=== PATIENT | female | born 2000 | race Caucasian/White ===

== ENCOUNTER 2022-04-23 23:02 | Emergency (ER) | payer OTHER, MEDICARE, MEDICAID, SELFPAY ==
[2022-04-23 23:07] VITALS: BP 134/89; PULSE 87; RESP 16; TEMP 37.3; O2SAT 98; BMI 36.5
--- NOTE | 2022-04-23 23:21 | ED_ITS ---
HPI - General Adult General Time Seen by Provider: 23:21 Date Seen: 04/23/22 Chief complaint: Abdominal Pain Stated complaint: Abdominal Pain Time Seen by Provider: 04/23/22 23:16 Source: patient Mode of arrival: ambulatory Limitations: no limitations History of Present Illness HPI narrative: Patient is a 22 year white female who has presenting with upset stomach, she has bothered her on and off over the last 4-6 weeks. She was sent home with some nausea medicine from [facility] within 48 hours, where she reports she had lab studies urinalysis and a CT scan of her abdomen which were unremarkable by her report. She has a history of behavioral disorder, manipulated behavior, and other mental health visits in the past chart and reviewing. She denies fever, chills, COVID symptoms, he dysuria, hematuria, melena, diarrhea, chest pain, shortness of breath, cough, sore throat. She states that should get waves of discomfort from her thighs up across her chest to her arms. She has not lost weight, has not had night sweats. She is in [place]. Her mother knows that she is here. Related Data Home Medications Medication Instructions Recorded Confirmed ondansetron 4 mg disintegrating mg 04/23/22 tablet Allergies Allergy/AdvReac Type Severity Reaction Status Date / Time No Known Drug Allergies Allergy Verified 04/23/22 23:12 Review of Systems Status of ROS: Reports: 10 or more systems reviewed and unremarkable except as noted in History and below [facility] Social History Smoking Status: Never smoker How often do you have a drink containing alcohol: never AUDIT-C Alcohol total score: 0 Non-prescribed substance use: denies use Exam Narrative: Exam Narrative: Objective: Patient's vital signs unremarkable, she is in no apparent distress, alert orient x3, noncyanotic Neck is supple Chest clear, pulse regular, abdomen soft benign nontender no rebound no masses Extremities good perfusion neurologic grossly nonfocal, no skin rashes no Const: Vital Signs, click to edit/add: Vital Signs - 24 hr 04/23/22 23:07 Temperature 99.1 F Pulse Rate [Left P ulse Oximeter] 87 Respiratory Rate 16 Blood Pressure [Ri ght Upper Arm] 134/89 Pulse Oximetry 98 Oxygen Delivery Me thod Room Air Course Vital Signs Vital signs: Initial Vital Signs Temperature 99.1 F 04/23/22 23:07 Temperature Source Temporal Artery Scan 04/23/22 23:07 Pulse Rate 87 04/23/22 23:07 Respiratory Rate 16 04/23/22 23:07 Blood Pressure 134/89 04/23/22 23:07 Blood Pressure Mean 104 04/23/22 23:07 Blood Pressure Position Sitting 04/23/22 23:07 Pulse Oximetry 98 04/23/22 23:07 Oxygen Delivery Method 04/23/22 23:07 Vital Signs Temperature 99.1 F 04/23/22 23:07 Pulse Rate 87 04/23/22 23:07 Respiratory Rate 16 04/23/22 23:07 Blood Pressure 134/89 04/23/22 23:07 Pulse Oximetry 98 04/23/22 23:07 Oxygen Delivery Method 04/23/22 23:07 Temperature 99.1 F 04/23/22 23:07 Pulse Rate 66 04/24/22 00:00 Respiratory Rate 16 04/24/22 00:00 Blood Pressure 130/72 04/24/22 00:00 Pulse Oximetry 99 04/24/22 00:00 Oxygen Delivery Method 04/24/22 00:00 Medical Decision Making MDM Narrative Medical decision making narrative: Patient has a complex history of emotional issues but also some abdominal symptoms over the last many weeks. She had a recent workup including lab studies CT scan. I would choose not repeated imaging study but I think repeating her lab studies may be reasonable to look at her urinalysis, electrolytes, CBC. Give her Ativan orally for her stomach and see if that helps her, certainly this could be anxiety related component as well with psychological overlay to her physical symptoms. If her labs are reassuring I think we can let her go home. She can arrange a ride home. Will need followup with regular doctor within the next few days. Addendum: The patient has very reassuring labs including a negative CRP normal white count and hemoglobin normal differential air profile is unremarkable as well. , light activity, light diet, follow-up with primary care within the next couple of days. Return to ED sooner problems or concerns. test pending as her test if this is negative she will be allowed to go home. Lab Data Labs: Lab Results 04/23/22 04/23/22 04/23/22 Range/Units 23:30 23:30 23:30 WBC 8.99 (4.50-11.00) K/uL RBC 4.38 (4.00-5.20) m/uL Hgb 11.5 L (12.0-16.0) gm/dL Hct 35.1 (33.0-51.0) % MCV 80 (80-100) fL MCH 26 (26-34) pg MCHC 33 (32-36) gm/dL RDW Coeff of Heladio 13.0 (11.5-15.5) % Plt Count 334 (140-440) K/uL Neut % (Auto) 56.5 (42.0-72.0) % Lymph % (Auto) 36.2 (20-44) % [place] % (Auto) 5.9 (0.0-11.0) % Eos % (Auto) 0.8 (0.0-7.0) % Baso % (Auto) 0.3 (0.0-3.0) % Neut # (Auto) 5.08 (1.7-7.0) K/uL Lymph # (Auto) 3.25 H (0.90-2.90) K/uL [place] # (Auto) 0.50 (0.00-0.90) K/UL Eos # (Auto) 0.07 (0.00-0.50) K/uL Baso # (Auto) 0.03 (0.00-0.30) K/uL Abs Immat Gran (auto) 0.03 (0.00-0.30) K/uL Sodium 139 (135-149) mmol/L Potassium 3.8 (3.6-5.1) mmol/L Chloride 105 (96-114) mmol/L Carbon Dioxide 23 (20-32) mmol/L BUN 9 (5-24) mg/dL Creatinine 0.7 (0.5-1.5) mg/dL Estimated Creat Clear 129.32 Estimated GFR 127 ml/min Glucose 89 (60-115) mg/dL Calcium 9.3 (8.4-10.6) mg/dL Total Bilirubin 0.5 (0.1-1.5) mg/dL Direct Bilirubin 0.1 (0.0-0.5) mg/dL AST 17 (12-35) U/L ALT 15 (4-35) U/L Alkaline Phosphatase 118 (40-150) U/L C-Reactive Protein < 0.5 L (0.5-1.0) mg/dL Total Protein 7.4 (6.0-8.3) g/dL Albumin 4.5 (3.3-5.0) g/dL Amylase 56 (18-89) U/L HCG, Qual Negative (Negative) Discharge Plan Discharge Clinical Impression: Chronic upset stomach Patient Disposition: Home w/ Parent or Adult Condition: Improved Additional Instructions: Light activity, light diet, follow-up with primary care in the next few days. Return to ED sooner problems or concerns. Activity Level: Light activity Discharge Diet: Regular Prescriptions: No Action ondansetron 4 mg tablet,disintegrating Follow Up/Referrals: Provider,Not a Local [Primary Care Provider] - Stand Alone Forms: [employer] Info Instructions
[2022-04-23] MEDS: LORazepam 1 MG TABLET PO (23:26)
[2022-04-23 23:38] LABS: Basophils Absolute Auto 0.03 K/uL (0.00-0.30); Basophils Percent Auto 0.3 % (0.0-3.0); Eosinophils Absolute Auto 0.07 K/uL (0.00-0.50); Eosinophils Percent Auto 0.8 % (0.0-7.0); Hematocrit 35.1 % (33.0-51.0); Hemoglobin* 11.5 gm/dL (12.0-16.0); Immature Granulocytes Abs Auto 0.03 K/uL (0.00-0.30); Lymphocytes Absolute Auto 3.25 K/uL (0.90-2.90); Lymphocytes Percent Auto 36.2 % (20-44); Mean Corpuscular HGB Conc 33 gm/dL (32-36); Mean Corpuscular Hemoglobin 26 pg (26-34); Mean Corpuscular Volume 80 fL (80-100); Monocytes Percent Auto 5.9 % (0.0-11.0); Neutrophils Absolute Auto 5.08 K/uL (1.7-7.0); Neutrophils Percent Auto 56.5 % (42.0-72.0); Platelet Count* 334 K/uL (140-440); Red Blood Count 4.38 m/uL (4.00-5.20); White Blood Count* 8.99 K/uL (4.50-11.00)
--- OUTSIDE RECORDS SUMMARY | 2022-04-23 23:38 | XMS_ITS | Encounter Summary ---
:2000 Author Organization [place] Address [address] [facility] [place] [address] Care Team Providers Name Role Phone Tc Jama MD Unavailable Eda Duarte MD Unavailable Mike Sherwood MD Unavailable [phone] Navid Paige MD Unavailable No Ref-Primary, Physician Primary Care Provider [phone] Alber Estrada PA-C Unavailable [phone] Reason for Visit Reason Comments Urgent Care Sore throat, cough, cannot s wallow food, chest congestion and left ear plugged which started today. Pt took Covid test today and it was negative. Encounter Details Date Type Department Care Team Description 04/03/2022 Office Visit [facility] Jairo Hackett M D Throat pain (Primary Dx); Urgent Care [facility] [address] [facility] Cough; [address] [facility] [place] [phone] Social History Tobacco Use Types Packs/Day Years Used Date Never Smoker 0 0 Smokeless Tobacco: Never Used Comments: no smokers in household Alcohol Use Standard Drinks/Week Comments No 0 (1 standard drink = 0.6 oz pure alcoho l) Alcohol Habits Answer Date Recorded How often do you have a drink containing alcohol? Never 12/07/2018 How many drinks containing alcohol do you have on a Patient refused 12/07/2018 typical day when you are drinking? How often do you have six or more drinks on one Never 12/07/2018 occasion? Comment: Not asked Social Isolation Answer Date Recorded In a typical week, how many times do you More than three marin es a week 12/07/2018 talk on the phone with family, friends, or neighbors? How often do you get together with friends Three times a wee k 12/07/2018 or relatives? How often do you attend lutheran or Never 2018 restorationist services? Do you belong to any clubs or No 12/07/2018 organizations such as lutheran groups, unions, fraternal or athletic groups, or school groups? How often do you attend meetings of the Never 12/07/2018 clubs or organizations you belong to? Are you now , , , Patient refused 12/07/2018 , never or living with a partner? Physical Activity Answer Date Recorded On average, how many days per week do you engage in moderate to 3 days 09/05/2021 strenuous exercise (like walking fast, running, jogging, dancing, swimming, biking, or other activities that cause a light or heavy sweat)? On average, how many minutes do you engage in exercise at th is 30 min 09/05/2021 level? Stress Answer Date Recorded Do you feel stress - tense, restless, nervous, or anxious, N ot at all 12/07/2018 or unable to sleep at night because your mind is troubled all the time - these days? Food Insecurity Answer Date Recorded Within the past 12 months, you worried that your food would Never true 09/05/2021 run out before you got money to buy more. Within the past 12 months, the food you bought just didn't N ever true 09/05/2021 last and you didn't have money to get more. Transportation Needs Answer Date Recorded In the past 12 months, has lack of transportation kept you f rom No 09/05/2021 medical appointments or from getting medications? In the past 12 months, has lack of transportation kept you f rom No 12/07/2018 meetings, work, or getting things needed for daily living? Housing Stability Answer Date Recorded In the last 12 months, was there a time when you were not No 09/05/2021 able to pay the mortgage or rent on time? In the last 12 months, how many places have you lived? Not a sked In the last 12 months, was there a time when you did not hav e No 09/05/[address] or slept in a fdc (including now)? Education Answer Date Recorded What is the highest level of school you have completed or 10 th grade 12/07/2018 the highest degree you have received? Sex Assigned at Date Recorded Female 09/04/2021 9:00 PM [employer] COVID-19 Exposure Response Date Recorded In the last 10 days, have you been in contact with No / Unsu re 04/03/2022 4:29 PM CDT someone who was confirmed or suspected to have Coronavirus/COVID-19? documented as of this encounter Last Filed Vital Signs Vital Sign Reading Time Taken Comments Blood Pressure 136/84 04/03/2022 4:41 PM CDT Pulse 99 04/03/2022 4:41 PM CDT Temperature 36.9 ??C (98.4 ??F) 04/03/2022 4:41 PM CDT Respiratory Rate - - Oxygen Saturation 98% 04/03/2022 4:41 PM CDT Inhaled Oxygen Concentration - - Weight - - Height - - Body Mass Index - - documented in this encounter Patient Instructions Patient InstructionsJairo Hackett MD - 04/03/2022 4:30 PM CDT Okay to take tylenol and ibuprofen for discomfort Take full course of Augmentin for bronchitis/lower respiratory tract infection and sinus infection Okay to take tessalon perles to help with cough AttachmentsThe following attachments cannot be sent through Care Everywhere. Bronchitis, Antibiotic Treatment (Adult) (Congolese)documented in this encounter Progress Notes Jairo Hackett MD - 04/03/2022 4:30 PM CDT SUBJECTIVE: Mahi Faye is a 22 year old female presenting with a chief complaint of sore throat, cough, congestion and left ear plugged. Unable to swallow food. Fever started today. Onset of symptoms was 2 weeks. Course of illness is worsening. Severity moderate Current and Associated symptoms: cough Treatment measures tried include Tylenol/Ibuprofen, Fluids and Rest. Predisposing factors include None. Home rapid COVID test negative today Completed COVID vaccinations, boosted Has been sick for almost 2 weeks, cough persisting. Developed fever today. Past Medical History: Diagnosis Date ??? ADHD (attention deficit hyperactivity disorder) ??? 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 Obesity due to excess calories ??? Seasonal allergies ??? Tonsillar abscess, S/P drainage 07/16/2014 Current Outpatient Medications Medication Sig Dispense Refill ??? Condoms - Female (FC FEMALE CONDOM) MISC Use with every intercourse not to be use with a male condom 5 each ??? Melatonin 10 MG TABS tablet Take 10 mg by mouth nightly as needed for sleep ??? QUEtiapine (SEROQUEL) 300 MG tablet Take 300 mg by mouth At Bedtime ??? QUEtiapine (SEROQUEL) 50 MG tablet Take 50 mg by mouth every 4 hours as needed Social History Tobacco Use ??? Smoking status: Never Smoker ??? Smokeless tobacco: Never Used ??? Tobacco comment: no smokers in household Substance Use Topics ??? Alcohol use: No ROS: Review of systems negative except as stated above. OBJECTIVE: BP 136/84 (BP Location: Right arm, Patient Position: Sitting, Cuff Size: Adult Large) Pulse 99 Temp 98.4 ??F (36.9 ??C) (Oral) SpO2 98% GENERAL APPEARANCE: healthy, alert and no distress EYES: EOMI, PERRL, conjunctiva clear HENT: ear canals and TM's normal. Nose and mouth without ulcers, erythema or lesions RESP: lungs clear to auscultation - no rales, rhonchi or wheezes CV: regular rates and rhythm, normal S1 S2, no murmur noted PSYCH: mentation appears normal and affect normal/bright Results for orders placed or performed in visit on 04/03/22 Streptococcus A Rapid Screen w/Reflex to PCR Status: Normal Specimen: Throat; Swab Result Value Ref Range Group A Strep antigen Negative Negative Influenza A & B Antigen Status: Normal Specimen: Nasopharyngeal; Swab Result Value Ref Range Influenza A antigen Negative Negative Influenza B antigen Negative Negative Narrative Test results must be correlated with clinical data. If necessary, results should be confirmed by a molecular assay or viral culture. ASSESSMENT/PLAN: (R07.0) Throat pain (primary encounter diagnosis) Plan: Streptococcus A Rapid Screen w/Reflex to PCR, Influenza A & B Antigen, Group A Streptococcus PCR Throat Swab (R05.9) Cough Plan: Influenza A & B Antigen, benzonatate (TESSALON) 200 MG capsule (J22) Lower respiratory tract infection Comment: prolonged symptoms Plan: amoxicillin-clavulanate (AUGMENTIN) 875-125 MG tablet Reassurance given, reviewed symptomatic treatment with tylenol, ibuprofen, plenty of fluids and rest. RX Augmentin given for lower respiratory tract infection and mild sinus infection due to prolong and worsening symptoms. Reviewed that Augmentin will already have coverage for strep infection (throat c ulture pending). RX tessalon perles given for cough Follow up with primary provider if no improvement of symptoms in 1 week Jairo Hackett MD April 03, 2022 5:45 PM documented in this encounter Plan of Treatment Not on filedocumented as of this encounter Procedures Procedure Name Priority Date/Time Associated Comments Diagnosis INFLUENZA A/B ANTIGEN Routine 04/03/2022 4:46 PM Throat pain Results for this CDT Cough procedure are i n the results section. STREPTOCOCCUS A RAPID Routine 04/03/2022 4:32 PM Throat pain Results for this SCREEN W REFELX TO PCR CDT proce dure are in the results section. GROUP A STREPTOCOCCUS Routine 04/03/2022 4:32 PM Throat pain Results for this PCR THROAT SWAB CDT procedure ar e in the results section. documented in this encounter Results Influenza A & B Antigen (04/03/2022 4:46 PM CDT) Analysis Performed At Patho logist Time Signature Influenza A Negative Negative 04/03/2022 [facility] antigen 5:22 PM CDT Influenza B Negative Negative 04/03/2022 [facility] antigen 5:22 PM CDT Specimen Anatomical Location / Collection Method Collection Marin e Received Time (Source) Laterality / Volume Swab NASOPHARYNGEAL Non-blood 04/03/2022 4:46 04/03/2022 5:03 STRUCTURE / Unknown Collection / PM CDT PM CDT Unknown Narrative [facility] - 04/03/2022 5:22 PM CDT Test results must be correlated with cli nical data. If necessary, results should be confirmed by a molecular assay or viral culture. Jairo Hackett MD LAB - MICRO GENERAL ORDERABL ES Performing Organization Address [facility] Phon e Number [place] [address] [address] [facility] Lab (no room number, 1st floor of clinic) [place] [address], [facility] [address] [facility] Lab (no room number, 1st floor of clinic) Group A Streptococcus PCR Throat Swab (04/03/2022 4:32 PM CDT) [facility] Method Time Signature Group A strep Not Detected Not Detected 04/04/2022 [facility] by PCR 6:14 PM CDT LABORATORY Specimen Anatomical Collection Method Collection Time Receive d Time (Source) Location / / Volume Laterality Swab STRUCTURE OF Non-blood 04/03/2022 4:32 PM 2 5:15 ANTERIOR PORTION Collection / CDT PM CDT OF NECK / Unknown Unknown Narrative [facility] - 04/04/2022 6:14 PM C DT The Xpert Xpress Strep A test, performed on the [employer]?? Instrument Systems, is a rapid, qualitative in vitro diagnostic t est for the detection of Streptococcus pyogenes (Group A ? - hemolytic Streptococcus, Strep A) in thr oat swab specimens from patients with signs and symptoms of pharyngitis. The Xpert X press Strep A test can be used as an aid in the diagnosis of Group A Streptococcal p haryngitis. The assay is not intended to monitor treatment for Group A Streptococ cus infections. The Xpert Xpress Strep A test utilizes an automated real-time polymera se chain reaction (PCR) to detect Streptococcus pyogenes DNA. Jairo Hackett MD LAB - MICRO GENERAL ORDERABL ES Performing Organization Address [facility] Phon e Number [facility] [place] [address] Diag. Lab [address] [facility], [address] Streptococcus A Rapid Screen w/Reflex to PCR (04/03/2022 4:32 PM CDT) Analysis Performed At Patho logist Time Signature Group A Strep Negative Negative 04/03/2022 [facility] antigen 5:15 PM CDT Specimen Anatomical Collection Method Collection Time Receive d Time (Source) Location / / Volume Laterality Swab STRUCTURE OF Non-blood 04/03/2022 4:32 PM 5:03 ANTERIOR PORTION Collection / CDT PM CDT OF NECK / Unknown Unknown Jairo Hackett MD LAB - MICRO GENERAL ORDERABL ES Performing Organization Address City/State/ZIP Code Phon [place] [address] [address] [facility] Lab (no room number, 1st floor of clinic) [place] [address], [facility] [address] [facility] Lab (no room number, 1st floor of clinic) documented in this encounter Visit Diagnoses Diagnosis Throat pain - Primary Cough Lower respiratory tract infection Other diseases of respiratory system, no t elsewhere classified documented in this encounter Additional Health Concerns Assessment Noted Time PHQ-9 Depression Total Score: 6 09/05/2021 1:00 PM [employer] documented as of this encounter Care Teams [employer] Consultant Relationship Specialty Start Date End Date No Ref-Primary, PCP - General 08/23/21 Physician Tc Jama MD Pediatric Surgery 02/14/[address] [place] [address] Eda Duarte Assigned Surgical Provider 10/02/20 MD Alex [address] [facility] [address] [place] [address] Mike Sherwood Assigned Sleep Provider 01/31/21 MD Navid [address] [place] [address] Navid Paige, Assigned Musculoskeletal 03/16/21 MD Provider [address] [place] [address] Alber Estrada Assigned PCP 09/07/21 KARIN Lagunas [address] [place] [address] documented as of this encounter
--- OUTSIDE RECORDS SUMMARY | 2022-04-23 23:38 | XMS_ITS | Encounter Summary ---
:2000 Author Organization [place] Address [address] [place] [address] Care Team Providers Name Role Phone Tc Jama MD Unavailable Eda Duarte MD Unavailable Mike Sherwood MD Unavailable [phone] Navid Paige MD Unavailable No Ref-Primary, Physician Primary Care Provider [phone] Alber Estrada PA-C Unavailable [phone] Encounter Details Date Type Department Care Team Description 04/21/2022 Travel Social History Tobacco Use Types Packs/Day Years [...] or relatives? How often do you attend orthodoxy or Never 2018 judaism services? Do you belong to any clubs or No 12/07/2018 organizations such as orthodoxy groups, unions, fraternal or athletic groups, or [...] place to sleep or slept in a senior living (including now)? Education Answer Date Recorded What is the highest level of school you have completed or 10 th grade 12/07/2018 the highest degree you have received? Sex Assigned at Date Recorded Female 09/04/2021 9:00 PM [employer] COVID-19 Exposure Response Date Recorded In the last 10 days, have you been in contact with No / Unsu re 04/21/2022 7:53 PM CDT someone who was confirmed or suspected to have Coronavirus/COVID-19? documented as of this encounter Plan of Treatment Not on filedocumented as of this encounter Visit Diagnoses Not on filedocumented in this encounter Additional Health Concerns Infection Onset Date Last Indicated Resolved Time Rule Out COVID-19 04/21/2022 04/21/2022 04/21/2022 8:5 7 PM CDT Assessment Noted Time PHQ-9 Depression Total Score: 6 09/05/2021 1:00 PM [employer] documented as of this encounter Care Teams Custodial Worker Relationship Specialty Start Date End Date No Ref-Primary, PCP - General 08/23/21 Physician Tc Jama MD Pediatric Surgery 02/14/[address] [place] [address] Eda Duarte Assigned Surgical Provider 10/02/20 MD Alex [address] [facility] [address] [place] [address] Mike Sherwood Assigned Sleep Provider 01/31/21 MD Navid [address] [place] [address] Navid Paige, Assigned Musculoskeletal 03/16/21 MD Provider [address] [place] [address] Alber Estrada Assigned PCP 09/07/21 KARIN Lagunas [address] [address] [place] [address] documented as of this encounter
--- OUTSIDE RECORDS SUMMARY | 2022-04-23 23:38 | XMS_ITS | Clinical Summary ---
:2002 Author Organization [facility] Address [address] [place] [address] Care Team Providers Name Role Phone Tc Jama MD Unavailable Eda Duarte MD Unavailable Mike Sherwood MD Unavailable [phone] Navid Paige MD Unavailable No Ref-Primary, Physician Primary Care Provider Alber Estrada PA-C Unavailable [phone] Allergies Active Allergy Reactions Severity Noted Date Comments No Known Drug Allergies 08/13/2009 Medications Medication Sig Dispensed Refills Start Date End Date Status QUEtiapine Take 300 mg by 0 Acti ve (SEROQUEL) 300 MG mouth At Bedtime tablet Melatonin 10 MG Take 10 mg by 0 Active TABS tablet mouth nightly as needed for sleep QUEtiapine Take 50 mg by 0 Activ e (SEROQUEL) 50 MG mouth every 4 tablet hours as needed Condoms - Female Use with every 5 each 11 09/05/2021 Active (FC FEMALE CONDOM) intercourse not to MISCIndications: be use with a male Annual visit for condom general adult medical examination with abnormal findings benzonatate Take 1 capsule 30 capsule 0 04/03/2022 A ctive (TESSALON) 200 MG (200 mg) by mouth capsuleIndications 3 times daily as : Cough needed for cough ondansetron Take 1 tablet (4 10 tablet 0 04/22/2022 04/25/2022 Active (ZOFRAN ODT) 4 MG mg) by mouth every ODT tab 8 hours as needed for nausea or vomiting amoxicillin-clavul Take 1 tablet by 20 tablet 0 04/03/2022 anate (AUGMENTIN) mouth 2 times 875-125 MG daily for 10 days tabletIndications: Lower respiratory tract infection Hospital, Clinic, or Other Ordered Dose Route Frequency Start Date End Date Status Facility Administered Medication etonogestrel (NEXPLANON) 68 mg SD ONCE 07/16/2020 Active subdermal implant 68 mgIndications: Insertion of implantable subdermal contraceptive Active Problems Patient Care Coordination Note Formatting of this note might be differe nt from the original. 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 Nocturia 09/17/2020 Snores 09/17/2020 Moderate major depression 06/26/2020 Suicidal ideations 03/15/2020 S/P surgical removal of pilonidal cyst 01/09/2020 Pilonidal disease 12/20/2019 Overview: Added automatically from request for tania angie [id number] Pilonidal sinus 11/23/2019 Overview: Added automatically from request for tania angie [id number] Slow transit constipation 11/16/2019 Mild anemia 09/28/2018 JANETH (generalized anxiety disorder) 09/14/2016 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 06/03/2011 Encounters Date Type Specialty Care Team Description 04/21/2022 - Emergency EMERGENCY MEDICINE Madhu Hall sea and vomiting, unspecified vomiting type; 04/22/2022 MD Lisy Abdominal pain, epigastric SalRemberto temple MD 04/21/2022 Travel 04/03/2022 Office Visit Urgent Care Jairo Hackett MD Throat pain (Primary Dx); Cough; Lower respirato ry tract infection 04/03/2022 Travel from Last 3 Months Immunizations Name Administration Dates Next Due Comvax (HIB/HepB) 03/26/2003, 2002, 2002 DTAP (<7y) 03/29/2007, 09/24/2003, 2002, 2002, 2002 [id number] Novel Flu- Nasal 06/04/2009 HEPA 09/27/2006, 03/30/2006 HPV 10/21/2015, 05/28/2015, 03/11/2015 Influenza (H1N1) 07/03/2009 Influenza (IIV3) PF 05/05/2018, 05/04/2011, 04/11/2010, 06/10/2009, 05/22/2008 Influenza Intranasal Vaccine 05/03/2012 Influenza Intranasal Vaccine 4 valent 05/28/2015, 05/10/2014 , 05/05/2013 (FluMist) Influenza Vaccine IM > 6 months Valent 06/06/2021, 0, 04/26/2019, IIV4 (Alfuria,Fluzone) 03/30/2016 Influenza,INJ,MDCK,PF,Quad 05/05/2018 >6mo(Flucelvax-RMG) MMR 03/29/2007, 03/26/2003 Meningococcal (Menactra??) 04/26/2019, 01/18/2014 Pneumo Conj 13-V (2010&after) 06/02/2011 Pneumococcal (PCV 7) 2002, 2002, 2002 Poliovirus, inactivated (IPV) 03/29/2007, 2002, 2002, 2002 TDAP Vaccine (Adacel) 01/18/2014 Varicella 03/29/2007, 03/26/2003 Family History Medical History Relation Comments No Known Problems Brother Genetic Disorder Father ALS Hypertension Father from ALS and had a hx of anxiety Hypertension Mother Anesthesia Reaction Other Negative Cancer Paternal Grandfather lung Relation Status Comments Brother Alive Father Alive Mother Alive Other Paternal Grandfather Sister Social History Tobacco Use Types Packs/Day Years Used Date Never Smoker 0 0 Smokeless Tobacco: Never Used Tobacco Cessation: Counseling Given: Yes Comments: no smokers in household Alcohol Use [...] or relatives? How often do you attend bahai or Never 2018 taoism services? Do you belong to any clubs or No 12/07/2018 organizations such as bahai groups, unions, fraternal or athletic groups, or [...] place to sleep or slept in a halfway (including now)? Education Answer Date Recorded What is the highest level of school you have completed or 10 th grade 12/07/2018 the highest degree you have received? Sex Assigned at Date Recorded Female 09/04/2021 9:00 PM [employer] COVID-19 Exposure Response Date Recorded In the last 10 days, have you been in contact with No / Unsu re 04/21/2022 7:53 PM CDT someone who was confirmed or suspected to have Coronavirus/COVID-19? Last Filed Vital Signs Vital Sign Reading Time Taken Comments Blood Pressure 133/89 04/22/2022 1:45 AM CDT Pulse 84 04/22/2022 1:45 AM CDT Temperature 36.2 ??C (97.1 ??F) 04/21/2022 8:05 PM CDT Respiratory Rate 18 04/21/2022 9:15 PM CDT Oxygen Saturation 99% 04/22/2022 1:45 AM CDT Inhaled Oxygen Concentration - - Weight 104 kg (229 lb 4.5 oz) 04/21/2022 8:05 PM CDT Height 172.1 cm (5' 7.75) 09/05/2021 10:11 AM [employer] Body Mass Index 35.12 09/05/2021 10:11 AM [employer] Plan of Treatment Health Maintenance Due Date Last Done Comments DEPRESSION ACTION PLAN 2002 COVID-19 Vaccine (4 - 09/02/2021 07/08/2021, 12/18/2020, Booster for Moderna series) 11/20/2020 PHQ-9 03/05/2022 09/05/2021, 06/26/2020, 11/13/2019, Additional history exists INFLUENZA VACCINE (#1) 2022 06/06/2021, 04/20/2020, 04/26/2019, Additional history exists ANNUAL REVIEW OF HM ORDERS 09/05/2022 09/05/2021 CHLAMYDIA SCREENING 09/05/2022 09/05/2021 MEDICARE ANNUAL WELLNESS 09/05/2022 09/05/2021, 06/26/2020, VISIT 04/26/2019, Additional history exists DTAP/TDAP/TD IMMUNIZATION 01/19/2024 01/18/2014, 03/29/2007 , (7 - Td or Tdap) 09/24/2003, Additional history exists ADVANCE CARE PLANNING 05/28/2025 05/28/2020, 04/09/2020 HEPATITIS B IMMUNIZATION Completed 03/26/2003, 2002, 2002 IPV IMMUNIZATION Completed 03/29/2007, 2002, 2002, Additional history exists Pneumococcal Vaccine: Aged Out 06/02/2011, 2002, No longer eligible Pediatrics (0 to 5 Years) 2002, Additional based on patient's age and At-Risk Patients (6 to history exists to co mplete this topic 64 Years) HPV IMMUNIZATION Completed 10/21/2015, 05/28/2015, 03/11/2015 MENINGITIS IMMUNIZATION Completed 04/26/2019, 01/18/2014 HEPATITIS C SCREENING Completed 09/05/2021 HIV SCREENING Completed 09/05/2021 Procedures Procedure Name Priority Date/Time Associated Comments Diagnosis CT ABDOMEN PELVIS W STAT 04/22/2022 2:06 AM Re sults for this CONTRAST CDT procedure are i n the results section. US ABDOMEN LIMITED STAT 04/21/2022 9:51 PM Res ults for this CDT procedure are i n the results section. URINE CULTURE STAT 04/21/2022 9:06 PM Results for this CDT procedure are i n the results section. ROUTINE UA WITH STAT 04/21/2022 9:06 PM Result s for this MICROSCOPIC REFLEX TO CDT proced ure are in CULTURE the results section. EXTRA PURPLE TOP TUBE STAT 04/21/2022 9:04 PM Results for this CDT procedure are i n the results section. EXTRA GREEN TOP STAT 04/21/2022 9:04 PM Result s for this (LITHIUM HEPARIN) TUBE CDT proce dure are in the results section. EXTRA BLUE TOP TUBE STAT 04/21/2022 9:04 PM Re sults for this CDT procedure are i n the results section. LIPASE STAT 04/21/2022 9:04 PM Results f or this CDT procedure are i n the results section. COMPREHENSIVE STAT 04/21/2022 9:04 PM Results for this METABOLIC PANEL CDT procedure ar e in the results section. CBC WITH PLATELETS STAT 04/21/2022 9:04 PM Res ults for this CDT procedure are i n the results section. HCG QUALITATIVE STAT 04/21/2022 9:04 PM Result s for this CDT procedure are i n the results section. EXTRA TUBE STAT 04/21/2022 9:04 PM Results f or this CDT procedure are i n the results section. INFLUENZA A/B & STAT 04/21/2022 8:12 PM Result s for this SARS-COV2 PCR CDT procedure are in MULTIPLEX the results section. INFLUENZA A/B ANTIGEN Routine 04/03/2022 4:46 PM Throat pain Results for this CDT Cough procedure are i n the results section. GROUP A STREPTOCOCCUS Routine 04/03/2022 4:32 PM Throat pain Results for this PCR THROAT SWAB CDT procedure ar e in the results section. STREPTOCOCCUS A RAPID Routine 04/03/2022 4:32 PM Throat pain Results for this SCREEN W REFELX TO PCR CDT proce dure are in the results section. from Last [address] Abdomen Pelvis w Contrast (04/22/2022 2:06 AM CDT) Anatomical Region Laterality Modality Abdomen/Pelvis, SUBRAD CT BODY, UMP CT ABDOMEN PELVIS, Computed Tomography RAD CT Specimen (Source) Anatomical Collection Method Collection Time Re ceived Time Location / / Volume Laterality 04/22/2022 2:06 AM CDT Impressions 04/22/2022 2:55 AM CDT IMPRESSION: 1. ??No evidence for an etiology for the patient's epigastric abdominal pain. 2. ??Hepatic steatosis. 3. ??No bowel obstruction or overt infla mmatory change. 4. ??Appendix unremarkable. Narrative 04/22/2022 2:55 AM CDT EXAM: CT ABDOMEN PELVIS W CONTRAST LOCATION: [facility] DATE/TIME: 04/22/2022 2:06 AM INDICATION: Upper abdominal pain and vom iting. COMPARISON: None. TECHNIQUE: CT scan of the abdomen and pe lvis was performed following injection of IV contrast. Multiplanar reformats were obtained. Dose reduction techniques were used. CONTRAST: 90 mL Isovue 370 FINDINGS: LOWER CHEST: Normal. HEPATOBILIARY: Hepatic steatosis. No leonila cified gallstones or biliary dilatation. PANCREAS: Normal. SPLEEN: Normal. ADRENAL GLANDS: Normal. KIDNEYS/BLADDER: Symmetric renal enhance ment. Nonobstructing 2 mm calculus right lower renal pole. No urinary collecting system dilatation. Bladder unremarkable. BOWEL: No obstruction or inflammatory ch esmer. Appendix unremarkable. LYMPH NODES: No lymphadenopathy. VASCULATURE: Unremarkable. PELVIC ORGANS: Unremarkable. No free flu id. MUSCULOSKELETAL: Unremarkable. Procedure Note Ritesh Guzman MD - 04/22/2022Formatt ing of this note might be different from the original. EXAM: CT ABDOMEN PELVIS W CONTRAST LOCATION: [facility] DATE/TIME: 04/22/2022 2:06 AM INDICATION: Upper abdominal pain and vom iting. COMPARISON: None. TECHNIQUE: CT scan of the abdomen and pe lvis was performed following injection of IV contrast. Multiplanar reformats were obtained. Dose reduction techniques were used. CONTRAST: 90 mL Isovue 370 FINDINGS: LOWER CHEST: Normal. HEPATOBILIARY: Hepatic steatosis. No leonila cified gallstones or biliary dilatation. PANCREAS: Normal. SPLEEN: Normal. ADRENAL GLANDS: Normal. KIDNEYS/BLADDER: Symmetric renal enhance ment. Nonobstructing 2 mm calculus right lower renal pole. No urinary collecting system dilatation. Bladder unremarkable. BOWEL: No obstruction or inflammatory ch esmer. Appendix unremarkable. LYMPH NODES: No lymphadenopathy. VASCULATURE: Unremarkable. PELVIC ORGANS: Unremarkable. No free flu id. MUSCULOSKELETAL: Unremarkable. IMPRESSION: 1. No evidence for an etiology for the p atient's epigastric abdominal pain. 2. Hepatic steatosis. 3. No bowel obstruction or overt inflamm atory change. 4. Appendix unremarkable. Remberto Chand MD IMG CT ORDERABLES Abdomen US, limited (RUQ only) (04/21/2022 9:51 PM CDT) Anatomical Region Laterality Modality Abdomen/Pelvis Ultrasound Specimen (Source) Anatomical Collection Method Collection Time Re ceived Time Location / / Volume Laterality 04/21/2022 9:51 PM CDT Impressions 04/21/2022 9:55 PM CDT IMPRESSION: 1. ??Moderate hepatic steatosis. 2. ??No cholelithiasis or biliary dilata tion. Narrative 04/21/2022 9:55 PM CDT EXAM: US ABDOMEN LIMITED LOCATION: [facility] DATE/TIME: 04/21/2022 9:51 PM INDICATION: RUQ pain COMPARISON: 06/29/2020 TECHNIQUE: Limited abdominal ultrasound. FINDINGS: GALLBLADDER: No gallstones, wall thicken ing, or pericholecystic fluid. Negative sonographic Srinivasan's sign. BILE DUCTS: No biliary dilatation. The c ommon duct measures 3 mm. LIVER: Echogenic parenchyma with smooth contour. No focal mass. RIGHT KIDNEY: No hydronephrosis. PANCREAS: The visualized portions are no rmal. No ascites. Procedure Note Fredrick Leiva DO - 04/21/2022Forma tting of this note might be different from the original. EXAM: US ABDOMEN LIMITED LOCATION: [facility] DATE/TIME: 04/21/2022 9:51 PM INDICATION: RUQ pain COMPARISON: 06/29/2020 TECHNIQUE: Limited abdominal ultrasound. FINDINGS: GALLBLADDER: No gallstones, wall thicken ing, or pericholecystic fluid. Negative sonographic Srinivasan's sign. BILE DUCTS: No biliary dilatation. The c ommon duct measures 3 mm. LIVER: Echogenic parenchyma with smooth contour. No focal mass. RIGHT KIDNEY: No hydronephrosis. PANCREAS: The visualized portions are no rmal. No ascites. IMPRESSION: 1. Moderate hepatic steatosis. 2. No cholelithiasis or biliary dilatati on. Madhu Hall MD IMG US ORDERABLES (ABNORMAL) UA with Microscopic reflex to Culture (04/21/2022 9:06 PM CDT) [facility] Method Time Signature Color Urine Yellow Colorless, 04/21/2022 LABORATORY Straw, 9:34 PM CDT Light Yellow, Yellow Appearance Urine Clear Clear 04/21/2022 RH LABORATOR Y 9:34 PM CDT Glucose Urine Negative Negative 04/21/2022 LABORATORY mg/dL 9:34 PM CDT Bilirubin Urine Negative Negative 04/21/2022 RH LABORATORY 9:34 PM CDT Ketones Urine Negative Negative 04/21/2022 LABORATORY mg/dL 9:34 PM CDT Specific [place] 1.031 1.003 - 04/21/2022 LABORATOR Y Urine 1.035 9:34 PM CDT Blood Urine Trace (A) Negative 04/21/2022 LABORATORY 9:34 PM CDT pH Urine 5.5 5.0 - 7.0 04/21/2022 LABORATORY 9:34 PM CDT Protein Albumin 20 (A) Negative 04/21/2022 LABORATORY Urine mg/dL 9:34 PM CDT Urobilinogen Normal Normal, 2.0 04/21/2022 LABORATORY Urine mg/dL 9:34 PM CDT Nitrite Urine Negative Negative 04/21/2022 LABORATORY 9:34 PM CDT Leukocyte Large (A) Negative 04/21/2022 LABORATORY Esterase Urine 9:34 PM CDT Bacteria Urine Few (A) None Seen 04/21/2022 LABORATORY /HPF 9:34 PM CDT Mucus Urine Present (A) None Seen 04/21/2022 LABORATORY /LPF 9:34 PM CDT Calcium Oxalate Few (A) None Seen 04/21/2022 LABORATORY Crystals Urine /HPF 9:34 PM CDT RBC Urine 15 (H) <=2 /HPF 04/21/2022 RH LABORATORY 9:34 PM CDT WBC Urine 23 (H) <=5 /HPF 04/21/2022 LABORATORY 9:34 PM CDT Squamous 1 <=1 /HPF 04/21/2022 LABORATORY Epithelials 9:34 PM CDT Urine Hyaline Casts 1 <=2 /LPF 04/21/2022 LABORATORY Urine 9:34 PM CDT Specimen Anatomical Collection Method Collection Time Receive d Time (Source) Location / / Volume Laterality Urine MID-STREAM URINE Non-blood 04/21/2022 9:06 PM 04/21 9:26 SPECIMEN / Unknown Collection / CDT PM CDT Unknown Narrative LABORATORY - 04/21/2022 9:34 PM CDT Urine Culture ordered based on laborator y criteria Madhu Hall MD LAB - URINE ORDERABLES Performing Organization Address City/[facility]/ZIP Code Phon [place] [phone] Care Lab [address] Lab (1st floor, no room number) Urine Culture (04/21/2022 9:06 PM CDT) [facility] gist Method Time Signature Culture 10,000-50,000 PADMINI 04/23/2022 UU IDD CFU/mL Mixture 4:52 AM CDT LABORATORY of urogenital joseph Specimen Anatomical Collection Method Collection Time Receive d Time (Source) Location / / Volume Laterality Urine MID-STREAM URINE Non-blood 04/21/2022 9:06 PM 04/21 9:34 SPECIMEN / Unknown Collection / CDT PM CDT Unknown Madhu Hall MD LAB - MICRO GENERAL ORDERABL ES Performing Organization Address City/[facility]/ZIP Code Phon e Number UU IDD LABORATORY [facility] [place] [address] Diag. Lab [address] [facility], Room [address] Extra Purple Top Tube (04/21/2022 9:04 PM CDT) P athologist Signature Hold Specimen JIC 04/21/2022 LABORATORY 10:33 PM CDT Specimen Anatomical Collection Method / Collection Time Recei bibiana Time (Source) Location / Volume Laterality Blood STRUCTURE OF RIGHT Venipuncture / 04/21/2022 9:04 10/10/2021 9:20 UPPER LIMB / Unknown PM CDT PM CDT Unknown Madhu Hall MD LAB - BLOOD ORDERABLES Performing Organization Address City/[facility]/ZIP Code [place] [phone] Care Lab [address] Lab (1st floor, no room number) Extra Green Top ([place] Heparin) Tube (04/21/2022 9:04 PM CDT) athologist Signature Hold Specimen JIC 04/21/2022 RH LABORATORY 10:33 PM CDT Specimen Anatomical Collection Method / Collection Time Recei bibiana Time (Source) Location / Volume Laterality Blood STRUCTURE OF RIGHT Venipuncture / 04/21/2022 9:04 10/0 10/2021 9:20 UPPER LIMB / Unknown PM CDT PM CDT Unknown Madhu Hall MD LAB - BLOOD ORDERABLES Performing Organization Address City/State/ZIP Code [place] [address] Care Lab [address] Lab (1st floor, no room number) Extra Blue Top Tube (04/21/2022 9:04 PM CDT) athologist Signature Hold Specimen JI 04/21/2022 RH LABORATORY 10:33 PM CDT Specimen Anatomical Collection Method / Collection Time Recei bibiana Time (Source) Location / Volume Laterality Blood STRUCTURE OF RIGHT Venipuncture / 04/21/2022 9:04 10/0 10/2021 9:20 UPPER LIMB / Unknown PM CDT PM CDT Unknown Madhu Hall MD LAB - BLOOD ORDERABLES Performing Organization Address City/State/ZIP Code [place] [address] Care Lab [address] Lab (1st floor, no room number) Lipase (04/21/2022 9:04 PM CDT) athologist Signature Lipase 16 13 - 60 U/L 04/21/2022 RH LABORATORY 9:48 PM CDT Specimen Anatomical Collection Method / Collection Time Recei bibiana Time (Source) Location / Volume Laterality Blood STRUCTURE OF RIGHT Venipuncture / 04/21/2022 9:04 10/0 10/2021 9:20 UPPER LIMB / Unknown PM CDT PM CDT Unknown Madhu Hall MD LAB - BLOOD ORDERABLES Performing Organization Address City/[facility]/ZIP Code [place] [address] Care Lab [address] Lab (1st floor, no room number) HCG QUALitative (blood) (04/21/2022 9:04 PM CDT) [facility] Method Time Signature hCG Serum Negative Negative PADMINI 04/21/2022 RH LABORATORY Qualitative 10:28 PM CDT Comment: This test is for screening purp oses. Results should be interpreted along with the clinical picture. Confirmation testing is available if warranted by ordering [id number], HCG Quantitative . Specimen Anatomical Collection Method / Collection Time Recei bibiana Time (Source) Location / Volume Laterality Blood STRUCTURE OF RIGHT Venipuncture / 04/21/2022 9:04 10/10/2021 9:20 UPPER LIMB / Unknown PM CDT PM CDT Unknown Madhu Hall MD LAB - BLOOD ORDERABLES Performing Organization Address [facility] [place] [address] Care Lab [address] Lab (1st floor, no room number) (ABNORMAL) Comprehensive metabolic panel (04/21/2022 9:04 PM CDT) [facility] Method Time Signature Sodium 140 136 - 145 04/21/2022 RH LABORATORY mmol/L 9:48 PM CDT Potassium 3.9 3.4 - 5.3 04/21/2022 RH LABORATORY mmol/L 9:48 PM CDT Chloride 104 98 - 107 04/21/2022 RH LABORATORY mmol/L 9:48 PM CDT Carbon Dioxide 25 22 - 29 04/21/2022 LABORATORY (CO2) mmol/L 9:48 PM CDT Anion Gap 11 7 - 15 04/21/2022 RH LABORATORY mmol/L 9:48 PM CDT Urea Nitrogen 7.8 6.0 - 20.0 04/21/2022 RH LABORATORY mg/dL 9:48 PM CDT Creatinine 0.78 0.51 - 04/21/2022 RH LABORATORY 0.95 mg/dL 9:48 PM CDT Calcium 9.6 8.6 - 10.0 04/21/2022 RH LABORATORY mg/dL 9:48 PM CDT Glucose 98 70 - 99 04/21/2022 RH LABORATORY mg/dL 9:48 PM CDT Alkaline 123 (H) 35 - 104 04/21/2022 LABORATORY Phosphatase U/L 9:48 PM CDT AST 14 10 - 35 04/21/2022 RH LABORATORY U/L 9:48 PM CDT ALT 14 10 - 35 04/21/2022 LABORATORY U/L 9:48 PM CDT Protein Total 7.1 6.4 - 8.3 04/21/2022 RH LABORATORY g/dL 9:48 PM CDT Albumin 4.3 3.5 - 5.2 04/21/2022 RH LABORATORY g/dL 9:48 PM CDT Bilirubin Total 0.2 <=1.2 04/21/2022 LABORATORY mg/dL 9:48 PM CDT GFR Estimate >90 >60 04/21/2022 LABORATORY mL/min/1.7 9:48 PM CDT 3m2 Comment: Effective July 08, 2021 eGF Rcr in adults is calculated using the 2020 CKD-EPI creatinine equation which includ es age and gender (Travis et al., NEJM, DOI: 10.1056/VUUHcx3430203) Specimen Anatomical Collection Method / Collection Time Recei bibiana Time (Source) Location / Volume Laterality Blood STRUCTURE OF RIGHT Venipuncture / 04/21/2022 9:04 10/0 10/2021 9:20 UPPER LIMB / Unknown PM CDT PM CDT Unknown Madhu Hall MD LAB - BLOOD ORDERABLES Performing Organization Address City/State/ZIP Code [place] [address] Care Lab [address] Lab (1st floor, no room number) (ABNORMAL) CBC (platelets, no diff) (04/21/2022 9:04 PM CDT) [facility] Method Time Signature WBC Count 9.7 4.0 - 11.0 04/21/2022 RH LABORATORY 10e3/uL 9:23 PM CDT RBC Count 4.45 3.80 - 04/21/2022 RH LABORATORY 5.20 9:23 PM CDT 10e6/uL Hemoglobin 11.4 (L) 11.7 - 04/21/2022 RH LABORATORY 15.7 g/dL 9:23 PM CDT Hematocrit 36.2 35.0 - 04/21/2022 RH LABORATORY 47.0 % 9:23 PM CDT MCV 81 78 - 100 04/21/2022 RH LABORATORY fL 9:23 PM CDT MCH 25.6 (L) 26.5 - 04/21/2022 RH LABORATORY 33.0 pg 9:23 PM CDT MCHC 31.5 31.5 - 04/21/2022 RH LABORATORY 36.5 g/dL 9:23 PM CDT RDW 13.3 10.0 - 04/21/2022 RH LABORATORY 15.0 % 9:23 PM CDT Platelet Count 360 150 - 450 04/21/2022 RH LABORATORY 10e3/uL 9:23 PM CDT Specimen Anatomical Collection Method / Collection Time Recei bibiana Time (Source) Location / Volume Laterality Blood STRUCTURE OF RIGHT Venipuncture / 04/21/2022 9:04 10/0 10/2021 9:20 UPPER LIMB / Unknown PM CDT PM CDT Unknown Madhu Hall MD LAB - BLOOD ORDERABLES Performing Organization Address City/State/ZIP Code [place] [address] [facility] [address] Lab (1st floor, no room number) Symptomatic; Unknown Influenza A/B & SARS-CoV2 (COVID-19) Virus PCR Multiplex Nasopharyngeal (04/21/2022 8:12 PM CDT) Analysis Performed At Patho logist Time Signature Influenza A Negative Negative 04/21/2022 [facility] LABORATORY PCR 8:57 PM CDT Influenza B Negative Negative 04/21/2022 [facility] LABORATORY PCR 8:57 PM CDT RSV PCR Negative Negative 04/21/2022 LABORATORY 8:57 PM CDT SARS CoV2 PCR Negative Negative 04/21/2022 LABORATORY 8:57 PM CDT Comment: NEGATIVE: SARS-CoV-2 (COVID-19) RNA not detected, presumed negative. Specimen Anatomical Location / Collection Method Collection Marin e Received Time (Source) Laterality / Volume Swab NASOPHARYNGEAL Non-blood 04/21/2022 8:12 04/21/2022 8:16 STRUCTURE / Unknown Collection / PM CDT PM CDT Unknown Narrative LABORATORY - 04/21/2022 8:57 PM CDT Testing was performed using the Xpert Xpress CoV2/Flu/RSV Assay on the [employer] GeneXpert Instrument. This test should be ordered for the detection of SARS-CoV-2 and influenza viruses in individuals who meet clinical and/or epidemiological cri teria. Test performance is unknown in asymptomatic patients. This test is for in vitro diagnostic use under the FDA EUA for laboratories certified under CLIA to p erform high or moderate complexity testi ng. This test has not been FDA cleared or approved. A negative result does not rule out the presence of PCR inhibitors in the specimen or target RNA in concentrat ion below the limit of detection for the assay. If only one viral target is positive but coinfection with multiple targets is suspected, the sample should be re-tested with another FDA cleared, approved , or authorized test, if coinfection wou ld change clinical management. This test was validated by the [facility]. These laboratories are certified under the Clinical Laboratory Improvement Amendments of 198 8 (CLIA-88) as qualified to perform high complexity laboratory testing. Madhu Hall MD LAB - MICRO GENERAL ORDERABL ES Performing Organization Address City/State/ZIP [place] [id number] Care Lab [address] [facility] Lab (1st floor, no room number) Influenza A & B Antigen (04/03/2022 4:46 [...] / PM CDT PM CDT Unknown Narrative LABORATORY - 04/03/2022 5:22 PM CDT Test results must be correlated with cli nical data. If necessary, results should be confirmed by a molecular assay or viral culture. Jairo Hackett MD LAB - MICRO GENERAL ORDERABL ES Performing Organization Address [facility]/ZIP Code Ph[place] [address] Lab [address] [facility] Lab (no room number, 1st floor of clinic) [place] [address], [facility] [address] [facility] Lab (no room number, 1st floor of [facility]) Streptococcus A Rapid Screen w/Reflex to PCR (04/03/2022 4:32 PM CDT) Analysis Performed At Patho logist Time Signature Group A Strep Negative Negative 04/03/2022 LABORATORY antigen 5:15 PM CDT Specimen Anatomical Collection Method Collection Time Receive d Time (Source) Location / / Volume Laterality Swab STRUCTURE OF Non-blood 04/03/2022 4:32 PM 2 5:03 ANTERIOR PORTION Collection / CDT PM CDT OF NECK / Unknown Unknown Jairo Hackett MD LAB - MICRO GENERAL ORDERABL ES Performing Organization Address [facility]/ZIP Code [place] Number [place] [address] Lab [address] [facility] Lab (no room number, 1st floor of [facility]) [place] [address], [phone] [facility] [address] [facility] Lab (no room number, 1st floor of clinic) Group A Streptococcus PCR Throat Swab (04/03/2022 4:32 PM CDT) Patholo gist Method Time Signature Group A strep Not [...] Xpress Strep A test, performed on the [employer], is a rapid, qualitative in [...] Organization Address City/State/ZIP Code Phon e Number [facility] [place] [phone] Diag. Lab [address] [facility], Room [address]297 from Last 3 Months Insurance Payer Benefit Plan / Subscriber ID Effective Phone Address T ype Group Dates SPECIAL SPECIAL [id number] 2017-Pr [address] [address] MEDICARE MEDICARE [id number] 2022-Pre [phone] Medic are sent [phone] [place] [address] PREFERREDONE PREFERREDONE HMO [id number] 2017-Pre [phone] PO [place] X PPO sent [phone] [place] [address] [place] [id number] 2020-Pr [phone] [address] Med icaid esent [phone] [place] [address] PEDSCLINLENY QUEVEDO Special Guarantor Other [address] [place] [address] [facility] [address] [place]) [place], [place] ([place]) [place] [address] Advance Directives For more information, please contact: [phone] Documents on File Type Date Recorded Patient Juvenile Detention Officer Explanati on Advance Directives 04/09/2020 2:34 PM Josephine (GUARDIAN) Legal Guar dianship and Living Will [place] 11-16-2019 Latest Code Status on File Code Status Date Activated Date Inactivated Comments Full Code 02/23/2021 5:39 AM 02/27/2021 10:10 PM All basic an d advanced life-sustaining interventions are performed as marianela ropriate Code status determined by: Unable to discuss and no AD/POLST on file; continue PREVIOUSLY ORDERED code status Full Code 05/28/2020 4:04 AM 06/06/2020 8:19 PM All basic and advanced life-sustaining interventions are performed as marianela ropriate Code status determined by: Discussion with patient/ legal de cision maker Full Code 03/15/2020 8:06 PM 03/31/2020 6:05 PM All basic an d advanced life-sustaining interventions ar e performed as appropriate Code status determined by: Discussion with patient/ legal de cision maker Full Code 03/18/2016 8:09 AM 03/21/2016 6:33 PM Full Code 03/18/2016 3:43 AM 03/18/2016 8:09 AM Care Teams It Infrastructure Consultant Relationship Specialty Start Date End Date No Ref-Primary, PCP - General 08/23/21 Physician Tc Jama MD Pediatric Surgery 02/14/[address] [facility] [address] Eda Duarte Assigned Surgical Provider 10/02/20 MD Alex [address] [facility] [address] [place] [address] Mike Sherwood Assigned Sleep Provider 01/31/21 MD Navid [address] [place] [id number] Navid Paige, Assigned Musculoskeletal 03/16/[address] [place] [address] Alber Estrada Assigned PCP 09/07/21 KARIN Lagunas [address] [place] [address]
--- OUTSIDE RECORDS SUMMARY | 2022-04-23 23:38 | XMS_ITS | Encounter Summary ---
:2000 Author Organization [facility] Address [address] [place] [address] Care Team Providers Name Role Phone Tc Jama MD Unavailable Tc Jama MD Unavailable Rosario Noe APRN CNM Unavailable [phone] Eda Duarte MD Unavailable Mike Sherwood MD Unavailable [phone] Navid Paige MD Unavailable Norma Ruggiero APRN WOMEN'S GARMENT FITTER Unavailable [phone] Ref-Primary, Physician Primary Care Provider [phone] Encounter Details Date Type Department Care Team Description 09/05/2021 Travel Social History Tobacco Use Types Packs/Day [...] or relatives? How often do you attend cheondoism or Never 2018 gnosticist services? Do you belong to any clubs or No 12/07/2018 organizations such as cheondoism groups, unions, fraternal or athletic groups, or [...] place to sleep or slept in a jail (including now)? Education Answer Date Recorded What is the highest level of school you have completed or 10 th grade 12/07/2018 the highest degree you have received? Sex Assigned at Date Recorded Female 09/04/2021 9:00 PM DIRECTOR DIGITAL CATALOGUE COVID-19 Exposure Response Date Recorded In the last month, have you been in contact with No / Unsure 09/05/2021 9:54 AM DIRECTOR DIGITAL CATALOGUE someone who was confirmed or suspected to have Coronavirus / COVID-19? 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 [employer] Gas Relationship Specialty Start Date End Date No Ref-Primary, PCP - General 08/23/21 Physician Tc Jama MD Pediatric Surgery 02/14/[address] [place] [address] Tc Jama, Assigned Pediatric 05/10/20 MD Specialist Provider [address] [facility] [address] [place] [address] Rosario Noe, Assigned OBGYN Provider 07/21/20 01/16/22 SERGEANT OF OFFICERS CN [address] [place] [address] [place], [place] [id number] Eda Duarte Assigned Surgical Provider 10/02/20 MD Alex [address] [facility] [address] [place] [address] Mike Sherwood Assigned Sleep Provider 01/31/21 MD Navid [address] [place] [address] Navid Paige MD Assigned Musculoskeletal 03/16/21 [address] [facility] [place] [address] Norma Ruggiero, Assigned PCP 07/27/21 2 [employer]GEANT OF OFFICERS WOMEN'S GARMENT FITTER [address] [address] documented as of this encounter
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
--- OUTSIDE RECORDS SUMMARY | 2022-04-23 23:38 | XMS_ITS | Encounter Summary ---
:2000 Author Organization [facility] Address [address] [place] [address]. [place] [address] Care Team Providers Name Role Phone Tc Jama MD Unavailable Tc Jama MD Unavailable Rosario Noe APRN CNM Unavailable [phone] Eda Duarte MD Unavailable Mike Sherwood MD Unavailable [phone] Navid Paige MD Unavailable Norma Ruggiero APRN BASS MECH[employer]ISM MAKER Unavailable [phone] Ref-Primary, Physician Primary Care Provider [phone] Reason for Referral Consultation (Routine: Next available opening) - Referral NOT Required Specialty Diagnoses / Procedures Referred By Contact Refer red To Contact Pediatrics Diagnoses Morbid obesity (H) Alber Estrada, Children Surgery [facility] [address] [facility] [address] [facility] [address] [place] [address] [place] [address] Phone: Fax: Referral ID Status Reason Start Date Expiration Date Visits V isits Requested Authorized [id number] Referral NOT 09/05/2021 09/05/2022 1 1 Required CARPENTER Reason for Visit Reason Comments Well Child Encounter Details Date Type Department Care Team Description 09/05[facility] for general adult medical examination with abnormal findings (Primary Dx); Clinic Satish Lagunas PA-C Borderline intellectual functioning; [id number] [address] [address] [address] Current mil d episode of major depressive disorder without prior episode (H); [address] 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; [place] Morbid obesit y (H); [id number] Need for hepatitis C screening test; [phone] Screening for S TDs (sexually transmitted diseases); (Work) Screening for HIV (human immunodeficienc y virus) Social History Tobacco Use Types Packs/Day Years [...] or relatives? How often do you attend congregation or Never 2018 caodaism services? Do you belong to any clubs or No 12/07/2018 organizations such as congregation groups, unions, fraternal or athletic groups, or [...] place to sleep or slept in a penitentiary (including now)? Education Answer Date Recorded What is the highest level of school you have completed or 10 th grade 12/07/2018 the highest degree you have received? Sex Assigned at Date Recorded Female 09/04/2021 9:00 PM BOAT CARPENTER COVID-19 Exposure Response Date Recorded In the last month, have you been in contact with No / Unsure 09/05/2021 9:54 AM BOAT CARPENTER someone who was confirmed or suspected to have Coronavirus / COVID-19? documented as of this encounter Last Filed Vital Signs Vital Sign Reading Time Taken Comments Blood Pressure 136/86 09/05/2021 10:11 AM BOAT CARPENTER Pulse 101 09/05/2021 10:11 AM BOAT CARPENTER Temperature 36.8 ??C (98.3 ??F) 09/05/2021 10:11 AM BOAT CARPENTER Respiratory Rate 16 09/05/2021 10:11 AM BOAT CARPENTER Oxygen Saturation 98% 09/05/2021 10:11 AM BOAT CARPENTER Inhaled Oxygen Concentration - - Weight 117.9 kg (260 lb) 09/05/2021 10:11 AM BOAT CARPENTER Height 172.1 cm (5' 7.75) 09/05/2021 10:11 AM BOAT CARPENTER Body Mass Index 39.83 09/05/2021 10:11 AM BOAT CARPENTER documented in this encounter Progress Notes Alber Estrada PA-C - 09/05/2021 10:30 AM CST Mahi Fyae is 21 year old, here for a preventive care visit. Assessment & Plan 1. Annual visit for general adult medical examination with abnormal findings Reviewed personal and family history. Reviewed age appropriate screenings. Recommended any needed vaccinations. 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 3. Current mild episode of major depressive disorder without prior episode (H) 4. Adjustment disorder with mixed disturbance of emotions and conduct Continues with outside psych. Using only seroquel 5. Morbid obesity (H) Reviewed dietary and lifestyle patterns. Strongly recommend weight specialty. Consider regina program? - Comprehensive metabolic panel (BMP + Alb, Alk Phos, ALT, AST, Total. Bili, TP); Future - Hemoglobin A1c; Future - Lipid panel reflex to direct LDL Non-fasting; Future - Comprehensive metabolic panel (BMP + Alb, Alk Phos, ALT, AST, Total. Bili, TP) - Hemoglobin A1c - Lipid panel reflex to direct LDL Non-fasting 6. Need for hepatitis C screening test Screening per cdc - Hepatitis C Screen Reflex to HCV RNA Quant and Genotype; Future - Hepatitis C Screen Reflex to HCV RNA Quant and Genotype 7. Screening for STDs (sexually transmitted diseases) Screening sexually active female with new partner. Counseled on safe practices - NEISSERIA GONORRHOEA PCR; Future - CHLAMYDIA TRACHOMATIS PCR; Future - NEISSERIA GONORRHOEA PCR - CHLAMYDIA TRACHOMATIS PCR 8. Screening for HIV (human immunodeficiency virus) Screening per cdc - HIV Antigen Antibody Combo; Future - HIV Antigen Antibody Combo Growth Height: Normal , Weight: Severe Obesity (BMI > 99%) Will refer again to weight clinic Immunizations Vaccines up to date. Consider Men B Anticipatory Guidance Reviewed age appropriate anticipatory guidance. Reviewed Anticipatory Guidance in patient instructions Referrals/Ongoing Specialty Care Verbal referral for routine dental care Follow Up No follow-ups on file. Subjective Additional Questions 09/05/2021 Do you have any questions today that you would like to discuss? No Patient has been advised of split billing requirements and indicates understanding: Yes Social 09/04/2021 Who do you live with? Family Have you experienced any stressful events recently? (!) OF A LOVED ONE, (!) ADJUSTMENT TO CHANGE In the past 12 months, has lack of transportation kept you from medical appointments or from gettingmedications? No In the last 12 months, was there a time when you were not able to pay the mortgage or rent on time? No In the last 12 months, was there a time when you did not have a steady place to sleep or slept in a penitentiary (including now)? No Health Risks/Safety 09/04/2021 Do you always wear a seat belt? Yes Do you wear a helmet for bicyle, rollerblades, skatebard, scooter, skiing/snowboarding, ATV/snowmobile, motorcycle? Yes TB Screening 09/04/2021 Were you born outside of the [place]? No TB Screening 09/04/2021 Since your last Well Child visit, have any of your family members or close contacts had tuberculosisor a positive tuberculosis test? No Since your last check-up, have you or any of your family members or close contacts traveled or livedoutside of the [place]? No Since your last check-up, have you lived in a high-risk group setting like a correctional facility, health care facility, homeless penitentiary, or refugee camp? No Dyslipidemia Screening 09/04/2021 Have any of your parents or grandparents had a stroke or heart attack before age 55 for males or before age 65 for females? No Do either of your parents have high cholesterol or currently taking medications to treat? No Risk Factors: None Diet 09/04/2021 Do you have questions about your eating? No Do you have questions about your weight? (!) YES Please specify: I know I need to lose weight but really struggle from always wanting unhealthy foodsand from eating a lot. What do you regularly drink? Water, (!) POP, (!) ENERGY DRINKS What type of water? Tap, (!) BOTTLED, (!) FILTERED Do you think you eat healthy foods? (!) NO Please specify: Sometimes I do eat healthy but crave and eat a lot of unhealthy foods too. Do you get at least 3 servings of food or beverages that have calcium each day (dairy, green leafy vegetables, etc.)? (!) NO How would you describe your diet? No restrictions Within the past 12 months, you worried that your food would run out before you got money to buy more. Never true Within the past 12 months, the food you bought just didn't last and you didn't have money to get more. Never true Activity 09/04/2021 On average, how many days per week do you engage in moderate to strenuous exercise (like walking fast, running, jogging, dancing, swimming, biking, or other activities that cause a light or heavy sweat)? 3 days On average, how many minutes do you engage in exercise at this level? (!) 30 MINUTES What do you do for exercise? Bicycle when it???s nice outside. I used to swim and sometimes hit the tennis ball. What activities are you involved with? I just started signing up for things through [employer] and some [employer] pre-cov. School/Daytime activities: [employer] both 5 days weekly; [employer] in the mornings, [employer] in afternoons Media Use 09/04/2021 How many hours per day are you viewing a screen? Several hours Sleep 09/04/2021 Do you have any trouble with sleep? No Vision/Hearing 09/04/2021 Do you have any concerns about your hearing or vision? (!) VISION CONCERNS Vision Screen Vision Screen Details Reason Vision Screen Not Completed: Other Comments:: Going to schedule a eye exam soon. Hearing Screen RIGHT EAR 1000 Hz on Level 40 dB (Conditioning sound): Pass 1000 Hz on Level 20 dB: Pass 2000 Hz on Level 20 dB: Pass 4000 Hz on Level 20 dB: Pass 6000 Hz on Level 20 dB: Pass 8000 Hz on Level 20 dB: Pass LEFT EAR 8000 Hz on Level 20 dB: Pass 6000 Hz on Level 20 dB: (!) REFER 4000 Hz on Level 20 dB: Pass 2000 Hz on Level 20 dB: Pass 1000 Hz on Level 20 dB: Pass 500 Hz on Level 25 dB: Pass RIGHT EAR 500 Hz on Level 25 dB: (!) REFER School 09/04/2021 Are you in school? Yes What school do you attend? [employer] What do you do for work? Just started one day a week for 1 1/2 hours at the [employer] through [employer] Psycho-Social/Depression - PSC-17 required for C&TC through age 18 General screening: PHQ9/Gad7 Teen Screen Teen Screen completed, reviewed and scanned document within chart. AMB [facility] MENSES SECTION 09/04/2021 What are your periods like? (!) OTHER Please specify: I don???t have one because of the Nexplanon (etonogestrel implant) 68 mg Radiopaque Constitutional, eye, ENT, skin, respiratory, cardiac, and GI are normal except as otherwise noted. Objective Exam BP 136/86 (BP Location: Right arm, Patient Position: Sitting, Cuff Size: Adult Large) Pulse 101 Temp 98.3 ??F (36.8 ??C) (Oral) Resp 16 Ht 1.721 m (5' 7.75) Wt 117.9 kg (260 lb) SpO2 98% BMI 39.83 kg/m?? 91 %ile (Z= 1.36) based on CDC (Girls, 2-20 Years) Lyuadxk-rhf-rjz data based on Stature recorded on09/05/2021. >99 %ile (Z= 2.58) based on CDC (Girls, 2-20 Years) jidtix-[id number] data using vitals from 09/05/2021. 98 %ile (Z= 2.15) based on CDC (Girls, 2-20 Years) BMI-for-age based on BMI available as of 09/05/2021. Blood pressure percentiles are not available for patients who are 18 years or older. Physical Exam GENERAL: Active, alert, in no acute distress. SKIN: acne to the cheeks, perioral areas EYES: Pupils equal, round, reactive, Extraocular muscles intact. Normal conjunctivae. EARS: Normal canals. Tympanic membranes are normal; presley and translucent. NOSE: Normal without discharge. MOUTH/THROAT: Clear. No oral lesions. Teeth without obvious abnormalities. NECK: Supple, no masses. No thyromegaly. LUNGS: Clear. No rales, rhonchi, wheezing or retractions HEART: Regular rhythm. Normal S1/S2. No murmurs. Normal pulses. ABDOMEN: Soft, non-tender, not distended, no masses or hepatosplenomegaly. Bowel sounds normal. NEUROLOGIC: No focal findings. Cranial nerves grossly intact: DTR's normal. Normal gait, strength and tone BACK: Spine is straight, no scoliosis. EXTREMITIES: wearing knee stabilizing brace on the right knee; No peripheral edema Alber Estrada PA-C [facility] documented in this encounter Nursing Notes Asia Resendiz CMA - 09/05/2021 10:30 AM CST Chief Complaint Patient presents with ??? Well Child Initial BP 136/86 (BP Location: Right arm, Patient Position: Sitting, Cuff Size: Adult Large) Pulse 101 Temp 98.3 ??F (36.8 ??C) (Oral) Resp 16 Ht 1.721 m (5' 7.75) Wt 117.9 kg (260 lb) SpO2 98% BMI 39.83 kg/m?? Estimated body mass index is 39.83 kg/m?? as calculated from the following: Height as of this encounter: 1.721 m (5' 7.75). Weight as of this encounter: 117.9 kg (260 lb). BP completed using cuff size large right arm Asai Resendiz CMA CARPENTER documented in this encounter Plan of Treatment Scheduled Referrals Name Type Priority Associated Diagnoses Order S chedule Peds Referral Routine: Next Morbid obesity (H) Expected : Weight/Bariatric available opening 2021 Referral (Approximate), Expires: 09/05/2022 documented as of this encounter Procedures Procedure Name Priority Date/Time Associated Diagnosis Comme nts NEISSERIA GONORRHOEAE Routine 09/05/2021 11:11 Screening for S TDs Results for this PCR AM BOAT CARPENTER (sexually transmitted proced ure are in diseases) the results section. CHLAMYDIA TRACHOMATIS Routine 09/05/2021 11:11 Screening for S TDs Results for this PCR AM BOAT CARPENTER (sexually transmitted proced ure are in diseases) the results section. HIV ANTIGEN ANTIBODY Routine 09/05/2021 11:09 Screening for HI V Results for this COMBO AM BOAT CARPENTER (human immunodeficiency proc edure are in virus) the results section. HEPATITIS C SCREEN Routine 09/05/2021 11:09 Need for hepatitis C Results for this REFLEX TO HCV RNA AM BOAT CARPENTER screening test procedur e are in QUANT AND GENOTYPE the resul ts section. LIPID REFLEX TO Routine 09/05/2021 11:09 Morbid obesity (H) Re sults for this DIRECT LDL PANEL AM BOAT CARPENTER procedure a re in the results section. HEMOGLOBIN A1C Routine 09/05/2021 11:09 Morbid obesity (H) Res ults for this AM BOAT CARPENTER procedure are i n the results section. COMPREHENSIVE Routine 09/05/2021 11:09 Morbid obesity (H) Resu lts for this METABOLIC PANEL AM BOAT CARPENTER procedure ar e in the results section. documented in this encounter Results CHLAMYDIA TRACHOMATIS PCR (09/05/2021 11:11 AM BOAT [facility]PENTER) [facility] Signature Chlamydia Negative Negative 09/06/2021 [facility] trachomatis 1:37 PM BOAT CARPENTER LABORATORY Comment: A negative result by transcript ion mediated amplification does not preclude the presence of C. trachomatis infection because results are dependent on proper and adequate collection, absence of inhibito rs and sufficient rRNA to be detected. Specimen Anatomical Collection Method Collection Time Receive d Time (Source) Location / / Volume Laterality Swab VAGINAL STRUCTURE Non-blood 09/05/2021 11:11 2021 / Unknown Collection / AM BOAT CARPENTER 11:11 AM BOAT CARPENTER Unknown Alber Estrada PA-C LAB - MICRO GENERAL ORDERABL ES Performing Organization Address City/State/ZIP Code Phon e Number [facility] [place] [phone] Diag[facility] Lab [address] [facility], [address] [facility] Infectious [place], [place] [phone] Diseases Diagnostic [id number], [facility] Lab (IDDL) [address] [facility], [address] NEISSERIA GONORRHOEA PCR (09/05/2021 11:11 AM BOAT CARPENTER) [facility] Method Time Signature Neisseria Negative Negative 09/06/2021 [facility] gonorrhoeae 1:37 PM BOAT [facility] LABORATORY Comment: Negative for N. gonorrhoeae rRN A by skeins yarn examiner mediated amplification. A negative result by skeins yarn examiner mediate d amplification does not preclude the presence of C. trachomatis infection bec ause results are dependent on proper and adequate collection, absence of inhibito rs and sufficient rRNA to be detected. Specimen Anatomical Collection Method Collection Time Receive d Time (Source) Location / / Volume Laterality Swab VAGINAL STRUCTURE Non-blood 09/05/2021 11:11 2021 / Unknown Collection / AM BOAT CARPENTER 11:11 AM BOAT CARPENTER Unknown Alber Estrada PA-C LAB - MICRO GENERAL ORDERABL ES Performing Organization Address City/State/ZIP Code Phon e Number [facility] [place] [place] [phone] Diag. Lab [address] [facility], [address] [facility]ORAT[facility] Infectious [place], [place] [phone] Diseases Diagnostic [id number], [facility] Lab (IDDL) [address] [facility], [address] (ABNORMAL) Lipid panel reflex to direct LDL Non-fasting (09/05/2021 11:09 AM BOAT CARPENTER) [facility] Method Time Signature Cholesterol 148 <170 09/06/2021 [facility] mg/dL 1:52 PM BOAT CARPENTER Triglycerides 113 (H) <90 mg/dL 09/06/2021 [facility] 1:52 PM BOAT CARPENTER Direct Measure 46 (L) >=50 09/06/2021 [facility] HDL mg/dL 1:52 PM BOAT CARPENTER LDL Cholesterol 79 <=110 09/06/2021 [facility] Calculated mg/dL 1:52 PM BOAT CARPENTER Non HDL 102 <120 09/06/2021 [facility] Cholesterol mg/dL 1:52 PM BOAT CARPENTER Patient Fasting > No 09/06/2021 [facility] RY 8hrs? 1:52 PM BOAT CARPENTER Specimen Anatomical Collection Method / Collection Time Recei bibiana Time (Source) Location / Volume Laterality Blood BLOOD SPECIMEN / Venipuncture / 09/05/2021 11:09 09/05 Unknown Unknown AM BOAT CARPENTER 11:09 AM BOAT CARPENTER Narrative [facility] - 09/06/2021 1:52 PM BOAT CARPENTER Cholesterol Desirable: ??<170 mg/dL Borderline High: ??170-199 mg/dl High: ??>199 mg/dl Triglycerides Normal: ??Less than 90 mg/dL Borderline High: ??90-129 mg/dL High: ??Greater than or equal to 130 mg/ dL Direct Measure HDL Greater than or equal to 45 mg/dL Low: Less than 40 mg/dL Borderline Low: 40-44 mg/dL LDL Cholesterol Desirable: 0-110 mg/dL Borderline High: 110-129 mg/dL High: >= 130 mg/dL Non HDL Cholesterol Desirable: ??Less than 120 mg/dL Borderline High: ??120-144 mg/dL High: ??Greater than or equal to 145 mg/ dL Abler Estrada PA-C LAB - BLOOD ORDERABLES Performing Organization Address City/State/ZIP Code Phon e Number LABORATORY [facility] [place], [place] [phone] [facility] [place] [facility] [phone] [place] [address] Lab (no room number, 1st floor of clinic) LABORATORY [place], [place] [phone] [place] [phone] [place] [facility] [address] [place] [address] Lab (no room number, 1st floor of clinic) Hemoglobin A1c (09/05/2021 11:09 AM BOAT CARPENTER) athologist Signature Hemoglobin A1C 5.6 0.0 - 5.6 09/05/2021 LABORATORY % 11:18 AM BOAT CARPENTER Comment: Normal <5.7% Prediabetes 5.7-6.4% ?? Diabetes 6.5% or higher Note: Adopted from ADA consensus guideli jarvis. Specimen Anatomical Collection Method / Collection Time Recei bibiana Time (Source) Location / Volume Laterality Blood BLOOD SPECIMEN / Venipuncture / 09/05/2021 11:09 09/05 Unknown Unknown AM BOAT CARPENTER 11:09 AM BOAT CARPENTER Alber Estrada PA-C LAB - BLOOD ORDERABLES Performing Organization Address City/State/ZIP Code Phon e Number LABORATORY [facility] [place] [address] Lab [address] [facility] Lab (no room number, 1st floor of clinic) [place]AT[place] [address], [phone] [facility] [address] [facility] Lab (no room number, 1st floor of [facility]) Comprehensive metabolic panel (BMP + Alb, Alk Phos, ALT, AST, Total. Bili, TP) (09/05/2021 11:09 AM BOAT CARPENTER) P athologist Signature Sodium 139 133 - 144 09/06/2021 [facility] mmol/L 1:45 PM BOAT CARPENTER Potassium 4.4 3.4 - 5.3 09/06/2021 [facility] mmol/L 1:45 PM BOAT CARPENTER Chloride 108 96 - 110 09/06/2021 [facility] mmol/L 1:45 PM BOAT CARPENTER Carbon Dioxide 23 20 - 32 09/06/2021 [facility] (CO2) mmol/L 1:45 PM BOAT CARPENTER Anion Gap 8 3 - 14 09/06/2021 [facility] mmol/L 1:45 PM BOAT CARPENTER Urea Nitrogen 9 7 - 30 09/06/2021 [facility] mg/dL 1:45 PM BOAT CARPENTER Creatinine 0.74 0.50 - 09/06/2021 [facility] 1.00 mg/dL 1:45 PM BOAT CARPENTER Calcium 8.9 8.5 - 10.1 09/06/2021 [facility] mg/dL 1:45 PM BOAT CARPENTER Glucose 88 70 - 99 09/06/2021 [facility] mg/dL 1:45 PM BOAT CARPENTER Alkaline 132 40 - 150 09/06/2021 [facility] Phosphatase U/L 1:45 PM BOAT CARPENTER AST 14 0 - 35 U/L 09/06/2021 [facility] 1:45 PM BOAT CARPENTER ALT 26 0 - 50 U/L 09/06/2021 [facility] 1:45 PM BOAT CARPENTER Protein Total 7.0 6.8 - 8.8 09/06/2021 [facility] g/dL 1:45 PM BOAT CARPENTER Albumin 3.4 3.4 - 5.0 09/06/2021 [facility] g/dL 1:45 PM BOAT CARPENTER Bilirubin Total 0.2 0.2 - 1.3 09/06/2021 [facility] mg/dL 1:45 PM BOAT CARPENTER GFR Estimate >90 >60 09/06/2021 [facility] mL/min/1.7 1:45 PM BOAT CARPENTER 3m2 Comment: Effective July 08, 2021 eGF Rcr in adults is calculated using the 2020 CKD-EPI creatinine equation which includ es age and gender (Travis pérez al., NEJ, DOI: 10.1056/HXJFob6719029) Specimen Anatomical Collection Method / Collection Time Recei bibiana Time (Source) Location / Volume Laterality Blood BLOOD SPECIMEN / Venipuncture / 09/05/2021 11:09 09/05 Unknown Unknown AM BOAT CARPENTER 11:09 AM BOAT CARPENTER Alber Estrada PA-C LAB - BLOOD ORDERABLES Performing Organization Address City/State/ZIP Code Phon e Number [facility] LABORATORY [place], [place] [phone] [facility] [place] [facility] [address] Lab (no room number, 1st floor of clinic) [facility] LABORATORY [place], [place] [phone] [facility] [phone] [place] [facility] [address] Lab (no room number, 1st floor of clinic) Hepatitis C Screen Reflex to HCV RNA Quant and Genotype (09/05/2021 11:09 AM BOAT CARPENTER) [facility] Method Time Signature Hepatitis C Nonreactive Nonreactive 09/07/2021 [facility] Antibody 11:50 AM BOAT CARPENTER CORE/PROT/EN DO Specimen Anatomical Collection Method / Collection Time Recei bibiana Time (Source) Location / Volume Laterality Blood BLOOD SPECIMEN / Venipuncture / 09/05/2021 11:09 09/05 Unknown Unknown AM BOAT CARPENTER 11:09 AM BOAT CARPENTER Narrative [facility] CORE/PROT/ENDO - 09/07/2021 11:50 AM BOAT CARPENTER Assay performance characteristics have n ot been established for newborns, infants, and children. Alber Estrada PA-C LAB - BLOOD ORDERABLES Performing Organization Address City/State/ZIP Code Phon e Number [facility] CORE/PROT/ENDO [facility] [place] [address] Core/Prot/Endo [address], [address] HIV Antigen Antibody Combo (09/05/2021 11:09 AM BOAT CARPENTER) [employer] Method Time Signature HIV Antigen Nonreactive Nonreactive 09/07/2021 [facility] Antibody 11:50 AM BOAT CARPENTER CORE/PROT/EN Combo DO Comment: HIV-1 p24 Ag & HIV-1/HIV-2 Ab N ot Detected Specimen Anatomical Collection Method / Collection Time Recei bibiana Time (Source) Location / Volume Laterality Blood BLOOD SPECIMEN / Venipuncture / 09/05/2021 11:09 09/05 Unknown Unknown AM BOAT CARPENTER 11:09 AM BOAT CARPENTER Alber Estrada PA-C LAB - BLOOD ORDERABLES Performing Organization Address City/State/ZIP Code Phon e Number [facility] CORE/PROT/ENDO [facility] [place] [address] Core/Prot/Endo [address] [facility] [address], [address] documented in this encounter Visit Diagnoses Diagnosis Annual visit for general adult medical e xamination with abnormal findings - Primary Borderline intellectual functioning Other psychological or physical stress, not elsewhere classified Current mild episode of major depressive disorder without prior episode (H) 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 Morbid obesity (H) Morbid obesity Need for hepatitis C screening test Special screening examination for other specified viral diseases Screening for STDs (sexually transmitted diseases) Screening examination for venereal disea se Screening for HIV (human immunodeficienc y virus) Special screening examination for other specified viral diseases documented in this encounter Additional Health Concerns Assessment Noted Time PHQ-9 Depression Total Score: 6 09/05/2021 1:00 PM BOAT CARPENTER documented as of this encounter Care Teams Scarfer Relationship Specialty Start Date End Date No Ref-Primary, PCP - General 08/23/21 Physician Tc Jama MD Pediatric Surgery 02/14/[address] [place] [address] [id number] Tc Jama, Assigned Pediatric 05/10/20 Specialist Provider [address] [place], [place] [address] Rosario Noe, Assigned OBGYN Provider 07/21/20 01/16/22 CRANBERRY BOG SUPERVISOR [employer]aw [address] [place], [place] [phone] Eda Duarte Assigned Surgical Provider 10/02/20 MD Alex 420 [facility] [address] [place], [place] [id number] Mike Sherwood Assigned Sleep Provider 01/31/21 MD Navid [address] [place] [address] Navid Paige MD Assigned Musculoskeletal 03/16/21 909 [facility] [place] [address] Norma Ruggiero, Assigned PCP 07/27/21 2 CRANBERRY BOG SUPERVISOR BASS MECHANISM MAKER [address] [place] [address] documented as of this encounter
--- OUTSIDE RECORDS SUMMARY | 2022-04-23 23:38 | XMS_ITS | Encounter Summary ---
:2000 Author Organization [facility] Address [address] [place] [id number] Care Team Providers Name Role Phone Tc Jama MD Unavailable Rosario Noe APRN, CNM Unavailable [phone] Eda Duarte MD Unavailable Mike Sherwood MD Unavailable [phone] Navid Paige MD Unavailable No Ref-Primary, Physician Primary Care Provider [phone] Alber Estrada PA-C Unavailable [phone] Encounter Details Date Type Department Care Team Description 11/22/2021 Travel Social History Tobacco Use Types Packs/Day [...] or relatives? How often do you attend restorationist or Never 2018 pentecostalism services? Do you belong to any clubs or No 12/07/2018 organizations such as restorationist groups, unions, fraternal or athletic groups, or [...] place to sleep or slept in a fpc (including now)? Education Answer Date Recorded What is the highest level of school you have completed or 10 th grade 12/07/2018 the highest degree you have received? 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 COVID-19 Exposure Response Date Recorded In the [...] Depression Total Score: 6 09/05/2021 1:00 PM HOOK AND EYE MACHINE OPERATOR documented as of this encounter Care Teams Special Events Assistant Relationship Specialty Start Date End Date No Ref-Primary, PCP - General 08/23/21 Physician Tc Jama MD Pediatric Surgery 02/14/[address] [place] [id number] Rosario Noe, Assigned OBGYN Provider 07/21/20 01/16/22 DRY CLEANING MACHINE OPERATOR HELPER CNM [address] [place], [place] [phone] Eda Duarte Assigned Surgical Provider 10/02/20 MD Alex 420 [facility] [address] [place] [address] Mike Sherwood Assigned Sleep Provider 01/31/21 MD Navid [address] [place] [address] Navid Paige, Assigned Musculoskeletal 03/16/[address] [place] [address] Alber Estrada Assigned PCP 09/07/21 KARIN Lagunas [address] [place] [address] documented as of this encounter
--- OUTSIDE RECORDS SUMMARY | 2022-04-23 23:38 | XMS_ITS | Encounter Summary ---
:2002 Author Organization [facility] Address [address] [place] [address] Care Team Providers Name Role Phone Tc Jama MD Unavailable Eda Duarte MD Unavailable Mike Sherwood MD Unavailable [phone] Navid Paige MD Unavailable No Ref-Primary, Physician Primary Care Provider [phone] Alber Estrada PA-C Unavailable [phone] Encounter Details Date Type Department Care Team Description 04/03/2022 Travel Social History Tobacco Use Types Packs/Day [...] many times do you More than three marni es a week 12/07/2018 talk on the phone with family, friends, or neighbors? How often do you get together with friends Three times a wee k 12/07/2018 or relatives? How often do you attend buddhist or Never 2018 tenriism services? Do you belong to any clubs or No 12/07/2018 organizations such as buddhist groups, unions, fraternal or athletic groups, or [...] place to sleep or slept in a longterm (including now)? Education Answer Date Recorded What is the highest level of school you have completed or 10 th grade 12/07/2018 the highest degree you have received? 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 COVID-19 Exposure Response Date Recorded In the [...] Depression Total Score: 6 09/05/2021 1:00 PM BUILDING MAINTENANCE CUSTODIAN documented as of this encounter Care Teams Crew Foreman Relationship Specialty Start Date End Date No Ref-Primary, PCP - General 08/23/21 Physician Tc Jama MD Pediatric Surgery 02/14/[address] [place] [address] Eda Duarte Assigned Surgical Provider 10/02/20 MD Alex [address] [address] Mike Sherwood Assigned Sleep Provider 01/31/21 MD Navid [address] [place] [address] Navid Paige, Assigned Musculoskeletal 03/16/21 MD Provider [address] [place] [address] Alber Estrada Assigned PCP 09/07/21 KARIN Lagunas [address] [place] [address] documented as of this encounter
--- OUTSIDE RECORDS SUMMARY | 2022-04-23 23:38 | XMS_ITS | Encounter Summary ---
:2000 Author Organization [facility] Address [address] [place] [id number] Care Team Providers Name Role Phone Tc Jama MD Unavailable Eda Duarte MD Unavailable Mike Sherwood MD Unavailable [phone] Navid Paige MD Unavailable No Ref-Primary, Physician Primary Care Provider [phone] Alber Estrada PA-C Unavailable [phone] Reason for Visit Reason Comments Abdominal Pain Encounter Details Date Type Department Care Team Description 04/21/2022 - [facility] Chano Hall MD [facility] [address] [place] [address] Nausea and vomiting, unspecified vomitin g type; 04/22/2022 [facility] Remberto Chand MD [facility] [address] [place] [id number] Abdominal pain, epigastric Dept [address] [place] [address] Social History Tobacco Use Types Packs/Day Years [...] or relatives? How often do you attend [employer] or Never 2018 [employer] services? Do you belong to any clubs or No 12/07/2018 organizations such as [employer] groups, unions, [employer] or athletic groups, or school groups? How [...] at Date Recorded Female 09/04/2021 9:00 PM IT SUPPORT MANAGER COVID-19 Exposure Response Date Recorded In [...] 4.5 oz) 04/21/2022 8:05 PM CDT Height - - Body Mass Index 35.12 09/05/2021 10:11 AM IT SUPPORT MANAGER documented in this encounter Discharge Instructions Discharge InstructionsRemberto Chand MD - 04/22/2022 2:42 AM CDT Discharge Instructions Vomiting You have been seen today for vomiting (throwing up). This is usually caused by a virus, but some bacteria, parasites, medicines or other medical conditions can cause similar symptoms. At this time yourprovider does not find that your vomiting is a sign of anything dangerous or life-threatening. However, sometimes the signs of serious illness do not show up right away. If you have new or worse symptoms, you may need to be seen again in the Emergency Department or by your primary provider. Remember that serious problems like appendicitis can start as vomiting. Generally, every Emergency Department visit should have a follow-up clinic visit with either a primary or a specialty clinic/provider. Please follow-up as instructed by your emergency provider today. Return to the Emergency Department if: You keep vomiting and you are not able to keep liquids down. You feel you are getting dehydrated, such as being very thirsty, not urinating (peeing) at least every 8-12 hours, or feeling faint or lightheaded. You develop a new fever, or your fever continues for more than 2 days. You have abdominal (belly pain) that seems worse than cramps, is in one spot, or is getting worse over time. Appendicitis usually causes pain in the right lower abdomen (to the right and below your belly button) so watch for pain in this location. You have blood in your vomit or stools. You feel very weak. You are not starting to improve within 24 hours of your visit here. What can I do to help myself? The most important thing to do is to drink clear liquids. If you have been vomiting a lot, it is best to have only small, frequent sips of liquids. Drinking too much at once may cause more vomiting. Ifyou are vomiting often, you must replace minerals, sodium and potassium lost with your illness. Pedialyte?? is the best available rehydration liquid but some find that it doesn???t taste good so sportsdrinks are an alterative. You can also drink clear liquids such as water, weak tea, apple juice, and7-Up??. Avoid acid liquids (orange), caffeine (coffee) or alcohol. Do not drink milk until you no longer have diarrhea (loose stools). After liquids are staying down, you may start eating mild foods. Soda crackers, toast, plain noodles, gelatin, applesauce and bananas are good first choices. Avoid foods that have acid, are spicy, fatty or have a lot of fiber (such as meats, coarse grains, vegetables). You may start eating these foodsagain in about 3 days when you are better. Sometimes treatment includes prescription medicine to prevent nausea (sick to your stomach) and vomiting. If your provider prescribes these for you, take them as directed. Do not take ibuprofen, naproxen, or other nonsteroidal anti-inflammatory (NSAID) medicines without checking with your healthcare provider. If you were given a prescription for medicine here today, be sure to read all of the information (including the package insert) that comes with your prescription. This will include important information about the medicine, its side effects, and any warnings that you need to know about. The pharmacist who fills the prescription can provide more information and answer questions you may have about the medicine. If you have questions or concerns that the pharmacist cannot address, please call or return to the Emergency Department. Remember that you can always come back to the Emergency Department if you are not able to see your regular provider in the amount of time listed above, if you get any new symptoms, or if there is anything that worries you. Discharge Instructions Abdominal Pain Abdominal pain (belly pain) can be caused by many things. Your evaluation today does not show the exact cause for your pain. Your provider today has decided that it is unlikely your pain is due to a life threatening problem, or a problem requiring surgery or hospital admission. Sometimes those problems cannot be found right away, so it is very important that you follow up as directed. Sometimes only the changes which occur over time allow the cause of your pain to be found. Generally, every Emergency Department visit should have a follow-up clinic visit with either a primary or a specialty clinic/provider. Please follow-up as instructed by your emergency provider today. With abdominal pain, we often recommend very close follow-up, such as the following day. ADULTS: Return to the Emergency Department right away if: You get an oral temperature above 102oF or as directed by your provider. You have blood in your stools. This may be bright red or appear as black, tarry stools. You keep vomiting (throwing up) or cannot drink liquids. You see blood when you vomit. You cannot have a bowel movement or you cannot pass gas. Your stomach gets bloated or bigger. Your skin or the whites of your eyes look yellow. You faint. You have bloody, frequent or painful urination (peeing). You have new symptoms or anything that worries you. CHILDREN: Return to the Emergency Department right away if your child has any of the above-listed symptoms or the following: Pushes your hand away or screams/cries when his/her belly is touched. You notice your child is very fussy or weak. Your child is very tired and is too tired to eat or drink. Your child is dehydrated. Signs of dehydration can be: Significant change in the amount of wet diapers/urine. Your or child starts to have dry mouth and lips, or no saliva (spit) or tears. WOMEN: Return to the Emergency Department right away if you have any of the above-listed symptoms or the following: You have bleeding, leaking fluid or passing tissue from the vagina. You have worse pain or cramping, or pain in your shoulder or back. You have vomiting that will not stop. You have a temperature of 100oF or more. Your baby is not moving as much as usual. You faint. You get a bad headache with or without eye problems and abdominal pain. You have a seizure. You have unusual discharge from your vagina and abdominal pain. Abdominal pain is pretty common during . Your pain may or may not be related to your . You should follow-up closely with your OB provider so they can evaluate you and your baby. Untilyou follow-up with your regular provider, do the following: Avoid sex and do not put anything in your vagina. Drink clear fluids. Only take medications approved by your provider. MORE INFORMATION: Appendicitis: A possible cause of abdominal pain in any person who still has their appendix is acuteappendicitis. Appendicitis is often hard to diagnose. Testing does not always rule out early appendicitis or other causes of abdominal pain. Close follow-up with your provider and re-evaluations may beneeded to figure out the reason for your abdominal pain. Follow-up: It is very important that you make an appointment with your clinic and go to the appointment. If you do not follow-up with your primary provider, it may result in missing an important development which could result in permanent injury or disability and/or lasting pain. If there is any problem keeping your appointment, call your provider or return to the Emergency Department. Medications: Take your medications as directed by your provider today. Before using gtyt-yyi-efacqsmogzdyvwzunp, ask your provider and make sure to take the medications as directed. If you have any questions about medications, ask your provider. Diet: Resume your normal diet as much as possible, but do not eat fried, fatty or spicy foods while you have pain. Do not drink alcohol or have caffeine. Do not smoke tobacco. Probiotics: If you have been given an antibiotic, you may want to also take a probiotic pill or eat yogurt with live cultures. Probiotics have good bacteria to help your intestines stay healthy. Studies have shown that probiotics help prevent diarrhea (loose stools) and other intestine problems (including C. diff infection) when you take antibiotics. You can buy these without a prescription in the pharmacy section of the store. If you were given a prescription for medicine here today, be sure to read all of the information (including the package insert) that comes with your prescription. This will include important information about the medicine, its side effects, and any warnings that you need to know about. The pharmacist who fills the prescription can provide more information and answer questions you may have about the medicine. If you have questions or concerns that the pharmacist cannot address, please call or return to the Emergency Department. Remember that you can always come back to the Emergency Department if you are not able to see your regular provider in the amount of time listed above, if you get any new symptoms, or if there is anything that worries you. documented in this encounter Medications at Time of Discharge Medication Sig Dispensed Refills Start Date End Date benzonatate (TESSALON) Take 1 capsule (200 30 capsule 0 03/19 200 MG mg) by mouth 3 times capsuleIndications: daily as needed for Cough cough Condoms - Female (FC Use with every 5 each 09/05/2021 FEMALE CONDOM) intercourse not to be MISCIndications: use with a male condom Annual visit for general adult medical examination with abnormal findings Melatonin 10 MG TABS Take 10 mg by mouth 0 tablet nightly as needed for sleep ondansetron (ZOFRAN Take 1 tablet (4 mg) 10 tablet 0 202104/25/2022 ODT) 4 MG ODT tab by mouth every 8 hours as needed for nausea or vomiting QUEtiapine (SEROQUEL) Take 300 mg by mouth 0 300 MG tablet At Bedtime QUEtiapine (SEROQUEL) Take 50 mg by mouth 0 50 MG tablet every 4 hours as needed documented as of this encounter ED Notes Irma Lewis RN - 04/21/2022 8:06 PM CDT Pt arrives complaining of one month of abdominal pain. Has had nausea, vomiting and diarrhea. Unableto eat normally. Unable to sleep normally due to nausea Text message from mother, guardian with permission to treat. Triage Assessment Row Name 04/21/222003 Triage Assessment (Adult) Airway WDL WDL Respiratory WDL Respiratory WDL WDL Skin Circulation/Temperature WDL Skin Circulation/Temperature WDL WDL Cardiac WDL Cardiac WDL WDL Peripheral/Neurovascular WDL Peripheral Neurovascular WDL WDL Cognitive/Neuro/Behavioral WDL Cognitive/Neuro/Behavioral WDL WDL Madhu Hall MD - 04/21/2022 7:52 PM CDT Rapid Assessment Note History: Mahi Faye is a 22 year old female who presents with abdominal pain, nausea and vomiting. She's had intermittent symptoms for last 2 to 3 months. She has recurrent nausea, vomiting and nonbloody diarrhea. When her abdominal pain is present, it is typically in the upper abdomen. She denies any fever, dysuria, urinary frequency, vaginal bleeding or discharge. Exam: General: Alert, interactive Cardiovascular: Well perfused Lungs: No respiratory distress, no accessory muscle use Abdomen: Mild to moderate tenderness in the epigastric and right upper quadrant greater than left upper quadrant. Negative Srinivasan sign. No rebound or guarding. Neuro: Moving all 4 extremities Skin: Warm, dry Psych: Tearful Plan of Care: I evaluated the patient and developed an initial plan of care. I discussed this plan and explained that I, or one of my partners, would be returning to complete the evaluation. 04/21/2022 [facility] Portions of this medical record were completed by a scribe. UPON MY REVIEW AND AUTHENTICATION BY ELECTRONIC SIGNATURE, this confirms (a) I performed the applicable clinical services, and (b) the recordis accurate. Madhu Hall MD 04/21/222102 Madhu Hall MD 04/22/2251 documented in this encounter Miscellaneous Notes Result Encounter Note - Jona Cardona RN - 04/22/2022 2:54 AM CDT Final urine culture report is negative. Adult Negative Urine culture parameters per protocol: Any # Urogenital single or mixed organism, <10,000 col/ml single organism (cath/midstream), and > 3 organisms (No susceptibilities performed). [facility] Emergency Dept discharge antibiotic prescribed (If applicable): None Treatment recommendations per [facility] ED Lab Result Urine Culture protocol. documented in this encounter Plan of Treatment [...] ure are in CULTURE the results section. URINE CULTURE STAT 04/21/2022 9:06 PM Results for this CDT procedure are i n the results section. EXTRA TUBE STAT 04/21/2022 9:04 PM Results f or this CDT procedure are i n the results section. EXTRA PURPLE TOP TUBE [...] procedure are in MULTIPLEX the results section. documented in this encounter Results CT Abdomen Pelvis w Contrast (04/22/2022 [...] EXAM: CT ABDOMEN PELVIS W CONTRAST LOCATION: [facility] DATE/TIME: 04/22/2022 2:06 AM INDICATION: Upper abdominal [...] EXAM: CT ABDOMEN PELVIS W CONTRAST LOCATION: [facility] DATE/TIME: 04/22/2022 2:06 AM INDICATION: Upper abdominal [...] PM CDT EXAM: US ABDOMEN LIMITED LOCATION: [facility] DATE/TIME: 04/21/2022 9:51 PM INDICATION: RUQ pain [...] the original. EXAM: US ABDOMEN LIMITED LOCATION: [facility] DATE/TIME: 04/21/2022 9:51 PM INDICATION: RUQ pain [...] on. Madhu Hall MD IMG US ORDERABLES Urine Culture (04/21/2022 9:06 PM CDT) [facility] Method Time Signature Culture 10,000-50,000 PADMINI 04/23/2022 [...] Code Phon e Number [facility]U IDD LABORATORY [facility] [place] [address] Diag. Lab [address] [facility], Room [address] (ABNORMAL) UA with Microscopic reflex to Culture (04/21/2022 9:06 PM CDT) [facility] Method Time Signature Color Urine Yellow Colorless, 04/21/2022 LABORATORY Straw, 9:34 PM CDT Light Yellow, Yellow Appearance Urine Clear Clear 04/21/2022 [facility] Y 9:34 PM CDT Glucose Urine Negative Negative 04/21/2022 LABORATORY mg/dL 9:34 PM CDT Bilirubin Urine Negative Negative 04/21/2022 [facility] 9:34 PM CDT Ketones Urine Negative Negative 04/21/2022 LABORATORY mg/dL 9:34 PM CDT Specific Slater 1.031 1.003 - 04/21/2022 [facility] Y Urine 1.035 9:34 PM CDT Blood Urine Trace (A) Negative 04/21/2022 LABORATORY 9:34 PM CDT pH Urine 5.5 5.0 - 7.0 04/21/2022 [facility] 9:34 PM CDT Protein Albumin 20 (A) Negative 04/21/2022 LABORATORY Urine mg/dL 9:34 PM CDT Urobilinogen Normal Normal, 2.0 04/21/2022 LABORATORY Urine mg/dL 9:34 PM CDT Nitrite Urine Negative Negative 04/21/2022 [facility] 9:34 PM CDT Leukocyte Large (A) Negative 04/21/2022 LABORATORY Esterase Urine 9:34 PM CDT Bacteria Urine Few (A) None Seen 04/21/2022 [facility] /HPF 9:34 PM CDT Mucus Urine [...] LAB - URINE ORDERABLES Performing Organization Address City/State/ZIP [place] [address] Care Lab [address] Lab (1st floor, no room number) Extra Purple Top Tube (04/21/2022 9:04 PM [...] Organization Address City/State/[place] [address] Care Lab [address] Lab (1st floor, no room number) Extra Green Top (Ingram Heparin) Tube (04/21/2022 9:04 PM CDT) athologist [...] Organization Address City/State/[place] [address] Care Lab [address] Lab (1st floor, no room number) [...] Organization Address City/State/[place] [address] Care Lab [address] Lab (1st floor, no room number) [...] Organization Address City/State/ZIP Code [place] [address] Care Lab [address] Lab (1st floor, no room number) (ABNORMAL) Comprehensive metabolic panel (04/21/2022 9:04 PM CDT) [facility] Method Time Signature Sodium 140 136 - 145 04/21/2022 LABORATORY mmol/L 9:48 PM CDT Potassium 3.9 3.4 - 5.3 04/21/2022 LABORATORY mmol/L 9:48 PM CDT Chloride 104 98 - 107 04/21/2022 LABORATORY mmol/L 9:48 PM CDT Carbon Dioxide 25 22 - 29 04/21/2022 LABORATORY (CO2) mmol/L 9:48 PM CDT Anion Gap 11 7 - 15 04/21/2022 LABORATORY mmol/L 9:48 PM CDT Urea Nitrogen 7.8 6.0 - 20.0 04/21/2022 LABORATORY mg/dL 9:48 PM CDT Creatinine 0.78 0.51 - 04/21/2022 [facility] 0.95 mg/dL 9:48 PM CDT Calcium 9.6 8.6 - 10.0 04/21/2022 LABORATORY mg/dL 9:48 PM CDT Glucose 98 70 - 99 04/21/2022 LABORATORY mg/dL 9:48 PM CDT Alkaline 123 [...] PM CDT Bilirubin Total 0.2 <=1.2 04/21/2022 [facility] mg/dL 9:48 PM CDT GFR Estimate >90 >60 04/21/2022 [facility] mL/min/1.7 9:48 PM CDT 3m2 Comment: Effective July 08, 2021 eGF Rcr in adults is calculated using the 2020 CKD-EPI creatinine equation which includ es age and gender (Travis et al., NEJ, DOI: 10.1056/BMDVic0374387) Specimen Anatomical Collection Method / Collection Time Recei bibiana Time (Source) Location / Volume Laterality Blood STRUCTURE OF RIGHT Venipuncture / 04/21/2022 9:04 10/0 10/2021 9:20 UPPER LIMB / Unknown PM CDT PM CDT Unknown Madhu Hall MD LAB - BLOOD ORDERABLES Performing Organization Address City/State/ZIP Code [place] [phone] Care Lab [address] Lab (1st floor, no room number) (ABNORMAL) CBC (platelets, no diff) (04/21/2022 9:04 PM CDT) [facility] gist Method Time Signature WBC Count 9.7 4.0 [...] Address City/State/ZIP [place] [phone] Care Lab [address] Lab (1st floor, no room number) HCG QUALitative (blood) (04/21/2022 9:04 PM CDT) Patholo gist Method Time Signature hCG Serum Negative Negative PADMINI 04/21/2022 [facility] Qualitative 10:28 PM CDT Comment: This test is for screening purp oses. Results should be interpreted along with the clinical picture. Confirmation testing is available if warranted by ordering [id number], HCG Quantitative . Specimen Anatomical Collection Method / Collection Time Recei bibiana Time (Source) Location / Volume Laterality Blood STRUCTURE OF RIGHT Venipuncture / 04/21/2022 9:04 10/0 10/2021 9:20 UPPER LIMB / Unknown PM CDT PM CDT Unknown Madhu Hall MD LAB - BLOOD ORDERABLES Performing Organization Address City/State/ZIP Code [place] [phone] Care Lab [address] Lab (1st floor, no room number) Symptomatic; Unknown Influenza A/B & SARS-CoV2 (COVID-19) Virus PCR Multiplex Nasopharyngeal (04/21/2022 8:12 PM CDT) Analysis Performed At Patho logist Time Signature Influenza A Negative Negative 04/21/2022 [facility] PCR 8:57 PM CDT Influenza B Negative Negative 04/21/2022 [facility] PCR 8:57 PM CDT RSV PCR Negative Negative 04/21/2022 [facility] 8:57 PM CDT SARS CoV2 PCR [...] the Xpert Xpress CoV2/Flu/RSV Assay on the [employer] GeneXpert Instrument. This test should be ordered [...] management. This test was validated by the [facility]. These laboratories are certified under the Clinical Laboratory Improvement Amendments of 198 8 (CLIA-88) as qualified to perform high complexity laboratory testing. Madhu Hall MD LAB - MICRO GENERAL ORDERABL ES Performing Organization Address City/State/[place] [address] Care Lab [address] [facility] Lab (1st floor, no room number) documented in this encounter Visit Diagnoses Diagnosis Nausea and vomiting, unspecified vomitin g type Abdominal pain, epigastric documented in this encounter Administered Medications Inactive Administered Medications - up to 3 most recent administrations Medication Order MAR Action Action Date Dose Rate Site 0.9% sodium chloride BOLUS New Bag 04/21/2022 9:14 PM CDT 1,000 mLs 1000 mL/hr Intravenous, 1,000 mL, ONCE, at 1,000 mL/hr, Administer over 1 Hours, On Wed04/21/22 at 2105, For [address] saline flush Given 04/22/2022 1:56 AM CDT 65 mLs Intravenous, 100 mL, ONCE, On Wed04/22/22 at 0155, For 1 dose diphenhydrAMINE (BENADRYL) injection 25 mg Given 04/22/2022 1:23 AM CDT 25 mg 25 mg, Intravenous, ONCE, On Wed04/22/22 at 0115, For 1 dose iopamidol (ISOVUE-370) solution 500 mL Given 04/22/2022 1:56 AM CDT 90 mLs 500 mL, Intravenous, ONCE, On Wed04/22/22 at 0155, For 1 dose metoclopramide (REGLAN) injection 10 mg Given 04/22/2022 1:23 AM CDT 10 mg 10 mg, Intravenous, Administer over 2 Minutes, ONCE, On Wed04/22/22 at 0115, For 1 dose, Avoid use if patient has full bowel obstruction or perforation. Irritant. ondansetron (ZOFRAN ODT) ODT tab 4 mg Given 04/21/2022 8:12 PM CDT 4 mg 4 mg, Oral, ONCE, On Wed04/21/22 at 2010, For 1 dose, With dry hands, peel back foil backing and gently remove tablet. Do not push oral disintegrating tablet through foil backing. Administer immediately on tongue and oral disintegrating tablet dissolves in seconds, then swallow with saliva. Liquid not required. ondansetron (ZOFRAN) injection 4 mg Given 04/21/2022 9:13 PM CDT 4 mg 4 mg, Intravenous, ONCE, Administer over 2-5 Minutes, On Wed04/21/22 at 2105, For 1 dose, Irritant. documented in this encounter Active and Recently Administered Medications Times are shown in CDT. Scheduled Medication Order 04/20/2022 04/21/2022 04/22/2022 0.9% sodium chloride BOLUS (COMPLETED) 2 114 (New Bag - Provider: Brigitte Villavicencio RN) 0126 (Stopped - Provider: Brigitte johns RN) Intravenous, 1,000 mL, ONCE, at 1,000 mL /hr, Administer over 1 Hours, On Wed04/21/22 at 2105, For [address] saline flush (COMPLETED) 155 (Given - Provider: Jessica Diaz) Intravenous, 100 mL, ONCE, On Wed04/22/22 at 0155, For 1 dose diphenhydrAMINE (BENADRYL) injection 25 mg (COMPLETED) 122 (Given - Provider: Brigitte Villavicencio, JAZMYNE) 25 mg, Intravenous, ONCE, On Wed04/22/22 at 0115, For 1 dose iopamidol (ISOVUE-370) solution 500 mL (COMPLETED) 155 (Given - Provider: Jessica Diaz) 500 mL, Intravenous, ONCE, On Wed04/22/22 at 0155, For 1 dose metoclopramide (REGLAN) injection 10 mg (COMPLETED) 122 (Given - Provider: Brigitte Villavicencio RN) 10 mg, Intravenous, Administer over 2 Mi nutes, ONCE, On Wed04/22/22 at 0115, For 1 dose, Avoid use if patient has full bowel obstruction or perforation. Irritant. ondansetron (ZOFRAN ODT) ODT tab 4 mg (COMPLETED) 2011 (Given - Provider: Irma Lewis RN) 4 mg, Oral, ONCE, On Wed04/21/22 at 2010 , For 1 dose, With dry hands, peel back foil backing and gently remove tablet. Do not push oral disintegrating tablet through foil backing. Administer immediately on tongue and oral disintegrating table t dissolves in seconds, then swallow with saliva. Liquid not required. ondansetron (ZOFRAN) injection 4 mg (COMPLETED) 2112 (Given - Provider: Brigitte Villavicencio RN) 4 mg, Intravenous, ONCE, Administer over 2-5 Minutes, On Wed04/21/22 at 2105, For 1 dose, Irritant. documented in this encounter Additional Health Concerns Infection Onset Date Last Indicated Resolved Time Rule Out COVID-19 04/21/2022 04/21/2022 04/21/2022 8:5 7 PM CDT Assessment Noted Time PHQ-9 Depression Total Score: 6 09/05/2021 1:00 PM IT SUPPORT MANAGER documented as of this encounter Care Teams Granulator Operator Relationship Specialty Start Date End Date No Ref-Primary, PCP - General 08/23/21 Physician Tc Jama MD Pediatric Surgery 02/14/20 [facility] [address] [address] Eda Duarte Assigned Surgical Provider 10/02/20 MD Alex 420 [facility] [place] [address] [place] [address] Mike Sherwood Assigned Sleep Provider 01/31/21 MD Navid [address] [place] [address] Navid Paige, Assigned Musculoskeletal 03/16/21 MD Provider 909 [place] [address] Alber Estrada Assigned PCP 09/07/21 KARIN Lagunas [address] [address] [place] [address] documented as of this encounter
--- OUTSIDE RECORDS SUMMARY | 2022-04-23 23:39 | XMS_ITS | Encounter Summary ---
:2000 Author Organization [facility] Address [facility] [place] [address] Care Team Providers Name Role Phone Queta Fritz MD Unavailable [phone] Tc Jama MD Unavailable Tc Jama MD Unavailable Khalida Beyer MD Primary Care Provider Rosario Noe APRN CN Unavailable [phone] Eda Duarte MD Unavailable Mike Sherwood MD Unavailable [phone] Reason for Visit Diagnostic Imaging XR (Routine) - Closed Specialty Diagnoses / Procedures Referred By Contact Refer red To Contact Diagnoses Acute pain of right knee Haley Wei PA-C Procedures XR Knee Right 3 Views [address] [place] [address] Referral ID Status Reason Start Date Expiration Date Visits Requ ested Visits Authorized [id number] Closed 02/14/2021 02/14/2022 1 1 Encounter Details Date Type Department Care Team Description 02/14/2021 Ancillary Procedure [facility] Haley Wei [place] pain [facility] right [facility] [place] Stefanie PA-C [place] [address] [address] [place], [place] [address] [address] [place], [place] [phone] [address] Social History Tobacco Use Types Packs/Day Years Used Date Never Smoker 0 Smokeless Tobacco: Never Used Comments: no [...] or relatives? How often do you attend roman catholic or Never 2018 taoist services? Do you belong to any clubs or No 12/07/2018 organizations such as roman catholic groups, unions, fraternal or athletic groups, or [...] place to sleep or slept in a long term (including now)? Education Answer Date Recorded What is the highest level of school you have completed or 10 th grade 12/07/2018 the highest degree you have received? 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 documented as of this encounter Plan of Treatment Not on filedocumented as of this encounter Procedures Procedure Name Priority Date/Time Associated Diagnosis Comme nts XR KNEE RIGHT 3 Routine 02/14/2021 6:24 PM Acute pain of right Results for this VIEWS CDT knee procedure are i n the results section. documented in this encounter Results XR Knee Right 3 Views (02/14/2021 6:24 PM CDT) Anatomical Region Laterality Modality Thigh, Knee, Leg Right Computed Radiography Specimen (Source) Anatomical Location Collection Method / Collectio n Time Received Time / Laterality Volume Impressions 02/14/2021 6:36 PM CDT Impression: 1. ??Negative right knee. Normal joint a lignment and spacing. No fracture or joint effusion. BG PALMER MD SYSTEM ID: ??[id number] Narrative 02/14/2021 6:36 PM CDT Examination: ??XR KNEE RIGHT 3 VIEWS Date: ??02/14/2021 6:24 PM Clinical Information: Acute pain of righ t knee Comparison: 08/24/2018. Procedure Note Bg Palmer MD - 1 Examination: XR KNEE RIGHT 3 VIEWS Date: 02/14/2021 6:24 PM Clinical Information: Acute pain of righ t knee Comparison: 08/24/2018. Impression: 1. Negative right knee. Normal joint ali gnment and spacing. No fracture or joint effusion. BG PALMER MD SYSTEM ID: [id number] Haley Watts Sanjuana PA-C IMG DIAGNOSTIC IMAGING ORDER LINDSAY documented in this encounter Visit Diagnoses Diagnosis Acute pain of right knee documented in this encounter Additional Health Concerns Assessment Noted Time PHQ-9 Depression Total Score: 13 06/26/2020 10:[address] documented as of this encounter Care Teams Heavy Duty Truck Mechanic Relationship Specialty Start Date End Date Khalida Beyer MD PCP - General Psychiatry 05/28/20 08/22/21 Queta Fritz Assigned PCP 03/04/14 04/12/21 MD Liza [facility] E [facility] [address] [place], [place] [id number] Tc Jama MD MD Pediatric Surgery 02/14/[address] [facility] [address] [id number] Tc Jama MD Assigned Pediatric 05/10/20 09/06/21 [address] Specialist Provider 505 [place] [address] Rosario Noe, Assigned OBGYN Provider 07/21/20 01/16/22 LEAD MAN OVER ALL DIES IN PATTERN SHOP CNM [address] [facility] 200 [place] [address] Eda Duarte, Assigned Surgical 10/02/20 Provider 420 [facility] [address] [place] [address] Mike Sherwood Assigned Sleep Provider 01/31/21 MD Navid [address] [place] [address] documented as of this encounter
--- OUTSIDE RECORDS SUMMARY | 2022-04-23 23:39 | XMS_ITS | Encounter Summary ---
:2000 Author Organization [facility] Address [address] [place] [address] Care Team Providers Name Role Phone Queta Fritz MD Unavailable [phone] Tc Jama MD Unavailable Tc Jama MD Unavailable Khalida Beyer MD Primary Care Provider Rosario Noe APRN CN Unavailable [phone] Eda Duarte MD Unavailable Mike Sherwood MD Unavailable [phone] Reason for Visit Reason Comments Pain Consultation (Routine) - Closed Specialty Diagnoses / Procedures Referred By Contact Refer red To Contact Orthopaedic Surgery Diagnoses Acute pain of right knee Haley Wei [facility] K[facility]IN [facility] [address] [place] [address] [facility] [address] [place] [address] Phone: Fax: Referral ID Status Reason Start Date Expiration Date Visits Requ ested Visits Authorized [id number] Closed 02/14/2021 02/14/2022 1 1 Encounter Details Date Type Department Care Team Description 03/11/2021 Office Visit [facility] Haley Wei PA-C [address] [place] [address] Recurrent subluxation of right patella ( Primary Dx); Orthopedic Clinic Navid Paige MD [address] [place] [address] Acute pain of right knee [place] [id number] [place] [address] [address] [place] [address] Social History Tobacco Use Types Packs/Day Years Used Date Never Smoker 0 Smokeless Tobacco: Never Used Tobacco Cessation: [...] or relatives? How often do you attend restorationism or Never 2018 quaker services? Do you belong to any clubs or No 12/07/2018 organizations such as restorationism groups, unions, fraternal or athletic groups, or [...] place to sleep or slept in a assisted (including now)? Education Answer Date Recorded What is the highest level of school you have completed or 10 th grade 12/07/2018 the highest degree you have received? 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 documented as of this encounter Last Filed Vital Signs Vital Sign Reading Time Taken Comments Blood Pressure 132/80 03/11/2021 4:18 PM CDT Pulse - - Temperature - - Respiratory Rate - - Oxygen Saturation - - Inhaled Oxygen Concentration - - Weight 113.4 kg (250 lb) 03/11/2021 4:18 PM CDT Height 172.7 cm (5' 8) 03/11/2021 4:18 PM CDT Body Mass Index 38.01 03/11/2021 4:18 PM CDT Body Mass Index Percentile 98.25 % 03/11/2021 4:18 PM CD T Growth Chart: CDC (Girls, 2-20 Years) documented in this encounter Patient Instructions Patient InstructionsGinny Haney - 03/11/2021 4:00 PM CDT 1. Acute pain of right knee Patellofemoral pain. No objective findings of recent patella dislocation. Would recommend to follow up with Dr. Olivas, your previous knee surgeon. Also would recommend Physical Therapy for core stabilization, knee range of motion, strengthening and possible patellar taping. [facility]. Call my office with any questions or concerns, . documented in this encounter Progress Notes Navid Paige MD - 03/11/2021 4:00 PM CDT Images from the original note were not included. [facility] Physicians Orthopaedic Surgery Consultation by Navid Paige M.D. Mahi Squires Neyda Age: [age] year old Date of : 2000 Requesting physician: Khalida Magallon Background history: DX: 1. Mood disorder 2. Obesity 3. ADHD 4. Learning disability and developmental delay 5. Insomnia TREATMENTS: 1. Approximately 2014, right knee surgery [facility], Dr. Vasquez History of Present Illness: 20 year old female who presents her clinic because of chronic right knee pain/instability after a recent ED visit. Patient has a surgical history at [facility] with what sounds like an MPFL reconstruction approximately 5 years ago. More recently without a significant traumatic event patient has been experiencing increased pain and instability of the knee. [facility] of this [facility]. During her last visit she was advised to return to her treating physician but for some reason she also has had an appointment made here. There are recently no objective fight patellofemoral dislocations. She is ambulating with the help of 2 crutches and a knee immobilizer. She states that there is impossible for her to ambulate without these. She does not use any pain medicationcurrently. She has not seen a physical therapy. She has not had any injections. Social: Occupation: not working, graduated high school Living situation: lives at home, trying to establish fdc Hobbies / Sports: horse back riding Smoking: No Alcohol: No Illicit drug use: No Physical Exam: EXAMINATION pertinent findings: PSYCH: Pleasant, healthy-appearing, alert, oriented x3, cooperative. Normal mood and affect. VITAL SIGNS: Blood pressure 132/80, height 1.727 m (5' 8), weight 113.4 kg (250 lb), not currently . Reviewed nursing intake notes. Body mass index is 38.01 kg/m??. RESP: non labored breathing ABD: benign, soft, non-tender, no acute peritoneal findings SKIN: grossly normal LYMPHATIC: grossly normal, no adenopathy, no extremity edema NEURO: grossly normal , no motor deficits VASCULAR: satisfactory perfusion of all extremities MUSCULOSKELETAL: Alignment: Slight valgus alignment of bilateral lower extremities. Gait: Walks with an antalgic gait holding her knee in full extension. The right hip exhibits a full range of motion. No pain upon rotations. Lasegue's test is negative. R knee: Well-healed incision from previous arthroscopy and what seems to be an MPFL reconstruction. ROM 125-0-10 ??. Straight leg raise +. No redness, warmth or skin changes present. Effusion Yes. Ligamentously stable in both ML and AP direction. Normal PF tracking without crepitus. Apprehension +/-. Meniscal provocation tests are negative. No tenderness to palpation over the joint line. No tenderness over the medial retinaculum. Right LE: Thigh and leg compartments soft and compressible +Quad/TA/GSC/FHL/EHL SILT DP/SP/Kaur/Saph/Tib nerve distributions Palpable dorsalis pedis pulse Data: All laboratory data reviewed All imaging studies reviewed by me personally. XR knee right 03/06/2021: My interpretation: Normal tibiofemoral joint. Patella alto with a Zach- Estevan index of 1.35. Suboptimal lateral image so proper evaluation of a bump or crossing sign is impossible. Postsurgical changes of the patella which could be consistent with MPFL reconstruction. Indication of trochlear dysplasia. Assessment and Plan: Assessment: 20-year-old female with pain and possible instability of patellofemoral joint after previous MPFL reconstruction at [facility]. Plan: I discussed my findings with the patient. As she was advised by the urgent care and ED doctors it would be liao to follow-up with her treating physician. Since no proper patellofemoral dislocation havebeen objectified recently it would be appropriate to initiate physical therapy for range of motion strengthening exercises as well as core stability, gait training potentially taping. Patient understands and agrees that it treatment plan as set forth. We will follow-up on an as-needed basis. Thank you for your referral. Navid Paige MD, PhD Offbearer Adult Reconstruction [facility] Department of Orthopaedic Surgery Pager DATA for DOCUMENTATION: Past Medical History: Patient Active Problem List Diagnosis ??? Chromosomal abnormality ??? Learning disability ??? Anxiety ??? Insomnia ??? Aggression with talk of suicide/homicide ??? Suicidal ideation ??? Development delay ??? Mild anemia ??? Slow transit constipation ??? Pilonidal sinus ??? Pilonidal disease ??? S/P surgical removal of pilonidal cyst ??? Noninfectious ileitis ??? Suicidal ideations ??? JANETH (generalized anxiety disorder) ??? Borderline intellectual functioning ??? Moderate major depression (H) ??? Urgency-frequency syndrome ??? Nocturia ??? Snores ??? Mood disorder (H) ??? Adjustment disorder with mixed disturbance of emotions and conduct ??? Organic mood disorder Past Medical History: Diagnosis Date ??? ADHD (attention deficit hyperactivity disorder) ??? 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 Obesity due to excess calories ??? Seasonal allergies ??? Tonsillar abscess, S/P drainage 07/16/2014 Also see scanned health assessment forms. Past Surgical History: Past Surgical History: Procedure [...] OR ??? INCISION AND DRAINAGE TONSIL, COMBINED 2014 under general anesthesia Social History: Social History Socioeconomic History ??? Marital status: Single Spouse name: Not on file ??? Number of children: Not on file ??? Years of education: Not on file ??? Highest education level: 10th grade Occupational History ??? Not on file Tobacco Use ??? Smoking status: Never Smoker ??? Smokeless tobacco: Never Used ??? Tobacco comment: no smokers in household Substance and Sexual Activity ??? Alcohol use: No ??? Drug use: No ??? Sexual activity: Never Other Topics Concern ??? Parent/sibling w/ CABG, [place] or angioplasty before 65F 55M? Not Asked Social History Narrative ??? Not on file Social Determinants of Health Financial Resource Strain: ??? Difficulty of Paying Living Expenses: Food Insecurity: ??? Worried About Running Out of Food in the Last Year: ??? Ran Out of Food in the Last Year: Transportation Needs: ??? Lack of Transportation (Medical): ??? Lack of Transportation (Non-Medical): Physical Activity: ??? Days of Exercise per Week: ??? Minutes of Exercise per Session: Stress: ??? Feeling of Stress : Social Connections: ??? Frequency of Communication with Friends and Family: ??? Frequency of Social Gatherings with Friends and Family: ??? Attends Yarsanism Services: ??? Active Member of Clubs or Organizations: ??? Attends Club or Organization Meetings: ??? Marital Status: Intimate Partner Violence: ??? Fear of Current or Ex-Partner: ??? Emotionally Abused: ??? Physically Abused: ??? Sexually Abused: Family History: Family History Problem Relation Age of Onset ??? Hypertension Mother ??? Genetic Disorder Father ALS ??? No Known Problems Brother ??? Cancer Paternal Grandfather lung ??? Anesthesia Reaction Other Negative Medications: Current Outpatient Medications Medication Sig ??? Condoms - Female (FC FEMALE CONDOM) MISC Use with every intercourse not to be use with a male condom ??? diclofenac (VOLTAREN) 1 % topical gel Apply 2 g topically 3 times daily as needed for moderate pain (apply to right knee) ??? divalproex sodium extended-release (DEPAKOTE ER) 250 MG 24 hr tablet Take 1 tablet (250 mg) by mouth At Bedtime ??? hydrOXYzine (ATARAX) 25 MG tablet Take 1 tablet (25 mg) by mouth every 4 hours as needed for anxiety ??? Melatonin 10 MG TABS tablet Take 10 mg by mouth nightly as needed for sleep ??? QUEtiapine (SEROQUEL) 300 MG tablet Take 300 mg by mouth At Bedtime ??? QUEtiapine (SEROQUEL) 50 MG tablet Take 50 mg by mouth every 4 hours as needed Current Facility-Administered Medications Medication ??? etonogestrel (NEXPLANON) subdermal implant 68 mg Review of Systems: A comprehensive 10 point review of systems (constitutional, ENT, cardiac, peripheral vascular, lymphatic, respiratory, GI, , Musculoskeletal, skin, Neurological) was performed and found to be negative except as described in this note. See intake form completed by patient documented in this encounter Plan of Treatment Not on filedocumented as of this encounter Visit Diagnoses Diagnosis Recurrent subluxation of right patella - Primary Recurrent dislocation of lower leg joint Acute pain of right knee documented in this encounter Additional Health Concerns Assessment Noted Time PHQ-9 Depression Total Score: 13 06/26/2020 10:[address] documented as of this encounter Care Teams Data Keyer Relationship Specialty Start Date End Date Khalida Beyer MD PCP - General Psychiatry 05/28/20 08/22/21 Queta Fritz Assigned PCP 03/04/14 04/12/21 MD Liza [facility] JUDITH [address] [address] Tc Jama MD MD Pediatric Surgery 02/14/[address] [place] [address] Tc Jama MD Assigned Pediatric 05/10/20 09/06/21 [address] Specialist Provider 505 [place] [address] Rosario Noe, Assigned OBGYN Provider 07/21/20 01/16/22 RETAIL OPERATIONS SPECIALIST CNM [address] [place] [address] Eda Duarte, Assigned Surgical 10/02/20 MD Provider 420 [facility] 394 [place] [address] Mike Sherwood Assigned Sleep Provider 01/31/21 MD Navid [address] [place] [address] documented as of this encounter
--- OUTSIDE RECORDS SUMMARY | 2022-04-23 23:39 | XMS_ITS | Encounter Summary ---
:2000 Author Organization [facility] Address [address] [place] [address] Care Team Providers Name Role Phone Tc Jama MD Unavailable Tc Jama MD Unavailable Rosario Noe APRN CNM Unavailable [phone] Eda Duarte MD Unavailable Mike Sherwood MD Unavailable [phone] Navid Paige MD Unavailable Norma Ruggiero APRN HIGH SCHOOL PHYSICAL EDUCATION TEACHER Unavailable [phone] Ref-Primary, Physician Primary Care Provider [phone] Encounter Details Date Type Department Care Team Description 08/23/2021 Travel Social History Tobacco Use Types Packs/Day [...] get together with friends Three times a adrian kim 12/07/2018 or relatives? How often do you attend samaritan or Never 2018 taoist services? Do you belong to any clubs or No 12/07/2018 organizations such as samaritan groups, unions, fraternal or athletic groups, or [...] place to sleep or slept in a long-term (including now)? Education Answer Date Recorded What is the highest level of school you have completed or 10 th grade 12/07/2018 the highest degree you have received? 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 documented as of this encounter Plan of Treatment Not on filedocumented as of this encounter Visit Diagnoses Not on filedocumented in this encounter Additional Health Concerns Infection Onset Date Last Indicated Resolved Time Rule Out COVID-19 08/23/2021 08/23/2021 08/23/2021 9:1 7 PM ROTARY VENEER MACHINE OPERATOR Assessment Noted Time PHQ-9 Depression Total Score: 13 06/26/2020 10:[address] documented as of this encounter Care Teams Metal Bonding Assembler Relationship Specialty Start Date End Date No Ref-Primary, PCP - General 08/23/21 Physician Tc Jama MD Pediatric Surgery 02/14/[address] [place] [address] Tc Jama, Assigned Pediatric 05/10/20 Specialist Provider [address] [place] [address] Rosario Noe, Assigned OBGYN Provider 07/21/20 01/16/22 EDGE INKER HEELS CNM [address] [place] [address] Eda Duarte Assigned Surgical Provider 10/02/20 MD Alex 420 [facility] [address] [place] [address] Mike Sherwood Assigned Sleep Provider 01/31/21 MD Navid [address] [place] [address] Navid Paige MD Assigned Musculoskeletal 03/16/[address] [place] [address] Provider [place], [place] [address] Norma Ruggiero, Assigned PCP 07/27/21 09/06/21 [employer] HIGH SCHOOL PHYSICAL EDUCATION TEACHER [facility] BE[address]AH [address]ESPO [address] [place], [place] [address] documented as of this encounter
--- OUTSIDE RECORDS SUMMARY | 2022-04-23 23:39 | XMS_ITS | Encounter Summary ---
:2002 Author Organization [facility] Address [address] [place] [address] Care Team Providers Name Role Phone Queta Fritz MD Unavailable [phone] Tc Jama MD Unavailable Tc Jama MD Unavailable Khalida Beyer MD Primary Care Provider Rosario Noe APRN CNM Unavailable [phone] Eda Duarte MD Unavailable Mkie Sherwood MD Unavailable [phone] Navid aPige MD Unavailable Norma Ruggiero EMAIL MARKETING INTERN WARP SPINNER Unavailable [phone] Queta Fritz MD Unavailable [phone] Norma Ruggiero EMAIL MARKETING INTERN WARP SPINNER Unavailable [phone] Ref-Primary, Physician Primary Care Provider [phone] Alber Estrada PA-C Unavailable [phone] Reason for Visit Reason Onset Date Comments MH/CD Inpatient 02/22/2021 Encounter Details Date Type Department Care Team Description 02/22/2021 Telephone [facility] Generic, Behavioral MH/ CD Inpatient Behavioral Health In eloisa Carbone MD [address] [place] [id number] Social History Tobacco Use Types Packs/Day Years [...] or relatives? How often do you attend faith or Never 2018 sikhism services? Do you belong to any clubs or No 12/07/2018 organizations such as faith groups, unions, fraternal or athletic groups, or [...] place to sleep or slept in a retirement (including now)? Education Answer Date Recorded What is the highest level of school you have completed or 10 th grade 12/07/2018 the highest degree you have received? 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 documented as of this encounter Miscellaneous Notes Telephone Encounter - Evelia Weller - 02/22/2021 11:55 PM CDT Patient cleared and ready for behavioral bed placement: Yes S: 20 y/o female presented to the [facility] with SI and HI. B: Hx borderline intellectual functioning, autism, ADHD, anxiety, SIB. Pt called EMS from her [facility] with complaints of knee pain and both fci and guardian declined consenting to treatment as she had been seen in an urgent care already. Pt became upset, throwing objects at home and endorsedsuicidal ideation to EMS workers. Suicidal threats to grab a knife and stab herself. Jewel Diameter Gauger reported pt was throwing things at her fci and made HI threats toward her mother. Jewel Diameter Gauger determined she made HI threats while angry and is no longer HI. No reported psychosis or substance abuse. Pt stated she is unable to contract for safety at the fci. A: Voluntary. Mother is guardian. No acute medical concerns. Negative for COVID. Drug screen and HCG negative. R: 0058 ED reporting pt is wearing an immobilizer for comfort and uses it PRN. Pt has a hx of chronic knee pain. ED will check with guardian about placement on a general adult unit. No beds available on [address] [place] [address]. 0107 ED checked with guardian who has consented to placement on a general adult MH unit. Identifyingplacement options. 0135 On-Call paged. 0137 Dr. Sung accepts and requesting pt transfer without the knee immobilizer. Dr. Noriega reporting he can transfer pt to behavioral without the knee immobilizer. 5500AB/[place]. Placed in queue at 0145. Unit notified at 0148. ED notified at 0152. documented in this encounter Plan of Treatment Not on filedocumented as of this encounter Visit Diagnoses Not on filedocumented in this encounter Additional Health Concerns Infection Onset Date Last Indicated Resolved Time Rule Out COVID-19 08/23/2021 08/23/2021 08/23/2021 9:1 7 PM GARAGE WORKER Rule Out COVID-19 04/21/2022 04/21/2022 04/21/2022 8:5 7 PM CDT Assessment Noted Time PHQ-9 Depression Total Score: 13 06/26/2020 10:[address] documented as of this encounter Care Teams Public Health Sanitarian Technician Relationship Specialty Start Date End Date Khalida Beyer MD PCP - General Psychiatry 05/28/20 08/22/21 No Ref-Primary, PCP - General 08/23/21 Physician Queta Fritz Assigned PCP 03/04/14 04/12/21 MD Liza [address] [facility] 100 [place] [address] Tc Jama MD Pediatric Surgery 02/14/20 [facility] [address] [address] Tc Jama, Assigned Pediatric 05/10/20 Specialist Provider [facility] BEKAH MOLINA [address] [address] Rosario Noe, Assigned OBGYN Provider 07/21/20 01/16/22 EMAIL MARKETING INTERN CNM [address] [place], [place] [id number] Eda Duarte Assigned Surgical Provider 10/02/20 MD Alex [address] [facility] 394 [place] [address] Mike Sherwood Assigned Sleep Provider 01/31/21 MD Navid [address] [place] [id number] Navid Paige MD Assigned Musculoskeletal 03/16/21 909 [facility] Provider [place], [place] [id number] Norma Ruggiero, Assigned PCP 04/13/21 05/24/21 EMAIL MARKETING INTERN WARP SPINNER [address] [place], [place] [address] Queta Fritz Assigned PCP 05/25/21 07/26/21 MD Liza [address] [facility] [address] [place], [place] [address] Norma Ruggiero, Assigned PCP 07/27/21 09/06/21 EMAIL MARKETING INTERN WARP SPINNER [address] [place], [place] [address] Alber Estrada Assigned PCP 09/07/21 KARIN Lagunas [address] [place] [address] documented as of this encounter
--- OUTSIDE RECORDS SUMMARY | 2022-04-23 23:39 | XMS_ITS | Encounter Summary ---
:2002 Author Organization [facility] Address [address] [place] [address] Care Team Providers Name Role Phone Queta Fritz MD Unavailable Tc Jama MD Unavailable Tc Jama MD Unavailable Khalida Beyer MD Primary Care Provider Rosario Noe APRN CN Unavailable [phone] Eda uDarte MD Unavailable Mike Sherwood MD Unavailable [phone] Encounter Details Date Type Department Care Team Description 02/14/2021 Travel Social History Tobacco Use Types Packs/Day [...] or relatives? How often do you attend jew or Never 2018 taoist services? Do you belong to any clubs or No 12/07/2018 organizations such as jew groups, unions, fraternal or athletic groups, or [...] place to sleep or slept in a snf (including now)? Education Answer Date Recorded What is the highest level of school you have completed or 10 th grade 12/07/2018 the highest degree you have received? 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 COVID-19 Exposure Response Date Recorded In the [...] documented as of this encounter Care Teams Facilities Manager Relationship Specialty Start Date End Date Khalida Beyer MD PCP - General Psychiatry 05/28/20 08/22/21 Queta Fritz Assigned PCP 03/04/14 04/12/21 MD Liza [address] [facility] 100 [place] [address] Tc Jama MD MD Pediatric Surgery 02/14/20 [facility] [address] [address] Tc Jama MD Assigned Pediatric 05/10/20 09/06/21 [address] Specialist Provider 505 [place] [address] Rosario Noe, Assigned OBGYN Provider 07/21/20 01/16/22 INDUCTION COORDINATION POWER ENGINEER CNM [address] [facility] 200 [place] [address] Eda Duarte, Assigned Surgical 10/02/20 MD Provider 420 [facility] 394 [place] [address] Mike Sherwood Assigned Sleep Provider 01/31/21 MD Navid [address] [place] [address] documented as of this encounter
--- OUTSIDE RECORDS SUMMARY | 2022-04-23 23:39 | XMS_ITS | Encounter Summary ---
:2002 Author Organization [facility] Address [address] [place] [address] Care Team Providers Name Role Phone Queta Fritz MD Unavailable [phone] Tc Jama MD Unavailable Tc Jama MD Unavailable Khalida Beyer MD Primary Care Provider Rosario Noe APRN CN Unavailable [phone] Eda Duarte MD Unavailable Mike Sherwood MD Unavailable [phone] Navid Paige MD Unavailable Encounter Details Date Type Department Care Team Description 03/17/2021 Travel Social History Tobacco Use Types Packs/Day [...] or relatives? How often do you attend rastafarian or Never 2018 druze services? Do you belong to any clubs or No 12/07/2018 organizations such as rastafarian groups, unions, fraternal or athletic groups, or [...] place to sleep or slept in a skilled nursing (including now)? Education Answer Date Recorded What is the highest level of school you have completed or 10 th grade 12/07/2018 the highest degree you have received? 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 documented as of this encounter Plan of Treatment Not on filedocumented as of this encounter Visit Diagnoses Not on filedocumented in this encounter Additional Health Concerns Assessment Noted Time PHQ-9 Depression Total Score: 13 06/26/2020 10:[address] documented as of this encounter Care Teams Resident Intern Relationship Specialty Start Date End Date Khalida Beyer MD PCP - General Psychiatry 05/28/20 08/22/21 Queta Fritz Assigned PCP 03/04/14 04/12/21 MD Liza [address] [facility] 100 [place] [address] Tc Jama MD Pediatric Surgery 02/14/[address] [place] [id number] Tc Jama, Assigned Pediatric 05/10/20 MD Specialist Provider [address] 505 [place] [address] Rosario Noe, Assigned OBGYN Provider 07/21/20 01/16/22 AGENT CNM [address] [place] [address] Eda Duarte Assigned Surgical Provider 10/02/20 MD Alex 420 [facility] 394 [place] [address] Mike Sherwood Assigned Sleep Provider 01/31/21 MD Navid [address] [place] [address] Navid Paige MD Assigned Musculoskeletal 03/16/[address] [place] [address] documented as of this encounter
--- OUTSIDE RECORDS SUMMARY | 2022-04-23 23:39 | XMS_ITS | Encounter Summary ---
:2002 Author Organization [facility] Address [address] [place] [address] Care Team Providers Name Role Phone Tc Jama MD Unavailable Tc Jama MD Unavailable Rosario Noe APRN CNM Unavailable [phone] Eda Duarte MD Unavailable Mike Sherwood MD Unavailable [phone] Navid Paige MD Unavailable Norma Ruggiero APRN STEEL CHIPPER Unavailable [phone] Ref-Primary, Physician Primary Care Provider [phone] Alber Estrada PA-C Unavailable [phone] Encounter Details Date Type Department Care Team Description 08/23/2021 Documentation Only INTERFACED REPORT Unknown, Provider Social History Tobacco Use Types Packs/Day Years [...] or relatives? How often do you attend methodist or Never 2018 muslim services? Do you belong to any clubs or No 12/07/2018 organizations such as methodist groups, unions, fraternal or athletic groups, or [...] place to sleep or slept in a usp (including now)? Education Answer Date Recorded What is the highest level of school you have completed or 10 th grade 12/07/2018 the highest degree you have received? 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 documented as of this encounter Plan of Treatment Not on filedocumented as of this encounter Visit Diagnoses Not on filedocumented in this encounter Additional Health Concerns Infection Onset Date Last Indicated Resolved Time Rule Out COVID-19 08/23/2021 08/23/2021 08/23/2021 9:1 7 PM BUSINESS MACHINES TEACHER Rule Out COVID-19 04/21/2022 04/21/2022 04/21/2022 8:5 7 PM CDT Assessment Noted Time PHQ-9 Depression Total Score: 13 06/26/2020 10:[address] documented as of this encounter Care Teams Instructional Developer Relationship Specialty Start Date End Date No Ref-Primary, PCP - General 08/23/21 Physician Tc Jama MD Pediatric Surgery 02/14/[address] [place] [address] Tc Jama, Assigned Pediatric 05/10/20 MD Specialist Provider [address] 505 [place] [address] Rosario Noe, Assigned OBGYN Provider 07/21/20 01/16/22 MANUFACTURING AREA MANAGER CNShaw [address] [facility] 200 [place] [address] Eda Duarte Assigned Surgical Provider 10/02/20 MD Alex 420 [facility] 394 [place] [address] Mike Sherwood Assigned Sleep Provider 01/31/21 MD Navid [address] [place] [address] Navid Paige MD Assigned Musculoskeletal 03/16/21 909 [facility] Provider [place], [place] [id number] Norma Ruggiero, Assigned PCP 07/27/21 09/06/21 MANUFACTURING AREA MANAGER STEEL CHIPPER [address] [place], [place] [id number] Alber Estrada Assigned PCP 09/07/21 KARIN Lagunas [address] [place] [address] documented as of this encounter
--- OUTSIDE RECORDS SUMMARY | 2022-04-23 23:39 | XMS_ITS | Encounter Summary ---
:2002 Author Organization [facility] Address [address] [place] [address] Care Team Providers Name Role Phone Queta Fritz MD Unavailable [phone] Tc Jama MD Unavailable Tc Jama MD Unavailable Khalida Beyer MD Primary Care Provider Rosario Noe APRN CN Unavailable [phone] Eda Duarte MD Unavailable Mike Sherwood MD Unavailable [phone] Encounter Details Date Type Department Care Team Description 02/22/2021 Travel Social History Tobacco Use Types Packs/Day [...] or relatives? How often do you attend religion or Never 2018 spiritism services? Do you belong to any clubs or No 12/07/2018 organizations such as religion groups, unions, fraternal or athletic groups, or [...] to sleep or slept in a senior care (including now)? Education Answer Date Recorded What is the highest level of school you have completed or 10 th grade 12/07/2018 the highest degree you have received? 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 COVID-19 Exposure Response Date Recorded In the [...] documented as of this encounter Care Teams Financial Quantitative Analyst Relationship Specialty Start Date End Date Khalida Beyer MD PCP - General Psychiatry 05/28/20 08/22/21 Queta Fritz Assigned PCP 03/04/14 04/12/21 MD Liza [address] [facility] 100 [place] [address] Tc Jama MD MD Pediatric Surgery 02/14/20 [facility] [address] [address] Tc Jama MD Assigned Pediatric 05/10/20 09/06/21 [address] Specialist Provider 505 [place] [address] Rosario Noe, Assigned OBGYN Provider 07/21/20 01/16/22 GLAZIER APPRENTICE CNM [address] [facility] 200 [place] [address] Eda Duarte, Assigned Surgical 10/02/20 MD Provider 420 [facility] 394 [place] [address] Mike Sherwood Assigned Sleep Provider 01/31/21 MD Navid [address] [place] [address] documented as of this encounter
--- OUTSIDE RECORDS SUMMARY | 2022-04-23 23:39 | XMS_ITS | Encounter Summary ---
:2002 Author Organization [facility] Address [address] [place] [address] Care Team Providers Name Role Phone Queta Fritz MD Unavailable [phone] Tc Jama MD Unavailable cT Jama MD Unavailable Khalida Beyer MD Primary Care Provider Rosario Noe APRN CN Unavailable [phone] Eda Duarte MD Unavailable Mike Sherwood MD Unavailable [phone] Encounter Details Date Type Department Care Team Description 03/05/2021 Travel Social History Tobacco Use Types Packs/Day [...] or relatives? How often do you attend adventism or Never 2018 methodist services? 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 documented as of this encounter Plan of Treatment Not on filedocumented as of this encounter Visit Diagnoses Not on filedocumented in this encounter Additional Health Concerns Assessment Noted Time PHQ-9 Depression Total Score: 13 06/26/2020 10:[address] documented as of this encounter Care Teams Internal Medicine Physician Assistant Relationship Specialty Start Date End Date Khalida Beyer MD PCP - General Psychiatry 05/28/20 08/22/21 Queta Fritz Assigned PCP 03/04/14 04/12/21 MD Liza [address] [facility] 100 [place] [address] Tc Jama MD MD Pediatric Surgery 02/14/20 [facility] [address] [address] Tc Jama MD Assigned Pediatric 05/10/20 09/06/21 [address] Specialist Provider 505 [place] [address] Rosario Noe, Assigned OBGYN Provider 07/21/20 01/16/22 AIRCRAFT ARMORER CNM [address] [facility] 200 [place] [address] Eda Duarte, Assigned Surgical 10/02/20 MD Provider 420 [facility] 394 [place] [address] Mike Sherwood Assigned Sleep Provider 01/31/21 MD Navid [address] [place] [address] documented as of this encounter
--- OUTSIDE RECORDS SUMMARY | 2022-04-23 23:39 | XMS_ITS | Encounter Summary ---
:2002 Author Organization [place] Address [address] [place] [address] Care Team Providers Name Role Phone Tc Jama MD Unavailable Tc Jama MD Unavailable Rosario Noe APRN CNM Unavailable [phone] Eda Duarte MD Unavailable Mike Sherwood MD Unavailable [phone] Navid Paige MD Unavailable Norma Ruggiero APRN GREENHOUSE OR NURSERY TRANSPLANTER Unavailable [phone] Ref-Primary, Physician Primary Care Provider [phone] Reason for Visit Reason Comments Pharyngitis Encounter Details Date Type Department Care Team Description 08/23/2021 [facility] Navid Esteban, Viral URI Emergency Dept [address] [facility] [phone] [facility] [phone] [place], [place] [address] (Wo rk) Social History Tobacco Use Types [...] or relatives? How often do you attend mandaeism or Never 2018 quaker services? Do you belong to any clubs or No 12/07/2018 organizations such as mandaeism groups, unions, fraternal or athletic groups, or [...] at Date Recorded Female 09/04/2021 9:00 PM CONTAINER WASHER COVID-19 Exposure Response Date Recorded In the last month, have you been in contact with No / Unsure 08/23/2021 6:55 PM CONTAINER WASHER someone who was confirmed or suspected to have Coronavirus / COVID-19? documented as of this encounter Last Filed Vital Signs Vital Sign Reading Time Taken Comments Blood Pressure 159/81 08/23/2021 7:58 PM CONTAINER WASHER Pulse 102 08/23/2021 7:56 PM CONTAINER WASHER Temperature 37.1 ??C (98.8 ??F) 08/23/2021 7:56 PM CONTAINER WASHER Respiratory Rate 16 08/23/2021 7:56 PM CONTAINER WASHER Oxygen Saturation 99% 08/23/2021 7:56 PM CONTAINER WASHER Inhaled Oxygen Concentration - - Weight - - Height - - Body Mass Index - - documented in this encounter Discharge Instructions AttachmentsThe following attachments cannot be sent through Care Everywhere.URI, Viral, No Abx (Adult) (Rwandan)documented in this encounter Medications at Time of Discharge Medication Sig Dispensed Refills Start Date End Date Melatonin 10 MG TABS Take 10 mg by mouth 0 tablet nightly as needed for sleep QUEtiapine (SEROQUEL) Take 300 mg by mouth 0 300 MG tablet At Bedtime QUEtiapine (SEROQUEL) Take 50 mg by mouth 0 50 MG tablet every 4 hours as needed ondansetron (ZOFRAN Take 1 tablet (4 mg) 10 tablet 0 202108/26/2021 ODT) 4 MG ODT tab by mouth every 8 hours as needed for nausea Condoms - Female (FC Use with every 5 each 11 06/26/2020 09/05/2021 FEMALE CONDOM) intercourse not to be MISCIndications: Well use with a male condom adolescent visit with abnormal findings diclofenac (VOLTAREN) 1 Apply 2 g topically 3 50 g 0 0 02/27/2021 09/05/2021 % topical times daily as needed gelIndications: Pain for moderate pain (apply to right knee) divalproex sodium Take 1 tablet (250 mg) 30 tablet 0 202009/05/2021 extended-release by mouth At Bedtime (DEPAKOTE ER) 250 MG 24 hr tabletIndications: Adjustment disorder with mixed disturbance of emotions and conduct hydrOXYzine (ATARAX) 25 Take 1 tablet (25 mg) 30 tablet 0 0 02/27/2021 09/05/2021 MG tabletIndications: by mouth every 4 hours JANETH (generalized as needed for anxiety anxiety disorder) documented as of this encounter ED Notes Heladio Alan RN - 08/23/2021 7:56 PM CST Sore throat, runny nose, chest pain and nausea since yesterday. Pt had negative home COVID test yesterday. 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 AINER WASHER Navid Esteban MD - 08/23/2021 7:48 PM CST History Chief Complaint: Pharyngitis HPI Mahi Faye is a 21 year old female who presents with presents with cough, sore throat sinus congestion chest pressure when coughing. Reports she began feeling ill yesterday. Has had nausea but no vomiting. No high fevers. Did take a rapid home Covid test which was negative. Patient is immunized for COVID- 19. Did get a flu shot as well. Review of Systems All other systems reviewed and are negative. Allergies: No know allergies on file. Medications: Condoms - Female (FC FEMALE CONDOM) MISC diclofenac (VOLTAREN) 1 % topical gel divalproex sodium extended-release (DEPAKOTE ER) 250 MG 24 hr tablet hydrOXYzine (ATARAX) 25 MG tablet Melatonin 10 MG TABS tablet QUEtiapine (SEROQUEL) 400 MG tablet?? QUEtiapine (SEROQUEL) 300 MG tablet QUEtiapine (SEROQUEL) 50 MG tablet cholecalciferol (VITAMIN D3) 1000 UNITS tablet?? metFORMIN (GLUCOPHAGE) 500 MG tablet?? 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 KNEE SURGERY Left ~2018 Dr. Mahendra Worthington, [facility] Family History: Hypertension (mother) Genetic Disorder (father) Social History: In a relationship Physical Exam Patient Vitals for the past 24 hrs: BP Temp Temp src Pulse Resp SpO2 08/23/211957 (!) 159/81 -- -- -- -- -- 08/23/211955 -- 98.8 ??F (37.1 ??C) Temporal 102 16 99 % Physical Exam Gen: well appearing, in no acute distress, appears with elevated BMI Oral : Mucous membranes moist, uvula midline Nose: No rhinorhea, edematous nasal mucosa Ears: External near normal, without drainage Eyes: periorbital tissues and sclera normal Neck: supple, no abnormal swelling Lungs: CTAB, no resp distress, speaks full sentences CV: Regular rate, regular rhythm Ext: no lower extremity edema Skin: warm, dry, well perfused, no rashes no bruising Neuro: alert, no gross motor or sensory deficits, Psych: pleasant mood, normal affect Emergency Department Course Procedures: Reviewed: I reviewed nursing notes, vitals, past history and care everywhere Assessments: 1958 I obtained history and examined the patient as noted above. Interventions: 2030 ondansetron (ZOFRAN-ODT) ODT tab 4 mg, PO 2030 ibuprofen (ADVIL/MOTRIN) tablet 600 mg, PO Disposition: The patient was discharged to home. Impression & Plan Medical Decision Making: Emergency Department Course: Patient presents with symptoms consistent with viral etiology. Tested negative for Covid at home, will send influenza and Covid test here. She looks well has some nausea will do some nausea medication at home some Motrin. She has symptoms consistent with viral etiology. Looks well no need for any further invasive testing. Will recommend return with any new symptoms or worsening symptoms comfortable with management plan. Covid-19 Mahi Faye was evaluated during a global COVID-19 pandemic, which necessitated considerationthat the patient might be at risk for infection with the SARS-CoV-2 virus that causes COVID-19. Applicable protocols for evaluation were followed during the patient's care. COVID-19 was considered as part of the patient's evaluation. The plan for testing is: a test was obtained during this visit. Diagnosis: ICD-10-CM 1. Viral URI J06.9 Discharge Medications: Discharge Medication List as of 08/23/2021 8:38 PM START taking these medications Details ondansetron (ZOFRAN ODT) 4 MG ODT tab Take 1 tablet (4 mg) by mouth every 8 hours as needed for nausea, Disp-10 tablet, R-0, Local Print Scribe Disclosure: Smiley Claralena Drew, am serving as a scribe at 7:59 PM on 08/23/2021 to document services personally performed by Navid Esteban MD based on my observations and the provider's statements to me. Navid Esteban MD 08/24/21 0054 AINER WASHER documented in this encounter Plan of Treatment Not on filedocumented as of this encounter Procedures Procedure Name Priority Date/Time Associated Diagnosis Comme nts INFLUENZA A/B & STAT 08/23/2021 8:32 PM Result s for this SARS-COV2 PCR CONTAINER WASHER procedure are in MULTIPLEX the results section. documented in this encounter Results Symptomatic; Yes; 08/22/2021 Influenza A/B & SARS-CoV2 (COVID-19) Virus PCR Multiplex Nasopharyngeal (08/23/2021 8:32 PM CONTAINER WASHER) Analysis Performed At Patho logist Time Signature Influenza A Negative Negative 08/23/2021 [facility] PCR 9:17 PM CONTAINER WASHER Influenza B Negative Negative 08/23/2021 [facility] PCR 9:17 PM CONTAINER WASHER SARS CoV2 PCR Negative Negative 08/23/2021 LABORATORY 9:17 PM CONTAINER WASHER Comment: NEGATIVE: SARS-CoV-2 (COVID-19) RNA not detected, presumed negative. Specimen Anatomical Location / Collection Method Collection Marin e Received Time (Source) Laterality / Volume Swab NASOPHARYNGEAL Non-blood 08/23/2021 8:32 08/23/2021 8:38 STRUCTURE / Unknown Collection / PM CONTAINER WASHER PM CONTAINER WASHER Unknown Narrative [facility] - 08/23/2021 9:17 PM CONTAINER WASHER Testing was performed using the maynor SARS-CoV-2 & Influenza A/B Assay on the maynor Shantel System. This test should be ordered for the detection of SARS-CoV-2 and influenza viruses in individuals who meet clinical and/or epidemiological cri teria. Test performance is unknown in asymptomatic patients. This test is for in vitro diagnostic use under the FDA EUA for laboratories certified under CLIA to p erform moderate and/or high complexity t esting. This test has not been FDA cleared or approved. A negative result does not rule out the presence of PCR inhibitors in the specimen or target RNA in concen tration below the limit of detection for the assay. If only one viral target is positive but coinfection with multiple targets is suspected, the sample should be re-tested with another FDA cleared, appr victor manuel or authorized test, if coinfection would change clinical management. [facility] are certified under the Clinical Laboratory Improvement Amendments of 1988 (CLIA-88) as qualified to perform moderate and/or hig h complexity laboratory testing. Navid Esteban MD LAB - MICRO GENERAL ORDERABL ES Performing Organization Address City/State/Z[place] [address] Care Lab [address] [facility] Lab (1st floor, no room number) documented in this encounter Visit Diagnoses Diagnosis Viral URI Acute upper respiratory infections of un specified site documented in this encounter Administered Medications Inactive Administered Medications - up to 3 most recent administrations Medication Order MAR Action Action Date Dose Rate Site ibuprofen (ADVIL/MOTRIN) tablet Given 08/23/2021 8:31 PM CONTAINER WASHER 600 mg 600 mg 600 mg, Oral, ONCE, On 08/23/21 at 2030, For 1 dose, Give with food. ondansetron (ZOFRAN-ODT) ODT tab 4 mg Given 08/23/2021 8:31 PM CONTAINER WASHER 4 mg 4 mg, Oral, ONCE, On 08/23/21 at 2030, For 1 dose, With dry hands, peel back foil backing and gently remove tablet. Do not push oral disintegrating tablet through foil backing. Administer immediately on tongue and oral disintegrating tablet dissolves in seconds, then swallow with saliva. Liquid not required. documented in this encounter Active and Recently Administered Medications Times are shown in CONTAINER WASHER. Scheduled Medication Order 08/21/2021 08/22/2021 08/23/2021 ibuprofen (ADVIL/MOTRIN) tablet 600 mg (COMPLETED) 2030 (Given - Provider: Khalida Harp RN) 600 mg, Oral, ONCE, On 08/23/21 at 2030, For 1 dose, Give with food. ondansetron (ZOFRAN-ODT) ODT tab 4 mg (COMPLETED) 2030 (Given - Provider: Khalida Harp RN) 4 mg, Oral, ONCE, On 08/23/21 at 2030, For 1 dose, With dry hands, peel back foil backing and gently remove tablet. Do not push oral disintegrating tablet through foil backing. Administer immediately on tongue and oral disintegrating tablet dissolves in seconds, then swallow with saliva. Liquid not required. documented in this encounter Additional Health Concerns Infection Onset Date Last Indicated Resolved Time Rule Out COVID-19 08/23/2021 08/23/2021 08/23/2021 9:1 7 PM CONTAINER WASHER Assessment Noted Time PHQ-9 Depression Total Score: 13 06/26/2020 10:[address] documented as of this encounter Care Teams Sand Buffer Relationship Specialty Start Date End Date No Ref-Primary, PCP - General 08/23/21 Physician Tc Jama MD Pediatric Surgery 02/14/[address] [place] [address] [id number] Tc Jama, Assigned Pediatric 05/10/20 MD Specialist Provider [address] [place], [place] [phone] Rosario Noe, Assigned OBGYN Provider 07/21/20 01/16/22 ELECTRICAL TIMING DEVICE CALIBRATOR CNM [address] [place], [place] [id number] Eda Duarte Assigned Surgical Provider 10/02/20 MD Alex [address] [facility] [address] [place] [address] Mike Sherwood Assigned Sleep Provider 01/31/21 MD Navid [address] [place] [address] Navid Paige MD Assigned Musculoskeletal 03/16/21 [address] [facility] [place] [address] Norma Ruggiero, Assigned PCP 07/27/21 09/06/21 ELECTRICAL TIMING DEVICE CALIBRATOR GREENHOUSE OR NURSERY TRANSPLANTER [address] [place], [place] [phone] documented as of this encounter
--- OUTSIDE RECORDS SUMMARY | 2022-04-23 23:39 | XMS_ITS | Encounter Summary ---
:2002 Author Organization [place] Address [address] [place] [address] Care Team Providers Name Role Phone Queta Fritz MD Unavailable [phone] Tc Jama MD Unavailable Tc Jama MD Unavailable Khalida Beyer MD Primary Care Provider Rosario Noe APRN CN Unavailable [phone] Eda Duarte MD Unavailable Mike Sherwood MD Unavailable [phone] Reason for Visit Reason Comments Knee Pain Encounter Details Date Type Department Care Team Description 03/09/2021 Emergency [facility] Usha Marina R ight knee pain, [facility] Emergency Dep t unspecified chronicity [address] [facility] [place] [address] 54[address] [facility] [phone] [place], [place] [address] (Wo rk) Social History [...] do you attend orthodoxy or Never 2018 mandaen services? Do you belong to any clubs [...] place to sleep or slept in a intermediate (including now)? Education Answer Date Recorded What is the highest level of school you have completed or 10 th grade 12/07/2018 the highest degree you have received? 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 documented as of this encounter Last Filed Vital Signs Vital Sign Reading Time Taken Comments Blood Pressure 134/95 03/09/2021 6:22 PM CDT Pulse 96 03/09/2021 6:22 PM CDT Temperature 36.9 ??C (98.5 ??F) 03/09/2021 6:22 PM CDT Respiratory Rate 18 03/09/2021 6:22 PM CDT Oxygen Saturation 97% 03/09/2021 6:22 PM CDT Inhaled Oxygen Concentration - - Weight 109.8 kg (242 lb) 03/09/2021 6:22 PM CDT Height - - Body Mass Index 40.27 01/17/2021 1:34 PM CDT Body Mass Index Percentile 98.63 % 03/09/2021 6:22 PM CD T Growth Chart: CDC (Girls, 2-20 Years) documented in this encounter Discharge Instructions Discharge InstructionsUsha Marina MD - 03/09/2021 8:06 PM CDT Use the knee immobilizer at all times. Use ice on the knee for about 15 minutes at least 3 or 4 times a day Your mother will give you ibuprofen as needed for pain Keep your appointment with your orthopedic doctor. This is really all we can do for you here in the emergency department. There is no need to return tothe emergency department for your knee problem . documented in this encounter Medications at Time of Discharge Medication Sig Dispensed Refills Start Date End Date Melatonin 10 MG TABS Take 10 mg by mouth 0 tablet nightly as needed for sleep QUEtiapine (SEROQUEL) Take 300 mg by mouth 0 300 MG tablet At Bedtime QUEtiapine (SEROQUEL) Take 50 mg by mouth 0 50 MG tablet every 4 hours as needed Condoms - Female (FC Use with every [...] documented as of this encounter ED Notes Khadijah Noguera RN - 03/09/2021 6:19 PM CDT Pt arrives via EMS from home for R knee pain. Did attend a soccer game yesterday and feels she overdid it with walking. Hx of issues with this knee. Does have an ortho appt scheduled for . Ambulatory from stretcher to bed w/ steady gait. Has tried ibuprofen and Tylenol. Hx of developmental delay. A&O x 4. ABCs and CMS intact. Fredrick Ribeiro RN - 03/09/2021 6:18 PM CDT Bed: ED22 Expected date: 03/09/21 Expected time: 5:59 PM Means of arrival: Ambulance Comments: [id number] Usha Marina MD - 03/09/2021 6:17 PM CDT History Chief Complaint: Knee Pain The history is provided by the patient. Mahi Faye is a 20 year old female with history of right knee arthroscopy who presents via EMS for evaluation of right knee pain. Mahi has a history of multiple right knee dislocations for which she had a knee arthroscopy four years ago. She has had right knee pain for the past few weeks. She was seen in the ED on 02/22 and received a knee immobilizer. She was seen again three days ago and it was determined the knee immobilizer was doing more harm than good, so she was given an SANTO wrap andhas been wearing this since. Her pain has increased since and she feels her knee is trying to dislocate. Her pain is 8/10 and worsened when bending her leg. She has an appointment with orthopedic surgery in four days but present due to uncontrolled pain. Review of Systems Musculoskeletal: Positive for arthralgias (right knee). All other systems reviewed and are negative. 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 Adjustment disorder Depression Noninfectious ileitis Pilonidal disease Mild anemia Anxiety Learning disability Past Surgical History: Knee arthroscopy Colonoscopy Cystourethroscopy Pilonidal cystectomy EGD combined Incision and drainage sacral wound Incision and drainage tonsil Family History: Mother: hypertension Father: ALS Social History: Presents unaccompanied PCP: Khalida Beyer Physical Exam Patient Vitals for the past 24 hrs: BP Temp Temp src Pulse Resp SpO2 Weight 03/09/21 1822 (!) 134/95 98.5 ??F (36.9 ??C) Oral 96 18 97 % 109.8 kg (242 lb) Physical Exam Cardiovascular: Pulses: Normal pulses. Musculoskeletal: Comments: Well-healed scar on medial aspect of the right knee. No definite apprehension. No definite abnormal mobility of the patella. No effusion. Patient will flex up to 90 degrees. She declines to flex further. Unable to test ligament stability due to discomfort. Skin: Findings: No abrasion, ecchymosis or laceration. Neurological: Mental Status: She is alert. Sensory: No sensory deficit. Psychiatric: Behavior: Behavior is cooperative. Emergency Department Course Emergency Department Course: Reviewed: I reviewed nursing notes, vitals, past medical history and care everywhere Assessments: 183 I obtained history and examined the patient as noted above. Patient was fitted with a knee immobilizer and was able to ambulate with this without falling. When I rechecked with the patient she was now crying, shouting, screaming complaining of pain. 1937 I spoke with the patients mother over the phone regarding her history and presentation. 1749 I rechecked the patient. Interventions: 2015 Ibuprofen, 800 mg, PO 2016 Hydroxyzine, 50 mg, PO Disposition: The patient was discharged to home. Impression & Plan Medical Decision Making: Mahi Faye is a 20 year old female who returns to the emergency department with ongoing right knee pain. She describes popping and trying to go out that sounded suggestive of patellar dislocation. This is what she had surgery for previously. I told her I felt that a full-length leg knee immobil izer would be appropriate to prevent problems. This was placed within the patient became very upset,crying and complaining of pain. I spoke with the patient's mother. Mother indicated that the previous discharge instructions had given a number of conditions for which the patient should return. After reading this Mahi became more and more anxious. Mother recommended that we not asked Mahi to return. She does have follow-up scheduled with orthopedics. When I returned to talk with the patient she was now calm. She is discharged with mother. Diagnosis: ICD-10-CM 1. Right knee pain, unspecified chronicity M25.561 Scribe Disclosure: I, Yudy Delucabryce, am serving as a scribe at 7:22 PM on 03/09/2021 to document services personally performed by Usha Marina MD based on my observations and the provider's statements to me. Usha Marina MD 03/09/21 4999 documented in this encounter Plan of Treatment Not on filedocumented as of this encounter Visit Diagnoses Diagnosis Right knee pain, unspecified chronicity documented in this encounter Administered Medications Inactive Administered Medications - up to 3 most recent administrations Medication Order MAR Action Action Date Dose Rate Site hydrOXYzine (ATARAX) tablet 50 mg Given 03/09/2021 8:16 PM CDT 50 mg 50 mg, Oral, ONCE, On 03/09/21 at 1935, For 1 dose ibuprofen (ADVIL/MOTRIN) tablet 800 mg Given 03/09/2021 8:16 PM CDT 800 mg 800 mg, Oral, ONCE, On 03/09/21 at 1935, For 1 dose, Give with food. documented in this encounter Active and Recently Administered Medications Times are shown in CDT. Scheduled Medication Order 03/07/2021 03/08/2021 03/09/2021 hydrOXYzine (ATARAX) tablet 50 mg (COMPLETED) 2015 (Given - Provider: Khadijah Noguera RN) 50 mg, Oral, ONCE, On 03/09/21 at 1935, For 1 dose ibuprofen (ADVIL/MOTRIN) tablet 800 mg (COMPLETED) 2015 (Given - Provider: Khadijah Noguera RN) 800 mg, Oral, ONCE, On 03/09/21 at 1935, For 1 dose, Give wit h food. documented in this encounter Additional Health Concerns Assessment Noted Time PHQ-9 Depression Total Score: 13 06/26/2020 10:[address] documented as of this encounter Care Teams Frame Gate Mortiser Operator Relationship Specialty Start Date End Date Khalida Beyer MD PCP - General Psychiatry 05/28/20 08/22/21 Queta Fritz Assigned PCP 03/04/14 04/12/21 MD Liza [facility] JUDITH [address] [address] Tc Jama MD MD Pediatric Surgery 02/14/[address] [facility] [address] [id number] Tc Jama MD Assigned Pediatric 05/10/20 09/06/21 [address] Specialist Provider [address] [place] [address] Rosario Noe, Assigned OBGYN Provider 07/21/20 01/16/22 MEDICAL STAFF DIRECTOR CNM [address] [place] [address] Eda Duarte, Assigned Surgical 10/02/20 MD Provider [address] [facility] [address] [place] [address] Mike Sherwood Assigned Sleep Provider 01/31/21 MD Navid [address] [place] [address] documented as of this encounter
--- OUTSIDE RECORDS SUMMARY | 2022-04-23 23:39 | XMS_ITS | Encounter Summary ---
:2000 Author Organization [facility] Address [address] [place] [address] Care Team Providers Name Role Phone Queta Fritz MD Unavailable Tc Jama MD Unavailable Tc Jama MD Unavailable Khalida Beyer MD Primary Care Provider Rosario Noe APRN CN Unavailable [phone] Eda Duarte MD Unavailable Mike Sherwood MD Unavailable [phone] Reason for Visit Reason Comments Suicidal Encounter Details Date Type Department Care Team Description 02/22/2021 - Emergency [facility] Jarrett Noriega MD Suicidal ideation 02/23/2021 [facility] Emergency EMERGENCY PHYSICIANS Dept PA [address] [facility] [address] [facility] [address] [place] [address] (Wo rk) Social History Tobacco Use Types [...] or relatives? How often do you attend caodaism or Never 2018 jehovah's witness services? Do you belong to any clubs or No 12/07/2018 organizations such as caodaism groups, unions, fraternal or athletic groups, or [...] place to sleep or slept in a nursing home (including now)? Education Answer Date Recorded What is the highest level of school you have completed or 10 th grade 12/07/2018 the highest degree you have received? Sex Assigned at Date Recorded Female 09/04/2021 9:00 PM TU[employer]ERE [employer]TER COVID-19 Exposure Response Date Recorded In the last month, have you been in contact with No / Unsure 02/22/2021 9:33 PM CDT someone who was confirmed or suspected to have Coronavirus / COVID-19? documented as of this encounter Last Filed Vital Signs Vital Sign Reading Time Taken Comments Blood Pressure 125/79 02/23/2021 12:00 AM CDT Pulse 84 02/23/2021 12:00 AM CDT Temperature 37.3 ??C (99.1 ??F) 02/22/2021 9:33 PM CDT Respiratory Rate 18 02/23/2021 12:00 AM CDT Oxygen Saturation 99% 02/23/2021 12:00 AM CDT Inhaled Oxygen Concentration - - Weight - - Height - - Body Mass Index - - documented in this encounter Medications at Time of Discharge Medication Sig Dispensed Refills Start Date End Date Melatonin 10 MG TABS Take 10 mg by mouth 0 tablet nightly as needed for sleep QUEtiapine (SEROQUEL) Take 300 mg by mouth 0 300 MG tablet At Bedtime Condoms - Female (FC Use with every 5 each 06/26/2020 09/05/2021 FEMALE CONDOM) intercourse not to [...] documented as of this encounter ED Notes Fang Keith RN - 02/23/2021 2:56 AM CDT EMS here for transfer. Uneventful Fang Keith RN - 02/23/2021 2:28 AM CDT Mother Eleanor notified of placement at [facility] Mother stated I don't want her to go there, we checked that place out before in [place]. Mother informed this facility was in [facility], [facility] had found placement at this facility and discussed the Mother's prior approval for patient/daughter to be placed in an adult mental health facility. Explained the difficulty of finding placement due to increased MH patients in the system, Mother approved of transfer. Fang Keith RN - 02/23/2021 1:07 AM CDT Spoke with Mom to discuss placement into a General Adult Unit per [facility] intake. Mother approved admission to adult unit. Evelia from intake called at [phone] to notify that Guardian is agreeable to placement. Fang Keith RN - 02/23/2021 12:05 AM CDT DEC complete, Knee Immobilizer placed Right leg. Karoline Hernandes RN - 02/22/2021 10:55 PM CDT Bedside sitter present. Karoline Hernandes RN - 02/22/2021 9:45 PM CDT RN contacted pt's mom (legal guardian), Eleanor and received verbal consent to treat. Mom stated this is not my first [place], we've been through this a million times before. Karoline Hernandes RN - 02/22/2021 9:33 PM CDT Pt presents from custodial. EMS was called due to pt c/o right knee pain. Mom and guardian were contacted and refused pt being seen, as she was recently evaluated for this at urgent care. Pt became upset and per medics threw a tantrum, throwing plates and yelling out suicidal comments.EMS placed pt on hold and called mom and guardian who approved pt being transported for SI. Mom Eleanor [phone] Guardian Kimberly [phone] Pt admits to SI, says she would use knives or guns to hurt herself with since her dad's passing from [place] 2 months ago. Pt also stated I've always wanted to go to a mental health unit, I have a friend that went there and got help. ABCs intact, A&Ox4. Zee Banks RN - 02/22/2021 9:17 PM CDT Bed: ED04 Expected date: 02/22/21 Expected time: 9:01 PM Means of arrival: Ambulance Comments: [facility] 1- 20 yo suicidal Jarrett Noriega MD - 02/22/2021 9:17 PM CDT History Chief Complaint: Suicidal The history is provided by the patient. 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 History is limited due to developmental delay. The patient reports feeling very upset today, so upset that she started throwing things, and thought about grabbing knives. Mahi endorses suicidal ideation. She expresses sorrow and frustration over her fathers due to COVID and associated complications within this past year. She currently lives in a custodial. As shepresents to the ED, she also complains of right knee pain, and feeling a popping sensation earlier to day. Her ongoing knee problems have also been a source of recent frustrations. XR knee right 3 views - 02/14/2021 1. Negative right knee. Normal joint alignment and spacing. No fracture or joint effusion. Review of Systems Musculoskeletal: + knee pain Psychiatric/Behavioral: Positive for agitation and suicidal ideas. All other systems reviewed and are negative. Allergies: The patient has no known allergies. 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 Physical Exam Patient Vitals for the past 24 hrs: BP Temp Temp src Pulse Resp SpO2 02/23/21 0000 125/79 -- -- 84 18 99 % 02/22/21 2133 130/89 99.1 ??F (37.3 ??C) Oral 82 18 98 % Physical Exam Constitutional: Oriented to person, place, and time. Mentally delayed at baseline. HENT: Head: Normocephalic. Mouth/Throat: Oropharynx is clear and moist. Eyes: EOM are normal. Pupils are equal, round, and reactive to light. Neck: Neck supple. Cardiovascular: Normal rate, regular rhythm and normal heart sounds. Exam reveals no gallop and no friction rub. No murmur heard. Pulmonary/Chest: Effort normal and breath sounds normal. No respiratory distress. No wheezes. No rales. No reproducible chest wall pain. Abdominal: Soft. No distension. No tenderness. No rebound and no guarding. Musculoskeletal: Normal range of motion. She has 2+ distal pulses. Mild general tenderness to right knee with full range of motion. Weight bearing. No swelling. No warmth. No posterior leg tenderness or edema. Neurological: Alert and oriented to person, place, and time. Moves all 4 extremities spontaneously Mentally delayed as baseline. Skin: No rash noted. No pallor. Psych: Endorses suicidal ideation. Emergency Department Course Laboratory: HCG qualitative urine: Negative Drug abuse screen 1 urine: ALL negative Asymptomatic COVID19 Virus PCR by nasopharyngeal swab pending: Negative Emergency Department Course: Reviewed: I reviewed nursing notes, vitals, past medical history and care everywhere Assessments: 2204 I obtained history and examined the patient as noted above. Consults: 2300 I spoke with JORDANA regarding the patient. Interventions: 2252 Advil 600 mg PO 2252 Ativan 1 mg PO 0120 Melatonin 10 mg PO 0121 Seroquel 300 mg PO Disposition: The patient was transferred to inpatient psychiatric care via EMS. Impression & Plan Medical Decision Making: Mahi Faye is an 20 year old female that came in with suicidal ideation. After DEC evaluation,she could not contract for safety and after further discussion with her custodial and mother, we think it is best that she receives inpatient psychiatric care. [facility] care. Covid-19 Mahi Faye was evaluated during a global COVID-19 pandemic, which necessitated considerationthat the patient might be at risk for infection with the SARS-CoV-2 virus that causes COVID-19. Applicable protocols for evaluation were followed during the patient's care. COVID-19 was considered as part of the patient's evaluation. The plan for testing is: a test was obtained during this visit. Diagnosis: ICD-10-CM 1. Suicidal ideation R45.851 Discharge Medications: None Scribe Disclosure: Gee Reis, am serving as a scribe at 10:25 PM on 02/22/2021 to document services personally performed by Jarrett Noriega MD based on my observations and the provider's statements to me. Jarrett Noriega MD 02/23/21 1546 documented in this encounter Plan of Treatment Not on filedocumented as of this encounter Procedures Procedure Name Priority Date/Time Associated Comments Diagnosis URINE DRUGS OF ABUSE STAT 02/23/2021 12:00 Res ults for this SCREEN AM CDT procedure are i n the results section. HCG QUALITATIVE URINE STAT 02/23/2021 12:00 Re sults for this AM CDT procedure are i n the results section. DRUG ABUSE SCREEN 1 STAT 02/23/2021 12:00 Resu lts for this URINE (ED) AM CDT procedure are i n the results section. SARS-COV2 (COVID-19) STAT 02/22/2021 11:59 Res ults for this VIRUS RT-PCR PM CDT procedure are i n the results section. COVID-19 VIRUS STAT 02/22/2021 11:59 Results f or this (CORONAVIRUS) BY PCR PM CDT procedu re are in the results section. documented in this encounter Results Drug abuse screen 1 urine (ED) (02/23/2021 12:00 AM CDT) [facility] Method Time Signature Amphetamines Screen Screen 02/23/2021 LABORATORY Urine Negative Negative 12:31 AM CDT Comment: Cutoff for a negative amphetami ne is 500 ng/mL or less. Barbiturates Urine Screen Negative Screen Negative 021 12:31 [facility] LABORATORY AM CDT Comment: Cutoff for a negative barbitura te is 200 ng/mL or less. Benzodiazepines Urine Screen Negative Screen 02/23/2021 1 2:31 [facility] LABORATORY Negative AM CDT Comment: Cutoff for a negative benzodiaz epine is 200 ng/mL or less. Cannabinoids Urine Screen Negative Screen Negative 021 12:31 [facility] LABORATORY AM CDT Comment: Cutoff for a negative cannabino id is 50 ng/mL or less. Cocaine Urine Screen Negative Screen Negative 02/23/2021 1 2:31 AM RH LABORATORY CDT Comment: Cutoff for a negative cocaine i s 300 ng/mL or less. Opiates Urine Screen Negative Screen Negative 02/23/2021 1 2:31 AM RH LABORATORY CDT Comment: Cutoff for a negative opiate is 300 ng/mL or less. Specimen Anatomical Collection Method Collection Time Receive d Time (Source) Location / / Volume Laterality Urine MID-STREAM URINE Non-blood 02/23/2021 12:00 021 SPECIMEN / Unknown Collection / AM CDT 12:08 AM CDT Unknown Jarrett Noriega MD LAB - URINE ORDERABLES Performing Organization Address [facility]/ZIP [facility] [place] [address] Care Lab [address] Lab (1st floor, no room number) HCG qualitative urine (02/23/2021 12:00 AM CDT) Patholo gist Method Time Signature hCG Urine Negative Negative PADMINI 02/23/2021 LABORATORY Qualitative 12:15 AM CDT Comment: This test is for screening purp oses. Results should be interpreted along with the clinical picture. Confirmation testing is available if warranted by ordering [id number], HCG Quantitative . Specimen Anatomical Collection Method Collection Time Receive d Time (Source) Location / / Volume Laterality Urine MID-STREAM URINE Non-blood 02/23/2021 12:00 021 SPECIMEN / Unknown Collection / AM CDT 12:08 AM CDT Unknown Jarrett Noriega MD LAB - URINE ORDERABLES Performing Organization Address [facility] [place] [address] Care Lab [address] Lab (1st floor, no room number) SARS-COV2 (COVID-19) Virus RT-PCR (02/22/2021 11:59 PM CDT) Analysis Performed At Patho logist Time Signature SARS CoV2 PCR Negative Negative 02/23/2021 LABORATORY 1:23 AM CDT Comment: NEGATIVE: SARS-CoV-2 (COVID-19) RNA not detected, presumed negative. Specimen Anatomical Location / Collection Method Collection Marin e Received Time (Source) Laterality / Volume Swab NASOPHARYNGEAL Non-blood 02/22/2021 11:59 STRUCTURE / Unknown Collection / PM CDT 12:06 AM CDT Unknown Narrative LABORATORY - 02/23/2021 1:23 AM CDT Testing was performed using the maynor?? SARS-CoV-2 & Influenza A/B Assay on the maynor?? Shantel?? System. ??This test shoul d be ordered for the detection of SARS-COV-2 in individuals who meet SARS-CoV-2 clini leonila and/or epidemiological criteria. Test performance is unknown in asymptomatic p atients. ??This test is for in vitro diagnostic use under the FDA EUA for lab oratories certified under CLIA to perform moderate and/or high complexity testing. This test has not been FDA cleared or approved. ??A negative test does not rul e out the presence of PCR inhibitors in the specimen or target RNA in concentration below the limit of detection for the assay. The possibility of a false negative shou ld be considered if the patient's recent exposure or clinical presentation sugges ts COVID-19. ??[facility] are certified under the Clinical Laborat ory Improvement Amendments of 1988 (CLIA-88) as qualified to perform moderate and/or high complexity laboratory testing. Jarrett Noriega MD LAB - MICRO GENERAL ORDERABL ES Performing Organization Address City/State/[place] [address] Care Lab [address] [facility] Lab (1st floor, no room number) documented in this encounter Visit Diagnoses Diagnosis Suicidal ideation documented in this encounter Administered Medications Inactive Administered Medications - up to 3 most recent administrations Medication Order MAR Action Action Date Dose Rate Site ibuprofen (ADVIL/MOTRIN) tablet Given 02/22/2021 10:52 PM CDT 60 0 mg 600 mg 600 mg, Oral, ONCE, On 02/22/21 at 2225, For 1 dose, Give with food. LORazepam (ATIVAN) tablet 1 mg Given 02/22/2021 10:52 PM CDT 1 mg 1 mg, Oral, ONCE, On 02/22/21 at 2225, For 1 dose melatonin tablet 10 mg Given 02/23/2021 1:20 AM CDT 10 mg 10 mg, Oral, AT BEDTIME PRN, sleep, Starting on 02/23/21 at 0100 OLANZapine zydis (zyPREXA) ODT tab 10 mg 10 mg, Oral, 2 TIMES DAILY PRN, agitation, associated with psychosis or dylan., Starting on 02/23/21 at 0100, Combined IM and PO doses may significantly increase the risk of orthostatic hypotension at 30 mg per day o r higher. With dry hands, peel back foil backing and gently remove tablet. Do not push oral disintegrating tablet through foil backing. Administer immediately on tongue and oral disintegrating tablet dissolves in secon ds, then swallow with saliva. Liquid not required. QUEtiapine (SEROquel) tablet 300 mg Given 02/23/2021 1:21 AM CDT 300 mg 300 mg, Oral, AT BEDTIME, First dose on 02/23/21 at 0105 documented in this encounter Active and Recently Administered Medications Times are shown in CDT. Scheduled Medication Order 02/21/2021 02/22/2021 02/23/2021 ibuprofen (ADVIL/MOTRIN) tablet 600 mg (COMPLETED) 2251 (Given - Provider: Karoline Hernandes RN) 600 mg, Oral, ONCE, On 02/22/21 at 2225, For 1 dose, Give with food. LORazepam (ATIVAN) tablet 1 mg (COMPLETED) 2251 (Given - Provider: Karoline Hernandes RN) 1 mg, Oral, ONCE, On 02/22/21 at 2225, For 1 dose QUEtiapine (SEROquel) tablet 300 mg 120 (Given - Provider: Fang Keith RN) 300 mg, Oral, AT BEDTIME, First dose on 02/23/21 at 0105 PRN Medication Order 02/21/2021 02/22/2021 02/23/2021 melatonin tablet 10 mg 0120 (Giv en - Provider: Fang Keith RN) 10 mg, Oral, AT BEDTIME PRN, sleep, Starting on 02/23/21 at 01 00 OLANZapine zydis (zyPREXA) ODT tab 10 mg 10 mg, Oral, 2 TIMES DAILY PRN, agitatio n, associated with psychosis or dylan., Starting on 02/23/21 at 0100, Combined IM and PO doses may significantly increase the risk of orthostatic hypotension at 30 mg per day or higher. With dry hands , peel back foil backing and gently remove tablet. Do not push oral disintegrating tablet through foil backing. Administer immediately on tongue and oral disinteg rating tablet dissolves in seconds, then swallow with saliva. Liquid not required. documented in this encounter Additional Health Concerns Assessment Noted Time PHQ-9 Depression Total Score: 13 06/26/2020 10:[address] documented as of this encounter Care Teams Air Conditioning Service Technician Relationship Specialty Start Date End Date Khalida Beyer MD PCP - General Psychiatry 05/28/20 08/22/21 Queta Fritz Assigned PCP 03/04/14 04/12/21 MD Liza [address] [facility] 100 [place] [address] Tc Jama MD MD Pediatric Surgery 02/14/[address] [address] Tc Jama MD Assigned Pediatric 05/10/20 09/06/21 [address] [place] JESSE BLUNT Specialist Provider [address] [place], [place] [address] Rosario Noe, Assigned OBGYN Provider 07/21/20 01/16/22 WIND FIELD MANAGER CNM [address] [place], [place] [id number] Eda Duarte, Assigned Surgical 10/02/20 MD Provider [address] [facility] [address] [place] [address] Mike Sherwood Assigned Sleep Provider 01/31/21 MD Navid [address] [place] [address] documented as of this encounter
--- OUTSIDE RECORDS SUMMARY | 2022-04-23 23:39 | XMS_ITS | Encounter Summary ---
:2000 Author Organization [facility] Address [address] [place] [address] Care Team Providers Name Role Phone Queta Fritz MD Unavailable [phone] Tc Jama MD Unavailable Tc Jama MD Unavailable Khalida Beyer MD Primary Care Provider Rosario Noe APRN CN Unavailable [phone] Eda Duarte MD Unavailable Mike Sherwood MD Unavailable [phone] Encounter Details Date Type Department Care Team Description 03/11/2021 Travel Social History Tobacco Use Types Packs/Day [...] or relatives? How often do you attend zoroastrianism or Never 2018 taoism services? Do you belong to any clubs or No 12/07/2018 organizations such as zoroastrianism groups, unions, fraternal or athletic groups, or [...] place to sleep or slept in a [facility] (including now)? Education Answer Date Recorded What is the highest level of school you have completed or 10 th grade 12/07/2018 the highest degree you have received? 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 COVID-19 Exposure Response Date Recorded In the [...] documented as of this encounter Care Teams Maintenance Machine Repairer Relationship Specialty Start Date End Date Khalida Beyer MD PCP - General Psychiatry 05/28/20 08/22/21 Queta Fritz Assigned PCP 03/04/14 04/12/21 MD Liza [address] [facility] [address] [place] [address] Tc Jama MD MD Pediatric Surgery 02/14/20 [facility] [address] [address] Tc Jama MD Assigned Pediatric 05/10/20 09/06/21 [address] BLUNT Specialist Provider 505 [place] [address] Rosario Noe, Assigned OBGYN Provider 07/21/20 01/16/22 RECORDS MANAGEMENT ANALYST CNM [address] [facility] 200 [place] [address] Eda Duarte, Assigned Surgical 10/02/20 MD Provider 420 [facility] 394 [place] [address] Mike Sherwood Assigned Sleep Provider 01/31/21 MD Navid [address] [place] [address] documented as of this encounter
--- OUTSIDE RECORDS SUMMARY | 2022-04-23 23:39 | XMS_ITS | Encounter Summary ---
:2000 Author Organization [facility] Address [address] [place] [address] Care Team Providers Name Role Phone Queta Fritz MD Unavailable [phone] Tc Jama MD Unavailable Tc Jama MD Unavailable Khalida Beyer MD Primary Care Provider Rosario Noe APRN CN Unavailable [phone] Eda Duarte MD Unavailable Mike Sherwood MD Unavailable [phone] Navid Paige MD Unavailable Reason for Visit Reason Comments Sleep Problem (Routine) - Closed Specialty Diagnoses / Procedures Referred By Contact Refer red To Contact Sleep Medicine Diagnoses [facility] Procedures [facility] DIAGNOST[facility] [address] [facility] [address] [place] [address] Phone: Referral ID Status Reason Start Date Expiration Date Visits Requ ested Visits Authorized [id number] Closed 03/17/2021 03/17/2022 1 1 Encounter Details Date Type Department Care Team Description 03/17/2021 Therapy Visit [facility] Sleep Urg ency-frequency syndrome; [facility] Snores; [address] [facility] OUTH Nocturia; [address] Chromosomal abnormality; [place] [address] Moderate major depression (H ); [phone] Hypersomnia Social History Tobacco Use Types Packs/Day Years [...] or relatives? How often do you attend holiness or Never 2018 christianity services? Do you belong to any clubs or No 12/07/2018 organizations such as holiness groups, unions, fraternal or athletic groups, or [...] place to sleep or slept in a custodial (including now)? Education Answer Date Recorded What is the highest level of school you have completed or 10 th grade 12/07/2018 the highest degree you have received? 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 documented as of this encounter Progress Notes Trista Sanders - 03/17/2021 8:00 PM CDT Diagnostic PSG completed per provider order. documented in this encounter Plan of Treatment Not on filedocumented as of this encounter Procedures Procedure Name Priority Date/Time Associated Diagnosis Comme nts CYLINDER MACHINE OPERATOR COMPREHENSIVE SLEEP Routine 03/17/2021 8:04 PM Urgency-candelaria quency CDT syndrome Snores Nocturia Chromosomal abnormality Moderate major depression (H) Hypersomnia documented in this encounter Results Comprehensive Sleep Study (03/17/2021 8:04 PM CDT) Analysis Performed At Patho logist Time Signature CYLINDER MACHINE OPERATOR Comprehensive [facility] Sleep Specimen (Source) Anatomical Collection Method Collection Time Re ceived Time Location / / Volume Laterality 03/17/2021 8:04 PM CDT Mike Sherwood MD PROCEDURES Performing Organization Address City/State/ZIP Code Phon e Number [facility] documented in this encounter Visit Diagnoses Diagnosis Urgency-frequency syndrome Hypertonicity of bladder [place] Other dyspnea and respiratory abnormalit y Nocturia 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 Moderate major depression (H) Major depressive disorder, single episod e, moderate Hypersomnia Hypersomnia, unspecified documented in this encounter Additional Health Concerns Assessment Noted Time PHQ-9 Depression Total Score: 13 06/26/2020 10:[address] documented as of this encounter Care Teams Environmental Inspector Relationship Specialty Start Date End Date Khalida Beyer MD PCP - General Psychiatry 05/28/20 08/22/21 Queta Fritz Assigned PCP 03/04/14 04/12/21 MD Liza [address] [facility] [address] [place] [address] Tc Jama MD Pediatric Surgery 02/14/[address] [place] [phone] Tc Jama, Assigned Pediatric 05/10/20 MD Specialist Provider [address] [place], [place] [id number] Rosario Noe, Assigned OBGYN Provider 07/21/20 01/16/22 MOTHER SUPERIOR CNM [address] [place], [place] [id number] Eda Duarte Assigned Surgical Provider 10/02/20 MD Alex [address] [facility] [address] [place] [address] Mike Sherwood Assigned Sleep Provider 01/31/21 MD Navid [address] [place] [address] Navid Paige MD Assigned Musculoskeletal 03/16/21 [address] [facility] [place] [address] documented as of this encounter
--- OUTSIDE RECORDS SUMMARY | 2022-04-23 23:39 | XMS_ITS | Encounter Summary ---
:2000 Author Organization [facility] Address [address] [place] [address] Care Team Providers Name Role Phone Queta Fritz MD Unavailable [phone] Tc Jama MD Unavailable Tc Jama MD Unavailable Khalida Beyer MD Primary Care Provider Rosario Noe APRN CN Unavailable [phone] Eda Duarte MD Unavailable Mike Sherwood MD Unavailable [phone] Reason for Referral Consultation (Routine) - Closed Specialty Diagnoses / Procedures Referred By Contact Refer red To Contact Orthopaedic Surgery Diagnoses Acute pain of right knee Haley Wei [facility] [address] [facility] [place] [address] [facility] [address] [place] [address] Phone: Fax: Referral ID Status Reason Start Date Expiration Date Visits Requ ested Visits Authorized [id number] Closed 02/14/2021 02/14/2022 1 1 Diagnostic Imaging XR (Routine) - Closed Specialty Diagnoses / Procedures Referred By Contact Refer red To Contact Diagnoses Acute pain of right knee Haley Wei PA-C Procedures XR Knee Right 3 Views [address] [place] [address] Referral ID Status Reason Start Date Expiration Date Visits Requ ested Visits Authorized [id number] Closed 02/14/2021 02/14/2022 1 1 Reason for Visit Reason Comments Urgent Care Musculoskeletal Problem Pressure on right knee, feel s like knee is going to pop out-patient had knee surger y on right knee a couple years ago Encounter Details Date Type Department Care Team Description 02/14/2021 Office Visit [facility] Haley Wei Acute pepe n of right Urgent Care Yomaira Watts PA-C knee (Primary Dx) [address] [place] [address] [phone] Social History Tobacco Use Types Packs/Day Years [...] or relatives? How often do you attend jewish or Never 2018 episcopalian services? Do you belong to any clubs or No 12/07/2018 organizations such as jewish groups, unions, fraternal or athletic groups, or [...] place to sleep or slept in a chcf (including now)? Education Answer Date Recorded What is the highest level of school you have completed or 10 th grade 12/07/2018 the highest degree you have received? 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 documented as of this encounter Last Filed Vital Signs Vital Sign Reading Time Taken Comments Blood Pressure 125/78 02/14/2021 5:41 PM CDT Pulse 86 02/14/2021 5:41 PM CDT Temperature 37.1 ??C (98.8 ??F) 02/14/2021 5:41 PM CDT Respiratory Rate 12 02/14/2021 5:41 PM CDT Oxygen Saturation 97% 02/14/2021 5:41 PM CDT Inhaled Oxygen Concentration - - Weight - - Height - - Body Mass Index - - documented in this encounter Patient Instructions Patient InstructionsHaley Wei PA-C - 02/14/2021 6:20 PM CDT Images from the original note were not included. Xray of the right knee today is normal. Please take Ibuprofen 800 mg 3 times daily as needed for pain. Rest. Follow up with Orthopedic for recheck if no improvement in symptoms after a few days. Patient Education RICE Rest an injury, elevate it, and use ice and compression as directed. RICE stands for rest, ice, compression, and elevation. These can limit pain and swelling after an injury. RICE may be recommended to help treat breaks (fractures), sprains, strains, and bruises or bumps.?? Home care Here are??the details of RICE: ?? Rest. Limit the use of the injured body part. This helps prevent further damage to the body part and gives it time to heal. In some cases, you may need a sling, brace, splint, or cast to help keep the body part still until it has healed. ?? Ice. Applying ice right after an injury helps relieve pain and swelling. To make an ice pack, putice cubes in a plastic bag that seals at the top. Wrap the bag in a clean, thin towel or cloth.??Then place it over the injured area. Do this for 10 to 15 minutes every??3 to 4??hours. Continue for thenext 1 to 3 days or until your symptoms improve. Never put ice directly on your skin.??Don't ice an area longer than 15 minutes at a time. ?? Compression. Putting pressure on an injury helps reduce swelling and provides support. Wrap the injured area firmly with an elastic bandage or??wrap. Make sure not to wrap the bandage too tightly oryou will cut off blood flow to the injured area. If your bandage loosens, rewrap it. ?? Elevation. Keeping an injury raised or elevated??above the level of your heart reduces swelling, pain, and throbbing. For instance, if you have a broken leg, it may help to rest your leg on several pillows when sitting or lying down. Try to keep the injured area elevated as often as possible. Follow-up care Follow up with your healthcare provider, or as advised. When to seek medical advice Call your healthcare provider right away??if any of these occur: ?? Fever of 100.4??F (38??C) or higher, or as directed by your healthcare provider ?? Chills ?? Increased pain or swelling in the injured body part ?? Injured body part becomes cold, blue, numb, or tingly ?? Signs of infection. These include warmth in the skin, redness, drainage, or bad smell coming fromthe injured body part. [employer] last reviewed this educational content on 12/17/2017 ?? 6901-1440 [employer]. All rights reserved. This information is not intended as a substitute for professional medical care. Always follow your healthcare professional's instructions. documented in this encounter Progress Notes Haley Wie PA-C - 02/14/2021 6:20 PM CDT Assessment & Plan Acute pain of right knee X-ray today is negative for acute findings. She is provided with a knee brace and crutches for ambulation. I have recommended ibuprofen 800 mg 3 times daily as needed for pain. Weightbearing as tolerated. Rest. Orthopedic referral if symptoms not improving as anticipated. Might need evaluation for meni scal/ligamentous injury. Follow-up if any worsening symptoms. Patient agrees with the plan. - XR Knee Right 3 Views - Orthopedic Traditional Chinese Herbalist Referral - Crutches Order for DME - ONLY FOR DME - Knee Supplies Order for DME - ONLY FOR DME Return in about 5 days (around 02/19/2021) for Recheck with orthopedic. Haley Wei PA-C [facility] Champagne is a 20 year old female who presents to clinic today for the following health issues: Chief Complaint Patient presents with ??? Urgent Care ??? Musculoskeletal Problem Pressure on right knee, feels like knee is going to pop out-patient had knee surgery on right knee a couple years ago HPI MS Injury/Pain Onset of symptoms was 1: 30 pm today, 5 hrs ago Location: right knee Context: She notes pain started suddenly today. She denies any trauma or injury. But reports she didhit The right knee against an object 2 weeks ago. The pain has been waxing and waning throughout theday today, reason which prompted this visit. She reports she feels like the knee is going to give out Course of symptoms is same. Severity moderate Current and Associated symptoms: Pain, Tenderness and Decreased range of motion Denies Bruising, Warmth and Redness Aggravating Factors: walking and weight-bearing Therapies to improve symptoms include: ice and ibuprofen This is not the first time this type of problem has occurred for this patient. History of right knee scope, lateral release and medial patellofemoral ligament reconstruction on 09/26/2018 Review of Systems Constitutional, HEENT, cardiovascular, pulmonary, gi and gu systems are negative, except as otherwise noted. Objective BP 125/78 Pulse 86 Temp 98.8 ??F (37.1 ??C) (Tympanic) Resp 12 SpO2 97% No Physical Exam GENERAL: healthy, alert and no distress MS: Right knee exam: No gross deformities, swelling or ecchymosis noted. Tenderness to palpation medial aspect of the knee. No tenderness over the patella. No joint laxity noted. Range of motion is limited due to pain. Xray right knee - Reviewed and interpreted by me. Negative for acute fractures or dislocation. No joint effusion. documented in this encounter Plan of Treatment Scheduled Referrals Name Type Priority Associated Diagnoses Order S chedule Orthopedic Traditional Chinese Herbalist Referral Routine Acute pain of right Expected: 02/14/2021 Referral knee (Approximate), Expires: 2021 documented as of this encounter Results XR Knee Right 3 Views (02/14/2021 6:24 PM CDT) Anatomical Region Laterality Modality Thigh, Knee, Leg Right Computed Radiography Specimen (Source) Anatomical Location Collection Method / Collectio n Time Received Time / Laterality Volume Impressions 02/14/2021 6:36 PM CDT Impression: 1. ??Negative right knee. Normal joint a lignment and spacing. No fracture or joint effusion. BG PALMER MD SYSTEM ID: ??[id number] Narrative 02/14/2021 6:36 PM CDT Examination: ??XR [...] joint effusion. BG PALMER MD SYSTEM ID: [id number] Haley Wei PA-C IMG DIAGNOSTIC IMAGING ORDER LINDSAY documented in this encounter Visit Diagnoses Diagnosis Acute pain of right knee - Primary Acute pain of right knee documented in this encounter Additional Health Concerns Assessment Noted Time PHQ-9 Depression Total Score: 13 06/26/2020 10:[address] documented as of this encounter Care Teams Clerk Carrier Relationship Specialty Start Date End Date Khalida Beyer MD PCP - General Psychiatry 05/28/20 08/22/21 Queta Fritz Assigned PCP 03/04/14 04/12/21 MD Liza [address] [place] [address] Tc Jama MD MD Pediatric Surgery 02/14/20 [facility] [address] Tc Jama MD Assigned Pediatric 05/10/20 09/06/21 [address] Specialist Provider [address] [place] [address] Rosario Noe, Assigned OBGYN Provider 07/21/20 01/16/22 SEMICONDUCTOR WAFERS MARKER CNM [address] [place] [address] Eda Duarte, Assigned Surgical 10/02/20 Provider [address] [facility] [address] [place] [address] Mike Sherwood Assigned Sleep Provider 01/31/21 MD Navid [address] [place] [address] documented as of this encounter
--- OUTSIDE RECORDS SUMMARY | 2022-04-23 23:39 | XMS_ITS | Encounter Summary ---
:2000 Author Organization [facility] Address [address] [place] [id number] Care Team Providers Name Role Phone Queta Fritz MD Unavailable [phone] Tc Jama MD Unavailable Tc Jama MD Unavailable Khalida Beyer MD Primary Care Provider Rosario Noe APRN [facility] Unavailable [phone] Eda Duarte MD Unavailable Reason for Visit Reason Comments Consult snoring, weight gain due to eating in middle of the night (Routine) - Closed Specialty Diagnoses / Procedures Referred By Contact Refer red To Contact Diagnoses Urgency-frequency syndrome Snores Nocturia Eda Duarte MD [address] [place] [address] [address] [place], [place] [address] Referral ID Status Reason Start Date Expiration Date Visits Requ ested Visits Authorized [id number] Closed 12/03/2020 12/03/2021 1 1 Encounter Details Date Type Department Care Team Description 01/20/[address] [facility] Eda Duarte MD [address] [place] [address] [address] [place] [address] Chromosomal abnormality (Primary Dx); Sleep Center Mike Sherwood MD [address] [place] [address] Urgency-frequency syndrome; [place]; [address] Nocturia; [place], [place] Moderate luann or depression (H); [id number] Hypersomnia [phone] Social History Tobacco Use Types Packs/Day Years [...] you attend roman catholic or Never 2018 spiritism services? Do you [...] minutes do you engage in exercise at is 30 min 09/05/2021 level? Stress Answer [...] place to sleep or slept in a residential (including now)? Education Answer Date Recorded What is the highest level of school you have completed or 10 th grade 12/07/2018 the highest degree you have received? 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 documented as of this encounter Last Filed Vital Signs Vital Sign Reading Time Taken Comments Blood Pressure - - Pulse - - Temperature - - Respiratory Rate - - Oxygen Saturation - - Inhaled Oxygen Concentration - - Weight 110.7 kg (244 lb) 01/17/2021 1:34 PM CDT Height 165.1 cm (5' 5) 01/17/2021 1:34 PM CDT Body Mass Index 40.6 01/17/2021 1:34 PM CDT Body Mass Index Percentile 98.70 % 01/17/2021 1:34 PM CD T Growth Chart: [facility] (Girls, 2-20 Years) documented in this encounter Patient Instructions Patient InstructionsCeline Rios, ARACELY - 01/20/2021 1:00 PM CDT Your BMI is Body mass index is 40.6 kg/m??. Weight management is a personal decision. If you are interested in exploring weight loss strategies,the following discussion covers the approaches that may be successful. Body mass index (BMI) is one way to tell whether you are at a healthy weight, overweight, or obese. It measures your weight in relation to your height. A BMI of 18.5 to 24.9 is in the healthy range. A person with a BMI of 25 to 29.9 is considered overweight, and someone with a BMI of 30 or greater is considered obese. More than two-thirds of [place] adults are considered overweight or obese. Being overweight or obese increases the risk for further weight gain. Excess weight may lead to heart disease and diabetes. Creating and following plans for healthy eating and physical activity may help you improve your health. Weight control is part of healthy lifestyle and includes exercise, emotional health, and healthy eating habits. Careful eating habits lifelong are the mainstay of weight control. Though there are significant health benefits from weight loss, long-term weight loss with diet alone may be very difficult to achieve- studies show long-term success with dietary management in less than 10% of people. Attaining a healthy weight may be especially difficult to achieve in those with severe obesity. In some cases, medications, devices and surgical management might be considered. What can you do? If you are overweight or obese and are interested in methods for weight loss, you should discuss this with your provider. ??? Consider reducing daily calorie intake by 500 calories. ??? Keep a food journal. ??? Avoiding skipping meals, consider cutting portions instead. Diet combined with exercise helps maintain muscle while optimizing fat loss. Strength training is particularly important for building and maintaining muscle mass. Exercise helps reduce stress, increaseenergy, and improves fitness. Increasing exercise without diet control, however, may not burn enoughcalories to loose weight. ??? Start walking three days a week 10-20 minutes at a time ??? Work towards walking thirty minutes five days a week ??? Eventually, increase the speed of your walking for 1-2 minutes at time In addition, we recommend that you review healthy lifestyles and methods for weight loss available through the National Institutes of Health patient information sites: http://win.niddk.nih.gov/publications/index.htm And look into health and wellness programs that may be available through your health insurance provider, employer, local community center, or [employer]. Weight management plan: Discussed healthy diet and exercise guidelines documented in this encounter Progress Notes Mike Sherwood MD - 01/20/2021 1:00 PM CDT Mahi Faye is a 20 year old female who is being evaluated via a billable telephone visit. What phone number would you like to be contacted at?@ - Work Phone Not on file. How would you like to obtain your AVS? [employer] Telephone Virtual Visit Details Type of service: Telephone Virtual Visit Start Time: 1pm End Time: 1:34 PM Virtual visit for concern for sleep disordered breathing. Assessment: -Increased pretest probability for sleep disordered breathing with a STOP-BANG score of approximately 4, along with comorbid nocturia and urgency frequency syndrome. -Chronic sleep onset and maintenance insomnia with features of minimal constraints on time, potential underlying sleep disordered breathing -Possible nocturnal eating syndrome versus other wakeful eating disorder -Excessive caffeine use. Plan: -Given her comorbid developmental delay, insomnia, we agreed that an in lab PSG would be optimal. She is in agreement, orders placed for in lab PSG without TCM nor blood gases given my overall concernsfor significant hypoventilation is lower. SUBJECTIVE: Mahi Faye is a 20 year old year old female. Pertinent PMHx of urgency-frequency syndrome, nocturia, developmental delay, borderline intellectualfunctioning, chromosomal abnormality, anxiety, depression with suicidal ideation, insomnia, obesity. Concern for potential sleep-disordered breathing raised by Dr. Duarte of urology as part of work-up andevaluation for urgency-frequency syndrome with symptoms of snoring, nocturia. Weight 244 lbs, BMI 40.6. Today -this telephone visit today was performed entirely with Mahi, though her mother seemed to be in the background and Mahi would at times asked her for additional history. Mahi seem to be pleasant interactive, she answered questions fully and completely. She notes that concerns for possible sleep apnea were raised both by her urologist and also from herprimary physician. Mahi believes that these concerns were based on the report of her snoring, andsignificant weight gain. Mahi has been more concerned about her sleep given that she has been gaining weight due to eating a lot near bed or in the middle of the night, feeling tired during the day,being told that she snores loudly and that she has been told that she sleep talks. It is somewhat unclear to me the timeframe of her very loud snoring, though appears to be subacute to potentially long-term. She is unsure if there is any observed apnea. No known family history of sleep disordered breathing. She is open that her sleep-wake pattern is quite variable since she has graduated high school. She is hoping to start a job, but would like to hopefully be sleeping better and feeling less tired beforestarting a new job. Long-term she will likely be living in a jail type environment. Currently she does not have a set bedtime. She often will start to feel tired around 9 PM, but if she goes to bed at this time she will not be able to initiate sleep. She seems to be more likely initiate sleep between 1-2 AM. She will have multiple awakenings during the night, most often urinate, unclear amount of time to return to sleep. If allowed, it sounds that she may sleep until noon or 1 PM. She does feel that she is excessively sleepy during the day, and reports that she used to fall asleep in some classes in high school, but her grades were very stable. She has some occasional sleep talking, but no sleepwalking or other abnormal nocturnal behaviors. In regards to her nighttime eating, she feels that she is fully awake and somewhat has control over these eating behaviors. She does seem to be eating a large amount of food red before bed or during awakenings where she will go down and get cookies, chips, all nonhealthy things. It does sound somewhat that she may feel that she has somewhat of a compulsion or hard to control this urge to eat, but again feels that she is fully awake. She is not aware of any eating behaviors that have occurred without her knowledge. She has not awoken with food in her bed or her mouth. Caffeine use: 1-2 energy drinks in the morning and an unclear number of caffeinated sodas in the afternoon or evening. SIMONA Total Score: 23 Past medical history: Patient Active Problem List Diagnosis Date Noted ??? 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 Nocturia 09/17/2020 Priority: Medium ??? Snores 09/17/2020 Priority: Medium ??? Moderate major depression (H) 06/26/2020 Priority: Medium ??? Suicidal ideations 03/15/2020 Priority: Medium ??? Noninfectious ileitis Priority: Medium ??? S/P surgical removal of pilonidal cyst 01/09/2020 Priority: Medium ??? Pilonidal disease 12/20/2019 Priority: Medium Added automatically from request for surgery [id number] ??? Pilonidal sinus 11/23/2019 Priority: Medium Added automatically from request for surgery [id number] ??? Slow transit constipation 11/16/2019 Priority: Medium [...] Priority: Medium related to her chromosomal abnormality 10 point ROS of systems including Constitutional, Eyes, Respiratory, Cardiovascular, Gastroenterology, Genitourinary, Integumentary, Muscularskeletal, Psychiatric were all negative except for pertinentpositives noted in my HPI. Current Outpatient Medications Medication Sig Dispense Refill ??? Condoms - Female (FC FEMALE CONDOM) MISC Use with every intercourse not to be use with a male condom 5 each 11 ??? etonogestrel (NEXPLANON) 68 MG IMPL 1 each (68 mg) by Subdermal route once ??? Melatonin 10 MG TABS tablet Take 10 mg by mouth nightly as needed for sleep ??? QUEtiapine (SEROQUEL) 300 MG tablet Take 300 mg by mouth At Bedtime OBJECTIVE: Ht 1.651 m (5' 5) Wt 110.7 kg (244 lb) BMI 40.60 kg/m?? Physical Exam: healthy, alert and no distress PSYCH: Alert and oriented times 3; coherent speech, normal rate and volume, able to articulate logical thoughts, able to abstract reason, no tangential thoughts, no hallucinations or delusions His affect is normal RESP: No cough, no audible wheezing, able to talk in full sentences Remainder of exam unable to be completed due to telephone visits --- This note was written with the assistance of the [employer] voice-dictation technology software. The final document, although reviewed, may contain errors. For corrections, please contact the office. Mike Sherwood MD Sleep Medicine [facility] Sleep [facility] ([phone]) [facility] ([phone]) documented in this encounter Nursing Notes Esteban Cho MA - 01/20/2021 1:00 PM CDT Sleep study and follow up appointments schedule. Please see chart for appointment dates. 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 Snores Other dyspnea and respiratory abnormalit y Nocturia Moderate major depression (H) Major depressive disorder, single episod e, moderate Hypersomnia Hypersomnia, unspecified documented in this encounter Additional Health Concerns Assessment Noted Time PHQ-9 Depression Total Score: 13 06/26/2020 10:[address] documented as of this encounter Care Teams Daycare Teacher Relationship Specialty Start Date End Date Khalida Beyer MD PCP - General Psychiatry 05/28/20 08/22/21 Queta Fritz PCP 03/04/14 04/12/21 MD Liza [address] [place], [place] [id number] Tc Jama MD MD Pediatric Surgery 02/14/[address] [place], [place] [id number] Tc Jama MD Assigned Pediatric 05/10/20 09/06/21 [address] Specialist Provider [address] [place] [address] Rosario Noe, Assigned OBGYN Provider 07/21/20 01/16/22 ORNAMENTAL BRICK INSTALLER CNM [address] [place], [place] [id number] Eda Duarte, Assigned Surgical 10/02/20 Provider [address] [facility] [address] [place] [address] documented as of this encounter
--- OUTSIDE RECORDS SUMMARY | 2022-04-23 23:39 | XMS_ITS | Encounter Summary ---
:2002 Author Organization [facility] Address [address] [place] [address] Care Team Providers Name Role Phone Queta Fritz MD Unavailable [phone] Tc Jama MD Unavailable Tc Jama MD Unavailable Khalida Beyer MD Primary Care Provider Rosario Noe APRN CN Unavailable [phone] Eda Duarte MD Unavailable Mike Sherwood MD Unavailable [phone] Encounter Details Date Type Department Care Team Description 03/09/2021 Travel Social History Tobacco Use Types Packs/Day [...] do you attend bahai or Never 2018 jew services? 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 Response Date Recorded In the [...] documented as of this encounter Care Teams Fire Control Technician Relationship Specialty Start Date End Date Khalida Beyer MD PCP - General Psychiatry 05/28/20 08/22/21 Queta Fritz Assigned PCP 03/04/14 04/12/21 MD Liza [address] [facility] [address] [place] [address] Tc Jama MD MD Pediatric Surgery 02/14/20 [facility] [address] [address] Tc Jama MD Assigned Pediatric 05/10/20 09/06/21 [address] Specialist Provider [address] [place] [address] Rosario Noe, Assigned OBGYN Provider 07/21/20 01/16/22 ROUTE SALES REPRESENTATIVE CNM [address] [facility] [address] [place] [address] Eda Duarte, Assigned Surgical 10/02/20 MD Provider [address] [facility] [address] [place] [address] Mike Sherwood Assigned Sleep Provider 01/31/21 MD Navid [address] [place] [id number] documented as of this encounter
--- OUTSIDE RECORDS SUMMARY | 2022-04-23 23:39 | XMS_ITS | Encounter Summary ---
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 Results Component Value Date NA 138 06/29/2020 NA 140 05/29/2020 NA 140 03/16/2020 CO2 26 06/29/2020 CO2 27 05/29/2020 CO2 24 03/16/2020 BUN 7 06/29/2020 BUN 9 05/29/2020 BUN 9 03/16/2020 No results found for: CKTOTAL, CKMB, TROPONINI Lab Results Component Value Date WBC 7.0 05/29/2020 WBC 8.7 03/16/2020 WBC 9.6 11/15/2019 HGB 11.1 05/29/2020 HGB 11.2 03/16/2020 HGB 10.3 11/15/2019 HCT 34.8 05/29/2020 HCT 35.4 03/16/2020 HCT 32.2 11/15/2019 MCV 81 05/29/2020 MCV 83 03/16/2020 MCV 83 11/15/2019 PLT 393 05/29/2020 PLT 416 03/16/2020 PLT 356 11/15/2019 Lab Results Component Value Date CHOL 185 03/16/2020 CHOL 160 12/19/2015 TRIG 145 03/16/2020 TRIG 66 12/19/2015 HDL 66 03/16/2020 HDL 58 12/19/2015 Ref. Range 02/22/2021 23:59 02/23/2021 00:00 HCG Qual Urine Latest Ref Range: Negative Negative SARS CoV2 PCR Latest Ref Range: Negative Negative Amphetamine Qual Urine Latest Ref Range: Screen Negative Screen Negative Cocaine Qual Urine Latest Ref Range: Screen Negative Screen Negative Benzodiazepine Qual Ur Latest Ref Range: Screen Negative Screen Negative Opiates Qualitative Urine Latest Ref Range: Screen Negative Screen Negative Cannabinoids Qual Urine Latest Ref Range: Screen Negative Screen Negative Barbiturates Qual Urine Latest Ref Range: Screen Negative Screen Negative Right knee x-ray on February 14, 2021 Negative right knee, normal joint alignment and spacing, no fracture or joint effusion DIAGNOSIS: 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 Chromosomal [...] with mixed disturbance of emotions and conduct PLAN: Patient was admitted for safety, stabilization and medication management She has a guardian, her mother.I will discus medication adjustment with her.. These are treatment recommendations: Medications: Seroquel 300 mg nightly Seroquel 50 mg every 4 hours as needed for anxiety Melatonin 10 mg nightly as needed for sleep Vistaril 25 mg 4 times daily as needed for anxiety Trazodone 50-100 milligrams nightly as needed for sleep child daycare worker will collect collateral information and make outpatient referrals Staff to provide emotional support and redirect as needed Patient encouraged to attend groups Lab results: Reviewed personally Consultation: According to patient symptom report Patient is on one-to-one for SIB, cutting his self and causing lacerations in the left hand. Risk Assessment: Suicidal, homicidal threats on admission, destruction to property Coordination of Care: Patient seen, medical record reviewed, care coordinated with the team. Total time: More than 35 minutes spent on this visit with more than 50% time spent on coordination of care with staff, reviewing medical record, educating patient about treatment options, side effects and benefits and alternative treatments for medications, providing supportive therapy regarding aboveissues. This document is created with the help of [employer] system. All grammatical/typing errors or context distortion are unintentional and inherent to software. Brittani Blum MD Re-Certification I certify that the inpatient psychiatric facility services furnished since the previous certification were, and continue to be, medically necessary for, either, treatment which could reasonably be expected to improve the patient???s condition or diagnostic study and that the hospital records indicate that the services furnished were, either, intensive treatment services, admission and related services necessary for diagnostic study, or equivalent services. I certify that the patient continues to need, on a daily basis, active treatment furnished directlyby or requiring the supervision of inpatient psychiatric facility personnel. I estimate TBD days of hospitalization is necessary for proper treatment of the patient. My plans for post-hospital care for this patient are : Medications, appointments Brittani Blum MD Lashae Mello RN - 02/23/2021 10:18 PM CDT Senior Financial Accountant was 1:1 with pt this shift for safety, and pt denies SI/HI and no SIB behaviors this shift. Pt was smiling and working on word searches with staff in [facility] all shift, and watched a movie without problems. Senior Financial Accountant encouraged pt to use heat and ice 15 minutes each on R knee area and elevate in W/C. Brace was on R leg all shift and pt wheeled self to BR with display card writer with pt, and pt went into bathroom bearing weight on both legs from locked W/C by herself, and said she will be fine and did well. Senior Financial Accountant encouraged pt to remove brace from leg during sleep and inspected both legs that appear WNL bilaterally. Pt did point to R side of R Patella area saying that is the area she has been having pain in. Pt was given many pillows for comfort in bed and between knees for sleep, and pt stated she is fine and ready for sleep, after pain medication given. Reminded pt to let staff know to help assist with brace application when going to the bathroom and pt concurred. Roslyn Mark RN - 02/23/2021 1:11 PM CDT Patient transferred over to side room [facility] due to self injurious behavior. Patient came over at 1210 on a wheelchair. Right leg noted to be in brace. Patient looking down, flat mood, and depressed. Was wheeled into the side room to have her lunch. Patient became emotional and started crying. RN reported that patient expresses anger and frustration because God did not accept her father. Patientwas reassured. She endorsed command auditory hallucination to self injury. Was given silverware for her lunch but contracted for safety. 1:1 sitter in the room with her while she ate. Patient ate about10% of her meal. Patient encouraged to take a walk to the [facility]. It appeared she could not. She screamed and cried of pain in the right thigh. RN removed the knee brace for physical assessment of the limb. Right leg appeared normal with no swelling or discoloration. Even with the brace momentarily off, patient reported she could feel the pain Pushing to the right side. With much talking and encouragement, the brace was placed back and patient wheeled to the lounge. PRN Tylenol and Atarax administered. Patient could be seen fully engaged with male peer on the unit chatting and laughing loudly. Appears bright and happy at the moment. Elsa Garsia RN - 02/23/2021 10:32 AM CDT Per report pt arrived unit 0330 this morning. Pt stayed up for admission. Currently pt is sleeping. Refused breakfast, vitals and assessments. Safety checks done and no discomfort noted or reported. Will continue to evaluate. Sailaja Pitt RN - 02/23/2021 4:00 AM CDT Reported: Hx dx borderline intellectual Functioning, ADHD, Temper tantrums. Broke plates, threatened to stab self and her mother over her chronic complaint of wanting to go to the hospital for a R knee evaluation- which has been done multiple times without anyphysical evidence found. Was pacified by being given a knee brace for comfort in ER. Reportedly no hx of harm to self or others. Has chromosome 46x abnormality, mother is guardian. Resides partially in a , may require different placement since they cannot provide full-time staff. No thought disturbances, no substance abuse. Stressors: father within the past year. Medical: Not supposed to use wheelchair because of risks associated with immobility and extreme obesity. (BMI>40), nocturia, frequency and urgency r/t urethral stenosis. documented in this encounter H&P Notes Vikas Sung MD - 02/23/2021 10:20 AM CDT PSYCHIATRY HISTORY AND PHYSICAL DATE OF SERVICE 02/23/2021 CHIEF COMPLAINT My knee he was popping. HISTORY OF PRESENT ILLNESS This is a 20 year old female with history of chromosomal abnormality, learning disability, adjustment disorder and suicidal ideations, chronic, with homicidal ideation towards mother who is a guardian.Patient has further history of multiple psychiatric hospitalizations, no CD history. Patient does have history of SIB behaviors. Goal for hospitalization is returning back to snf after stabilization. Now, presentation secondary to similar history of threats to harm self secondary to inability to obtain desired outcome. Patient requesting cares for knee of chronic medical concern. Care coordination performed. Includes, review of care everywhere and epic regarding mental health information associated with presentation. Further care coordination with guardian to obtain consent forhospitalization and associated medication management and cares. Please see associated documentation as reviewed in detail. Includes, patient presentation to [facility] on 02/22/2021 from snf.Reviewed last hospitalization in May 2020 at [facility]. Verbal care coordination with patient's guardian/mother on today's date. In brief, patient presented to [facility] on 02/22/2021 from snf. Had been seen at urgent care for knee pain within the past week. Evaluation for known medical issue as per mother's report requiring surgical intervention approximately 2 to 3 years ago. Patient requesting continued medical cares, but unable to obtain consent from mother. Leading to target behavior exacerbation of property destruction, verbal aggression and statements of suicide. After evaluation at ED, patient was not able to complete a safety plan. Leading to indication for inpatient hospitalization psychiatrically for further evaluation. Further noted stressors to include loss of father within recent past and patient making statements of access to his guns and knives. Further care coordination performed. Includes, review patient's last hospitalization from 05/28 through 06/06/2020 at [facility]. Patient continued on [employer]A FOUNTAIN MANAGER medications. Presentation similar to previous hospitalizations. Patient hospitalized secondary to argument with mother, similar to current p resentation of patient not providing consent for medical services. No medication changes performed during hospitalization. Patient discharged back to snf. After patient evaluation, care coordination performed with patient's guardian, mother. Rosario Faye, . Review patient's mental health history, events associated presentation, medication management and changes if indicated, efforts at disposition. Consent provided. Patient evaluation performed. Patient initially dismissive on approach. Repeat evaluation attempted.Patient reluctantly agreed to evaluation. Stating, I will get it over with now. Patient reviews history of knee pain. Describes knee pain with a popping sound. Confirms initial evaluation through urgent care approximately 1 week ago. Continued to hear a popping sound. Requested staff to take her forfurther medical cares, but consent was not obtained from her mother. Subsequently, patient admits togetting, mad. Further consistent with description collateral report, demonstrated, tantrum, consistent with behavioral exacerbation of property destruction, verbal aggression and statements of suicide. Patient indicates no plan or intent. Despite stressor of loss of father, indicates no further stressors or precipitant aside for knee pain. On further psychiatric review of symptoms, denies further symptoms on evaluation. However, patient is dismissive on approach. Safety plan reviewed. Denies thoughts hurting self or others. Agreed to engage with staff if thoughts emerged and able to maintain safety. Treatment plan reviewed. Including, cares to be coordinated with guardian regarding treatment, stabilization and disposition. Patient offers no further questions or concerns. Patient feels stated goal was achieved of obtaining knee immobilizer. Of note, patient required one-to-one and transfer to unit 5C, a structured and supervised unit with camera supervision secondary to behavior exacerbation of SIB and inability to contract for safety. CHEMICAL DEPENDENCY HISTORY History Drug Use No Social History Substance and Sexual Activity Alcohol use: No History Smoking Status ??? Never Smoker Smokeless Tobacco ??? Never Used Comment: no smokers in household Treatment: None Detox: None Legal: None PAST PSYCHIATRIC HISTORY Psychiatrist: Dr. Khalida Beyer MD. Therapist: Not discussed Case Management: Hermelinda Melgar Hospitalizations: Multiple ?? Most recent: [facility]. 05/28 through 06/06/2020. History of Commitment: None reported Past Medications: Including, not limited to: ?? Seroquel ?? Melatonin ?? Zoloft, trazodone ?? Tenex ECT: No Suicide Attempts/Gun Access: History of SIB. No gun access reported. PAST MEDICAL HISTORY Past Medical History: Diagnosis Date ??? ADHD (attention deficit hyperactivity disorder) ??? 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 Obesity due to excess calories ??? Seasonal allergies ??? Tonsillar abscess, S/P drainage 07/16/2014 Past Surgical History: Procedure Laterality Date ??? [...] DRAINAGE TONSIL, COMBINED 2013 under general anesthesia Primary Care Provider: Khalida Beyer Medications: ??? QUEtiapine 300 mg Oral At Bedtime Medications as needed: acetaminophen, alum & mag hydroxide-simethicone, hydrOXYzine, nicotine, OLANZapine OR OLANZapine, QUEtiapine, senna-docusate, traZODone ALLERGIES: Nkda [no known drug allergies] MEDICATIONS No current outpatient medications on file. Medication adherence issues: MS Med Adherence Y/N: No Medication side effects: MEDICATION SIDE EFFECTS: no side effects reported Benefit: Yes / No: Yes ROS As per [facility] ED provider, Dr Jarrett Noriega MD. Dated 02/22/2021: Musculoskeletal: + knee pain Psychiatric/Behavioral: Positive for agitation and suicidal ideas. All other systems reviewed and are negative. FAMILY HISTORY Family History Problem Relation Age of Onset ??? Hypertension Mother ??? Genetic Disorder Father ALS ??? No Known Problems Brother ??? Cancer Paternal Grandfather lung ??? Anesthesia Reaction Other Negative Psychiatric: None reported Chemical: None reported Suicide: None reported SOCIAL HISTORY Social History Socioeconomic History ??? Marital status: [...] Other Topics Concern ??? Parent/sibling w/ CABG, [place] or angioplasty before 65F 55M? Not Asked [...] Gatherings with Friends and Family: ??? Attends [employer] Services: ??? Active Member of Clubs or Organizations: ??? Attends Club or Organization Meetings: ??? Marital Status: Intimate Partner Violence: ??? Fear of Current or Ex-Partner: ??? Emotionally Abused: ??? Physically Abused: ??? Sexually Abused: Marital Status: Single Children: 0 Legal: None reported Living Situation: Living arrangements - the patient in a snf. MENTAL STATUS EXAM Appearance: Poor eye contact. Limited historian. Knee brace in place. Mood: {Mood: Anxious and Depressed Affect: blunted was congruent to speech Suicidal Ideation: PRESENT / ABSENT: present Unable to contract for safety leading to hospitalization. Required one-to-one after evaluation due to SI behavior. Homicidal Ideation: PRESENT / ABSENT: absent Thought process: perseverative Thought content: endorses preoccupations. Fund of Knowledge: Below average Attention/Concentration: Fair Language ability: Intact Memory: Appropriate Insight: limited. Judgement: limited Orientation: Situation: yes Psychomotor Behavior: Retardation Muscle Strength and Tone: MuscleStrength: Normal Gait and Station: Normal PHYSICAL EXAM Vitals: BP 125/81 Pulse 108 Temp 97.6 ??F (36.4 ??C) (Oral) Resp 18 Wt 113.3 kg (249 lb 12.8oz) SpO2 98% BMI 41.57 kg/m?? Physical exam as per [facility] ED provider, Dr Jarrett Noriega MD. Dated 02/22/2021: Constitutional: Oriented to person, place, and time. [...] noted. No pallor. Psych: Endorses suicidal ideation. LABS personally reviewed. No visits with results within 2 Month(s) from this visit. Latest known visit with results is: Office Visit on 09/17/2020 Component Date Value ??? Color Urine 09/17/2020 Yellow ??? Appearance Urine 09/17/2020 Clear ??? Glucose Urine 09/17/2020 Negative ??? Bilirubin Urine 09/17/2020 Negative ??? Ketones Urine 09/17/2020 Negative ? ? Specific [place] Urine 09/17/2020 >1.030 ??? Blood Urine 09/17/2020 Negative ??? pH Urine 09/17/2020 6.0 ??? Protein Albumin Urine 09/17/2020 Negative ??? Urobilinogen Urine 09/17/2020 0.2 ??? Nitrite Urine 09/17/2020 Negative ??? Leukocyte Esterase Urine 09/17/2020 Negative ??? Source 09/17/2020 Midstream Urine ??? MS Interval 09/17/2020 28ml No results found for: PHENYTOIN, PHENOBARB, VALPROATE, CBMZ ASSESSMENT Admit secondary to acute exacerbation of depressed mood with irritability and target behaviors of property destruction, verbal aggression and statements of suicidal ideation with associated behaviors of self-harm. Occurring the context of recent onset of physical pain. Further stressors of recent lossof father. Indication for inpatient psychiatric hospitalization to coordinate cares, medication management and placement. Consent for admission provided by guardian/mother. DIAGNOSIS Principal Problem: Adjustment disorder with mixed disturbance of emotions and conduct Active Problem List: Patient Active Problem List Diagnosis ??? Chromosomal [...] with mixed disturbance of emotions and conduct PLAN 1. Education given regarding diagnostic and treatment options with risks, benefits and alternatives and adequate verbalization of understanding. 2. Admitted voluntary, by guardian. ?? 02/23/2021: Care coordination performed with mother/guardian, Rosario, . Consent given to continue psychiatric medications and changes as indicated. 3. Medications: 02/23/2021: [employer] FOUNT[employer] MANAGER medications reviewed. ?? Seroquel: Continue SOD[employer] FOUNTAIN MANAGER medication for mood stabilization and impulse control. ?? Melatonin: Continue SOD[employer] FOUNTAIN MANAGER medication for sleep. 4. Medications: Hospital ??? TBD. 5. Consultations: ?? Hospitalist: 02/23/2021: Continued management of acute on chronic knee pain with use of knee immobilizer.. 6. Structure and Supervision ??? Unit 5AB. ??? Transfer to due to SIB with Nursing 1:1 for safety. 7. Physical Education Specialist is following in regards to collecting and reviewing collateral information, referrals and disposition planning. ??? Legal: Guardian. ??? Referrals: TBD ??? Care Coordination: Guardian ??? Placement: Assisted ??? Anticipated Discharge: TBD 8. Further treatment programming to be determined throughout the hospital course. Risk Assessment: IP MHAC RISK ASSESSMENT: Patient on precautions This note was created with help of [employer] dictation system. Grammatical / typing errors are not intentional. Vikas Sung MD CERTIFICATION Initial Certification I certify that the inpatient psychiatric facility admission was medically necessary for treatment which could reasonably be expected to improve the patient???s condition. I estimate 5-7 days of hospitalization is necessary for proper treatment of the patient. My plans for post-hospital care for this patient are snf. Vikas Sung MD - 02/23/2021 - 10:20 AM documented in this encounter Consult Notes Ame Storey APRN CNP - 02/23/2021 3:00 PM CDTAssociated Order(s): HOSPITALIST IP CONSULT [facility] Consult Note - Hospitalist Service Date of Admission: 02/23/2021 Consult Requested by: Dr. Sung Reason for Consult: Evaluation of right knee pain, currently wearing knee immobilizer Assessment & Plan #Acute on chronic right knee pain -02/14/2021 right knee x-ray negative for fracture or effusion -Patient has been wearing right knee immobilizer and according to ED notes was supposed to follow-upwith orthopedics outpatient -Conservative therapies include Tylenol or ibuprofen as needed, Voltaren gel as needed, rest, ice orheat and elevation. Patient care order placed for full weightbearing as tolerated, patient may have the immobilizer off at night, for hygiene cares and if the immobilizer is causing her pain she may have it off for rest breaks - Patient is on the C side locked unit and would not recommend she leave the unit for imaging at this time. Will consider getting a portable repeat knee x- ray if she continues to have pain overnight. We'll also consider curbside phone consult with orthopedic physician if pain persists -Physical therapy evaluate and treat -I spoke to patient's mother and guardian Eleanor Kreuger. She is agreeable to above plan of care. Ifpain persists she will make a outpatient appointment to see patient's orthopedist Dr. Estiven Worthington [facility] Ortho #[place] intellectual functioning - plan of care needs to be discussed with patient's mother who is her guardian #Suicidial ideation #JANETH #Depression - psychiatry managing Total time spent on the unit 20 minutes in reviewing the record, examination of patient, lab resultsand completing documentation. 12 minutes was spent in discussion and counseling with patient concerning diagnosis, medications, lab results and treatment plan. Care discussed and coordinated with patient and nurse. Spoke to patient's mother and guardian Eleanor Krueger via phone. Ame Storey APRN [facility] Securely message with the [employer] (learn more here) Text page via [employer] Paging/Directory Chief Complaint Right knee pain History is obtained from the patient and chart review History of Present Illness Mahi Faye is a 20 year old female who presented from snf to [facility] ED on 02/22/21 with suicidal ideation. Transfer to behavioral health unit at [facility] on 02/23/2021 for suicidal ideation. Past medical history includes borderline intellectual functioning, generalized an xiety disorder, depression and suicidal ideation. Recent stressors include dad dying of Covid a couple months ago. She is also had some right knee pain and was evaluated in urgent care on 02/14/2021. Right knee x-ray at that time was negative for fracture or effusion. She has been in a knee immobilizer. Hospital medicine consulted for acute on chronic knee pain with right knee immobilizer. When I approached patient she was sitting in the lounge, in a wheelchair with her knee brace on and leg elevated. She appeared calm and in no acute distress, doing a coloring activity. She was calm andcooperative for the visit. Patient tells me for over a week the right knee has been hurting. She says most of the pain is right directly over the kneecap rated 6 out of 10 and occasionally radiates up her right thigh. Patient also said she had surgery on this knee As it popped out of place once. Afterher urgent care visit last week she was given knee immobilizer again and physical therapy appointment was arranged to start on March 11. No other complaints and denies fever, shortness of breath, chest pain or nausea. I spoke to patient's mother and guardian Eleanor Krueger via phone. She verified that patient had a dislocated knee cap twice in the past which required surgery by Dr. Estiven Worthington at [facility] in [place]. She thinks the surgery was in 2018 or 2019. Patient's mother states that prior to this recent complaint of knee pain she had been biking and swimming that day with no complaints. When staff at the snf asked her to clean up some dishes she had a behavior escalation, reports of increased knee pain and insisted she be brought to the ED. Patient's mother asked that staff observe patient when she does not realize you are watching her as most of the time she is able to walk and do activities without knee pain and this may be partially behavioral. Review of Systems: The 10 point Review of Systems is negative other than noted in the HPI Past Medical History I have reviewed this patient's medical history and updated it with pertinent information if needed. Past Medical History: Diagnosis Date ??? ADHD (attention deficit hyperactivity disorder) ??? 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 Obesity due to excess calories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 OT: Ismael, Psych: K.S Progress: Progressing Anticipated length of stay: 1 week Continued Stay Criteria/Rationale: Medication management, coordination of care with guardian Medical/Physical: Seen by hospitalist, order for PT eval for leg Precautions: Behavioral Orders Procedures 1:1 Nursing For SIB with plastic lid- causing small laceration on left hand. Patient also transferred to cameraroom on C side Code 1 - Restrict to Unit Routine Programming As clinically indicated Self Injury Precaution Patient used plastic lid to cut self 02/23 Status 15 Every 15 minutes. Suicide precautions Patients on Suicide Precautions should have a Combination Diet ordered that includes a Diet selection(s) AND a Behavioral Tray selection for Safe Tray - with utensils, or Safe Tray - NO utensils Plan: medication management, return home with guardian once stable Rationale for change in precautions or plan: NA Associated attestation - Brittani Blum MD - 02/26/2021 1:15 PM CDT I agree with the plan. Plan of Care - Marisabel Sarmiento INVESTMENT UNDERWRITER - 02/24/2021 11:44 AM CDTSummary: Initial Assessment Initial Psychosocial Assessment Type of CM visit: Initial Assessment, Clinical National Flatbed Truck Driver Role Introduction, Offer Discharge Planning Information obtained from: [x]Patient []Chart review [x]Collateral Contacts []Court Website Hospitalization information: Mahi Faye is a 20 year old who was admitted to unit 5500 on 02/23/2021 due to suicidal statements and escalating behaviors, such throwing items Patient Self-Assessment Patient reported reason for admission: I got mad. Patient reported symptoms of concern: []sadness []anxiety []anger []poor sleep []medications not working []racing thoughts []substance use [x]agitation []hearing voices []hopelessness []Eating concerns[x]Self-injury [] Other Comments: Current suicidal ideation: [x]No []Yes, no plan []Yes, with plan (describe): Comments: Current homicidal ideation: [x]No [] Yes Comments: Legal Status at Admission: Guardian/ad litum History of Mental Health: Describe current and past mental health symptoms present? Per patient's mother/legal guardian Eleanor patient has diagnoses that include ASD, DD, JANETH, ADHD. She reports patient had lived in a snf setting during her childhood and was terminated from those services when she became an adult. She reports patient has a long history of making suicidal threats and engaging in superficial SIB of scratching/cutting but has no history of suicide attempts. Eleanor states patient is a hypochondraic and will make various reports of medical concerns that she later reports she was faking. Do you understand your mental health diagnosis? YES [x] NO [] History of psychiatric hospitalizations? YES [x] NO [] Details: Multiple hospitalizations over the years. Mother reports patient has been out of the hospital for over a year which has been a success. If YES, within the last 30 days? YES [] NO [x] History of commitment? YES [] NO [x] Details: History of ECT? YES [] NO [x] Details: History of Substance Use Disorder: Have you used alcohol or substances in the past 12 months? YES []/ NO [x] If Yes, Would you like a substance use disorder evaluation? YES [] / NO [x] Previous Treatment? YES []/ NO [x] Details: Significant Life Events (Illness, , Loss): Patient's father a few months ago Is there a history of abuse or psychological trauma: [x]Denies []Yes, present (type): []Yes, past (type): []Patient declined to answer Identify current stressors: []financial, []legal issues, []homelessness, [x]housing, []recent loss, []relationships, []substance use concerns, []medical []unemployment []employment concerns []isolation, []lack of resources, []out of home placements, []parenting issues []domestic violence []other: Comments: Living Situation: []House/apt []Assisted []IRTS []Homeless []Assisted Living []correction []Lives alone [x]Lives with : MOther [x]Other: time recorder lives in new snf setting as they only have enough staff for weekends, so has been going back and forth between moms and new housing in [place]([facility]). Family Composition: Mother, 1 brother Children, ages and current location if minor:NA Relationship status [x]Single [] [] [] []Significant Other []Other: Educational Background: []Less Than High School [x]High School []GED []College Cognitive/learning concerns: Mother reports patient completed high school at a level IV school. She reports patient is developmentally at a 3rd grade level Financial Status: [] Employed, status and location: [x]Unemployment []County Assistance []SSI/SSDI []Waivered services []Other: Legal status(present): [x]Voluntary, []72-hour hold, []Commitment, []Guardianship, []Revocation, []Stay of commitment, Details: Other legal issues identified: [x]None, []Arrest, []Probation/[place], []Driving under influence, []Incarceration, []Sexual offense (level): []Child Protective Services, []Other: Details: Ethnic/Cultural considerations: Caucasion single female Spiritual considerations: Denies Service History: [x]No []Yes: details: Social Functioning (organization, interests) and strengths: Patient reports having a significant other and is looking forward to her plans of going to the [facility]. Current Treatment Providers Are: NO Name, Agency, and phone Psychiatrist [] Khalida Bowman with [facility] Psychotherapist [] Not currently, mother reports pt has gone through a number of therapists. ARM worker [x] digital analytics manager [] FERNANDO Melgar [facility] Waivered Services [] FERNANDO parra, Mom reports working with Games Manager with the waiver [facility] [x] Day Treatment/PHP/YONI trtmt [x] Assisted/AFC/AL [] [facility] [place], head of partner development living(respite type care) due to staff shortages assistant chief nursing officer [x] Other: [] Mother Eleanor Legal Guardian Social Service Assessment of identified patient needs and plan to meet those needs: Senior Financial Accountant spoke with patient's mother Eleanor who is also patient's legal guardian. She reports patient made suicidal threats due to wanting her leg to be assessed. Eleanor reports patient has a history of reporting she is ill in order to be hospitalized, and states patient has had surgery on her knee and has been assessed for any issues, noting she does not believe her leg to be of concern currently. Per chart review this has been addressed by hospitalist who has placed PT order and contacted Eleanor to discuss. Eleanor reports patient has history of SIB and making suicidal threats, but no history of attempts. Patient currently lives with Eleanor the majority of the time due to difficulties finding time recorder staff at her newly found snf placement. Patient goes to this placement, [facility], on the weekends for respite care. Eleanor reports patient has enjoyed this placement due to increased freedom from her previous (childhood) snf, however patient has engaged in more behaviors, ie calling police on the staff, leading to staff quitting. Patient has home care staff that also come into their home, through [facility], to provide some in home supports. Senior Financial Accountant provided update to Eleanor today on patient's brightened affect and report of hoping to discharge by the end of the week. Patient reports plans to attend the [facility]. Eleanor reports she is working with staff at [facility] to decide if patient were to discharge, if she should be able to attend this activity. Patient presents with limited insight. She reports she is feeling better today, denying SI or thoughts of SIB. Patient states to display card writer that her goal is to discharge by the end of the week in order to engage in previously planned activity of going to the [facility] with her SO and staff. Senior Financial Accountant reviewed plan for coordination with her mother to which patient was receptive. Possible discharge plan: Return home with mother, previous supports Barriers: Medication Management, Symptom Stabilization, Coordination of Care Marisabel ONTIVEROS, 02/24/2021, 11:44 AM Plan of Care - Sania Craig RN - 02/24/2021 9:20 AM CDT Problem: Behavioral Health Plan of Care Goal: Adheres to Safety Considerations for Self and Others Outcome: Improving Problem: Suicide Risk Goal: Absence of Self-Harm Outcome: Improving Problem: Behavioral Health Plan of Care Goal: Patient-Specific Goal (Individualization) Outcome: Improving Note: Shift Summery: Patient in wheelchair, reported been stared at by staff during the rn shift mgr,Laughs through out the assessment process. Patient denies anxiety, depression, hallucination and allother psych symptoms. Patient doesn't need wheel chair, weight bearing as tolerated.Ok to discontinue right knee imobolizer at nurses discretion per ORNAMENTAL METAL FABRICATOR APPRENTICE orders. Complains of right knee pain, rated level 7/10, gave her Ibuprofen 400mg with some effects. Applied warm moist pack to pt right knee per pt requested. Patient's Stated Goal for Shift: Play card game Goal Status: Played card with Nelbee. Plan of Care - Cam Centeno RN - 02/24/2021 6:31 AM CDT Problem: Suicide Risk Goal: Absence of Self-Harm Outcome: Improving Problem: Suicidal Behavior Goal: Suicidal Behavior is Absent or Managed Outcome: Improving Pt already asleep at start of shift. On suicide and SIB precautions but none of these noted during the shift. No pain or concerns noted or reported by pt. Pt slept uninterrupted through the night for > 6 hours. 1:1 close observation sitter by bedside for pt's safety due to SIB on previous shift. Plan of Care - Amrita Lindsay RN - 02/23/2021 7:39 PM CDT Problem: Behavioral Health Plan of Care Goal: Adheres to Safety Considerations for Self and Others Outcome: Improving Problem: Suicide Risk Goal: Absence of Self-Harm Outcome: Improving Patient was visible on the unit. Affect flat and guarded. Patient was observed doing word search. Patient seemed to enjoy, observed smiling. Patient rates right knee pain 5/10, no grimacing or guarding the site. Prn Ibuprofen was given with some relief per patient. Pain down to 4/10. Patient also utilized warm pack, and cold pack. Patient was observed making a couple steps without assistance. Patient selected a movie, no unsteady gait was observed.Patient continues to wear a knee immobilizer, utilizes the chair for mobility until PT sees her. At 2122, patient complained of pain rated 6/10, prn Tylenol 650 mg was given. The knee was also elevated with two pillows. Patient advised to call for help.No self-injurious behaviors were observed. Patient continue to be on 1:1 for safety. Patient endorses anxiety /10, and depression 1/10. Patient denies intent to hurt herself or peers. Patient denies hallucinations. Contracts for safety.Patient watched a movie with peers.patient ate 100% dinner, and hs snack.Patient's bilateral leg was assessed no swelling was noted. Significant Event - Elsa Garsia RN - 02/23/2021 12:42 PM CDT Senior Financial Accountant went to check on pt @ 1145, and met pt agitated, and angry. Pt tore up her welcoming folder into pieces, and was using cup lid to furiously scratch her arm. Pt made a small superficial scratch on her left arm. Charge Nurse notified. Security assist called. Pt was given PRN 10mg Zyprexa @ 1157 with security assist. Pt transferred to C-Side as accepted with a wheelchair. Pt is wearing braces on rt leg. Report given to C-Side nurse. Will continue to evaluate. Pharmacy-Admission Medication History - Mar Kim RPH - 02/23/2021 9:40 AM CDT Pharmacy Note - Admission Medication History Pertinent Provider Information: None Prior To Admission (SODA FOUNTAIN MANAGER) med list completed and updated in EMR. [facility]A FOUNTAIN MANAGER Med List Medication Sig Last Dose ??? QUEtiapine (SEROQUEL) 300 MG tablet Take 300 mg by mouth At Bedtime ??? QUEtiapine (SEROQUEL) 50 MG tablet Take 50 mg by mouth every 4 hours as needed Information source(s): Clinic records and [facility] Method of interview communication: N/A Patient does not use any multi-dose medications prior to admission. The information provided in this note is only as accurate as the sources available at the time of the update(s). Thank you for the opportunity to participate in the care of this patient. Mar Dockery RP 02/23/2021 9:40 AM Plan of Care - Albert Panda RN - 02/23/2021 6:17 AM CDT Problem: Behavioral Health Plan of Care Goal: Plan of Care Review Outcome: Improving Problem: Suicide Risk Goal: Absence of Self-Harm Outcome: Improving Problem: Behavior Management Goal: Effective Behavior Management Outcome: Improving Pt is an admit from [facility] who got here at about 0330 on a stretcher accompanied by transportation. Per report, pt is from a snf and has a guardian who is her mom. C/o knee pain at the snf and her mother was informed but refused that pt should be sent to the hospital. Pt got angry and started screaming and throwing object on the wall and stating I am going to kill myself where are the knives?. Her mom notified again and she gave okay for pt to be transported to the hospital. EMS called and pt was transported to [facility]. At [facility], x-ray done to right kneeand was negative for fracture. Knee brace applied for comfort. COVID-19 test done and was negative. UDS also negative. Pt calm and cooperative. Pt a/o x 3. Vitals stable with HR tachy. Down to gown done with two staff and no skin issues noted. Rt knee brace is on and intact. Denied anxiety, rated depression 7. Denied SI/HI. Denied hallucination/delusion. Contracted for safety. Rated pain 10/10 on right knee when ambulating. Dr Sung text paged for admission orders. Pt calm and cooperative with admission. Pt on suicidal Precaution. Diet isregular. Pt resting comfortable. No other concerns or behavior noted at this time. Will continue to monitor and will assist if need arise. documented in this encounter Plan of Treatment Not on filedocumented as of this encounter Procedures Procedure Name Priority Date/Time Associated Diagnosis Comme nts HEPATIC FUNCTION Routine 02/27/2021 7:16 AM Resul ts for this PANEL CDT procedure are i n the results section. documented in this encounter Results (ABNORMAL) Hepatic panel (02/27/2021 7:16 AM CDT) [facility] gist Method Time Signature Bilirubin Total 0.3 0.0 - 1.0 02/27/2021 [facility] Y mg/dL 7:52 AM CDT Bilirubin Direct 0.1 <=0.5 02/27/2021 [facility] RY mg/dL 7:52 AM CDT Protein Total 6.6 6.0 - 8.0 02/27/2021 [facility] g/dL 7:52 AM CDT Albumin 3.1 (L) 3.5 - 5.0 02/27/2021 [facility] g/dL 7:52 AM CDT Alkaline 124 50 - 364 02/27/2021 [facility] Phosphatase U/L 7:52 AM CDT AST 13 0 - 40 U/L 02/27/2021 [facility] 7:52 AM CDT ALT 14 0 - 45 U/L 02/27/2021 [facility] 7:52 AM CDT Specimen Anatomical Collection Method / Collection Time Recei bibiana Time (Source) Location / Volume Laterality Blood STRUCTURE OF RIGHT Venipuncture / 02/27/2021 7:16 02/16 7:35 UPPER LIMB / Unknown AM CDT AM CDT Unknown Brittani Blum MD LAB - BLOOD ORDERABLES Performing Organization Address City/State/ZIP Code Phon [place] Number [place] [address] [place] [address], [facility] [[email or web address]] [phone] [place] [address] documented in this encounter Visit Diagnoses Diagnosis 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 - Primary JANETH (generalized anxiety disorder) Generalized anxiety disorder Pain Generalized pain Mood disorder (H) Unspecified episodic mood disorder 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 Learning disability Other specific developmental learning di fficulties Anxiety Anxiety state, unspecified Insomnia Insomnia, unspecified Aggression with talk of suicide/homicide Explosive personality disorder Development delay Unspecified delay in development Borderline intellectual functioning Other psychological or physical stress, not elsewhere classified documented in this encounter Admitting Diagnoses Diagnosis Mood disorder (H) Unspecified episodic mood disorder documented in this encounter Administered Medications Inactive Administered Medications - up to 3 most recent administrations Medication Order MAR Action Action Date Dose Rate Site acetaminophen (TYLENOL) tablet Given 02/25/2021 12:43 PM CDT 650 mg 650 mg 650 mg, Oral, EVERY 4 HOURS PRN, mild pain, to moderate pain, Starting on 02/23/21 at 0538, Do not use if the patient has significant liver disease. MAX acetaminophen = 4000 mg/24 hrs. MAX acetaminophen LESS than 3000 mg/24 hrs for patients GREATER than or EQUAL to 65 years old. Maximum acetaminophen dose from all sources = 75 mg/kg/day not to exceed 4 grams/day. Given 02/23/2021 9:23 PM CDT 650 mg Given 02/23/2021 1:04 PM CDT 650 mg diclofenac (VOLTAREN) 1 % topical gel 2 g 2 g, Topical, 3 TIMES DAILY PRN, moderate pain, Starti ng on 02/23/21 at 1455, Apply to right knee/thigh area as needed for pain Send dosing card with product. divalproex sodium extended-release (DEPA KOTE ER) 24 hr tablet 250 mg 250 mg, Oral, AT BEDTIME, First dose (af ter last modification) on Wed02/27/21 at 2100, DO NOT CRUSH. divalproex sodium extended-release (DEPAKOTE Given 05/2021 8:53 PM CDT 750 mg ER) 24 hr tablet 750 mg 750 mg, Oral, AT BEDTIME, First dose on Wed02/25/21 at 2130, DO NOT CRUSH. Given 02/25/2021 9:44 PM CDT 750 mg hydrOXYzine (ATARAX) tablet 25 mg Given 02/27/2021 5:25 PM CDT 25 mg 25 mg, Oral, EVERY 4 HOURS PRN, anxiety, Starting on 02/23/21 at 0538, Administer only if there is no other oral medication ordered prn for anxiety. Consider discontinuing if another PRN is ordered for anxiety. Given 02/23/2021 9:23 PM CDT 25 mg Given 02/23/2021 1:04 PM CDT 25 mg ibuprofen (ADVIL/MOTRIN) tablet 400 mg Given 02/27/2021 4:29 PM CDT 400 mg 400 mg, Oral, EVERY 6 HOURS PRN, moderate pain, inflammatory pain, knee pain -04/27, Starting on 02/23/21 at 1447, Give with food. Given 02/26/2021 8:54 PM CDT 400 mg Given 02/26/2021 12:17 PM CDT 400 mg Melatonin tablet 10 mg Given 02/26/2021 8:53 PM CDT 10 mg 10 mg, Oral, AT BEDTIME PRN, sleep, Starting on 02/23/21 at 1319 Given 02/25/2021 9:45 PM CDT 10 mg Given 02/23/2021 8:13 PM CDT 10 mg OLANZapine (zyPREXA) injection 10 mg 10 mg, Intramuscular, 3 TIMES DAILY PRN, agitation, associated with psychosis or dylan if patient unable to take PO., Sta rting on 02/23/21 at 0538, Doses should be at least 2 hours apart. At least 1 ho ur is recommended between administration of IM olanzapine and an IV/IM benzodiazepin e to minimize risk of excessive sedation and cardiorespiratory depression. Dissol ve the contents of the 10 mg vial using 2.1 mL of Sterile Water for Injection to provide a solutio n containing 5 mg/mL of olanzapine. Withdraw the ordered dose fr om vial. Use immediately (within 1 hour) after reconstitution. Discard any unused portion. OLANZapine (zyPREXA) tablet 10 mg Given 02/23/2021 11:57 AM CDT 10 mg 10 mg, Oral, 3 TIMES DAILY PRN, agitation, associated with psychosis or dylan, Starting on 02/23/21 at 0538, Not to exceed 30 mg in 24 hours. Doses should be at least 2 hours apart. Combined IM and PO doses may significantly increase the risk of orthostatic hypotension at 30 mg per day or higher. QUEtiapine (SEROquel) tablet 300 mg Given 02/26/2021 8:53 PM CDT 300 mg 300 mg, Oral, AT BEDTIME, First dose on 02/23/21 at 0600 Given 02/25/2021 8:08 PM CDT 300 mg Given 02/24/2021 8:33 PM CDT 300 mg traZODone (DESYREL) tablet 50 mg Given 02/24/2021 8:33 PM CDT 50 mg 50 mg, Oral, AT BEDTIME PRN, sleep, may repeat after 60 minutes, Starting on 02/23/21 at 0538 documented in this encounter Active and Recently Administered Medications Times are shown in CDT. Scheduled Medication Order 02/25/2021 02/26/2021 02/27/2021 divalproex sodium extended-release (DEPAKOTE ER) 24 hr tablet 25 0 mg 2099 (Canceled Entry - Provider: Orders Generic Provider - Comment: Automatically canceled at discontinue of medication order) 250 mg, Oral, AT BEDTIME, First dose (af ter last modification) on Wed02/27/21 at 2100, DO NOT CRUSH. divalproex sodium extended-release (DEPAKOTE ER) 24 hr tablet 750 mg (CANCELED) 2143 (Given - Provider: Edyta Villavicencio RN) 2052 (Given - Provider: Edyta Villavicencio RN) 750 mg, Oral, AT BEDTIME, First dose on Wed02/25/21 at 2130, DO NOT CRUSH. QUEtiapine (SEROquel) tablet 300 mg 2007 (Given - Prov ider: Edyta Villavicencio RN) 2052 (Given - Provider: Edyta Villavicencio RN) 2100 (Ca nceled Entry - Provider: Orders Generic Provider - Comment: Automatically canceled at discontinue of medication order) 300 mg, Oral, AT BEDTIME, First dose on Wed02/23/21 at 0600 PRN Medication Order 02/25/2021 02/26/2021 02/27/2021 acetaminophen (TYLENOL) tablet 650 mg 1243 (Given - Provider : Niyah Solares RN) 650 mg, Oral, EVERY 4 HOURS PRN, mild pa in, to moderate pain, Starting on 02/23/21 at 0538, Do not use if the patient has significant liver disease. MAX acetaminophen = 4000 mg/24 hrs. MAX acetaminoph en LESS than 3000 mg/24 hrs for patients GREATER than or EQUAL to 65 years old. Maximum acetaminophen dose from all sources = 75 mg/kg/day not to exceed 4 grams/day. alum & mag hydroxide-simethicone (MAALOX) suspension 30 mL 30 mL, Oral, EVERY 4 HOURS PRN, indigest ion, Starting on 02/23/21 at 0538, Shake well. diclofenac (VOLTAREN) 1 % topical gel 2 g 2 g, Topical, 3 TIMES DAILY PRN, moderat e pain, Starting on 02/23/21 at 1455, Apply to right knee/thigh area as needed for pain Send dosing card with product. hydrOXYzine (ATARAX) tablet 25 mg 1724 (Given - Provider: Nitza Covarrubias RN) 25 mg, Oral, EVERY 4 HOURS PRN, anxiety, Starting on 02/23/21 at 0538, Administer only if there is no other oral medication ordered prn for anxiety. Consider discontinuing if another PRN is ordered for anxiety. ibuprofen (ADVIL/MOTRIN) tablet 400 mg 183 (Given - P rovider: Edyta Villavicencio RN) 121 (Given - Provider: Sania magallon RN)2053 (Given - Provider: Edyta Villavicencio RN) 162 (Given - Provider: Lisy Rodriguez) 400 mg, Oral, EVERY 6 HOURS PRN, moderat e pain, inflammatory pain, knee pain 4- 10/10, Starting on 02/23/21 at 1447, Give with food. Melatonin tablet 10 mg 2144 (Given - Provider: Edyta call RN) 2052 (Given - Provider: Edyta Villavicencio RN) 10 mg, Oral, AT BEDTIME PRN, sleep, Starting on 02/23/21 at 13 19 nicotine (NICORETTE) lozenge 4 mg 4 mg, Buccal, EVERY 1 HOUR PRN, other, n icotine withdrawal symptoms, Starting on 02/23/21 at 0538, Allow lozenge to dissolve slowly. Do not swallow. Not to exceed 80 mg in a 24 hour time period. OLANZapine (zyPREXA) injection 10 mg(Linked Group 1) 10 mg, Intramuscular, 3 TIMES DAILY PRN, agitation, associated with psychosis or dylan if patient unable to take PO., Starting on 02/23/21 at 0538, Doses should be at least 2 hours apart. At least 1 h our is recommended between administratio n of IM olanzapine and an IV/IM benzodiazepine to minimize risk of excessive sedation and cardiorespiratory depression. Dissolve the contents of the 10 mg vial us ing 2.1 mL of Sterile Water for Injectio n to provide a solution containing 5 mg/mL of olanzapine. Withdraw the ordered dose from vial. Use immediately (within 1 hour) after reconstitution. Discard any unused portion. OLANZapine (zyPREXA) tablet 10 mg(Linked Group 1) 10 mg, Oral, 3 TIMES DAILY PRN, agitatio n, associated with psychosis or dylan, Starting on 02/23/21 at 0538, Not to exceed 30 mg in 24 hours. Doses should be at least 2 hours apart. Combined IM and PO doses may significantly increase the ri sk of orthostatic hypotension at 30 mg per day or higher. QUEtiapine (SEROquel) tablet 50 mg 50 mg, Oral, EVERY 4 HOURS PRN, Anxiety, Starting on 02/23/21 at 0536 senna-docusate (SENOKOT-S/PERICOLACE) 8.6-50 MG per tablet 1 tab let 1 tablet, Oral, 2 TIMES DAILY PRN, const ipation, Starting on 02/23/21 at 0538, Hold for loose stools. traZODone (DESYREL) tablet 50 mg 50 mg, Oral, AT BEDTIME PRN, sleep, may repeat after 60 minutes, Starting on 02/23/21 at 0538 Linked Groups Order Group 1: OLANZapine (zyPREXA) tablet 10 mgJump to med 10 mg, Oral, 3 TIMES DAILY PRN, agitatio n, associated with psychosis or dylan, Starting on 02/23/21 at 0538
Not to exceed 30 mg in 24 hours. Doses should be at least 2 hours apart. C ombined IM and PO doses may significantl y increase the risk of orthostatic hypotension at 30 mg per day or higher.
Or OLANZapine (zyPREXA) injection 10 mgJump to med 10 mg, Intramuscular, 3 TIMES DAILY PRN, agitation, associated with psychosis or dylan if patient unable to take PO., Starting on 02/23/21 at 0538
Doses should be at least 2 hours apart. At l east 1 hour is recommended between admin istration of IM olanzapine and an IV/IM benzodiazepine to minimize risk of excessive sedation and cardiorespiratory depression. Dissolve the contents of the 10 mg vial using 2.1 mL of Sterile W ater for Injection to provide a solution containing 5 mg/mL of olanzapine. Withdraw the ordered dose from vial. Use immediately (within 1 hour) after reconstitution. Discard any unused portion.
documented in this encounter Additional Health Concerns Assessment Noted Time PHQ-9 Depression Total Score: 13 06/26/2020 10:[address] documented as of this encounter Care Teams Telecommunications Field Engineer Relationship Specialty Start Date End Date Khalida Beyer MD PCP - General Psychiatry 05/28/20 08/22/21 Queta Fritz Assigned PCP 03/04/14 04/12/21 MD Liza [address] [facility] [address] [place], [place] [id number] Tc Jama MD MD Pediatric Surgery 02/14/20 [facility] [id number] Tc Jama MD Assigned Pediatric 05/10/20 09/06/21 2450 BEKAH BLUNT Specialist Provider [address] [place], [place] [id number] Rosario Noe, Assigned OBGYN Provider 07/21/20 01/16/22 AUTO RENTAL CLERK CNM [address] [facility] 200 [place] [address] Eda Duarte, Assigned Surgical 10/02/20 Provider [address] [facility] [address] [place] [address] Mike Sherwood Assigned Sleep Provider 01/31/21 MD Navid [address] [place] [phone] documented as of this encounter
--- OUTSIDE RECORDS SUMMARY | 2022-04-23 23:39 | XMS_ITS | Encounter Summary ---
:2000 Author Organization [facility] Address [address] [place] [address] Care Team Providers Name Role Phone Queta Fritz MD Unavailable [phone] Tc Jama MD Unavailable Tc Jama MD Unavailable Khalida Beyer MD Primary Care Provider Rosario Noe APRN CN Unavailable [phone] Eda Duarte MD Unavailable Mike Sherwood MD Unavailable [phone] Reason for Visit Reason Comments Knee Pain Encounter Details Date Type Department Care Team Description 03/06/2021 Emergency [facility] Roaslino Curtis MD Sprain of right knee, [facility] Emergency Dep t [facility] unspecified ligament, [address] [place] initial encounter [place], [place] [address] [facility] [id number] [place] [address] [place], [place] [id number] (Wo rk) Social History Tobacco Use Types [...] or relatives? How often do you attend latter-day or Never 2018 mandaen services? Do you belong to any clubs or No 12/07/2018 organizations such as latter-day groups, unions, fraternal or athletic groups, or [...] at Date Recorded Female 09/04/2021 9:00 PM [employer]IFF COVID-19 Exposure Response Date Recorded In the last month, have you been in contact with No / Unsure 03/06/2021 12:00 AM CDT someone who was confirmed or suspected to have Coronavirus / COVID-19? documented as of this encounter Last Filed Vital Signs Vital Sign Reading Time Taken Comments Blood Pressure 172/93 03/05/2021 11:33 PM CDT Pulse 100 03/05/2021 11:30 PM CDT Temperature 37.1 ??C (98.7 ??F) 03/05/2021 11:30 PM CDT Respiratory Rate 20 03/05/2021 11:30 PM CDT Oxygen Saturation 98% 03/05/2021 11:30 PM CDT Inhaled Oxygen Concentration - - Weight - - Height - - Body Mass Index - - documented in this encounter Discharge Instructions AttachmentsThe following attachments cannot be sent through Care Everywhere.Knee Sprain (Turkmen)documented in this encounter Medications at Time of [...] as of this encounter ED Notes Fang Whitney RN - 03/05/2021 11:28 PM CDT Pt to ER with c/o right knee pain pt was riding her bike felt pain, felt a pop pt has hx of knee surg on right knee González Curtis MD - 03/05/2021 11:27 PM CDT History Chief Complaint: Knee Pain The history is provided by the patient. Mahi Faye is a 20 year old female with history of right knee arthroscopy who presents with right knee pain that started while she was riding her bike earlier tonight. She states the pain was a10/10 but has since come down to an 8/10 with interventions given by EMS in route. She states she feels the right knee is going to pop out and is not able to ambulate on her own. She follows up with [facility] in [place]. No other injuries sustained tonight Review of Systems Musculoskeletal: Positive for arthralgias (right knee) and gait problem. All other systems reviewed and are negative. Allergies: The patient has no known allergies. 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 Lives at home with family. Physical Exam Patient Vitals for the past 24 hrs: BP Temp Temp src Pulse Resp SpO2 03/05/21 2333 (!) 172/93 -- -- -- -- -- 03/05/21 2330 -- 98.7 ??F (37.1 ??C) Temporal 100 20 98 % Physical Exam VS: Reviewed per above HENT: normal speech EYES: sclera anicteric CV: Rate as noted, regular rhythm. RESP: Effort normal. NEURO: Alert, moving all extremities MSK: No deformity of the extremities, able to actively flex and extend the right knee but experiences pain. No focal tenderness about the knee. SKIN: Warm and dry Emergency Department Course Imaging: XR Knee Right 3 Views: No fracture or dislocation. No joint effusion. As per radiology. Emergency Department Course: Reviewed: I reviewed nursing notes, vitals, past medical history and care everywhere Assessments: 0049 I obtained history and examined the patient as noted above. \ Disposition: The patient was discharged to home. Impression & Plan [facility] Diagnoses: None Medical Decision Making: Patient presents to the ER for evaluation of right knee pain. On arrival vital signs are reassuring.On exam there is no deformity or significant effusion appreciated. X-ray does not show evidence of fracture or dislocation. We discussed that patient could have underlying meniscus or ligamentous injury and she was provided with Blaise wrap and crutches. We discussed compression, elevation, icing, [id number] analgesia and close follow-up with orthopedic group. Patient reported that her mother knows she is currently here, and I followed up with welt maker and requested that her mother be involved in discharge planning. Return precautions discussed prior to discharge. Diagnosis: ICD-10-CM 1. Sprain of right knee, unspecified ligament, initial encounter S83.91XA Scribe Disclosure: Alanis Reis, am serving as a scribe at 12:45 AM on 03/06/2021 to document services personally performed by González Curtis MD based on my observations and the provider's statements to me. González Curtis MD 03/06/21 0151 documented in this encounter Plan of Treatment Not on filedocumented as of this encounter Procedures Procedure Name Priority Date/Time Associated Diagnosis Comme nts XR KNEE RIGHT 3 STAT 03/05/2021 11:58 PM Resul ts for this VIEWS CDT procedure are i n the results section. documented in this encounter Results XR Knee Right 3 Views (03/05/2021 11:58 PM CDT) Anatomical Region Laterality Modality Thigh, Knee, Leg Right Computed Radiography Specimen (Source) Anatomical Collection Method Collection Time Re ceived Time Location / / Volume Laterality 03/05/2021 11:53 PM CDT Impressions 03/06/2021 12:03 AM CDT IMPRESSION: No fracture or dislocation. No joint effusion. Narrative 03/06/2021 12:03 AM CDT EXAM: XR KNEE RIGHT 3 VIEWS LOCATION: [facility] DATE/TIME: 03/05/2021 11:53 PM INDICATION: Pain. COMPARISON: None. Procedure Note Javy Walter MD - 03/06/2021Form atting of this note might be different from the original. EXAM: XR KNEE RIGHT 3 VIEWS LOCATION: [facility] DATE/TIME: 03/05/2021 11:53 PM INDICATION: Pain. COMPARISON: None. IMPRESSION: No fracture or dislocation. No joint effusion. González Curtis MD IMG DIAGNOSTIC IMAGING ORDER LINDSAY documented in this encounter Visit Diagnoses Diagnosis Sprain of right knee, unspecified ligame nt, initial encounter documented in this encounter Additional Health Concerns Assessment Noted Time PHQ-9 Depression Total Score: 13 06/26/2020 10:[address] documented as of this encounter Care Teams Pilot Plant Supervisor Relationship Specialty Start Date End Date Khalida Beyer MD PCP - General Psychiatry 05/28/20 08/22/21 Queta Fritz Assigned PCP 03/04/14 04/12/21 MD Liza [facility] [address] [id number] Tc Jama MD MD Pediatric Surgery 02/14/20 [facility] [place] [address] Tc Jama MD Assigned Pediatric 05/10/20 09/06/21 9038 BEKAH BLUNT Specialist Provider 505 [place] [address] Rosario Noe, Assigned OBGYN Provider 07/21/20 01/16/22 PRESCHOOL EDUCATION DIRECTOR CNM [address] [place] [address] Eda Duarte, Assigned Surgical 10/02/20 MD Provider [address] [facility] [address] [place] [address] Mike Sherwood Assigned Sleep Provider 01/31/21 MD Navid [address] [place] [address] documented as of this encounter
--- OUTSIDE RECORDS SUMMARY | 2022-04-23 23:39 | XMS_ITS | Encounter Summary ---
:2002 Author Organization [facility] Address [address] [place] [address] Care Team Providers Name Role Phone Queta Fritz MD Unavailable [phone] Tc Jama MD Unavailable Tc Jama MD Unavailable Khalida Beyer MD Primary Care Provider Rosario Noe APRN CN Unavailable [phone] Eda Duarte MD Unavailable Mike Sherwood MD Unavailable [phone] Encounter Details Date Type Department Care Team Description 03/06/2021 Travel Social History Tobacco Use Types Packs/Day [...] or relatives? How often do you attend anabaptism or Never 2018 latter day services? 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 COVID-19 Exposure Response Date Recorded In the [...] documented as of this encounter Care Teams Commercial Lines Account Assistant Relationship Specialty Start Date End Date Khalida Beyer MD PCP - General Psychiatry 05/28/20 08/22/21 Queta Fritz Assigned PCP 03/04/14 04/12/21 MD Liza [address] [facility] [address] [place] [address] Tc Jama MD MD Pediatric Surgery 02/14/20 [facility] [address] [address] Tc Jama MD Assigned Pediatric 05/10/20 09/06/21 2450 BEKAH BLUNT Specialist Provider [address] [place] [address] Rosario Noe, Assigned OBGYN Provider 07/21/20 01/16/22 LIQUID NATURAL GAS PLANT OPERATOR CNM [address] [facility] 200 [place] [address] Eda Duarte, Assigned Surgical 10/02/20 MD Provider [address] [facility] [address] [place] [address] Mike Sherwood Assigned Sleep Provider 01/31/21 MD Navid [address] [place] [address] documented as of this encounter
--- OUTSIDE RECORDS SUMMARY | 2022-04-23 23:40 | XMS_ITS | Encounter Summary ---
:2000 Author Organization [place] Address [address] [place] [address] Care Team Providers Name Role Phone Queta Fritz MD Unavailable [phone] Tc Jama MD Unavailable Tc Jama MD Unavailable Khalida Beyer MD Primary Care Provider Rosario Noe APRN CN Unavailable [phone] Reason for Visit Reason Comments Nighttime Polyuria Some Urinary Frequency durin g the daytime as well Consultation (Routine) - Closed Specialty Diagnoses / Procedures Referred By Contact Refer red To Contact Urology Diagnoses Polyuria Queta Fritz, Ub Urologic Raisa Booker MD [address] [facility] [address] [facility] [address] [place] [address] [place] [address] Fax: Referral ID Status Reason Start Date Expiration Date Visits Requ ested Visits Authorized [id number] Closed 06/26/2020 06/26/2021 1 1 Encounter Details Date Type Department Care Team Description 09/17/2020 Office Visit [facility] Farzana Fritz MD [address] [facility] [address] [place] [address] Slow transit constipation (Primary Dx); Urology Clinic Eda Duarte MD [address] [facility] [address] [place] [address] Urgency-frequency syndrome; [place] Nocturia; [address] [place] [address] Social History Tobacco Use Types Packs/Day Years [...] or relatives? How often do you attend shinto or Never 2018 uatsdin services? 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 documented as of this encounter Last Filed Vital Signs Vital Sign Reading Time Taken Comments Blood Pressure - - Pulse - - Temperature - - Respiratory Rate - - Oxygen Saturation - - Inhaled Oxygen Concentration - - Weight 102.1 kg (225 lb) 09/17/2020 1:29 PM BRAND DESIGNER Height 173.1 cm (5' 8.15) 09/17/2020 1:29 PM BRAND DESIGNER Body Mass Index 34.06 09/17/2020 1:29 PM BRAND DESIGNER Body Mass Index Percentile 97.26 % 09/17/2020 1:29 PM CS T Growth Chart: [facility] (Girls, 2-20 Years) documented in this encounter Patient Instructions Patient InstructionsEda Duarte See MD Alex - 09/17/2020 1:30 PM CST Websites with free information: [employer] patient website: www.voicesforpfd.org Total Control Program: www.totalcontrolprogram.com It was a pleasure meeting with you today. Thank you for allowing me and my team the privilege of caring for you today. YOU are the reason we are here, and I truly hope we provided you with the excellent service you deserve. Please let us know if there is anything else we can do for you so that we can be sure you are leaving completely satisfied with your care experience. 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 Suspect a component of intake so will start with a voiding diary Slow transit constipation May contribute to symptoms, she is working on this with her PCP Nocturia/Snores May need to evaluate for sleep apnea if no modifiable factors or if nocturnal polyuria RTC in 2 weeks with bladder diary Eda Duarte MD MPH (she/her/hers) Offset Machine Operator of [facility] Referring Provider: Queta Fritz MD [address] [place] [address] Primary Care Provider: Khalida Beyer HPI: Mahi Faye is a 20 year old female who presents for evaluation of her pelvic floor symptoms. She has a history of ADHD, chromosomal abnormality and learning disability Urinates about 10x a day, 7-8x a night. States that she has been told she snores Drinks a lot of water, juice, often up to bedtime Sometimes has arnold palmers, soda on the weekends Does state she has some very small volume urinary incontinence Denies gross hematuria, UTI. She has a history of a cystoscopy with urethral dilation with Dr Pino in 2004, follicular cystitis Past Medical History: Diagnosis Date ??? ADHD (attention deficit hyperactivity disorder) ??? 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 Seasonal allergies ??? Tonsillar abscess, S/P [...] COMBINED 2013 under general anesthesia Social History Socioeconomic History ??? Marital status: Single Spouse name: Not on file ??? Number of children: Not on file ??? Years of education: Not on file ??? Highest education level: 10th grade Occupational History ??? Not on file Social Needs ??? Financial resource strain: Not on file ??? Food insecurity Worry: Never true Inability: Never true ??? Transportation needs Medical: No Non-medical: No Tobacco Use ??? Smoking status: Never Smoker ??? Smokeless tobacco: Never Used ??? Tobacco comment: no smokers in household Substance and Sexual Activity ??? Alcohol use: No Frequency: Never Drinks per session: Patient refused Binge frequency: Never ??? Drug use: No ??? Sexual activity: Never Lifestyle ??? Physical activity Days per week: 7 days Minutes per session: 20 min ??? Stress: Not at all Relationships ??? Social connections Talks on phone: More than three times a week Gets together: Three times a week Attends uatsdin service: Never Active member of club or organization: No Attends meetings of clubs or organizations: Never Relationship status: Patient refused ??? Intimate partner violence Fear of current or ex partner: Not on file Emotionally abused: Not on file Physically abused: Not on file Forced sexual activity: Not on file Other Topics Concern ??? Parent/sibling w/ CABG, MT or angioplasty before 65F 55M? Not Asked Social History Narrative ??? Not on file Family History Problem Relation Age of Onset ??? Hypertension Mother ??? Genetic Disorder Father ALS ??? No Known Problems Brother ??? Cancer Paternal Grandfather lung ??? Anesthesia Reaction Other Negative Review of Systems Constitutional: Positive for weight gain. Negative for fever, chills, weight loss, fatigue, decreased appetite, night sweats, recent stressors, height loss, post-operative complications, incisional pain, hallucinations, increased energy, hyperactivity and confused. HENT: Positive for hearing loss. Negative for ear pain, tinnitus, nosebleeds, trouble swallowing, hoarse voice, mouth sores, sore throat, ear discharge, tooth pain, gum tenderness, taste disturbance, smell disturbance, hearing aid, bleeding gums, dry mouth, sinus pain, sinus congestion and neck mass. Eyes: Negative for double vision, pain, redness, eye pain, decreased vision, eye watering, eye bulging, eye dryness, flashing lights, spots, floaters, strabismus, tunnel vision, jaundice and eye irritation. Respiratory: Negative for cough, hemoptysis, sputum production, shortness of breath, wheezing, sleepdisturbances due to breathing, snores loudly, respiratory pain, dyspnea on exertion, cough disturbing sleep and postural dyspnea. Cardiovascular: Negative for chest pain, dyspnea on exertion, palpitations, orthopnea, claudication,leg swelling, fingers/toes turn blue, hypertension, hypotension, syncope, history of heart murmur, chest pain on exertion, chest pain at rest, pacemaker, few scattered varicosities, leg pain, sleep dist urbances due to breathing, tachycardia, light-headedness, exercise intolerance and edema. Gastrointestinal: Negative for heartburn, nausea, vomiting, abdominal pain, diarrhea, constipation, blood in stool, melena, rectal pain, bloating, hemorrhoids, bowel incontinence, jaundice, rectal bleeding, coffee ground emesis and change in stool. Genitourinary: Positive for bladder incontinence, dysuria, urgency, difficulty urinating and nocturia. Negative for hematuria, flank pain, vaginal discharge, genital sores, dyspareunia, decreased libido, voiding less frequently, arousal difficulty, abnormal vaginal bleeding, excessive menstruation, menstrual changes, hot flashes, vaginal dryness and postmenopausal bleeding. Musculoskeletal: Positive for back pain and neck pain. Negative for myalgias, joint swelling, arthralgias, stiffness, muscle cramps, bone pain, muscle weakness and fracture. Skin: Negative for nail changes, itching, poor wound healing, rash, hair changes, skin changes, acne, warts, poor wound healing, scarring, flaky skin, Raynaud's phenomenon, sensitivity to sunlight and skin thickening. Neurological: Positive for headaches. Negative for dizziness, tingling, tremors, speech change, seizures, loss of consciousness, weakness, light-headedness, numbness, disturbances in coordination, memory loss, difficulty walking and paralysis. Endo/Heme: Negative for anemia, swollen glands and bruises/bleeds easily. Psychiatric/Behavioral: Negative for depression, hallucinations, memory loss, decreased concentration, mood swings and panic attacks. Breast: Negative for breast discharge, breast mass, breast pain and nipple retraction. Endocrine: Positive for polyphagia and polydipsia.Negative for altered temperature regulation, unwanted hair growth and change in facial hair. Allergies Allergen Reactions ??? Nkda [No Known Drug Allergies] Current Outpatient Medications Medication ??? Condoms - Female (FC FEMALE CONDOM) MISC ??? etonogestrel (NEXPLANON) 68 MG IMPL ??? Melatonin 10 MG TABS tablet ??? QUEtiapine (SEROQUEL) 300 MG tablet ??? Vitamin D, Cholecalciferol, 25 MCG (1000 UT) CAPS Current Facility-Administered Medications Medication ??? etonogestrel (NEXPLANON) subdermal implant 68 mg GENERAL: healthy, alert and no distress EYES: Eyes grossly normal to inspection, conjunctivae and sclerae normal HENT: normal cephalic/atraumatic. External ears, nose and mouth without ulcers or lesions. RESP: no audible wheeze, cough, or visible cyanosis. No visible retractions or increased work of breathing. Able to speak fully in complete sentences. NEURO: Cranial nerves grossly intact, mentation intact and speech normal PSYCH: mentation appears normal, affect normal/bright, judgement and insight intact, normal speech and appearance well-groomed Urine dip negative PVR 28 mL by bladder scan D DESIGNER documented in this encounter Nursing Notes Lynsey Whitney LPN - 09/17/2020 1:30 PM CST Chief Complaint Patient presents with ??? Nighttime Polyuria Some Urinary Frequency during the daytime as well PVr-28ml Lynsey Whitney LPN D DESIGNER documented in this encounter Plan of Treatment Not on filedocumented as of this encounter Procedures Procedure Name Priority Date/Time Associated Comments Diagnosis URINE MACROSCOPIC Routine 09/17/2020 1:31 PM Urgency-frequency Results for this ONLY BRAND DESIGNER syndrome procedure are i n the results section. OR MEASURE POST-VOID Routine 09/17/2020 Urgency-frequency Re sults for this RESIDUAL syndrome procedure are i n URINE/BLADDER the results CAPACITY, US section. NON-IMAGING documented in this encounter Results UA without Microscopic [[id number]] (09/17/2020 1:31 PM BRAND DESIGNER) [facility] Method Time Signature Color Urine Yellow 09/17/2020 [place] 1:44 PM BRAND DESIGNER [facility] Appearance Urine Clear 09/17/2020 [place] 1:44 PM BRAND DESIGN[facility] Glucose Urine Negative NEG^Negat 09/17/2020 [place] eunice mg/dL 1:44 PM BRAND DESIGNER [facility] Bilirubin Urine Negative NEG^Negat 09/17/2020 [place] eunice 1:44 PM BRAND DESIGN[facility] Ketones Urine Negative NEG^Negat 09/17/2020 [place] eunice mg/dL 1:44 PM BRAND DESIGNER [facility] Specific [place] >1.030 1.003 - 09/17/2020 [place] Urine 1.035 1:44 PM BRAND DESIGNER [facility] Blood Urine Negative NEG^Negat 09/17/2020 [place] eunice 1:44 PM BRAND DESIGNER [facility] pH Urine 6.0 5.0 - 7.0 09/17/2020 [place] pH 1:44 PM BRAND DESIGNER [facility] Protein Albumin Negative NEG^Negat 09/17/2020 [place] Urine eunice mg/dL 1:44 PM BRAND DESIGNER [facility] Urobilinogen 0.2 0.2 - 1.0 09/17/2020 [place] Urine EU/dL 1:44 PM BRAND DESIGNER [facility] Nitrite Urine Negative NEG^Negat 09/17/2020 [place] eunice 1:44 PM BRAND DESIGNER [facility] Leukocyte Negative NEG^Negat 09/17/2020 [place] Esterase Urine eunice 1:44 PM BRAND DESIGNER [facility] Source Midstream 09/17/2020 [place] Urine 1:34 PM BRAND DESIGNER [facility] Specimen (Source) Anatomical Collection Method Collection Time Re ceived Time Location / / Volume Laterality Examination of 09/17/2020 1:31 09/17/2020 1:32 midstream urine PM BRAND DESIGNER PM BRAND DESIGNER specimen (procedure) Eda Duarte MD LAB - URINE ORDERABLES Performing Organization Address City/State/ZIP Code Phon e Number [facility] [address] [place] [phone] [facility] [address] MEASURE POST-VOID RESIDUAL URINE/BLADDER CAPACITY, US NON-IMAGING ([id number]) (09/17/2020) P athologist Signature OR Interval 28ml Eda Duarte MD PROCEDURES documented in this encounter Visit Diagnoses Diagnosis Slow transit constipation - Primary Urgency-frequency syndrome Hypertonicity of bladder Nocturia Snores Other dyspnea and respiratory abnormalit y documented in this encounter Additional Health Concerns Assessment Noted Time PHQ-9 Depression Total Score: 13 06/26/2020 10:[address] documented as of this encounter Care Teams Customer Development Representative Relationship Specialty Start Date End Date Khalida Beyer MD PCP - General Psychiatry 05/28/20 08/22/21 Queta Fritz Assigned PCP 03/04/14 04/12/21 MD Liza [address] [place], [place] [address] Tc Jama MD MD Pediatric Surgery 02/14/[address] [place] [address] Tc Jama MD Assigned Pediatric 05/10/20 09/06/21 [address] JESSE BLUNT Specialist Provider [address] [place], [place] [address] Rosario Noe, Assigned OBGYN Provider 07/21/20 01/16/22 UX CONSULTANT CNM [address] [place], [place] [phone] documented as of this encounter
--- OUTSIDE RECORDS SUMMARY | 2022-04-23 23:40 | XMS_ITS | Encounter Summary ---
:2002 Author Organization [place] Address [address] [place] [address] Care Team Providers Name Role Phone Queta Fritz MD Unavailable [phone] Tc Jama MD Unavailable Tc Jama MD Unavailable Khalida Beyer MD Primary Care Provider Encounter Details Date Type Department Care Team Description 06/29/2020 Travel Social History Tobacco Use Types Packs/Day [...] do you attend religion or Never 2018 mu-ism services? 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 documented as of this encounter Plan of Treatment Not on filedocumented as of this encounter Visit Diagnoses Not on filedocumented in this encounter Additional Health Concerns Assessment Noted Time PHQ-9 Depression Total Score: 13 06/26/2020 10:[address] documented as of this encounter Care Teams Dope Firer Relationship Specialty Start Date End Date Khalida Beyer MD PCP - General Psychiatry 05/28/20 08/22/21 Queta Fritz Assigned PCP 03/04/14 04/12/21 MD Liza [address] [facility] [address] [place], [place] [id number] Tc Jama MD MD Pediatric Surgery 02/14/[address] [place] [address] Tc Jama MD Assigned Pediatric 05/10/20 09/06/21 [facility] BEKAH BLUNT Specialist Provider [address] [place] [address] documented as of this encounter
--- OUTSIDE RECORDS SUMMARY | 2022-04-23 23:40 | XMS_ITS | Encounter Summary ---
:2000 Author Organization [place] Address Formerly [facility] [place] [address] Care Team Providers Name Role Phone Queta Fritz MD Unavailable [phone] Tc Jama MD Unavailable Tc Jama MD Unavailable Khalida Beyer MD Primary Care Provider Reason for Visit Reason Comments Contraception IUD and Nexplanon consult Encounter Details Date Type Department Care Team Description 07/15/2020 Office Visit [facility] Rosario Noe Pre-pr ocedure lab exam (Primary Dx); [facility] E, FRICKERTRON CHECKER CNM Polyuria; [place] [address] Abnormal finding on urinalys is; [address] Insertion of implantable subdermal contr aceptive [place], [place] [address] [address] [place], [place] [phone] (Work) [phone] Social History Tobacco Use Types Packs/Day Years Used Date Never Smoker 0 Smokeless Tobacco: Never Used Tobacco Cessation: Counseling Given: No Comments: no smokers in household Alcohol Use [...] you attend roman catholic or Never 2018 anglican services? Do you belong to any clubs [...] at Date Recorded Female 09/04/2021 9:00 PM AUTOMOTIVE WHOLESALE PARTS ADVISOR COVID-19 Exposure Response Date Recorded In the last month, have you been in contact with No / Unsure 07/15/2020 10:16 AM AUTOMOTIVE WHOLESALE PARTS ADVISOR someone who was confirmed or suspected to have Coronavirus / COVID-19? documented as of this encounter Last Filed Vital Signs Vital Sign Reading Time Taken Comments Blood Pressure 132/72 07/15/2020 10:22 AM AUTOMOTIVE WHOLESALE PARTS ADVISOR Pulse - - Temperature - - Respiratory Rate - - Oxygen Saturation - - Inhaled Oxygen Concentration - - Weight 99.3 kg (219 lb) 07/15/2020 10:22 AM AUTOMOTIVE WHOLESALE PARTS ADVISOR Height - - Body Mass Index 33.15 06/26/2020 8:57 AM AUTOMOTIVE WHOLESALE PARTS ADVISOR Body Mass Index Percentile 96.91 % 07/15/2020 10:[address] Growth Chart: CDC (Girls, 2-20 Years) documented in this encounter Progress Notes Rosario Noe, TERRY VASQUEZM - 07/15/2020 10:15 AM CST Contraceptive Counseling Visit Subjective: Mahi and her mother Eleanor present to clinic for contraceptive counseling and possibleplacement of a LARC. Mahi is sexually active with her boyfriend, Alexandre. She has been taking OCPsbut does not like taking a pill every day. In addition, she dislikes having a heavy period where shehas to wear pads and tampons, and finds cramps to be very disruptive to her quality of life. She does not desire at this time but would like in the future, maybe after we both havejobs. Mahi reports her relationship with Alexandre is supportive, and she has insight into her cognitive differences: We started dating because he's different like me, so that doesn't bother him. Mahi is more interested in a Nexplanon than and IUD because she has a friend who has a Nexplanon. Eleanor is Mahi's legal guardian. She is concerned about Mahi getting and strongly desires effective contraception for Mahi. She agrees that having environmental services floor tech periods and less cramps wouldimprove Mahi's quality of life. Mahi would also like to complete follow up testing for nighttime urinary frequency (wet prep, GC/CT, and UA) while they are in clinic. Objective: BP 132/72 (BP Location: Right arm, Cuff Size: Adult Regular) Wt 99.3 kg (219 lb) LMP 07/10/2020 No BMI 33.15 kg/m?? General: appears stated age, appropriately groomed Psychiatric: cognition / insight below stated age Pelvic: external genitalia WNL, wet prep collected Assessment: -Desires LARC Plan: -Reviewed difference between IUDs and Nexplanon in detail, including insertion procedure, risks, benefits, short-term and long-term effects on menstrual cycles. Mahi and her mother would like a trial of the Nexplanon device, but understand if after a few months Karols cycles have not regulated or if she finds her bleeding pattern intolerable, they may opt for removal and try a Mirena IUD instead. See insertion note below. -Encouraged use of condoms (male or female) for STI prevention -RTC for further counseling as needed, otherwise for routine health maintenance Nexplanon Insertion: Is a test required: Yes. Was it positive or negative? Negative Was a consent obtained? Yes, written consent from Eleanor Krueger, who is Mahi's legal guardian Subjective: Mahi Faye is a 20 year old presents for Nexplanon insertion. Patient has been given the opportunity to ask questions about all forms of control, including all options appropriate for Mahi Faye. Discussed that no method of control, except abstinence is 100% effective against or sexually transmitted infection. Mahi Faye understands she may have the Nexplanon removed at any time and it should be removed by a health care provider. The entire insertion procedure was reviewed with the patient, including care after placement. Patient's last menstrual period was 07/10/2020. Last sexual activity: prior to LMP. No allergy to betadine or shellfish. Recent STD screening HCG Qual Urine Date Value Ref Range Status 05/26/2020 Negative NEG^Negative Final Comment: This test is for screening purposes. Results should be interpreted along with the clinical picture. Confirmation testing is available if warranted by ordering [id number], HCG Quantitative . PROCEDURE NOTE: -- Nexplanon Insertion Reason for Insertion: contraception Patient was placed supine with left arm exposed. Manav was made 8-10 cm above medial epicondyle and aguiding manav 4 cm above the first. Arm was prepped with Betadine. Insertion point was anesthetized with 1% lidocaine. After stretching the skin with thumb and index finger around the insertion site, skin punctured with the tip of the needle inserted at 30 degrees and then lowered to horizontal position. The needle was then advanced to its full length. Applicator was then stabilized and slider was unlocked. Slider was pulled back until it stopped and then removed. Correct placement of the implant was confirmed by palpation in the patient's arm and visualizing thepurple top of the obturator. Bandage and pressure dressing applied to insertion site. Lot # [id number] Exp: 08/05/2022 EBL: minimal Complications: none ASSESSMENT: ICD-10-CM 1. Pre-procedure lab exam Z01.812 HCL HCG, URINE, NURSE BACKOFFICE 2. Polyuria R35.8 Chlamydia trachomatis PCR Neisseria gonorrhoeae PCR Wet prep UA with Microscopic reflex to Culture 3. Abnormal finding on urinalysis R82.90 Chlamydia trachomatis PCR Neisseria gonorrhoeae PCR Wet prep UA with Microscopic reflex to Culture 4. Insertion of implantable subdermal contraceptive Z30.017 etonogestrel (NEXPLANON) 68 MG IMPL etonogestrel (NEXPLANON) subdermal implant 68 mg INSERTION NON-BIODEGRADABLE DRUG DELIVERY IMPLANT PLAN: Given electrical engineer's handouts, including when to have Nexplanon removed, list of danger s/sx, side effects and follow up recommended. Encouraged condom use for prevention of STI. Reviewed that since inserted within 5 days of start of LMP, Nexplanon is effective right away. Advised to call for any fever, for prolonged or severe pain or bleeding, abnormal vaginal dischage. She was advised to use pain medications (ibuprofen) as needed for mild to moderate pain. Rosario Noe APRN CNM MOTIVE WHOLESALE PARTS ADVISOR documented in this encounter Nursing Notes Rubén Stevenson MA - 07/15/2020 10:15 AM CST Chief Complaint Patient presents with ??? Contraception IUD consult Initial BP 132/72 (BP Location: Right arm, Cuff Size: Adult Regular) Wt 99.3 kg (219 lb) LMP 07/10/2020 No BMI 33.15 kg/m?? Estimated body mass index is 33.15 kg/m?? as calculatedfrom the following: Height as of 06/26/20: 1.731 m (5' 8.15). Weight as of this encounter: 99.3 kg (219 lb). BP completed using cuff size: regular Questioned patient about current smoking habits. Pt. has never smoked. Rubén Stevenson MA MOTIVE WHOLESALE PARTS ADVISOR documented in this encounter Plan of Treatment Not on filedocumented as of this encounter Procedures Procedure Name Priority Date/Time Associated Diagnosis Comme nts DC INSERTION DRUG Routine 07/16/2020 3:00 PM Insertion of DELIVERY IMPLANT AUTOMOTIVE WHOLESALE PARTS ADVISOR implantable subdermal contraceptive WET PREPARATION Routine 07/15/2020 11:15 Polyuria Results for this AM AUTOMOTIVE WHOLESALE PARTS ADVISOR Abnormal finding on procedur e are in urinalysis the results section. UA WITH MICROSCOPIC Routine 07/15/2020 10:30 Polyuria Results for this AND REFLEX TO AM AUTOMOTIVE WHOLESALE PARTS ADVISOR Abnormal finding on procedu re are in CULTURE urinalysis the results section. NEISSERIA Routine 07/15/2020 10:30 Polyuria Results for this GONORRHOEAE PCR AM AUTOMOTIVE WHOLESALE PARTS ADVISOR Abnormal finding on proce dure are in urinalysis the results section. CHLAMYDIA Routine 07/15/2020 10:30 Polyuria Results for this TRACHOMATIS PCR AM AUTOMOTIVE WHOLESALE PARTS ADVISOR Abnormal finding on proce dure are in urinalysis the results section. HCL HCG, URINE, Routine 07/15/2020 Pre-procedure lab Results for this NURSE BACKOFFICE exam procedure a re in the results section. documented in this encounter Results (ABNORMAL) Wet prep (07/15/2020 11:15 AM AUTOMOTIVE WHOLESALE PARTS ADVISOR) Component Value Ref Test Analysis Performed At [facility] Range Method Time Signature Specimen Vagina [facility] Description [facility] [place] Wet Prep No Trichomonas 07/15/2020 [facility] seen 12:01 PM CLINICS [facility] Wet Prep Clue cells seen 07/15/2020 [facility] Few 12:01 PM CLINICS (A) [facility] Wet Prep No yeast seen 07/15/2020 [facility] 12:01 PM CLINICS [facility] Wet Prep WBC'S seen 07/15/2020 [facility] Moderate 12:01 PM CLINICS [facility] Specimen Anatomical Collection Method Collection Time Receive d Time (Source) Location / / Volume Laterality Specimen from 07/15/2020 11:15 07/15/2020 vagina AM AUTOMOTIVE WHOLESALE PARTS ADVISOR 11:42 AM AUTOMOTIVE WHOLESALE PARTS ADVISOR (specimen) Queta Fritz MD LAB - MICRO GENERAL ORDERABL ES Performing Organization Address City/State/ZIP Code Phon e Number [facility] [address] [place], [place] [address] [address] (ABNORMAL) UA with Microscopic reflex to Culture (07/15/2020 10:30 AM AUTOMOTIVE WHOLESALE PARTS ADVISOR) [facility] Method Time Signature Color Urine Yellow 07/15/2020 [facility] 10:56 AM [facility] Appearance Urine Clear 07/15/2020 [facility] 10:56 AM CLINICS [facility] Glucose Urine Negative NEG^Negat 07/15/2020 [facility] eunice mg/dL 10:56 AM [facility] Bilirubin Urine Negative NEG^Negat 07/15/2020 [facility] eunice 10:56 AM [facility] Ketones Urine Negative NEG^Negat 07/15/2020 [facility] eunice mg/dL 10:56 AM [facility] Specific [place] 1.025 1.003 - 07/15/2020 [facility] Urine 1.035 10:56 AM CLINICS [facility] pH Urine 6.0 5.0 - 7.0 07/15/2020 [facility] pH 10:56 AM CLINICS [facility] Protein Albumin Negative NEG^Negat 07/15/2020 [facility] Urine eunice mg/dL 10:56 AM CLINICS [facility] Urobilinogen 0.2 0.2 - 1.0 07/15/2020 [facility] Urine EU/dL 10:56 AM CLINICS [facility] Nitrite Urine Negative NEG^Negat 07/15/2020 [facility] eunice 10:56 AM [facility] Blood Urine Trace (A) NEG^Negat 07/15/2020 [facility] eunice 10:56 AM CLINICS [facility] Leukocyte Negative NEG^Negat 07/15/2020 [facility] Esterase Urine eunice 10:56 AM CLINICS [facility] Source Midstream 07/15/2020 [facility] Urine 10:46 AM CLINICS [facility] WBC Urine 0 - 5 OTO5^0 - 07/15/2020 [facility] 5 /HPF 10:56 AM [facility] RBC Urine O - 2 OTO2^O - 07/15/2020 [facility] 2 /HPF 10:56 AM [facility] Squamous Few FEW^Few 07/15/2020 [facility] Epithelial /LPF /LPF 10:56 AM [facility] Urine [facility] Bacteria Urine Few (A) NEG^Negat 07/15/2020 [facility] eunice /HPF 10:56 AM [facility] Specimen (Source) Anatomical Collection Method Collection Time Re ceived Time Location / / Volume Laterality Examination of 07/15/2020 10:30 0 midstream urine AM AUTOMOTIVE WHOLESALE PARTS ADVISOR 10:46 AM AUTOMOTIVE WHOLESALE PARTS ADVISOR specimen (procedure) Queta Fritz MD LAB - URINE ORDERABLES Performing Organization Address [facility] Phon e Number [place] [address] [place], [place] [address] [address] Neisseria gonorrhoeae PCR (07/15/2020 10:30 AM AUTOMOTIVE WHOLESALE PARTS ADVISOR) Analysis Performed At Patho logist Time Signature Specimen Vagina 07/15/2020 [facility] Descrip 10:46 AM [facility] N Gonorrhea Negative NEG^Negati 07/16/2020 INFECTIOUS PCR ve 2:27 PM AUTOMOTIVE WHOLESALE PARTS ADVISOR [facility], [facility] Comment: Negative for N. gonorrhoeae rRNA by cherry scription mediated amplification. A negative result by research support specialist media valdemar amplification does not preclude the presence of N. gonorrhoeae infection because results are dependent on proper and adequate collection, absence of inhibitors, and sufficient rRNA to be detected. Specimen Anatomical Collection Method Collection Time Receive d Time (Source) Location / / Volume Laterality Specimen from 07/15/2020 10:30 07/15/2020 vagina AM AUTOMOTIVE WHOLESALE PARTS ADVISOR 10:45 AM AUTOMOTIVE WHOLESALE PARTS ADVISOR (specimen) Queta Fritz MD LAB - MICRO GENERAL ORDERABL ES Performing Organization Address City/State/ZIP Code Phon e Number INFECTIOUS DISEASES [address] [place] [address] DI[facility]STIC LAB[facility]ORY, [place] [address] [place], [place] [address] [address] Chlamydia trachomatis PCR (07/15/2020 10:30 AM AUTOMOTIVE WHOLESALE PARTS ADVISOR) Patholo gist Method Time Signature Specimen Vagina 07/15/2020 [facility] Description 10:46 AM [facility] Chlamydia Negative NEG^Negat 07/16/2020 INFECTIOUS Trachomatis PCR eunice 2:27 PM AUTOMOTIVE WHOLESALE PARTS ADVISOR [facility], [facility] Comment: Negative for C. trachomatis rRNA by cherry scription mediated amplification. A negative result by research support specialist media valdemar amplification does not preclude the presence of C. trachomatis infection because results are dependent on proper and adequate collection, absence of inhibitors, and sufficient rRNA to be detected. Specimen Anatomical Collection Method Collection Time Receive d Time (Source) Location / / Volume Laterality Specimen from 07/15/2020 10:30 07/15/2020 vagina AM AUTOMOTIVE WHOLESALE PARTS ADVISOR 10:45 AM AUTOMOTIVE WHOLESALE PARTS ADVISOR (specimen) Queta Fritz MD LAB - MICRO GENERAL ORDERABL ES Performing Organization Address City/State/ZIP Code Phon e Number INFECTIOUS DISEASES [address] [place] [address] DIAGNOSTIC LABORATORY, [place] [address] [place], [place] [address] [address] HCL HCG, URINE, NURSE BACKOFFICE (07/15/2020) P athologist Signature hCG, Qual Negative [facility] LAB Specimen (Source) Anatomical Location Collection Method / Collectio n Time Received Time / Laterality Volume 07/15/2020 Rosario Noe APRN CNM LABORATORY Performing Organization Address City/[facility]/ZIP Code Phon e Number [facility] documented in this encounter Visit Diagnoses Diagnosis Pre-procedure lab exam - Primary Pre-procedural laboratory examination Polyuria Abnormal finding on urinalysis Other nonspecific finding on examination of urine Insertion of implantable subdermal contr aceptive documented in this encounter Additional Health Concerns Assessment Noted Time PHQ-9 Depression Total Score: 13 06/26/2020 10:[address] documented as of this encounter Care Teams Sleep Technologist Relationship Specialty Start Date End Date Khalida Beyer MD PCP - General Psychiatry 05/28/20 08/22/21 Queta Fritz Assigned PCP 03/04/14 04/12/21 MD Liza [address] [place] [address] Tc Jama MD MD Pediatric Surgery 02/14/[address] [place] [address] Tc Jama MD Assigned Pediatric 05/10/20 09/06/21 [address]ESSE BLUNT Specialist Provider [address] [place] [address] documented as of this encounter
--- OUTSIDE RECORDS SUMMARY | 2022-04-23 23:40 | XMS_ITS | Encounter Summary ---
:2002 Author Organization [place] Address [address] [place] [address] Care Team Providers Name Role Phone Queta Fritz MD Unavailable [phone] Tc Jama MD Unavailable Tc Jama MD Unavailable Khalida Beyer MD Primary Care Provider Rosario Noe APRN [facility] Unavailable [phone] Eda Duarte MD Unavailable Reason for Referral (Routine) - Closed Specialty Diagnoses / Procedures Referred By Contact Refer red To Contact Diagnoses Urgency-frequency syndrome Snores Nocturia Eda Duarte MD [address] [facility] [address] [place], [place] [address] Referral ID Status Reason Start Date Expiration Date Visits Requ ested Visits Authorized [id number] Closed 12/03/2020 12/03/2021 1 1 Reason for Visit Reason Comments Urinary Frequency Here with bladder diary Encounter Details Date Type Department Care Team Description 12/03/2020 Office Visit [facility] Eda Duarte Urgenc y-frequency syndrome (Primary Dx); Urology Clinic MD Alex Snores; [place] [address] [facility] Slow transit constipation; 305 [facility] 394 [facility] [address] [address] [place], [place] [phone] (Wo rk) [address] [phone] Social History Tobacco Use Types Packs/Day Years [...] or relatives? How often do you attend scientology or Never 2018 judaism services? Do you belong to any clubs or No 12/07/2018 organizations such as scientology groups, unions, fraternal or athletic groups, or [...] place to sleep or slept in a detention (including now)? Education Answer Date Recorded What is the highest level of school you have completed or 10 th grade 12/07/2018 the highest degree you have received? 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 documented as of this encounter Last Filed Vital Signs Vital Sign Reading Time Taken Comments Blood Pressure 122/84 12/03/2020 3:29 PM CDT Pulse - - Temperature - - Respiratory Rate - - Oxygen Saturation - - Inhaled Oxygen Concentration - - Weight 105.2 kg (232 lb) 12/03/2020 3:29 PM CDT Height 172.7 cm (5' 8) 12/03/2020 3:29 PM CDT Body Mass Index 35.28 12/03/2020 3:29 PM CDT Body Mass Index Percentile 97.64 % 12/03/2020 3:29 PM CD T Growth Chart: [facility] (Girls, 2-20 Years) documented in this encounter Patient Instructions Patient InstructionsEda Duarte MD - 12/03/2020 3:45 PM CDT Please do the sleep study Cut down the fluids in the evening Please return to see us afterwards Websites with free information: [place] [employer] patient website: [email or web address] Total Control [...] leaving completely satisfied with your care experience. documented in this encounter Progress Notes Eda Duarte MD - 12/03/2020 3:45 PM CDT Assessment & Plan Urgency-frequency syndrome Discussed intake modification - SLEEP EVALUATION & MANAGEMENT REFERRAL - [facility] Sleep [facility] [phone] (Age 18 and up); Future Snores/Nocturia Needs to be evaluated for SAM - SLEEP EVALUATION & MANAGEMENT REFERRAL - [facility] [phone] (Age 18 and up); Future Slow transit constipation Continue to work on bowel reigmen Return in about 3 months (around 03/05/2021) for in person, using a video visit. 10 minutes were spent in direct patient care Eda Duarte MD [facility] [place] Leonardo Champagne is a 20 year old who presents for the following health issues. HPI She is here today to discuss her voiding diary Bladder diary shows variable volume of measured voids between 250mL and 800mL. The nights that she is having more issues with leakage or bad urgency in the AM is when she is drinking fluids all eveningand all through the night. She states if she doesn't drink in the evening she has bad dry mouth and nausea. She states her primary doctor put in a referral for a weight management program and she also is interested in discussingsleep study given her bad snoring as well. Continues to work on her constipation Objective BP 122/84 Ht 1.727 m (5' 8) Wt 105.2 kg (232 lb) BMI 35.28 kg/m?? Body mass index is 35.28 kg/m??. Physical Exam GENERAL: healthy, alert and no distress EYES: [...] insight intact, normal speech and appearance well-groomed documented in this encounter Nursing Notes Francesca Jurado LPN - 12/03/2020 3:45 PM CDT Chief Complaint Patient presents with ??? 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 Snores Other dyspnea and respiratory abnormalit y Slow transit constipation Nocturia Development delay Unspecified delay in development documented in this encounter Additional Health Concerns Assessment Noted Time PHQ-9 Depression Total Score: 13 06/26/2020 10:[address] documented as of this encounter Care Teams Braille Transcriber Relationship Specialty Start Date End Date Khalida Beyer MD PCP - General Psychiatry 05/28/20 08/22/21 Queta Fritz Assigned PCP 03/04/14 04/12/21 MD Liza [facility] [address] [address] Tc Jama MD MD Pediatric Surgery 02/14/[address] [place] [address] Tc Jama MD Assigned Pediatric 05/10/20 09/06/21 [address] BLUNT Specialist Provider [address] [place] [address] Rosario Noe, Assigned OBGYN Provider 07/21/20 01/16/22 CONSTRUCTION AND MAINTENANCE INSPECTOR CNM [address] [place] [address] Eda Duarte, Assigned Surgical 10/02/20 Provider [address] [facility] [address] [place] [address] documented as of this encounter
--- OUTSIDE RECORDS SUMMARY | 2022-04-23 23:40 | XMS_ITS | Encounter Summary ---
:2000 Author Organization [place] Address [facility]0 [place] [address] Care Team Providers Name Role Phone Queta Fritz MD Unavailable [phone] Tc Jama MD Unavailable Tc Jama MD Unavailable Khalida Beyer MD Primary Care Provider Rosario Noe APRN [facility] Unavailable [phone] Eda Duarte See Alex CORLEY Unavailable Reason for Visit Reason Onset Date Comments Clinic Care Coordination - Follow-up 12/10/2020 Encounter Details Date Type Department Care Team Description 12/10/2020 Telephone [facility] Eda Duarte See Clinic Care Urology Clinic Cami Johnson MD Coordination - [address] Follow-up [address] [facility] [address] [place] [address] [place], [place] [phone] (Wo rk) Social History Tobacco Use Types [...] or relatives? How often do you attend islam or Never 2018 gnosticism services? Do you belong to any clubs or No 12/07/2018 organizations such as islam groups, unions, [employer] or athletic groups, or school groups? 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 documented as of this encounter Miscellaneous Notes Telephone Encounter - Eleanor Flores - 12/10/2020 2:49 PM CDT ----- Message from Jeimy Gonzales sent at 12/10/2020 2:46 PM CDT ----- Return in about 3 months (around 03/05/2021) for in person, using a video visit. CSF documented in this encounter Plan of Treatment Not on filedocumented as of this encounter Visit Diagnoses Not on filedocumented in this encounter Additional Health Concerns Assessment Noted Time PHQ-9 Depression Total Score: 13 06/26/2020 10:[address] documented as of this encounter Care Teams [place] Turner Relationship Specialty Start Date End Date Khalida Beyer MD PCP - General Psychiatry 05/28/20 08/22/21 Queta Fritz Assigned PCP 03/04/14 04/12/21 MD Liza [facility] E JUD[address] [address] Tc Jama MD MD Pediatric Surgery 02/14/20 [facility] [id number] Tc Jama MD Assigned Pediatric 05/10/20 09/06/21 5580 BEKAH BLUNT Specialist Provider [address] [place] [address] Rosario Noe, Assigned OBGYN Provider 07/21/20 01/16/22 ASSEMBLER HYDRAULIC BACKHOE CNM [address] [place] [address] Eda Duarte, Assigned Surgical 10/02/20 Provider [address] [facility] 394 [place] [address] documented as of this encounter
--- OUTSIDE RECORDS SUMMARY | 2022-04-23 23:40 | XMS_ITS | Encounter Summary ---
:2002 Author Organization [place] Address [address] [place] [address] Care Team Providers Name Role Phone Queta Fritz MD Unavailable [phone] Tc Jama MD Unavailable Tc Jama MD Unavailable Khalida Beyer MD Primary Care Provider Rosario Noe APRN CN Unavailable [phone] Encounter Details Date Type Department Care Team Description 09/27/2020 Travel Social History Tobacco Use Types Packs/Day [...] do you attend latter-day or Never 2018 alevism services? Do you belong to any clubs [...] place to sleep or slept in a correction (including now)? Education Answer Date Recorded What is the highest level of school you have completed or 10 th grade 12/07/2018 the highest degree you have received? 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 documented as of this encounter Plan of Treatment Not on filedocumented as of this encounter Visit Diagnoses Not on filedocumented in this encounter Additional Health Concerns Assessment Noted Time PHQ-9 Depression Total Score: 13 06/26/2020 10:[address] documented as of this encounter Care Teams Jet Blade Polisher Relationship Specialty Start Date End Date Khalida Beyer MD PCP - General Psychiatry 05/28/20 08/22/21 Queta Fritz Assigned PCP 03/04/14 04/12/21 MD Liza [address] [facility] 100 [place] [address] Tc Jama MD MD Pediatric Surgery 02/14/20 [address] [place] [address] Tc Jama MD Assigned Pediatric 05/10/20 09/06/21 2450 BEKAH BLUNT Specialist Provider 505 [place] [address] Rosario Noe, Assigned OBGYN Provider 07/21/20 01/16/22 RACECAR DRIVER CNM [address] [place], [place] [id number] documented as of this encounter
--- OUTSIDE RECORDS SUMMARY | 2022-04-23 23:40 | XMS_ITS | Encounter Summary ---
:2000 Author Organization [place] Address [address] [place] [address] Care Team Providers Name Role Phone Queta Fritz MD Unavailable [phone] Tc Jama MD Unavailable Tc Jama MD Unavailable Khalida Beyer MD Primary Care Provider Reason for Visit Reason Onset Date Comments Hospital F/U 06/11/2020 Encounter Details Date Type Department Care Team Description 06/11/2020 Telephone [facility] Christopher Fritz, Hospital F/U Krystle CORLEY [address] BAEZ [address] [place] [address] [place] [address] (Wo rk) Social History Tobacco Use Types [...] or relatives? How often do you attend latter day or Never 2018 episcopal services? Do you belong to any clubs or No 12/07/2018 organizations such as latter day groups, unions, fraternal or athletic groups, or [...] place to sleep or slept in a care home (including now)? Education Answer Date Recorded What is the highest level of school you have completed or 10 th grade 12/07/2018 the highest degree you have received? 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 documented as of this encounter Miscellaneous Notes Telephone Encounter - Cony Herring RN - 06/12/2020 9:55 AM CST Hospital/ED for chronic condition Discharge Protocol Hi, my name is Cony Herring RN, a registered nurse, and I am calling from [facility]. I am calling to follow up and see how things are going after Mahi Faye's recent emergency visit/hospital stay. Tell me how he/she is doing now that they are home? doing well Discharge Instructions Let's review the discharge instructions. What is/are the follow-up recommendations? Response: Follow-up therapist Has an appointment with the primary care provider been scheduled? Yes. (confirm) When your child sees the provider, I would recommend that you bring the medications with you. Medications Tell me what changed about his/her medicines when he/she discharged? Changes to chronic meds? 0-1 What questions do you have about the medications? None Post Discharge Medication Reconciliation Status: discharge medications reconciled, continue medications without change. Was MTM referral placed (*Make sure to put transitions as reason for referral)? No Call Summary What questions or concerns do you have about your child's recent visit and the follow-up care? none If you have questions or things don't continue to improve, we encourage you contact us through the main clinic number (give number). Even if the clinic is not open, triage nurses are available 08/02 tohelp you. We would like you to know that our clinic has extended hours (provide information). We also have urgent care (provide details on closest location and hours/contact info) Thank you for your time and take care! RONMENTAL RESTORATION PLANNER Telephone Encounter - Iris Hargrove RN - 06/11/2020 5:25 PM CST IP F/U Date: 06/06/20 Diagnosis: Mental Health, Suicidal Ideations Is patient active in care coordination? No Was patient in TCU? No Next 5 appointments (look out 90 days) Jun 26, 2020 9:00 AM Well Child with Queta Fritz MD [facility] [address] [facility] [address] RONMENTAL RESTORATION PLANNER documented in this encounter Plan of Treatment Not on filedocumented as of this encounter Visit Diagnoses Not on filedocumented in this encounter Additional Health Concerns Assessment Noted Time PHQ-9 Depression Total Score: 7 11/13/2019 11:26 AM CD T documented as of this encounter Care Teams Restaurant And Bar Manager Relationship Specialty Start Date End Date Khalida Beyer MD PCP - General Psychiatry 05/28/20 08/22/21 Queta Fritz Assigned PCP 03/04/14 04/12/21 MD Liza [address] [facility] 100 [place], [place] [address] Tc Jama MD MD Pediatric Surgery 02/14/20 [address] [place] [id number] Tc Jama MD Assigned Pediatric 05/10/20 09/06/21 [facility] BEKAH BLUNT Specialist Provider [address] [place] [phone] documented as of this encounter
--- OUTSIDE RECORDS SUMMARY | 2022-04-23 23:40 | XMS_ITS | Encounter Summary ---
:2002 Author Organization [place] Address [address] [place] [address] Care Team Providers Name Role Phone Queta Fritz MD Unavailable Tc Jama MD Unavailable Tc Jama MD Unavailable Khalida Beyer MD Primary Care Provider Encounter Details Date Type Department Care Team Description 07/15/2020 Travel Social History Tobacco Use Types Packs/Day [...] do you attend lutheran or Never 2018 catholic services? 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 documented as of this encounter Plan of Treatment Not on filedocumented as of this encounter Visit Diagnoses Not on filedocumented in this encounter Additional Health Concerns Assessment Noted Time PHQ-9 Depression Total Score: 13 06/26/2020 10:[address] documented as of this encounter Care Teams Director Digital Strategy Relationship Specialty Start Date End Date Khalida Beyer MD PCP - General Psychiatry 05/28/20 08/22/21 Queta Fritz Assigned PCP 03/04/14 04/12/21 MD Liza [address] [facility] 100 [place], [place] [phone] Tc Jama MD MD Pediatric Surgery 02/14/20 [address] [place] [phone] Tc Jama MD Assigned Pediatric 05/10/20 09/06/21 [facility] BEKAH BLUNT Specialist Provider [address] [place] [address] documented as of this encounter
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
--- OUTSIDE RECORDS SUMMARY | 2022-04-23 23:40 | XMS_ITS | Encounter Summary ---
:2000 Author Organization [facility] Address [address] [place] [id number] Care Team Providers Name Role Phone Queta Fritz MD Unavailable [phone] Tc Jama MD Unavailable Tc Jama MD Unavailable Khalida Beyer MD Primary Care Provider Rosario Noe APRN CN Unavailable [phone] Reason for Visit Reason Comments Chest Pain Shortness of Breath Covid Concern Encounter Details Date Type Department Care Team Description 09/27/2020 Emergency [facility] Bob Harry [address] [facility] Emergency Dep justin Aden MD coronavirus disease [address] [facility] (COVID-19) [place], [place] [id number] [phone] [address] [place] [address] (Wo rk) Social History Tobacco Use Types [...] or relatives? How often do you attend quaker or Never 2018 moravian services? Do you belong to any clubs or No 12/07/2018 organizations such as quaker groups, unions, fraternal or athletic groups, or [...] place to sleep or slept in a alf (including now)? Education Answer Date Recorded What is the highest level of school you have completed or 10 th grade 12/07/2018 the highest degree you have received? Sex Assigned at Date Recorded Female 09/04/2021 9:00 PM PHYSICAL THERAPIST TECHNICIAN COVID-19 Exposure Response Date Recorded In the last month, have you been in contact with Yes 09/27/2020 11:32 AM PHYSICAL THERAPIST TECHNICIAN someone who was confirmed or suspected to have Coronavirus / COVID-19? documented as of this encounter Last Filed Vital Signs Vital Sign Reading Time Taken Comments Blood Pressure 158/88 09/27/2020 2:00 PM PHYSICAL THERAPIST TECHNICIAN Pulse 106 09/27/2020 11:31 AM PHYSICAL THERAPIST TECHNICIAN Temperature 36.4 ??C (97.6 ??F) 09/27/2020 11:31 AM PHYSICAL THERAPIST TECHNICIAN Respiratory Rate 18 09/27/2020 11:31 AM PHYSICAL THERAPIST TECHNICIAN Oxygen Saturation 96% 09/27/2020 2:00 PM PHYSICAL THERAPIST TECHNICIAN Inhaled Oxygen Concentration - - Weight - - Height - - Body Mass Index - - documented in this encounter Discharge Instructions Discharge InstructionsBob aHrry MD - 09/27/2020 2:09 PM PHYSICAL THERAPIST TECHNICIAN Discharge Instructions COVID-19 COVID-19 is the disease caused by a new coronavirus. The virus spreads from [id number] primarily by droplets when an infected person coughs or sneezes and the droplet either lands on another person or that other person touches a surface with the droplet on it. There are tests available to diagnose COVID-19. There is no specific treatment or medicine for the disease. You may have been diagnosed with COVID, may be being tested for COVID and have a pending test result, or may have been exposed to COVID. Symptoms of COVID-19 Many people have no symptoms or mild symptoms. Symptoms may usually appear 4 to 5 days (up to 14 days) after contact with a person with COVID-19. Some people will get severe symptoms and pneumonia. Usual symptoms are: ? Fever ? Cough ? Trouble breathing Less common symptoms are: Headache, body aches, sore throat, sneezing, diarrhea, loss of taste or smell. Isolation and Quarantine You were seen because you have symptoms, had an exposure, or had some other concern about possible COVID. The best way to stop the spread of the virus is to avoid contact with others. Isolation refers to sick people staying away from people who are not sick. A person in quarantine islimiting activity because they were exposed and are waiting to see if they might become sick. If you test positive for COVID, you should stay home (isolation) for at least 10 days after your symptoms began, and for 24 hours with no fever and improvement of symptoms--whichever is longer. (Your fever should be gone for 24 hours without using fever-reducing medicine). If you have no symptoms, youshould stay home (isolation) for 10 days from the day of the test. For example, if you have a fever and cough for 6 days, you need to stay home 4 more days with no fever for a total of 10 days. Or, if you have a fever and cough for 10 days, you need to stay home one more day with no fever for a total of 11 days. If you have a high-risk exposure to COVID (you spent 15 minutes or more within six feet of somebody who has COVID), you should stay home (quarantine) for 14 days. Even if you test negative for COVID, the CDC recommends a 14-day quarantine from the time of your last exposure to that individual. There are options for a shortened (<14 day quarantine) you can review at: https://www.health.[facility].us/diseases/coronavirus/close.html#long If you have symptoms but a negative test, you should stay at home until you are symptom-free and without fever for 24 hours, using the same judgment you would for when it is safe to return to work/school from strep throat, influenza, or the common cold. If you worsen, you should consider being re-evaluated. If you are being tested for COVID and your test is pending, you should stay home until you know yourtest result. How should I protect myself and others? Do not go to work or school. Have a friend or relative do your shopping. Do not use public transportation (bus, train) or ridesharing (Lyft, Uber). Separate yourself from other people in your home. As much as possible, you should stay in one room and away from other people in your home. Also, use a separate bathroom, if possible. Avoid handling pets or other animals while sick. Wear a facemask if you need to be around other people and cover your mouth and nose with a tissue when you cough or sneeze. Avoid sharing personal household items. You should not share dishes, drinking glasses, forks/knives/spoons, towels, or bedding with other people in your home. After using these items, they should be washed with soap and water. Clean parts of your home that are touched often (doorknobs, faucets, countertops, etc.) daily. Wash your hands often with soap and water for at least 20 seconds or use an alcohol-based hand senior analysis specialist containing at least 60% alcohol. Avoid touching your face. Treat your symptoms. You can take Acetaminophen (Tylenol) to treat body aches and fever as needed for comfort. Ibuprofen (Advil or Motrin) can be used as well if you still have symptoms after taking Tylenol. Drink fluids. Rest. Watch for worsening symptoms such as shortness of breath/difficulty breathing or very severe weakness. Employers/workplaces are being asked by the Centers for Disease Control (CDC) to not request notes/documentation for you to return to work or prove that you were ill. You may choose to show your employer this paperwork. Also, repeat testing should not be required to return to work. Return to the Emergency Department if: If you are developing worsening breathing, shortness of breath, or feel worse you should seek medical attention. If you are uncertain, contact your health care provider/clinic. If you need emergency medical attention, call 911 and tell them you have been ill. ICAL THERAPIST TECHNICIAN documented in this encounter Medications at Time [...] be MISCIndications: Well use with a male adolescent visit with condom abnormal findings etonogestrel 1 each (68 mg) by 0 02/23 (NEXPLANON) 68 MG Subdermal route once IMPLIndications: Insertion of implantable subdermal contraceptive Vitamin D, Take 1 capsule by 90 capsule 3 01/17/2020 021 Cholecalciferol, 25 MCG mouth daily (1000 UT) CAPSIndications: Dietary counseling and surveillance documented as of this encounter ED Notes Maxine Mota RN - 09/27/2020 11:30 AM CST Pt with positive covid test yesterday. C/o increased chest pain and SOB. ABC's intact, alert and oriented x3. Bob Mejia MD - 09/27/2020 11:23 AM CST History Chief Complaint: Chest Pain, Shortness of Breath, and Covid Concern HPI Mahi Faye is a 20 year old female with history of recent Covid-19 diagnosis who presents with chest pain, shortness of breath. The patient states that since testing positive for Covid yesterday she has had increased chest pain and shortness of breath. The patient reports fatigue as well. She denies any fever, nausea, vomiting, diarrhea. She denies any leg pain or swelling. She has no historyof blood clots. The patient has been eating and drinking well. Review of Systems Constitutional: Positive for fatigue. Negative for appetite change and fever. Respiratory: Positive for shortness of breath. Cardiovascular: Positive for chest pain. Negative for leg swelling. Gastrointestinal: Negative for diarrhea, nausea and vomiting. Musculoskeletal: Negative for myalgias. All other systems reviewed and are negative. Allergies: The patient has no known allergies. 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 Learning disability Urgency-frequency syndrome Nocturia Suicidal ideations Pilonidal disease Slow transit constipation generalized anxiety disorder borderline intellectual functioning Developmental delay aggression to others Noninfectious ileitis Past Surgical History: Arthroscopy knee Cystectomy pilonidal Cystourethroscopy with urethral dilation I&D tonsil I&D sacral wound Family History: Hypertension- mother ALS- father Social History: Presents alone Physical Exam Patient Vitals for the past 24 hrs: BP Temp Temp src Pulse Resp SpO2 09/27/20 1400 (!) 158/88 -- -- -- -- 96 % 09/27/20 1131 (!) 166/101 97.6 ??F (36.4 ??C) Temporal 106 18 98 % Physical Exam General: Patient is awake, alert and interactive when I enter the room Head: The scalp, face, and head appear normal CV: Regular rate. S1/S2. No murmurs. Peripheral pulses including radial pulses are symmetric. Resp: Lungs are clear without wheezes or rales. No respiratory distress. GI: Abdomen is soft, no rigidity, guarding, or rebound. No distension. No tenderness to palpation inany quadrant. MS: Chest wall is non tender to palpation. Normal tone. Joints grossly normal without effusions. No asymmetric leg swelling, calf or thigh tenderness. Skin: No rash or lesions noted. Normal capillary refill noted Neuro: Speech is normal and fluent. Face is symmetric. Moving all extremities. Psych: Normal affect. Appropriate interactions. Emergency Department Course ECG: ECG taken at 1404, ECG read at 1415 Normal sinus rhythm moderate voltage criteria for LVH may be normal variant Prolonged QT Abnormal ECG Rate 95 bpm. AR interval 124 ms. QRS duration 110 ms. QT/QTc 382/480 ms. P-R-T axes 23 -7 15. Imaging: Chest XR: Heart size is normal. No pleural effusion, pneumothorax, or abnormal area of consolidation. Reading per radiology Procedures Emergency Department Course: Reviewed: I reviewed nursing notes, vitals, past medical history and care everywhere Assessments: 1340 I obtained history and examined the patient as noted above. 1405 I spoke with the patient's mother regarding patient's presentation, findings, and plan of care. 1410 I returned to check on patient and explained findings, answered all questions prior to discharge. Disposition: The patient was discharged to home. Impression & Plan [facility] Diagnoses: None Medical Decision Making: Mahi Faye is a 20 year old female who presents for evaluation of chest pain and SOB. Patient looks very well today. EKG is reassuring. CXR is negative. Given that the patient is otherwise hemodynamically stable without significant hypoxia, I do not believe that the patient requires admission here today. They are at risk for pneumonia but no signs of this are detected on today's visit. Returnto the ED for high fevers > 103 for more than 48 hours more, increasing productive cough, shortness of breath, or confusion. Low concern for PE. There is no signs of serious bacterial infection suchas bacteremia, meningitis, UTI/pyelonephritis, strep pharyngitis, etc. I discussed my findings and plan with the patient and they are amenable at this time. All questions were answered and patient willbe discharged home in stable condition. Covid-19 Mahi Faye was evaluated during a global COVID-19 pandemic, which necessitated considerationthat the patient might be at risk for infection with the SARS-CoV-2 virus that causes COVID-19. Applicable protocols for evaluation were followed during the patient's care. COVID-19 was considered as part of the patient's evaluation. The plan for testing is: a test was obtained at a previous visit and reviewed & considered today. Diagnosis: ICD-10-CM . 2019 novel coronavirus disease (COVID-19) U07.1 Scribe Disclosure: I, Conchita Mckinney, am serving as a scribe at 1:42 PM on 09/27/2020 to document services personallyperformed by Bob Harry MD based on my observations and the provider's statements to me. Bob Harry MD 09/27/20 1534 ICAL THERAPIST TECHNICIAN documented in this encounter Plan of Treatment Not on filedocumented as of this encounter Procedures Procedure Name Priority Date/Time Associated Diagnosis Comme nts EKG 12-LEAD, STAT 09/27/2020 2:04 PM Results f or this TRACING ONLY PHYSICAL THERAPIST TECHNICIAN procedure are i n the results section. XR CHEST PORT 1 STAT 09/27/2020 1:55 PM Result s for this VIEW PHYSICAL THERAPIST TECHNICIAN procedure are i n the results section. documented in this encounter Results EKG 12-lead, tracing only (09/27/2020 2:04 PM PHYSICAL THERAPIST TECHNICIAN) [facility] gist Method Time Signature Interpretation ECG Click View RADIOLOGY Image link RESULTS to view waveform and result Specimen (Source) Anatomical Collection Method Collection Time Re ceived Time Location / / Volume Laterality 09/27/2020 2:04 PM PHYSICAL THERAPIST TECHNICIAN Bob Harry MD ECG ORDERABLES Performing Organization Address City/State/ZIP Code Phon e Number RADIOLOGY RESULTS XR Chest Port 1 View (09/27/2020 1:55 PM PHYSICAL THERAPIST TECHNICIAN) Anatomical Region Laterality Modality Chest Digital Radiography Specimen (Source) Anatomical Location Collection Method / Collectio n Time Received Time / Laterality Volume Impressions 09/27/2020 2:37 PM PHYSICAL THERAPIST TECHNICIAN IMPRESSION: Heart size is normal. No pleural effusion, pneumothorax, or abnormal area of consolidation. JESSENIA CYR MD Narrative 09/27/2020 2:37 PM PHYSICAL THERAPIST TECHNICIAN CHEST ONE VIEW PORTABLE ??09/27/2020 1:55 PM HISTORY: ??Chest pain and shortness of b reath. COMPARISON: None. Procedure Note Jessenia Cyr MD - 09/27/2020 CHEST ONE VIEW PORTABLE 09/27/2020 1:55 P M HISTORY: Chest pain and shortness of luke ath. COMPARISON: None. IMPRESSION: Heart size is normal. No ple ural effusion, pneumothorax, or abnormal area of consolidation. JESSENIA CYR MD Bob Harry MD IMG DIAGNOSTIC IMAGING ORDERABLES documented in this encounter Visit Diagnoses Diagnosis 2019 novel coronavirus disease (COVID-19 ) documented in this encounter Administered Medications Inactive Administered Medications - up to 3 most recent administrations Medication Order MAR Action Action Date Dose Rate Site acetaminophen (TYLENOL) tablet Given 09/27/2020 1:56 PM PHYSICAL THERAPIST TECHNICIAN 1,00 0 mg 1,000 mg 1,000 mg, Oral, ONCE, On Wed09/27/20 at 1345, For 1 dose, Maximum acetaminophen dose from all sources = 75 mg/kg/day not to exceed 4 gram ibuprofen (ADVIL/MOTRIN) tablet 600 mg Given 09/27/2020 1:56 PM PHYSICAL THERAPIST TECHNICIAN 600 mg 600 mg, Oral, ONCE, On Wed09/27/20 at 1345, For 1 dose, Give with food. ondansetron (ZOFRAN-ODT) ODT tab 4 mg Given 09/27/2020 1:56 PM PHYSICAL THERAPIST TECHNICIAN 4 mg 4 mg, Oral, ONCE, On Wed09/27/20 at 1345, For 1 dose, With dry hands, peel back foil backing and gently remove tablet. Do not push oral disintegrating tablet through foil backing. Administer immediately on tongue and oral disintegrating tablet dissolves in seconds, then swallow with saliva. Liquid not required. documented in this encounter Active and Recently Administered Medications Times are shown in PHYSICAL THERAPIST TECHNICIAN. Scheduled Medication Order 09/25/2020 09/26/2020 09/27/2020 acetaminophen (TYLENOL) tablet 1,000 mg (COMPLETED) 1356 (Given - Provider: Maxine Mcwilliams RN) 1,000 mg, Oral, ONCE, Wed09/27/20 at 134 5, For 1 dose, Maximum acetaminophen dose from all sources = 75 mg/kg/day not to exceed 4 gram ibuprofen (ADVIL/MOTRIN) tablet 600 mg (COMPLETED) 1356 (Given - Provider: Maxine Mcwilliams RN) 600 mg, Oral, ONCE, Wed09/27/20 at 1345, For 1 dose, Give with f ood. ondansetron (ZOFRAN-ODT) ODT tab 4 mg (COMPLETED) 1356 (Given - Provider: Maxine Mcwilliams RN) 4 mg, Oral, ONCE, 09/27/20 at 1345, F or 1 dose, With dry hands, peel back foil backing and gently remove tablet. Do not push oral disintegrating tablet through foil backing. Administer immediately on tongue and oral disintegrating tablet d issolves in seconds, then swallow with saliva. Liquid not required. documented in this encounter Additional Health Concerns Assessment Noted Time PHQ-9 Depression Total Score: 13 06/26/2020 10:[address] documented as of this encounter Care Teams Privacy Specialist Relationship Specialty Start Date End Date Khalida Beyer MD PCP - General Psychiatry 05/28/20 08/22/21 Queta Fritz Assigned PCP 03/04/14 04/12/21 MD [facility] [address] [address] Tc Jama MD MD Pediatric Surgery 02/14/[address] [place] [address] [id number] Tc Jama MD Assigned Pediatric 05/10/20 09/06/21 2552 BEKAH BLUNT Specialist Provider [address] [place] [address] Rosario Noe, Assigned OBGYN Provider 07/21/20 01/16/22 CONTROL INTEGRATION ENGINEER CNM [address] [place] [address] documented as of this encounter
--- OUTSIDE RECORDS SUMMARY | 2022-04-23 23:40 | XMS_ITS | Encounter Summary ---
:2000 Author Organization [facility] Address [address] [place] [address] Care Team Providers Name Role Phone Queta Fritz MD Unavailable [phone] Tc Jama MD Unavailable Tc Jama MD Unavailable Khalida Beyer MD Primary Care Provider Reason for Referral Consultation (Routine) - Closed Specialty Diagnoses / Procedures Referred By Contact Refer red To Contact Urology Diagnoses Polyuria Queta Fritz Ub Urologic Raisa Booker MD [address] [place] [address] [place] [address] Fax: Referral ID Status Reason Start Date Expiration Date Visits Requ ested Visits Authorized [id number] Closed 06/26/2020 06/26/2021 1 1 ED CIRCUIT SCREEN WATCHER Reason for Visit Reason Comments Well Child 20 years old Encounter Details Date Type Department Care Team Description 06/26/2020 Office Visit [facility] Queta Fritz Well adolescent visit with abnormal findings (Primary Dx); Clinic Krystle De Jesus MD Polyuria; [address] Encounter for surveillance of contraceptive pills; [address] Abnormal finding on urinalysis; [place], [place] Moderate ma marleny depression (H); [id number] Borderline intellectual functioning [phone] Social History Tobacco Use Types Packs/Day Years [...] or relatives? How often do you attend sikh or Never 2018 confucianism services? Do you belong to any clubs or No 12/07/2018 organizations such as sikh groups, unions, fraternal or athletic groups, or [...] at Date Recorded Female 09/04/2021 9:00 PM CLOSED CIRCUIT SCREEN WATCHER COVID-19 Exposure Response Date Recorded In the last month, have you been in contact with No / Unsure 07/15/2020 10:16 AM CLOSED CIRCUIT SCREEN WATCHER someone who was confirmed or suspected to have Coronavirus / COVID-19? documented as of this encounter Last Filed Vital Signs Vital Sign Reading Time Taken Comments Blood Pressure 132/76 06/26/2020 8:57 AM CLOSED CIRCUIT SCREEN WATCHER Pulse 102 06/26/2020 8:57 AM CLOSED CIRCUIT SCREEN WATCHER Temperature 37 ??C (98.6 ??F) 06/26/2020 8:57 AM CLOSED CIRCUIT SCREEN WATCHER Respiratory Rate 30 06/26/2020 8:57 AM CLOSED CIRCUIT SCREEN WATCHER Oxygen Saturation 97% 06/26/2020 8:57 AM CLOSED CIRCUIT SCREEN WATCHER Inhaled Oxygen Concentration - - Weight 97.5 kg (215 lb) 06/26/2020 8:57 AM CLOSED CIRCUIT SCREEN WATCHER Height 173.1 cm (5' 8.15) 06/26/2020 8:57 AM CLOSED CIRCUIT SCREEN WATCHER Body Mass Index 32.55 06/26/2020 8:57 AM CLOSED CIRCUIT SCREEN WATCHER Body Mass Index Percentile 96.61 % 06/26/2020 8:57 AM CS T Growth Chart: CDC (Girls, 2-20 Years) documented in this encounter Patient Instructions Patient InstructionsYolie De La Torre MA - 06/26/2020 9:00 AM CST Images from the original note were not included. Oral control is not as effective as an IUD, implant, or Depo Shot. I recommend you see someone very soon to have this taken care of in [facility]. Also use a condom. I have written for female condoms A good weight for you is 160-165. A BMI over 30 put you at risk for lots of problems including complications from Covid 19. Remember that hunger can really be thirst so always drink water is you are hungry and you don't think you should be. Also, know that the hunger will pass the way the feeling that you have to pee will pass. You have a gym wherever you are. Be active every day to the point that you are breathing hard for 30 min our more. Let me know if you need anything for the SS disability application. All the doctors in internal medicine are great. Perhaps Dr Montes or Rehan? FP is also an option. I do not know darian as well. Ask who in the group enjoys caring for adults with intellectual disabilities Patient Education [employer] HANDOUT- PARENT 15 THROUGH 17 YEAR VISITS Here are some suggestions from [employer] experts that may be of value to your family. HOW YOUR FAMILY IS DOING Set aside time to be with your teen and really listen to her hopes and concerns. Support your teen in finding activities that interest him. Encourage your teen to help others in thecommunity. Help your teen find and be a part of positive after-school activities and sports. Support your teen as she figures out ways to deal with stress, solve problems, and make decisions. Help your teen deal with conflict. If you are worried about your living or food situation, talk with us. Community agencies and programs such as SNAP can also provide information. YOUR GROWING AND CHANGING TEEN Make sure your teen visits the dentist at least twice a year. Give your teen a fluoride supplement if the dentist recommends it. Support your teen???s healthy body weight and help him be a healthy eater. Provide healthy foods. Eat together as a family. Be a role model. Help your teen get enough calcium with low-fat or fat-free milk, low-fat yogurt, and cheese. Encourage at least 1 hour of physical activity a day. Praise your teen when she does something well, not just when she looks good. YOUR TEEN???S FEELINGS If you are concerned that your teen is sad, depressed, nervous, irritable, hopeless, or angry, let us know. If you have questions about your teen???s sexual development, you can always talk with us. HEALTHY BEHAVIOR CHOICES Know your teen???s friends and their parents. Be aware of where your teen is and what he is doing atall times. Talk with your teen about your values and your expectations on drinking, drug use, tobacco use, driving, and sex. Praise your teen for healthy decisions about sex, tobacco, alcohol, and other drugs. Be a role model. Know your teen???s friends and their activities together. Lock your liquor in a cabinet. Store prescription medications in a locked cabinet. Be there for your teen when she needs support or help in making healthy decisions about her behavior. SAFETY Encourage safe and responsible driving habits. Lap and shoulder seat belts should be used by everyone. Limit the number of friends in the car and ask your teen to avoid driving at night. Discuss with your teen how to avoid risky situations, who to call if your teen feels unsafe, and what you expect of your teen as a emt driver. Do not tolerate drinking and driving. If it is necessary to keep a gun in your home, store it unloaded and locked with the ammunition locked separately from the gun. Consistent with Bright Futures: Guidelines for Health Supervision of Infants, Children, and Adolescents, 4th Edition For more information, go to https://brightfutures.aap.org. ED CIRCUIT SCREEN WATCHER documented in this encounter Progress Notes Queta Fritz MD - 06/26/2020 9:00 AM CST A SUBJECTIVE: Mahi Faye is a 20 year old female who is well known to me, here for a routine health maintenance visit. Patient was roomed by: ORLANDO Roblero Mahi has a history of history of high functioning Autism with conduct issues associated with Depressionnd has been arguing a lot with Mother and has been to the ED in the last 10 days for Suicidal ideation and hospitalized for this 1 month ago. She is getting the mental health help that she needs according to Mahi and to mother. Seen in UC for urine frequency at night 5 weeks ago and was found to have bacterial vaginosis, Treatment for BV did not help the urinary frequency Well Child Social History Patient accompanied by: Mother Questions or concerns?: No Forms to complete? No Child lives with:: Mother and brother Languages spoken in the home: Georgian Recent family changes/ special stressors?: None noted Safety / Health Risk TB Exposure: No TB exposure Child always wear seatbelt? Yes Helmet worn for bicycle/roller blades/skateboard? Yes Home Safety Survey: Firearms in the home?: No Parents monitor screen use? NO Daily Activities Diet Child gets at least 4 servings fruit or vegetables daily: NO Servings of juice, non-diet soda, punch or sports drinks per day: 2 Sleep Sleep concerns: difficulty falling asleep and restless legs Bedtime: 22:00 Wake time on school day: 09:20 Sleep duration (hours): 10 Does your child have difficulty shutting off thoughts at night?: No Does your child take day time naps?: No Dental Water source: [employer] [facility] Dental provider: patient has a dental home Dental exam in last 6 months: NO Risks: a parent has had a cavity in past 3 years and child has or had a cavity Media TV in child's room: No Types of media used: iPad, computer, video/dvd/tv and computer/ video games Daily use of media (hours): 6 School Name of school: [employer] Grade level: 12th School performance: below grade level Grades: A, B,C Schooling concerns? No Days missed current/ last year: 8 Academic problems: problems in reading, problems in mathematics, problems in writing and learning disabilities Activities Child gets at least 60 minutes per day of active play: NO Activities: rides bike (helmet advised) and other Organized/ Team sports: none Sports physical needed: No Dental visit recommended: Yes Dental varnish declined by parent. Sees primary dentist Cardiac risk assessment: ?? Family history (males <55, females <65) of angina (chest pain), heart attack, heart surgeryfor clogged arteries, or stroke: no ?? Biological parent(s) with a total cholesterol over 240: no Dyslipidemia risk: ?? Diagnosis of diabetes, hypertension, BMI >/= 85th percentile, smoking MenB Vaccine: not indicated. VISION Corrective lenses: No corrective lenses (H Plus Lens Screening required) Tool used: HOTV Right eye: 10/10 (20/20) Left eye: 10/10 (20/20) Two Line Difference: No Visual Acuity: Pass H Plus Lens Screening: Pass Color vision screening: Pass Vision Assessment: normal HEARING Right Ear: 1000 Hz RESPONSE- on Level: 40 db (Conditioning sound) 1000 Hz: RESPONSE- on Level: 20 db 2000 Hz: RESPONSE- on Level: 20 db 4000 Hz: RESPONSE- on Level: 20 db 6000 Hz: RESPONSE- on Level: 20 db Left Ear: 6000 Hz: RESPONSE- on Level: 20 db 4000 Hz: RESPONSE- on Level: 20 db 2000 Hz: RESPONSE- on Level: 20 db 1000 Hz: RESPONSE- on Level: 20 db 500 Hz: RESPONSE- on Level: 25 db Right Ear: 500 Hz: RESPONSE- on Level: 25 db Hearing Acuity: Pass Hearing Assessment: normal PSYCHO-SOCIAL/DEPRESSION General screening: Electronic PSC PSC SCORES 06/26/2020 Inattentive / Hyperactive Symptoms Subtotal 7 (At Risk) Externalizing Symptoms Subtotal 7 (At Risk) Internalizing Symptoms Subtotal 6 (At Risk) PSC - 17 Total Score 20 (Positive) FOLLOWUP RECOMMENDED In therapy but not seen recently not since the hospitalization Has staff at home but this is low. ACTIVITIES: DRUGS Smoking: no Passive smoke exposure: no Alcohol: no Drugs: no SEXUALITY Sexual attraction: opposite sex Sexual activity: yes is on OBCP but misses them some times MENSTRUAL HISTORY Normal PROBLEM LIST Patient Active Problem List Diagnosis ??? Chromosomal [...] intellectual functioning ??? Moderate major depression (H) MEDICATIONS Current Outpatient Medications Medication Sig Dispense Refill ??? Condoms - Female (FC FEMALE CONDOM) MISC Use with every intercourse not to be use with a male condom (Patient not taking: Reported on 07/15/2020) 5 each 11 ??? levonorgestrel-ethinyl estradiol (SEASONALE) 0.15-0.03 MG tablet Take 1 tablet by mouth daily 84tablet 3 ??? Melatonin 10 MG TABS tablet Take 10 mg by mouth nightly as needed for sleep ??? QUEtiapine (SEROQUEL) 300 MG tablet Take 300 mg by mouth At Bedtime ??? Vitamin D, Cholecalciferol, 25 MCG (1000 UT) CAPS Take 1 capsule by mouth daily 90 capsule 3 ??? etonogestrel (NEXPLANON) 68 MG IMPL 1 each (68 mg) by Subdermal route once ALLERGY Allergies Allergen Reactions ??? Nkda [No Known Drug Allergies] IMMUNIZATIONS Immunization History Administered Date(s) Administered ??? Comvax (HIB/HepB) 2002, 2002, 03/26/2003 ? ? DTAP (<7y) 2002, 2002, 2002, 09/24/2003, 03/29/2007 ??? HEPA 03/30/2006, 09/27/2006 ??? HPV 03/11/2015, 05/28/2015, 10/21/2015 ??? Influenza (H1N1) 07/03/2009 ??? Influenza (IIV3) PF 05/22/2008, 06/10/2009, 04/11/2010, 05/04/2011, 05/05/2018 ??? Influenza Intranasal Vaccine 05/03/2012 ??? Influenza Intranasal Vaccine 4 valent 05/05/2013, 05/10/2014, 05/28/2015 ? ? Influenza Vaccine IM > 6 months Valent IIV4 03/30/2016, 04/26/2019, 04/20/2020 ??? MMR 03/26/2003, 03/29/2007 ??? Meningococcal (Menactra??) 01/18/2014, 04/26/2019 ? ? Pneumo Conj 13-V (2010&after) 06/02/2011 ??? Pneumococcal (PCV 7) 2002, 2002, 2002 ??? Poliovirus, inactivated (IPV) 2002, 2002, 2002, 03/29/2007 ??? TDAP Vaccine (Adacel) 01/18/2014 ??? Varicella 03/26/2003, 03/29/2007 HEALTH HISTORY SINCE LAST VISIT Admission for SI last month for 2 days. No surgery, major illness or injury since last physical exam ROS Constitutional, eye, ENT, skin, respiratory, cardiac, GI, MSK, neuro, and allergy are normal except as otherwise noted. OBJECTIVE: EXAM BP 132/76 (BP Location: Left arm, Patient Position: Chair, Cuff Size: Adult Large) Pulse 102 Temp 98.6 ??F (37 ??C) (Oral) Resp 30 Ht 5' 8.15 (1.731 m) Wt 215 lb (97.5 kg) SpO2 97% BMI 32.55 kg/m?? 94 %ile (Z= 1.54) based on CDC (Girls, 2-20 Years) [id number] data based on Stature recorded on06/26/2020. 98 %ile (Z= 2.15) based on [facility] (Girls, 2-20 Years) [id number] data using vitals from 06/26/2020. 97 %ile (Z= 1.83) based on CDC (Girls, 2-20 Years) BMI-for-age based on BMI available as of 06/26/2020. Blood pressure percentiles are not available for patients who are 18 years or older. GENERAL: Active, alert, in no acute distress. She is excitable, with rapid speech at times. Interrupts at times Not respectful of mother. Thought processes are concrete. She is happy and states her concerns clearly SKIN: Clear. No significant rash, abnormal pigmentation or lesions HEAD: Normocephalic EYES: Pupils equal, round, reactive, Extraocular muscles intact. Normal conjunctivae. EARS: Normal canals. Tympanic membranes are normal; presley and translucent. NOSE: Normal without discharge. MOUTH/THROAT: Clear. No oral lesions. Teeth without obvious abnormalities. NECK: Supple, no masses. No thyromegaly. LYMPH NODES: No adenopathy LUNGS: Clear. No rales, rhonchi, wheezing or retractions HEART: Regular rhythm. Normal S1/S2. No murmurs. Normal pulses. ABDOMEN: Soft, non-tender, not distended, no masses or hepatosplenomegaly. Bowel sounds normal. NEUROLOGIC: No focal findings. Cranial nerves grossly intact: DTR's normal. Normal gait, strength and tone BACK: Spine is straight, no scoliosis. EXTREMITIES: Full range of motion, no deformities -F: Normal female external genitalia, Amadeo stage IV. BREASTS: Amadeo stage IV. No abnormalities. Diagnostic Test Results: Labs reviewed in [facility] Results for orders placed or performed in visit on 06/26/20 UA with Microscopic reflex to Culture Status: Abnormal Specimen: Midstream Urine Result Value Ref Range Color Urine Yellow Appearance Urine Slightly Cloudy Glucose Urine Negative NEG^Negative mg/dL Bilirubin Urine Negative NEG^Negative Ketones Urine Negative NEG^Negative mg/dL Specific [place] Urine 1.025 1.003 - 1.035 pH Urine 6.0 5.0 - 7.0 pH Protein Albumin Urine Negative NEG^Negative mg/dL Urobilinogen Urine 0.2 0.2 - 1.0 EU/dL Nitrite Urine Negative NEG^Negative Blood Urine Negative NEG^Negative Leukocyte Esterase Urine Negative NEG^Negative Source Midstream Urine WBC Urine 0 - 5 OTO5^0 - 5 /HPF RBC Urine O - 2 OTO2^O - 2 /HPF Squamous Epithelial /LPF Urine Many (A) FEW^Few /LPF Bacteria Urine Many (A) NEG^Negative /HPF ASSESSMENT/PLAN: ICD-10-CM 1. Well adolescent visit with abnormal findings Z00.121 Condoms - Female (FC FEMALE CONDOM) MISC 2. Polyuria R35.8 UA with Microscopic reflex to Culture UROLOGY ADULT REFERRAL UA with Microscopic reflex to Culture Wet prep Neisseria gonorrhoeae PCR Chlamydia trachomatis PCR OFFICE/OUTPT VISIT,EST,LEVL III 3. Encounter for surveillance of contraceptive pills Z30.41 levonorgestrel- ethinyl estradiol (SEASONALE) 0.15-0.03 MG tablet OFFICE/OUTPT VISIT,EST,LEVL III 4. Abnormal finding on urinalysis R82.90 UA with Microscopic reflex to Culture Wet prep Neisseria gonorrhoeae PCR Chlamydia trachomatis PCR OFFICE/OUTPT VISIT,EST,LEVL III 5. Moderate major depression (H) F32.1 OFFICE/OUTPT VISIT,EST,LEVL III 6. 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 Reviewed, up to date Referrals/Ongoing Specialty care: [facility]. Cleared for sports: Not addressed BMI at 97 %ile (Z= 1.83) based on CDC (Girls, 2-20 Years) BMI-for-age based on BMI available as of 06/26/2020. OBESITY ACTION PLAN ?? Exercise and nutrition counseling performed 5210 ?? 5. 5 servings of fruits or vegetables per day ?? 2. Less than 2 hours of television per day ?? 1. At least 1 hour of active play per day ?? 0. 0 sugary drinks (juice, pop, punch, sports drinks) FOLLOW-UP: ?? in 1 year for a Preventive Care visit with adult medicine doctor ACUTE/CHRONIC PROBLEMS: For the decision to be sexually active: Now that you are sexually active I recommend you consider changing to a form of control that is more effective at preventing (if at this time in your life in unacceptable). These include Depo Provera (which I can prescribe) , IUD or Implanon or similar (which would be obtained through consultation with [facility]) In the mean time be very diligent with the use of OBCP. Start a multivit as you should be on supplemental Folate. You are now at risk for STI: Always use a condom. Go on a blood donation date at the [facility] with your sexual partner to be sure he is free of serious STI. Get tested once a year for STI and with any change in partner. Insist your partner does this as well. For the [place] urinary urgency: Screen for UTI, STI and refer to Urology to discuss. Resources HPV and Cancer Prevention: What Parents Should Know What Kids Should Know About HPV and Cancer Goal Tracker: Be More Active Goal Tracker: Less Screen Time Goal Tracker: Drink More Water Goal Tracker: Eat More Fruits and Veggies [place] Child and Teen Checkups (C&TC) Schedule of Age-Related Screening Standards Queta Fritz MD [facility] ED CIRCUIT SCREEN WATCHER documented in this encounter Plan of Treatment Scheduled Referrals Name Type Priority Associated Diagnoses Order S howard UROLOGY ADULT REFERRAL Referral Routine Polyuria Expec valdemar: 06/26/2021, Expires: 2020 documented as of this encounter Procedures Procedure Name Priority Date/Time Associated Comments Diagnosis UA WITH MICROSCOPIC Routine 06/26/2020 10:07 Polyuria Resu lts for this AND REFLEX TO CULTURE AM CLOSED CIRCUIT SCREEN WATCHER proced ure are in the results section. OR SCREENING TEST, Routine 06/26/2020 9:58 AM PURE TONE, AIR ONLY CLOSED CIRCUIT SCREEN WATCHER documented in this encounter Results (ABNORMAL) Wet prep (07/15/2020 11:15 AM CLOSED CIRCUIT SCREEN WATCHER) Component Value Ref Test Analysis Performed At [facility] gist Range Method Time Signature Specimen Vagina [place] Description [facility] Wet Prep No Trichomonas 07/15/2020 [place] seen 12:01 PM CLINICS [facility] Wet Prep Clue cells seen 07/15/2020 [place] Few 12:01 PM CLINICS (A) [facility] Wet Prep No yeast seen 07/15/2020 [place] 12:01 PM CLINICS [facility] Wet Prep WBC'S seen 07/15/2020 [place] Moderate 12:01 PM [facility] Specimen Anatomical Collection Method Collection Time Receive d Time (Source) Location / / Volume Laterality Specimen from 07/15/2020 11:15 07/15/2020 vagina AM CLOSED CIRCUIT SCREEN WATCHER 11:42 AM CLOSED CIRCUIT SCREEN WATCHER (specimen) Queta Fritz MD LAB - MICRO GENERAL ORDERABL ES Performing Organization Address City/[facility]/ZIP Code Phon e Number [facility] [address], [place] [address] [address] Chlamydia trachomatis PCR (07/15/2020 10:30 AM CLOSED CIRCUIT SCREEN WATCHER) [facility] Method Time Signature Specimen Vagina 07/15/2020 [place] Description 10:46 AM CLOSED CIRCUIT SCREEN WATCHER [facility] Chlamydia Negative NEG^Negat 07/16/2020 INFECTIOUS Trachomatis PCR eunice 2:27 PM CLOSED CIRCUIT SCREEN WATCHER [facility] Comment: Negative for C. trachomatis rRNA by cherry scription mediated amplification. A negative result by reception clerk media valdemar amplification does not preclude the presence of C. trachomatis infection because results are dependent on proper and adequate collection, absence of inhibitors, and sufficient rRNA to be detected. Specimen Anatomical Collection Method Collection Time Receive d Time (Source) Location / / Volume Laterality Specimen from 07/15/2020 10:30 07/15/2020 vagina AM CLOSED CIRCUIT SCREEN WATCHER 10:45 AM CLOSED CIRCUIT SCREEN WATCHER (specimen) Queta Fritz MD LAB - MICRO GENERAL ORDERABL ES Performing Organization Address City/State/ZIP Code Phon e Number INFECTIOUS DISEASES [address] [place] [address] DIAGNOSTIC LABORATORY, [facility] [address], [place] [address] [address] Neisseria gonorrhoeae PCR (07/15/2020 10:30 AM CLOSED CIRCUIT SCREEN WATCHER) Analysis Performed At Path logist Time Signature Specimen Vagina 07/15/2020 [place] Descrip 10:46 AM CLOSED CIRCUIT SCREEN WATCHER [facility] N Gonorrhea Negative NEG^Negati 07/16/2020 INFECTIOUS PCR ve 2:27 PM CLOSED CIRCUIT SCREEN WATCHER [facility] Comment: Negative for N. gonorrhoeae rRNA by cherry scription mediated amplification. A negative result by reception clerk media valdemar amplification does not preclude the presence of N. gonorrhoeae infection because results are dependent on proper and adequate collection, absence of inhibitors, and sufficient rRNA to be detected. Specimen Anatomical Collection Method Collection Time Receive d Time (Source) Location / / Volume Laterality Specimen from 07/15/2020 10:30 07/15/2020 vagina AM CLOSED CIRCUIT SCREEN WATCHER 10:45 AM CLOSED CIRCUIT SCREEN WATCHER (specimen) Queta Fritz MD LAB - MICRO GENERAL ORDERABL ES Performing Organization Address City/State/ZIP Code Phon e Number INFECTIOUS DISEASES [address] [place] [address] DIAGNOSTIC LABORATORY, [place] [address], [place] [address] [address] (ABNORMAL) UA with Microscopic reflex to Culture (07/15/2020 10:30 AM CLOSED CIRCUIT SCREEN WATCHER) Patholo gist Method Time Signature Color Urine Yellow 07/15/2020 [place] 10:56 AM [facility] Appearance Urine Clear 07/15/2020 [place] 10:56 AM [facility] Glucose Urine Negative NEG^Negat 07/15/2020 [place] eunice mg/dL 10:56 AM [facility] Bilirubin Urine Negative NEG^Negat 07/15/2020 [place] eunice 10:56 AM [facility] Ketones Urine Negative NEG^Negat 07/15/2020 [place] eunice mg/dL 10:56 AM [facility] Specific [place] 1.025 1.003 - 07/15/2020 [place] Urine 1.035 10:56 AM [facility] pH Urine 6.0 5.0 - 7.0 07/15/2020 [place] pH 10:56 AM [facility] Protein Albumin Negative NEG^Negat 07/15/2020 [place] Urine eunice mg/dL 10:56 AM [facility] Urobilinogen 0.2 0.2 - 1.0 07/15/2020 [place] Urine EU/dL 10:56 AM [facility] Nitrite Urine Negative NEG^Negat 07/15/2020 [place] eunice 10:56 AM [facility] Blood Urine Trace (A) NEG^Negat 07/15/2020 [place] eunice 10:56 AM [facility] Leukocyte Negative NEG^Negat 07/15/2020 [place] Esterase Urine eunice 10:56 AM [facility] Source Midstream 07/15/2020 [place] Urine 10:46 AM [facility] WBC Urine 0 - 5 OTO5^0 - 07/15/2020 [place] 5 /HPF 10:56 AM [facility] RBC Urine O - 2 OTO2^O - 07/15/2020 [place] 2 /HPF 10:56 AM [facility] Squamous Few FEW^Few 07/15/2020 [place] Epithelial /LPF /LPF 10:56 AM [facility] Urine [facility] Bacteria Urine Few (A) NEG^Negat 07/15/2020 [place] eunice /HPF 10:56 AM [facility] Specimen (Source) Anatomical Collection Method Collection Time Re ceived Time Location / / Volume Laterality Examination of 07/15/2020 10:30 0 midstream urine AM CLOSED CIRCUIT SCREEN WATCHER 10:46 AM CLOSED [facility] SCREEN WATCHER specimen (procedure) Queta Fritz MD LAB - URINE ORDERABLES Performing Organization Address City/State/ZIP Code Phon e Number [facility] [address] [place], [place] [address] [address] (ABNORMAL) UA with Microscopic reflex to Culture (06/26/2020 10:07 AM CLOSED CIRCUIT SCREEN WATCHER) [facility] Method Time Signature Color Urine Yellow 06/26/2020 [place] 10:20 AM [facility] Appearance Urine Slightly 06/26/2020 [place] Cloudy 10:20 AM [facility] Glucose Urine Negative NEG^Negat 06/26/2020 [place] eunice mg/dL 10:20 AM [facility] Bilirubin Urine Negative NEG^Negat 06/26/2020 [place] eunice 10:20 AM [facility] Ketones Urine Negative NEG^Negat 06/26/2020 [place]ice mg/dL 10:20 AM [facility] Specific [place] 1.025 1.003 - 06/26/2020 [place] Urine 1.035 10:20 AM [facility] pH Urine 6.0 5.0 - 7.0 06/26/2020 [place] pH 10:20 AM [facility] Protein Albumin Negative NEG^Negat 06/26/2020 [place] Urine eunice mg/dL 10:20 AM [facility] Urobilinogen 0.2 0.2 - 1.0 06/26/2020 [place] Urine EU/dL 10:20 AM [facility] Nitrite Urine Negative NEG^Negat 06/26/2020 [place] eunice 10:20 AM [facility] Blood Urine Negative NEG^Negat 06/26/2020 [place] eunice 10:20 AM [facility] Leukocyte Negative NEG^Negat 06/26/2020 [place] Esterase Urine eunice 10:20 AM [facility] Source Midstream 06/26/2020 [place] Urine 10:09 AM [facility] WBC Urine 0 - 5 OTO5^0 - 06/26/2020 [place] 5 /HPF 10:20 AM [facility] RBC Urine O - 2 OTO2^O - 06/26/2020 [place] 2 /HPF 10:20 AM [facility] Squamous Many (A) FEW^Few 06/26/2020 [place] Epithelial /LPF /LPF 10:20 AM [facility] Urine [facility] Bacteria Urine Many (A) NEG^Negat 06/26/2020 [place] eunice /HPF 10:20 AM [facility] Specimen (Source) Anatomical Collection Method Collection Time Re ceived Time Location / / Volume Laterality Examination of 06/26/2020 10:07 0 midstream urine AM CLOSED CIRCUIT SCREEN WATCHER 10:08 AM [facility] specimen (procedure) Qutea Fritz MD LAB - URINE ORDERABLES Performing Organization Address City/State/ZIP Code Phon e Number [facility] [address] [place], [place] [address] [address] documented in this encounter Visit Diagnoses Diagnosis Well adolescent visit with abnormal find ings - Primary Polyuria Encounter for surveillance of contracept eunice pills Surveillance of previously prescribed co ntraceptive pill Abnormal finding on urinalysis Other nonspecific finding on examination of urine Moderate major depression (H) Major depressive disorder, single episod e, moderate Borderline intellectual functioning Other psychological or physical stress, not elsewhere classified documented in this encounter Additional Health Concerns Assessment Noted Time PHQ-9 Depression Total Score: 13 06/26/2020 10:[address] documented as of this encounter Care Teams Science Professor Relationship Specialty Start Date End Date Khalida Beyer MD PCP - General Psychiatry 05/28/20 08/22/21 Queta Fritz Assigned PCP 03/04/14 04/12/21 MD Liza [address] [facility] 100 [place], [place] [phone] Tc Jama MD MD Pediatric Surgery 02/14/[address] [place] [id number] Tc Jama MD Assigned Pediatric 05/10/20 09/06/21 [facility] BEKAH BLUNT Specialist Provider [address] [place] [address] documented as of this encounter
--- OUTSIDE RECORDS SUMMARY | 2022-04-23 23:40 | XMS_ITS | Encounter Summary ---
:2002 Author Organization [place] Address [address] [place] [address] Care Team Providers Name Role Phone Queta Fritz MD Unavailable [phone] Tc Jama MD Unavailable Tc Jama MD Unavailable Khalida Beyer MD Primary Care Provider Rosario Noe APRN CN Unavailable [phone] Encounter Details Date Type Department Care Team Description 09/17/2020 Travel Social History Tobacco Use Types Packs/Day [...] or relatives? How often do you attend mu-ism or Never 2018 scientology services? Do you belong to any clubs or No 12/07/2018 organizations such as mu-ism groups, unions, fraternal or athletic groups, or [...] Date Recorded Female 09/04/2021 9:00 PM DIRECTOR TRANSPORTATION COVID-19 Exposure Response Date Recorded In the last month, have you been in contact with No / Unsure 09/17/2020 1:25 PM DIRECTOR TRANSPORTATION someone who was confirmed or suspected to have Coronavirus / COVID-19? documented as of this encounter Plan of Treatment Not on filedocumented as of this encounter Visit Diagnoses Not on filedocumented in this encounter Additional Health Concerns Assessment Noted Time PHQ-9 Depression Total Score: 13 06/26/2020 10:[address] documented as of this encounter Care Teams Research And Insights Executive Relationship Specialty Start Date End Date Khalida Beyer MD PCP - General Psychiatry 05/28/20 08/22/21 Queta Fritz Assigned PCP 03/04/14 04/12/21 MD Liza [address] [facility] 100 [place] [address] Tc Jaam MD MD Pediatric Surgery 02/14/[address] [place] [address] Tc Jama MD Assigned Pediatric 05/10/20 09/06/21 [address] BEKAH BLUNT Specialist Provider 505 [place] [address] Rosraio Noe, Assigned OBGYN Provider 07/21/20 01/16/22 REFERRAL MANAGER CNM [address] [place], [place] [id number] documented as of this encounter
--- OUTSIDE RECORDS SUMMARY | 2022-04-23 23:40 | XMS_ITS | Encounter Summary ---
:2002 Author Organization [place] Address [address] [place] [address] Care Team Providers Name Role Phone Queta Fritz MD Unavailable [phone] Tc Jama MD Unavailable Tc Jama MD Unavailable Khalida Beyer MD Primary Care Provider Reason for Visit Reason Onset Date Comments Pt. Information/instruction 06/28/2020 Encounter Details Date Type Department Care Team Description 06/28/2020 Telephone [facility] Queta Fritz Pt. Clinic Krystle De Jesus MD Information/instructio [address] [place], [place] [address] [place], [place] [address] (Wo rk) Social History Tobacco Use Types [...] do you attend presybeterian or Never 2018 latter-day services? Do you belong to any clubs or No 12/07/2018 organizations such as presybeterian groups, unions, fraternal or athletic groups, or [...] place to sleep or slept in a mcfp (including now)? Education Answer Date Recorded What is the highest level of school you have completed or 10 th grade 12/07/2018 the highest degree you have received? Sex Assigned at Date Recorded Female 09/04/2021 9:00 PM LEASING ASSOCIATE COVID-19 Exposure Response Date Recorded In the last month, have you been in contact with No / Unsure 06/26/2020 8:46 AM LEASING ASSOCIATE someone who was confirmed or suspected to have Coronavirus / COVID-19? documented as of this encounter Miscellaneous Notes Telephone Encounter - Usha Mckeon RN - 06/28/2020 10:41 AM CST Called mom and relayed below information. Mom stated that they have an appointment on at [facility] will do the labs on that day. ING ASSOCIATE Telephone Encounter - Queta Fritz MD - 06/28/2020 8:01 AM LEASING ASSOCIATE Please call and speak to guardian mother. See result notes. The first step is to complete the labs as I ordered. If the answer is not found for the nighttime urinary frequency then it is time to see the urologist. ING ASSOCIATE documented in this encounter Plan of Treatment Not on filedocumented as of this encounter Visit Diagnoses Not on filedocumented in this encounter Additional Health Concerns Assessment Noted Time PHQ-9 Depression Total Score: 13 06/26/2020 10:[address] documented as of this encounter Care Teams Medical Physiologist Relationship Specialty Start Date End Date Khalida Beyer MD PCP - General Psychiatry 05/28/20 08/22/21 Queta Fritz Assigned PCP 03/04/14 04/12/21 MD Liza [facility] [address] [address] Tc Jama MD MD Pediatric Surgery 02/14/[address] [place] [id number] Tc Jama MD Assigned Pediatric 05/10/20 09/06/21 4475 BEKAH BLUNT Specialist Provider [address] [place] [address] documented as of this encounter
--- OUTSIDE RECORDS SUMMARY | 2022-04-23 23:40 | XMS_ITS | Encounter Summary ---
:2002 Author Organization [place] Address [address] [facility] [place] [address] Care Team Providers Name Role Phone Queta Fritz MD Unavailable [phone] Tc Jama MD Unavailable Tc Jama MD Unavailable Khalida Beyer MD Primary Care Provider Rosario Noe APRN CN Unavailable [phone] Reason for Visit Reason Onset Date Comments Call Back 09/17/2020 Regarding info for a ppt Encounter Details Date Type Department Care Team Description 09/17/2020 Telephone [facility] Eda Duarte See Call B ack (Regarding [facility] MD Alex info for appt) [address], 3rd [facility] [address], ER[address] [facility] Professional [address] [place] [address] [place] [address] Social History Tobacco Use Types Packs/Day Years [...] do you attend cheondoism or Never 2018 scientology services? Do you [...] at Date Recorded Female 09/04/2021 9:00 PM ALTERATIONS SUPERVISOR COVID-19 Exposure Response Date Recorded In the last month, have you been in contact with No / Unsure 09/17/2020 1:25 PM ALTERATIONS SUPERVISOR someone who was confirmed or suspected to have Coronavirus / COVID-19? documented as of this encounter Miscellaneous Notes Telephone Encounter - Eda Bhatti RN - 09/24/2020 12:22 PM CST Have been trying to reach Eleanor to follow-up on this message but have not been able to connect with her. Mahi is scheduled to see Dr. Duarte again next week 10/01. Dennis Bhatti RN RATIONS SUPERVISOR Telephone Encounter - Eda Bhatti RN - 09/17/2020 2:21 PM CST Returned call to Eleanor. Left message requesting call back. Dennis Bhatti RN RATIONS SUPERVISOR Telephone Encounter - Chidi Rodriges - 09/17/2020 1:36 PM CST [facility] Phone Message May a detailed message be left on voicemail: yes Reason for Call: Other: Pt's mother calling hoping to speak with 's nurse to provide a few pieces of information for pt's appt today. Action Taken: Other: uro Travel Screening: Not Applicable RATIONS SUPERVISOR documented in this encounter Plan of Treatment Not on filedocumented as of this encounter Visit Diagnoses Not on filedocumented in this encounter Additional Health Concerns Assessment Noted Time PHQ-9 Depression Total Score: 13 06/26/2020 10:[address] documented as of this encounter Care Teams Office Nurse Practitioner Relationship Specialty Start Date End Date Khalida Beyer MD PCP - General Psychiatry 05/28/20 08/22/21 Queta Fritz Assigned PCP 03/04/14 04/12/21 MD Liza [address] [facility] 100 [place] [address] Tc Jama MD MD Pediatric Surgery 02/14/20 [address] [place] [address] Tc Jama MD Assigned Pediatric 05/10/20 09/06/21 [address] BEKAH BLUNT Specialist Provider 505 [place] [address] Rosario Noe, Assigned OBGYN Provider 07/21/20 01/16/22 PHYSICIAN OFFICE SECRETARY CNM [address] [place], [place] [phone] documented as of this encounter
--- OUTSIDE RECORDS SUMMARY | 2022-04-23 23:40 | XMS_ITS | Encounter Summary ---
:2002 Author Organization [facility] Address [address] [place] [address] Care Team Providers Name Role Phone Queta Fritz MD Unavailable [phone] Tc Jama MD Unavailable Tc Jama MD Unavailable Khalida Beyer MD Primary Care Provider Rosario Noe APRN CN Unavailable [phone] Eda Duarte MD Unavailable Encounter Details Date Type Department Care Team Description 12/03/2020 Travel Social History Tobacco Use Types Packs/Day [...] do you attend latter-day or Never 2018 gnosticist services? Do you [...] at Date Recorded Female 09/04/2021 9:00 PM LINE DIRECTOR COVID-19 Exposure Response Date Recorded In [...] documented as of this encounter Care Teams Generalist Relationship Specialty Start Date End Date Khalida Beyer MD PCP - General Psychiatry 05/28/20 08/22/21 Queta Fritz Assigned PCP 03/04/14 04/12/21 MD Liza [address] [facility] 100 [place], [place] [phone] Tc Jama MD MD Pediatric Surgery 02/14/20 [facility] [place] [id number] Tc Jama MD Assigned Pediatric 05/10/20 09/06/21 [address]50 BEKAH BLUNT Specialist Provider 505 [place] [address] Rosario Noe, Assigned OBGYN Provider 07/21/20 01/16/22 AUTOMATIC DIE CUTTING MACHINE OPERATOR CNM [address] [place], [place] [phone] Eda Duarte, Assigned Surgical 10/02/20 Provider [address] [facility] 394 [place] [address] documented as of this encounter
--- OUTSIDE RECORDS SUMMARY | 2022-04-23 23:40 | XMS_ITS | Encounter Summary ---
:2002 Author Organization [place] Address [address] [place] [address] Care Team Providers Name Role Phone Queta Fritz MD Unavailable [phone] Tc Jama MD Unavailable Tc Jama MD Unavailable Khalida Beyer MD Primary Care Provider Rosario Noe APRN CNM Unavailable [phone] Eda Duarte MD Unavailable Mike [place] MD Unavailable [phone] Navid Paige MD Unavailable Norma Ruggiero APRN TIRE STRIPPER Unavailable [phone] Queta Fritz MD Unavailable [phone] Norma Ruggiero BOILER PLANT WORKER TIRE STRIPPER Unavailable [phone] No Ref-Primary, Physician Primary Care Provider [phone] Alber Estrada PA-C Unavailable [phone] Reason for Visit Reason Onset Date Comments Appointment 06/27/2020 Referral to Urology Encounter Details Date Type Department Care Team Description 06/27/2020 Telephone [facility] Urology Unknown Ap pointment (Referral to Clinic [place] [facility]) [address] [facility] [address] [place] [address] Social History Tobacco Use Types Packs/Day Years [...] or relatives? How often do you attend yarsanism or Never 2018 advent services? Do you belong to any clubs or No 12/07/2018 organizations such as yarsanism groups, unions, fraternal or athletic groups, or [...] at Date Recorded Female 09/04/2021 9:00 PM WASHATERIA ATTENDANT COVID-19 Exposure Response Date Recorded In the last month, have you been in contact with No / Unsure 06/29/2020 9:26 PM WASHATERIA ATTENDANT someone who was confirmed or suspected to have Coronavirus / COVID-19? documented as of this encounter Miscellaneous Notes Telephone Encounter - Liv Madison - 06/27/2020 11:30 AM CST [facility] Call Center Phone Message May a detailed message be left on voicemail: yes Reason for Call: Appointment Intake Referring Provider Name: Queta Fritz MD in [place] [facility] Diagnosis and/or Symptoms: Nighttime polyuria Spoke with patient and stated Dr. Fritz informed her to have this be in person. Please advise and contact pt's mother, Eleanor at [phone]. Referral/recs are in system. Thanks! Action Taken: Message routed to: Other: [facility] [place] Travel Screening: Not Applicable ATERIA ATTENDANT documented in this encounter Plan of Treatment Not on filedocumented as of this encounter Visit Diagnoses Not on filedocumented in this encounter Additional Health Concerns Infection Onset Date Last Indicated Resolved Time Rule Out COVID-19 08/23/2021 08/23/2021 08/23/2021 9:1 7 PM WASHATERIA ATTENDANT Rule Out COVID-19 04/21/2022 04/21/2022 04/21/2022 8:5 7 PM CDT Assessment Noted Time PHQ-9 Depression Total Score: 13 06/26/2020 10:[address] documented as of this encounter Care Teams Postal Service Window Clerk Relationship Specialty Start Date End Date Khalida Beyer MD PCP - General Psychiatry 05/28/20 08/22/21 No Ref-Primary, PCP - General 08/23/21 Physician Queta Fritz Assigned PCP 03/04/14 04/12/21 MD Liza [address] [facility] 100 [place] [address] Tc Jama MD Pediatric Surgery 02/14/[address] [address] Tc Jama, Assigned Pediatric 05/10/20 MD Specialist Provider [address] [place] [address] Rosario Noe, Assigned OBGYN Provider 07/21/20 01/16/22 BOILER PLANT WORKER CNM [address] [place] [address] Eda Duarte Assigned Surgical Provider 10/02/20 MD Alex [address] [facility] 394 [place] [address] Mike [place] Assigned Sleep Provider 01/31/21 MD Navid [address] [place] [address] Navid Paige MD Assigned Musculoskeletal 03/16/21 [address] [facility] [place] [address] Norma Ruggiero, Assigned PCP 04/13/21 05/24/21 BOILER PLANT WORKER TIRE STRIPPER [address] 505 [place] [address] Queta Fritz Assigned PCP 05/25/21 07/26/21 MD Liza [address] [facility] [address] [place] [address] Norma Ruggiero, Assigned PCP 07/27/21 09/06/21 BOILER PLANT WORKER TIRE STRIPPER [address] [place] [address] Alber Estrada Assigned PCP 09/07/21 KARIN Lagunas [address] [place] [address] documented as of this encounter
--- OUTSIDE RECORDS SUMMARY | 2022-04-23 23:40 | XMS_ITS | Encounter Summary ---
:2002 Author Organization [place] Address [address] [place] [address] Care Team Providers Name Role Phone Queta Fritz MD Unavailable [phone] Tc Jama MD Unavailable Tc Jama MD Unavailable Khalida Beyer MD Primary Care Provider Encounter Details Date Type Department Care Team Description 06/07/2020 Travel Social History Tobacco Use Types Packs/Day [...] do you attend holiness or Never 2018 baptist services? Do you belong to any clubs [...] at Date Recorded Female 09/04/2021 9:00 PM CUSTOM FEED MILL OPERATOR COVID-19 Exposure Response Date Recorded In the last month, have you been in contact with No / Unsure 06/07/2020 11:55 AM CUSTOM FEED MILL OPERATOR someone who was confirmed or suspected to have Coronavirus / COVID-19? documented as of this encounter Plan of Treatment Not on filedocumented as of this encounter Visit Diagnoses Not on filedocumented in this encounter Additional Health Concerns Infection Onset Date Last Indicated Resolved Time Rule Out COVID-19 06/07/2020 06/07/2020 06/08/2020 7:3 4 PM CUSTOM FEED MILL OPERATOR Assessment Noted Time PHQ-9 Depression Total Score: 7 11/13/2019 11:26 AM CD T documented as of this encounter Care Teams Trouble Tracer Relationship Specialty Start Date End Date Khalida Beyer MD PCP - General Psychiatry 05/28/20 08/22/21 Queta Fritz Assigned PCP 03/04/14 04/12/21 MD Liza [facility] [address] [address] Tc Jama MD MD Pediatric Surgery 02/14/[address] [address] Tc Jama MD Assigned Pediatric 05/10/20 09/06/21 2450 BEKAH BLUNT Specialist Provider [address] [place] [address] documented as of this encounter
--- OUTSIDE RECORDS SUMMARY | 2022-04-23 23:40 | XMS_ITS | Encounter Summary ---
:2002 Author Organization [place] Address [address] [place] [address] Care Team Providers Name Role Phone Queta Fritz MD Unavailable [phone] Tc Jama MD Unavailable Tc Jama MD Unavailable Khalida Beyer MD Primary Care Provider Encounter Details Date Type Department Care Team Description 06/26/2020 Travel Social History Tobacco Use Types Packs/Day [...] or relatives? How often do you attend yarsani or Never 2018 gnosticist services? Do you belong to any clubs or No 12/07/2018 organizations such as yarsani groups, unions, fraternal or athletic groups, or [...] at Date Recorded Female 09/04/2021 9:00 PM CINEMA OR THEATRE MANAGER COVID-19 Exposure Response Date Recorded In the last month, have you been in contact with No / Unsure 06/26/2020 8:46 AM CINEMA OR THEATRE MANAGER someone who was confirmed or suspected to have Coronavirus / COVID-19? documented as of this encounter Plan of Treatment Not on filedocumented as of this encounter Visit Diagnoses Not on filedocumented in this encounter Additional Health Concerns Assessment Noted Time PHQ-9 Depression Total Score: 13 06/26/2020 10:[address] documented as of this encounter Care Teams Flight Control Specialist Relationship Specialty Start Date End Date Khalida Beyer MD PCP - General Psychiatry 05/28/20 08/22/21 Queta Fritz Assigned PCP 03/04/14 04/12/21 MD Liza [address] [facility] 100 [place], [place] [phone] Tc Jama MD MD Pediatric Surgery 02/14/20 [address] [place] [address] Tc Jama MD Assigned Pediatric 05/10/20 09/06/21 [facility] BEKAH BLUNT Specialist Provider [address] [place] [address] documented as of this encounter
--- OUTSIDE RECORDS SUMMARY | 2022-04-23 23:40 | XMS_ITS | Encounter Summary ---
:2002 Author Organization [facility] Address [address] [place] [address] Care Team Providers Name Role Phone Queta Fritz MD Unavailable [phone] Tc Jama MD Unavailable Tc Jama MD Unavailable Khalida Beyer MD Primary Care Provider Rosario Noe APRN CN Unavailable [phone] Encounter Details Date Type Department Care Team Description 09/25/2020 Travel Social History Tobacco Use Types Packs/Day [...] or relatives? How often do you attend zoroastrian or Never 2018 caodaism services? Do you belong to any clubs or No 12/07/2018 organizations such as zoroastrian groups, unions, fraternal or athletic groups, or [...] at Date Recorded Female 09/04/2021 9:00 PM DEPLOYMENT TECHNICIAN COVID-19 Exposure Response Date Recorded In the last month, have you been in contact with No / Unsure 09/25/2020 12:55 PM DEPLOYMENT TECHNICIAN someone who was confirmed or suspected to have Coronavirus / COVID-19? documented as of this encounter Plan of Treatment Not on filedocumented as of this encounter Visit Diagnoses Not on filedocumented in this encounter Additional Health Concerns Assessment Noted Time PHQ-9 Depression Total Score: 13 06/26/2020 10:[address] documented as of this encounter Care Teams Rail Tractor Operator Relationship Specialty Start Date End Date Khalida Beyer MD PCP - General Psychiatry 05/28/20 08/22/21 Queta Fritz Assigned PCP 03/04/14 04/12/21 MD Liza [address] [facility] 100 [place] [address] Tc Jama MD MD Pediatric Surgery 02/14/20 [address] [place] [address] Tc Jama MD Assigned Pediatric 05/10/20 09/06/21 2450 BEKAH BLUNT Specialist Provider 505 [place] [address] Rosario Noe, Assigned OBGYN Provider 07/21/20 01/16/22 MANAGER CANCER CNM [address] [place], [place] [phone] documented as of this encounter
--- OUTSIDE RECORDS SUMMARY | 2022-04-23 23:40 | XMS_ITS | Encounter Summary ---
:2002 Author Organization [facility] Address [address] [place] [address] Care Team Providers Name Role Phone Queta Fritz MD Unavailable [phone] Tc Jama MD Unavailable Tc Jama MD Unavailable Khalida Beyer MD Primary Care Provider Reason for Visit Reason Comments Abdominal Pain Encounter Details Date Type Department Care Team Description 06/29/2020 - Emergency [facility] Cash Mckee Acute abdominal pain; 06/30/2020 [facility] Emergency KARIN Huerta Pharyngitis Dept [facility] [address] [place], [place] [address] [place] [id number] [place] [address] [place] [address] (Wo rk) Social History Tobacco Use Types [...] or relatives? How often do you attend muslim or Never 2018 alevism services? Do you belong to any clubs or No 12/07/2018 organizations such as muslim groups, unions, fraternal or athletic groups, or [...] at Date Recorded Female 09/04/2021 9:00 PM CONSUMER LENDING MANAGER COVID-19 Exposure Response Date Recorded In the last month, have you been in contact with No / Unsure 06/29/2020 9:26 PM CONSUMER LENDING MANAGER someone who was confirmed or suspected to have Coronavirus / COVID-19? documented as of this encounter Last Filed Vital Signs Vital Sign Reading Time Taken Comments Blood Pressure 145/90 06/29/2020 11:00 PM CONSUMER LENDING MANAGER Pulse 106 06/29/2020 11:00 PM CONSUMER LENDING MANAGER Temperature 37.4 ??C (99.4 ??F) 06/29/2020 9:33 PM CONSUMER LENDING MANAGER Respiratory Rate 18 06/29/2020 9:33 PM CONSUMER LENDING MANAGER Oxygen Saturation 93% 06/29/2020 11:15 PM CONSUMER LENDING MANAGER Inhaled Oxygen Concentration - - Weight 97.5 kg (215 lb) 06/29/2020 9:33 PM CONSUMER LENDING MANAGER Height - - Body Mass Index 32.55 06/26/2020 8:57 AM CONSUMER LENDING MANAGER Body Mass Index Percentile 96.60 % 06/29/2020 9:33 PM CS T Growth Chart: [facility] (Girls, 2-20 Years) documented in this encounter Discharge Instructions AttachmentsThe following attachments cannot be sent through Care Everywhere.Sore Throats, Self-Care for (Gambian)Abdominal Pain, Unknown Cause, (Female) (Gambian)documented in this encounter Medications at Time of Discharge Medication Sig Dispensed Refills Start Date End Date Melatonin 10 MG TABS Take 10 mg by mouth 0 tablet nightly as needed for sleep QUEtiapine (SEROQUEL) Take 300 mg by mouth 0 300 MG tablet At Bedtime famotidine (PEPCID) 20 Take 1 tablet (20 mg) 14 tablet 0 07/06/2020 MG tablet by mouth 2 times daily for 7 days ondansetron (ZOFRAN Take 1 tablet (4 mg) 10 tablet 0 201907/02/2020 ODT) 4 MG ODT tab by mouth every 8 hours as needed for nausea sucralfate (CARAFATE) 1 Take 1 tablet (1 g) 20 tablet 0 06/202007/04/2020 GM tablet by mouth 4 times daily for 5 days Crush and mix with water into a slurry. Condoms - Female (FC Use with every 5 each 11 06/26/2020 09/05/2021 FEMALE CONDOM) intercourse not to be MISCIndications: Well use with a male adolescent visit with condom abnormal findings levonorgestrel-ethinyl Take 1 tablet by 84 tablet 3 020 09/25/2020 estradiol (SEASONALE) mouth daily 0.15-0.03 MG tabletIndications: Encounter for surveillance of contraceptive pills Vitamin D, Take 1 capsule by 90 capsule 3 01/17/2020 021 Cholecalciferol, 25 MCG mouth daily (1000 UT) CAPSIndications: Dietary counseling and surveillance documented as of this encounter ED Notes Jocy Alexander RN - 06/29/2020 9:32 PM CST Pt here with mom. Pt here with c/o abd pain for past few hours. States she was dx with strep 06/07, but mom states they did not do the correct dosage of antibiotics, (i.e. only did one tablet BID instead of two tablets BID for 10 days). Pt states this feels different. No n/v/d or dysuria. On control. No abd surgeries in past. ABC intact. A&O x4. UMER LENDING MANAGER Cash Mckee PA-C - 06/29/2020 9:25 PM CST History Chief Complaint: Abdominal Pain HPI Mahi Faye is a 20 year old female who presents with abdominal pain. A few hours prior, the patient developed a sudden onset of right upper quadrant and epigastric abdominal pain. She says initially the pain was intermittent, however, arriving to the ED, the pain has been constant. During evaluation, she reports moving and breathing exacerbated her pain. She further notes a decrease in eatingand drinking due to eating also worsening pain. The patient notes she was diagnosed for strep on 06/07/2020, however, she has been taking only half the dosage for the antibiotic treatment of 10 days. The patient denies fever, chills, diaphoresis, emesis, diarrhea, nausea, dysuria, hematuria, and urinary issues. She notes rhinorrhea and pharyngitis but attributes the symptoms to her seasonal allergies. 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 HENT: Negative for congestion, rhinorrhea and sore throat. Gastrointestinal: Positive for abdominal pain. Negative for nausea and vomiting. Genitourinary: Negative. Negative for dysuria and hematuria. All other systems reviewed and are negative. Physical Exam Patient Vitals for the past 24 hrs: BP Temp Temp src Pulse Resp SpO2 Weight 06/29/20 2133 139/70 99.4 ??F (37.4 ??C) Oral 124 18 99 % 97.5 kg (215 lb) Physical Exam Vitals signs and nursing note reviewed. Constitutional: General: She is not in acute distress. Appearance: She is not diaphoretic. HENT: Head: Normocephalic and atraumatic. Mouth/Throat: Mouth: Mucous membranes are moist. Pharynx: No pharyngeal swelling or oropharyngeal exudate. Eyes: General: No scleral icterus. Cardiovascular: Rate and Rhythm: Regular rhythm. Tachycardia present. Pulses: Normal pulses. Heart sounds: Normal heart sounds. Pulmonary: Effort: Pulmonary effort is normal. No respiratory distress. Breath sounds: Normal breath sounds. Abdominal: General: There is no distension. Palpations: Abdomen is soft. Tenderness: There is no abdominal tenderness. There is no right CVA tenderness, left CVA tenderness, guarding or rebound. Negative signs include Srinivasan's sign. Musculoskeletal: General: No tenderness. Skin: General: Skin is warm. Findings: No rash. Neurological: Mental Status: She is alert. Emergency Department Course Imaging: Radiographic findings were communicated with the patient who voiced understanding of the findings. US Abdomen Limited IMPRESSION: 1. ??Normal limited abdominal ultrasound. As read by Radiology. Laboratory: CMP: 3.2 (L), o/w WNL (Creatinine 0.67) 2324 Lactic acid 1.5 2340 Troponin I <0.015 D-Dimer: 0.3 Lipase: 50 Strep A Rapid Screen w Reflex to PCR: Pending Interventions: 2259 NS 1L IV Bolus Emergency Department Course: Past medical records, nursing notes, and vitals reviewed. 2250: I performed an exam of the patient and obtained history, as documented above. IV was inserted and blood was drawn for laboratory testing, results above. The patient provided a urine sample here in the emergency department. This was sent for laboratory testing, findings above. The patient was sent for an abdomen US while in the emergency department, findings above. 2342: I rechecked the patient. 0003: I rechecked the patient. Findings and plan explained to the Patient and mother. Patient discharged home with instructions regarding supportive care, medications, and reasons to return. The importance of close follow-up was reviewed. Impression & Plan Medical Decision Making: They presents for evaluation of abdominal pain. Their vital signs are reassuring without hypotensionand are afebrile. Clinically they have a benign abdominal examination and there is a low suspicion for acute intra abdominal catastrophe. They demonstrate symptoms and clinically appear c/w upper GI etiology. Diagnostic labs demonstrate no changes to raise suspicion for biliary tree pathology, hepatitis, pancreatitis. Metabolic panel is without changes of metabolic acidosis, anion gap acidosis, acutekidney injury or renal insufficiency, or concerning electrolyte disturbance warranting intervention. Given their presentation advanced imaging appears warranted. Imaging demonstrates no acute biliary tree pathology. D-dimer obtained de to tachycardia, use of OCP, and potential for pulmonary embolism. This was without elevation ruling this down and clinically suspicion is low for such. Her symptoms appear most c/w gastritis or peptic/gastric ulcer. Mother desires repeat strep testing which was performed. They desire to leave the ED prior to receipt of urine for analysis. Given her lack of urinary symptoms this appears reasonable. Outpatient symptomatic management discussed, patient discharged with precautions to return to the ED Diagnosis: ICD-10-CM 1. Acute abdominal pain R10.9 2. Pharyngitis J02.9 Disposition: Discharged home. Discharge Medications: New Prescriptions FAMOTIDINE (PEPCID) 20 MG TABLET Take 1 tablet (20 mg) by mouth 2 times daily for 7 days ONDANSETRON (ZOFRAN ODT) 4 MG ODT TAB Take 1 tablet (4 mg) by mouth every 8 hours as needed for nausea SUCRALFATE (CARAFATE) 1 GM TABLET Take 1 tablet (1 g) by mouth 4 times daily for 5 days Crush and mix with water into a slurry. Scribe Disclosure: Bob Reis, am serving as a scribe at 10:28 PM on 06/29/2020 to document services personally performed by Cash Mckee PA-C based on my observations and the provider's statements to me. [facility] EMERGENCY DEPT Cash Mckee PA-C 06/30/20 0039 UMER LENDING MANAGER documented in this encounter Plan of Treatment Not on filedocumented as of this encounter Procedures Procedure Name Priority Date/Time Associated Comments Diagnosis STREPTOCOCCUS A RAPID STAT 06/30/2020 12:16 Acute abdominal Results for this SCREEN W REFELX TO PCR AM CONSUMER LENDING MANAGER pain proce dure are in the results section. GROUP A STREPTOCOCCUS STAT 06/30/2020 12:16 Acute abdominal Results for this PCR THROAT SWAB AM CONSUMER LENDING MANAGER pain procedure ar e in the results section. US ABDOMEN LIMITED STAT 06/29/2020 11:34 Resul ts for this PM CONSUMER LENDING MANAGER procedure are i n the results section. TROPONIN I STAT 06/29/2020 11:00 Results for this PM CONSUMER LENDING MANAGER procedure are i n the results section. LIPASE STAT 06/29/2020 11:00 Results for this PM CONSUMER LENDING MANAGER procedure are i n the results section. LACTIC ACID WHOLE STAT 06/29/2020 11:00 Result s for this BLOOD PM CONSUMER LENDING MANAGER procedure are i n the results section. D DIMER QUANTITATIVE STAT 06/29/2020 11:00 Res ults for this PM CONSUMER LENDING MANAGER procedure are i n the results section. COMPREHENSIVE STAT 06/29/2020 11:00 Results fo r this METABOLIC PANEL PM CONSUMER LENDING MANAGER procedure ar e in the results section. documented in this encounter Results Group A Streptococcus PCR Throat Swab (06/30/2020 12:16 AM CONSUMER LENDING MANAGER) [facility] Method Time Signature Specimen Throat 06/30/2020 [place] Description 12:40 AM [facility] Strep Group A Not Detected NDET^Not 06/30/2020 [place] O F PCR Detected 3:38 AM [facility] Comment: Group A Streptococcus DNA is not detecte d. FDA approved assay performed using Sassor id GeneXpert real-time PCR. Specimen Anatomical Collection Method Collection Time Receive d Time (Source) Location / / Volume Laterality Specimen from 06/30/2020 12:16 06/30/2020 throat AM CONSUMER LENDING MANAGER 12:27 AM CONSUMER LENDING MANAGER (specimen) Cash Mckee PA-C LAB - MICRO GENERAL ORDER [place] Performing Organization Address City/[facility]/ZIP Code Phon e Number [address] [address] [facility] [address] [place], [place] [address], [facility] [phone] Streptococcus A Rapid Scr w Reflx to PCR (06/30/2020 12:16 AM CONSUMER LENDING MANAGER) [facility] Method Time Signature Strep Specimen Throat 06/29/2020 [place] Description 11:44 PM [facility] Streptococcus Negative NEG^Negat 06/30/2020 [place] Group A Rapid eunice 12:40 AM [facility] Comment: No Group A streptococcal antigen detecte d by immunoassay. Confirmatory testing in progress. Specimen Anatomical Collection Method Collection Time Receive d Time (Source) Location / / Volume Laterality Specimen from 06/30/2020 12:16 06/30/2020 throat AM CONSUMER LENDING MANAGER 12:27 AM CONSUMER LENDING MANAGER (specimen) Cash Mckee PA-C LAB - MICRO GENERAL ORDER [place] Performing Organization Address City/[facility]/ZIP [facility] Phon [place] Number [facility] [address] [place], [place] [address] [facility] [address] [place], [place] [address] [facility] [phone] US Abdomen Limited (06/29/2020 11:34 PM CONSUMER LENDING MANAGER) Anatomical Region Laterality Modality Abdomen/Pelvis Ultrasound Specimen (Source) Anatomical Collection Method Collection Time Re ceived Time Location / / Volume Laterality 06/29/2020 11:17 PM CONSUMER LENDING MANAGER Impressions 06/29/2020 11:37 PM CONSUMER LENDING MANAGER IMPRESSION: 1. ??Normal limited abdominal ultrasound . Narrative 06/29/2020 11:37 PM CONSUMER LENDING MANAGER EXAM: US ABDOMEN LIMITED LOCATION: [facility] DATE/TIME: 06/29/2020 11:17 PM INDICATION: Right upper quadrant pain COMPARISON: None. TECHNIQUE: Limited abdominal ultrasound. FINDINGS: GALLBLADDER: Normal. No gallstones, wall thickening, or pericholecystic fluid. Negative sonographic Srinivasan's sign. BILE DUCTS: No biliary dilatation. The c ommon duct measures 3 mm. LIVER: Normal parenchyma with smooth con tour. No focal mass. RIGHT KIDNEY: No hydronephrosis. PANCREAS: The visualized portions are no rmal. No ascites. Procedure Note Ford Leiva MD - 06/29/2020Formdaniella g of this note might be different from the original. EXAM: US ABDOMEN LIMITED LOCATION: [facility] DATE/TIME: 06/29/2020 11:17 PM INDICATION: Right upper quadrant pain COMPARISON: None. TECHNIQUE: Limited abdominal ultrasound. FINDINGS: GALLBLADDER: Normal. No gallstones, wall thickening, or pericholecystic fluid. Negative sonographic Srinivasan's sign. BILE DUCTS: No biliary dilatation. The c ommon duct measures 3 mm. LIVER: Normal parenchyma with smooth con tour. No focal mass. RIGHT KIDNEY: No hydronephrosis. PANCREAS: The visualized portions are no rmal. No ascites. IMPRESSION: 1. Normal limited abdominal ultrasound. Cash Mckee PA-C [facility] US ORDERABLES Troponin I (06/29/2020 11:00 PM CONSUMER LENDING MANAGER) athologist Signature Troponin I ES <0.015 0.000 - 06/29/2020 [place] 0.045 ug/L 11:40 PM [facility] Comment: The 99th percentile for upper reference range is 0.045 ug/L. ??Troponin values in the range of 0.045 - 0.120 ug/L may b e associated with risks of adverse clinical events. Specimen Anatomical Collection Method Collection Time Receive d Time (Source) Location / / Volume Laterality Blood specimen 06/29/2020 11:00 0 (specimen) PM CONSUMER LENDING MANAGER 11:16 PM CONSUMER LENDING MANAGER Cash Mckee PA-C LAB - BLOOD ORDERABLES Performing Organization Address City/State/ZIP Code Phon e Number M [facility] [address] [place], [place] [address] [facility] [address] [phone] Lactic acid whole blood (06/29/2020 11:00 PM CONSUMER LENDING MANAGER) athologist Signature Lactic Acid 1.5 0.7 - 2.0 06/29/2020 [place] mmol/L 11:24 PM [facility] Specimen Anatomical Collection Method Collection Time Receive d Time (Source) Location / / Volume Laterality Blood specimen 06/29/2020 11:00 0 (specimen) PM CONSUMER LENDING MANAGER 11:17 PM CONSUMER LENDING MANAGER Cash Mckee PA-C LAB - BLOOD ORDERABLES Performing Organization Address City/[facility] Phon e [facility] [address] [place], [place] [address] [facility] [address] [place] [address], [facility] [phone] Lipase (06/29/2020 11:00 PM CONSUMER LENDING MANAGER) athologist Signature Lipase 50 0 - 194 U/L 06/29/2020 [facility] 11:40 PM [facility] Specimen Anatomical Collection Method Collection Time Receive d Time (Source) Location / / Volume Laterality Blood specimen 06/29/2020 11:00 0 (specimen) PM CONSUMER LENDING MANAGER 11:16 PM CONSUMER LENDING MANAGER Cash Mckee PA-C LAB - BLOOD ORDERABLES Performing Organization Address City/[facility] e [facility] [address] [place], [place] [address] [facility] [address] [place] [address], [facility] [phone] (ABNORMAL) Comprehensive metabolic panel (06/29/2020 11:00 PM CONSUMER LENDING MANAGER) athologist Signature Sodium 138 133 - 144 06/29/2020 [place] mmol/L 11:31 PM [facility] Potassium 3.9 3.4 - 5.3 06/29/2020 [place] mmol/L 11:31 PM [facility] Chloride 107 96 - 110 06/29/2020 [place] mmol/L 11:31 PM [facility] Carbon Dioxide 26 20 - 32 06/29/2020 [place] mmol/L 11:38 PM [facility] Anion Gap 5 3 - 14 06/29/2020 [place] mmol/L 11:38 PM [facility] Glucose 95 70 - 99 06/29/2020 [place] mg/dL 11:38 PM [facility] Urea Nitrogen 7 7 - 19 06/29/2020 [facility] mg/dL 11:38 PM [facility] Creatinine 0.67 0.50 - 06/29/2020 [place] 1.00 mg/dL 11:38 PM [facility] GFR Estimate >90 >60 06/29/2020 [place] mL/min/{1. 11:38 PM [facility] 73_m2} HOSPITAL Comment: Non GFR Calc Starting 07/05/2018, serum creatinine ba sed estimated GFR (eGFR) will be calculated using the Chronic Kidney Dise [facility] Epidemiology Collaboration (CKD-EPI) equation. GFR Estimate If >90 >60 mL/min/{1.73_m2} 06/29/2020 11 :38 PM [facility] Comment: GFR Calc Starting 07/05/2018, serum creatinine ba sed estimated GFR (eGFR) will be calculated using the Chronic Kidney Dise [facility] Epidemiology Collaboration (CKD-EPI) equation. Calcium 8.6 8.5 - 10.1 06/29/2020 11:38 PM [facility] mg/dL [facility] Bilirubin Total 0.2 0.2 - 1.3 mg/dL 06/29/2020 11:40 P [facility] Albumin 3.2 (L) 3.4 - 5.0 g/dL 06/29/2020 11:40 PM [facility] Protein Total 7.1 6.8 - 8.8 g/dL 06/29/2020 11:40 PM [facility] Alkaline Phosphatase 94 40 - 150 U/L 06/29/2020 11:40 PM [facility] ALT 20 0 - 50 U/L 06/29/2020 11:40 PM [facility] AST 18 0 - 35 U/L 06/29/2020 11:40 PM [facility] Specimen Anatomical Collection Method Collection Time Receive d Time (Source) Location / / Volume Laterality Blood specimen 06/29/2020 11:00 0 (specimen) PM CONSUMER LENDING MANAGER 11:16 PM [facility] Cash Mckee PA-C LAB - BLOOD ORDERABLES Performing Organization Address [facility]/ZIP [facility] Phon e Number M [facility] [address] [place], [place] [address] [place] [address] [address] [place], [place] [address] [facility] [phone] D dimer quantitative (06/29/2020 11:00 PM CONSUMER LENDING MANAGER) P athologist Signature D Dimer 0.3 0.0 - 0.50 06/29/2020 [facility] ug/ml FEU 11:32 PM CONSUMER LENDING MANAGER HOSPITAL Comment: This D-dimer assay is intended for use i n conjunction with a clinical pretest probability assessment model to exclude pulmonary embolism (PE) and deep venous thrombosis (DVT) in outpatients s uspected of PE or DVT. The cut-off value is 0.5 ug/mL FEU. Specimen Anatomical Collection Method Collection Time Receive d Time (Source) Location / / Volume Laterality Blood specimen 06/29/2020 11:00 0 (specimen) PM CONSUMER LENDING MANAGER 11:16 PM CONSUMER LENDING MANAGER Cash Mckee PA-C LAB - BLOOD ORDERABLES Performing Organization Address [facility] Phon e Number [place] [address] [address] [place], [place] [address] [place] [address] [address] [place], [place] [address] [facility] [phone] documented in this encounter Visit Diagnoses Diagnosis Acute abdominal pain Abdominal pain, unspecified site Pharyngitis Acute pharyngitis documented in this encounter Administered Medications Inactive Administered Medications - up to 3 most recent administrations Medication Order MAR Action Action Date Dose Rate Site 0.9% sodium chloride BOLUS New Bag 06/29/2020 10:59 PM 1,000 mLs 1000 mL/hr Intravenous, 1,000 mL, CONSUMER LENDING MANAGER ONCE, at 1,000 mL/hr, Administer over 1 Hours, On 06/29/20 at 2300, For 1 dose sodium chloride 0.9% infusion at 125 mL/hr, Intravenous, CONTINUOUS, A dminister after the bolus., Starting on 06/30/20 at 0000, Until 06/30/20 at 0234 documented in this encounter Active and Recently Administered Medications Times are shown in CONSUMER LENDING MANAGER. Scheduled Medication Order 06/28/2020 06/29/2020 06/30/2020 0.9% sodium chloride BOLUS (COMPLETED) 2 259 (New Bag - Provider: Alem Olea, RN) 0025 (Stopped - Provider: Marisabel winston, RN) Intravenous, 1,000 mL, ONCE, at 1,000 mL /hr, Administer over 1 Hours, On 06/29/20 at 2300, For 1 dose Continuous Medication Order 06/28/2020 06/29/2020 06/30/2020 sodium chloride 0.9% infusion 00 00 (Canceled Entry - Provider: Orders Generic Provider - Comment: Automatically canceled at discontinue of medication order) at 125 mL/hr, Intravenous, CONTINUOUS, A dminister after the bolus., Starting 06/30/20 at 0000, Until 06/30/20 at 0234 documented in this encounter Additional Health Concerns Assessment Noted Time PHQ-9 Depression Total Score: 13 06/26/2020 10:[address] documented as of this encounter Care Teams Straightener And Aligner Relationship Specialty Start Date End Date Khalida Beyer MD PCP - General Psychiatry 05/28/20 08/22/21 Queta Fritz Assigned PCP 03/04/14 04/12/21 MD Liza [address] [facility] [address] [place], [place] [address] Tc Jama MD MD Pediatric Surgery 02/14/[address] [id number] Tc Jama MD Assigned Pediatric 05/10/20 09/06/21 5880 BEKAH BLUNT Specialist Provider [address] [place] [address] documented as of this encounter
--- OUTSIDE RECORDS SUMMARY | 2022-04-23 23:40 | XMS_ITS | Encounter Summary ---
:2000 Author Organization [facility] Address [address] [place] [id number] Care Team Providers Name Role Phone Queta Fritz MD Unavailable Tc Jama MD Unavailable Tc Jama MD Unavailable Khalida Beyer MD Primary Care Provider Reason for Visit Reason Comments Pharyngitis Encounter Details Date Type Department Care Team Description 06/07/2020 [facility] [address] [place], [place] [address] [id number] [place] [address] (Wo rk) Social History Tobacco Use Types [...] do you attend holiness or Never 2018 latter-day services? Do you [...] place to sleep or slept in a group home (including now)? Education Answer Date Recorded What is the highest level of school you have completed or 10 th grade 12/07/2018 the highest degree you have received? Sex Assigned at Date Recorded Female 09/04/2021 9:00 PM [facility] COVID-19 Exposure Response Date Recorded In the last month, have you been in contact with No / Unsure 06/07/2020 11:55 AM [facility] [facility] someone who was confirmed or suspected to have Coronavirus / COVID-19? documented as of this encounter Last Filed Vital Signs Vital Sign Reading Time Taken Comments Blood Pressure 150/94 06/07/2020 12:46 PM [facility] Pulse 95 06/07/2020 12:45 PM [employer] [facility] Temperature 37 ??C (98.6 ??F) 06/07/2020 12:03 PM [employer] [facility] Respiratory Rate 16 06/07/2020 12:35 PM [employer] [facility] Oxygen Saturation 98% 06/07/2020 12:45 PM [employer] [facility] Inhaled Oxygen Concentration - - Weight - - Height - - Body Mass Index - - documented in this encounter Discharge Instructions Discharge InstructionsHilda Mireles, DO - 06/07/2020 1:55 PM CST Discharge Instructions COVID-19 COVID-19 is the disease caused by a new coronavirus. The virus spreads from [id number] primarily by droplets when an infected person [...] are: Headache, body aches, sore throat, sneezing, diarrhea,loss of taste or smell. Isolation and Quarantine [...] of your last exposure to that individual. If you have symptoms but a negative [...] Separate yourself from other people in your home.?As much as possible, you should stay in [...] 20 seconds or use an alcohol-based hand high scaler containing at least 60% alcohol. Avoid touching [...] and tell them you have been ill. [facility] AttachmentsThe following attachments cannot be sent through Care Everywhere. Pharyngitis, Strep (Confirmed) (Russian)documented in this encounter Medications at Time of [...] documented as of this encounter ED Notes Johanan Hernadez RN - 06/07/2020 12:31 PM CST Pt recently discharged [facility]. Denies thoughts of wanting to hurt herself at this time. Mother at bedside. [facility] Fredrick Ribeiro RN - 06/07/2020 12:01 PM CST Pt c/o sore throat for 2 weeks explains it like her throat is closing Mom noticed this morning hervoice sounds different and pt has a hx of a peritonsillar abscess. Pt had a negative covid swab 05/26prior to [facility] to [facility]. Airway intact Hilda Lara DO - 06/07/2020 11:55 AM CST History Chief Complaint: Pharyngitis HPI Mahi Faye is a 20 year old female who presents with her mother for the evaluation of pharyngitis. The patient reports that this morning she started to experience a sore throat and for the pasttwo weeks she has been experiencing difficulty breathing, prompting her to the ED. The patient notesthat she also noticed a white patch in the back of her throat and that she is concerned for peritonsillar abscess. Patient states her voice sounded different this AM though not currently. The patient denies cough, rhinorrhea, nausea, vomiting, chest pain, current dyspnea, difficulty swallowing and other issues. Mother reports patient has a history of peritonsillar abscess and has a fear they will recur. 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 Marital Status: Single [1] Review of Systems Constitutional: Negative for fever. HENT: Positive for sore throat. Negative for rhinorrhea. Respiratory: Positive for shortness of breath. Negative for cough. Gastrointestinal: Negative for nausea and vomiting. All other systems reviewed and are negative. Physical Exam Patient Vitals for the past 24 hrs: BP Temp Temp src Pulse Resp SpO2 06/07/20 1246 (!) 150/94 -- -- -- -- -- 06/07/20 1245 -- -- -- 95 -- 98 % 06/07/20 1235 -- -- -- 90 16 -- 06/07/20 1203 (!) 163/105 98.6 ??F (37 ??C) Oral 111 16 98 % Physical Exam Nursing note and vitals reviewed. Constitutional: Well nourished. Resting comfortably. Eyes: Conjunctiva normal. Pupils are equal, round, and reactive to light. ENT: Moist mucus membranes. No abscess along gumline. Uvula midline. No cheek or submandibular edema. No trismus. No posterior oropharyngeal erythema/exudate. No obvious peritonsillar abscess visualized. Normal voice. TM normal Neck: Normal range of motion. CVS: Normal rate, regular rhythm. Normal heart sounds. No murmur. Pulmonary: Lungs clear to auscultation bilaterally. No wheezes/rales/rhonchi. GI: Abdomen soft. Nontender, nondistended. No rigidity or guarding. MSK: No calf tenderness or swelling. Neuro: Alert. Follows simple commands. Skin: Skin is warm and dry. No rash noted. Psychiatric: Anxious appearing Emergency Department Course Laboratory: Streptococcus A Rapid Scr w Reflex to PCR: Positive Symptomatic COVID-19 Virus (Coronavirus) by PCR Nasopharyngeal swab: Pending Emergency Department Course: Past medical records, nursing notes, and vitals reviewed. 1226: I performed an exam of the patient and obtained history, as documented above. 1400: I rechecked the patient. Explained findings to patient and mother. Findings and plan explained to the Patient. Patient discharged home with instructions regarding supportive care, medications, and reasons to return. The importance of close follow-up was reviewed. The patient was prescribed amoxicillin. Impression & Plan Covid-19 Mahi Faye was evaluated during a global COVID-19 pandemic, which necessitated considerationthat the patient might be at risk for infection with the SARS-CoV-2 virus that causes COVID-19. Applicable protocols for evaluation were followed during the patient's care. COVID-19 was considered as part of the patient's evaluation. The plan for testing is: a test was obtained during this visit. Medical Decision Making: Mahi Faye is a 20 year old female presenting with sore throat. Patient tachycardic on arrival though no significant respiratory distress. Her repeat heart rate improved at bedside without intervention. Patient also reported dyspnea though denies on arrival. I offered patient and mother formalEKG, blood work and chest x-ray though they feel comfortable deferring at this time. Patient's lungsclear, no significant work of breathing I doubt pneumonia. Patient is positive for strep pharyngitistoday. There is no evidence on exam to suggest peritonsillar abscess or other serious etiology including epiglottitis, Ludwigs angina, dental absccess. I did discuss I cannot exclude diagnosis of peritonsillar abscess without a CT however and patient and mother expressed understanding of this. In light of patient's symptoms she was tested for COVID- 19 today. She was made aware of need for self-isolation pending testing results. Will discharge home with antibiotics; salt water gargles recommended and ibuprofen/tylenol for pain control as needed. Diagnosis: ICD-10-CM 1. Streptococcal pharyngitis J02.0 Disposition: Discharged to home with amoxicillin. Discharge Medications: New Prescriptions AMOXICILLIN (AMOXIL) 500 MG CAPSULE Take 2 capsules (1,000 mg) by mouth 2 times daily for 10 days Scribe Disclosure: IMike, am serving as a scribe at 12:31 PM on 06/07/2020 to document services personally performed by Hilda Mireles DO based on my observations and the provider's statements to me. Mike Elliott 06/07/2020 [facility] EMERGENCY DEPT Hilda Mireles DO 06/07/20 1889 [facility] documented in this encounter Plan of Treatment Not on filedocumented as of this encounter Procedures Procedure Name Priority Date/Time Associated Diagnosis Comme nts COVID-19 VIRUS STAT 06/07/2020 12:44 Streptococcal Results for this (CORONAVIRUS) BY PCR PM [employer] [facility] pharyngitis procedu re are in the results section. STREPTOCOCCUS A RAPID STAT 06/07/2020 12:44 Re sults for this SCREEN W REFELX TO PM [employer]ANCE [employer] procedure are in PCR the results section. documented in this encounter Results Symptomatic COVID-19 Virus (Coronavirus) by PCR (06/07/2020 12:44 PM INS[facility]ANCE [facility]) [facility] Method Time Signature COVID-19 Nasopharyngeal 06/07/2020 [facility] Virus PCR to 12:46 PM [facility] Source COVID-19 Not Detected 06/08/2020 [facility] Virus PCR to 7:31 PM [facility] - DIAGNOSTIC Result LABORATORY, [facility] Comment: Collection of multiple specimens from th e same patient may be necessary to detect the virus. The possibility of a f alse negative should be considered if the patient's recent exposure or clinica l presentation suggests 2019 nCOV infection and diagnostic tests for other causes of illness are negative. Repeat testing may be considered in this setting. Patient sample was heat inactivated and amplified using the HDPCR SARS-CoV-2 assay ([employer] The HDPCRTM DEBBIE S-CoV-2 assay is a reverse brake drum lathe operator real-time polymerase chain reaction (qRT-PCR) test intended for the qualitative detection of nucleic aci d from SARS-CoV-2 in human nasopharyngeal swabs, oropharyngeal swabs, anterior nasal swabs, mid-turbinate nasal swabs a s well as nasal aspirate, nasal wash, and bronchoalveolar lavage (BAL) specime ns from individuals who are suspected of COVID-19 by their healthcare provider . A negative result does not rule out the presence of real-time PCR inhibitors in the specimen or COVID-19 RNA in ru ntrations below the limit of detection of the assay. The possibility of a fals e negative should be considered if the patients recent exposure or clinical pr esentation suggests COVID-19. Additional testing or repeat testing req uires consultation with the laboratory. Nasopharyngeal specimen is the preferred choice for swab-based SARS CoV2 testing. When collection of a nasopharyn geal swab is not possible the following are acceptable alternatives: an oropharyngeal (OP) specimen collected by a healthcare professional, or a nasal mid-turbinate (NMT) swab collected by a healthcare professional or by onsite self-collection (using a flocked tapered swab), or an anterior nares specimen collected by a healthcare profe ssional or by onsite self-collection (using a round foam swab). (Centers for Disease Control) Testing performed by [facility] ([facility]) [address] [facility] [address] [facility] [address] The test performance characteristics wer e determined by [facility]. It has not been cleared or approved by the FDA. The laboratory is regulated under the Cl inical Laboratory Improvement Amendments of 1988 (CLIA-88) as qualifie d to perform high-complexity testing. This test is used for clinical purposes. It should not be regarded as investigational or for research. Specimen (Source) Anatomical Collection Method Collection Time Re ceived Time Location / / Volume Laterality Specimen from 06/07/2020 12:44 06/07/2020 nasopharyngeal PM [facility] [facility] 1:28 PM INS[employer]ANCE [employer] structure (specimen) Hilda Mireles DO LAB - MICRO GENERAL ORDERABL ES Performing Organization Address City/[facility]/ZIP [facility] Phon e Number [facility] [place] [address] [phone] DIAGNOSTIC LABORATORY, [facility] [address] [facility] [address] [facility] [address] [phone] (ABNORMAL) Streptococcus A Rapid Scr w Reflx to PCR (06/07/2020 12:44 PM INSURANCE [employer]) [facility] Method Time Signature Strep Specimen Throat 06/07/2020 [facility] Description 12:37 PM [facility] Streptococcus Positive (A) NEG^Negat 06/07/2020 [facility] Group A Rapid eunice 1:30 PM INS[facility]ANCE [employer] Comment: Group A Streptococcal antigen d etected by immunoassay. Specimen Anatomical Collection Method Collection Time Receive d Time (Source) Location / / Volume Laterality Specimen from 06/07/2020 12:44 06/07/2020 1:14 throat PM INS[employer]ANCE [employer] PM [employer] [facility] (specimen) Hilda Mireles DO LAB - MICRO GENERAL ORDERABL ES Performing Organization Address City/[facility]/ZIP Code Phon e Number [place] [address] [place], [place] [address] [facility] [address] [place], [place] [address] [facility] [phone] documented in this encounter Visit Diagnoses Diagnosis Streptococcal pharyngitis Streptococcal sore throat documented in this encounter Additional Health Concerns Infection Onset Date Last Indicated Resolved Time Rule Out COVID-19 06/07/2020 06/07/2020 06/08/2020 7:3 4 PM [employer] [facility] Assessment Noted Time PHQ-9 Depression Total Score: 7 11/13/2019 11:26 AM CD T documented as of this encounter Care Teams Interface Analyst Relationship Specialty Start Date End Date Khalida Beyer MD PCP - General Psychiatry 05/28/20 08/22/21 Queta Fritz Assigned PCP 03/04/14 04/12/21 MD Liza [address] [facility] [address] [place] [address] Tc Jama MD MD Pediatric Surgery 02/14/[address] [address] Tc Jama MD Assigned Pediatric 05/10/20 09/06/21 2450 BEKAH MOLINA Specialist Provider [address] [place] [address] documented as of this encounter
--- OUTSIDE RECORDS SUMMARY | 2022-04-23 23:40 | XMS_ITS | Encounter Summary ---
:2000 Author Organization [facility] Address [address] [place] [address] Care Team Providers Name Role Phone Queta Fritz MD Unavailable [phone] Tc Jama MD Unavailable Tc Jama MD Unavailable Khalida Beyer MD Primary Care Provider Rosario Noe APRN CN Unavailable [phone] Reason for Referral Consultation (Routine) - Closed Specialty Diagnoses / Procedures Referred By Contact Refer red To Contact Diagnoses Class 2 obesity due to excess calories without serious comorbidity with body mass index (BMI) of 35.0 to 35.9 in adult Queta Fritz [facility] [address] [facility] [address] [place] [address] [place] [address] Referral ID Status Reason Start Date Expiration Date Visits Requ ested Visits Authorized [id number] Closed 09/25/2020 09/25/2021 1 1 ONAL TRAINING MANAGER Reason for Visit Reason Comments Weight Check weight gain. very good appet ite lately Encounter Details Date Type Department Care Team Description 09/25/2020 Office Visit [facility] Queta Fritz Class 2 obesity due Clinic Krystle De Jesus MD to excess calories [address] without serious [place] 100 comorbidity with body [place], [place]) [place] [id number] 35.0 to 35.9 in adult [phone] (Wo rk) (Primary Dx) Social History Tobacco Use Types Packs/Day Years [...] or relatives? How often do you attend rastafari or Never 2018 congregation services? Do you belong to any clubs or No 12/07/2018 organizations such as rastafari groups, unions, fraternal or athletic groups, or [...] at Date Recorded Female 09/04/2021 9:00 PM REGIONAL TRAINING MANAGER COVID-19 Exposure Response Date Recorded In the last month, have you been in contact with Yes 09/27/2020 11:32 AM REGIONAL TRAINING MANAGER someone who was confirmed or suspected to have Coronavirus / COVID-19? documented as of this encounter Last Filed Vital Signs Vital Sign Reading Time Taken Comments Blood Pressure 140/86 09/25/2020 1:05 PM REGIONAL TRAINING MANAGER Pulse 90 09/25/2020 1:05 PM REGIONAL TRAINING MANAGER Temperature 36.9 ??C (98.4 ??F) 09/25/2020 1:05 PM REGIONAL TRAINING MANAGER Respiratory Rate 26 09/25/2020 1:05 PM REGIONAL TRAINING MANAGER Oxygen Saturation 97% 09/25/2020 1:05 PM REGIONAL TRAINING MANAGER Inhaled Oxygen Concentration - - Weight 105.2 kg (232 lb) 09/25/2020 1:05 PM REGIONAL TRAINING MANAGER Height 173.1 cm (5' 8.15) 09/25/2020 1:05 PM REGIONAL TRAINING MANAGER Body Mass Index 35.12 09/25/2020 1:05 PM REGIONAL TRAINING MANAGER Body Mass Index Percentile 97.65 % 09/25/2020 1:05 PM CS T Growth Chart: [facility] (Girls, 2-20 Years) documented in this encounter Patient Instructions Patient InstructionsFoQueta roque MD - 09/25/2020 1:00 PM REGIONAL TRAINING MANAGER Mahi is gaining weight too fast. This has placed her in a weight category that is unhealthy at this time and places her at risk for significant adverse health outcomes such as diabetes, heart disease, and hypertension. It is very important to make changes in eating and activity to allow her to grow into her weight. It is also important to avoid an eating disorder. Try not to eat when you are not hungry. Don't shame yourself about eating. For the weight problem: The most important thing to do is be active almost every day. The goal is continuous activity to make you break a light sweat for 45-60 min. MAKE THIS FUN! How you eat is also important: Common eating errors include 1)portion size, 2)eating out of boredom or while otherwise occupied (i.e.watching TV or doing homework) 3)feeling hunger when one is thirsty. I advise you 1) eat only when you are hungry 2)quench thirst before deciding you are hungry. 3) control portions A) use a smaller (salad size) plate. b)Plate the food away from the table when possible. c)Put 1/2 of the plate with veggies (with some fruit as well) and 1/4 the plate with starches including corn and potatoe and 1/[address] with protein. Remember that breaded protein is counts for part of the starch for that meal. What you eat is also important:: Stay away from High Fructose Buford Syrup and refined sugar.(read labels and buy peanut butter etc without added sugar) Flour is quickly turned to sugar eat less of that Eat whole grains, veggies and fruits. Make sure you are getting enough protein. (40 gm a day) Avoid Juice and Soda except for rarely When you eat is also important: Eat nothing for 12 hours out of 24. (e.g. 7pm-7 am) ONAL TRAINING MANAGER documented in this encounter Progress Notes Queta Fritz MD - 09/25/2020 1:00 PM CST Assessment & Plan Class 2 obesity due to excess calories without serious comorbidity with body mass index (BMI) of 35.0 to 35.9 in adult - WEIGHT/BARIATRIC PEDS REFERRAL Mahi is gaining weight too fast. This has placed her in a weight category that is unhealthy at this time and places her at risk for significant adverse health outcomes such as diabetes, heart disease, and hypertension. It is very important to make changes in eating and activity to allow her to grow into her weight. It is also important to avoid an eating disorder. Try not to eat when you are not hungry. Don't shame yourself about eating. For the weight problem: The most important thing to do is be active almost every day. The goal is continuous activity to make you break a light sweat for 45-60 min. MAKE THIS FUN! How you eat is also important: Common eating errors include 1)portion size, 2)eating out of boredom or while otherwise occupied (i.e.watching TV or doing homework) 3)feeling hunger when one is thirsty. I advise you 1) eat only when you are hungry 2)quench thirst before deciding you are hungry. 3) control portions A) use a smaller (salad size) plate. b)Plate the food away from the table when possible. c)Put 1/2 of the plate with veggies (with some fruit as well) and 1/4 the plate with starches including corn and potatoe and 1/4 place with protein. Remember that breaded protein is counts for part of the starch for that meal. What you eat is also important:: Stay away from High Fructose Buford Syrup and refined sugar.(read labels and buy peanut butter etc without added sugar) Flour is quickly turned to sugar eat less of that Eat whole grains, veggies and fruits. Make sure you are getting enough protein. (40 gm a day) Avoid Juice and Soda except for rarely When you eat is also important: Eat nothing for 12 hours out of 24. (e.g. 7pm-7 am) BMI: Estimated body mass index is 35.12 kg/m?? as calculated from the following: Height as of this encounter: 5' 8.15 (1.731 m). Weight as of this encounter: 232 lb (105.2 kg). See Patient Instructions No follow-ups on file. Queta Fritz MD [facility] Leonardo Champagne is a 20 year old who presents for the following health issues HPI Mahi is a young women with a chromosomal abnormality and developmentla delay who is well known tome. She is living with her mother and younger brother at this time and is on a waiting list for a retirement. Of note, she has lived in a retirement in the past. Her behaviors have become much more manageable and she is getting along pretty well with her family. She has struggled with obesity for some time. Between ages 15 and [age] her BMI climnbed from 18.5 (50th %ile ) to 30.5 (97th %ile). During this time she was on Seroquil. Subsequent weight loss was associated with Site Review Completed 09/25/20 approved/denied Commentg GI complaints that had a negative work up. Her BMI was 25 about 1 year ago and has climbed back up since then. Mahi is here today to see what she can do. She knows this puts her at risk for a bad outcome if she gets Covid 19 and in other ways. She states that she understands that she needs more exercise and a change in her eating but asks forguidance. Review of Systems Constitutional, HEENT, cardiovascular, pulmonary, gi and gu systems are negative, except as otherwise noted. Objective BP (!) 140/86 (BP Location: Left arm, Patient Position: Sitting, Cuff Size: Adult Large) Pulse 90 Temp 98.4 ??F (36.9 ??C) (Oral) Resp 26 Ht 5' 8.15 (1.731 m) Wt 232 lb (105.2 kg) SpO2 97% BMI 35.12 kg/m?? Body mass index is 35.12 kg/m??. Physical Exam GENERAL: healthy, alert and no distress NECK: no adenopathy, no asymmetry, masses, or scars and thyroid normal to palpation RESP: lungs clear to auscultation - no rales, rhonchi or wheezes CV: regular rate and rhythm, normal S1 S2, no S3 or S4, no murmur, click or rub, no peripheral edemaand peripheral pulses strong ABDOMEN: soft, nontender, no hepatosplenomegaly, no masses and bowel sounds normal MS: no gross musculoskeletal defects noted, no edema documented in this encounter Plan of Treatment Scheduled Referrals Name Type Priority Associated Diagnoses Order S chedule WEIGHT/BARIATRIC PEDS Referral Routine Class 2 obesity due to Ordered: 09/25/2020 REFERRAL excess calories without serious comorbidity with body mass index (BMI) of 35.0 to 35.9 in adult documented as of this encounter Visit Diagnoses Diagnosis Class 2 obesity due to excess calories w ithout serious comorbidity with body mass index (BMI) of 35.0 to 35.9 in adult - P rimary documented in this encounter Additional Health Concerns Assessment Noted Time PHQ-9 Depression Total Score: 13 06/26/2020 10:[address] documented as of this encounter Care Teams Tax Associate Attorney Relationship Specialty Start Date End Date Khalida Beyer MD PCP - General Psychiatry 05/28/20 08/22/21 Queta Fritz Assigned PCP 03/04/14 04/12/21 MD [facility] [address] [facility] [address] [place], [place] [id number] Tc Jama MD MD Pediatric Surgery 02/14/[address] [place] [id number] Tc Jama MD Assigned Pediatric 05/10/20 09/06/21 [address] Specialist Provider [address] [place], [place] [id number] Rosario Noe, Assigned OBGYN Provider 07/21/20 01/16/22 GUIDE CRUISE CNM [address] [place] [address] documented as of this encounter
--- OUTSIDE RECORDS SUMMARY | 2022-04-23 23:40 | XMS_ITS | Encounter Summary ---
:2002 Author Organization [facility] Address [address] [place] [address] Care Team Providers Name Role Phone Queta Fritz MD Unavailable [phone] Tc Jama MD Unavailable Tc Jama MD Unavailable Khalida Beyer MD Primary Care Provider Rosario Noe APRN CNM Unavailable Eda Duarte MD Unavailable Mike Sherwood MD Unavailable [phone] Navid Paige MD Unavailable Norma Ruggiero APRN CHILD CARE COUNSELOR Unavailable [phone] Reason for Visit Reason Onset Date Comments Appointment 09/27/2020 covid vaccine Encounter Details Date Type Department Care Team Description 09/27/2020 Telephone [facility] Queta Fritz ntmrosalinda (covid Clinic Krystle De Jesus MD vaccine) [address] [place], [place] [address] [place], [place] [id number] (Wo rk) Social History Tobacco Use Types [...] do you attend scientology or Never 2018 anabaptist services? 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 documented as of this encounter Miscellaneous Notes Telephone Encounter - Sarai Hanna RN - 09/27/2020 9:19 AM CST Spoke with mom. Informed of provider's message below. 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 Mom had patient tested 09-26-20 and both patient and mom tested positive for covid. Patient is complaining of all the typical symptoms of covid (URI-like symptoms) except no fever.Mom and patient are currently are in quarantine in a room together. Patient was also in clinic on 09-25-20 for office visit. Mom wanted to inform provider. (This RN advised mom to hold off on getting the covid vaccine until patient is feeling better.) KEEPING CLERKS SUPERVISOR Telephone Encounter - Queta Fritz MD - 09/27/2020 8:19 AM BOOKKEEPING CLERKS SUPERVISOR Please call and let Mahi and/or mother guardian know that she is now eligable for a Covid 19 Shotthrough [facility]. Advise she use [email or web address] to set up an appointment KEEPING CLERKS SUPERVISOR documented in this encounter Plan of Treatment Not on filedocumented as of this encounter Visit Diagnoses Not on filedocumented in this encounter Additional Health Concerns Assessment Noted Time PHQ-9 Depression Total Score: 13 06/26/2020 10:[address] documented as of this encounter Care Teams Business Law Professor Relationship Specialty Start Date End Date Khalida Beyer MD PCP - General Psychiatry 05/28/20 08/22/21 Queta Fritz Assigned PCP 03/04/14 04/12/21 MD Liza [address] [facility] [address] [place] [address] Tc Jama MD Pediatric Surgery 02/14/[address] [place] [address] Tc Jama, Assigned Pediatric 05/10/20 MD Specialist Provider [address] [place] [address] Rosario Noe, Assigned OBGYN Provider 07/21/20 01/16/22 CUSTOMER SOLUTIONS SUPERVISOR CNM [address] [place] [address] Eda Duarte Assigned Surgical Provider 10/02/20 MD Alex [address] [facility] [address] [place] [address] Mike Sherwood Assigned Sleep Provider 01/31/21 MD Navid [address] [place] [address] Navid Paige MD Assigned Musculoskeletal 03/16/21 [address] [facility] [place] [address] Norma Ruggiero, Assigned PCP 04/13/21 05/24/21 CUSTOMER SOLUTIONS SUPERVISOR CHILD CARE COUNSELOR [address] [place], [place] [address] documented as of this encounter
--- OUTSIDE RECORDS SUMMARY | 2022-04-23 23:41 | XMS_ITS | Encounter Summary ---
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 PM [facility] Comment: This test is for screening purposes. ??R esults should be interpreted along with the clinical picture. ??Confirmation te sting is available if warranted by ordering [id number], HCG Quantitative Pregna ncy. Specimen Anatomical Collection Method Collection Time Receive d Time (Source) Location / / Volume Laterality Urine specimen 05/26/2020 10:23 0 (specimen) PM SPEECH AND DRAMA TEACHER 10:30 PM SPEECH AND DRAMA TEACHER Yudith Davalos MD LAB - URINE ORDERABLES Performing Organization Address City/[facility]/ZIP Code Phon e Number [facility] [address], [place] [address] [facility] [address] [place], [place] [address], [facility] [phone] (ABNORMAL) UA with Microscopic (05/26/2020 10:23 PM SPEECH AND DRAMA TEACHER) Patholo gist Method Time Signature Color Urine Yellow 05/26/2020 [place] 10:44 PM [facility] Appearance Urine Slightly 05/26/2020 [place] Cloudy 10:44 PM [facility] Glucose Urine Negative NEG^Negat 05/26/2020 [facility] e[place]ice mg/dL 10:44 PM [facility] Bilirubin Urine Negative NEG^Negat 05/26/2020 [facility] [place]ice 10:44 PM [facility] Ketones Urine Trace (A) NEG^Negat 05/26/2020 [facility] [place]ice mg/dL 10:44 PM [facility] Specific [place] 1.029 1.003 - 05/26/2020 [facility] Urine 1.035 10:44 PM [facility] Blood Urine Negative NEG^Negat 05/26/2020 [facility] [place]ice 10:44 PM [facility] pH Urine 6.0 5.0 - 7.0 05/26/2020 [facility] pH 10:44 PM [facility] Protein Albumin 10 (A) NEG^Negat 05/26/2020 [place] Urine eunice mg/dL 10:44 PM [facility] Urobilinogen Normal 0.0 - 2.0 05/26/2020 [facility] mg/dL mg/dL 10:44 PM [facility] Nitrite Urine Negative NEG^Negat 05/26/2020 [facility] [place] 10:44 PM [facility] Leukocyte Trace (A) NEG^Negat 05/26/2020 [facility] Esterase Urine eunice 10:44 PM [facility] Source Midstream 05/26/2020 [facility] Urine 10:30 PM [facility] WBC Urine 5 0 - 5 05/26/2020 [facility] /HPF 10:44 PM [facility] RBC Urine 8 (H) 0 - 2 05/26/2020 [facility] /HPF 10:44 PM [facility] Bacteria Urine Few (A) NEG^Negat 05/26/2020 [facility] [place]ice /HPF 10:44 PM [facility] Squamous 2 (H) 0 - 1 05/26/2020 [facility] Epithelial /HPF /HPF 10:44 PM [facility] Mucous Urine Present (A) NEG^Negat 05/26/2020 [facility] [place] /LPF 10:44 PM [facility] Specimen (Source) Anatomical Collection Method Collection Time Re ceived Time Location / / Volume Laterality Examination of 05/26/2020 10:23 0 midstream urine PM SPEECH AND DRAMA TEACHER 10:30 PM SPEECH AND DRAMA TEACHER specimen (procedure) Yudith Davalos MD LAB - URINE ORDERABLES Performing Organization Address City/State/ZIP Code Phon e Number [facility] [address], [place] [address] [facility] [address] [place], [place] [address] [phone] documented in this encounter Visit Diagnoses Diagnosis Suicidal ideation documented in this encounter Administered Medications Inactive Administered Medications - up to 3 most recent administrations Medication Order MAR Action Action Date Dose Rate Site levonorgestrel-ethinyl estradiol Given 05/27/2020 6:19 PM SPEECH AND DRAMA TEACHER 1 tablet (NORDETTE) 0.15-30 MG-MCG per tablet 1 tablet 1 tablet, Oral, DAILY, First dose on Wed05/27/20 at 1725 LORazepam (ATIVAN) tablet 1 mg Given 05/27/2020 10:47 AM SPEECH AND DRAMA TEACHER 1 mg 1 mg, Oral, ONCE, On Wed05/27/20 at 1040, For 1 dose LORazepam (ATIVAN) tablet 1 mg Given 05/27/2020 6:47 PM SPEECH AND DRAMA TEACHER 1 mg 1 mg, Oral, ONCE, On Wed05/27/20 at 1845, For 1 dose ondansetron (ZOFRAN-ODT) ODT tab 4 mg Given 05/27/2020 5:56 PM SPEECH AND DRAMA TEACHER 4 mg 4 mg, Oral, ONCE, On Wed05/27/20 at 1755, For 1 dose, With dry hands, peel back foil backing and gently remove tablet. Do not push oral disintegrating tablet through foil backing. Administer immediately on tongue and oral disintegrating tablet dissolves in seconds, then swallow with saliva. Liquid not required. QUEtiapine (SEROquel) tablet 300 mg Given 05/28/2020 12:30 AM SPEECH AND DRAMA TEACHER 300 mg 300 mg, Oral, AT BEDTIME, First dose on 05/26/20 at 2235 Given 05/26/2020 10:53 PM SPEECH AND DRAMA TEACHER 300 mg documented in this encounter Active and Recently Administered Medications Times are shown in SPEECH AND DRAMA TEACHER. Scheduled Medication Order 05/26/2020 05/27/2020 05/28/2020 levonorgestrel-ethinyl estradiol (NORDETTE) 0.15-30 MG-MCG p er tablet 1 tablet 181 (Given - Provider: Radha Harp RN - Comment: Scanner not working in room) 1 tablet, Oral, DAILY, First dose on Wed05/27/20 at 1725 LORazepam (ATIVAN) tablet 1 mg (COMPLETED) 1047 (Given - Provider: Dixie Quigley, RN) 1 mg, Oral, ONCE, 05/27/20 at 1040, For 1 dose LORazepam (ATIVAN) tablet 1 mg (COMPLETED) 1847 (Given - Provider: Radha Harp, JAZMYNE - Comment: Scanner not working) 1 mg, Oral, ONCE, On 05/27/20 at 1845, For 1 dose ondansetron (ZOFRAN-ODT) ODT tab 4 mg (COMPLETED) 1756 (Given - Provider: Radha Harp, JAZMYNE - Comment: Scanner not workling in room) 4 mg, Oral, ONCE, Wed05/27/20 at 1755, F or 1 dose, With dry hands, peel back foil backing and gently remove tablet. Do not push oral disintegrating tablet through foil backing. Administer immediately on tongue and oral disintegrating tablet d issolves in seconds, then swallow with saliva. Liquid not required. QUEtiapine (SEROquel) tablet 300 mg 2253 (Given - Prov ider: Gardenia Mixon RN) 0030 (Given - Provider: Chani Ching RN) 300 mg, Oral, AT BEDTIME, First dose on 05/26/20 at 2235 documented in this encounter Additional Health Concerns Assessment Noted Time PHQ-9 Depression Total Score: 7 11/13/2019 11:26 AM CD T documented as of this encounter Care Teams Communication Lecturer Relationship Specialty Start Date End Date Queta Fritz PCP - General Pediatrics 12/19/15 05/27/20 MD Liza [address] [place] [address] [phone] Khalida Beyer MD PCP - General Psychiatry 05/28/20 08/22/21 Queta Fritz Assigned PCP 03/04/14 04/12/21 MD Liza [address] [place] [address] [id number] Tc Jama MD MD Pediatric Surgery 02/14/20 [address] [place], [place] [address] Tc Jama MD Assigned Pediatric 05/10/20 09/06/21 6030 BEKAH BLUNT Specialist Provider [address] [place] [address] [phone] documented as of this encounter
--- OUTSIDE RECORDS SUMMARY | 2022-04-23 23:41 | XMS_ITS | Encounter Summary ---
:2002 Author Organization [place] Address [address] [facility] [place] [address] Care Team Providers Name Role Phone Queta Fritz MD Primary Care Provider [phone] Queta Fritz MD Unavailable [phone] Tc Jama MD Unavailable Tc Jama MD Unavailable Reason for Visit Reason Comments Urinary Problem frequency x 6 wks, unable to hold the urine Dysuria Consult mother is concerned about di abetes-blurred vision, extreme thirst, always hungry Encounter Details Date Type Department Care Team Description 05/19/2020 Office Visit [facility] Lyle Mccabe MD BV (bacterial vaginosis) (Primary Dx); Urgent Care [facility] [address] Screening for condition; [address] [place], [place] Dysuria; [place] [address] Nonspecific [place] [id number] Social History Tobacco Use Types Packs/Day Years [...] or relatives? How often do you attend confucianist or Never 2018 confucianism services? 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 documented as of this encounter Last Filed Vital Signs Vital Sign Reading Time Taken Comments Blood Pressure 130/82 05/19/2020 2:05 PM AGRICULTURAL SERVICE TECHNICIAN Pulse 115 05/19/2020 2:05 PM AGRICULTURAL SERVICE TECHNICIAN Temperature 36.8 ??C (98.2 ??F) 05/19/2020 2:05 PM AGRICULTURAL SERVICE TECHNICIAN Respiratory Rate 16 05/19/2020 2:05 PM AGRICULTURAL SERVICE TECHNICIAN Oxygen Saturation 97% 05/19/2020 2:05 PM AGRICULTURAL SERVICE TECHNICIAN Inhaled Oxygen Concentration - - Weight 94.3 kg (208 lb) 05/19/2020 2:05 PM AGRICULTURAL SERVICE TECHNICIAN Height - - Body Mass Index 31.43 03/15/2020 8:06 PM CDT Body Mass Index Percentile 95.91 % 05/19/2020 2:05 PM CS T Growth Chart: [facility] (Girls, 2-20 Years) documented in this encounter Patient Instructions Patient InstructionsLyle Mccabe MD - 05/19/2020 1:50 PM CST Images from the original note were not included. Patient Education Bacterial Vaginosis You have a vaginal infection called bacterial vaginosis (BV). Both good and bad bacteria are presentin a healthy vagina. BV occurs when these bacteria get out of balance. The number of bad bacteria increase. And the number of good bacteria decrease. Although BV is associated with sexual activity, it is not a sexually transmitted disease. BV may or may not cause symptoms. If symptoms do occur, they can include: ?? Thin, presley, milky-white, or sometimes green discharge ?? Unpleasant odor or ???fishy?? smell ?? Itching, burning, or pain in or around the vagina It is not known what causes BV, but certain factors can make the problem more likely. This can include: ?? Douching ?? Having sex with a new partner ?? Having sex with more than one partner BV will sometimes go away on its own. But treatment is usually recommended. This is because untreated BV can increase the risk of more serious health problems such as: ?? Pelvic inflammatory disease (PID) ?? delivery (giving to a baby early if you???re ) ?? HIV and certain other sexually transmitted diseases (STDs) ?? Infection after surgery on the reproductive organs Home care General care ?? BV is most often treated with medicines called antibiotics. These may be given as pills or as a vaginal cream.??If antibiotics are prescribed, be sure to use them exactly as directed. Also, be sure to complete all of the medicine, even if your symptoms go away. ?? Don't douche or having sex during treatment. ?? If you have sex with a female partner, ask your healthcare provider if she should also be treated. Prevention ?? Don't douche. ?? Don't have sex. If you do have sex, then take steps to lower your risk: ? Use condoms when having sex. ? Limit the number of sexual partners you have. Follow-up care Follow up with your healthcare provider, or as advised. When to seek medical advice Call your healthcare provider right away if: ?? You have a fever of??100.4??F (38??C)??or higher, or as directed by your provider. ?? Your symptoms worsen, or they don???t go away within a few days of starting treatment. ?? You have new pain in the lower belly??or pelvic region. ?? You have side effects that bother you or a reaction to the pills or cream you???re prescribed. ?? You or any partners you have sex with have new symptoms, such as a rash, joint pain, or sores. [employer] last reviewed this educational content on 04/18/2017 ?? [id number] [employer]. [address] [place] [address], [place] [address]. All rights reserved. This information is not intended as a substitute for professional medical care. Always follow your healthcare professional's instructions. CULTURAL SERVICE TECHNICIAN documented in this encounter Progress Notes Lyle Mccabe MD - 05/19/2020 1:50 PM CST Subjective Mahi Faye is a 20 year old female who presents to clinic today for the following health issues: HPI Patient is an 20-year-old female history of intellectual delay who presents to urgent care for concerns that she has developed diabetes. Additionally concerned about urinary tract infection. She is currently on Seroquel and feels that the last several weeks he feels increased urinary frequency, urgency. There is no pain with urination. She is also noticed symptoms of diabetes which she read online that includes increased thirst and hunger. Additionally associated with blurry vision. Notably she did have an A1c testing 2 months ago that showed negative screen for diabetes. Otherwise, has noticed some redness on her upper chest for the last several months, states she is going to be having subsequent allergy testing. Mom states they could not get in with her primary and her next available appointments 1 month for routine annual. Have not scheduled an earlier office visit for these issues. Review of Systems Endocrine: Positive for polydipsia, polyphagia and polyuria. Genitourinary: Negative for dysuria. Past Medical History: Diagnosis Date ??? ADHD (attention deficit hyperactivity disorder) ??? 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 Tonsillar abscess, S/P drainage 07/16/2014 Past Surgical History: Procedure Laterality Date ??? ARTHROSCOPY KNEE ??? COLONOSCOPY N/A 02/10/2019 Procedure: COLONOSCOPY with biopsies; Surgeon: Vikas Martin MD; Location: [facility] OR ??? CYSTECTOMY PILONIDAL N/A 01/09/2020 Procedure: EXCISION, PILONIDAL CYST; Surgeon: Tc Jama MD; Location: [facility] OR ??? ESOPHAGOSCOPY, GASTROSCOPY, DUODENOSCOPY (EGD), COMBINED N/A 02/10/2019 Procedure: ESOPHAGOGASTRODUODENOSCOPY with biopsies; Surgeon: Vikas Martin MD; Location: [facility] OR ??? HC CYSTOURETHROSCOPY 05/04/2005 Cysto and urethral dilation. ??? INCISION AND DRAINAGE SACRAL WOUND, COMBINED N/A 11/28/2019 Procedure: INCISION AND DRAINAGE, pilonidal sinus; Surgeon: Tc Jama MD; Location: [facility] OR ??? INCISION AND DRAINAGE TONSIL, COMBINED 2013 under general anesthesia Family History Problem Relation Age of Onset ??? Genetic Disorder Father ALS ??? No Known Problems Brother ??? Cancer Paternal Grandfather lung ??? Anesthesia Reaction Other Negative Social History Tobacco Use ??? Smoking status: Never Smoker ??? Smokeless tobacco: Never Used ??? Tobacco comment: no smokers in household Substance Use Topics ??? Alcohol use: No Frequency: Never Drinks per session: Patient refused Binge frequency: Never Objective BP 130/82 (BP Location: Right arm, Patient Position: Chair, Cuff Size: Adult Regular) Pulse 115 Temp 98.2 ??F (36.8 ??C) (Oral) Resp 16 Wt 94.3 kg (208 lb) SpO2 97% BMI 31.43 kg/m?? Body mass index is 31.43 kg/m??. Physical Exam Vitals signs reviewed. Constitutional: Appearance: She is not ill-appearing. Cardiovascular: Rate and Rhythm: Normal rate and regular rhythm. Comments: Heart rate: 90 bpm. Pulmonary: Effort: Pulmonary effort is normal. Abdominal: General: There is no distension. Tenderness: There is no abdominal tenderness. There is no right CVA tenderness or left CVA tenderness. Results for orders placed or performed in visit on 05/19/20 (from the past 24 hour(s)) Wet prep Specimen: Vagina Result Value Ref Range Specimen Description Vagina Wet Prep No Trichomonas seen Wet Prep No yeast seen Wet Prep Few Clue cells seen (A) Wet Prep Few WBC'S seen Assessment & Plan BV (bacterial vaginosis) New problem. Start treatment Flagyl. Information reviewed with legal guardian and patient. - metroNIDAZOLE (FLAGYL) 500 MG tablet; Take 1 tablet (500 mg) by mouth 2 times daily Screening for condition Advised that if she is on atypical antipsychotic, should have routine A1c testing minimally every 6 months if no established diagnosis of diabetes mellitus. In addition, additional outpatient management with lipid monitoring. Encouraged outpatient follow-up with her primary care doctor outside of just annual routine preventative exams as she benefits from interval office visits. Recommend scheduling an urgent care follow-up after this visit. - Hemoglobin A1c Dysuria Patient was unable to leave a urine sample while in clinic today. Urine cup given to patient, advised to bring back when sample is obtainable. - UA reflex to Microscopic and Culture - Wet prep Return in about 3 days (around 05/22/2020) for If symptoms do not improve or gets worse.. Lyle Mccabe MD [facility] CULTURAL SERVICE TECHNICIAN documented in this encounter Miscellaneous Notes Addendum Note - Rodrigo Corley - 05/19/2020 1:50 PM AGRICULTURAL SERVICE TECHNICIAN Addended by: RODRIGO CORLEY on: 05/19/2020 05:08 PM Modules accepted: Orders CULTURAL SERVICE TECHNICIAN documented in this encounter Plan of Treatment Not on filedocumented as of this encounter Procedures Procedure Name Priority Date/Time Associated Diagnosis Comme nts HEMOGLOBIN A1C Routine 05/19/2020 2:30 PM Screening for Result s for this AGRICULTURAL SERVICE TECHNICIAN condition procedure are i n the results section. WET PREPARATION Routine 05/19/2020 1:59 PM Dysuria Result s for this AGRICULTURAL SERVICE TECHNICIAN procedure are i n the results section. documented in this encounter Results Hemoglobin A1c (05/19/2020 2:30 PM AGRICULTURAL SERVICE TECHNICIAN) P athologist Signature Hemoglobin A1C 5.1 0 - 5.6 % 05/19/2020 [place] 3:27 PM AGRICULTURAL SERVICE TECHNICIAN [facility] Comment: Normal <5.7% Prediabetes 5.7-6.4% ??Diab etes 6.5% or higher - adopted from ADA consensus guidelines. Specimen Anatomical Collection Method Collection Time Receive d Time (Source) Location / / Volume Laterality Blood specimen 05/19/2020 2:30 PM 020 2:35 (specimen) AGRICULTURAL SERVICE TECHNICIAN PM AGRICULTURAL SERVICE TECHNICIAN Lyle Mccabe MD LAB - BLOOD ORDERABLES Performing Organization Address City/State/ZIP Code Phon e Number [facility] [address] [place] [address] (ABNORMAL) Wet prep (05/19/2020 1:59 PM AGRICULTURAL SERVICE TECHNICIAN) [facility] gist Method Time Signature Specimen Vagina [facility] Wet Prep No Trichomonas 05/19/2020 [place] seen 2:24 PM AGRICULTURAL SERVICE TECHNICIAN [facility] Wet Prep No yeast seen 05/19/2020 [place] 2:24 PM AGRICULTURAL SERVICE TECHNICIAN [facility] Wet Prep Few 05/19/2020 [place] Clue cells seen 2:24 PM AGRICULTURAL SERVICE TECHNICIAN [facility] [place] Wet Prep Few 05/19/2020 [place] WBC'S seen 2:24 PM AGRICULTURAL SERVICE TECHNICIAN [facility] [place] Specimen Anatomical Collection Method Collection Time Receive d Time (Source) Location / / Volume Laterality Specimen from 05/19/2020 1:59 PM 05/19/20 2:04 vagina AGRICULTURAL SERVICE TECHNICIAN PM AGRICULTURAL SERVICE TECHNICIAN (specimen) Lyle Mccabe MD LAB - MICRO GENERAL ORDERABL ES Performing Organization Address City/State/ZIP Code Phon e Number [facility] [address] [place] [address] documented in this encounter Visit Diagnoses Diagnosis BV (bacterial vaginosis) - Primary Vaginitis and vulvovaginitis, unspecifie d Screening for condition Screening for unspecified condition Dysuria Nonspecific finding on examination of ur ine Other nonspecific finding on examination of urine documented in this encounter Additional Health Concerns Assessment Noted Time PHQ-9 Depression Total Score: 7 11/13/2019 11:26 AM CD T documented as of this encounter Care Teams Intern Relationship Specialty Start Date End Date Queta Fritz PCP - General Pediatrics 12/19/15 05/27/20 MD Liza [address] [id number] Queta Fritz Assigned PCP 03/04/14 04/12/21 MD Liza [address] [place] [address] [phone] Tc Jama MD MD Pediatric Surgery 02/14/[address] [place] [address] Tc Jama MD Assigned Pediatric 05/10/20 09/06/21 [address] BEK[address] BLUNT Specialist Provider [address] [place] [address] [phone] documented as of this encounter
--- OUTSIDE RECORDS SUMMARY | 2022-04-23 23:41 | XMS_ITS | Encounter Summary ---
:2002 Author Organization [place] Address [address] [place] [address] Care Team Providers Name Role Phone Queta Fritz MD Primary Care Provider [phone] Queta Fritz MD Unavailable [phone] Tc Jama MD Unavailable Tc Jama MD Unavailable Encounter Details Date Type Department Care Team Description 05/26/2020 Travel Social History Tobacco Use Types Packs/Day [...] do you attend muslim or Never 2018 buddhist services? 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 documented as of this encounter Plan of Treatment Not on filedocumented as of this encounter Visit Diagnoses Not on filedocumented in this encounter Additional Health Concerns Assessment Noted Time PHQ-9 Depression Total Score: 7 11/13/2019 11:26 AM CD T documented as of this encounter Care Teams Facilities Director Relationship Specialty Start Date End Date Queta Fritz PCP - General Pediatrics 12/19/15 05/27/20 MD Liza [address] [place] [address] [phone] Queta Fritz Assigned PCP 03/04/14 04/12/21 MD Liza [address] [place] [address] [phone] Tc Jama MD MD Pediatric Surgery 02/14/20 [facility] [address] [phone] Tc Jama MD Assigned Pediatric 05/10/20 09/06/21 [facility] BEKAH BLUNT Specialist Provider [address] [place] [address] [phone] documented as of this encounter
--- OUTSIDE RECORDS SUMMARY | 2022-04-23 23:41 | XMS_ITS | Encounter Summary ---
:2000 Author Organization [facility] Address [address] [place] [address] Care Team Providers Name Role Phone Queta Fritz MD Primary Care Provider [phone] Queta Fritz MD Unavailable [phone] cT Jama MD Unavailable Reason for Referral Care Coordination (Routine) - Closed Specialty Diagnoses / Procedures Referred By Contact Refer red To Contact Diagnoses Other specified counseling [facility] [address] [place], [place] [phone] Referral ID Status Reason Start Date Expiration Date Visits Requ ested Visits Authorized [id number] Closed 04/01/2020 04/01/2021 1 1 Encounter Details Date Type Department Care Team Description 04/01/2020 Orders Only [facility] Queta Fritz Other specified Care Coordination MD Liza counseling [facility] [address] [place], [place] [address] [place], [place] [phone] (Wo rk) Social History Tobacco Use Types [...] or relatives? How often do you attend jainism or Never 2018 amish services? 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 documented as of this encounter Progress Notes Juana Bragg LGSW - 04/01/2020 8:25 AM CDT Patient identified as high risk for readmission. Patient meets criteria for care coordination outreach. [facility] Senior Technical Program Manager Ph. [phone] [email or web address] documented in this encounter Plan of Treatment Not on filedocumented as of this encounter Visit Diagnoses Diagnosis Other specified counseling documented in this encounter Additional Health Concerns Assessment Noted Time PHQ-9 Depression Total Score: 7 11/13/2019 11:26 AM CD T documented as of this encounter Care Teams Casting Plug Assembler Relationship Specialty Start Date End Date Queta Fritz MD PCP - General Pediatrics 12/19/15 05/27/20 [address] [place] [phone] Queta Fritz MD Assigned PCP 03/04/14 04/12/21 [address] [place] [address] [phone] Tc Jama MD MD Pediatric Surgery 02/14/[address] [place] [phone] documented as of this encounter
--- OUTSIDE RECORDS SUMMARY | 2022-04-23 23:41 | XMS_ITS | Encounter Summary ---
:2000 Author Organization [facility] Address [address] [place] [address] Care Team Providers Name Role Phone Queta Fritz MD Primary Care Provider [phone] Queta Fritz MD Unavailable [phone] Tc Jama MD Unavailable Tc Jama MD Unavailable Encounter Details Date Type Department Care Team Description 05/13/2020 Travel Social History Tobacco Use Types Packs/Day [...] do you attend mandaeism or Never 2018 yarsani services? Do you belong to any clubs [...] at Date Recorded Female 09/04/2021 9:00 PM CAMP COUNSELOR COVID-19 Exposure Response Date Recorded In the last month, have you been in contact with No / Unsure 05/13/2020 1:10 PM CDT someone who was confirmed or suspected to have Coronavirus / COVID-19? documented as of this encounter Plan of Treatment Not on filedocumented as of this encounter Visit Diagnoses Not on filedocumented in this encounter Additional Health Concerns Assessment Noted Time PHQ-9 Depression Total Score: 7 11/13/2019 11:26 AM CD T documented as of this encounter Care Teams Packing Inspector Relationship Specialty Start Date End Date Queta Fritz PCP - General Pediatrics 12/19/15 05/27/20 MD Liza [address] [place] [address] [phone] Queta Fritz Assigned PCP 03/04/14 04/12/21 MD Liza [address] [place] [address] [phone] Tc Jama MD MD Pediatric Surgery 02/14/20 [facility] [address] [phone] Tc Jama MD Assigned Pediatric 05/10/20 09/06/21 [facility] BEKAH BLUNT Specialist Provider [address] [place] [address] [phone] documented as of this encounter
--- OUTSIDE RECORDS SUMMARY | 2022-04-23 23:41 | XMS_ITS | Encounter Summary ---
:2000 Author Organization [facility] Address [address] [place] [address] Care Team Providers Name Role Phone Queta Fritz MD Primary Care Provider [phone] Queta Fritz MD Unavailable [phone] Tc Jama MD Unavailable Tc Jama MD Unavailable Encounter Details Date Type Department Care Team Description 05/20/2020 Orders Only [facility] Non specific finding on [place] [facility] examination of urine [address] [place] [address] Social History Tobacco Use Types Packs/Day Years [...] or relatives? How often do you attend mormon or Never 2018 catholic services? Do you belong to any clubs or No 12/07/2018 organizations such as mormon groups, unions, fraternal or athletic groups, or [...] Date Recorded Female 09/04/2021 9:00 PM SENIOR RELIABILITY ENGINEER COVID-19 Exposure Response Date Recorded In the last month, have you been in contact with No / Unsure 05/20/2020 2:11 PM SENIOR RELIABILITY ENGINEER someone who was confirmed or suspected to have Coronavirus / COVID-19? documented as of this encounter Miscellaneous Notes Addendum Note - Janet Crisostomo - 05/20/2020 1:45 PM SENIOR RELIABILITY ENGINEER Addended by: JANET CRISOSTOMO on: 05/20/2020 02:14 PM Modules accepted: Orders OR RELIABILITY ENGINEER documented in this encounter Plan of Treatment Not on filedocumented as of this encounter Procedures Procedure Name Priority Date/Time Associated Diagnosis Comme nts URINE MICROSCOPIC Routine 05/20/2020 12:59 Nonspecific finding Results for this PM SENIOR RELIABILITY ENGINEER on examination of procedure are in urine the results section. UA MACROSCOPIC WITH Routine 05/20/2020 12:59 Nonspecific findi ng Results for this REFLEX TO PM SENIOR RELIABILITY ENGINEER on examination of procedure are in MICROSCOPIC AND urine the results CULTURE section. documented in this encounter Results (ABNORMAL) Urine Microscopic (05/20/2020 12:59 PM SENIOR RELIABILITY ENGINEER) Analysis Performed At Patho logist Time Signature WBC Urine 0 - 5 OTO5^0 - 5 05/20/2020 [facility] /HPF 2:23 PM SENIOR RELIABILITY ENGINEER [facility] RBC Urine O - 2 OTO2^O - 2 05/20/2020 [facility] /HPF 2:23 PM SENIOR RELIABILITY ENGINEER [facility] Squamous Few FEW^Few 05/20/2020 [facility] Epithelial /LPF /LPF 2:23 PM SENIOR RELIABILITY ENGINEER [facility] Bacteria Urine Few (A) NEG^Negati 05/20/2020 [facility] ve /HPF 2:23 PM SENIOR RELIABILITY ENGINEER [facility] Specimen Anatomical Collection Method Collection Time Receive d Time (Source) Location / / Volume Laterality 05/20/2020 12:59 05/20/2020 2:14 PM SENIOR RELIABILITY ENGINEER PM SENIOR RELIABILITY ENGINEER Lyle Mccabe MD LAB - URINE ORDERABLES Performing Organization Address City/State/ZIP Code Phon e Number [facility] [address] [place], [place] [address] [address] (ABNORMAL) UA reflex to Microscopic and Culture (05/20/2020 12:59 PM SENIOR RELIABILITY ENGINEER) Patholo gist Method Time Signature Color Urine Yellow 05/20/2020 [facility] 2:23 PM [facility] Appearance Urine Clear 05/20/2020 [facility] 2:23 PM SENIOR RELIABILITY ENGINEER [facility] Glucose Urine Negative NEG^Negat 05/20/2020 [facility] eunice mg/dL 2:23 PM [facility] Bilirubin Urine Negative NEG^Negat 05/20/2020 [facility] eunice 2:23 PM [facility] Ketones Urine Negative NEG^Negat 05/20/2020 [facility] eunice mg/dL 2:23 PM [facility] Specific [place] 1.020 1.003 - 05/20/2020 [facility] Urine 1.035 2:23 PM [facility] Blood Urine Negative NEG^Negat 05/20/2020 [facility] eunice 2:23 PM [facility] pH Urine 6.0 5.0 - 7.0 05/20/2020 [facility] pH 2:23 PM [facility] Protein Albumin Negative NEG^Negat 05/20/2020 [facility] Urine eunice mg/dL 2:23 PM [facility] Urobilinogen 0.2 0.2 - 1.0 05/20/2020 [facility] Urine EU/dL 2:23 PM [facility] Nitrite Urine Negative NEG^Negat 05/20/2020 [facility] eunice 2:23 PM [facility] Leukocyte Trace (A) NEG^Negat 05/20/2020 [facility] Esterase Urine eunice 2:23 PM [facility] Source Midstream 05/20/2020 [facility] Urine 2:15 PM [facility] Specimen (Source) Anatomical Collection Method Collection Time Re ceived Time Location / / Volume Laterality Examination of 05/20/2020 12:59 0 2:14 midstream urine PM SENIOR RELIABILITY ENGINEER PM SENIOR RELIABILITY ENGINEER specimen (procedure) Lyle Mccabe MD LAB - URINE ORDERABLES Performing Organization Address City/State/ZIP Code Phon e Number [facility] [address] [place], [place] [address] [address] documented in this encounter Visit Diagnoses Diagnosis Nonspecific finding on examination of ur ine Other nonspecific finding on examination of urine documented in this encounter Additional Health Concerns Assessment Noted Time PHQ-9 Depression Total Score: 7 11/13/2019 11:26 AM CD T documented as of this encounter Care Teams Chief Minister Relationship Specialty Start Date End Date Queta Fritz PCP - General Pediatrics 12/19/15 05/27/20 MD Liza [address] [place], [place] [phone] Queta Fritz Assigned PCP 03/04/14 04/12/21 MD Liza [address] [place], [place] [phone] Tc Jama MD MD Pediatric Surgery 02/14/20 [facility]2 [address] [phone] Tc Jama MD Assigned Pediatric 05/10/20 09/06/21 [facility] BEKAH BLUNT Specialist Provider [address] [place] [address] [phone] documented as of this encounter
--- OUTSIDE RECORDS SUMMARY | 2022-04-23 23:41 | XMS_ITS | Encounter Summary ---
:2002 Author Organization [facility] Address [address] [place] [address] Care Team Providers Name Role Phone Queta Fritz MD Primary Care Provider [phone] Queta Fritz MD Unavailable [phone] Tc Jama MD Unavailable Tc Jama MD Unavailable Encounter Details Date Type Department Care Team Description 05/19/2020 Travel Social History Tobacco Use Types Packs/Day [...] or relatives? How often do you attend yazidism or Never 2018 baptism services? Do you belong to any clubs or No 12/07/2018 organizations such as yazidism groups, unions, fraternal or athletic groups, or [...] at Date Recorded Female 09/04/2021 9:00 PM FOAM DISPENSER COVID-19 Exposure Response Date Recorded In the last month, have you been in contact with No / Unsure 05/19/2020 1:50 PM FOAM DISPENSER someone who was confirmed or suspected to have Coronavirus / COVID-19? documented as of this encounter Plan of Treatment Not on filedocumented as of this encounter Visit Diagnoses Not on filedocumented in this encounter Additional Health Concerns Assessment Noted Time PHQ-9 Depression Total Score: 7 11/13/2019 11:26 AM CD T documented as of this encounter Care Teams Distillation Operator Helper Relationship Specialty Start Date End Date Queta Fritz PCP - General Pediatrics 12/19/15 05/27/20 MD Liza [address] [place] [address] [phone] Queta Fritz Assigned PCP 03/04/14 04/12/21 MD Liza [address] [place] [address] [phone] Tc Jama MD MD Pediatric Surgery 02/14/20 [facility]2 [address] [phone] Tc Jama MD Assigned Pediatric 05/10/20 09/06/21 [facility] BEKAH BLUNT Specialist Provider [address] [place] [address] [phone] documented as of this encounter
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
--- OUTSIDE RECORDS SUMMARY | 2022-04-23 23:41 | XMS_ITS | Encounter Summary ---
:2002 Author Organization [facility] Address [address] [place] [address] Care Team Providers Name Role Phone Queta Fritz MD Primary Care Provider [phone] Queta Fritz MD Unavailable [phone] Tc Jama MD Unavailable Tc Jama MD Unavailable Encounter Details Date Type Department Care Team Description 05/22/2020 Travel Social History Tobacco Use Types Packs/Day [...] or relatives? How often do you attend nondenominational or Never 2018 restoration services? Do you belong to any clubs or No 12/07/2018 organizations such as nondenominational groups, unions, fraternal or athletic groups, or [...] at Date Recorded Female 09/04/2021 9:00 PM LINEN MANAGER COVID-19 Exposure Response Date Recorded In the last month, have you been in contact with No / Unsure 05/22/2020 1:47 PM LINEN MANAGER someone who was confirmed or suspected to have Coronavirus / COVID-19? documented as of this encounter Plan of Treatment Not on filedocumented as of this encounter Visit Diagnoses Not on filedocumented in this encounter Additional Health Concerns Assessment Noted Time PHQ-9 Depression Total Score: 7 11/13/2019 11:26 AM CD T documented as of this encounter Care Teams News Producer Relationship Specialty Start Date End Date Queta Fritz PCP - General Pediatrics 12/19/15 05/27/20 MD L[facility] [address] [place] [address] [phone] Queta Fritz Assigned PCP 03/04/14 04/12/21 MD Liza [address] [place] [address] [phone] Tc Jama MD MD Pediatric Surgery 02/14/20 [facility] [address] [phone] Tc Jama MD Assigned Pediatric 05/10/20 09/06/21 [facility] BEAKH BLUNT Specialist Provider [address] [place] [address] [phone] documented as of this encounter
--- OUTSIDE RECORDS SUMMARY | 2022-04-23 23:41 | XMS_ITS | Encounter Summary ---
:2002 Author Organization [facility] Address [address] [place] [address]. [place] [address] Care Team Providers Name Role Phone Queta Fritz MD Primary Care Provider [phone] Queta Fritz MD Unavailable [phone] Tc Jama MD Unavailable Tc Jama MD Unavailable Reason for Visit Reason Comments RECHECK Encounter Details Date Type Department Care Team Description 05/22/2020 Office Visit [facility] Tc Jama MD [address] [address] Pilonidal cyst Discovery Pediatric Norma Ruggiero, BORDER INSPECTOR CREDIT COUNSELOR [address] [facility] [address] [place] [address] (Primary Dx) Specialty Clinic [address] [place] [address], [address] [place] [phone] Social History Tobacco Use Types Packs/Day Years [...] do you attend yarsanism or Never 2018 mandaen services? Do you [...] at Date Recorded Female 09/04/2021 9:00 PM PER DIEM RN COVID-19 Exposure Response Date Recorded In the last month, have you been in contact with No / Unsure 05/26/2020 8:53 PM PER DIEM RN someone who was confirmed or suspected to have Coronavirus / COVID-19? documented as of this encounter Last Filed Vital Signs Vital Sign Reading Time Taken Comments Blood Pressure 146/83 05/22/2020 1:54 PM PER DIEM RN Pulse 102 05/22/2020 1:54 PM PER DIEM RN Temperature - - Respiratory Rate - - Oxygen Saturation - - Inhaled Oxygen Concentration - - Weight 95.9 kg (211 lb 6.7 oz) 05/22/2020 1:54 PM PER DIEM RN Height 173.3 cm (5' 8.23) 05/22/2020 1:54 PM PER DIEM RN Body Mass Index 31.93 05/22/2020 1:54 PM PER DIEM RN Body Mass Index Percentile 96.27 % 05/22/2020 1:54 PM CS T Growth Chart: CDC (Girls, 2-20 Years) documented in this encounter Patient Instructions Patient InstructionsNorma Ruggiero APRN CNP - 05/22/2020 1:45 PM PER DIEM RN Follow up as needed with Dr. Jama DIEM RN documented in this encounter Progress Notes Norma Ruggiero APRN CNP - 05/22/2020 1:45 PM CST May 22, 2020 Queta Fritz MD [address], [address] [place] [address] RE: Mahi Faye : [address] Fritz: It was a pleasure to see your patient, Mahi, in the Pediatric Surgery Clinic at the [facility]. As you recall, Mahi is an 20-year-old female with a history of pilonidal disease. On review with Mahi, she has undergone excision of a pilonidal cyst and had a loop drain placed in the past. This ultimately healed up nicely. However, today Mahi returns to clinic stating approximately 1 week ago she had some pain in her sacral area and had some bloody drainage out from her previous pilonidal cyst. She reports that she has not had any drainage out since that time and she also reports that she occasionally will pull hair from her gluteal cleft. On exam, Mahi's gluteal cleft has a well-healed incision from her previous pilonidal cyst excision. At the very inferior aspect, there is a small pinpoint hole. I can see a hair poking out of there that was removed. On palpation, there is no drainage from this area and no complaints of pain from Mahi today. I did take a silver nitrate stick and treat this very small opening with silver nitrate today. Mahi tolerated that well. I have encouraged her to continue her daily showering. It is okayfor her to swim in a swimming pool and a ride her bike as she pleases. She will give us a call and let us know if she has any renewed symptoms. Thank you, Dr. Fritz, for allowing us to participate in the care of your patient, Mahi. It was a pleasure to see her in clinic today. I did speak with Mahi's mother, who is her guardian, after the visit for an update and she will keep us apprised of Mahi's progress. Sincerely, Norma Ruggiero APRN, CREDIT COUNSELOR Pediatric Surgery [facility] DIEM RN documented in this encounter Nursing Notes Wanda Kwong, ARACELY - 05/22/2020 1:45 PM CST [facility] [[id number]] Chief Complaint Patient presents with ??? RECHECK Initial BP (!) 146/83 (BP Location: Right arm, Patient Position: Sitting, Cuff Size: Adult Large) Pulse 102 Ht 5' 8.23 (173.3 cm) Wt 211 lb 6.7 oz (95.9 kg) BMI 31.93 kg/m?? Estimated body mass index is 31.93 kg/m?? as calculated from the following: Height as of this encounter: 5' 8.23 (173.3 cm). Weight as of this encounter: 211 lb 6.7 oz (95.9 kg). Medication Reconciliation: complete DIEM RN documented in this encounter Plan of Treatment Not on filedocumented as of this encounter Visit Diagnoses Diagnosis Pilonidal cyst - Primary Pilonidal cyst without mention of absces s documented in this encounter Additional Health Concerns Assessment Noted Time PHQ-9 Depression Total Score: 7 11/13/2019 11:26 AM CD T documented as of this encounter Care Teams Edi Architect Relationship Specialty Start Date End Date Queta Fritz PCP - General Pediatrics 12/19/15 05/27/20 MD [facility] [address] [place] [address] [phone] Queta Fritz Assigned PCP 03/04/14 04/12/21 MD L[facility] [address] [place] [address] [phone] Tc Jama MD MD Pediatric Surgery 02/14/20 [address] [place] [address] [phone] Tc Jama MD Assigned Pediatric 05/10/20 09/06/21 2450 BEKAH BLUNT Specialist Provider [address] [place] [address] [phone] documented as of this encounter
--- OUTSIDE RECORDS SUMMARY | 2022-04-23 23:41 | XMS_ITS | Encounter Summary ---
:2000 Author Organization [facility] Address [address] [place] [address] Care Team Providers Name Role Phone Queta Fritz MD Primary Care Provider [phone] Queta Fritz MD Unavailable [phone] Tc Jama MD Unavailable Tc Jama MD Unavailable Khalida Beyer MD Primary Care Provider Rosario Noe APRN CNM Unavailable [phone] Eda Duarte MD Unavailable Mike Sherwood MD Unavailable [phone] Navid Paige MD Unavailable Norma Ruggiero APRN RUNNING RIGGER Unavailable [phone] Queta Fritz MD Unavailable [phone] Norma Ruggiero APRN RUNNING RIGGER Unavailable [phone] No Ref-Primary, Physician Primary Care Provider [phone] Alber Estrada PA-C Unavailable [phone] Encounter Details Date Type Department Care Team Description 05/27/2020 Telephone Who is Undercover [employer] [facility] Generic, [facility] In eloisa Carbone MD [address] [place] [address] Social History Tobacco Use Types Packs/Day [...] or relatives? How often do you attend anglican or Never 2018 yarsanism services? Do you belong to any clubs or No 12/07/2018 organizations such as anglican groups, unions, fraternal or athletic groups, or [...] at Date Recorded Female 09/04/2021 9:00 PM PRODUCTION GENERALIST COVID-19 Exposure Response Date Recorded In the last month, have you been in contact with No / Unsure 05/28/2020 2:31 AM PRODUCTION GENERALIST someone who was confirmed or suspected to have Coronavirus / COVID-19? documented as of this encounter Miscellaneous Notes Telephone Encounter - Rod Cho - 05/27/2020 4:25 PM CST Update: COVID is negative. Utox is negative. HCG is negative. Per previous discharge note, Pt has dx of Borderline Intellectual Functioning [id number]. She was on 7a in February 2020. 4:18PM- called [facility] ED to request 72 hour hold. TECHNICAL ARCHITECT will fax to Intake. 6:03PM- Dr. Olivares accepts for 4A/[place]. Unit and ED notified. 72 hr hold received. Faxed to unit. UCTION GENERALIST documented in this encounter Plan of Treatment Not on filedocumented as of this encounter Visit Diagnoses Not on filedocumented in this encounter Additional Health Concerns Infection Onset Date Last Indicated Resolved Time Rule Out COVID-19 06/07/2020 06/07/2020 06/08/2020 7:3 4 PM PRODUCTION GENERALIST Rule Out COVID-19 08/23/2021 08/23/2021 08/23/2021 9:1 7 PM PRODUCTION GENERALIST Rule Out COVID-19 04/21/2022 04/21/2022 04/21/2022 8:5 7 PM CDT Assessment Noted Time PHQ-9 Depression Total Score: 7 11/13/2019 11:26 AM CD T documented as of this encounter Care Teams Ham Marker Relationship Specialty Start Date End Date Queta Fritz PCP - General Pediatrics 12/19/15 05/27/20 MD Liza [address] [place] [address] Khalida Beyer MD PCP - General Psychiatry 05/28/20 08/22/21 No Ref-Primary, PCP - General 08/23/21 Physician Queta Fritz Assigned PCP 03/04/14 04/12/21 MD Liza [address] [facility] [address] [place] [address] Tc Jama MD Pediatric Surgery 02/14/[address] [place] [address] Tc Jama, Assigned Pediatric 05/10/20 MD Specialist Provider [address] [place] [address] Rosario Noe, Assigned OBGYN Provider 07/21/20 01/16/22 RECONCILIATION ANALYST CNM [address] [place] [address] Eda Duarte Assigned Surgical Provider 10/02/20 MD Alex [address] [facility] [address] [place] [address] Mike Sherwood Assigned Sleep Provider 01/31/21 MD Navid [address] [place] [address] Navid Paige MD Assigned Musculoskeletal 03/16/21 [address] [place], [place] [id number] Norma Ruggiero, Assigned PCP 04/13/21 05/24/21 RECONCILIATION ANALYST RUNNING RIGGER [address] [place], [place] [id number] Queta Fritz Assigned PCP 05/25/21 07/26/21 MD Liza [address] [facility] [address] [place], [place] [id number] Norma Ruggiero, Assigned PCP 07/27/21 09/06/21 RECONCILIATION ANALYST RUNNING RIGGER [address] [place], [place] [id number] Alber Estrada Assigned PCP 09/07/21 KARIN Lagunas [address] [place], [place] [id number] documented as of this encounter
--- OUTSIDE RECORDS SUMMARY | 2022-04-23 23:41 | XMS_ITS | Encounter Summary ---
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 Discharge plan or goal: Discharge home on with current outpatient services. Mom will pick pt up at 6pm. Barriers to discharge: Barriers in current services getting started back up. ORTHINESS INSPECTOR Sue Odom RN - 06/04/2020 1:25 PM CST [facility] ED was called regarding status of belongings and clothing (did come to [facility]A with them). This was a second call placed. They did not have them. ORTHINESS INSPECTOR Meera Powell APRN CNS - 06/04/2020 8:42 AM CST [facility], [place] Psychiatric Progress Note Interim History: The patient's care was discussed with the treatment team during the daily team meeting and/or staff's chart notes were reviewed. Staff report patient is visible in the milieu. Patient argued with her mother on the phone last night and bit herself after the conversation . Patient has low frustration tolerance and poor coping skills. Psychiatric symptoms and interventions: Provider and CTC has met with patient explaining that she will discharge on . Kurt was resistant saying she wanted to live with her boyfriend. Explained to patient she will discharge to home per her guardian 's directive. Patient said she bit her herself yesterday after a conversation with mother about discharge on . Patient reported she apologized to her mother because she yelled at her. Patient has poor copingskills and low frustration tolerance. She will need support in the home. MOther reports an [facility] worker will be available. CTC conference called with CM and mother who is guardian reports that services in the home will not be available until Wednesday. Patient will discharge on . ?? No med changes Medical:?Chromosomal abnormalities, congenital atresia and stenosis of urethra. ??The patient does not have a history of seizures, traumatic brain injury or concussions. ??Reviewed admission labs. ??COVID screen is negative. ??HCG is negative.??CMP WNL except albumin 2.9 low, protein 6.7 low, TSH 2.68 WNL, glucose 80, hemoglobin 11.1 low, hematocrit 34.8 low, MCH 25.8 low ?? Behavioral/psychological/social: Encouraged patient to attend therapeutic hospital programming as tolerated Medications: ??? levonorgestrel-ethinyl estradiol 1 tablet Oral Daily ??? QUEtiapine 300 mg Oral At Bedtime ??? Vitamin D3 25 mcg Oral Daily Allergies: Allergies Allergen Reactions ??? Nkda [No Known Drug Allergies] Labs: No results found for this or any previous visit (from the past 24 hour(s)). Psychiatric Examination: BP (!) 144/94 Pulse 83 Temp 98.1 ??F (36.7 ??C) (Oral) Resp 16 Ht 1.537 m (5' 0.5) Wt 94.6 kg (208 lb 8 oz) SpO2 99% BMI 40.05 kg/m?? Weight is 208 lbs 8 oz Body mass index is 40.05 kg/m??. Orthostatic Vitals Most Recent Sitting Orthostatic BP 118/56 06/03 0700 Sitting Orthostatic Pulse (bpm) 109 06/03 0700 Standing Orthostatic BP 111/45 06/03 0700 Standing Orthostatic Pulse (bpm) 106 06/03 0700 Appearance: awake, alert, adequately groomed and dressed in hospital scrubs Attitude: cooperative Eye Contact: good Mood: better Affect: labile, patient has high reactivity when she gets an answer that she does not agree with, Last night she bit herself after conversation with mother. Speech: clear, coherent Psychomotor Behavior: no evidence of tardive dyskinesia, dystonia, or tics Throught Process: linear Associations: no loose associations Thought Content: no evidence of suicidal ideation or homicidal ideation Insight: limitedconcrete thinking Judgement: limited Oriented to: time, person, and place Attention Span and Concentration: fair Recent and Remote Memory: intact Clinical Global Impressions First: Most recent: Precautions: Behavioral Orders Procedures ??? Assault precautions History of aggression towards mother. ??? Code 1 - Restrict to Unit ??? Routine Programming As clinically indicated ??? Self Injury Precaution Pt has superficial cuts on her wrists ??? Status 15 Every 15 minutes. ??? Suicide precautions Patients on Suicide Precautions should have a Combination Diet ordered that includes a Diet selection(s) AND a Behavioral Tray selection for Safe Tray - with utensils, or Safe Tray - NO utensils -Suicidal ideation DIagnoses: 1. ??Adjustment disorder with disturbance of mood and conduct. 2. ??History of borderline intellectual functioning. ??Full scale IQ is 70. 3. ??History of general anxiety disorder. 4. ??History of major depressive disorder, moderate. 5. ??History of learning disorders. 6. ??Chromosomal abnormalities.?? Plan: Legal status: Guardian signed patient in voluntarily. ? Medication management: Continue Nordette, Seroquel and Vitamin D. Discussed with guardian on 05/28 ?? Disposition plan: Reason for continued hospitalization: Patient is making homicidal statements towards her family. Stabilize with medications Return to home on . CM, guardian, CTC and provider are all in agreement with plan. No meds to order. ? CONSENT FOR TELEMEDICINE VISIT: ??The patient's condition can be safely assessed and treated via synchronous audio and visual telemedicine encounter. ?? START TIME: ??11:38 am ?? STOP TIME: ??11:45 am ?? REASON FOR TELEMEDICINE VISIT: ??COVID-19. ?? ORIGINATING SITE (PATIENT LOCATION): ??[facility], [address]. ?? DISTANT SITE (PROVIDER LOCATION): ??Provider in remote setting. ?? CONSENT: ??The patient/guardian has verbally consented to potential risks and benefits of telemedicine (video visit) versus in-person care, bill my insurance or make self-payment for services provided,and responsibility for payment of noncovered services. ?? MODE OF COMMUNICATION: ??Video conference via [employer]. ?? As the provider, I attest to compliance with applicable laws and regulations related to telemedicine.? ORTHINESS INSPECTOR Guillaume Hernandez RN - 06/04/2020 7:13 AM CST Patient slept all night long without waking up. No other concerns at this time. Betito Gonzalez - 06/03/2020 11:11 PM CST 06/03/20 2200 Group Therapy Session Group Attendance attended group session Time Session Began 2014 Time Session Ended 2114 Total Time (minutes) ?? (1 hour) Group Type expressive therapy Group Topic Covered other (see comments) (Trauma containment- safe place and gratitude) The Psychotherapy group goal is to promote insight to positive choice and change. Group processing is within a supportive and safe environment. Patients will process emotions using verbal group and expressive psychotherapy interventions including visual art/writing interventions. ?? Group interventions support patients by : cultivating resilience, fostering self awareness, self expression, self esteem and self compassion. Groups will provide tools to encourage self and others in group, to practice communication/ social skills and supports, learn positive coping mechanisms, self efficacy, conflict resolution, empowerment, optimism ,hope , understanding ones emotions,and a sense of self and community. Tools will be provided to manage life stressors and individual's diagnosis ?? Modalities to reach these goals include: positive and solution focused psychology, CBT, DBT, ACT, Narrative psychology, Adlerian psychology, FLOW, Expressive Arts Continuum Therapies( Art Therapy) and Mindfulness based directives and discussions. ? Subjective -patient report of mood today-happy ?? Objective/ Intervention- Goal of group and Therapeutic modality utilized-Trauma containment- safe place and gratitude ?? Group Response-engaged ?? Patient Response-engaged. She did two thoughtful paintings One of a sunset and one of a replication of the two paint palettes she was working with. She made little squares with all of the colors and the order the colors were in on the palettes handbook writer believes. She also tried splattering on her painting a a technique and was helpful in cleaning up her space. She was calm.Pt was pleasant and cooperative. ? Betito Getsug, COLLET MAKING MACHINE OPERATOR, ATR ?? ORTHINESS INSPECTOR Fang Rodriges LMFT - 06/03/2020 2:58 PM CST Work Completed: Attended team. CTC spoke with pt about discharge planning. CTC and pt discussed coping strategies, concerns at home and barriers to engaging in coping skills in the moment. Pt asked CTCto tell her mom about her coping skills when she calls to speak with her about discharge. CTC calledpt's mom and left a VM requesting callback. CTC received a phone call from pt's Aircraft Mechanic, Hermelinda and her mom (conference call) to discuss discharged. CM and pt's mom (legal guardian) asked if pt could discharge on . They said she won???t have any services until Wednesday when her skills workercomes and that mom needs to get the house ready for her. Aircraft Mechanic feels that if she discharges tomorrow she would just struggle right away due to lack of structure and support and would ended up back in the hospital. [facility] emailed provider about this request/concern for discharge. Provider was ok with keeping pt till so that services would be in place. [facility] updated CM who will update pt's mom/legal guardian. Discharge plan or goal: Home with current services. Pt will discharge to home. Barriers to discharge: Safety and support at home. Need to have services in place prior to discharge or likelihood of re-admittance is very high. Meera Alcala APRN CNS - 06/03/2020 8:46 AM CST [facility], [place] Psychiatric Progress Note Interim History: The patient's care was discussed with the treatment team during the daily team meeting and/or staff's chart notes were reviewed. Staff report patient is visible in the milieu and attends groups. Psychiatric symptoms and interventions: Patient reports she is no longer mad at my mom. She called her Wednesday after talking with provider. Patient states she no longer wants to kill myself or my mother. I was confused. I thought my mother was mad at me. Patient states she wants to return to home and spend Thanksgiving with her family. CTC conference called with CM and mother who is guardian reports that services in the home will not be available until Wednesday. Patient will discharge on . No med changes Medical:?Chromosomal abnormalities, congenital atresia and stenosis of urethra. ??The patient does not have a history of seizures, traumatic brain injury or concussions. ??Reviewed admission labs. ??COVID screen is negative. ??HCG is negative.??CMP WNL except albumin 2.9 low, protein 6.7 low, TSH 2.68 WNL, glucose 80, hemoglobin 11.1 low, hematocrit 34.8 low, MCH 25.8 low ?? Behavioral/psychological/social: Encouraged patient to attend therapeutic hospital programming as tolerated ?? Medications: ??? levonorgestrel-ethinyl estradiol 1 tablet Oral Daily ??? QUEtiapine 300 mg Oral At Bedtime ??? Vitamin D3 25 mcg Oral Daily Allergies: Allergies Allergen Reactions ??? Nkda [No Known Drug Allergies] Labs: No results found for this or any previous visit (from the past 24 hour(s)). Psychiatric Examination: BP 118/56 Pulse 109 Temp 97.2 ??F (36.2 ??C) (Oral) Resp 16 Ht 1.537 m (5' 0.5) Wt 94.6 kg (208 lb 8 oz) SpO2 98% BMI 40.05 kg/m?? Weight is 208 lbs 8 oz Body mass index is 40.05 kg/m??. Orthostatic Vitals Most Recent Sitting Orthostatic BP 118/56 06/03 0700 Sitting Orthostatic Pulse (bpm) 109 06/03 0700 Standing Orthostatic BP 111/45 06/03 0700 Standing Orthostatic Pulse (bpm) 106 06/03 0700 Appearance: awake, alert, adequately groomed and dressed in hospital scrubs Attitude: cooperative Eye Contact: good Mood: better Affect: appropriate and in normal range Speech: clear, coherent Psychomotor Behavior: no evidence of tardive dyskinesia, dystonia, or tics Throught Process: linear Associations: no loose associations Thought Content: no evidence of suicidal ideation or homicidal ideation Insight: limitedconcrete thinking Judgement: limited Oriented to: time, person, and place Attention Span and Concentration: fair Recent and Remote Memory: intact Clinical Global Impressions First: Most recent: Precautions: Behavioral Orders Procedures ??? Assault precautions History of aggression towards mother. ??? Code 1 - Restrict to Unit ??? Routine Programming As clinically indicated ??? Self Injury Precaution Pt has superficial cuts on her wrists ??? Status 15 Every 15 minutes. ??? Suicide precautions Patients on Suicide Precautions should have a Combination Diet ordered that includes a Diet selection(s) AND a Behavioral Tray selection for Safe Tray - with utensils, or Safe Tray - NO utensils -Suicidal ideation DIagnoses: 1. ??Adjustment disorder with disturbance of mood and conduct. 2. ??History of borderline intellectual functioning. ??Full scale IQ is 70. 3. ??History of general anxiety disorder. 4. ??History of major depressive disorder, moderate. 5. ??History of learning disorders. 6. ??Chromosomal abnormalities.? Plan: Legal status: Guardian signed patient in voluntarily. ? Medication management: Continue Nordette, Seroquel and Vitamin D. Discussed with guardian on 05/28 ?? Disposition plan: Reason for continued hospitalization: Patient is making homicidal statements towards her family. Stabilize with medications Return to home. CM will talk with patient about expectations when she return to home.? CONSENT FOR TELEMEDICINE VISIT: ??The patient's condition can be safely assessed and treated via synchronous audio and visual telemedicine encounter. ?? START TIME: ??11:50 am STOP TIME: ??12:00 pm ?? REASON FOR TELEMEDICINE VISIT: ??COVID-19. ?? ORIGINATING SITE (PATIENT LOCATION): ??[facility], [address]. ?? DISTANT SITE (PROVIDER LOCATION): ??Provider in remote setting. ?? CONSENT: ??The patient/guardian has verbally consented to potential risks and benefits of telemedicine (video visit) versus in-person care, bill my insurance or make self-payment for services provided,and responsibility for payment of noncovered services. ?? MODE OF COMMUNICATION: ??Video conference via [employer]. ?? As the provider, I attest to compliance with applicable laws and regulations related to telemedicine.? ORTHINESS INSPECTOR Guillaume Hernandez RN - 06/03/2020 6:15 AM CST Patient slept all night long without waking up. No other concerns at this time. Guillaume Muhammad RN - 06/02/2020 6:14 AM CST Patient was awake in room at the beginning of the shift and fell asleep at 0100. At 0230 patient wasobserved up in room making her bed and went to bed after that. No other concerns at this time. Betito Gonzalez - 06/01/2020 11:15 PM CST 06/01/20 2100 PsychoTherapy Type of Intervention structured groups Response Participated with encouragement Hours 1 Treatment Detail ?? (Psychotherapy- CBT challenging negative thoughts) The ??Psychotherapy group goal is to promote insight to positive choice and change. Group processingis within a supportive and safe environment. Patients will process emotions using verbal group and expressive psychotherapy interventions including visual art/writing interventions. ?? Group interventions support patients by : cultivating resilience, fostering self awareness, self expression, self esteem and self compassion. ??Groups will provide tools to encourage self and others ingroup, to practice communication/ social skills and supports, learn positive coping mechanisms, selfefficacy, conflict resolution, empowerment, optimism ,hope , understanding ones emotions,and a senseof self and community. ??Tools will be provided to manage life stressors ??and individual's diagnosis ?? Modalities to reach these goals include: positive and solution focused psychology, CBT, DBT, ACT, Narrative psychology, Adlerian psychology, FLOW, Expressive Arts Continuum Therapies( Art Therapy) and Mindfulness based directives and discussions. ?Subjective -patient report of mood today-Happy ?? Objective/ Intervention- Goal of group and Therapeutic modality utilized-CBT- challenging negative thinking. ?? Group Response-Engaged ?? Patient Response-pt was engaged. She started out saying I have made no positive choices, I'll haveto go back to when I was 6 or 7 years old. She then quietly made a very long list of positive things she has done. She said something about that she was joking and wanted to surprise handbook writer. She alsomade a thoughtful colorful abstract image with colored pencil. Pt was calmer and not as loud and interrupting as in previous groups.Pt did well in group, she was pleasant and cooperative. MINA Pham, ATR ? Guillaume Muhmamad RN - 06/01/2020 2:22 AM CST 0220--Patient was observed sitting on the bed and appeared to be having a conversation with someone though she was a lone in the room. This lasted for less than a minute and patient laid back down and continued sleeping. It appears patient was dreaming. Apart from this one incident patient slept all night long. Fang Flowers LMFT - 05/31/2020 2:51 PM CST Work Completed: Attended team. Reviewed Chart. Discharge plan or goal: Home or crisis bed with current services Barriers to discharge: Pt was making SI and HI threats and refusing to go home, stating she would run away or kill herself and then her mom. Meera Alcala APRN CNS - 05/31/2020 9:02 AM CST [facility], [place] Psychiatric Progress Note Interim History: The patient's care was discussed with the treatment team during the daily team meeting and/or staff's chart notes were reviewed. Staff report patient has been visible in the milieu and goes to groups. She has been cooperative with her medications and has been in behavior control while in groups. Psychiatric symptoms and interventions: Patient attends groups, interacts with staff and has been cooperative. She becomes dysregulated whentalking about discharge. Patient reports she does not want to go home. She she's if she is forced to go home she will kill herself or her mother. She deneis suicidal ideation except when talking about discharge. It appears she is using SI as a barrier to returning to home. Patient has been cooperative with her medications. Medical:?Chromosomal abnormalities, congenital atresia and stenosis of urethra. ??The patient does not have a history of seizures, traumatic brain injury or concussions. ??Reviewed admission labs. ??COVID screen is negative. ??HCG is negative.??CMP WNL except albumin 2.9 low, protein 6.7 low, TSH 2.68 WNL, glucose 80, hemoglobin 11.1 low, hematocrit 34.8 low, MCH 25.8 low ?? Behavioral/psychological/social: Encouraged patient to attend therapeutic hospital programming as tolerated Medications: ??? levonorgestrel-ethinyl estradiol 1 tablet Oral Daily ??? QUEtiapine 300 mg Oral At Bedtime ??? Vitamin D3 25 mcg Oral Daily Allergies: Allergies Allergen Reactions ??? Nkda [No Known Drug Allergies] Labs: No results found for this or any previous visit (from the past 24 hour(s)). Psychiatric Examination: BP 132/67 Pulse 95 Temp 97.5 ??F (36.4 ??C) (Oral) Resp 16 Ht 1.537 m (5' 0.5) Wt 94.6 kg(208 lb 8 oz) SpO2 97% BMI 40.05 kg/m?? Weight is 208 lbs 8 oz Body mass index is 40.05 kg/m??. Orthostatic Vitals Most Recent Sitting Orthostatic BP 126/89 05/30 1648 Sitting Orthostatic Pulse (bpm) 71 05/30 1648 Standing Orthostatic BP 104/74 05/31 0850 Standing Orthostatic Pulse (bpm) 94 05/31 0850 Appearance:??awake, alert, adequately groomed and dressed in hospital scrubs Attitude:?cooperative Eye Contact:?good Mood:?angry and anxious Affect:?intensity is heightened Speech:?normal prosody Psychomotor Behavior:?no evidence of tardive dyskinesia, dystonia, or tics Throught Process:?linear, Patient is a concrete thinker Patient will get stuck on ideas and findsit hard to move on . She exhibits cognitive inflexibility. . Associations:?no loose associations Thought Content:?Patient reports wanting to harm her family. She had a diffcult conversation withfamily and afterwards reported suicidal ideaiton. She also wnated to harm them. ??She does not feel she is being listened to, by her family. Insight:?limited Judgement:?limited Oriented to:?time, person, and place Attention Span and Concentration:?limited Recent and Remote Memory:?fair Clinical Global Impressions First: Most recent: Precautions: Behavioral Orders Procedures ??? Assault precautions History of aggression towards mother. ??? Code 1 - Restrict to Unit ??? Routine Programming As clinically indicated ??? Self Injury Precaution Pt has superficial cuts on her wrists ??? Status 15 Every 15 minutes. ??? Suicide precautions Patients on Suicide Precautions should have a Combination Diet ordered that includes a Diet selection(s) AND a Behavioral Tray selection for Safe Tray - with utensils, or Safe Tray - NO utensils -Suicidal ideation DIagnoses: 1. ??Adjustment disorder with disturbance of mood and conduct. 2. ??History of borderline intellectual functioning. ??Full scale IQ is 70. 3. ??History of general anxiety disorder. 4. ??History of major depressive disorder, moderate. 5. ??History of learning disorders. 6. ??Chromosomal abnormalities.? Plan: Legal status: Guardian signed patient in voluntarily. ? Medication management: Continue Nordette, Seroquel and Vitamin D. Discussed with guardian on 05/28 ?? Disposition plan: Reason for continued hospitalization: Patient is making homicidal statements towards her family. Stabilize with medications Return to home. CM will talk with patient about expectations when she return to home.? CONSENT FOR TELEMEDICINE VISIT: ??The patient's condition can be safely assessed and treated via synchronous audio and visual telemedicine encounter. ?? START TIME: ??11:16 am STOP TIME: ??11:25 am ?? REASON FOR TELEMEDICINE VISIT: ??COVID-19. ?? ORIGINATING SITE (PATIENT LOCATION): ??[facility], [address]. ?? DISTANT SITE (PROVIDER LOCATION): ??Provider in remote setting. ?? CONSENT: ??The patient/guardian has verbally consented to potential risks and benefits of telemedicine (video visit) versus in-person care, bill my insurance or make self-payment for services provided,and responsibility for payment of noncovered services. ?? MODE OF COMMUNICATION: ??Video conference via [employer]. ?? As the provider, I attest to compliance with applicable laws and regulations related to telemedicine.? ORTHINESS INSPECTOR Guillaume Hernandez RN - 05/31/2020 6:13 AM CST Patient had a good night sleep and slept through out the NOC shift without interruptions. No concerns at this time. ORTHINESS INSPECTOR Meera Powell APRN CNS - 05/30/2020 5:22 PM CST [facility], [place] Psychiatric Progress Note Interim History: The patient's care was discussed with the treatment team during the daily team meeting and/or staff's chart notes were reviewed. Staff report patient had a difficult conversation with her CM. After theconversation patient bit herself. Psychiatric symptoms and interventions: Patient reports if she goes home tomorrow she will kill herself and her mother. Patient is triggeredby her family especially her mother. Patient reports she has not spoken with her mother since being in the hospital. Patient goes to groups. She is smiling and cooperative. In group staff is helping her with coping skills to manage her frustration. Medical: ??Chromosomal abnormalities, congenital atresia and stenosis of urethra. ??The patient doesnot have a history of seizures, traumatic brain injury or concussions. ??Reviewed admission labs. ??COVID screen is negative. ??HCG is negative. CMP WNL except albumin 2.9 low, protein 6.7 low, TSH 2.68 WNL, glucose 80, hemoglobin 11.1 low, hematocrit 34.8 low, MCH 25.8 low ?? Behavioral/psychological/social: Encouraged patient to attend therapeutic hospital programming as tolerated. Medications: ??? levonorgestrel-ethinyl estradiol 1 tablet Oral Daily ??? QUEtiapine 300 mg Oral At Bedtime ??? Vitamin D3 25 mcg Oral Daily Allergies: Allergies Allergen Reactions ??? Nkda [No Known Drug Allergies] Labs: No results found for this or any previous visit (from the past 24 hour(s)). Psychiatric Examination: BP 126/89 Pulse 71 Temp 97.6 ??F (36.4 ??C) (Oral) Resp 16 Ht 1.537 m (5' 0.5) Wt 94.6 kg(208 lb 8 oz) SpO2 100% BMI 40.05 kg/m?? Weight is 208 lbs 8 oz Body mass index is 40.05 kg/m??. Orthostatic Vitals Most Recent Sitting Orthostatic BP 126/89 11 1648 Sitting Orthostatic Pulse (bpm) 71 11/12 1648 Standing Orthostatic BP 125/87 05/30 0900 Standing Orthostatic Pulse (bpm) 119 / 0900 Appearance: awake, alert, adequately groomed and dressed in hospital scrubs Attitude: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 symptoms to demonstrate increased readiness for discharge. Pt attended discussion and hands-on activity focused on identifying current struggles with time management and how that relates to mental health symptoms. The focus was also on possible skills and strategies one might use to improve time management skills. Pt contributed one skill she may try to use from a given list don't waste time on minor decisions, following the lead of another peer. Pt completed the hands-on activity but needed frequent reassurance and assistance: creating and laminating a white board daily digital media planner to encourage goal-setting, routine, and time management. Pt is very concretein her thinking. Bright affect, smiling and laughing with her peers. Pt appears to be at functional baseline at this time. ORTHINESS INSPECTOR Plan of Care - Diane Monroy RN - 05/30/2020 9:30 AM CST Pt was on the phone upset and swearing making statements like I doesn't matter if I kill myself or not and statements about standing in the road until someone kills me. Another peer on unit was upset with her conversation so handbook writer asked her to stop swearing and pt states I can swear if I want to. Pt did not swear after that but continued in a heated conversation. Tube Teller asked pt if she would like her breakfast and pt states No I am not going to eat it, it is gross and I would rather starve todeath. Pt than walks away back to her room stating It doesn't matter if I hurt myself or not. Pt went to room. When handbook writer was doing rounds and checked on pt she states she was talking to her [employer] social work professor. Pt states I already hurt myself and shows handbook writer 3 bite flores on her arm. No skin was broken but teeth humphrey indents where noted. Pt states I am going to go home and kill myself tomorrow when I go home or kill my mom. Tube Teller asked pt if she had a plan and pt states I will eithergo in the road or stab myself in the heart. Pt states she has thought about killing her mom at least 28 times possibly 100-200 times. Pt states she will either push her or stab her to . Pt statesher mom is mean and nobody believes her. Pt states mom calls me a LMF and translates to handbook writer lazy mother-fucker and calls her fat. Tube Teller updated pt's nurse. Pt agreed to sit by nurses station so we could watch her and pt agreed not to hurt herself anymore. Pt stayed out on unit all through lunch and spoke with handbook writer asking if she should go in room for reflection time because she was concerned she might hurt herself. Pt agreed to thinking about positive coping mechanisms when feeling upset with herself or her mother when she gets home tomorrow. Pt agreed. Pt agreed she would play cards by herself and think about ways to handle her behavior in a positive manner. Pt agreed to come out to nurses station if she was having SIB thoughts. Pt bite flores are now gone. ORTHINESS INSPECTOR Plan of Care - Rae Meeks RN - 05/29/2020 8:16 PM CST Problem: Suicide Risk Goal: Absence of Self-Harm 05/29/20202015 by Rae Meeks RN Outcome: Improving 05/29/20202012 by Rae Meeks RN Outcome: Improving Intervention: Assess Risk to Self and Maintain Safety Recent Flowsheet Documentation Taken 05/29/20201899 by Rae Meeks RN Behavior Management: boundaries reinforced Intervention: Promote Psychosocial Wellbeing Recent Flowsheet Documentation Taken 05/29/20201899 by Rae Meeks RN Supportive Measures: ??? self-care encouraged ??? verbalization of feelings encouraged ??? self-responsibility promoted Patient reported having a good shift. Patient has spent most of the shift in the lounge playing monopoly with peers and attending group. Patient speech is loud. Patient has full range and is observed laughing and moving excitedly within the milieu. Patient reports having a good day. Denies SI, SIB, and HI. Denies depression and anxiety. Patient did not make any statements about wanting to hurt herself or others. Patient appetite is good and is compliant with medication. Will continue to monitor. ORTHINESS INSPECTOR Plan of Care - Khalida Paulino RN - 05/29/2020 2:09 PM CST Problem: Suicide Risk Goal: Absence of Self-Harm Outcome: Improving Patient reported having an alright day. AOx4. Poor concentration; easily distracted. Gets easily irritated. Patient denied depression. Patient denied SI/SIB. Denied hallucinations. Endorsed anxiety 12/26. Good appetite; ate 100% of breakfast and lunch. Good sleep. Patient endorsed feeling drowsy as a medication side effect. Patient refused to shower; its frustrating because my body never dries. I hate it. Patient attended OT group and refused to attend Yoga group. Patient went to sleep at around 12:30pm; she informed staff that she wants to be woken up after Reflection time. We'll continue monitoring. ORTHINESS INSPECTOR Plan of Aubrey - Kiki Lindsay OT - 05/29/2020 1:22 PM CST Problem: OT General Care Plan Goal: OT Goal 1 Description: Pt will practice using >2 coping strategies to manage stress and reduce symptoms to demonstrate increased readiness for discharge. Pt actively participated in a structured occupational therapy group with a focus on self-reflection via journal prompts. Pt was offered journal pages with topics including planning, reflecting, positivity/optimism, learning, productivity, social supports, goals for the future, laughter, and asking for help. Pt constructed a personal journal using various materials. Pt demonstrated minimal planning and fair task organization. Pt needs instructions to be simplified and assistance to be provided for basic tasks (this is pts cognitive baseline). Tube Teller empowers pt to be independent and make choices of her own with guidance/structure. Pt added pictures and recipes of food as her collage on her journal Social with others throughout duration of group - in particular with pt Helen (who she met on 7A). Bright, jovial affect. Pt does appear to have poor hygiene and may benefit from staff assistance/cues to complete her ADLs as they appear to be neglected. ORTHINESS INSPECTOR Plan of Care - Rae Meeks RN - 05/28/2020 11:44 PM AIRWORTHINESS INSPECTOR Problem: Suicide Risk Goal: Absence of Self-Harm Intervention: Assess Risk to Self and Maintain Safety Recent Flowsheet Documentation Taken 05/28/20202199 by Rae Meeks, RN Behavior Management: impulse control promoted NURSING ASSESSMENT: Patient is observed in the milieu. Patient speech is loud and at times is verbally aggressive. Patient completed a telephone call and made statements of wanting to kill her family. Patient made a statement of needing a 1:1 staff. The last time that I was here, I had a staff with me for 24 hours. Once the patient calmed down, she played a board game with peers and attended group.While engaged in activities. The patient speech continued to be loud and boisterous and her affect is full ranged. Patient received another telephone call. After completing this telephone call, the patient stated, My boyfriend said that I have to be safe in the hospital. I want to do what my boyfriend says, so that he will not break up with me. Patient is compliant with her medication. Patient had no unsafe behaviors this shift. MENTAL HEALTH: Pt denies Pt endorses thoughts of SI, SIB, and HI. Patient does not have a plan. Appetite= good Sleep= encouraged and monitored. EDUCATION: Self responsibility. Will continue with plan of care. PRNS this shift None ORTHINESS INSPECTOR Plan of Care - Sue Odom RN - 05/28/2020 2:49 PM CST Patient slept in this morning till awakened to talk to Lisa. Cooperative, pleasant and then went to group. Full range affect. Social on approach. Reports that she is not having thoughts to hurt herself. However, she indicates that she still has thoughts to want to hurt her mother. Denies hallucinations currently, but sometimes. Having difficulty describing her feelings: told this handbook writer she is doing good. Regarding belongings: Vikram was called in the morning. As of this afternoon this handbook writer has not heard back from [facility]. This handbook writer called mother who confirmed that she did take the BCPs to [facility] ED last evening. Mom also reports patient has some clothes as well. (Of note--patient's phone and cord are in belongings bin). This handbook writer called [facility] again. ORTHINESS INSPECTOR Plan of Care - Kiki Lindsay OT - 05/28/2020 2:37 PM CST INITIAL OT NOTE Problem: OT General Care Plan Goal: OT Goal 1 Description: Pt will practice using >2 coping strategies to manage stress and reduce symptoms to demonstrate increased readiness for discharge. Pt actively participated in a mental health management group with a topic of goal setting in relation to what we do and don't have control over. With assistance, pt able to identify situations she feels a lack of control in and the emotions associated with these situations. Pt contributed at least oneidea to a discussion about components of a good goal in different domains (physical, social, service, self-esteem, coping, and cognition). Pt was receptive to discussion about making goals measurable and achievable. Pt shared a physical goal exercising daily and drinking 6 cups of water and a socialgoal to talk to a new person each day or write letters to people. Pt had difficulty identifying coping skills pt could use daily. Tube Teller provided pt various resources and encouraged pt to review and [place] novel skills pt would be willing to try. Pt receptive to this idea. Overall pt was engaged in the group, but given her level of cognition, pt benefited from instructions simplified and walking through the exercise 1:1. ORTHINESS INSPECTOR Plan of Care - Fang Rodriges LMFT - 05/28/2020 12:07 PM CST The patient specific goals include: Patient will participate in unit programming Patient will identify triggers and positive coping skills Patient will take medications as prescribed by physician both for mental health and medical Patient coached to work on coping packet The patient identified the following reasons for hospitalization: Suicidal and homicidal Thoughts and statements. The patient identified the following goals for discharge: Absence of Suicidal and homicidal thoughts and statements. ORTHINESS INSPECTOR Plan of Care - Fang Rodriges LMFT - 05/28/2020 12:05 PM CST BEHAVIORAL TEAM DISCUSSION Participants: 4A Provider: Meera Powell APRN, JESICA; 4A RN's: Sue Odom, RN; 4A CTC's: Chaparrita Rodriges, (CTC). Progress: Continuing to Assess . Continued Stay Criteria/Rationale: New Patient Medical/Physical: Congenital Atresia, Stenosis of Urethra Precautions: Behavioral Orders Procedures Assault precautions Code 1 - Restrict to Unit Routine Programming As clinically indicated Self Injury Precaution Pt has superficial cuts on her wrists Status 15 Every 15 minutes. Suicide precautions Patients on Suicide Precautions should have a Combination Diet ordered that includes a Diet selection(s) AND a Behavioral Tray selection for Safe Tray - with utensils, or Safe Tray - NO utensils -Suicidal ideation Plan: CTC will complete psychosocial. CTC will coordinate disposition and after care planning. The following services will be provided to the patient; psychiatric assessment, medication management, therapeutic milieu, individual and group support, art therapy, and skills/OT groups. Rationale for change in precautions or plan: No Change. ORTHINESS INSPECTOR Associated attestation - Meera Powell APRN CNS - 05/28/2020 3:42 PM AIRWORTHINESS INSPECTOR I reviewed and agree with the above treatment plan. Pharmacy-Admission Medication History - Rea Castellon RPH - 05/28/2020 10:59 AM CST Admission Medication History Completed by Pharmacy See [facility] Admission Navigator for allergy information, preferred outpatient pharmacy, prior to admission medications and immunization status. Medication History Sources: ??? Surescripts, CareEverywhere, and interview with mother (legal guardian) Changes made to CLINICAL DOCUMENTATION IMPROVEMENT SPECIALIST medication list (reason): ??? Added: None ??? Deleted: None ??? Changed: None Additional Information: ??? Spoke with mother regarding recently filled medications, metformin and metronidazole. Per mother, metformin was filled by PCP and picked up on accident (medication was intentionally discontinued during last admission in March). ??? Mother reported patient finished 7 day course of metronidazole for UTI this past week, but reports daughter still mentioned frequent urge/need to urinate after antibiotic completion. ??? Non-formulary medication: Seasonale - mother reports patient is on second month of Seasonale pack and in to last week of therapy. Medication was packaged by mother in a zip[facility]lock [facility] and should be within patient's belongings. Prior to Admission medications Medication Sig Last Dose Taking? Auth Provider levonorgestrel-ethinyl estradiol (SEASONALE) 0.15-0.03 MG per tablet Take 1 tablet by mouth daily 05/27/2020 at 1819 Yes Queta Fritz MD Melatonin 10 MG TABS tablet Take 10 mg by mouth nightly as needed for sleep 05/25/2020 at PM Yes Reported, Patient QUEtiapine (SEROQUEL) 300 MG tablet Take 300 mg by mouth At Bedtime 05/25/2020 at PM Yes Unknown, Entered By History Vitamin D, Cholecalciferol, 25 MCG (1000 UT) CAPS Take 1 capsule by mouth daily 05/25/2020 at PM Queta Fritz MD Date completed: 05/28/20 Medication history completed by: Rea Castellon, PharmD [facility]: Ascom *[phone] ORTHINESS INSPECTOR Provider Notification - Lois Hoover RN - 05/28/2020 5:20 AM AIRWORTHINESS INSPECTOR Images from the original note were not included. 05/28/20 0520 Valuables Patient Belongings remains with patient Patient Belongings Remaining with Patient cell phone/electronics Did you bring any home meds/supplements to the hospital? No Pt came with one cell phone and earphones. A Admission: I am responsible for any personal items that are not sent to the safe or pharmacy. [place] is not responsible for loss, theft or damage of any property in my possession. Signature: Date: Time: Staff Signature: Date: Time: 2nd Staff person, if patient is unable/unwilling to sign: Signature: Date: Time: Discharge: Angie has returned all of my personal belongings: Signature: Date: Time: Staff Signature: Date: Time: ORTHINESS INSPECTOR documented in this encounter Plan of Treatment Not on filedocumented as of this encounter Procedures Procedure Name Priority Date/Time Associated Comments Diagnosis CBC WITH PLATELETS & Routine 05/29/2020 6:57 AM R esults for this DIFFERENTIAL AIRWORTHINESS INSPECTOR procedure are i n the results section. TSH WITH FREE T4 Routine 05/29/2020 6:57 AM Resul ts for this REFLEX AIRWORTHINESS INSPECTOR procedure are i n the results section. COMPREHENSIVE Routine 05/29/2020 6:57 AM Results for this METABOLIC PANEL AIRWORTHINESS INSPECTOR procedure ar e in the results section. documented in this encounter Results TSH with free T4 reflex and/or T3 as indicated (05/29/2020 6:57 AM AIRWORTHINESS INSPECTOR) athologist Signature TSH 2.68 0.40 - 4.00 05/29/2020 [facility] mU/L 7:36 AM AIRWORTHINESS INSPECTOR [facility] Specimen Anatomical Collection Method Collection Time Receive d Time (Source) Location / / Volume Laterality Blood specimen 05/29/2020 6:57 AM 020 6:58 (specimen) AIRWORTHINESS INSPECTOR AM AIRWORTHINESS INSPECTOR Billy Olivares MD LAB - BLOOD ORDERABLES Performing Organization Address City/State/ZIP Code Phon e Number [facility] (ABNORMAL) Comprehensive metabolic panel (05/29/2020 6:57 AM AIRWORTHINESS INSPECTOR) athologist Signature Sodium 140 133 - 144 05/29/2020 [facility] [place] mmol/L 7:19 AM [facility] Potassium 4.3 3.4 - 5.3 05/29/2020 [facility] [place] mmol/L 7:19 AM [facility] Chloride 110 96 - 110 05/29/2020 [facility] [place] mmol/L 7:19 AM [facility] Carbon Dioxide 27 20 - 32 05/29/2020 [facility] [place] mmol/L 7:25 AM [facility] Anion Gap 3 3 - 14 05/29/2020 [facility] [place] mmol/L 7:25 AM [facility] Glucose 80 70 - 99 05/29/2020 [facility] [place] mg/dL 7:25 AM [facility] Urea Nitrogen 9 7 - 19 05/29/2020 [facility] [place] mg/dL 7:25 AM [facility] Creatinine 0.88 0.50 - 05/29/2020 [facility] [place] 1.00 mg/dL 7:25 AM [facility] GFR Estimate >90 >60 05/29/2020 [facility] [place] mL/min/{1. 7:25 AM [facility] 73_m2} HOSPITAL Comment: Non GFR Calc Starting 07/05/2018, serum creatinine ba sed estimated GFR (eGFR) will be calculated using the Chronic Kidney Dise [facility] Epidemiology Collaboration (CKD-EPI) equation. GFR Estimate If >90 >60 mL/min/{1.73_m2} 05/29/2020 7: 25 AM [facility] [place] Black [facility] Comment: GFR Calc Starting 07/05/2018, serum creatinine ba sed estimated GFR (eGFR) will be calculated using the Chronic Kidney Dise [facility] Epidemiology Collaboration (CKD-EPI) equation. Calcium 8.6 8.5 - 10.1 05/29/2020 7:25 AM [facility] mg/dL [facility] Bilirubin Total 0.2 0.2 - 1.3 mg/dL 05/29/2020 7:28 AM [facility] Albumin 2.9 (L) 3.4 - 5.0 g/dL 05/29/2020 7:28 AM [facility] Protein Total 6.7 (L) 6.8 - 8.8 g/dL 05/29/2020 7:[address] [facility] Alkaline Phosphatase 81 40 - 150 U/L 05/29/2020 7:28 AM [facility] ALT 14 0 - 50 U/L 05/29/2020 7:28 AM [facility] AST 9 0 - 35 U/L 05/29/2020 7:28 AM [facility] Specimen Anatomical Collection Method Collection Time Receive d Time (Source) Location / / Volume Laterality Blood specimen 05/29/2020 6:57 AM 020 6:58 (specimen) AIRWORTHINESS INSPECTOR AM AIRWORTHINESS INSPECTOR Billy Olivares MD LAB - BLOOD ORDERABLES Performing Organization Address City/State/ZIP Code Phon e Number M [facility] [address] [id number] HOSPITAL [facility] M [facility] [address] [id number], U [phone] (ABNORMAL) CBC with platelets differential (05/29/2020 6:57 AM AIRWORTHINESS INSPECTOR) [facility] gist Method Time Signature WBC 7.0 4.0 - 05/29/2020 [facility] 11.0 7:08 AM [facility] 10e9/L [facility] RBC Count 4.30 3.8 - 5.2 05/29/2020 [facility] 10e12/L 7:08 AM [facility] Hemoglobin 11.1 (L) 11.7 - 05/29/2020 [facility] 15.7 g/dL 7:08 AM [facility] Hematocrit 34.8 (L) 35.0 - 05/29/2020 [facility] 47.0 % 7:08 AM [facility] MCV 81 78 - 100 05/29/2020 [facility] fl 7:08 AM [facility] MCH 25.8 (L) 26.5 - 05/29/2020 [facility] 33.0 pg 7:08 AM [facility] MCHC 31.9 31.5 - 05/29/2020 [facility] 36.5 g/dL 7:08 AM [facility] RDW 13.9 10.0 - 05/29/2020 [facility] 15.0 % 7:08 AM [facility] Platelet Count 393 150 - 450 05/29/2020 [facility] 10e9/L 7:08 AM [facility] Diff Method Automated 05/29/2020 [facility] Method 7:08 AM [facility] % Neutrophils 40.2 % 05/29/2020 [facility] 7:08 AM [facility] % Lymphocytes 52.9 % 05/29/2020 [facility] 7:08 AM [facility] % Monocytes 4.5 % 05/29/2020 [facility] 7:08 AM [facility] % Eosinophils 1.7 % 05/29/2020 [facility] 7:08 AM [facility] % Basophils 0.6 % 05/29/2020 [facility] 7:08 AM [facility] % Immature 0.1 % 05/29/2020 [facility] Granulocytes 7:08 AM [facility] Nucleated RBCs 0 0 /100 05/29/2020 [facility] 7:08 AM [facility] Absolute 2.8 1.6 - 8.3 05/29/2020 [facility] Neutrophil 10e9/L 7:08 AM [facility] Absolute 3.7 0.8 - 5.3 05/29/2020 [facility] Lymphocytes 10e9/L 7:08 AM [facility] Absolute 0.3 0.0 - 1.3 05/29/2020 [facility] Monocytes 10e9/L 7:08 AM [facility] Absolute 0.1 0.0 - 0.7 05/29/2020 [facility] Eosinophils 10e9/L 7:08 AM [facility] Absolute 0.0 0.0 - 0.2 05/29/2020 [facility] Basophils 10e9/L 7:08 AM [facility] Abs Immature 0.0 0 - 0.4 05/29/2020 [facility] Granulocytes 10e9/L 7:08 AM [facility] Absolute 0.0 05/29/2020 [facility] Nucleated RBC 7:08 AM [facility] Specimen Anatomical Collection Method Collection Time Receive d Time (Source) Location / / Volume Laterality Blood specimen 05/29/2020 6:57 AM 020 6:58 (specimen) AIRWORTHINESS INSPECTOR AM AIRWORTHINESS INSPECTOR Billy Olivares MD LAB - BLOOD ORDERABLES Performing Organization Address City/State/ZIP Code Phon e Number [facility] [address] [place] [address] [facility] documented in this encounter Visit Diagnoses Diagnosis Suicidal ideations Suicidal ideation documented in this encounter Administered Medications Inactive Administered Medications - up to 3 most recent administrations Medication Order MAR Action Action Date Dose Rate Site acetaminophen (TYLENOL) tablet Given 06/04/2020 10:52 PM AIRWORTHINESS INSPECTOR 650 mg 650 mg 650 mg, Oral, EVERY 4 HOURS PRN, mild pain, Starting on Wed05/28/20 at 0404, Do not use if the patient has significant liver disease. MAX acetaminophen = 4000 mg/24 hrs. MAX acetaminophen <3000 mg/24 hrs for patients > or = 65 years old. Maximum acetaminophen dose from all sources = 75 mg/kg/day not to exceed 4 grams/day. Given 06/02/2020 11:41 PM AIRWORTHINESS INSPECTOR 650 mg Given 06/02/2020 5:41 PM AIRWORTHINESS INSPECTOR 650 mg alum & mag hydroxide-simethicone (MAALOX ) suspension 30 mL 30 mL, Oral, EVERY 4 HOURS PRN, indigestion, Starting on Wed05/29/20 at 1137, Shake well. bisacodyl (DULCOLAX) Suppository 10 mg 10 mg, Rectal, DAILY PRN, constipation, Starting on Wed05/28/20 at 0404, Hold for loose stools. hydrOXYzine (ATARAX) tablet 25 mg 25 mg, Oral, EVERY 4 HOURS PRN, anxiety, Starting on 05/28/20 at 0404, Administer only if there is no other oral medication o rdered prn for anxiety, levonorgestrel-ethinyl estradiol (NORDETTE) Given 05/19 8:35 AM AIRWORTHINESS INSPECTOR 1 tablet 0.15-30 MG-MCG per tablet 1 tablet 1 tablet, Oral, DAILY, First dose on Wed05/28/20 at 1100, Formulary alternate for Seasonale. Skip inactive (placebo) week at the bottom. Given 06/02/2020 8:44 AM AIRWORTHINESS INSPECTOR 1 tablet Given 06/01/2020 8:51 AM AIRWORTHINESS INSPECTOR 1 tablet levonorgestrel-ethinyl estradiol (NORDETTE) Given 05/19 9:13 AM AIRWORTHINESS INSPECTOR 1 tablet 0.15-30 MG-MCG per tablet 1 tablet 1 tablet, Oral, DAILY, First dose on Wed06/04/20 at 0800 Given 06/05/2020 10:50 AM AIRWORTHINESS INSPECTOR 1 tablet Given 06/04/2020 9:02 AM AIRWORTHINESS INSPECTOR 1 tablet magnesium hydroxide (MILK OF MAGNESIA) s uspension 30 mL 30 mL, Oral, AT BEDTIME PRN, constipatio n, Starting on Wed05/28/20 at 0404, Shake well. Hold for loose stools. melatonin tablet 10 mg Given 06/02/2020 8:33 PM AIRWORTHINESS INSPECTOR 10 mg 10 mg, Oral, AT BEDTIME PRN, sleep, Starting on Wed05/28/20 at 0406, Offer melatonin before trazodone. Given 06/01/2020 9:59 PM AIRWORTHINESS INSPECTOR 10 mg Given 05/31/2020 9:51 PM AIRWORTHINESS INSPECTOR 10 mg OLANZapine (zyPREXA) injection 10 mg 10 mg, Intramuscular, 3 TIMES DAILY PRN, agitation, associated with psychosis or dylan, Starting on Wed05/28/20 at 0817, Not to exceed 30 mg in 24 hours. Consider lower dose if sedation or hypotension. Dissolve the co ntents of the 10 mg vial using 2.1 mL of Sterile Water for Injection to provide a solution containing 5 mg/mL of olanzapine. Withdraw the ordere d dose from vial. Use immediately (within 1 hour) after reconstitution. Discard any unused portion . OLANZapine (zyPREXA) tablet 5-10 mg Given 06/04/2020 10:52 PM AIRWORTHINESS INSPECTOR 5 mg 5-10 mg, Oral, 3 TIMES DAILY PRN, agitation, associated with psychosis or dylan, Starting on Wed05/28/20 at 0817, Consider lower dose if sedation or hypotension. Not to exceed 30 mg in 24 hours. Combined IM and PO doses may significantly increase the risk of orthostatic hypotension at 30 mg per day or higher. Given 06/03/2020 5:12 PM AIRWORTHINESS INSPECTOR 10 mg Given 05/28/2020 7:01 PM AIRWORTHINESS INSPECTOR 10 mg QUEtiapine (SEROquel) tablet 300 mg Given 06/05/2020 9:04 PM AIRWORTHINESS INSPECTOR 300 mg 300 mg, Oral, AT BEDTIME, First dose on Wed05/28/20 at 0430 Given 06/04/2020 9:54 PM AIRWORTHINESS INSPECTOR 300 mg Given 06/03/2020 9:42 PM AIRWORTHINESS INSPECTOR 300 mg traZODone (DESYREL) tablet 50 mg 50 mg, Oral, AT BEDTIME PRN, sleep, Star ting on Wed05/28/20 at 0404, May repeat x 1 Vitamin D3 (CHOLECALCIFEROL) tablet 25 m cg Given 06/06/2020 9:12 AM AIRWORTHINESS INSPECTOR 25 mcg 25 mcg, Oral, DAILY, First dose on Wed05/28/20 at 0800, Note: 25 mcg = 1000 units Given 06/05/2020 9:26 AM AIRWORTHINESS INSPECTOR 25 mcg Given 06/04/2020 9:00 AM AIRWORTHINESS INSPECTOR 25 mcg documented in this encounter Active and Recently Administered Medications Times are shown in AIRWORTHINESS INSPECTOR. Scheduled Medication Order 06/04/2020 06/05/2020 06/06/2020 levonorgestrel-ethinyl estradiol (NORDETTE) 0.15-30 MG -MCG per tablet 1 tablet 0902 (Given - Provider: Sue Odom RN) 1050 (Given - Provider: Sue Odom RN) 0913 (Given - Provider: Dioni Glass RN) 1 tablet, Oral, DAILY, First dose on Wed06/04/20 at 0800 QUEtiapine (SEROquel) tablet 300 mg 2154 (Given - Provider: Jaquelin Rucker RN) 2104 (Given - Provider: Rae Meeks RN) 300 mg, Oral, AT BEDTIME, First dose on Wed05/28/20 at 0430 Vitamin D3 (CHOLECALCIFEROL) tablet 25 mcg 0900 (Given - Provider: Sue Odom RN) 0926 (Given - Provider: Sue Odom RN) 0912 (Gi bella - Provider: Dioni Glass RN) 25 mcg, Oral, DAILY, First dose on Wed07/28/19 at 0800, Note: 25 mcg = 1000 units PRN Medication Order 06/04/2020 06/05/2020 06/06/2020 acetaminophen (TYLENOL) tablet 650 mg 2252 (Given - Provider : Jaquelin Rucker RN) 650 mg, Oral, EVERY 4 HOURS PRN, mild pa in, Starting Wed05/28/20 at 0404, Do not use if the patient has significant liver disease. MAX acetaminophen = 4000 mg/24 hrs. MAX acetaminophen <3000 mg/24 h rs for patients > or = 65 years old. Max imum acetaminophen dose from all sources = 75 mg/kg/day not to exceed 4 grams/day. alum & mag hydroxide-simethicone (MAALOX) suspension 30 mL 30 mL, Oral, EVERY 4 HOURS PRN, indigest ion, Starting Wed05/29/20 at 1137, Shake well. bisacodyl (DULCOLAX) Suppository 10 mg 10 mg, Rectal, DAILY PRN, constipation, Starting Wed05/28/20 at 0404, Hold for loose stools. hydrOXYzine (ATARAX) tablet 25 mg 1705 (Not Given - Pr ovider: Amauri Otero, RN - Reason: Other) 25 mg, Oral, EVERY 4 HOURS PRN, anxiety, Starting Wed05/28/20 at 0404, Administer only if there is no other oral medication ordered prn for anxiety, magnesium hydroxide (MILK OF MAGNESIA) suspension 30 mL 30 mL, Oral, AT BEDTIME PRN, constipatio n, Starting Wed05/28/20 at 0404, Shake well. Hold for loose stools. melatonin tablet 10 mg 10 mg, Oral, AT BEDTIME PRN, sleep, Star ting Wed05/28/20 at 0406, Offer melatonin before trazodone. OLANZapine (zyPREXA) injection 10 mg(Linked Group 1) 1 70 (See Alternative - Provider: Amauri Otero RN)2251 (See Alternative - Provider: Jaquelin Rucker RN) 10 mg, Intramuscular, 3 TIMES DAILY PRN, agitation, associated with psychosis or dylan, Starting Wed05/28/20 at 0817, Not to exceed 30 mg in 24 hours. Consider lower dose if sedation or hypotension. Di ssolve the contents of the 10 mg vial us ing 2.1 mL of Sterile Water for Injection to provide a solution containing 5 mg/mL of olanzapine. Withdraw the ordered dose from vial. Use immediately (within 1 h our) after reconstitution. Discard any unused portion. OLANZapine (zyPREXA) tablet 5-10 mg(Linked Group 1) 17 (Not Given - Provider: Amauri Otero RN - Reason: Other)2251 (Given - Provider: Jaquelin Rucker, JAZMYNE) 5-10 mg, Oral, 3 TIMES DAILY PRN, agitat ion, associated with psychosis or dylan, Starting Wed05/28/20 at 0817, Consider lower dose if sedation or hypotension. Not to exceed 30 mg in 24 hours. Combined IM and PO doses may significantly increa se the risk of orthostatic hypotension at 30 mg per day or higher. traZODone (DESYREL) tablet 50 mg 50 mg, Oral, AT BEDTIME PRN, sleep, Star ting Wed05/28/20 at 0404, May repeat x 1 Linked Groups Order Group 1: OLANZapine (zyPREXA) tablet 5-10 mgJump to med 5-10 mg, Oral, 3 TIMES DAILY PRN, agitat ion, associated with psychosis or dylan, Starting Wed05/28/20 at 0817
Consider lower dose if sedation or hypotension. Not to exceed 30 mg in 24 hours.&a mp;nbsp;Combined IM and PO doses may sig nificantly increase the risk of orthostatic hypotension at 30 mg per day or higher.
Or OLANZapine (zyPREXA) injection 10 mgJump to med 10 mg, Intramuscular, 3 TIMES DAILY PRN, agitation, associated with psychosis or dylan, Starting Wed05/28/20 at 0817
Not to exceed 30 mg in 24 hours. Consider lower dose if sedation or hypotension. Dissolve t he contents of the 10 mg vial using 2.1 mL of Sterile Water for Injection to provide a solution containing 5 mg/mL of olanzapine. Withdraw the ordered dose fr om vial. Use immediately (within 1 hour) after reconstitution. Discard any unused portion.
documented in this encounter Additional Health Concerns Assessment Noted Time PHQ-9 Depression Total Score: 7 11/13/2019 11:26 AM CD T documented as of this encounter Care Teams Consultant In Ergonomics And Safety Relationship Specialty Start Date End Date Khalida Beyer MD PCP - General Psychiatry 05/28/20 08/22/21 Queta Fritz Assigned PCP 03/04/14 04/12/21 MD Liza [facility] [address] [address] Tc Jama MD MD Pediatric Surgery 02/14/20 [address] [place], [place] [phone] Tc Jama MD Assigned Pediatric 05/10/20 09/06/21 2450 BEKAH BLUNT Specialist Provider [address] [place] [phone] documented as of this encounter
--- OUTSIDE RECORDS SUMMARY | 2022-04-23 23:41 | XMS_ITS | Encounter Summary ---
:2002 Author Organization [facility] Address [address] [place] [address] Care Team Providers Name Role Phone Queta Fritz MD Primary Care Provider [phone] Queta Fritz MD Unavailable [phone] Tc Jama MD Unavailable Reason for Visit Reason Onset Date Comments Hospital F/U 04/01/2020 depression, suicidal ideations Encounter Details Date Type Department Care Team Description 04/01/2020 Telephone [facility] Krystle De Jesus MD (depression, suicidal [address] ideations) [place], [place] [id number] [place] [address] (Wo rk) Social History Tobacco [...] do you attend caodaism or Never 2018 mandaen services? 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 documented as of this encounter Miscellaneous Notes Telephone Encounter - Melba Batres RN - 04/01/2020 3:34 PM CDT ED for acute condition Discharge Protocol Hi, my name is Melba BATRES, RN, a registered nurse, and I am calling from [facility]. I am calling to follow up and see how things are going after Mahi Faye's recent emergency visit. Tell me how he/she is doing now that you are home? doing better Discharge Instructions Let's review your discharge instructions. What is/are the follow-up recommendations? Pt. Response: mom reported pt is living at home as correction closed d/t covid Has an appointment with the primary care provider been scheduled? No (not needed) Medications Tell me what changed about his/her medicines when he/she discharged? None What questions do you have about the medications? None Call Summary What questions or concerns do you have about your child's recent visit and your follow-up care? Mom needs to find new housing options for daughter in a female correction If you have questions or things don't [...] you for your time and take care! Telephone Encounter - Sarai Hanna RN - 04/01/2020 12:00 PM CDT IP F/U Date: 03-31-20 Diagnosis: depression, suicidal ideations Is patient active in care coordination? No Was patient in TCU? No documented in this encounter Plan of Treatment Not on filedocumented as of this encounter Visit Diagnoses Not on filedocumented in this encounter Additional Health Concerns Assessment Noted Time PHQ-9 Depression Total Score: 7 11/13/2019 11:26 AM CD T documented as of this encounter Care Teams Correctional Treatment Specialist Relationship Specialty Start Date End Date Queta Fritz MD PCP - General Pediatrics 12/19/15 05/27/20 [address] [phone] Queta Fritz MD Assigned PCP 03/04/14 04/12/21 [address] [place] [address] [phone] Tc Jama MD MD Pediatric Surgery 02/14/[address] [place] [phone] documented as of this encounter
--- OUTSIDE RECORDS SUMMARY | 2022-04-23 23:41 | XMS_ITS | Encounter Summary ---
:2002 Author Organization [facility] Address [address] [place] [address] Care Team Providers Name Role Phone Queta Fritz MD Unavailable [phone] Tc Jama MD Unavailable Tc Jama MD Unavailable Khalida Beyer MD Primary Care Provider Encounter Details Date Type Department Care Team Description 05/28/2020 Travel Social History Tobacco Use Types Packs/Day [...] or relatives? How often do you attend hinduism or Never 2018 synagogue services? 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 documented as of this encounter Plan of Treatment Not on filedocumented as of this encounter Visit Diagnoses Not on filedocumented in this encounter Additional Health Concerns Assessment Noted Time PHQ-9 Depression Total Score: 7 11/13/2019 11:26 AM CD T documented as of this encounter Care Teams Associate Dean Relationship Specialty Start Date End Date Khalida Beyer MD PCP - General Psychiatry 05/28/20 08/22/21 Queta Fritz Assigned PCP 03/04/14 04/12/21 MD Liza [address] [facility] [address] [place], [place] [phone] Tc Jama MD MD Pediatric Surgery 02/14/[address] [phone] Tc Jama MD Assigned Pediatric 05/10/20 09/06/21 [facility] BEKAH BLUNT Specialist Provider [address] [place] [id number] documented as of this encounter
--- OUTSIDE RECORDS SUMMARY | 2022-04-23 23:41 | XMS_ITS | Encounter Summary ---
:2002 Author Organization [facility] Address [address] [place] [address] Care Team Providers Name Role Phone Queta Fritz MD Primary Care Provider [phone] Queta Fritz MD Unavailable Tc Jama MD Unavailable Tc Jama MD Unavailable Encounter Details Date Type Department Care Team Description 05/20/2020 Travel Social History Tobacco Use Types Packs/Day [...] do you attend yarsanism or Never 2018 samaritan services? 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 documented as of this encounter Plan of Treatment Not on filedocumented as of this encounter Visit Diagnoses Not on filedocumented in this encounter Additional Health Concerns Assessment Noted Time PHQ-9 Depression Total Score: 7 11/13/2019 11:26 AM CD T documented as of this encounter Care Teams Able Bodied Seaman Relationship Specialty Start Date End Date Queta Fritz PCP - General Pediatrics 12/19/15 05/27/20 MD Liza [address] [place] [phone] Queta Fritz Assigned PCP 03/04/14 04/12/21 MD Liza [address] [place] [phone] Tc Jama MD MD Pediatric Surgery 02/14/20 [facility] [address] [phone] Tc Jama MD Assigned Pediatric 05/10/20 09/06/21 [facility] BEKAH BLUNT Specialist Provider [address] [place] [phone] documented as of this encounter
--- OUTSIDE RECORDS SUMMARY | 2022-04-23 23:41 | XMS_ITS | Encounter Summary ---
:2002 Author Organization [facility] Address [address] [place] [address] Care Team Providers Name Role Phone Queta Fritz MD Primary Care Provider [phone] Queta Fritz MD Unavailable [phone] Tc Jama MD Unavailable Reason for Visit Reason Comments ACP Encounter Details Date Type Department Care Team Description 04/09/2020 Documentation Only Honoring Yaneth Pelaez ACP [address] [facility] [address] [place] [address] Formerly named [facility] [phone] [place] [address] Social History Tobacco Use Types Packs/Day Years [...] do you attend yarsani or Never 2018 yazidism services? Do you belong to any clubs [...] place to sleep or slept in a fci (including now)? Education Answer Date Recorded What is the highest level of school you have completed or 10 th grade 12/07/2018 the highest degree you have received? 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
--- OUTSIDE RECORDS SUMMARY | 2022-04-23 23:42 | XMS_ITS | Encounter Summary ---
:2000 Author Organization [facility] Address [address] [place] [address]. [place] [address] Care Team Providers Name Role Phone Queta Fritz MD Primary Care Provider [phone] Queta Fritz MD Unavailable [phone] Reason for Visit Auth/Cert Specialty Diagnoses / Procedures Referred By Contact Refer red To Contact Surgery Diagnoses Pilonidal disease Pilonidal disease [L98.8] Ur Periop Procedures HC EXCISION PILONIDAL LESION SIMPLE HC EXCISION PILONIDAL LESION EXTENSIVE HC EXCISION PILONIDAL LESION COMPLICATED EXCISION, PILONIDAL CYST [id number] [place] [phone] Phone: Fax: Referral ID Status Reason Start Date Expiration Date Visits Requ ested Visits Authorized [id number] 1 1 Encounter Details Date Type Department Care Team Description 01/09/2020 - Hospital Encounter [facility] Geneva Jama S/P surgical removal of pilonidal cyst (Primary Dx); 01/10/2020 [facility] Pediatric MD Satnam Pilonidal disease; Medical Surgical [address] [place] [address] Pilonidal disease [address] [facility] [address] [place] [phone] Social History Tobacco Use Types Packs/Day Years [...] do you attend latter-day or Never 2018 confucianism services? Do you [...] at Date Recorded Female 09/04/2021 9:00 PM [facility] COVID-19 Exposure Response Date Recorded In the last month, have you been in contact with No / Unsure 01/09/2020 8:33 AM CDT someone who was confirmed or suspected to have Coronavirus / COVID-19? documented as of this encounter Last Filed Vital Signs Vital Sign Reading Time Taken Comments Blood Pressure 118/70 01/10/2020 8:40 AM CDT Pulse 83 01/09/2020 1:50 PM CDT Temperature 36.8 ??C (98.2 ??F) 01/10/2020 8:40 AM CDT Respiratory Rate 16 01/10/2020 8:40 AM CDT Oxygen Saturation 97% 01/10/2020 8:40 AM CDT Inhaled Oxygen Concentration - - Weight 78.4 kg (172 lb 13.5 oz) 01/09/2020 8:47 AM CDT Height 174.2 cm (5' 8.6) 01/09/2020 8:47 AM CDT Body Mass Index 25.82 01/09/2020 8:47 AM CDT Body Mass Index Percentile 85.98 % 01/09/2020 8:47 AM CD T Growth Chart: CDC (Girls, 2-20 Years) documented in this encounter Discharge Summaries Geneva Jama MD - 01/10/2020 12:30 PM CDT [facility] [place] Discharge Summary Surgery Date of Admission: 01/09/2020 Date of Discharge: 01/10/2020 12:30 PM Discharging Provider: Dr. Jama Discharge Diagnoses Patient Active Problem List Diagnosis ??? Chromosomal abnormality ??? Learning disability ??? Anxiety ??? Insomnia ??? Aggression with talk of suicide/homicide ??? Suicidal ideation ??? Development delay ??? Mild anemia ??? Slow transit constipation ??? Pilonidal sinus ??? Pilonidal disease ??? S/P surgical removal of pilonidal cyst History of Present Illness Beth Morales is an 19 year old female with history of pilonidal disease who underwent pilonidal cyst excision on 01/09/2020. Hospital Course Beth Morales was admitted on 01/09/2020 following her operation. She tolerated the procedure well without complication. She was discharged on POD1 once pain was controlled, she was tolerating a regular diet, voiding and ambulating. She will follow up in [address] Jama for vessel loop removal. Significant Results and Procedures Pilonidal cyst excision (01/09/2020) Immunization History Immunization Status: up to date and documented Pending Results Unresulted Labs Ordered in the Past 30 Days of this Admission Date and Time Order Name Status Description 01/09/2020 1026 Surgical pathology exam In process Primary Care Physician Queta Fritz MD Physical Exam Vital Signs with Ranges Temp: [97.8 ??F (36.6 ??C)-98.8 ??F (37.1 ??C)] 98.2 ??F (36.8 ??C) Pulse: [73-83] 83 Heart Rate: [72-104] 78 Resp: [14-20] 16 BP: (93-127)/(40-82) 118/70 SpO2: [97 %-99 %] 97 % I/O last 3 completed shifts: In: 1833 [P.O.:730; I.V.:1103] Out: 1200 [Urine:1200] GENERAL: Active, alert, in no acute distress LYMPH NODES: No adenopathy LUNGS: Unlabored breathing on RA HEART: RRR ABDOMEN: Soft, non-tender, not distended ANORECTAL: Wound clean and dry with blue vessel loop in place EXTREMITIES: Full range of motion, no deformities Time Spent on this Encounter IAlva MD, personally saw the patient today and spent less than or equal to 30 minutes discharging this patient. Discharge Disposition Discharged to home Condition at discharge: Good Consultations This Hospital Stay None Discharge Orders Reason for your hospital stay Beth was admitted for excision of pilonidal cyst. Follow Up and recommended labs and tests Follow up with Dr. Jama in peds surgery clinic, in person, in 2 weeks, to evaluate after surgery, drain removal. Activity Your activity upon discharge: activity as tolerated When to contact your care team Call Pediatric Surgery if you have any of the following: temperature greater than 101, increased drainage, redness, swelling or increased pain at your incision. Pediatric Surgery contact information: Pediatric surgery nurse line: [facility] Appointment scheduling: [place] , [place] , [place] Urgent after hours: ask for pediatric surgeon controller instructor [facility] ER: Pediatric surgery office: Wound care and dressings Instructions to care for your wound at home: Vessel loop drain in place to facilitate drainage. Wash incision gently in shower or bath or sitz bath at least twice daily with technicare soap and water. May apply split gauze to secure tied ends of loop, gauze or soft cloth to cover, secure loosely with paper tape or under undergarments. Change twice daily or as needed with drainage. Diet Follow this diet upon discharge: Regular Discharge Medications Discharge Medication List as of 01/10/2020 11:54 AM START taking these medications Details acetaminophen (TYLENOL) 325 MG tablet Take 2 tablets (650 mg) by mouth every 6 hours as needed for mild pain, Disp-1 Bottle,R-0, E-Prescribe magnesium hydroxide (MILK OF MAGNESIA) 400 MG/5ML suspension Take 5-10 mLs by mouth daily as needed for constipation or heartburn, OTCFamily has home supply oxyCODONE (ROXICODONE) 5 MG tablet Take 0.5-1 tablets (2.5-5 mg) by mouth every 4 hours as needed for moderate to severe pain, Disp-8 tablet,R-0, E-Prescribe CONTINUE these medications which have CHANGED Details ibuprofen (ADVIL/MOTRIN) 600 MG tablet Take 1 tablet (600 mg) by mouth every 6 hours as needed for fever ((temp greater than 38.0C, 100.4F) or mild pain), Disp-30 tablet,R-0, E-Prescribe CONTINUE these medications which have NOT CHANGED Details calcium carbonate 600 mg-vitamin D 400 units (CALCIUM 600 + D) 600-400 MG-UNIT per tablet Take 1 tablet by mouth 2 times daily, Historical levonorgestrel-ethinyl estradiol (SEASONALE) 0.15-0.03 MG per tablet Take 1 tablet by mouth daily, Disp-84 tablet, R-3, E-Prescribe METFORMIN HCL PO Take 500 mg by mouth 2 times daily For appetite suppression/ seraquel, Historical !! QUEtiapine ER (SEROQUEL XR) 200 MG 24 hr tablet Take 1 tablet (200 mg) by mouth At Bedtime With 300 to make 500 mg, Historical !! QUEtiapine ER (SEROQUEL XR) 300 MG 24 hr tablet Take 1 tablet (300 mg) by mouth At Bedtime With 200 to make 500 mg, Historical Vitamin D, Cholecalciferol, 1000 units CAPS Take 1 capsule by mouth daily, Historical !! - Potential duplicate medications found. Please discuss with provider. Allergies Allergies Allergen Reactions ??? Nkda [No Known Drug Allergies] ??? Seasonal Allergies Alva Carver MD Surgery Resident, PGY2 documented in this encounter Medications at Time of Discharge Medication Sig Dispensed Refills Start Date End Date acetaminophen (TYLENOL) Take 2 tablets (650 1 Bottle 0 03/15/2020 325 MG mg) by mouth every 6 tabletIndications: S/P hours as needed for surgical removal of mild pain pilonidal cyst calcium carbonate 600 Take 1 tablet by mouth 0 01/16/2020 mg-vitamin D 400 units 2 times daily (CALCIUM 600 + D) 600-400 MG-UNIT per tablet ibuprofen Take 1 tablet (600 mg) 30 tablet 0 01/09/2020 (ADVIL/MOTRIN) 600 MG by mouth every 6 hours tabletIndications: S/P as needed for fever surgical removal of ((temp greater than pilonidal cyst 38.0C, 100.4F) or mild pain) levonorgestrel-ethinyl Take 1 tablet by mouth 84 tablet 3 1 08/25/2016 06/26/2020 estradiol (SEASONALE) daily 0.15-0.03 MG per tabletIndications: Encounter for surveillance of contraceptive pills magnesium hydroxide Take 5-10 mLs by mouth 0 12/1803/15/2020 (MILK OF MAGNESIA) 400 daily as needed for MG/5ML constipation or suspensionIndications: heartburn S/P surgical removal of pilonidal cyst metFORMIN (GLUCOPHAGE) Take 500 mg by mouth 2 0 03/28/2020 500 MG tablet times daily For appetite suppression/ seraquel oxyCODONE (ROXICODONE) Take 0.5-1 tablets 8 tablet 0 01/0803/15/2020 5 MG tabletIndications: (2.5-5 mg) by mouth S/P surgical removal of every 4 hours as pilonidal cyst needed for moderate to severe pain QUEtiapine ER (SEROQUEL Take 400 mg by mouth 0 03/15/2020 XR) 200 MG 24 hr At Bedtime With 300 to tabletIndications: make 500 mg Anxiety QUEtiapine ER (SEROQUEL Take 400 mg by mouth 0 03/15/2020 XR) 300 MG 24 hr At Bedtime With 200 to tabletIndications: make 500 mg Anxiety Vitamin D, Take 1 capsule by 0 020 Cholecalciferol, 1000 mouth daily units CAPS documented as of this encounter Progress Notes Geneva Jama MD - 01/10/2020 8:42 AM CDT PEDIATRIC SURGERY PROGRESS NOTE 01/10/2020 Subjective No acute events overnight. Having pain around incision. Tolerating diet. Vitals wnl. Objective Temp: [97.7 ??F (36.5 ??C)-98.8 ??F (37.1 ??C)] 98.5 ??F (36.9 ??C) Pulse: [71-106] 83 Heart Rate: [72-104] 72 Resp: [12-20] 14 BP: (93-129)/(40-93) 93/43 SpO2: [98 %-100 %] 99 % General: AAOx4, NAD, lying comfortably in bed CV: regular rate warm, well-perfused Pulm: no dyspnea, breathing comfortably on RA Abd: soft, non-distended Anorectal: Wound clean and dry with blue vessel loop in place Extremities: no edema Neuro: moving all extremities spontaneously without apparent deficit I/O last 3 completed shifts: In: 1833 [P.O.:730; I.V.:1103] Out: 1200 [Urine:1200] Assessment & Plan 19 YO F with history of pilonidal disease s/p pilonidal cyst excision (01/08). -Continue pain control with tylenol, ibuprofen, oxycodone -Regular diet -Discharge to home today -Follow up in two weeks for wound check and vessel loop removal Alva Carver MD Surgery Resident, PGY2 I saw and evaluated the patient. I agree with the findings and plan of care as documented in the resident's note. Geneva Jama Tiffani Dhillon CCLS - 01/09/2020 12:24 PM CDT 01/09/20 1222 Child Life Location Surgery (Pilondial Cyst Excision) Intervention Family Support Family Support Comment Pt's mother (Eleanor) present today. [place] [facility] how pt coped in pre-op today. Per Eleanor, She did so well, there was not much we needed. Shewas able to tell the nurse where she prefers her IV. Eleanor expressed appreciation for CFL check-in today. Outcomes/Follow Up Referral (Pt referral given to [facility] for further support as needed.) documented in this encounter Nursing Notes Tiffanie Dailey RN - 01/09/2020 1:01 PM CDT 1250 md López anes to bedside to talk with patient. signout received. Tiffanie Dailey RN - 01/09/2020 12:53 PM CDT PACU to Inpatient Nursing Handoff Patient Beth Morales is a 19 year old female who speaks Tristanian. Procedure Procedure(s): EXCISION, PILONIDAL CYST Surgeon(s) Primary: Geneva Jama MD Resident - Assisting: Alva Carver MD Allergies Allergen Reactions ??? Nkda [No Known Drug Allergies] ??? Seasonal Allergies Isolation @ISOLATION@ Past Medical History has a past medical history of ADHD (attention deficit hyperactivity disorder), Behavior symptom, Chromosomal abnormality, CONGEN URETHRAL STENOSIS (12/16/2005), Learning disability, Noninfectious ileitis, and Tonsillar abscess, S/P drainage (07/16/2014). Anesthesia General Dermatome Level Preop Meds acetaminophen (Tylenol) - time given: 943 Nerve block Not applicable Intraop Meds fentaNYL (SUBLIMAZE) injection (mcg) 50 mcg Given Intravenous 01/09/20 1009 Evelia Bradshaw Total dose as of 01/09/20 1052 50 mcg lidocaine 2% (mg) 40 mg Given Intravenous 01/09/20 1010 Evelia Bradshaw Total dose as of 01/09/20 1052 40 mg propofol (DIPRIVAN) injection 10 mg/mL vial (mg) 160 mg Given Intravenous 01/09/20 1010 Evelia Bradshaw Total dose as of 01/09/20 1052 40 mg Given Intravenous 1011 Evelia Bradshaw 200 mg rocuronium 10mg/mL (mg) 50 mg Given Intravenous 01/09/20 1011 Evelia Bradshaw Total dose as of 01/09/20 1052 50 mg ondansetron 2mg/mL (mg) 4 mg Given Intravenous 01/09/20 1034 Evelia Bradshaw Total dose as of 01/09/20 1052 4 mg sugammadex (BRIDION) 200mg/2ml (mg) 160 mg Given Intravenous 01/09/20 1034 Evelia Bradshaw Total dose as of 01/09/20 1052 160 mg cefOXitin (MEFOXIN) 1 g vial to attach to NS 100 mL bag for ADULTS or 25 mL bag for PEDS (g) 1 g (over 30 min) Given Intravenous 01/09/20 1019 Evelia Bradshaw Dosing weight: 79.4 kg Total dose as of 01/09/20 1052 1 g dexmedetomidine (PRECEDEX) 4 mcg/mL bolus (mcg) 20 mcg New Bag Intravenous 01/09/20 1049 Karoline Guzman APRN CRNA Total dose as of 01/09/20 1052 20 mcg LR (mL) New Bag Intravenous 01/09/20 1004 Evelia Bradshaw Total volume as of 01/09/20 1052 400 mL Anesthesia Volume Adjustment Intravenous 1049 Karoline Guzman APRN CRNA 400 mL Local Meds No Antibiotics cefoxitin (Mefoxin) - last given at 1052 Pain Patient Currently in Pain: no Comfort: tolerable with discomfort Pain Control: partially effective PACU meds fentanyl (Sublimaze): 100 mcg (total dose) last given at 1050 hydromorphone (Dilaudid): 0.8 mg (total dose) last given at 1135 ibuprofen (Advil/Motrin): 600 mg (total dose) last given at 1244 ondansetron (Zofran): 4 mg (total dose) last given at 1130 scop patch at 1156 Benadryl 25mg at 1122 Haldol 2mg at 1136 STRADDLE BUG OPERATOR / epidural No Capnography Telemetry ECG Rhythm: Normal sinus rhythm Inpatient Crop Scout Ordered? No Labs Glucose Lab Results Component Value Date GLC 75 12/16/2018 Hgb Lab Results Component Value Date HGB 10.3 11/15/2019 INR No results found for: INR PACU Imaging Not applicable Wound/Incision Incision/Surgical Site 01/09/20 Posterior Buttocks (Active) Incision Assessment Drainage 01/09/20 1230 Incision Drainage Amount Scant 01/09/20 1230 Drainage Description Serosanguinous 01/09/20 1230 Dressing Intervention Moist drainage 01/09/20 1230 Number of days: 0 CMS Equipment Not applicable Other LDA IV Access Peripheral IV 01/09/20 Right Hand (Active) Site Assessment WDL 01/09/20 1230 Line Status Infusing 01/09/20 1230 Phlebitis Scale 0-->no symptoms 01/09/20 1230 Infiltration Scale 0 01/09/20 1230 Extravasation? No 01/09/20 1230 Number of days: 0 Blood Products Not applicable EBL 0 mL Intake/Output Date 01/09/20 0700 - 01/10/20 0659 Shift 6860-1365 6050-3910 7149-7002 24 Hour Total INTAKE P.O. 100 100 I.V. 400 400 Shift Total(mL/kg) 500(6.38) 500(6.38) OUTPUT Shift Total(mL/kg) Weight (kg) 78.4 78.4 78.4 78.4 Drains / Hernandez Open Drain Posterior Buttock (Active) Site Description UTV 01/09/20 1230 Number of days: 0 Time of void PreOp Void Prior to Procedure: 0700(unable to void in pre-op) (01/09/20 0914) PostOp Diapered? No Bladder Scan PO 100 mL (01/09/20 123) tolerating sips and crackers Vitals B/P: 102/62 T: 98.2 ??F (36.8 ??C) Temp src: Axillary P: Pulse: 72 (01/09/20 123) R: 14 O2: SpO2: 99 % O2 Device: None (Room air) (01/09/201229) Family/support present mother Patient belongings Patient transported on bed DC meds/scripts (obs/outpt) Not applicable Inpatient Pain Meds Released? Yes Special needs/considerations Tasks needing completion None Tiffanie Dailey RN ASCOM [id number] Asia Chung RN - 01/09/2020 10:19 AM CDT Patient unable to void in pre-op for UPT. Dr Dawn notified and is okay to proceed with surgery today without test. documented in this encounter Miscellaneous Notes Op Note - Geneva Jama MD - 01/10/2020 12:30 PM CDT Procedure Date: 01/09/2020 PREOPERATIVE DIAGNOSIS: Pilonidal cyst. POSTOPERATIVE DIAGNOSIS: Pilonidal cyst. PROCEDURE PERFORMED: Pilonidal cyst excision. SURGEON: Geneva Jama Jr., MD ESTIMATED BLOOD LOSS: Less than 1 mL COMPLICATIONS: None. BRIEF CLINICAL HISTORY: This is a patient with pilonidal cyst, who presents for excision. I discussed proposed procedure with the patient and her mother including the risks, benefits and expected outcomes. They verbalized understanding and wished to proceed. DESCRIPTION OF OPERATIVE PROCEDURE: After informed consent was obtained, the patient was taken to the operating room, induced under general anesthesia, placed in the prone position on the operating table. She was prepped and draped in the standard sterile surgical fashion. The fistula probe and incision made around the cyst. The cyst was dissected out in its entirety. The wound was closed with 2-0 Vicryl, subcutaneous stitches and 4-0 PDS subdermal stitch and interrupted 4-0 PDS stitches in the skin. A blue vessel loop was tunneled through the wound. The patient tolerated this procedure well and was transferred to the postanesthesia care in good condition at the end of the case. Sponge and needle counts were correct at the end of the case. GENEVA JAMA JR, MD MT: JONNIE Name: BETH MORALES MRN: [id number] Account: [id number] : 2000 Procedure Date: 01/09/2020 Document: [id number] Plan of Care - Delfina Banks RN - 01/10/2020 12:30 PM CDT Afebrile, VSS. Pain 3/10. PRN Oxycodone x1, Ibuprofen x1, and scheduled Tylenol x1 for pain management. Small amount of drainage at site. Showered and cleansed incision with technicare. New dressing applied. Eating and drinking. Discharged home with mom at 1200. Pharmacy - Discharge Medication Reconciliation and Education - Reji Davila RPH - 01/10/2020 9:12 AM CDT Discharge medication review for this patient completed. Pharmacist provided medication teaching for discharge with a focus on new medications/dose changes. The discharge medication list was reviewed with Mom via phone and the following points were discussed, as applicable: Name, description, purpose, dose/strength, strategies for giving medications to children, common side effects, food/medications to avoid and when to call MD. Mom was engaged during teaching and verbalized understanding. Did not have medications in hand during teach due to phone genetic counsellor. The following medications were discussed: Current Discharge Medication List START taking these medications Details acetaminophen (TYLENOL) 325 MG tablet Take 2 tablets (650 mg) by mouth every 6 hours as needed for mild pain Qty: 1 Bottle, Refills: 0 Associated Diagnoses: S/P surgical removal of pilonidal cyst oxyCODONE (ROXICODONE) 5 MG tablet Take 0.5-1 tablets (2.5-5 mg) by mouth every 4 hours as needed for moderate to severe pain Qty: 8 tablet, Refills: 0 Associated Diagnoses: S/P surgical removal of pilonidal cyst CONTINUE these medications which have CHANGED Details ibuprofen (ADVIL/MOTRIN) 600 MG tablet Take 1 tablet (600 mg) by mouth every 6 hours as needed for fever ((temp greater than 38.0C, 100.4F) or mild pain) Qty: 30 tablet, Refills: 0 Associated Diagnoses: S/P surgical removal of pilonidal cyst CONTINUE these medications which have NOT CHANGED Details calcium carbonate 600 mg-vitamin D 400 units (CALCIUM 600 + D) 600-400 MG-UNIT per tablet Take 1 tablet by mouth 2 times daily levonorgestrel-ethinyl estradiol (SEASONALE) 0.15-0.03 MG per tablet Take 1 tablet by mouth daily Qty: 84 tablet, Refills: 3 Associated Diagnoses: Encounter for surveillance of contraceptive pills METFORMIN HCL PO Take 500 mg by mouth 2 times daily For appetite suppression/ seraquel !! QUEtiapine ER (SEROQUEL XR) 200 MG 24 hr tablet Take 1 tablet (200 mg) by mouth At Bedtime With 300 to make 500 mg Qty: Associated Diagnoses: Anxiety !! QUEtiapine ER (SEROQUEL XR) 300 MG 24 hr tablet Take 1 tablet (300 mg) by mouth At Bedtime With 200 to make 500 mg Qty: Associated Diagnoses: Anxiety Vitamin D, Cholecalciferol, 1000 units CAPS Take 1 capsule by mouth daily !! - Potential duplicate medications found. Please discuss with provider. Plan of Care - Edyta Marie RN - 01/10/2020 6:48 AM CDT 9491-8741: VSS, ex BP's on the softer end. LS clear on RA. C/o lower back pain 4-7/10, scheduled tylenol, oxycodone x1 and ibuprofen x1 with moderate relief. No complaints of nausea overnight. Voiding.Lower back dressing changed x1 with small amount of drainage. PCDs on. Slept well overnight. Mother at bedside. Continue plan of care. Discharge home today. Plan of Care - Saloni Hoyos RN - 01/09/2020 10:01 PM CDT AVSS. LS clear on RA. C/o lower back pain intermittently throughout evening; PRN oxycodone x2 and PRN ibuprofen x1 with moderate relief. Good PO intake. C/o nausea x1; PRN zofran x1; no emesis. Good UOP; no stool. Lower back dressing changed and cleansed per order and PRN. PIV remains saline locked; flushes well. PCDs on. Mom at bedside and updated on POC for evening. Hourly rounding completed. Will continue to monitor and reassess. Plan of Care - Delfina Bansk RN - 01/09/2020 3:00 PM CDT PACU transfer at 1330. Pain rated 1/10. Scheduled Tylenol and PRN Oxycodone x1 given. Eating and drinking. Small amount of drainage from incision/loop. Dressing changed. Mom at bedside. Continue to monitor. Brief Op Note - Alva Carver MD - 01/09/2020 10:43 AM CDT [facility] [place] Brief Operative Note Pre-operative diagnosis: Pilonidal disease [L98.8] Post-operative diagnosis Same as pre-operative diagnosis Procedure: Procedure(s): EXCISION, PILONIDAL CYST Surgeon: Surgeon(s) and Role: * Geneva Jama MD - Primary * Alva Carver MD - Resident - Assisting Anesthesia: General Estimated blood loss: Minimal Drains: Blue large vessel loop Specimens: ID Type Source Tests Collected by Time Destination A : Pilonidal cyst Tissue Buttock SURGICAL PATHOLOGY EXAM Geneva Jama MD 01/09/2020 10:26 AM Findings: Two pits identified and probed with lacrimal duct probe. Entire pilonidal tract excised, all beefy red granulation tissue removed. Blue vessel loop placed through base of wound. Wound closed in multple layers. . Complications: None. Implants: * No implants in log * -Admit to surgery obs for pain control Alva Carver MD Surgery Resident, PGY2 documented in this encounter Plan of Treatment Not on filedocumented as of this encounter Procedures Procedure Name Priority Date/Time Associated Comments Diagnosis SURGICAL PATHOLOGY Routine 01/09/2020 10:26 AM Re sults for this EXAM CDT procedure are i n the results section. CYSTECTOMY PILONIDAL Routine 01/09/2020 8:38 AM Pilonidal dise ase CDT documented in this encounter Results Surgical pathology exam (01/09/2020 10:26 AM CDT) Component Value Ref Test Analysis Performed At [facility] Range Method Time Signature Copath Report Patient Name: BETH MORALES MR#: [id number] Specimen #: [id number] Collected: 01/09/2020 Received: 01/09/2020 Reported: 01/10/2020 16:36 Ordering Phy(s): GENEVA JAMA For improved result formatting, select 'View Enhanced Report Format' under Linked Documents section. SPECIMEN(S): Pilonidal cyst, buttock FINAL DIAGNOSIS: Pilonidal cyst, buttock: - Benign squamous epithelium with subcutaneous hemorrhage, s car tissue and granulation tissue consistent with pilonidal cyst - Focal foreign body giant cell reaction with hair particles - Negative for malignancy I have personally reviewed all specimens and/or slides, incl uding the listed special stains, and used them with my medical judgement to determine or confirm the final diagnosis. Electronically signed out by: Amanuel Thorpe M.D., Sandra GROSS: A: The specimen is received in formalin with proper patient identification, labeled pilonidal cyst. ??The specimen consists of a 2.5 x 0.4 cm strip of skin and subcut aneous tissue, excised to a maximum depth of 2.0 cm. ??The skin surface reveals a linear indentation. ??Sec tioning reveals a 1.4 x 0.8 x 0.6 cm red cyst like structure. ??No firm areas are present. ??Treatment Coordinator sec tions are submitted in cassette A 1. (Dictated by: Darby [facility] 01/09/2020 01:17 PM) MICROSCOPIC: Microscopic examination was performed. The technical component of this testing was completed at the [facility], with the professional compo nent performed at the [facility], [address] [place] [phone] ([phone]) CPT Codes: A: 60334-WQ0 COLLECTION SITE: Client: [facility] Location: UROR (B) Resident [id number] Specimen (Source) Anatomical Collection Method Collection Time Re ceived Time Location / / Volume Laterality Tissue specimen BUTTOCK STRUCTURE 01/09/2020 10:26 (specimen) / Unknown AM CDT [place] [facility] - CORTNEY RAMIREZ Performing Organization Address City/State/ZIP Code Phon e Number COPATH documented in this encounter Visit Diagnoses Diagnosis Pilonidal disease - Primary Other specified disorder of skin S/P surgical removal of pilonidal cyst documented in this encounter Admitting Diagnoses Diagnosis Pilonidal disease Other specified disorder of skin documented in this encounter Administered Medications Inactive Administered Medications - up to 3 most recent administrations Medication Order MAR Action Action Date Dose Rate Site acetaminophen (TYLENOL) tablet Given 01/09/2020 9:44 AM CDT 1,00 0 mg 1,000 mg 1,000 mg, Oral, ONCE, On Wed01/09/20 at 0845, For 1 dose, Maximum acetaminophen dose from all sources = 75 mg/kg/day not to exceed 4 gram, Pre-procedure acetaminophen (TYLENOL) tablet 650 mg Given 01/10/2020 7:37 AM CDT 650 mg 650 mg, Oral, EVERY 6 HOURS, First dose on Wed01/09/20 at 1345, Fever (temp greater than 38.0C, 100.4F). If pain is not improved after 15 minutes, consider giving ibuprofen or other non-acetaminophen containing analgesic (if ordered) or call provider. Maximum acetaminophen dose from all sources = 75 mg/kg/day not to exceed 4 grams/day. Given 01/10/2020 1:30 AM CDT 650 mg Given 01/09/2020 7:36 PM CDT 650 mg cefOXitin (MEFOXIN) 1 g vial to attach to NS New Bag 0 6:51 PM CDT 1 g 100 mL bag for ADULTS or 25 mL bag for P EDS Routine, 1 g, Intravenous, ONCE, On Wed01/09/20 at 1800, For 1 dose, Indications: Skin and Soft Tissue Infection diphenhydrAMINE (BENADRYL) injection 25 mg Given 01/09/2020 11:22 AM CDT 25 mg 25 mg, Intravenous, Administer over 15 Minutes, ONCE, On Wed01/09/20 at 1200, For 1 dose, For ordered IV doses 1-50 mg, give IV Push undiluted. Give each 25mg over a minimum of 1 minute. Extend in non-emergency, PACU fentaNYL (PF) (SUBLIMAZE) injection 100 mcg Given 01/09/2020 10:50 AM CDT 100 mcg 100 mcg, Intravenous, ONCE, On Wed01/09/20 at 1115, For 1 dose, For ordered IV doses 1-100 mcg give IV Push undiluted over a minimum of 3-5 minutes., PACU haloperidol lactate (HALDOL) injection 2 mg Given 01/09/2020 11:36 AM CDT 2 mg 2 mg, Intravenous, ONCE, Administer over 1 Minutes, On Wed01/09/20 at 1145, For 1 dose, For ordered doses up to 5 mg, drug can be give IV Push undiluted over 1 minute., PACU HYDROmorphone (PF) (DILAUDID) injection 0.4 Given 12/18 11:35 AM CDT 0.4 mg mg 0.4 mg (rounded from 0.397 mg = 0.005 mg/kg ? 79.4 kg), Intravenous, EVERY 10 MIN PRN, moderate to severe pain, if Respiratory Rate greater than or equal to 80% of pre-op Respiratory Rate (or greater than 15/min)., Starting on Wed01/09/20 at 1038, For 3 doses, May administer if Respiratory Rate is greater than 10. For ordered IV doses 0.1-4 mg give IV Push undiluted. Administer each 2mg over 2-5 minutes., PACU Given 01/09/2020 11:00 AM CDT 0.4 mg ibuprofen (ADVIL/MOTRIN) tablet 600 mg Given 01/09/2020 12:44 PM CDT 600 mg 600 mg, Oral, EVERY 6 HOURS PRN, moderate pain, Starting on Wed01/09/20 at 1151, PACU ibuprofen (ADVIL/MOTRIN) tablet 600 mg Given 01/10/2020 11:44 AM CDT 600 mg 600 mg, Oral, EVERY 6 HOURS PRN, fever, (temp greater than 38.0C, 100.4F) or mild pain, Starting on Wed01/09/20 at 1900, Max 3.2 g/day. Use acetaminophen first, if ordered. Recommended for use in infants 6 months and older. Given 01/10/2020 3:45 AM CDT 600 mg Given 01/09/2020 9:26 PM CDT 600 mg naloxone (NARCAN) injection 0.1-0.4 mg 0.1-0.4 mg, Intravenous, EVERY 2 MIN PRN , opioid reversal, Starting on Wed01/09/20 at 1339, For respiratory rate LESS than or EQUAL to 8. Partial reversal dose: 0.1 mg titrated q 2 minutes for Analgesia Si de Effects Monitoring Sedation Level of 3 (frequently drowsy, arousable, drifts to sleep during conversation).Full reversal dose: 0.4 mg bolus for Analgesia Side Effects Monitori ng Sedation Level of 4 (somnolent, minimal or no response to st imulation). For ordered IV doses 0.1-2mg give IVP. Give each 0.4mg over 15 second s in emergency situations. For non-emergent situations further dilute in 9mL of NS to facilitate t itration of response. ondansetron (ZOFRAN-ODT) ODT tab 4 mg Given 01/09/2020 8:54 PM CDT 4 mg 4 mg, Oral, EVERY 6 HOURS PRN, nausea, vomiting, Starting on Wed01/09/20 at 2047, With dry hands, peel back foil backing and gently remove tablet. Do not push oral disintegrating tablet through foil backing. Administer immediately on tongue and oral disintegrating tablet dissolves in seconds, then swallow with saliva. Liquid not required. oxyCODONE (ROXICODONE) tablet 5 mg Given 01/10/2020 7:42 AM CDT 5 mg 5 mg, Oral, EVERY 4 HOURS PRN, moderate to severe pain, Starting on Wed01/09/20 at 1105 Given 01/10/2020 1:30 AM CDT 5 mg Given 01/09/2020 9:34 PM CDT 5 mg QUEtiapine ER (SEROquel XR) 24 hr tablet 200 Given 9:27 PM CDT 200 mg mg 200 mg, Oral, AT BEDTIME, First dose on Wed01/09/20 at 2100, DO NOT CRUSH. QUEtiapine ER (SEROquel XR) 24 hr tablet 300 Given 9:26 PM CDT 300 mg mg 300 mg, Oral, AT BEDTIME, First dose on Wed01/09/20 at 2100, DO NOT CRUSH. scopolamine Patch/Med Applied 01/09/2020 11:56 AM 1 patch Behind Right (TRANSDERM) 72 hr CDT Ear patch 1 patch 1 patch, Transdermal, ONCE, On Wed01/09/20 at 1200, For 1 dose, Each 1.5 mg patch delivers 1 mg of scopolamine. Reminder: Remove previous patch before applying new patch., PACU sodium chloride (PF) 0.9% PF flush 0.2-5 mL 0.2-5 mL, Intracatheter, EVERY 1 MIN PRN , line flush, peripheral line flush post medications or blood draws, Starting on Wed01/09/20 at 1558, 0.2-3 mL post IV meds 0.2-5 mL post blood draw Volume is dependent on cathet er size. sodium chloride (PF) 0.9% PF flush 3 mL Given 01/10/2020 7:44 AM CDT 3 mLs 3 mL, Intracatheter, EVERY 8 HOURS, First dose on Wed01/09/20 at 1600, And Q1H PRN, to lock peripheral IV dormant line. Given 01/09/2020 11:53 PM CDT 3 mLs Given 01/09/2020 4:00 PM CDT 3 mLs documented in this encounter Active and Recently Administered Medications Times are shown in CDT. Scheduled Medication Order 01/08/2020 01/09/2020 01/10/2020 acetaminophen (TYLENOL) tablet 1,000 mg (COMPLETED) 943 (Given - Provider: Asia Chung, JAZMYNE) 1,000 mg, Oral, ONCE, Wed01/09/20 at 084 5, For 1 dose, Maximum acetaminophen dose from all sources = 75 mg/kg/day not to exceed 4 gram, Pre-procedure acetaminophen (TYLENOL) tablet 650 mg 14 06 (Given - Provider: Delfina Banks RN)1936 (Given - Provider: Saloni Hoyos, JAZMYNE) 0130 (Given - Provider: Edyta Marie, JAZMYNE)0737 (Given - Provider: Delfina Banks RN)1345 (Canceled Entry - Provider: Orders Generic Provider - Comment: Automatically canceled at discontinue of medication order) 650 mg, Oral, EVERY 6 HOURS, First dose on Wed01/09/20 at 1345, Fever (temp greater than 38.0C, 100.4F). If pain is not improved after 15 minutes, consider giving ibuprofen or other non-acetaminophen co ntaining analgesic (if ordered) or call provider. Maximum acetaminophen dose from all sources = 75 mg/kg/day not to exceed 4 grams/day. cefOXitin (MEFOXIN) 1 g vial to attach t o NS 100 mL bag for ADULTS or 25 mL bag for PEDS (CANCELED) 1019 (Given - Provider: Estevan Bradshaw)1230 (Canceled Entry - Provider: Orders Generic Provider - Comment: Automatically canceled at discontinue of medication order) Routine, 1 g, Intravenous, SEE ADMIN INS TRUCTIONS, Starting 01/09/20 at 1230, DO NOT GIVE intra-op dose if CrCl less than 10 mL/min (on dialysis). If CrCL10- 50 mL/min, double the time interval betwee n doses., Indications: Perioperative Pharmacoprophylaxis, Intra- procedure cefOXitin (MEFOXIN) 1 g vial to attach t o NS 100 mL bag for ADULTS or 25 mL bag for PEDS (COMPLETED) 1850 (New Bag - Provider: Antonio Hoyos, RN)1943 (Stopped - Provider: Saloni Hoyos, JAZMYNE) Routine, 1 g, Intravenous, ONCE, Tue 12/18 10/05 at 1800, For 1 dose, Indications: Skin and Soft Tissue Infection diphenhydrAMINE (BENADRYL) injection 25 mg (COMPLETED) 112 (Given - Provider: Jhoan Cook RN) 25 mg, Intravenous, Administer over 15 M inutes, ONCE, e 01/09/20 at 1200, For 1 dose, For ordered IV doses 1-50 mg, give IV Push undiluted. Give each 25mg over a minimum of 1 minute. Extend in non-emergency, PACU fentaNYL (PF) (SUBLIMAZE) injection 100 mcg (COMPLETED) 1050 (Given - Provider: Jhoan Cook, JAZMYNE) 100 mcg, Intravenous, ONCE, 01/09/20 at 1115, For 1 dose, For ordered IV doses 1-100 mcg give IV Push undiluted over a minimum of 3-5 minutes., PACU haloperidol lactate (HALDOL) injection 2 mg (COMPLETED) 113 (Given - Provider: Jhoan Cook, JAZMYNE) 2 mg, Intravenous, ONCE, Administer over 1 Minutes, 01/09/20 at 1145, For 1 dose, For ordered doses up to 5 mg, drug can be give IV Push undiluted over 1 minute., PACU QUEtiapine ER (SEROquel XR) 24 hr tablet 200 mg 2126 (Given - Provider: Saloni Hoyos, JAZMYNE) 200 mg, Oral, AT BEDTIME, First dose on e 01/09/20 at 2100, DO NOT CRUSH. QUEtiapine ER (SEROquel XR) 24 hr tablet 300 mg 2126 (Given - Provider: Saloni Hoyos RN) 300 mg, Oral, AT BEDTIME, First dose on Wed01/09/20 at 2100, DO NOT CRUSH. scopolamine (TRANSDERM) 72 hr patch 1 patch (COMPLETED) 1156 (Patch/Med Applied - Provider: Jhoan Cook RN) 1 patch, Transdermal, ONCE, Wed01/09/20 at 1200, For 1 dose, Each 1.5 mg patch delivers 1 mg of scopolamine. Reminder: Remove previous patch before applying new patch., PACU sodium chloride (PF) 0.9% PF flush 3 mL 1600 (Given - Provider: Saloni Hoyos RN)2353 (Given - Provider: Edyta Marie, RN) 0744 (Given - Provider: Delfina Banks RN) 3 mL, Intracatheter, EVERY 8 HOURS, Firs t dose on Wed01/09/20 at 1600, And Q1H PRN, to lock peripheral IV dormant line. PRN Medication Order 01/08/2020 01/09/2020 01/10/2020 HYDROmorphone (PF) (DILAUDID) injection 0.4 mg (CANCELED) 1100 (Given - Provider: Jhoan Cook, JAZMYNE)1135 (Given - Provider: Jhoan Cook RN) 0.4 mg (rounded from 0.397 mg = 0.005 mg /kg ? 79.4 kg), Intravenous, EVERY 10 MIN PRN, moderate to severe pain, if Respiratory Rate greater than or equal to 80% of pre-op Respiratory Rate (or greater t townsend 15/min)., Starting Wed01/09/20 at 10 38, For 3 doses, May administer if Respiratory Rate is greater than 10. For ordered IV doses 0.1-4 mg give IV Push undiluted. Administer each 2mg over 2-5 minutes., PACU ibuprofen (ADVIL/MOTRIN) tablet 600 mg (CANCELED) 1244 (Given - Provider: Tiffanie Dailey RN) 600 mg, Oral, EVERY 6 HOURS PRN, moderat e pain, Starting Wed01/09/20 at 1151, PACU ibuprofen (ADVIL/MOTRIN) tablet 600 mg 2 126 (Given - Provider: Saloni Hoyos RN) 0345 (Given - Provider: Edyta Marie RN - Comment: Given during EPIC downtime)1144 (Given - Provider: Delfina Banks RN) 600 mg, Oral, EVERY 6 HOURS PRN, fever, (temp greater than 38.0C, 100.4F) or mild pain, Starting Wed01/09/20 at 1900, Max 3.2 g/day. Use acetaminophen first, if ordered. Recommended for use in infants 6 months and older. morphine (PF) injection 1 mg 1 mg, Intravenous, EVERY 4 HOURS PRN, mo derate to severe pain, Starting Wed01/09/20 at 1105, For ordered IV doses 0.1-15 mg give IV Push undiluted over 4-5 minutes. naloxone (NARCAN) injection 0.1-0.4 mg 0.1-0.4 mg, Intravenous, EVERY 2 MIN PRN , opioid reversal, Starting Wed01/09/20 at 1339, For respiratory rate LESS than or EQUAL to 8. Partial reversal dose: 0.1 mg titrated q 2 minutes for Analgesia Si de Effects Monitoring Sedation Level of 3 (frequently drowsy, arousable, drifts to sleep during conversation).Full reversal dose: 0.4 mg bolus for Analgesia Side Effects Monitoring Sedation Level of 4 ( somnolent, minimal or no response to sti mulation). For ordered IV doses 0.1-2mg give IVP. Give each 0.4mg over 15 seconds in emergency situations. For non- emergent situations further dilute in 9mL of NS to facilitate titration of response. ondansetron (ZOFRAN-ODT) ODT tab 4 mg 20 54 (Given - Provider: Saloni Hoyos RN) 4 mg, Oral, EVERY 6 HOURS PRN, nausea, v omiting, Starting Wed01/09/20 at 2047, With dry hands, peel back foil backing and gently remove tablet. Do not push oral disintegrating tablet through foil backin g. Administer immediately on tongue and oral disintegrating tablet dissolves in seconds, then swallow with saliva. Liquid not required. oxyCODONE (ROXICODONE) tablet 5 mg 1406 (Given - Provider: Delfina Banks RN)1733 (Given - Provider: Saloni Hoyos RN)2134 (Given - Provider: Saloni Hoyos RN) 0130 (Given - Provider: Edyta Marie RN)0787 (Given - Provider: Delfina Banks, JAZMYNE) 5 mg, Oral, EVERY 4 HOURS PRN, moderate to severe pain, Starting 01/09/20 at 1105 sodium chloride (PF) 0.9% PF flush 0.2-5 mL 0.2-5 mL, Intracatheter, EVERY 1 MIN PRN , line flush, peripheral line flush post medications or blood draws, Starting 01/09/20 at 1558, 0.2-3 mL post IV meds 0.2-5 mL post blood draw Volume is dependent on catheter size. documented in this encounter Additional Health Concerns Assessment Noted Time PHQ-9 Depression Total Score: 7 11/13/2019 11:26 AM CD T documented as of this encounter Care Teams [employer] Relationship Specialty Start Date End Date Queta Fritz MD PCP - General Pediatrics 12/19/15 05/27/20 [address] [address] [place] [address] [id number] Queta Fritz MD Assigned PCP 03/04/14 04/12/21 [address] [place] [id number] documented as of this encounter
--- OUTSIDE RECORDS SUMMARY | 2022-04-23 23:42 | XMS_ITS | Encounter Summary ---
:2000 Author Organization [facility] Address [address] [place] [address]. [place] [address] Care Team Providers Name Role Phone Queta Fritz MD Primary Care Provider [phone] Queta Fritz MD Unavailable [phone] Reason for Visit Auth/Cert Specialty Diagnoses / Procedures Referred By Contact Refer red To Contact Surgery Diagnoses Pilonidal disease Pilonidal disease [L98.8] Ur Periop Procedures HC EXCISION PILONIDAL LESION SIMPLE HC EXCISION PILONIDAL LESION EXTENSIVE HC EXCISION PILONIDAL LESION COMPLICATED EXCISION, PILONIDAL CYST [address] [facility] [place] [address] Phone: Fax: Referral ID Status Reason Start Date Expiration Date Visits Requ ested Visits Authorized [id number] 1 1 Encounter Details Date Type Department Care Team Description 01/09/2020 Anesthesia Event M [facility] ED Wan Dawn MD PeriOp Services [address] [facility] [address] [place] [address] [place] [phone] Anesthesia Record Procedure Summary Procedure Name Responsible Anesthesia Start Anesthesia Stop Time Anesthesiologist Time EXCISION, TYLERDAL Wan Dawn MD 01/09/20 1004 1052 CYST (N/A Buttocks) Events Date Time Event Comment 01/09/2020 0942 1004 An Start 1004 An Start Data 1005 MD Present 1010 An Induction 1012 MD Present 1013 An Intubation 1015 Anesthesia Complete 1016 an humphrey now Flipped prone 1019 MD Present 1022 AN INCISION 1040 MD Present 1041 AN Extubation 1045 an stop data 1047 MD Present 1051 MD Present 1052 An Stop Electronically s igned by Karoline Guzman APRN CRNA on Dec 10:52 AM Name Total fentaNYL (SUBLIMAZE) injection 50 mcg lidocaine 2% 40 mg propofol (DIPRIVAN) injection 10 mg/mL vial 200 mg rocuronium 10mg/mL 50 mg ondansetron 2mg/mL 4 mg sugammadex (BRIDION) 200mg/2ml 160 mg cefOXitin (MEFOXIN) 1 g vial to attach to NS 100 mL ba g for ADULTS or 25 mL 1 g bag for PEDS dexmedetomidine (PRECEDEX) 4 mcg/mL bolus 20 mcg LR 400 mL Agents Name NO HELIOX O2 N2O Air Exp Sevoflurane Exp Isoflurane Exp Desflurane Exp N2O Ins Sevoflurane Ins Isoflurane Ins Desflurane O2 Auxiliary Blood No blood administrations on file. Lines, Drains, and Airways Type Details Placement Removal Peripheral IV 01/09/20; 1005; 22 G; 01/09/20 1005 by 01/10/20 1159 by Right; Hand; Asia Chung, Delfina Bentley, R N Chlorhexidine; Injectable RETIRED ETT 01/09/20; 1013; Mask 01/09/20 1013 by 01/09/20 1 041 by Ventilation: Easy; Evelia Bradshaw Michelle Ease of Intubation: Easy; Airway Size: 6.5; Cuffed; Oral; Blade Type: Richards; Blade Size: 2; Place by: Thomas DAVIS; Insertion Attempts: 1; Secured at (cm)to lip: 22 cm; Breath Sounds: Equal, clear and bilateral; End Tidal CO2: Present; Dentition: Intact, Unchanged; Grade View of Cords: 1 Incision/Surgical Site 01/09/20; 1023; 01/09/20 1023 by 05/27/20 0717 by Posterior; Buttocks; Oliva Agudelo, JAZMYNE Fall, Trac y A, RN 05/27/20; 0717 Open Drain 01/09/20; 1027; 01/09/20 1027 by 05/27/20 0717 b y Posterior; Buttock; Oliva Agudelo RN Fall, Dixie Duffy RN (Blue maxi vessel loop) documented in this encounter Social History Tobacco Use Types Packs/Day Years [...] do you attend anabaptism or Never 2018 scientology services? 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 documented as of this encounter OR Notes Anesthesia Postprocedure Evaluation - Wan Dawn MD - 01/09/2020 12:57 PM CDT Anesthesia POST Procedure Evaluation Patient: Mahi Faye Gender: female Age: [age] year old : 2000 Preoperative Diagnosis: Pilonidal disease [L98.8] Procedure(s): EXCISION, PILONIDAL CYST Postop Comments: No value filed. Anesthesia Type: General Disposition: Admission Postop Pain Control: Uneventful Sign Out: Well controlled pain PONV: Yes Symptoms: REFRACTORY Nausea + Vomiting Sign Out: PONV/POV resolved with treatment Neuro/Psych: Uneventful Sign Out: Acceptable/Baseline neuro status Airway/Respiratory: Uneventful Sign Out: Acceptable/Baseline resp. status CV/Hemodynamics: Uneventful Sign Out: Acceptable CV status Other NRE: NONE DID A NON-ROUTINE EVENT OCCUR? YES Event details/Postop Comments: - Woke up with significant pain and received opioids for pain management resulting in improved pain,but development of gagging and nausea, had only received Ondansetron in OR for short procedure - Did not respond to additional Diphenhydramine and developed pain again with increasing agitation - Gave dose of Haloperidol (2 mg IV) for nausea, repeated dose of Ondansetron and placed Scopolaminepatch, additional Hydromorphone given - At signout patient is comfortable, nausea is controlled, pain calm and satisfied, ready to transfer to floor Last Anesthesia Record Vitals: RING STAMPER VITALS 01/09/2020 1015 - 01/09/2020 1115 01/09/2020 NIBP: (!) 127/93 Pulse: 95 NIBP Mean: 108 Temp: 36.5 ??C (97.7 ??F) SpO2: 99 % Resp Rate (observed): 16 EKG: NSR Last PACU Vitals: Vitals Value Taken Time BP 102/62 01/09/2020 12:30 PM Temp 36.8 ??C (98.2 ??F) 01/09/2020 12:15 PM Pulse 72 01/09/2020 12:30 PM Resp 14 01/09/2020 12:30 PM SpO2 99 % 01/09/2020 12:30 PM Temp src NIBP 127/93 01/09/2020 10:50 AM Pulse 95 01/09/2020 10:50 AM SpO2 99 % 01/09/2020 10:50 AM Resp Temp 36.5 ??C (97.7 ??F) 01/09/2020 10:50 AM Ht Rate Temp 2 Electronically Signed By: Wan Dawn MD, January 09, 2020, 12:57 PM Anesthesia Preprocedure Evaluation - Wan Dawn MD - 01/08/2020 3:27 PM CDT Anesthesia Pre-Procedure Evaluation Patient: Mahi Faye Gender: female Age: [age] year old : 2000 Preoperative Diagnosis: Pilonidal disease [L98.8] Procedure(s): EXCISION, PILONIDAL CYST LABS: CBC: Lab Results Component Value Date WBC 9.6 11/15/2019 WBC 6.3 04/26/2019 HGB 10.3 (L) 11/15/2019 HGB 10.4 (L) 04/26/2019 HCT 32.2 (L) 11/15/2019 HCT 32.8 (L) 04/26/2019 PLT 356 11/15/2019 PLT 357 04/26/2019 BMP: Lab Results Component Value Date NA 138 12/16/2018 NA 138 04/16/2018 POTASSIUM 3.9 12/16/2018 POTASSIUM 3.8 04/16/2018 CHLORIDE 106 12/16/2018 CHLORIDE 107 04/16/2018 CO2 24 12/16/2018 CO2 25 04/16/2018 BUN 8 12/16/2018 BUN 7 04/16/2018 CR 0.71 12/16/2018 CR 0.74 04/16/2018 GLC 75 12/16/2018 GLC 101 (H) 04/16/2018 COAGS: No results found for: PTT, INR, FIBR POC: Lab Results Component Value Date HCG Negative 11/28/2019 OTHER: Lab Results Component Value Date RUDY 8.6 (L) 12/16/2018 ALBUMIN 3.6 04/26/2019 PROTTOTAL 7.5 12/16/2018 ALT 28 12/16/2018 AST 11 12/16/2018 ALKPHOS 106 12/16/2018 BILITOTAL 0.2 12/16/2018 LIPASE 83 12/16/2018 AMYLASE 41 12/16/2018 TSH 1.18 12/19/2015 CRP 7.1 04/26/2019 SED 36 (H) 11/15/2019 Preop Vitals BP Readings from Last 3 Encounters: 01/09/20 (!) 129/93 (95 %, Z = 1.61 / >99 %, Z >2.33)* 01/03/20 125/82 (87 %, Z = 1.14 / 95 %, Z = 1.61)* 12/20/19 136/85 (98 %, Z = 2.15 / 98 %, Z = 2.02)* *BP percentiles are based on the 2017 AAP Clinical Practice Guideline for girls Pulse Readings from Last 3 Encounters: 01/09/20 106 01/03/20 93 12/20/19 100 Resp Readings from Last 3 Encounters: 01/09/20 20 01/03/20 22 11/28/19 11 SpO2 Readings from Last 3 Encounters: 01/09/20 100% 01/03/20 100% 11/28/19 100% Temp Readings from Last 1 Encounters: 01/09/20 36.7 ??C (98.1 ??F) (Oral) Ht Readings from Last 1 Encounters: 01/09/20 1.742 m (5' 8.6) (96 %, Z= 1.73)* * Growth percentiles are based on CDC (Girls, 2-20 Years) data. Wt Readings from Last 1 Encounters: 01/09/20 78.4 kg (172 lb 13.5 oz) (94 %, Z= 1.56)* * Growth percentiles are based on CDC (Girls, 2-20 Years) data. Estimated body mass index is 25.82 kg/m?? as calculated from the following: Height as of this encounter: 1.742 m (5' 8.6). Weight as of this encounter: 78.4 kg (172 lb 13.5 oz). LDA: Peripheral IV 03/30/19 Right Upper forearm (Active) Number of days: 285 Open Drain Buttock 1 blue vessel loop as drain (Active) Number of days: 42 Past Medical History: Diagnosis Date ??? ADHD (attention deficit hyperactivity disorder) ??? Behavior symptom mother states has behavior issues ??? 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 CONGEN URETHRAL STENOSIS 12/16/2005 ??? 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 Noninfectious ileitis ??? Tonsillar abscess, S/P drainage 07/16/2014 Past Surgical History: Procedure Laterality Date ??? COLONOSCOPY N/A 02/10/2019 Procedure: COLONOSCOPY with biopsies; Surgeon: Vikas Martin MD; Location: [facility] OR ??? ESOPHAGOSCOPY, GASTROSCOPY, DUODENOSCOPY (EGD), COMBINED N/A 02/10/2019 Procedure: ESOPHAGOGASTRODUODENOSCOPY with biopsies; Surgeon: Vikas Martin MD; Location: [facility] OR ??? HC CYSTOURETHROSCOPY 05/04/2005 Cysto and urethral dilation. ??? INCISION AND DRAINAGE SACRAL WOUND, COMBINED N/A 11/28/2019 Procedure: INCISION AND DRAINAGE, pilonidal sinus; Surgeon: Tc Jama MD; Location: [facility] OR ??? INCISION AND DRAINAGE TONSIL, COMBINED 2013 under general anesthesia ??? ORTHOPEDIC SURGERY scope knee Allergies Allergen Reactions ??? Nkda [No Known Drug Allergies] ??? Seasonal Allergies Anesthesia Evaluation ROS/Med Hx No history of anesthetic complications (-) malignant hyperthermia Cardiovascular Findings - negative ROS Neuro Findings (+) developmental delay Pulmonary Findings - negative ROS HENT Findings - negative HENT ROS Skin Findings Comments: Pilonidal cyst GI/Hepatic/Renal Findings - negative ROS Endocrine/Metabolic Findings - negative ROS Genetic/Syndrome Findings (+) genetic syndrome (chromosomal abnormality ) Hematology/Oncology Findings - negative hematology/oncology ROS PHYSICAL EXAM: Mental Status/Neuro: Abnormal Mental Status Abnormal Mental Status: Delayed Airway: Facies: Feasible Mallampati: I Mouth/Opening: Full TM distance: > 6 cm Neck ROM: Full Respiratory: Auscultation: CTAB Resp. Rate: Normal Resp. Effort: Normal CV: Rhythm: Regular Rate: Age appropriate Heart: Normal Sounds Edema: None Comments: Dental: Normal Dentition Assessment: ASA SCORE: 2 H&P: History and physical reviewed and following examination; no interval change. NPO Status: NPO Appropriate Plan: Anes. Type: General Pre-Medication: Acetaminophen; Midazolam Induction: IV (Standard) Airway: ETT; Oral Access/Monitoring: PIV Maintenance: Balanced Postop Plan: Postop Pain: Opioids Postop Sedation/Airway: Not planned PONV Management: Pediatric Risk Factors: Age 3-17, Postop Opioids Prevention: Ondansetron, Dexamethasone CONSENT: Direct conversation Plan and risks discussed with: Mother; Patient Blood Products: Consent Deferred (Minimal Blood Loss) Comments for Plan/Consent: Discussed common and potentially harmful risks for General Anesthesia. These risks include, but were not limited to: Conversion to secured airway, Sore throat, Airway injury, Dental injury, Aspiration, Respiratory issues (Bronchospasm, Laryngospasm, Desaturation), Hemodynamic issues (Arrhythmia, Hypotension, Ischemia), Potential group home consequences of respiratory and h emodynamic issues, PONV, Emergence delirium Risks of invasive procedures were not discussed: N/A All questions were answered. Wan Dawn MD documented in this encounter Miscellaneous Notes Anesthesia Care Transfer Note - KraKaroline diamond APRN CRNA - 01/09/2020 10:53 AM CDT Patient: Mahi Faye Procedure(s): EXCISION, PILONIDAL CYST Diagnosis: Pilonidal disease [L98.8] Diagnosis Additional Information: No value filed. Anesthesia Type: General Note: Airway :Face Mask Patient transferred to:PACU Comments: Arrived in PACU, report to RN, vitals stable, patient uncomfortable, getting pain meds from RN. Handoff Report: Identifed the Patient, Identified the Reponsible Provider, Reviewed the pertinent medical history, Discussed the surgical course, Reviewed Intra-OP anesthesia mangement and issues during anesthesia, Set expectations for post-procedure period and Allowed opportunity for questions and acknowledgement of understanding Vitals: (Last set prior to Anesthesia Care Transfer) RYAN VITALS 01/09/2020 1015 - 01/09/2020 1053 01/09/2020 Pulse: 88 SpO2: 100 % EKG: NSR Electronically Signed By: Karoline Guzman APRN CRNA January 09, 2020 10:53 AM documented in this encounter Plan of Treatment Not on filedocumented as of this encounter Visit Diagnoses Not on filedocumented in this encounter Administered Medications Inactive Administered Medications - up to 3 most recent administrations Medication Order MAR Action Action Date Dose Rate Site cefOXitin (MEFOXIN) 1 g vial to Given 01/09/2020 10:19 AM CDT 1 g attach to NS 100 mL bag for ADULTS or 25 mL bag for PEDS Routine, 1 g, Intravenous, SEE ADMIN INSTRUCTIONS, Starting on Wed01/09/20 at 1230, DO NOT GIVE intra-op dose if CrCl less than 10 mL/min (on dialysis). If LeMF35-29 mL/min, double the time interval between doses., Indications: Perioperative Pharmacoprophylaxis, Intra-procedure dexmedetomidine (PRECEDEX) 4 mcg/mL bolu s New Bag 01/09/2020 10:49 AM CDT 20 mcg CONTINUOUS PRN, Starting on Wed01/09/20 at 1049, Anesthesia Intra-op fentaNYL (PF) (SUBLIMAZE) injection Given 01/09/2020 10:09 AM CDT 50 mcg Intravenous, PRN, Administer over 3-5 Minutes, Starting on e 01/09/20 at 1009, Anesthesia Intra-op lactated ringers infusion New Bag 01/09/2020 10:04 AM CDT Intravenous, CONTINUOUS PRN, Anesthesia Intra-op, Starting on Wed01/09/20 at 1004, Until 01/09/20 at 1053 lidocaine 2% injection (MDV) Given 01/09/2020 10:10 AM CDT 40 mg Intravenous, PRN, Starting on Wed01/09/20 at 1010, Anesthesia Intra-op ondansetron (ZOFRAN) injection Given 01/09/2020 10:34 AM CDT 4 mg Intravenous, PRN, Administer over 2-5 Minutes, Starting on Wed01/09/20 at 1034, Anesthesia Intra-op propofol (DIPRIVAN) injection 10 mg/mL v ial Given 01/09/2020 10:11 AM CDT 40 mg Intravenous, PRN, Starting on Wed01/09/20 at 1010, Anesthesia Intra-op Given 01/09/2020 10:10 AM CDT 160 mg rocuronium injection Given 01/09/2020 10:11 AM CDT 50 mg Intravenous, PRN, Starting on Wed01/09/20 at 1011, Anesthesia Intra-op sugammadex (BRIDION) injection Given 01/09/2020 10:34 AM CDT 160 mg PRN, Starting on Wed01/09/20 at 1034, Anesthesia Intra-op documented in this encounter Additional Health Concerns Assessment Noted Time PHQ-9 Depression Total Score: 7 11/13/2019 11:26 AM CD T documented as of this encounter Care Teams Clinical Mental Health Counselor Relationship Specialty Start Date End Date Queta Fritz MD PCP - General Pediatrics 12/19/15 05/27/20 [address] [place] [address] [phone] Queta Fritz MD Assigned PCP 03/04/14 04/12/21 [address] [place] [address] [phone] documented as of this encounter
--- OUTSIDE RECORDS SUMMARY | 2022-04-23 23:42 | XMS_ITS | Encounter Summary ---
:2000 Author Organization [facility] Address [address] [place] [address] Care Team Providers Name Role Phone Queta Fritz MD Primary Care Provider [phone] Queta Fritz MD Unavailable [phone] Tc Jama MD Unavailable Tc Jama MD Unavailable Khalida Beyer MD Primary Care Provider Rosario Noe APRN CNM Unavailable [phone] Eda Duarte MD Unavailable Mike Sherwood MD Unavailable [phone] Navid Paige MD Unavailable Norma Ruggiero APRN AIR PRESS OPERATOR Unavailable [phone] Queta Fritz MD Unavailable [phone] Norma Ruggiero APRN AIR PRESS OPERATOR Unavailable [phone] No Ref-Primary, Physician Primary Care Provider [phone] Alber Estrada PA-C Unavailable [phone] Reason for Visit Reason Onset Date Comments MH/CD Inpatient 03/15/2020 Encounter Details Date Type Department Care Team Description 03/15/2020 Telephone [facility] Generic, Behavioral MH/ CD Inpatient Behavioral Health In eloisa Carbone MD [address] [place] [phone] Social History Tobacco Use Types Packs/Day Years [...] do you attend anabaptism or Never 2018 episcopal services? 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 documented as of this encounter Miscellaneous Notes Telephone Encounter - Mahi Napoles - 03/15/2020 9:31 AM CDT R: PC can review with pt consent Parents decline review for and [facility] TC area only No appropriate placement available at this time. 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 Rule Out COVID-19 04/21/2022 04/21/2022 04/21/2022 8:5 7 PM CDT Assessment Noted Time PHQ-9 Depression Total Score: 7 11/13/2019 11:26 AM CD T documented as of this encounter Care Teams [employer]cher [employer] Relationship Specialty Start Date End Date Queta Fritz PCP - General Pediatrics 12/19/15 05/27/20 MD Liza [address] [place], [place] [phone] Khalida Beyer MD PCP - General Psychiatry 05/28/20 08/22/21 No Ref-Primary, PCP - General 08/23/21 Physician Queta Fritz Assigned PCP 03/04/14 04/12/21 MD Liza [address] [place] [address] Tc Jama MD Pediatric Surgery 02/14/[address] [place] [id number] Tc Jama, Assigned Pediatric 05/10/20 MD Specialist Provider [address] [place] [address] Rosario Noe, Assigned OBGYN Provider 07/21/20 01/16/22 FINANCIAL AID COUNSELOR CNM [address] [place] [address] Eda Duarte Assigned Surgical Provider 10/02/20 MD Alex [address] [facility] [address] [place] [address] Mike Sherwood Assigned Sleep Provider 01/31/21 MD Navid [address] [place] [address] Navid Paige MD Assigned Musculoskeletal 03/16/21 [address] [place], [place] [phone] Norma Ruggiero, Assigned PCP 04/13/21 05/24/21 FINANCIAL AID COUNSELOR AIR PRESS OPERATOR [address] [place], [place] [phone] Queta Fritz Assigned PCP 05/25/21 07/26/21 MD Liza [address] [facility] [address] [place], [place] [phone] Norma Ruggiero, Assigned PCP 07/27/21 09/06/21 FINANCIAL AID COUNSELOR AIR PRESS OPERATOR [address] [place], [place] [phone] Alber Estrada Assigned PCP 09/07/21 KARIN Lagunas [address] [address] [place] [phone] documented as of this encounter
--- OUTSIDE RECORDS SUMMARY | 2022-04-23 23:42 | XMS_ITS | Encounter Summary ---
:2000 Author Organization [facility] Address [address] [place] [address] Care Team Providers Name Role Phone Queta Fritz MD Primary Care Provider [phone] Queta Fritz MD Unavailable [phone] Tc Jama MD Unavailable Encounter Details Date Type Department Care Team Description 02/21/2020 Travel Social History Tobacco Use Types Packs/Day [...] do you attend synagogue or Never 2018 protestant services? 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 documented as of this encounter Plan of Treatment Not on filedocumented as of this encounter Visit Diagnoses Not on filedocumented in this encounter Additional Health Concerns Assessment Noted Time PHQ-9 Depression Total Score: 7 11/13/2019 11:26 AM CD T documented as of this encounter Care Teams Communication Studies Professor Relationship Specialty Start Date End Date Queta Fritz MD PCP - General Pediatrics 12/19/15 05/27/20 [address] [place] [address] [phone] Queta Fritz MD Assigned PCP 03/04/14 04/12/21 [address] [place] [address] [phone] Tc Jama MD MD Pediatric Surgery 02/14/[address] [place] [address] [phone] documented as of this encounter
--- OUTSIDE RECORDS SUMMARY | 2022-04-23 23:42 | XMS_ITS | Encounter Summary ---
:2000 Author Organization [facility] Address [address] [place] [address] Care Team Providers Name Role Phone Queta Fritz MD Primary Care Provider [phone] Queta Fritz MD Unavailable [phone] Tc Jama MD Unavailable Encounter Details Date Type Department Care Team Description 03/15/2020 Telephone [facility] Generic, Behavioral Behavioral Health In eloisa Carbone MD [address] [place] [phone] Social History Tobacco Use Types Packs/Day [...] or relatives? How often do you attend sabianist or Never 2018 restorationist services? 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 documented as of this encounter Miscellaneous Notes Telephone Encounter - Cami Jung - 03/15/2020 6:50 AM CDT S: Bebo SILVEIRA called at 646a with 19y Female in [facility] ED BIB EMS with SI & HI with a plan. B: Pt presents to ED with SI and a plan to stab self with a knife. Pt further expresses HI towards her mother. Pt states she does not feel safe to go home as she feels she would act on SI plan, as wellas HI towards her mom. Pt reports precipitating factors to SI/HI include her in home service skills worker quitting and pt had an argument with her mom. Pt mom also expresses she does not feel safe with pt d/cing home right now. Pt has had multiple IP MH. Pt takes psyc meds regularly. Pt has a learning disability. A: Vol R: Patient cleared and ready for behavioral bed placement: Yes Patient ambulates and is medically cleared for placement. Pt Covid confirmed to be ordered as well as Drug screen. Pt in que pending placement. documented in this encounter Plan of Treatment Not on filedocumented as of this encounter Visit Diagnoses Not on filedocumented in this encounter Additional Health Concerns Assessment Noted Time PHQ-9 Depression Total Score: 7 11/13/2019 11:26 AM CD T documented as of this encounter Care Teams Show Horse Driver Relationship Specialty Start Date End Date Queta Fritz MD PCP - General Pediatrics 12/19/15 05/27/20 [address] [place] [address] [phone] Queta Fritz MD Assigned PCP 03/04/14 04/12/21 [address] [place] [address] [phone] Tc Jama MD MD Pediatric Surgery 02/14/[address] [place] [phone] documented as of this encounter
--- OUTSIDE RECORDS SUMMARY | 2022-04-23 23:42 | XMS_ITS | Encounter Summary ---
:2000 Author Organization [place] Address [address] [place] [address]99 Care Team Providers Name Role Phone Queta Fritz MD Primary Care Provider [phone] Queta Fritz MD Unavailable [phone] Encounter Details Date Type Department Care Team Description 01/03/2020 Travel Social History Tobacco Use Types Packs/Day [...] do you attend jainism or Never 2018 judaism services? 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 documented as of this encounter Plan of Treatment Not on filedocumented as of this encounter Visit Diagnoses Not on filedocumented in this encounter Additional Health Concerns Assessment Noted Time PHQ-9 Depression Total Score: 7 11/13/2019 11:26 AM CD T documented as of this encounter Care Teams Bacteriologist Food Relationship Specialty Start Date End Date Queta Fritz MD PCP - General Pediatrics 12/19/15 05/27/20 [address] [place] [address] Queta Fritz MD Assigned PCP 03/04/14 04/12/21 [address] [place] [address] documented as of this encounter
--- OUTSIDE RECORDS SUMMARY | 2022-04-23 23:42 | XMS_ITS | Encounter Summary ---
:2000 Author Organization [place] Address [address] [place] [address] Care Team Providers Name Role Phone Queta Fritz MD Primary Care Provider [phone] Queta Fritz MD Unavailable [phone] Encounter Details Date Type Department Care Team Description 01/09/2020 Travel Social History Tobacco Use Types Packs/Day [...] do you attend mandaeism or Never 2018 latter-day services? 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
--- OUTSIDE RECORDS SUMMARY | 2022-04-23 23:42 | XMS_ITS | Encounter Summary ---
:2000 Author Organization [place] Address [address] [place] [address] Care Team Providers Name Role Phone Queta Fritz MD Primary Care Provider [phone] Queta Fritz MD Unavailable [phone] Reason for Visit Reason Onset Date Comments Opioid Refill 01/18/2020 Encounter Details Date Type Department Care Team Description 01/18/2020 Telephone [facility] Norma Ruggiero APRN Opioid Refill Discovery Pediatric BUSINESS PROPOSAL REP Specialty Clinic [address] [place] [address] [address] [place] [address] [place] [address] [place] [address], [facility] [place] [phone] Social History Tobacco Use Types Packs/Day Years [...] do you attend muslim or Never 2018 spiritism services? 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 documented as of this encounter Miscellaneous Notes Telephone Encounter - Norma Ruggiero APRN CNP - 01/18/2020 11:19 AM CDT D: Mahi's mother called to report ongoing pain at operative site after pilonidal cyst excision on01/08. Mahi also spoke during the phone call. Mahi has a loop drain to facilitate drainage. This is bothering her a lot. She reports pain with walking, sitting, laying on her side. She has not been showering because of the pain. She report that there is drainage from the site. This is expected. Mom reports that they have been alternating doses of tylenol 650 mg and ibuprofen 600 mg. She did dhus633 mg of ibuprofen one time this morning. Mom states the site does not look different from more immediate post op period. No increased redness or swelling. No fever. Mahi states that pain is not sufficiently relieved with tylenol and ibuprofen. She is not able to move around and do things. She hasa clinic follow up in surgery clinic next Wednesday. Discussed with Mahi and her mom that I will send Rx for oxycodone dose of 2.5 mg every 6 hours as needed for pain not relieved by tylenol/ibuprofenthat is limiting ability to participate in ADL's A: Acute post operative pain secondary to drain in place at operative site. P Rx sent to local pharmacy documented in this encounter Plan of Treatment Not on filedocumented as of this encounter Visit Diagnoses Diagnosis Pilonidal disease - Primary Other specified disorder of skin Acute post-operative pain Other acute postoperative pain documented in this encounter Additional Health Concerns Assessment Noted Time PHQ-9 Depression Total Score: 7 11/13/2019 11:26 AM CD T documented as of this encounter Care Teams Retail Merchandiser Technician Relationship Specialty Start Date End Date Queta Fritz MD PCP - General Pediatrics 12/19/15 05/27/20 [address] [place] [address] [phone] Queta Fritz MD Assigned PCP 03/04/14 04/12/21 [address] [place] [address] documented as of this encounter
--- OUTSIDE RECORDS SUMMARY | 2022-04-23 23:42 | XMS_ITS | Encounter Summary ---
:2000 Author Organization [place] Address [address] [place] [address] Care Team Providers Name Role Phone Queta Fritz MD Primary Care Provider [phone] Queta Fritz MD Unavailable [phone] Encounter Details Date Type Department Care Team Description 01/06/2020 Travel Social History Tobacco Use Types Packs/Day [...] do you attend restorationism or Never 2018 orthodoxy services? 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 documented as of this encounter Plan of Treatment Not on filedocumented as of this encounter Visit Diagnoses Not on filedocumented in this encounter Additional Health Concerns Assessment Noted Time PHQ-9 Depression Total Score: 7 11/13/2019 11:26 AM CD T documented as of this encounter Care Teams Extractor Loader And Unloader Relationship Specialty Start Date End Date Queta Fritz MD PCP - General Pediatrics 12/19/15 05/27/20 [address] [place] [address] Queta Fritz MD Assigned PCP 03/04/14 04/12/21 [address] [place] [place] [address] documented as of this encounter
--- OUTSIDE RECORDS SUMMARY | 2022-04-23 23:42 | XMS_ITS | Encounter Summary ---
:2000 Author Organization [place] Address [address] [place] [address] Care Team Providers Name Role Phone Queta Fritz MD Primary Care Provider [phone] Queta Fritz MD Unavailable [phone] Tc Jama MD Unavailable Reason for Visit Reason Onset Date Comments Patient/info Update 03/05/2020 called to do lev borges Encounter Details Date Type Department Care Team Description 03/05/2020 Telephone [facility] Dulce Maria Wilkerson, Patient /info Update [facility] junior systems analyst (called to do lev Specialty Clinic screen ) [place] [phone] [facility], [address] [place], [place] [phone] [address] [place] [phone] Social History Tobacco Use Types Packs/Day Years [...] do you attend buddhist or Never 2018 roman catholic services? 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 documented as of this encounter Miscellaneous Notes Telephone Encounter - Dulce Maria Wilkerson LPN - 03/05/2020 10:26 AM CDT Called to do covid screen and visitor policy with mother. Dulce Maria Wilkerson LPN documented in this encounter Plan of Treatment Not on filedocumented as of this encounter Visit Diagnoses Not on filedocumented in this encounter Additional Health Concerns Assessment Noted Time PHQ-9 Depression Total Score: 7 11/13/2019 11:26 AM CD T documented as of this encounter Care Teams Mailing Specialist Relationship Specialty Start Date End Date Queta Fritz MD PCP - General Pediatrics 12/19/15 05/27/20 [address] [phone] Queta Fritz MD Assigned PCP 03/04/14 04/12/21 [address] [place] [address] 256367 Tc Jama MD MD Pediatric Surgery 02/14/[address] [place] [address] [phone] documented as of this encounter
--- OUTSIDE RECORDS SUMMARY | 2022-04-23 23:42 | XMS_ITS | Encounter Summary ---
:2000 Author Organization [place] Address [address] [place] [address] Care Team Providers Name Role Phone Queta Fritz MD Primary Care Provider [phone] Queta Fritz MD Unavailable [phone] Reason for Visit Reason Onset Date Comments Hospital F/U 01/11/2020 Encounter Details Date Type Department Care Team Description 01/11/2020 Telephone [facility] Christopher Fritz, Hospital F/U Krystle CORLEY [address] [place] [address] [place], [place] [phone] (Wo rk) Social History Tobacco Use Types [...] or relatives? How often do you attend restoration or Never 2018 catholic services? 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 documented as of this encounter Miscellaneous Notes Telephone Encounter - Celine Stewart, RN - 01/11/2020 9:29 AM CDT Patient was on the hospital follow up list. However, this was for a scheduled surgery and patient has a post op scheduled. No follow up call needed at this time. Celine Stewart RN documented in this encounter Plan of Treatment Not on filedocumented as of this encounter Visit Diagnoses Not on filedocumented in this encounter Additional Health Concerns Assessment Noted Time PHQ-9 Depression Total Score: 7 11/13/2019 11:26 AM CD T documented as of this encounter Care Teams Diving Instructor Relationship Specialty Start Date End Date Queta Fritz MD PCP - General Pediatrics 12/19/15 05/27/20 [address] [place] [address] [phone] Queta Fritz MD Assigned PCP 03/04/14 04/12/21 [address] [place] [address] documented as of this encounter
--- OUTSIDE RECORDS SUMMARY | 2022-04-23 23:42 | XMS_ITS | Encounter Summary ---
:2000 Author Organization [place] Address [address] [place] [address]. [place] [address] Care Team Providers Name Role Phone Queta Fritz MD Primary Care Provider [phone] Queta Fritz MD Unavailable [phone] Reason for Visit Reason Comments RECHECK drain removal Encounter Details Date Type Department Care Team Description 01/23/2020 Office Visit [facility] Norma Ruggiero, Jose nidal disease [facility] SPIRAL BINDER MANAGER ASSURANCE (Primary Dx) Specialty Clinic [address] [place] [address] [facility] [place], [place] [address] [address] [address] [place], [place] [phone] (Wo rk) [phone] Social History Tobacco Use Types Packs/Day Years [...] do you attend hinduism or Never 2018 zoroastrianism services? Do you belong to any clubs [...] place to sleep or slept in a prison (including now)? Education Answer Date Recorded What is the highest level of school you have completed or 10 th grade 12/07/2018 the highest degree you have received? 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 documented as of this encounter Last Filed Vital Signs Vital Sign Reading Time Taken Comments Blood Pressure - - Pulse - - Temperature - - Respiratory Rate - - Oxygen Saturation - - Inhaled Oxygen Concentration - - Weight 82.1 kg (181 lb) 01/23/2020 1:29 PM CDT Height 173.5 cm (5' 8.31) 01/23/2020 1:29 PM CDT Body Mass Index 27.27 01/23/2020 1:29 PM CDT Body Mass Index Percentile 90.30 % 01/23/2020 1:29 PM CD T Growth Chart: [facility] (Girls, 2-20 Years) documented in this encounter Progress Notes Norma Ruggiero APRN MANAGER ASSURANCE - 01/23/2020 5:23 PM CDT January 23, 2020 [place] [address] RE: Mahi Faye : [address] Fritz: It was a pleasure to see your patient Mahi at the Pediatric Surgery Clinic at the [facility] today. As you recall, Mahi is a 19-year-old female with a history of autism who is being seen for a pilonidal cyst. Mahi is seen in clinic today accompanied by her mom for a postop followup after having her pilonidal cyst excised by Dr. Jama here at the [facility] about 2 weeks ago. Mom and Mahi report that the loop drain that she has in is quite uncomfortable for her.They report that the drainage has decreased significantly since the drain was placed. Mahi has been showering daily or almost daily as best she can. She really does not like being in the shower. On exam, Mahi is cooperative and talkative. Her pilonidal incision is intact with sutures still present. The blue vessel loop drain sites are clean. There is no drainage upon palpation. I feel no underlying fluid collections, so therefore the site was cleaned with ChloraPrep, and the drain was clipped and removed without incident. I did instruct Mahi to keep up with her daily shower using the Techni-Care soap that we had sent her back, or she could take a short, shallow bath if she prefers. I did ask her to refrain from strenuous activities. She asked about biking, and I asked her not to do that yet as that incision is still quite delicate. I also asked her not to swim at this time unless itis in a chlorinated pool. Mahi did become quite emotional after hearing she could not go bike riding and did lash out at her mom, stating she was going to drink or hurt herself. Mom stated that thisis typical behavior for Mahi. I did give them my card to call me back with any questions about the incision. I would like them to follow up with Dr. Jama in the next few weeks. Mom needed to check her calendar more closely as mom had something going on and had to work at this next available appointment, which was 02/04. Later in the afternoon, I did call mom to check in, and she said Mahi had slept on the way home in the car. They do have resources in place for Mahi's mental health issues, and they are in the process of scheduling an appointment to assess for assistance for Mahi at home. Thank you, Dr. Fritz, for allowing us to participate in the care of your patient Mahi. It was apleasure to see her and her mom in clinic today. We will check in by phone next week and set up a followup appointment with Dr. Jama at that time. Sincerely, Norma Ruggiero APRN, JANINE Pediatric Surgery [facility] Norma Ruggiero APRN CNP - 01/23/2020 1:30 PM CDT Dictation on: 01/23/2020 5:23 PM by: NORMA RUGGIERO [[id number]] documented in this encounter Nursing Notes Troy Simpson LPN - 01/23/2020 1:30 PM CDT [facility] [[id number]] Chief Complaint Patient presents with ??? RECHECK drain removal Initial Ht 5' 8.31 (173.5 cm) Wt 181 lb (82.1 kg) BMI 27.27 kg/m?? Estimated body mass index is27.27 kg/m?? as calculated from the following: Height as of this encounter: 5' 8.31 (173.5 cm). Weight as of this encounter: 181 lb (82.1 kg). Medication Reconciliation: complete documented in this encounter Plan of Treatment Not on filedocumented as of this encounter Visit Diagnoses Diagnosis Pilonidal disease - Primary Other specified disorder of skin documented in this encounter Additional Health Concerns Assessment Noted Time PHQ-9 Depression Total Score: 7 11/13/2019 11:26 AM CD T documented as of this encounter Care Teams Tree Specialist Relationship Specialty Start Date End Date Queta Fritz MD PCP - General Pediatrics 12/19/15 05/27/20 [address] [place] [address] Queta Fritz MD Assigned PCP 03/04/14 04/12/21 [address] [place] [address] documented as of this encounter
--- OUTSIDE RECORDS SUMMARY | 2022-04-23 23:42 | XMS_ITS | Encounter Summary ---
:2000 Author Organization [place] Address [address] [place] [address]. [place] [address] Care Team Providers Name Role Phone Queta Fritz MD Primary Care Provider [phone] Queta Fritz MD Unavailable [phone] Reason for Visit Reason Onset Date Comments Covid 19 Testing 01/06/2020 Encounter Details Date Type Department Care Team Description 01/06/[address] [facility] Tc Jama Enc ounter for Urgent Care Lacey CORLEY screening for other [address] viral diseases [facility] [phone] [place], [place] [phone] (Wo rk) Social History Tobacco Use Types [...] do you attend holiness or Never 2018 anglican services? 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 documented as of this encounter Progress Notes Padmini Kc MA - 01/06/2020 12:40 PM CDT COVID-19 PCR test completed. Patient handout For Patients Who Have Been Tested for Covid-19 (Coronavirus) was given to the patient, which includes test result notification process. documented in this encounter Plan of Treatment Not on filedocumented as of this encounter Procedures Procedure Name Priority Date/Time Associated Diagnosis Comme nts COVID-19 VIRUS Routine 01/06/2020 2:01 PM Encounter for Result s for this (CORONAVIRUS) BY CDT screening for other proc edure are in PCR viral diseases the results section. documented in this encounter Results Asymptomatic COVID-19 Virus (Coronavirus) by PCR (01/06/2020 2:01 PM CDT) [facility] Method Time Signature COVID-19 Nasopharyngeal 01/06/2020 [facility] Virus PCR to 2:06 PM CDT [facility] Source [facility] COVID-19 Not Detected 01/07/2020 [facility] Virus PCR to 2:55 PM CDT [facility] - GENOMICS Result [facility]ENTER [facility] Comment: Collection of multiple specimens from th e same patient may be necessary to detect the virus. The possibility of a f alse negative should be considered if the patient's recent exposure or clinica l presentation suggests 2019 nCOV infection and diagnostic tests for other causes of illness are negative. Repeat testing may be considered in this setting. Viral RNA was extracted via a validated method and subsequently underwent single step reverse transcriptase-real t feliica polymerase chain reaction using primers to the CDC specified N1,N2 gene targets of CoV2 and human FACILITIES CLERK as an internal control. A negative result does not rule out [...] (Centers for Disease Control) Testing performed by General acute hospital, Room 1-210, [address] [place] [address]. T his test was developed and its performance characteristics determined b y the [facility]. It has not been cleared or appr victor manuel by the FDA. The laboratory is regulated under the Cl inical Laboratory Improvement Amendments of 1988 (CLIA-88) as qualifie d to perform high-complexity testing. This test is used for clinical purposes. It should not be regarded as investigational or for research. Specimen (Source) Anatomical Collection Method Collection Time Re ceived Time Location / / Volume Laterality Specimen from 01/06/2020 2:01 01/06/2020 nasopharyngeal PM CDT 2:06 PM CDT structure (specimen) Tc Jama MD LAB - MICRO GENERAL ORDERABL ES Performing Organization Address City/State/ZIP Code Phon e Number [address] [address] [facility] Room: [address] [place], [place] [address] [place] documented in this encounter Visit Diagnoses Diagnosis Encounter for screening for other viral diseases documented in this encounter Additional Health Concerns Assessment Noted Time PHQ-9 Depression Total Score: 7 11/13/2019 11:26 AM CD T documented as of this encounter Care Teams Metal Building Assembler Relationship Specialty Start Date End Date Queta Fritz MD PCP - General Pediatrics 12/19/15 05/27/20 [address] [address] Queta Fritz MD Assigned PCP 03/04/14 04/12/21 [address] [address] documented as of this encounter
--- OUTSIDE RECORDS SUMMARY | 2022-04-23 23:42 | XMS_ITS | Encounter Summary ---
:2000 Author Organization [facility] Address [address] [place] [address]. [place] [address] Care Team Providers Name Role Phone Queta Fritz MD Primary Care Provider [phone] Queta Fritz MD Unavailable [phone] Tc Jama MD Unavailable Reason for Visit Reason Comments RECHECK f/u wound Encounter Details Date Type Department Care Team Description 03/06/2020 Office Visit [facility] Tc Jama, Pil onidal cyst Pediatric (Primary Dx) Special[facility] [address] [place], [place] [id number] [address] [phone] (Wo rk) [phone] Social History Tobacco Use Types Packs/Day Years [...] do you attend jainism or Never 2018 temple services? 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 documented as of this encounter Last Filed Vital Signs Vital Sign Reading Time Taken Comments Blood Pressure - - Pulse - - Temperature - - Respiratory Rate - - Oxygen Saturation - - Inhaled Oxygen Concentration - - Weight 86 kg (189 lb 9.5 oz) 03/06/2020 1:10 PM CDT Height 173.7 cm (5' 8.39) 03/06/2020 1:10 PM CDT Body Mass Index 28.5 03/06/2020 1:10 PM CDT Body Mass Index Percentile 92.66 % 03/06/2020 1:10 PM CD T Growth Chart: [facility] (Girls, 2-20 Years) documented in this encounter Progress Notes Tc Jama MD - 03/06/2020 1:00 PM CDT March 06, 2020 Queta Fritz MD [facility] [address] [facility], [address] [place] [address] RE:Mahi Faye :[address] Fritz: It was my pleasure to see Mahi Faye in clinic today again in ongoing care of her pilonidal cyst wound. She has 2 open areas which we have treated with silver nitrate. She is not being entirely compliant with washing and having her mom help pull hair out and I have encouraged her to do these things. We will plan to follow up with her in about 2 weeks. Thank you very much for allowing us to be involved in Mahi's care. Please contact me if I can be of further assistance. Sincerely, Tc Jama Jr., MD documented in this encounter Plan of Treatment Not on filedocumented as of this encounter Visit Diagnoses Diagnosis Pilonidal cyst - Primary Pilonidal cyst without mention of absces s documented in this encounter Additional Health Concerns Assessment Noted Time PHQ-9 Depression Total Score: 7 11/13/2019 11:26 AM CD T documented as of this encounter Care Teams Military Lawyer Relationship Specialty Start Date End Date Queta Fritz MD PCP - General Pediatrics 12/19/15 05/27/[address] [phone] Queta Fritz MD Assigned PCP 03/04/14 04/12/21 [address] [place] [address] [id number] Tc Jama MD MD Pediatric Surgery 02/14/20 [facility] [place] [address] [id number] documented as of this encounter
--- OUTSIDE RECORDS SUMMARY | 2022-04-23 23:42 | XMS_ITS | Encounter Summary ---
:2000 Author Organization [facility] Address [address] [place] [id number] Care Team Providers Name Role Phone Queta Fritz MD Primary Care Provider [phone] Queta Fritz MD Unavailable [phone] Tc Jama MD Unavailable Encounter Details Date Type Department Care Team Description 03/15/2020 Travel Social History Tobacco Use Types Packs/Day [...] or relatives? How often do you attend mormonism or Never 2018 orthodoxy services? 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
--- OUTSIDE RECORDS SUMMARY | 2022-04-23 23:42 | XMS_ITS | Encounter Summary ---
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 advance if you need to reschedule an appointment to ensure continued access to your outpatient providers. Major Treatments, Procedures and Findings: You were provided with: a psychiatric assessment, assessed for medical stability, medication evaluation and/or management, group therapy, family therapy, individual therapy and milieu management Symptoms to Report: feeling more aggressive, increased confusion, losing more sleep, mood getting worse or thoughts of suicide Early warning signs can include: increased depression or anxiety sleep disturbances increased thoughts or behaviors of suicide or self-harm increased unusual thinking, such as paranoia or hearing voices Safety and Wellness: The patient should take medications as prescribed. Patient's caregivers are highly encouraged to supervise administering of medications and follow treatment recommendations. Patient's caregivers should ensure patient does not have access to: Firearms Medicines (both prescribed and [id number]) Knives and other sharp objects Ropes and like materials Alcohol Car keys If there is a concern for safety, call 911. Resources: Crisis Intervention: 273.723.4307 or 576-911-1965 (TTY: 462.233.9100). Call anytime for help. National [place] on Mental Illness (www.mn.tereza.org): 974.537.3802 or 294-433-6119. [place] Association for Children's Mental Health (www.macmh.org): 251.411.3614. Suicide Awareness Voices of Education (SAVE) (www.save.org): 124-687-FRDU (0892) National Suicide Prevention Line (www.mentalhealthmn.org): 776-843-JUMB (6084) Mental Health Consumer/Survivor Network of [place] (www.mhcsn.net): 134.857.1050 or 548-424-8589 Mental Health Association of [place] (www.mentalhealth.org): 882.726.5910 or 090-658-9477 Self- Management and Recovery Training., SMART-- Toll free: 433.978.9823 www.[employer] [facility] Crisis Response 773-550-4997 [place] [address] for immediate support and crisis intervention Crisis text line: Text [place] to 118258. Free, confidential, 08/02. Crisis Intervention: 496.674.1555 or 010-532-6096. Call anytime for help. [facility] at [phone]. The treatment team has appreciated the opportunity to work with you and thank you for choosing the [facility]. Mahi please take care and make your recovery a daily recovery. If you have any questions or concerns our unit number is [phone]. documented in this encounter Medications at Time of Discharge Medication Sig Dispensed Refills Start Date End Date levonorgestrel-ethinyl Take 1 tablet by 84 tablet 3 017 06/26/2020 estradiol (SEASONALE) mouth daily 0.15-0.03 MG per tabletIndications: Encounter for surveillance of contraceptive pills QUEtiapine (SEROQUEL) 300 Take 1 tablet (300 30 tablet 0 05/26/2020 MG tabletIndications: mg) by mouth At Learning disability, Bedtime Anxiety, Aggression Vitamin D, Take 1 capsule by 90 capsule 3 01/17/2020 021 Cholecalciferol, 25 MCG mouth daily (1000 UT) CAPSIndications: Dietary counseling and surveillance documented as of this encounter Progress Notes Usha Gomez - 03/30/2020 10:12 PM CDT 03/30/202208 Sleep/Rest/Relaxation Day/Evening Time Hours up all shift Behavioral Health Hallucinations denies / not responding to hallucinations Thinking intact Orientation person: oriented;place: oriented;date: oriented;time: oriented Memory baseline memory Insight insight appropriate to situation Judgement intact Affect full range affect Mood mood is calm;other (see comments) (excited for discharge tomorrow) Physical Appearance/Attire untidy;neat;appears stated age;attire appropriate to age and situation Hygiene neglected grooming - unclean body, hair, teeth;other (see comment) (refused to shower, wants to wait until she goes home) Suicidality other (see comments) (denies) 1. Wish to be (Recent) No 2. Non-Specific Active Suicidal Thoughts (Recent) No Self Injury other (see comment) (denies) Elopement (No elopement concerns) Activity other (see comment) (appropriately active in milieu) Speech clear;coherent Psychomotor / Gait balanced;steady Patient had a good shift.Her mood was bright, and she worked on making cards for her brother who is recovering from a car crash injury. Patient did not require seclusion/restraints to manage behavior. Mahi Faye did participate in groups and was visible in the milieu. Notable mental health symptoms during this shift:None Patient is working on these coping/social skills: Sharing feelings Distraction Positive social behaviors Visitors during this shift included None. Stefany Lewis OT - 03/30/2020 3:07 PM CDT Pt attended a structured OT group for the full session with 5 group members with a focus on social skills and flexible thinking. Pt actively participated in a game titled Ready, Set, Respond, which is designed to help understand the different reactions we have to difficult situations and how our responses affect those around us. Actively participated in selecting specific responses to a range of given situations. Pt was able to follow directions with repetition and interact appropriately with peers. Criss Hartley RN - 03/29/2020 9:52 PM CDT Shift Summary: Mahi had a safe evening, she attended all milieu activities, appeared bright and was appropriate with peers and staff. She shared her excitement about discharging Wednesday. She is looking forward to going back to school Wednesday. She continues to need prompts with hygiene.she denies having any SI/SIB thoughts intent or plan. She denies pain. Continues to be complaint with her medication. Denies medication side effects. Joaquin Wheeler LPCC - 03/29/2020 4:40 PM CDT THERAPY NOTE Patient Active Problem List Diagnosis ??? Chromosomal abnormality ??? Learning disability ??? Anxiety ??? Insomnia ??? Aggression with talk of suicide/homicide ??? Suicidal ideation ??? Development delay ??? Mild anemia ??? Slow transit constipation ??? Pilonidal sinus ??? Pilonidal disease ??? S/P surgical removal of pilonidal cyst ??? Noninfectious ileitis ??? Suicidal ideations ??? JANETH (generalized anxiety disorder) ??? Borderline intellectual functioning Duration: Met with patient on 03/29/2020, for a total of 25 minutes. Patient Goals: The patient identified their treatment goals as crisis stabilization. Interventions used: motivational interviewing Patient progress: Patient appeared bright evidenced by her smile and self-report. Patient Response: Therapist and patient role played health communication including how to express wants and needs non-violently. Patient was able to practice during role play but reported anticipating using techniques due to her mother's difficulties yelling at patient. Therapist discussed the importance of walking away from a conversation and taking a break when it turns to yelling. Patient agree topractice walking away during monuments of high discord. Assessment or plan: Patient will discharge 03/31/2020 @ 6:30 PM Celia Rojas LMFT - 03/29/2020 4:09 PM CDT 03/29/20 1500 Group Therapy Session Group Attendance attended group session Time Session Began 1500 Time Session Ended 1530 Total Time (minutes) 30 Group Type psychotherapeutic Group Topic Covered coping skills/lifestyle management Patient Participation/Contribution cooperative with task Mahi participated in a group on sensory awareness based on DBT skills. She was friendly and respectful to staff and her peers. Kalli Sharif MD - 03/29/2020 3:57 PM CDT Images from the original note were not included. Pediatric Hospitalist Progress Note March 29, 2020 Mahi Faye [id number] Date of : 2000 Age: [age] year old Date of Admission: 03/15/2020 Interval History: Maih has been taking Augmentin as prescribed for bite wound prophylaxis. Her wrist still hurts a little bit but isn't bothering her much. Objective: BP (!) 139/90 Pulse 97 Temp 97.8 ??F (36.6 ??C) (Temporal) Resp 20 Ht 5' 8.21 (1.733 m) Wt 194 lb (88 kg) SpO2 98% BMI 29.32 kg/m?? General: alert, cooperative, no apparent distress Head: atraumatic, normocephalic Eyes: extraocular muscles intact, pupils grossly normal Nose: no nasal discharge Mouth: mucus membranes moist Neck: supple CV: extremities well-perfused Lungs: normal work of breathing Musculoskeletal: tone normal, gait normal Neuro: CN II-XII grossly intact, alert and oriented Psych: affect flat, speech slow and soft Skin: bite wound partially scabbed over, no surrounding erythema or warmth or swelling. Medications: I have reviewed this patient's current medications Current Facility-Administered Medications Medication ??? acetaminophen (TYLENOL) tablet 650 mg ??? amoxicillin-clavulanate (AUGMENTIN) 875-125 MG per tablet 1 tablet ??? calcium carbonate (TUMS) chewable tablet 500 mg ??? diphenhydrAMINE (BENADRYL) capsule 25 mg Or ??? diphenhydrAMINE (BENADRYL) injection 25 mg ??? hydrOXYzine (ATARAX) tablet 25-50 mg ??? ibuprofen (ADVIL/MOTRIN) tablet 400 mg ??? levonorgestrel-ethinyl estradiol (NORDETTE) 0.15-30 MG-MCG per tablet 1 tablet ??? lidocaine (LMX4) cream ??? melatonin tablet 3 mg ??? OLANZapine zydis (zyPREXA) ODT tab 5 mg Or ??? OLANZapine (zyPREXA) injection 5 mg ??? QUEtiapine (SEROquel) tablet 300 mg ??? Vitamin D3 (CHOLECALCIFEROL) tablet 25 mcg Labs: No results found for this or any previous visit (from the past 24 hour(s)). Assessment/Plan: Mahi is an 20 year old currently being treated with Augmentin for a total of 5 days for wound prophylaxis after sustaining a bite during an episode of dysregulated behavior. The wound is healing well and shows no sign of infection. 1. Complete 5 day course of Augmentin 2. Please call peds if concern for infection - warmth, swelling, streaking, increasing pain. 3. Okay to apply antibiotic ointment if desired - Mahi said this made it feel better - but not necessary for healing. Thank you for this consultation. Please do not hesitate to contact the Peds Hospitalist Team if other questions or concerns arise. Lindsey Richards MD Adolescent Medicine Fellow Pager: [phone] March 29, 2020 Attending Attestation: I, Kalli Sharif MD, was not present with the fellow, but discussed the case with the fellow, and agree with the findings and plan of care as documented in the fellow???s note. Kalli Sharif MD Adolescent Medicine Consultation Service Pager Simin Walters - 03/29/2020 12:27 PM CDT Patient did not require seclusion/restraints to manage behavior. Mahi Faye did participate in groups and was visible in the milieu. Notable mental health symptoms during this shift:depressed mood Patient is working on these coping/social skills: Sharing feelings Positive social behaviors Asking for help Avoiding engaging in negative behavior of others Visitors during this shift included n/a Other information about this shift: Pt denied thoughts of SI/SIB and the first two questions of the [place] Suicide Risk Assessment. Mahi rated their anxiety 0/10 and depression 0/10 on a severity scale 0-10 (10 = most severe). When staff asked her how she was doing pt gave staff a thumbs up and said happy. Pt talked to staff about how she is going home Wednesday and starting school on the . Pily Muñoz MD - 03/29/2020 8:59 AM CDT [facility] Progress Note History of Presenting Illness: Unit: 7AE Attending Provider: Toni I reviewed the medical notes and discussed the patient's care with nursing staff and the treatment team. Admission history: Mahi Faye is a 20 year old, female with a psychiatric history of borderline intellectual functioning, chromosomal anomalies, learning disabilities, anxiety, and depression, with numerous prior psychiatric hospitalizations, admitted on 03/15/2020 for SI and HI - threatening to stab mother or self - and running away from home. She was in a longterm until November 2019 which was closed, and has lived with mother since. During this admission Seroquel has been tapered partly due to its metabolic side effects. Metformin has been stopped. Per nursing: She complained of 2 headaches yesterday evening but denied any pain this morning. Bloodpressure has been on the higher side but stable throughout this admission. She is requesting to talkto her injured brother on the telephone and this seems a reasonable request even though he is under 18. Per CTC: She tentatively has individual therapy organized for April 05. She also has psychiatric treatment organized at [facility] but mother needs to reschedule that date. On interview: She was still in bed but awake having had her vital signs taken. She said she felt good and attended groups yesterday. She has no plan for today other than to keep attending groups. Sheis looking forward to discharge on Wednesday. She plans to exercise and get ready for school on Wednesday.She feels safe today. She says her wrist is feeling better. She demonstrated full range of motion ofher right wrist to me. She denied any other physical complaints. She said her main coping skills at home will be distraction and exercise. She wants to call her friends which seems inappropriate as I would rather she focused on working with family towards discharge. I pointed out she could phone them when she returned home on Wednesday and she was okay with this. Current admission course: Consults: - Family Assessment completed and reviewed - Patient treated in therapeutic milieu with appropriate individual and group therapies as indicatedand as able. - Collateral information, ROIs, legal documentation, prior testing results, and other pertinent information requested within 24 hr of admission. Medical diagnoses to be addressed this admission: #Metabolic Disturbances - likely 2/2 to Seroquel- attempting to further decrease medication - Provide nutrition education - Did discontinue Metformin- did not appear effective Legal Status: 20-year-old with legal guardian Interim History: Side effects to medication: denies Sleep: slept through the night Intake: eating/drinking without difficulty Groups: appropriately participating Interactions & function: gets along well with peers The 10 point Review of Systems is negative other than noted above. Medications and Allergies: Scheduled: ??? amoxicillin-clavulanate 1 tablet Oral Q12H BHAVIN ??? levonorgestrel-ethinyl estradiol 1 tablet Oral Daily ??? melatonin 3 mg Oral At Bedtime ??? QUEtiapine 300 mg Oral At Bedtime ??? cholecalciferol 25 mcg Oral Daily PRN: acetaminophen, calcium carbonate, diphenhydrAMINE OR diphenhydrAMINE, hydrOXYzine, ibuprofen, lidocaine 4%, OLANZapine zydis OR OLANZapine Allergies: Allergies Allergen Reactions ??? Nkda [No Known Drug Allergies] ??? Seasonal Allergies Vitals: BP (!) 139/90 Pulse 97 Temp 97.8 ??F (36.6 ??C) (Temporal) Resp 20 Ht 1.733 m (5' 8.21) Wt 88 kg (194 lb) SpO2 98% BMI 29.32 kg/m?? Psychiatric Mental Status Examination: Muscle Strength and Tone: normal on gross observation Gait and Station: normal on gross observation Mood: good Affect: mood congruent, appropriately reactive, bright and cheerful but is a bit sleepy Appearance: Well-groomed, well-nourished, wearing scrubs with some food spilled on them Behavior/Demeanor/Attitude: bright and cheerful , not quite as perseverative in her conversation Alertness: GCS 15/15 (E=4, V=5, M=6) Eye Contact: Excellent Speech: Clear, normal prosody, coherent, very slight and occasional lisp Language: Normal [place] language skills Psychomotor Behavior: Normal, no evidence of extrapyramidal side effects or tics Thought Process: [place] for age and goal-directed to go home, Thought Content: No evidence of obsessions, compulsions, delusions, paranoia Safety: Denies thoughts of self harm, suicide, violence to others Associations: normal, no loosening of associations Insight: Quite limited and concrete insight for her age on general conversation Judgment: Good as evidenced by cooperative with medical team Orientation: Orientated to time, place, person on general conversation. Attention Span and Concentration: Focused on a 15-minute conversation well Recent and Remote Memory: good to the discharge plan Fund of Knowledge: concerns for impairment Laboratory Studies: Labs have been personally reviewed. No new labs in the last 24 hours Plan: DIAGNOSIS: #1 Adjustment disorder with disturbance of mood and conduct?? #2 Borderline Intellectual Functioning #3 JANETH #4 Hx of Depression #5 Hx of Learning disorders #6 Chromosomal abnormalities Summary: Mahi is an 20 yo (during this admission) female who was in a longterm until it closed this yearand has been at home with her mother since while awaiting future longterm placement. Her intellectual functioning is below average leaving her somewhat vulnerable, but she also struggles with impulsivity which can translate into aggression towards self and others. Called mother, Eleanor Krueger, : Left a voicemail stating that I understood she was trying to reorganize the psychiatry outpatient time and if she succeeded to please let us know and we would update the paperwork. Informed her that Mahi's wrist was healing well and that she was in good spirits and looking forward to going home. Let her know that the paperwork and medications will be ready for Wednesday discharge after lunch in the afternoon. Advised her that if she had any questions to please contact us. Stated I was not the on-call doctor over the weekend but that it was a pleasure working with the family. PLAN: Nonpharmacological: - Safety checks: Status 15 - Additional Precautions: Suicide, Self-harm, Assault - Patient has not required locked seclusion or restraints in the past 24 hours to maintain safety. Please refer to plastic dolls mold filler for further details. 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 - Continue control Nordette 1 tablet po every day - Continue melatonin 3mg po at bedtime - for insomnia - Continue Seroquel 300mg po at bedtime - for aggression/insomnia - Continue Vitamin D3 1000units po every day - for supplementation Hospital PRNs as ordered: acetaminophen, calcium carbonate, diphenhydrAMINE OR diphenhydrAMINE, hydrOXYzine, ibuprofen, lidocaine 4%, OLANZapine zydis OR OLANZapine Disposition: Anticipated discharge date: 03/31/2020 Target disposition: home with services vs longterm This patient was seen and evaluated by me today. Patient was seen by me, Dr Dennis Muñoz [facility]. Total time was 25 minutes. 20 minutes with patient/parent. Over 50% of time was spent counseling andcoordination of care regarding coping skills and discharge planning. Rosie Reddy E - 03/28/2020 10:21 PM CDT 03/28/20 6567 Behavioral Health Hallucinations denies / not responding to hallucinations Thinking distractable;poor concentration;intact Orientation person: oriented;place: oriented;date: oriented;time: oriented Memory baseline memory Insight admits / accepts Judgement intact Eye Contact at examiner Affect full range affect Mood anxious Physical Appearance/Attire appears stated age;attire appropriate to age and situation Hygiene well groomed Suicidality other (see comments) (Pt denies.) Wish to be Description (Recent) no Non-Specific Active Suicidal Thought Description (Recent) no Self Injury other (see comment) (Pt denies.) Elopement (Pt didn't exhibit these behaviors this shift.) Activity other (see comment);hyperactive (agitated, impulsive);restless (active and social in milieu) Speech clear;coherent Psychomotor / Gait balanced;steady Coping/Psychosocial Verbalized Emotional State acceptance;anxiety;other (see comments) (feeling good) Activities of Daily Living Hygiene/Grooming independent Oral Hygiene independent Dress independent Laundry with supervision Room Organization independent Significant Event Significant Event Other (see comments) (Shift Summary) Patient had a cooperative and pleasant shift. Patient did not require seclusion/restraints to manage behavior. Mahi Faye did participate in groups and was visible in the milieu. Notable mental health symptoms during this shift:distractable highly active impulsive full range affect Patient is working on these coping/social skills: Sharing feelings Distraction Positive social behaviors Asking for help sticker puzzles, Fuse Beads, playing cards, using sttress ball Visitors during this shift included none. Overall, the visit was n/a. Significant events during the visit included n/a. Other information about this shift: Pt denies SI and SIB thoughts. Pt rates depression as a 0 and anxiety as a 3. Pt's goal was to stay good. Which she achieved. Pt had a cooperative and pleasant shift. Denia Saleem RN - 03/28/2020 10:02 PM CDT Mahi's mother, Eleanor, spoke with her about calling her brother, Jarrett, who is in the hospital following a car accident. She would like him added to Mahi's call list. She provided the phone number.I left a sticky note for Dr. Muñoz to put in an order if she is comfortable with that since Jarrettis only 16. Denia Dove RN - 03/28/2020 9:54 PM CDT Mahi had prn tylenol for a headache at 1939. The headache decreased a bit, but at 2129 she statedit was back again. I gave her some ibuprofen. Will assess pain one hour later. Mahi stated that she is having more headaches lately--3-4 per day. ADDENDUM: One hour after ibuprofen Mahi reported that her headache was gone. Betito Cespedes - 03/28/2020 4:43 PM CDT 03/28/20 1600 Art Therapy Type of Intervention structured groups Response participates with encouragement Hours 1 Treatment Detail ?? (Art Therapy) Objective- Patients use art media, the creative process & resulting artwork to:explore feelings,reconcile emotions, gain self-awareness/ self esteem, manage behaviors, develop social skills, improve reality orientation, & reduce anxiety /depression. ?? Outcome- pt attended group. The group art led to discussions about self esteem and strengths as wellas mindfulness and resilience. It was a very thoughtful and engaged small group. Pt was very engagedin her detailed mandala and would like to finish it tomorrow. Pt was pleasant, cooperative and very engaged. Celine Dorsey - 03/28/2020 3:57 PM CDT 03/28/20 1500 Group Therapy Session Group Attendance attended group session Time Session Began 1500 Time Session Ended 1530 Total Time (minutes) 30 Group Type psychotherapeutic Group Topic Covered cognitive therapy techniques Literature/Videos Given Comments DBT ACCEPTS worksheet Patient Participation/Contribution confused;disorganized;unable to interrupt patient;unable to sequence the task;verbalizations were off topic Patient Participation Detail patient sat in the group and read the literature provided. Patient was not able to recall or demonstrate understanding of what was being presented Stefany Lewis OT - 03/28/2020 11:55 AM CDT Pt attended a structured OT group from [id number] with two group members. The focus of the intervention was on social skills and problem solving. During check-in, pt reported feeling happy because I am going to discharge on Wednesday if I be good today. and this was congruent with her affect. When asked to identify a support person/support people, she identified my boyfriend and family. Pt was able to apply appropriate problem solving skills during games of PAWAN. She was socially a ppropriate with peers and staff. NUELT Pily Muñoz MD - 03/28/2020 8:39 AM CDT [facility] Progress Note History of Presenting Illness: Unit: 7AE Attending Provider: Toni I reviewed the medical notes and discussed the patient's care with nursing staff and the treatment team. Admission history: Mahi Faye is a 20 year old, female with a psychiatric history of borderline intellectual functioning, chromosomal anomalies, learning disabilities, anxiety, and depression, with numerous prior psychiatric hospitalizations, admitted on 03/15/2020 for SI and HI - threatening to stab mother or self - and running away from home. She was in a longterm until November 2019 which was closed, and has lived with mother since. During this admission Seroquel has been tapered partly due to its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 acetaminophen, diphenhydrAMINE OR diphenhydrAMINE, hydrOXYzine, lidocaine 4%, melatonin, OLANZapine zydis OR OLANZapine Laboratory/Imaging/ Test Results: - Upreg neg, UDS neg, COMP wnl, CBC wnl, TSH wnl and Vitamin D wnl - Lipids: Chol 185, TGL 145 Consults: - Family Assessment completed and reviewed - Patient treated in therapeutic milieu with appropriate individual and group therapies as indicatedand as able. - Collateral information, ROIs, legal documentation, prior testing results, etc requested within 24 hr of admit. Medical diagnoses to be addressed this admission: #Metabolic Disturbances - likely 2/2 to Seroquel - Continue Metformin - Provide nutrition education Legal Status: Voluntary Safety Assessment: Checks: Status 15 Additional Precautions: Suicide Self-harm Assault Pt has not required locked seclusion or restraints in the past 24 hours to maintain safety, please refer to plastic dolls mold filler for further details. The risks, benefits, alternatives and side effects have been discussed and are understood by the patient and other caregivers. Anticipated Disposition: Discharge date: 5-7 days Target disposition: Likely adult longterm placement Attestation: Patient has been seen and evaluated by me, Bryan Peralta MD Interim History: The patient's care was discussed with the treatment team and chart notes were reviewed. Chief Complaint: SI/HI Side effects to medication: denies Sleep: slept through the night Intake: eating/drinking without difficulty Groups: appropriately participating and attending groups Interactions & function: gets along well with peers Patient reports doing well and appears to be in a good mood. She states yesterday evening she was sparkle bad mood. She was given stress ball, which pt reports was helpful. States she is glad her neighborwill be discharging today. Once again discussed not wanting to go back home and wanting to go directly to longterm. Pt requested Melatonin be scheduled because she does not want to ask for it. She reports it helps her sleep. Pt is denying symptoms of anxiety and depression at this time. She is denying SI, SIB thoughts, HI, and AVH. The 10 point Review of Systems is negative other than noted above. Medications: SCHEDULED: ??? levonorgestrel-ethinyl estradiol 1 tablet Oral Daily ??? QUEtiapine 300 mg Oral At Bedtime ??? cholecalciferol 25 mcg Oral Daily PRN: acetaminophen, diphenhydrAMINE OR diphenhydrAMINE, hydrOXYzine, lidocaine 4%, melatonin, OLANZapine zydis OR OLANZapine Allergies: Allergies Allergen Reactions ??? Nkda [No Known Drug Allergies] ??? Seasonal Allergies Psychiatric Mental Status Examination: BP 135/81 Pulse 97 Temp 98.7 ??F (37.1 ??C) (Temporal) Resp 16 Ht 1.733 m (5' 8.21) Wt 88kg (194 lb) SpO2 99% BMI 29.32 kg/m?? Appearance: awake, alert, adequately groomed, dressed in hospital scrubs and appeared as age stated Attitude: cooperative and pleasant Eye Contact: fair Mood: good Affect: appropriate and in normal range and mood congruent Speech: clear, coherent Psychomotor Behavior: no evidence of tardive dyskinesia, dystonia, or tics and intact station, gait and muscle tone Thought Process: Overall is logical but can be circumstantial Associations: no loose associations Thought Content: no evidence of suicidal ideation or homicidal ideation and no evidence of psychoticthought Insight: limited Judgment: fair Oriented to: time, person, and place Attention Span and Concentration: fair Recent and Remote Memory: intact Language: Able to read and write Fund of Knowledge: appropriate Muscle Strength and Tone: normal Gait and Station: Normal Labs: Labs have been personally reviewed. Results for orders placed or performed during the hospital encounter of 03/15/20 CBC with platelets differential Status: Abnormal Result Value Ref Range WBC 8.7 4.0 - 11.0 10e9/L RBC Count 4.27 3.7 - 5.3 10e12/L Hemoglobin 11.2 (L) 11.7 - 15.7 g/dL Hematocrit 35.4 35.0 - 47.0 % MCV 83 77 - 100 fl MCH 26.2 (L) 26.5 - 33.0 pg MCHC 31.6 31.5 - 36.5 g/dL RDW 13.3 10.0 - 15.0 % Platelet Count 416 150 - 450 10e9/L Diff Method Automated Method % Neutrophils 48.7 % % Lymphocytes 45.9 % % Monocytes 3.8 % % Eosinophils 1.3 % % Basophils 0.2 % % Immature Granulocytes 0.1 % Nucleated RBCs 0 0 /100 Absolute Neutrophil 4.2 1.3 - 7.0 10e9/L Absolute Lymphocytes 4.0 1.0 - 5.8 10e9/L Absolute Monocytes 0.3 0.0 - 1.3 10e9/L Absolute Eosinophils 0.1 0.0 - 0.7 10e9/L Absolute Basophils 0.0 0.0 - 0.2 10e9/L Abs Immature Granulocytes 0.0 0 - 0.4 10e9/L Absolute Nucleated RBC 0.0 Hemoglobin A1c Status: None Result Value Ref Range Hemoglobin A1C 5.4 0 - 5.6 % Comprehensive metabolic panel Status: Abnormal Result Value Ref Range Sodium 140 133 - 144 mmol/L Potassium 4.0 3.4 - 5.3 mmol/L Chloride 106 96 - 110 mmol/L Carbon Dioxide 24 20 - 32 mmol/L Anion Gap 10 3 - 14 mmol/L Glucose 81 70 - 99 mg/dL Urea Nitrogen 9 7 - 19 mg/dL Creatinine 0.82 0.50 - 1.00 mg/dL GFR Estimate GFR not calculated, patient <18 years old. >60 mL/min/[1.73_m2] GFR Estimate If Black GFR not calculated, patient <18 years old. >60 mL/min/[1.73_m2] Calcium 8.7 8.5 - 10.1 mg/dL Bilirubin Total 0.5 0.2 - 1.3 mg/dL Albumin 3.0 (L) 3.4 - 5.0 g/dL Protein Total 6.9 6.8 - 8.8 g/dL Alkaline Phosphatase 79 40 - 150 U/L ALT 15 0 - 50 U/L AST 7 0 - 35 U/L Lipid panel Status: Abnormal Result Value Ref Range Cholesterol 185 (H) <170 mg/dL Triglycerides 145 (H) <90 mg/dL HDL Cholesterol 66 >45 mg/dL LDL Cholesterol Calculated 90 <110 mg/dL Non HDL Cholesterol 119 <120 mg/dL TSH with free T4 reflex and/or T3 as indicated Status: None Result Value Ref Range TSH 1.62 0.40 - 4.00 mU/L Vitamin D Status: None Result Value Ref Range Vitamin D Deficiency screening 41 20 - 75 ug/L Joaquin Wheeler, [facility] - 03/20/2020 1:41 PM CDT DISCHARGE PLANNING NOTE Diagnosis/Procedure: Patient Active Problem List Diagnosis ??? Chromosomal abnormality ??? Learning disability ??? Anxiety ??? Insomnia ??? Aggression with talk of suicide/homicide ??? Suicidal ideation ??? Development delay ??? Mild anemia ??? Slow transit constipation ??? Pilonidal sinus ??? Pilonidal disease ??? S/P surgical removal of pilonidal cyst ??? Noninfectious ileitis ??? Suicidal ideations ??? JANETH (generalized anxiety disorder) ??? Borderline intellectual functioning Barrier to discharge: sx stabilization and disposition planning Today's Plan: [facility] spoke with patient's stock room manager Essence. She indicated patient's mother agreed to consider crisis respite but currently there is a 2-3 week wait for services and mother is not completely onboard with respite. Patient is currently on the wait list for long-term longterm placement. SHAD stated she is attempting to facilitate a meeting with local police regarding patient's obsession with calling the police when she is upset to attempt to prevent readmission to the hospital and would like a treatment production team advisor from the hospital to attend if possible. She will call when she has the meeting scheduled. Discharge plan or goal:Possible discharge to crisis respite. Care Rounds Attendance: [facility] blade boner RN OT/TR MD THERAPY NOTE Patient Active Problem List Diagnosis ??? Chromosomal abnormality ??? Learning disability ??? Anxiety ??? Insomnia ??? Aggression with talk of suicide/homicide ??? Suicidal ideation ??? Development delay ??? Mild anemia ??? Slow transit constipation ??? Pilonidal sinus ??? Pilonidal disease ??? S/P surgical removal of pilonidal cyst ??? Noninfectious ileitis ??? Suicidal ideations ??? JANETH (generalized anxiety disorder) ??? Borderline intellectual functioning DIuration: Met with patient on 03/20/20or a total [id number]. Patient Goals: The patient identified their treatment goals as Crisis stabilization Interventions used: increase the frequency of positive interaction.and positive feeling about self. Patient progress: patient continues to perseverate on mom hating her wants mom to understand how it affects her . Patient Response: Anthony continued to discus how her mother hates her stating mom calls her names ,which makes her feel bad about her self Asked if she has amelia expressed this to her mother and how what she tells her makes patient feel. Anika stated I have always told mom , but mom deos not care. I want you to help me express this to mom she continued. Grade Tamper asked patient what help she needs while here at the hospital , she stated she wants to go to an adult longterm Grade Tamper commended patient on her self advocacy on her needs and wants . patient indicated I don't want to fight with mom all the time . Assessment or plan: Call mom and schedule for family therapy Denia Dove RN - 03/19/2020 11:33 PM CDT Mahi participated in groups. She denied thoughts of hurting herself or others. She denied auditory or visual hallucinations. She responded well to suggestions for activities to do in her room such as sticker puzzles and a card game. At she talked about her worries regarding where she will go after this hospitalization. NUELT Denia Dove RN - 03/19/2020 11:23 PM CDT 1. What PRN did patient receive? Atarax/Vistaril and Sleep Medication (Melatonin, Trazodone) 2. What was the patient doing that led to the PRN medication? Help with Sleep 3. Did they require R/S? NO 4. Side effects to PRN medication? None 5. After 1 Hour, patient appeared: Sleeping Mahi Nunez LICSW - 03/19/2020 3:00 PM CDT Patient was the only participant in scheduled DBT group. Due to this, ad copy writer met with patient for 1:1 session instead. Patient received a handout on self soothing with the 5 senses. Reviewed self soothing exercises and different ideas. Patient shared example of when she could use the skill- which was last night. Patient identified feeling angry and hurt after several family members did not answer thephone when she called. Patient identified additional skills from the handout she could try next timeshe is feeling this way. Overall patient was engaged in cooperative. Bryan Peralta MD - 03/19/2020 12:05 PM CDT [facility] [place] Psych[facility] Progress Note Impression: Formulation: From Dr. Lawton H/P Mahi is a 19-year-old adolescent with a psychiatric history of borderline intellectual functioning, chromosomal anomalies, learning disabilities, anxiety, and depression, with numerous prior psychiatric hospitalizations. Mahi resided in a longterm until November 2019, and since that time has been residing with her mother due to the longterm's closure. She recently experienced increased verbal conflict with her mother, characterized by poor distress tolerance and rapid escalation of suicidal and homicidal ideation during these arguments. On the day of admission, she argued with her mother, making suicidal and homicidal threats, and ran away from home until apprehended by police. Following admission to the hospital, Mahi maintains that she will stab her mother or herself if she returns home, although does not wish to do so in the hospital setting. Nevertheless, her intellectual functioning, poor distress tolerance, and poor impulse control, in the context of prior self-injury and recent and unresolved conflict with her mother, place her at high risk of harming herself and others in the near future. Consequently, she requires inpatient psychiatric hospitalization for stabilization and safety. Course: This is a 19 year old female admitted for SI, HI and out of control behaviors. We are adjusting medications to target mood, impulsivity and poor frustration tolerance. We are also working with the patient on therapeutic skill building. 03/18/20- Plan to continue Seroquel, will be looking for adult longterm placement Diagnoses and Plan: Unit: 7AE Attending: Fabian Psychiatric Diagnoses: Principal Problem: - Adjustment disorder with disturbance of mood and conduct - Borderline Intellectual Functioning Active Problems: - JANETH - Hx of Depression - Hx of Learning disorders - Hx of Chromosomal abnormalities Medications (psychotropic): risks/benefits discussed with mother - Decrease Seroquel 300 mg at bedtime (at one point was at 600 mg and has been slowly titrated off) - Decrease Metformin 500 mg daily (has been ineffective per mother) - Will attempt to contact outpatient psychiatrist, Dr. Beyer for further collateral - Will also request medical records from [facility] PRNs as ordered: acetaminophen, diphenhydrAMINE OR diphenhydrAMINE, hydrOXYzine, lidocaine 4%, melatonin, OLANZapine zydis OR OLANZapine Laboratory/Imaging/ Test Results: - Upreg neg, UDS neg, COMP wnl, CBC wnl, TSH wnl and Vitamin D wnl - Lipids: Chol 185, TGL 145 Consults: - Family Assessment completed and reviewed - Patient treated in therapeutic milieu with appropriate individual and group therapies as indicatedand as able. - Collateral information, ROIs, legal documentation, prior testing results, etc requested within 24 hr of admit. Medical diagnoses to be addressed this admission: #Metabolic Disturbances - likely 2/2 to Seroquel - Continue Metformin - Provide nutrition education Legal Status: Voluntary Safety Assessment: Checks: Status 15 Additional Precautions: Suicide Self-harm Assault Pt has not required locked seclusion or restraints in the past 24 hours to maintain safety, please refer to plastic dolls mold filler for further details. The risks, benefits, alternatives and side effects have been discussed and are understood by the patient and other caregivers. Anticipated Disposition: Discharge date: 5-7 days Target disposition: Likely adult longterm placement Attestation: Patient has been seen and evaluated by me, Bryan Peralta MD Interim History: The patient's care was discussed with the treatment team and chart notes were reviewed. Chief Complaint: SI/HI Side effects to medication: denies Sleep: slept through the night Intake: eating/drinking without difficulty Groups: appropriately participating and attending groups Interactions & function: gets along well with peers Patient reports doing well. She was excited about the journal she made in group today. She reports last night, around 10 pm she became upset. According to RN notes, pt upset about decreases in medications and about her mother not wanting her anymore. Pt reports she would prefer not to return home and would rather go straight to longterm following hospitalization. She reports not feeling safe if shewere to return home. States mother yells and swears at her. Pt also complained that mother never yells at younger brother. Pt was very talkative this AM and jumps around from different topics. She is aware of medications she is prescribed. She reports feeling more hungry than usual and does not feel Metformin has helped with appetite (which mother agreed with as well). Pt discussed what she is planning to order for food. She did discuss requesting Melatonin to be scheduled and felt that was helpful for sleep. She does report having some minor back pain- states she thinks it's from yoga. States she did take Tylenol and is feeling better this AM. At this time pt denies SI, SIB thoughts, HI, and AVH. She reports feeling safe on the unit and feelscomfortable with notifying staff with issues or concerns. The 10 point Review of Systems is negative other than noted above. Medications: SCHEDULED: ??? levonorgestrel-ethinyl estradiol 1 tablet Oral Daily ??? metFORMIN 500 mg Oral Daily with supper ??? QUEtiapine 300 mg Oral At Bedtime ??? cholecalciferol 25 mcg Oral Daily PRN: acetaminophen, diphenhydrAMINE OR diphenhydrAMINE, hydrOXYzine, lidocaine 4%, melatonin, OLANZapine zydis OR OLANZapine Allergies: Allergies Allergen Reactions ??? Nkda [No Known Drug Allergies] ??? Seasonal Allergies Psychiatric Mental Status Examination: BP (!) 143/78 Pulse 94 Temp 97.6 ??F (36.4 ??C) Resp 16 Ht 1.733 m (5' 8.21) Wt 88 kg (194 lb) SpO2 97% BMI 29.32 kg/m?? Appearance: awake, alert, adequately groomed, dressed in hospital scrubs and appeared as age stated Attitude: cooperative and pleasant Eye Contact: fair Mood: good Affect: appropriate and in normal range and mood congruent Speech: clear, coherent Psychomotor Behavior: no evidence of tardive dyskinesia, dystonia, or tics and intact station, gait and muscle tone Thought Process: Overall is logical but can be circumstantial Associations: no loose associations Thought Content: no evidence of suicidal ideation or homicidal ideation and no evidence of psychoticthought Insight: limited Judgment: fair Oriented to: time, person, and place Attention Span and Concentration: fair Recent and Remote Memory: intact Language: Able to read and write Fund of Knowledge: appropriate Muscle Strength and Tone: normal Gait and Station: Normal Labs: Labs have been personally reviewed. Results for orders placed or performed during the hospital encounter of 03/15/20 CBC with platelets differential Status: Abnormal Result Value Ref Range WBC 8.7 4.0 - 11.0 10e9/L RBC Count 4.27 3.7 - 5.3 10e12/L Hemoglobin 11.2 (L) 11.7 - 15.7 g/dL Hematocrit 35.4 35.0 - 47.0 % MCV 83 77 - 100 fl MCH 26.2 (L) 26.5 - 33.0 pg MCHC 31.6 31.5 - 36.5 g/dL RDW 13.3 10.0 - 15.0 % Platelet Count 416 150 - 450 10e9/L Diff Method Automated Method % Neutrophils 48.7 % % Lymphocytes 45.9 % % Monocytes 3.8 % % Eosinophils 1.3 % % Basophils 0.2 % % Immature Granulocytes 0.1 % Nucleated RBCs 0 0 /100 Absolute Neutrophil 4.2 1.3 - 7.0 10e9/L Absolute Lymphocytes 4.0 1.0 - 5.8 10e9/L Absolute Monocytes 0.3 0.0 - 1.3 10e9/L Absolute Eosinophils 0.1 0.0 - 0.7 10e9/L Absolute Basophils 0.0 0.0 - 0.2 10e9/L Abs Immature Granulocytes 0.0 0 - 0.4 10e9/L Absolute Nucleated RBC 0.0 Hemoglobin A1c Status: None Result Value Ref Range Hemoglobin A1C 5.4 0 - 5.6 % Comprehensive metabolic panel Status: Abnormal Result Value Ref Range Sodium 140 133 - 144 mmol/L Potassium 4.0 3.4 - 5.3 mmol/L Chloride 106 96 - 110 mmol/L Carbon Dioxide 24 20 - 32 mmol/L Anion Gap 10 3 - 14 mmol/L Glucose 81 70 - 99 mg/dL Urea Nitrogen 9 7 - 19 mg/dL Creatinine 0.82 0.50 - 1.00 mg/dL GFR Estimate GFR not calculated, patient <18 years old. >60 mL/min/[1.73_m2] GFR Estimate If Black GFR not calculated, patient <18 years old. >60 mL/min/[1.73_m2] Calcium 8.7 8.5 - 10.1 mg/dL Bilirubin Total 0.5 0.2 - 1.3 mg/dL Albumin 3.0 (L) 3.4 - 5.0 g/dL Protein Total 6.9 6.8 - 8.8 g/dL Alkaline Phosphatase 79 40 - 150 U/L ALT 15 0 - 50 U/L AST 7 0 - 35 U/L Lipid panel Status: Abnormal Result Value Ref Range Cholesterol 185 (H) <170 mg/dL Triglycerides 145 (H) <90 mg/dL HDL Cholesterol 66 >45 mg/dL LDL Cholesterol Calculated 90 <110 mg/dL Non HDL Cholesterol 119 <120 mg/dL TSH with free T4 reflex and/or T3 as indicated Status: None Result Value Ref Range TSH 1.62 0.40 - 4.00 mU/L Vitamin D Status: None Result Value Ref Range Vitamin D Deficiency screening 41 20 - 75 ug/L Joaquin Wheeler, [facility] - 03/19/2020 12:00 PM CDT DISCHARGE PLANNING NOTE Diagnosis/Procedure: Patient Active Problem List Diagnosis ??? Chromosomal abnormality ??? Learning disability ??? Anxiety ??? Insomnia ??? Aggression with talk of suicide/homicide ??? Suicidal ideation ??? Development delay ??? Mild anemia ??? Slow transit constipation ??? Pilonidal sinus ??? Pilonidal disease ??? S/P surgical removal of pilonidal cyst ??? Noninfectious ileitis ??? Suicidal ideations ??? JANETH (generalized anxiety disorder) ??? Borderline intellectual functioning Barrier to discharge: evaluation and stabilization Today's Plan: Grade Tamper sent out an MIKE to [facility] in request for psychiatry records/psychologial testing and evaluations. CTC spoke with patient's mother Eleanor. She expressed CM has been speaking with mom about crisis respite home until [facility] able to find a longterm placement. Mother is unsure if she is ready to send patient to crisis respite, Mother is open to family therapy but report concerns patient is wanting the drama and police attention because she is obsessed with police. ELBERT left a VM with patient's CM [facility] [phone]. Discharge plan or goal: TBD Care Rounds Attendance: ELBERT blade boner RN OT/TR MD THERAPY NOTE Patient Active Problem List Diagnosis ??? Chromosomal abnormality ??? Learning disability ??? Anxiety ??? Insomnia ??? Aggression with talk of suicide/homicide ??? Suicidal ideation ??? Development delay ??? Mild anemia ??? Slow transit constipation ??? Pilonidal sinus ??? Pilonidal disease ??? S/P surgical removal of pilonidal cyst ??? Noninfectious ileitis ??? Suicidal ideations ??? JANETH (generalized anxiety disorder) ??? Borderline intellectual functioning Duration: Met with patient on 03/19/20, for a total of 30 minutes. Patient Goals: The patient identified their treatment goals as Cisis stabilization Interventions used: Rapport building, validation Patient progress: Anthony stated she was doing OK Patient Response: Checked in with patient. Grade Tamper introduced herself to Mahi informing her that she will be working with her and her doctor Patient asked ad copy writer how she got to know her name , writerexplained how in few words. Patient informed ad copy writer that she would turn 20 next Wednesday and wondered if she could be allowed to pick her own movie to watch. She stated she understand its difficult to make plans for her , she had planned what she would do onher 20 birthday and that the plans have fallen a part now that she is here . Anthony stated that her mother does not like her very much calls her names which is pretty violentshe stated. She stated she gets really angry when her mother treats her bad. She went on to say her mother wants her to go to a Adult longterm but she wants to go home but will see about that later . Grade Tamper appreciated patient to taking her time to get to know each other, and her insight into what her needs are are and inoformed her that she will talk to staff and see if they can let her chose her movie on her day. Assessment or plan: Individual and family therapy to address highly expressed emotional level with mom. Jeimy Cronin RN - 03/18/2020 11:10 PM CDT Mahi perseverated on not being informed about her med changes and on her mother hating her. None of this is substantiated, yet Mahi will speak heatedly becoming quite angry, perspire, state her discomfort without ability to calm very easily. She bit her thumb, but did not break skin. 1. What PRN did patient receive? Tylenol 2. What was the patient doing that led to the PRN medication? Pain-SHARPE 3. Did they require R/S? NO 4. Side effects to PRN medication? None 5. After 1 Hour, patient appeared: Pain free 1. What PRN did patient receive? Hydroxyzine 2. What was the patient doing that led to the PRN medication? Agitation/Anxiety 3. Did they require R/S? NO 4. Side effects to PRN medication? None 5. After 1 Hour, patient appeared: More Agitated 1. What PRN did patient receive? Melatonin 2. What was the patient doing that led to the PRN medication? Agitation/Sleep aid 3. Did they require R/S? NO 4. Side effects to PRN medication? None 5. After 1 Hour, patient appeared: Sleeping Azra Lewis - 03/18/2020 10:46 PM CDT 03/18/202238 Behavioral Health Hallucinations denies / not responding to hallucinations Thinking intact Orientation person: oriented;place: oriented;date: oriented;time: oriented Memory baseline memory Insight poor Judgement impaired Eye Contact at examiner Affect full range affect;angry Mood depressed;hopeless Physical Appearance/Attire appears stated age Hygiene well groomed Suicidality thoughts only 1. Wish to be (Recent) Yes 2. Non-Specific Active Suicidal Thoughts (Recent) No Self Injury thoughts only Elopement (none observed) Activity (active) Speech clear;coherent Psychomotor / Gait balanced;steady Activities of Daily Living Hygiene/Grooming independent Oral Hygiene independent Dress scrubs (behavioral health) Room Organization independent Patient did not require seclusion/restraints to manage behavior. Mahi Faye did participate in groups and was visible in the milieu. Notable mental health symptoms during this shift:irritability complaints of excessive worries repetitive behaviors Patient is working on these coping/social skills: Sharing feelings Distraction Positive social behaviors Breathing exercises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 brother. Medications: Current Facility-Administered Medications Medication ??? acetaminophen (TYLENOL) tablet 650 mg ??? amoxicillin-clavulanate (AUGMENTIN) 875-125 MG per tablet 1 tablet ??? calcium carbonate (TUMS) chewable tablet 500 mg ??? diphenhydrAMINE (BENADRYL) capsule 25 mg Or ??? diphenhydrAMINE (BENADRYL) injection 25 mg ??? hydrOXYzine (ATARAX) tablet 25-50 mg ??? ibuprofen (ADVIL/MOTRIN) tablet 400 mg ??? levonorgestrel-ethinyl estradiol (NORDETTE) 0.15-30 MG-MCG per tablet 1 tablet ??? lidocaine (LMX4) cream ??? melatonin tablet 3 mg ??? OLANZapine zydis (zyPREXA) ODT tab 5 mg Or ??? OLANZapine (zyPREXA) injection 5 mg ??? QUEtiapine (SEROquel) tablet 300 mg ??? 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 General: alert, cooperative, no apparent distress Head: atraumatic, normocephalic Eyes: extraocular muscles intact, pupils grossly normal Nose: no nasal discharge Mouth: mucus membranes moist Neck: supple CV: extremities well-perfused Lungs: normal work of breathing Musculoskeletal: tone normal, gait normal. Neuro: CN II-XII grossly intact, alert and oriented Psych: affect flat, speech slow and soft Skin: there are two puncture wounds on the dorsal surface of the left wrist. The wounds are quite shallow. No surrounding erythema, no streaking. Mild swelling of the surrounding tissue. Data: All laboratory data reviewed Thanks for the consultation. I will continue to follow along during the hospitalization on an as needed basis. Lindsey Richards MD Adolescent Medicine Fellow Pager: [phone] March 27, 2020 documented in this encounter Miscellaneous Notes Plan of Care - Kandi Muro RN - 03/31/2020 2:15 PM CDT Pt discharged from station 7A to home with services. Pt expresses excitement about discharge and going back to school. All medications and belongings were returned to pt. AVS medication and outpatient instructions reviewed with pt's mother, Eleanor. Pt denies SI/SIB/HI, denies feeling depressed or anxious. Plan of Care - Rhonda He RN - 03/30/2020 3:24 PM CDT 1. What PRN did patient receive? Other motrin and fluids encouraged for wrist and headache pain thismorning at 0925 and Tums at 1515 for indigestion. Pt appeared in no acute distress. 2. What was the patient doing that led to the PRN medication? Pain 3. Did they require R/S? NO 4. Side effects to PRN medication? None 5. After 1 Hour, patient appeared: Calm Plan of Care - Parker Santillan RN - 03/30/2020 1:08 PM CDT Problem: Suicidal Behavior Goal: Suicidal Behavior is Absent or Managed Outcome: No Change Patient continues on 7A on status 15. Presented with a full range affect, appeared anxious at times but declined feeling anxious. Denied feeling depressed, no SI/SIB/HI, and denied experiencing hallucinations. Reported day as good. Reported mood as happy. Patient was not interested in checking in w ith ad copy writer as evidenced by patient appearing restless and asking multiple times, Are we done now? Denied having any physical concerns. She declined showering this morning after being encouraged by multiple staff. She stated, I'll shower tonight so I'm ready for discharge tomorrow! She participatedin groups and was visible in the milieu. Plan of Care - Jerica Whitney - 03/29/2020 8:31 PM CDT Problem: General Rehab Plan of Care Goal: Therapeutic Recreation/Music Therapy Goal Description: The patient and/or their entry level account representative will achieve their patient- specific goals related to the plan of care. The patient-specific goals include: Patient will attend and participate in scheduled Therapeutic Recreation and Music Therapy group interventions. The groups will focus on assisting the patient to receive knowledge to balance impulse control, increase understanding of triggers and emotions, and increase understanding how to express/manage in appropriate and non-violent ways. The two therapeutic groups will assist the patient to developalternatives from aggressive behaviors to appropriate behaviors. 1. Patient will identify personal risk factors as well as signs and symptoms connected to aggressiveand violence behaviors. 2. Patient will identify a plan to seek assistance when signs and symptoms begin through communication skills. 3. Patient will enhance sense of safety to decrease feelings of aggression, violence, and vulnerability. 4. Patient will expand expression of feelings, needs, and concerns through nonviolent channels and relaxation techniques. (art, music, and recreation) Attended full hour of music therapy group, with 5 patients present. Intervention focused on improving self-expression, positive coping, and mood. Pt checked in as feeling happy because I get to leave in 2 days! She spent the full hour singing karaoke by herself. Pt did not appear to want to sing with peers, but was willing to take turns. Cooperative and pleasant. 03/29/20202030 by Jerica Whitney Outcome: No Change Plan of Care - Petra Whitney - 03/29/2020 3:56 PM CDT Problem: General Rehab Plan of Care Goal: Therapeutic Recreation/Music Therapy Goal Description: The patient and/or their entry level account representative will achieve their patient- specific goals related to the plan of care. The patient-specific goals include: Patient will attend and participate in scheduled Therapeutic Recreation and Music Therapy group interventions. The groups will focus on assisting the patient to receive knowledge to balance impulse control, increase understanding of triggers and emotions, and increase understanding how to express/manage in appropriate and non-violent ways. The two therapeutic groups will assist the patient to developalternatives from aggressive behaviors to appropriate behaviors. 1. Patient will identify personal risk factors as well as signs and symptoms connected to aggressiveand violence behaviors. 2. Patient will identify a plan to seek assistance when signs and symptoms begin through communication skills. 3. Patient will enhance sense of safety to decrease feelings of aggression, violence, and vulnerability. 4. Patient will expand expression of feelings, needs, and concerns through nonviolent channels and relaxation techniques. (art, music, and recreation) Patient attended a scheduled therapeutic recreation group today; selecting and engaging in self-directed leisure, choosing to play games cooperatively with another using [employer]. Intervention addressed the following: Improving life satisfaction and life quality, Increasing decision making and problem-solving skills Decreasing social isolation and withdrawal Improving ability to socially interact Increase coping strategies Patient shared their biggest stress this week as: being in the hospital. Patient felt this stress has improved over the course of week. I found out I will be going home. Patient used the following coping strategies this week: medication for my anxiety. Patient would have liked to change the following about this week: eat better food. Patient plans to take care of self this weekend by: calling my family. Group size: 5 Group duration: 55 minutes Prompts to wear mask, patient did not wear mask. 03/29/2020 1556 by Petra Whitney Outcome: Improving 9 Plan of Care - Mahi Jamison - 03/29/2020 3:06 PM CDT Attended full hour of music therapy group with 5 patients present. Interventions focused on self-expression, cooperation and mood improvement. Pt participated by doing karaoke with peers. Not as brightor as social as in yesterday's group but pt had just woken up from nap and appeared to still be sleepy. Calm and cooperative throughout the session. Plan of Care - Janis Agudelo OT - 03/29/2020 1:01 PM CDT Problem: General Rehab Plan of Care Goal: Occupational Therapy Goals Description: The patient and/or their entry level account representative will achieve their patient- specific goals related to the plan of care. The patient-specific goals include: Interventions to focus on decreasing symptoms of depression, decreasing self- injurious behaviors, elimination of suicidal ideation and elevation of mood. Additional interventions to focus on identifying and managing feelings, stress management, exercise, and healthy coping skills. Pt actively participated in a structured occupational therapy group of 5 patients total with a focuson coping through task x60 min. During check-in, pt reported her highlight of the week as: going home Wednesday, good food, ways it could have gone better as: leigh, who supported me as: staff, and leisure plans for the weekend as: going home Wednesday. Pt was able to ask for assistance as needed, andindependently initiate self-selected task-window clings. Pt demonstrated ok focus, planning, and problem solving. Pt continues to become easily frustrated when struggling with tasks and required mod A from therapist to not become overly frustrated. Pt appeared comfortable interacting with peers. Fluctuating affect. Outcome: No Change Plan of Care - Rhonda He RN - 03/29/2020 10:21 AM CDT Called pharmacy to inquire about obtaining a new pack of pt's bc pills, as Mahi had her last pillfrom her home-supply pack yesterday. Her RN yesterday spoke c Mahi's mom who indicated that Mahi skips her period and only takes active pills. Pharmacy called back this morning to indicate that anew pill pack will be sent up to unit within the next 30 min. Plan of Care - Jerica Whitney - 03/28/2020 8:12 PM CDT Problem: General Rehab Plan of Care Goal: Therapeutic Recreation/Music Therapy Goal Description: The patient and/or their entry level account representative will achieve their patient- specific goals related to the plan of care. The patient-specific goals include: Patient will attend and participate in scheduled Therapeutic Recreation and Music Therapy group interventions. The groups will focus on assisting the patient to receive knowledge to balance impulse control, increase understanding of triggers and emotions, and increase understanding how to express/manage in appropriate and non-violent ways. The two therapeutic groups will assist the patient to developalternatives from aggressive behaviors to appropriate behaviors. 1. Patient will identify personal risk factors as well as signs and symptoms connected to aggressiveand violence behaviors. 2. Patient will identify a plan to seek assistance when signs and symptoms begin through communication skills. 3. Patient will enhance sense of safety to decrease feelings of aggression, violence, and vulnerability. 4. Patient will expand expression of feelings, needs, and concerns through nonviolent channels and relaxation techniques. (art, music, and recreation) Attended full hour of music therapy group, with 4 patients present. Intervention focused on improving frustration tolerance, positive coping, and mood. Pt checked in as feeling happy, because I am leaving Wednesday! She actively participated in music [employer], and handled frustration appropriately when getting questions wrong. She spent remainder of group singing [employer] and appeared content. Cooperative and pleasant. 03/28/2020 2012 by Jerica Whitney Outcome: Improving Plan of Care - Mahi Jamison - 03/28/2020 2:41 PM CDT Attended full hour of music therapy group with 4 patients present. Interventions focused on socialization, improving mood and cooperation. Pt participated by engaging in group music game and later singing [employer]. Bright affect. Pleasant and cooperative throughout the session. Plan of Care - Radha Anton RN - 03/28/2020 1:25 PM CDT 48 hour nursing assessment: Pt evaluation continues. Assessed mood, anxiety, thoughts and behavior. Is progressing towards goals. Encourage participation in groups and developing healthy coping skills.Pt denies auditory or visual hallucinations. Refer to daily team meeting notes for individualized plan of care. Pt reports eating, drinking and sleeping well. She was medication compliant and denies side effects.Pt denies any pain or discomfort. No s/s of infection, mild swelling at site of self-inflicted bite from yesterday. Pt attended groups and participated fully. Pt presents with a bright affect and she expressed excitement that she will be discharging Wednesday so she can attend school on Wednesday. Pt neededprompts and encouragement for hygiene cares. Pt denies SI/SIB and exhibited safe behavior this shift. She denies any current thoughts to harm others. Will continue to monitor. Plan of Care - Jerica Whitney - 03/27/2020 8:26 PM CDT Problem: General Rehab Plan of Care Goal: Therapeutic Recreation/Music Therapy Goal Description: The patient and/or their entry level account representative will achieve their patient- specific goals related to the plan of care. The patient-specific goals include: Patient will attend and participate in scheduled Therapeutic Recreation and Music Therapy group interventions. The groups will focus on assisting the patient to receive knowledge to balance impulse control, increase understanding of triggers and emotions, and increase understanding how to express/manage in appropriate and non-violent ways. The two therapeutic groups will assist the patient to developalternatives from aggressive behaviors to appropriate behaviors. 1. Patient will identify personal risk factors as well as signs and symptoms connected to aggressiveand violence behaviors. 2. Patient will identify a plan to seek assistance when signs and symptoms begin through communication skills. 3. Patient will enhance sense of safety to decrease feelings of aggression, violence, and vulnerability. 4. Patient will expand expression of feelings, needs, and concerns through nonviolent channels and relaxation techniques. (art, music, and recreation) Attended full hour of music therapy group, with 4-5 patients present. Intervention focused on improving feeling identification and mood. Pt stated that she had a rough day, and asked if it was better, she nodded. She participated in songs and emotions bingo, and was somewhat impulsive during the game, saying answers quickly. She spent remainder of group singing karaoke by herself, and appeared to enjoy it, Was social with peers at times, and polite. Outcome: No Change Provider Notification - Criss Hartley RN - 03/27/2020 11:20 AM CDT 03/27/20 1115 Seclusion or Restraint Order In Person Face to Face Assessment Conducted Yes-Eval of pt's immediate situation, reaction to intervention, complete review of systems assessment, behavioral assessment & review/assessment of hx, drugs & meds, recent labs, etc, behavioral condition, need to continue/terminate restraint/seclusion Patient Experienced No adverse physical outcome from seclusion/restraint initiation Continuation of Seclus/Restraint indicated at this time Yes Face to face was conducted and no injuries sustained from the physical hold. MD Muñoz was notified. Plan of Care - Jerica Whitney - 03/26/2020 8:19 PM CDT Problem: General Rehab Plan of Care Goal: Therapeutic Recreation/Music Therapy Goal Description: The patient and/or their entry level account representative will achieve their patient- specific goals related to the plan of care. The patient-specific goals include: Patient will attend and participate in scheduled Therapeutic Recreation and Music Therapy group interventions. The groups will focus on assisting the patient to receive knowledge to balance impulse control, increase understanding of triggers and emotions, and increase understanding how to express/manage in appropriate and non-violent ways. The two therapeutic groups will assist the patient to developalternatives from aggressive behaviors to appropriate behaviors. 1. Patient will identify personal risk factors as well as signs and symptoms connected to aggressiveand violence behaviors. 2. Patient will identify a plan to seek assistance when signs and symptoms begin through communication skills. 3. Patient will enhance sense of safety to decrease feelings of aggression, violence, and vulnerability. 4. Patient will expand expression of feelings, needs, and concerns through nonviolent channels and relaxation techniques. (art, music, and recreation) Attended full hour of music therapy group, with 8 patients present. Intervention focused on improving emotional awareness and mood. Pt checked in as feeling worried, but she appeared calm and content. She actively participated in music game, and worked well with her peers. She took turns singing karaoke with peers during free time, and appeared happy. Cooperative and pleasant. 03/26/2020 2019 by Jerica Whitney Outcome: Improving Plan of Care - Janis Agudelo OT - 03/26/2020 3:30 PM CDT Problem: General Rehab Plan of Care Goal: Occupational Therapy Goals Description: The patient and/or their entry level account representative will achieve their patient- specific goals related to the plan of care. The patient-specific goals include: Interventions to focus on decreasing symptoms of depression, decreasing self- injurious behaviors, elimination of suicidal ideation and elevation of mood. Additional interventions to focus on identifying and managing feelings, stress management, exercise, and healthy coping skills. Pt attended and participated in a 11:00 structured occupational therapy group session of 6 peers total with a focus on social skills x55 min. Pt engaged in a therapeutic conversation about positive coping skills and supports in the context of a group game of [employer]. Pt identified ways to give a compliment, identify positive qualities about themselves and felt comfortable sharing memories with staff and peers. Bright affect. Poor social awareness and required direction from therapist to let peers speak. Will continue to assess. Pt actively participated in a 1:30 structured occupational therapy group of 6-7 patients total with a focus on coping through task x60 min. Pt was able to ask for assistance as needed, and independently initiate self-selected task-making window clings. Pt demonstrated good focus, planning, and problemsolving. Pt appeared comfortable interacting with peers. Worked quickly through tasks. Required significant 1:1 attention from therapist during tasks d/t low frustration tolerance and approval seeking.Bright affect. Outcome: No Change Plan of Care - Jerica Whitney - 03/26/2020 1:05 PM CDT Problem: General Rehab Plan of Care Goal: Therapeutic Recreation/Music Therapy Goal Description: The patient and/or their entry level account representative will achieve their patient- specific goals related to the plan of care. The patient-specific goals include: Patient will attend and participate in scheduled Therapeutic Recreation and Music Therapy group interventions. The groups will focus on assisting the patient to receive knowledge to balance impulse control, increase understanding of triggers and emotions, and increase understanding how to express/manage in appropriate and non-violent ways. The two therapeutic groups will assist the patient to developalternatives from aggressive behaviors to appropriate behaviors. 1. Patient will identify personal risk factors as well as signs and symptoms connected to aggressiveand violence behaviors. 2. Patient will identify a plan to seek assistance when signs and symptoms begin through communication skills. 3. Patient will enhance sense of safety to decrease feelings of aggression, violence, and vulnerability. 4. Patient will expand expression of feelings, needs, and concerns through nonviolent channels and relaxation techniques. (art, music, and recreation) Attended full hour of music therapy group, with 5-6 patients present. Intervention focused on improving insight and mood. Pt did not want to participate in check in or in song discussion. She perseverated on topics related to a conference with the police tomorrow, and about not wanting to return home.She stated I bet I won't get to go back to [place] because they'll say I call the police too much. I bet I can stay with other family because I can't go home with my mom. She also talked about wanting to transfer to young adult unit. She needed redirection for sharing too much information with a peer, but minimally responded. She observed remained of group, with a sullen affect. Outcome: No Change Provider Notification - Jeimy Cronin RN - 03/25/2020 11:16 PM CDT Mahi attended all activities. She was overall polite and engaged appropriately with activity at hand. She had a SHARPE mid-shift and got Tylenol and later Melatonin to aid sleep. There were no more episodes of anxiety this shift. She is eating/ sleeping okay and denies issues with medications. 1. What PRN did patient receive? Tylenol 2. What was the patient doing that led to the PRN medication? Pain 3. Did they require R/S? NO 4. Side effects to PRN medication? None 5. After 1 Hour, patient appeared: Calm 1. What PRN did patient receive? Melatonin 2. What was the patient doing that led to the PRN medication? Sleep aid 3. Did they require R/S? NO 4. Side effects to PRN medication? None 5. After 1 Hour, patient appeared: Sleeping Plan of Mahi Shirley - 03/24/2020 2:34 PM CDT Attended full hour of music therapy group with 6 patients present. Interventions focused on self-esteem, self-expression and improving mood. Pt participated by listening to music and playing cards. Pt presented with a flat affect and checked in as feeling, sad, upset and mad but did not elaborate. Pt had little interaction with peers and kept to herself. Cooperative and calm. Plan of Aubrey - Mahi Gandhi RN - 03/24/2020 11:47 AM CDT 48 Hour Assessment: Pt attending and participating in most unit groups/activities. Pt became anxious during an exercise group, handled it appropriately and requested PRN. See PRN note. Pt appropriate and social with staffand peers. Pt took nap today. SI/Self harm: denies HI: denies AVH: denies Sleep: Pt states she slept well last night. PRN: Hydroxyzine 50 mg Medication AE: None stated none observed Pain: denies I & O: Pt eating and drinking without issue LBM: Yesterday per pt ADLs: Pt showered yesterday, needs prompts Visits: None this shift due to Covid protocol Vitals: WNL Plan of Mahi Shirley - 2020 2:41 PM CDT Attended full hour of music therapy group with 6 patients present. Interventions focused on cooperation, self-expression, and increasing self-esteem. Pt participated by singing karaoke with peers. Bright affect. Engaged and pleasant throughout the session. Pt worked well with peer in working out what songs to sing next. Positive attitude. Plan of Aubrey - Janis Agudelo OT - 03/22/2020 3:09 PM CDT Problem: General Rehab Plan of Care Goal: Occupational Therapy Goals Description: The patient and/or their entry level account representative will achieve their patient- specific goals related to the plan of care. The patient-specific goals include: Interventions to focus on decreasing symptoms of depression, decreasing self- injurious behaviors, elimination of suicidal ideation and elevation of mood. Additional interventions to focus on identifying and managing feelings, stress management, exercise, and healthy coping skills. Pt actively participated in a structured occupational therapy group of 4-5 patients total with a focus on coping through task x60 min. During check-in, pt reported her highlight of the week as: my birthday, wii, ds, ways it could have gone better as: no ways, it was perfect, who supported me as: my staff, my nurse, my doctor, and leisure plans for the weekend as: my birthday. Pt was able to ask for assistance as needed, and independently initiate self- selected task-making shrinky dinks. Pt demonstrated good focus, planning, and problem solving. Min-mod A with task in order to not become overly frustrated by it. Struggles with peer's use of materials and her rigid thinking at times. Pt appeared comfortable interacting with peers. Content affect. Outcome: No Change Plan of Care - Mahi Jamison - 03/22/2020 12:49 PM CDT Attended full hour of music therapy group with 6-7 patients present. Interventions focused on self-expression, relaxation and improving mood. Pt participated by playing the keyboard. Pleasant and cooperative throughout the session. Pt had good focus while playing the keyboard and asked for help as need ed. Pt checked in as feeling, happy and had a bright affect. Plan of Care - Petra Whitney - 03/22/2020 12:26 PM CDT Problem: General Rehab Plan of Care Goal: Therapeutic Recreation/Music Therapy Goal Description: The patient and/or their entry level account representative will achieve their patient- specific goals related to the plan of care. The patient-specific goals include: Patient will attend and participate in scheduled Therapeutic Recreation and Music Therapy group interventions. The groups will focus on assisting the patient to receive knowledge to balance impulse control, increase understanding of triggers and emotions, and increase understanding how to express/manage in appropriate and non-violent ways. The two therapeutic groups will assist the patient to developalternatives from aggressive behaviors to appropriate behaviors. 1. Patient will identify personal risk factors as well as signs and symptoms connected to aggressiveand violence behaviors. 2. Patient will identify a plan to seek assistance when signs and symptoms begin through communication skills. 3. Patient will enhance sense of safety to decrease feelings of aggression, violence, and vulnerability. 4. Patient will expand expression of feelings, needs, and concerns through nonviolent channels and relaxation techniques. (art, music, and recreation) Patient attended and participated in therapeutic recreation group session this morning. Interventionemphasized social skills through play experience. Patient initiated self-directed leisure pursuit for self-care. Patient independently selected the following activity: playing [employer] on [employer]. She stated she loved this game. Mood was happy. Additional interventions emphasized: Increased social interaction skills Increased self-esteem, self confidence Increased friendship relationships Improved recreational skill acquisition Elevation of mood and affect through self selected leisure interest Group size: 7 Group duration: 50 minutes Outcome: Improving Plan of Aubrey - Mahi Gandhi RN - 03/22/2020 11:32 AM CDT 48 Hour Assessment: Pt attending and participating in unit groups/activities. Pt appropriate and social with staff and peers. Pt excited that she heard she may transfer to young adult unit sometime next week. SI/Self harm: denies HI: denies AVH: denies Sleep: Pt states she slept well. PRN: None this shift Medication AE: None stated, none observed Pain: denies I & O: Pt eating and drinking without issue. ADLs: independent Visits: None this shift due to covid protocol Vitals: WNL Plan of Care - Jerica Whitney - 03/21/2020 8:14 PM CDT Problem: General Rehab Plan of Care Goal: Therapeutic Recreation/Music Therapy Goal Description: The patient and/or their entry level account representative will achieve their patient- specific goals related to the plan of care. The patient-specific goals include: Patient will attend and participate in scheduled Therapeutic Recreation and Music Therapy group interventions. The groups will focus on assisting the patient to receive knowledge to balance impulse control, increase understanding of triggers and emotions, and increase understanding how to express/manage in appropriate and non-violent ways. The two therapeutic groups will assist the patient to developalternatives from aggressive behaviors to appropriate behaviors. 1. Patient will identify personal risk factors as well as signs and symptoms connected to aggressiveand violence behaviors. 2. Patient will identify a plan to seek assistance when signs and symptoms begin through communication skills. 3. Patient will enhance sense of safety to decrease feelings of aggression, violence, and vulnerability. 4. Patient will expand expression of feelings, needs, and concerns through nonviolent channels and relaxation techniques. (art, music, and recreation) Attended full hour of music therapy group, with 6 patients present. Intervention focused on improving socialization and mood. Pt checked in as feeling happy, and appeared content throughout group. She actively participated in music family feud, and displayed appropriate frustration tolerance when getting answers wrong. She spent remainder of group doing karaoke with a peer, and got along well with peer. Cooperative and pleasant. 03/21/2020 2014 by Jerica Whitney Outcome: Improving Plan of Care - Petra Whitney - 03/21/2020 3:49 PM CDT Problem: General Rehab Plan of Care Goal: Therapeutic Recreation/Music Therapy Goal Description: The patient and/or their entry level account representative will achieve their patient- specific goals related to the plan of care. The patient-specific goals include: Patient will attend and participate in scheduled Therapeutic Recreation and Music Therapy group interventions. The groups will focus on assisting the patient to receive knowledge to balance impulse control, increase understanding of triggers and emotions, and increase understanding how to express/manage in appropriate and non-violent ways. The two therapeutic groups will assist the patient to developalternatives from aggressive behaviors to appropriate behaviors. 1. Patient will identify personal risk factors as well as signs and symptoms connected to aggressiveand violence behaviors. 2. Patient will identify a plan to seek assistance when signs and symptoms begin through communication skills. 3. Patient will enhance sense of safety to decrease feelings of aggression, violence, and vulnerability. 4. Patient will expand expression of feelings, needs, and concerns through nonviolent channels and relaxation techniques. (art, music, and recreation) Patient attended two therapeutic recreation group sessions today. Therapeutic intervention addressedimprovement in stress management, and social skills. Patient played games using [employer] system, played board games of choice and had opportunity to express creatively through fuse beads. Patient shared current stress level as a little more than I'd like, and identified those things that cause stress my mom, school and old room mates. Patient identified the following as ways they can manage stress go on bike rides and getting away from old room mates. Additional interventions addressed, included: Increase in attention and concentration Decrease social isolation, increase in peer relationships/friendships Improve coping strategies Improve communication and socialization abilities Increase ability to manage stressors, anxiety and boredom Group size: 7 Group duration: 2 sessions/ 55 minutes each session Outcome: Improving Plan of Care - Mahi Jamison - 03/21/2020 3:16 PM CDT Attended full hour of music therapy group with 7 patients present. Interventions focused on positivesocial interactions, self-expression and improving mood. Pt participated by engaging in Throwback Theme Song activity and later playing the piano. Pt presented with a bright affect and was pleasant and engaged throughout the session. Good focus while playing the piano. Appropriate and social with peers. Pt checked in as feeling, happy and was calm and cooperative. Plan of Care - Jerica Whitney - 03/20/2020 8:11 PM CDT Problem: General Rehab Plan of Care Goal: Therapeutic Recreation/Music Therapy Goal Description: The patient and/or their entry level account representative will achieve their patient- specific goals related to the plan of care. The patient-specific goals include: Patient will attend and participate in scheduled Therapeutic Recreation and Music Therapy group interventions. The groups will focus on assisting the patient to receive knowledge to balance impulse control, increase understanding of triggers and emotions, and increase understanding how to express/manage in appropriate and non-violent ways. The two therapeutic groups will assist the patient to developalternatives from aggressive behaviors to appropriate behaviors. 1. Patient will identify personal risk factors as well as signs and symptoms connected to aggressiveand violence behaviors. 2. Patient will identify a plan to seek assistance when signs and symptoms begin through communication skills. 3. Patient will enhance sense of safety to decrease feelings of aggression, violence, and vulnerability. 4. Patient will expand expression of feelings, needs, and concerns through nonviolent channels and relaxation techniques. (art, music, and recreation) Attended full hour of music therapy group, with 5-6 patients present. Intervention focused on improving feeling identification and mood. Pt participated in 3 song showdown, and was rigid in thinking of songs to fit the category, but participated fully. She appeared unaware when peers made comments towards her song selections. She spent remainder of group playing the piano. She became irritable witha peer when peer asked for the piano, but was able to remain calm. Needed redirection for swearing at times, but was redirectable. 03/20/2020 2010 by Jerica Whitney Outcome: No Change Plan of Care - Janis Agudelo, OT - 03/20/2020 3:53 PM CDT Problem: General Rehab Plan of Care Goal: Occupational Therapy Goals Description: The patient and/or their entry level account representative will achieve their patient- specific goals related to the plan of care. The patient-specific goals include: Interventions to focus on decreasing symptoms of depression, decreasing self- injurious behaviors, elimination of suicidal ideation and elevation of mood. Additional interventions to focus on identifying and managing feelings, stress management, exercise, and healthy coping skills. Pt actively participated in a structured occupational therapy group of 6 patients total with a focuson discussion of feelings and goal focused thinking through artistic expression x40 min (no charge) d/t meeting with provider. Pt was able to ask for assistance as needed, and independently initiate task of creating 2 hands representing things to let go and things to hold onto. Pt engaged in group conversation well and demonstrated good attention and care to artistic process. Required mod-max A from therapist to come up with items to write on hands struggling with the processing for task. Pt appeared comfortable interacting with peers. Bright affect. Outcome: No Change Plan of Care - Jerica Whitney - 03/20/2020 1:16 PM CDT Problem: General Rehab Plan of Care Goal: Therapeutic Recreation/Music Therapy Goal Description: The patient and/or their entry level account representative will achieve their patient- specific goals related to the plan of care. The patient-specific goals include: Patient will attend and participate in scheduled Therapeutic Recreation and Music Therapy group interventions. The groups will focus on assisting the patient to receive knowledge to balance impulse control, increase understanding of triggers and emotions, and increase understanding how to express/manage in appropriate and non-violent ways. The two therapeutic groups will assist the patient to developalternatives from aggressive behaviors to appropriate behaviors. 1. Patient will identify personal risk factors as well as signs and symptoms connected to aggressiveand violence behaviors. 2. Patient will identify a plan to seek assistance when signs and symptoms begin through communication skills. 3. Patient will enhance sense of safety to decrease feelings of aggression, violence, and vulnerability. 4. Patient will expand expression of feelings, needs, and concerns through nonviolent channels and relaxation techniques. (art, music, and recreation) Attended full hour of music therapy group, with 6 patients present. Intervention focused on improving insight and mood. Pt checked in as feeling happy. She had a bright affect throughout group, but did need redirection for swearing at times. She participated in song discussion about disappointment, but was easily swayed off topic by peers. She was able to be refocused. She appeared happy when learning guitar for remainder of group. Outcome: No Change Plan of Care - Mahi Gandhi RN - 03/20/2020 12:50 PM CDT 1. What PRN did patient receive? Tylenol 325 mg 2. What was the patient doing that led to the PRN medication? Headache 10/26 3. Did they require R/S? no 4. Side effects to PRN medication? none 5. After 1 Hour, patient appeared: Pt in group, participating. Effective Plan of Care - Mahi Gandhi RN - 03/20/2020 10:49 AM CDT 48 Hour Assessment: Pt attending and participating in unit groups/activities. SI/Self harm: denies HI: denies AVH: denies Sleep: Pt states she feels sleepy during the day if she takes melatonin the night before, but she does not sleep if she does not take melatonin. Provider informed of this and is aware. PRN: None this shift Medication AE: None stated, none observed Pain: denies I & O: Pt eating and drinking without issue LBM: yesterday ADLs: independent Visits: None this shift due to covid protocol Vitals: Pt's systolic BP trends high. Pt denies nausea, shaking, blurred vision, and dizziness. Pt denies physical discomfort. Plan of Care - DevonteJerica - 03/19/2020 8:02 PM CDT Problem: General Rehab Plan of Care Goal: Therapeutic Recreation/Music Therapy Goal Description: The patient and/or their entry level account representative will achieve their patient- specific goals related to the plan of care. The patient-specific goals include: Patient will attend and participate in scheduled Therapeutic Recreation and Music Therapy group interventions. The groups will focus on assisting the patient to receive knowledge to balance impulse control, increase understanding of triggers and emotions, and increase understanding how to express/manage in appropriate and non-violent ways. The two therapeutic groups will assist the patient to developalternatives from aggressive behaviors to appropriate behaviors. 1. Patient will identify personal risk factors as well as signs and symptoms connected to aggressiveand violence behaviors. 2. Patient will identify a plan to seek assistance when signs and symptoms begin through communication skills. 3. Patient will enhance sense of safety to decrease feelings of aggression, violence, and vulnerability. 4. Patient will expand expression of feelings, needs, and concerns through nonviolent channels and relaxation techniques. (art, music, and recreation) Attended full hour of music therapy group, with 6 patients present. Intervention focused on improving frustration tolerance, socialization, and mood. Pt checked in as feeling happy. She had a bright affect throughout group, and actively participated in [place] or Not game. She appeared to miss social cues at times, and had moments of miscommunication with her team. She appeared unaware when peers appeared to be trying to mock pt. She spent remainder of group learning the guitar, and was easily distracted. Cooperative and pleasant. Outcome: No Change Plan of Care - Janis Agudelo, OT - 03/19/2020 3:08 PM CDT Problem: General Rehab Plan of Care Goal: Occupational Therapy Goals Description: The patient and/or their entry level account representative will achieve their patient- specific goals related to the plan of care. The patient-specific goals include: Interventions to focus on decreasing symptoms of depression, decreasing self- injurious behaviors, elimination of suicidal ideation and elevation of mood. Additional interventions to focus on identifying and managing feelings, stress management, exercise, and healthy coping skills. Pt actively participated in a structured occupational therapy group of 4-5 patients total with a focus on coping through task x45 min. 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 Pt was able to askfor assistance as needed, and independently initiate self-selected task-making window clings. Pt demonstrated adequate focus, planning, and problem solving. Mod A from therapist throughout to help withfine details of task as pt was becoming frustrated. Pt appeared comfortable interacting with peers. Bright affect. Outcome: No Change Plan of Care - Kandi Muro RN - 03/19/2020 3:04 PM CDT Pt presents with full-range affect, brightens on approach. Pt states her mood is good, denies feeling anxious or depressed, and denies thoughts of wanting to or harm self. Pt is attending and participating in groups appropriately. Pt likes having a copy of the schedule so she knows what to expect, though does become irritated when the schedule is modified. No other concerns at this time. Nursing will continue to monitor and assess. Plan of Care - Ivonne Clifford OT - 03/18/2020 4:01 PM CDT Problem: General Rehab Plan of Care Goal: Occupational Therapy Goals Description: The patient and/or their entry level account representative will achieve their patient- specific goals related to the plan of care. The patient-specific goals include: Interventions to focus on decreasing symptoms of depression, decreasing self- injurious behaviors, elimination of suicidal ideation and elevation of mood. Additional interventions to focus on identifying and managing feelings, stress management, exercise, and healthy coping skills. Pt actively participated in a structured occupational therapy group of 7 patients total x50 minutes with a focus on discussing coping skills facilitated by a group game. Pt reflected on identifying andexpressing emotions, as well as effective and ineffective methods for coping with specific emotions (stress, anger, sadness, etc.). Pt identified biking and going for a walk as effective coping skills. Pt actively participated in a structured occupational therapy group of 6 patients total x50 minutes with a focus on social and leisure engagement via a group game. Pt was able to follow multi-step directions and was attentive to task parameters throughout. Pt demonstrated strategic planning and good task organization. Focused and engaged throughout full duration of group. Politely assisted ad copy writer in managing task materials throughout. She demonstrated difficulty reading social cues, and presented assomewhat concrete. Pleasant and polite in interactions. Positive group participant. Plan of Care - Ashley Mcghee RN - 03/18/2020 3:59 PM CDT 48 hour nursing assessment: Pt reported that she slept comfortably through the night. Pt was woken up at 0900. Complained of a headache, Tylenol 325 mg was administered. Appetite is excellent, consumed 100% of breakfast and lunch. Described her mood as being happy and hopeful that she doesn't have a bad day. Denies SI,SIB,HI and hallucinations. Stated, definitely not today, I'm gonna think about happiness today. Rated her anxiety and depression as 0/10, stated Nope, I don't have any depression or anxiety. Pt's goal is not to get bored today. Indicated that she will go to groups so she won't get bored. Will continue to monitor pt's status. Plan of Care - Janis Agudelo OT - 03/18/2020 1:20 PM CDT Problem: General Rehab Plan of Care Goal: Occupational Therapy Goals Description: The patient and/or their entry level account representative will achieve their patient- specific goals related to the plan of care. The patient-specific goals include: Interventions to focus on decreasing symptoms of depression, decreasing self- injurious behaviors, elimination of suicidal ideation and elevation of mood. Additional interventions to focus on identifying and managing feelings, stress management, exercise, and healthy coping skills. Pt actively participated in an 11:00 structured occupational therapy group of 6 patients total with a focus on coping through task x50 min. During check-in, pt reported feeling happy and reports a coping tool she uses is going on a bike ride. Pt was able to ask for assistance as needed, and independently initiate self-selected task-painting a canvas. Pt demonstrated good focus, planning, and problem solving. Pt appeared comfortable interacting with peers. Most positive group member. Sought out help constantly across task but was motivated to complete it and appeared pleased with her final product. Bright affect. Outcome: No Change Plan of Care - Jerson Khadijah, [facility] - 03/18/2020 10:12 AM CDT BEHAVIORAL TEAM DISCUSSION Participants: Dr. Peralta, RN, OT, and Khadijah BOSWELL. Progress: Continuing to assess. Anticipated length of stay: Pending on symptom and medication stabilization. Aftercare planning. Continued Stay Criteria/Rationale: Symptom and medication stabilization. Aftercare planning. Medical/Physical: None reported. Precautions: Behavioral Orders Procedures ??? Assault precautions ??? Family Assessment ??? Routine Programming As clinically indicated ??? Self Injury Precaution ??? Status 15 Every 15 minutes. ??? Suicide precautions Patients on Suicide Precautions should have a Combination Diet ordered that includes a Diet selection(s) AND a Behavioral Tray selection for Safe Tray - with utensils, or Safe Tray - NO utensils Plan: Symptom and medication stabilization. Aftercare planning. Rationale for change in precautions or plan: None reported. Associated attestation - Bryan Peralta MD - 03/19/2020 4:01 PM CDT Agree with plan Provider Notification - Jeimy Cronin RN - 03/17/2020 11:24 PM CDT Mahi had good shift overall. She was affected by the anxiety and noise by peers on the unit. Mid shift she asked for something for anxiety, was very warm and felt as though she would throw up. She was given a basin in case she did, a cool washcloth applied to her forehead and neck and given Hydroxyzine 25mg. In the next few minutes, Mahi complained about having a stomach ache rated at a 10. Tylenol 325mg was given to her and her pain subsided in about 15 minutes. She denied having SI/SIB. She ate well at dinner and denies otherwise denied other physical discomfort. 1. What PRN did patient receive? Hydroxyzine 2. What was the patient doing that led to the PRN medication? Anxiety 3. Did they require R/S? NO 4. Side effects to PRN medication? None 5. After 1 Hour, patient appeared: Calm 1. What PRN did patient receive? Tylenol 2. What was the patient doing that led to the PRN medication? Pain-abdominal 3. Did they require R/S? NO 4. Side effects to PRN medication? None 5. After 1 Hour, patient appeared: Pain free 03/17/201944 Pain/Comfort/Sleep Pain Body Location abdomen Pain Management Interventions medication (see MAR) Behavioral Health Hallucinations denies / not responding to hallucinations Thinking intact Orientation person: oriented;place: oriented;date: oriented;time: oriented Memory baseline memory Insight poor Judgement impaired Eye Contact at examiner Affect full range affect Mood mood is calm ADL Assessment (WDL) WDL 1. Wish to be (Recent) No 2. Non-Specific Active Suicidal Thoughts (Recent) No Self Injury other (see comment) (denies) Elopement (WDL) WDL Activity (WDL) WDL Speech (WDL) WDL Medication Sensitivity (WDL) WDL Psychomotor Gait (WDL) WDL Overt Agression (WDL) WDL Activities of Daily Living Hygiene/Grooming independent Oral Hygiene prompts Dress independent Room Organization independent Plan of Care - Jerica Whitney - 03/17/2020 2:30 PM CDT Problem: General Rehab Plan of Care Goal: Therapeutic Recreation/Music Therapy Goal Description: The patient and/or their entry level account representative will achieve their patient- specific goals related to the plan of care. The patient-specific goals include: Patient will attend and participate in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 HOURS PRN, moderate pain, Starting 03/22 at 2113 lidocaine (LMX4) cream Topical, ONCE PRN, other, mild pain; for blood draw anticipated pain., Starting Wed03/15/20 at 2005, For 1 dose, Apply to affected area for pain control 30 minutes before blood collection Max: 2.5 gm (1/2 of a 5 gm tube) OLANZapine (zyPREXA) injection 5 mg(Linked Group 2) 5 mg, Intramuscular, EVERY 6 HOURS PRN, agitation, severe. Not to exceed 20 mg in 24 hours., Starting Wed03/15/20 at 2005, Dissolve the contents of the 10 mg vial using 2.1 mL of Sterile Water for Injec tion to provide a solution containing 5 mg/mL of olanzapine. Withdraw the ordered dose from vial. Use immediately (within 1 hour) after reconstitution. Discard any unused portion. OLANZapine zydis (zyPREXA) ODT tab 5 mg(Linked Group 2) 5 mg, Oral, EVERY 6 HOURS PRN, agitation , severe. Not to exceed 20 mg in 24 hours., Starting Wed03/15/20 at 2005, Combined IM and PO doses may significantly increase the risk of orthostatic hypotension at 30 mg per day or higher. With dry townsend ds, peel back foil backing and gently remove tablet. Do not push oral disintegrating tablet through foil backing. Administer immediately on tongue and oral disint egrating tablet dissolves in seconds, th en swallow with saliva. Liquid not required. Linked Groups Order Group 1: diphenhydrAMINE (BENADRYL) capsule 25 mgJump to med 25 mg, Oral, EVERY 6 HOURS PRN, other, E xtrapyramidal Side Effects, Starting Wed03/15/20 at 2005 Or diphenhydrAMINE (BENADRYL) injection 25 mgJump to med 25 mg, Intramuscular, EVERY 6 HOURS PRN, other, Extrapyramidal Side Effects, Starting Wed03/15/20 at 2005
For ordered IV doses 1-50 mg, give IV Push undiluted. Give each 25mg over a minimum of 1 minute. Extend in non-emergency
Group 2: OLANZapine zydis (zyPREXA) ODT tab 5 mgJump to med 5 mg, Oral, EVERY 6 HOURS PRN, agitation , severe. Not to exceed 20 mg in 24 hours., Starting Wed03/15/20 at 2005
Combined IM and PO doses may significantly increase the risk of orthostatic hypo tension at 30 mg per day or higher.&nbsp ;With dry hands, peel back foil backing and gently remove tablet. Do not push oral disintegrating tablet through foil backing. Administer immediately on tongu e and oral disintegrating tablet dissolv es in seconds, then swallow with saliva. Liquid not required.
Or OLANZapine (zyPREXA) injection 5 mgJump to med 5 mg, Intramuscular, EVERY 6 HOURS PRN, agitation, severe. Not to exceed 20 mg in 24 hours., Starting Wed03/15/20 at 2005
Dissolve the contents of the 10 mg vial using 2.1 mL of Sterile Water f or Injection to provide a solution conta ining 5 mg/mL of olanzapine. Withdraw the ordered dose from vial. Use immediately (within 1 hour) after reconstitution. Discard any unused portion.
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
--- OUTSIDE RECORDS SUMMARY | 2022-04-23 23:42 | XMS_ITS | Encounter Summary ---
:2000 Author Organization [facility] Address [address] [place] [address]. [place] [address] Care Team Providers Name Role Phone Queta Fritz MD Primary Care Provider [phone] Queta Fritz MD Unavailable [phone] Tc Jama MD Unavailable Reason for Visit Reason Comments RECHECK f/u cyst Encounter Details Date Type Department Care Team Description 02/21/2020 Office Visit [facility] Tc Jama Pil onidal cyst Pediatric (Primary Dx) [facility] [address] [place], [place] [id number] [place] [address] [facility] [address] [phone] (Wo rk) [id number] [phone] Social History Tobacco Use Types Packs/Day Years [...] do you attend [facility] or Never 2018 [employer] services? 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 documented as of this encounter Last Filed Vital Signs Vital Sign Reading Time Taken Comments Blood Pressure 137/69 02/21/2020 1:28 PM CDT Pulse 105 02/21/2020 1:28 PM CDT Temperature - - Respiratory Rate - - Oxygen Saturation - - Inhaled Oxygen Concentration - - Weight 86.5 kg (190 lb 11.2 oz) 02/21/2020 1:28 PM CDT Height 174.8 cm (5' 8.82) 02/21/2020 1:28 PM CDT Body Mass Index 28.31 02/21/2020 1:28 PM CDT Body Mass Index Percentile 92.37 % 02/21/2020 1:28 PM CD T Growth Chart: [facility] (Girls, 2-20 Years) documented in this encounter Progress Notes Tc Jama MD - 02/21/2020 1:30 PM CDT Mahi is doing well. We examined her pilonidal wound. It is healing. There are a couple of open shallow areas from which I removed hair. I removed two stitches and treated granulation tissue with silver nitrate. We planned follow up in two weeks, with continued technicare washes and hair removal from the wound. Shonna Jama documented in this encounter Nursing Notes Wanda Kwong CMA - 02/21/2020 1:30 PM CDT [facility][id number] Chief Complaint Patient presents with ??? RECHECK f/u cyst Initial BP 137/69 (BP Location: Right arm, Patient Position: Sitting, Cuff Size: Adult Large) Pulse 105 Ht 5' 8.82 (174.8 cm) Wt 190 lb 11.2 oz (86.5 kg) BMI 28.31 kg/m?? Estimated body mass index is 28.31 kg/m?? as calculated from the following: Height as of this encounter: 5' 8.82 (174.8 cm). Weight as of this encounter: 190 lb 11.2 oz (86.5 kg). 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
--- OUTSIDE RECORDS SUMMARY | 2022-04-23 23:42 | XMS_ITS | Encounter Summary ---
:2000 Author Organization [place] Address [address] [place] [address] Care Team Providers Name Role Phone Queta Fritz MD Primary Care Provider [phone] Queta Fritz MD Unavailable [phone] Tc Jama MD Unavailable Reason for Visit Reason Comments Suicidal Encounter Details Date Type Department Care Team Description 03/15/2020 [facility] Satnam Willingham MD [facility] [address] [place] [address] Suicidal ideation; [facility] Emergency Dep t Christiano Hayes MD [facility] [address] [facility] [address] [place] [address] Social stressor at home [address] Aldo Dudley MD [facility] [address] [facility] [address] [place] [address] [place] [address] Social History Tobacco Use Types Packs/Day Years [...] or relatives? How often do you attend baptist or Never 2018 restorationism services? 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 documented as of this encounter Last Filed Vital Signs Vital Sign Reading Time Taken Comments Blood Pressure 138/80 03/15/2020 1:24 PM CDT Pulse 87 03/15/2020 1:24 PM CDT Temperature 37.2 ??C (98.9 ??F) 03/15/2020 1:22 AM CDT Respiratory Rate 18 03/15/2020 1:24 PM CDT Oxygen Saturation 97% 03/15/2020 1:24 PM CDT Inhaled Oxygen Concentration - - Weight - - Height - - Body Mass Index - - documented in this encounter Medications at Time of Discharge Medication Sig Dispensed Refills Start Date End Date amoxicillin-clavulanate Take 1 tablet by 2 tablet 0 201903/29/2020 (AUGMENTIN) 875-125 MG mouth every 12 tabletIndications: bite hours for 2 doses wound prophylaxis Last dose Wednesday morning, 04/01/2020 levonorgestrel-ethinyl Take 1 tablet by 84 tablet 3 017 06/26/2020 estradiol (SEASONALE) mouth daily 0.15-0.03 MG per tabletIndications: Encounter for surveillance of contraceptive pills metFORMIN (GLUCOPHAGE) Take 500 mg by 0 03/28/2020 500 MG tablet mouth 2 times daily For appetite suppression/ seraquel QUEtiapine (SEROQUEL) 300 Take 1 tablet (300 30 tablet 0 05/26/2020 MG tabletIndications: mg) by mouth At Learning disability, Bedtime Anxiety, Aggression Vitamin D, Take 1 capsule by 90 capsule 3 01/17/2020 021 Cholecalciferol, 25 MCG mouth daily (1000 UT) CAPSIndications: Dietary counseling and surveillance documented as of this encounter ED Notes Rosario Sanchez RN - 03/15/2020 6:46 PM CDT Called [facility] to let them know the pt had just left in the ambulance. Rosario Sanchez RN - 03/15/2020 6:40 PM CDT Report given to EMS, all belongings sent with pt from locker. Rosario Sanchez RN - 03/15/2020 5:10 PM CDT Ordered meal tray for pt. Rosario Sanchez RN - 03/15/2020 3:34 PM CDT Pt's mother arrived with a special soap cleanser and the pt's control pills to go with her to the receiving hospital. Pt's mother is here at her bedside. Johanna Hernadez RN - 03/15/2020 2:14 PM CDT Pt placement found on [facility] at [facility]. Mother called and updated. Johanna Hernadez RN - 03/15/2020 11:30 AM CDT Lunch tray provided. Johanna Hernadez RN - 03/15/2020 9:35 AM CDT Spoke with intake who said there are some beds available in a [facility] unit or [facility]. Spoke with mother, Eleanor. Mother is not comfortable with pt going to a MICD unit. Also states pt does not want to go back to [facility]. Intake updated. Waiting on another bed to open up at a differently facility. Johanna Hernadez RN - 03/15/2020 7:00 AM CDT Breakfast tray provided. Corby Crockett RN - 03/15/2020 6:00 AM CDT Pt talking to DEC. Calm and cooperative. Patricia James RN - 03/15/2020 2:40 AM CDT Pt is alert and cooperative. She is informed that urine specimen is needed. She asked for water, soda pop and xochilt crackers which were provided. Benson Rawls RN - 03/15/2020 1:55 AM CDT Bed: ED05 Expected date: Expected time: Means of arrival: Comments: Rm 1 Patricia James RN - 03/15/2020 1:55 AM CDT Pt walked to room 5 with a steady gait. She is settled for sleep with blankets and is currently watching TV. Celine Gonzales RN - 03/15/2020 1:20 AM CDT Pt comes in via EMS from home. Pt had an argument with her brother and threatened to kill herself with a knife. Pt ran away after argument. EMS was called and found pt at local gas station. VSS, ABC's intact. Gardenia Mixon RN - 03/15/2020 1:15 AM CDT Bed: ED01 Expected date: Expected time: Means of arrival: Comments: [id number] 19 YO F Suicidal Satnam Willingham MD - 03/15/2020 1:15 AM CDT History Chief Complaint: Suicidal HPI Mahi Faye is a 19 year old female with a history of suicidal ideation and a learning disability who presents with suicidal ideation. The patient lives with her mother and got in an argument with her tonight, after which she threatened to break glass and kill herself with it. She left her house on her bike and police found her at a gas station and brought her in to the emergency department. In the past the patient has banged her head against the wall and cut herself for self harm, but she did not do either tonight. The patient would like to talk to mental health and states her mother said she does not want her to come home tonight. 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 PCP: Queta Fritz Marital Status: Single Review of Systems Psychiatric/Behavioral: Positive for suicidal ideas. Negative for self-injury. All other systems reviewed and are negative. Physical Exam Patient Vitals for the past 24 hrs: BP Temp Temp src Pulse Resp SpO2 03/15/20 0122 140/118 98.9 ??F (37.2 ??C) Oral 97 18 99 % Physical Exam Nursing note and vitals reviewed. Constitutional: Cooperative. Sitting up calmly in bed. HENT: Mouth/Throat: Mucous membranes are normal. Cardiovascular: Normal rate, regular rhythm and normal heart sounds. No murmur. Pulmonary/Chest: Effort normal and breath sounds normal. No respiratory distress. No wheezes. No rales. Abdominal: Soft. Normal appearance and bowel sounds are normal. No distension. There is no tenderness. Neurological: Alert. oriented x4 Skin: Skin is warm and dry. No rash noted. Psychiatric: Positive suicidal ideations. Denies hallucinations. Emergency Department Course Laboratory: HCG qualitative urine: pending Drug abuse screen 77 urine: pending Asymptomatic COVID-19 Virus by PCR: In process Emergency Department Course: 0140 Nursing notes and vitals reviewed. I performed an exam of the patient as documented above. FELIX started at 0145. 0529 I rechecked the patient and discussed the results of her workup thus far. 0645 Bebo from DEC assessed the patient and the patient's mother. He recommends inpatient evaluation as the patient continues to be suicidal and has thoughts of stabbing her mother. Findings and plan explained to the Patient. Patient admitted to inpatient evaluation. Impression & Plan Covid-19 Mahi Faye was [...] Medical Decision Making: Mahi Faye is a 19 year old female with a learning disability who presents with thoughts of suicidal ideation which involves stabbing herself with shards of glass. She also has some homicidal thoughts in the same regard towards her mother. There is a lot of friction in their relationship and we do not have a safe disposition. DEV evaluated the patient and discussed the patient with the mom. With ongoing act of suicidal and homicidal thoughts the patient will be transferred to inpatient mental health for stabilization and further treatment and assessment. She has been calm and cooperative herewith no need for sedation or restraint. No clinical concern for chemical intoxication and she will be transferred in stable condition. Diagnosis: ICD-10-CM 1. Suicidal ideation R45.851 2. Social stressor at home Z65.9 Disposition: Transferred to inpatient mental health evaluation. Kellie Aleksandar 03/15/2020 [facility] EMERGENCY DEPARTMENT Scribe Disclosure: I, Kellie Huertas, am serving as a scribe at 1:40 AM on 03/15/2020 to document services personally performed by Satnam Willingham MD based on my observations and the provider's statements to me. Santam Willingham MD 03/15/20 0728 Christiano Hayes MD - 03/15/2020 1:15 AM CDT [facility] ED Behavioral Health Handoff Note: Brief HPI: This is a 19 year old female signed out to me by Dr. Willingham . See initial ED Provider note for details of the presentation. Patient is medically cleared for admission to a Behavioral Health unit. Pending studies include none. The patient is on a hold. The type of hold is FELIX. The patient has not required medication for agitation. ED Course: There were no significant events while under my care. Patient was started on a 72 hr hold at 1330 03/15/2020 Patient was signed out to the oncoming provider. Dr. Mills awaiting available bed. Impression: ICD-10-CM 1. Suicidal ideation R45.851 Drug abuse screen 77 urine HCG qualitative urine Asymptomatic COVID-19 Virus (Coronavirus) by PCR SARS-CoV-2 COVID-19 Virus (Coronavirus) RT-PCR SARS-CoV-2 COVID-19 Virus (Coronavirus) RT-PCR Nasopharyngeal 2. Social stressor at home Z65.9 Plan: 1. Await Transfer to Mental Health Facility RESULTS: Results for orders placed or performed during the hospital encounter of 03/15/20 (from the past 24 hour(s)) Asymptomatic COVID-19 Virus (Coronavirus) by PCR Status: None Collection Time: 03/15/20 7:35 AM Specimen: Nasopharyngeal Result Value Ref Range COVID-19 Virus PCR to [facility] - Source Nasopharyngeal COVID-19 Virus PCR to [facility] - Result Test received-See reflex to IDDL test SARS CoV2 (COVID-19) Virus RT-PCR SARS-CoV-2 COVID-19 Virus (Coronavirus) RT-PCR Nasopharyngeal Status: None Collection Time: 03/15/20 7:35 AM Specimen: Nasopharyngeal Result Value Ref Range SARS-CoV-2 Virus Specimen Source Nasopharyngeal SARS-CoV-2 PCR Result NEGATIVE SARS-CoV-2 PCR Comment Testing was performed using the Simplexa COVID-19 Direct Assay on the [employer] MDX instrument. Additional information about this Emergency Use Authorization (EUA) assay can be found via the Lab Guide. Drug abuse screen 77 urine Status: None Collection Time: 03/15/20 7:37 AM Result Value Ref Range Amphetamine Qual Urine Negative NEG^Negative Barbiturates Qual Urine Negative NEG^Negative Benzodiazepine Qual Urine Negative NEG^Negative Cannabinoids Qual Urine Negative NEG^Negative Cocaine Qual Urine Negative NEG^Negative Opiates Qualitative Urine Negative NEG^Negative PCP Qual Urine Negative NEG^Negative HCG qualitative urine Status: None Collection Time: 03/15/20 7:37 AM Result Value Ref Range HCG Qual Urine Negative NEG^Negative MD Freddy Thomson Scott, MD 03/15/20 1520 documented in this encounter Miscellaneous Notes Pharmacy-Admission Medication History - Judi Engel, [facility] - 03/15/2020 10:43 AM CDT Admission medication history interview status for this patient is complete. See [facility] admission navigator for allergy information, prior to admission medications and immunization status. Medication history interview source(s): Mother Eleanor by phone Medication history resources (including written lists, pill bottles, clinic record): Critical access hospital Primary pharmacy:[facility] Changes made to [facility] medication list: Added: Deleted: Calcium/Vit D, Milk of Magnesia, Oxycodone Changed: Seroquel XR dose 500 mg to 400 mg Actions taken by pharmacist (provider contacted, etc):None Additional medication history information:None Medication reconciliation/reorder completed by provider prior to medication history? No For patients on insulin therapy: No Prior to Admission medications Medication Sig Last Dose Taking? Auth Provider levonorgestrel-ethinyl estradiol (SEASONALE) 0.15-0.03 MG per tablet Take 1 tablet by mouth daily 03/14/2020 at Unknown time Yes Queta Fritz MD METFORMIN HCL PO Take 500 mg by mouth 2 times daily For appetite suppression/ seraquel 03/14/2020 at Unknown time Yes Reported, Patient QUEtiapine ER (SEROQUEL XR) 400 MG 24 hr tablet Take 400 mg by mouth At Bedtime 03/14/2020 at Unknowntime Yes Unknown, Entered By History Vitamin D, Cholecalciferol, 25 MCG (1000 UT) CAPS Take 1 capsule by mouth daily 03/14/2020 at Unknowntime Yes Queta Fritz MD documented in this encounter Plan of Treatment Not on filedocumented as of this encounter Procedures Procedure Name Priority Date/Time Associated Comments Diagnosis HCG QUALITATIVE URINE STAT 03/15/2020 7:37 AM Suicidal idea tion Results for this CDT procedure are i n the results section. DRUG ABUSE SCREEN 77 STAT 03/15/2020 7:37 AM Suicidal ideat ion Results for this URINE (FL, RH, SH) CDT procedure are in the results section. SARS-COV-2 (COVID-19) Routine 03/15/2020 7:35 AM Suicidal idea tion Results for this VIRUS RT-PCR CDT procedure are i n the results section. COVID-19 VIRUS STAT 03/15/2020 7:35 AM Suicidal ideation Re sults for this (CORONAVIRUS) BY PCR CDT procedu re are in the results section. documented in this encounter Results HCG qualitative urine (03/15/2020 7:37 AM CDT) P athologist Signature HCG Qual Urine Negative NEG^Negati 03/15/2020 [facility] 7:57 AM CDT [facility] Comment: This test is for screening purposes. ??R esults should be interpreted along with the clinical picture. ??Confirmation te sting is available if warranted by ordering [id number], HCG Quantitative Pregna ncy. Specimen Anatomical Collection Method Collection Time Receive d Time (Source) Location / / Volume Laterality Urine specimen URINE SPECIMEN 03/15/2020 7:37 AM 03/15 7:46 (specimen) OBTAINED BY CLEAN CDT AM CDT CATCH PROCEDURE / Unknown Satnam Willingham MD LAB - URINE ORDERABLES Performing Organization Address City/State/ZIP Code Phon e Number M [facility] [address] [place], [place] [address] [facility] [address] [place], [place] [address] [facility] [phone] Drug abuse screen 77 urine (03/15/2020 7:37 AM CDT) [facility] Method Time Signature Amphetamine Qual Negative NEG^Negati 03/15/2020 [place] Urine ve 8:10 AM [facility] Comment: Cutoff for a negative amphetami ne is 500 ng/mL or less. Barbiturates Qual Negative NEG^Negative 03/15/2020 8:09 AM [facility] Urine [facility] Comment: Cutoff for a negative barbitura te is 200 ng/mL or less. Benzodiazepine Qual Negative NEG^Negative 03/15/2020 8:09 A M [facility] Urine [facility] Comment: Cutoff for a negative benzodiaz epine is 200 ng/mL or less. Cannabinoids Qual Negative NEG^Negative 03/15/2020 8:10 AM [facility] Comment: Cutoff for a negative cannabino id is 50 ng/mL or less. Cocaine Qual Urine Negative NEG^Negative 03/15/2020 8:10 AM [facility] Comment: Cutoff for a negative cocaine i s 300 ng/mL or less. Opiates Qualitative Negative NEG^Negative 03/15/2020 8:09 A M [facility] Comment: Cutoff for a negative opiate is 300 ng/mL or less. PCP Qual Urine Negative NEG^Negative 03/15/2020 8:10 AM [facility] Comment: Cutoff for a negative PCP is 25 ng/mL or less. Specimen Anatomical Collection Method Collection Time Receive d Time (Source) Location / / Volume Laterality Urine specimen URINE SPECIMEN 03/15/2020 7:37 AM 03/15 7:46 (specimen) OBTAINED BY CLEAN CDT AM CDT CATCH PROCEDURE / Unknown Satnam Willingham MD LAB - URINE ORDERABLES Performing Organization Address City/State/ZIP Code Phon e Number M [facility] [address], [place] [address] [facility] [address] [phone] SARS-CoV-2 COVID-19 Virus (Coronavirus) RT-PCR Nasopharyngeal (03/15/2020 7:35 AM CDT) [facility] Method Time Signature SARS-CoV-2 Nasopharyngeal 03/15/2020 INFECTIOUS Virus 1:44 PM CDT DISEASES Specimen DIAGNOSTIC Source LABORATORY, [facility] SARS-CoV-2 NEGATIVE 03/15/2020 INFECTIOUS PCR Result 1:44 PM CDT DISEASES DIAGNOSTIC LABORATORY, [facility] Comment: SARS-CoV2 (COVID-19) RNA not de tected, presumed negative. SARS-CoV-2 PCR Testing was performed using the Simplexa COVID-19 Direct Assay on the [employer] MDX 03/15/2020 1:44 PM INFECTIOUS DISEASES Comment instrument. Additional info rmation about this Emergency Use Authorization (EUA) assay can CDT DIAGNOSTIC be found via the Lab Guide. L ABORATORY, [facility] Comment: This test should be [...] COVID-19. This test was validated by the [facility] Infectious Diseases Diagnostic Laboratory. This laboratory i s certified under the Clinical Laboratory Improvement Amendments of 198 8 (CLIA-88) as qualified to perform high complexity laboratory testing. Specimen (Source) Anatomical Collection Method Collection Time Re ceived Time Location / / Volume Laterality Specimen from 03/15/2020 7:35 03/15/2020 nasopharyngeal AM CDT 8:12 AM CDT structure (specimen) Satnam Willingham MD LAB - MICRO GENERAL ORDERABL ES Performing Organization Address City/State/ZIP Code Phon e Number INFECTIOUS DISEASES DIAGNOSTIC [address] [facility] [address] [address] LABORATORY, [facility] Asymptomatic COVID-19 Virus (Coronavirus) by PCR (03/15/2020 7:35 AM CDT) Component Value Ref Test Analysis [facility]formed At [facility] Range Method Time Signature COVID-19 Nasopharyngeal 03/15/2020 [place] Virus PCR to 8:[address] [facility] Source COVID-19 Test received-See 03/15/2020 INFECTIOUS Virus PCR to reflex to IDDL 10:43 AM DISEASES [facility] - test SARS CoV2 CDT DIAGNOSTIC Result (COVID-19) Virus LABORATORY, RT-PCR [facility] Specimen (Source) Anatomical Collection Method Collection Time Re ceived Time Location / / Volume Laterality Specimen from 03/15/2020 7:35 03/15/2020 nasopharyngeal AM CDT 8:12 AM CDT structure (specimen) Satnam Willingham MD LAB - MICRO GENERAL ORDERABL ES Performing Organization Address City/State/ZIP Code Phon e Number INFECTIOUS DISEASES [address] [place] [address] DIAGNOSTIC LABORATORY, [facility] [address] [phone] documented in this encounter Visit Diagnoses Diagnosis Suicidal ideation Social stressor at home Unspecified psychosocial circumstance documented in this encounter Administered Medications Inactive Administered Medications - up to 3 most recent administrations Medication Order MAR Action Action Date Dose Rate Site acetaminophen (TYLENOL) tablet 650 Given 03/15/2020 1:32 PM CDT 650 mg mg 650 mg, Oral, EVERY 6 HOURS PRN, mild pain, fever, Starting on Wed03/15/20 at 1326, Maximum acetaminophen dose from all sources = 75 mg/kg/day not to exceed 4 grams/day. diphenhydrAMINE (BENADRYL) capsule 25-50 mg Given 03/15/2020 8:08 AM CDT 25 mg 25-50 mg, Oral, ONCE, On Wed03/15/20 at 0750, For 1 dose documented in this encounter Active and Recently Administered Medications Times are shown in CDT. Scheduled Medication Order 03/13/2020 03/14/2020 03/15/2020 diphenhydrAMINE (BENADRYL) capsule 25-50 mg (COMPLETED) 0808 (Given - Provider: Johanna Hernadez RN) 25-50 mg, Oral, ONCE, Wed03/15/20 at 0750, For 1 dose PRN Medication Order 03/13/2020 03/14/2020 03/15/2020 acetaminophen (TYLENOL) tablet 650 mg 1332 (Given - Provider: Johanna Hernadez RN) 650 mg, Oral, EVERY 6 HOURS PRN, mild pa in, fever, Starting 03/15/20 at 1326, Maximum acetaminophen dose from all sources = 75 mg/kg/day not to exceed 4 grams/day. documented in this encounter Additional Health Concerns Assessment Noted Time PHQ-9 Depression Total Score: 7 11/13/2019 11:26 AM CD T documented as of this encounter Care Teams Prototype Machinist Relationship Specialty Start Date End Date Queta Fritz MD PCP - General Pediatrics 12/19/15 05/27/20 [address] [place] [address] [phone] Queta Fritz MD Assigned PCP 03/04/14 04/12/21 [address] [place] [address] [phone] Tc Jama MD MD Pediatric Surgery 02/14/[address] [place] [address] [phone] documented as of this encounter
--- OUTSIDE RECORDS SUMMARY | 2022-04-23 23:42 | XMS_ITS | Encounter Summary ---
:2002 Author Organization [place] Address [address] [place] [address] Care Team Providers Name Role Phone Queta Fritz MD Primary Care Provider [phone] Queta Fritz MD Unavailable [phone] Tc Jama MD Unavailable Encounter Details Date Type Department Care Team Description 03/06/2020 Travel Social History Tobacco Use Types Packs/Day [...] do you attend sabianist or Never 2018 pentecostal services? 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
--- OUTSIDE RECORDS SUMMARY | 2022-04-23 23:42 | XMS_ITS | Encounter Summary ---
:2000 Author Organization [place] Address [address] [facility] [place] [address] Care Team Providers Name Role Phone Queta Fritz MD Primary Care Provider [phone] Queta Fritz MD Unavailable [phone] Reason for Visit Auth/Cert Specialty Diagnoses / Procedures Referred By Contact Refer red To Contact Surgery Diagnoses Pilonidal disease Pilonidal disease [L98.8] Ur Periop Procedures HC EXCISION PILONIDAL LESION SIMPLE HC EXCISION PILONIDAL LESION EXTENSIVE HC EXCISION PILONIDAL LESION COMPLICATED EXCISION, PILONIDAL CYST [address] [address] [place] [address] Phone: Fax: Referral ID Status Reason Start Date Expiration Date Visits Requ ested Visits Authorized [id number] 1 1 Encounter Details Date Type Department Care Team Description 01/09/2020 Surgery [facility]ly [facility] Geneva Jama , EXCISION, PILONIDAL PeriOp Services CYST [address] [facility] [address] [place] [address] [address] [place], [place] [address] (Wo rk) Surgery Details Date/Time Status Location OR Service Patient Case Class Case Tr auma Class Type Case? 01/09/20 10:30 Posted UR OR UR OR General Surgery AM 15 Admit Panel 1 Procedure LRB Anes Op Region Wound Class Commen ts EXCISION, PILONIDAL CYST N/A General Buttocks II-Clean Co ntaminated Surgeon Surgeon Role Service Panel Geneva Jama MD Primary General 1 Alva Carver MD Resident - Assisting 1 Special Needs Covid 01-06-20 documented in this encounter Social History Tobacco [...] do you attend rastafari or Never 2018 yazidi services? 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 documented as of this encounter Last Filed Vital Signs Vital Sign Reading Time Taken Comments Blood Pressure 126/80 01/09/2020 11:30 AM CDT Pulse 73 01/09/2020 11:30 AM CDT Temperature 36.7 ??C (98 ??F) 01/09/2020 11:30 AM CDT Respiratory Rate 12 01/09/2020 11:30 AM CDT Oxygen Saturation 99% 01/09/2020 11:30 AM CDT Inhaled Oxygen Concentration - - [...] Jama MD - 01/10/2020 12:30 PM CDT [facility] [place] Discharge Summary Surgery Date of Admission: 01/09/2020 [...] no deformities Time Spent on this Encounter Alva Reis MD, personally saw the patient today and [...] Surgery contact information: Pediatric surgery nurse line: [facility] Appointment scheduling: [place] , [place] , [place] Urgent after hours: 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 Geneva Jama HerTiffani CCLS - 01/09/2020 12:24 PM CDT 01/09/20 1222 Child Life Location Surgery (Pilondial Cyst Excision) Intervention Family Support Family Support Comment Pt's mother (Eleanor) present today. Met with Eleanor in family waiting lounge todiscuss how pt coped in pre-op today. [...] a 19 year old female who speaks Nauruan. 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 No Labs Glucose Lab Results Component [...] Right Hand (Active) Site Assessment WDL 01/09/20 123 Line Status Infusing 01/09/201229 Phlebitis Scale 0-->no symptoms 01/09/201229 Infiltration Scale 0 01/09/20 1230 Extravasation? No 01/09/20 1230 Number of days: 0 Blood Products Not applicable EBL 0 mL Intake/Output Date 01/09/20 0700 - 01/10/20 0659 Shift 2151-6860 9435-8714 7701-0169 24 Hour Total INTAKE P.O. 100 100 I.V. 400 400 Shift Total(mL/kg) 500(6.38) 500(6.38) OUTPUT Shift Total(mL/kg) Weight (kg) 78.4 78.4 78.4 78.4 Drains / Hernandez Open Drain Posterior Buttock (Active) Site Description UTV 01/09/20 1230 Number of days: 0 Time of void PreOp Void Prior to Procedure: 0700(unable to void in pre-op) (01/09/20 0914) PostOp Diapered? No Bladder Scan PO 100 mL (01/09/201229) tolerating sips and crackers Vitals B/P: 102/62 T: 98.2 ??F (36.8 ??C) Temp src: Axillary P: Pulse: 72 (01/09/20 123) R: 14 O2: SpO2: 99 % O2 Device: None (Room air) (01/09/20 123) Family/support present mother Patient belongings Patient transported on bed DC meds/scripts (obs/outpt) Not applicable Inpatient Pain Meds Released? Yes Special needs/considerations Tasks needing completion None Tiffanie Dailey RN [facility] [id number] Asia Chung RN - 01/09/2020 10:19 AM [...] the case. GENEVA JAMA JR, MD MT: NTS Name: BETH MORALES Account: [id number] : 2000 Procedure Date: 01/09/2020 Document: [id number] Plan of Care - Delfina Banks RN - 01/10/2020 12:30 PM CDT Afebrile, VSS. Pain 3/10. PRN Oxycodone x1, Ibuprofen x1, and scheduled Tylenol x1 for pain management. Small amount of drainage at site. Showered and cleansed incision with technicare. New dressing applied. Eating and drinking. Discharged home with mom at 1200. Pharmacy - Discharge Medication Reconciliation and Education - Lola Reji J, [facility] - 01/10/2020 9:12 AM CDT Discharge medication [...] in hand during teach due to phone academic counselor. The following medications were discussed: Current Discharge [...] Marie RN - 01/10/2020 6:48 AM CDT 9560-1918: VSS, ex BP's on the softer end. LS clear on RA. C/o lower back pain 4-710, scheduled tylenol, oxycodone x1 and ibuprofen x1 [...] and reassess. Plan of Care - Delfina Banks RN - 01/09/2020 3:00 PM CDT PACU transfer at 1330. Pain rated 1/10. Scheduled Tylenol and PRN Oxycodone x1 given. Eating and drinking. Small amount of drainage from incision/loop. Dressing changed. Mom at bedside. Continue to monitor. Brief Op Note - Alva Carver MD - 01/09/2020 10:43 AM CDT [facility] [place] Brief Operative Note Pre-operative diagnosis: Pilonidal disease [...] Component Value Ref Test Analysis Performed At [facility] Range Method Time Signature Copath Report Patient Name: BETH MORALES MR#: [id number] Specimen #: [id number] Collected: 01/09/2020 Received: 01/09/2020 Reported: 01/10/2020 16:36 [...] Electronically signed out by: Amanuel Thorpe M.D., [facility] GROSS: A: The specimen is received in [...] like structure. ??No firm areas are present. ??Library Services Coordinator sec tions are submitted in cassette A 1. (Dictated by: Darby [facility] 01/09/2020 01:17 PM) MICROSCOPIC: Microscopic examination was performed. The technical component of this testing was completed at the [facility], with the professional compo nent performed at the [facility], [address] [place] [phone] ([phone]) CPT Codes: A: 59421-BA2 COLLECTION SITE: Client: [facility] Location: UROR (B) Resident MXK1 Specimen (Source) Anatomical Collection Method Collection Time Re ceived Time Location / / Volume Laterality Tissue specimen BUTTOCK STRUCTURE 01/09/2020 10:26 (specimen) / Unknown AM CDT Geneva Jama MD [facility] Performing Organization Address City/State/ZIP Code Phon e Number COPATH documented in this encounter Visit Diagnoses Diagnosis Pilonidal disease - Primary Other specified disorder of skin S/P surgical removal of pilonidal cyst Pilonidal disease Other specified disorder of skin documented in this encounter Admitting Diagnoses Diagnosis Pilonidal disease Other specified disorder of skin documented in this encounter Administered Medications Inactive Administered Medications - up to 3 most recent administrations Medication Order MAR Action Action Date Dose Rate Site acetaminophen (TYLENOL) tablet 650 Given 01/10/2020 7:37 AM CDT 650 mg mg 650 mg, Oral, EVERY 6 HOURS, [...] Given 01/09/2020 7:36 PM CDT 650 mg ibuprofen (ADVIL/MOTRIN) tablet 600 mg Given 01/10/2020 [...] on Wed01/09/20 at 2100, DO NOT CRUSH. sodium chloride (PF) 0.9% PF flush 0.2-5 [...] 01/10/2020 acetaminophen (TYLENOL) tablet 1,000 mg (COMPLETED) 0944 (Given - Provider: Asia Chung, RN) 1,000 mg, Oral, ONCE, Wed01/09/20 at 084 5, For 1 dose, Maximum acetaminophen dose from all sources = 75 mg/kg/day not to exceed 4 gram, Pre-procedure acetaminophen (TYLENOL) tablet 650 mg 14 06 (Given - Provider: Delfina Banks, JAZMYNE)1936 (Given - Provider: Saloni Hoyos RN) 0130 (Given - Provider: Edyta Marie, JAZMYNE)0737 (Given - Provider: Delfina Banks, JAZMYNE)1345 (Canceled Entry - Provider: Orders Generic Provider [...] g, Intravenous, SEE ADMIN INS TRUCTIONS, Starting Wed01/09/20 at 1230, DO NOT GIVE intra-op dose if CrCl less than 10 mL/min (on dialysis). If CrCL10- 50 mL/min, double the time interval betwee n doses., Indications: Perioperative Pharmacoprophylaxis, Intra- procedure cefOXitin (MEFOXIN) 1 g vial to attach t o NS 100 mL bag for ADULTS or 25 mL bag for PEDS (COMPLETED) 1850 (New Bag - Provider: Antonio Hoyos, JAZMYNE)1943 (Stopped - Provider: Saloni Hoyos RN) Routine, 1 g, Intravenous, ONCE, Tue 12/18 [...] fentaNYL (PF) (SUBLIMAZE) injection 100 mcg (COMPLETED) 1049 (Given - Provider: Jhoan Cook, JAZMYNE) 100 mcg, Intravenous, ONCE, e 01/09/20 at 1115, For 1 dose, For ordered IV doses 1-100 mcg give IV Push undiluted over a minimum of 3-5 minutes., PACU haloperidol lactate (HALDOL) injection 2 mg (COMPLETED) 1135 (Given - Provider: Jhoan Cook RN) 2 mg, Intravenous, ONCE, Administer over 1 Minutes, Wed01/09/20 at 1145, For 1 dose, For ordered doses up to 5 mg, drug can be give IV Push undiluted over 1 minute., PACU QUEtiapine ER (SEROquel XR) 24 hr tablet 200 mg 2126 (Given - Provider: Saloni Hoyos RN) 200 mg, Oral, AT BEDTIME, First dose on Wed01/09/20 at 2100, DO NOT CRUSH. QUEtiapine ER (SEROquel XR) 24 hr tablet 300 mg 2125 (Given - Provider: Saloni Hoyos RN) 300 [...] Hoyos RN)2353 (Given - Provider: Edyta Marie, JAZMYNE) 0744 (Given - Provider: Delfina Banks, RN) 3 mL, Intracatheter, EVERY 8 HOURS, Firs t dose on Wed01/09/20 at 1600, And Q1H PRN, to lock peripheral IV dormant line. PRN Medication Order 01/08/2020 01/09/2020 01/10/2020 HYDROmorphone (PF) (DILAUDID) injection 0.4 mg (CANCELED) 1100 (Given - Provider: Jhoan Cook RN)1135 (Given - Provider: Jhoan Cook RN) 0.4 mg (rounded from 0.397 mg = 0.005 mg /kg ? 79.4 kg), Intravenous, EVERY 10 MIN PRN, moderate to severe pain, if Respiratory Rate greater than or equal to 80% of pre-op Respiratory Rate (or greater t townsend 15/min)., Starting e 01/09/20 at 10 38, For 3 doses, May [...] Hoyos RN) 0345 (Given - Provider: Edyta Marie, JAZMYNE - Comment: Given during EPIC downtime)1144 (Given - Provider: Delfina Banks RN) 600 mg, Oral, EVERY 6 HOURS PRN, fever, (temp greater than 38.0C, 100.4F) or mild pain, Starting e 01/09/20 at 1900, Max 3.2 g/day. Use acetaminophen first, if ordered. Recommended for use in infants 6 months and older. morphine (PF) injection 1 mg 1 mg, Intravenous, EVERY 4 HOURS PRN, mo derate to severe pain, Starting e 01/09/20 at 1105, For ordered IV doses 0.1-15 mg give IV Push undiluted over 4-5 minutes. naloxone (NARCAN) injection 0.1-0.4 mg 0.1-0.4 mg, Intravenous, EVERY 2 MIN PRN , opioid reversal, Starting e 01/09/20 at 1339, For respiratory rate LESS than [...] Saloni Hoyos RN)2134 (Given - Provider: Saloni Hoyos, JAZMYNE) 0130 (Given - Provider: Edyta Marie RN)0742 (Given - Provider: Delfina Banks RN) 5 mg, Oral, EVERY 4 HOURS PRN, moderate to severe pain, Starting e 01/09/20 at 1105 sodium chloride (PF) 0.9% [...] documented as of this encounter Care Teams Ad Operations Specialist Relationship Specialty Start Date End Date Queta Fritz MD PCP - General Pediatrics 12/19/15 05/27/20 [address] [address] [place] [address] [id number] Queta Fritz MD Assigned PCP 03/04/14 04/12/21 [address] [place] [address] documented as of this encounter
--- OUTSIDE RECORDS SUMMARY | 2022-04-23 23:42 | XMS_ITS | Encounter Summary ---
:2000 Author Organization [facility] Address [address] [place] [address] Care Team Providers Name Role Phone Queta Fritz MD Primary Care Provider [phone] Queta Fritz MD Unavailable [phone] Reason for Visit Reason Onset Date Comments Refill Request 01/16/2020 calcium carbonate 60 0 mg-vitamin D 400 units (CALCIUM 600 + D) 600-400 MG-UNIT p er tablet Refill Request 01/16/2020 Vitamin D, Cholecalc iferol, 1000 units CAPS Encounter Details Date Type Department Care Team Description 01/16/2020 Refill [facility] Queta Fritzil l Request (calcium Clinic Krystle De Jesus MD carbonate [address] mg-vitamin D 400 units [place], [place] 100 (CALCIUM 600 + D) [id number] [place] [address] 600-400 MG-UNIT per [phone] (Wo rk) tablet ); Refill Request ( Vitamin D, Cholecalciferol , 1000 units CAPS ) Social History Tobacco Use Types Packs/Day Years [...] do you attend islam or Never 2018 sabianism services? 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 documented as of this encounter Miscellaneous Notes Telephone Encounter - Usha Mckeon RN - 01/17/2020 5:23 PM CDT Called mom and left message that the medication was sent to the new pharmacy. Telephone Encounter - Queta Fritz MD - 01/17/2020 4:14 PM CDT Done Telephone Encounter - Edyta Haider - 01/16/2020 3:44 PM CDT NEW PHARMACY Vitamin D, Cholecalciferol, 1000 units CAPS Last Written Prescription Date: Last Fill Quantity: , # refills: Last Office Visit: 01/03/20 Future Office visit: Routing refill request to provider for review/approval because: Medication is reported/historical calcium carbonate 600 mg-vitamin D 400 units (CALCIUM 600 + D) 600-400 MG-UNIT per tablet Last Written Prescription Date: Last Fill Quantity: , # refills: Last Office Visit: 01/03/20 Future Office visit: Routing refill request to provider for review/approval because: Medication is reported/historical documented in this encounter Plan of Treatment Not on filedocumented as of this encounter Visit Diagnoses Diagnosis Dietary counseling and surveillance - Pr imary Dietary surveillance and counseling documented in this encounter Additional Health Concerns Assessment Noted Time PHQ-9 Depression Total Score: 7 11/13/2019 11:26 AM CD T documented as of this encounter Care Teams Ends Down Checker Relationship Specialty Start Date End Date Queta Fritz MD PCP - General Pediatrics 12/19/15 05/27/20 [address] [place] [id number] Queta Fritz MD Assigned PCP 03/04/14 04/12/21 [address] [facility] [address] [place] [address] documented as of this encounter
--- OUTSIDE RECORDS SUMMARY | 2022-04-23 23:42 | XMS_ITS | Encounter Summary ---
:2000 Author Organization [facility] Address [address] [place] [address] Care Team Providers Name Role Phone Queta Fritz MD Primary Care Provider [phone] Queta Fritz MD Unavailable [phone] Encounter Details Date Type Department Care Team Description 01/23/2020 Travel Social History Tobacco Use Types Packs/Day [...] do you attend mandaeism or Never 2018 methodist services? 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
--- OUTSIDE RECORDS SUMMARY | 2022-04-23 23:43 | XMS_ITS | Encounter Summary ---
:2000 Author Organization [facility] Address [address] [facility] [place] [address] Care Team Providers Name Role Phone Queta Fritz MD Primary Care Provider [phone] Queta Fritz MD Unavailable [phone] Reason for Visit Auth/Cert Specialty Diagnoses / Procedures Referred By Contact Refer red To Contact Surgery Diagnoses Pilonidal sinus Pilonidal sinus [L05.92] Ur Periop Procedures C I&D, POST SPINE, LUMB/SACR/LUMBOSAC INCISION AND DRAINAGE, pilonidal sinus [address] [place] [address] Phone: Fax: Referral ID Status Reason Start Date Expiration Date Visits Requ ested Visits Authorized [id number] 1 1 Encounter Details Date Type Department Care Team Description 11/28/2019 Hospital Encounter [facility] Geneva Jama Pil onidal sinus; [facility] PACU MD Satnam Pilonidal sinus [address] [facility] [address] [phone] [place], [place] [phone] [facility] Social History Tobacco Use Types Packs/Day Years [...] do you attend hinduism or Never 2018 islam services? Do you belong to any clubs [...] place to sleep or slept in a [place] [facility] [place] (including now)? Education Answer Date Recorded What is the highest level of school you have completed or 10 th grade 12/07/2018 the highest degree you have received? 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 documented as of this encounter Last Filed Vital Signs Vital Sign Reading Time Taken Comments Blood Pressure 111/74 11/28/2019 9:45 AM CDT Pulse 90 11/28/2019 9:45 AM CDT Temperature 36.5 ??C (97.7 ??F) 11/28/2019 10:45 AM CDT Respiratory Rate 11 11/28/2019 9:45 AM CDT Oxygen Saturation 100% 11/28/2019 9:45 AM CDT Inhaled Oxygen Concentration - - Weight 77.9 kg (171 lb 11.8 oz) 11/28/2019 6:00 AM CDT Height 174 cm (5' 8.5) 11/28/2019 6:00 AM CDT Body Mass Index 25.73 11/28/2019 6:00 AM CDT Body Mass Index Percentile 85.84 % 11/28/2019 6:00 AM CD T Growth Chart: [facility] (Girls, 2-20 Years) documented in this encounter Discharge Instructions Discharge InstructionsAsia Chaudhary RN - 11/28/2019 9:29 AM CDT Same-Day Surgery Adult Discharge Orders & Instructions For 24 hours after surgery: 1. Get plenty of rest. A responsible adult must stay with you for at least 24 hours after you leave the hospital. 2. Pain medication can slow your reflexes. Do not drive or use heavy equipment. If you have weaknessor tingling, don't drive or use heavy equipment until this feeling goes away. 3. Mixing alcohol and pain medication can cause dizziness and slow your breathing. It can even be fatal. Do not drink alcohol while taking pain medication. 4. Avoid strenuous or risky activities. Ask for help when climbing stairs. 5. You may feel lightheaded. If so, sit for a few minutes before standing. Have someone help you getup. 6. If you have nausea (feel sick to your stomach), drink only clear liquids such as apple juice, kathy tona, broth or 7-Up. Rest may also help. Be sure to drink enough fluids. Move to a regular diet asyou feel able. Take pain medications with a small amount of solid food, such as toast or crackers, to avoid nausea. 7. A slight fever is normal. Call the doctor if your fever is over 100??F (37.7??C) (taken under thetongue) or lasts longer than 24 hours. 8. You may have a dry mouth, muscle aches, trouble sleeping or a sore throat. These symptoms should go away after 24 hours. 9. Do not make important or legal decisions. Pain Management: 1. Take pain medication (if prescribed) for pain as directed by your physician. 2. WARNING: If the pain medication you have been prescribed contains Tylenol (acetaminophen), DO NOT take additional doses of Tylenol (acetaminophen). Call your doctor for any of the followin. Signs of infection (fever, growing tenderness at the surgery site, severe pain, a large amount ofdrainage or bleeding, foul-smelling drainage, redness, swelling). 2. It has been over 8 to 10 hours since surgery and you are still not able to urinate (pee). 3. Headache for over 24 hours. 4. Numbness, tingling or weakness the day after surgery (if you had spinal anesthesia). To contact a doctor, call or: ??? [phone] and ask for the Resident Test Developer for: (answered 24 hours a day) ??? Emergency Department: [facility]: [phone] [facility]: [phone] documented in this encounter Medications at Time of Discharge Medication Sig Dispensed Refills Start Date End Date acetaminophen (TYLENOL) Take 2 tablets (650 100 tablet 0 06/202001/03/2020 325 MG tabletIndications: mg) by mouth every Pilonidal sinus 6 hours as needed for mild pain acetaminophen (TYLENOL) Take 1-2 tablets 100 tablet 11 201801/03/2020 500 MG tabletIndications: (500-1,000 mg) by Arthralgia of right knee mouth every 4 hours as needed for pain calcium carbonate 600 Take 1 tablet by 0 01/16/2020 mg-vitamin D 400 units mouth 2 times daily (CALCIUM 600 + D) 600-400 MG-UNIT per tablet cephALEXin (KEFLEX) 500 Take 1 capsule (500 20 capsule 0 01/03/2020 MG capsuleIndications: mg) by mouth 2 Cellulitis of buttock times daily hydrocortisone 2.5 % Apply to affected 30 g 1 11/13/19 20 01/03/2020 ointmentIndications: Skin area bid for 5 days irritation ibuprofen (ADVIL/MOTRIN) Take 2 tablets (400 100 tablet 0 01/09/2020 200 MG tabletIndications: mg) by mouth every Pilonidal sinus 8 hours as needed for mild pain levonorgestrel-ethinyl Take 1 tablet by 84 tablet 3 017 06/26/2020 estradiol (SEASONALE) mouth daily 0.15-0.03 MG per tabletIndications: Encounter for surveillance of contraceptive pills metFORMIN (GLUCOPHAGE) Take 500 mg by 0 03/28/2020 500 MG tablet mouth 2 times daily For appetite suppression/ seraquel oxyCODONE (ROXICODONE) 5 Take 0.5-1 tablets 4 tablet 0 06/202001/03/2020 MG tabletIndications: (2.5-5 mg) by mouth Pilonidal sinus every 6 hours as needed for severe pain QUEtiapine ER (SEROQUEL Take 400 mg by 0 11/13/19 20 03/15/2020 XR) 200 MG 24 hr mouth At Bedtime tabletIndications: With 300 to make Anxiety 500 mg QUEtiapine ER (SEROQUEL Take 400 mg by 0 11/13/19 20 03/15/2020 XR) 300 MG 24 hr mouth At Bedtime tabletIndications: With 200 to make Anxiety 500 mg Vitamin D, Take 1 capsule by 0 020 Cholecalciferol, 1000 mouth daily units CAPS documented as of this encounter Progress Notes HerTiffaniDARLIN - 11/28/2019 11:14 AM CDT 11/28/19 1234 Child Life Location Surgery (Incision and Drainage of Pilonidal Sinus) Intervention Family Support;Supportive Check In Preparation Comment Introduced self to pt and family. Pt appeared to be coping well with cares. Per pt, The IV was good. Reviewed pt's plan of care with pt and family. Mother stated pt has had history of multiple surgeries. No initial CFL needs expressed today. Family Support Comment Pt's mother (Eleanor) present and supportive. Concerns About Development yes (Per chart, pt has high functioning autism and an be agressive (hits/kicks) with staff when upset and may scream when in pain.) Anxiety Appropriate Major Change/Loss/Stressor/Fears surgery/procedure Techniques to [place] with Loss/Stress/Change family presence documented in this encounter Nursing Notes Asia Chaudhary RN - 11/28/2019 10:19 AM CDT Pt ready for discharge, waiting for meds from pharmacy. Kitty Alvarado RN - 11/28/2019 9:11 AM CDT Report given to Asia Mora RN Romy Wade RN - 11/28/2019 7:22 AM CDT Beth can have anxiety, autism, delayed. Doing well this AM. Very calm on admission Linda Whitney RN - 11/24/2019 12:48 PM CDT Images from the original note were not included. Pt telephone Covid screen positive. The following inbasket was sent to provider and PAS managers: Covid 19 exposure. Procedure scheduled on 11/27 Received: Today Message Contents Linda Whitney RN Hess, Donavon John, MD; Norma Ruggiero APRN WEB SIZER; Queta Fritz MD Cc: Sue Bueno; Jeimy Bentley RN; P Pas Anesthesiology ?? Hi Dr Jama and team, I spoke with pt's longtermhome comfort advisor, Rachel. She said one of the longterm staff members reported illness on 11/14 and tested positive for Covid 19 on 11/19. Pt's mom is aware. Pt has been having fevers. Temp was 102.1 last night. It was 98 today. Staff are alternating Tylenoland Ibuprofen. Pt's pre-op physical is scheduled today at 3 pm and covid testing is scheduled on 11/24. Thanks. Linda Whitney RN, BSN Preanesthesia Nursing [phone] documented in this encounter Miscellaneous Notes Op Note - Geneva Jama MD - 11/28/2019 11:14 AM CDT Procedure Date: 11/28/2019 PREOPERATIVE DIAGNOSIS: Infected pilonidal sinus. POSTOPERATIVE DIAGNOSIS: Infected pilonidal sinus. PROCEDURE PERFORMED: Incision and drainage of pilonidal sinus. SURGEON: Geneva Jama Jr., MD ESTIMATED BLOOD LOSS: Less than 1 mL. COMPLICATIONS: None. DESCRIPTION OF OPERATIVE PROCEDURE: The patient was taken to the operating room, induced under general anesthesia, and placed lateral on the cart. She was prepped and draped in the standard sterile surgical fashion. I introduced a De Jesus tendon passer through the previously opened skin site and brought it out laterally and tunneled the blue Maxi vessel loop. I debrided the cavity with a curet and got out a bunch of hair material. We tied the vessel. Packing was placed. Dressings were applied. The patient tolerated the procedure well, was transferred to the postanesthesia care in good condition at the end of the case. Sponge and needle counts were correct at the end of the case. GENEVA JAMA JR, MD MT: LS Name: BETH MORALES Account: [id number] : 2000 Procedure Date: 11/28/2019 Document: [id number] Brief Op Note - Geneva Jama MD - 11/28/2019 8:22 AM CDT [facility] Brief Operative Note Pre-operative diagnosis: Pilonidal sinus [L05.92] Post-operative diagnosis same Procedure: Procedure(s): INCISION AND DRAINAGE, pilonidal sinus Surgeon(s): Surgeon(s) and Role: * Geneva Jama MD - Primary Estimated blood loss: 2 mL Specimens: ID Type Source Tests Collected by Time Destination A : Pilonidal Contents Tissue Other SURGICAL PATHOLOGY EXAM Geneva Jama MD 11/28/2019 8:13 AM Findings: Hair documented in this encounter Plan of Treatment Not on filedocumented as of this encounter Procedures Procedure Name Priority Date/Time Associated Comments Diagnosis SURGICAL PATHOLOGY Routine 11/28/2019 8:13 AM Res ults for this EXAM CDT procedure are i n the results section. HCG QUALITATIVE URINE STAT 11/28/2019 6:50 AM Pilonidal sin us Results for this CDT procedure are i n the results section. INCISION AND DRAINAGE Routine 11/28/2019 6:09 AM Pilonidal sin us SACRAL WOUND, CDT COMBINED documented in this encounter Results Surgical pathology exam (11/28/2019 8:13 AM CDT) Component Value Ref Test Analysis Performed At [facility] Method Time Signature Copath Report Patient Name: BETH MORALES MR#: [id number] Specimen #: [id number] Collected: 11/28/2019 Received: 11/28/2019 Reported: 11/30/2019 14:53 Ordering Phy(s): GENEVA JAMA For improved result formatting, select 'View Enhanced Report Format' under Linked Documents section. SPECIMEN(S): Pilonidal contents FINAL DIAGNOSIS: Pilonidal sinus contents, incision and drainage: - Fragments of granulation tissue and hair, consistent with pilonidal sinus contents - Negative for malignancy I have personally reviewed all specimens and/or slides, incl uding the listed special stains, and used them with my medical judgement to determine or confirm the final diagnosis. Electronically signed out by: Amanuel Thorpe M.D., [facility] GROSS: The specimen is received in formalin with proper patient kaylyn ntification, labeled pilonidal contents. ??The specimen consists of a collection of jaramillo-white irregular gru mous material and hair (1.6 x 1.2 x 0.3 cm in aggregate). ??The specimen is wrapped and entirely submitted in cassette A1. (Dictated by: Robbin MAYNARD 11/28/2019 01:41 PM) MICROSCOPIC: Microscopic examination was performed. The technical component of this testing was completed at the [facility], with the professional compo nent performed at the [facility], [address] [place] [phone] ([phone]) CPT Codes: A: 47970-MK0 COLLECTION SITE: Client: [facility] Location: UROR (B) Resident CDA1 Specimen (Source) Anatomical Collection Method Collection Time Re ceived Time Location / / Volume Laterality Tissue specimen TOPOGRAPHY UNKNOWN 11/28/2019 8:13 AM (specimen) / Unknown CDT Geneva Jama MD [facility] Performing Organization Address City/State/ZIP Code Phon e Number [place] HCG qualitative urine (11/28/2019 6:50 AM CDT) Analysis Performed At Patho logist Time Signature HCG Qual Urine Negative NEG^Negati 11/28/[address] [facility] 7:06 AM CDT [facility] Comment: This test is for screening purposes. ??R esults should be interpreted along with the clinical picture. ??Confirmation te sting is available if warranted by ordering [id number], HCG Quantitative Pregna ncy. Specimen Anatomical Collection Method Collection Time Receive d Time (Source) Location / / Volume Laterality Urine specimen URINE SPECIMEN / 11/28/2019 6:50 AM 06/2020 6:57 (specimen) Unknown CDT AM CDT Man Reynolds MD LAB - URINE ORDERABLES Performing Organization Address City/State/ZIP Code Phon e Number [facility] [address] [place], [place] [id number] [place] [address] documented in this encounter Visit Diagnoses Diagnosis Pilonidal sinus - Primary Pilonidal cyst without mention of absces s documented in this encounter Admitting Diagnoses Diagnosis Pilonidal sinus Pilonidal cyst without mention of absces s documented in this encounter Administered Medications Inactive Administered Medications - up to 3 most recent administrations Medication Order MAR Action Action Date Dose Rate Site acetaminophen (TYLENOL) tablet 650 mg 650 mg, Oral, EVERY 3 HOURS PRN, mild pain, Starting o n Wed11/28/19 at 0843, Maximum acetaminophen dose from all sources = 75 mg/kg /day not to exceed 4 grams/day., Phase ll cefOXitin (MEFOXIN) 1 g vial to attach t o NS 100 mL bag for ADULTS or 25 mL bag for PEDS Routine, 1 g, Intravenous, SEE ADMIN INS TRUCTIONS, Starting on Wed11/28/19 at 1000, DO NOT GIVE intra-op dose if CrCl less t townsend 10 mL/min (on dialysis). If XbNP41-02 mL/min, double the time interval between doses., Indic ations: Perioperative Pharmacoprophylaxis, Intra-procedure fentaNYL (PF) (SUBLIMAZE) injection 39 m cg Given 11/28/2019 9:02 AM CDT 25 mcg 39 mcg (rounded from 38.95 mcg = 0.5 mcg /kg ? 77.9 kg), Intravenous, EVERY 10 MIN PRN, moderate to severe pain, if Respiratory Rate greater than or equal to 80% of pre-op Respiratory Rate (or greater than 15/min), Starting on Wed11/28/19 at 0843, For 2 doses, May administer if Respiratory Rate is greater than 10; Use fentaNYL (SUBLIMAZE) initially, as a short acting agent for acute pain. For ordered IV doses 1-100 mcg give IV Push undiluted over a minimum of 3-5 minutes., PACU morphine (PF) injection 2-4 mg 2-4 mg, Intravenous, EVERY 15 MIN PRN, m oderate to severe pain, if Respiratory Rate greater than or equal to 80% of pre-op R espiratory Rate (or greater than 15/min), Starting on Wed11/28/19 at 0843, For 2 d oses, May administer if Respiratory Rate is greater than 10; PHASE II ONLY. For ordered IV doses 0 .1-15 mg give IV Push undiluted over 4-5 minutes., Phase ll naloxone (NARCAN) injection 0.4 mg 0.4 mg, Intravenous, EVERY 2 MIN PRN, op ioid reversal, Use Full Reversal dose for apnea or imminent respiratory arrest lou t is unexpected.?Partial Reversal for severe sedation, decrease in respiratory depth, quality, or rate., Starting on Wed11/28/19 at 0843, Full Reversal: Dose = 0.01 mg/kg (see Admin Amount on SEP), * Partial Reversal Dose: Weight LESS than 20 kg , Age LESS than 5 years = 0.01 mg. Weight GREATER than or EQUAL to 20 kg , Age GREATER than or EQUAL to 5 years = 0.04 mg. Give Undiluted. STOP opioid and noti fy provider., For ordered IV doses 0.1-2mg give IVP. Give each 0.4mg over 15 second s in emergency situations. For non-emergent situations further dilute in 9mL of NS to facilitate t itration of response., Post-procedure oxyCODONE (ROXICODONE) tablet 5 mg Given 11/28/2019 9:49 AM CDT 5 mg 5 mg, Oral, EVERY 4 HOURS PRN, moderate to severe pain, Starting on Wed11/28/19 at 0948 documented in this encounter Active and Recently Administered Medications Times are shown in CDT. Scheduled Medication Order 11/26/2019 11/27/2019 11/28/2019 cefOXitin (MEFOXIN) 1 g vial to attach t o NS 100 mL bag for ADULTS or 25 mL bag for PEDS 1000 (Canceled Entry - Provider: Orders Generic Provider - Comment: Automatically canceled at discontinue of medication order) Routine, 1 g, Intravenous, SEE ADMIN INS TRUCTIONS, Starting 11/28/19 at 1000, DO NOT GIVE intra-op dose if CrCl less than 10 mL/min (on dialysis). If CrCL10- 50 mL/min, double the time interval betwee n doses., Indications: Perioperative Pharmacoprophylaxis, Intra- procedure cefOXitin (MEFOXIN) 2 g vial to attach to NS 100 mL bag (COMPLET ED) 0808 (Given - Provider: Usha Barcenas, QUALITY CONTROL ASSISTANT SHIRT PRESSER) SOL, 2 g, Intravenous, PRE-OP/PRE-PROCE DURE, Starting 11/28/19 at 0800, For 1 dose, Give first dose within 1 hour PRIOR to incision., Indications: Perioperative Pharmacoprophylaxis, Pre-procedure PRN Medication Order 11/26/2019 11/27/2019 11/28/2019 acetaminophen (TYLENOL) tablet 650 mg 650 mg, Oral, EVERY 3 HOURS PRN, mild pa in, Starting e 11/28/19 at 0843, Maximum acetaminophen dose from all sources = 75 mg/kg/day not to exceed 4 grams/day., Phase ll fentaNYL (PF) (SUBLIMAZE) injection 39 mcg 0902 (Given - Provider: Kitty Alvarado RN) 39 mcg (rounded from 38.95 mcg = 0.5 mcg /kg ? 77.9 kg), Intravenous, EVERY 10 MIN PRN, moderate to severe pain, if Respiratory Rate greater than or equal to 80% of pre-op Respiratory Rate (or greater t townsend 15/min), Starting 11/28/19 at 084 3, For 2 doses, May administer if Respiratory Rate is greater than 10; Use fentaNYL (SUBLIMAZE) initially, as a short acting agent for acute pain. For ordered IV doses 1-100 mcg give IV Push undiluted over a minimum of 3-5 min utes., PACU morphine (PF) injection 2-4 mg 2-4 mg, Intravenous, EVERY 15 MIN PRN, m oderate to severe pain, if Respiratory Rate greater than or equal to 80% of pre-op Respiratory Rate (or greater than 15/min), Starting 11/28/19 at 0843, For 2 doses, May administer if Respiratory Rat e is greater than 10; PHASE II ONLY. For ordered IV doses 0.1-15 mg give IV Push undiluted over 4-5 minutes., Phase ll naloxone (NARCAN) injection 0.4 mg 0.4 mg, Intravenous, EVERY 2 MIN PRN, op ioid reversal, Use Full Reversal dose for apnea or imminent respiratory arrest that is unexpected.?Partial Reversal for severe sedation, decrease in respirator y depth, quality, or rate., Starting Wed11/28/19 at 0843, Full Reversal: Dose = 0.01 mg/kg (see Admin Amount on SEP), * Partial Reversal Dose: Weight LESS than 20 kg , Age LESS than 5 years = 0.01 mg. W eight GREATER than or EQUAL to 20 kg , A ge GREATER than or EQUAL to 5 years = 0.04 mg. Give Undiluted. STOP opioid and notify provider., For ordered IV doses 0.1-2mg give IVP. Give each 0.4mg over 15 se conds in emergency situations. For non-e mergent situations further dilute in 9mL of NS to facilitate titration of response., Post-procedure oxyCODONE (ROXICODONE) tablet 5 mg 0949 (Given - Provider: Asia Chaudhary RN) 5 mg, Oral, EVERY 4 HOURS PRN, moderate to severe pain, Starting Wed11/28/19 at 0948 documented in this encounter Additional Health Concerns Assessment Noted Time PHQ-9 Depression Total Score: 7 11/13/2019 11:26 AM CD T documented as of this encounter Care Teams Licensed Practical Vocational Nurse Relationship Specialty Start Date End Date Queta Fritz MD PCP - General Pediatrics 12/19/15 05/27/20 [address] [place] [id number] Queta Fritz MD Assigned PCP 03/04/14 04/12/21 [address] [place] [id number] documented as of this encounter
--- OUTSIDE RECORDS SUMMARY | 2022-04-23 23:43 | XMS_ITS | Encounter Summary ---
:2000 Author Organization [place] Address [address] [place] [address] Care Team Providers Name Role Phone Queta Fritz MD Primary Care Provider [phone] Queta Fritz MD Unavailable [phone] Reason for Visit Reason Comments Pre-Op Exam Encounter Details Date Type Department Care Team Description 11/24/[address] [facility] Queta Fritz Preop general physical exam (Primary Dx); Clinic Krystle De Jesus MD Pilonidal cyst with abscess; [address] Close Ex posure to Covid-19 Virus [place] [address] [place] [address] [id number] (Wo rk) Social History Tobacco Use Types [...] you attend roman catholic or Never 2018 episcopalian services? 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 documented as of this encounter Last Filed Vital Signs Vital Sign Reading Time Taken Comments Blood Pressure 130/80 11/24/2019 3:08 PM CDT Pulse 91 11/24/2019 3:08 PM CDT Temperature 36.9 ??C (98.4 ??F) 11/24/2019 3:08 PM CDT Respiratory Rate 24 11/24/2019 3:08 PM CDT Oxygen Saturation 99% 11/24/2019 3:08 PM CDT Inhaled Oxygen Concentration - - Weight 78 kg (172 lb) 11/24/2019 3:08 PM CDT Height 174 cm (5' 8.5) 11/24/2019 3:08 PM CDT Body Mass Index 25.77 11/24/2019 3:08 PM CDT Body Mass Index Percentile 86.01 % 11/24/2019 3:08 PM CD T Growth Chart: [facility] (Girls, 2-20 Years) documented in this encounter Patient Instructions Patient InstructionsYolie De La Torre MA - 11/24/2019 3:00 PM CDT Be sure to call if Mahi has another fever higher than 101. Before Your Child???s Surgery or Sedated Procedure ??? Please call the doctor if there???s any change in your child???s health, including signs of a cold or flu (sore throat, runny nose, cough, rash or fever). If your child is having surgery, call the surgeon???s office. If your child is having another procedure, call your family doctor. ??? Do not give lemt-fsn-anteezx medicine within 24 hours of the surgery or procedure (unless the doctor tells you to). ??? If your child takes prescribed drugs: Ask the doctor which medicines are safe to take before thesurgery or procedure. ??? Follow the care team???s instructions for eating and drinking before surgery or procedure. ??? Have your child take a shower or bath the night before surgery, cleaning their skin gently. Use the soap the surgeon gave you. If you were not given special soap, use your regular soap. Do not shave or scrub the surgery site. ??? Have your child wear clean pajamas and use clean sheets on their bed. documented in this encounter Progress Notes Queta Fritz MD - 11/24/2019 3:00 PM CDT [place] [address] [address] [facility] [address] Dept: [phone] PRE-OP EVALUATION: Mahi Faye is a 19 year old female, here for a pre-operative evaluation. Today's date: 11/24/2019 This report to be faxed to [facility] ([phone]) Primary Physician: Queta Fritz Type of Anesthesia Anticipated: General PRE-OP PEDIATRIC QUESTIONS 11/24/2019 What procedure is being done? getting a tube in my but to drain my prioride sist Date of surgery / procedure: 11/28/19 Facility or Hospital where procedure/surgery will be performed: [facility] Who is doing the procedure / surgery? - 1. In the last week, has your child had any illness, including a cold, cough, shortness of breath orwheezing? No 2. In the last week, has your child used ibuprofen or aspirin? YES - For pain 3. Does your child use herbal medications? No In the past 3 weeks, has your child been exposed to chicken pox, whooping cough, Fifth disease, measles, or tuberculosis? (Select all that apply): No 5. Has your child ever had wheezing or asthma? No 6. Does your child use supplemental oxygen or a C-PAP Machine? No 7. Has your child ever had anesthesia or been put under for a procedure? YES - See surgical history 8. Has your child or anyone in your family ever had problems with anesthesia? No 9. Does your child or anyone in your family have a serious bleeding problem or easy bruising? No 10. Has your child ever had a blood transfusion? No 11. Does your child have an implanted device (for example: cochlear implant, pacemaker, CAR TRIMMER shunt)? No HPI: Brief HPI related to upcoming procedure: Mahi is a 19-year-old female who lives in a [facility]. She has a chromosomal abnormality and developmental delay. Mahi had a fever beginning on November 02. She was evaluated for COVID-19 and was found to be negative. Symptomatic care was recommended. On 09 November approximately 3-1/2 days after her fever resolved she developed buttock pain that she described as being quite severe. Since then she has been seen in our pediatric clinic on 2 occasions the first on 12 November and again on the . At the first visit she was noted to have a small area of erythema on the gluteal fold. She was treated for superficial irritation with hydrocortisone cream. Her symptoms worsened and was seen again on the at which time she had developed a small area of cellulitis. She was started on Keflex and did not improve symptomatically. Evaluated by Dr. Mason general surgery 2 days ago at which time the diagnosis of a pilonidal cyst was made. She is scheduled for surgery in 4 days time. Mahi has remained afebrile until yesterday at which time she noted a fever of 103. This resolved within a few hours and has not returned. In a note in the chart I see that there is a Covid 19 case in the nursing home that Mahi is a part of. This was diagnosed on 11/19. Dr. Jama has been made aware Mahi will be tested at the time of admission. . Medical History: PROBLEM LIST Patient Active Problem List Diagnosis Date Noted ??? Aggression with talk of suicide/homicide 09/13/2014 Priority: High Strong evidence that she is not at risk to act on her threats. ??? Pilonidal sinus 11/23/2019 Priority: Medium Added automatically from request for surgery [id number] ??? Slow transit constipation 11/16/2019 Priority: Medium ??? Mild anemia 09/28/2018 Priority: Medium ??? Development delay 03/18/2016 Priority: Medium ??? Suicidal ideation 12/18/2015 Priority: Medium ??? Anxiety 07/16/2014 Priority: Medium ??? Insomnia 07/16/2014 Priority: Medium ??? 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 Learning disability Priority: Medium related to her chromosomal abnormality SURGICAL HISTORY Past Surgical History: Procedure Laterality Date ??? COLONOSCOPY N/A 02/10/2019 Procedure: COLONOSCOPY with biopsies; Surgeon: Vikas Martin MD; Location: [facility] OR ??? ESOPHAGOSCOPY, GASTROSCOPY, DUODENOSCOPY (EGD), COMBINED N/A 02/10/2019 Procedure: ESOPHAGOGASTRODUODENOSCOPY with biopsies; Surgeon: Vikas Martin MD; Location: [facility] OR ??? HC CYSTOURETHROSCOPY 05/04/2005 Cysto and urethral dilation. ??? INCISION AND DRAINAGE TONSIL, COMBINED 2013 under general anesthesia ??? ORTHOPEDIC SURGERY scope knee MEDICATIONS acetaminophen (TYLENOL) 500 MG tablet, Take 1-2 tablets (500-1,000 mg) by mouth every 4 hours as needed for pain calcium carbonate 600 mg-vitamin D 400 units (CALCIUM 600 + D) 600-400 MG-UNIT per tablet, Take 1 tablet by mouth 2 times daily cephALEXin (KEFLEX) 500 MG capsule, Take 1 capsule (500 mg) by mouth 2 times daily hydrocortisone 2.5 % ointment, Apply to affected area bid for 5 days levonorgestrel-ethinyl estradiol (SEASONALE) 0.15-0.03 MG per tablet, Take 1 tablet by mouth daily METFORMIN HCL PO, Take 500 mg by mouth 2 times daily QUEtiapine ER (SEROQUEL XR) 200 MG 24 hr tablet, Take 1 tablet (200 mg) by mouth At Bedtime With 300to make 500 mg QUEtiapine ER (SEROQUEL XR) 300 MG 24 hr tablet, Take 1 tablet (300 mg) by mouth At Bedtime With 200to make 500 mg Vitamin D, Cholecalciferol, 1000 units CAPS, Take 1 capsule by mouth daily No current facility-administered medications on file prior to visit. ALLERGIES Allergies Allergen Reactions ??? Nkda [No Known Drug Allergies] ??? Seasonal Allergies Review of Systems: Constitutional, eye, ENT, skin, respiratory, cardiac, and GI are normal except as otherwise noted. Physical Exam: BP 130/80 (BP Location: Left arm, Patient Position: Chair, Cuff Size: Adult Regular) Pulse 91 Temp 98.4 ??F (36.9 ??C) (Oral) Resp 24 Ht 5' 8.5 (1.74 m) Wt 172 lb (78 kg) SpO2 99% BMI 25.77 kg/m?? 95 %ile based on CDC (Girls, 2-20 Years) Rbyudsn-hcy-dpl data based on Stature recorded on 11/24/2019. 94 %ile based on CDC (Girls, 2-20 Years) pwmkke-xjy-kqs data based on Weight recorded on 11/24/2019. 86 %ile based on CDC (Girls, 2-20 Years) BMI-for-age based on body measurements available as of 11/24/2019. Blood pressure reading is in the Stage 1 hypertension range (BP >= 130/80) based on the 2017 AAP Clinical Practice Guideline. GENERAL: Active, alert, in no acute distress. SKIN: except for minimal erythema in the crease of the buttock with a central 1 mm black humphrey the skin is clear. No significant rash, abnormal pigmentation or lesions HEAD: Normocephalic. EYES: No discharge or erythema. Normal pupils and EOM. EARS: Normal canals. Tympanic membranes are normal; presley and translucent. NOSE: Normal without discharge. MOUTH/THROAT: Clear. No oral lesions. Teeth intact without obvious abnormalities. NECK: Supple, no masses. LYMPH NODES: No adenopathy LUNGS: Clear. No rales, rhonchi, wheezing or retractions HEART: Regular rhythm. Normal S1/S2. No murmurs. ABDOMEN: Soft, non-tender, not distended, no masses or hepatosplenomegaly. Bowel sounds normal. Diagnostics: None indicated Assessment/Plan: Mahi Faye is a 19 year old female, presenting for: 1. Preop general physical exam 2. Pilonidal cyst with abscess 3. Close Exposure to Covid-19 Virus Airway/Pulmonary Risk: None identified Cardiac Risk: None identified Hematology/Coagulation Risk: None identified Metabolic Risk: None identified Pain/Comfort Risk: History of Developmental Delay/Neurological Function Approval given to proceed with proposed procedure, without further diagnostic evaluation except for COvid 19 testing. Copy of this evaluation report is provided to requesting physician. November 24, 2019 Signed Electronically by: Queta Fritz MD [place] [address] [address] [facility] [address] documented in this encounter Plan of Treatment Not on filedocumented as of this encounter Visit Diagnoses Diagnosis Preop general physical exam - Primary Other specified pre-operative examinatio n Pilonidal cyst with abscess Close exposure to COVID-19 virus documented in this encounter Additional Health Concerns Assessment Noted Time PHQ-9 Depression Total Score: 7 11/13/2019 11:26 AM CD T documented as of this encounter Care Teams Utility Worker Driver Relationship Specialty Start Date End Date Queta Fritz MD PCP - General Pediatrics 12/19/15 05/27/20 [address] [place] [address] Queta Fritz MD Assigned PCP 03/04/14 04/12/21 [address] [place] [address] documented as of this encounter
--- OUTSIDE RECORDS SUMMARY | 2022-04-23 23:43 | XMS_ITS | Encounter Summary ---
:2000 Author Organization [place] Address [address] [place] [address]. [place] [address] Care Team Providers Name Role Phone Queta Fritz MD Primary Care Provider [phone] Queta Fritz MD Unavailable [phone] Reason for Visit Reason Comments RECHECK Surgery follow up Encounter Details Date Type Department Care Team Description 12/20/2019 Office Visit [facility] Tc Jama Pil onidal disease [facility] [address] [place], [place] [address] [place] [address] [facility] [place] [address] [address], [facility] [id number] [place] [address] (Wo rk) [address] [phone] Social History Tobacco Use Types Packs/Day Years [...] do you attend zoroastrian or Never 2018 druze services? 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 documented as of this encounter Last Filed Vital Signs Vital Sign Reading Time Taken Comments Blood Pressure 136/85 12/20/2019 1:17 PM CDT Pulse 100 12/20/2019 1:17 PM CDT Temperature - - Respiratory Rate - - Oxygen Saturation - - Inhaled Oxygen Concentration - - Weight 77.9 kg (171 lb 11.8 oz) 12/20/2019 1:17 PM CDT Height 173 cm (5' 8.11) 12/20/2019 1:17 PM CDT Body Mass Index 26.03 12/20/2019 1:17 PM CDT Body Mass Index Percentile 86.83 % 12/20/2019 1:17 PM CD T Growth Chart: [facility] (Girls, 2-20 Years) documented in this encounter Progress Notes Tc Jama MD - 12/20/2019 1:15 PM CDT December 20, 2019 Queta Fritz MD [facility] [address] [facility], [address] [place] [address] RE:Mahi Faye :[address] Fritz: It was my pleasure to see Mahi Faye in clinic today in ongoing care of her pilonidal sinus. Today, we removed her drain and asked her to bathe at least once daily for 15 minutes and gave her some Techni-Care to wash with. We are going to let the drainage tract scar down and then plan for an elective excision in about 3 weeks. Thank you very much for allowing [...] documented as of this encounter Care Teams Cut Plug Packer Relationship Specialty Start Date End Date Queta Fritz MD PCP - General Pediatrics 12/19/15 05/27/20 [address] [place] [id number] Queta Fritz MD Assigned PCP 03/04/14 04/12/21 [address] [place] [address] documented as of this encounter
--- OUTSIDE RECORDS SUMMARY | 2022-04-23 23:43 | XMS_ITS | Encounter Summary ---
:2000 Author Organization [place] Address [address] [place] [address] Care Team Providers Name Role Phone Queta Fritz MD Primary Care Provider [phone] Queta Fritz MD Unavailable [phone] Encounter Details Date Type Department Care Team Description 01/02/2020 Travel Social History Tobacco Use Types Packs/Day [...] or relatives? How often do you attend gnosticist or Never 2018 episcopal services? 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 documented as of this encounter Plan of Treatment Not on filedocumented as of this encounter Visit Diagnoses Not on filedocumented in this encounter Additional Health Concerns Assessment Noted Time PHQ-9 Depression Total Score: 7 11/13/2019 11:26 AM CD T documented as of this encounter Care Teams Mold Stripper Relationship Specialty Start Date End Date Queta Fritz MD PCP - General Pediatrics 12/19/15 05/27/20 [address] [place] [address] Queta Fritz MD Assigned PCP 03/04/14 04/12/21 [address] [place] [address] documented as of this encounter
--- OUTSIDE RECORDS SUMMARY | 2022-04-23 23:43 | XMS_ITS | Encounter Summary ---
:2000 Author Organization [place] Address [address] [place] [address] Care Team Providers Name Role Phone Queta Fritz MD Primary Care Provider [phone] Queta Fritz MD Unavailable [phone] Encounter Details Date Type Department Care Team Description 12/20/2019 Travel Social History Tobacco Use Types Packs/Day [...] or relatives? How often do you attend christian or Never 2018 adventist services? 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
--- OUTSIDE RECORDS SUMMARY | 2022-04-23 23:43 | XMS_ITS | Encounter Summary ---
:2000 Author Organization [place] Address [address] [place] [address] Care Team Providers Name Role Phone Queta Fritz MD Primary Care Provider [phone] Queta Fritz MD Unavailable [phone] Encounter Details Date Type Department Care Team Description 11/24/2019 Travel Social History Tobacco Use Types Packs/Day [...] or relatives? How often do you attend moravian or Never 2018 evangelical services? 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
--- OUTSIDE RECORDS SUMMARY | 2022-04-23 23:43 | XMS_ITS | Encounter Summary ---
:2000 Author Organization [facility] Address [address] [facility] [place] [address] Care Team Providers Name Role Phone Queta Fritz MD Primary Care Provider [phone] Queta Fritz MD Unavailable [phone] Reason for Visit Auth/Cert Specialty Diagnoses / Procedures Referred By Contact Refer red To Contact Surgery Diagnoses Pilonidal sinus Pilonidal sinus [L05.92] Ur Periop Procedures C I&D, POST SPINE, LUMB/SACR/LUMBOSAC INCISION AND DRAINAGE, pilonidal sinus 0 [place] [address] Phone: Fax: Referral ID Status Reason Start Date Expiration Date Visits Requ ested Visits Authorized [id number] 1 1 Encounter Details Date Type Department Care Team Description 11/28/2019 Surgery Formerly [facility] Geneva Jama , INCISION AND DRAINAGE, PeriOp Services pilonidal sinus [address] [facility] [address] [facility] [place] [address] [facility] [phone] [place], [place] [address] (Wo rk) Surgery Details Date/Time Status Location OR Service Patient Case Class Case Tr auma Class Type Case? 11/28/19 8:00 Posted UR OR UR OR General Same Day AM 16 Surgery Panel 1 Procedure LRB Anes Op Region Wound Class Commen ts INCISION AND DRAINAGE, pilonidal N/A General Sacrum IV- Dirty or Infected sinus Surgeon Surgeon Role Service Panel Geneva Jama MD Primary General 1 Special Needs 11/23 Covid telephone screen positive. Isai up Home. Mom will be with on DOS.Autism. Can be aggressive and act out with staff and herself if upset (hits/kicks). May scream when in pain. If procedure is not cancel led, notify [facility] on Wednesday that pt may need a plan documented in this encounter Social History Tobacco [...] do you attend moravian or Never 2018 cheondoism services? 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 [phone] and ask for the Resident Soil Technician for: (answered 24 hours a day) ??? Emergency Department: [place] [facility]: [phone] [place] [facility]: [phone] documented in this encounter Medications at Time [...] documented as of this encounter Progress Notes Tiffani Dhillon CCLS - 11/28/2019 11:14 AM CDT 11/28/19 1234 [...] Anxiety Appropriate Major Change/Loss/Stressor/Fears surgery/procedure Techniques to [place] with Loss/Stress/Change family presence documented in this encounter Nursing Notes Asia Chaudhary, RN - 11/28/2019 10:19 AM CDT Pt [...] Hess, Donavon John, MD; Norma Ruggiero APRN APPAREL RENTAL CLERK; Queta Fritz MD Cc: Sue Bueno; Jeimy Bentley RN; P Pas Anesthesiology ?? Hi Dr Jama and team, I spoke with pt's senior carehome visits nurse, Rachel. She said one of the senior care staff members reported illness on 11/14 and tested positive for Covid 19 on 11/19. Pt's mom is aware. Pt has been having fevers. Temp was 102.1 last night. It was 98 today. Staff are alternating Tylenoland Ibuprofen. Pt's pre-op physical is scheduled today at 3 pm and covid testing is scheduled on 11/24. Thanks. Linda Whitney RN, BSN Preanesthesia Nursing [phone] documented in this encounter Miscellaneous Notes Op [...] the case. GENEVA JAMA JR, MD MT: JESSICA Name: BETH MORALES Account: [id number] : 2000 Procedure Date: 11/28/2019 Document: [id number] Brief Op Note - Geneva Jama MD - 11/28/2019 8:22 AM CDT [facility] Brief Operative Note Pre-operative diagnosis: Pilonidal sinus [...] Component Value Ref Test Analysis Performed At [facility] Range Method Time Signature Copath Report Patient Name: BETH MORALES MR#: [id number] Specimen #: [id number] Collected: 11/28/2019 Received: 11/28/2019 Reported: 11/30/2019 14:53 [...] Electronically signed out by: Amanuel Thorpe M.D., [facility] GROSS: The specimen is received in formalin [...] of this testing [facility], with the professional compo nent performed at the [facility], [address] [place] [phone] ([phone]) CPT Codes: A: 39506-JN4 COLLECTION SITE: Client: [facility] Location: UROR (B) Resident CDA1 Specimen (Source) Anatomical Collection Method Collection Time Re ceived Time Location / / Volume Laterality Tissue specimen TOPOGRAPHY UNKNOWN 11/28/2019 8:13 AM (specimen) / Unknown CDT Geneva Jama MD LAB - BEAKER AP Performing Organization Address City/[facility] Phon e Number COPATH HCG qualitative urine (11/28/2019 6:50 AM CDT) Analysis Performed At Patho logist Time Signature HCG Qual Urine Negative NEG^Negati 11/28/2019 [facility] 7:06 AM CDT [facility] Comment: This test is for screening purposes. ??R esults should be interpreted along with the clinical picture. ??Confirmation te sting is available if warranted by ordering [id number], HCG Quantitative Pregna ncy. Specimen Anatomical Collection Method Collection Time Receive d Time (Source) Location / / Volume Laterality Urine specimen URINE SPECIMEN / 11/28/2019 6:50 AM 06/2020 6:57 (specimen) Unknown CDT AM CDT Man Reynolds MD LAB - URINE ORDERABLES Performing Organization Address City/[facility] Phon e Number [facility] [address] [place] [address] [facility] documented in this encounter Visit Diagnoses Diagnosis Pilonidal sinus - Primary Pilonidal cyst without mention of absces s Pilonidal sinus Pilonidal cyst without mention of [...] HOURS PRN, mild pain, Starting o n 11/28/19 at 0843, Maximum acetaminophen dose from [...] t townsend 10 mL/min (on dialysis). If SyOR98-81 mL/min, double the time interval between doses., [...] g, Intravenous, SEE ADMIN INS TRUCTIONS, Starting Wed11/28/19 at 1000, DO NOT GIVE intra-op dose if CrCl less than 10 mL/min (on dialysis). If CrCL10- 50 mL/min, double the time interval betwee n doses., Indications: Perioperative Pharmacoprophylaxis, Intra- procedure cefOXitin (MEFOXIN) 2 g vial to attach to NS 100 mL bag (COMPLET ED) 0808 (Given - Provider: Usha Barcenas APRN CRNA) SOL, 2 g, Intravenous, PRE-OP/PRE-PROCE DURE, Starting Wed11/28/19 at 0800, For 1 dose, Give first dose within 1 hour PRIOR to incision., Indications: Perioperative Pharmacoprophylaxis, Pre-procedure PRN Medication Order 11/26/2019 11/27/2019 11/28/2019 acetaminophen (TYLENOL) tablet 650 mg 650 mg, Oral, EVERY 3 HOURS PRN, mild pa in, Starting Wed11/28/19 at 0843, Maximum acetaminophen dose from [...] Rate (or greater t townsend 15/min), Starting Wed11/28/19 at 084 3, For 2 doses, May [...] Respiratory Rate (or greater than 15/min), Starting Wed11/28/19 at 0843, For 2 doses, May [...] documented as of this encounter Care Teams Coater Operator Relationship Specialty Start Date End Date Queta Fritz MD PCP - General Pediatrics 12/19/15 05/27/20 [address] [place] [address] [id number] Queta Fritz MD Assigned PCP 03/04/14 04/12/21 [address] [place] [address] [phone] documented as of this encounter
--- OUTSIDE RECORDS SUMMARY | 2022-04-23 23:43 | XMS_ITS | Encounter Summary ---
:2000 Author Organization [facility] Address [address] [place] [address]. [place] [address] Care Team Providers Name Role Phone Queta Fritz MD Primary Care Provider [phone] Queta Fritz MD Unavailable [phone] Reason for Visit Reason Comments Consult consult pilonidial cyst Encounter Details Date Type Department Care Team Description 11/22/2019 Office Visit [facility] Tc Jama, Pil onidal sinus [facility] [address] [place] [address] [facility] [place], [place] [address], 3rd Fl[address] [address] [place], [place] [phone] (Wo rk) [address] [phone] Social History Tobacco Use Types Packs/Day Years [...] or relatives? How often do you attend taoism or Never 2018 hindu services? 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 documented as of this encounter Last Filed Vital Signs Vital Sign Reading Time Taken Comments Blood Pressure 148/93 11/22/2019 1:25 PM CDT Pulse 101 11/22/2019 1:25 PM CDT Temperature - - Respiratory Rate - - Oxygen Saturation - - Inhaled Oxygen Concentration - - Weight 78.2 kg (172 lb 6.4 oz) 11/22/2019 1:25 PM CDT Height 173.8 cm (5' 8.43) 11/22/2019 1:25 PM CDT Body Mass Index 25.89 11/22/2019 1:25 PM CDT Body Mass Index Percentile 86.46 % 11/22/2019 1:25 PM CD T Growth Chart: [facility] (Girls, 2-20 Years) documented in this encounter Patient Instructions Patient InstructionsTroy Simpson LPN - 11/22/2019 1:30 PM CDT Please allow Mahi to soak in a tub to help relieve pressure and help drain the sinus twice a day.She can alternate tylenol and ibuprofen but the best pain control will be having the sinus drain to relieve the pressure. Showering or Bathing Before Surgery Use 4-8 ounces of Scrub Care Chloroxylenol cleansing solution You can find it at your local pharmacy, clinic or retail store if it was not provided during your clinic visit. If you have trouble, ask your pharmacist to help you find the right substitute. Please wash with the above soap twice before coming to the hospital for your surgery. This will decrease bacteria (germs) on your skin. It will also help reduce your chance of infection after surgery. Read the directions and safety tips on the bottle of soap. Wash once the evening before surgery and once the morning of surgery. Use 4 (2 ounces for babies and small children) ounces of soap each time. When showering, it is best to use 2 fresh washcloths and a fresh towel. Items you will need for showering: ??? 4 newly washed washcloths ??? 2 newly washed towels ??? 8 ounces of one of the above soaps Follow these instructions The evening before surgery 1. Shower or bathe as you normally would, using your regular soap and a clean washcloth. Give special attention to places where your incision (surgical cut) or catheters will be. This includes your groin area. Rinse well. You may wash your hair with your regular shampoo. 2. Next, wash your body with the antiseptic soap. ??? Use 4 ounces of full strength antiseptic soap. (do not dilute it with water) and follow these steps: ??? Use a clean, damp washcloth and gently clean your body (from the chin down). ??? If your surgery involves your head, use the special soap on your head and scalp. 3. Rinse well and dry off using a newly washed towel. The morning of surgery ??? Repeat steps 1, 2 and 3. ??? For step 2, use the remaining full 4 ounces of the antiseptic soap. Other instructions: ??? Wear freshly washed pajamas or clothing after your evening shower. ??? Wear freshly washed clothes the day of surgery. ??? Wash and change your bed sheets the day before surgery to have clean bed sheets after you shower and when you get home from surgery. ??? If you have trouble washing all areas, make sure someone helps you. ??? Don???t use any deodorant, lotion or powder after your shower. ??? Women who are menstruating should wear a fresh sanitary pad to the hospital. documented in this encounter Progress Notes Tc Jama MD - 11/22/2019 1:30 PM CDT November 29, 2019 Queta Fritz MD [facility] [address] [facility], [address] [place] [address] RE:Mahi Neyda :[address] Fritz: It was my pleasure to see Mahi Cisewski in clinic today regarding pilonidal sinus. She has a large pilonidal sinus which is draining purulent material. I discussed placement of a drain to allow thisto get smaller with the patient and her mother and then we can think about excision after we reduce the size. In the meantime, she is to continue Sitz baths and expressing material from the wound. We will plan to schedule her procedure in the near future. Thank you very much for allowing us to be involved in her care. Please contact me if I can be of further assistance. Sincerely, Tc Jama Jr., MD documented in this encounter Nursing Notes Troy Simpson LPN - 11/22/2019 1:30 PM CDT [facility] [[id number]] Chief Complaint Patient presents with ??? Consult consult pilonidial cyst Initial BP (!) 148/93 Pulse 101 Ht 5' 8.43 (173.8 cm) Wt 172 lb 6.4 oz (78.2 kg) LMP 10/23/2019 BMI 25.89 kg/m?? Estimated body mass index is 25.89 kg/m?? as calculated from the following: Height as of this encounter: 5' 8.43 (173.8 cm). Weight as of this encounter: 172 lb 6.4 oz (78.2 kg). Medication Reconciliation: complete documented in this encounter Miscellaneous Notes Provider Notification - Cami Mcmahon CCLS - 11/22/2019 1:30 PM CDT 11/22/19 1426 Child Life Location Speciality [facility] (New pt in Surgery Clinic for pilonidal sinus) Intervention Supportive Check In;Preparation;Family Support (Assess preparation for upcoming surgery(drain cyst)) Preparation Comment CFLS introduced self and services. Mother recalled CFL supporting pt with past procedures but pt couldn't remember. Implemented visual preparation via ipad to support pt understanding of the surgery process. Pt was pleasant and engaging throughout preparation. Pt displayed minimal signs of anxiety. Pt reported she had knee surgery a year ago at [facility]. [facility]. Family Support Comment Mother(Eleanor) is a support to pt. Currently, pt is living in a long term. Mother will be present on the day of surgery. Post-op plan is same day surgery. Concerns About Development (Pt's chart noted for anxiety;developmental delay) Anxiety Appropriate Major Change/Loss/Stressor/Fears medical condition, self Techniques to Equality with Loss/Stress/Change family presence (Pt chiki well with IV placements but would prefer j-tip for pain control) Outcomes/Follow Up Continue to Follow/Support;Provided Materials (Provided surgery video resource;Will refer pt to the CFLS in the surgery unit for continuity of care) documented in this encounter Plan of Treatment Not on filedocumented as of this encounter Visit Diagnoses Diagnosis Pilonidal sinus - Primary Pilonidal cyst without mention of absces s documented in this encounter Additional Health Concerns Assessment Noted Time PHQ-9 Depression Total Score: 7 11/13/2019 11:26 AM CD T documented as of this encounter Care Teams Copier Repair Technician Relationship Specialty Start Date End Date Queta Fritz MD PCP - General Pediatrics 12/19/15 05/27/20 [address] [place] [id number] Queta Fritz MD Assigned PCP 03/04/14 04/12/21 [address] [place] [id number] documented as of this encounter
--- OUTSIDE RECORDS SUMMARY | 2022-04-23 23:43 | XMS_ITS | Encounter Summary ---
:2000 Author Organization [place] Address [address] [place] [address] Care Team Providers Name Role Phone Queta Fritz MD Primary Care Provider [phone] Queta Fritz MD Unavailable [phone] Reason for Visit Reason Onset Date Comments Patient/info Update 12/19/2019 called to do COVID-1 9 screen Encounter Details Date Type Department Care Team Description 12/19/2019 Telephone [facility] Dulce Maria Wilkerson, Patient /info Update [facility] [place] senior program planner (called to do COVID-19 Specialty Clinic screen ) [facility] [address] [facility] [address] [place] [address] Social History Tobacco Use Types Packs/Day [...] do you attend sabianist or Never 2018 religion services? 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 documented as of this encounter Miscellaneous Notes Telephone Encounter - Dulce Maria Wilkerson LPN - 12/19/2019 3:15 PM CDT Called and did COVID-19 screen-negative, and went over visitor policy. Dulce Maria Wilkerson LPN documented in this encounter Plan of Treatment Not on filedocumented as of this encounter Visit Diagnoses Not on filedocumented in this encounter Additional Health Concerns Assessment Noted Time PHQ-9 Depression Total Score: 7 11/13/2019 11:26 AM CD T documented as of this encounter Care Teams General Farmer Relationship Specialty Start Date End Date Queta Fritz MD PCP - General Pediatrics 12/19/15 05/27/20 [address] [place] [address] [phone] Queta Fritz MD Assigned PCP 03/04/14 04/12/21 [address] [place] [phone] documented as of this encounter
--- OUTSIDE RECORDS SUMMARY | 2022-04-23 23:43 | XMS_ITS | Encounter Summary ---
:2000 Author Organization [place] Address [address] [place] [address] Care Team Providers Name Role Phone Queta Fritz MD Primary Care Provider [phone] Queta Fritz MD Unavailable [phone] Reason for Visit Reason Onset Date Comments Patient/info Update 11/21/2019 called to do COVID-1 9 screen Encounter Details Date Type Department Care Team Description 11/21/2019 Telephone [facility] Dulce Maria Wilkerson, Patient /info Update [facility] dermatologist (called to do COVID-19 Specialty Clinic screen ) [facility] [address] [facility] [address] [place] [address] Social History Tobacco Use Types [...] or relatives? How often do you attend christianity or Never 2018 jew services? 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 documented as of this encounter Miscellaneous Notes Telephone Encounter - Dulce Maria Wilkerson LPN - 11/21/2019 9:49 AM CDT Bundle Clerk called and left message with mother going over visitor policy and COVID- 19 screen. Gave call center number to call if screen is + to reschedule. Dulce Maria Wilkerson LPN documented in this encounter Plan of Treatment Not on filedocumented as of this encounter Visit Diagnoses Not on filedocumented in this encounter Additional Health Concerns Assessment Noted Time PHQ-9 Depression Total Score: 7 11/13/2019 11:26 AM CD T documented as of this encounter Care Teams Director New Product Relationship Specialty Start Date End Date Queta Fritz MD PCP - General Pediatrics 12/19/15 05/27/20 [address] [place] [id number] Queta Fritz MD Assigned PCP 03/04/14 04/12/21 [address] [place] [phone] documented as of this encounter
--- OUTSIDE RECORDS SUMMARY | 2022-04-23 23:43 | XMS_ITS | Encounter Summary ---
:2000 Author Organization [place] Address [address] [place] [address] Care Team Providers Name Role Phone Queta Fritz MD Primary Care Provider [phone] Queta Fritz MD Unavailable [phone] Encounter Details Date Type Department Care Team Description 11/23/2019 Travel Social History Tobacco Use Types Packs/Day [...] do you attend shinto or Never 2018 orthodoxy services? 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 documented as of this encounter Plan of Treatment Not on filedocumented as of this encounter Visit Diagnoses Not on filedocumented in this encounter Additional Health Concerns Assessment Noted Time PHQ-9 Depression Total Score: 7 11/13/2019 11:26 AM CD T documented as of this encounter Care Teams Management Professionals Relationship Specialty Start Date End Date Queta Fritz MD PCP - General Pediatrics 12/19/15 05/27/20 [address] [place] [phone] Queta Fritz MD Assigned PCP 03/04/14 04/12/21 [address] [place] [phone] documented as of this encounter
--- OUTSIDE RECORDS SUMMARY | 2022-04-23 23:43 | XMS_ITS | Encounter Summary ---
:2000 Author Organization [facility] Address [address] [place] [address] Care Team Providers Name Role Phone Queta Fritz MD Primary Care Provider [phone] Queta Fritz MD Unavailable [phone] Encounter Details Date Type Department Care Team Description 11/25/2019 Travel Social History Tobacco Use Types Packs/Day [...] do you attend buddhist or Never 2018 lutheran services? 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 documented as of this encounter Plan of Treatment Not on filedocumented as of this encounter Visit Diagnoses Not on filedocumented in this encounter Additional Health Concerns Assessment Noted Time PHQ-9 Depression Total Score: 7 11/13/2019 11:26 AM CD T documented as of this encounter Care Teams In House Cra Relationship Specialty Start Date End Date Queta Fritz MD PCP - General Pediatrics 12/19/15 05/27/20 [address] [place] [phone] Queta Fritz MD Assigned PCP 03/04/14 04/12/21 [address] [place] [phone] documented as of this encounter
--- OUTSIDE RECORDS SUMMARY | 2022-04-23 23:43 | XMS_ITS | Encounter Summary ---
:2000 Author Organization [facility] Address [address] [place] [address] Care Team Providers Name Role Phone Queta Fritz MD Primary Care Provider [phone] Queta Fritz MD Unavailable [phone] Reason for Visit Diagnostic Imaging XR (Routine) - Closed Specialty Diagnoses / Procedures Referred By Contact Refer red To Contact Diagnoses Pain in buttock Patricia Evans MD Procedures XR Lumbar Spine 2/3 Views [address] [address]IX [address] Referral ID Status Reason Start Date Expiration Date Visits Requ ested Visits Authorized [id number] Closed 11/15/2019 11/14/2020 1 1 Encounter Details Date Type Department Care Team Description 11/15/2019 Ancillary Procedure [facility] Patricia Evans Pain in buttock [facility] Krystle Huerta MD [address] [address] [address] [address] [place] [phone] (Wo rk) [address] [phone] Social History Tobacco Use Types Packs/Day Years [...] do you attend nondenominational or Never 2018 mandaeism services? Do you belong to any clubs or No 12/07/2018 organizations such as nondenominational groups, unions, fraGameyola or athletic groups, or school groups? 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 documented as of this encounter Plan of Treatment Not on filedocumented as of this encounter Procedures Procedure Name Priority Date/Time Associated Diagnosis Comme nts XR LUMBAR SPINE 2/3 Routine 11/15/2019 4:03 PM Pain in buttock Results for this VIEWS CDT procedure are i n the results section. documented in this encounter Results XR Lumbar Spine 2/3 Views (11/15/2019 4:03 PM CDT) Anatomical Region Laterality Modality Spine, T-spine, L-spine, Abdomen/Pelvis Computed Radiography Specimen (Source) Anatomical Location Collection Method / Collectio n Time Received Time / Laterality Volume Impressions 11/15/2019 4:51 PM CDT IMPRESSION: 1. Mild broad-based levoconvex curvature of the lumbar spine is centered at L3. 2. Otherwise negative lumbar spine x-ray s. MIGUELITO GILMORE MD Narrative 11/15/2019 4:51 PM CDT LUMBAR SPINE TWO - THREE VIEWS ?? 11/15/2019 4:03 PM HISTORY: Pain in buttock. COMPARISON: None. FINDINGS: ??There are five non-rib beari ng lumbar type vertebrae. There is mild broad-based levoconvex curvature of the lumbar spine centered at L3. Disc space are grossly well-maint ained. Pedicles are intact. Vertebral bodies are normal height. SI j oints are unremarkable. Moderate amount of stool is projected ov er the colon. Psoas margins are maintained. No acute fracture or mal alignment. Procedure Note Miguelito Gilmore MD - 11/15/2019Form atting of this note might be different from the original. LUMBAR SPINE TWO - THREE VIEWS 11/15/2019 4:03 PM HISTORY: Pain in buttock. COMPARISON: None. FINDINGS: There are five non-rib bearing lumbar type vertebrae. There is mild broad-based levoconvex curvature of the lumbar spine centered at L3. Disc space are grossly well-maint ained. Pedicles are intact. Vertebral bodies are normal height. SI j oints are unremarkable. Moderate amount of stool is projected ov er the colon. Psoas margins are maintained. No acute fracture or mal alignment. IMPRESSION: 1. Mild broad-based levoconvex curvature of the lumbar spine is centered at L3. 2. Otherwise negative lumbar spine x-ray sDonavon GILMORE MD Patricia Corrales MD IMG DIAGNOSTIC IMAGING ORDER LINDSAY documented in this encounter Visit Diagnoses Diagnosis Pain in buttock Mylagia and myositis, unspecified documented in this encounter Additional Health Concerns Assessment Noted Time PHQ-9 Depression Total Score: 7 11/13/2019 11:26 AM CD T documented as of this encounter Care Teams Professional Employer Consultant Relationship Specialty Start Date End Date Queta Fritz MD PCP - General Pediatrics 12/19/15 05/27/20 [address] [id number] Queta Fritz MD Assigned PCP 03/04/14 04/12/21 [address] [place] [address] documented as of this encounter
--- OUTSIDE RECORDS SUMMARY | 2022-04-23 23:43 | XMS_ITS | Encounter Summary ---
:2000 Author Organization [facility] Address [address] [place] [address]. [place] [address] Care Team Providers Name Role Phone Queta Fritz MD Primary Care Provider [phone] Queta Fritz MD Unavailable [phone] Encounter Details Date Type Department Care Team Description 12/20/2019 Orders Only [facility] Jama Enc ounter for [facility] [place] screening for other Specialty Clinic [address] [place] [address] viral diseases [address] (Primary Dx) [facility] [place], [place] [address], [address] [address] [place], [place] [phone] (Wo rk) [address] [phone] Social History Tobacco Use Types Packs/Day Years [...] or relatives? How often do you attend orthodox or Never 2018 buddhist services? 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 documented as of this encounter Plan of Treatment Not on filedocumented as of this encounter Results Asymptomatic COVID-19 Virus (Coronavirus) by PCR (01/06/2020 2:01 PM CDT) [facility] Method Time Signature COVID-19 Nasopharyngeal 01/06/2020 [place] Virus PCR to 2:06 PM CDT [facility] Source [facility] COVID-19 Not Detected 01/07/2020 UNIVERSITY Virus PCR to 2:55 PM CDT [facility] Comment: Collection of multiple [...] subsequently underwent single step reverse transcriptase-real t felicia polymerase chain reaction using primers to the CDC specified N1,N2 gene targets of CoV2 and human GENERAL HELPER as an internal control. A negative result [...] (Centers for Disease Control) Testing performed by [facility], Room 1-210, [address] [place] [address]. T his test was developed and its performance characteristics determined b y the [facility]. It has not been cleared or [...] Organization Address City/State/ZIP Code Phon e Number [address] [address] [facility] Room: [address] [place] [address] [place] documented in this encounter Visit Diagnoses Diagnosis Encounter for screening for other viral diseases - Primary documented in this encounter Additional Health Concerns Assessment Noted Time PHQ-9 Depression Total Score: 7 11/13/2019 11:26 AM CD T documented as of this encounter Care Teams Alteration Specialist Relationship Specialty Start Date End Date Queta Fritz MD PCP - General Pediatrics 12/19/15 05/27/20 [address] [place] [address] Queta Fritz MD Assigned PCP 03/04/14 04/12/21 [address] [place] [address] documented as of this encounter
--- OUTSIDE RECORDS SUMMARY | 2022-04-23 23:43 | XMS_ITS | Encounter Summary ---
:2000 Author Organization [facility] Address [address] [place] [address] Care Team Providers Name Role Phone Queta Fritz MD Primary Care Provider [phone] Queta Fritz MD Unavailable [phone] Reason for Visit Reason Onset Date Comments Derm Problem 11/17/2019 Medication Request 11/17/2019 Encounter Details Date Type Department Care Team Description 11/17/2019 Telephone [facility] Patricia Evans oblluiz; Clinic Krystle Huerta MD Medication Request [address] [place] [address] [place], [place] [id number] [phone] Social History Tobacco Use Types Packs/Day Years [...] or relatives? How often do you attend hoahaoism or Never 2018 hinduism services? 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 documented as of this encounter Miscellaneous Notes Telephone Encounter - Patricia Evans MD - 11/17/2019 2:25 PM CDT In extreme pain. Fluctuates and just doing prn. 1000 Tylenol 400 mg Ibuprofen Will write order to alternate Q3 hrs and give scheduled rather than prn to see if we can stay on topof her pain. Fax order to [phone]. Telephone Encounter - Patricia Braun RN - 11/17/2019 2:20 PM CDT Will route to provider for review. Telephone Encounter - Tiffani Davies - 11/17/2019 2:15 PM CDT Rachel calling back and says Mahi is complaining of so much that mom is asking if they can get arx for pain medicine. Telephone Encounter - Patricia Evans MD - 11/17/2019 12:22 PM CDT [place] back that Dr. Jama would likely be able to see her Wed at 1:30. I let Rachel know that someone would be calling to set up appt. In meantime soak in soapy water couple times per day, continue Cephalexin and Tylenol or Ibuprofen for pain as needed. Rachel is in a agreement with plan. If any big changes before then with infection spreading, worsening fevers or acting more ill to go to the ED. Telephone Encounter - Patricia Evans MD - 11/17/2019 10:13 AM CDT I called Rachel. Awoke with severe pain and hard to calm her done. Took pain medication and seems better. Says line still there warm and red. No fever. I will contact peds surgery and see what they say about this. At 19 yrs, she could potentially be seen by adult surgery down at [facility] as well. Telephone Encounter - Leti Holder - 11/17/2019 9:58 AM CDT Rachel from care home calling with an update Mahi woke up this morning and was in a lot of pain and wanted to go to the hospital Red and warm to area. Has not gotten any larger. Please call [phone] documented in this encounter Plan of Treatment Not on filedocumented as of this encounter Visit Diagnoses Not on filedocumented in this encounter Additional Health Concerns Assessment Noted Time PHQ-9 Depression Total Score: 7 11/13/2019 11:26 AM CD T documented as of this encounter Care Teams Fabrication Supervisor Relationship Specialty Start Date End Date Queta Fritz MD PCP - General Pediatrics 12/19/15 05/27/20 [address] [place] [id number] Queta Fritz MD Assigned PCP 03/04/14 04/12/21 [address] [place] [address] documented as of this encounter
--- OUTSIDE RECORDS SUMMARY | 2022-04-23 23:43 | XMS_ITS | Encounter Summary ---
:2000 Author Organization [facility] Address [address] [facility] [place] [address] Care Team Providers Name Role Phone Queta Fritz MD Primary Care Provider [phone] Queta Fritz MD Unavailable [phone] Reason for Visit Auth/Cert Specialty Diagnoses / Procedures Referred By Contact Refer red To Contact Surgery Diagnoses Pilonidal sinus Pilonidal sinus [L05.92] Ur Periop Procedures C I&D, POST SPINE, LUMB/SACR/LUMBOSAC INCISION AND DRAINAGE, pilonidal sinus [address] [place] [address] Phone: Fax: Referral ID Status Reason Start Date Expiration Date Visits Requ ested Visits Authorized [id number] 1 1 Encounter Details Date Type Department Care Team Description 11/28/2019 Anesthesia Event M [facility] Man Reynolds MD PeriOp Services [address] [facility] [address] [facility] [address] [place] [address] [place] [address] (Wo rk) Anesthesia Record Procedure Summary Procedure Name Responsible Anesthesia Start Anesthesia Stop Time Anesthesiologist Time INCISION AND Man Reynolds MD 11/28/19 0759 11/28/19 0 832 DRAINAGE, pilonidal sinus (N/A Sacrum) Events Date Time Event Comment 11/28/2019 0759 An Start 0802 An Start Data 0802 An Induction 0806 An LMA 0809 AN INCISION 0810 Anesthesia Complete 0825 LMA Removed 0825 an stop data 0832 An Stop Electronically s igned by Usha Barcenas APRN CRNA on November 28, 2019 8:32 AM Name Total midazolam 1mg/mL 2 mg fentaNYL (SUBLIMAZE) injection 100 mcg lidocaine 2% 40 mg propofol (DIPRIVAN) injection 10 mg/mL vial 200 mg rocuronium 10mg/mL 30 mg dexamethasone 4mg/mL 4 mg ondansetron 2mg/mL 4 mg sugammadex 200 mg/2ml 200 mg cefOXitin (MEFOXIN) 2 g vial to attach to NS 100 mL ba g 2 g LR 500 mL Agents Name NO HELIOX O2 N2O Air Exp Sevoflurane Exp Isoflurane Exp Desflurane Exp N2O Ins Sevoflurane Ins Isoflurane Ins Desflurane O2 Auxiliary Blood No blood administrations on file. Lines, Drains, and Airways Type Details Placement Removal Incision/Surgical Site 02/10/19; 0724; Rectum; 02/10/19 0724 by 01/09/20 0000 by 01/09/20; 0000 Eleanor Weber RN Krajacic, Jennifer Marie, APRN CRNA Incision/Surgical Site 02/10/19; 0724; Mouth; 02/10/19 0724 by 0 01/09/20 0000 by 01/09/20; 0000 Eleanor Weber RN Krajacic, Jennifer Marie, APRN CRNA Peripheral IV 03/30/19; 0733; 22 G; 03/30/19 0733 by 01/09/20 0000 by Right; Upper forearm; Mari Mcfadden RN Krajacic, Jennifer Chlorhexidine; TERRY Whittaker CRNA Transdermal pressure (j-tip); Tolerated well; MRE Peripheral IV 11/28/19; 0726; 20 G; 11/28/19 0726 by 11/28/19 1009 by Left; Hand; Romy Wade RN Krueger, Li sa D RN Chlorhexidine; Injectable Open Drain 11/28/19; 0817; 11/28/19 0817 by 01/09/20 0000 b y Buttock; 1 blue vessel Maxine Tan RN Krajac ic, Jennifer loop as drain TERRY Whittaker CRNA Incision/Surgical Site 11/28/19; 0817; 05/12/20 0817 by 01/09/20 0000 by Buttocks; 01/09/20; Maxine Tan RN Krajacic, Jennifer 0000 TERRY Whittaker CRNA documented in this encounter Social History Tobacco [...] do you attend zoroastrian or Never 2018 gnosticism services? 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 documented as of this encounter OR Notes Anesthesia Postprocedure Evaluation - Man Reynolds MD - 11/28/2019 1:17 PM CDT Anesthesia POST Procedure Evaluation Patient: Mahi Faye Gender: female Age: [age] year old : 2000 Preoperative Diagnosis: Pilonidal sinus [L05.92] Procedure(s): INCISION AND DRAINAGE, pilonidal sinus Postop Comments: No value filed. Anesthesia Type: General Disposition: Outpatient Postop Pain Control: Uneventful Sign Out: Well controlled pain PONV: No Neuro/Psych: Uneventful Sign Out: Acceptable/Baseline neuro status Airway/Respiratory: Uneventful Sign Out: Acceptable/Baseline resp. status CV/Hemodynamics: Uneventful Sign Out: Acceptable CV status Other NRE: NONE DID A NON-ROUTINE EVENT OCCUR? No Event details/Postop Comments: I personally evaluated the patient at bedside. No anesthesia-related complications noted. Patient ishemodynamically stable with adequate control of pain and nausea. Ready for discharge from PACU. All questions were answered. Man Reynolds MD Pediatric Staff Anesthesiologist [facility] Pager [phone] Phone [phone] Last Anesthesia Record Vitals: MANAGER CONSUMER INSIGHTS VITALS 11/28/2019 0755 - 11/28/2019 0855 11/28/2019 SpO2: 99 % Resp Rate (observed): 14 EKG: Sinus rhythm Last PACU Vitals: Vitals Value Taken Time BP 135/63 11/28/2019 9:15 AM Temp 36.4 ??C (97.5 ??F) 11/28/2019 9:00 AM Pulse 88 11/28/2019 9:15 AM Resp 13 11/28/2019 9:18 AM SpO2 98 % 11/28/2019 9:18 AM Temp src NIBP 126/74 11/28/2019 8:26 AM Pulse 75 11/28/2019 8:25 AM SpO2 99 % 11/28/2019 8:35 AM Resp Temp Ht Rate 68 11/28/2019 8:26 AM Temp 2 Vitals shown include unvalidated device data. Electronically Signed By: Man Reynolds MD, November 28, 2019, 1:17 PM Anesthesia Preprocedure Evaluation - Man Reynolds MD - 11/27/2019 6:23 PM CDT Anesthesia Pre-Procedure Evaluation Patient: Mahi Faye Gender: female Age: [age] year old : 2000 Preoperative Diagnosis: Pilonidal sinus [L05.92] Procedure(s): INCISION AND DRAINAGE, pilonidal sinus LABS: CBC: Lab Results Component Value Date [...] Lab Results Component Value Date HCG Negative 04/16/2018 OTHER: Lab Results Component Value Date RUDY 8.6 (L) 12/16/2018 ALBUMIN 3.6 04/26/2019 PROTTOTAL 7.5 12/16/2018 ALT 28 12/16/2018 AST 11 12/16/2018 ALKPHOS 106 12/16/2018 BILITOTAL 0.2 12/16/2018 LIPASE 83 12/16/2018 AMYLASE 41 12/16/2018 TSH 1.18 12/19/2015 CRP 7.1 04/26/2019 SED 36 (H) 11/15/2019 Preop Vitals BP Readings from Last 3 Encounters: 11/24/19 130/80 (96 %/ 92 %)* 11/22/19 (!) 148/93 (>99 %/ >99 %)* 11/15/19 131/84 (97 %/ 97 %)* *BP percentiles are based on the 2017 AAP Clinical Practice Guideline for girls Pulse Readings from Last 3 Encounters: 11/24/19 91 11/22/19 101 11/15/19 78 Resp Readings from Last 3 Encounters: 11/24/19 24 11/15/19 20 11/13/19 18 SpO2 Readings from Last 3 Encounters: 11/24/19 99% 11/15/19 100% 11/13/19 100% Temp Readings from Last 1 Encounters: 11/24/19 36.9 ??C (98.4 ??F) (Oral) Ht Readings from Last 1 Encounters: 11/24/19 1.74 m (5' 8.5) (95 %)* * Growth percentiles are based on CDC (Girls, 2-20 Years) data. Wt Readings from Last 1 Encounters: 11/24/19 78 kg (172 lb) (94 %)* * Growth percentiles are based on CDC (Girls, 2-20 Years) data. Estimated body mass index is 25.77 kg/m?? as calculated from the following: Height as of 11/24/19: 1.74 m (5' 8.5). Weight as of 11/24/19: 78 kg (172 lb). LDA: Peripheral IV 03/30/19 Right Upper forearm (Active) Number of days: 242 Past Medical History: Diagnosis Date ??? ADHD [...] negative hematology/oncology ROS PHYSICAL EXAM: Mental Status/Neuro: A/A/O Airway: Facies: Feasible Mallampati: I Mouth/Opening: Full TM distance: > 6 cm Neck ROM: Full Respiratory: Auscultation: CTAB Resp. Rate: Normal Resp. Effort: Normal CV: Rhythm: Regular Rate: Age appropriate Heart: Normal Sounds Edema: None Comments: Dental: Normal Dentition Assessment: ASA SCORE: 2 H&P: History and physical reviewed and following examination; no interval change. NPO Status: NPO Appropriate Plan: Anes. Type: General Pre-Medication: Midazolam Induction: IV (Standard) Airway: ETT; Oral Access/Monitoring: PIV Maintenance: Balanced Postop Plan: Postop Pain: Opioids Postop Sedation/Airway: Not planned PONV Management: Pediatric Risk Factors: Age 3-17, Postop Opioids Prevention: Ondansetron, Dexamethasone CONSENT: Direct conversation Plan and risks discussed with: Patient; Mother Blood Products: Consent Deferred (Minimal Blood Loss) Comments for Plan/Consent: - PIV - GA with ETT - Maintenance: balanced - Analgesia: fentanyl Risks and benefits of anesthetic approach, including but not limited to sore throat, hoarseness, mucosal injury, dental injury, bronchospasm/laryngospasm, PONV, aspiration, injury to blood vessels and/or nerves, hemodynamic and respiratory issues including potential snf consequences, bleeding, side effects of blood transfusion and postoperative delirium were discussed with parents and all questions were answered. Man Reynolds MD Pediatric Staff Anesthesiologist [facility] Pager [phone] Phone [phone] Man Reynolds MD documented in this encounter Miscellaneous Notes Anesthesia Care Transfer Note - Usha Barcenas APRN CRNA - 11/28/2019 8:31 AM CDT Patient: Mahi Faye Procedure(s): INCISION AND DRAINAGE, pilonidal sinus Diagnosis: Pilonidal sinus [L05.92] Diagnosis Additional Information: No value filed. Anesthesia Type: General Note: Airway :Face Mask Patient transferred to:PACU Comments: Report to RN, vss, IV and airway patent exchanging well on [id number] Report: Identifed thePatient, Identified the Reponsible Provider, Reviewed the pertinent medical history, Discussed the surgical course, Reviewed Intra-OP anesthesia mangement and issues during anesthesia, Set expectationsfor post- procedure period and Allowed opportunity for questions and acknowledgement of understanding Vitals: (Last set prior to Anesthesia Care Transfer) MANAGER CONSUMER INSIGHTS VITALS 11/28/2019 0755 - 11/28/2019 0831 11/28/2019 Pulse: 75 Ht Rate: 72 SpO2: 100 % Electronically Signed By: Usha Barcenas APRN MANAGER CONSUMER INSIGHTS November 28, 2019 8:31 AM documented in this encounter Plan of Treatment Not on filedocumented as of this encounter Visit Diagnoses Not on filedocumented in this encounter Administered Medications Inactive Administered Medications - up to 3 most recent administrations Medication Order MAR Action Action Date Dose Rate Site cefOXitin (MEFOXIN) 2 g vial to Given 11/28/2019 8:08 AM CDT 2 g attach to NS 100 mL bag SOL, 2 g, Intravenous, PRE-OP/PRE-PROCEDURE, Starting on e 11/28/19 at 0800, For 1 dose, Give first dose within 1 hour PRIOR to incision., Indications: Perioperative Pharmacoprophylaxis, Pre-procedure dexamethasone (DECADRON) injection Given 11/28/2019 8:17 AM CDT 4 mg Intravenous, PRN, Administer over 1 Minutes, Starting on e 11/28/19 at 0817, Anesthesia Intra-op fentaNYL (PF) (SUBLIMAZE) injection Given 11/28/2019 8:03 AM CDT 100 mcg PRN, Administer over 3-5 Minutes, Starting on 11/28/19 at 0803, Anesthesia Intra-op lactated ringers infusion New Bag 11/28/2019 8:02 AM CDT Intravenous, CONTINUOUS PRN, Anesthesia Intra-op, Starting on Wed11/28/19 at 0802, Until 11/28/19 at 0832 lidocaine 2% injection (MDV) Given 11/28/2019 8:02 AM CDT 40 mg Intravenous, PRN, Starting on Wed11/28/19 at 0802, Anesthesia Intra-op midazolam (VERSED) injection Given 11/28/2019 7:59 AM CDT 2 mg Intravenous, Administer over 2 Minutes, PRN, Starting on Wed11/28/19 at 0759, Anesthesia Intra-op ondansetron (ZOFRAN) injection Given 11/28/2019 8:17 AM CDT 4 mg Intravenous, PRN, Administer over 2-5 Minutes, Starting on Wed11/28/19 at 0817, Anesthesia Intra-op propofol (DIPRIVAN) injection 10 mg/mL v ial Given 11/28/2019 8:04 AM CDT 200 mg Intravenous, PRN, Starting on Wed11/28/19 at 0804, Anesthesia Intra-op rocuronium injection Given 11/28/2019 8:04 AM CDT 30 mg Intravenous, PRN, Starting on Wed11/28/19 at 0804, Anesthesia Intra-op sugammadex (BRIDION) injection Given 11/28/2019 8:20 AM CDT 200 mg PRN, Starting on Wed11/28/19 at 0820, Anesthesia Intra-op documented in this encounter Additional Health Concerns Assessment Noted Time PHQ-9 Depression Total Score: 7 11/13/2019 11:26 AM CD T documented as of this encounter Care Teams Railway Engineer Relationship Specialty Start Date End Date Queta Fritz MD PCP - General Pediatrics 12/19/15 05/27/20 [address] [place] [phone] Queta Fritz MD Assigned PCP 03/04/14 04/12/21 [address] [place] [address] [phone] documented as of this encounter
--- OUTSIDE RECORDS SUMMARY | 2022-04-23 23:43 | XMS_ITS | Encounter Summary ---
:2002 Author Organization [facility] Address [address] [place] [address] Care Team Providers Name Role Phone Queta Fritz MD Primary Care Provider [phone] Queta Fritz MD Unavailable [phone] Reason for Visit Reason Comments Pre-Op Exam Encounter Details Date Type Department Care Team Description 01/03/2020 Office Visit [facility] Renny Acosta, Pre op general physical exam (Primary Dx); Clinic Krystle CORLEY Pilonidal sinus; [address] Chromoso mal abnormality [address] [address] [place] [phone] (Wo rk) Social History Tobacco Use Types [...] or relatives? How often do you attend evangelical or Never 2018 taoist services? 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 documented as of this encounter Last Filed Vital Signs Vital Sign Reading Time Taken Comments Blood Pressure 125/82 01/03/2020 1:11 PM CDT Pulse 93 01/03/2020 1:11 PM CDT Temperature 37.1 ??C (98.8 ??F) 01/03/2020 1:11 PM CDT Respiratory Rate 22 01/03/2020 1:11 PM CDT Oxygen Saturation 100% 01/03/2020 1:11 PM CDT Inhaled Oxygen Concentration - - Weight 79.4 kg (175 lb) 01/03/2020 1:11 PM CDT Height 174 cm (5' 8.5) 01/03/2020 1:11 PM CDT Body Mass Index 26.22 01/03/2020 1:11 PM CDT Body Mass Index Percentile 87.41 % 01/03/2020 1:11 PM CD T Growth Chart: [facility] (Girls, 2-20 Years) documented in this encounter Patient Instructions Patient InstructionsTamika Mart, ARACELY - 01/03/2020 1:00 PM CDT Before Your Child???s Surgery or Sedated Procedure ??? Please call the doctor if there???s any change in your child???s health, including signs of a cold or flu (sore throat, runny nose, cough, rash or fever). If your child is having surgery, call the surgeon???s office. If your child is having another procedure, call your family doctor. ??? Do not give ukgu-xem-zwmqzgf medicine within 24 hours of the surgery [...] bed. documented in this encounter Progress Notes Renny Acosta MD - 01/03/2020 1:00 PM CDT [place] [address] [address] [facility] [address] Dept: [phone] PRE-OP EVALUATION: Mahi Faye is a 19 year old female, here for a pre-operative evaluation, accompanied by her mother Today's date: 01/03/2020 This report to be faxed to [facility] ([phone]) Primary Physician: Queta Fritz Type of Anesthesia Anticipated: General PRE-OP PEDIATRIC QUESTIONS 01/03/2020 What procedure is being done? removal of cyst Date of surgery / procedure: January 08 Facility or Hospital where procedure/surgery will be performed: [facility] Who is doing the procedure / surgery? Dr. Tc Jama 1. In the last week, has your child had any illness, including a cold, cough, shortness of breath orwheezing? No 2. In the last week, has your child used ibuprofen or aspirin? No 3. Does your child use herbal medications? No In the past 3 weeks, has your child been exposed to chicken pox, whooping cough, Fifth disease, measles, or tuberculosis? (Select all that apply): - 5. Has your child ever had wheezing or asthma? No 6. Does your child use supplemental oxygen or a C-PAP Machine? No 7. Has your child ever had anesthesia or been put under for a procedure? YES - several scopes, incision and drainage. 8. Has your child or anyone in your family ever had problems with anesthesia? No 9. Does your child or anyone in your family have a serious bleeding problem or easy bruising? No 10. Has your child ever had a blood transfusion? No 11. Does your child have an implanted device (for example: cochlear implant, pacemaker, SENIOR STAFF PSYCHOLOGIST shunt)? No HPI: Brief HPI related to upcoming procedure: had incision and drainage of pilonidal cyst. Surgery For excision needed. No current pain. 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 History of mild anemia, 10.5 in October. Medical History: PROBLEM LIST Patient Active Problem List Diagnosis Date Noted ??? Pilonidal disease 12/20/2019 Priority: Medium Added automatically from request for surgery [id number] ??? Pilonidal sinus 11/23/2019 Priority: Medium Added automatically from request for surgery [id number] ??? Slow transit constipation 11/16/2019 Priority: Medium [...] anesthesia ??? ORTHOPEDIC SURGERY scope knee MEDICATIONS calcium carbonate 600 mg-vitamin D 400 units (CALCIUM 600 + D) 600-400 MG-UNIT per tablet, Take 1 tablet by mouth 2 times daily METFORMIN HCL PO, Take 500 mg [...] CAPS, Take 1 capsule by mouth daily hydrOXYzine (ATARAX) 10 MG tablet, Take 1 tablet (10 mg) by mouth every 4 hours as needed for itching (Patient not taking: Reported on 01/03/2020) ibuprofen (ADVIL/MOTRIN) 200 MG tablet, Take 2 tablets (400 mg) by mouth every 8 hours as needed formild pain (Patient not taking: Reported on 12/20/2019) levonorgestrel-ethinyl estradiol (SEASONALE) 0.15-0.03 MG per tablet, Take 1 tablet by mouth daily (Patient not taking: Reported on 01/03/2020) [] sulfamethoxazole-trimethoprim (BACTRIM DS) 800-160 MG tablet, Take 1 tablet by mouth 2 times daily for 7 days No current facility-administered medications on file prior to visit. ALLERGIES Allergies Allergen Reactions ??? Nkda [No Known Drug Allergies] ??? Seasonal Allergies Review of Systems: Constitutional, eye, ENT, skin, respiratory, cardiac, and GI are normal except as otherwise noted. Physical Exam: BP 125/82 (BP Location: Right arm, Patient Position: Sitting, Cuff Size: Adult Regular) Pulse 93 Temp 98.8 ??F (37.1 ??C) (Oral) Resp 22 Ht 5' 8.5 (1.74 m) Wt 175 lb (79.4 kg) LMP 12/23/2019 (Approximate) SpO2 100% No BMI 26.22 kg/m?? 95 %ile (Z= 1.69) based on CDC (Girls, 2-20 Years) Kdmreke-ewt-uqd data based on Stature recorded on01/03/2020. 95 %ile (Z= 1.60) based on CDC (Girls, 2-20 Years) yccwkh-ifk-axw data using vitals from 01/03/2020. 87 %ile (Z= 1.15) based on CDC (Girls, 2-20 Years) BMI-for-age based on BMI available as of 01/03/2020. Blood pressure reading is in the Stage 1 hypertension range (BP >= 130/80) based on the 2017 AAP Clinical Practice Guideline. GENERAL: Active, alert, in no acute distress. SKIN: Clear. No significant rash, abnormal pigmentation [...] no masses or hepatosplenomegaly. Bowel sounds normal. Small 1 cm area healing sacral area. Diagnostics: Covid Screening pending. Assessment/Plan: Mahi Faye is a 19 year old female, presenting for: (Z01.818) Preop general physical exam (primary encounter diagnosis) Pilonidal Cyst Removal. Airway/Pulmonary Risk: None identified Cardiac Risk: None identified Hematology/Coagulation Risk: None identified Metabolic Risk: None identified Pain/Comfort Risk: None identified Approval given to proceed with proposed procedure, without further diagnostic evaluation Copy of this evaluation report is provided to requesting physician. January 03, 2020 Signed Electronically by: Renny Acosta MD [address] [address] documented in this encounter Plan of Treatment Not on filedocumented as of this encounter Visit Diagnoses Diagnosis Preop general physical exam - Primary Other specified pre-operative examinatio n Pilonidal sinus Pilonidal cyst without mention of absces s 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 documented in this encounter Additional Health Concerns Assessment Noted Time PHQ-9 Depression Total Score: 7 11/13/2019 11:26 AM CD T documented as of this encounter Care Teams Historical Society Director Relationship Specialty Start Date End Date Queta Fritz MD PCP - General Pediatrics 12/19/15 05/27/20 [address] [place] [address] [id number] Queta Fritz MD Assigned PCP 03/04/14 04/12/21 [address] [place] [address] [id number] documented as of this encounter
--- OUTSIDE RECORDS SUMMARY | 2022-04-23 23:43 | XMS_ITS | Encounter Summary ---
:2002 Author Organization [facility] Address [address] [place] [address] Care Team Providers Name Role Phone Queta Fritz MD Primary Care Provider [phone] Queta Fritz MD Unavailable [phone] Encounter Details Date Type Department Care Team Description 12/11/2019 Travel Social History Tobacco Use Types Packs/Day [...] do you attend mandaeism or Never 2018 mormonism services? 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
--- OUTSIDE RECORDS SUMMARY | 2022-04-23 23:43 | XMS_ITS | Encounter Summary ---
:2002 Author Organization [facility] Address [address] [place] [address]. [place] [address] Care Team Providers Name Role Phone Queta Fritz MD Primary Care Provider [phone] Queta Fritz MD Unavailable Encounter Details Date Type Department Care Team Description 12/07/2019 Telephone [facility] Viki Ruggiero, BIT SHARPENER [facility] [address] [address] [facility] [place] [phone] Social History Tobacco Use Types Packs/Day Years [...] do you attend orthodoxy or Never 2018 islam services? 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 documented as of this encounter Miscellaneous Notes Telephone Encounter - Norma Ruggiero APRN CNP - 12/07/2019 4:59 PM CDT D: Health coordinator, Rachel, called from Mahi's [facility] because Mahi reported that her drain is moving. Mahi has a vessel loop drain in place and it is expected that it can move. Purposeand function of drain was explained to Rachel. She verbalized understanding. A; drain functioning as expected. P: follow up in clinic with Dr. Jama as planned. documented in this encounter Plan of Treatment Not on filedocumented as of this encounter Visit Diagnoses Not on filedocumented in this encounter Additional Health Concerns Assessment Noted Time PHQ-9 Depression Total Score: 7 11/13/2019 11:26 AM CD T documented as of this encounter Care Teams Grocery Store Courtesy Clerk Relationship Specialty Start Date End Date Queta Fritz MD PCP - General Pediatrics 12/19/15 05/27/20 [address] [place] [address] Queta Fritz MD Assigned PCP 03/04/14 04/12/21 [address] [place] [phone] documented as of this encounter
--- OUTSIDE RECORDS SUMMARY | 2022-04-23 23:43 | XMS_ITS | Encounter Summary ---
:2002 Author Organization [facility] Address [address] [place] [address] Care Team Providers Name Role Phone Queta Fritz MD Primary Care Provider [phone] Queta Fritz MD Unavailable [phone] Encounter Details Date Type Department Care Team Description 12/11/2019 Virtual Visit [facility] Virtual I nfected incision (Primary Dx); Urgent Care Itching; [address] [place] [address] Social History Tobacco Use Types Packs/Day Years [...] or relatives? How often do you attend jain or Never 2018 taoism services? 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 documented as of this encounter Patient Instructions Patient InstructionsTea Lee PA-C - 12/11/2019 1:30 PM CDT I will treat for infection and itching and have you cut back slightly on baths to help with skin dryness and itching. Follow up with surgery as scheduled or call back sooner if symptoms are worsening. documented in this encounter Progress Notes Tea Lee PA-C - 12/11/2019 1:30 PM CDT Mahi Faye is a 19 year old female who is being evaluated via a billable telephone visit. The parent/guardian has been notified of following: This telephone visit will be conducted via a call between you, your child and your child's physician/provider. We have found that certain health care needs can be provided without the need for a physical exam. This service lets us provide the care you need with a short phone conversation. If a prescription is necessary we can send it directly to your pharmacy. If lab work is needed we can place an order for that and you can then stop by our lab to have the test done at a later time. Telephone visits are billed at different rates depending on your insurance coverage. During this emergency period, for some insurers they may be billed the same as an in-person visit. Please reach out to your insurance provider with any questions. If during the course of the call the physician/provider feels a telephone visit is not appropriate, you will not be charged for this service. Parent/guardian has given verbal consent for Telephone visit? Yes How would you like to obtain your AVS? MyChart Subjective Mahi Faye is a 19 year old female who presents via phone visit today for the following health issues: HPI Patient is having a virtual visit for concern about a surgical site that her and her mother believe may be infected. She is living in a shelter and they will also need to have a letter written for the shelter on any orders today. They note that the area of the I and D for her pilonidal cyst has been oozing a thick creamy and foul smelling ,discharge the last several days. Patient also complains of poor pain control and severe itchiness to the area. She says that the shelter staff is not letting her have pain meds as often as she feels like she needs them. She is scheduled to see the surgeon again next week. She has not been having fevers or chills. BP Readings from Last 3 Encounters: 11/28/19 111/74 (44 %, Z = -0.14 / 76 %, Z = 0.71)* 11/24/19 130/80 (96 %, Z = 1.74 / 92 %, Z = 1.40)* 11/22/19 (!) 148/93 (>99 %, Z >2.33 / >99 %, Z >2.33)* *BP percentiles are based on the 2017 AAP Clinical Practice Guideline for girls Wt Readings from Last 3 Encounters: 11/28/19 77.9 kg (171 lb 11.8 oz) (94 %, Z= 1.55)* 11/24/19 78 kg (172 lb) (94 %, Z= 1.55)* 11/22/19 78.2 kg (172 lb 6.4 oz) (94 %, Z= 1.56)* * Growth percentiles are based on CDC (Girls, 2-20 Years) data. Reviewed and updated as needed this visit by Provider Tobacco Allergies Meds Problems Med Hx Surg Hx Fam Hx Soc Hx Review of Systems Constitutional, HEENT, cardiovascular, pulmonary, GI, , musculoskeletal, neuro, skin, endocrine and psych systems are negative, except as otherwise noted. Objective Reported vitals: There were no vitals taken for this visit. healthy, alert and no distress PSYCH: Alert and oriented times 3; coherent speech, normal rate and volume, able to articulate logical thoughts, able to abstract reason, no tangential thoughts, no hallucinations or delusions Her affect is normal RESP: No cough, no audible wheezing, able to talk in full sentences Remainder of exam unable to be completed due to telephone visits Diagnostic Test Results: Labs reviewed in [facility] Assessment/Plan: ASSESSMENT AND PLAN ICD-10-CM 1. Infected incision T81.49XA sulfamethoxazole-trimethoprim (BACTRIM DS) 800-160 MG tablet 2. Itching L29.9 hydrOXYzine (ATARAX) 10 MG tablet 3. Pilonidal sinus L05.92 I will treat for possible infection to her surgical site and have add some atarax to help with her extreme itching. I will have them use tylenol and ibuprofen alternating as needed for pain control andhave them follow up with surgery as scheduled. Sooner if symptoms are worsening or persisting. I did write a letter for her shelter but they report an inabiity to access this online. I would have them go by [facility] and request a print out of the letter at that location. Return in about 1 week (around 12/18/2019), or if symptoms worsen or fail to improve. Phone call duration: 27 minutes Tea Lee PA-C documented in this encounter Plan of Treatment Not on filedocumented as of this encounter Visit Diagnoses Diagnosis Infected incision - Primary Other postoperative infection Itching Unspecified pruritic disorder Pilonidal sinus Pilonidal cyst without mention of absces s documented in this encounter Additional Health Concerns Assessment Noted Time PHQ-9 Depression Total Score: 7 11/13/2019 11:26 AM CD T documented as of this encounter Care Teams Trucking Manager Relationship Specialty Start Date End Date Queta Fritz MD PCP - General Pediatrics 12/19/15 05/27/20 [address] [place] [address] [phone] Queta Fritz MD Assigned PCP 03/04/14 04/12/21 [address] [place] [address] documented as of this encounter
--- OUTSIDE RECORDS SUMMARY | 2022-04-23 23:43 | XMS_ITS | Encounter Summary ---
:2002 Author Organization [facility] Address [address] [place] [address] Care Team Providers Name Role Phone Queta Fritz MD Primary Care Provider [phone] Queta Fritz MD Unavailable [phone] Encounter Details Date Type Department Care Team Description 11/22/2019 Travel Social History Tobacco Use Types Packs/Day [...] or relatives? How often do you attend religious or Never 2018 gnosticist services? 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 documented as of this encounter Plan of Treatment Not on filedocumented as of this encounter Visit Diagnoses Not on filedocumented in this encounter Additional Health Concerns Assessment Noted Time PHQ-9 Depression Total Score: 7 11/13/2019 11:26 AM CD T documented as of this encounter Care Teams Farm Laborer Relationship Specialty Start Date End Date Queta Fritz MD PCP - General Pediatrics 12/19/15 05/27/20 [address] [place] [address] Queta Fritz MD Assigned PCP 03/04/14 04/12/21 [address] [place] [address] documented as of this encounter
--- OUTSIDE RECORDS SUMMARY | 2022-04-23 23:43 | XMS_ITS | Encounter Summary ---
:2002 Author Organization [facility] Address [address] [place] [address]. [place] [address] Care Team Providers Name Role Phone Queta Fritz MD Primary Care Provider [phone] Queta Fritz MD Unavailable Reason for Visit Reason Onset Date Comments Appointment 11/20/2019 Encounter Details Date Type Department Care Team Description 11/20/2019 Telephone [facility] Norm MorenomontezPatricia, Appointment Satish [place] [address] [address] [address] [place] [address] ANGEL [place]YONS [id number] (Wo rk) Social History Tobacco Use Types [...] do you attend jain or Never 2018 adventism services? 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 documented as of this encounter Miscellaneous Notes Telephone Encounter - Patricia Evans MD - 11/20/2019 2:06 PM CDT Sent message back to surgery group who said Dr. Jama could see Wed at 1:30. No appt shows up in Epic. Will let you know once I hear back. Telephone Encounter - Tiffani Davies - 11/20/2019 1:49 PM CDT Rachel calling back to let us know they have not heard from the surgeons office about the location of the appointment. Rachel phone [phone]. documented in this encounter Plan of Treatment Not on filedocumented as of this encounter Visit Diagnoses Not on filedocumented in this encounter Additional Health Concerns Assessment Noted Time PHQ-9 Depression Total Score: 7 11/13/2019 11:26 AM CD T documented as of this encounter Care Teams Judicial Administrative Assistant Relationship Specialty Start Date End Date Queta Fritz MD PCP - General Pediatrics 12/19/15 05/27/20 [address] [place] [address] [phone] Queta Fritz MD Assigned PCP 03/04/14 04/12/21 [address] [place] [address] documented as of this encounter
--- OUTSIDE RECORDS SUMMARY | 2022-04-23 23:43 | XMS_ITS | Encounter Summary ---
:2002 Author Organization [facility] Address [address] [place] [address] Care Team Providers Name Role Phone Queta Fritz MD Primary Care Provider [phone] Queta Fritz MD Unavailable [phone] Encounter Details Date Type Department Care Team Description 11/15/2019 Travel Social History Tobacco Use Types Packs/Day [...] do you attend restorationist or Never 2018 mandaen services? Do you [...] at Date Recorded Female 09/04/2021 9:00 PM HELIUM ARC WELDER COVID-19 Exposure Response Date Recorded In [...] documented as of this encounter Care Teams Beef Trimmer Relationship Specialty Start Date End Date Queta Fritz MD PCP - General Pediatrics 12/19/15 05/27/20 [address] [place] [address] Queta Fritz MD Assigned PCP 03/04/14 04/12/21 [address] [place] [address] documented as of this encounter
--- OUTSIDE RECORDS SUMMARY | 2022-04-23 23:43 | XMS_ITS | Encounter Summary ---
:2002 Author Organization [place] Address [address] [place] [address]. [place] [address] Care Team Providers Name Role Phone Queta Fritz MD Primary Care Provider [phone] Queta Fritz MD Unavailable [phone] Encounter Details Date Type Department Care Team Description 11/23/2019 Orders Only [facility] Tc Jama Enc ounter for [facility] Pediatric MD screening for other Specialty Clinic [address] [place] [address] viral diseases [address] 505 (Primary Dx) [facility] Clinic [place], [place] [address] Bldg, 3rd Flr [address] [place], [place] [phone] (Wo rk) [address] [phone] Social History Tobacco Use Types Packs/Day Years [...] do you attend latter-day or Never 2018 evangelical services? 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 documented as of this encounter Plan of Treatment Not on filedocumented as of this encounter Results COVID-19 Virus (Coronavirus) by PCR Nasopharyngeal (11/25/2019 11:11 AM CDT) [facility] Method Time Signature COVID-19 Nasopharyngeal 11/25/2019 [place] Virus PCR to 12:14 PM [facility] Source COVID-19 Not Detected 11/26/2019 [facility] Virus PCR to 2:28 PM CDT [facility] [employer] Result CENTER LABORATORY Comment: Collection of multiple [...] N1,N2 gene targets of CoV2 and human MORTGAGE PROFESSIONAL as an internal control. A negative result [...] (Centers for Disease Control) Testing performed by [facility] [employer] [place], Room 1-210, [address] [place] [address], [place], [place]? [address].? This test was developed and its performance characteristics determined b y the [facility]. It has not been cleared or [...] Location / / Volume Laterality Specimen from 11/25/2019 11:11 11/25/2019 nasopharyngeal AM CDT 12:14 PM CDT structure (specimen) Tc Jama MD LAB - MICRO GENERAL ORDERABL ES Performing Organization Address City/State/ZIP Code Phon e Number [address] [address] [facility] Room: [address] [address] [place] documented in this encounter Visit Diagnoses Diagnosis Encounter for screening for other viral diseases - Primary documented in this encounter Additional Health Concerns Assessment Noted Time PHQ-9 Depression Total Score: 7 11/13/2019 11:26 AM CD T documented as of this encounter Care Teams Policy Advisor Relationship Specialty Start Date End Date Queta Fritz MD PCP - General Pediatrics 12/19/15 05/27/20 [address] [place] [address] [id number] Queta Fritz MD Assigned PCP 03/04/14 04/12/21 [address] [place] [address] [phone] documented as of this encounter
--- OUTSIDE RECORDS SUMMARY | 2022-04-23 23:43 | XMS_ITS | Encounter Summary ---
:2002 Author Organization [place] Address [address] [place] [address] Care Team Providers Name Role Phone Queta Fritz MD Primary Care Provider [phone] Queta Fritz MD Unavailable [phone] Encounter Details Date Type Department Care Team Description 11/28/2019 Travel Social History Tobacco Use Types Packs/Day [...] or relatives? How often do you attend gnosticism or Never 2018 buddhist services? 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
--- OUTSIDE RECORDS SUMMARY | 2022-04-23 23:43 | XMS_ITS | Encounter Summary ---
:2002 Author Organization [address] [place] [address] Care Team Providers Name Role Phone Queta Fritz MD Primary Care Provider [phone] Queta Fritz MD Unavailable [phone] Reason for Visit Reason Comments COVID Testing Encounter Details Date Type Department Care Team Description 11/25/2019 Office Visit [facility] Tc Jama Enc ounter for Urgent Care Denise CORLEY screening for other [address] viral diseases [address] [place] [phone] Social History Tobacco Use Types Packs/Day Years [...] or relatives? How often do you attend sikhism or Never 2018 jew services? 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 documented as of this encounter Progress Notes Alem Russell CMA - 11/25/2019 11:00 AM CDT Provided patient with COVID-19 handout. documented in this encounter Plan of Treatment Not on filedocumented as of this encounter Procedures Procedure Name Priority Date/Time Associated Diagnosis Comme nts COVID-19 VIRUS Routine 11/25/2019 11:11 AM Encounter for Resul ts for this (CORONAVIRUS) BY CDT screening for other proc edure are in PCR viral diseases the results section. documented in this encounter Results COVID-19 Virus (Coronavirus) by PCR Nasopharyngeal (11/25/2019 11:11 AM CDT) [facility] Method Time Signature COVID-19 Nasopharyngeal 11/25/2019 [place] Virus PCR to 12:14 PM [facility] [place] - CDT [facility] Source COVID-19 Not Detected 11/26/2019 [facility] Virus PCR to 2:28 PM CDT [place] [facility] - GENOMICS Result CENTER LABORATORY Comment: [...] N1,N2 gene targets of CoV2 and human CANNERY WORKER as an internal control. A negative result [...] performed by General acute hospital, Room 1-210, [address] [place] [address]? [address].? This test was developed and its performance characteristics determined b y the [facility]. It has not been cleared or appr [...] Organization Address City/State/ZIP Code Phon e Number [address] [address] [facility] Room: [address] [place] [address] [place] documented in this encounter Visit Diagnoses Diagnosis Encounter for screening for other viral diseases documented in this encounter Additional Health Concerns Assessment Noted Time PHQ-9 Depression Total Score: 7 11/13/2019 11:26 AM CD T documented as of this encounter Care Teams Per Diem Rn Relationship Specialty Start Date End Date Queta Fritz MD PCP - General Pediatrics 12/19/15 05/27/20 [address] [address] Queta Fritz MD Assigned PCP 03/04/14 04/12/21 [address] [address] documented as of this encounter
--- OUTSIDE RECORDS SUMMARY | 2022-04-23 23:43 | XMS_ITS | Encounter Summary ---
:2002 Author Organization [place] Address [address] [place] [address] Care Team Providers Name Role Phone Queta Fritz MD Primary Care Provider [phone] Queta Fritz MD Unavailable [phone] Encounter Details Date Type Department Care Team Description 12/28/2019 Travel Social History Tobacco Use Types Packs/Day [...] do you attend rastafari or Never 2018 episcopalian services? 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 documented as of this encounter Plan of Treatment Not on filedocumented as of this encounter Visit Diagnoses Not on filedocumented in this encounter Additional Health Concerns Assessment Noted Time PHQ-9 Depression Total Score: 7 11/13/2019 11:26 AM CD T documented as of this encounter Care Teams Nurse Sitter Relationship Specialty Start Date End Date Queta Fritz MD PCP - General Pediatrics 12/19/15 05/27/20 [address] [place] [address] Queta Fritz MD Assigned PCP 03/04/14 04/12/21 [address] [place] [address] documented as of this encounter
--- OUTSIDE RECORDS SUMMARY | 2022-04-23 23:43 | XMS_ITS | Encounter Summary ---
:2002 Author Organization [place] Address [address] [place] [address] Care Team Providers Name Role Phone Queta Fritz MD Primary Care Provider [phone] Queta Fritz MD Unavailable [phone] Tc Jama MD Unavailable Tc Jama MD Unavailable Khalida Beyer MD Primary Care Provider Rosario Noe APRN CNM Unavailable [phone] Eda Duarte MD Unavailable Mike Sherwood MD Unavailable [phone] Navid Paige MD Unavailable Norma Ruggiero APRN STEAM FINISHER Unavailable [phone] Queta Fritz MD Unavailable [phone] Norma Ruggiero APRN STEAM FINISHER Unavailable [phone] Ref-Primary, Physician Primary Care Provider [phone] Alber Estrada PA-C Unavailable [phone] Encounter Details Date Type Department Care Team Description 11/22/2019 [facility] Tc Jama MD Pediatric Specialty Clinic [facility]0 [place] [address] [address] [address] [facility] [place] [phone] Social History Tobacco Use Types Packs/Day Years [...] or relatives? How often do you attend mandaen or Never 2018 yazdanism services? 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 documented as of this encounter Miscellaneous Notes Telephone Encounter - Norma Ruggiero APRN CNP - 11/23/2019 9:58 AM CDT I returned call and answered questions of [facility]. Telephone Encounter - Janet Gillespie - 11/22/2019 4:03 PM CDT [facility] Phone Message May a detailed message be left on voicemail: yes Reason for Call: Other: Patient Health Transplant Immunologist from [facility] is calling requesting to have Dr. Jama's nurse call her back to discuss appointment today. Mahi was suggested by PCP to take alternating tylenol and ibuprofen to help with pain and would like to know if they should continue that or what is advised. Action Taken: Other: P PEDS SURGERY Travel Screening: Not Applicable documented in this encounter Plan of Treatment Not on filedocumented as of this encounter Visit Diagnoses Not on filedocumented in this encounter Additional Health Concerns Infection Onset Date Last Indicated Resolved Time Rule Out COVID-19 06/07/2020 06/07/2020 06/08/2020 7:3 4 PM FOCUSING MACHINE OPERATOR Rule Out COVID-19 08/23/2021 08/23/2021 08/23/2021 9:1 7 PM FOCUSING MACHINE OPERATOR Rule Out COVID-19 04/21/2022 04/21/2022 04/21/2022 8:5 7 PM CDT Assessment Noted Time PHQ-9 Depression Total Score: 7 11/13/2019 11:26 AM CD T documented as of this encounter Care Teams System Administration Manager Relationship Specialty Start Date End Date Queta Fritz PCP - General Pediatrics 12/19/15 05/27/20 MD Liza [address] [place] [address] [phone] Khalida Beyer MD PCP - General Psychiatry 05/28/20 08/22/21 No Ref-Primary, PCP - General 08/23/21 Physician Queta Fritz Assigned PCP 03/04/14 04/12/21 MD Liza [address] [place] [address] [phone] Tc Jama MD Pediatric Surgery 02/14/20 [facility] [place] [address] Tc Jama, Assigned Pediatric 05/10/20 Specialist Provider [facility] BEKAH MOLINA [address] [address] Rosario Noe, Assigned OBGYN Provider 07/21/20 01/16/22 SOLDERER TORCH CNM [address] [place], [place] [phone] Eda Duarte Assigned Surgical Provider 10/02/20 MD Alex 420 [facility] 394 [place], [place] 553475 Mike Sherwood Assigned Sleep Provider 01/31/21 MD Navid [address] [place] [address] [phone] Navid Paige MD Assigned Musculoskeletal 03/16/21 909 [facility] Provider [place], [place] [phone] Norma Ruggiero, Assigned PCP 04/13/21 05/24/21 SOLDERER TORCH STEAM FINISHER [facility] [facility] 505 [place], [place] 561784 Queta Fritz Assigned PCP 05/25/21 07/26/21 MD Liza [address] [facility] 100 [place], [place] [phone] Norma Ruggiero, Assigned PCP 07/27/21 09/06/21 SOLDERER TORCH STEAM FINISHER 2450 [facility] 505 [place], [place] 0[address]884 Alber Estrada Assigned PCP 09/07/21 KARIN Lagunas [address] [place], [place] [phone] documented as of this encounter
--- OUTSIDE RECORDS SUMMARY | 2022-04-23 23:44 | XMS_ITS | Encounter Summary ---
:2002 Author Organization [place] Address [address] [place] [address] Care Team Providers Name Role Phone Queta Fritz MD Primary Care Provider [phone] Queta Fritz MD Unavailable [phone] Reason for Visit Reason Onset Date Comments Musculoskeletal Problem 11/13/2019 Encounter Details Date Type Department Care Team Description 11/13/2019 Virtual Visit [facility] Queta Fritz e buttock pain (Primary Dx); Clinic Krystle De Jesus MD Anxiety; [address] d [facility] 100 [place] [address] Social History Tobacco Use Types Packs/Day Years [...] or relatives? How often do you attend alevism or Never 2018 advent services? 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 documented as of this encounter Progress Notes Queta Fritz MD - 11/13/2019 11:45 AM CDT Mahi Faye is a 19 year old female who is being evaluated via a billable telephone visit. The patient has been notified of following: This telephone visit will be conducted via a call between you and your physician/provider. We have found that certain health [...] will not be charged for this service. Patient has given verbal consent for Telephone visit? Yes How would you like to obtain your AVS? Mail a copy Subjective Mahi Faye is a 19 year old female with a history of chromosomal abnormality and intellectual delay as well as anxiety who is well known to me. She is followed by psychiatry for anxiety and lives [place] [facility] [place] and reaches out for help with the following health issues: HPI Buttock Pain Duration of complaint: began three days and is getting much worse yesterday Specific cause: not known but has started riding a bike a bit. Of note has had a MUCH less severe and very breif pain in the same area after riding bike this season. Of note, Mahi does not handle pain well. It makes her anxious for her health and does have a tendency to exaggerate. Today I also spoke to staff at [place] who state that much of the time Mahi is standing without obvious discomfort. When she does sit, which she does reluctantly, she will roll onto her hip. Mahi will bend forward about 45 degrees when she complains of pain and is obviously anxious at these times. Description: Location of pain: gluteus bilateral Character of pain: sharp and waxing and waning Pain radiation:none Intensity: severe, 40/10 Accompanying Signs & Symptoms: Fever: none in 80 hours Numbness or weakness in legs: no Dysuria or Hematuria: no Bowel or bladder incontinence:no, neither. but there is pain when she pushing to stool and during the stooling stools are soft History: Any injury (lifting, bending, twisting): no Work Injury: no History of back problems: no prior back problems Any previous MRI or X-rays: no Any history of back surgery: no Any cancer history: no Precipitating factors: Worsened by: Sitting and Walking. Alleviating factors: Improved by: A bit better when standing with a forward bend Therapies Tried and outcome: rest, cold therapy, heat therapy and NSAIDS Recent history of fever and no other symptoms ( carefully did a ROS for that time period) Evaluated by virtual UC 10 days ago and advised Covid Testing which was negative Fever to 102+ through the Did not develop SOB. Since last day of fever 23 APR Patient Active Problem List Diagnosis ??? Chromosomal abnormality ??? Learning disability ??? Anxiety ??? Insomnia ??? Aggression with talk of suicide/homicide ??? Suicidal ideation ??? Development delay ??? Mild anemia Past Surgical History: Procedure Laterality Date ??? COLONOSCOPY N/A 02/10/2019 Procedure: COLONOSCOPY with biopsies; Surgeon: Vikas Martin MD; Location: [facility] OR ??? ESOPHAGOSCOPY, GASTROSCOPY, DUODENOSCOPY (EGD), COMBINED N/A 02/10/2019 Procedure: ESOPHAGOGASTRODUODENOSCOPY with biopsies; Surgeon: Vikas Martin MD; Location: [facility] OR ??? HC CYSTOURETHROSCOPY 05/04/2005 Cysto and urethral dilation. ??? INCISION AND DRAINAGE TONSIL, COMBINED 2013 under general anesthesia ??? ORTHOPEDIC SURGERY scope knee Social History Tobacco Use ??? Smoking status: Never Smoker ??? Smokeless tobacco: Never Used ??? Tobacco comment: no smokers in household Substance Use Topics ??? Alcohol use: No Frequency: Never Drinks per session: Patient refused Binge frequency: Never Family History Problem Relation Age of Onset ??? Genetic Disorder Father ALS ??? No Known Problems Brother ??? Cancer Paternal Grandfather lung ??? Anesthesia Reaction Other Negative Current Outpatient Medications Medication Sig Dispense Refill ??? acetaminophen (TYLENOL) 500 MG tablet Take 1-2 tablets (500-1,000 mg) by mouth every 4 hours as needed for pain 100 tablet 11 ??? calcium carbonate 600 mg-vitamin D 400 units (CALCIUM 600 + D) 600-400 MG- UNIT per tablet Take 1tablet by mouth 2 times daily ??? levonorgestrel-ethinyl estradiol (SEASONALE) 0.15-0.03 MG per tablet Take 1 tablet by mouth daily 84 tablet 3 ??? METFORMIN HCL PO Take 500 mg by mouth 2 times daily ??? QUEtiapine ER (SEROQUEL XR) 200 MG 24 hr tablet Take 1 tablet (200 mg) by mouth At Bedtime With 300 to make 500 mg ??? QUEtiapine ER (SEROQUEL XR) 300 MG 24 hr tablet Take 1 tablet (300 mg) by mouth At Bedtime With 200 to make 500 mg ??? Vitamin D, Cholecalciferol, 1000 units CAPS Take 1 capsule by mouth daily Allergies Allergen Reactions ??? Nkda [No Known Drug Allergies] ??? Seasonal Allergies Reviewed and updated as needed this visit by Provider Review of Systems ROS COMP: Constitutional, HEENT, cardiovascular, pulmonary, gi and gu systems are negative, except as otherwise noted. Objective Reported vitals: LMP 10/23/2019 healthy, alert PSYCH: Alert and oriented times 3; coherent speech, slightly rapid rate and slightly high volume, able to articulate logical thoughts, able to abstract reason, no tangential thoughts, no hallucinations or delusions Her affect is mildly anxious and relieved to be getting good care RESP: No cough, no audible wheezing, able to talk in full sentences Remainder of exam unable to be completed due to telephone visits Assessment/Plan: Encounter Diagnoses Name Primary? Acute buttock pain Yes ??? Anxiety ??? Development delay Return today (on 11/13/2019) for follow up visit. Phone call duration: 40 minutes Queta Fritz MD documented in this encounter Plan of Treatment Not on filedocumented as of this encounter Visit Diagnoses Diagnosis Acute buttock pain - Primary Mylagia and myositis, unspecified Anxiety Anxiety state, unspecified Development delay Unspecified delay in development documented in this encounter Additional Health Concerns Assessment Noted Time PHQ-9 Depression Total Score: 7 11/13/2019 11:26 AM CD T documented as of this encounter Care Teams Guide Foreign Tour Relationship Specialty Start Date End Date Queta Fritz MD PCP - General Pediatrics 12/19/15 05/27/20 [address] [phone] Queta Fritz MD Assigned PCP 03/04/14 04/12/21 [address] [place] [phone] documented as of this encounter
--- OUTSIDE RECORDS SUMMARY | 2022-04-23 23:44 | XMS_ITS | Encounter Summary ---
:2002 Author Organization [place] Address [address] [place] [address] Care Team Providers Name Role Phone Queta Fritz MD Primary Care Provider [phone] Queta Fritz MD Unavailable [phone] Reason for Visit Reason Onset Date Comments Medication Question 02/28/2019 Medications Taken La te Encounter Details Date Type Department Care Team Description 02/28/2019 Telephone [facility] Queta Fritz Medic ation Question Clinic Krystle De Jesus MD (Medications Taken [address]) [place], [place] [phone] [place] [address] (Wo rk) Social History Tobacco Use Types Packs/Day Years Used Date Never Smoker Smokeless Tobacco: Never Used Comments: no smokers [...] do you attend anglican or Never 2018 rastafarian services? 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 And this person lives in [place]. Spoke with Willow at patient's halfway ([phone]). She states she was just calling as an FYI. And will continue to give patient medications as directed. Telephone Encounter - Patricia Braun RN - 02/28/2019 12:24 PM CDT Left a voicemail asking healthcare manager to call the clinic back. Need to further assess. Telephone Encounter - Marline Tabares - 02/28/2019 12:15 PM CDT Pt's care provider calling to report that patient took medications an hour and a half later than normal on 02/10/19. They would like to know if there are any health consequences due to this. Care provider can be reached at [phone]. Please advise. Thanks. documented in this encounter Plan of Treatment Not on filedocumented as of this encounter Visit Diagnoses Not on filedocumented in this encounter Additional Health Concerns Assessment Noted Time PHQ-9 Depression Total Score: 8 12/16/2018 4:14 PM CDT documented as of this encounter Care Teams Automation Qa Lead Relationship Specialty Start Date End Date Queta Fritz MD PCP - General Pediatrics 12/19/15 05/27/20 [address] [place] [address] Queta Fritz MD Assigned PCP 03/04/14 04/12/21 [address] [place] [address] documented as of this encounter
--- OUTSIDE RECORDS SUMMARY | 2022-04-23 23:44 | XMS_ITS | Encounter Summary ---
:2000 Author Organization [facility] Address [address] [place] [address]. [place] [address] Care Team Providers Name Role Phone Queta Fritz MD Primary Care Provider [phone] Queta Fritz MD Unavailable [phone] Encounter Details Date Type Department Care Team Description 07/26/2019 Medical Correspondence [facility] Scan, STANDING ORDER FOR Health Info Mgmt Non-Provider COMFORT MED ICATION [facility] [address] [place] [id number] Social History Tobacco Use Types Packs/Day [...] or relatives? How often do you attend pentecostalism or Never 2018 nondenominational services? Do you belong to any clubs or No 12/07/2018 organizations such as pentecostalism groups, unions, fraternal or athletic groups, or [...] at Date Recorded Female 09/04/2021 9:00 PM [employer] documented as of this encounter Plan of Treatment Not on filedocumented as of this encounter Visit Diagnoses Not on filedocumented in this encounter Additional Health Concerns Assessment Noted Time PHQ-9 Depression Total Score: 19 04/26/2019 5:13 PM CD T documented as of this encounter Care Teams Stock Letterer Relationship Specialty Start Date End Date Queta Fritz MD PCP - General Pediatrics 12/19/15 05/27/20 [address] [place] [id number] Queta Fritz MD Assigned PCP 03/04/14 04/12/21 [address] [place] [id number] documented as of this encounter
--- OUTSIDE RECORDS SUMMARY | 2022-04-23 23:44 | XMS_ITS | Encounter Summary ---
:2000 Author Organization [facility] Address [address] [facility] [place] [address] Care Team Providers Name Role Phone Queta Fritz MD Primary Care Provider [phone] Queta Fritz MD Unavailable [phone] Reason for Referral Diagnostic Imaging XR (Routine) - Closed Specialty Diagnoses / Procedures Referred By Contact Refer red To Contact Diagnoses Pain in buttock Patricia Evans MD Procedures XR Lumbar Spine 2/3 Views [id number] [address] [place] [id number] Referral ID Status Reason Start Date Expiration Date Visits Requ ested Visits Authorized [id number] Closed 11/15/2019 11/14/2020 1 1 Reason for Visit Reason Comments Fever Encounter Details Date Type Department Care Team Description 11/15/2019 Office Visit [facility] Patricia Evans Celluli tis of buttock (Primary Dx); Clinic Krystle Huerta MD Pain in buttock; [address] Development delay; [place] [address] Slow transit constipation; Krystle DC [phone] (Wo rk) Mild anemia [id number] [phone] Social History Tobacco Use Types Packs/Day Years [...] do you attend mandaen or Never 2018 restoration services? Do you [...] at Date Recorded Female 09/04/2021 9:00 PM [employer]GRAM[employer] COVID-19 Exposure Response Date Recorded In the last month, have you been in contact with No / Unsure 11/15/2019 3:37 PM CDT someone who was confirmed or suspected to have Coronavirus / COVID-19? documented as of this encounter Last Filed Vital Signs Vital Sign Reading Time Taken Comments Blood Pressure 131/84 11/15/2019 4:05 PM CDT Pulse 78 11/15/2019 4:05 PM CDT Temperature 36.7 ??C (98 ??F) 11/15/2019 4:05 PM CDT Respiratory Rate 20 11/15/2019 4:05 PM CDT Oxygen Saturation 100% 11/15/2019 4:05 PM CDT Inhaled Oxygen Concentration - - Weight 78 kg (172 lb) 11/15/2019 4:05 PM CDT Height 174 cm (5' 8.5) 11/15/2019 4:05 PM CDT Body Mass Index 25.77 11/15/2019 4:05 PM CDT Body Mass Index Percentile 86.06 % 11/15/2019 4:05 PM CD T Growth Chart: [facility] (Girls, 2-20 Years) documented in this encounter Patient Instructions Patient InstructionsPatricia Evans MD - 11/15/2019 3:20 PM CDT Results for orders placed or performed in visit on 11/15/19 CBC with platelets and differential Status: Abnormal Result Value Ref Range WBC 9.6 4.0 - 11.0 10e9/L RBC Count 3.88 3.7 - 5.3 10e12/L Hemoglobin 10.3 (L) 11.7 - 15.7 g/dL Hematocrit 32.2 (L) 35.0 - 47.0 % MCV 83 77 - 100 fl MCH 26.5 26.5 - 33.0 pg MCHC 32.0 31.5 - 36.5 g/dL RDW 13.6 10.0 - 15.0 % Platelet Count 356 150 - 450 10e9/L % Neutrophils 67.3 % % Lymphocytes 24.2 % % Monocytes 8.0 % % Eosinophils 0.4 % % Basophils 0.1 % Absolute Neutrophil 6.5 1.3 - 7.0 10e9/L Absolute Lymphocytes 2.3 1.0 - 5.8 10e9/L Absolute Monocytes 0.8 0.0 - 1.3 10e9/L Absolute Eosinophils 0.0 0.0 - 0.7 10e9/L Absolute Basophils 0.0 0.0 - 0.2 10e9/L Diff Method Automated Method ESR: Erythrocyte sedimentation rate Status: Abnormal Result Value Ref Range Sed Rate 36 (H) 0 - 20 mm/h *UA reflex to Microscopic and Culture ([facility] (except [place] and [place]) Status: Abnormal Specimen: Midstream Urine Result Value Ref Range Color Urine Yellow Appearance Urine Slightly Cloudy Glucose Urine Negative NEG^Negative mg/dL Bilirubin Urine Small (A) NEG^Negative Ketones Urine Trace (A) NEG^Negative mg/dL Specific [place] Urine 1.025 1.003 - 1.035 Blood Urine Trace (A) NEG^Negative pH Urine 6.0 5.0 - 7.0 pH Protein Albumin Urine 100 (A) NEG^Negative mg/dL Urobilinogen Urine 1.0 0.2 - 1.0 EU/dL Nitrite Urine Negative NEG^Negative Leukocyte Esterase Urine Negative NEG^Negative Source Midstream Urine Urine Microscopic Status: Abnormal Result Value Ref Range WBC Urine 0 - 5 OTO5^0 - 5 /HPF RBC Urine O - 2 OTO2^O - 2 /HPF Squamous Epithelial /LPF Urine Many (A) FEW^Few /LPF Bacteria Urine Many (A) NEG^Negative /HPF Mucous Urine Present (A) NEG^Negative /LPF Urine looks ok. White cell count is not elevated but the sed rate is a little higher which you can see with infection. Hemoglobin is still low and likely low on iron. Previously said constipated from iron. Might consider trying different form of iron to see if might tolerate this better but can talk with Dr. Fritz about this further. The are of pain is now more red and firm, suggesting there may is some skin infection and might haveunderlying pilonidal cyst but I do not see any tract draining out to the skin surface. I would like to treat you with an antibiotic and see if this might settle down. You may need to see a surgeon and have this drained if not settling down. Xray of spine looks ok but it shows a lot of stool in abdomen. I would recommend she take Miralax daily until all this settles down. Stop the cortisone cream and can just use if it itchy prn. Keep soaking in tub daily to keep area clean. Please call clinic on Wednesday with update in condition. documented in this encounter Progress Notes Patrciia Evans MD - 11/15/2019 3:20 PM CDT Images from the original note were not included. Subjective Mahi Faye is a 19 year old female who presents to clinic today with guardian because of: Fever HPI Concerns: Fever of 101.9 on forehead this am. Pain on buttocks but skin looks better. Had tylenol I had seen Mahi a couple days ago and with same pain over gluteal crease. At that time the skin was just a little red and reportedly itchy. I did not see anything to suggest infection nor pilonidal cyst. I gave her some HC 2.5% and she said it helped a lot and was able to sleep well then that night. But last night pain worse and more trouble sleeping. Feels swollen to her now. Says she is still having BMs but area hurts when she goes. Denies any change with urination. No cold, cough, sore throat, vomtiing. Reviewed old labs/ notes: Hgb/ iron was low last April. Per Dr. Masterson: Betito Mccloud felt that GI cause for the low HGB has been ruled out. She recommended [facility]. However, Mahi has already tried a ferrous gluconate and this gave her significant constipation Has not been taking any iron supplement. Takes OCP continually and has not had a period in a long time. Review of Systems Constitutional, eye, ENT, skin, respiratory, cardiac, and GI are normal except as otherwise noted. Problem List Patient Active Problem List Diagnosis Date Noted ??? 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 Allergies Allergies Allergen Reactions ??? Nkda [No Known Drug Allergies] ??? Seasonal Allergies Reviewed and updated as needed this visit by Provider Objective BP 131/84 (BP Location: Left arm, Patient Position: Chair, Cuff Size: Adult Regular) Pulse 78 Temp 98 ??F (36.7 ??C) (Oral) Resp 20 Ht 5' 8.5 (1.74 m) Wt 172 lb (78 kg) LMP 10/23/2019 SpO2 100% BMI 25.77 kg/m?? 94 %ile based on [facility] (Girls, 2-20 Years) [id number] data based on Weight recorded on 11/15/2019. Blood pressure reading is in the Stage 1 hypertension range (BP >= 130/80) based on the 2017 AAP Clinical Practice Guideline. Physical Exam GENERAL: Active, alert, in no [...] ABDOMEN: Soft, non-tender, not distended, no masses but stool palpable - especially right side; no hepatosplenomegaly. Bowel sounds normal. ANORECTAL: rectum appears normal. Gluteal crease- now has area of erythema that has spread more laterally with some underlying induration. Not fluctuant. No external tract seen. Results for orders placed or performed in visit on 11/15/19 XR Lumbar Spine 2/3 Views Status: None Narrative LUMBAR SPINE TWO - THREE VIEWS 11/15/2019 4:03 PM HISTORY: Pain in buttock. COMPARISON: None. FINDINGS: There are five non-rib bearing lumbar type vertebrae. There is mild broad-based levoconvex curvature of the lumbar spine centered at L3. Disc space are grossly well-maintained. Pedicles are intact. Vertebral bodies are normal height. SI joints are unremarkable. Moderate amount of stool is projected over the colon. Psoas margins are maintained. No acute fracture or malalignment. Impression IMPRESSION: 1. Mild broad-based levoconvex curvature of the lumbar spine is centered at L3. 2. Otherwise negative lumbar spine x-rays. MIGUELITO GILMORE MD Results for orders placed or performed in visit on 11/15/19 CBC with platelets and differential Status: Abnormal Result Value Ref Range WBC 9.6 4.0 - 11.0 10e9/L RBC Count 3.88 3.7 - 5.3 10e12/L Hemoglobin 10.3 (L) 11.7 - 15.7 g/dL Hematocrit 32.2 (L) 35.0 - 47.0 % MCV 83 77 - 100 fl MCH 26.5 26.5 - 33.0 pg MCHC 32.0 31.5 - 36.5 g/dL RDW 13.6 10.0 - 15.0 % Platelet Count 356 150 - 450 10e9/L % Neutrophils 67.3 % % Lymphocytes 24.2 % % Monocytes 8.0 % % Eosinophils 0.4 % % Basophils 0.1 % Absolute Neutrophil 6.5 1.3 - 7.0 10e9/L Absolute Lymphocytes 2.3 1.0 - 5.8 10e9/L Absolute Monocytes 0.8 0.0 - 1.3 10e9/L Absolute Eosinophils 0.0 0.0 - 0.7 10e9/L Absolute Basophils 0.0 0.0 - 0.2 10e9/L Diff Method Automated Method ESR: Erythrocyte sedimentation rate Status: Abnormal Result Value Ref Range Sed Rate 36 (H) 0 - 20 mm/h *UA reflex to Microscopic and Culture ([facility] (except [place] and [place]) Status: Abnormal Specimen: Midstream Urine Result Value Ref Range Color Urine Yellow Appearance Urine Slightly Cloudy Glucose Urine Negative NEG^Negative mg/dL Bilirubin Urine Small (A) NEG^Negative Ketones Urine Trace (A) NEG^Negative mg/dL Specific [place] Urine 1.025 1.003 - 1.035 Blood Urine Trace (A) NEG^Negative pH Urine 6.0 5.0 - 7.0 pH Protein Albumin Urine 100 (A) NEG^Negative mg/dL Urobilinogen Urine 1.0 0.2 - 1.0 EU/dL Nitrite Urine Negative NEG^Negative Leukocyte Esterase Urine Negative NEG^Negative Source Midstream Urine Urine Microscopic Status: Abnormal Result Value Ref Range WBC Urine 0 - 5 OTO5^0 - 5 /HPF RBC Urine O - 2 OTO2^O - 2 /HPF Squamous Epithelial /LPF Urine Many (A) FEW^Few /LPF Bacteria Urine Many (A) NEG^Negative /HPF Mucous Urine Present (A) NEG^Negative /LPF Assessment & Plan 1. Cellulitis of buttock Normal CBC but elevated ESR. Will treat for infection. Do not appreciate an pilonidal cyst, no sinus track, no abscess. If not improving though will do consult with surgery. - cephALEXin (KEFLEX) 500 MG capsule; Take 1 capsule (500 mg) by mouth 2 times daily Dispense: 20 capsule; Refill: 0 2. Pain in buttock - CBC with platelets and differential - ESR: Erythrocyte sedimentation rate - XR Lumbar Spine 2/3 Views; Future - *UA reflex to Microscopic and Culture ([facility] (except [place] and [place]) - Urine Microscopic 3. Development delay Not as reliable about symptoms and has report of poor pain tolerance all making assessment more difficult 4. Slow transit constipation She has moderate amount of stool on exam and by Xray. They home has a prn order for Miralax. Instructed to give full 17 g dose in 8 oz liquid daily. Discussed ways to make palatable. If not having good results, may need more clean out. 5. Anemia Iron deficient - has been longer standing and did not tolerate iron supplementation. Recommend talking to Dr. Fritz about this further and coming up with plan. Follow Up Return in about 2 days (around 11/17/2019) for Phone check in to let me know how she is doing. Patricia Corrales MD documented in this encounter Plan of Treatment Not on filedocumented as of this encounter Procedures Procedure Name Priority Date/Time Associated Comments Diagnosis URINE MICROSCOPIC Routine 11/15/2019 3:40 PM Pain in buttock R esults for this CDT procedure are i n the results section. UA MACROSCOPIC WITH Routine 11/15/2019 3:40 PM Pain in buttock Results for this REFLEX TO MICROSCOPIC CDT proced ure are in AND CULTURE the results section. CBC WITH PLATELETS & Routine 11/15/2019 3:39 PM Pain in buttoc k Results for this DIFFERENTIAL CDT procedure are i n the results section. ERYTHROCYTE Routine 11/15/2019 3:39 PM Pain in buttock Result s for this SEDIMENTATION RATE CDT procedure are in AUTO the results section. documented in this encounter [...] L3. 2. Otherwise negative lumbar spine x-ray geetha GILMORE MD Narrative 11/15/2019 4:51 PM CDT [...] L3. 2. Otherwise negative lumbar spine x-ray geetha GILMORE MD Patricia Corrales MD IM DIAGNOSTIC IMAGING ORDER [place] (ABNORMAL) Urine Microscopic (11/15/2019 3:40 PM CDT) [facility] gist Method Time Signature WBC Urine 0 - 5 OTO5^0 - 11/15/2019 [facility] 5 /HPF 4:18 PM CDT [facility] [place] RBC Urine O - 2 OTO2^O - 11/15/2019 [facility] 2 /HPF 4:18 PM CDT [facility] [place] Squamous Many (A) FEW^Few 11/15/2019 [facility] Epithelial /LPF 4:18 PM CDT CLINICS /LPF Urine [place] Bacteria Urine Many (A) NEG^Negat 11/15/2019 [place] eunice /HPF 4:18 PM CDT [facility] Mucous Urine Present (A) NEG^Negat 11/15/2019 [place] eunice /LPF 4:18 PM CDT [facility] Specimen Anatomical Collection Method Collection Time Receive d Time (Source) Location / / Volume Laterality 11/15/2019 3:40 PM 0 3:41 CDT PM CDT Patricia Corrales MD LAB - URINE ORDERABLES Performing Organization Address City/State/ZIP Code Phon e Number [facility] [address] [place] [address] [address] (ABNORMAL) *UA reflex to Microscopic and Culture ([facility] [place] [facility] (11/15/2019 3:40 PM CDT) [facility] Method Time Signature Color Urine Yellow 11/15/2019 [place] 4:18 PM CDT [facility] Appearance Slightly 11/15/2019 [place] Urine Cloudy 4:18 PM CDT [facility] Glucose Urine Negative NEG^Negat 11/15/2019 [place] eunice mg/dL 4:18 PM CDT [facility] Bilirubin Small (A) NEG^Negat 11/15/2019 [place] Urine eunice 4:18 PM CDT [facility] Comment: This is an unconfirmed screenin g test result. A positive result may be false. Ketones Urine Trace (A) NEG^Negative mg/dL 11/15/2019 4:18 [place] CDT [facility] Specific [place] 1.025 1.003 - 1.035 11/15/2019 4:18 [place] Urine PM CDT [facility] Blood Urine Trace (A) NEG^Negative 11/15/2019 4:18 [facility] pH Urine 6.0 5.0 - 7.0 pH 11/15/2019 4:18 [facility] Protein Albumin 100 (A) NEG^Negative mg/dL 11/15/2019 4:18 [place] Urine PM CDT [facility] Urobilinogen Urine 1.0 0.2 - 1.0 EU/dL 11/15/2019 4:18 [place] PM CDT [facility] Nitrite Urine Negative NEG^Negative 11/15/2019 4:18 [place] PM CDT [facility] Leukocyte Esterase Negative NEG^Negative 11/15/2019 4:18 [place] Urine PM CDT [facility] Source Midstream Urine 11/15/2019 3:41 [place] PM CDT [facility] Specimen (Source) Anatomical Collection Method Collection Time Re ceived Time Location / / Volume Laterality Examination of 11/15/2019 3:40 11/15/2019 3:41 midstream urine PM CDT PM CDT specimen (procedure) Patricia Corrales MD LAB - URINE ORDERABLES Performing Organization Address City/[facility]/ZIP Code Phon e Number [facility] [address] [place], [place] [address] [address] (ABNORMAL) ESR: Erythrocyte sedimentation rate (11/15/2019 3:39 PM CDT) P athologist Signature Sed Rate 36 (H) 0 - 20 mm/h 11/15/2019 [place] 4:20 PM CDT [facility] Specimen Anatomical Collection Method Collection Time Receive d Time (Source) Location / / Volume Laterality Blood specimen 11/15/2019 3:39 PM 020 3:40 (specimen) CDT PM CDT Patricia Corrales MD LAB - BLOOD ORDERABLES Performing Organization Address City/[facility]/ZIP Code Phon e Number [facility] [address] [place], [place] [address] [address] (ABNORMAL) CBC with platelets and differential (11/15/2019 3:39 PM CDT) Patholo gist Method Time Signature WBC 9.6 4.0 - 11/15/2019 [facility] 11.0 4:10 PM CDT [facility] 10e9/L [place] RBC Count 3.88 3.7 - 5.3 11/15/2019 [facility] 10e12/L 4:10 PM CDT [facility] [place] Hemoglobin 10.3 (L) 11.7 - 11/15/2019 [facility] 15.7 g/dL 4:10 PM CDT [facility] [place] Hematocrit 32.2 (L) 35.0 - 11/15/2019 [facility] 47.0 % 4:10 PM CDT [facility] [place] MCV 83 77 - 100 11/15/2019 [facility] fl 4:10 PM CDT [facility] [place] MCH 26.5 26.5 - 11/15/2019 [facility] 33.0 pg 4:10 PM CDT [facility] [place] MCHC 32.0 31.5 - 11/15/2019 [facility] 36.5 g/dL 4:10 PM CDT [facility] [place] RDW 13.6 10.0 - 11/15/2019 [facility] 15.0 % 4:10 PM CDT [facility] [place] Platelet Count 356 150 - 450 11/15/2019 [facility] 10e9/L 4:10 PM CDT [facility] [place] % Neutrophils 67.3 % 11/15/2019 [place] 4:10 PM CDT [facility] [place] % Lymphocytes 24.2 % 11/15/2019 [place] 4:10 PM CDT [facility] [place] % Monocytes 8.0 % 11/15/2019 [facility] 4:10 PM CDT [facility] [place] % Eosinophils 0.4 % 11/15/2019 [facility] 4:10 PM CDT [facility] [place] % Basophils 0.1 % 11/15/2019 [facility] 4:10 PM CDT [facility] [place] Absolute 6.5 1.3 - 7.0 11/15/2019 [facility] Neutrophil 10e9/L 4:10 PM CDT [facility] [place] Absolute 2.3 1.0 - 5.8 11/15/2019 [facility] Lymphocytes 10e9/L 4:10 PM CDT [facility] [place] Absolute 0.8 0.0 - 1.3 11/15/2019 [facility] Monocytes 10e9/L 4:10 PM CDT [facility] [place] Absolute 0.0 0.0 - 0.7 11/15/2019 [facility] Eosinophils 10e9/L 4:10 PM CDT [facility] [place] Absolute 0.0 0.0 - 0.2 11/15/2019 [place] Basophils 10e9/L 4:10 PM CDT [facility] [place] Diff Method Automated 11/15/2019 [facility] Method 4:10 PM CDT [facility] Specimen Anatomical Collection Method Collection Time Receive d Time (Source) Location / / Volume Laterality Blood specimen 11/15/2019 3:39 PM 020 3:40 (specimen) CDT PM CDT Patricia Corrales MD LAB - BLOOD ORDERABLES Performing Organization Address City/State/ZIP Code Phon e Number [facility] [address] [place], [place] [address] [address] documented in this encounter Visit Diagnoses Diagnosis Cellulitis of buttock - Primary Cellulitis and abscess of buttock Pain in buttock Mylagia and myositis, unspecified Development delay Unspecified delay in development Slow transit constipation Mild anemia Anemia, unspecified Pain in buttock Mylagia and myositis, unspecified documented in this encounter Additional Health Concerns Assessment Noted Time PHQ-9 Depression Total Score: 7 11/13/2019 11:26 AM CD T documented as of this encounter Care Teams Rn Lactation Consultant Relationship Specialty Start Date End Date Queta Fritz MD PCP - General Pediatrics 12/19/15 05/27/20 [address] [place] [id number] Queta Fritz MD Assigned PCP 03/04/14 04/12/21 [address] [place] [id number] documented as of this encounter
--- OUTSIDE RECORDS SUMMARY | 2022-04-23 23:44 | XMS_ITS | Encounter Summary ---
:2000 Author Organization [place] Address [address] [place] [address] Care Team Providers Name Role Phone Queta Fritz MD Primary Care Provider [phone] Queta Fritz MD Unavailable Reason for Visit Reason Onset Date Comments Symptoms 11/13/2019 Appointment 11/13/2019 Encounter Details Date Type Department Care Team Description 11/13/2019 Telephone [facility] Queta Fritz oms; Appointment Clinic Krystle De Jesus MD [address] [place], [place] [address] [place], [place] [address] (Wo rk) Social History Tobacco Use Types [...] do you attend alevism or Never 2018 yarsani services? 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 documented as of this encounter Miscellaneous Notes Telephone Encounter - Usha Mckeon RN - 11/13/2019 12:43 PM CDT Primary care provider had a virtual visit with patient today and is advising patient to be seen in clinic today. [facility] and assisted in scheduling an appointment in clinic for today. Next 5 appointments (look out 90 days) Nov 13, 2019 2:20 PM CDT [facility]ORT with [facility] [address] Telephone Encounter - Usha Mckeon RN - 11/13/2019 11:04 AM CDT Called [facility] and spoke with Meme. Patient told staff yesterday that her low back/buttock was hurting and was quite upset and crying. Patient will not do anything else still today and is focusing on the pain. Tylenol and warm bath not helping. Patient refusing to allow area to be iced. Staff unable to see anything when they look at the area. Patient stated she feels bumps. Patient has been doing a lot of biking. Patient doesn't feel like the pain is muscular in nature. Patient not having any difficulty voiding or having BMs. Patient denied any radiating symptoms. Assisted in scheduling a phone visit. They do not have capability to do a video visit. Telephone Encounter - SamsonTiffani - 11/13/2019 10:30 AM CDT [facility]e calling from the [facility] to report Mahi is having pain in her lower back/ upper buttregion. Started last night.Staff cannot see or feel anything. Can she be seen in clinic? Ice and tylenol does not seem to be helping. She has been biking a lot which is new for her. Meme phone [phone]. documented in this encounter Plan of Treatment Not on filedocumented as of this encounter Visit Diagnoses Not on filedocumented in this encounter Additional Health Concerns Assessment Noted Time PHQ-9 Depression Total Score: 7 11/13/2019 11:26 AM CD T documented as of this encounter Care Teams Export Traffic Department Manager Relationship Specialty Start Date End Date Queta Fritz MD PCP - General Pediatrics 12/19/15 05/27/20 [address] [place] [phone] Queta Fritz MD Assigned PCP 03/04/14 04/12/21 [address] [place] [phone] documented as of this encounter
--- OUTSIDE RECORDS SUMMARY | 2022-04-23 23:44 | XMS_ITS | Encounter Summary ---
:2000 Author Organization [place] Address [address] [facility] [place] [address] Care Team Providers Name Role Phone Queta Fritz MD Primary Care Provider [phone] Queta Fritz MD Unavailable [phone] Reason for Visit Auth/Cert Specialty Diagnoses / Procedures Referred By Contact Refer red To Contact Surgery Diagnoses weight loss Rh Periop Services Procedures ESOPHAGOGASTRODUODENOSCOPY (EGD) COLONOSCOPY [address] [place], [place] [address] Phone: Fax: Referral ID Status Reason Start Date Expiration Date Visits Requ ested Visits Authorized [id number] 1 1 Encounter Details Date Type Department Care Team Description 02/10/2019 Anesthesia Event [facility] Mc Augustin PeriOp Services MD Esau [address] [place] [address] ANESTHESIA [id number] [facility] [address] [place], [place] [address] (Wo rk) Anesthesia Record Procedure Summary Procedure Name Responsible Anesthesia Start Anesthesia Stop Anesthesiologist Time Time ESOPHAGOGASTRODUODENOSCOPY with Satnam Augustin, 02/10/19 0 730 02/10/19 0830 biopsies (N/A Mouth) Events Date Time Event Comment 02/10/2019 0730 An Start 0731 An Induction 0829 Quick Note 0830 An Stop Electronically s igned by Satnam Augustin on February 10, 2019 12:11 PM No medications on file. Agents No agents on file. Blood No blood administrations on file. Lines, Drains, and Airways Type Details Placement Removal Incision/Surgical Site 02/10/19; 0724; 02/10/19 0724 by 01/09/20 0000 by Rectum; 01/09/20; Eleanor Weber RN Krajacic, Jennifer 0000 TERRY Whittaker CRNA Incision/Surgical Site 02/10/19; 0724; 02/10/19 0724 by 01/09/20 0000 by Mouth; 01/09/20; Eleanor Weber RN Krajacic, Jennifer 0000 TERRY Whittaker CRNA Peripheral IV 02/10/19; 0825; 20 G 02/10/19 0825 by Cleo, 01/17 01/04 0924 by JAZMYNE Ramey Jennifer, RN documented in this encounter Social History Tobacco [...] or relatives? How often do you attend tenriism or Never 2018 mandaen services? 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 Anesthesia Type: General Note: Anesthesia Post Evaluation Patient location during evaluation: PACU Patient participation: Able to fully participate in evaluation Level of consciousness: awake Pain management: adequate Airway patency: patent Cardiovascular status: acceptable Respiratory status: acceptable Hydration status: euvolemic PONV: controlled Anesthetic complications: None Last vitals: Vitals: 02/10/19 0845 02/10/19 0900 02/10/19 0915 BP: 121/73 (!) 121/91 119/76 Pulse: 93 99 Resp: 16 (!) 33 12 Temp: 97.9 ??F (36.6 ??C) SpO2: 100% 99% 100% Electronically Signed By: Satnam Augustin MD February 10, 2019 12:12 PM Anesthesia Preprocedure Evaluation - Satnam Augustin MD - 02/10/2019 6:35 AM CDT Anesthesia Pre-Procedure Evaluation Patient: Mahi Faye : 2000 Preoperative Diagnosis: weight loss Procedure(s): ESOPHAGOGASTRODUODENOSCOPY (EGD) COLONOSCOPY Past Medical History: Diagnosis Date ??? ADHD (attention deficit hyperactivity disorder) ??? Behavior symptom mother states has behavior issues ??? 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 CONGEN URETHRAL STENOSIS 12/16/2005 ??? 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 Noninfectious ileitis ??? Tonsillar abscess, S/P drainage 07/16/2014 Past Surgical History: Procedure Laterality Date ??? HC CYSTOURETHROSCOPY 05/04/2005 Cysto and urethral dilation. ??? INCISION AND DRAINAGE TONSIL, COMBINED 2013 under general anesthesia ??? ORTHOPEDIC SURGERY scope knee Anesthesia Evaluation . ROS/MED HX ENT/Pulmonary: (-) asthma, sleep apnea and Other pulmonary disease Neurologic: (+)Developmental delay Cardiovascular: (-) hypertension, CAD, CHF, arrhythmias, pulmonary hypertension and dyslipidemia METS/Exercise Tolerance: Hematologic: (-) anemia Musculoskeletal: (-) arthritis GI/Hepatic: (+) Other GI/Hepatic abdominal pain (-) GERD and hepatitis Renal/Genitourinary: (-) renal disease Endo: (-) Type I DM, Type II DM, thyroid disease, chronic steroid usage, other endocrine disorder and obesity Psychiatric: (-) psychiatric history Infectious Disease: - neg infectious disease ROS Malignancy: - no malignancy Other: - neg other ROS Physical Exam Airway Mallampati: II TM distance: >3 FB Neck ROM: full Dental Cardiovascular Rhythm and rate: regular and normal (-) no murmur Pulmonary breath sounds clear to auscultation Other findings: Lab Test 12/16/18 08/17/18 05/30/18 1533 1654 2001 WBC 12.7* 7.5 9.0 HGB 10.4* 10.9* 10.6* MCV 81 81 80 PLT 368 361 364 Lab Test 12/16/18 04/16/18 12/19/15 1533 2300 0747 NA 138 138 139 POTASSIUM 3.9 3.8 3.8 CHLORIDE 106 107 108 CO2 24 25 25 BUN 8 7 11 CR 0.71 0.74 0.71 ANIONGAP 8 6 6 RUDY 8.6* 8.5* 8.8* GLC 75 101* 88 Lab Results Component Value Date WBC 12.7 (H) 12/16/2018 HGB 10.4 (L) 12/16/2018 HCT 32.4 (L) 12/16/2018 PLT 368 12/16/2018 CRP 21.0 (H) 08/17/2018 SED 53 (H) 12/16/2018 NA 138 12/16/2018 POTASSIUM 3.9 12/16/2018 CHLORIDE 106 12/16/2018 CO2 24 12/16/2018 BUN 8 12/16/2018 CR 0.71 12/16/2018 GLC 75 12/16/2018 RUDY 8.6 (L) 12/16/2018 ALBUMIN 3.3 (L) 12/16/2018 PROTTOTAL 7.5 12/16/2018 ALT 28 12/16/2018 AST 11 12/16/2018 ALKPHOS 106 12/16/2018 BILITOTAL 0.2 12/16/2018 LIPASE 83 12/16/2018 AMYLASE 41 12/16/2018 TSH 1.18 12/19/2015 HCG Negative 04/16/2018 Preop Vitals BP Readings from Last 3 Encounters: 02/10/19 123/78 (86 %/ 89 %)* 01/17/19 123/70 (85 %/ 60 %)* 12/16/18 124/77 (89 %/ 88 %)* *BP percentiles are based on the February 2017 AAP Clinical Practice Guideline for girls Pulse Readings from Last 3 Encounters: 02/10/19 96 01/17/19 100 12/16/18 100 Resp Readings from Last 3 Encounters: 02/10/19 20 01/17/19 18 12/16/18 18 SpO2 Readings from Last 3 Encounters: 01/17/19 98% 12/16/18 98% 12/07/18 99% Temp Readings from Last 1 Encounters: 02/10/19 97.7 ??F (36.5 ??C) (Temporal) Ht Readings from Last 1 Encounters: 02/10/19 1.727 m (5' 8) (94 %)* * Growth percentiles are based on CDC (Girls, 2-20 Years) data. Wt Readings from Last 1 Encounters: 02/10/19 75.3 kg (166 lb) (93 %)* * Growth percentiles are based on [facility] (Girls, 2-20 Years) data. Estimated body mass index is 25.24 kg/m?? as calculated from the following: Height as of this encounter: 1.727 m (5' 8). Weight as of this encounter: 75.3 kg (166 lb). Anesthesia Plan History & Physical Review History and physical reviewed and following examination; no interval change. ASA Status: 2 . NPO Status: > 8 hours Plan for General with Propofol induction. Maintenance will be Balanced. PONV prophylaxis: Ondansetron (or other 5HT-3) Postoperative Care Postoperative pain management: IV analgesics and Oral pain medications. Consents Anesthetic plan, risks, benefits and alternatives discussed with: Legal guardian.. Satnam Augustin MD . documented in this encounter Plan of Treatment Not on filedocumented as of this encounter Visit Diagnoses Not on filedocumented in this encounter Additional Health Concerns Assessment Noted Time PHQ-9 Depression Total Score: 8 12/16/2018 4:14 PM CDT documented as of this encounter Care Teams Teaching Assistant Relationship Specialty Start Date End Date Queta Fritz MD PCP - General Pediatrics 12/19/15 05/27/20 [address] [address] Queta Fritz MD Assigned PCP 03/04/14 04/12/21 [address] [address] documented as of this encounter
--- OUTSIDE RECORDS SUMMARY | 2022-04-23 23:44 | XMS_ITS | Encounter Summary ---
:2000 Author Organization [place] Address [address] [place] [address] Care Team Providers Name Role Phone Queta Fritz MD Primary Care Provider [phone] Queta Fritz MD Unavailable [phone] Reason for Visit (Routine) - Closed Specialty Diagnoses / Procedures Referred By Contact Refer red To Contact Radiology / Diagnoses EPIC ORDER sched with mom Ur Mri Radiology. Procedures MR ENTEROGRAPHY WWO CONTRAST [facility]ly [facility] [place] [address] Phone: Referral ID Status Reason Start Date Expiration Date Visits Requ ested Visits Authorized [id number] Closed 03/30/2019 03/29/2020 1 1 Encounter Details Date Type Department Care Team Description 03/30/2019 Hospital Encounter [facility] Betito Mccloud Wiliam ight loss; [employer] [facility] TERRY Gaxiola Abdominal pain, generalized [address] [place] [address] [place], [place] [phone] Social History Tobacco Use Types Packs/Day Years [...] do you attend baptism or Never 2018 jew services? 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 documented as of this encounter Medications at Time of Discharge Medication Sig Dispensed Refills Start Date End Date acetaminophen (TYLENOL) Take 1-2 tablets 100 tablet 11 201801/03/2020 500 MG tabletIndications: (500-1,000 mg) by Arthralgia of right knee mouth every 4 hours as needed for pain calcium carbonate 600 Take 1 tablet by 0 01/16/2020 mg-vitamin D 400 units mouth 2 times daily (CALCIUM 600 + D) 600-400 MG-UNIT per tablet levonorgestrel-ethinyl Take 1 tablet by 84 tablet 3 017 06/26/2020 estradiol (SEASONALE) mouth daily 0.15-0.03 MG per tabletIndications: Encounter for surveillance of contraceptive pills metFORMIN (GLUCOPHAGE) Take 500 mg by 0 03/28/2020 500 MG tablet mouth 2 times daily For appetite suppression/ seraquel QUEtiapine ER (SEROQUEL Take 600 mg by 0 06/17/20 17 11/13/2019 XR) 300 MG 24 hr tablet mouth At Bedtime Vitamin D, Take 1 capsule by 0 020 Cholecalciferol, 1000 mouth daily units CAPS documented as of this encounter Plan of Treatment Not on filedocumented as of this encounter Procedures Procedure Name Priority Date/Time Associated Diagnosis Comme nts MR ENTEROGRAPHY W/O Routine 03/30/2019 9:30 AM Weight lo ss Results for this AND W CONTRAST CDT Abdominal pain, procedure are in generalized the results section. documented in this encounter Results MR Enterography w Contrast (03/30/2019 9:30 AM CDT) Anatomical Region Laterality Modality Abdomen/Pelvis, SUBRAD MR BODY, UMP MR BODY, RAD MR Magnetic Resonance Specimen (Source) Anatomical Location Collection Method / Collectio n Time Received Time / Laterality Volume Impressions 03/30/2019 9:58 AM CDT IMPRESSION: No definitive findings of inflammatory bowel disease. Moderate stool in the cecum with some ex tension into the distal ileum which is nondilated. DAWNA ZUNIGA MD Narrative 03/30/2019 9:58 AM CDT HISTORY: Abdominal pain, gastroenteritis or colitis suspected, assess for Crohn's disease COMPARISON: None Procedure comment: Multisequence multipl mai MRI of the abdomen and pelvis according to the enterography pro tocol. 0.25 mg IV Glucagon and 1500 mL oral breeze a contrast were give n per protocol. 7.5 mL of Gadavist contrast was given IV. FINDINGS: The included portions of the l iver, gallbladder, biliary tree, kidneys, pancreas, and spleen are unremarkable in appearance. Oral contrast extended into the cecum by the end of the examination. No abnormal bowel wall enhancement or re stricted diffusion. No bowel wall thickening, separation of bowel loo ps, interloop abscess, or stricture is demonstrated. Artifact from what appears to be an intraluminal object in the small bowel i s seen on series 102, image 53. The artifact is presumably much larg er than the actual object. There is moderate stool in the cecum wit h some extension into a nondilated distal ileum. No adenopathy is demonstrated in the abd omen or pelvis. No abnormal signal is identified in the bone marrow. Procedure Note Dawna Zuniga MD - 03/30/2019Formattin g of this note might be different from the original. HISTORY: Abdominal pain, gastroenteritis or colitis suspected, assess for Crohn's disease COMPARISON: None Procedure comment: Multisequence multipl mai MRI of the abdomen and pelvis according to the enterography pro tocol. 0.25 mg IV Glucagon and 1500 mL oral breeze a contrast were give n per protocol. 7.5 mL of Gadavist contrast was given IV. FINDINGS: The included portions of the l iver, gallbladder, biliary tree, kidneys, pancreas, and spleen are unremarkable in appearance. Oral contrast extended into the cecum by the end of the examination. No abnormal bowel wall enhancement or re stricted diffusion. No bowel wall thickening, separation of bowel loo ps, interloop abscess, or stricture is demonstrated. Artifact from what appears to be an intraluminal object in the small bowel i s seen on series 102, image 53. The artifact is presumably much larg er than the actual object. There is moderate stool in the cecum wit h some extension into a nondilated distal ileum. No adenopathy is demonstrated in the abd omen or pelvis. No abnormal signal is identified in the bone marrow. IMPRESSION: No definitive findings of in flammatory bowel disease. Moderate stool in the cecum with some ex tension into the distal ileum which is nondilated. DAWNA ZUNIGA MD [address] TERRY AIRCRAFT RESTORER IMG MRI ORDERABLES documented in this encounter Visit Diagnoses Diagnosis Weight loss Loss of weight Abdominal pain, generalized documented in this encounter Administered Medications Inactive Administered Medications - up to 3 most recent administrations Medication Order MAR Action Action Date Dose Rate Site 0.9% sodium chloride BOLUS New Bag 03/30/2019 8:07 AM CDT 60 mLs Intravenous, 100 mL, ONCE, On Adri 03/30/19 at 0815, For 1 dose gadobutrol (GADAVIST) injection 7.5 mL Given 03/30/2019 8:07 AM CDT 7.5 mLs 7.5 mL, Intravenous, ONCE, On Adri 03/30/19 at 0815, For 1 dose glucagon injection 0.25 mg Given by Other 03/30/2019 9:15 AM CDT 0.25 mg 0.25 mg, Intravenous, ONCE, Clinician Administer over 1 Minutes, On Adri 03/30/19 at 0900, For 1 dose, If ordered IV, give IV Push over 1 minute. Reconstitute with 1mL sterile water. lidocaine 1 % 0.2 mL Given 03/30/2019 7:33 AM CDT 0.2 mLs 0.2 mL, Intradermal, ONCE, On Adri 03/30/19 at 0730, For 1 dose documented in this encounter Additional Health Concerns Assessment Noted Time PHQ-9 Depression Total Score: 8 12/16/2018 4:14 PM CDT documented as of this encounter Care Teams Instructor Wastewater [employer] Relationship Specialty Start Date End Date Queta Fritz MD PCP - General Pediatrics 12/19/15 05/27/20 [address] [place] [address] Queta Fritz MD Assigned PCP 03/04/14 04/12/21 [address] [place] [address] documented as of this encounter
--- OUTSIDE RECORDS SUMMARY | 2022-04-23 23:44 | XMS_ITS | Encounter Summary ---
:2000 Author Organization [place] Address [address] [place] [address] Care Team Providers Name Role Phone Queta Fritz MD Primary Care Provider [phone] Queta Fritz MD Unavailable [phone] Encounter Details Date Type Department Care Team Description 04/26/2019 Travel Social History Tobacco Use Types Packs/Day [...] do you attend confucianist or Never 2018 caodaism services? 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
--- OUTSIDE RECORDS SUMMARY | 2022-04-23 23:44 | XMS_ITS | Encounter Summary ---
:2000 Author Organization [place] Address [address] [place] [address] Care Team Providers Name Role Phone Queta Fritz MD Primary Care Provider [phone] Queta Fritz MD Unavailable [phone] Reason for Visit Reason Comments Well Child 19 yrs well check Encounter Details Date Type Department Care Team Description 04/26/2019 Office Visit [facility] Queta Fritz ntdemi for routine child health examination w/o abnormal findings (Primary Dx); Clinic Krystle De Jesus MD Weight loss; [address] Mild ane osmin [address] [place] [id number] (Wo rk) Social History Tobacco Use Types [...] do you attend latter-day or Never 2018 temple services? 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 documented as of this encounter Last Filed Vital Signs Vital Sign Reading Time Taken Comments Blood Pressure 123/82 04/26/2019 3:26 PM CDT Pulse 100 04/26/2019 3:26 PM CDT Temperature 36.7 ??C (98 ??F) 04/26/2019 3:26 PM CDT Respiratory Rate 20 04/26/2019 3:26 PM CDT Oxygen Saturation 98% 04/26/2019 3:26 PM CDT Inhaled Oxygen Concentration - - Weight 79.1 kg (174 lb 6.4 oz) 04/26/2019 3:26 PM CDT Height 172.1 cm (5' 7.75) 04/26/2019 3:26 PM CDT Body Mass Index 26.71 04/26/2019 3:26 PM CDT Body Mass Index Percentile 89.90 % 04/26/2019 3:26 PM CD T Growth Chart: CDC (Girls, 2-20 Years) documented in this encounter Patient Instructions Patient InstructionsQueta Licea, LINING LAYER - 04/26/2019 3:15 PM CDT Images from the original note were not included. For your period: I recommend having periods once every 3 months normally with control. At most, you can go once every 6 months, but only for vacations. Follow-up in 1 year for physical exam. 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 Do not tolerate drinking and driving. If it is necessary to keep a gun in your home, store it unloaded and locked with the ammunition locked separately from the gun. Consistent with Bright Futures: Guidelines for Health Supervision of Infants, Children, and Adolescents, 4th Edition For more information, go to https://brightfutures.aap.org. documented in this encounter Progress Notes Queta Fritz MD - 04/26/2019 3:15 PM CDT SUBJECTIVE: Mahi Faye is a 19 year old female with JANETH and borderline intellectual functioning who lives in a skilled nursing, here for a routine health maintenance visit. Patient was roomed by: Queta Licea CMA Last WCC was on 02/28/2018 by me. For activity/breathing concerns: Mother has concerns with Mahi needing to rest when active. There are no signs of poor cardiac function or asthma. Her mild anemia is not suspected as a cause.Advised that it is likely she is deconditioned. Advised increasing regular activity and getting at least half an hour of exercise a day. A pulmonary function test can be performed if mother feels this is appropriate, but symptoms are notconsistent with asthma. ?? Iron deficiency anemia: Mahi is still a bit anemic. ??Please advise increase in iron to 325 mg three times a day for 3 months and then repeat the labs for this. Labs are ordered and can be done as a nurse only visit. Last hemoglobin with 10.4 with ferritin of 57 but elevated Sed rate on 12/16/18. Edge Blacker of a slight downturn of last hemoglobin. Seen multiple times for generalized abdominal pain and weight loss - Being seen by Pediatric GI speciality since 01/2019. March 2019 MRE was normal. December ESOPHAGOGASTRODUODENOSCOPY with biopsies andcolonoscopy was normal. Seen 11/30/18 for JANETH, Borderline Intellectual Functioning - Being seen by psychiatry for behavioral problems. Added seroquel for agitation. TODAY: Patient is at a skilled nursing. Having a lot of abdominal pain at school. Has to relax to the beanbag corner at school. Has not beengoing to the nurse. Mahi is adament is she has not having stress and generally feels happy at school. On control and is having period once every 3 months. Mahi wants to know if there is any wayshe can have her period less. Exercises at skilled nursing. Well Child Social History Patient accompanied by: Mother Questions or concerns?: No Forms to complete? YES Child lives with:: OTHER* Languages spoken in the home: Tunisian Recent family changes/ special stressors?: None noted Safety / Health Risk TB Exposure: No TB exposure Child always wear seatbelt? Yes Helmet worn for bicycle/roller blades/skateboard? Yes Home Safety Survey: Firearms in the home?: No Daily Activities Diet Child gets at least 4 servings fruit or vegetables daily: Yes Servings of juice, non-diet soda, punch or sports drinks per day: 1 Sleep Sleep concerns: difficulty falling asleep Bedtime: 22:00 Wake time on school day: 08:20 Sleep duration (hours): 10 Does your child have difficulty shutting off thoughts at night?: YES Does your child take day time naps?: YES Dental Water source: [facility] Dental provider: patient has a dental home Dental exam in last 6 months: NO Risks: a parent has had a cavity in past 3 years and child has or had a cavity Media TV in child's room: No Types of media used: computer and video/dvd/tv Daily use of media (hours): 1 School Name of school: [employer] Grade level: 11th School performance: below grade level Grades: a Schooling concerns? no Days missed current/ last year: not sure Academic problems: learning disabilities Activities Minimum of 60 minutes per day of physical activity: Yes Activities: age appropriate activities and rides bike (helmet advised) Organized/ Team sports: swimming, track and other Sports physical needed: No Dental visit recommended: Yes Cardiac risk assessment: ?? Family history (males <55, females <65) of angina (chest pain), heart attack, heart surgeryfor clogged arteries, or stroke: ?? Biological parent(s) with a total cholesterol over 240: Dyslipidemia risk: ?? MenB Vaccine: not indicated. VISION No corrective lenses Tool used: Hernandez Right eye:? 04/27 (20/20) Left eye:? 04/27 (20/20) Visual Acuity: Pass H Plus Lens Screening: Pass ? HEARING FREQUENCY ?? Right Ear: 1000 Hz RESPONSE- on Level: 40 db (Conditioning sound) 1000 Hz: RESPONSE- on Level: 20 db 2000 Hz: RESPONSE- on Level: 20 db 4000 Hz: RESPONSE- on Level: 20 db ?? Left Ear: 4000 Hz: RESPONSE- on Level: 20 db 2000 Hz: RESPONSE- on Level: 20 db 1000 Hz: RESPONSE- on Level: 20 db 500 Hz: RESPONSE- on Level: 25 db ?? Right Ear: 500 Hz: RESPONSE- on Level: 20 db ?? Hearing Acuity: Pass ?? Hearing Assessment: normal PSYCHO-SOCIAL/DEPRESSION General screening: Electronic PSC PSC SCORES 04/26/2019 Inattentive / Hyperactive Symptoms Subtotal 8 (At Risk) Externalizing Symptoms Subtotal 9 (At Risk) Internalizing Symptoms Subtotal 6 (At Risk) PSC - 17 Total Score 23 (Positive) Followed by psychiatry has plan in place ACTIVITIES: DRUGS Smoking: no Passive smoke exposure: no Alcohol: no Drugs: no SEXUALITY Sexual attraction: opposite sex Sexual activity: No Is on OBCP for menstrual pains. She wonders about having menses less than every 3 months MENSTRUAL HISTORY Normal PROBLEM LIST Patient Active Problem List Diagnosis ??? Chromosomal abnormality ??? Learning disability ??? Anxiety ??? Insomnia ??? Aggression with talk of suicide/homicide ??? Suicidal ideation ??? Mental health disorder ??? Mild anemia MEDICATIONS Current Outpatient Medications Medication Sig Dispense Refill ??? Acetaminophen (MIDOL PO) ??? calcium carbonate 600 mg-vitamin D 400 units (CALCIUM 600 + D) 600-400 MG- UNIT per tablet Take 1tablet by mouth 2 times daily ??? levonorgestrel-ethinyl estradiol (SEASONALE) 0.15-0.03 MG per tablet Take 1 tablet by mouth daily 84 tablet 3 ??? METFORMIN HCL PO Take 500 mg by mouth 2 times daily ??? QUEtiapine (SEROQUEL) 50 MG tablet Take 50 mg by mouth as needed ??? QUEtiapine ER (SEROQUEL XR) 300 MG 24 hr tablet Take 600 mg by mouth At Bedtime ??? Vitamin D, Cholecalciferol, 1000 units CAPS Take 1 capsule by mouth daily ??? acetaminophen (TYLENOL) 500 MG tablet Take 1-2 tablets (500-1,000 mg) by mouth every 4 hours as needed for pain (Patient not taking: Reported on 04/26/2019) 100 tablet 11 ALLERGY Allergies Allergen Reactions ??? Nkda [No Known Drug Allergies] ??? Seasonal Allergies IMMUNIZATIONS Immunization History Administered Date(s) Administered ??? [...] IM > 6 months Valent IIV4 03/30/2016, 04/26/2019 ??? MMR 03/26/2003, 03/29/2007 ??? Meningococcal (Menactra??) 01/18/2014, 04/26/2019 ? ? Pneumo Conj 13-V (2010&after) 06/02/2011 ??? Pneumococcal (PCV 7) 2002, 2002, 2002 ??? Poliovirus, inactivated (IPV) 2002, 2002, 2002, 03/29/2007 ??? TDAP Vaccine (Adacel) 01/18/2014 ??? Varicella 03/26/2003, 03/29/2007 HEALTH HISTORY SINCE LAST VISIT No surgery, major illness or injury since last physical exam ROS Constitutional, eye, ENT, skin, respiratory, cardiac, GI, MSK, neuro, and allergy are normal except as otherwise noted. This document serves as a record of the services and decisions personally performed and made by Queta Fritz MD. It was created on his behalf by Mike Sparks, a trained medical cost consultant. The creation of this document is based the provider's statements to the medical cost consultant. Mike Sparks April 26, 2019 3:51 PM OBJECTIVE: EXAM BP 123/82 (BP Location: Left arm, Patient Position: Sitting, Cuff Size: Adult Regular) Pulse 100 Temp 98 ??F (36.7 ??C) (Oral) Resp 20 Ht 5' 7.75 (1.721 m) Wt 174 lb 6.4 oz (79.1 kg) LMP 03/29/2019 (Approximate) SpO2 98% No BMI 26.71 kg/m?? 92 %ile based on CDC (Girls, 2-20 Years) Stywzuq-pjy-rvl data based on Stature recorded on 04/26/2019. 95 %ile based on CDC (Girls, 2-20 Years) [id number] data based on Weight recorded on 04/26/2019. 90 %ile based on [facility] (Girls, 2-20 Years) BMI-for-age based on body measurements available as of 04/26/2019. Blood pressure reading is in the Stage 1 hypertension range (BP >= 130/80) based on the 2017 AAP Clinical Practice Guideline. GENERAL: Talkative and happy. Active, alert, in no acute distress. SKIN: Acne rash on the forehead, mild, no scars. Clear. No significant rash, abnormal pigmentation or [...] -F: Normal female external genitalia, Amadeo stage 5. BREASTS: Amadeo stage 5. No abnormalities. ASSESSMENT/PLAN: ICD-10-CM 1. Encounter for routine child health examination w/o abnormal findings Z00.129 PURE TONE HEARING TEST, AIR SCREENING, VISUAL ACUITY, QUANTITATIVE, BILAT BEHAVIORAL / EMOTIONAL ASSESSMENT [40695] Chlamydia trachomatis PCR Neisseria gonorrhoeae PCR 2. Weight loss R63.4 CBC with platelets differential Erythrocyte sedimentation rate auto CRP inflammation Iron and iron binding capacity Ferritin Albumin level 3. Mild anemia D64.9 Anticipatory Guidance Reviewed Anticipatory Guidance in patient instructions Preventive Care Plan Immunizations See orders in EpicCare. I reviewed the signs and symptoms of adverse effects and when to seek medical care if they should arise. Referrals/Ongoing Specialty care: Ongoing Specialty care by psychiatry, skilled nursing, ped GI See other orders in [facility]. Cleared for sports: Not addressed BMI at 90 %ile based on CDC (Girls, 2-20 Years) BMI-for-age based on body measurements available as of 04/26/2019. OBESITY ACTION PLAN ?? Exercise and nutrition counseling performed FOLLOW-UP: ?? in 1 year for a Preventive Care visit ACUTE/CHRONIC: Weight loss and persistent mild anemia. Work up by GI is negative weight loss may be due to improved like style. Labs as noted are indicated for investigation. Contraceptive management: Reviewed the pros and cons of this medicaiton. It is indicated due to discomfort, anemia and becauseMahi is a vulnerable child. I recommend having periods once every 3 months normally with control. At most, you can go longer, up to once in 6 months, but only for special events. STI testing per protocol Abdominal Pain Followed by Pediatric GI for this. So far, tests have come back normal. Tends to flare-up at school. Behavioral Problems Follows psychiatry. Resources HPV and Cancer Prevention: What Parents Should Know What Kids Should Know About HPV and Cancer Goal Tracker: Be More Active Goal Tracker: Less Screen Time Goal Tracker: Drink More Water Goal Tracker: Eat More Fruits and Veggies [place] Child and Teen Checkups (C&TC) Schedule of Age-Related Screening Standards The information in this document, created by the medical cost consultant for me, accurately reflects the services I personally performed and the decisions made by me. I have reviewed and approved this document for accuracy prior to leaving the patient care area . Queta Fritz MD April 26, 2019 4:28 PM Queta Fritz MD [facility] TENANCE OF WAY FOREMAN documented in this encounter Nursing Notes Queta Licea, LINING LAYER - 04/26/2019 3:15 PM CDT VISION No corrective lenses Tool used: Hernandez Right eye: 10/10 (20/20) Left eye: 10/10 (20/20) Visual Acuity: Pass H Plus Lens Screening: Pass HEARING FREQUENCY Right Ear: 1000 Hz RESPONSE- on Level: 40 db (Conditioning sound) 1000 Hz: RESPONSE- on Level: 20 db 2000 Hz: RESPONSE- on Level: 20 db 4000 Hz: RESPONSE- on Level: 20 db Left Ear: 4000 Hz: RESPONSE- on Level: 20 db 2000 Hz: RESPONSE- on Level: 20 db 1000 Hz: RESPONSE- on Level: 20 db 500 Hz: RESPONSE- on Level: 25 db Right Ear: 500 Hz: RESPONSE- on Level: 20 db Hearing Acuity: Pass Hearing Assessment: Queta Licea CMA TENANCE OF WAY FOREMAN Yolie De La Torre MA - 04/26/2019 3:15 PM CDT Prior to injection verified patient identity using patient's name and date of . Screening Questionnaire for Pediatric Immunization Is the child sick today? No Does the child have allergies to medications, food a vaccine component, or latex? No Has the child had a serious reaction to a vaccine in the past? No Has the child had a health problem with lung, heart, kidney or metabolic disease (e.g., diabetes), asthma, or a blood disorder? Is he/she on long-term aspirin therapy? No If the child to be vaccinated is 2 through 4 years of age, has a healthcare provider told you that the child had wheezing or asthma in the past 12 months? No If your child is a baby, have you ever been told he or she has had intussusception ? No Has the child, sibling or parent had a seizure, has the child had brain or other nervous system problems? No Does the child have cancer, leukemia, AIDS, or any immune system problem? No In the past 3 months, has the child taken medications that affect the immune system such as prednisone, other steroids, or anticancer drugs; drugs for the treatment of rheumatoid arthritis, Crohn???s disease, or psoriasis; or had radiation treatments? No In the past year, has the child received a transfusion of blood or blood products, or been given immune (gamma) globulin or an antiviral drug? No Is the child/teen or is there a chance that she could become during the next month? No Has the child received any vaccinations in the past 4 weeks? No Immunization questionnaire answers were all negative. [place] eligibility self-screening form given to patient. Per orders of Dr. Catrina M.D. , injection of Menactra and Influenza given by ORLANDO Roblero. Patient instructed to remain in clinic for 15 minutes afterwards, and to report any adverse reaction to me immediately. Screening performed by ORLANDO Roblero on 03/10/2017 at 12:20 PM. documented in this encounter Plan of Treatment Not on filedocumented as of this encounter Procedures Procedure Name Priority Date/Time Associated Comments Diagnosis CBC WITH PLATELETS & Routine 04/26/2019 4:33 PM Weight loss R esults for this DIFFERENTIAL CDT procedure are i n the results section. IRON AND IRON BINDING Routine 04/26/2019 4:33 PM Weight loss Results for this CAPACITY CDT procedure are i n the results section. FERRITIN Routine 04/26/2019 4:33 PM Weight loss Results f or this CDT procedure are i n the results section. ERYTHROCYTE Routine 04/26/2019 4:33 PM Weight loss Results f or this SEDIMENTATION RATE CDT procedure are in AUTO the results section. CRP INFLAMMATION Routine 04/26/2019 4:33 PM Weight loss Resul ts for this CDT procedure are i n the results section. ALBUMIN LEVEL Routine 04/26/2019 4:33 PM Weight loss Results for this CDT procedure are i n the results section. NEISSERIA GONORRHOEAE Routine 04/26/2019 4:27 PM Encounter for Results for this PCR CDT routine child procedure are in health examination the resul ts w/o abnormal section. findings CHLAMYDIA TRACHOMATIS Routine 04/26/2019 4:27 PM Encounter for Results for this PCR CDT routine child procedure are in health examination the resul ts w/o abnormal section. findings HC SCREENING TEST, Routine 04/26/2019 4:15 PM Encounter for PURE TONE, AIR ONLY CDT routine child health examination w/o abnormal findings documented in this encounter Results Albumin level (04/26/2019 4:33 PM CDT) P athologist Signature Albumin 3.6 3.4 - 5.0 04/27/2019 [facility] g/dL 1:59 PM CDT [facility] Specimen Anatomical Collection Method Collection Time Receive d Time (Source) Location / / Volume Laterality Blood specimen 04/26/2019 4:33 PM 019 4:34 (specimen) CDT PM CDT Betito Mccloud APRN, CNP LAB - BLOOD ORDERABLE S Performing Organization Address City/State/ZIP Code Phon e Number [facility] [address] [place] [address] Ferritin (04/26/2019 4:33 PM CDT) P athologist Signature Ferritin 27 12 - 150 04/27/2019 [facility] ng/mL 2:11 PM CDT [facility] Specimen Anatomical Collection Method Collection Time Receive d Time (Source) Location / / Volume Laterality Blood specimen 04/26/2019 4:33 PM 019 4:34 (specimen) CDT PM CDT Betito Mccloud APRN CORE JAVA SOFTWARE ENGINEER LAB - BLOOD ORDERABLE S Performing Organization Address City/[facility]/ZIP Code Phon e Number [facility] [address] [place] [address] (ABNORMAL) Iron and iron binding capacity (04/26/2019 4:33 PM CDT) [facility] gist Method Time Signature Iron 78 35 - 180 04/27/2019 [facility] ug/dL 2:07 PM CDT [facility] Iron Binding 525 (H) 240 - 430 04/27/2019 [facility] Cap ug/dL 2:[address] [facility] Iron Saturation 15 15 - 46 % 04/27/2019 [facility] Index 2:[address] [facility] Specimen Anatomical Collection Method Collection Time Receive d Time (Source) Location / / Volume Laterality Blood specimen 04/26/2019 4:33 PM 019 4:34 (specimen) CDT PM CDT Betito Mccloud APRN, CNP LAB - BLOOD ORDERABLE S Performing Organization Address City/State/ZIP Code Phon e Number M [facility] [address] [address] [phone] [facility] [address] [place], [place] [address] [facility] [address] [address], U [phone] CRP inflammation (04/26/2019 4:33 PM CDT) Analysis Performed At Patho logist Time Signature CRP Inflammation 7.1 0.0 - 8.0 04/27/2019 [facility] [place] mg/L 2:[address] [facility] Specimen Anatomical Collection Method Collection Time Receive d Time (Source) Location / / Volume Laterality Blood specimen 04/26/2019 4:33 PM 019 4:34 (specimen) CDT PM CDT Betito Mccloud APRN CORE JAVA SOFTWARE ENGINEER LAB - BLOOD ORDERABLE S Performing Organization Address City/State/ZIP Code Phon e Number [facility] [address] [place] [address] [facility] (ABNORMAL) Erythrocyte sedimentation rate auto (04/26/2019 4:33 PM CDT) P athologist Signature Sed Rate 26 (H) 0 - 20 mm/h 04/26/2019 [facility] 5:02 PM CDT [facility] Specimen Anatomical Collection Method Collection Time Receive d Time (Source) Location / / Volume Laterality Blood specimen 04/26/2019 4:33 PM 019 4:34 (specimen) CDT PM CDT Betito Mccloud APRN, CNP LAB - BLOOD ORDERABLE S Performing Organization Address City/State/ZIP Code Phon e Number [facility] [address] [place], [place] [address] [address] (ABNORMAL) CBC with platelets differential (04/26/2019 4:33 PM CDT) Patholo gist Method Time Signature WBC 6.3 4.0 - 04/26/2019 [facility] 11.0 4:57 PM CDT [facility] 10e9/L [place] RBC Count 3.99 3.7 - 5.3 04/26/2019 [facility] 10e12/L 4:57 PM CDT [facility] [place] Hemoglobin 10.4 (L) 11.7 - 04/26/2019 [facility] 15.7 g/dL 4:57 PM CDT [facility] Hematocrit 32.8 (L) 35.0 - 04/26/2019 [facility] 47.0 % 4:57 PM CDT [facility] MCV 82 77 - 100 04/26/2019 [facility] fl 4:57 PM CDT [facility] [place] MCH 26.1 (L) 26.5 - 04/26/2019 [facility] 33.0 pg 4:57 PM CDT [facility] [place] MCHC 31.7 31.5 - 04/26/2019 [facility] 36.5 g/dL 4:57 PM CDT [facility] [place] RDW 13.4 10.0 - 04/26/2019 [facility] 15.0 % 4:57 PM CDT [facility] Platelet Count 357 150 - 450 04/26/2019 [facility] 10e9/L 4:57 PM CDT [facility] [place] Diff Method Automated 04/26/2019 [facility] Method 6:03 PM CDT [facility] [place] % Neutrophils 42.3 % 04/26/2019 [facility] 6:03 PM CDT [facility] [place] % Lymphocytes 51.1 % 04/26/2019 [facility] 6:03 PM CDT [facility] [place] % Monocytes 5.5 % 04/26/2019 [facility] 6:03 PM CDT [facility] [place] % Eosinophils 0.8 % 04/26/2019 [facility] 6:03 PM CDT [facility] [place] % Basophils 0.3 % 04/26/2019 [facility] 6:03 PM CDT [facility] [place] Absolute 2.7 1.3 - 7.0 04/26/2019 [facility] Neutrophil 10e9/L 6:03 PM CDT [facility] Absolute 3.2 1.0 - 5.8 04/26/2019 [facility] Lymphocytes 10e9/L 6:03 PM CDT [facility] Absolute 0.4 0.0 - 1.3 04/26/2019 [facility] Monocytes 10e9/L 6:03 PM CDT [facility] [place] Absolute 0.1 0.0 - 0.7 04/26/2019 [facility] Eosinophils 10e9/L 6:03 PM CDT [facility] [place] Absolute 0.0 0.0 - 0.2 04/26/2019 [facility] Basophils 10e9/L 6:03 PM CDT [facility] Specimen Anatomical Collection Method Collection Time Receive d Time (Source) Location / / Volume Laterality Blood specimen 04/26/2019 4:33 PM 019 4:34 (specimen) CDT PM CDT Betito Mccloud APRN CORE JAVA SOFTWARE ENGINEER LAB - BLOOD ORDERABLE S Performing Organization Address City/State/ZIP Code Phon e Number [facility] [address] [place] [address] [address] Neisseria gonorrhoeae PCR (04/26/2019 4:27 PM CDT) Analysis Performed At Patho logist Time Signature Specimen Vagina 04/26/2019 [facility] Descrip 5:32 PM CDT [facility] N Gonorrhea Negative NEG^Negati 04/28/2019 INFECTIOUS PCR ve 12:57 PM CDT [facility] Comment: Negative for N. gonorrhoeae rRNA by cherry scription mediated amplification. A negative result by tablet repair media valdemar amplification does not preclude the presence of N. gonorrhoeae infection because results are dependent on proper and adequate collection, absence of inhibitors, and sufficient rRNA to be detected. Specimen Anatomical Collection Method Collection Time Receive d Time (Source) Location / / Volume Laterality Specimen from 04/26/2019 4:27 PM 04/26/20 19 5:31 vagina CDT PM CDT (specimen) Queta Fritz MD LAB - MICRO GENERAL ORDERABL ES Performing Organization Address City/State/ZIP Code Phon e Number [facility] [address] [place] [address] [facility] [address] [place] [address] [place] [address] [facility] [address] [place] [address], [facility] Chlamydia trachomatis PCR (04/26/2019 4:27 PM CDT) Patholo gist Method Time Signature Specimen Vagina 04/26/2019 [facility] Description 5:32 PM CDT [facility] Chlamydia Negative NEG^Negat 04/28/2019 INFECTIOUS Trachomatis PCR eunice 12:57 PM CDT [facility] Comment: Negative for C. trachomatis rRNA by cherry scription mediated amplification. A negative result by tablet repair media valdemar amplification does not preclude the presence of C. trachomatis infection because results are dependent on proper and adequate collection, absence of inhibitors, and sufficient rRNA to be detected. Specimen Anatomical Collection Method Collection Time Receive d Time (Source) Location / / Volume Laterality Specimen from 04/26/2019 4:27 PM 04/26/20 19 5:31 vagina CDT PM CDT (specimen) Queta Fritz MD LAB - MICRO GENERAL ORDERABL ES Performing Organization Address City/State/ZIP Code Phon e Number INFECTIOUS DISEASES [address] [place] [address] DIAGNOSTIC LABORATORY, [facility] [address] [place] [address] [address] INFECTIOUS DISEASES [address] [place] [address], [place] DIAGNOSTIC LABORATORY documented in this encounter Visit Diagnoses Diagnosis Encounter for routine child health exam[facility] emergency department w/o abnormal findings - Primary Routine or child health check Weight loss Loss of weight Mild anemia Anemia, unspecified documented in this encounter Additional Health Concerns Assessment Noted Time PHQ-9 Depression Total Score: 19 04/26/2019 5:13 PM CD T documented as of this encounter Care Teams Library Science Instructor Relationship Specialty Start Date End Date Queta Fritz MD PCP - General Pediatrics 12/19/15 05/27/20 [address] [place] [address] Queta Fritz MD Assigned PCP 03/04/14 04/12/21 [address] [place] [id number] documented as of this encounter
--- OUTSIDE RECORDS SUMMARY | 2022-04-23 23:44 | XMS_ITS | Encounter Summary ---
:2000 Author Organization [facility] Address [address] [place] [address] Care Team Providers Name Role Phone Queta Fritz MD Primary Care Provider [phone] Queta Fritz MD Unavailable [phone] Reason for Referral Other (Routine) - Closed Specialty Diagnoses / Procedures Referred By Contact Refer red To Contact Diagnoses Suspected COVID-19 virus infection [facility] [address] [phone] Phone: Referral ID Status Reason Start Date Expiration Date Visits Requ ested Visits Authorized [id number] Closed 11/04/2019 11/03/2020 1 1 Reason for Visit Reason Onset Date Comments Covid 19 Testing 02/29/2020 Encounter Details Date Type Department Care Team Description 11/04/[address] [facility] Urgent Simran pected Covid-19 Virus Care [place] Infection (Primary Dx) [address] [address] Social History Tobacco Use Types Packs/Day [...] or relatives? How often do you attend judaism or Never 2018 lutheran services? 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 documented as of this encounter Patient Instructions Patient InstructionsMegan Mcintyre MA - 11/04/2019 9:30 AM CDT Instructions for Patients It is recommended that you go to one of our designated COVID-19 testing centers to get a test done from your car. To do this follow these instructions: To schedule an appointment for curbside testing: ?? Provider/Staff to call and schedule the patient for the appointment per the System Ambulatory Workflow recommendations ?? Be sure to obtain details about the patients car for the medical manager You will be scheduled at one of our dedicated testing centers at one of the following locations: ?? Walk-in Care: [facility] at [address] [facility] [address] [place] [address] ?? Urgent Care: [facility] at [address] [address] What to expect: ?? When you arrive please come park in the parking lot. ?? You will stay in your car the entire time ?? You will then be met by a provider who will perform a brief assessment while you are in your car and collect samples to send for COVID-19, influenza and possibly RSV testing. ?? We will call you with the results. Isolate Yourself: ?? Isolate yourself while traveling. ?? Do Not allow any visitors within 6 feet. ?? Do Not go to work or school. ?? Do Not go to judaism, children librarian centers, shopping, or other public places. ?? Do Not shake hands. ?? Avoid close contact with others (hugging, kissing). Protect Others: ?? Cover Your Mouth and Nose with a mask, disposable tissue or wash cloth to avoid spreading germs to others. ?? Wash your hands and face frequently with soap and water Fever Medicines: ?? For fever relief, take acetaminophen or ibuprofen. ?? Treat fevers above 101?? F (38.3?? C) to lower fevers and make you more comfortable. ?? Acetaminophen (e.g., Tylenol): Take 650 mg (two 325 mg pills) by mouth every 4-6 hours as needed of regular strength Tyleno or 1,000 mg (two 500 mg pills) every 8 hours as needed of Extra Strength Tylenol. ?? Ibuprofen (e.g., Motrin, Advil): Take 400 mg (two 200 mg pills) by mouth every 6 hours as needed. ?? Acetaminophen is thought to be safer than ibuprofen or naproxen for people over 65 years old. Acetaminophen is in many OTC and prescription medicines. It might be in more than one medicine that you are taking. You need to be careful and not take an overdose. Before taking any medicine, read all theinstructions on the package. ?? Caution -NSAIDs (e.g., ibuprofen, naproxen): Do not take nonsteroidal anti- inflammatory drugs (NSAIDs) if you have stomach problems, kidney disease, heart failure, or other contraindications to using this type of medicine. Do not take NSAID medicines for over 7 days without consulting your PCP. Do not take NSAID medicines if you are . Do not take NSAID medicines if you are also taking blood thinners. Call Back If: Breathing difficulty develops or you become worse. Thank you for limiting contact with others, wearing a simple mask to cover your cough, practice goodhand hygiene habits and accessing our virtual services where possible to limit the spread of this virus. For more information about COVID19 and options for caring for yourself at home, please visit the CDCwebsite at https://www.cdc.gov/coronavirus/2019-ncov/about/fjpwv-oacg-cneq.html For more options for care at [facility], please visit our website at [email or web address] documented in this encounter Progress Notes Estefanía Mckinney CMA - 11/04/2019 9:30 AM CDT COVID-19 PCR test completed. Patient handout For Patients Who Have Been Tested for Covid-19 (Coronavirus) was given to the patient, which includes test result notification process. documented in this encounter Plan of Treatment Not on filedocumented as of this encounter Procedures Procedure Name Priority Date/Time Associated Diagnosis Comme nts SARS-COV-2 Routine 11/04/2019 9:50 AM Suspected Covid-19 Res ults for this (COVID-19) VIRUS CDT Virus Infection procedur e are in RT-PCR the results section. COVID-19 VIRUS Routine 11/04/2019 9:50 AM Suspected Covid-19 R esults for this (CORONAVIRUS) BY CDT Virus Infection procedur e are in PCR the results section. documented in this encounter Results SARS-CoV-2 COVID-19 Virus (Coronavirus) RT-PCR Nasopharyngeal (11/04/2019 9:50 AM CDT) [facility] Method Time Signature SARS-CoV-2 Nasopharyngeal 11/04/2019 INFECTIOUS Virus 7:33 PM CDT DISEASES Specimen DIAGNOSTIC Source LABORATORY SARS-CoV-2 NEGATIVE 11/04/2019 INFECTIOUS PCR Result 7:33 PM CDT DISEASES DIAGNOSTIC LABORATORY Comment: SARS-CoV2 (COVID-19) RNA not de tected, presumed negative. SARS-CoV-2 PCR The Simplexa COVID-19 direct PCR assay by [employer] on the Pelago instrument has been 11/04/2019 7:33 PM INFECTIOUS Comment given Emergency Use Authoriz ation (EUA) for the in vitro qualitative detection of RNA from CDT DISEASES the SARS-CoV2 virus in naso pharyngeal swabs in viral transport medium from patients with DIAGNOSTIC signs and symptoms of infect ion who are suspected of COVID-19. Performance is unknown in LABORATORY asymptomatic patients. Comment: Nasopharyngeal specimen is the preferred choice for swab-based SARS-CoV2 testing. Sample types other than nasopha ryngeal swabs were not included in the EUA. The test result from other sample types must be integrated into clinical context for interpretation. A negative result does not rule out the presence of real-time PCR inhibitors in the specimen or COVID-19 RNA in ru ntration below the limit of detection of the assay. The possibility of a false negative should be considered if the patients recent exposure or clinical pre sentation suggests COVID-19. Additional testing or repeat testing req uires consultation with the laboratory. Positive results should also be reported in accordance with local, state, and federal regulations. This test was valid ated by [facility] Infectious Diseases Diagnostic Laboratory. This lab oratory is certified under the Clinical Laboratory Improvement Amendmen ts of 1988 (CLIA-88) as qualified to perform high complexity clinical laborat ory testing. Specimen (Source) Anatomical Collection Method Collection Time Re ceived Time Location / / Volume Laterality Specimen from 11/04/2019 9:50 11/04/2019 nasopharyngeal AM CDT 10:47 AM CDT structure (specimen) Darrel Jamison MD LAB - MICRO GENERAL ORDERABL ES Performing Organization Address City/[facility]/ZIP Code Phon e Number INFECTIOUS DISEASES [address] [place] [address] DIAGNOSTIC LABORATORY, [facility] INFECTIOUS DISEASES [address] [place] [address], A DIAGNOSTIC LABORATORY COVID-19 Virus (Coronavirus) by PCR Nasopharyngeal (11/04/2019 9:50 AM CDT) Component Value Ref Test Analysis Performed At [facility] gist Range Method Time Signature COVID-19 Nasopharyngeal 11/04/2019 [place] Virus PCR to 10:47 AM CLINICS [facility] [place] - CDT [facility] COVID-19 Test received-See 11/04/2019 INFECTIOUS Virus PCR to reflex to IDDL 2:32 PM CDT DISEASES [facility] [place] - test SARS CoV2 DIAGNOSTIC Result (COVID-19) Virus LABORATORY RT-PCR Specimen (Source) Anatomical Collection Method Collection Time Re ceived Time Location / / Volume Laterality Specimen from 11/04/2019 9:50 11/04/2019 nasopharyngeal AM CDT 10:47 AM CDT structure (specimen) Darrel Jamison MD LAB - MICRO GENERAL ORDERABL ES Performing Organization Address City/[facility]/ZIP Code Phon e Number INFECTIOUS DISEASES [address] [place] [address] DIAGNOSTIC LABORATORY, [facility] [address] [place] [address] [facility] INFECTIOUS DISEASES [address] [place] [address], A DIAGNOSTIC LABORATORY documented in this encounter Visit Diagnoses Diagnosis Suspected COVID-19 virus infection - Obdulia mavis documented in this encounter Additional Health Concerns Assessment Noted Time PHQ-9 Depression Total Score: 19 04/26/2019 5:13 PM CD T documented as of this encounter Care Teams Hog Feeder Relationship Specialty Start Date End Date Queta Fritz MD PCP - General Pediatrics 12/19/15 05/27/20 [address] [place] [address] [phone] Queta Fritz MD Assigned PCP 03/04/14 04/12/21 [address] [place] [address] [phone] documented as of this encounter
--- OUTSIDE RECORDS SUMMARY | 2022-04-23 23:44 | XMS_ITS | Encounter Summary ---
:2000 Author Organization [facility] Address [address] [place] [address] Care Team Providers Name Role Phone Queta Fritz MD Primary Care Provider [phone] Queta Fritz MD Unavailable [phone] Encounter Details Date Type Department Care Team Description 11/03/2019 Virtual Visit [facility] Will[facility] Desai, [address] [place] [address] [place] [address] [phone] Social History Tobacco Use Types Packs/Day Years Used Date Never Assessed Alcohol Habits Answer Date Recorded How often [...] do you attend zoroastrian or Never 2018 uatsdin services? Do you [...] place to sleep or slept in a half-way (including now)? 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 documented as of this encounter Progress Notes Willow Deasi PA-C - 11/03/2019 3:39 PM CDT Date: 11/03/2019 14:39:13 Clinician: Willow Desai Clinician Patient: Mahi Faye Patient : 2000 Patient Address: [address] [place] [address] Patient Visit Protocol: URI Patient Summary: Mahi is a 19 year old ( : 2000 ) female who initiated a Visit for COVID-19 (Coronavirus) evaluation and screening. When asked the question Please sign me up to receive news, health information and promotions. , Mahi responded No. The patient is a minor and has consent from a parent/guardian to receive medical care. The following medical history is provided by the patient's parent/guardian. Mahi states her symptoms started today. Her symptoms consist of myalgia,nausea, a headache, a sore throat, a cough, and malaise. Mahi also feels feverish. Symptom details Cough: Mahi coughs a few times an hour and her cough is not more bothersome at night. Phlegm does not come into her throat when she coughs. She does not believe her cough is caused by post-nasal drip. Sore throat: Mahi reports having mild throat pain (1-3 on a 10 point pain scale), does not have exudate on her tonsils, and can swallow liquids. The lymph nodes in her neck are not enlarged. A rashhas not appeared on the skin since the sore throat started. Temperature: Her current temperature is 100.5 degrees Fahrenheit. Mahi has had a temperature over 100 degrees Fahrenheit for 1-2 days. Headache: She states the headache is mild (1-3 on a 10 point pain scale). Mahi denies having rhinitis, enlarged lymph nodes, chills, diarrhea, facial pain or pressure, vomiting, teeth pain, wheezing, nasal congestion, and ear pain. She also denies taking antibiotic medication for the symptoms, having a sinus infection within the past year, and having recent facial or sinus surgery in the past 60 days. She is not experiencing dyspnea. Precipitating events Within the past week, Mahi has not been exposed to someone with strep throat. She has not recently been exposed to someone with influenza. Mahi has not been in close contact with any high risk individuals. Pertinent COVID-19 (Coronavirus) information Mahi has not traveled internationally or to the areas where COVID-19 (Coronavirus) is widespread, including cruise ship travel in the last 14 days before the start of her symptoms. Mahi does not work or volunteer as healthcare worker or a sampler first and does not work or volunteer in a healthcare facility. She lives with a healthcare worker. Mahi has had a close contact with a laboratory-confirmed COVID-19 patient within 14 days of symptom onset. She has not had a close contact with a suspected COVID-19 patient within 14 days of symptom onset. 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 Weight: 178 lbs Mahi does not smoke or use smokeless tobacco. Shedenies and denies . Her last period was over a month ago. Additional information as reported by the patient (free text): Mahi lives in a fci setting with rotating staffand another vulnerable peer- we would like a Covid-19 test so we can appropriately screen and test other vulnerable individuals as well as staff Height: 5 ft 9 in Weight: 178 lbs MEDICATIONS: levonorgestrel-ethinyl estradiol oral, metformin oral, calcium carbonate-calcium citrate-vitamin D3 oral, cholecalciferol (vitamin D3)-vitamin K2 oral, quetiapine oral, ALLERGIES: NKDA Clinician Response: Dear Mahi, Dear Mahi Your symptoms show that you may have coronavirus (COVID-19). This illness can cause fever, cough and trouble breathing. Many people get a mild case and get better on their own. Some people can get very sick. Will I be tested for COVID-19? Because the virus is spreading, we are no longer testing most patients. You may request testing if: You are very ill.For example, you're on chemotherapy, dialysis or home hospice care. (Contact your specialty clinic or program.) You live in a jail or other long-term care facility. (Talk to your nurse monitoring manager or emergency medicine medical director.) You're a health care worker. (Contact your employee health office.) How can I pr otect others? Without a test, we can't know for sure that you have COVID-19. For safety, it's very important to follow these rules. First, stay home and away from others (self-isolate) until: You've had no fever---and no medicine that reduces fever---for 3 full days (72 hours). And... Your other symptoms have gotten better. For example, your cough or breathing has improved. And... At least 7 days have passed since your symptoms started. During this time: Don't go to work, school or anywhere else. Stay away from others in your home. No hugging, kissing or shaking hands. Don't let anyone visit. Coveryour mouth and nose with a mask, tissue or wash cloth to avoid spreading germs. Wash your hands and face often. Use soap and water. How can I take care of myself? 1.Take Tylenol (acetaminophen) for fever or pain. If you have liver or kidney problems, ask your family doctor if it's okay to take Tylenol. Adults can take either: 650 mg (two 325 mg pills) every 4 to 6 hours, or... 1,000 mg (two 500 mg pills) every 8 hours as needed. Note: Don't take more than 3,000 mg in one day. For children, check theTylenol bottle for the right dose. The dose is based on the child's age or weight. 2.If you have other health problems (like cancer, heart failure, an organ transplant or severe kidney disease): Call your specialty clinic if you don't feel better in the next 2 days. 3.Know when to call 911: If your breathing is so bad that it keeps you from doing normal activities, call 911 or go to the emergency room. Tell them that you've been staying home and may have COVID-19. Where can I get more information? To learn more about COVID-19 and how to care for yourself at home, please visit the CDC website at http s://www.cdc.gov/coronavirus/2019-ncov/about/kajoe-lbar-ddfm.html. For more about your care at [facility], please visit [email or web address] Diagnosis: Cough Diagnosis ICD: R05 documented in this encounter Plan of Treatment Not on filedocumented as of this encounter Visit Diagnoses Not on filedocumented in this encounter Additional Health Concerns Assessment Noted Time PHQ-9 Depression Total Score: 19 04/26/2019 5:13 PM CD T documented as of this encounter Care Teams Mental Health Program Manager Relationship Specialty Start Date End Date Queta Fritz MD PCP - General Pediatrics 12/19/15 05/27/20 [address] [place] [phone] Queta Fritz MD Assigned PCP 03/04/14 04/12/21 [address] [place] [address] [phone] documented as of this encounter
--- OUTSIDE RECORDS SUMMARY | 2022-04-23 23:44 | XMS_ITS | Encounter Summary ---
:2000 Author Organization [facility] Address [address] [place] [address] Care Team Providers Name Role Phone Queta Fritz MD Primary Care Provider [phone] Queta Fritz MD Unavailable [phone] Encounter Details Date Type Department Care Team Description 11/13/2019 Travel Social History Tobacco Use Types Packs/Day [...] you attend roman catholic or Never 2018 christianity services? 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 documented as of this encounter Plan of Treatment Not on filedocumented as of this encounter Visit Diagnoses Not on filedocumented in this encounter Additional Health Concerns Assessment Noted Time PHQ-9 Depression Total Score: 7 11/13/2019 11:26 AM CD T documented as of this encounter Care Teams Bulk Sugar Handler Relationship Specialty Start Date End Date Queta Fritz MD PCP - General Pediatrics 12/19/15 05/27/20 [address] [place] [phone] Queta Fritz MD Assigned PCP 03/04/14 04/12/21 [address] [place] [address] documented as of this encounter
--- OUTSIDE RECORDS SUMMARY | 2022-04-23 23:44 | XMS_ITS | Encounter Summary ---
:2000 Author Organization [facility] Address [address] [place] [address] Care Team Providers Name Role Phone Queta Fritz MD Primary Care Provider Queta Fritz MD Unavailable Encounter Details Date Type Department Care Team Description 03/30/2019 Travel Social History Tobacco Use Types Packs/Day [...] do you attend zoroastrianism or Never 2018 synagogue services? 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
--- OUTSIDE RECORDS SUMMARY | 2022-04-23 23:44 | XMS_ITS | Encounter Summary ---
:2000 Author Organization [facility] Address [address] [place] [address] Care Team Providers Name Role Phone Queta Fritz MD Primary Care Provider Queta Fritz MD Unavailable [phone] Reason for Visit Reason Onset Date Comments Symptoms 11/09/2019 Fever Encounter Details Date Type Department Care Team Description 11/09/2019 Telephone [facility] Tiffanie Fritz Symptoms (Fever) Krystle De Jesus MD [address] [place] [address] [address] [place], [place] [address] (Wo rk) Social History Tobacco Use Types [...] do you attend jew or Never 2018 caodaism services? 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 documented as of this encounter Miscellaneous Notes Telephone Encounter - Iris Hargrove RN - 11/09/2019 3:30 PM CDT Call to longterm. States fever was 101.9. Patient refused Tylenol. Repeat temperature was 102.4. Patient did agree to take Tylenol at that time. Repeat temperature was 96.6. Patient had gone for a walk prior to that so temperature may have been lower because she was cool. Patient has no other symptoms. Patient was COVID tested on Wednesday and it was negative. Advised to continue to monitor and callback with any concerning symptoms. Patient has been isolated to her longterm. Telephone Encounter - Zee Richey - 11/09/2019 11:23 AM CDT Meme from patient's longterm called to report fever of 101.9 today with no other symptoms. Please call her to advise at [phone] documented in this encounter Plan of Treatment Not on filedocumented as of this encounter Visit Diagnoses Not on filedocumented in this encounter Additional Health Concerns Assessment Noted Time PHQ-9 Depression Total Score: 19 04/26/2019 5:13 PM CD T documented as of this encounter Care Teams Director Network Development Relationship Specialty Start Date End Date Queta Fritz MD PCP - General Pediatrics 12/19/15 05/27/20 [address] [place] [address] [phone] Queta Fritz MD Assigned PCP 03/04/14 04/12/21 [address] [place] [phone] documented as of this encounter
--- OUTSIDE RECORDS SUMMARY | 2022-04-23 23:44 | XMS_ITS | Encounter Summary ---
:2002 Author Organization [facility] Address [address] [place] [address] Care Team Providers Name Role Phone Queta Fritz MD Primary Care Provider [phone] Queta Fritz MD Unavailable [phone] Reason for Referral Diagnostic Imaging MRI (Routine) - Closed Specialty Diagnoses / Procedures Referred By Contact Refer red To Contact Diagnoses Weight loss Abdominal pain, generalized Betito Mccloud, Procedures MR Enterography w Contrast MACHINE TOOL MECHANIC BUSINESS EDUCATION TEACHER [address] [facility] [address] [place], [place] [address] Referral ID Status Reason Start Date Expiration Date Visits Requ ested Visits Authorized [id number] Closed 08/09/2019 08/08/2020 1 1 Encounter Details Date Type Department Care Team Description 02/27/2019 Orders Only [facility] Betito Mccloud l oss (Primary Dx); [facility] Pediatric Tati Gaxiola BUSINESS EDUCATION TEACHER Abdominal pain, generalized Specialty Clinic [address] [facility] [address] [place], [place] [address] Bldg, 3rd Flr [address] [place], [place] [phone] (Wo rk) [id number] [phone] Social History Tobacco Use Types Packs/Day Years [...] or relatives? How often do you attend jehovah's witness or Never 2018 zoroastrianism services? 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 DAWNA ZUNIGA MD Betito Gaxiola Ame MACHINE TOOL MECHANIC BUSINESS EDUCATION TEACHER IMG MRI ORDERABLES documented in this encounter Visit Diagnoses Diagnosis Weight loss - Primary Loss of weight Abdominal pain, generalized Weight loss Loss of weight Abdominal pain, generalized documented in this encounter Additional Health Concerns Assessment Noted Time PHQ-9 Depression Total Score: 8 12/16/2018 4:14 PM CDT documented as of this encounter Care Teams Wireless Network Engineer Relationship Specialty Start Date End Date Queta Fritz MD PCP - General Pediatrics 12/19/15 05/27/20 [address] [place] [address] [id number] Queta Fritz MD Assigned PCP 03/04/14 04/12/21 [address] [place] [address] documented as of this encounter
--- OUTSIDE RECORDS SUMMARY | 2022-04-23 23:44 | XMS_ITS | Encounter Summary ---
:2002 Author Organization [facility] [place] Address [address] [place] [address] Care Team Providers Name Role Phone Queta Fritz MD Primary Care Provider [phone] Queta Fritz MD Unavailable [phone] Reason for Visit Reason Onset Date Comments Results 03/30/2019 MRE Encounter Details Date Type Department Care Team Description 03/30/2019 Telephone [facility] Betito Mccloud Results (MRE) Pediatric Specialty Clinic Vilma rehman APRN [address] [facility] [address] [place], [place] [address] [address] [place] [address] [phone] Social History Tobacco Use Types Packs/Day Years [...] do you attend baptism or Never 2018 spiritism services? 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 Also informed her that Betito Mccloud put in lab orders to be done next month when they see Dr. Fritz. Mom said that she stillcomplains a little about abdominal pain and has some loose stools on and off. Mom will call if any other specific concerns come up otherwise will wait to hear about lab results in April. Telephone Encounter - VikishannaHilda - 03/30/2019 12:05 PM CDT ----- Message from Betito Mccloud APRN CNP sent at 03/30/2019 10:18 AM CDT ----- Regarding: MRE results Can you let family know that today's MRE was normal. See how she has been feeling. She has a visit with her PCP in April. I would like her to have labs done at the same time, orders are in. Betito documented in this encounter Plan of Treatment Not on filedocumented as of this encounter Visit Diagnoses Not on filedocumented in this encounter Additional Health Concerns Assessment Noted Time PHQ-9 Depression Total Score: 8 12/16/2018 4:14 PM CDT documented as of this encounter Care Teams Systems Administrator Relationship Specialty Start Date End Date Queta Fritz MD PCP - General Pediatrics 12/19/15 05/27/20 [address] [place] [address] Queta Fritz MD Assigned PCP 03/04/14 04/12/21 [address] [place] [address] documented as of this encounter
--- OUTSIDE RECORDS SUMMARY | 2022-04-23 23:44 | XMS_ITS | Encounter Summary ---
:2002 Author Organization [facility] Address [address] [place] [address] Care Team Providers Name Role Phone Queta Fritz MD Primary Care Provider [phone] Queta Fritz MD Unavailable [phone] Encounter Details Date Type Department Care Team Description 11/04/2019 Travel Social History Tobacco Use Types Packs/Day [...] do you attend sikh or Never 2018 taoist services? 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
--- OUTSIDE RECORDS SUMMARY | 2022-04-23 23:44 | XMS_ITS | Encounter Summary ---
:2002 Author Organization [facility] Address [address] [place] [address] Care Team Providers Name Role Phone Queta Fritz MD Primary Care Provider [phone] Queta Fritz MD Unavailable [phone] Reason for Visit Reason Onset Date Comments Results 05/01/2019 Lab Encounter Details Date Type Department Care Team Description 05/01/2019 Telephone [facility] Christopher Fritz, Results (Lab) Krystle CORLEY [address] [place] [address] [place], [place] [id number] (Wo rk) Social History Tobacco Use Types [...] do you attend alevism or Never 2018 uatsdin services? 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 Mom verbalized understanding, will call back with further questions. Telephone Encounter - Queta Fritz MD - 05/05/2019 12:58 PM CDT Betito Mccloud felt that GI cause for the low HGB has been ruled out. She recommended [facility] [place]. However, Mahi has already tried a ferrous gluconate and this gave her significant constipation. Please let mother know that she has a mild anemia. Please advise that an increase in iron containing food is the best way to boost the iron without causing abdominal pain or constipation. It may be enough to work on these dietary recommendations only when Mahi is with mother, avoidingdifficulties with the nursing home. Heme iron is significantly better absorbed and this is especially true if eaten with foods high in Vit C like tomato or orange. Best source of heme iron includes liver and oysters, and very good sources include beef and sardines, quite good sources include any other meat or fish. Non heme iron is less well absorbed and includes that found in eggs, beans like lentils, veggies like spinach, and fortified grains. Telephone Encounter - Queta Fritz MD - 05/01/2019 5:41 PM CDT I am collaborating with Betito Mccloud on this question. Telephone Encounter - Usha Mckeon RN - 05/01/2019 3:08 PM CDT Mom calling secondary to patient's hemoglobin is down to 10.4 on 04/26/19. Please advise, thanks. Patient taking multivitamin and taking calcium and D3. Is there something else you want her to take or just monitor it. Mom concerned about changing her diet and this causing problems with the patient and the nursing home. Telephone Encounter - Leti Holder - 05/01/2019 1:51 PM CDT Mother calling back and she doesn't want any thing prescribed until she talks with the doctor. Ok tocall and lm [phone] Telephone Encounter - Zee Richey - 05/01/2019 10:37 AM CDT Patient called to discuss Hgb results and what she can do besides iron supplement. Please call mom Eleanor at [phone]. documented in this encounter Plan of Treatment Not on filedocumented as of this encounter Visit Diagnoses Not on filedocumented in this encounter Additional Health Concerns Assessment Noted Time PHQ-9 Depression Total Score: 19 04/26/2019 5:13 PM CD T documented as of this encounter Care Teams Patient Care Relationship Specialty Start Date End Date Queta Fritz MD PCP - General Pediatrics 12/19/15 05/27/20 [address] [place] [address] [id number] Queta Fritz MD Assigned PCP 03/04/14 04/12/21 [address] [place] [address] documented as of this encounter
--- OUTSIDE RECORDS SUMMARY | 2022-04-23 23:44 | XMS_ITS | Encounter Summary ---
:2002 Author Organization [facility] Address [address] [place] [address] Care Team Providers Name Role Phone Queta Fritz MD Primary Care Provider [phone] Queta Fritz MD Unavailable [phone] Reason for Visit Reason Onset Date Comments Symptoms 11/15/2019 Fever/Wound Update Encounter Details Date Type Department Care Team Description 11/15/2019 Telephone [facility] Qeuta Fritz oms (Fever/Wound Clinic Krystle De Jesus MD Update) [address] [place], [place] [address] [place], [place] [phone] (Wo rk) Social History Tobacco Use Types [...] do you attend hoahaoism or Never 2018 bahai services? 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 documented as of this encounter Miscellaneous Notes Telephone Encounter - Patricia Evans MD - 11/15/2019 2:09 PM CDT Spoke to staff. Had fever this am and none since. Does not seem sick otherwise but still complainingpain is not better. Told one staff she slept fine and another that she was up all night due the pain. They say when they look at area of pain on gluteal fold it really looks pretty normal. Sometimes seems to move around as if no pain and other times seems to be uncomfortable. Staff not sure if exaggerating symptoms but since persisting will bring back for further evaluation. Telephone Encounter - Sarai Hanna RN - 11/15/2019 1:59 PM CDT This telephone encounter routed to Dr. Norm Corrales. Please see messages below. Please advise, thanks. Telephone Encounter - Queta Fritz MD - 11/15/2019 1:50 PM CDT Patient seen Face to Face visit by Dr Patricia Corrales 2 days ago. Please huddle with her about this patient. Telephone Encounter - Sarai Hanna RN - 11/15/2019 11:43 AM CDT Spoke with Meme. She was told today by housekeeping lead that patient's wound looks much better--only slightly red now. However, patient is c/o pain (patient is unable to describe the pain--muscular, or sharp pain, etc). Temp this morning was 101.9 via forehead scanner. Next step? Antibiotic? Please advise, thanks. Telephone Encounter - Zee Richey - 11/15/2019 10:55 AM CDT Meme, coordinator at [facility]. [facility] home calls to report pt had fever of 101.9 this morning. She also reports the wound looks much better but patient is reporting it is very painful. Meme can be reached at [phone] documented in this encounter Plan of Treatment Not on filedocumented as of this encounter Visit Diagnoses Not on filedocumented in this encounter Additional Health Concerns Assessment Noted Time PHQ-9 Depression Total Score: 7 11/13/2019 11:26 AM CD T documented as of this encounter Care Teams Rubbish Collector Relationship Specialty Start Date End Date Queta Fritz MD PCP - General Pediatrics 12/19/15 05/27/20 [address] [place] [address] [id number] Queta Fritz MD Assigned PCP 03/04/14 04/12/21 [address] [place] [address] [phone] documented as of this encounter
--- OUTSIDE RECORDS SUMMARY | 2022-04-23 23:44 | XMS_ITS | Encounter Summary ---
:2002 Author Organization [facility] Address [address] [place] [address] Care Team Providers Name Role Phone Queta Fritz MD Primary Care Provider [phone] Queta Fritz MD Unavailable [phone] Reason for Visit Reason Onset Date Comments Lab Result Notice 05/01/2019 Encounter Details Date Type Department Care Team Description 05/01/2019 Telephone [facility] Betito Mccloud Lab Resu lt Notice Pediatric Specialty Tati Gaxiola [facility] [address] [facility] [address] [phone] (Wo rk) [phone] [phone] Social History Tobacco Use Types Packs/Day Years [...] do you attend confucianist or Never 2018 evangelical services? 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 Mom said that Dr. Fritz told Mahi to take iron supplements but it was causing constipation. Mom said that it was too much for Mahi to take the iron and miralax so they discontinued. Mom is going to talk with Dr. Fritz's nurse to inform them of this. Mom had no additional questions. documented in this encounter Plan of Treatment Not on filedocumented as of this encounter Visit Diagnoses Not on filedocumented in this encounter Additional Health Concerns Assessment Noted Time PHQ-9 Depression Total Score: 19 04/26/2019 5:13 PM CD T documented as of this encounter Care Teams Geodesist Relationship Specialty Start Date End Date Queta Fritz MD PCP - General Pediatrics 12/19/15 05/27/20 [address] [place] [address] Queta Fritz MD Assigned PCP 03/04/14 04/12/21 [address] [place] [address] documented as of this encounter
--- OUTSIDE RECORDS SUMMARY | 2022-04-23 23:44 | XMS_ITS | Encounter Summary ---
:2002 Author Organization [facility] Address [address] [place] [address] Care Team Providers Name Role Phone Queta Fritz MD Primary Care Provider [phone] Queta Fritz MD Unavailable [phone] Encounter Details Date Type Department Care Team Description 02/10/2019 Travel Social History Tobacco Use Types Packs/Day [...] do you attend judaism or Never 2018 hinduism services? 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
--- OUTSIDE RECORDS SUMMARY | 2022-04-23 23:44 | XMS_ITS | Encounter Summary ---
:2002 Author Organization [facility] Address [address] [place] [address] Care Team Providers Name Role Phone Queta Fritz MD Primary Care Provider [phone] Queta Fritz MD Unavailable [phone] Reason for Visit Reason Comments Buttock pain Encounter Details Date Type Department Care Team Description 11/13/2019 Office Visit [facility] Patricia Evans (Primary Dx); Clinic Krystle Huerta MD Pain in buttock; [address] [place] [address] [place], [place] [phone] (Wo rk) [address] [phone] Social History Tobacco Use Types Packs/Day Years [...] do you attend methodist or Never 2018 holiness services? 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 documented as of this encounter Last Filed Vital Signs Vital Sign Reading Time Taken Comments Blood Pressure 138/78 11/13/2019 2:28 PM CDT Pulse 99 11/13/2019 2:28 PM CDT Temperature 36.8 ??C (98.2 ??F) 11/13/2019 2:28 PM CDT Respiratory Rate 18 11/13/2019 2:28 PM CDT Oxygen Saturation 100% 11/13/2019 2:28 PM CDT Inhaled Oxygen Concentration - - Weight 78 kg (172 lb) 11/13/2019 2:28 PM CDT Height 174 cm (5' 8.5) 11/13/2019 2:28 PM CDT Body Mass Index 25.77 11/13/2019 2:28 PM CDT Body Mass Index Percentile 86.07 % 11/13/2019 2:28 PM CD T Growth Chart: [facility] (Girls, 2-20 Years) documented in this encounter Patient Instructions Patient InstructionsWiPatricia Meneses MD - 11/13/2019 2:20 PM CDT I do not see any pilonidal cyst nor abscess. Skin looks irritated in gluteal crease. Soak in tub of warm water daily. Apply HC 2.5 % ointment BID for 5 days. Monitor area for increase redness, swelling, pain or drainage. If occurs to be rechecked. documented in this encounter Progress Notes Patricia Evans MD - 11/13/2019 2:20 PM CDT Subjective Mahi Faye is a 19 year old female who [facility] because of: Buttock pain HPI Concerns: Buttocks pain x 5 days She said it hurt a little for last few days but much worse since yesterday. Hurts to move, sit down,sleep. Was up a lot last night due to pain. Hurts to pass BM but not around rectum itself. Denies constipation. Had fever last week and ended up having Covid testing done- negative. Says she feels fine now. Eating ok. Lives in [facility]. Rides bike some but no recent increase. No injury. See Dr. Fritz's note earlier for more details. She mostly wanted her to come in to be sure no pilonidal cyst. Review of Systems Constitutional, eye, ENT, skin, respiratory, cardiac, and GI are normal except as otherwise noted. Problem List Patient Active Problem List Diagnosis Date Noted ??? Mild anemia 09/28/2018 Priority: Medium ??? [...] daily levonorgestrel-ethinyl estradiol ([place]) 0.15-0.03 MG per tablet, [...] needed this visit by Provider Objective BP 138/78 (BP Location: Right arm, Patient Position: Chair, Cuff Size: Adult Regular) Pulse 99 Temp 98.2 ??F (36.8 ??C) (Oral) Resp 18 Ht 5' 8.5 (1.74 m) Wt 172 lb (78 kg) LMP 10/23/2019 SpO2 100% BMI 25.77 kg/m?? 94 %ile based on [facility] (Girls, 2-20 Years) [id number] data based on Weight recorded on 11/13/2019. Blood pressure reading is in the Stage 1 hypertension range (BP >= 130/80) based on the 2017 AAP Clinical Practice Guideline. Physical Exam GENERAL: Active, alert, in no acute distress. LUNGS: Clear. No rales, rhonchi, wheezing or retractions HEART: Regular rhythm. Normal S1/S2. No murmurs. ABDOMEN: Soft, non-tender, not distended, no masses or hepatosplenomegaly. Bowel sounds normal. ANORECTAL: no fissures At top portion of gluteal fold, she has some mild erythema that is narrow along center fold about 3 cm. Complains tender to touch. No underlying swelling, no sinus tracts, no drainage. This area is well above anus and denies pain in rectal area but no digital exam done. Walking as if bottom is hurting but able to sit in chair, easily get up onto table, lay down on table and get back up without obvious discomfort. Diagnostics: None Assessment & Plan 1. Skin irritation/ Pain in buttock- more upper gluteal fold. 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 This looks more some superficial irritation than anything else. Do not see any underlying pilonidal cyst, no sinu tract, no abscess. Pain seems to be more on skin layer rather than deeper. - hydrocortisone 2.5 % ointment; Apply to affected area bid for 5 days Dispense: 30 g; Refill: 1 Soak in tub of warm water daily. Apply HC 2.5 % ointment BID for 5 days. Monitor area for increase redness, swelling, pain or drainage. If occurs to be rechecked. Form written up for [facility] and discussed with staff after exam. Follow Up Return in about 4 months (around 2020) for Check up/ Well visit. If not improving or if worsening Patricia Corrales MD documented in this encounter Plan of Treatment Not on filedocumented as of this encounter Visit Diagnoses Diagnosis Skin irritation - Primary Unspecified disorder of skin and subcuta neous tissue Pain in buttock Mylagia and myositis, unspecified Development delay Unspecified delay in development documented in this encounter Additional Health Concerns Assessment Noted Time PHQ-9 Depression Total Score: 7 11/13/2019 11:26 AM CD T documented as of this encounter Care Teams Vp Global Relationship Specialty Start Date End Date Queta Fritz MD PCP - General Pediatrics 12/19/15 05/27/20 [address] [place] [id number] Queta Fritz MD Assigned PCP 03/04/14 04/12/21 [address] [place] [address] documented as of this encounter
--- OUTSIDE RECORDS SUMMARY | 2022-04-23 23:44 | XMS_ITS | Encounter Summary ---
:2000 Author Organization [facility] Address [address] [place] [address] Care Team Providers Name Role Phone Queta Fritz MD Primary Care Provider [phone] Queta Fritz MD Unavailable [phone] Encounter Details Date Type Department Care Team Description 03/30/2019 Orders Only [facility] Betito Mccloud Weight l oss (Primary [facility] Tati Gaxiola GENERAL SUPERVISOR Dx) [facility] [address] [place] [address] [facility] [place], [place] [address] Bldg, 3rd Flr [address] [place], [place] [phone] (Wo rk) [id number] [phone] Social History Tobacco Use Types Packs/Day Years [...] do you attend mosque or Never 2018 scientologist services? 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 Specimen Anatomical Collection Method Collection Time Receive d Time (Source) Location / / Volume Laterality Blood specimen 04/26/2019 4:33 PM 019 4:34 (specimen) CDT PM CDT Betito Mccloud APRN GENERAL SUPERVISOR LAB - BLOOD ORDERABLE S Performing Organization Address City/[facility]/ZIP Code Phon e Number [facility] [address] [place] [address] Ferritin (04/26/2019 4:33 PM CDT) athologist Signature Ferritin 27 12 - 150 04/27/2019 [facility] ng/mL 2:[address] [facility] Specimen Anatomical Collection Method Collection Time Receive d Time (Source) Location / / Volume Laterality Blood specimen 04/26/2019 4:33 PM 019 4:34 (specimen) CDT PM CDT Betito Mccloud APRN GENERAL SUPERVISOR LAB - BLOOD ORDERABLE S Performing Organization Address City/[facility]/ZIP Code Phon e Number [facility] [address] [place] [address] (ABNORMAL) Iron and iron binding capacity (04/26/2019 4:33 PM CDT) [facility] gist Method Time Signature Iron 78 35 - 180 04/27/2019 [place] ug/dL 2:07 PM CDT [facility] Iron Binding 525 (H) 240 - 430 04/27/2019 [place] Cap ug/dL 2:10 PM CDT [facility] Iron Saturation 15 15 - 46 % 04/27/2019 [place] Index 2:10 PM CDT [facility] Specimen Anatomical Collection Method Collection Time Receive d Time (Source) Location / / Volume Laterality Blood specimen 04/26/2019 4:33 PM 019 4:34 (specimen) CDT PM CDT Betito Mccloud APRN GENERAL SUPERVISOR LAB - BLOOD ORDERABLE S Performing Organization Address City/State/ZIP Code Phon e Number [facility] [address] [address] [phone] [facility] [address] [place], [place] [address] [facility] [address] [address], U [phone] CRP inflammation (04/26/2019 4:33 PM CDT) Analysis Performed At Patho logist Time Signature CRP Inflammation 7.1 0.0 - 8.0 04/27/2019 [facility] F mg/L 2:11 PM CDT [facility] Specimen Anatomical Collection Method Collection Time Receive d Time (Source) Location / / Volume Laterality Blood specimen 04/26/2019 4:33 PM 019 4:34 (specimen) CDT PM CDT Betito Mccloud APRN, CNP LAB - BLOOD ORDERABLE S Performing Organization Address City/State/ZIP Code Phon e Number [facility] [address] [place] [address] [facility] (ABNORMAL) Erythrocyte sedimentation rate auto (04/26/2019 4:33 PM CDT) P athologist Signature Sed Rate 26 (H) 0 - 20 mm/h 04/26/2019 [place] 5:02 PM CDT [facility] Specimen Anatomical Collection Method Collection Time Receive d Time (Source) Location / / Volume Laterality Blood specimen 04/26/2019 4:33 PM 019 4:34 (specimen) CDT PM CDT Betito Mccloud APRN GENERAL SUPERVISOR LAB - BLOOD ORDERABLE S Performing Organization Address City/State/ZIP Code Phon e Number [facility] [address] [place], [place] [address] [address] (ABNORMAL) CBC with platelets differential (04/26/2019 4:33 PM CDT) Patholo gist Method Time Signature WBC 6.3 4.0 - 04/26/2019 [facility] 11.0 4:57 PM CDT [facility] 10e9/L [place] RBC Count 3.99 3.7 - 5.3 04/26/2019 [facility] 10e12/L 4:57 PM CDT [facility] [place] Hemoglobin 10.4 (L) 11.7 - 04/26/2019 [facility] 15.7 g/dL 4:57 PM CDT [facility] [place] Hematocrit 32.8 (L) 35.0 - 04/26/2019 [facility] 47.0 % 4:57 PM CDT [facility] [place] MCV 82 77 - 100 04/26/2019 [facility] fl 4:57 PM CDT [facility] [place] MCH 26.1 (L) 26.5 - 04/26/2019 [facility] 33.0 pg 4:57 PM CDT [facility] [place] MCHC 31.7 31.5 - 04/26/2019 [facility] 36.5 g/dL 4:57 PM CDT [facility] [place] RDW 13.4 10.0 - 04/26/2019 [facility] 15.0 % 4:57 PM CDT [facility] [place] Platelet Count 357 150 - 450 04/26/2019 [facility] 10e9/L 4:57 PM CDT [facility] [place] Diff Method Automated 04/26/2019 [facility] Method 6:03 PM CDT [facility] [place] % Neutrophils 42.3 % 04/26/2019 [facility] 6:03 PM CDT [facility] [place] % Lymphocytes 51.1 % 04/26/2019 [facility] 6:03 PM CDT [facility] [place] % Monocytes 5.5 % 04/26/2019 [facility] 6:03 PM CDT [facility] [place] % Eosinophils 0.8 % 04/26/2019 [facility] 6:03 PM CDT [facility] [place] % Basophils 0.3 % 04/26/2019 [facility] 6:03 PM CDT [facility] [place] Absolute 2.7 1.3 - 7.0 04/26/2019 [facility] Neutrophil 10e9/L 6:03 PM CDT [facility] [place] Absolute 3.2 1.0 - 5.8 04/26/2019 [facility] Lymphocytes 10e9/L 6:03 PM CDT [facility] [place] Absolute 0.4 0.0 - 1.3 04/26/2019 [facility] Monocytes 10e9/L 6:03 PM CDT [facility] [place] Absolute 0.1 0.0 - 0.7 04/26/2019 [place] Eosinophils 10e9/L 6:03 PM CDT [facility] Absolute 0.0 0.0 - 0.2 04/26/2019 [place] Basophils 10e9/L 6:03 PM CDT [facility] Specimen Anatomical Collection Method Collection Time Receive d Time (Source) Location / / Volume Laterality Blood specimen 04/26/2019 4:33 PM 019 4:34 (specimen) CDT PM CDT Betito Mccloud APRN GENERAL SUPERVISOR LAB - BLOOD ORDERABLE S Performing Organization Address City/State/ZIP Code Phon e Number [facility] [address] [place], [place] [address] [address] documented in this encounter Visit Diagnoses Diagnosis Weight loss - Primary Loss of weight documented in this encounter Additional Health Concerns Assessment Noted Time PHQ-9 Depression Total Score: 8 12/16/2018 4:14 PM CDT documented as of this encounter Care Teams Career And Technology Education Teacher Relationship Specialty Start Date End Date Queta Fritz MD PCP - General Pediatrics 12/19/15 05/27/[address] [id number] Queta Fritz MD Assigned PCP 03/04/14 04/12/21 [address] [address] documented as of this encounter
--- OUTSIDE RECORDS SUMMARY | 2022-04-23 23:44 | XMS_ITS | Encounter Summary ---
:2002 Author Organization [facility] Address [address] [place] [address] Care Team Providers Name Role Phone Queta Fritz MD Primary Care Provider [phone] Queta Fritz MD Unavailable [phone] Reason for Visit Reason Onset Date Comments Results 02/27/2019 Encounter Details Date Type Department Care Team Description 02/27/2019 Telephone [facility] Bowen Mccloud, Results [facility] STUMP SHOOTER FACILITIES ASSISTANT [address] [facility] [address] [place] [address] [address], [facility] [address] [phone] Social History Tobacco Use Types Packs/Day Years [...] do you attend yazidism or Never 2018 spiritism services? 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 They can call [phone]. Orders are in. Thanks Betito Telephone Encounter - Radha Dave RN - 02/27/2019 11:04 AM CDT This RN talked with mom (Eleanor), and explained that per Betito Mccloud's note, EGD and Colon biopsieswere normal, and that due to BS being unable to get into T1, that an MRE is being ordered. Mom has not heard from Ivonne at the yet, but will call us back at the end of the week if she still has not heard from Ivonne. Mom expressed interest in having the MRE done at [facility] if possible and willask Ivonne when she calls. documented in this encounter Plan of Treatment Not on filedocumented as of this encounter Visit Diagnoses Not on filedocumented in this encounter Additional Health Concerns Assessment Noted Time PHQ-9 Depression Total Score: 8 12/16/2018 4:14 PM CDT documented as of this encounter Care Teams Yard Crane Operator Relationship Specialty Start Date End Date Queta Fritz MD PCP - General Pediatrics 12/19/15 05/27/20 [address] [place] [address] Queta Fritz MD Assigned PCP 03/04/14 04/12/21 [address] [place] [address] documented as of this encounter
--- OUTSIDE RECORDS SUMMARY | 2022-04-23 23:44 | XMS_ITS | Encounter Summary ---
:2000 Author Organization [facility] Address [address] [place] [address] Care Team Providers Name Role Phone Queta Fritz MD Primary Care Provider [phone] Queta Fritz MD Unavailable [phone] Reason for Visit Auth/Cert Specialty Diagnoses / Procedures Referred By Contact Refer red To Contact Surgery Diagnoses weight loss Rh Periop Services Procedures ESOPHAGOGASTRODUODENOSCOPY (EGD) COLONOSCOPY [address], [place] [address] Phone: Fax: Referral ID Status Reason Start Date Expiration Date Visits Requ ested Visits Authorized [id number] 1 1 Encounter Details Date Type Department Care Team Description 02/10/2019 Surgery [facility] Vikas Martin ESOPHAGOG ASTRODUODENOSCOPY with Vikram PeriOp biopsies Services [address] [facility] [phone] Surgery Details Date/Time Status Location OR Service Patient Case Case Traum a Class Class Type Case? 02/10/19 7:30 Posted [facility] OR OR 10 Gastroenterology Same Day AM Surgery Panel 1 Procedure [facility] Anes Op Region Wound Class Commen ts ESOPHAGOGASTRODUODENOSCOPY with N/A General Mouth II-C lean biopsies Contaminated Panel 2 Procedure [facility] Anes Op Region Wound Class Commen ts COLONOSCOPY with biopsies N/A General Rectum II-Clean C ontaminated Surgeon Surgeon Role Service Panel Vikas Martin MD Primary Gastroenterology 1 Vikas Martin MD Primary Gastroenterology 2 Special Needs Ht 5' 8.7 Wt 166 lb H&PPt lives at [facility] CCR in the [facility] Irma is main care leader Call Irma with ebonyar ge instructions postop [phone] Eleanor will be transporting pt to and [facility]. documented in this encounter Social History Tobacco [...] do you attend jain or Never 2018 protestant services? 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 documented as of this encounter Last Filed Vital Signs Vital Sign Reading Time Taken Comments Blood Pressure 123/78 02/10/2019 6:04 AM CDT Pulse 96 02/10/2019 6:04 AM CDT Temperature 36.5 ??C (97.7 ??F) 02/10/2019 6:04 AM CDT Respiratory Rate 20 02/10/2019 6:04 AM CDT Oxygen Saturation - - Inhaled Oxygen Concentration - - Weight 75.3 kg (166 lb) 02/10/2019 6:04 AM CDT Height 172.7 cm (5' 8) 02/10/2019 6:04 AM CDT Body Mass Index 25.24 02/10/2019 6:04 AM CDT Body Mass Index Percentile 85.47 % 02/10/2019 6:04 AM CD T Growth Chart: [facility] (Girls, 2-20 Years) documented in this encounter Discharge Instructions Discharge Karoline Jacobs RN - 02/10/2019 8:49 AM CDT UPPER ENDOSCOPY AND/OR COLONOSCOPY Discharge Instructions for Beth Morales Activity and Diet ? During your procedure, you were given sedatives/anesthesia that makes you feel tired. Rest the dayof your procedure. ? Resume taking all of your previously prescribed medications, unless advised otherwise. ? Do not drink alcohol for 24 hours. Alcohol potentiates the effects of the sedatives given. The combination of alcohol and sedation has an unpredictable effect on your body that is potentially dangerous to your health. ? Do not drive or operate heavy machinery for 24 hours. Driving or operating machinery takes concentration and the ability to respond rapidly; the sedative adversely affects both. State law prohibits driving under the influence of drugs. If you have an engagement that cannot be cancelled, we advise that you have someone drive you. ? Do not go swimming or bicycling or participate in other activities that require balance or focus for 24 hours. ? Do not sign contracts or legal documents for 24 hours. The sedatives slow down your body and your mind. Your ability to objectively evaluate may be impaired. ? You may return to a regular diet if you have not had esophageal banding. If you had esophageal banding, you should drink clear liquids for 24 hours, eat a soft diet for another 48 hours and then resume your previous diet. Discomfort ? If you had a colonoscopy: ? You may feel bloated after the procedure because of the air that was introduced during the examination. Walking around, turning [id number] and laying flat on your abdomen may help move the air out. ? Consider using a warm pad, hot water bottle, or a bath to help discomfort resolve. ? If you had an upper endoscopy: ? Your throat may be a little sore for up to 24-48 hours. ? You may feel bloated for a few hours after the procedure because of the air that was introduced toexamine the stomach. ? Throat lozenges, gargling with warm salt water, or eating ice cream or popsicles may be helpful. ? Do not take aspirin or ibuprofen (Advil, Motrin, or other anti-inflammatory drugs) for 24 hours. If you have abnormal coagulant (INR, PTT) or platelet levels, this may be longer. When to call your doctor ? If you have a fever or chills. ? Unusual abdominal pain or chest pain not relieved with passing air. ? Nausea or vomiting ? Bleeding or black stools ? Pain or redness at the site where the intravenous needle was placed If you have severe pain, bleeding, or shortness of breath go to an emergency room. Follow up The procedure was performed by Dr. Vikas Martin. Please make an appointment to be seen 2-3 weeks by your primary pediatric senior c software developer from the date of your procedure to discuss the results in person and make decisions on the future management. For urgent questions please call: [phone] for hospital page heddle machine operator and ask to speak with the Pediatric Gastroenterology provider patient consumer marketer Otherwise, please call our office at [phone] and your call will be returned within 1-2 businessdays. GENERAL ANESTHESIA OR SEDATION CHILD DISCHARGE INSTRUCTIONS YOUR CHILD SHOULD REST AND AVOID STRENUOUS PLAY FOR THE NEXT 24 HOURS. MAKE ARRANGEMENTS TO HAVE AN ADULT STAY WITH HIM/HER FOR 24 HOURS AFTER DISCHARGE. YOUR CHILD MAY FEEL DIZZY OR SLEEPY. HE OR SHE SHOULD AVOID ACTIVITIES THAT REQUIRE BALANCE (RIDING A BIKE, CLIMBING STAIRS, SKATING) FOR THE NEXT 24 HOURS. YOU MAY OFFER YOUR CHILD CLEAR LIQUIDS (APPLE JUICE, TAMAR AJ, 7-UP, GATORADE, BROTH, ETC.) AND PROGRESS TO A REGULAR DIET IF NO NAUSEA (FEELS SICK TO THE STOMACH) OR VOMITING (THROWS UP) EXISTS. YOUR CHILD MAY HAVE A DRY MOUTH, SORE THROAT, MUSCLE ACHES OR NIGHTMARES. THESE SHOULD GO AWAY WITHIN 24 HOURS. CALL YOUR DOCTOR FOR ANY OF THE FOLLOWING: SIGNS OF INFECTION (FEVER, GROWING TENDERNESS AT THE SURGERY SITE, A LARGE AMOUNT OF DRAINAGE OR BLEEDING, SEVERE PAIN, FOUL-SMELLING DRAINAGE, REDNESS, SWELLING). IT HAS BEEN OVER 8 TO 10 HOURS SINCE SURGERY AND YOUR CHILD IS STILL NOT ABLE TO URINATE (PASS WATER) OR IS COMPLAINING ABOUT NOT BEING ABLE TO URINATE. documented in this encounter Medications at Time [...] units CAPS documented as of this encounter Procedure Notes Vikas Martin MD - 02/10/2019 5:55 AM CDTAssociated Order(s): COLONOSCOPY Images from the original note were not included. Procedure: Colonoscopy with biopsies Date of Procedure: February 10, 2019 Beth Morales Date of : 2000 ? Providers: ?Vikas Martin MD (Doctor) ? Sedation: ? Provided by Anesthesia Team Indication: Abdominal pain and anemia, weight loss The risks and benefits of the procedure were discussed with the patient and/or parent(s). All questions were answered and informed consent was obtained. Patient was brought to the operating/procedure room, and underwent induction of anesthesia per Anesthesia Service. Patient identification and proposed procedure were verified by the physician, the nurse and the sourcing specialist in the procedure room. Procedure: A colonoscope was then inserted into the rectum and advanced under direct visualization to the level of the ascending colon. The scope was then slowly withdrawn while examining the color, texture, anatomy and integrity of the mucosa from the Terminal ileum/cecum to the anal canal. The colonoscopy was accomplished without difficulty. The patient tolerated the procedure well. ? Findings: Colon: No gross lesions were noted in the entire examined colon. Unable to reach cecum in part due to incomplete prep and in part due to dolychocolon. Biopsies were taken with a cold forceps for histology. Complications: None ? Recommendation: ? - Await pathology results. - Consider MRE to evaluate TI and the rest of the SB. For images and other details, see report in Provation. Vikas Martin M.D. Director, [facility] Nitric Acid Concentrator Operator, Pediatric Gastroenterology [facility] Delivery Code #8952C [address] [place] [address] Vikas Martin MD - 02/10/2019 5:55 AM CDTAssociated Order(s): UPPER GI ENDOSCOPY Images from the original note were not included. Procedure: Upper Endoscopy (EGD) with biopsies Date of Procedure: February 10, 2019 Beth Morales Date of : 2000 ? Providers: ?Vikas Martin MD (Doctor) ? Sedation: ? Provided by Anesthesia Team Indication: Abdominal pain and anemia, weight loss The risks and benefits of the procedure were discussed with the patient and/or parent(s). All questions were answered and informed consent was obtained. Patient was brought to the operating/procedure room, and underwent induction of anesthesia per Anesthesia Service. Patient identification and proposed procedure were verified by the physician, the nurse and the sourcing specialist in the procedure room. Procedure: the endoscope was advanced under direct visualization over the tongue, into the esophagus, stomach and duodenum. It was retroflexed to evaluate gastric fundus. It was slowly withdrawn and the mucosa was carefully evaluated. The upper GI endoscopy was accomplished without difficulty. The patient tolerated the procedure well. ? Findings: ?? Esophagus: No gross lesions were noted in the entire examined esophagus. Biopsies were taken with a cold forceps for histology. Stomach:No gross lesions were noted in the entire examined stomach. Biopsies were taken with a cold forceps for histology. Duodenum: No gross lesions were noted in the entire examined duodenum. Biopsies were taken with a cold forceps for histology. Complications: None ? Recommendation: ? - d/c patient once awake and alert, and OK with anesthesia - Await pathology results. For images and other details, see report in Provation. Vikas Martin M.D. Nitric Acid Concentrator Operator, Pediatric Gastroenterology [facility] documented in this encounter Nursing Notes Eleanor Weber RN - 02/10/2019 7:[address] Martin notified that Hcg not performed and gave approval for surgery to progress. Kandi Barragan RN - 02/10/2019 6:46 AM CDT Patient's mom is refusing HCG urine sample in pre-op. Mom states that the patient is not sexually active and is on control. Dr. Augustin notified and orders received to discontinue orders for HCG testing. documented in this encounter Miscellaneous Notes Plan of Care - Edyta Johnson RN - 02/08/2019 11:50 AM CDT Discussed pre-op instructions with Irma at the [facility]. Verbalizes understanding of them. Questions answered. documented in this encounter Plan of Treatment Not on filedocumented as of this encounter Procedures Procedure Name Priority Date/Time Associated Comments Diagnosis SURGICAL PATHOLOGY Routine 02/10/2019 8:06 AM Res ults for this EXAM CDT procedure are i n the results section. COLONOSCOPY 02/10/2019 7:36 AM weight loss CDT Special Needs Ht 5' 8.7 Wt 166 lb H&PPt l john at senior living CCR in the [facility] Irma is main care leader Call Maryann an with discharge instructions postop [phone] Eleanor juan carlos l [facility]. ESOPHAGOGASTRODUODENOSCOPY (EGD) 02/10/2019 7:36 AM CD T weight loss Special Needs Ht 5' 8.7 Wt 166 lb H&PPt l john at senior living CCR in the [facility] Irma is main care leader Call Maryann an with discharge instructions postop [phone] Eleanor juan carlos l [facility]. COLONOSCOPY Routine 02/10/2019 6:59 AM CDT Resul ts for this procedure are in the results sec tion. UPPER GI ENDOSCOPY Routine 02/10/2019 6:58 AM CDT Results for this procedure are in the results sec tion. documented in this encounter Results Surgical pathology exam (02/10/2019 8:06 AM CDT) Component Value Ref Test Analysis Performed At [facility] Range Method Time Signature Copath Report Patient Name: BETH MORALES MR#: [id number] Specimen #: [id number] Collected: 02/10/2019 Received: 02/10/2019 Reported: 02/13/2019 10:42 Ordering Phy(s): VIKAS MARTIN For improved result formatting, select 'View Enhanced Report Format' under Linked Documents section. SPECIMEN(S): A: Colon biopsy, ascending B: Colon biopsy, transverse C: Colon biopsy, descending D: Rectal sigmoid colon biopsy E: Duodenal biopsy F: Antral biopsy G: Esophageal biopsy, distal H: Esophageal biopsy, mid FINAL DIAGNOSIS: A, B, C, D: Ascending colon, transverse colon, descending co harry, and rectosigmoid biopsies. - Colonic mucosa without significant inflammation or specifi c findings. ?? Negative for lymphocytic/collagenous (microscopic) colitis, chronic active inflammatory bowel dis ease, dysplasia, and malignancy. E: Duodenum, biopsies. - Normal villus architecture. ??No histologic evidence of sp rue. ??No significant inflammation or specific findings identified. F: Stomach, biopsies. - Gastric antral and antral-body transition zone type mucosa without significant inflammation or specific findings. ??Helicobacter not identified. ??Negative for dysp lasia and malignancy. G and H: Esophagus, distal and mid, biopsies. - Esophageal squamous mucosa without significant inflammatio n or specific findings. ??Negative for eosinophilic esophagitis, Rodriguez's esophagus, dysplasia, and malignancy. Electronically signed out by: Heladio Valdes M.D. CLINICAL HISTORY: Weight loss. ??No gross lesions seen in esophagus, stomach, duodenum, and colon at colonoscopy. GROSS: A: The specimen is received in formalin labeled with the pat ient's name, identifying information and designated ascending colon biopsy. ??It consists of three jaramillo friable tissue fragments, ranging from 0.1-0.2 cm. ??Submitted entirely in one block. B: The specimen is received in formalin labeled with the pat ient's name, identifying information and designated transverse colon biopsy. ??It consists of two t an tissue fragments, each up to 0.2 cm. ??Submitted entirely in one block. C: The specimen is received in formalin labeled with the pat ient's name, identifying information and designated descending colon biopsy. ??It consists of two t an tissue fragments, each up to 0.2 cm. ??Submitted entirely in one block. D: The specimen is received in formalin labeled with the pat ient's name, identifying information and designated rectosigmoid colon biopsy. ??It consists of a 0 .2 cm jaramillo tissue fragment. ??Submitted entirely in one block. E: The specimen is received in formalin labeled with the pat ient's name, identifying information and designated duodenal biopsy. ??It consists of two pink fria ble tissue fragments, each up to 0.3 cm. ??Submitted entirely in one block. F: The specimen is received in formalin labeled with the pat ient's name, identifying information and designated antrum biopsy. ??It consists of two jaramillo friable tissue fragments, 0.2 cm and 0.3 cm. ??Submitted entirely in one block. G: The specimen is received in formalin labeled with the pat ient's name, identifying information and designated distal esophagus biopsy. ??It consists of two w david wispy tissue fragments, 0.1 cm and 0.4 cm. Submitted entirely in one block. H: The specimen is received in formalin labeled with the pat ient's name, identifying information and designated mid esophagus biopsy. ??It consists of three wh ite wispy tissue fragments, ranging from 0.1 to 0.4 cm. ??Submitted entirely in one block. (Dictated by: CAESAR Bryant 02/10/2019 10:05 AM) MICROSCOPIC: A, B, C, D: There is no significant inflammation or specific findings. E: Villous architecture appears normal. ??There is no signif icant inflammation in the villous tips or epithelium. ??Histologic features of untreated sprue are n ot identified. ?? No significant inflammation or specific findings are identified. F: There is no significant inflammation or specific findings . Helicobacter is not identified on H and E stained sections. ??Features of reactive gastropathy are not identified. G and H: There is no significant inflammation or specific fi ndings. The technical component of this testing was completed at the [facility], with the professional compo nent performed at the [facility], [address] [place] [address] [phone] ([phone]) CPT Codes: A: 82723-RL8 B: 78842-BR7 C: 70575-PQ6 D: 67787-KR3 E: 92386-CS6 F: 32421-QA9 78080-OK1 H: 05266-WF2 COLLECTION SITE: Client: [facility] Location: [facility]OR (R) Specimen (Source) Anatomical Collection Method Collection Time Re ceived Time Location / / Volume Laterality Tissue specimen DUODENAL STRUCTURE 02/10/2019 8:16 AM (specimen) / Unknown CDT Tissue specimen PYLORIC ANTRUM 02/10/2019 8:16 AM (specimen) STRUCTURE / CDT Unknown Tissue specimen STRUCTURE OF LOWER 02/10/2019 8:18 AM (specimen) THIRD OF ESOPHAGUS CDT / Unknown Tissue specimen STRUCTURE OF 02/10/2019 8:18 AM (specimen) MIDDLE THIRD OF CDT ESOPHAGUS / Unknown Tissue specimen LARGE INTESTINE 02/10/2019 8:06 AM (specimen) PART / Unknown CDT Tissue specimen LARGE INTESTINE 02/10/2019 8:07 AM (specimen) PART / Unknown CDT Tissue specimen LARGE INTESTINE 02/10/2019 8:08 AM (specimen) PART / Unknown CDT Tissue specimen SIGMOID COLON PART 02/10/2019 8:09 AM (specimen) / Unknown CDT Vikas MCNULTY CORTNEY Performing Organization Address City/State/ZIP Code Phon e Number COPATH COLONOSCOPY (02/10/2019 6:59 AM CDT) [facility] Method Time Signature COLONOSCOPY [facility] RAD IOLOGY RESULTS Patient Name: Beth Morales ? Procedure Date: 02/10 6:59 AM ? Accou nt Number: [id number] Date of : 2000 ? Admit Type: Out patient Age: 18 ? Gender: Female Attending MD: Vikas Martin MD ?Total Sedation Marin e: Instrument Name: 219 - Pediatric Colonoscope Procedure: ?Colonoscopy Providers: ?Vikas Martin MD (Doctor) Referring MD: ? Procedure: ?Pre-Anesthesia Assessment: ?- ASA Grade Assessment: I - A normal, healthy ?patient. ?After obtaining informed consent, the colonoscope ?was passed under direct vision. Throughout the ?procedure, the patient's blood pressure, pulse, and ?oxygen saturations were monitored continuously. The ?Olympus, Pediatric Colonoscope, Model # PCF-H190DL, ?Endora # 219, SN # [id number] was introduced through ?the anus and advanced to the ascending colon. ? Findings: ? Procedure Code(s): ? --- Professional --- ? 27315, 53, Colonoscopy, flexible; diagnostic, i ncluding collection of ? specimen(s) by brushing or washin g, when performed (separate procedure) CPT copyright 2017 [employer]. All rights reserved. The codes documented in this report are prelimin aaliyah and upon breaster review may be revised to meet current compliance requirements. Signed electronically by Dr Martin Vikas Martin MD 02/10/2019 8:11:59 AM I was physically present for the entire viewing portion of t he exam. Vikas Martin MD Number of Addenda: 0 Note Initiated On: 02/10/2019 6:59 AM MRN: ?[id number] Procedure Date: ? 02/10/2019 6:59:03 AM Total Procedure Duration: 0 hours 27 minutes 38 seconds Estimated Blood Loss: ? Scope In: 7:42:13 AM Scope Out: 8:09:51 AM Specimen (Source) Anatomical Collection Method Collection Time Re ceived Time Location / / Volume Laterality 02/10/2019 6:59 AM CDT Narrative RADIOLOGY RESULTS - 02/10/2019 5:55 AM Vikas Zelaya MD ? 02/10/2019 ??8:14 AM Procedure: Colonoscopy with biopsies Date of Procedure: ?? February 10, 2019 Beth Morales Date of : 2000 ? Providers: ?Vikas Martin MD (Doctor) ? Sedation: ? Provid ed by Anesthesia Team Indication: Abdominal pain and anemia, w eight loss The risks and benefits of the procedure were discussed with the patient and/or parent(s). All questions were answered and informed consent was obtained. Patient w as brought to the operating/procedure room, and underwent induction of anesthesia per Anesthesia Service. Patient identifi cation and proposed procedure were verified by the physician , the nurse and the sourcing specialist in the procedure room. Procedure: ??A colonoscope was then inse rted into the rectum and advanced under direct visualization to t he level of the ascending colon. The scope was then slowly withdra wn while examining the color, texture, anatomy and integrity of the mucosa from the Terminal ileum/cecum to the anal canal. The colonoscopy was accomplished without difficulty. The pat ient tolerated the procedure well. ? Findings: Colon: No gross lesions were noted in th e entire examined colon. Unable to reach cecum in part due to inc omplete prep and in part due to dolychocolon. Biopsies were taken with a cold forceps for histology. Complications: None ? Recommendation: ? - Await pathology results. - Consider MRE to evaluate TI and the re st of the SB. For images and other details, see report in Provation. Vikas Martin M.D. Director, [facility] Nitric Acid Concentrator Operator, Pediatric Gastroent erology [facility] Delivery Code #8952C [address] [facility] [address] Vikas Martin MD PROCEDURES Performing Organization Address City/State/ZIP Code Phon e Number RADIOLOGY RESULTS UPPER GI ENDOSCOPY (02/10/2019 6:58 AM CDT) Component Value Ref Test Analysis Performed At [facility] Range Method Time Signature Upper GI [facility] RADIO LOGY Endoscopy RESULTS Patient Name: Beth Morales ? Procedure Date: 02/10 6:58 AM ? Accou nt Number: [id number] Date of : 2000 ? Admit Type: Out patient Age: 18 ? Gender: Female Attending MD: Vikas Martin MD ?Total Sedation Marin e: Instrument Name: 210 - Gastroscope ? Procedure: ?Upper GI endoscopy Providers: ?Vikas Martin MD (Doctor) Referring MD: ? Procedure: ?Pre-Anesthesia Assessment: ?- ASA Grade Assessment: I - A normal, healthy ?patient. ?After obtaining informed consent, the endoscope was ?passed under direct vision. Throughout the ?procedure, the patient's blood pressure, pulse, and ?oxygen saturations were monitored continuously. The ?Olympus Gastroscope, Model # GIF-H190, Endora # ?210, SN # [id number] was introduced through the mouth, ?and advanced to the third part of duodenum. ? Findings: ? Procedure Code(s): ? --- Professional --- ? 98284, Esophagogastroduodenoscopy, flexible, transora l; diagnostic, ? including collection of specimen(s) by brushing or wa shing, when ? performed (separate procedure) CPT copyright 2017 [employer]. All rights reserved. The codes documented in this report are prelimin aaliyah and upon breaster review may be revised to meet current compliance requirements. Signed electronically by Dr Martin Vikas Martin MD 02/10/2019 8:19:19 AM I was physically present for the entire viewing portion of t he exam. Vikas Martin MD Number of Addenda: 0 Note Initiated On: 02/10/2019 6:58 AM MRN: ?[id number] Procedure Date: ? 02/10/2019 6:58:43 AM Total Procedure Duration: 0 hours 3 minutes 13 seconds Estimated Blood Loss: ? Scope In: 8:15:05 AM Scope Out: 8:18:18 AM Specimen (Source) Anatomical Collection Method Collection Time Re ceived Time Location / / Volume Laterality 02/10/2019 6:58 AM CDT Narrative RADIOLOGY RESULTS - 02/10/2019 5:55 AM Vikas Zelaya MD ? 02/10/2019 ??8:45 AM Procedure: Upper Endoscopy (EGD) with bi opsies Date of Procedure: ?? February 10, 2019 Beth Morales Date of : 2000 ? Providers: ?Vikas Martin MD (Doctor) ? Sedation: ? Provid ed by Anesthesia Team Indication: Abdominal pain and anemia, w eight loss The risks and benefits of the procedure were discussed with the patient and/or parent(s). All questions were answered and informed consent was obtained. Patient w as brought to the operating/procedure room, and underwent induction of anesthesia per Anesthesia Service. Patient identifi cation and proposed procedure were verified by the physician , the nurse and the sourcing specialist in the procedure room. Procedure: the endoscope was advanced un shanna direct visualization over the tongue, into the esophagus, sto mach and duodenum. It was retroflexed to evaluate gastric fundus. It was slowly withdrawn and the mucosa was carefully evaluated. The upper GI endoscopy was accomplished without difficulty. The patient tolerated the procedure well. ? Findings: ?? Esophagus: No gross lesions were noted i n the entire examined esophagus. Biopsies were taken with a cold forceps for histology. Stomach:No gross lesions were noted in t he entire examined stomach. Biopsies were taken with a cold forceps for histology. Duodenum: No gross lesions were noted in the entire examined duodenum. ? Biopsies were taken with a cold forceps for histology. Complications: None ? Recommendation: ? - d/c patient once awake and alert, and OK with anesthesia - Await pathology results. For images and other details, see report in Provation. Vikas Martin M.D. Nitric Acid Concentrator Operator, Pediatric Gastroent erology [facility] Vikas Martin MD PROCEDURES Performing Organization Address City/State/ZIP Code Phon e Number RADIOLOGY RESULTS documented in this encounter Visit Diagnoses Not on filedocumented in this encounter Administered Medications Inactive Administered Medications - up to 3 most recent administrations Medication Order MAR Action Action Date Dose Rate Site fentaNYL (PF) (SUBLIMAZE) injection 25-5 0 mcg 25-50 mcg, Intravenous, EVERY 2 MIN PRN, other, acute pain while in PACU., Starting on Wed02/10/19 at 0825, MAX cumulative dose = 250 mcg. Use fentaNYL (SUBLIMAZE) initially, as a short acting agent for a cute pain control. If insufficient, or a longer acting agent is needed, begin morphine or HYDRO morphone (DILAUDID) if ordered. For ordered IV doses 1-100 mcg give IV Push undiluted over a minimum of 3-5 minutes., PACU fentaNYL (PF) (SUBLIMAZE) injection 25-5 0 mcg 25-50 mcg, Intravenous, EVERY 15 MIN PRN, other, acute pain while in Phase II, Starting on Wed02/10/19 at 0826, Indicat ions: Sedated State, MAX cumulative dose = 250 mcg. Use fentaNYL (SUBLIMAZE) initia lly, as a short acting agent for acute pain control. If insufficient, or a longer acting agent is needed, begin morphine or HYDROmorphone (DILAUDID) if ordered. For ordered IV doses 1-100 mcg give IV Push undiluted over a minimum of 3-5 minutes., Phase ll HYDROmorphone (PF) (DILAUDID) injection 0.3-0.5 mg 0.3-0.5 mg, Intravenous, EVERY 10 MIN PRN, other, acut e pain. May administer if Respiratory Rate is greater than 10, Starting on Wed at 0825, Max cumulative dose = 2 mg If fentaNYL (SUBL IMAZE) is also ordered, use HYDROmorphone (DILAUDID) if pain control insufficient with fentaNYL (SUMBLIMAZE) or a longer acting agent is needed. For ordered IV doses 0.1-4 mg give IV Push undiluted. Administer each 2mg over 2-5 minutes., PACU/Phase II lactated ringers infusion at 100 mL/hr, Intravenous, CONTINUOUS, Continue until IV catheter is weaned, PACU/Phase II, Starting on Wed02/10/19 at 0830, Until Wed02/10/19 at 1128 meperidine (DEMEROL) injection 12.5 mg 12.5 mg, Intravenous, EVERY 15 MIN PRN, post anesthesia shivering, Starting on Wed02/10/19 at 0825, For 2 doses, If ordered intravenously . Give IV Push undiluted. 10-40 mg over 2-3 minutes, up to 125 mg over 3-15 miguelangel alexia, PACU/Phase II naloxone (NARCAN) injection 0.1-0.4 mg 0.1-0.4 mg, Intravenous, EVERY 2 MIN PRN , opioid reversal, Starting on Wed02/10/19 at 0825, For 24 hours, For apnea or imminent respirato ry arrest: give 0.4 mg IV undiluted Q 2 minutes PRN until desired degree of reversal is obtained, stop opioid and notify provider. Continue monitoring until dischar ge are criteria met for a minimum of 2 hours. For severe sedation, decrease in respiratory depth, quality or Respiratory Rate greater than 8: give 0. 1 mg IV Q 2 minutes x 3 doses, stop opioid and notify provider. Try to minimize reversal of analg esia especially in end-of-life patients. Continue monitorin g until discharge criteria are met for a minimum of 2 hours. For ordered IV doses 0.1-2mg give IVP. Give each 0.4mg over 15 seconds in emergency situations. For non -emergent situations further dilute in 9mL of NS to facilitate titration of response., PACU/Phase II ondansetron (ZOFRAN) injection 4 mg 4 mg, Intravenous, EVERY 30 MIN PRN, mara sea, vomiting, Administer over 2-5 Minutes, Starting on Wed02/10/19 at 0825, For 2 d oses, MAX total dose = 8 mg, including OR dosing. This is step 1 of nausea and vomiting manageme nt. If not resolved in 15 minutes, then go to step 2 [prochlorpera zine (COMPAZINE) if ordered]. Irritant. For ordered IV doses 0.1-4 mg, give IV Push undiluted over 2-5 minutes., PACU/Phase II ondansetron (ZOFRAN-ODT) ODT tab 4 mg 4 mg, Oral, EVERY 30 MIN PRN, nausea, vo miting, Starting on Wed02/10/19 at 0825, For 2 doses, MAX total dose = 8 mg, incl uding OR dosing. This is step 1 of nausea and vomiting management. If not resolved in 15 minutes , then go to step 2 [prochlorperazine (COMPAZINE) if ordered ]. With dry hands, peel back foil backing and gently remove tablet. Do not push oral disintegrat ing tablet through foil backing. Administer immediately on tongu e and oral disintegrating tablet dissolves in seconds, then swallow with saliva. Liquid not requi red., PACU/Phase II documented in this encounter Active and Recently Administered Medications Times are shown in CDT. Continuous Medication Order 02/08/2019 02/09/2019 02/10/2019 lactated ringers infusion 0830 ( Canceled Entry - Provider: Orders Generic Provider - Comment: Automatically canceled at discontinue of medication order) at 100 mL/hr, Intravenous, CONTINUOUS, C ontinue until IV catheter is weaned, PACU/Phase II, Starting Wed02/10/19 at 0830, Until Wed02/10/19 at 1128 PRN Medication Order 02/08/2019 02/09/2019 02/10/2019 fentaNYL (PF) (SUBLIMAZE) injection 25-50 mcg 25-50 mcg, Intravenous, EVERY 2 MIN PRN, Starting Wed02/10/19 at 0825, other, acute pain while in PACU., MAX cumulative dose = 250 mcg. Use fentaNYL (SUBLIMAZE) initially, as a short acting agent for ac tlingit & haida pain control. If insufficient, or a longer acting agent is needed, begin morphine or HYDROmorphone (DILAUDID) if ordered. For ordered IV doses 1-100 mcg give IV Push undiluted over a minimum of 3-5 minutes., PACU fentaNYL (PF) (SUBLIMAZE) injection 25-50 mcg 25-50 mcg, Intravenous, EVERY 15 MIN PRN , Starting Wed02/10/19 at 0826, other, acute pain while in Phase II, MAX cumulative dose = 250 mcg. Use fentaNYL (SUBLIMAZE) initially, as a short acting agent fo r acute pain control. If insufficient, o r a longer acting agent is needed, begin morphine or HYDROmorphone (DILAUDID) if ordered. For ordered IV doses 1-100 mcg give IV Push undiluted over a minimum of 3-5 minutes., Phase ll HYDROmorphone (PF) (DILAUDID) injection 0.3-0.5 mg 0.3-0.5 mg, Intravenous, EVERY 10 MIN UT N, Starting Wed02/10/19 at 0825, Until Wed02/10/19 at 1128, other, acute pain. May administer if Respiratory Rate is greater than 10, PACU/Phase II, Max cumulativ e dose = 2 mg If fentaNYL (SUBLIMAZE) is also ordered, use HYDROmorphone (DILAUDID) if pain control insufficient with fentaNYL (SUMBLIMAZE) or a longer acting agent is needed. For ordered IV doses 0.1-4 mg give IV Push undiluted. Administer each 2mg over 2-5 minutes . meperidine (DEMEROL) injection 12.5 mg 12.5 mg, Intravenous, EVERY 15 MIN PRN, 2 doses, Starting Wed02/10/19 at 0825, Until Wed02/10/19 at 1128, post anesthesia shivering, PACU/Phase II, If ordered intravenously. Give IV Push undiluted. 10-4 0 mg over 2-3 minutes, up to 125 mg over 3-15 minutes naloxone (NARCAN) injection 0.1-0.4 mg 0.1-0.4 mg, Intravenous, EVERY 2 MIN PRN , opioid reversal, Starting Wed02/10/19 at 0825, For 24 hours, For apnea or imminent respiratory arrest: give 0.4 mg IV undiluted Q 2 minutes PRN until desired de gree of reversal is obtained, stop opioi d and notify provider. Continue monitoring until discharge are criteria met for a minimum of 2 hours. For severe sedation, decrease in respiratory depth, quality or Respiratory Rate greater than 8: give 0.1 mg IV Q 2 minutes x 3 doses, stop opioid and notify provider. Try to minimize reversal of analgesia especially in end-of-life patients. Continue monitoring u ntil discharge criteria are met for a mi nimum of 2 hours. For ordered IV doses 0.1-2mg give IVP. Give each 0.4mg over 15 seconds in emergency situations. For non-emergent situations further dilute in 9m L of NS to facilitate titration of response., PACU/Phase II ondansetron (ZOFRAN) injection 4 mg(Linked Group 1) 4 mg, Intravenous, EVERY 30 MIN PRN, mara sea, vomiting, Administer over 2-5 Minutes, Starting Wed02/10/19 at 0825, For 2 doses, MAX total dose = 8 mg, including OR dosing. This is step 1 of nausea and vo miting management. If not resolved in 15 minutes, then go to step 2 [prochlorperazine (COMPAZINE) if ordered]. Irritant. For ordered IV doses 0.1-4 mg, give IV Push undiluted over 2-5 minutes., PACU/Phase II ondansetron (ZOFRAN-ODT) ODT tab 4 mg(Linked Group 1) 4 mg, Oral, EVERY 30 MIN PRN, nausea, vo miting, Starting Wed02/10/19 at 0825, For 2 doses, MAX total dose = 8 mg, including OR dosing. This is step 1 of nausea and vomiting management. If not resolved i n 15 minutes, then go to step 2 [prochlo rperazine (COMPAZINE) if ordered]. With dry hands, peel back foil backing and gently remove tablet. Do not push oral disintegrating tablet through foil backing. A dminister immediately on tongue and oral disintegrating tablet dissolves in seconds, then swallow with saliva. Liquid not required., PACU/Phase II Linked Groups Order Group 1: ondansetron (ZOFRAN-ODT) ODT tab 4 mgJump to med 4 mg, Oral, EVERY 30 MIN PRN, nausea, vo miting, Starting Wed02/10/19 at 0825, For 2 doses
MAX total dose = 8 mg, including OR dosing. This is step 1 of nausea and vomiting management. If not resolved in 15 minutes, the n go to step 2 [prochlorperazine (COMPAZINE) if ordered]. With dry hands, peel back foil backing and gently remove tablet. Do not push oral disintegr ating tablet through foil backing. Admin ister immediately on tongue and oral disintegrating tablet dissolves in seconds, then swallow with saliva. Liquid not required.
PACU/Phase II Or ondansetron (ZOFRAN) injection 4 mgJump to med 4 mg, Intravenous, EVERY 30 MIN PRN, mara sea, vomiting, Administer over 2-5 Minutes, Starting Wed02/10/19 at 0825, For 2 doses
MAX total dose = 8 mg, including OR dosing. This is step 1 of nause a and vomiting management. If not resolved in 15 minutes, then go to step 2 [prochlorperazine (COMPAZINE) if ordered]. Irritant. For ordered IV doses 0.1-4 mg, give IV Push undiluted over 2-5 minutes.
PACU/Phase II documented in this encounter Additional Health Concerns Assessment Noted Time PHQ-9 Depression Total Score: 8 12/16/2018 4:14 PM CDT documented as of this encounter Care Teams Boat Buffer Plastic Relationship Specialty Start Date End Date Queta Fritz MD PCP - General Pediatrics 12/19/15 05/27/20 [address] [place] [id number] Queta Fritz MD Assigned PCP 03/04/14 04/12/21 [address] [place] [id number] documented as of this encounter
--- OUTSIDE RECORDS SUMMARY | 2022-04-23 23:44 | XMS_ITS | Encounter Summary ---
:2000 Author Organization [place] Address [address] [place] [address] Care Team Providers Name Role Phone Queta Fritz MD Primary Care Provider [phone] Queta Fritz MD Unavailable [phone] Reason for Visit Reason Onset Date Comments Symptoms 11/03/2019 Encounter Details Date Type Department Care Team Description 11/03/2019 Telephone [facility] Christopher Fritz, Symptoms Krystle CORLEY [address] [place] [phone] [place] [address] (Wo rk) Social History Tobacco [...] do you attend jew or Never 2018 zoroastrian services? 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 Rachel verbalized understanding. Rachel does not feel that ER is needed because patient is not experiencing any current shortness of breath, but agrees to plan of ER if shortness of breath or chest pain occurs. Rachel questioned if patient could be tested for Covid-19. This clinic is not currently testing. Safety Supervisor spoke with JAZMYNE Dan at [facility] who advised patient should utilize [facility] for the possibility of testing. Called Rachel and advised of Sy's recommendations. Rachel agrees to plan. Rachel will call back with further concerns. Telephone Encounter - Immanuel Hui MD - 11/03/2019 1:46 PM CDT If patient is having chest pain or SOB then should be seen in ED. She should be isolated in quarantine if she has a fever. They should assume she DOES have COVID-19. Unless anyone someone was sick enough to be hospitalized, no one there would have been actually tested despite potentially having COVID. It is not reassuring that they aren't aware of anyone having COVID. They should discuss with their medical data analyst how to manage the home properly to avoid additional exposures and if the facility qualifies as higher risk to have her tested. Nursing homes can now havepatients tested so there is a chance she may qualify as testing capability expands. Telephone Encounter - Patricia Braun RN - 11/03/2019 1:29 PM CDT Called Rachel to further triage. Rachel states fever started today. Patient had reported to her that it was somewhat harder to breathe today. Patient did not provide further details. Patient did not appear to be in respiratory distress per Rachel. [facility] does not have capability to check O2 saturations. Patient acting otherwise normal. No cough. Rachel notes a few other people in the home have recently had fevers. No known orsuspected cases of Covid-19 in the home. Patient also complaining of stomach ache. No further symptoms per Rachel. Rachel states she is not looking for orders, just wants an FYI sent to primary care provider. Rachel will call back with further concerns. Per chart, patient was seen 01/24/19 for abdominal pain. Patient was also seen 04/26/19, breathing concerns noted: For activity/breathing concerns: Mother has concerns with??Mahi??needing to rest when active.??There are no signs of poor cardiac function or asthma. Her mild anemia is not suspected as a cause.Advised??that it is likely she is deconditioned. Advised increasing regular activity and getting at least half an hour of exercise a day. A pulmonary function test can be performed if mother feels this is appropriate, but symptoms are notconsistent with asthma Telephone Encounter - Tiffani Davies - 11/03/2019 12:47 PM CDT Meme calling from the senior living to report that Mahi had a temperature of 100.8,was given tylenol and an hour later it is 100.7. Mahi reports being a little short of breath and some stomach pain. No cough present. Meme [phone]. documented in this encounter Plan of Treatment Not on filedocumented as of this encounter Visit Diagnoses Not on filedocumented in this encounter Additional Health Concerns Assessment Noted Time PHQ-9 Depression Total Score: 19 04/26/2019 5:13 PM CD T documented as of this encounter Care Teams Form Setter Supervisor Relationship Specialty Start Date End Date Queta Fritz MD PCP - General Pediatrics 12/19/15 05/27/20 [address] [place] [id number] Queta Fritz MD Assigned PCP 03/04/14 04/12/21 [address] [address] documented as of this encounter
--- OUTSIDE RECORDS SUMMARY | 2022-04-23 23:45 | XMS_ITS | Encounter Summary ---
:2000 Author Organization [place] Address [address] [place] [address] Care Team Providers Name Role Phone Queta Fritz MD Primary Care Provider [phone] Queta Fritz MD Unavailable [phone] Queta Fritz MD Unavailable [phone] Reason for Visit Reason Onset Date Comments Forms 08/17/2018 Encounter Details Date Type Department Care Team Description 08/17/2018 Telephone [facility] Christopher Fritz, Forms Krystle CORLEY [address] [place] [phone] [place] [address] (Wo rk) Social History Tobacco [...] do you attend adventism or Never 2018 mandaen services? Do you [...] slept in a long term (including now)? 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 F QUALITY OFFICER documented in this encounter Plan of Treatment Not on filedocumented as of this encounter Visit Diagnoses Not on filedocumented in this encounter Care Teams Civil Preparedness Officer Relationship Specialty Start Date End Date Queta Fritz MD PCP - General Pediatrics 12/19/15 05/27/20 [address] [place] [id number] Queta Fritz MD PCP - Assigned PCP 03/04/14 09/20/18 [address] [place] [address] [id number] Queta Fritz MD Assigned PCP 03/04/14 04/12/21 [address] [place] [id number] documented as of this encounter
--- OUTSIDE RECORDS SUMMARY | 2022-04-23 23:45 | XMS_ITS | Encounter Summary ---
:2000 Author Organization [place] Address [address] [place] [address] Care Team Providers Name Role Phone Queta Fritz MD Primary Care Provider [phone] Queta Fritz MD Unavailable [phone] Encounter Details Date Type Department Care Team Description 01/24/2019 Travel Social History Tobacco Use Types Packs/Day [...] do you attend faith or Never 2018 mandaen services? 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
--- OUTSIDE RECORDS SUMMARY | 2022-04-23 23:45 | XMS_ITS | Encounter Summary ---
:2000 Author Organization [facility] Address [address] [place] [address] Care Team Providers Name Role Phone Queta Fritz MD Primary Care Provider [phone] Queta Fritz MD Unavailable [phone] Reason for Referral Diagnostic Imaging XR (Routine) - Closed Specialty Diagnoses / Procedures Referred By Contact Refer red To Contact Diagnoses Pain in joint, ankle and foot, right Rocio Billingsley, Procedures XR Foot Right G/E 3 Views [address] [address] Referral ID Status Reason Start Date Expiration Date Visits Requ ested Visits Authorized [id number] Closed 01/17/2019 01/17/2020 1 1 Diagnostic Imaging XR (Routine) - Closed Specialty Diagnoses / Procedures Referred By Contact Refer red To Contact Diagnoses Pain in joint, ankle and foot, right Rocio Billingsley, Procedures XR Ankle Right G/E 3 Views [address] [address] Referral ID Status Reason Start Date Expiration Date Visits Requ ested Visits Authorized [id number] Closed 01/17/2019 01/17/2020 1 1 Reason for Visit Reason Comments Musculoskeletal Problem Patient has a foot injury. P CA thinks she needs a XRAY Encounter Details Date Type Department Care Team Description 01/17/2019 Office Visit [facility] Rocio Billingsley Pain in joint, ankle Clinic [place] MD Annie and foot, right [address] (Primary Dx) [address] [place] [address] [phone] (Wo rk) Social History Tobacco Use Types Packs/Day Years Used Date Never Smoker Smokeless Tobacco: Never Used Tobacco Cessation: Counseling [...] do you attend orthodox or Never 2018 taoist services? 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 encounter Last Filed Vital Signs Vital Sign Reading Time Taken Comments Blood Pressure 123/70 01/17/2019 2:26 PM CDT Pulse 100 01/17/2019 2:26 PM CDT Temperature 36.1 ??C (97 ??F) 01/17/2019 2:26 PM CDT Respiratory Rate 18 01/17/2019 2:26 PM CDT Oxygen Saturation 98% 01/17/2019 2:26 PM CDT Inhaled Oxygen Concentration - - Weight 74.1 kg (163 lb 6.4 oz) 01/17/2019 2:26 PM CDT Height 175.3 cm (5' 9) 01/17/2019 2:26 PM CDT Body Mass Index 24.13 01/17/2019 2:26 PM CDT Body Mass Index Percentile 80.33 % 01/17/2019 2:26 PM CD T Growth Chart: CDC (Girls, 2-20 Years) documented in this encounter Progress Notes Rocio Billingsley MD - 01/17/2019 2:15 PM CDT Subjective Mahi Faye is a 18 year old female who presents to clinic today with SOAP TENDER because of: Musculoskeletal Problem (Patient has a foot injury. SOAP TENDER thinks she needs a XRAY) HPI Joint Pain ?? Onset: Wednesday ?? Description: Location: RIGHT ankle Character: Sharp and Stabbing ?? Intensity: mild ?? Progression of Symptoms: intermittent ?? Accompanying Signs & Symptoms: Other symptoms: radiation of pain to toes to ankles and kness ?? History: Previous similar pain: YES ?? Precipitating factors: Trauma or overuse: YES- Patient had surgery, had a loose tendon in her knee cap ?? Alleviating factors: Improved by: support wrap, acetaminophen, Ibuprofen and physical therapy Therapies Tried and outcome: N/A She was seen at an outside ED for these symptoms. They did not get an xray but gave her a walking boot to use. Mahi feels strongly that she needs this boot to walk properly. She is most distressed that there is a 19 of January parade later this week that she wants to walk in to give out candy. SOAP TENDER points out that she can sit on the float and give out candy, but Mahi becomes very emotional and shuts down when she mentions this. Review of Systems Constitutional, eye, ENT, skin, respiratory, cardiac, and GI are normal except as otherwise noted. PROBLEM LIST Patient Active Problem List Diagnosis Date Noted ??? Mild anemia 09/28/2018 Priority: Medium ??? Mental health disorder 03/18/2016 Priority: Medium ??? 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 Do not take with a calcium containing drink Ergocalciferol (VITAMIN D) 56739 UNITS CAPS Take 50,000 Units by mouth every 7 days levonorgestrel-ethinyl estradiol (SEASONALE) 0.15-0.03 MG per tablet Take 1 tablet by mouth daily METFORMIN HCL PO Take 500 mg by mouth 2 times daily QUEtiapine ER (SEROQUEL XR) 300 MG 24 hr tablet Take 600 mg by mouth No current facility-administered medications on file prior to visit. ALLERGIES Allergies Allergen Reactions ??? Nkda [No Known Drug Allergies] ??? Seasonal Allergies Reviewed and updated as needed this visit by Provider Objective BP 123/70 (BP Location: Right arm, Patient Position: Sitting, Cuff Size: Adult Regular) Pulse 100 Temp 97 ??F (36.1 ??C) (Oral) Resp 18 Ht 5' 9 (1.753 m) Wt 163 lb 6.4 oz (74.1 kg) LMP 12/31/2018 (Approximate) SpO2 98% BMI 24.13 kg/m?? 92 %ile based on CDC (Girls, 2-20 Years) [id number] data based on Weight recorded on 01/17/2019. Blood pressure percentiles are 85 % systolic and 60 % diastolic based on the February 2017 AAP Clinical Practice Guideline. This reading is in the elevated blood pressure range (BP >= 120/80). Physical Exam General: alert, active, comfortable, in no acute distress Skin: no suspicious lesions or rashes, no petechiae, purpura or unusual bruises noted and skin is pink with a capillary refill time of <2 seconds in the extremities ANKLE: she has a knee brace in place on the right side. the injured ankle reveals no significant swelling or tenderness over the lateral or medial aspect of the ankle. The fifth metatarsal is not tender. The ankle joint is intact without excessive opening on stressing. The rest of the foot, ankle and leg exam is normal. Ankle / foot x-ray shows no fracture or abnormality by my reading, pending reading by radiologist. Assessment & Plan Mahi was seen today for musculoskeletal problem. Diagnoses and all orders for this visit: Pain in joint, ankle and foot, right; probable mild sprain - XR Ankle Right G/E 3 Views; Future - XR Foot Right G/E 3 Views; Future Dispensed aircast and encouraged Mahi to use this instead of the walking boot, as the boot may cause increased pain of the knee on that side, may hinder healing and flexibility of injured ankle. Rest the affected painful area as much as possible. Apply ice for 15-20 minutes intermittently as needed and especially after any offending activity. Daily stretching. As pain recedes, begin normal activities slowly as tolerated. Consider Physical Therapy if symptoms not better with symptomatic care. Follow up If not improving or if worsening Rocio Billingsley M.D. Pediatrics Greater than 50% of today's 25 minutes (Est 4) visit was spent in counseling / discussion of Mahi's diagnosis. documented in this encounter Plan of Treatment Not on filedocumented as of this encounter Results XR Foot Right G/E 3 Views (01/17/2019 2:53 PM CDT) Anatomical Region Laterality Modality Foot, Ankle Right Computed Radiography Specimen (Source) Anatomical Location Collection Method / Collectio n Time Received Time / Laterality Volume Impressions 01/17/2019 4:25 PM CDT IMPRESSION: Right ankle: No bony abnormality. Mild s oft tissue swelling about the ankle. Right foot: No bony or soft tissue abnor mality. FELISHA DELGADO MD Narrative 01/17/2019 4:25 PM CDT ANKLE RIGHT THREE OR MORE VIEWS, FOOT RIGHT THREE OR MORE VIEWS 01/17/2019 2:48 PM HISTORY: Pain in joint, ankle and foot, right. COMPARISON: None. Procedure Note Felisha Delgado MD - 01/17/2019Fo rmatting of this note might be different from the original. ANKLE RIGHT THREE OR MORE VIEWS, FOOT RI GHT THREE OR MORE VIEWS 01/17/2019 2:48 PM HISTORY: Pain in joint, ankle and foot, right. COMPARISON: None. IMPRESSION: Right ankle: No bony abnormality. Mild s oft tissue swelling about the ankle. Right foot: No bony or soft tissue abnor mality. FELISHA DELGADO MD Rocio Billingsley MD [facility] ORD ER[facility] XR Ankle Right G/E 3 Views (01/17/2019 2:48 PM CDT) Anatomical Region Laterality Modality Ankle, Left Ankle Right Computed Radiography Specimen (Source) Anatomical Location Collection Method / Collectio n Time Received Time / Laterality Volume Impressions 01/17/2019 4:25 PM CDT IMPRESSION: Right ankle: No bony abnormality. Mild s oft tissue swelling about the ankle. Right foot: No bony or soft tissue abnor mality. FELISHA DELGADO MD Narrative 01/17/2019 4:25 PM CDT ANKLE RIGHT THREE OR MORE VIEWS, FOOT RIGHT THREE OR MORE VIEWS 01/17/2019 2:48 PM HISTORY: Pain in joint, ankle and foot, right. COMPARISON: None. Procedure Note Felisha Delgado MD - 01/17/2019Fo rmatting of this note might be different from the original. ANKLE RIGHT THREE OR MORE VIEWS, FOOT RI GHT THREE OR MORE VIEWS 01/17/2019 2:48 PM HISTORY: Pain in joint, ankle and foot, right. COMPARISON: None. IMPRESSION: Right ankle: No bony abnormality. Mild s oft tissue swelling about the ankle. Right foot: No bony or soft tissue abnor mality. FELISHA DELGADO MD Rocio Billingsley MD [facility] ORD ERABLES documented in this encounter Visit Diagnoses Diagnosis Pain in joint, ankle and foot, right - P rimary Pain in joint, ankle and foot, right Pain in joint, ankle and foot, right documented in this encounter Additional Health Concerns Assessment Noted Time PHQ-9 Depression Total Score: 8 12/16/2018 4:14 PM CDT documented as of this encounter Care Teams Supervisor Ornamental Ironworking Relationship Specialty Start Date End Date Queta Fritz MD PCP - General Pediatrics 12/19/15 05/27/20 [address] [address] Queta Fritz MD Assigned PCP 03/04/14 04/12/21 [address] [facility] [address] [place], [place] [phone] documented as of this encounter
--- OUTSIDE RECORDS SUMMARY | 2022-04-23 23:45 | XMS_ITS | Encounter Summary ---
:2002 Author Organization [facility] Address [address] [place] [address] Care Team Providers Name Role Phone Queta Fritz MD Primary Care Provider [phone] Queta Fritz MD Unavailable Reason for Visit Reason Onset Date Comments Formulary Issue 12/23/2018 Calcium citrate Encounter Details Date Type Department Care Team Description 12/23/[address] [facility] Queta Fritz wilfred Issue Clinic Krystle De Jesus MD (Calcium citrate) [address] [place], [place] [phone] [place] [address] (Wo rk) Social History Tobacco [...] do you attend evangelical or Never 2018 yazdanism services? 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 Celine Stewart RN Telephone Encounter - Queta Fritz MD - 12/26/2018 10:36 PM CDT I have changed the Rx. Please let the assisted know of the change. Telephone Encounter - Leti Holder - 12/26/2018 1:52 PM CDT [facility]. Calcium citrate is not available. Requesting Calcium carbonate chew Telephone Encounter - Queta Fritz MD - 12/26/2018 1:43 PM CDT Calcium citrate is available in a chewable. Please find out what strength is available at the pharmacy. I will change the dose before I change the ion. Telephone Encounter - Patricia Braun RN - 12/23/2018 4:04 PM CDT Pharmacy states that calcium citrate is not available in chewables. They state calcium carbonate 500-400 mg-unit chew is available. Please advise. Pharmacy call back number [phone] documented in this encounter Plan of Treatment Not on filedocumented as of this encounter Visit Diagnoses Diagnosis Dietary counseling and surveillance - [facility] Dietary surveillance and counseling documented in this encounter Additional Health Concerns Assessment Noted Time PHQ-9 Depression Total Score: 8 12/16/2018 4:14 PM CDT documented as of this encounter Care Teams Aircraft Navigator Relationship Specialty Start Date End Date Queta Fritz MD PCP - General Pediatrics 12/19/15 05/27/20 [address] [place] [id number] Queta Fritz MD Assigned PCP 03/04/14 04/12/21 [address] [place] [phone] documented as of this encounter
--- OUTSIDE RECORDS SUMMARY | 2022-04-23 23:45 | XMS_ITS | Encounter Summary ---
:2002 Author Organization [facility] Address [address] [place] [address] Care Team Providers Name Role Phone Queta Fritz MD Primary Care Provider [phone] Queta Fritz MD Unavailable [phone] Reason for Visit Reason Onset Date Comments Medication Request 12/21/2018 Encounter Details Date Type Department Care Team Description 12/21/2018 Telephone [facility] Tiffanie Fritz Medication Request Krystle De Jesus MD [address] [place], [place] [address] [place] [address] (Wo rk) Social History Tobacco [...] or relatives? How often do you attend advent or Never 2018 baptist services? 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 Telephone Encounter - Queta Fritz MD - 12/21/2018 2:27 PM CDT ----- Message from Sarai Vilchis RN sent at 12/19/2018 6:38 PM CDT ----- Call to mom and informed her of primary care provider's message. Mom requesting order for first morning urine sample be faxed to retirement at [phone]. Order faxed. Mom is also requesting primary care provider writes prescription for calcium citrate chewable (with VIt D) twice a day and have this be faxed to retirement in order for it to be administered. Please advise, Thank you documented in this encounter Plan of Treatment Not on filedocumented as of this encounter Visit Diagnoses Diagnosis Vitamin D deficiency - Primary Unspecified vitamin D deficiency documented in this encounter Additional Health Concerns Assessment Noted Time PHQ-9 Depression Total Score: 8 12/16/2018 4:14 PM CDT documented as of this encounter Care Teams Marketing Research Analyst Relationship Specialty Start Date End Date Queta Fritz MD PCP - General Pediatrics 12/19/15 05/27/20 [address] [place] [address] Queta Fritz MD Assigned PCP 03/04/14 04/12/21 [address] [place] [address] documented as of this encounter
--- OUTSIDE RECORDS SUMMARY | 2022-04-23 23:45 | XMS_ITS | Encounter Summary ---
:2002 Author Organization [facility] Address [address] [place] [address] Care Team Providers Name Role Phone Queta Fritz MD Primary Care Provider [phone] Queta Fritz MD Unavailable [phone] Queta Fritz MD Unavailable [phone] Encounter Details Date Type Department Care Team Description 08/17/2018 Medical Correspondence [facility] Scan, STANDING ORDERS FOR Health Info Mgmt Non-Provider MEDICATIONS Srv[facility] [address] [place] [address] Social History Tobacco Use Types Packs/Day [...] or relatives? How often do you attend sabianism or Never 2018 episcopal services? Do you belong to any clubs or No 12/07/2018 organizations such as sabianism groups, unions, fraternal or athletic groups, or [...] a [place] [facility] [place] (including now)? 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
--- OUTSIDE RECORDS SUMMARY | 2022-04-23 23:45 | XMS_ITS | Encounter Summary ---
:2002 Author Organization [facility] Address [address] [place] [address] Care Team Providers Name Role Phone Queta Fritz MD Primary Care Provider [phone] Queta Fritz MD Unavailable [phone] Encounter Details Date Type Department Care Team Description 09/21/2018 Orders Only [facility] Ane osmin, unspecified type [employer] [address] [place] [address] Social History Tobacco Use Types Packs/Day Years [...] do you attend jain or Never 2018 confucianism services? Do you [...] slept in a senior living (including now)? 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 FECAL COLORECTAL Routine 09/21/2018 4:45 PM Anemia, unspecifie d Results for this CANCER SCREEN FIT COMPUTATOR type procedure are in the results section. documented in this encounter Results Fecal Lactoferrin (09/21/2018 4:45 PM COMPUTATOR) Patholo gist Method Time Signature Fecal Negative NEG^Negat 09/23/2018 [facility] Lactoferrin eunice 12:31 AM COMPUTATOR [facility] Comment: Test may not be appropriate for immunocompromised patients. Specimen Anatomical Collection Method Collection Time Receive d Time (Source) Location / / Volume Laterality Stool specimen 09/21/2018 4:45 PM 019 8:05 (specimen) COMPUTATOR PM COMPUTATOR Queta Fritz MD LAB - STOOLS ORDERABLES Performing Organization Address City/[facility]/[place] [facility] [place] [address] Fecal colorectal cancer screen (FIT) (09/21/2018 4:45 PM COMPUTATOR) Analysis Performed At Patho logist Time Signature Occult Blood Negative NEG^Negati 09/22/2018 [facility] Scn FIT ve 4:37 PM COMPUTATOR [facility] Specimen Anatomical Collection Method Collection Time Receive d Time (Source) Location / / Volume Laterality Stool specimen 09/21/2018 4:45 PM 019 8:05 (specimen) COMPUTATOR PM COMPUTATOR Queta Fritz MD LAB - STOOLS ORDERABLES Performing Organization Address City/[facility] Phon e Number [address] documented in this encounter Visit Diagnoses Diagnosis Anemia, unspecified type documented in this encounter Care Teams Community Living Coach Relationship Specialty Start Date End Date Queta Fritz MD PCP - General Pediatrics 12/19/15 05/27/20 [address] [place] [address] Queta Fritz MD Assigned PCP 03/04/14 04/12/21 [address] [place] [address] documented as of this encounter
--- OUTSIDE RECORDS SUMMARY | 2022-04-23 23:45 | XMS_ITS | Encounter Summary ---
:2000 Author Organization [facility] Address [address] [place] [address] Care Team Providers Name Role Phone Queta Fritz MD Primary Care Provider [phone] Queta Fritz MD Unavailable [phone] Reason for Referral Consultation (Routine) - Closed Specialty Diagnoses / Procedures Referred By Contact Refer red To Contact Diagnoses Abdominal pain, generalized Queta Fritz, UNKNOWN- [address] [place] [address] Referral ID Status Reason Start Date Expiration Date Visits Requ ested Visits Authorized [id number] Closed 12/16/2018 12/16/2019 1 1 Diagnostic Imaging XR (Routine) - Closed Specialty Diagnoses / Procedures Referred By Contact Refer red To Contact Diagnoses Abdominal pain, generalized Queta Fritz, Procedures XR Abdomen 1 View [address] [place] [address] Referral ID Status Reason Start Date Expiration Date Visits Requ ested Visits Authorized [id number] Closed 12/16/2018 12/16/2019 1 1 Reason for Visit Reason Comments Abdominal Pain Patient has had stomach prob lems since December 03 another doctor at [facility] diagnosed her as jacobs ving heartburn Anxiety Encounter Details Date Type Department Care Team Description 12/16/2018 Office Visit [facility] Queta Fritz Abdom inal pain, generalized (Primary Dx); Clinic [place] MD Liza Abnormal albumin [address] [place] [address] [phone] (Wo rk) Social History Tobacco Use Types [...] do you attend methodist or Never 2018 faith services? 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 documented as of this encounter Last Filed Vital Signs Vital Sign Reading Time Taken Comments Blood Pressure 124/77 12/16/2018 2:30 PM CDT Pulse 100 12/16/2018 2:30 PM CDT Temperature 36.6 ??C (97.9 ??F) 12/16/2018 2:30 PM CDT Respiratory Rate 18 12/16/2018 2:30 PM CDT Oxygen Saturation 98% 12/16/2018 2:30 PM CDT Inhaled Oxygen Concentration - - Weight 74.7 kg (164 lb 9.6 oz) 12/16/2018 2:30 PM CDT Height 170.8 cm (5' 7.25) 12/16/2018 2:30 PM CDT Body Mass Index 25.59 12/16/2018 2:30 PM CDT Body Mass Index Percentile 87.09 % 12/16/2018 2:30 PM CD T Growth Chart: CDC (Girls, 2-20 Years) documented in this encounter Progress Notes Queta Fritz MD - 12/16/2018 2:15 PM CDT Subjective Mahi Faye is a 18 year old female who presents to clinic today with mother because of: Abdominal Pain (Patient has had stomach problems since December 03 another doctor at [facility] diagnosed her as having heartburn) and Anxiety HPI Concerns: Patient complains of stomach pain since December 03, patient said she feels constipated mom said it started when she was taking iron pills. Patient went to the Emergency room and she was backed up, mom would like a x-ray to rule that out. Patients mom said Dr. Fritz ordered a stool sample and they never received the results for that. 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 Mental health problems managed by psychiatrist. Last year dx with mild anemia, not responding to iron therapy Care: She is in penitentiary Abdominal pain and constipation for about 7 months Constipation: not able to use the bathroom for awhile. She refuses to eat any solids due to back up.Tried prune juice but has not helped. States that when she eats she has pain in her abdomen area. When she eats she vomits. When she does not eat she dry heaves. She is not able to eat when her stomachhurts. Last time she had a solid stool was before the . When she wants to eat she is not able tobecause her stomach starts to hurt. She gags when she starts to eat. Sh states that her stomach is growling but she is not able to eat. Tried Miralax in the past with no improvement and caused diarrhea. Breathing: improved on its own. IMPEDS in [place] most recent visit: Started ranitidine for 10 days Review of Systems Constitutional, eye, ENT, skin, respiratory, cardiac, GI, MSK, neuro, and allergy are normal except as otherwise noted. This document serves as a record of the services and decisions personally performed and made by Queta Fritz MD, , MD. It was created on his behalf by Anushka Kwan a trained medical donation professional. The creation of this document is based on the provider's statements to the medical donation professional. Anushka Kwan December 16, 2018 3:00 PM PROBLEM LIST Patient Active Problem List Diagnosis [...] every 4 hours as needed for pain Ergocalciferol (VITAMIN D) 38366 UNITS CAPS Take 50,000 Units by mouth every 7 days levonorgestrel-ethinyl estradiol (SEASONALE) 0.15-0.03 MG per tablet Take 1 tablet by mouth daily METFORMIN HCL PO Take 500 mg by mouth 2 times daily QUEtiapine ER (SEROQUEL XR) 300 MG 24 hr tablet Take 600 mg by mouth ranitidine (ZANTAC) 150 MG tablet Take 1 tablet (150 mg) by mouth 2 times daily for 14 days No current facility-administered medications on file prior to visit. ALLERGIES Allergies Allergen Reactions ??? Nkda [No Known Drug Allergies] ??? Seasonal Allergies Reviewed and updated as needed this visit by Provider Objective BP 124/77 (BP Location: Right arm, Patient Position: Sitting, Cuff Size: Adult Small) Pulse 100 Temp 97.9 ??F (36.6 ??C) (Oral) Resp 18 Ht 5' 7.25 (1.708 m) Wt 164 lb 9.6 oz (74.7 kg) [id number]% BMI 25.59 kg/m?? 89 %ile based on CDC (Girls, 2-20 Years) [id number]-[id number] data based on Stature recorded on 12/16/2018. 93 %ile based on CDC (Girls, 2-20 Years) [id number] data based on Weight recorded on 12/16/2018. 87 %ile based on CDC (Girls, 2-20 Years) BMI-for-age based on body measurements available as of 12/16/2018. Blood pressure percentiles are 89 % systolic and 88 % diastolic based on the February 2017 AAP Clinical Practice Guideline. This reading is in the elevated blood pressure range (BP >= 120/80). Physical Exam GENERAL: Active, alert, in no [...] masses or hepatosplenomegaly. Bowel sounds normal. Diagnostics: as noted below Assessment ICD-10-CM 1. Abdominal pain, generalized R10.84 XR Abdomen 1 View GI EVALUATION PEDS REFERRAL CBC with platelets differential Erythrocyte sedimentation rate auto Ferritin Comprehensive metabolic panel Lipase Amylase FOLLOW UP: If not improving or if worsening ACUTE/CHRONIC PROBLEMS: Constipation: Not able to take Miralax due to increase in diarrhea when taking. XR plain film to alleviate pt concern. Follow up on previous labs, harrison to have evaluated by GI. Weight loss may be due to metformin and measures to contoll obesity, however alot of GI issues and unexplained mild anemia. I do strongly recommend we look for underlying medical causes. Reflux: May continue Zantac, switch to Prilosec if not improved. She would like to hold off on reflux medication. The information in this document, created by the medical donation professional for me, accurately reflects the services I personally performed and the decisions made by me. I have reviewed and approved this document for accuracy prior to leaving the patient care area. December 16, 2018 3:26 PM Queta Fritz MD documented in this encounter Plan of Treatment Scheduled Referrals Name Type Priority Associated Diagnoses Order S chedule GI EVALUATION PEDS Referral Routine Abdominal pain, Ordere d: 12/16/2018 REFERRAL generalized documented as of this encounter Procedures Procedure Name Priority Date/Time Associated Comments Diagnosis XR ABDOMEN 1 VIEW Routine 12/16/2018 3:37 PM Abdominal pain, R esults for this CDT generalized procedure are i n the results section. CBC WITH PLATELETS & Routine 12/16/2018 3:33 PM Abdominal pain , Results for this DIFFERENTIAL CDT generalized procedure are i n the results section. LIPASE Routine 12/16/2018 3:33 PM Abdominal pain, Result s for this CDT generalized procedure are i n the results section. FERRITIN Routine 12/16/2018 3:33 PM Abdominal pain, Result s for this CDT generalized procedure are i n the results section. ERYTHROCYTE Routine 12/16/2018 3:33 PM Abdominal pain, Result s for this SEDIMENTATION RATE CDT generalized procedure are in AUTO the results section. COMPREHENSIVE Routine 12/16/2018 3:33 PM Abdominal pain, Resul ts for this METABOLIC PANEL CDT generalized procedure ar e in the results section. AMYLASE Routine 12/16/2018 3:33 PM Abdominal pain, Result s for this CDT generalized procedure are i n the results section. documented in this encounter Results XR Abdomen 1 View (12/16/2018 3:37 PM CDT) Anatomical Region Laterality Modality Abdomen/Pelvis Computed Radiography Specimen (Source) Anatomical Location Collection Method / Collectio n Time Received Time / Laterality Volume Impressions 12/16/2018 4:12 PM CDT IMPRESSION: Small to moderate amount of stool. Nonobstructed bowel gas pattern. ERIN PENA MD Narrative 12/16/2018 4:12 PM CDT ABDOMEN ONE VIEW ??12/16/2018 3:37 PM HISTORY: Abdominal pain, generalized. COMPARISON: None. Procedure Note Erin Pena MD - 12/16/2018Fo rmatting of this note might be different from the original. ABDOMEN ONE VIEW 12/16/2018 3:37 PM HISTORY: Abdominal pain, generalized. COMPARISON: None. IMPRESSION: Small to moderate amount of stool. Nonobstructed bowel gas pattern. ERIN PENA MD Queta Fritz MD IMG DIAGNOSTIC IMAGING ORDER LINDSAY Amylase (12/16/2018 3:33 PM CDT) P athologist Signature Amylase 41 30 - 110 12/16/2018 [facility] U/L 8:05 PM CDT [facility] Specimen Anatomical Collection Method Collection Time Receive d Time (Source) Location / / Volume Laterality Blood specimen 12/16/2018 3:33 PM 019 3:38 (specimen) CDT PM CDT Queta Fritz MD LAB - BLOOD ORDERABLES Performing Organization Address City/State/ZIP Code Phon e Number [facility] [address] [place] [address] Lipase (12/16/2018 3:33 PM CDT) P athologist Signature Lipase 83 0 - 194 U/L 12/16/2018 [facility] 9:06 PM CDT [facility] Specimen Anatomical Collection Method Collection Time Receive d Time (Source) Location / / Volume Laterality Blood specimen 12/16/2018 3:33 PM 019 3:38 (specimen) CDT PM CDT Queta Fritz MD LAB - BLOOD ORDERABLES Performing Organization Address City/[facility]/ZIP Code Phon e Number [facility] [address] [place] [address] [facility] (ABNORMAL) Comprehensive metabolic panel (12/16/2018 3:33 PM CDT) Patholo gist Method Time Signature Sodium 138 133 - 144 12/16/2018 [facility] mmol/L 7:51 PM CDT CLINICS [facility] Potassium 3.9 3.4 - 5.3 12/16/2018 [facility] mmol/L 7:51 PM CDT [facility] Chloride 106 96 - 110 12/16/2018 [facility] mmol/L 7:51 PM CDT [facility] Carbon Dioxide 24 20 - 32 12/16/2018 [facility] mmol/L 8:05 PM CDT [facility] Anion Gap 8 3 - 14 12/16/2018 [facility] mmol/L 8:05 PM CDT [facility] Glucose 75 70 - 99 12/16/2018 [facility] mg/dL 8:05 PM CDT [facility] Urea Nitrogen 8 7 - 19 12/16/2018 [facility] mg/dL 8:05 PM CDT [facility] Creatinine 0.71 0.50 - 12/16/2018 [facility] 1.00 8:05 PM CDT CLINICS mg/dL [facility] GFR Estimate GFR not >60 12/16/2018 [facility] calculated, mL/min/{1 8:05 PM T CLINICS patient <18 .73_m2} [place] years old. [facility] Comment: Non GFR Calc Starting 07/05/2018, serum creatinine ba sed estimated GFR (eGFR) will be calculated using the Chronic Kidney Dise [facility] Epidemiology Collaboration (CKD-EPI) equation. GFR Estimate GFR not >60 mL/min/{1.73_m2} 12/16/2018 8:05 [facility] If Black calculated, PM CDT [place] patient <18 [facility] years old. Comment: GFR Calc Starting 07/05/2018, serum creatinine ba sed estimated GFR (eGFR) will be calculated using the Chronic Kidney Dise [facility] Epidemiology Collaboration (CKD-EPI) equation. Calcium 8.6 (L) 9.1 - 10.3 12/16/2018 8:05 PM [facility] mg/dL T [facility] Bilirubin Total 0.2 0.2 - 1.3 12/16/2018 8:05 PM [facility] mg/dL T [facility] Albumin 3.3 (L) 3.4 - 5.0 g/dL 12/16/2018 8:05 PM [facility] Protein Total 7.5 6.8 - 8.8 g/dL 12/16/2018 8:05 PM [facility] Alkaline Phosphatase 106 40 - 150 U/L 12/16/2018 8:05 [facility] ALT 28 0 - 50 U/L 12/16/2018 8:05 PM [facility] T [facility] AST 11 0 - 35 U/L 12/16/2018 8:05 PM [facility] Specimen Anatomical Collection Method Collection Time Receive d Time (Source) Location / / Volume Laterality Blood specimen 12/16/2018 3:33 PM 019 3:38 (specimen) CDT PM CDT Queta Fritz MD LAB - BLOOD ORDERABLES Performing Organization Address City/State/ZIP Code Phon e Number [facility] [address] [place] [address] Ferritin (12/16/2018 3:33 PM CDT) athologist Signature Ferritin 57 12 - 150 12/16/2018 [facility] ng/mL 8:26 PM CDT [facility] Specimen Anatomical Collection Method Collection Time Receive d Time (Source) Location / / Volume Laterality Blood specimen 12/16/2018 3:33 PM 019 3:38 (specimen) CDT PM CDT Queta Fritz MD LAB - BLOOD ORDERABLES Performing Organization Address [facility]/ZIP Code Phon e Number [facility] [address] [place] [address] (ABNORMAL) Erythrocyte sedimentation rate auto (12/16/2018 3:33 PM CDT) athologist Signature Sed Rate 53 (H) 0 - 20 mm/h 12/16/2018 [facility] 3:52 PM CDT [facility] Comment: Results confirmed by repeat alexia t Specimen Anatomical Collection Method Collection Time Receive d Time (Source) Location / / Volume Laterality Blood specimen 12/16/2018 3:33 PM 019 3:38 (specimen) CDT PM CDT Queta Fritz MD LAB - BLOOD ORDERABLES Performing Organization Address City/[facility]/ZIP Code Phon e Number [facility] [address] [place], [place] [address] [address] (ABNORMAL) CBC with platelets differential (12/16/2018 3:33 PM CDT) [facility] [place] gist Method Time Signature WBC 12.7 (H) 4.0 - 11.0 12/16/2018 [facility] 10e9/L 3:51 PM CDT [facility] RBC Count 4.01 3.7 - 5.3 12/16/2018 [facility] 10e12/L 3:51 PM CDT [facility] Hemoglobin 10.4 (L) 11.7 - 12/16/2018 [facility] 15.7 g/dL 3:51 PM CDT [facility] Hematocrit 32.4 (L) 35.0 - 12/16/2018 [facility] 47.0 % 3:51 PM [facility] MCV 81 77 - 100 12/16/2018 [facility] fl 3:51 PM [facility] MCH 25.9 (L) 26.5 - 12/16/2018 [facility] 33.0 pg 3:51 PM [facility] MCHC 32.1 31.5 - 12/16/2018 [facility] 36.5 g/dL 3:51 PM [facility] RDW 14.2 10.0 - 12/16/2018 [facility] 15.0 % 3:51 PM [facility] Platelet Count 368 150 - 450 12/16/2018 [facility] 10e9/L 3:51 PM [facility] Comment: Results confirmed by repeat alexia t % Neutrophils 76.5 % 12/16/2018 3:51 PM [facility] [place] Lymphocytes 17.1 % 12/16/2018 3:51 PM [facility] % Monocytes 5.4 % 12/16/2018 3:51 PM [facility] % Eosinophils 0.8 % 12/16/2018 3:51 PM [facility] % Basophils 0.2 % 12/16/2018 3:51 PM [facility] Absolute Neutrophil 9.7 (H) 1.3 - 7.0 12/16/2018 3:51 PM [facility] 10e9/L [facility] Absolute 2.2 1.0 - 5.8 12/16/2018 3:51 PM [facility] Lymphocytes 10e9/L [facility] Absolute Monocytes 0.7 0.0 - 1.3 12/16/2018 3:51 PM [facility] 10e9/L [facility] Absolute 0.1 0.0 - 0.7 12/16/2018 3:51 PM [facility] Eosinophils 10e9/L [facility] Absolute Basophils 0.0 0.0 - 0.2 12/16/2018 3:51 PM [facility] 10e9/L [facility] Diff Method Automated Method 12/16/2018 3:51 PM [facility] Specimen Anatomical Collection Method Collection Time Receive d Time (Source) Location / / Volume Laterality Blood specimen 12/16/2018 3:33 PM 019 3:38 (specimen) CDT PM CDT Queta Fritz MD LAB - BLOOD ORDERABLES Performing Organization Address City/State/ZIP Code Phon e Number [facility] [address] [place], [place] [address] [address] documented in this encounter Visit Diagnoses Diagnosis Abdominal pain, generalized - Primary Abnormal albumin Other nonspecific findings on examinatio n of blood documented in this encounter Additional Health Concerns Assessment Noted Time PHQ-9 Depression Total Score: 8 12/16/2018 4:14 PM CDT documented as of this encounter Care Teams Sanding Line Operator Relationship Specialty Start Date End Date Queta Fritz MD PCP - General Pediatrics 12/19/15 05/27/20 [address] [place] [address] Queta Fritz MD Assigned PCP 03/04/14 04/12/21 [address] [place] [address] documented as of this encounter
--- OUTSIDE RECORDS SUMMARY | 2022-04-23 23:45 | XMS_ITS | Encounter Summary ---
:2002 Author Organization [facility] Address [address] [place] [address] Care Team Providers Name Role Phone Queta Fritz MD Primary Care Provider [phone] Queta Fritz MD Unavailable [phone] Queta Fritz MD Unavailable [phone] Encounter Details Date Type Department Care Team Description 08/17/2018 Travel Social History Tobacco Use Types Packs/Day [...] do you attend shinto or Never 2018 protestant services? Do you [...] or slept in a assisted (including now)? 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
--- OUTSIDE RECORDS SUMMARY | 2022-04-23 23:45 | XMS_ITS | Encounter Summary ---
:2000 Author Organization [facility] Address [address] [place] [address] Care Team Providers Name Role Phone Queta Fritz MD Primary Care Provider Queta Fritz MD Unavailable [phone] Reason for Visit Diagnostic Imaging XR (Routine) - Closed Specialty Diagnoses / Procedures Referred By Contact Refer red To Contact Diagnoses Abdominal pain, generalized Queta Fritz, Procedures XR Abdomen 1 View [address] [place] [address] Referral ID Status Reason Start Date Expiration Date Visits Requ ested Visits Authorized [id number] Closed 12/16/2018 12/16/2019 1 1 Encounter Details Date Type Department Care Team Description 12/16/2018 Ancillary Procedure [facility] Tiffanie Fritz [facility] MD Kita Patel [address] [place], [place] [address] [place] [address] [phone] (Wo rk) Social History Tobacco Use Types [...] or relatives? How often do you attend oriental orthodox or Never 2018 gnosticist services? 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 documented as of this encounter Plan of Treatment Not on filedocumented as of this encounter Procedures Procedure Name Priority Date/Time Associated Diagnosis Comme nts XR ABDOMEN 1 VIEW Routine 12/16/2018 3:37 [...] Fritz MD IMG DIAGNOSTIC IMAGING ORDER LINDSAY documented in this encounter Visit Diagnoses Not on filedocumented in this encounter Additional Health Concerns Assessment Noted Time PHQ-9 Depression Total Score: 8 12/16/2018 4:14 PM CDT documented as of this encounter Care Teams Emergency Physician Relationship Specialty Start Date End Date Queta Fritz MD PCP - General Pediatrics 12/19/15 05/27/20 [address] [address] Queta Fritz MD Assigned PCP 03/04/14 04/12/[address] [address] documented as of this encounter
--- OUTSIDE RECORDS SUMMARY | 2022-04-23 23:45 | XMS_ITS | Encounter Summary ---
:2002 Author Organization [facility] Address [address] [place] [address] Care Team Providers Name Role Phone Queta Fritz MD Primary Care Provider [phone] Queta Fritz MD Unavailable [phone] Encounter Details Date Type Department Care Team Description 12/08/2018 Travel Social History Tobacco Use Types Packs/Day [...] do you attend zoroastrian or Never 2018 faith services? 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
--- OUTSIDE RECORDS SUMMARY | 2022-04-23 23:45 | XMS_ITS | Encounter Summary ---
:2002 Author Organization [facility] Address [address] [place] [address] Care Team Providers Name Role Phone Queta Fritz MD Primary Care Provider [phone] Queta Fritz MD Unavailable [phone] Reason for Visit Reason Onset Date Comments Forms 12/27/2018 [facility] - ysician Orders Encounter Details Date Type Department Care Team Description 12/27/2018 [facility] Queta Fritz Forms ([facility] Krystle De Jesus MD - Physician Orders) [address] [place], [place] [address] [place], [place] [id number] (Wo rk) Social History Tobacco Use Types [...] do you attend adventism or Never 2018 latter-day services? 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 Fritz's in basket Fax documented in this encounter Plan of Treatment Not on filedocumented as of this encounter Visit Diagnoses Not on filedocumented in this encounter Additional Health Concerns Assessment Noted Time PHQ-9 Depression Total Score: 8 12/16/2018 4:14 PM CDT documented as of this encounter Care Teams Pigment Weigher Relationship Specialty Start Date End Date Queta Fritz MD PCP - General Pediatrics 12/19/15 05/27/20 [address] [place] [address] Queta Fritz MD Assigned PCP 03/04/14 04/12/21 [address] [place] [address] documented as of this encounter
--- OUTSIDE RECORDS SUMMARY | 2022-04-23 23:45 | XMS_ITS | Encounter Summary ---
:2002 Author Organization [place] Address [address] [place] [address] Care Team Providers Name Role Phone Queta Fritz MD Primary Care Provider [phone] Queta Fritz MD Unavailable [phone] Encounter Details Date Type Department Care Team Description 12/07/2018 Travel Social History Tobacco Use Types Packs/Day [...] or relatives? How often do you attend episcopal or Never 2018 evangelical services? 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
--- OUTSIDE RECORDS SUMMARY | 2022-04-23 23:45 | XMS_ITS | Encounter Summary ---
:2002 Author Organization [place] Address [address] [place] [address] Care Team Providers Name Role Phone Queta Fritz MD Primary Care Provider [phone] Queta Fritz MD Unavailable [phone] Encounter Details Date Type Department Care Team Description 12/16/2018 Travel Social History Tobacco Use Types Packs/Day [...] do you attend shinto or Never 2018 roman catholic services? 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
--- OUTSIDE RECORDS SUMMARY | 2022-04-23 23:45 | XMS_ITS | Encounter Summary ---
:2002 Author Organization [place] Address [address] [place] [address] Care Team Providers Name Role Phone Queta Fritz MD Primary Care Provider [phone] Queta Fritz MD Unavailable [phone] Reason for Visit Reason Onset Date Comments Forms 10/14/2018 Green A Encounter Details Date Type Department Care Team Description 10/14/2018 Telephone [facility] Queta Fritz Forms (Special Clinic Krystle De Jesus MD [facility]) [address] [place] [address] [place], [place] [address] (Wo rk) Social History Tobacco Use Types [...] do you attend jew or Never 2018 sikhism services? 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 Copy sent to [employer] Telephone Encounter - Queta Fritz MD - 10/17/2018 9:07 PM CDT done Telephone Encounter - Leti Holder - 10/14/2018 9:06 AM CDT [employer] form in Dr Fritz's basket Fax to [phone] documented in this encounter Plan of Treatment Not on filedocumented as of this encounter Visit Diagnoses Not on filedocumented in this encounter Care Teams Tire Repairer Relationship Specialty Start Date End Date Queta Fritz MD PCP - General Pediatrics 12/19/15 05/27/20 [address] [place] [id number] Queta Fritz MD Assigned PCP 03/04/14 04/12/21 [address] [place] [address] documented as of this encounter
--- OUTSIDE RECORDS SUMMARY | 2022-04-23 23:45 | XMS_ITS | Encounter Summary ---
:2002 Author Organization [place] Address [address] [place] [address] Care Team Providers Name Role Phone Queta Fritz MD Primary Care Provider Queta Fritz MD Unavailable [phone] Reason for Visit Diagnostic Imaging XR (Routine) - Closed Specialty Diagnoses / Procedures Referred By Contact Refer red To Contact Diagnoses Pain in joint, ankle and foot, right Rcoio Billingsley, Procedures XR Foot Right G/E 3 Views [address] [address] Referral ID Status Reason Start Date Expiration Date Visits Requ ested Visits Authorized [id number] Closed 01/17/2019 01/17/2020 1 1 Encounter Details Date Type Department Care Team Description 01/17/2019 Ancillary [facility] Rocio Billingsley Pain in joint, ankle Procedure Clinic Krystle Valencia MD and foot, right [address] [place] [address] [address] [phone] Social History Tobacco Use Types Packs/Day Years [...] you attend oriental orthodox or Never 2018 mu-ism services? 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 documented in this encounter Results XR Foot Right G/E [...] mality. FELISHA DELGADO MD Rocio Billingsley MD IMG DIAGNOSTIC IMAGING ORD ERABLES documented in this encounter Visit Diagnoses Diagnosis Pain in joint, ankle and foot, right documented in this encounter Additional Health Concerns Assessment Noted Time PHQ-9 Depression Total Score: 8 12/16/2018 4:14 PM CDT documented as of this encounter Care Teams Rn Coronary Care Unit Relationship Specialty Start Date End Date Queta Fritz MD PCP - General Pediatrics 12/19/15 05/27/20 [address] [place] [address] Queta Fritz MD Assigned PCP 03/04/14 04/12/21 [address] [place] [address] documented as of this encounter
--- OUTSIDE RECORDS SUMMARY | 2022-04-23 23:45 | XMS_ITS | Encounter Summary ---
:2002 Author Organization [place] Address [address] [place] [address] Care Team Providers Name Role Phone Queta Fritz MD Primary Care Provider [phone] Queta Fritz MD Unavailable [phone] Reason for Visit Diagnostic Imaging XR (Routine) - Closed Specialty Diagnoses / Procedures Referred By Contact Refer red To Contact Diagnoses Pain in joint, ankle and foot, right Rocio Billingsley, Procedures XR Ankle Right G/E 3 Views [address] [address] Referral ID Status Reason Start Date Expiration Date Visits Requ ested Visits Authorized [id number] Closed 01/17/2019 01/17/2020 1 1 Encounter Details Date Type Department Care Team Description 01/17/2019 Ancillary [facility] Rocio Billingsley Pain in joint, ankle Procedure Clinic Krystle Valencia MD and foot, right [address] [place] [address] [address] [phone] Social History Tobacco Use Types Packs/Day Years [...] or relatives? How often do you attend druze or Never 2018 presybeterian services? 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 documented in this encounter Results XR Ankle Right G/E 3 Views (01/17/2019 [...] documented as of this encounter Care Teams Network Systems Analyst Relationship Specialty Start Date End Date Queta Fritz MD PCP - General Pediatrics 12/19/15 05/27/20 [address] [place] [address] Queta Fritz MD Assigned PCP 03/04/14 04/12/21 [address] [place] [address] documented as of this encounter
--- OUTSIDE RECORDS SUMMARY | 2022-04-23 23:45 | XMS_ITS | Encounter Summary ---
:2002 Author Organization [facility] Address [address] [place] [address] Care Team Providers Name Role Phone Queta Fritz MD Primary Care Provider [phone] Queta Fritz MD Unavailable [phone] Reason for Visit Reason Onset Date Comments Medication Compliance Issues 01/31/2019 Encounter Details Date Type Department Care Team Description 01/31/2019 Telephone [facility] Queta Frizt Medic ation Compliance Clinic Krystle De Jeuss MD Issues [address] [place], [place] [address] [place], [place] [id number] (Wo rk) Social History Tobacco Use Types [...] or relatives? How often do you attend spiritism or Never 2018 roman catholic services? 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 Telephone Encounter - Tiffani Davies - 01/31/2019 10:22 AM CDT Willow with [employer] calling because there was a medication error. The patient received her calcium carbonate at 9pm instead of 10pm. Willow can be reached at [phone]. documented in this encounter Plan of Treatment Not on filedocumented as of this encounter Visit Diagnoses Not on filedocumented in this encounter Additional Health Concerns Assessment Noted Time PHQ-9 Depression Total Score: 8 12/16/2018 4:14 PM CDT documented as of this encounter Care Teams Machine Trimmer Relationship Specialty Start Date End Date Queta Fritz MD PCP - General Pediatrics 12/19/15 05/27/20 [address] [place] [address] Queta Fritz MD Assigned PCP 03/04/14 04/12/21 [address] [place] [address] documented as of this encounter
--- OUTSIDE RECORDS SUMMARY | 2022-04-23 23:45 | XMS_ITS | Encounter Summary ---
:2002 Author Organization [facility] Address [address] [place] [address] Care Team Providers Name Role Phone Queta Fritz MD Primary Care Provider [phone] Queta Fritz MD Unavailable [phone] Reason for Visit Reason Onset Date Comments Panel Management 12/16/2018 Encounter Details Date Type Department Care Team Description 12/16/2018 Telephone [facility] Tiffanie Fritz Panel Management Krystle De Jesus MD [address] [place] [address] [place], [place] [address] (Wo rk) Social History [...] do you attend pentecostal or Never 2018 restorationism services? 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 Patient is due for:Nurse Only Menactra. Summary: Patient is due/failing the following: Immunizations. Action needed: Patient needs nurse only appointment. Type of outreach: parent notified Questions for provider review: None. OR[place]O Roblero Chart routed to Care Team . documented in this encounter Plan of Treatment Not on filedocumented as of this encounter Visit Diagnoses Not on filedocumented in this encounter Additional Health Concerns Assessment Noted Time PHQ-9 Depression Total Score: 8 12/16/2018 4:14 PM CDT documented as of this encounter Care Teams Jalousie Installer Relationship Specialty Start Date End Date Queta Fritz MD PCP - General Pediatrics 12/19/15 05/27/20 [address] [place] [address] Queta Fritz MD Assigned PCP 03/04/14 04/12/21 [address] [place] [address] documented as of this encounter
--- OUTSIDE RECORDS SUMMARY | 2022-04-23 23:45 | XMS_ITS | Encounter Summary ---
:2002 Author Organization [facility] Address [address] [place] [address] Care Team Providers Name Role Phone Queta Fritz MD Primary Care Provider [phone] Queta Fritz MD Unavailable [phone] Reason for Visit Reason Comments Pre-Op Exam Encounter Details Date Type Department Care Team Description 09/21/2018 Office Visit [facility] Queta Fritz Preop general physical exam (Primary Dx); Clinic Krystle De Jesus MD Arthralgia of right knee; [address] [place] [address] Learning disability; [place] [address] [place] [address] (Wo rk) Social History Tobacco Use [...] do you attend samaritan or Never 2018 muslim services? 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 documented as of this encounter Last Filed Vital Signs Vital Sign Reading Time Taken Comments Blood Pressure 127/69 09/21/2018 11:28 AM HOME RESTORATION SERVICE CLEANER Pulse 90 09/21/2018 11:28 AM HOME RESTORATION SERVICE CLEANER Temperature 37.1 ??C (98.7 ??F) 09/21/2018 11:28 AM HOME RESTORATION SERVICE CLEANER Respiratory Rate 20 09/21/2018 11:28 AM HOME RESTORATION SERVICE CLEANER Oxygen Saturation 98% 09/21/2018 11:28 AM HOME RESTORATION SERVICE CLEANER Inhaled Oxygen Concentration - - Weight 79.8 kg (176 lb) 09/21/2018 11:28 AM HOME RESTORATION SERVICE CLEANER Height 172.7 cm (5' 8) 09/21/2018 11:28 AM HOME RESTORATION SERVICE CLEANER Body Mass Index 26.76 09/21/2018 11:28 AM HOME RESTORATION SERVICE CLEANER Body Mass Index Percentile 90.88 % 09/21/2018 11:[address] Growth Chart: [facility] (Girls, 2-20 Years) documented in this encounter Patient Instructions Patient InstructionsYolie De La Torre MA - 09/21/2018 11:15 AM CST Before Your Child???s Surgery or Sedated Procedure ??? Please call the doctor if there???s any change in your child???s health, including signs of a cold or flu (sore throat, runny nose, cough, rash or fever). If your child is having surgery, call the surgeon???s office. If your child is having another procedure, call your family doctor. ??? Do not give ldpi-bml-nldezsg medicine within 24 hours of the surgery [...] and use clean sheets on their bed. RESTORATION SERVICE CLEANER documented in this encounter Progress Notes Queta Fritz MD - 09/21/2018 11:15 AM CST [place] [address] [address] [facility] [id number] Dept: [phone] PRE-OP EVALUATION: Mahi Faye is a 18 year old female with developmental delay, here for a pre-operative evaluation, accompanied by her mother [facility] Orthopedics Today's date: 09/21/2018 This report to be faxed to [facility] [phone] Primary Physician: Queta Fritz Type of Anesthesia Anticipated: General PRE-OP PEDIATRIC QUESTIONS 09/21/2018 What procedure is being done? knee scope, lateral release and MPFL reconstruction Date of surgery / procedure: 09/26/18 Facility or Hospital where procedure/surgery will be performed: [facility] Who is doing the procedure / surgery? Dr. Estiven Worthington 1. In the last week, has your child had any illness, including a cold, cough, shortness of breath orwheezing? YES - resolved cough. No runny nose in 5-6days 2. In the last week, has your child used ibuprofen or aspirin? YES - Ibuprofen for knee pain 3. Does your child use herbal medications? No 4. In the past 3 weeks, has your child been exposed to (select all that apply): None 5. Has your child ever had wheezing or asthma? No 6. Does your child use supplemental oxygen or a C-PAP Machine? No 7. Has your child ever had anesthesia or been put under for a procedure? YES - about 2015 8. Has your child or anyone in your family ever had problems with anesthesia? No 9. Does your child or anyone in your family have a serious bleeding problem or easy bruising? No 10. Has your child ever had a blood transfusion? No 11. Does your child have an implanted device (for example: cochlear implant, pacemaker, HOT PIPE GAUGER shunt)? No HPI: Brief HPI related to upcoming procedure: Mahi has had severe knee pain after minor injury that appeared to result in subluxation on 08/23. She presented to the ED where the ED physician saw minor rotational malalignment that resolved after manipulation in the exam room that was also accompanied by marked releif of pain. Since then she has been followed by [facility] with immobilizer Her symptoms did not franc so MRI performed which showed torn MPFL. This will be reconstructed. Medical History: PROBLEM LIST Patient Active Problem List Diagnosis Date Noted ??? Mental health disorder 03/18/2016 Priority: Medium [...] DRAINAGE TONSIL, COMBINED 2013 under general anesthesia MEDICATIONS Current Outpatient Medications Medication Sig Dispense Refill ??? acetaminophen (TYLENOL) 500 MG tablet Take 1-2 tablets (500-1,000 mg) by mouth every 4 hours as needed for pain 100 tablet 11 ??? Ergocalciferol (VITAMIN D) 22260 UNITS CAPS Take 50,000 Units by mouth every 7 days 8 capsule 0 ??? levonorgestrel-ethinyl estradiol (SEASONALE) 0.15-0.03 MG per tablet Take 1 tablet by mouth daily 84 tablet 3 ??? METFORMIN HCL PO Take 500 mg by mouth 2 times daily ??? QUEtiapine ER (SEROQUEL XR) 300 MG 24 hr tablet Take 600 mg by mouth ALLERGIES Allergies Allergen Reactions ??? Nkda [No Known Drug Allergies] ??? Seasonal Allergies Review of Systems: Constitutional, eye, ENT, skin, respiratory, cardiac, GI, MSK, neuro, and allergy are normal except as otherwise noted. Physical Exam: BP 127/69 (BP Location: Left arm, Patient Position: Chair, Cuff Size: Adult Regular) Pulse 90 Temp 98.7 ??F (37.1 ??C) (Oral) Resp 20 Ht 5' 8 (1.727 m) Wt 176 lb (79.8 kg) LMP 05/19/2018 SpO2 98% BMI 26.76 kg/m?? 94 %ile based on CDC (Girls, 2-20 Years) Fxecbvt-tpq-bly data based on Stature recorded on 09/21/2018. 95 %ile based on CDC (Girls, 2-20 Years) vwborg-uum-grm data based on Weight recorded on 09/21/2018. 91 %ile based on CDC (Girls, 2-20 Years) BMI-for-age based on body measurements available as of 09/21/2018. Blood pressure percentiles are 93 % systolic and 57 % diastolic based on the February 2017 AAP Clinical Practice Guideline. This reading is in the elevated blood pressure range (BP >= 120/80). GENERAL: Active, alert, in no acute distress. She is protective of her right knee which is in a sleeve SKIN: Clear. No significant rash, abnormal pigmentation [...] no masses or hepatosplenomegaly. Bowel sounds normal. Extremities: FROM except for the right LE which has moderate non pitting edema. Mahi is unwillingto bend the knee but is able to inspection manager the ankle foot and toes with only a sense of tightness. Diagnostics: None indicated Assessment/Plan: Mahi Faye is a 18 year old female, presenting for: 1. Preop general physical exam 2. Arthralgia of right knee 3. Learning disability 4. Mild anemia Airway/Pulmonary Risk: None identified Cardiac Risk: None identified Hematology/Coagulation Risk: None identified. She has a mild anemia that is stable and is being worked up. Metabolic Risk: None identified Pain/Comfort Risk: Mahi is developmentally delayed and will likely present a challenge to controlher pain. Approval given to proceed with proposed procedure, without further diagnostic evaluation Copy of this evaluation report is provided to requesting physician. September 21, 2018 Resources [facility]: Preparing your child for surgery Signed Electronically by: Queta Fritz MD [place] [address] [address] [facility] [id number] documented in this encounter Plan of Treatment Not on filedocumented as of this encounter Visit Diagnoses Diagnosis Preop general physical exam - Primary Other specified pre-operative examinatio n Arthralgia of right knee Learning disability Other specific developmental learning di fficulties Mild anemia Anemia, unspecified documented in this encounter Care Teams An/Syq 13 Nav/C2 Operator Relationship Specialty Start Date End Date Queta Fritz MD PCP - General Pediatrics 12/19/15 05/27/20 [address] [place] [id number] Queta Fritz MD Assigned PCP 03/04/14 04/12/21 [address] [place] [address] [id number] documented as of this encounter
--- OUTSIDE RECORDS SUMMARY | 2022-04-23 23:45 | XMS_ITS | Encounter Summary ---
:2002 Author Organization [facility] Address [address] [place] [address] Care Team Providers Name Role Phone Queta Fritz MD Primary Care Provider [phone] Queta Fritz MD Unavailable [phone] Encounter Details Date Type Department Care Team Description 09/21/2018 Travel Social History Tobacco Use Types Packs/Day [...] do you attend moravian or Never 2018 sikh services? 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
--- OUTSIDE RECORDS SUMMARY | 2022-04-23 23:45 | XMS_ITS | Encounter Summary ---
:2002 Author Organization [place] [facility] Address [address] [place] [address] Care Team Providers Name Role Phone Queta Fritz MD Primary Care Provider [phone] Queta Fritz MD Unavailable Encounter Details Date Type Department Care Team Description 01/17/2019 Travel Social History Tobacco Use Types Packs/Day [...] do you attend yarsanism or Never 2018 alevism services? 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
--- OUTSIDE RECORDS SUMMARY | 2022-04-23 23:45 | XMS_ITS | Encounter Summary ---
:2000 Author Organization [place] Address [address] [place] [address] Care Team Providers Name Role Phone Queta Fritz MD Primary Care Provider [phone] Queta Fritz MD Unavailable [phone] Reason for Visit Auth/Cert Specialty Diagnoses / Procedures Referred By Contact Refer red To Contact Surgery Diagnoses weight loss Rh Periop Services Procedures ESOPHAGOGASTRODUODENOSCOPY (EGD) COLONOSCOPY [address] [place], [place] [address] Phone: Fax: Referral ID Status Reason Start Date Expiration Date Visits Requ ested Visits Authorized [id number] 1 1 Encounter Details Date Type Department Care Team Description 02/10/2019 Hospital Encounter [facility] iVkas Hammonds MD PreOP/PostOP [address] [place], [place] [phone] [phone] Social History Tobacco Use Types Packs/Day Years [...] do you attend sikh or Never 2018 orthodoxy services? 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 (Girls, 2-20 Years) documented in this encounter Discharge Instructions Discharge Karoline Jacobs RN - 02/10/2019 8:49 AM CDT UPPER ENDOSCOPY AND/OR COLONOSCOPY Discharge Instructions for Beth Squires Neyda Activity and Diet ? During your procedure, [...] introduced during the examination. Walking around, turning beno-wk-gtaj and laying flat on your abdomen may [...] seen 2-3 weeks by your primary pediatric lock tender from the date of your procedure to discuss the results in person and make decisions on the future management. For urgent questions please call: [phone] for hospital page bander operator and ask to speak with the Pediatric Gastroenterology provider lubrication technician Otherwise, please call our office at [phone] and your call will be returned within [...] by the physician, the nurse and the sap basis in the procedure room. Procedure: A colonoscope [...] M.D. Director, [facility] [place]el [place], Pediatric Gastroenterology [facility] Delivery Code #8952C [address] [facility] [address] Vikas Martin MD - 02/10/2019 5:55 AM [...] by the physician, the nurse and the sap basis in the procedure room. Procedure: the endoscope [...] see report in Provation. Vikas Martin M.D. [place], Pediatric Gastroenterology [facility] documented in this encounter Nursing Notes Eleanor [...] encounter Miscellaneous Notes Plan of Care - Eydta Johnson RN - 02/08/2019 11:50 AM CDT Discussed pre-op instructions with Irma at the [facility]. Verbalizes understanding of them. Questions answered. documented [...] Wt 166 lb H&PPt l john at skilled nursing CCR in the [facility] Irma is main care leader Call Maryann an with discharge instructions postop [phone] Eleanor rangel l be transporting pt to and from detention and hospital. ESOPHAGOGASTRODUODENOSCOPY (EGD) 02/10/2019 7:36 AM CD T weight loss Special Needs Ht 5' 8.7 Wt 166 lb H&PPt l john at skilled nursing CCR in the [facility] Irma is main care leader Call Maryann an with discharge instructions postop [phone] Eleanor rangel l be transporting pt to and from detention and hospital. COLONOSCOPY Routine 02/10/2019 6:59 AM CDT Resul ts for this procedure are in the results sec tion. UPPER GI ENDOSCOPY Routine 02/10/2019 6:58 AM CDT Results for this procedure are in the results sec tion. documented in this encounter Results Surgical pathology exam (02/10/2019 8:06 AM CDT) Component Value Ref Test Analysis Performed At [facility] Range Method Time Signature Copath Report Patient Name: BETH MORALES MR#: [id number] Specimen #: [id number] Collected: 02/10/2019 Received: 02/10/2019 Reported: 02/13/2019 10:42 [...] of this testing was completed at the [facility], with the professional compo nent performed at the [facility], [address] [address] ??[phone] ([phone]) CPT Codes: A: 10966-MZ9 B: 84834-WO1 C: 24276-JX1 D: 80623-LE8 E: 95476-FP6 F: 18962-LS6 33287-AV3 H: 76504-XI8 COLLECTION SITE: Client: [facility] Location: [facility]OR (R) Specimen (Source) Anatomical Collection [...] 8:09 AM (specimen) / Unknown CDT Vikas Martin MD [facility] Performing Organization Address City/State/ZIP Code Phon e Number COPATH COLONOSCOPY (02/10/2019 6:59 AM CDT) [facility] Method Time Signature COLONOSCOPY [facility] RAD IOLOGY RESULTS Patient Name: Beth Morales ? Procedure Date: 02/10 6:59 AM ? Accou nt Number: [id number] Date of : 2000 ? Admit Type: [...] # [id number], ?[place] # 219, SN # [id number] was introduced through ?the anus and advanced to the ascending colon. ? Findings: ? Procedure Code(s): ? --- Professional --- ? 86373, 53, Colonoscopy, flexible; diagnostic, i ncluding collection of ? specimen(s) by brushing or washin g, when performed (separate procedure) CPT copyright 2017 [employer]. All rights reserved. The codes documented in this report are prelimin aaliyah and upon landfill gas collection system operator review may be revised to meet current compliance requirements. Signed electronically by Dr Martin Vikas Martin MD 02/10/2019 8:11:59 AM I was physically present for the entire viewing portion of t he exam. Vikas Martin MD Number of Addenda: 0 Note Initiated On: 02/10/2019 6:59 AM MRN: ?[id number] Procedure Date: ? 02/10/2019 6:59:03 AM Total [...] the physician , the nurse and the sap basis in the procedure room. Procedure: ??A colonoscope [...] Martin M.D. Director, Pediatric Inflammatory Bowel D [facility] Kennel Helper, Pediatric Gastroent erology [facility] Delivery Code #8952C [facility] [address] Vikas Martin MD PROCEDURES Performing Organization Address City/State/ZIP Code Phon e Number RADIOLOGY RESULTS UPPER GI ENDOSCOPY (02/10/2019 6:58 AM CDT) Component Value Ref Test Analysis Performed At [facility] Range Method Time Signature Upper GI [facility] RADIO LOGY Endoscopy RESULTS Patient Name: Beth Morales ? Procedure Date: 02/10 6:58 AM ? Accou nt Number: [id number] Date of : 2000 ? Admit Type: [...] # [id number], Endora # ?[id number], SN # [id number] was introduced through the mouth, ?and advanced to the third part of duodenum. ? Findings: ? Procedure Code(s): ? --- Professional --- ? 32826, Esophagogastroduodenoscopy, flexible, transora l; diagnostic, ? including collection of specimen(s) by brushing or wa shing, when ? performed (separate procedure) CPT copyright 2017 [employer]. All rights reserved. The codes documented in this report are prelimin aaliyah and upon landfill gas collection system operator review may be revised to meet current compliance requirements. Signed electronically by Dr Martin Vikas Martin MD 02/10/2019 8:19:19 AM I was physically present for the entire viewing portion of t he exam. Vikas Martin MD Number of Addenda: 0 Note Initiated On: 02/10/2019 6:58 AM MRN: ?[id number] Procedure Date: ? 02/10/2019 6:58:43 AM Total [...] the physician , the nurse and the sap basis in the procedure room. Procedure: the endoscope [...] see report in Provation. Vikas Martin M.D. [place], Pediatric Gastroent erology [facility] Vikas Martin MD PROCEDURES Performing Organization Address [...] as a short acting agent for ac qagan tayagungin pain control. If insufficient, or a longer [...] mg 0.3-0.5 mg, Intravenous, EVERY 10 MIN [place] N, Starting Wed02/10/19 at 0825, Until Wed02/10/19 [...] as of this encounter Care Teams Manager Forms Relationship Specialty Start Date End Date Queta Fritz MD PCP - General Pediatrics 12/19/15 05/27/[address] [phone] Queta Fritz MD Assigned PCP 03/04/14 04/12/21 [address] [place] [phone] documented as of this encounter
--- OUTSIDE RECORDS SUMMARY | 2022-04-23 23:45 | XMS_ITS | Encounter Summary ---
:2000 Author Organization [facility] Address [address] [place] [address] Care Team Providers Name Role Phone Queta Fritz MD Primary Care Provider [phone] Queta Fritz MD Unavailable [phone] Queta Fritz MD Unavailable [phone] Encounter Details Date Type Department Care Team Description 08/23/2018 Travel Social History Tobacco Use Types Packs/Day [...] do you attend sabianism or Never 2018 synagogue services? Do you [...] or slept in a snf (including now)? 

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
--- OUTSIDE RECORDS SUMMARY | 2022-04-23 23:45 | XMS_ITS | Encounter Summary ---
:2000 Author Organization [facility] Address [address] [place] [address] Care Team Providers Name Role Phone Queta Fritz MD Primary Care Provider [phone] Queta Fritz MD Unavailable [phone] Queta Fritz MD Unavailable [phone] Reason for Visit Reason Comments Knee Injury Encounter Details Date Type Department Care Team Description [facility]2018 [facility] Emergency PA-C subluxation, right, Dept EMERGENCY PHYSICIANS initial encounter [address] [place], [place] [address] [place], [address] [address] [place] [address] (Wo rk) Social History Tobacco Use Types [...] do you attend worship or Never 2018 gnosticist services? Do you [...] or slept in a fpc (including now)? 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 PATELLAR DISLOCATION/SUBLUXATION (LITHUANIAN)documented in this encounter Medications at Time of Discharge Medication Sig Dispensed Refills Start Date End Date Ergocalciferol (VITAMIN D) Take 50,000 Units 8 capsule 0 02/03/2019 15646 UNITS by mouth every 7 CAPSIndications: Vitamin D days deficiency levonorgestrel-ethinyl Take 1 tablet by 84 tablet 3 017 06/26/2020 estradiol (SEASONALE) mouth daily 0.15-0.03 MG per tabletIndications: Encounter for surveillance of contraceptive pills metFORMIN (GLUCOPHAGE) 500 Take 500 mg by 0 03/28/2020 MG tablet mouth 2 times daily For appetite suppression/ seraquel QUEtiapine ER (SEROQUEL Take 600 mg by 0 06/17/20 17 11/13/2019 XR) 300 MG 24 hr tablet mouth At Bedtime documented as of this encounter ED Notes Khadijah Nettles RN - 08/24/2018 1:47 AM CST AVS reviewed. GER CREDIT Khadijah Nettles RN - 08/23/2018 10:38 PM CST Pt presents via EMS for evaluation of right knee pain after bumping it on a bed railing, which resulted in a knee dislocation. Pt heard a popping sound. Knee is immobilized. Given 75 mcg fentanyl per EMS. Pt here with long-term staff Zoe. Evelia Thomas RN - 08/23/2018 10:37 PM CST Bed: [facility] Expected date: Expected time: Means of arrival: Ambulance Comments: A598. 18F Jeimy Baldwin PA-C - 08/23/2018 10:37 PM CST History Chief Complaint: Knee Injury HPI Mahi Faye is a 18 year old female who presents to the emergency department from her long-term via EMS for evaluation after injuring her right knee. Per report, the patient bumped her left knee against her bed railing this evening, injuring it. She has apparently dislocated this knee in the past, and today she endorses hearing a popping sound. She has since been unable to move her knee or ambulate, but to her pain. EMS was called by long-term staff, prompting her to the ED this evening. She was given 75 mcg of fentanyl en route with little improvement, as she continues to report pain and spasming. The patient is a poor historian and the mechanics of this injury are not clearly described. Allergies: No known drug allergies Medications: Seroquel Metformin Ergocalciferol Past Medical History: Mental health disorder Chromosomal abnormality Learning disability Anxiety Suicidal ideation Past Surgical History: Cystourethroscopy Family History: ALS Social History: The patient was accompanied to the ED by long-term staff. Smoking Status: Never Smokeless Tobacco: Never Alcohol Use: Never Marital Status: Single [1] Review of Systems Unable to perform ROS: Other Musculoskeletal: Positive for arthralgias, gait problem and myalgias. Negative for joint swelling. All other systems reviewed and are negative. Physical Exam Patient Vitals for the past 24 hrs: BP Temp Temp src Pulse Resp SpO2 08/24/18 0037 -- -- -- -- -- 100 % 08/23/18 2339 -- -- -- -- -- 100 % 08/23/18 2337 139/81 -- -- 87 -- -- 08/23/18 2246 (!) 162/92 98.9 ??F (37.2 ??C) Oral 89 16 100 % Physical Exam Constitutional: moderate distress due to pain. Anxious. Head: No external signs of trauma noted to head or face. Neck: Normal ROM. Cardiovascular: Normal rate, regular rhythm, and intact distal pulses. Respiratory: Effort normal. No respiratory distress. Lungs clear to auscultation bilaterally. GI: Soft. There is no tenderness. There is no rebound. Musculoskeletal: Right knee: no deformity appreciated. Mild swelling over anterior knee. Knee held in extension, no ROM due to pain. Tender over anterior knee. The remainder of the RLE is non-tender. Neurological: Alert and Oriented x 3. Speech normal. Moves all extremities equally. Sensation and strength intact in distal RLE. Psychiatric: Appropriate mood, affect, and behavior. Skin: Skin is warm and dry. Emergency Department Course Imaging: Radiology findings were communicated with the patient who voiced understanding of the findings. XR Right Knee 3 Views: IMPRESSION: There is no acute fracture. The patella is abnormally rotated in the femoral notch. The sunrise view is not optimal but the patella does not appear to be dislocated outside of the femoral notch Per radiology XR Right Knee 1/2 Views (repeat): IMPRESSION: No acute fracture or dislocation. Joint effusion As read by radiology Interventions: 2305 - Advil tablet 600 mg PO 0020 - Dilaudid injection 0.5 mg IV Emergency Department Course: Nursing notes and vitals reviewed. 2253: I performed an exam of the patient as documented above. 2355: Patient rechecked and updated. Patient continues to endorse significant pain, I am unable to perform a full exam at this time. 0020: Dilaudid administered for pain control. Patient rechecked and exam performed after patient wasable to pop her knee back into place and bend it on her own. Repeat x-ray ordered. 0128: Patient rechecked and updated. Findings and plan explained to the Patient. Patient discharged home with instructions regarding supportive care, medications, and reasons to return. The importance of close follow-up was reviewed. Impression & Plan Medical Decision Makin18 year old female presenting with right knee injury. She has history of previous patellar dislocation on this side and reports this feels similar. There is no clear deformity or displacement of the patella on exam, but she is not will to range the knee at all. Imaging negative for fracture, but notespatella to be abnormally rotated, but not clearly dislocated. I went back in to perform additional examination of the knee and patient then reports she felt a pop and that her knee felt significantlybetter. Shortly after this, she was able flex and extend the knee without difficulty. She is able toactively perform knee extension against resistance. She is all neurovascularly intact. Imaging after this showed improved patellar alignment, suggesting that initially there was some subluxation or dislocation. She feels significantly improved with normal knee exam at this time. She will be placed in a knee immobilizer and provided with crutches. Instructed to follow-up with orthopedics in 1 week. She was instructed to return to the ED for any new or worsening symptoms, including increased pain, numbness, weakness, or other concerns. Diagnosis: ICD-10-CM 1. Patellar subluxation, right, initial encounter S83.001A Disposition: discharged to home Jimena Walden 08/23/2018 [facility] EMERGENCY DEPARTMENT Jimena Reis am serving as a scribe at 10:53 PM on 08/23/2018 to document services personally performed by Jeimy Carranza PA-C based on my observations and the provider's statements to me. Jeimy Carranza PA-C 08/24/18 0144 GER CREDIT documented in this encounter Plan of Treatment Not on filedocumented as of this encounter Procedures Procedure Name Priority Date/Time Associated Diagnosis Comme nts XR KNEE RIGHT 1/2 STAT 08/24/2018 1:18 AM Resu lts for this VIEWS MANAGER CREDIT procedure are i n the results section. XR KNEE RIGHT 3 STAT 08/23/2018 11:39 PM Resul ts for this VIEWS MANAGER CREDIT procedure are i n the results section. documented in this encounter Results XR Knee Right 1/2 Views (08/24/2018 1:18 AM MANAGER CREDIT) Anatomical Region Laterality Modality Leg, Thigh, Knee Right Digital Radiography Specimen (Source) Anatomical Location Collection Method / Collectio n Time Received Time / Laterality Volume Impressions 08/24/2018 5:56 AM MANAGER CREDIT IMPRESSION: No acute fracture or dislocation. Joint effusion. JAVY WALTER MD Narrative 08/24/2018 5:56 AM MANAGER CREDIT XR KNEE RT 1 /2 VW ??08/24/2018 1:18 AM HISTORY: Post reduction. COMPARISON: 08/23/2018. Procedure Note Javy Walter MD - 08/24/2018Form atting of this note might be different from the original. XR KNEE RT 1 /2 VW 08/24/2018 1:18 AM HISTORY: Post reduction. COMPARISON: 08/23/2018. IMPRESSION: No acute fracture or disloca tion. Joint effusion. JAVY WALTER MD Jeimy Carranza PA-C [facility] ORDER [place] XR Knee Right 3 Views (08/23/2018 11:39 PM MANAGER CREDIT) Anatomical Region Laterality Modality Thigh, Knee, Leg Right Digital Radiography Specimen (Source) Anatomical Location Collection Method / Collectio n Time Received Time / Laterality Volume Impressions 08/24/2018 5:56 AM MANAGER CREDIT IMPRESSION: There is no acute fracture. The patella is abnormally rotated in the femoral notch. JAVY WALTER MD Narrative 08/24/2018 5:56 AM MANAGER CREDIT XR KNEE RT 3 VW ??08/23/2018 11:39 PM HISTORY: Pain. COMPARISON: None. Procedure Note Javy Walter MD - 08/24/2018Form atting of this note might be different from the original. XR KNEE RT 3 VW 08/23/2018 11:39 PM HISTORY: Pain. COMPARISON: None. IMPRESSION: There is no acute fracture. The patella is abnormally rotated in the femoral notch. JAVY WALTER MD Jeimy [facility] ORDER [place]INDSAY documented in this encounter Visit Diagnoses Diagnosis Patellar subluxation, right, initial enc ounter documented in this encounter Administered Medications Inactive Administered Medications - up to 3 most recent administrations Medication Order MAR Action Action Date Dose Rate Site HYDROmorphone (PF) (DILAUDID) Given 08/24/2018 12:20 AM MANAGER CREDIT 0.5 mg injection 0.5 mg 0.5 mg, Intravenous, ONCE, On Wed08/24/18 at 0011, For 1 dose, For ordered IV doses 0.1-4 mg give IV Push undiluted. Administer each 2mg over 2-5 minutes. ibuprofen (ADVIL/MOTRIN) tablet 600 mg Given 08/23/2018 11:05 PM MANAGER CREDIT 600 mg 600 mg, Oral, ONCE, On Wed08/23/18 at 2257, For 1 dose documented in this encounter Active and Recently Administered Medications Times are shown in MANAGER CREDIT. Scheduled Medication Order 08/22/2018 08/23/2018 08/24/2018 HYDROmorphone (PF) (DILAUDID) injection 0.5 mg (COMPLETED) 0020 (Given - Provider: Khadijah Nettles, RN) 0.5 mg, Intravenous, ONCE, 1 dose, Wed at 0011, For ordered IV doses 0.1- 4 mg give IV Push undiluted. Administer each 2mg over 2-5 minutes. ibuprofen (ADVIL/MOTRIN) tablet 600 mg (COMPLETED) 2305 (Given - Provider: Khadijah Nettles, JAZMYNE) 600 mg, Oral, ONCE, 08/23/18 at 2257, For 1 dose documented in this encounter Care Teams Piano Sounding Board Matcher Relationship Specialty Start Date End Date Queta Fritz MD PCP - General Pediatrics 12/19/15 05/27/20 [address] [id number] Queta Fritz MD PCP - Assigned PCP 03/04/14 09/20/18 [address] [place] [address] [phone] Queta Fritz MD Assigned PCP 03/04/14 04/12/21 [address] [place] [address] [phone] documented as of this encounter
--- OUTSIDE RECORDS SUMMARY | 2022-04-23 23:45 | XMS_ITS | Encounter Summary ---
:2002 Author Organization [facility] Address [address] [place] [address] Care Team Providers Name Role Phone Queta Fritz MD Primary Care Provider [phone] Queta Fritz MD Unavailable [phone] Reason for Visit Reason Comments Chest Pain Encounter Details Date Type Department Care Team Description 12/07/2018 Office Visit [facility] Yareli David [facility] Stephanie Mckeon MD without hemorrhage, [address] [facility] unspe cified gastritis [facility] type (Primary Dx) [address] [place] [address] [place] [address] [phone] Social History Tobacco Use Types Packs/Day Years [...] do you attend caodaism or Never 2018 religion services? 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 (Girls, 2-20 Years) documented in this encounter Patient Instructions Patient InstructionsRadha Hobbs MD - 12/07/2018 3:00 PM CDT Images from the original note were not included. Thanks for coming to clinic today. Your symptoms sound like they are most likely related to reflux. We will have you start taking ranitidine twice a day for the next two weeks to see if this helps yoursymptoms. I would also encourage using your anxiety PRN to see if that can help as well. 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 Patient Education Tips to Control Acid Reflux To control acid reflux, you???ll need to make some basic diet and lifestyle changes. The simple steps outlined below may be all you???ll need to ease discomfort. Watch what you eat ?? Avoid fatty foods and spicy foods. ?? Eat fewer acidic foods, such as citrus and tomato-based foods. These can increase symptoms. ?? Limit drinking alcohol, caffeine, and fizzy beverages. All increase acid reflux. ?? Try limiting chocolate, peppermint, and spearmint.??These can worsen acid reflux in some people. Watch when you eat ?? Avoid lying down for??3??hours after eating. ?? Do not snack before going to bed. Raise your head Raising your head and upper body by 4 to 6 inches??helps limit reflux when you???re lying down. Put blocks under the head of your bed frame to raise it. Other changes ?? Lose weight, if you need to ?? Don???t exercise near bedtime ?? Limit aspirin and ibuprofen ?? Stop smoking Date Last Reviewed: 01/17/2016 ?? [id number] [employer]. [address] [place] [address], [place] [address]. All rights reserved. This information is not intended as a substitute for professional medical care. Always follow your healthcare professional's instructions. documented in this encounter Progress Notes Yareli David MD - 12/07/2018 3:00 PM CDT Subjective Mahi Faye is a 18 year old female who presents to clinic today for the following health issues: HPI Chest Pain ?? Duration: Patient presents with chest pain x5 days with anxiety at first ?? Description (location/character/radiation): Pain has been localized to the chest over the past couple of days ?? Intensity: On/off, depends on the day ?? Accompanying signs and symptoms: Patient denies anxiety, states that she feels as if the pain extends to throat ?? History (similar episodes/previous evaluation): None ?? Precipitating or alleviating factors: None ?? Therapies tried and outcome: Deep breaths, drinking water Mahi notes that on Wednesday she was having anxiety about her boyfriend and dad. The anxiety improved, however since that time she has noticed that it has been hard to catch her breath and she has been noticing epigastric pain that has been spreading up her chest. She describes it as spreading to the lungs, however makes a midline motion to describe the path of the pain. The pain has continued since Wednesday and has perhaps gotten a little worse. She describes the pain mostly as a pressure, deniesburning or sharp pain. She tried TUMS today which she did not find particularly helpful. She also tried taking deep breaths and drinking water which weren't particularly helpful. She states that the pain is also accompanied by feeling faint but denies loss of consciousness or headache. She denies cough, congestion or other infectious symptoms. No constipation, nausea or vomiting. She presents to clinic with one of the long term workers who states that he was with her on Wednesday,Wednesday and Wednesday and he hadn't heard her complaining of these symptoms. Nor had he noticed a change from her baseline. Patient Active Problem List Diagnosis ??? Chromosomal abnormality ??? Learning disability ??? Anxiety ??? Insomnia ??? Aggression with talk of suicide/homicide ??? Suicidal ideation ??? Mental health disorder ??? Mild anemia Past Surgical History: Procedure Laterality Date ??? CYSTOURETHROSCOPY 05/04/2005 Cysto and urethral dilation. ??? INCISION AND DRAINAGE TONSIL, COMBINED 2013 under general anesthesia Social History Tobacco Use ??? Smoking status: Never Smoker ??? Smokeless tobacco: Never Used ??? Tobacco comment: no smokers in household Substance Use Topics ??? Alcohol use: No Frequency: Never Drinks per session: Patient refused Binge frequency: Never Family History Problem Relation Age of Onset ??? Genetic Disorder Father ALS ??? Cancer Paternal Grandfather lung ??? Anesthesia Reaction Other Negative Current Outpatient Medications Medication Sig Dispense Refill ??? ranitidine (ZANTAC) 150 MG tablet Take 1 tablet (150 mg) by mouth 2 times daily for 14 days 28 tablet 0 ??? acetaminophen (TYLENOL) 500 MG tablet Take 1-2 tablets (500-1,000 mg) by mouth every 4 hours as needed for pain 100 tablet 11 ??? Ergocalciferol (VITAMIN D) 65084 UNITS CAPS Take 50,000 Units by mouth every 7 days 8 capsule 0 ??? levonorgestrel-ethinyl estradiol (SEASONALE) 0.15-0.03 MG per tablet Take 1 tablet by mouth daily 84 tablet 3 ??? METFORMIN HCL PO Take 500 mg by mouth 2 times daily ??? QUEtiapine ER (SEROQUEL XR) 300 MG 24 hr tablet Take 600 mg by mouth Allergies Allergen Reactions ??? Nkda [No Known Drug Allergies] ??? Seasonal Allergies Reviewed and updated as needed this visit by Provider Review of Systems ROS COMP: Constitutional, HEENT, cardiovascular, pulmonary, gi and gu systems are negative, except as otherwise noted. Objective BP 132/70 (BP Location: Right arm, Patient Position: Sitting, Cuff Size: Adult Regular) Pulse 96 Temp 98.5 ??F (36.9 ??C) (Tympanic) Resp 16 Ht 1.681 m (5' 6.2) Wt 78.1 kg (172 lb 1.6 oz) SpO2 99% BMI 27.61 kg/m?? Body mass index is 27.61 kg/m??. Physical Exam GENERAL: Well appearing adolescent in no acute distress. Conversant. EYES: Eyes grossly normal to inspection, conjunctivae and sclerae normal RESP: lungs clear to auscultation - no rales, rhonchi or wheezes. Breathing comfortably on room air and speaking in full sentences, CV: regular rate and rhythm, normal S1 S2, no S3 or S4, no murmur, click or rub ABDOMEN: soft, nontender, no hepatosplenomegaly, no masses and bowel sounds normal MS: right knee with brace in place and using a crutch for ambulation, no other deformities noted SKIN: no suspicious lesions or rashes NEURO: Grossly normal neurologic exam without focal deficits PSYCH: affect bright, very talkative Diagnostic Test Results: none Assessment & Plan 1. Acute gastritis without hemorrhage, unspecified gastritis type Mahi demonstrates that the pain starts in the esophagus and travels midline to her throat. However she has not noticed any relationship to food or time of day, nor does she describe a foul taste in her mouth. Will trial ranitidine to see if this improves her symptoms if this is the result of gastritis or reflux. I have very low suspicion for a pulmonary process as she is saturating well on room air and not tachycardic. She is well appearing on exam and despite endorsing ongoing shortness of breath appears to be breathing comfortably and speaking in prolonged sentences. - ranitidine (ZANTAC) 150 MG tablet; Take 1 tablet (150 mg) by mouth 2 times daily for 14 days Dispense: 28 tablet; Refill: 0 BMI: Estimated body mass index is 27.61 kg/m?? as calculated from the following: Height as of this encounter: 1.681 m (5' 6.2). Weight as of this encounter: 78.1 kg (172 lb 1.6 oz). Weight management plan: She is currently on metformin to assist with radha management and has seen agreat improvement in her weight trend See Patient Instructions Return if symptoms worsen or fail to improve. Kevin Hobbs MD [facility] I have seen and examined the patient, discussed with the resident and agree with the history, physical and plan as documented above. Yareli David MD Internal Medicine - Pediatrics documented in this encounter Plan of Treatment Not on filedocumented as of this encounter Visit Diagnoses Diagnosis Acute gastritis without hemorrhage, unsp ecified gastritis type - Primary documented in this encounter Additional Health Concerns Assessment Noted Time PHQ-9 Depression Total Score: 8 12/07/2018 3:58 PM CDT documented as of this encounter Care Teams Tassel Clipper Relationship Specialty Start Date End Date Queta Fritz MD PCP - General Pediatrics 12/19/15 05/27/20 [address] [place] [address] [phone] Queta Fritz MD Assigned PCP 03/04/14 04/12/21 [address] [place] [address] [phone] documented as of this encounter
--- OUTSIDE RECORDS SUMMARY | 2022-04-23 23:46 | XMS_ITS | Encounter Summary ---
:2002 Author Organization [facility] Address [address] [place] [address]. 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
--- OUTSIDE RECORDS SUMMARY | 2022-04-23 23:46 | XMS_ITS | Encounter Summary ---
:2002 Author Organization [place] Address [address] [place] [address] Care Team Providers Name Role Phone Queta Fritz MD Primary Care Provider Queta Fritz MD Unavailable [phone] Queta Fritz MD Unavailable [phone] Reason for Visit Reason Comments Foot Problems left foot great toe ingrown on the medial side [id number] Consultation - Closed Specialty Diagnoses / Procedures Referred By Contact Refer red To Contact Diagnoses Ingrown nail Queta Fritz M [facility] [address] [facility] [address] [address] [place] [address] [place] [address] Phone: Fax: Referral ID Status Reason Start Date Expiration Date Visits Requ ested Visits Authorized [id number] Closed 06/22/2017 06/22/2018 1 1 Encounter Details Date Type Department Care Team Description 07/13/2017 Office Visit M [facility] Marlena Read, Left fo ot pain (Primary Dx); [facility] [place] DPM, Podiatry/Foot Ingrown nail of great toe of left foot [address] [facility] [place] [address] [place] [address] [address] [place] [address] (Wo rk) Social History Tobacco Use Types [...] do you attend pentecostal or Never 2018 scientologist services? 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 documented as of this encounter Last Filed Vital Signs Vital Sign Reading Time Taken Comments Blood Pressure 136/78 07/13/2017 8:13 AM BUSINESS MANAGEMENT INTERN Pulse - - Temperature - - Respiratory Rate - - Oxygen Saturation - - Inhaled Oxygen Concentration - - Weight 88.5 kg (195 lb) 07/13/2017 8:13 AM BUSINESS MANAGEMENT INTERN Height 170.2 cm (5' 7) 07/13/2017 8:13 AM BUSINESS MANAGEMENT INTERN Body Mass Index 30.54 07/13/2017 8:13 AM BUSINESS MANAGEMENT INTERN Body Mass Index Percentile 96.94 % 07/13/2017 8:13 AM CS T Growth Chart: [facility] (Girls, 2-20 Years) documented in this encounter Patient Instructions Patient InstructionsMarcelinaAlber beckman - 07/13/2017 8:15 AM CST Thank you for choosing [facility]! DR. READ'S CLINIC LOCATIONS: WEDNESDAY AM - [place] WEDNESDAY - [place] [address] [facility] [address] [place] [address] [place], [place] [id number] / FX [id number] / FX [id number] WEDNESDAY - Wednesday PM - [place] [address] [address] [place] [address] [place] [address] [place] [address] / FX [id number] / FX [id number] SCHEDULE SURGERY: [phone] APPOINTMENTS: [phone] BILLING QUESTIONS: [phone] INGROWN TOENAILS When a toenail is ingrown, it is curved and grows into the skin, usually at the nail borders (the sides of the nail). This ???digging in?? of the nail irritates the skin, often creating pain, redness,swelling, and warmth in the toe. If an ingrown nail causes a break in the skin, bacteria may enter and cause an infection in the area, which is often marked by drainage and a foul odor. However, even if the toe isn???t painful, red, swollen, or warm, a nail that curves downward into the skin can progress to an infection. CAUSES: Heredity: In many people, the tendency for ingrown toenails is inherited. Trauma: Sometimes an ingrown toenail is the result of trauma, such as stubbing your toe, having an object fall on your toe, or engaging in activities that involve repeated pressure on the toes, such askicking or running. Improper Trimming: The most common cause of ingrown toenails is cutting your nails too short. This encourages the skin next to the nail to fold over the nail. Improperly Sized Footwear: Ingrown toenails can result from wearing socks and shoes that are tight or short. Nail Conditions: Ingrown toenails can be caused by nail problems, such as fungal infections or losing a nail due to trauma. TREATMENT: Sometimes initial treatment for ingrown toenails can be safely performed at home. However, home treatment is strongly discouraged if an infection is suspected, or for those who have medical conditions that put feet at high risk, such as diabetes, nerve damage in the foot, or poor circulation. Home care: If you don???t have an infection or any of the above medical conditions, you can soak your foot in room-temperature water (adding Epsom???s salt may be recommended by your doctor), and gently massage the side of the nail fold to help reduce the inflammation. Avoid attempting ???bathroom surgery.?? Repeated cutting of the nail can cause the condition to worsen over time. If your symptoms fail to improve, it???s time to see a foot and ankle surgeon. Physician care: After examining the toe, the foot and ankle surgeon will select the treatment best suited for you. If an infection is present, an oral antibiotic may be prescribed. Sometimes a minor surgical procedure, often performed in the office, will ease the pain and remove the offending nail. After applying a local anesthetic, the doctor removes part of the nail???s side border. Some nails may become ingrown again, requiring removal of the nail root. Following the nail procedure, a light bandage will be applied. Most people experience very little pain after surgery and may resume normal activity the next day. If your surgeon has prescribed an oral antibiotic, be sure to take all the medication, even if your symptoms have improved. PREVENTION: Proper Trimming: Cut toenails in a fairly straight line, and don???t cut them too short. You should be able to get your fingernail under the sides and end of the nail. Well-fitting Footwear: Don???t wear shoes that are short or tight in the toe area. Avoid shoes that are loose, because they too cause pressure on the toes, especially when running or walking briskly. INGROWN TOENAIL REMOVAL AFTERCARE ?? Go directly home and elevate the affected foot on one or two pillows for the remainder of the day/evening if possible. Your toe may stay numb anywhere from 2-8 hours. ?? Take Tylenol, ibuprofen or another anti-inflammatory as needed for pain. ?? Take antibiotic if that has been prescribed. Finish the entire prescribed antibiotic even if yoursymptoms have improved. ?? The evening of the procedure, soak/wash the affected area in warm water (you may add Epsom salt) for 5 to 10 minutes. Do this twice a day for 2-4 weeks (6-8 weeks if you had phenol) (you may count showering/bathing as one soak). After soaks, pat the area dry and then allow to airdry for a few minutes. Apply antibiotic ointment to the area and cover with 2 X 2 gauze and paper tape or band-aid. ?? You may pursue everyday activities as tolerated with either an open toe shoe or cut-out shoe as needed or you may wear regular shoes if no pain is noted. ?? Watch for any signs and symptoms of infection such as: redness, red streaks going up the foot/leg, swelling, pus or foul odor. Those that have had the phenol procedure, the toe will drain longer andwill look like it is infected because it is a chemical burn. ?? Please call with questions. Body Mass Index (BMI) Many things can cause foot and ankle problems. Foot structure, activity level, foot mechanics and injuries are common causes of pain. One very important issue that often goes unmentioned, is body weight. Extra weight can cause increased stress on muscles, ligaments, bones and tendons. Sometimes just a few extra pounds is all it takesto put one over her/his threshold. Without reducing that stress, it can be difficult to alleviate pain. Some people are uncomfortable addressing this issue, but we feel it is important for you to thinkabout it. As Foot & Ankle specialists, our job is addressing the lower extremity problem and possible causes. Regarding extra body weight, we encourage patients to discuss diet and weight management plans with their primary care doctors. It is this team approach that gives you the best opportunityfor pain relief and getting you back on your feet. NESS MANAGEMENT INTERN documented in this encounter Progress Notes Marlena Read DPM, Podiatry/Foot and Ankle Surgery - 07/13/2017 8:15 AM BUSINESS MANAGEMENT INTERN PATIENT HISTORY: Dr. Fritz requested I see this patient for their foot issue. Mahi Faye is a 17 year old female who presents to clinic for pain to left great toenail. No injury. Pain is 6/10. Throbbing pain. Has been limping. Worse in shoes. Would like to know what can be done for it. Review of Systems: Patient denies fever, chills, rash, wound, stiffness, numbness, weakness, heart burn, blood in stool, chest pain with activity, calf pain when walking, shortness of breath with activity, chronic cough, easy bleeding/bruising, swelling of ankles, excessive thirst, fatigue, depression, anxiety. Patient admits to limping. PAST MEDICAL HISTORY: Past Medical History: Diagnosis Date ??? 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 CONGEN URETHRAL STENOSIS 12/16/2005 ??? 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 Tonsillar abscess, S/P drainage 07/16/2014 PAST SURGICAL HISTORY: Past Surgical History: Procedure Laterality Date ??? HC CYSTOURETHROSCOPY 05/04/2005 Cysto and urethral dilation. ??? INCISION AND DRAINAGE TONSIL, COMBINED 2013 under general anesthesia MEDICATIONS: Current Outpatient Prescriptions: ??? ferrous gluconate (FERGON) 324 (38 FE) MG tablet, Take 1 tablet (324 mg) by mouth daily (with breakfast), Disp: 100 tablet, Rfl: 1 ??? levonorgestrel-ethinyl estradiol (SEASONALE) 0.15-0.03 MG per tablet, Take 1 tablet by mouth daily, Disp: 84 tablet, Rfl: 3 ??? SERTRALINE HCL PO, Take 100 mg by mouth daily, Disp: , Rfl: ??? QUETIAPINE FUMARATE PO, , Disp: , Rfl: ??? desogestrel-ethinyl estradiol (APRI) 0.15-30 MG-MCG per tablet, Take 1 tablet by mouth daily Discard placebo pills for two of three packets for continuous use, Disp: 84 tablet, Rfl: 1 ??? guanFACINE (INTUNIV) 2 MG TB24 24 hr tablet, Take 2 mg by mouth At Bedtime, Disp: , Rfl: 0 ??? OLANZapine (ZYPREXA) 5 MG tablet, TAKE 1 TABLET BY MOUTH EVERY 8 HOURS NEEDED, Disp: , Rfl: 0 ??? Ergocalciferol (VITAMIN D) 96775 UNITS CAPS, Take 50,000 Units by mouth every 7 days, Disp: 8 capsule, Rfl: 0 ALLERGIES: Allergies Allergen Reactions ??? Nkda [No Known Drug Allergies] ??? Seasonal Allergies SOCIAL HISTORY: Social History Social History ??? Marital status: Single Spouse name: N/A ??? Number of children: N/A ??? Years of education: N/A Occupational History ??? Not on file. Social History Main Topics ??? Smoking status: Never Smoker ??? Smokeless tobacco: Never Used Comment: no smokers in household ??? Alcohol use No ??? Drug use: No ??? Sexual activity: No Other Topics Concern ??? Not on file Social History Narrative FAMILY HISTORY: Family History Problem Relation Age of Onset ??? Genetic Disorder Father ALS ??? CANCER Paternal Grandfather lung ??? Anesthesia Reaction Other Negative EXAM:Vitals: Ht 5' 7 (1.702 m) Wt 195 lb (88.5 kg) BMI 30.54 kg/m2 BMI= Body mass index is 30.54 kg/(m^2). General appearance: Patient is alert and fully cooperative with history & exam. No sign of distress is noted during the visit. Psychiatric: Affect is pleasant & appropriate. Patient appears motivated to improve health. Respiratory: Breathing is regular & unlabored while sitting. HEENT: Hearing is intact to spoken word. Speech is clear. No gross evidence of visual impairment that would impact ambulation. Dermatologic: medial border of left great toenail is incurvated. Pain on palpation and localized redness. Vascular: DP & PT pulses are intact & regular bilaterally. No significant edema or varicosities noted. CFT and skin temperature is normal to both lower extremities. Neurologic: Lower extremity sensation is intact to light touch. No evidence of weakness or contracture in the lower extremities. No evidence of neuropathy. Musculoskeletal: Patient is ambulatory without assistive device or brace. No gross ankle deformity noted. No foot or ankle joint effusion is noted. ASSESSMENT: Left foot pain Ingrown nail of great toe of left foot PLAN: Reviewed patient's chart in [facility]. The potential causes and nature of an ingrown toenail were discussed with the patient. We reviewed the natural history/prognosis of the condition and potential risks if no treatment is provided. Treatment options discussed included conservative management (oral antibiotics, soaking of foot, adequate width shoes) as well as surgical management (partial or total nail removal). The pros and cons of both forms of treatment were reviewed. After thorough discussion and answering all questions, the patient elected to have border removed. Will soak 2x a day for 2 weeks. Apply antibiotic and bandage. Procedure: After verbal consent, the left big toe was anesthetized with 5cc's of 1% lidocaine plain.A tourniquet was applied to the toe. The medial border was then raised from the nail bed and then cut the length of the nail. The offending nail border was then removed. Bacitracin was applied to the nail bed. The tourniquet was removed. Bandage was applied to the toe. The patient tolerated the procedure and anesthesia well. Marlena Read DPM, Podiatry/Foot and Ankle Surgery Weight management plan: Patient was referred to their PCP to discuss a diet and exercise plan. NESS MANAGEMENT INTERN documented in this encounter Nursing Notes Alber Orellana - 07/13/2017 8:15 AM CST Chief Complaint Patient presents with ??? Foot Problems left foot great toe ingrown on the medial side [id number] Initial BP 136/78 Ht 5' 7 (1.702 m) Wt 195 lb (88.5 kg) BMI 30.54 kg/m2 Estimated body mass index is 30.54 kg/(m^2) as calculated from the following: Height as of this encounter: 5' 7 (1.702 m). Weight as of this encounter: 195 lb (88.5 kg). Medication Reconciliation: complete Alber Orellana MA NESS MANAGEMENT INTERN documented in this encounter Plan of Treatment Not on filedocumented as of this encounter Procedures Procedure Name Priority Date/Time Associated Diagnosis Comme nts HC REMOVAL OF NAIL Routine 07/13/2017 8:38 AM BUSINESS MANAGEMENT INTERN Left f oot pain PLATE SIMPLE SINGLE Ingrown nail of great toe of left foot documented in this encounter Visit Diagnoses Diagnosis Left foot pain - Primary Pain in limb Ingrown nail of great toe of left foot documented in this encounter Care Teams Tree Killer Relationship Specialty Start Date End Date Queta Fritz MD PCP - General Pediatrics 12/19/15 05/27/20 [address] [place] [address] Queta Fritz MD PCP - Assigned PCP 03/04/14 09/20/18 [address] [place] [address] Queta Fritz MD Assigned PCP 03/04/14 04/12/21 [address] [place] [address] documented as of this encounter
--- OUTSIDE RECORDS SUMMARY | 2022-04-23 23:46 | XMS_ITS | Encounter Summary ---
:2002 Author Organization [place] Address [address] [place] [address] Care Team Providers Name Role Phone Queta Fritz MD Primary Care Provider [phone] Queta Fritz MD Unavailable [phone] Queta Fritz MD Unavailable [phone] Reason for Visit Reason Onset Date Comments Forms 05/11/2018 health care summary Encounter Details Date Type Department Care Team Description 05/11/2018 Telephone M [facility] Queta Fritz Forms (health care Clinic Krystle De Jesus MD summary) [address] [place], [place] [address] [place] [address] [phone] (Wo rk) Social History Tobacco Use Types [...] do you attend spiritism or Never 2018 confucianism services? Do you [...] or slept in a intermediate (including now)? 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 Copy sent to abstraction Telephone Encounter - Renny Acosta MD - 05/13/2018 9:15 PM CDT Form completed. Please fax. Accompanying letter states needs SOL Telephone Encounter - Leti Holder - 05/11/2018 12:17 PM CDT health care summary form in Dr Acosta's basket to complete for Dr Fritz Fax to [phone] documented in this encounter Plan of Treatment Not on filedocumented as of this encounter Visit Diagnoses Not on filedocumented in this encounter Care Teams Felt Cutter Relationship Specialty Start Date End Date Queta Fritz MD PCP - General Pediatrics 12/19/15 05/27/20 [address] [place] [address] Queta Fritz MD PCP - Assigned PCP 03/04/14 09/20/18 [address] [place] [address] Queta Fritz MD Assigned PCP 03/04/14 04/12/21 [address] [place] [address] documented as of this encounter
--- OUTSIDE RECORDS SUMMARY | 2022-04-23 23:46 | XMS_ITS | Encounter Summary ---
:2002 Author Organization [place] Address [address] [place] [address] Care Team Providers Name Role Phone Queta Fritz MD Primary Care Provider [phone] Queta Fritz MD Unavailable [phone] Queta Fritz MD Unavailable [phone] Reason for Visit Reason Onset Date Comments Refill Request 06/23/2017 birthcontrol med Medication Question 06/23/2017 iron 325mg Encounter Details Date Type Department Care Team Description 06/23/2017 Refill M [facility] Queta Fritzil l Request Clinic Krystle De Jesus MD (birthcontrol med); [address] Medication Question [place], [place] [address] (iron 325mg) [address] [place] [address] (Wo rk) Social History Tobacco [...] do you attend mandaen or Never 2018 anabaptism services? Do you belong to any clubs [...] or slept in a residential (including now)? 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 Verbalized understanding. TH MACHINE TENDER Telephone Encounter - Queta Fritz MD - 06/26/2017 7:10 PM WREATH MACHINE TENDER Sorry I missed that. Done now. TH MACHINE TENDER Telephone Encounter - Iris Hargrove RN - 06/24/2017 7:44 PM CST I do not see an iron supplement in hx for me to pend. Please order. TH MACHINE TENDER Telephone Encounter - Queta Fritz MD - 06/24/2017 6:32 PM WREATH MACHINE TENDER Yes, Mahi should have iron supplement TH MACHINE TENDER Telephone Encounter - Audelia Mckeon RN - 06/24/2017 12:49 PM CST Custodialimport coordinator also needs this information. OK to just send rx's to pharmacy. No need to call Rachel. TH MACHINE TENDER Telephone Encounter - Sarai Hanna, JAZMYNE - 06/23/2017 8:42 AM CST Mom calling back. Asking if pt should still be taking Iron 325mg daily? If so, please send rx to [facility]. Please advise, thanks. TH MACHINE TENDER Telephone Encounter - Sarai Hanna RN - 06/23/2017 8:27 AM CST Pt's mother calling. Pt is currently in [facility] intermediate and needs a refill on control med. Was switched to Quasense while in [facility]. Last fill on Apri was 01-16-17 #84 tabs with 1 refill. Last OV 02-01-17--[facility] Please advise, thanks. TH MACHINE TENDER documented in this encounter Plan of Treatment Not on filedocumented as of this encounter Visit Diagnoses Diagnosis Encounter for surveillance of contracept eunice pills - Primary Surveillance of previously prescribed co ntraceptive pill Low iron stores Other abnormal blood chemistry documented in this encounter Care Teams Machine Sand Mixer Relationship Specialty Start Date End Date Queta Fritz MD PCP - General Pediatrics 12/19/15 05/27/20 [address] [place] [address] Queta Fritz MD PCP - Assigned PCP 03/04/14 09/20/18 [address] [place] [id number] Queta Fritz MD Assigned PCP 03/04/14 04/12/21 [address] [place] [address] documented as of this encounter
--- OUTSIDE RECORDS SUMMARY | 2022-04-23 23:46 | XMS_ITS | Encounter Summary ---
:2002 Author Organization [place] Address [address] [place] [address] Care Team Providers Name Role Phone Queta Fritz MD Primary Care Provider [phone] Queta Fritz MD Unavailable [phone] Queta Fritz MD Unavailable [phone] Reason for Visit Reason Onset Date Comments Patient Request 08/10/2018 when to re-check iro n Encounter Details Date Type Department Care Team Description 08/10/2018 Telephone [facility] Queta Fritz nt Request (when Clinic Krystle De Jesus MD to re-check iron) [address] [place], [place] [address] [place] [address] (Wo rk) Social History Tobacco [...] do you attend jainism or Never 2018 sikhism services? 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 When should patient have her iron rechecked? Please place future lab orders. Please advise, thanks. STITCH COAT JOINER Telephone Encounter - Abimbola Whitehead - 08/10/2018 2:26 PM CST Reason for Call: Other call back Detailed comments: Dr. Fritz wanted pt. To come in and have iron recheck. When should she get thisdone? Phone Number Patient can be reached at: Home number on file [phone] (home) Best Time: pat Can we leave a detailed message on this number? YES Call taken on 08/10/2018 at 2:27 PM by Abimbola Whitehead STITCH COAT JOINER documented in this encounter Plan of Treatment Not on filedocumented as of this encounter Visit Diagnoses Not on filedocumented in this encounter Care Teams Field Specialist Relationship Specialty Start Date End Date Queta Fritz MD PCP - General Pediatrics 12/19/15 05/27/20 [address] [place] [address] Queta Fritz MD PCP - Assigned PCP 03/04/14 09/20/18 [address] [place] [address] Queta Fritz MD Assigned PCP 03/04/14 04/12/21 [address] [address] documented as of this encounter
--- OUTSIDE RECORDS SUMMARY | 2022-04-23 23:46 | XMS_ITS | Encounter Summary ---
:2000 Author Organization [facility] Address [address] [place] [id number] Care Team Providers Name Role Phone Queta Fritz MD Primary Care Provider Queta Fritz MD Unavailable [phone] Queta Fritz MD Unavailable [phone] Reason for Referral Consultation - Closed Specialty Diagnoses / Procedures Referred By Contact Refer red To Contact Diagnoses Queta Hugo M [facility] MD SAM BARNARD [address] [address] [place] [address] [place] [address] Phone: Fax: Referral ID Status Reason Start Date Expiration Date Visits Requ ested Visits Authorized [id number] Closed 06/22/2017 06/22/2018 1 1 GER UNIX Reason for Visit Reason Comments Infection Patient here for infection o n Lt big toe for 2days now Encounter Details Date Type Department Care Team Description 06/22/2017 Office Visit [facility] Queta Fritz wn nail (Primary Clinic Krystle De Jesus MD Dx) [address] [place] [address] [place] [id number] (Wo rk) Social History Tobacco Use Types [...] do you attend orthodox or Never 2018 holiness services? Do you [...] or slept in a usp (including now)? Sex Assigned at Date Recorded Female 09/04/2021 9:00 PM MANAGER UNIX documented as of this encounter Last Filed Vital Signs Vital Sign Reading Time Taken Comments Blood Pressure 142/77 06/22/2017 4:50 PM MANAGER UNIX Pulse 100 06/22/2017 4:50 PM MANAGER UNIX Temperature 36.5 ??C (97.7 ??F) 06/22/2017 4:50 PM MANAGER UNIX Respiratory Rate - - Oxygen Saturation - - Inhaled Oxygen Concentration - - Weight 88.5 kg (195 lb) 06/22/2017 4:50 PM MANAGER UNIX Height 170.2 cm (5' 7) 06/22/2017 4:50 PM MANAGER UNIX Body Mass Index 30.54 06/22/2017 4:50 PM MANAGER UNIX Body Mass Index Percentile 96.97 % 06/22/2017 4:50 PM CS T Growth Chart: [facility] (Girls, 2-20 Years) documented in this encounter Patient Instructions Patient InstructionsQueta Fritz MD - 06/22/2017 5:05 PM MANAGER UNIX Images from the original note were not included. Ingrown Toenail, Not Infected (Home Treatment) An ingrown toenail occurs when the nail grows sideways into the skin next to the nail. This can cause pain, especially when wearing tight shoes. It can also lead to an infection with redness, swelling,and pus drainage. Most people respond to the treatments described here. But sometimes surgery is needed. The big toe is most often affected.?? The most common cause of an ingrown toenail is trimming your nails wrong. Most people trim the nailstoo close to the skin and try to round the nail too tightly around the shape of the toe. When you dothis, the nail can grow into the skin of your toe.??It is safer to trim the nail ending in a straight line rather than a curve. Home care The following guidelines will help you care for your toenail at home: ?? Soak the painful toe in warm water 3 to 4 times each day, for 10 to 20 minutes each time. Adding Epsom salt is recommended by your healthcare provider. Wash the entire foot with an antibacterial soap. Then keep it dry. ?? If there is redness or swelling around the toenail, apply an antibiotic ointment 3 times a day. ?? Wear shoes that don???t put pressure on the toes, such as a sandal or open shoe. Closed shoes should be big enough in the toes so that there is no pressure on the painful toe. You may use acetaminophen or ibuprofen for pain, unless another pain medicine was prescribed. Prevention The following tips will help you prevent ingrown toenails: ?? Avoid pointed, tight, or narrow shoes. ?? Trim toenails once a month so they don???t grow too long. Cut the nail straight across. Follow-up care Follow up with your healthcare provider, or as advised. When to seek medical advice Call your healthcare provider right away if any of these occur: ?? Increasing redness, pain, or swelling of the toe ?? Tender red streaks in the skin leading toward the ankle ?? Pus or fluid drainage from the toe ?? Fever of 100.4??F (38??C) or higher, or as directed by your provider Date Last Reviewed: 10/17/2016 ?? [id number] [employer]. [address] [place] [address]. All rights reserved. This information is not intended as a substitute for professional medical care. Always follow your healthcare professional's instructions. See Podiatry if this is not effective. GER UNIX documented in this encounter Progress Notes Queta Fritz MD - 06/22/2017 4:30 PM CST SUBJECTIVE: Mahi Faye is a 17 year old female with a complex mental health history who was recently placed in a long term. She is well known to me and is here today with an employee from the home becauseof: Chief Complaint Patient presents with ??? Infection Patient here for infection on Lt big toe for 2days now PROBLEM LIST Patient Active Problem List Diagnosis Date Noted ??? Mental health disorder 03/18/2016 Priority: Medium ??? Suicidal ideation 12/18/2015 Priority: Medium ??? Aggression with talk of suicide/homicide 09/13/2014 Priority: Medium Strong evidence that she is not at risk to act on her threats. ??? Tonsillar abscess, S/P drainage 07/16/2014 Priority: Medium ??? Anxiety 07/16/2014 Priority: Medium ??? Insomnia 07/16/2014 Priority: Medium ??? Disturbance of skin sensation/ crawling skin 07/16/2014 Priority: Medium ??? Loss of weight 01/18/2014 Priority: Medium ??? 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 Learning disability Priority: Medium related to her chromosomal abnormality MEDICATIONS Current Outpatient Prescriptions Medication Sig Dispense Refill ??? ciprofloxacin (CILOXAN) 0.3 % ophthalmic solution Apply 1 drop to eye 3 times daily for 7 days 1.1 mL 0 ??? TRAZODONE HCL PO Take 100 mg by mouth At Bedtime ??? SERTRALINE HCL PO Take 100 mg by mouth daily ??? QUETIAPINE FUMARATE PO ??? desogestrel-ethinyl estradiol (APRI) 0.15-30 MG-MCG per tablet Take 1 tablet by mouth daily Discard placebo pills for two of three packets for continuous use 84 tablet 1 ??? guanFACINE (INTUNIV) 2 MG TB24 24 hr tablet Take 2 mg by mouth At Bedtime 0 ??? OLANZapine (ZYPREXA) 5 MG tablet TAKE 1 TABLET BY MOUTH EVERY 8 HOURS NEEDED 0 ??? Ergocalciferol (VITAMIN D) 58390 UNITS CAPS Take 50,000 Units by mouth every 7 days 8 capsule 0 ALLERGIES Allergies Allergen Reactions ??? Nkda [No Known Drug Allergies] ??? Seasonal Allergies Reviewed and updated as needed this visit by clinical staff Mahi is a 17 year old female who presents with acutely ingrown left 1st toenail. Has pain and tenderness at the area without fever.She has been accepting treatment with soaks while at school (once aday) but not at home. She states that they do not have the correct procedure. OBJECTIVE: BP 142/77 (BP Location: Right arm, Patient Position: Sitting, Cuff Size: Adult Regular) Pulse 100 Temp 97.7 ??F (36.5 ??C) (Oral) Ht 5' 7 (1.702 m) Wt 195 lb (88.5 kg) BMI 30.54 kg/m2 Patient appears well, normal vital signs. Left 1st toenail reveals ingrown edge with erythema, and tenderness as well as minimal granulation tissue. No pus noted. NO active abscess. . ASSESSMENT: Ingrown toenail PLAN: Discussed the differential diagnosis of her pain and Reassurance given reference the granulation tissue. Soaks several times daily, topical antibiotics per orders. Make appointment for podiatry for an evaluation for palliative wedge resection in a few days. THis is advised only if Mahi is not getting better. I anticipate she may refuse treatment given her mental health history. Nail care/trimming advised for future prevention. Queta Fritz MD, MD GER UNIX documented in this encounter Nursing Notes Juju Jeronimo F - 06/22/2017 4:30 PM CST Chief Complaint Patient presents with ??? Infection Patient here for infection on Lt big toe for 2days Initial BP 142/77 (BP Location: Right arm, Patient Position: Sitting, Cuff Size: Adult Regular) Pulse 100 Temp 97.7 ??F (36.5 ??C) (Oral) Ht 5' 7 (1.702 m) Wt 195 lb (88.5 kg) BMI 30.54 kg/m2 Estimated body mass index is 30.54 kg/(m^2) as calculated from the following: Height as of this encounter: 5' 7 (1.702 m). Weight as of this encounter: 195 lb (88.5 kg). Medication Reconciliation: complete Juju Jeronimo MA GER UNIX documented in this encounter Plan of Treatment Pending Results Name Type Priority Associated Diagnoses Date/Ti me PODIATRY/FOOT & ANKLE SURGERY Referral Routine Ingrown karyn l 06/23/2017 REFERRAL documented as of this encounter Visit Diagnoses Diagnosis Ingrown nail - Primary Ingrowing nail documented in this encounter Care Teams Mobile Manager Relationship Specialty Start Date End Date Queta Fritz MD PCP - General Pediatrics 12/19/15 05/27/[address] [phone] Queta Fritz MD PCP - Assigned PCP 03/04/14 09/20/18 [address] [place] [address] [phone] Queta Fritz MD Assigned PCP 03/04/14 04/12/21 [address] [place] [address] [phone] documented as of this encounter
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
--- OUTSIDE RECORDS SUMMARY | 2022-04-23 23:46 | XMS_ITS | Encounter Summary ---
:2000 Author Organization [place] Address [address] [facility] [place] [address] Care Team Providers Name Role Phone Queta Fritz MD Primary Care Provider [phone] Queta Fritz MD Unavailable Queta Fritz MD Unavailable [phone] Reason for Visit Reason Comments Urgent Care Eye Problem Got toilet line cleaner in eye, d id rinse at home, posion control told to come in, pt. lives in [facility] Encounter Details Date Type Department Care Team Description 04/07/2018 Office Visit [facility] Arik Vilchis Eye inju ry, initial Urgent Care Yomaira Tyson MD encounter - toilet [id number] [facility] [address] bowel line cleaner acidic [place], [place] (Primary Dx) [id number] [phone] Social History Tobacco Use Types Packs/Day Years [...] or relatives? How often do you attend anabaptist or Never 2018 alevism services? Do you belong to any clubs or No 12/07/2018 organizations such as anabaptist groups, unions, fraternal or athletic groups, or [...] or slept in a correction (including now)? 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 Urgent Care ??? Eye Problem Got toilet line cleaner in eye, did rinse at home, posion control told to come in, pt. lives in [facility] 30 minutes prior to arrival got a little bit of lysol toilet bowel line cleaner in the eye. She is accompanied by staff member at her care facility who states the other workers had washed out her eyes several times after calling poison control. They recommended that she come in for evaluation. At first hada little blurry vision but reports none right now. No major discomfort since eye was flushed at the facility. No double vision. PMHX/PSHX/MEDS/ALLERGIES/SHX/FHX reviewed in Epic. Patient Active Problem List Diagnosis Date Noted [...] Priority: Medium related to her chromosomal abnormality Current Outpatient Prescriptions Medication ??? desogestrel-ethinyl estradiol (APRI) 0.15-30 MG-MCG per tablet ??? Ergocalciferol (VITAMIN D) 91614 UNITS CAPS ??? ferrous gluconate (FERGON) 324 (38 Fe) MG tablet ??? guanFACINE (INTUNIV) 2 MG TB24 24 hr tablet ??? levonorgestrel-ethinyl estradiol (SEASONALE) 0.15-0.03 MG per tablet ??? METFORMIN HCL PO ??? naproxen (NAPROSYN) 250 MG tablet ??? OLANZapine (ZYPREXA) 5 MG tablet ??? QUETIAPINE FUMARATE PO ??? SERTRALINE HCL PO No current facility-administered medications for this visit. ROS: As above per HPI Objective: BP 124/74 Pulse 89 Temp 97.8 ??F (36.6 ??C) (Oral) Wt 186 lb (84.4 kg) SpO2 99%, There is noheight or weight on file to calculate BMI. Gen: NAD, well-nourished, sitting in chair comfortably HEENT: EOMI, sclera anicteric, Head normocephalic, ; nares patent; moist mucous membranes, under fluorescein dye no evidence of abrasions or large deep penetrating wounds, no eyelid lesions, no hyperemia of the eye bilaterally CV: Hemodynamically stable Pulm: no increased work of breathing Extrem: no cyanosis, edema or clubbing Skin: no obvious rashes or abnormalities Psych: Euthymic, linear thoughts, normal rate of speech Assessment & Plan: Mahi Faye, 18 year old female who presents with: Eye injury, initial encounter - toilet bowel line cleaner acidic Eye was flushed 3 times with normal saline. Toilet bowel line cleaner was brought in which showed hydrochloric acid as the main ingredient. No blurry vision and no discomfort after procedure performed. Fortunately, this was not a basic solution or this could have caused more serious damage. No hyperemia ofthe eye to suggest significant eye irritation. Follow-up as needed. >25 minutes was spent with the patient face to face of which more than 50% of this time was spentdiscussing diagnosis, treatment options, and performing counseling. Arik Vilchis MD [facility] Options for treatment and/or follow-up care were reviewed with the patient. Mahi Faye and/or legal guardian was engaged and actively involved in the decision making process. Patient/guardian verbalized understanding of the options discussed and was satisfied with the final plan. documented in this encounter Plan of Treatment Not on filedocumented as of this encounter Visit Diagnoses Diagnosis Eye injury, initial encounter - toilet b owel line cleaner acidic - Primary documented in this encounter Care Teams Dry Cleaning Counter Clerk Relationship Specialty Start Date End Date Queta Fritz MD PCP - General Pediatrics 12/19/15 05/27/20 [address] [id number] Queta Fritz MD PCP - Assigned PCP 03/04/14 09/20/18 [address] [place] [id number] Queta Fritz MD Assigned PCP 03/04/14 04/12/21 [address] [place] [address] [phone] documented as of this encounter
--- OUTSIDE RECORDS SUMMARY | 2022-04-23 23:46 | XMS_ITS | Encounter Summary ---
:2000 Author Organization [place] Address [address] [place] [address] Care Team Providers Name Role Phone Queta Fritz MD Primary Care Provider Queta Fritz MD Unavailable [phone] Queta Fritz MD Unavailable [phone] Reason for Visit Reason Onset Date Comments Forms 03/28/2018 [employer] Orders form Encounter Details Date Type Department Care Team Description 03/28/2018 Telephone [facility] Queta Fritz Forms ([facility] Orders Clinic Krystle De Jesus MD form) [address] [place], [place] [address] [place], [place] [address] (Wo rk) Social History Tobacco Use Types [...] or relatives? How often do you attend voodoo or Never 2018 mandaeism services? 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 Telephone Encounter - Cami Mello CMA - 03/28/2018 4:36 PM CDT [employer] Orders form in Dr. Fritz's basket. Fax to [phone]. documented in this encounter Plan of Treatment Not on filedocumented as of this encounter Visit Diagnoses Not on filedocumented in this encounter Care Teams Drill Instructor Relationship Specialty Start Date End Date Queta Fritz MD PCP - General Pediatrics 12/19/15 05/27/20 [address] [address] Queta Fritz MD PCP - Assigned PCP 03/04/14 09/20/18 [address] [place] [address] Queta Fritz MD Assigned PCP 03/04/14 04/12/21 [address] [place] [id number] documented as of this encounter
--- OUTSIDE RECORDS SUMMARY | 2022-04-23 23:46 | XMS_ITS | Encounter Summary ---
:2000 Author Organization [place] Address [address] [place] [address] Care Team Providers Name Role Phone Queta Fritz MD Primary Care Provider [phone] Queta Fritz MD Unavailable [phone] Queta Fritz MD Unavailable [phone] Reason for Visit Reason Comments Abdominal Pain Encounter Details Date Type Department Care Team Description 05/30/2018 Office Visit [facility] Queta Fritz Abdom inal pain, generalized (Primary Dx); Clinic Krystle De Jesus MD Anemia, unspecified type [address] [place] [address] [place] [address] [place] [address] [phone] (Wo rk) Social History Tobacco Use Types [...] do you attend jewish or Never 2018 sikh services? Do you [...] or slept in a [facility] (including now)? 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 documented as of this encounter Last Filed Vital Signs Vital Sign Reading Time Taken Comments Blood Pressure 137/76 05/30/2018 7:24 PM WAN SUPPORT SPECIALIST Pulse 104 05/30/2018 7:24 PM WAN SUPPORT SPECIALIST Temperature 36.8 ??C (98.2 ??F) 05/30/2018 7:24 PM WAN SUPPORT SPECIALIST Respiratory Rate 22 05/30/2018 7:24 PM WAN SUPPORT SPECIALIST Oxygen Saturation 99% 05/30/2018 7:24 PM WAN SUPPORT SPECIALIST Inhaled Oxygen Concentration - - Weight 83.5 kg (184 lb) 05/30/2018 7:24 PM WAN SUPPORT SPECIALIST Height 172.7 cm (5' 8) 05/30/2018 7:24 PM WAN SUPPORT SPECIALIST Body Mass Index 27.98 05/30/2018 7:24 PM WAN SUPPORT SPECIALIST Body Mass Index Percentile 93.62 % 05/30/2018 7:24 PM CS T Growth Chart: [facility] (Girls, 2-20 Years) documented in this encounter Progress Notes Queta Fritz MD - 05/30/2018 7:15 PM CST SUBJECTIVE: Mahi Faye is a 18 year old female, who is well known to me, who presents to clinic today with Irma because of: Chief Complaint Patient presents with ??? Abdominal Pain Telephone message from mother today: FYI--Patient's mother calling re: appointment today. States someone from the nursing home is bringing patient to appointment. Mom wanted to explain the reason for the appointment today. ?? States patient has been having constipation issues and stomach issues since starting the Iron tabs TID x 3 months ago. Went to [facility] 04-16-18 and was advised to take Miralax. Patient refused and wanted to take prune juice instead. C/o diarrhea on the prune juice. She did start taking Miralax (1-2wks ago). Now c/o very soft stool stools/diarrhea and still c/o stomach pain. ?? Mom states patient is less likely to take liquid but is wondering about Pepto Bismol. ?? Would also like hgb rechecked as its been 3 months since last check. HPI Abdominal Symptoms/Constipation Problem started: 1 weeks ago Abdominal pain: YES possible anxiety cause it Fever: no Vomiting: no Diarrhea: YES last 8 weeks Constipation: YES Frequency of stool: 3-5 times/week Nausea: no Urinary symptoms - pain or frequency: YES Therapies Tried: Miralax, and Prune juice Sick contacts: None; LMP: 02/[address] [facility] stool scale. Patient brought a note describing her symptoms. Noted that she described the abdominal pains as a squeezing, burning, throbbing, and tight pain. She indicated that the pain flares up when sleeping and exercising and improves at times with a back rub. Other associated sx include diarrhea and decrease in appetite. Patient reports that symptoms have been ongoing for 8 weeks now. She will sometimes go a few days orup to 4-5 days without a bowel movement. Patient reports that stools vary equally between a 3,5, or 7 on the bristol scale. She rarely has stools that are 2's. [facility] analytical engineer, Irma, notes that patient was seen at ED on 04/16/2018 for evaluation of generalized abdominal pain. X-ray's indicated a considerable amount of stool. She was recommended diet changes and prune juice to help improve the constipation. Irma shares that they over did it with the prune juice at first and that she almost had a couple ofaccidents. They switched to Miralax 2 weeks ago and she is still have losing stools. She has not hada formed or hard stool in about 5-6 weeks. She has been taking 17 g of Miralax a day. Abdominal pain has been localized to the upper quadrant. She states that sometimes it feels like there are shots going from her stomach to her heart. Today she experienced a 10/10 abdominal pain. Shedoes not associate the pain with bowel movements. She denies any blood present in stools. Notes that her appetite has been reduced because it tends to flare up her abdominal pain. Irma expresses that she has been eating a lot of halloween candy and questions whether the reduced appetite isassociated with her mood as one instance she did not want to eat because she was upset. Sales Data Analyst notes that there are a lot anxieties and stress going on at the time. She believes symptoms may be stress or emotional related, when she is having a god time she may go 6-7 hours without complaining of anything. Of note, patient started iron pills (325 mg 3x daily) on 02/28/2018 due to anemia. ROS Constitutional, eye, ENT, skin, respiratory, cardiac, GI, MSK, neuro, and allergy are normal except as otherwise noted. PROBLEM LIST Patient Active Problem List Diagnosis Date Noted ??? Aggression with talk of suicide/homicide 09/13/2014 Priority: High Strong evidence that she is not at risk to act on her threats. ??? Mental health disorder 03/18/2016 Priority: Medium ??? Suicidal ideation 12/18/2015 Priority: Medium ??? Anxiety 07/16/2014 Priority: Medium ??? Insomnia 07/16/2014 Priority: Medium ??? 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 Learning disability Priority: Medium related to her chromosomal abnormality MEDICATIONS Current Outpatient Medications Medication Sig Dispense Refill ??? Ergocalciferol (VITAMIN D) 40714 UNITS CAPS Take 50,000 Units by mouth [...] as needed this visit by clinical staff Tobacco Allergies Meds Med Hx Surg Hx Fam Hx Soc Hx Reviewed and updated as needed this visit by Provider This document serves as a record of the services and decisions personally performed and made by Queta Fritz MD. It was created on his behalf by Louise Kendrick, a trained medical pathology teacher. The creation of this document is based on the provider's statements to the medical pathology teacher. Louise Kendrick May 30, 2018 7:42 PM OBJECTIVE: BP 137/76 (BP Location: Right arm, Patient Position: Chair, Cuff Size: Adult Large) Pulse 104 Temp 98.2 ??F (36.8 ??C) (Oral) Resp 22 Ht 5' 8 (1.727 m) Wt 184 lb (83.5 kg) LMP 03/07/2018 SpO2 99% BMI 27.98 kg/m?? 94 %ile based on CDC (Girls, 2-20 Years) Pingptf-lbw-son data based on Stature recorded on 05/30/2018. 97 %ile based on CDC (Girls, 2-20 Years) [id number] data based on Weight recorded on 05/30/2018. 94 %ile based on CDC (Girls, 2-20 Years) BMI-for-age based on body measurements available as of 05/30/2018. Blood pressure percentiles are >99 % systolic and 83 % diastolic based on the February 2017 AAP Clinical Practice Guideline. This reading is in the Stage 1 hypertension range (BP >= 130/80). GENERAL: Active, alert, in no acute distress. [...] non-tender, not distended, no masses or hepatosplenomegaly. She complained of moderate tenderness, but there was no evidence of guarding or rebound. Bowel sounds were normal. No palpablestool Back: No CVA tenderness. DIAGNOSTICS: None No results found for this or any previous visit (from the past 24 hour(s)). ASSESSMENT/PLAN: 1. Abdominal pain, generalized 2. Anemia, unspecified type Discussed differential diagnoses of abdominal pain. Abdominal pain is multifactorial including constipation with probable overflow diarrhea vs IBS. Likely component of abdominal pain is oral iron which can stimulate acid reflux as well as cause gastritis and/or constipation. This could be largely or partially due to increased anxiety. Will defer any stool evaluation or further examination until a later date. Secondary diagnosis is mild anemia that is being treated with high dose iron. Repeat labs today revealed that iron levels have decreased. However, SED rate today was 27, which could indicate a false drop of hemoglobin and iron levels will therefore need to be rechecked. FOLLOW UP: If not improving or if worsening The information in this document, created by the medical pathology teacher for me, accurately reflects the services I personally performed and the decisions made by me. I have reviewed and approved this document for accuracy prior to leaving the patient care area. May 30, 2018 8:12 PM Queta Fritz MD SUPPORT SPECIALIST documented in this encounter Plan of Treatment Not on filedocumented as of this encounter Procedures Procedure Name Priority Date/Time Associated Comments Diagnosis FERRITIN Routine 05/30/2018 8:01 PM Anemia, unspecified Re sults for this WAN SUPPORT SPECIALIST type procedure are i n the results section. ERYTHROCYTE Routine 05/30/2018 8:01 PM Anemia, unspecified Re sults for this SEDIMENTATION RATE WAN SUPPORT SPECIALIST type procedure are in AUTO the results section. CBC WITH PLATELETS Routine 05/30/2018 8:01 PM Anemia, unspecif ied Results for this WAN SUPPORT SPECIALIST type procedure are i n the results section. documented in this encounter Results (ABNORMAL) ESR: Erythrocyte sedimentation rate (05/30/2018 8:01 PM WAN SUPPORT SPECIALIST) athologist Signature Sed Rate 27 (H) 0 - 20 mm/h 05/30/2018 [place] 8:31 PM WAN SUPPORT SPECIALIST [facility] Specimen Anatomical Collection Method Collection Time Receive d Time (Source) Location / / Volume Laterality Blood specimen 05/30/2018 8:01 PM 018 8:06 (specimen) WAN SUPPORT SPECIALIST PM WAN SUPPORT SPECIALIST Queta Fritz MD LAB - BLOOD ORDERABLES Performing Organization Address City/[facility]/ZIP Code Phon e Number [facility] [address] [place] [address] [address] Ferritin (05/30/2018 8:01 PM WAN SUPPORT SPECIALIST) athologist Signature Ferritin 32 12 - 150 05/31/2018 [facility] ng/mL 2:36 PM WAN SUPPORT SPECIALIST [facility] Specimen Anatomical Collection Method Collection Time Receive d Time (Source) Location / / Volume Laterality Blood specimen 05/30/2018 8:01 PM 018 8:06 (specimen) WAN SUPPORT SPECIALIST PM WAN SUPPORT SPECIALIST Queta Fritz MD LAB - BLOOD ORDERABLES Performing Organization Address City/[facility]/ZIP Code Phon e Number [facility] [address] [place] [address] (ABNORMAL) CBC with platelets (05/30/2018 8:01 PM WAN SUPPORT SPECIALIST) [facility] gist Method Time Signature WBC 9.0 4.0 - 11.0 05/30/2018 [place] 10e9/L 8:24 PM [facility] RBC Count 4.05 3.7 - 5.3 05/30/2018 [place] 10e12/L 8:24 PM [facility] Hemoglobin 10.6 (L) 11.7 - 05/30/2018 [facility] 15.7 g/dL 8:24 PM WAN SUPPORT SPECIALIST [facility] Hematocrit 32.5 (L) 35.0 - 05/30/2018 [place] 47.0 % 8:24 PM WAN SUPPORT SPECIALIST [facility] MCV 80 77 - 100 05/30/2018 [place] fl 8:24 PM WAN SUPPORT SPECIALIST [facility] MCH 26.2 (L) 26.5 - 05/30/2018 [place] 33.0 pg 8:24 PM [facility] MCHC 32.6 31.5 - 05/30/2018 [place] 36.5 g/dL 8:24 PM [facility] RDW 13.7 10.0 - 05/30/2018 [place] 15.0 % 8:24 PM [facility] Platelet Count 364 150 - 450 05/30/2018 [place] 10e9/L 8:24 PM [facility] Comment: Reviewed: OK with previous Specimen Anatomical Collection Method Collection Time Receive d Time (Source) Location / / Volume Laterality Blood specimen 05/30/2018 8:01 PM 018 8:06 (specimen) WAN SUPPORT SPECIALIST PM WAN SUPPORT SPECIALIST Queta Fritz MD LAB - BLOOD ORDERABLES Performing Organization Address City/State/ZIP Code Phon e Number [facility] [address] [place], [place] [address] [address] documented in this encounter Visit Diagnoses Diagnosis Abdominal pain, generalized - Primary Anemia, unspecified type documented in this encounter Care Teams Microbiology Director Relationship Specialty Start Date End Date Queta Fritz MD PCP - General Pediatrics 12/19/15 05/27/20 [address] [place] [address] Queta Fritz MD PCP - Assigned PCP 03/04/14 09/20/18 [address] [place], [place] [phone] Queta Fritz MD Assigned PCP 03/04/14 04/12/21 [address] [place] [address] documented as of this encounter
--- OUTSIDE RECORDS SUMMARY | 2022-04-23 23:46 | XMS_ITS | Encounter Summary ---
:2000 Author Organization Central Address [facility] [place] [address] Care Team Providers Name Role Phone Queta Fritz MD Primary Care Provider [phone] Queta Fritz MD Unavailable [phone] Queta Fritz MD Unavailable [phone] Reason for Referral - Closed Specialty Diagnoses / Procedures Referred By Contact Refer red To Contact Diagnoses Throat pain Ian Jamison MD Procedures KETOROLAC TROMETHAMINE 15MG [address] [facility] [place] [address] Referral ID Status Reason Start Date Expiration Date Visits Requ ested Visits Authorized [id number] Closed 08/27/2017 08/27/2018 1 1 PING RECEIVING CLERK Reason for Visit Reason Comments Urgent Care Pharyngitis Possible strep, abdominal pa in, SHARPE, neck pain. Sx going on for 2 days. Encounter Details Date Type Department Care Team Description 08/27/2017 Office Visit [facility] Ian Jamison MD Throat pain (Primary Dx); Urgent Care [facility] [address] [facility] Other headache syndrome; [address] [facility] [place] [address] [phone] Social History Tobacco Use Types Packs/Day Years [...] or relatives? How often do you attend amish or Never 2018 latter-day services? Do you belong to any clubs or No 12/07/2018 organizations such as amish groups, unions, fraternal or athletic groups, or [...] or slept in a fci (including now)? Sex Assigned at Date Recorded Female 09/04/2021 9:00 PM SHIPPING RECEIVING CLERK documented as of this encounter Last Filed Vital Signs Vital Sign Reading Time Taken Comments Blood Pressure 120/72 08/27/2017 6:31 PM SHIPPING RECEIVING CLERK Pulse 95 08/27/2017 6:31 PM SHIPPING RECEIVING CLERK Temperature 36.9 ??C (98.5 ??F) 08/27/2017 6:31 PM SHIPPING RECEIVING CLERK Respiratory Rate - - Oxygen Saturation 97% 08/27/2017 6:31 PM SHIPPING RECEIVING CLERK Inhaled Oxygen Concentration - - Weight 83.5 kg (184 lb) 08/27/2017 6:31 PM SHIPPING RECEIVING CLERK Height - - Body Mass Index - - documented in this encounter Patient Instructions Patient InstructionsIan Jamison MD - 08/27/2017 8:19 PM CST Images from the original note were not included. Viral Upper Respiratory Illness (Adult) You have a viral upper respiratory illness (URI), which is another term for the common cold. This illness is contagious during the first few days. It is spread through the air by coughing and sneezing.It may also be spread by direct contact (touching the sick person and then touching your own eyes, nose, or mouth). Frequent handwashing will decrease risk of spread. Most viral illnesses go away within 7 to 10 days with rest and simple home remedies. Sometimes the illness may last for several weeks. Antibiotics will not kill a virus, and they are generally not prescribed for this condition. Home care ?? If symptoms are severe, rest at home for the first 2 to 3 days. When you resume activity, don't let yourself get too tired. ?? Avoid being exposed to cigarette smoke (yours or others???). ?? You may use acetaminophen or ibuprofen to control pain and fever, unless another medicine was prescribed. (Note: If you have chronic liver or kidney disease, have ever had a stomach ulcer or gastrointestinal bleeding, or are taking blood-thinning medicines, talk with your healthcare provider beforeusing these medicines.) Aspirin should never be given to anyone under 18 years of age who is ill with a viral infection or fever. It may cause severe liver or brain damage. ?? Your appetite may be poor, so a light diet is fine. Avoid dehydration by drinking 6 to 8 glasses of fluids per day (water, soft drinks, juices, tea, or soup). Extra fluids will help loosen secretions in the nose and lungs. ?? Crev-xoc-vftaghx cold medicines will not shorten the length of time you???re sick, but they may be helpful for the following symptoms: cough, sore throat, and nasal and sinus congestion. (Note: Do not use decongestants if you have high blood pressure.) Follow-up care Follow up with your healthcare provider, or as advised. When to seek medical advice Call your healthcare provider right away if any of these occur: ?? Cough with lots of colored sputum (mucus) ?? Severe headache; face, neck, or ear pain ?? Difficulty??swallowing??due to throat pain ?? Fever of 100.4??F (38??C) Call 911, or get immediate medical care Call emergency services right away if any of these occur: ?? Chest pain, shortness of breath, wheezing, or difficulty breathing ?? Coughing up blood ?? Inability to swallow due to throat pain Date Last Reviewed: 03/31/2015 ?? [id number] [employer]. [address] [place] [address]. All rights reserved. This information is not intended as a substitute for professional medical care. Always follow your healthcare professional's instructions. * HEADACHE [unspecified] The cause of your headache today is not clear, but it does not appear to be the sign of any serious illness. Under stress, some people tense the muscles of their shoulder, neck and scalp without knowing it. Ifthis condition lasts long enough, a TENSION HEADACHE can occur. A MIGRAINE HEADACHE is caused by changes in blood flow to the brain. It can be mild or severe. A migraine attack may be triggered by emotional stress, hormone changes during the menstrual cycle, oral contraceptives, alcohol use, certain foods containing tyramine, eye strain, weather changes, missing meals, lack of sleep or oversleeping. Other causes of headache include a viral illness, sinus, ear or throat infection, dental pain and TMJ (jaw joint) pain. HOME CARE: ?? If you were given pain medicine for this headache, do not drive yourself home. Arrange for a ride, instead. When you get home, try to sleep. You should feel much better when you wake up. ?? If you are having nausea or vomiting, follow a light diet until your headache is relieved. ?? If you have a migraine type headache, use sunglasses when in the daylight or around bright indoorlighting until symptoms improve. Bright glaring light can worsen this kind of headache. FOLLOW UP with your doctor if the headache is not better within the next 24 hours. If you have frequent headaches you should discuss a treatment plan with your primary care doctor. By being aware of the earliest signs of headache, and starting treatment right away, you may be able to stop the pain yourself. GET PROMPT MEDICAL ATTENTION if any of the following occur: ?? Worsening of your head pain or no improvement within 24 hours ?? Repeated vomiting (unable to keep liquids down) ?? Fever over 101??F (38.3??C) ?? Stiff neck ?? Extreme drowsiness, confusion or fainting ?? Weakness of an arm or leg or one side of the face ?? Difficulty with speech or vision ?? [id number] [employer]. [address] [place] [address], [place] [address]. All rights reserved. This information is not intended as a substitute for professional medical care. Always follow your healthcare professional's instructions. This information has been modified by your health care provider with permission from the publisher. PING RECEIVING CLERK documented in this encounter Progress Notes Ian Jamison MD - 08/27/2017 5:40 PM CST SUBJECTIVE: Mahi Faye, a 17 year old female scheduled an appointment to discuss the following issues: Throat pain Other headache syndrome Myalgia Medical, social, surgical, and family histories reviewed. Urgent Care? Pharyngitis?? Possible strep, abdominal pain, SHARPE, neck pain. Sx going on for 2 days.?? As above. 2 days of sore throat, neck and back aching, headache, no injuries/trauma. ROS: See HPI. No nausea/vomiting. Low grade fever/chills. No chest pain/SOB. No BM/urine problems. No dizziness or syncope. OBJECTIVE: BP 120/72 (BP Location: Right arm, Patient Position: Chair, Cuff Size: Adult Regular) Pulse 95 Temp 98.5 ??F (36.9 ??C) (Oral) Wt 184 lb (83.5 kg) SpO2 97% EXAM: GENERAL APPEARANCE: alert and mild distress; no cyanosis or accessory muscle use; moist mucus membrane EYES: Eyes grossly normal to inspection, PERRL and conjunctivae and sclerae normal HENT: ear canals and TM's normal and nose and mouth without ulcers or lesions; erythematous throat but no exudate NECK: no adenopathy, no asymmetry, masses, or scars and neck normal to palpation RESP: lungs clear to auscultation - no rales, rhonchi or wheezes CV: regular rates and rhythm, normal S1 S2, no S3 or S4 and no murmur, click or rub LYMPHATICS: normal ant/post cervical and supraclavicular nodes ABDOMEN: soft, nontender, without hepatosplenomegaly or masses and bowel sounds normal MS: extremities normal- no gross deformities noted SKIN: no suspicious lesions or rashes NEURO: Normal strength and tone, mentation intact and speech normal ASSESSMENT/PLAN: (R07.0) Throat pain (primary encounter diagnosis) Comment: strep negative Plan: Rapid strep screen, Beta strep group A culture, (G44.89) Other headache syndrome (M79.1) Myalgia Comments: Headache and myalgia improved after Toradol IM administered Plan: ketorolac (TORADOL) 30 MG/ML injection, KETOROLAC TROMETHAMINE 15MG, INJECTION INTRAMUSCULAR OR SUB-Q naproxen (NAPROSYN) 250 MG tablet Fluid, rest. Care instruction given. Pt to f/up PCP if no improvement or worsening. Warning signs and symptoms explained. PING RECEIVING CLERK documented in this encounter Nursing Notes Tamela Campa CMA - 08/27/2017 5:40 PM CST Images from the original note were not included. Chief Complaint Patient presents with ??? Urgent Care ??? Pharyngitis Possible strep, abdominal pain, SHARPE, neck pain. Sx going on for 2 days. Initial BP 120/72 (BP Location: Right arm, Patient Position: Chair, Cuff Size: Adult Regular) Pulse 95 Temp 98.5 ??F (36.9 ??C) (Oral) Wt 184 lb (83.5 kg) SpO2 97% Estimated body mass index is 30.54 kg/(m^2) as calculated from the following: Height as of 07/13/17: 5' 7 (1.702 m). Weight as of 07/13/17: 195 lb (88.5 kg). Medication Reconciliation: complete Tamela Campa CMA (AAMA) PING RECEIVING CLERK documented in this encounter Plan of Treatment Not on filedocumented as of this encounter Procedures Procedure Name Priority Date/Time Associated Diagnosis Comme nts BETA HEMOLYTIC Routine 08/27/2017 6:57 PM Throat pain Results for this STREP GROUP A SHIPPING RECEIVING CLERK procedure are in CULTURE the results section. RAPID STREP SCREEN Routine 08/27/2017 6:39 PM Throat pain Res ults for this THROAT SWAB SHIPPING RECEIVING CLERK procedure are i n the results section. documented in this encounter Results Beta strep group A culture (08/27/2017 6:57 PM SHIPPING RECEIVING CLERK) Component Value Ref Test Analysis Performed At [facility] Range Method Time Signature Specimen Throat [facility] Culture Micro No beta 08/28/2017 RAMEY hemolytic 5:17 PM SHIPPING RECEIVING CLERK [facility] Streptococcus [place] Group A isolated Specimen Anatomical Collection Method Collection Time Receive d Time (Source) Location / / Volume Laterality Specimen from 08/27/2017 6:57 PM 08/27/19 18 6:58 throat SHIPPING RECEIVING CLERK PM SHIPPING RECEIVING CLERK (specimen) Ian Jamison MD LAB - MICRO GENERAL ORDERABL ES Performing Organization Address City/State/ZIP Code Phon e Number [facility] [id number] [place] [address] Rapid strep screen (08/27/2017 6:39 PM SHIPPING RECEIVING CLERK) Component Value Ref Test Analysis Performed At [facility] gist Range Method Time Signature Specimen Throat RAMEY Description [facility] Rapid Strep A NEGATIVE: No 08/27/2017 RAMEY Screen Group A 6:51 PM SHIPPING RECEIVING CLERK [facility] streptococcal [place] antigen detected by immunoassay, await culture report. Specimen Anatomical Collection Method Collection Time Receive d Time (Source) Location / / Volume Laterality Specimen from 08/27/2017 6:39 PM 08/27/19 18 6:40 throat SHIPPING RECEIVING CLERK PM SHIPPING RECEIVING CLERK (specimen) Ian Jamison MD LAB - MICRO GENERAL ORDERABL ES Performing Organization Address City/State/ZIP Code Phon e Number [facility] [id number] [place] [address] documented in this encounter Visit Diagnoses Diagnosis Throat pain - Primary Other headache syndrome Myalgia Mylagia and myositis, unspecified documented in this encounter Care Teams Waste Machine Tender Relationship Specialty Start Date End Date Queta Fritz MD PCP - General Pediatrics 12/19/15 05/27/20 [address] [place] [address] [phone] Queta Fritz MD PCP - Assigned PCP 03/04/14 09/20/18 [address] [place] [address] [phone] Queta Fritz MD Assigned PCP 03/04/14 04/12/21 [address] [place] [address] [phone] documented as of this encounter
--- OUTSIDE RECORDS SUMMARY | 2022-04-23 23:46 | XMS_ITS | Encounter Summary ---
:2002 Author Organization [place] Address [address] [place] [address] Care Team Providers Name Role Phone Queta Fritz MD Primary Care Provider Queta Fritz MD Unavailable [phone] Queta Fritz MD Unavailable [phone] Reason for Visit Reason Onset Date Comments Forms 06/17/2017 [facility] ng Med Orders Encounter Details Date Type Department Care Team Description 06/17/2017 Telephone [facility] Queta Fritz Forms ([facility] Krystle De Jesus MD Standing Med Orders) [address] [place], [place] [address] [place], [place] [phone] (Wo rk) Social History Tobacco Use Types [...] do you attend muslim or Never 2018 voodoo services? 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 ICE CENTER SPECIALIST Telephone Encounter - Marline Tabares - 06/17/2017 10:36 AM CST Form received from: Night Up Form requesting following info/need: Standing medication orders MIKE needed?: No Location of form: Dr. Fritz's in basket When completed the route for return: Fax ICE CENTER SPECIALIST documented in this encounter Plan of Treatment Not on filedocumented as of this encounter Visit Diagnoses Not on filedocumented in this encounter Care Teams Breaker Tender Relationship Specialty Start Date End Date Queta Fritz MD PCP - General Pediatrics 12/19/15 05/27/20 [address] [id number] Queta Fritz MD PCP - Assigned PCP 03/04/14 09/20/18 [address] [phone] Queta Fritz MD Assigned PCP 03/04/14 04/12/21 [address] [place] [address] [phone] documented as of this encounter
--- OUTSIDE RECORDS SUMMARY | 2022-04-23 23:46 | XMS_ITS | Encounter Summary ---
:2002 Author Organization [place] Address [address] [place] [address] Care Team Providers Name Role Phone Queta Fritz MD Primary Care Provider [phone] Queta Fritz MD Unavailable [phone] Queta Fritz MD Unavailable [phone] Reason for Visit Reason Onset Date Comments Forms 07/26/2018 [facility] Encounter Details Date Type Department Care Team Description 07/26/[address] [facility] Queta Fritz Forms ([facility] Krystle De Jesus MD Resources) [address] [place], [place] [address] [place] [address] [phone] (Wo rk) Social History Tobacco Use Types [...] do you attend religion or Never 2018 temple services? Do you [...] or slept in a [facility] (including now)? 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 documented as of this encounter Miscellaneous Notes Telephone Encounter - Queta Fritz MD - 08/17/2018 5:50 PM COMMODITIES BROKER Filled out and given to mother ODITIES BROKER Telephone Encounter - Leti Holder - 07/26/2018 11:49 AM CST [facility] form in Dr Fritz's folder Fax to [phone] ODITIES BROKER documented in this encounter Plan of Treatment Not on filedocumented as of this encounter Visit Diagnoses Not on filedocumented in this encounter Care Teams Medical Illustrator Relationship Specialty Start Date End Date Queta Fritz MD PCP - General Pediatrics 12/19/15 05/27/20 [address] [place] [address] [phone] Queta Fritz MD PCP - Assigned PCP 03/04/14 09/20/18 [address] [place] [address] Queta Fritz MD Assigned PCP 03/04/14 04/12/21 [address] [place] [phone] documented as of this encounter
--- OUTSIDE RECORDS SUMMARY | 2022-04-23 23:46 | XMS_ITS | Encounter Summary ---
:2000 Author Organization [facility] Address [address] [place] [address] Care Team Providers Name Role Phone Queta Fritz MD Primary Care Provider [phone] Queta Fritz MD Unavailable [phone] Queta Fritz MD Unavailable [phone] Reason for Visit Reason Comments Abdominal Pain Encounter Details Date Type Department Care Team Description 04/16/2018 Emergency [facility] Jermaine West Abd ominal pain, [facility] Emergency Dep t BUSINESS DEVELOPMENT COORDINATOR SUPERINTENDENT HOUSE generalized [address] [facility] [place], [place] [address] 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 encounter Last Filed Vital Signs Vital Sign Reading Time Taken Comments Blood Pressure 138/94 04/16/2018 11:55 PM CDT Pulse - - Temperature 36.7 ??C (98.1 ??F) 04/16/2018 10:37 PM CDT Respiratory Rate 16 04/16/2018 11:55 PM CDT Oxygen Saturation 99% 04/16/2018 11:55 PM CDT Inhaled Oxygen Concentration - - Weight 88.5 kg (195 lb) 04/16/2018 10:37 PM CDT Height 174 cm (5' 8.5) 04/16/2018 10:37 PM CDT Body Mass Index 29.22 04/16/2018 10:37 PM CDT Body Mass Index Percentile 95.32 % 04/16/2018 10:37 PM C DT Growth Chart: [facility] (Girls, 2-20 Years) documented in this encounter Discharge Instructions Discharge InstructionsJermaine West APRN SUPERINTENDENT HOUSE - 04/16/2018 11:39 PM CDT Discharge Instructions Abdominal Pain Abdominal pain (belly [...] to the Emergency Department right away if: ??? You get an oral temperature above 102oF or as directed by your provider. ??? You have blood in your stools. This may be bright red or appear as black, tarry stools. ??? You keep vomiting (throwing up) or cannot drink liquids. ??? You see blood when you vomit. ??? You cannot have a bowel movement or you cannot pass gas. ??? Your stomach gets bloated or bigger. ??? Your skin or the whites of your eyes look yellow. ??? You faint. ??? You have bloody, frequent or painful urination (peeing). ??? You have new symptoms or anything that worries you. CHILDREN: Return to the Emergency Department right away if your child has any of the above-listed symptoms or the following: ??? Pushes your hand away or screams/cries when his/her belly is touched. ??? You notice your child is very fussy or weak. ??? Your child is very tired and is too tired to eat or drink. ??? Your child is dehydrated. Signs of dehydration can be: o Significant change in the amount of wet diapers/urine. o Your infant or child starts to have dry mouth and lips, or no saliva (spit) or tears. WOMEN: Return to the Emergency Department right away if you have any of the above-listed symptoms or the following: ??? You have bleeding, leaking fluid or passing tissue from the vagina. ??? You have worse pain or cramping, or pain in your shoulder or back. ??? You have vomiting that will not stop. ??? You have a temperature of 100oF or more. ??? Your baby is not moving as much as usual. ??? You faint. ??? You get a bad headache with or without eye problems and abdominal pain. ??? You have a seizure. ??? You have unusual discharge from your vagina and abdominal pain. Abdominal pain is pretty common during . Your pain may or may not be related to your . You should follow-up closely with your OB provider so they can evaluate you and your baby. Untilyou follow-up with your regular provider, do the following: ??? Avoid sex and do not put anything in your vagina. ??? Drink clear fluids. ??? Only take medications approved by your provider. [...] directed by your provider today. Before using [id number], ask your provider and make sure to [...] if there is anything that worries you. AttachmentsThe following attachments cannot be sent through Care Everywhere. CONSTIPATION (ADULT) (GERMAN)documented in this encounter Medications at Time of Discharge Medication Sig Dispensed Refills Start Date End Date desogestrel-ethinyl Take 1 tablet by 84 tablet 1 01/16/2017 05/14/2018 estradiol (APRI) 0.15-30 mouth daily Discard MG-MCG per placebo pills for tabletIndications: two of three packets Encounter for for continuous use surveillance of contraceptive pills Ergocalciferol (VITAMIN Take 50,000 Units by 8 capsule 0 02/03/2019 D) 91693 UNITS mouth every 7 days CAPSIndications: Vitamin D deficiency ferrous gluconate Take 1 tablet (324 100 tablet 2 03/01/2018 08/23/2018 (FERGON) 324 (38 Fe) MG mg) by mouth 3 times tabletIndications: Low daily (with meals) iron stores For 3 months and then recheck labs guanFACINE (INTUNIV) 2 Take 2 mg by mouth 0 07/0508/23/2018 MG TB24 24 hr tablet At Bedtime ketorolac (TORADOL) 30 Inject 1 mL (30 mg) 1 mL 0 03/201808/23/2018 MG/ML into the muscle once injectionIndications: for 1 dose Throat pain levonorgestrel-ethinyl Take 1 tablet by 84 tablet 3 017 06/26/2020 estradiol (SEASONALE) mouth daily 0.15-0.03 MG per tabletIndications: Encounter for surveillance of contraceptive pills metFORMIN (GLUCOPHAGE) Take 500 mg by mouth 0 03/28/2020 500 MG tablet 2 times daily For appetite suppression/ seraquel naproxen (NAPROSYN) 250 Take 1 tablet (250 20 tablet 0 03/201805/14/2018 MG tabletIndications: mg) by mouth 2 times Other headache syndrome, daily (with meals) Myalgia As needed for headache and achiness OLANZapine (ZYPREXA) 5 TAKE 1 TABLET BY 0 016 05/14/2018 MG tablet MOUTH EVERY 8 HOURS NEEDED QUEtiapine ER (SEROQUEL Take 600 mg by mouth 0 11/13/2019 XR) 300 MG 24 hr tablet At Bedtime QUETIAPINE FUMARATE PO 0 SERTRALINE HCL PO Take 100 mg by mouth 0 05/14/2018 daily documented as of this encounter ED Notes Cony Lawton RN - 04/16/2018 10:48 PM CDT Patient has diffuse abdominal pain since yesterday. Patient is a difficult historian due to learningdisability. States she has had diarrhea off and on and has a decrease appetite. Jermaine West, BUSINESS DEVELOPMENT COORDINATOR SUPERINTENDENT HOUSE - 04/16/2018 10:30 PM CDT History Chief Complaint: Abdominal Pain HPI Mahi Faye is a 18 year old female with a learning disability who presents to the ED for evaluation of abdominal pain. She reports that she has felt sick since yesterday. Today, she reports feeling a sharp abdominal pain, initially in her LUQ, but that has radiated to all of her abdomen throughout the day. Due to the persistence of her symptoms, her mother decided to present her to the ED this evening. In the ED, she also reports feeling nauseous and dizzy while walking, a decreased appetite, and intermittent diarrhea. She denies any vomiting or recent travel. Her mother reports that her last period started on 03/28; she takes oral contraceptives. Of note, she is a lives in a senior care. Allergies: NKDA Medications: APRI Guanfacine Seasonale Metformin Naproxen Zyprexa Quetiaprine fumarate Sertraline Past Medical History: Learning diability Chromosomal abnormality Anxiety Past Surgical History: Cystourethroscopy Tonsil Incision and Drainage Family History: ALS Social History: Marital Status: Single [1] Presents with mother. Was at senior care earlier today. Fully immunized. Negative for tobacco use. Negative for alcohol use. Review of Systems Constitutional: Positive for appetite change. Negative for chills and fever. Respiratory: Negative for shortness of breath. Cardiovascular: Negative for chest pain. Gastrointestinal: Positive for abdominal pain, diarrhea and nausea. Negative for vomiting. Genitourinary: Negative for dysuria, frequency, hematuria, vaginal bleeding and vaginal discharge. Neurological: Positive for dizziness. All other systems reviewed and are negative. Physical Exam Patient Vitals for the past 24 hrs: BP Temp Temp src Heart Rate Resp SpO2 Height Weight 04/16/18 2237 (!) 150/91 98.1 ??F (36.7 ??C) Oral 106 16 99 % 1.74 m (5' 8.5) 88.5 kg (195 lb) Physical Exam General: Alert, Mild discomfort, well kept Eyes: PERRL, conjunctivae pink no scleral icterus or conjunctival injection ENT: Moist mucus membranes, posterior oropharynx clear without erythema or exudates, No lymphadenopathy, Normal voice Resp: Lungs clear to auscultation bilaterally, no crackles/rubs/wheezes. Good air movement CV: Normal rate and rhythm, no murmurs/rubs/gallops GI: Abdomen soft and non-distended. Normoactive BS. No obvious abdominal tenderness, guarding or rebound, No masses Skin: Warm, dry. No rashes or petechiae Musculoskeletal: No peripheral edema or calf tenderness, Normal gross ROM Neuro: Alert and oriented to person/place/time, normal sensation Psychiatric: Normal affect, cooperative, poor eye contact Emergency Department Course Imaging Radiographic findings were communicated with the patient and family who voiced understanding of the findings. XR Abdomen 2 views, flat and upright: 1. No evidence of bowel obstruction. 2. A moderate amount of stool within the colon, as per radiology. Laboratory: CBC: WBC: 6.6, HGB: 11.0 (L), PLT: 354 CMP: Glucose 101 (H), Calcium: 8.5 (L), o/w WNL (Creatinine: 0.74) UA with Microscopic: Mucous: Present (A), o/w WNL Lipase: 98 HCG: Negative. Interventions: 2303 Sucralfate suspension, 1 g, oral Emergency Department Course: Nursing notes and vitals reviewed. (3475) I performed an exam of the patient as documented above. ?? Medicine administered as documented above. Blood drawn. This was sent to the lab for further testing, results above. ?? The patient provided a urine sample here in the emergency department. This was sent for laboratory testing, findings above. The patient was sent for an abdomen x-ray while in the emergency department, findings above. ?? (2356) I rechecked the patient and discussed the results of her workup thus far. ?? Findings and plan explained to the Patient and mother. Patient discharged home with instructions regarding supportive care, medications, and reasons to return. The importance of close follow-up was reviewed. The patient was prescribed no medications. ?? I personally reviewed the laboratory results with the Patient and mother and answered all related questions prior to discharge. Impression & Plan Medical Decision Making: Mahi Faye presents with abdominal pain. The differential diagnosis is broad and includes: Appendicitis, cholecystitis, peptic ulcer disease, diverticulitis, bowel obstruction, ischemia, pancreatitis, amongst others. Based on clinical exam, laboratory testing, and imaging, no significant etiologies were found. The pain has improved with interventions in the ED. The exact etiology of the pain is not clear at this time. However, the moderate amount of stool noted on xray points towards constipation as the cause. She will be discharged, and was warned that persistent or worsening symptoms should prompt re-examination (ED if necessary) in 8-12 hours. Diagnosis: ICD-10-CM 1. Abdominal pain, generalized R10.84 Disposition: discharged to home Scribe Disclosure: I, Eleanor Dawsonlisa, am serving as a scribe on 04/16/2018 at 10:35 PM to personally document services performed by Jermaine West APRN* based on my observations and the provider's statements to me. Eleanor Armani 04/16/2018 [facility] EMERGENCY DEPARTMENT Jermaine West APRN SUPERINTENDENT HOUSE 04/16/18 1964 documented in this encounter Plan of Treatment Not on filedocumented as of this encounter Procedures Procedure Name Priority Date/Time Associated Comments Diagnosis XR ABDOMEN 2 VIEWS STAT 04/16/2018 11:22 Resul ts for this PM CDT procedure are i n the results section. LIPASE STAT 04/16/2018 11:00 Results for this PM CDT procedure are i n the results section. COMPREHENSIVE STAT 04/16/2018 11:00 Results fo r this METABOLIC PANEL PM CDT procedure ar e in the results section. CBC WITH PLATELETS STAT 04/16/2018 11:00 Resul ts for this PM CDT procedure are i n the results section. HCG QUALITATIVE URINE STAT 04/16/2018 10:52 Re sults for this PM CDT procedure are i n the results section. URINE MACROSCOPIC WITH STAT 04/16/2018 10:52 R esults for this REFLEX TO MICRO PM CDT procedure ar e in the results section. documented in this encounter Results Abdomen XR, 2 vw, flat and upright (04/16/2018 11:22 PM CDT) Anatomical Region Laterality Modality Abdomen/Pelvis Digital Radiography Specimen (Source) Anatomical Location Collection Method / Collectio n Time Received Time / Laterality Volume Impressions 04/16/2018 11:44 PM CDT IMPRESSION: 1. No evidence of bowel obstruction. 2. A moderate amount of stool within the colon. PRAMOD TOUSSAINT MD Narrative 04/16/2018 11:44 PM CDT ABDOMEN 2 VIEWS ??04/16/2018 11:22 PM HISTORY: Abdominal pain. COMPARISON: None. FINDINGS: Gas is scattered within nondil ated small and large bowel. A moderate amount of stool is present in t he colon. No visualized bowel wall thickening, pneumatosis or free int raperitoneal gas. No abnormal calcifications in the abdomen or pelvis. Procedure Note Pramod Toussaint MD - 04/16/2018Fo rmatting of this note might be different from the original. ABDOMEN 2 VIEWS 04/16/2018 11:22 PM HISTORY: Abdominal pain. COMPARISON: None. FINDINGS: Gas is scattered within nondil ated small and large bowel. A moderate amount of stool is present in t he colon. No visualized bowel wall thickening, pneumatosis or free int raperitoneal gas. No abnormal calcifications in the abdomen or pelvis. IMPRESSION: 1. No evidence of bowel obstruction. 2. A moderate amount of stool within the colon. PRAMOD TOUSSAINT MD Jermaine West APRN, CNP IMG DIAGNOSTIC IMAGING ORDE RABLES Lipase (04/16/2018 11:00 PM CDT) athologist Signature Lipase 98 0 - 194 U/L 04/16/2018 [facility] 11:25 PM CDT HOSPITAL Specimen Anatomical Collection Method Collection Time Receive d Time (Source) Location / / Volume Laterality Blood specimen 04/16/2018 11:00 8 (specimen) PM CDT 11:01 PM CDT Jermaine West APRN, CNP LAB - BLOOD ORDERABLES Performing Organization Address City/State/ZIP Code Phon e Number [facility] [address], [place] [address] [facility] [address] [phone] (ABNORMAL) Comprehensive metabolic panel (04/16/2018 11:00 PM CDT) athologist Signature Sodium 138 133 - 144 04/16/2018 [place] mmol/L 11:25 PM [facility] Potassium 3.8 3.4 - 5.3 04/16/2018 [place] mmol/L 11:25 PM [facility] Chloride 107 96 - 110 04/16/2018 [place] mmol/L 11:25 PM [facility] Carbon Dioxide 25 20 - 32 04/16/2018 [place] mmol/L 11:25 PM [facility] Anion Gap 6 3 - 14 04/16/2018 [place] mmol/L 11:25 PM [facility] Glucose 101 (H) 70 - 99 04/16/2018 [place] mg/dL 11:25 PM [facility] Urea Nitrogen 7 7 - 19 04/16/2018 [place] mg/dL 11:25 PM [facility] Creatinine 0.74 0.50 - 04/16/2018 [place] 1.00 mg/dL 11:25 PM [facility] GFR Estimate >90 >60 04/16/2018 [place] mL/min/1.7 11:[address] Comment: Non GFR Calc GFR Estimate If >90 >60 mL/min/1.7m2 04/16/2018 11:25 PM [facility] Comment: GFR Calc Calcium 8.5 (L) 9.1 - 10.3 04/16/2018 11:25 PM [facility] mg/dL [facility] Bilirubin Total 0.2 0.2 - 1.3 mg/dL 04/16/2018 11:25 P [facility] Albumin 3.6 3.4 - 5.0 g/dL 04/16/2018 11:25 PM [facility] Protein Total 7.5 6.8 - 8.8 g/dL 04/16/2018 11:25 PM [facility] Alkaline Phosphatase 109 40 - 150 U/L 04/16/2018 11:25 PM [facility] ALT 14 0 - 50 U/L 04/16/2018 11:25 PM [facility] AST 11 0 - 35 U/L 04/16/2018 11:25 PM [facility] Specimen Anatomical Collection Method Collection Time Receive d Time (Source) Location / / Volume Laterality Blood specimen 04/16/2018 11:00 8 (specimen) PM CDT 11:01 PM CDT Jermaine West APRN [employer]ENDENT [employer]SE LAB - BLOOD ORDERABLES Performing Organization Address City/[facility]/ZIP Code Phon e Number [facility] [address], [place] [address] [facility] [address] [place] [address] [phone] (ABNORMAL) CBC (platelets, no diff) (04/16/2018 11:00 PM CDT) Analysis Performed At Patho logist Time Signature WBC 6.6 4.0 - 11.0 04/16/2018 [facility] 10e9/L 11:09 PM [facility] RBC Count 4.25 3.7 - 5.3 04/16/2018 [facility] 10e12/L 11:09 PM [facility] Hemoglobin 11.0 (L) 11.7 - 04/16/2018 [facility] 15.7 g/dL 11:09 PM [facility] Hematocrit 34.8 (L) 35.0 - 04/16/2018 [facility] 47.0 % 11:09 PM [facility] MCV 82 77 - 100 04/16/2018 [facility] fl 11:09 PM [facility] MCH 25.9 (L) 26.5 - 04/16/2018 [facility] 33.0 pg 11:09 PM [facility] MCHC 31.6 31.5 - 04/16/2018 [facility] 36.5 g/dL 11:09 PM [facility] RDW 13.4 10.0 - 04/16/2018 [facility] 15.0 % 11:09 PM [facility] Platelet Count 354 150 - 450 04/16/2018 [facility] 10e9/L 11:09 PM [facility] Specimen Anatomical Collection Method Collection Time Receive d Time (Source) Location / / Volume Laterality Blood specimen 04/16/2018 11:00 8 (specimen) PM CDT 11:01 PM CDT Jermaine West APRN [employer]PERINTENDENT HOUSE LAB - BLOOD ORDERABLES Performing Organization Address City/State/ZIP Code Phon e Number [facility] [address], [place] [address] [facility] [address] [phone] (ABNORMAL) UA reflex to Microscopic (04/16/2018 10:52 PM T) [facility] Method Time Signature Color Urine Straw 04/16/2018 [facility] 11:03 PM [facility] Appearance Urine Slightly 04/16/2018 [facility] Cloudy 11:03 PM [facility] Glucose Urine Negative NEG^Negat 04/16/2018 [facility] eunice mg/dL 11:03 PM [facility] Bilirubin Urine Negative NEG^Negat 04/16/2018 [facility] eunice 11:03 PM [facility] Ketones Urine Negative NEG^Negat 04/16/2018 [facility] eunice mg/dL 11:03 PM [facility] Specific [place] 1.005 1.003 - 04/16/2018 [facility] Urine 1.035 11:03 PM [facility] Blood Urine Negative NEG^Negat 04/16/2018 [facility] eunice 11:03 PM [facility] pH Urine 7.0 5.0 - 7.0 04/16/2018 [facility] pH 11:03 PM [facility] Protein Albumin Negative NEG^Negat 04/16/2018 [facility] Urine eunice mg/dL 11:03 PM [facility] Urobilinogen 0.0 0.0 - 2.0 04/16/2018 [facility] mg/dL mg/dL 11:03 PM [facility] Nitrite Urine Negative NEG^Negat 04/16/2018 [facility] eunice 11:03 PM [facility] Leukocyte Negative NEG^Negat 04/16/2018 [facility] Esterase Urine eunice 11:03 PM [facility] Source Midstream 04/16/2018 [facility] Urine 10:52 PM [facility] RBC Urine 1 0 - 2 04/16/2018 [facility] /HPF 11:03 PM [facility] WBC Urine 1 0 - 5 04/16/2018 [facility] /HPF 11:03 PM [facility] Squamous 1 0 - 1 04/16/2018 [facility] Epithelial /HPF /HPF 11:03 PM [facility] Mucous Urine Present (A) NEG^Negat 04/16/2018 [facility] eunice /LPF 11:03 PM [facility] Specimen (Source) Anatomical Collection Method Collection Time Re ceived Time Location / / Volume Laterality Examination of 04/16/2018 10:52 8 midstream urine PM CDT 10:53 PM CDT specimen (procedure) Jermaine West APRN SUPERINTENDENT HOUSE LAB - URINE ORDERABLES Performing Organization Address City/[facility]/ZIP [facility] Phon e Number [facility] [address], [place] [address] [facility] [address] [place], [place] [address] [phone] HCG qualitative urine (04/16/2018 10:52 PM CDT) athologist Signature HCG Qual Urine Negative NEG^Negati 04/16/2018 [facility] 11:07 PM CDT [facility] Comment: This test is for screening purposes. ??R esults should be interpreted along with the clinical picture. ??Confirmation te sting is available if warranted by ordering [id number], HCG Quantitative Pregna ncy. Specimen Anatomical Collection Method Collection Time Receive d Time (Source) Location / / Volume Laterality Urine specimen URINE SPECIMEN 04/16/2018 10:52 018 (specimen) OBTAINED BY CLEAN PM CDT 10:53 PM C DT CATCH PROCEDURE / Unknown Jermaine West APRN, CNP LAB - URINE ORDERABLES Performing Organization Address City/[facility] Phon e Number [facility] [address], [place] [address] [facility] [address] [place], [place] [address] [phone] documented in this encounter Visit Diagnoses Diagnosis Abdominal pain, generalized documented in this encounter Administered Medications Inactive Administered Medications - up to 3 most recent administrations Medication Order MAR Action Action Date Dose Rate Site sucralfate (CARAFATE) suspension 1 Given 04/16/2018 11:04 PM CDT 1 g g 1 g, Oral, ONCE, On 04/16/18 at 2242, For 1 dose documented in this encounter Active and Recently Administered Medications Times are shown in CDT. Scheduled Medication Order 04/14/2018 04/15/2018 04/16/2018 sucralfate (CARAFATE) suspension 1 g (COMPLETED) 2304 (Given - Provider: Cony Lawton RN) 1 g, Oral, ONCE, On 04/16/18 at 2242, For 1 dose documented in this encounter Care Teams Claim Inspector Relationship Specialty Start Date End Date Queta Fritz MD PCP - General Pediatrics 12/19/15 05/27/20 [address] [place] [address] [phone] Queta Fritz MD PCP - Assigned PCP 03/04/14 09/20/18 [address] [place] [address] [phone] Queta Fritz MD Assigned PCP 03/04/14 04/12/21 [address] [place] [address] [phone] documented as of this encounter
--- OUTSIDE RECORDS SUMMARY | 2022-04-23 23:46 | XMS_ITS | Encounter Summary ---
:2000 Author Organization [facility] Address [address] [place] [address] Care Team Providers Name Role Phone Queta Fritz MD Primary Care Provider [phone] Queta Fritz MD Unavailable [phone] Queta Fritz MD Unavailable [phone] Reason for Visit Reason Comments Knee Pain Right Encounter Details Date Type Department Care Team Description 09/29/2017 Emergency [facility] Karoline Billingsley, Ac ra pain of right [facility] [facility] knee [address] [facility] [place], [place] [address] [address] [facility] [phone] [place], [place] [address] (Wo rk) Social History [...] do you attend mandaeism or Never 2018 adventist services? Do you [...] or slept in a penitentiary (including now)? 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 May try to loosen your splint first but if symptoms persist please return to the ED. Please see orthopedics within 5-7 days for a recheck. Use tylenol and ibuprofen for pain. Discharge Instructions Extremity Injury You were seen today for an injury to an extremity (arm, hand, leg, or foot). You may have a bruise, strain, or fracture (broken bone). Generally, every Emergency Department visit should have a follow-up clinic visit with either a primary or a specialty clinic/provider. Please follow-up as instructed by your emergency provider today. Return to the Emergency Department right away if: ??? Your pain seems to change or get worse or there is pain in a new area that wasn???t evaluated today. ??? Your extremity becomes pale, cool, blue, or numb or tingling past the injury. ??? You have more drainage, redness or pain in the area of the cut or abrasion. ??? You have pain that you cannot control with the medicine recommended or prescribed here, or you have pain that seems too much for your injury. ??? Your child (who is injured) will not stop crying or is much more fussy than normal. ??? You have new symptoms or anything that worries you. What to Expect: ??? Your swelling and pain may be worse the day after your injury, but should not be severe and should start getting better after that. You should not have new symptoms and your pain should not get worse. ??? You may start to get a bruise over the injured area or below the injured area (bruising can follow gravity). ??? Your movement and strength should get better with time. ??? Some injuries may not show up until after you have left the Emergency Department so it is important to follow-up as directed. ??? Your injury may prevent you from working. Follow-up with your regular provider to get a work release note. ??? Pain medications or your injury may make it unsafe to drive or operate machinery. Home Care: ??? RICE: Rest, Ice, Compression, Elevation o Rest: Rest your injured area for at least 1-2 days. After that you may start using your extremity again as long as there is not too much pain. o Ice: Apply ice your injured area for 15 minutes at a time, at least 3 times a day. Use a cloth between the ice bag and your skin to prevent frostbite. Do not sleep with an ice pack or heating pad on,since this can cause aguirre or skin injury. o Compression: You may use an elastic bandage (Blaise?? Wrap) if it makes you more comfortable. Wrap itjust tight enough to provide light compression, like a new pair of socks feels. Loosen the bandage if you have swelling past the bandage. o Elevation: Raise the injured area above the level of your heart as much as possible in the first 1-2 days. ??? Use Tylenol?? (acetaminophen), Motrin (ibuprofen), or Advil?? (ibuprofen) for your pain unless you have an allergy or are told not to use these medications by your provider. Take the medications asinstructed on the package. Tylenol?? (acetaminophen) is in many prescription medicines and non-prescription medicines--check all of your medicines to be sure you aren???t taking more than 3000 mg per day. ??? Please follow any other instructions that were discussed with you by your provider. Stretching/Exercises: You may have been provided with instructions for stretching or exercises. If your injury was to your arm or shoulder and your provider put you in a sling or an immobilizer, it is important that you take off your immobilizer within 3 days and stretch/move your shoulder, unless your provider specifically tells you to not move your shoulder. This is to prevent further injury such as a ???frozen shoulder?? . If you were given a prescription for [...] Units by 8 capsule 0 02/03/2019 D) 41708 UNITS mouth every 7 days CAPSIndications: Vitamin [...] tabletIndications: Encounter for surveillance of contraceptive pills naproxen (NAPROSYN) 250 Take 1 tablet (250 [...] documented as of this encounter ED Notes Farzana Forman RN - 09/29/2017 9:51 AM CDT Patient getting into van and heard a pop in her Right knee. Swelling noted. CMS intact. Karoline Billingsley MD - 09/29/2017 9:33 AM CDT History Chief Complaint: Knee Pain (Right) LILIA Faye is a 17 year old female who presents with knee pain. 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 She immediately felt a pop in her knee and has had persistent pain since that time. Mother and patient deny all other injuries and complaints. Allergies: Nkda [No Known Drug Allergies] Seasonal Allergies Medications: Fergon Sertraline HCL Quetiapine Fumarate Apri Intuniv Zyprexa Vitamin D Naproxen Seasonale Metformin Past Medical History: Chromosomal Abnormality Congen Urethral Stenosis Learning Disability Tonsillar Abscess Disturbance of Skin Sensation Insomnia Anxiety Aggression with Talk of Suicide Mental Health Disorder Past Surgical History: Cystourethroscopy Incision and Drainage Tonsil, Combined Family History: ALS Social History: Presents with mother Tobacco use: Never Alcohol use: No PCP: Queta Fritz MD Review of Systems Musculoskeletal: Right knee pain All other systems reviewed and are negative. Physical Exam Patient Vitals for the past 24 hrs: BP Temp Temp src Pulse Resp SpO2 09/29/17 0945 119/81 97.6 ??F (36.4 ??C) Oral 105 16 98 % Physical Exam Physical Exam General: Sitting on bed, comfortable appearing. Head: No obvious trauma to head Ears, Nose: External ears normal. Nose normal. Eyes: Conjunctivae clear. Pupils round and symmetry. Neck: Normal range of motion. Neck supple and symmetric. Pulm/Chest: No respiratory distress. Breathing comfortably. CV: Regular rate and rhythm. MSK: Right knee with suprapatellar edema and swelling, tenderness over the patella. No appreciable effusion. Range of motion largely intact limited somewhat from pain. No ligamentous laxity appreciableon exam. 2+ distal pulses. Sensation intact. Neuro: Alert. Moving all extremities. Skin: Skin is warm and dry. Emergency Department Course Imaging: Radiographic findings were communicated with the patient and family who voiced understanding of the findings. XR Knee, Right: IMPRESSION: No fractures are seen in the right knee. Joint spaces are preserved. No significant softtissue swelling or knee effusion. Results per radiology. Interventions: 1127: Tylenol 650 mg PO Emergency Department Course: Past medical records, nursing notes, and vitals reviewed. 1051: I performed an exam of the patient and obtained history, as documented above. Above interventions provided. The patient was sent for a right knee xray while in the emergency department, findings above. I personally reviewed the laboratory results with the Patient and mother and answered all related questions prior to discharge. 1113: I rechecked the patient. Findings and plan explained to the Patient and mother. Patient discharged home with instructions regarding supportive care, medications, and reasons to return. The importance of close follow-up was reviewed. Impression & Plan Medical Decision Making: Mahi Faye is a 17 year old female who presents with knee pain. Vital signs are unremarkable. Mild tachycardia, otherwise unremarkable. Broad differential pursued, though not limited to, fracture, dislocation, sprain, strain, neurovascular injury, ligamentous injury, etc. Patient is well appearing and nontoxic. She has some suprapatellar swelling. There is no appreciable ligamentous injury onexamination. She has 2+ distal DP pulses and is neurovascularly intact. Xray is negative for any acute fracture, dislocation, or effusion. Given that she is young, and likely still growing, I opted to place her in a knee immobilizer to protect the joint. I also referred her to [facility] and advised that shecontinue range of motion while in bed. I advised that she is non weight bearing on that knee. Advised Tylenol, ibuprofen, and ice. patient and family member caretaker voice understanding. Patient was discharged in stable condition. Diagnosis: ICD-10-CM 1. Acute pain of right knee M25.561 Disposition: Discharged to home with plan as outlined. 09/29/2017 [facility] Denia Reis am serving as a scribe at 10:51 AM on 09/29/2017 to document services personally performed by Karoline Billingsley MD based on my observations and the provider's statements to me. Karoline Billingsley MD 09/29/171927 documented in this encounter Plan of Treatment Not on filedocumented as of this encounter Procedures Procedure Name Priority Date/Time Associated Diagnosis Comme nts XR KNEE RIGHT 1/2 STAT 09/29/2017 10:26 AM Res ults for this VIEWS CDT procedure are i n the results section. documented in this encounter Results Knee XR, 1-2 views, right (09/29/2017 10:26 AM CDT) Anatomical Region Laterality Modality Thigh, Knee, Leg Right Computed Radiography Specimen (Source) Anatomical Location Collection Method / Collectio n Time Received Time / Laterality Volume Impressions 09/29/2017 10:52 AM CDT IMPRESSION: No fractures are seen in the right knee. Joint spaces are preserved. No significant soft tissue sw elling or knee effusion. ALONZO CASTRO MD Narrative 09/29/2017 10:52 AM CDT XR KNEE RT 1 /2 VW 09/29/2017 10:26 AM COMPARISON: None. HISTORY: Pain. Procedure Note Alonzo Castro MD - 09/29/2017 XR KNEE RT 1 /2 VW 09/29/2017 10:26 AM COMPARISON: None. HISTORY: Pain. IMPRESSION: No fractures are seen in the right knee. Joint spaces are preserved. No significant soft tissue sw elling or knee effusion. ALONZO CASTRO MD Henrietta Cruz MD IMG DIAGNOSTIC IMAGING ORDERABLES documented in this encounter Visit Diagnoses Diagnosis Acute pain of right knee documented in this encounter Administered Medications Inactive Administered Medications - up to 3 most recent administrations Medication Order MAR Action Action Date Dose Rate Site acetaminophen (TYLENOL) tablet Given 09/29/2017 11:27 AM CDT 650 mg 650 mg 650 mg, Oral, ONCE, On Wed09/29/17 at 1058, For 1 dose, Maximum acetaminophen dose from all sources = 75 mg/kg/day not to exceed 4 grams/day. documented in this encounter Active and Recently Administered Medications Times are shown in CDT. Scheduled Medication Order 09/27/2017 09/28/2017 09/29/2017 acetaminophen (TYLENOL) tablet 650 mg (COMPLETED) 1127 (Given - Provider: Genny Jamison RN) 650 mg, Oral, ONCE, On Wed09/29/17 at 10 58, For 1 dose, Maximum acetaminophen dose from all sources = 75 mg/kg/day not to exceed 4 grams/day. documented in this encounter Care Teams Saturator Tender Relationship Specialty Start Date End Date Queta Fritz MD PCP - General Pediatrics 12/19/15 05/27/20 [address] [id number] Queta Fritz MD PCP - Assigned PCP 03/04/14 09/20/18 [address] [id number] Queta Fritz MD Assigned PCP 03/04/14 04/12/[address] [id number] documented as of this encounter
--- OUTSIDE RECORDS SUMMARY | 2022-04-23 23:46 | XMS_ITS | Encounter Summary ---
:2002 Author Organization [facility] Address [address] [place] [address] Care Team Providers Name Role Phone Queta Fritz MD Primary Care Provider [phone] Queta Fritz MD Unavailable [phone] Queta Fritz MD Unavailable [phone] Reason for Visit Reason Onset Date Comments Medication Question 06/23/2017 Encounter Details Date Type Department Care Team Description 06/23/2017 Telephone [facility] Queta Fritz Medic ation Question Clinic Krystle De Jesus MD [address] [place], [place] [address] [place] [address] (Wo rk) Social History Tobacco [...] or relatives? How often do you attend episcopalian or Never 2018 synagogue services? Do you belong to any clubs or No 12/07/2018 organizations such as episcopalian groups, unions, fraternal or athletic groups, or [...] or slept in a long-term (including now)? 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 ISH INSTRUCTOR Telephone Encounter - Johanna Delcid RN - 06/23/2017 10:31 AM CST Received voicemail at 1012 from Rachel from patient's senior living. Rachel was inquiring about recent office visit and needing clarification on doctors orders. [employer] called back the number provided [phone] and left a voicemail to return call to clinic. ISH INSTRUCTOR documented in this encounter Plan of Treatment Not on filedocumented as of this encounter Visit Diagnoses Not on filedocumented in this encounter Care Teams Lay Brother Relationship Specialty Start Date End Date Queta Fritz MD PCP - General Pediatrics 12/19/15 05/27/[address] [phone] Queta Fritz MD PCP - Assigned PCP 03/04/14 09/20/18 [address] [id number] Queta Fritz MD Assigned PCP 03/04/14 04/12/[address] [id number] documented as of this encounter
--- OUTSIDE RECORDS SUMMARY | 2022-04-23 23:46 | XMS_ITS | Encounter Summary ---
:2002 Author Organization [facility] Address [address] [place] [address] Care Team Providers Name Role Phone Queta Fritz MD Primary Care Provider [phone] Queta Fritz MD Unavailable [phone] Queta Fritz MD Unavailable [phone] Reason for Visit Reason Onset Date Comments Forms 01/21/2018 [facility] Encounter Details Date Type Department Care Team Description 01/21/2018 Telephone [facility] Queta Fritz Forms ([facility] Krystle De Jesus MD resources) [address] [place], [place] [address] [place] [address] [phone] (Wo rk) Social History Tobacco Use Types [...] together with friends Three times a wee julio 12/07/2018 or relatives? How often do you attend gnosticism or Never 2018 methodist services? Do you [...] or slept in a jail (including now)? 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 Miscellaneous Notes Telephone Encounter - Azaelandrew Leti - 01/21/2018 2:45 PM CDT [place] form faxed to [phone] documented in this encounter Plan of Treatment Not on filedocumented as of this encounter Visit Diagnoses Not on filedocumented in this encounter Care Teams Cable Placer Relationship Specialty Start Date End Date Queta Fritz MD PCP - General Pediatrics 12/19/15 05/27/20 [address] [phone] Queta Fritz MD PCP - Assigned PCP 03/04/14 09/20/18 [address] [place] [address] [id number] Queta Fritz MD Assigned PCP 03/04/14 04/12/21 [address] [place] [phone] documented as of this encounter
--- OUTSIDE RECORDS SUMMARY | 2022-04-23 23:46 | XMS_ITS | Encounter Summary ---
:2000 Author Organization [facility] Address [address] [place] [address] Care Team Providers Name Role Phone Queta Fritz MD Primary Care Provider Queta Fritz MD Unavailable [phone] Queta Fritz MD Unavailable [phone] Reason for Visit Reason Comments Well Child 17 years. Encounter Details Date Type Department Care Team Description 02/28/2018 Office Visit [facility] Queta Fritz adolescent visit with abnormal findings (Primary Dx); Clinic Krystle De Jesus MD Intellectual disability; [address] Anemia, unspe cified type; [address] [employer] [address]; [place], [place] Chromosomal abnormality; [id number] Anxiety [phone] Social History Tobacco Use Types Packs/Day Years [...] do you attend cheondoism or Never 2018 confucianist services? Do you belong to any clubs [...] at Date Recorded Female 09/04/2021 9:00 PM PLUG GROWER documented as of this encounter Last Filed Vital Signs Vital Sign Reading Time Taken Comments Blood Pressure 122/76 02/28/2018 8:24 AM CDT Pulse 108 02/28/2018 8:24 AM CDT Temperature 36.9 ??C (98.4 ??F) 02/28/2018 8:24 AM CDT Respiratory Rate - - Oxygen Saturation 97% 02/28/2018 8:24 AM CDT Inhaled Oxygen Concentration - - Weight 84.7 kg (186 lb 12.8 oz) 02/28/2018 8:24 AM CDT Height 172.7 cm (5' 8) 02/28/2018 8:24 AM CDT Body Mass Index 28.4 02/28/2018 8:24 AM CDT Body Mass Index Percentile 94.47 % 02/28/2018 8:24 AM CD T Growth Chart: CDC (Girls, 2-20 Years) documented in this encounter Patient Instructions Patient InstructionsPhan Snell CMA - 02/28/2018 8:29 AM CDT Preventive Care at the 15 - 18 Year Visit Growth Percentiles & Measurements Weight: 186 lbs 12.8 oz / 84.7 kg (actual weight) / 97 %ile based on CDC 2-20 Years dvnjdg-cyz-ohb data using vitals from 02/28/2018. Length: 5' 8 / 172.7 cm 94 %ile based on CDC 2-20 Years aexxijq-nwt-kqk data using vitals from 02/28/2018. BMI: Body mass index is 28.4 kg/(m^2). 94 %ile based on CDC 2-20 Years BMI-for-age data using vitalsfrom 02/28/2018. Blood Pressure: Blood pressure percentiles are 85.3 % systolic and 82.8 % diastolic based on the February 2017 AAP Clinical Practice Guideline. This reading is in the elevated blood pressure range (BP >= 120/80). Next Visit ??? Continue to see your health care provider every year for preventive care. Nutrition ??? It???s very important to eat breakfast. This will help you make it through the morning. ??? Sit down with your family for a meal on a regular basis. ??? Eat healthy meals and snacks, including fruits and vegetables. Avoid salty and sugary snack foods. ??? Be sure to eat foods that are high in calcium and iron. ??? Avoid or limit caffeine (often found in soda pop). Sleeping ??? Your body needs about 9 hours of sleep each night. ??? Keep screens (TV, computer, and video) out of the bedroom / sleeping area. They can lead to poorsleep habits and increased obesity. Health ??? Limit TV, computer and video time. ??? Set a goal to be physically fit. Do some form of exercise every day. It can be an active sport like skating, running, swimming, a team sport, etc. ??? Try to get 30 to 60 minutes of exercise at least three times a week. ??? Make healthy choices: don???t smoke or drink alcohol; don???t use drugs. In your teen years, you can expect . . . ??? To develop or strengthen hobbies. ??? To build strong friendships. ??? To be more responsible for yourself and your actions. ??? To be more independent. ??? To set more goals for yourself. ??? To use words that best express your thoughts and feelings. ??? To develop self-confidence and a sense of self. ??? To make choices about your education and future career. ??? To see big differences in how you and your friends grow and develop. ??? To have body odor from perspiration (sweating). Use underarm deodorant each day. ??? To have some acne, sometimes or all the time. (Talk with your doctor or nurse about this.) ??? Most girls have finished going through puberty by 15 to 16 years. Often, boys are still growing and building muscle mass. Sexuality ??? It is normal to have sexual feelings. ??? Find a supportive person who can answer questions about puberty, sexual development, sex, abstinence (choosing not to have sex), sexually transmitted diseases (STDs) and control. ??? Think about how you can say no to sex. Safety ??? Accidents are the greatest threat to your health and life. ??? Avoid dangerous behaviors and situations. For example, never drive after drinking or using drugs. Never get in a car if the dinkey driver has been drinking or using drugs. ??? Always wear a seat belt in the car. When you drive, make it a rule for all passengers to wear seat belts, too. ??? Stay within the speed limit and avoid distractions. ??? Practice a fire escape plan at home. Check smoke detector batteries twice a year. ??? Keep electric items (like blow dryers, razors, curling irons, etc.) away from water. ??? Wear a helmet and other protective gear when bike riding, skating, skateboarding, etc. ??? Use sunscreen to reduce your risk of skin cancer. ??? Learn first aid and CPR (cardiopulmonary resuscitation). ??? Avoid peers who try to pressure you into risky activities. ??? Learn skills to manage stress, anger and conflict. ??? Do not use or carry any kind of weapon. ??? Find a supportive person (teacher, parent, health provider, counselor) whom you can talk to whenyou feel sad, angry, lonely or like hurting yourself. ??? Find help if you are being abused physically or sexually, or if you fear being hurt by others. As a teenager, you will be given more responsibility for your health and health care decisions. While your parent or guardian still has an important role, you will likely start spending some time alonewith your health care provider as you get older. Some teen health issues are actually considered confidential, and are protected by law. Your health care team will discuss this and what it means with you. Our goal is for you to become comfortable and confident caring for your own health. 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 She is here for a routine health maintenance visit. Patient was roomed by: Phan Snell Last [facility] was on 02/01/17 with me. Mahi was seen by Dr. Beyer at [facility] on 02/15/18 for a follow up of her medications.The side effects of her Zoloft were found to outweigh the benefits, so she has since stopped medication. Mother reports that she is doing much better since weaning off. Her mood and behaviors have beenfairly well controlled with metformin 500 mg and Seroquel 300 mg daily. She continues to take Iron, vitamin D, and her OCP daily as well. Mother notes that Mahi gets out of breath easily when walking up stairs and occasionally will need to stop and rest. She is not as active as she should be at her age, [facility] or goes on bike rides with her mother. She does not cough during times when she needs rest. Mahi reports that she will be starting basketball in the fall. There have been ongoing difficulties at her care home that were not discussed at length today. Mahi continues to get help with this from psychiatry and counseling. She first moved into her care home in June 2017. Well Child Social History Patient accompanied by: Mother Questions or concerns?: YES Forms to complete? YES Child lives with:: OTHER* Languages spoken in the home: [place]ankan Recent family changes/ special stressors?: OTHER* Safety / Health Risk TB Exposure: No TB exposure Child always wear seatbelt? Yes Helmet worn for bicycle/roller blades/skateboard? NO Home Safety Survey: Firearms in the home?: No Daily Activities Dental Dental provider: patient has a dental home Risks: a parent has had a cavity in past 3 years and child has or had a cavity Water source: City water and filtered water Sports physical needed: No Media TV in child's room: No Types of media used: computer and video/dvd/tv School Name of school: [employer] Grade level: 10th School performance: below grade level Schooling concerns? no Academic problems: learning disabilities Activities Minimum of 60 minutes per day of physical activity: Yes Activities: rides bike (helmet advised) and other Organized/ Team sports: none Sleep Sleep concerns: no concerns- sleeps well through night and restless legs Sleep duration (hours): 10 Cardiac risk assessment: ?? Family history (males <55, females <65) of angina (chest pain), heart attack, heart surgeryfor clogged arteries, or stroke: YES, PGF ?? Biological parent(s) with a total cholesterol over 240: no VISION No corrective lenses (H Plus Lens Screening required) Tool used: Hernandez Right eye: 10/10 (20/20) Left eye: 10/12.5 (20/25) Two Line Difference: No Visual Acuity: Pass H Plus Lens Screening: Pass Vision Assessment: normal HEARING Right Ear: [...] db Hearing Acuity: Pass Hearing Assessment: normal QUESTIONS/CONCERNS: None MENSTRUAL HISTORY Normal. Taking OCP and having period every 3 months. PSYCHO-SOCIAL/DEPRESSION General screening: Electronic PSC PSC SCORES 02/28/2018 Inattentive / Hyperactive Symptoms Subtotal 6 Externalizing Symptoms Subtotal 7 (At Risk) Internalizing Symptoms Subtotal 6 (At Risk) PSC - 17 Total Score 19 (Positive) no followup necessary - follows with psychiatry and counseling in her care home setting PROBLEM LIST Patient Active Problem List Diagnosis ??? Chromosomal abnormality ??? Learning disability ??? Anxiety ??? Insomnia ??? Aggression with talk of suicide/homicide ??? Suicidal ideation ??? Mental health disorder MEDICATIONS Current Outpatient Prescriptions Medication Sig Dispense Refill ??? desogestrel-ethinyl estradiol (APRI) 0.15-30 MG-MCG per tablet Take 1 tablet by mouth daily Discard placebo pills for two of three packets for continuous use 84 tablet 1 ??? Ergocalciferol (VITAMIN D) 36239 UNITS CAPS Take 50,000 Units by mouth every 7 days 8 capsule 0 ??? ferrous gluconate (FERGON) 324 (38 Fe) MG tablet Take 1 tablet (324 mg) by mouth 3 times daily (with meals) For 3 months and then recheck labs 100 tablet 2 ??? levonorgestrel-ethinyl estradiol (SEASONALE) 0.15-0.03 MG per tablet Take 1 tablet by mouth daily 84 tablet 3 ??? METFORMIN HCL PO Take 500 mg by mouth 2 times daily ??? QUETIAPINE FUMARATE PO ??? guanFACINE (INTUNIV) 2 MG TB24 24 hr tablet Take 2 mg by mouth At Bedtime 0 ??? naproxen (NAPROSYN) 250 MG tablet Take 1 tablet (250 mg) by mouth 2 times daily (with meals) As needed for headache and achiness (Patient not taking: Reported on 02/28/2018) 20 tablet 0 ??? OLANZapine (ZYPREXA) 5 MG tablet TAKE 1 TABLET BY MOUTH EVERY 8 HOURS NEEDED 0 ??? SERTRALINE HCL PO Take 100 mg by mouth daily ALLERGY Allergies Allergen Reactions ??? Nkda [No Known Drug Allergies] ??? Seasonal Allergies IMMUNIZATIONS Immunization History Administered Date(s) Administered ??? Comvax (HIB/HepB) 2002, 2002, 03/26/2003 ? ? DTAP (<7y) 2002, 2002, 2002, 09/24/2003, 03/29/2007 ??? HEPA 03/30/2006, 09/27/2006 ??? HPV 03/11/2015, 05/28/2015, 10/21/2015 ??? Influenza (H1N1) 07/03/2009 ??? Influenza (IIV3) PF 05/22/2008, 06/10/2009, 04/11/2010, 05/04/2011 ??? Influenza Intranasal Vaccine 05/03/2012 ??? Influenza Intranasal Vaccine 4 valent 05/05/2013, 05/10/2014, 05/28/2015 ??? Influenza Vaccine IM 3yrs+ 4 Valent IIV4 03/30/2016 ??? MMR 03/26/2003, 03/29/2007 ??? Meningococcal (Menactra??) 01/18/2014 ? ? Pneumo Conj 13-V (2010&after) 06/02/2011 ??? Pneumococcal (PCV 7) 2002, 2002, 2002 ??? Poliovirus, inactivated (IPV) 2002, 2002, 2002, 03/29/2007 ??? TDAP Vaccine (Adacel) 01/18/2014 ??? Varicella 03/26/2003, 03/29/2007 HEALTH HISTORY SINCE LAST VISIT No surgery, major illness or injury since last physical exam DRUGS/SEXUALITY not discussed today ROS Constitutional, eye, ENT, skin, respiratory, cardiac, GI, MSK, neuro, and allergy are normal except as otherwise noted. This document serves as a record of the services and decisions personally performed and made by Queta Fritz MD. It was created on her behalf by Sera Singh, a trained medical tech. The creation of this document is based the provider's statements to the medical tech. Sera Singh February 28, 2018 8:30 AM OBJECTIVE: EXAM BP 122/76 (BP Location: Left arm, Patient Position: Chair, Cuff Size: Adult Regular) Pulse 108 Temp 98.4 ??F (36.9 ??C) (Oral) Ht 5' 8 (1.727 m) Wt 186 lb 12.8 oz (84.7 kg) LMP 01/03/2018 SpO2 97% ? No BMI 28.4 kg/m2 94 %ile based on CDC 2-20 Years ikajzba-vmf-xuq data using vitals from 02/28/2018. 97 %ile based on CDC 2-20 Years jtmhah-dah-asb data using vitals from 02/28/2018. 94 %ile based on CDC 2-20 Years BMI-for-age data using vitals from 02/28/2018. Blood pressure percentiles are 85.3 % systolic and 82.8 % diastolic based on the February 2017 AAP Clinical Practice Guideline. This reading is in the elevated blood pressure range (BP >= 120/80). GENERAL: Active, alert, in no acute distress. Pleasant. Well kept. Affect is bright. Mentation has little insight. Clinically obese. SKIN: Clear. No significant rash, abnormal pigmentation [...] -F: Normal female external genitalia, Amadeo stage V. BREASTS: Amadeo stage V. No abnormalities. ASSESSMENT/PLAN: ICD-10-CM 1. Well adolescent visit with abnormal findings Z00.121 PURE TONE HEARING TEST, AIR SCREENING, VISUAL ACUITY, QUANTITATIVE, BILAT BEHAVIORAL / EMOTIONAL ASSESSMENT [49023] CBC with platelets Ferritin Vitamin D Deficiency 2. Intellectual disability F79 OFFICE/OUTPT VISIT,EST,LEVL III 3. Anemia, unspecified type D64.9 CBC with platelets Ferritin ESR: Erythrocyte sedimentation rate OFFICE/OUTPT VISIT,EST,LEVL III 4. Low iron stores R79.0 ferrous gluconate (FERGON) 324 (38 Fe) MG tablet OFFICE/OUTPT VISIT,EST,LEVL III 5. 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 Anxiety F41.9 OFFICE/OUTPT VISIT,EST,LEVL III Discussed growth and development are appropriate for patient's age. Card was given to mother for referral to manager social services Tara Yang. Anticipatory Guidance Reviewed Anticipatory Guidance in patient instructions Preventive Care Plan Immunizations ?? Reviewed, up to date Referrals/Ongoing Specialty care: Ongoing Specialty care by psychiatry See other orders in [facility]. Cleared for sports: Not addressed BMI at 94 %ile based on CDC 2-20 Years BMI-for-age data using vitals from 02/28/2018. OBESITY ACTION PLAN ?? Exercise and nutrition counseling performed Dyslipidemia risk: ?? Dental visit recommended: Yes, Dental home established, continue care every 6 months FOLLOW-UP: ?? in 1 year for a Preventive Care visit Resources HPV and Cancer Prevention: What Parents Should Know What Kids Should Know About HPV and Cancer Goal Tracker: Be More Active Goal Tracker: Less Screen Time Goal Tracker: Drink More Water Goal Tracker: Eat More Fruits and Veggies [place] Child and Teen Checkups (C&TC) Schedule of Age-Related Screening Standards ACUTE/CHRONIC PROBLEMS: For activity/breathing concerns: Mother has concerns with Mahi needing to rest when active. There are no signs of poor cardiac function or asthma. Her mild anemia is not suspected as a cause. Advised that it is likely she is deconditioned. Advised increasing regular activity and getting at least half an hour of exercise a day. A pulmonary function test can be performed if mother feels this is appropriate, but symptoms are notconsistent with asthma. Iron deficiency anemia: Mahi is still a bit anemic. ??Please advise increase in iron to 325 mg three times a day for 3 months and then repeat the labs for this. Labs are ordered and can be done as a nurse only visit. The information in this document, created by the medical tech for me, accurately reflects the services I personally performed and the decisions made by me. I have reviewed and approved this document for accuracy prior to leaving the patient care area. February 28, 2018 8:57 AM Queta Fritz MD [facility] documented in this encounter Plan of Treatment Not on filedocumented as of this encounter Procedures Procedure Name Priority Date/Time Associated Comments Diagnosis VITAMIN D DEFICIENCY Routine 02/28/2018 8:58 AM Well adolescen t Results for this SCREENING CDT visit with abnormal procedur e are in findings the results section. FERRITIN Routine 02/28/2018 8:58 AM Well adolescent Result s for this CDT visit with abnormal procedur e are in findings the results section. CBC WITH PLATELETS Routine 02/28/2018 8:58 AM Well adolescent Results for this CDT visit with abnormal procedur e are in findings the results section. HC SCREENING TEST, Routine 02/28/2018 8:33 AM Well adolescent PURE TONE, AIR ONLY CDT visit with abnormal findings documented in this encounter Results (ABNORMAL) ESR: Erythrocyte sedimentation rate (05/30/2018 8:01 PM PLUG GROWER) athologist Signature Sed Rate 27 (H) 0 - 20 mm/h 05/30/2018 [place] 8:31 PM PLUG GROWER [facility] Specimen Anatomical Collection Method Collection Time Receive d Time (Source) Location / / Volume Laterality Blood specimen 05/30/2018 8:01 PM 018 8:06 (specimen) PLUG GROWER PM PLUG GROWER Queta Fritz MD LAB - BLOOD ORDERABLES Performing Organization Address City/State/ZIP Code Phon e Number [facility] [address] [place], [place] [address] [address] Ferritin (05/30/2018 8:01 PM PLUG GROWER) athologist [facility] Ferritin 32 12 - 150 05/31/2018 [facility] ng/mL 2:[address] [facility] Specimen Anatomical Collection Method Collection Time Receive d Time (Source) Location / / Volume Laterality Blood specimen 05/30/2018 8:01 PM 018 8:06 (specimen) PLUG GROWER PM PLUG GROWER Queta Fritz MD LAB - BLOOD ORDERABLES Performing Organization Address City/State/ZIP Code Phon e Number [facility] [address] [place] [address] (ABNORMAL) CBC with platelets (05/30/2018 8:01 PM PLUG GROWER) [facility] Method Time Signature WBC 9.0 4.0 - 11.0 05/30/2018 [place] 10e9/L 8:24 PM [facility] RBC Count 4.05 3.7 - 5.3 05/30/2018 [place] 10e12/L 8:24 PM [facility] Hemoglobin 10.6 (L) 11.7 - 05/30/2018 [place] 15.7 g/dL 8:24 PM [facility] Hematocrit 32.5 (L) 35.0 - 05/30/2018 [place] 47.0 % 8:24 PM [facility] MCV 80 77 - 100 05/30/2018 [place] fl 8:24 PM [facility] MCH 26.2 (L) 26.5 - 05/30/2018 [place] 33.0 pg 8:24 PM [facility] MCHC 32.6 31.5 - 05/30/2018 [place] 36.5 g/dL 8:24 PM [facility] RDW 13.7 10.0 - 05/30/2018 [place] 15.0 % 8:24 PM [facility] Platelet Count 364 150 - 450 05/30/2018 [place] 10e9/L 8:24 PM [facility] Comment: Reviewed: OK with previous Specimen Anatomical Collection Method Collection Time Receive d Time (Source) Location / / Volume Laterality Blood specimen 05/30/2018 8:01 PM 018 8:06 (specimen) PLUG GROWER PM PLUG GROWER Queta Fritz MD LAB - BLOOD ORDERABLES Performing Organization Address City/State/ZIP Code Phon e Number [facility] [address] [place], [place] [address] [address] Vitamin D Deficiency (02/28/2018 8:58 AM CDT) athologist Signature Vitamin D 48 20 - 75 02/28/2018 [facility] ug/L 5:09 PM CDT [facility] MEDICAL screening [facility] Comment: Season, race, dietary intake, and treatm ent affect the concentration of 52-mgrpujf-Rekyuuj D. Values may decreas e during winter [...] Location / / Volume Laterality Blood specimen 02/28/2018 8:58 AM 018 9:03 (specimen) CDT AM CDT Queta Fritz MD LAB - BLOOD ORDERABLES Performing Organization Address City/State/ZIP Code Phon e Number [facility] [address] [place] [address] [facility] Ferritin (02/28/2018 8:58 AM CDT) P athologist Signature Ferritin 23 12 - 150 02/28/2018 [facility] ng/mL 1:[address] [facility] Specimen Anatomical Collection Method Collection Time Receive d Time (Source) Location / / Volume Laterality Blood specimen 02/28/2018 8:58 AM 018 9:03 (specimen) CDT AM CDT Queta Fritz MD LAB - BLOOD ORDERABLES Performing Organization Address City/State/ZIP Code Phon e Number [facility] [address] [place] [address] (ABNORMAL) CBC with platelets (02/28/2018 8:58 AM CDT) Patholo gist Method Time Signature WBC 7.1 4.0 - 11.0 02/28/2018 [place] 10e9/L 10:10 AM CDT [facility] RBC Count 4.22 3.7 - 5.3 02/28/2018 [facility] 10e12/L 10:10 AM CDT [facility] Hemoglobin 11.0 (L) 11.7 - 02/28/2018 [facility] 15.7 g/dL 10:10 AM CDT [facility] Hematocrit 34.1 (L) 35.0 - 02/28/2018 [facility] 47.0 % 10:10 AM CDT [facility] MCV 81 77 - 100 02/28/2018 [place] fl 10:10 AM CDT [facility] MCH 26.1 (L) 26.5 - 02/28/2018 [facility] 33.0 pg 10:10 AM CDT [facility] MCHC 32.3 31.5 - 02/28/2018 [facility] 36.5 g/dL 10:10 AM CDT [facility] RDW 14.6 10.0 - 02/28/2018 [facility] 15.0 % 10:10 AM CDT [facility] Platelet Count 386 150 - 450 02/28/2018 [place] 10e9/L 10:10 AM CDT [facility] Comment: Results confirmed by repeat alexia t Specimen Anatomical Collection Method Collection Time Receive d Time (Source) Location / / Volume Laterality Blood specimen 02/28/2018 8:58 AM 018 9:03 (specimen) CDT AM CDT Queta Fritz MD LAB - BLOOD ORDERABLES Performing Organization Address City/State/ZIP Code Phon e Number [facility] [address] [place], [place] [address] [address] documented in this encounter Visit Diagnoses Diagnosis Well adolescent visit with abnormal find ings - Primary Intellectual disability Unspecified intellectual disabilities Anemia, unspecified type Low iron stores Other abnormal blood chemistry 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 Anxiety Anxiety state, unspecified documented in this encounter Care Teams Email Engineer Relationship Specialty Start Date End Date Queta Fritz MD PCP - General Pediatrics 12/19/15 05/27/20 [address] [place] [address] [phone] Queta Fritz MD PCP - Assigned PCP 03/04/14 09/20/18 [address] [place] [address] [phone] Queta Fritz MD Assigned PCP 03/04/14 04/12/21 [address] [place] [address] [phone] documented as of this encounter
--- OUTSIDE RECORDS SUMMARY | 2022-04-23 23:46 | XMS_ITS | Encounter Summary ---
:2002 Author Organization [facility] Address [address] [place] [address] Care Team Providers Name Role Phone Queta Fritz MD Primary Care Provider [phone] Queta Fritz MD Unavailable [phone] Queta Fritz MD Unavailable [phone] Reason for Visit Reason Onset Date Comments Forms 09/03/2017 [facility] Encounter Details Date Type Department Care Team Description 09/03/2017 Telephone [facility] Queta Fritz Forms ([facility] Krystle De Jesus MD resources) [address] [place], [place] [address] [place] [address] [phone] (Wo rk) Social History Tobacco Use Types [...] do you attend baptism or Never 2018 restorationist services? Do you [...] at Date Recorded Female 09/04/2021 9:00 PM MEMORY CARE DIRECTOR documented as of this encounter Miscellaneous Notes Telephone Encounter - PacoPerri chavezh - 09/06/2017 2:27 PM CST Form faxed RY CARE DIRECTOR Telephone Encounter - PacoLisa chavezorah - 09/03/2017 1:54 PM CST Creative care resources form in Dr Fritz's basket Fax to [phone] RY CARE DIRECTOR documented in this encounter Plan of Treatment Not on filedocumented as of this encounter Visit Diagnoses Not on filedocumented in this encounter Care Teams Woodworking Bench Carpenter Relationship Specialty Start Date End Date Queta Fritz MD PCP - General Pediatrics 12/19/15 05/27/20 [address] [place] [address] [id number] Queta Fritz MD PCP - Assigned PCP 03/04/14 09/20/18 [address] [place] [address] [id number] Queta Fritz MD Assigned PCP 03/04/14 04/12/21 [address] [place] [phone] documented as of this encounter
--- OUTSIDE RECORDS SUMMARY | 2022-04-23 23:46 | XMS_ITS | Encounter Summary ---
:2002 Author Organization [place] Address [address] [place] [address] Care Team Providers Name Role Phone Brenda Fritz MD Primary Care Provider [phone] Brenda Fritz MD Unavailable [phone] Brenda Fritz MD Unavailable [phone] Reason for Visit Reason Comments Abdominal Pain Lab Only check Iron Forms camp Medication Problem mother wants to know what el se they can do beside taking Miralax daily Encounter Details Date Type Department Care Team Description 08/17/[address] [facility] Brenda Fritz a, unspecified Clinic Krystle De Jesus MD type (Primary Dx) [address] [place] [address] [place] [address] [place] [address] [phone] (Wo rk) Social History Tobacco Use Types [...] do you attend lutheran or Never 2018 restoration services? 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 documented as of this encounter Last Filed Vital Signs Vital Sign Reading Time Taken Comments Blood Pressure 120/79 08/17/2018 3:56 PM FISHING CAPTAIN Pulse 90 08/17/2018 3:56 PM FISHING CAPTAIN Temperature 36.3 ??C (97.4 ??F) 08/17/2018 3:56 PM FISHING CAPTAIN Respiratory Rate 22 08/17/2018 3:56 PM FISHING CAPTAIN Oxygen Saturation 97% 08/17/2018 3:56 PM FISHING CAPTAIN Inhaled Oxygen Concentration - - Weight 79.4 kg (175 lb) 08/17/2018 3:56 PM FISHING CAPTAIN Height 172.7 cm (5' 8) 08/17/2018 3:56 PM FISHING CAPTAIN Body Mass Index 26.61 08/17/2018 3:56 PM FISHING CAPTAIN Body Mass Index Percentile 90.66 % 08/17/2018 3:56 PM CS T Growth Chart: [facility] (Girls, 2-20 Years) documented in this encounter Progress Notes Brenda Fritz MD - 08/17/2018 3:45 PM CST SUBJECTIVE: Beth Morales is a 18 year old female who presents to clinic today with mother because of: Chief Complaint Patient presents with ??? Abdominal Pain ??? Lab Only check Iron ??? [facility] ??? Medication Problem mother wants to know what else they can do beside taking Miralax daily HPI Abdominal Symptoms/Constipation Patient brought a note describing her symptoms. Problem started: 5 days ago Abdominal pain: YES Fever: no Vomiting: YES, more than 4 times on Wednesday Diarrhea: no Constipation: no Frequency of stool: 3-5 times/week Nausea: YES Urinary symptoms - pain or frequency: no Therapies Tried: none Sick contacts: School; LMP: 07/17/2018 Click here for Andrews stool scale. Recall Beth started on iron pills (325 mg 3x daily) on 02/28/18 due to anemia. Mother inquires if she needs to continue with this medication, as it is causing stomach upset. Beth does note that her gums are bleeding when she brushes her teeth. No blood in the stool. Periods occur once every 3 months and occasionally are heavy. Beth was taking Miralax for several months for constipation. She did have some diarrhea with it, so they decreased her dose to counteract this. A few weeks ago Beth felt she was doing very well with her bowel movements, so they stopped use of the Miralax. Recently Beth has started to complain of abdominal pain. She is no longer passing a BM daily. Shereports that her stools are sometimes hard, sometimes soft. She did vomit several times on Wednesday. The day prior she did eat a large amount of [employer]. No fever. She does still complain of some intermittent abdominal pain since then. ROS Constitutional, eye, ENT, skin, respiratory, cardiac, GI, MSK, neuro, and allergy are normal except as otherwise noted. This document serves as a record of the services and decisions personally performed and made by Brenda Fritz MD. It was created on her behalf by Sera Singh, a trained medical staff services coordinator. The creation of this document is based the provider's statements to the medical staff services coordinator. Sera Singh August 17, 2018 4:14 PM PROBLEM LIST Patient Active Problem List [...] Sig Dispense Refill ??? Ergocalciferol (VITAMIN D) 22977 UNITS CAPS Take 50,000 Units by mouth every 7 days 8 capsule 0 ??? ferrous gluconate (FERGON) 324 (38 Fe) MG tablet Take 1 tablet (324 mg) by mouth 3 times daily (with meals) For 3 months and then recheck labs 100 tablet 2 ??? guanFACINE (INTUNIV) 2 MG TB24 24 hr tablet Take 2 mg by mouth At Bedtime 0 ??? levonorgestrel-ethinyl estradiol (SEASONALE) 0.15-0.03 MG per tablet Take 1 tablet by mouth daily 84 tablet 3 ??? METFORMIN HCL PO Take 500 mg by mouth 2 times daily ??? polyethylene glycol (MIRALAX) powder Use 1 capful daily and then may lower to 1/2 capful daily until soft bowel movements and no abdominal pain 510 g 3 ALLERGIES Allergies Allergen Reactions ??? Nkda [No Known Drug Allergies] ??? Seasonal Allergies Reviewed and updated as needed this visit by clinical staff Tobacco Allergies Med Hx Surg Hx Fam Hx Soc Hx Reviewed and updated as needed this visit by Provider OBJECTIVE: BP 120/79 (BP Location: Right arm, Patient Position: Chair, Cuff Size: Adult Regular) Pulse 90 Temp 97.4 ??F (36.3 ??C) (Oral) Resp 22 Ht 5' 8 (1.727 m) Wt 175 lb (79.4 kg) LMP 07/17/2018 SpO2 97% BMI 26.61 kg/m?? 94 %ile based on CDC (Girls, 2-20 Years) Skaqgxy-[id number] data based on Stature recorded on 08/17/2018. 95 %ile based on CDC (Girls, 2-20 Years) [id number] data based on Weight recorded on 08/17/2018. 91 %ile based on CDC (Girls, 2-20 Years) BMI-for-age based on body measurements available as of 08/17/2018. Blood pressure percentiles are 79 % systolic and 91 % diastolic based on the February 2017 [...] no masses or hepatosplenomegaly. Bowel sounds normal. DIAGNOSTICS: No results found for this or any previous visit (from the past 24 hour(s)). ASSESSMENT/PLAN: ICD-10-CM 1. Anemia, unspecified type D64.9 IgA Tissue transglutaminase reji IgA and IgG CRP inflammation Blood Morphology Pathologist Review CBC with platelets differential Reticulocyte Count Fecal Lactoferrin Fecal colorectal cancer screen (FIT) Reviewed cause and natural history of anemia. Karols hemoglobin did drop from 11.0 to 10.6 between March and May 2018. She has been taking her iron supplement 3 times daily for over 5 months. Labs will be repeated today and will be closely evaluated by pathology to determine cause of anemia. Because Beth has been having recurrent abdominal symptoms and troubles with bowels while on the iron supplement she may stop use of the medication for now. She may also continue off of the Miralax for now. I do recommend she try dietary measures or milk of magnesia to help with her constipation. Discussed differential diagnosis of vomiting without fever. Discussed the differential diagnosis of vomiting. In the absence of blood in the stool or vomit and without a suspicious food source the diagnosis is viral enteritis. There is a possibility that Beth's symptoms were due to food she ate the day previous, but given history I do think this is likely due to a viral gastroenteritis. The medical concern in this case is that of maintaining hydration. Fluids should be encouraged. Fluids low in sugar, coupled with chicken broth make good choices when tolerated. Bowel rest may be needed. Pedialyte in as large of amounts as tolerated may be needed for 8-48 hours. FOLLOW UP: If not improving or if worsening The information in this document, created by the medical staff services coordinator for me, accurately reflects the services I personally performed and the decisions made by me. I have reviewed and approved this document for accuracy prior to leaving the patient care area. August 17, 2018 4:49 PM Brenda Fritz MD, MD documented in this encounter Plan of Treatment Not on filedocumented as of this encounter Procedures Procedure Name Priority Date/Time Associated Comments Diagnosis CBC WITH PLATELETS & Routine 08/17/2018 4:54 Anemia, unspecifi ed Results for this DIFFERENTIAL PM FISHING CAPTAIN type procedure are i n the results section. TISSUE TRANSGLUTAMINASE Routine 08/17/2018 4:54 Anemia, unspec ified Results for this REJI IGA AND IGG PM FISHING CAPTAIN type procedure ar e in the results section. RETICULOCYTE COUNT Routine 08/17/2018 4:54 Anemia, unspecified Results for this PM FISHING CAPTAIN type procedure are i n the results section. IGA Routine 08/17/2018 4:54 Anemia, unspecified Resul ts for this PM FISHING CAPTAIN type procedure are i n the results section. CRP INFLAMMATION Routine 08/17/2018 4:54 Anemia, unspecified R esults for this PM FISHING CAPTAIN type procedure are i n the results section. BLOOD MORPHOLOGY Routine 08/17/2018 4:54 Anemia, unspecified R esults for this PATHOLOGIST REVIEW PM FISHING CAPTAIN type procedure are in the results section. documented in this encounter Results Fecal colorectal cancer screen (FIT) (09/21/2018 4:45 PM FISHING CAPTAIN) Analysis Performed At Patho logist Time Signature Occult Blood Negative NEG^Negati 09/22/2018 [facility] FIT ve 4:37 PM [facility] Specimen Anatomical Collection Method Collection Time Receive d Time (Source) Location / / Volume Laterality Stool specimen 09/21/2018 4:45 PM 019 8:05 (specimen) FISHING CAPTAIN PM FISHING CAPTAIN Brenda Fritz MD LAB - STOOLS ORDERABLES Performing Organization Address City/State/ZIP Code Phon e Number [address] Fecal Lactoferrin (09/21/2018 4:45 PM FISHING CAPTAIN) Patholo gist Method Time Signature Fecal Negative NEG^Negat 09/23/2018 [facility] Lactoferrin eunice 12:31 AM [facility] Comment: Test may not be appropriate for immunocompromised patients. Specimen Anatomical Collection Method Collection Time Receive d Time (Source) Location / / Volume Laterality Stool specimen 09/21/2018 4:45 PM 019 8:05 (specimen) FISHING CAPTAIN PM FISHING CAPTAIN Brenda Fritz MD LAB - STOOLS ORDERABLES Performing Organization Address City/State/ZIP Code Phon e Number [address] Reticulocyte Count (08/17/2018 4:54 PM FISHING CAPTAIN) P athologist Signature % Retic 1.1 0.5 - 2.0 08/17/2018 [facility] % 5:31 PM [facility] Absolute Retic 48.5 25 - 95 08/17/2018 [facility] 10e9/L 5:31 PM [facility] Specimen Anatomical Collection Method Collection Time Receive d Time (Source) Location / / Volume Laterality Blood specimen 08/17/2018 4:54 PM 019 4:59 (specimen) FISHING CAPTAIN PM FISHING CAPTAIN Brenda Fritz MD LAB - BLOOD ORDERABLES Performing Organization Address City/State/ZIP Code Phon e Number [place] [address] [place], [place] [address] [facility] [address] [place], [place] [address] [phone] (ABNORMAL) CBC with platelets differential (08/17/2018 4:54 PM FISHING CAPTAIN) [facility] Method Time Signature WBC 7.5 4.0 - 11.0 08/17/2018 [facility] 10e9/L 5:20 PM [facility] RBC Count 4.18 3.7 - 5.3 08/17/2018 [facility] 10e12/L 5:20 PM [facility] Hemoglobin 10.9 (L) 11.7 - 08/17/2018 [facility] 15.7 g/dL 5:20 PM [facility] Hematocrit 33.7 (L) 35.0 - 08/17/2018 [facility] 47.0 % 5:20 PM [facility] MCV 81 77 - 100 08/17/2018 [facility] fl 5:20 PM [facility] MCH 26.1 (L) 26.5 - 08/17/2018 [facility] 33.0 pg 5:20 PM [facility] MCHC 32.3 31.5 - 08/17/2018 [facility] 36.5 g/dL 5:20 PM [facility] RDW 13.3 10.0 - 08/17/2018 [facility] 15.0 % 5:20 PM [facility] Platelet Count 361 150 - 450 08/17/2018 [facility] 10e9/L 5:20 PM [facility] Comment: Reviewed: OK with previous % Neutrophils 64.0 % 08/17/2018 6:11 PM FISHING CAPTAIN [facility] [place] [facility] Comment: Slide reviewed by Pathologist SEE PATHOLOGY REPORT % Lymphocytes 30.0 % 08/17/2018 6:11 PM [facility] Comment: Slide reviewed by Pathologist SEE PATHOLOGY REPORT % Monocytes 3.0 % 08/17/2018 6:11 PM [facility] Comment: Slide reviewed by Pathologist SEE PATHOLOGY REPORT % Eosinophils 1.0 % 08/17/2018 6:11 PM [facility] Comment: Slide reviewed by Pathologist SEE PATHOLOGY REPORT % Basophils 1.0 % 08/17/2018 6:11 PM [facility] Comment: Slide reviewed by Pathologist SEE PATHOLOGY REPORT % Metamyelocytes 1.0 % 08/17/2018 6:[address] [facility] Comment: Slide reviewed by Pathologist SEE PATHOLOGY REPORT Absolute Neutrophil 4.7 1.3 - 7.0 10e9/L 08/17/2018 6: 11 PM [facility] Comment: Slide reviewed by Pathologist SEE PATHOLOGY REPORT Absolute Lymphocytes 2.3 1.0 - 5.8 10e9/L 08/17/2018 6 :11 PM [facility] Comment: Slide reviewed by Pathologist SEE PATHOLOGY REPORT Absolute Monocytes 0.2 0.0 - 1.3 10e9/L 08/17/2018 6:1 1 PM [facility] Comment: Slide reviewed by Pathologist SEE PATHOLOGY REPORT Absolute Eosinophils 0.1 0.0 - 0.7 10e9/L 08/17/2018 6 :11 PM [facility] Comment: Slide reviewed by Pathologist SEE PATHOLOGY REPORT Absolute Basophils 0.1 0.0 - 0.2 10e9/L 08/17/2018 6:1 1 PM [facility] Comment: Slide reviewed by Pathologist SEE PATHOLOGY REPORT Absolute Metamyelocytes 0.1 (H) 0 10e9/L 08/17/2018 6:11 PM [facility] Comment: Slide reviewed by Pathologist SEE PATHOLOGY REPORT Anisocytosis Slight 08/17/2018 6:11 PM [facility] Comment: Slide reviewed by Pathologist SEE PATHOLOGY REPORT Microcytes Present 08/17/2018 6:11 PM [facility] Comment: Slide reviewed by Pathologist SEE PATHOLOGY REPORT Reactive Lymphs Present 08/17/2018 6:[address] [facility] Comment: Slide reviewed by Pathologist SEE PATHOLOGY REPORT Platelet Estimate Automated count 08/17/2018 6:11 PM [facility] confirmed. Platelet [facility] morphology is normal. Comment: Slide reviewed by Pathologist SEE PATHOLOGY REPORT Diff Method Manual Differential 08/17/2018 6:11 PM FISHING CAPTAIN [facility] Comment: Slide reviewed by Pathologist SEE PATHOLOGY REPORT Specimen Anatomical Collection Method Collection Time Receive d Time (Source) Location / / Volume Laterality Blood specimen 08/17/2018 4:54 PM 019 4:59 (specimen) FISHING CAPTAIN PM FISHING CAPTAIN Brenda Fritz MD LAB - BLOOD ORDERABLES Performing Organization Address City/State/ZIP Code Phon e Number [facility] [address] [place], [place] [address] [address] Blood Morphology Pathologist Review (08/17/2018 4:54 PM FISHING CAPTAIN) Component Value Ref Test Analysis Performed At [facility] Range Method Time Signature Copath Patient Name: BETH MORALES Report MR#: [id number] Specimen #: [id number] Collected: 08/17/2018 Received: 08/18/2018 Reported: 08/18/2018 10:11 Ordering Phy(s): BRENDA FRITZ For improved result formatting, select 'View Enhanced Report Format' under Linked Documents section. TEST(S): Peripheral Smear Morphology FINAL DIAGNOSIS: Peripheral blood morphology: - Normocytic hypochromic anemia, mild. COMMENT: The differential diagnosis of normocytic hypochromic anemia includes early iron deficiency and anemia of chronic disease. ??If iron deficiency is demonstrated, t factors, celiac sprue and increased gastrointestinal and reproductive systems blood losses shoul d be investigated. ??Correlation with clinical findings is recommended. Electronically signed out by: Joon Welch M.D. CLINICAL HISTORY: 18 years old female. ??Indication for peripheral blood morph ology: Anemia. PERIPHERAL BLOOD DATA: PERIPHERAL BLOOD DATA (Date:08/17/2018) Patient Value (Reference Range 10-17 year old) 7.5 ?WBC (4.0-11.0 x 10*9/L) 4.18 ? RBC (3.7-5.3 x 10*12/L) 10.9 ? HGB (11.7-15.7 g/dL) 33.7 ? HCT (35.0-47.0 %) 81 ? MCV (77-100fL) 26.1 ? MCH (26.5-33.0 pg) 32.3 ? MCHC (31.5-36.5 g/dL) 13.3 ? RDW (10.0-15.0 %) 361 ? PLT (150-450 x 10*9/L) 1.1 ?Retic (0.5-2.0%) PERIPHERAL BLOOD DIFFERENTIAL (Date: 08/17/2018) (Reference ranges 10-17 year old) Percent 64.0 ??Neutrophils, segmented and bands 30.0 ??Lymphocytes 3.0 ?? Monocytes 1.0 ?? Eosinophils 1.0 ?? Basophils 1.0 ?? Immature granulocytes Absolute 4.7 ?? Neutrophils, segmented and bands ??(1.3 - 7.0 x 10*9/ L) 2.3 ?? Lymphocytes ??(1.0 - 5.8 x 10*9/L) 0.2 ?? Monocytes ??(0 -1.3 x 10*9/L) 0.1 ?? Eosinophils ??(0 - 0.7 x 10*9/L) 0.1 ?? Basophils ??(0 - 0.2 x 10*9/L) PERIPHERAL MORPHOLOGY: ERYTHROCYTES: The hemoglobin is recorded as 10.9 g/dL. ??The erythrocytes are normocytic hypochromic per indices. ??There is no significant anisopoikilocytosis. ??Th ere is no morphologic evidence of hemolysis. LEUKOCYTES: The white blood cell count is recorded as 7500. ??The differential count is within normal limits. The neutrophils, monocytes and lymphocytes show mature morph ology. ?? Reactive lymphoid cells are seen. ??There is no evidence of circulating blasts. PLATELETS: The platelet count is recorded as 361,000. ??The platelets show normal size and granulation. (Dictated by Joon Welch MD 08-18-2018 @ 10:11AM). CPT Codes: A: 03996-JAZG TESTING LAB LOCATION: [address] [place], [place] ??[address] COLLECTION SITE: Client: ??[facility] Location: ??RIPED (R) Specimen Anatomical Collection Method Collection Time Receive d Time (Source) Location / / Volume Laterality Blood specimen 08/17/2018 4:54 PM 019 8:54 (specimen) FISHING CAPTAIN AM FISHING CAPTAIN Brenda Fritz MD LAB - BEAKER AP Performing Organization Address City/State/ZIP Code Phon e Number [place] (ABNORMAL) CRP inflammation (08/17/2018 4:54 PM FISHING CAPTAIN) [facility] Method Time Signature CRP Inflammation 21.0 (H) 0.0 - 8.0 08/18/2018 [place] [facility] mg/L 1:49 PM FISHING CAPTAIN [facility] Specimen Anatomical Collection Method Collection Time Receive d Time (Source) Location / / Volume Laterality Blood specimen 08/17/2018 4:54 PM 019 4:59 (specimen) FISHING CAPTAIN PM FISHING CAPTAIN Brenda Fritz MD LAB - BLOOD ORDERABLES Performing Organization Address [facility] Code Phon e Number [address] Tissue transglutaminase reji IgA and IgG (08/17/2018 4:54 PM FISHING CAPTAIN) [facility] Method Time Signature Tissue <1 <7 U/mL 08/19/2018 [facility] Transglutaminase 11:08 AM [facility] Comment: Negative The tTG-IgA assay has limited utility fo r patients with decreased levels of IgA. Screening for celiac disease should include IgA testing to rule out selective IgA deficiency and to guide se lection and interpretation of serological testing. tTG-IgG testing may be positive in celiac disease patients with IgA deficiency. Tissue Transglutaminase Reji <1 <7 U/mL 08/19/2018 1 1:08 AM [facility] IgG [facility] Comment: Negative Specimen Anatomical Collection Method Collection Time Receive d Time (Source) Location / / Volume Laterality Blood specimen 08/17/2018 4:54 PM 019 4:59 (specimen) FISHING CAPTAIN PM FISHING CAPTAIN Brenda Fritz MD LAB - BLOOD ORDERABLES Performing Organization Address City/[facility]/ZIP Code Phon e Number [address] IgA (08/17/2018 4:54 PM FISHING CAPTAIN) P athologist Signature IGA 72 70 - 380 08/18/2018 [facility] mg/dL 3:31 PM FISHING CAPTAIN [facility] Specimen Anatomical Collection Method Collection Time Receive d Time (Source) Location / / Volume Laterality Blood specimen 08/17/2018 4:54 PM 019 4:59 (specimen) FISHING CAPTAIN PM FISHING CAPTAIN Brenda Fritz MD LAB - BLOOD ORDERABLES Performing Organization Address City/State/ZIP Code Phon e Number [facility] [address] [place] [address] [facility] documented in this encounter Visit Diagnoses Diagnosis Anemia, unspecified type - Primary documented in this encounter Care Teams Professor Of Mathematics Relationship Specialty Start Date End Date Brenda Fritz MD PCP - General Pediatrics 12/19/15 05/27/20 [address] [place] [address] [phone] Brenda Fritz MD PCP - Assigned PCP 03/04/14 09/20/18 [address] [place] [address] [phone] Brenda Fritz MD Assigned PCP 03/04/14 04/12/21 [address] [place] [address] [phone] documented as of this encounter
--- OUTSIDE RECORDS SUMMARY | 2022-04-23 23:46 | XMS_ITS | Encounter Summary ---
:2002 Author Organization [place] Address [address] [place] [address] Care Team Providers Name Role Phone Queta Fritz MD Primary Care Provider [phone] Queta Fritz MD Unavailable [phone] Queta Fritz MD Unavailable [phone] Reason for Visit Reason Comments Abdominal Pain x's 4 weeks. Encounter Details Date Type Department Care Team Description 05/14/2018 Office Visit [facility] Korina, Immanuel Nguyễn, Cons tipation, unspecified constipation type (Primary Dx); Clinic Krystle CORLEY Anxiety [address] [place] [id number] [phone] Social History Tobacco Use Types Packs/Day Years [...] do you attend yazidism or Never 2018 shinto services? Do you belong to any clubs [...] or slept in a retirement (including now)? 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 documented as of this encounter Last Filed Vital Signs Vital Sign Reading Time Taken Comments Blood Pressure 129/78 05/14/2018 11:35 AM CDT Pulse 87 05/14/2018 11:35 AM CDT Temperature 35.9 ??C (96.6 ??F) 05/14/2018 11:35 AM CDT Respiratory Rate 18 05/14/2018 11:35 AM CDT Oxygen Saturation 98% 05/14/2018 11:35 AM CDT Inhaled Oxygen Concentration - - Weight 82.9 kg (182 lb 12.8 oz) 05/14/2018 11:35 AM CDT Height - - Body Mass Index 27.39 04/16/2018 10:37 PM CDT Body Mass Index Percentile 92.67 % 05/14/2018 11:35 AM CDT Growth Chart: [facility] (Girls, 2-20 Years) documented in this encounter Progress Notes Immanuel Hui MD - 05/14/2018 11:30 AM CDT SUBJECTIVE: Mahi Faye is a 18 year old female who presents to clinic today with mother because of: Chief Complaint Patient presents with ??? Abdominal Pain x's 4 weeks. HPI Pt with constipation issues for the past month. Started taking iron supplement for anemia. Then prune juice. Pt doesn't like taking prune juice every day. Anxieties at center and worries about abd pain, taking prune juice and iron. Fixed thoughts about abdomen. ROS No cough or cold. No dysuria PROBLEM LIST Patient Active Problem List Diagnosis [...] Outpatient Prescriptions Medication Sig Dispense Refill ??? Ergocalciferol (VITAMIN D) 69649 UNITS CAPS Take 50,000 Units by mouth [...] 500 mg by mouth 2 times daily ALLERGIES Allergies Allergen Reactions ??? Nkda [No Known Drug Allergies] ??? Seasonal Allergies Reviewed and updated as needed this visit by clinical staff Tobacco Allergies Meds Med Hx Surg Hx Fam Hx Soc Hx Reviewed and updated as needed this visit by Provider OBJECTIVE: BP 129/78 Pulse 87 Temp 96.6 ??F (35.9 ??C) (Oral) Resp 18 Wt 182 lb 12.8 oz (82.9 kg) SpO2 98% BMI 27.39 kg/m2 No height on file for this encounter. 97 %ile based on CDC 2-20 Years [id number] data using vitals from 05/14/2018. 93 %ile based on CDC 2-20 Years BMI-for-age data using weight from 05/14/2018 and height from 04/16/2018. No height on file for this encounter. GENERAL: Active, alert, in no acute distress. SKIN: Clear. No significant rash, abnormal pigmentation or lesions HEAD: Normocephalic. MOUTH/THROAT: Clear. No oral lesions. Teeth intact without obvious abnormalities. NECK: Supple, no masses. LYMPH NODES: No adenopathy LUNGS: Clear. No rales, rhonchi, wheezing or retractions HEART: Regular rhythm. Normal S1/S2. No murmurs. ABDOMEN: Soft, non-tender, not distended, no masses or hepatosplenomegaly. Bowel sounds normal. DIAGNOSTICS: None ASSESSMENT/PLAN: abd pain Constipation. Would finish iron as presribed for duration recommended May discontinue prune juice Prefers miralax. 1 cap daily, then when loose stools, lower to half capful until sx resolved F/u prn FOLLOW UP: If not improving or if worsening Immanuel Hui MD STANT COUNSEL documented in this encounter Nursing Notes Cony Antonio MA - 05/14/2018 11:30 AM CDT BP 129/78 Pulse 87 Temp 96.6 ??F (35.9 ??C) (Oral) Resp 18 Wt 182 lb 12.8 oz (82.9 kg) SpO2 98% BMI 27.39 kg/m2 Patient in with mother for follow up on abdominal pain (see ER visit). Cony Antonio CMA documented in this encounter Plan of Treatment Not on filedocumented as of this encounter Visit Diagnoses Diagnosis Constipation, unspecified constipation t ype - Primary Anxiety Anxiety state, unspecified documented in this encounter Care Teams Detonator Assembler Relationship Specialty Start Date End Date Queta Fritz MD PCP - General Pediatrics 12/19/15 05/27/20 [address] [place] [address] [id number] Queta Fritz MD PCP - Assigned PCP 03/04/14 09/20/18 [address] [place] [address] [phone] Queta Fritz MD Assigned PCP 03/04/14 04/12/21 [address] [place] [address] documented as of this encounter
--- OUTSIDE RECORDS SUMMARY | 2022-04-23 23:46 | XMS_ITS | Encounter Summary ---
:2002 Author Organization [facility] Address [address] [place] [address]26 Care Team Providers Name Role Phone Queta Fritz MD Primary Care Provider [phone] Queta Fritz MD Unavailable [phone] Queta Fritz MD Unavailable [phone] Encounter Details Date Type Department Care Team Description 05/30/[address] [facility] Christopher Fritz [place] MD [address] [place] [address] [place] [address] (Wo rk) Social History Tobacco [...] do you attend islam or Never 2018 shinto services? 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 States someone from the longterm is bringing patient to appointment. Mom wanted to explain the reason for the appointment today. States patient has been having constipation issues and stomach issues since starting the Iron tabs TID x 3 months ago. Went to [place] ER 04-16-18 and was advised to take Miralax. Patient refused and wanted to take prune juice instead. C/o diarrhea on the prune juice. She did start taking Miralax (1-2wks ago). Now c/o very soft stool stools/diarrhea and still c/o stomach pain. Mom states patient is less likely to take liquid but is wondering about Pepto Bismol. Would also like hgb rechecked as its been 3 months since last check. And would like to see patient off the Iron tabs since all of her issues started when she started iron. OCATIONAL/REHABILITATION COUNSELOR documented in this encounter Plan of Treatment Not on filedocumented as of this encounter Visit Diagnoses Not on filedocumented in this encounter Care Teams Rag Sorter Relationship Specialty Start Date End Date Queta Fritz MD PCP - General Pediatrics 12/19/15 05/27/20 [address] [place] [address] Queta Fritz MD PCP - Assigned PCP 03/04/14 09/20/18 [address] [place] [address] Queta Fritz MD Assigned PCP 03/04/14 04/12/21 [address] [place] [address] [phone] documented as of this encounter
--- OUTSIDE RECORDS SUMMARY | 2022-04-23 23:46 | XMS_ITS | Encounter Summary ---
:2002 Author Organization [facility] Address [address] [place] [address] Care Team Providers Name Role Phone Queta Fritz MD Primary Care Provider Queta Fritz MD Unavailable [phone] Queta Fritz MD Unavailable [phone] Reason for Visit Reason Onset Date Comments Patient Request for Note/Letter 07/15/2018 Encounter Details Date Type Department Care Team Description 07/15/2018 Telephone [facility] Queta Fritz nt Request for Clinic Krystle De Jesus MD Note/Letter [address] [place], [place] [address] [place], [place] [phone] (Wo rk) Social History Tobacco Use Types [...] do you attend mormonism or Never 2018 congregational services? 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 Mom states that she needs more specific directions on the Miralax that was prescribed to patient 05/14/18 because assisted is continuing to her 1/2 cap full everyday and mom would like directions to specify that it is as need and based on patient's request, mom states otherwise assisted will continue to give it to her daily. Mom is also wondering if patient could be taken off iron as it has been causing her a lot of issues and wondering when to follow up from last appointment. Per last office visit 05/30/18 note: However, SED rate today was 27, which could indicate a false drop of hemoglobin and iron levels willtherefore need to be rechecked.... ? Routed to primary care provider for review. Please advise, Thank you DESTRUCTIVE TESTING ENGINEER Telephone Encounter - Khadijah Ugalde - 07/15/2018 11:34 AM CST Reason for Call: Other call back Detailed comments: Pts mother Eleanor calling to get a new letter sent. She also wants lab results. Phone Number Patient can be reached at: Cell number on file: Telephone Information: Best Time: any Can we leave a detailed message on this number? YES Call taken on 07/15/2018 at 11:34 AM by Khadijah Ugalde DESTRUCTIVE TESTING ENGINEER documented in this encounter Plan of Treatment Not on filedocumented as of this encounter Visit Diagnoses Not on filedocumented in this encounter Care Teams Snow Plow Tractor Operator Relationship Specialty Start Date End Date Queta Fritz MD PCP - General Pediatrics 12/19/15 05/27/20 [address] [address] Queta Fritz MD PCP - Assigned PCP 03/04/14 09/20/18 [address] [place] [address] [phone] Queta Fritz MD Assigned PCP 03/04/14 04/12/21 [address] [place] [address] [phone] documented as of this encounter
--- OUTSIDE RECORDS SUMMARY | 2022-04-23 23:47 | XMS_ITS | Encounter Summary ---
:2002 Author Organization [facility] Address [address] [place] [address] Care Team Providers Name Role Phone Queta Fritz MD Primary Care Provider [phone] Queta Fritz MD Unavailable [phone] Queta Fritz MD Unavailable [phone] Encounter Details Date Type Department Care Team Description 07/30/2016 Radiant Appointment [facility] Iris Freeman Acute [place] [address] [place] [address] [facility], [address] [place] [address] Social History Tobacco Use Types Packs/Day Years [...] do you attend latter-day or Never 2018 restoration services? 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 documented in this encounter Results XR Ankle Left G/E 3 Views (07/30/2016 4:24 PM RAIL TRACK MAINTAINER) Anatomical Region Laterality Modality Leg, Ankle, Foot Left Computed Radiography Specimen (Source) Anatomical Location Collection Method / Collectio n Time Received Time / Laterality Volume Impressions 07/30/2016 6:00 PM RAIL TRACK MAINTAINER IMPRESSION: No evidence for fracture, dislocation or significant degenerative change of the left ankle. ELIZABETH MOYA MD Narrative 07/30/2016 6:00 PM RAIL TRACK MAINTAINER ANKLE LEFT THREE OR MORE VIEWS ??07/30/2016 4:24 PM COMPARISON: None HISTORY: Pain in left ankle and joints o f left foot FINDINGS: The visualized bones and joint spaces are within normal limits. Procedure Note Elizabeth Moya MD - 07/30/2016Forma tting of this note might be different from the original. ANKLE LEFT THREE OR MORE VIEWS 07/30/2016 4:24 PM COMPARISON: None HISTORY: Pain in left ankle and joints o f left foot FINDINGS: The visualized bones and joint spaces are within normal limits. IMPRESSION: No evidence for fracture, di slocation or significant degenerative change of the left ankle. ELIZABETH MOYA MD Iris Freeman MD IMG DIAGNOSTIC IMAGING ORDER LINDSAY documented in this encounter Visit Diagnoses Diagnosis Acute left ankle pain documented in this encounter Care Teams Electronic Court Recorder Relationship Specialty Start Date End Date Queta Fritz MD PCP - General Pediatrics 12/19/15 05/27/20 [address] [place] [address] Queta Fritz MD PCP - Assigned PCP 03/04/14 09/20/18 [address] [place] [address] Queta Fritz MD Assigned PCP 03/04/14 04/12/21 [address] [place] [address] documented as of this encounter
--- OUTSIDE RECORDS SUMMARY | 2022-04-23 23:47 | XMS_ITS | Encounter Summary ---
:2002 Author Organization [facility] Address [address] [place] [address] Care Team Providers Name Role Phone Queta Fritz MD Primary Care Provider [phone] Queta Fritz MD Unavailable Queta Fritz MD Unavailable [phone] Encounter Details Date Type Department Care Team Description 02/11/2017 Medical Correspondence [facility] HIM Scan, THERAPY OCCUPATIONAL [facility] Non-Provider PHYSICAL SPEECH Health Information ORDER Management-MIKE [address] [place] [address] Social History Tobacco Use Types [...] or relatives? How often do you attend protestant or Never 2018 druze services? Do you belong to any clubs or No 12/07/2018 organizations such as protestant groups, unions, fraternal or athletic groups, or [...] or slept in a detention (including now)? 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
--- OUTSIDE RECORDS SUMMARY | 2022-04-23 23:47 | XMS_ITS | Encounter Summary ---
:2002 Author Organization [facility] Address [address] [place] [address] Care Team Providers Name Role Phone Queta Fritz MD Primary Care Provider [phone] Queta Fritz MD Unavailable [phone] Queta Fritz MD Unavailable [phone] Reason for Visit Reason Comments Chart Review Please Encounter Details Date Type Department Care Team Description 05/05/[address] [facility] Queta Fritz Chart Review Please Care Coordination MD Liza () [address] [place] [address] Social History Tobacco Use Types Packs/Day [...] do you attend advent or Never 2018 sikh services? 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 SW had spoken with pt'smother (Eleanor) the day after she was admitted to [facility]. Plan: Supervisor Paste Mixing will try to reach patient again in 3-5 business days. Joseline Connors, MARGUERITE, REAL TIME TRADER Social Work - Supervisor Paste Mixing [facility] StevenJessica keller documented in this encounter Plan of Treatment Not on filedocumented as of this encounter Visit Diagnoses Not on filedocumented in this encounter Care Teams Heavy Equipment Operator/Paver Relationship Specialty Start Date End Date Queta Fritz MD PCP - General Pediatrics 12/19/15 05/27/20 [address] [place] [address] [id number] Queta Fritz MD PCP - Assigned PCP 03/04/14 09/20/18 [address] [place] [address] 224327 Queta Fritz MD Assigned PCP 03/04/14 04/12/21 [address] [place] [address] [phone] documented as of this encounter
--- OUTSIDE RECORDS SUMMARY | 2022-04-23 23:47 | XMS_ITS | Encounter Summary ---
:2002 Author Organization [facility] Address [address] [place] [address]33 Care Team Providers Name Role Phone Queta Fritz MD Primary Care Provider [phone] Queta Fritz MD Unavailable [phone] Queta Fritz MD Unavailable [phone] Reason for Visit Reason Onset Date Comments Pt. Information/instruction 08/19/2016 Encounter Details Date Type Department Care Team Description 08/19/[address] [facility] Queta Fritz Pt. Clinic Krystle De Jesus MD Information/instructio [address] [place], [place] [address] [place] [address] [phone] (Wo rk) Social History Tobacco Use Types [...] do you attend yarsani or Never 2018 mu-ism services? 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 She wishes to speak with PCP re: pt. Starting tosee pt/family and wishes PCP's input. Please call. R LAB TECHNICIAN documented in this encounter Plan of Treatment Not on filedocumented as of this encounter Visit Diagnoses Not on filedocumented in this encounter Care Teams Metal Model Builder Relationship Specialty Start Date End Date Queta Fritz MD PCP - General Pediatrics 12/19/15 05/27/20 [address] [place] [address] [phone] Queta Fritz MD PCP - Assigned PCP 03/04/14 09/20/18 [address] [place] [address] [phone] Queta Fritz MD Assigned PCP 03/04/14 04/12/21 [address] [place] [address] [phone] documented as of this encounter
--- OUTSIDE RECORDS SUMMARY | 2022-04-23 23:47 | XMS_ITS | Encounter Summary ---
:2002 Author Organization [facility] Address [address] [place] [address]328 Care Team Providers Name Role Phone Queta Fritz MD Primary Care Provider Queta Fritz MD Unavailable [phone] Queta Fritz MD Unavailable [phone] Reason for Visit Reason Onset Date Comments Other 05/25/2016 needs records re: me ds Encounter Details Date Type Department Care Team Description 05/25/2016 Telephone [facility] Queta Fritz Other (needs records Clinic Krystle De Jesus MD re: meds) [address] [place], [place] [address] [place], [place] [phone] (Wo rk) Social History Tobacco Use Types [...] or relatives? How often do you attend adventist or Never 2018 gnosticism services? 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 Call back to Mom. Info provided. CONTROL SERVICE TECHNICIAN documented in this encounter Plan of Treatment Not on filedocumented as of this encounter Visit Diagnoses Not on filedocumented in this encounter Care Teams Ear Specialist Relationship Specialty Start Date End Date Queta Fritz MD PCP - General Pediatrics 12/19/15 05/27/20 [address] [place] [address] [phone] Queta Fritz MD PCP - Assigned PCP 03/04/14 09/20/18 [address] [place] [address] [phone] Queta Fritz MD Assigned PCP 03/04/14 04/12/21 [address] [place] [address] [phone] documented as of this encounter
--- OUTSIDE RECORDS SUMMARY | 2022-04-23 23:47 | XMS_ITS | Encounter Summary ---
:2002 Author Organization [place] Address [facility] [place] [address] Care Team Providers Name Role Phone Queta Fritz MD Primary Care Provider [phone] Queta Fritz MD Unavailable [phone] Queta Fritz MD Unavailable [phone] Reason for Visit Reason Comments Suicidal Increased anxiety and bullie d at school today and acted out and had suicidal thoughts. When police arrive d, she demanded for police to kill her now...shoot...get it over wi th. Wants to hurt certain student at school. Encounter Details Date Type Department Care Team Description 11/25/2016 Emergency [facility] Gutierrez Crystal Temper tantrums (Primary Dx); Emergency Department MD Viv Chromosomal abnormality; [address] [facility] [address] [facility] Learning disability; [place] [address] [place], [place] Aggressive behavior; [phone] Chromosomal abnormality syndrome [phone] (Wo rk) Social History Tobacco Use Types [...] do you attend religion or Never 2018 episcopalian services? Do you [...] or slept in a halfway (including now)? Sex Assigned at Date Recorded Female 09/04/2021 9:00 PM TRANSPORT MEDIC documented as of this encounter Last Filed Vital Signs Vital Sign Reading Time Taken Comments Blood Pressure 129/76 11/25/2016 2:42 PM CDT Pulse 97 11/25/2016 10:56 AM CDT Temperature 36.7 ??C (98 ??F) 11/25/2016 2:42 PM CDT Respiratory Rate 18 11/25/2016 2:42 PM CDT Oxygen Saturation 98% 11/25/2016 2:42 PM CDT Inhaled Oxygen Concentration - - Weight - - Height - - Body Mass Index - - documented in this encounter Discharge Instructions Discharge InstructionsGutierrez Crystal MD - 11/25/2016 2:23 PM CDT Discharge to home with mother continue with outpatient services as discussed. documented in this encounter Medications at Time of Discharge Medication Sig Dispensed Refills Start Date End Date ARIPiprazole (ABILIFY) 5 Take 1.5 tablets (7.5 45 tablet 0 03/20/2016 02/01/2017 MG tabletIndications: mg) by mouth At Mental health disorder Bedtime drospirenone-ethinyl Take 1 tablet by 84 tablet 0 7 02/01/2017 estradiol (ESPERANZA) 3-0.02 mouth daily Discard MG per the placebo pills and tabletIndications: PMS take contiuously (premenstrual syndrome), Acne vulgaris Ergocalciferol (VITAMIN Take 50,000 Units by 8 capsule 0 02/03/2019 D) 55894 UNITS mouth every 7 days CAPSIndications: Vitamin D deficiency guanFACINE (INTUNIV) 2 Take 2 mg by mouth At 0 08/23/2018 MG TB24 24 hr tablet Bedtime guanFACINE (TENEX) 1 MG Use 1-2 tablets at 60 tablet 0 01/201702/01/2017 tabletIndications: about 7:30 pm Oppositional disorder OLANZapine (ZYPREXA) 5 TAKE 1 TABLET BY 0 016 05/14/2018 MG tablet MOUTH EVERY 8 HOURS NEEDED risperiDONE (RISPERDAL) TAKE 1/2 TABLET BY 2 06/1902/01/2017 1 MG tablet MOUTH EVERY MORNING AND 1 TABLET IN THE EVENING documented as of this encounter ED Notes Quinn Arthur - 11/25/2016 11:40 AM CDT Patient states to staff I don't want to go to [facility], that place gives me a lot of anxiety. I don't want to go upstairs either, I don't get along with the kids or staff up there. Sue England RN - 11/25/2016 11:04 AM CDT Bed: [facility] Expected date: 11/25/16 Expected time: 10:35 AM Means of arrival: Ambulance Comments: [facility] [address] 16 Y F SI Gutierrez Crystal MD - 11/25/2016 10:51 AM CDT History Chief Complaint Patient presents with ??? Suicidal Increased anxiety and bullied at school today and acted out and had suicidal thoughts. When police arrived, she demanded for police to kill her now...shoot...get it over with. Wants to hurt certain student at school. HPI Mahi Faye is a 16 year old female who was brought to the emergency room from school with increased anxiety and making suicidal statements. Patient had been having conflicts with specific female student in her special ed class. Patient has chromosomal abnormalities and learning disabilities that have her placed and the special ed program she states that she has a very difficult time getting along with the people in the program. Patient states that she made a statement about suicide but did not have any intent. She states dates that she still remains very angry with the specific student thatshe had a conflict with. I have reviewed the Medications, Allergies, Past Medical and Surgical History, and Social History inthe [place] system. PERSONAL MEDICAL HISTORY Past Medical History: Diagnosis Date ??? 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 CONGEN URETHRAL STENOSIS 12/16/2005 ??? 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 Tonsillar abscess, S/P drainage 07/16/2014 PAST SURGICAL HISTORY Past Surgical History: Procedure Laterality Date ??? HC CYSTOURETHROSCOPY 05/04/2005 Cysto and urethral dilation. ??? INCISION AND DRAINAGE TONSIL, COMBINED 2013 under general anesthesia FAMILY HISTORY Family History Problem Relation Age of Onset ??? CANCER Paternal Grandfather lung ??? Anesthesia Reaction Negative ??? Genetic Disorder Father ALS SOCIAL HISTORY Social History Substance Use Topics ??? Smoking status: Never Smoker ??? Smokeless tobacco: Never Used Comment: no smokers in household ??? Alcohol use No MEDICATIONS No current facility-administered medications for this encounter. Current Outpatient Prescriptions Medication ??? guanFACINE (INTUNIV) 2 MG TB24 24 hr tablet ??? risperiDONE (RISPERDAL) 1 MG tablet ??? OLANZapine (ZYPREXA) 5 MG tablet ??? guanFACINE (TENEX) 1 MG tablet ??? drospirenone-ethinyl estradiol (ESPERANZA) 3-0.02 MG per tablet ??? ARIPiprazole (ABILIFY) 5 MG tablet ??? Ergocalciferol (VITAMIN D) 58709 UNITS CAPS ALLERGIES Allergies Allergen Reactions ??? Nkda [No Known Drug Allergies] ??? Seasonal Allergies Review of Systems Constitutional: Negative for fever. Respiratory: Negative for shortness of breath. Cardiovascular: Negative for chest pain. Gastrointestinal: Negative for abdominal pain. Psychiatric/Behavioral: Positive for agitation and behavioral problems. Negative for suicidal ideas.The patient is nervous/anxious. All other systems reviewed and are negative. Physical Exam BP: 126/62 Pulse: 97 Heart Rate: 92 Temp: 98.4 ??F (36.9 ??C) Resp: 16 SpO2: 100 % Physical Exam Constitutional: She is oriented to person, place, and time. No distress. HENT: Head: Atraumatic. Mouth/Throat: Oropharynx is clear and moist. No oropharyngeal exudate. Eyes: Pupils are equal, round, and reactive to light. No scleral icterus. Cardiovascular: Normal heart sounds and intact distal pulses. Pulmonary/Chest: Breath sounds normal. No respiratory distress. Abdominal: Soft. Bowel sounds are normal. There is no tenderness. Musculoskeletal: She exhibits no edema or tenderness. Neurological: She is alert and oriented to person, place, and time. She has normal reflexes. No cranial nerve deficit. She exhibits normal muscle tone. Coordination normal. Skin: Skin is warm. No rash noted. She is not diaphoretic. Psychiatric: Her mood appears anxious. She is agitated. She expresses impulsivity. She expresses no suicidal ideation. ED Course ED Course Procedures Patient was seen by the manager harbor please refer to their report. Critical Care time: none Labs Ordered and Resulted from Time of ED Arrival Up to the Time of Departure from the ED HCG QUALITATIVE URINE DRUG ABUSE SCREEN 6 CHEM DEP URINE ([facility]) Assessments & Plan (with Medical Decision Making) I have reviewed the nursing notes. I have reviewed the findings, diagnosis, plan and need for follow up with the patient. Patient with underlying chromosomal abnormality as well as a long-term during learning disability here with aggressive behaviors at school patient will be returning back to her halfway and will follow up with her primary M.D. and continue with her outpatient services. Final diagnoses: Chromosomal abnormality Learning disability Aggressive behavior 11/25/2016 [facility], EMERGENCY DEPARTMENT Gutierrez Crystal MD 11/26/16 1528 documented in this encounter Plan of Treatment Not on filedocumented as of this encounter Procedures Procedure Name Priority Date/Time Associated Comments Diagnosis HCG QUALITATIVE URINE STAT 11/25/2016 12:06 Re sults for this PM CDT procedure are i n the results section. DRUG ABUSE SCREEN 6 Routine 11/25/2016 12:06 Resu lts for this CHEM DEP URINE ([facility]) PM CDT proced ure are in the results section. documented in this encounter Results Drug abuse screen 6 urine (chem dep) (11/25/2016 12:06 PM CDT) Component Value Ref Test Analysis Performed At [facility] Range Method Time Signature Amphetamine Qual Negative NEG [place] Urine Cutoff for a negative amphetamine is 500 ng/mL or less. [facility] Barbiturates Qual Negative NEG [place] Urine Cutoff for a negative barbiturate is 200 ng/mL or less. [facility] Benzodiazepine Negative [facility] Qual Urine Cutoff for a negative benzodiazepine is 200 ng/mL or less. [facility] Cannabinoids Qual Negative [facility] Urine Cutoff for a negative cannabinoid is 50 ng/mL or less. [facility] Cocaine Qual Negative [facility] Urine Cutoff for a negative cocaine is 300 ng/mL or less. [facility] Ethanol Qual Negative NEG [place] Urine Cutoff for a negative urine ethanol is 0.05 g/dL or less [facility] Opiates Negative NEG [place] Qualitative Urine Cutoff for a negative opiate is 300 ng/mL or less. [facility] Specimen Anatomical Collection Method Collection Time Receive d Time (Source) Location / / Volume Laterality Urine specimen URINE SPECIMEN / 11/25/2016 12:06 11/25 (specimen) Unknown PM CDT 12:34 PM CDT Gutierrez Crystal MD LAB - URINE ORDERABLES Performing Organization Address [facility] Phon e Number [address] [address] [facility] HCG qualitative urine (11/25/2016 12:06 PM CDT) Analysis Performed At Patho logist Time Signature HCG Qual Urine Negative NEG [facility] Specimen Anatomical Collection Method Collection Time Receive d Time (Source) Location / / Volume Laterality Urine specimen URINE SPECIMEN / 11/25/2016 12:06 11/25 (specimen) Unknown PM CDT 12:34 PM CDT Gutierrez Crystal MD LAB - URINE ORDERABLES Performing Organization Address City/[facility] Phon e Number [address] [address] [facility] documented in this encounter Visit Diagnoses Diagnosis Temper tantrums - Primary Undersocialized conduct disorder, unaggr essive type, unspecified 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 Learning disability Other specific developmental learning di fficulties Aggressive behavior 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
--- OUTSIDE RECORDS SUMMARY | 2022-04-23 23:47 | XMS_ITS | Encounter Summary ---
:2002 Author Organization [place] Address [address] [place] [address] Care Team Providers Name Role Phone Queta Fritz MD Primary Care Provider Queta Fritz MD Unavailable [phone] Queta Fritz MD Unavailable [phone] Reason for Visit Reason Onset Date Comments Forms 02/10/2017 Therapy OPS Encounter Details Date Type Department Care Team Description 02/10/2017 Telephone [facility] Queta Fritz (Therapy OPS) Clinic Krystle De Jesus MD [address] [place], [place] [address] [place], [place] [address] (Wo rk) Social History Tobacco Use Types [...] do you attend hinduism or Never 2018 worship services? 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 Marline Lund MA Telephone Encounter - Leti Holder - 02/10/2017 2:19 PM CDT Therapy OPS form in Dr Fritz's basket Fax to [phone] documented in this encounter Plan of Treatment Not on filedocumented as of this encounter Visit Diagnoses Not on filedocumented in this encounter Care Teams Director Specialty Relationship Specialty Start Date End Date Queta Fritz MD PCP - General Pediatrics 12/19/15 05/27/20 [address] [place] [phone] Queta Fritz MD PCP - Assigned PCP 03/04/14 09/20/18 [address] [place] [address] [phone] Queta Fritz MD Assigned PCP 03/04/14 04/12/21 [address] [place] [address] documented as of this encounter
--- OUTSIDE RECORDS SUMMARY | 2022-04-23 23:47 | XMS_ITS | Encounter Summary ---
:2002 Author Organization [place] Address [facility] [place] [address] Care Team Providers Name Role Phone Queta Fritz MD Primary Care Provider [phone] Queta Fritz MD Unavailable [phone] Queta Fritz MD Unavailable [phone] Reason for Visit Reason Comments Clinic Care Coordination - Follow-up Encounter Details Date Type Department Care Team Description 08/27/2016 Care Coordination [facility] Queta Fritz [facility] Care Care Coordination MD Liza Coordination - [address] [place] [address] [address] Follow-up ( ) [address] [phone] Social History Tobacco Use Types Packs/Day Years [...] do you attend congregation or Never 2018 restoration services? Do you [...] or slept in a fdc (including now)? 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 last evening from [facility]. Eleanor stated that she was waiting to hear from the psychiatrist and social work from [facility]. Eleanor stated that pt is suppose to start therapy at [facility] and Eleanor (and pt) signed a release of information for [facility] to talk to [facility]. SW updated PCP on the phone conversation with Eleanor. Eleanor stated that she would continue to update PCP and SW as needed. Plan: Phlebotomist Prn will try to reach patient again in 10-14 business days. Joseline Connors, MARGUERITE, SUPERVISOR FILES Social Work - [facility]lebotomist [facility] AND M SUPERVISOR documented in this encounter Plan of Treatment Not on filedocumented as of this encounter Visit Diagnoses Not on filedocumented in this encounter Care Teams Laminator Preforms Relationship Specialty Start Date End Date Queta Fritz MD PCP - General Pediatrics 12/19/15 05/27/20 [address] [place] [address] Queta Fritz MD PCP - Assigned PCP 03/04/14 09/20/18 [address] [place] [address] Queta Firtz MD Assigned PCP 03/04/14 04/12/21 [address] [place] [address] documented as of this encounter
--- OUTSIDE RECORDS SUMMARY | 2022-04-23 23:47 | XMS_ITS | Encounter Summary ---
:2002 Author Organization [place] Address [address] [place] [address] Care Team Providers Name Role Phone Queta Fritz MD Primary Care Provider [phone] Queta Fritz MD Unavailable [phone] Queta Fritz MD Unavailable [phone] Reason for Visit Reason Comments Chart Review Please Encounter Details Date Type Department Care Team Description 05/25/2016 Care Coordination [facility] Queta Fritz Chart Review Please Care Coordination MD Liza () [address] [place] [phone] Social History Tobacco Use Types [...] do you attend alevism or Never 2018 holiness services? 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 in [place]. Plan: Dock Builder will try to reach patient again in 5-7 business days. Joseline Connors, DIRECTOR PATIENT ACCOUNTING, FOREIGN LANGUAGES DEPARTMENT CHAIR Social Work - Dock Builder [facility] [place] keller LSCOPE OPERATOR documented in this encounter Plan of Treatment Not on filedocumented as of this encounter Visit Diagnoses Not on filedocumented in this encounter Care Teams Security Compliance Engineer Relationship Specialty Start Date End Date Queta Fritz MD PCP - General Pediatrics 12/19/15 05/27/[address] [place] [phone] Queta Fritz MD PCP - Assigned PCP 03/04/14 09/20/[address] [place] [phone] Queta Fritz MD Assigned PCP 03/04/14 04/12/[address] [place] [address] documented as of this encounter
--- OUTSIDE RECORDS SUMMARY | 2022-04-23 23:47 | XMS_ITS | Encounter Summary ---
:2002 Author Organization [place] Address [facility] [place] [address] Care Team Providers Name Role Phone Queta Fritz MD Primary Care Provider [phone] Queta Fritz MD Unavailable [phone] Queta Fritz MD Unavailable [phone] Reason for Visit Reason Comments Clinic Care Coordination - Follow-up Encounter Details Date Type Department Care Team Description 10/21/2016 Care Coordination [facility] Queta Fritz [facility] Care Care Coordination MD Liza Coordination - [address] [place] [address] [address] Follow-up ( ) [address] [phone] Social History Tobacco Use Types Packs/Day Years [...] do you attend jewish or Never 2018 amish services? 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 Sw has left message on voicemail with call back information and requested return call. Plan: Environmental Sustainability Manager mailed out care coordination introduction letter on 10/29/16. Environmental Sustainability Manager will try to reach patient again in 5-7 business days. MARGUERITE Falcon, COURT Social Work - Environmental Sustainability Manager [facility], Steven, and Opp Joseline Connors - 10/21/2016 10:55 AM CDT Clinic Care Coordination Contact [facility]/Voicemail Referral Source: Care Team Clinical Data: Environmental Sustainability Manager Outreach Outreach attempted x 2. Left message on voicemail for pt's mother (Eleanor) with call back informationand requested return call. Plan: Environmental Sustainability Manager will try to reach patient again in 5-7 business days. MARGUERITE Falcon, COURT Social Work - Environmental Sustainability Manager [facility], [place], and Opp documented in this encounter Plan of Treatment Not on filedocumented as of this encounter Visit Diagnoses Not on filedocumented in this encounter Care Teams Implementation Architect Relationship Specialty Start Date End Date Queta Fritz MD PCP - General Pediatrics 12/19/15 05/27/20 [address] [place] [address] Queta Fritz MD PCP - Assigned PCP 03/04/14 09/20/18 [address] [place] [address] Queta Fritz MD Assigned PCP 03/04/14 04/12/[address] [address] documented as of this encounter
--- OUTSIDE RECORDS SUMMARY | 2022-04-23 23:47 | XMS_ITS | Encounter Summary ---
:2002 Author Organization [place] Address [facility] [place] [address] Care Team Providers Name Role Phone Queta Fritz MD Primary Care Provider [phone] Queta Fritz MD Unavailable [phone] Queta Fritz MD Unavailable [phone] Reason for Visit Reason Comments Clinic Care Coordination - Follow-up Encounter Details Date Type Department Care Team Description 09/29/2016 Care Coordination [facility] Queta Fritz [facility] Care Care Coordination MD Liza Coordination - [address] [place] [address] [address] Follow-up ( ) [address] [phone] Social History Tobacco Use Types Packs/Day Years [...] do you attend protestant or Never 2018 muslim services? 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 for inpatient hospitalization. Pt was d/c from [facility] on 09/07/16 and re- admitted on 09/14/16. Pt had the title clerk called 4 of the 5 days and then an ambulance called 3 of the 5 days during her time at home. Eleanor stated that she refused to take pt home and thus she was placed at [facility] with the goal of getting her residential placement until she can get into [facility] in November 2016. Eleanor stated that she contacted the [facility] Care Office ([place]) to get support for pt to not return to home prior to going to [facility]. Pt wasreportedly started on Zoloft to help with her anxiety as she was told that she would not be able to r eturn to home. Pt was given Ketamine by the police to help with her behaviors, per Eleanor. Plan: Antique Finisher will try to reach patient again in 2-3 weeks. MARGUERITE Falcon, HEAD LOFT WORKER Social Work - Antique Finisher [facility] k[facility] documented in this encounter Plan of Treatment Not on filedocumented as of this encounter Visit Diagnoses Not on filedocumented in this encounter Care Teams Toy Assembler Wood Relationship Specialty Start Date End Date Queta Fritz MD PCP - General Pediatrics 12/19/15 05/27/20 [address] [place] [address] Queta Fritz MD PCP - Assigned PCP 03/04/14 09/20/18 [address] [place] [phone] Queta Fritz MD Assigned PCP 03/04/14 04/12/21 [address] [place] [address] documented as of this encounter
--- OUTSIDE RECORDS SUMMARY | 2022-04-23 23:47 | XMS_ITS | Encounter Summary ---
:2002 Author Organization [place] Address [facility] [place] [address] Care Team Providers Name Role Phone Queta Fritz MD Primary Care Provider [phone] Queta Fritz MD Unavailable [phone] Queta Fritz MD Unavailable [phone] Reason for Visit Reason Comments Clinic Care Coordination - Follow-up Encounter Details Date Type Department Care Team Description 09/15/2016 Care Coordination [facility] Queta Fritz [facility] Care Care Coordination MD Liza Coordination - [address] [place] [address] [address] Follow-up ( ) [address] [phone] Social History Tobacco Use Types Packs/Day Years [...] do you attend faith or Never 2018 bahai services? Do you [...] or slept in a custodial (including now)? 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 Plan: Special Education Kindergarten Teacher will try to reach patient again in 10-14 business days. Joseline Connors, BUILDING APPRAISER, BINDERY PRODUCTION MANAGER Social Work - Special Education Kindergarten Teacher [facility] MeadowJessica keller CTOR OF GUIDANCE IN PUBLIC SCHOOLS documented in this encounter Plan of Treatment Not on filedocumented as of this encounter Visit Diagnoses Not on filedocumented in this encounter Care Teams Plate Grainer Apprentice Relationship Specialty Start Date End Date Queta Fritz MD PCP - General Pediatrics 12/19/15 05/27/20 [address] [place] [address] Queta Fritz MD PCP - Assigned PCP 03/04/14 09/20/18 [address] [place] [address] Queta Fritz MD Assigned PCP 03/04/14 04/12/21 [address] [place] [address] documented as of this encounter
--- OUTSIDE RECORDS SUMMARY | 2022-04-23 23:47 | XMS_ITS | Encounter Summary ---
:2002 Author Organization [place] Address [address] [place] [address] Care Team Providers Name Role Phone Queta Fritz MD Primary Care Provider [phone] Queta Fritz MD Unavailable [phone] Queta Fritz MD Unavailable [phone] Reason for Visit Reason Onset Date Comments Results 07/31/2016 Ankle X-ray Encounter Details Date Type Department Care Team Description 07/31/2016 Telephone [facility] Irsi Freeman Results (Ankle X-ray) Clinic Jian Calixto MD [address] [place] [address], [address] [place] [address] [place] [address] [place], [place] [phone] (Wo rk) [address] [phone] Social History Tobacco Use Types Packs/Day Years [...] or relatives? How often do you attend yazidi or Never 2018 christian services? 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 Informed of note below: Notes Recorded by Iris Freeman MD on 07/31/2016 at 10:11 AM Please call patient, no ankle fracture. She only has a mild sprain. Follow up if not improving in 1 week. Lavonne Crawford, RN, BSN, PHN RVENTIONAL RADIOLOGY TECH documented in this encounter Plan of Treatment Not on filedocumented as of this encounter Visit Diagnoses Not on filedocumented in this encounter Care Teams Senior Informatica Developer Relationship Specialty Start Date End Date Queta Fritz MD PCP - General Pediatrics 12/19/15 05/27/20 [address] [employer] [phone] Queta Fritz MD PCP - Assigned PCP 03/04/14 09/20/[address] [place] [address] [phone] Queta Fritz MD Assigned PCP 03/04/14 04/12/[address] [place] [address] [phone] documented as of this encounter
--- OUTSIDE RECORDS SUMMARY | 2022-04-23 23:47 | XMS_ITS | Encounter Summary ---
:2002 Author Organization [place] Address [address] [place] [address] Care Team Providers Name Role Phone Queta Fritz MD Primary Care Provider Queta Fritz MD Unavailable [phone] Queta Fritz MD Unavailable [phone] Reason for Visit Reason Onset Date Comments [facility] 04/23/2016 Encounter Details Date Type Department Care Team Description 04/23/2016 Telephone [facility] Queta Fritz [facility] Krystle De Jesus MD [address] [place], [place] [address] [place], [place] 597167 (Wo rk) Social History Tobacco Use Types [...] do you attend jew or Never 2018 hoahaoism services? 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 Information given to Dr. Fritz in person and in her in basket. documented in this encounter Plan of Treatment Not on filedocumented as of this encounter Visit Diagnoses Not on filedocumented in this encounter Care Teams Investigative Agent Relationship Specialty Start Date End Date Queta Fritz MD PCP - General Pediatrics 12/19/15 05/27/20 [address] [place] [address] [phone] Queta Fritz MD PCP - Assigned PCP 03/04/14 09/20/18 [address] [place] [address] [phone] Queta Fritz MD Assigned PCP 03/04/14 04/12/21 [address] [place] [address] [phone] documented as of this encounter
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
--- OUTSIDE RECORDS SUMMARY | 2022-04-23 23:47 | XMS_ITS | Encounter Summary ---
:2002 Author Organization [place] Address [address] [place] [address] Care Team Providers Name Role Phone Queta Fritz MD Primary Care Provider [phone] Queta Fritz MD Unavailable [phone] Queta Fritz MD Unavailable [phone] Reason for Visit Reason Onset Date Comments Call Back 07/23/2016 Encounter Details Date Type Department Care Team Description 07/23/2016 Telephone [facility] Christopher Fritz, Call Back Krystle CORLEY [address] [place] [address] [place] [address] (Wo rk) Social History Tobacco [...] do you attend sikh or Never 2018 sabianist services? Do you belong to any clubs [...] slept in a skilled nursing (including now)? Sex Assigned at Date Recorded Female 09/04/2021 9:00 PM PANEL MAKER documented as of this encounter Miscellaneous Notes Telephone Encounter - Foslien, Queta Liza, MD - 07/25/2016 1:27 PM PANEL MAKER Out from Jun Guanfacine ext release 3 mg Risperdal 0.5 mg increased to 1 mg pm now twice a day 6 mg melatonin Restrained at times IM needed at time Zyprexa as needed Residential treatment [facility] Home support ? On the way. Bridging program in the home next week has an appoint for this Not on the suzie Mother looking for help with her oppositionality that does not make her so tired. Once she needs it (trouble with behavior) Mahi will not take the zyprexa so it has not been helpful at all. Plan: Continue to work with transitional living specialist and the psychiatrists. Move the Guanfacine ER 2 mg to the morning and continue all the other medications. Add in regular guanfacine 1-2 mg at night if needed to aid sleep. Inositol may help quite a bit as well. 2000 mg 2-3 x a day powder in cool liquid She is slightly anemic so her iron stores are likely very low. Iron is very important for normal brain function. Increase iron in the diet, consider Floradix 20 ml twice a day The Suzie will help to keep iron levels up and may help stabilize her mood. L MAKER Telephone Encounter - Celine Stewart RN - 07/23/2016 9:01 AM CST Mom calling and requests to speak with PCP. Pt has been having problems with anxiety. Pt has a medication that she can use prn that was prescribed by a psychiatrist but it knocks her out. So mom doesn't like to give her that. Her case coordinator is trying to keep patient at home but they are looking at a assisted as well. Pt has been seeing psychiatry on a regular basis. Mom is aware that an appointment is may be needed, but she prefers to talk to PCP via phone first to discuss patient. Please call when able. 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
--- OUTSIDE RECORDS SUMMARY | 2022-04-23 23:47 | XMS_ITS | Encounter Summary ---
:2002 Author Organization [place] Address [address] [place] [address]. [place] [address] Care Team Providers Name Role Phone Queta Fritz MD Primary Care Provider Queta Fritz MD Unavailable [phone] Queta Fritz MD Unavailable [phone] Reason for Visit Reason Comments Urgent Care Eye Problem Encounter Details Date Type Department Care Team Description 06/16/2017 Office Visit [facility] Moiz Colindres, Cornea l abrasion, Urgent Care [place] unspecified [address] [address] [address] [address] laterality, initial [place], [place] encounter (Primary Dx) [phone] [phone] Social History Tobacco Use Types Packs/Day Years [...] or relatives? How often do you attend confucianism or Never 2018 buddhist services? Do you belong to any clubs or No 12/07/2018 organizations such as confucianism groups, unions, fraternal or athletic groups, or [...] at Date Recorded Female 09/04/2021 9:00 PM NATURALIST documented as of this encounter Last Filed Vital Signs Vital Sign Reading Time Taken Comments Blood Pressure - - Pulse 101 06/16/2017 4:31 PM NATURALIST Temperature 36.7 ??C (98.1 ??F) 06/16/2017 4:31 PM NATURALIST Respiratory Rate 18 06/16/2017 4:31 PM NATURALIST Oxygen Saturation 100% 06/16/2017 4:31 PM NATURALIST Inhaled Oxygen Concentration - - Weight 76.2 kg (168 lb) 06/16/2017 4:31 PM NATURALIST Height - - Body Mass Index - - documented in this encounter Progress Notes Moiz Colindres MD - 06/16/2017 5:00 PM CST SUBJECTIVE: Mahi Faye is a 17 year old female who presents to clinic today for the following health issues: Corner of bag of chips scratched left eye, hard to open. OBJECTIVE: She appears well, vitals are normal. Corneal abrasion noted right eye over the center of the. KIN, fundi normal. Visual acuity per Nurse's note. ASSESSMENT: Corneal abrasion PLAN: Ciloxan ophthalmic drops. follow up appointment given in 24 hours for re- examination of the injury. Ibuprofen 3 times a day over the next several days Level 4 visit; 25 minutes in exam and counseling . Greater than 50% of the time is spent in counseling in regards to the potential for corneal abrasion, corneal abrasion its treatment and the necessityfor follow-up. Warning signs of corneal infection were also discussed. RALIST documented in this encounter Nursing Notes Fatemeh Causey MA - 06/16/2017 5:00 PM CST Chief Complaint Patient presents with ??? Urgent Care ??? Eye Problem Initial Pulse 101 Temp 98.1 ??F (36.7 ??C) (Oral) Resp 18 Wt 168 lb (76.2 kg) SpO2 100% Estimated body mass index is 25.92 kg/(m^2) as calculated from the following: Height as of 02/01/17: 5' 7.5 (1.715 m). Weight as of 02/01/17: 168 lb (76.2 kg). Medication Reconciliation: complete Fatemeh Causey CMA RALIST documented in this encounter Plan of Treatment Not on filedocumented as of this encounter Visit Diagnoses Diagnosis Corneal abrasion, unspecified laterality , initial encounter - Primary documented in this encounter Care Teams Carpet Inspector Relationship Specialty Start Date End Date Queta Fritz MD PCP - General Pediatrics 12/19/15 05/27/20 [address] [place] [address] [phone] Queta Fritz MD PCP - Assigned PCP 03/04/14 09/20/18 [address] [place] [address] [phone] Queta Fritz MD Assigned PCP 03/04/14 04/12/21 [address] [place] [address] [phone] documented as of this encounter
--- OUTSIDE RECORDS SUMMARY | 2022-04-23 23:47 | XMS_ITS | Encounter Summary ---
:2002 Author Organization [place] Address [facility] [place] [address] Care Team Providers Name Role Phone Queta Fritz MD Primary Care Provider [phone] Queta Fritz MD Unavailable [phone] Queta Fritz MD Unavailable [phone] Reason for Visit Reason Comments Clinic Care Coordination - Follow-up Encounter Details Date Type Department Care Team Description 07/08/2016 Care Coordination [facility] Queta Fritz [facility] Care Care Coordination MD Liza Coordination - [address] [place] [address] [address] Follow-up ( ) [address] [phone] Social History Tobacco Use Types Packs/Day Years [...] do you attend lutheran or Never 2018 pentecostalism services? Do you [...] at Date Recorded Female 09/04/2021 9:00 PM GARBAGE PERSON documented as of this encounter Progress Notes Joseline Connors - 07/08/2016 3:31 PM CST Clinic Care Coordination Contact Care Team Conversations Spoke to pt's mother (Eleanor) who stated that pt needs to get into see a psychiatrist. Eleanor stated that pt will see a therapist on 07/21/16 and psychiatrist on 08/18/16. Eleanor stated that she is looking for a sooner appointment. SW is not able to get pt into a sooner appointment. Pt was d/c from [facility] over the weekend had was seen by a behavioral health care coordinator on 07/06/16 and he was suppose to come back yesterday but the pt ran out of the house and the mapping editor where called. Eleanor stated that pt was taken to [facility] and was d/c back home today. Eleanor is looking for in-home services. Eleanor stated that there will be a visit from [facility] tomorrow to help get services. Pt has a CM through [facility] ([place]). Eleanor asked about pt coming to [facility] to see the psychiatry provider. SAVANNA spoke to the psychiatry provider at the clinic who will only see pt short-term and would have an opening until the middle to end of July. Eleanor will continue to update SAVANNA as needed. Pt was accepted into the [facility] program and there could be an intake in July 2016. MARGUERITE Falcon, [facility] Social Work - Auto Rental Supervisor [facility] [place] AGE PERSON documented in this encounter Plan of Treatment Not on filedocumented as of this encounter Visit Diagnoses Not on filedocumented in this encounter Care Teams Carpenter Repair Relationship Specialty Start Date End Date Queta Fritz MD PCP - General Pediatrics 12/19/15 05/27/20 [address] [place] [address] Queta Fritz MD PCP - Assigned PCP 03/04/14 09/20/18 [address] [place] [address] [phone] Queta Fritz MD Assigned PCP 03/04/14 04/12/21 [address] [facility] 100 [place], [place] [phone] documented as of this encounter
--- OUTSIDE RECORDS SUMMARY | 2022-04-23 23:47 | XMS_ITS | Encounter Summary ---
:2002 Author Organization [place] Address [facility] [place] [address] Care Team Providers Name Role Phone Queta Fritz MD Primary Care Provider [phone] Queta Fritz MD Unavailable [phone] Queta Fritz MD Unavailable [phone] Reason for Visit Reason Comments Clinic Care Coordination - Follow-up Encounter Details Date Type Department Care Team Description 07/29/2016 Care Coordination [facility] Queta Fritz [facility] Care Care Coordination MD Liza Coordination - [address] [place] [address] [address] Follow-up ( ) [address] [phone] Social History Tobacco Use Types Packs/Day Years [...] do you attend anglican or Never 2018 shinto services? Do you [...] at Date Recorded Female 09/04/2021 9:00 PM MACHINIST WOOD documented as of this encounter Progress Notes Joseline Connors - 07/29/2016 1:44 PM CST Clinic Care Coordination Contact [facility]/Voicemail Referral Source: Care Team Clinical Data: Entry Level Sales Associate Outreach Outreach attempted x 1. Left message on voicemail for pt's mother (Eleanor) with call back informationand requested return call. Pt was suppose to start getting services through [facility]ging. Plan: Entry Level Sales Associate will try to reach patient again in 10-14 business days. Joseline Connors, DOPER, ACCOUNTS RECEIVABLE CLERK Social Work - Entry Level Sales Associate [facility], StevenJessica keller INIST WOOD documented in this encounter Plan of Treatment Not on filedocumented as of this encounter Visit Diagnoses Not on filedocumented in this encounter Care Teams Interactive Web Developer Relationship Specialty Start Date End Date Queta Fritz MD PCP - General Pediatrics 12/19/15 05/27/20 [address] [address] Queta Fritz MD PCP - Assigned PCP 03/04/14 09/20/18 [address] [place] [address] Queta Fritz MD Assigned PCP 03/04/14 04/12/21 [address] [place] [phone] documented as of this encounter
--- OUTSIDE RECORDS SUMMARY | 2022-04-23 23:47 | XMS_ITS | Encounter Summary ---
:2002 Author Organization [place] Address [facility] [place] [address] Care Team Providers Name Role Phone Queta Fritz MD Primary Care Provider [phone] Queta Fritz MD Unavailable [phone] Queta Fritz MD Unavailable [phone] Reason for Visit Reason Comments Clinic Care Coordination - Follow-up Encounter Details Date Type Department Care Team Description 08/12/2016 Care Coordination [facility] Queta Fritz [facility] Care Care Coordination MD Liza Coordination - [address] [place] [address] [address] Follow-up ( ) [address] [address] Social History Tobacco Use Types Packs/Day Years [...] do you attend amish or Never 2018 buddhist services? 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 Left message on voicemail with call back information and requested return call. Plan: Personnel Director mailed out care coordination introduction letter on 03/10/16. Personnel Director will try to reach patient again in 10-14 business days. Joseline Connors, PARTY PLAN SALES CONSULTANT, REVENUE FIELD AUDITOR Social Work - Personnel Director [facility] StevenJessica keller OTHERAPIST documented in this encounter Plan of Treatment Not on filedocumented as of this encounter Visit Diagnoses Not on filedocumented in this encounter Care Teams Property Caretaker Relationship Specialty Start Date End Date Queta Fritz MD PCP - General Pediatrics 12/19/15 05/27/20 [address] [place] [phone] Queta Fritz MD PCP - Assigned PCP 03/04/14 09/20/18 [address] [place] [address] [phone] Queta Fritz MD Assigned PCP 03/04/14 04/12/21 [address] [place] [address] documented as of this encounter
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
--- OUTSIDE RECORDS SUMMARY | 2022-04-23 23:47 | XMS_ITS | Encounter Summary ---
:2002 Author Organization [place] Address [address] [place] [address] Care Team Providers Name Role Phone Queta Fritz MD Primary Care Provider [phone] Queta Fritz MD Unavailable [phone] Queta Fritz MD Unavailable [phone] Reason for Visit Reason Comments Well Child 16 years old Encounter Details Date Type Department Care Team Description 02/01/2017 Office Visit [facility] Queta Fritz for routine child health examination w/o abnormal findings (Primary Dx); Clinic Krystle De Jesus MD Oppositional defiant disorder, severe; [address] Chromosomal a bnormality; [address] [place] [address] [id number] Social History Tobacco Use Types Packs/Day Years [...] do you attend cheondoism or Never 2018 sabianism services? Do you [...] or slept in a alf (including now)? 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 documented as of this encounter Last Filed Vital Signs Vital Sign Reading Time Taken Comments Blood Pressure 108/68 02/01/2017 8:32 AM CDT Pulse 100 02/01/2017 8:32 AM CDT Temperature 36.2 ??C (97.1 ??F) 02/01/2017 8:32 AM CDT Respiratory Rate - - Oxygen Saturation 99% 02/01/2017 8:32 AM CDT Inhaled Oxygen Concentration - - Weight 76.2 kg (168 lb) 02/01/2017 8:32 AM CDT Height 171.5 cm (5' 7.5) 02/01/2017 8:32 AM CDT Body Mass Index 25.92 02/01/2017 8:32 AM CDT Body Mass Index Percentile 91.49 % 02/01/2017 8:32 AM CD T Growth Chart: CDC (Girls, 2-20 Years) documented in this encounter Patient Instructions Patient InstructionsYolie De La Torre MA - 02/01/2017 8:42 AM CDT Preventive Care at the 12 - 14 Year Visit Growth Percentiles & Measurements Weight: 168 lbs 0 oz / 76.2 kg (actual weight) / 95 %ile based on CDC 2-20 Years ghkvfq-fhq-eig datausing vitals from 02/01/2017. Length: 5' 7.5 / 171.5 cm 93 %ile based on CDC 2-20 Years qjanxbq-rhh-nqr data using vitals from 02/01/2017. BMI: Body mass index is 25.92 kg/(m^2). 91 %ile based on CDC 2-20 Years BMI-for-age data using vitals from 02/01/2017. Blood Pressure: Blood pressure percentiles are 30.3 % systolic and 52.5 % diastolic based on NHBPEP's 4th Report. Next Visit ??? Continue to see your health care provider every one to two years for preventive care. Nutrition ??? It???s very [...] Health ??? Limit TV, computer and video time to one to two hours per day. ??? Set a goal to be physically fit. Do some form of exercise every day. It can be an active sport like skating, running, swimming, team sports, etc. ??? Try to get 30 to [...] ??? To be more independent. ??? To use words that best express your thoughts and feelings. ??? To develop self-confidence and a sense of self. ??? To see big differences in how you and your friends grow and develop. ??? To have body odor from perspiration (sweating). Use underarm deodorant each day. ??? To have some acne, sometimes or all the time. (Talk with your doctor or nurse about this.) ??? Girls will usually begin puberty about two years before boys. o Girls will develop breasts and pubic hair. They will also start their menstrual periods. o Boys will develop a larger penis and testicles, as well as pubic hair. Their voices will change, and they???ll start to have ???wet dreams.?? Sexuality ??? It is normal to have sexual feelings. ??? Find a supportive person who can answer questions about puberty, sexual development, sex, abstinence (choosing not to have sex), sexually transmitted diseases (STDs) and control. ??? Think about how you can say no to sex. Safety ??? Accidents are the greatest threat to your health and life. ??? Always wear a seat belt in the car. ??? Practice a fire escape plan at home. Check smoke detector batteries twice a year. ??? Keep electric items (like blow dryers, razors, curling irons, etc.) away from water. ??? Wear a helmet and other protective gear when bike riding, skating, skateboarding, etc. ??? Use sunscreen to reduce your risk of skin cancer. ??? Learn first aid and CPR (cardiopulmonary resuscitation). ??? Avoid dangerous behaviors and situations. For example, never get in a car if the pick up truck driver has beendrinking or using drugs. ??? 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 SHe is here for a routine health maintenance visit. Patient was roomed by: ORLANDO Roblero Well Child Social History Questions or concerns?: YES Forms to complete? YES Child lives with:: Mother and brother Languages spoken in the home: Finnish Recent family changes/ special stressors?: Parental divorce and OTHER* Safety / Health Risk TB Exposure: No TB exposure Cardiac risk assessment: none Child always wear seatbelt? Yes Helmet worn for bicycle/roller blades/skateboard? NO Home Safety Survey: Firearms in the home?: No Parents monitor screen use? NO Daily Activities Dental Dental provider: patient has a dental home Risks: child has or had a cavity and eats candy or sweets more than 3 times daily Water source: City water and filtered water Sports physical needed: No Media TV in child's room: No Types of media used: computer and video/dvd/tv School Name of school: [employer] Grade level: 9th School performance: below grade level Grades: NA Schooling concerns? no Days missed current/ last year: Too many Academic problems: problems in reading, problems in mathematics, problems in writing and learning disabilities Activities Minimum of 60 minutes per day of physical activity: Yes Activities: age appropriate activities, rides bike (helmet advised) and music Diet Child gets at least 4 servings fruit or vegetables daily: NO Sleep Sleep duration (hours): 8 VISION: Testing not done--no concerns VISION No corrective lenses Tool used: HOTV Right eye: 10/16 (20/32) Left eye: 10/16 (20/32) Visual Acuity: Pass HEARING: Testing not done: No concerns QUESTIONS/CONCERNS: it feels like she is seeing black DOTs in the morning randomly. [place] MENSTRUAL HISTORY Normal PROBLEM LISTPatient Active Problem List Diagnosis ??? Chromosomal abnormality ??? Learning disability ??? Loss of weight ??? Tonsillar abscess, S/P drainage ??? Anxiety ??? Insomnia ??? Disturbance of skin sensation/ crawling skin ??? Aggression with talk of suicide/homicide ??? Suicidal ideation ??? Mental health disorder MEDICATIONS Current Outpatient Prescriptions Medication Sig Dispense Refill ??? TRAZODONE HCL PO Take 100 mg [...] HOURS NEEDED 0 ??? Ergocalciferol (VITAMIN D) 90142 UNITS CAPS Take 50,000 Units by mouth every 7 days 8 capsule 0 ALLERGY Allergies Allergen Reactions ??? Nkda [No Known Drug Allergies] ??? Seasonal Allergies IMMUNIZATIONS Immunization History Administered Date(s) Administered ??? Comvax (HIB/HepB) 2002, 2002, 03/26/2003 ? ? DTAP (<7y) 2002, 2002, 2002, 09/24/2003, 03/29/2007 ??? HPVQuadrivalent 03/11/2015, 05/28/2015, 10/21/2015 ??? Hepatitis A Vac Ped/Adol-2 Dose 03/30/2006, 09/27/2006 ??? Influenza (H1N1) 07/03/2009 ??? Influenza (IIV3) 05/22/2008, 06/10/2009, 04/11/2010, 05/04/2011 ??? Influenza Intranasal Vaccine 05/03/2012 ??? Influenza Intranasal Vaccine 4 valent 05/05/2013, 05/10/2014, 05/28/2015 ??? Influenza Vaccine IM 3yrs+ 4 Valent IIV4 03/30/2016 ??? MMR 03/26/2003, 03/29/2007 ??? Meningococcal (Menactra??) 01/18/2014 ??? Pneumococcal (PCV 13) 06/02/2011 ??? Pneumococcal (PCV 7) 2002, 2002, 2002 ??? Poliovirus, inactivated (IPV) 2002, 2002, 2002, 03/29/2007 ??? TDAP Vaccine (Adacel) 01/18/2014 ??? Varicella 03/26/2003, 03/29/2007 HEALTH HISTORY SINCE LAST VISIT No surgery, major illness or injury since last physical exam DRUGS Smoking: no Passive smoke exposure: no Alcohol: no Drugs: no SEXUALITY Sexual attraction: opposite sex Sexual activity: No PSYCHO-SOCIAL/DEPRESSION General screening: Electronic PSC PSC SCORES 02/01/2017 Inattentive / Hyperactive Symptoms Subtotal 7 (At risk) Externalizing Symptoms Subtotal 9 (At risk) Internalizing Symptoms Subtotal 7 (At risk) PSC-17 TOTAL SCORE 23 (Positive) Some recent data might be hidden plugged in for care No concerns ROS GENERAL: See health history, nutrition and daily activities SKIN: No rash, hives or significant lesions HEENT: Hearing/vision: see above. No eye, nasal, ear symptoms. RESP: No cough or other concerns CV: No concerns GI: See nutrition and elimination. No concerns. : See elimination. No concerns NEURO: No headaches or concerns. OBJECTIVE: EXAM BP 108/68 (BP Location: Left arm, Patient Position: Sitting, Cuff Size: Adult Regular) Pulse 100 Temp 97.1 ??F (36.2 ??C) (Oral) Ht 5' 7.5 (1.715 m) Wt 168 lb (76.2 kg) SpO2 99% BMI 25.92 kg/m2 93 %ile based on CDC 2-20 Years nsojkql-yjo-oiv data using vitals from 02/01/2017. 95 %ile based on CDC 2-20 Years yukoxf-swc-esk data using vitals from 02/01/2017. 91 %ile based on CDC 2-20 Years BMI-for-age data using vitals from 02/01/2017. Blood pressure percentiles are 30.3 % systolic and 52.5 % diastolic based on NHBPEP's 4th Report. GENERAL: Active, alert, in no acute distress. [...] IV. BREASTS: Amadeo stage IV. No abnormalities. ASSESSMENT/PLAN: ICD-10-CM 1. Encounter for routine child health examination w/o abnormal findings Z00.129 PURE TONE HEARING TEST, AIR SCREENING, VISUAL ACUITY, QUANTITATIVE, BILAT BEHAVIORAL / EMOTIONAL ASSESSMENT [92658] 2. 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 Anxiety F41.9 4. Oppositional defiant disorder, severe F91.3 Anticipatory Guidance The following topics were discussed: SOCIAL/ FAMILY: NUTRITION: HEALTH/ SAFETY: SEXUALITY: Preventive Care Plan Immunizations ?? Reviewed, up to date Referrals/Ongoing Specialty care: No See other orders in [facility]. Cleared for sports: Yes BMI at 91 %ile based on CDC 2-20 Years BMI-for-age data using vitals from 02/01/2017. No weight concerns. Dental visit recommended: Yes FOLLOW-UP: ?? in 1-2 years for a Preventive Care visit Resources HPV and Cancer Prevention: What Parents Should Know What Kids Should Know About HPV and Cancer Goal Tracker: Be More Active Goal Tracker: Less Screen Time Goal Tracker: Drink More Water Goal Tracker: Eat More Fruits and Veggies Queta Fritz MD, MD [facility] documented in this encounter Nursing Notes Yolie De La Torre MA - 02/01/2017 8:30 AM CDT Chief Complaint Patient presents with ??? Well Child 16 years old Initial BP 108/68 (BP Location: Left arm, Patient Position: Sitting, Cuff Size: Adult Regular) Pulse 100 Temp 97.1 ??F (36.2 ??C) (Oral) Ht 5' 7.5 (1.715 m) Wt 168 lb (76.2 kg) SpO2 99% BMI 25.92 kg/m2 Estimated body mass index is 25.92 kg/(m^2) as calculated from the following: Height as of this encounter: 5' 7.5 (1.715 m). Weight as of this encounter: 168 lb (76.2 kg). Medication Reconciliation: complete ORLANDO Roblero documented in this encounter Plan of Treatment Not on filedocumented as of this encounter Procedures Procedure Name Priority Date/Time Associated Diagnosis Comme nts HC SCREENING TEST, Routine 02/01/2017 9:15 AM CDT Encounter fo r routine PURE TONE, AIR ONLY child health examination w/o abnormal findings documented in this encounter Visit Diagnoses Diagnosis Encounter for routine child health exami [facility] w/o abnormal findings - Primary Routine infant or child health check Oppositional defiant disorder, severe 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 Anxiety Anxiety state, unspecified documented in this encounter Care Teams Lithographic Press Operator Relationship Specialty Start Date End Date Queta Fritz MD PCP - General Pediatrics 12/19/15 05/27/20 [address] [place] [address] [phone] Queta Fritz MD PCP - Assigned PCP 03/04/14 09/20/18 [address] [place] [address] [id number] Queta Fritz MD Assigned PCP 03/04/14 04/12/21 [address] [place] [address] [id number] documented as of this encounter
--- OUTSIDE RECORDS SUMMARY | 2022-04-23 23:47 | XMS_ITS | Encounter Summary ---
:2002 Author Organization [place] Address [id number] [place] [address] Care Team Providers Name Role Phone Queta Fritz MD Primary Care Provider [phone] Queta Fritz MD Unavailable [phone] Queta Fritz MD Unavailable [phone] Reason for Visit Reason Comments Clinic Care Coordination - Follow-up Encounter Details Date Type Department Care Team Description 06/22/2016 Care Coordination [facility] Queta Fritz [facility] Care Care Coordination MD Liza Coordination - [address] [place] [address] [address] Follow-up ( ) [address] [phone] Social History Tobacco Use Types Packs/Day Years [...] or relatives? How often do you attend uatsdin or Never 2018 alevism services? Do you belong to any clubs or No 12/07/2018 organizations such as uatsdin groups, unions, fraternal or athletic groups, or [...] slept in a group home (including now)? 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 Left message on voicemail for pt's mother (Eleanor) with call back informationand requested return call. Pt was at [facility] when and pt's mother (Eleanor) last spoke on 06/01/16. Plan: Fashion Show Director will try to reach patient again in 7-10 business days. Joseline Connors, BUYER, CERTIFIED MEDICAL TRANSCRIPTIONIST Social Work - Fashion Show Director [facility] [place] GER CONSUMER INSIGHTS documented in this encounter Plan of Treatment Not on filedocumented as of this encounter Visit Diagnoses Not on filedocumented in this encounter Care Teams Cashier Wrapper Relationship Specialty Start Date End Date Queta Fritz MD PCP - General Pediatrics 12/19/15 05/27/[address] [place] [address] [id number] Queta Fritz MD PCP - Assigned PCP 03/04/14 09/20/[address] [place] [address] [phone] Queta Fritz MD Assigned PCP 03/04/14 04/12/[address] [place] [address] documented as of this encounter
--- OUTSIDE RECORDS SUMMARY | 2022-04-23 23:47 | XMS_ITS | Encounter Summary ---
:2002 Author Organization [place] Address [address] [place] [address] Care Team Providers Name Role Phone Queta Fritz MD Primary Care Provider [phone] ToritonicoleJoseline SMOKING PIPE MAKER Unavailable Queta Fritz MD Unavailable [phone] Queta Fritz MD Unavailable [phone] Reason for Visit Reason Comments Chart Review Please Encounter Details Date Type Department Care Team Description 11/05/[address] [facility] Queta Fritz Chart Review Please Care Coordination MD Liza () [address] [place] [phone] Social History Tobacco Use Types [...] do you attend lutheran or Never 2018 druze services? 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 Plan: Supervisor Hard Candy mailed out care coordination introduction letter on 10/29/16. Supervisor Hard Candy will try to reach patient again in 2-3 weeks. MARGUERITE Falcon, [facility] Social Work - Supervisor Hard Candy [facility] TokJessica keller documented in this encounter Plan of Treatment Not on filedocumented as of this encounter Visit Diagnoses Not on filedocumented in this encounter Care Teams Geothermal Installer Relationship Specialty Start Date End Date Queta Fritz MD PCP - General Pediatrics 12/19/15 05/27/20 [address] [place] [address] [id number] Queta Fritz MD PCP - Assigned PCP 03/04/14 09/20/18 [address] [place] [address] [phone] Joseline Connors MSW Network Operations Technician 11/05/16 11/23/16 Queta Fritz MD Assigned PCP 03/04/14 04/12/21 [address] [place] [address] [phone] documented as of this encounter
--- OUTSIDE RECORDS SUMMARY | 2022-04-23 23:47 | XMS_ITS | Encounter Summary ---
:2002 Author Organization [place] Address [facility] [place] [address] Care Team Providers Name Role Phone Queta Fritz MD Primary Care Provider [phone] Queta Fritz MD Unavailable [phone] Queta Fritz MD Unavailable [phone] Reason for Visit Reason Comments Clinic Care Coordination - Follow-up Encounter Details Date Type Department Care Team Description 06/01/2016 Care Coordination [facility] Queta Fritz [facility] Care Care Coordination MD Liza Coordination - [address] [place] [address] [address] Follow-up ( ) [address] [phone] Social History Tobacco Use Types Packs/Day Years [...] do you attend moravian or Never 2018 sikhism services? 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 Current Behavioral Concerns: Pt is currently at [facility] in [place] for inpatient treatment. Pt has been acting out and had to be placed in an intensive care unit for more supervision. Education Provided to patient: N/A Clinical Pathway: None Medication Management: Pt is taking medications while at [facility] in [place]. Functional Status: Pt is independent with personal cares, ambulation, chores, and has supervision from adults. Transportation: Pt relies on others to provide transportation. Psychosocial: Current living arrangement: I live in a private home with family Financial/Insurance: Pt has [employer] insurance. Pt has support from family. Resources and Interventions: Current Resources: Pt's a [place] CM and [facility] LAW[facility]ari CM through [facility] who are working on differentoptions for housing and insurance. Advanced Care Plans/Directives on file: No Barriers: Behavioral Health services: residential placement. Strengths: Supportive Care Team Patient/Caregiver understanding: Spoke to pt's mother (Eleanor) who stated that pt is back inpatient treatment at [facility] in [place]. Pt has support from the care team there trying to determine residential placement knowing that home is not a reasonable placement. Eleanor stated that Federico is working to get pt CM through [facility] to help with residential placement. Eleanor stated that ptis still having behaviors towards police officers who reportedly called CPS on the concerns about pt. Eleanor is asking about where the CPS report is at and will contact [facility] to ask them about it. Plan: will plan to follow-up with Eleanor on 2-3 weeks. Joseline Connors, MARGUERITE, COMPUTER TRAINING SPECIALIST Social Work - Rotary Engine Assembler [facility]3]- Steven Dalton and [place] GATION ATTORNEY documented in this encounter Plan of Treatment Not on filedocumented as of this encounter Visit Diagnoses Not on filedocumented in this encounter Care Teams Sas Sql Developer Relationship Specialty Start Date End Date Queta Fritz MD PCP - General Pediatrics 12/19/15 05/27/20 [address] [place] [address] [phone] Queta Fritz MD PCP - Assigned PCP 03/04/14 09/20/18 [address] [place] [address] [phone] Queta Fritz MD Assigned PCP 03/04/14 04/12/21 [address] [place] [address] [phone] documented as of this encounter
--- OUTSIDE RECORDS SUMMARY | 2022-04-23 23:47 | XMS_ITS | Encounter Summary ---
:2002 Author Organization [place] Address [address] [place] [address] Care Team Providers Name Role Phone Queta Fritz MD Primary Care Provider [phone] Queta Fritz MD Unavailable [phone] Queta Fritz MD Unavailable [phone] Reason for Visit Reason Onset Date Comments Formulary Issue 01/15/2017 OCP Encounter Details Date Type Department Care Team Description 01/15/2017 Telephone [facility] Queta Fritz wilfred Issue (OCP) Clinic Krystle De Jesus MD [address] [place], [place] [phone] [place], [place] [phone] (Wo rk) Social History Tobacco Use Types [...] do you attend amish or Never 2018 confucianism services? 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 Telephone Encounter - Queta Fritz MD - 01/16/2017 8:56 AM CDT Done. Mahi should take the placebo pills of every third packet. Telephone Encounter - Vance Davidson - 01/16/2017 8:14 AM CDT Reason for call: Other Patient called regarding (reason for call): prescription Additional comments: HERE ARE 5 BIRTHCONTROL HER INSURANCE DOES TAKE BEYAZ APRI JUNEL SE [facility]- [facility] THEY WILL BE USING IS [facility] ADDRESS - [address] [place] [address] PHONE- [address] [place] [address] Phone number to reach patient: Home number on file [phone] (home) Best Time: ANY Can we leave a detailed message on this number? YES Telephone Encounter - Ashlyn Fatima - 01/15/2017 5:03 PM CDT Called pt's mom (consent to communicate in [facility]), reports pt is at a crisis bed and so rx should go to [facility]. Mom says she called her insurance and has a list of about 5 OCP that would be covered, but doesn't have list with her. Mom plans to call back tomorrow AM to give meds covered. Telephone Encounter - Ashlyn Fatima - 01/15/2017 1:34 PM CDT Pt's mom calls, reports pt's OCP rx is no longer being covered by insurance. Requesting alternative rx be sent to pharm. Please advise, thanks. documented in this encounter Plan of Treatment Not on filedocumented as of this encounter Visit Diagnoses Diagnosis Encounter for surveillance of contracept eunice pills - Primary Surveillance of previously prescribed co ntraceptive pill documented in this encounter Care Teams Telephone Sterilizer Relationship Specialty Start Date End Date Queta Fritz MD PCP - General Pediatrics 12/19/15 05/27/[address] [id number] Queta Fritz MD PCP - Assigned PCP 03/04/14 09/20/18 [address] [phone] Queta Fritz MD Assigned PCP 03/04/14 04/12/21 [address] [phone] documented as of this encounter
--- OUTSIDE RECORDS SUMMARY | 2022-04-23 23:47 | XMS_ITS | Encounter Summary ---
:2000 Author Organization [place] Address [facility] [place] [address] Care Team Providers Name Role Phone Queta Fritz MD Primary Care Provider [phone] Queta Fritz MD Unavailable [phone] Queta Fritz MD Unavailable [phone] Reason for Visit Reason Comments Clinic Care Coordination - Follow-up Encounter Details Date Type Department Care Team Description 07/03/2016 Care Coordination [facility] Queta [facility] Care Care Coordination MD Liza Coordination - [address] [place] [address] [address] Follow-up ( ) [address] [id number] Social History Tobacco Use Types Packs/Day Years [...] do you attend mormonism or Never 2018 druze services? Do you [...] slept in a care home (including now)? 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 Current Behavioral Concerns: Pt has ongoing behavioral health concerns and will need continual follow-up from caregivers after her inpatient d/c on 07/05/16. Education Provided to patient: N/A Clinical Pathway: None Medication Management: Pt's mother (Eleanor) stated that pt's medications changed. Functional Status: Mobility Status: Independent Equipment Currently Used at Home: none Transportation: Pt needs transportation provided. Psychosocial: Current living arrangement: I live in a private home with family Financial/Insurance: Pt has Preferred One insurance. Pt has support from family and friends. Resources and Interventions: Current Resources: [facility] ([place]), Behavioral Health Co Supervisor Grounds And Landscape, Home Services, REHAB PHYSICIAN: [place] and Cath Lab Radiology Technician, and Brid[facility]. Advanced Care Plans/Directives on file: No Barriers: Services arranged for after d/c on 07/05/16 and denied access to residential programs. Strengths: Supportive Care Team and Family. Patient/Caregiver understanding: Spoke to pt's mother (Eleanor) who stated that pt will be d/c from [facility] on 07/05/16 with plan to return to home with family (mother and brother). Eleanor stated that pt has a [facility] CM (Mejia) who help coordinate services for a BHA assessment on 07/06/16, REHAB PHYSICIAN services for 46 hours through [place] and Cath Lab Radiology Technician, and Bridging program to come to pt's homefor therapy. Eleanor stated that pt was denied access to a residential program due to behaviors. Plan: Eleanor will update SW as needed. SW will chart review in 2-3 weeks. Joseline Connors, MARGUERITE, R&D LAB TECHNICIAN Social Work - Bench Repair Technician [facility]- [facility] and [place] LDER JOINER documented in this encounter Plan of Treatment Not on filedocumented as of this encounter Visit Diagnoses Not on filedocumented in this encounter Care Teams Food Mixer Repairer Relationship Specialty Start Date End Date Queta Fritz MD PCP - General Pediatrics 12/19/15 05/27/20 [address] [place] [address] [phone] Queta Fritz MD PCP - Assigned PCP 03/04/14 09/20/18 [address] [place] [address] [phone] Queta Fritz MD Assigned PCP 03/04/14 04/12/21 [address] [place] [address] [phone] documented as of this encounter
--- OUTSIDE RECORDS SUMMARY | 2022-04-23 23:47 | XMS_ITS | Encounter Summary ---
:2002 Author Organization [place] Address [facility] [place] [address] Care Team Providers Name Role Phone Queta Fritz MD Primary Care Provider [phone] Queta Fritz MD Unavailable [phone] Queta Fritz MD Unavailable [phone] Reason for Visit Reason Comments Clinic Care Coordination - Follow-up Encounter Details Date Type Department Care Team Description 11/24/2016 Care Coordination [facility] Queta [facility] Care Care Coordination MD Liza Coordination - [address] [place] [address] [address] [place] Follow-up ( ) [address] [id number] Social History Tobacco Use Types Packs/Day Years [...] do you attend religion or Never 2018 cheondoism services? 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 SW has left messages on voicemail for pt's mother (Eleanor) with call back information and requested return call. Plan: Loader Helper mailed out care coordination introduction letter on 10/29/16. Loader Helper will do no further outreaches at this time. Joseline Connors, SANDWICH MAKER, APPAREL RENTAL CLERK Social Work - Loader Helper [facility], [place] documented in this encounter Plan of Treatment Not on filedocumented as of this encounter Visit Diagnoses Not on filedocumented in this encounter Care Teams Medical Legal Investigator Relationship Specialty Start Date End Date Queta Fritz MD PCP - General Pediatrics 12/19/15 05/27/20 [address] [id number] Queta Fritz MD PCP - Assigned PCP 03/04/14 09/20/18 [address] [address] Queta Fritz MD Assigned PCP 03/04/14 04/12/[address] [address] documented as of this encounter
--- OUTSIDE RECORDS SUMMARY | 2022-04-23 23:47 | XMS_ITS | Encounter Summary ---
:2002 Author Organization [place] Address [facility] [place] [address] Care Team Providers Name Role Phone Queta Fritz MD Primary Care Provider [phone] Queta Fritz MD Unavailable [phone] Queta Fritz MD Unavailable [phone] Reason for Visit Reason Comments Clinic Care Coordination - Follow-up Care Team Encounter Details Date Type Department Care Team Description 05/11/2016 Care Coordination [facility] Queta Fritz [facility] Care Coordination MD Liza Coordination - [address] [place] [address] [address] [place] Follow-up ( ); [place] [address] [place] [address] [id number] Social History Tobacco Use Types Packs/Day Years [...] do you attend jew or Never 2018 holiness services? Do you [...] at Date Recorded Female 09/04/2021 9:00 PM RELIGIOUS EDUCATION COORDINATOR documented as of this encounter Progress Notes Joseline Connors - 05/11/2016 2:08 PM CDT Clinic Care Coordination Contact OUTREACH Referral Information: Referral Source: Care Team Reason for Contact: Mental Health Concerns. [place] Utilization: Pt was at [facility] on 05/09/16. Pt was seen and d/c within an hour. Clinical Concerns: Current Medical Concerns: No current medical concerns. Current Behavioral Concerns: Pt has ongoing mental health issues. Pt was d/c from [facility] inpatient on 05/07/16 and was admitted to the partial hospitalization program on 05/08/16 (M-F from 8:30 pm - 3:30 pm for 2-5 weeks and they provide transportation). Per pt's mother (Eleanor), pt ran away fromthe partial hospitalization program on 05/08/16 and police were called. Pt had in- home service set up with [facility] for services (4:30 pm - 9 pm) and on the weekends. Eleanor stated that police were called on 05/09/16 and took pt to [facility]. Eleanor stated that pt acts outwhen she has police around kicking them. Education Provided to patient: N/A Clinical Pathway: None Medication Management: Eleanor stated that pt is taking her medications and that some of the doses have changed after her recent d/c from [facility]. Functional Status: Transportation: Pt needs transportation provided. Psychosocial: Current living arrangement: I live in a private home with family Financial/Insurance: Pt has Preferred One insurance. Pt attends the partial hospitalization program at [facility] in [place]. Resources and Interventions: Current Resources: Mental Health: In-home agency ([facility]), Partial Hospitalization ([facility]), and Case Management ([facility]). Barriers: Motivation and Willingness Strengths: Supportive Care Team. Patient/Caregiver understanding: Spoke to pt's mother (Eleanor) to obtain information given in this note. Eleanor stated that she was advised to schedule OT sessions for pt. Eleanor will look back to the information and contact SW for any needs. Plan: SW will follow-up in two weeks. Eleanor has SW contact information for immediate concerns. Joseline Connors, SAP MOBILITY ARCHITECT, REHABILITATION CENTER MANAGER Social Work - Nutrition Manager [facility]- [facility] [place] and [place] documented in this encounter Plan of Treatment Not on filedocumented as of this encounter Visit Diagnoses Not on filedocumented in this encounter Care Teams Bilingual Counter Sales Retail Relationship Specialty Start Date End Date Queta Fritz MD PCP - General Pediatrics 12/19/15 05/27/20 [address] [place] [address] [phone] Queta Fritz MD PCP - Assigned PCP 03/04/14 09/20/18 [address] [place] [address] [phone] Queta Fritz MD Assigned PCP 03/04/14 04/12/21 [address] [place] [address] [phone] documented as of this encounter
--- OUTSIDE RECORDS SUMMARY | 2022-04-23 23:47 | XMS_ITS | Encounter Summary ---
:2002 Author Organization [place] Address [facility] [place] [address] Care Team Providers Name Role Phone Queta Fritz MD Primary Care Provider [phone] Queta Fritz MD Unavailable [phone] Queta Fritz MD Unavailable [phone] Reason for Visit Reason Comments Clinic Care Coordination - Follow-up Encounter Details Date Type Department Care Team Description 10/14/2016 Care Coordination [facility] Queta Fritz [facility] Care Care Coordination MD Liza Coordination - [address] [place] [address] [address] [place] Follow-up ( ) [address] [phone] Social History Tobacco Use Types Packs/Day Years [...] do you attend zoroastrianism or Never 2018 sabianism services? 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 Left message on voicemail for pt's mother (Eleanor) with call back informationand requested return call. Plan: Plant Engineering Supervisor will try to reach patient again in 3-5 business days. Joseline Connors, MANAGER LEGAL, FLOAT NURSE Social Work - Plant Engineering Supervisor [facility] BatesJessica keller documented in this encounter Plan of Treatment Not on filedocumented as of this encounter Visit Diagnoses Not on filedocumented in this encounter Care Teams Carpenter/Labor Relationship Specialty Start Date End Date Queta Fritz MD PCP - General Pediatrics 12/19/15 05/27/20 [address] [place] [id number] Queta Fritz MD PCP - Assigned PCP 03/04/14 09/20/18 [address] [place] [address] [phone] Queta Fritz MD Assigned PCP 03/04/14 04/12/21 [address] [place] [phone] documented as of this encounter
--- OUTSIDE RECORDS SUMMARY | 2022-04-23 23:47 | XMS_ITS | Encounter Summary ---
:2002 Author Organization [place] Address [address] [place] [address] Care Team Providers Name Role Phone Queta Fritz MD Primary Care Provider [phone] Queta Fritz MD Unavailable [phone] Queta Fritz MD Unavailable [phone] Reason for Visit Reason Comments Ankle/Foot left Encounter Details Date Type Department Care Team Description 07/30/2016 Office Visit [facility] Iris Freeman l eft ankle pain Clinic Jian Calixto MD (Primary Dx) [address] [place] [address] [facility], [address] [phone] (Wo rk) [address] [phone] Social History Tobacco Use Types Packs/Day Years [...] do you attend scientology or Never 2018 congregation services? Do you [...] at Date Recorded Female 09/04/2021 9:00 PM BREAST BUFFER documented as of this encounter Last Filed Vital Signs Vital Sign Reading Time Taken Comments Blood Pressure 108/80 07/30/2016 3:38 PM BREAST BUFFER Pulse 89 07/30/2016 3:38 PM BREAST BUFFER Temperature 36.4 ??C (97.5 ??F) 07/30/2016 3:38 PM BREAST BUFFER Respiratory Rate 16 07/30/2016 3:38 PM BREAST BUFFER Oxygen Saturation 99% 07/30/2016 3:38 PM BREAST BUFFER Inhaled Oxygen Concentration - - Weight 74.6 kg (164 lb 8 oz) 07/30/2016 3:38 PM BREAST BUFFER Height 173.4 cm (5' 8.25) 07/30/2016 3:38 PM BREAST BUFFER Body Mass Index 24.83 07/30/2016 3:38 PM BREAST BUFFER Body Mass Index Percentile 89.64 % 07/30/2016 3:38 PM CS T Growth Chart: [facility] (Girls, 2-20 Years) documented in this encounter Progress Notes Iris Freeman MD - 07/30/2016 3:38 PM CST HPI SUBJECTIVE: Mahi Faye is a 16 year old female who presents to clinic today for the following health issues: Joint Pain ?? Onset: since yesterday-left ankle/leg pain , running from the police at the time, has a knife in her back pack, fell when she twisted her ankle, she thinks it might be broken, has been walking on itsince and was painful in GYM class today, told she has to get a note from doctor ?? Description: Location: left ankle Character: Dull ache ?? Intensity: severe, 10/10 ?? Progression of Symptoms: worse ?? Accompanying Signs & Symptoms: Other symptoms: numbness ?? History: Previous similar pain: no ?? Precipitating factors: Trauma or overuse: YES - trauma - fell yesterday and twisted left ankle laterally away from the midline. ?? Alleviating factors: Improved by: ice and support wrap Therapies Tried and outcome: Took Advil last night without relief; Tried icing it today without relief. Problem list and histories reviewed & adjusted, as indicated. Additional history: as documented BP Readings from Last 3 Encounters: 07/30/16 108/80 04/19/16 104/32 04/18/16 118/54 Wt Readings from Last 3 Encounters: 07/30/16 74.617 kg (164 lb 8 oz) (95.46 %*) 04/18/16 56.7 kg (125 lb) (74.58 %*) 03/30/16 61.236 kg (135 lb) (84.40 %*) * Growth percentiles are based on [facility] 2-20 Years data. Labs reviewed in [facility] Problem list, Medication list, Allergies, and Medical/Social/Surgical histories reviewed in [facility] andupdated as appropriate. ROS: Constitutional, HEENT, cardiovascular, pulmonary, gi and gu systems are negative, except as otherwise noted. This document serves as a record of the services and decisions personally performed and made by Eloisa Freeman MD. It was created on her behalf by Swathi Brewster, a trained medical records administrator. The creationof this document is based on the provider's statements to the medical records administrator. Swathi Brewster, 3:58 PM, July 30, 2016 OBJECTIVE: BP 108/80 mmHg Pulse 89 Temp(Src) 97.5 ??F (36.4 ??C) (Oral) Resp 16 Ht 1.734 m (5' 8.25) Wt 74.617 kg (164 lb 8 oz) BMI 24.82 kg/m2 SpO2 99% Body mass index is 24.82 kg/(m^2). GENERAL: healthy, alert and no distress EYES: Eyes grossly normal to inspection, PERRL and conjunctivae and sclerae normal MS: no gross musculoskeletal defects noted, no edema; No reproducible bony tenderness of left ankle bones with diffuse tenderness to light touch and slight swelling of lateral ankle ligaments, no ecchymosis SKIN: no suspicious lesions or rashes NEURO: Normal strength and tone, mentation intact and speech normal PSYCH: mentation appears normal, affect is flat, speaks slowly Appears tired, sleepy Diagnostic Test Results: No results found for this or any previous visit (from the past 24 hour(s)). ASSESSMENT/PLAN: (M25.572) Acute left ankle pain (primary encounter diagnosis) Comment: No bony tenderness of left ankle with diffuse tenderness; No ecchymosis; Minimal swelling; XR Ankle Left upon patient's request; Will call patient to inform her of the results; Left ankle was wrapped with an SANTO bandage prior to exiting the clinic. Plan: XR Ankle Left G/E 3 Views The information in this document, created by a medical records administrator for me, accurately reflects the services I personally performed and the decisions made by me. I have reviewed and approved this document for accuracy. Dr. Eloisa Freeman, 4:01 PM, July 30, 2016 Iris Freeman MD [facility] Physical Exam [facility] BUFFER documented in this encounter Nursing Notes Asia Resendiz CMA - 07/30/2016 3:45 PM CST Chief Complaint Patient presents with ??? Ankle/Foot left Initial BP 108/80 mmHg Pulse 89 Temp(Src) 97.5 ??F (36.4 ??C) (Oral) Resp 16 Ht 5' 8.25 (1.734 m) Wt 164 lb 8 oz (74.617 kg) BMI 24.82 kg/m2 SpO2 99% Estimated body mass index is 24.82 kg/(m^2) as calculated from the following: Height as of this encounter: 5' 8.25 (1.734 m). Weight as of this encounter: 164 lb 8 oz (74.617 kg). BP completed using cuff size regular right arm. Asia Resendiz CMA ST BUFFER documented in this encounter Plan of Treatment Not on filedocumented as of this encounter Results XR Ankle Left G/E 3 Views (07/30/2016 4:24 PM BREAST BUFFER) Anatomical Region Laterality Modality Leg, Ankle, Foot Left Computed Radiography Specimen (Source) Anatomical Location Collection Method / Collectio n Time Received Time / Laterality Volume Impressions 07/30/2016 6:00 PM BREAST BUFFER IMPRESSION: No evidence for fracture, dislocation or significant degenerative change of the left ankle. ELIZABETH MOYA MD Narrative 07/30/2016 6:00 PM BREAST BUFFER ANKLE LEFT THREE OR MORE VIEWS ??07/30/2016 [...] Visit Diagnoses Diagnosis Acute left ankle pain - Primary Acute left ankle pain documented in this encounter Care Teams Digital Content Marketing Manager Relationship Specialty Start Date End Date Queta Fritz MD PCP - General Pediatrics 12/19/15 05/27/20 [address] [phone] Queta Fritz MD PCP - Assigned PCP 03/04/14 09/20/18 [address] [place] [address] [phone] Queta Fritz MD Assigned PCP 03/04/14 04/12/21 [address] [phone] documented as of this encounter
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
--- OUTSIDE RECORDS SUMMARY | 2022-04-23 23:48 | XMS_ITS | Encounter Summary ---
:2002 Author Organization [facility] Address [address] [place] [address]. [place] [address] Care Team Providers Name Role Phone Queta Fritz MD Primary Care Provider [phone] Queta Fritz MD Unavailable [phone] Queta Fritz MD Unavailable [phone] Reason for Referral Specialty Diagnoses / Procedures Referred By Contact Refer red To Contact [employer] [address] [place] [address] [phone] Referral ID Status Reason Start Date Expiration Date Visits Requ ested Visits Authorized Encounter Details Date Type Department Care Team Description 02/07/2016 Telephone [facility] Augustine boateng, [facility] JAZMYNE Mccloud [address] [place] [address] [place] [phone] Social History Tobacco Use Types Packs/Day Years [...] you attend jehovah's witness or Never 2018 islam services? 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 Review results: Metreferral criteria for Warp Dresser; referral to be sent. Pt is having increasing behaviors resulting in emergency care. Please assess for any needs/suppport. Ame Bowen RN/Clinical Product Navigator documented in this encounter Plan of Treatment Not on filedocumented as of this encounter Visit Diagnoses Diagnosis Anxiety - Primary Anxiety state, unspecified documented in this encounter Care Teams Industrial Painter Relationship Specialty Start Date End Date Queta Fritz MD PCP - General Pediatrics 12/19/15 05/27/20 [address] [id number] Queta Fritz MD PCP - Assigned PCP 03/04/14 09/20/18 [address] [address] Queta Fritz MD Assigned PCP 03/04/14 04/12/21 [address] [address] documented as of this encounter
--- OUTSIDE RECORDS SUMMARY | 2022-04-23 23:48 | XMS_ITS | Encounter Summary ---
:2002 Author Organization [facility] [place] Address [facility] [place] [address] Care Team Providers Name Role Phone Queta Fritz MD Primary Care Provider [phone] Queta Fritz MD Unavailable [phone] Queta Fritz MD Unavailable [phone] Reason for Visit Reason Comments Clinic Care Coordination - Follow-up Encounter Details Date Type Department Care Team Description 03/10/2016 Care Coordination [facility] Queta Fritz [facility] Care Care Coordination MD Liza Coordination - [address] [place] [address] [address] [facility] Follow-up ( ) [address] [phone] Social History Tobacco Use Types Packs/Day Years [...] do you attend zoroastrianism or Never 2018 congregational services? 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 Outreach attempted x 2. SW has left previous voicemail messages without return phone calls. SW mailed [facility] letter today. Plan: Will attempt to contact in 5-7 business days and await response to letter. Joseline Connors, BODY MAKE UP ARTIST, TELEVISION PROGRAM DIRECTOR Social Work - Dice Maker [facility] StevenJessica keller documented in this encounter Plan of Treatment Not on filedocumented as of this encounter Visit Diagnoses Not on filedocumented in this encounter Care Teams Corner Block Cutter Relationship Specialty Start Date End Date Queta Fritz MD PCP - General Pediatrics 12/19/15 05/27/20 [address] [place] [id number] Queta Fritz MD PCP - Assigned PCP 03/04/14 09/20/18 [address] [place] [address] Queta Fritz MD Assigned PCP 03/04/14 04/12/21 [address] [place] [id number] documented as of this encounter
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
--- OUTSIDE RECORDS SUMMARY | 2022-04-23 23:48 | XMS_ITS | Encounter Summary ---
:2002 Author Organization [facility] Address [address] [place] [address] Care Team Providers Name Role Phone Queta Fritz MD Primary Care Provider [phone] Joseline Connors Unavailable Queta Fritz MD Unavailable [phone] Queta Fritz MD Unavailable [phone] Tc Jama MD Unavailable Tc Jama MD Unavailable Khalida Beyer MD Primary Care Provider Rosario Noe APRN CNM Unavailable [phone] Eda Duarte MD Unavailable Mike Sherwood MD Unavailable [phone] Navid Paige MD Unavailable Norma Ruggiero APRN PACK PRESS OPERATOR Unavailable [phone] Queta Fritz MD Unavailable [phone] Norma Ruggiero APRN PACK PRESS OPERATOR Unavailable [phone] Ref-Primary, Physician Primary Care Provider [phone] Alber Estrada PA-C Unavailable [phone] Reason for Visit Reason Onset Date Comments Outpatient 12/26/2015 Encounter Details Date Type Department Care Team Description 12/26/2015 Telephone [facility] Angie Generic, Behavioral Outpatient Behavioral Health In eloisa Carbone [address] [place] [id number] Social History Tobacco Use Types Packs/Day [...] do you attend mormonism or Never 2018 cheondoism services? 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 B: Reported the client was recent discharged from [facility] on 12[facility]15 and her behavioral have started to escalate. Reported the client is at high risk, and mom is concerned about the client behavioral when she gets out of school for the summer. A: DA for Day [place] R: Pool message to the Adolescent MH OP Program. JT documented in this encounter Plan of Treatment Not on filedocumented as of this encounter Visit Diagnoses Not on filedocumented in this encounter Additional Health Concerns Infection Onset Date Last Indicated Resolved Time Rule Out COVID-19 06/07/2020 06/07/2020 06/08/2020 7:3 4 PM CASE MAKER Rule Out COVID-19 08/23/2021 08/23/2021 08/23/2021 9:1 7 PM CASE MAKER Rule Out COVID-19 04/21/2022 04/21/2022 04/21/2022 8:5 7 PM CDT documented as of this encounter Care Teams Pulpwood Contractor Relationship Specialty Start Date End Date Queta Fritz PCP - General Pediatrics 12/19/15 05/27/20 MD Liza [address] [place] [address]67 Queta Fritz PCP - Assigned PCP 03/04/14 MD Liza [address] [place] [address] [id number] Khalida Beyer MD PCP - General Psychiatry 05/28/20 08/22/21 No Ref-Primary, PCP - General 08/23/21 Physician Joseline Connors MSW Canine Deputy 11/05/16 11/23/16 Queta Fritz Assigned PCP 03/04/14 04/12/21 MD Liza [address] [place] [address] [id number] Tc Jama MD Pediatric Surgery 02/14/[address] [place] [address] Tc Jama, Assigned Pediatric 05/10/20 MD Specialist Provider [address] [place] [address] Rosario Noe, Assigned OBGYN Provider 07/21/20 01/16/22 SHAPER SETTER CNM [address] [place] [address] Eda Duarte Assigned Surgical Provider 10/02/20 MD Alex [address] [facility] [address] [place], [place] [address] Mike Sherwood Assigned Sleep Provider 01/31/21 MD Navid [address] [place] [address] Navid Paige MD Assigned Musculoskeletal 03/16/21 [address] [facility] [address] Norma Ruggiero, Assigned PCP 04/13/21 05/24/21 SHAPER SETTER PACK PRESS OPERATOR [address] [place] [address] Queta Fritz Assigned PCP 05/25/21 07/26/21 MD Liza [address] [facility] [address] [place], [place] [id number] Norma Ruggiero, Assigned PCP 07/27/21 09/06/21 SHAPER SETTER PACK PRESS OPERATOR [address] [place] [address] Alber Estrada Assigned PCP 09/07/21 KARIN Lagunas [address] [place] [address] documented as of this encounter
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
--- OUTSIDE RECORDS SUMMARY | 2022-04-23 23:48 | XMS_ITS | Encounter Summary ---
:2002 Author Organization [place] Address [address] [place] [address] Care Team Providers Name Role Phone Queta Fritz MD Primary Care Provider [phone] Queta Fritz MD Unavailable [phone] Queta Fritz MD Unavailable [phone] Reason for Visit Reason Onset Date Comments Medication Question 04/01/2016 Encounter Details Date Type Department Care Team Description 04/01/2016 Telephone [facility] Queta Fritz Medic ation Question Clinic Krystle De Jesus MD [address] [place], [place] [phone] [place] [address] (Wo rk) Social History Tobacco [...] do you attend latter-day or Never 2018 religion services? 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 Fritz. OK to start today. Telephone Encounter - Iris Hargrove RN - 04/01/2016 3:06 PM CDT Call from Mom stating PCP had started pt on OCP and was supposed to start last Wednesday. Was unable todo this as pt was in the hospital that night. Asking if OK to start today. Please advise. documented in this encounter Plan of Treatment Not on filedocumented as of this encounter Visit Diagnoses Not on filedocumented in this encounter Care Teams Rn Ccu Relationship Specialty Start Date End Date Queta Fritz MD PCP - General Pediatrics 12/19/15 05/27/[address] [id number] Queta Fritz MD PCP - Assigned PCP 03/04/14 09/20/[address] [id number] Queta Fritz MD Assigned PCP 03/04/14 04/12/[address] [address] documented as of this encounter
--- OUTSIDE RECORDS SUMMARY | 2022-04-23 23:48 | XMS_ITS | Encounter Summary ---
:2002 Author Organization [place] Address [address] [place] [address]. [place] [address] Care Team Providers Name Role Phone Queta Fritz MD Primary Care Provider [phone] Queta Fritz MD Unavailable [phone] Queta Fritz MD Unavailable [phone] Reason for Visit Reason Onset Date Comments Eval/Assessment 12/30/2015 left for outpatie nt therapist informing her that pt is not a good fit for t he program d/t intellectual functioning and lack of recommendation by inpatient team. Left inpatient team' s number in case of questions or concerns. Left callb ack information. Encounter Details Date Type Department Care Team Description 12/30/2015 Telephone [facility] Francisca Loredo/Dawit mcbride ( left Mental Health & JAZMYNE Laird for outpati ent therapist Addiction Services informing her that pt is [address] not a good fit for the [place] program d/t intellectual [phone] functioning and lack of [phone] recommendation by inpatient team. Left inpatient team' s number in case of questio ns or concerns. Left callback information. ) Social History Tobacco Use Types Packs/Day [...] do you attend samaritan or Never 2018 hinduism services? Do you belong to any clubs or No 12/07/2018 organizations such as samaritan groups, unions, fraIZEA or athletic groups, or school groups? How [...] at Date Recorded Female 09/04/2021 9:00 PM RESIDENT ASSISTANT documented as of this encounter Plan of Treatment Not on filedocumented as of this encounter Visit Diagnoses Not on filedocumented in this encounter Care Teams Publications Editor Relationship Specialty Start Date End Date Queta Fritz MD PCP - General Pediatrics 12/19/15 05/27/20 [address] [place] [address] [id number] Queta Fritz MD PCP - Assigned PCP 03/04/14 09/20/18 [address] [place] [id number] Queta Fritz MD Assigned PCP 03/04/14 04/12/21 [address] [place] [address] documented as of this encounter
--- OUTSIDE RECORDS SUMMARY | 2022-04-23 23:48 | XMS_ITS | Encounter Summary ---
:2000 Author Organization [facility] Address [address] [place] [address]. [place] [address] Care Team Providers Name Role Phone Queta Fritz MD Primary Care Provider [phone] Queta Fritz MD Unavailable [phone] Queta Fritz MD Unavailable [phone] Reason for Visit Reason Comments Aggressive Behavior patient had an argument with her brother and her mother. Put a hole on the wall in her room . Suicidal made a suicidal comment. Gabriele n to run into the traffic, lay down on the road and get hit by a car. Auth/Cert Specialty Diagnoses / Procedures Referred By Contact Refer red To Contact Behavioral Health Diagnoses Suicidal ideation Suicidal ideation [facility] Unit [address] [place] [address] [place] [address] Phone: Fax: Referral ID Status Reason Start Date Expiration Date Visits Requ ested Visits Authorized [id number] 1 1 Encounter Details Date Type Department Care Team Description 03/18/2016 - [facility] [place] Jain MD [address] [place] [address] [id number] Mental health disorder (Primary Dx); 03/21/2016 Encounter Child Adolescent Jermaine Mirza DO [facility] [place] [address] Suicidal ideation Mental Health Inpatient Unit [address] [place] [id number] Social History Tobacco Use Types Packs/Day [...] do you attend buddhism or Never 2018 bahai services? 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 documented as of this encounter Last Filed Vital Signs Vital Sign Reading Time Taken Comments Blood Pressure 118/66 03/21/2016 8:35 AM CDT Pulse - - Temperature 37.1 ??C (98.7 ??F) 03/21/2016 8:35 AM CDT Respiratory Rate 16 03/18/2016 3:08 AM CDT Oxygen Saturation 100% 03/18/2016 3:08 AM CDT Inhaled Oxygen Concentration - - Weight 61.4 kg (135 lb 4.8 oz) 03/21/2016 8:35 AM CDT Height 170.2 cm (5' 7) 03/18/2016 3:51 AM CDT Body Mass Index 21.19 03/18/2016 3:51 AM CDT Body Mass Index Percentile 71.12 % 03/21/2016 8:35 AM CD T Growth Chart: CDC (Girls, 2-20 Years) documented in this encounter Discharge Summaries Jermaine Mirza DO - 03/21/2016 1:30 PM CDT Psychiatric Discharge Summary Mahi Faye Age: [age] year old Date of : 2000 Date of Admission: 03/18/2016 Date of Discharge: 03/21/2016 1:30 PM Admitting Physician: Jermaine Mirza DO Discharge Physician: Jermaine Mirza DO Event Leading to Hospitalization: This patient is a 15 year old female with a past psychiatric history of ASD, DMDD, and borderline intellectual functioning who presents with SI, out of control behaviors and aggression. See Admission note for additional details. Diagnoses/Labs/Consults/Hospital Course: Principal Diagnosis:?? ASD, DMDD Unit: 7AE Attending: Yuki Medications: risks/benefits discussed with mother - Continue Abilify?? 7.5 mg qHS (increased 03/18) to target lability/aggression associated with ASD.?? Further titration as indicated. - Continue Tenex 1 mg qHS; no need for further titration as ADHD appear well managed at this time. Laboratory/Imaging: - Upreg neg and UDS neg Consults: - none Secondary psychiatric diagnoses of concern this admission: Borderline intellectual functioning Medical diagnoses to be addressed this admission: ?? Chromosomal abnormality Relevant psychosocial stressors: family dynamics and school Legal Status: Voluntary Safety Assessment: ?? Checks: Status 15 Precautions: Assault Patient did not require seclusion/restraints or administration of emergency medications to manage behavior. Med changes consisted of increasing Abilify to 7.5 mg qHS to target mood lability and aggression. Tenex was continued and did not require adjustment. The risks, benefits, alternatives and side effects were discussed and are understood by the patient and other caregivers. Patient did not display any aggression or defiant behaviors on unit. She was always pleasant and cooperative. It appears she struggles at home due to lack of structure and conflict with mother. Mother also appears to have difficulty in knowing how to appropriately parent the patient. She expressed frustration with lack of in home services and feels overwhelmed. Patient denied SI and HI upon admission. She did not appear depressed or irritable. She apepars to have limited cognitive abilities that impact her behaviors. She can be impulsive. She was easily redirectable on unit. Appears to be struggling with current stressors (father in [facility] with end stage ALS; patient likely grieving and having difficulty expressing this). Mahi Faye did participate in groups and was visible in the milieu. The patient's symptoms of SI and aggression improved. Mahi was able to name several adaptive coping skills and supportive people in her life. Mahi Faye was released to home. At the time of discharge, Mahi Faye was determinedto be at her baseline level of danger to herself and others (elevated to some degree given past behaviors). Care was coordinated with outpatient provider. Discussed plan with mother on day of discharge. Discharge Medications: Discharge Medication List as of 03/21/2016 10:50 AM CONTINUE these medications which have CHANGED Details ARIPiprazole (ABILIFY) 5 MG tablet Take 1.5 tablets (7.5 mg) by mouth At Bedtime, Disp-45 tablet, R-0, E-Prescribe CONTINUE these medications which have NOT CHANGED Details GUANFACINE HCL PO Take 1 mg by mouth At Bedtime, Historical Ergocalciferol (VITAMIN D) 83418 UNITS CAPS Take 50,000 Units by mouth every 7 days, Disp-8 capsule,R-0, FaxTake once weekly for 8 weeks than have Vitamin D retested. STOP taking these medications OLANZAPINE PO Comments: Reason for Stopping: Psychiatric Examination: Appearance: awake, alert and adequately groomed Attitude: cooperative Eye Contact: good Mood: good Affect: appropriate and in normal range Speech: clear, coherent Psychomotor Behavior: no evidence of tardive dyskinesia, dystonia, or tics and intact station, gait and muscle tone Thought Process: logical and goal oriented Associations: no loose associations Thought Content: no evidence of suicidal ideation or homicidal ideation and no evidence of psychoticthought Insight: limited Judgment: fair Oriented to: time, person, and place Attention Span and Concentration: fair Recent and Remote Memory: fair Language: Able to name objects Fund of Knowledge: delayed Muscle Strength and Tone: normal Gait and Station: Normal Discharge Plan: Lifestyle Adjustment The patient should take medications as prescribed. Patient's caregivers are highly encouraged to supervise administering of medications. Patient's caregivers should ensure patient does not have access to weapons, sharps, or mbua-lcp-slognez medications. These items should be locked away. Patient caregivers are highly encouraged to follow treatment recommendations. The patient should attend all follow-up appointments scheduled. Psychiatry Follow-up: Eleanor Antoine, CHIEF DISPATCHER, DNP, PMHNP-[facility] [address] [place] [address] Follow-up appointment: Wednesday, April 15, 2016 @ 2:00 pm *Soonest available follow-up appointment was scheduled. Patient was placed on a cancellation list for a sooner appointment if available upon discharge. [facility] case management: Patricia Carson - [phone] - [place] contracted through [facility].Recommendation is to continue working with correctional counselor/case manager to establish DD services to assist with establishing in-home skills, CISO and respite care. Resources: [facility] crisis: 926.604.4170 - available 24 hours a day Crisis Intervention: 723.486.4281 or 783-377-3839 (TTY: 668.777.3766). Call anytime for help. National [place] on Mental Illness (www.[place].tereza.org): 665.821.8549 or 231-908-6218. [place] Association for Children's Mental Health (www.macmh.org): 480.421.3217. Suicide Awareness Voices of Education (SAVE) (www.save.org): 352-866-GQHG (8408) National Suicide Prevention Line (www.mentalhealthmn.org): 066-309-OHVY (7767) Mental Health Consumer/Survivor Network of [place] (www.mhcsn.net): 912.886.4002 or 356-593-2161 Mental Health Association of [place] (www.mentalhealth.org): 875.883.7977 or 214-265-2078 General Medication Instructions: See your medication sheet(s) for instructions. Take all medicines as directed. Make no changes unless your doctor suggests them. Go to all your doctor visits. Be sure to have all your required lab tests. This way, your medicines can be refilled on time. Do not use any drugs not prescribed by your doctor. Avoid alcohol. Attestation: The patient has been seen and evaluated by Jermaine christine DO Time: 35 minutes documented in this encounter Discharge Instructions Discharge InstructionsTHilda cancino LPCC - 03/20/2016 1:52 PM CDT Behavioral Discharge Planning and Instructions Summary: Patient was admitted to the unit for suicidal ideation and out of control behaviors. Patient's symptoms were targeted on the unit. Medications were adjusted and monitored. Patient participatedin therapeutic skill building groups on the unit. Patient is recommended to continue regular follow-up with outpatient mental health providers upon discharge, including psychiatric medication management, therapy/skills and case management. Follow-up information, appointment and additional recommendations provided below. Patient's mood appears stabilized. Patient currently denies thought to harm self or others. Patient currently denies suicidal and homicidal ideation. Patient appears ready to be discharged. Patient will discharge home in care of family. Main Diagnosis: ASD DMDD Major Treatments, Procedures and Findings The patient participated in the therapeutic milieu and groups. The patient learned and practiced positive coping strategies. The patient was assessed for mental health and medication needs. Medications were adjusted based on the identified needs. Symptoms to Report: feeling more aggressive, increased confusion, losing more sleep, mood getting worse or thoughts of suicide Lifestyle Adjustment The patient should take medications as prescribed. Patient's caregivers are highly encouraged to supervise administering of medications. Patient's caregivers should ensure patient does not have access to weapons, sharps, or fjqk-zee-gsecnih medications. These items should be locked away. Patient caregivers are highly encouraged to follow treatment recommendations. The patient should attend all follow-up appointments scheduled. Psychiatry Follow-up: Eleanor Antoine, TERRY, DNP, PMHNP-[address] [address] Follow-up appointment: Wednesday, April 15, 2016 @ 2:00 pm *Soonest available follow-up appointment was scheduled. Patient was placed on a cancellation list for a sooner appointment if available upon discharge. [facility] case management: Patricia Carson - [phone] - [place] contracted through [facility].Recommendation is to continue working with correctional counselor/case manager to establish services to assist with establishing in-home skills, CISO and respite care. Resources: [facility] crisis: 721.634.7437 - available 24 hours a day Crisis Intervention: 495.851.7154 or 162-706-4112 (TTY: 472.278.8265). Call anytime for help. National [place] on Mental Illness (www.[place].tereza.org): 377.151.9916 or 700-145-2198. [place] Association for Children's Mental Health (www.macmh.org): 367.324.8218. Suicide Awareness Voices of Education (SAVE) (www.save.org): 398-475-VZRS (7283) National Suicide Prevention Line (www.mentalhealthmn.org): 289-394-CXHZ (2533) Mental Health Consumer/Survivor Network of [place] (www.mhcsn.net): 643.884.2936 or 799-956-2123 Mental Health Association of [place] (www.mentalhealth.org): 541.571.2233 or 812-231-6355 General Medication Instructions: See your medication sheet(s) for instructions. Take all medicines as directed. Make no changes unless your doctor suggests them. Go to all your doctor visits. Be sure to have all your required lab tests. This way, your medicines can be refilled on time. Do not use any drugs not prescribed by your doctor. Avoid alcohol. The treatment team has appreciated the opportunity to work with you. We wish you the best in the future. If you have any questions or concerns our unit number is [phone] documented in this encounter Medications at Time of Discharge Medication Sig Dispensed Refills Start Date End Date ARIPiprazole (ABILIFY) 5 Take 1.5 tablets 45 tablet 0 03/2002/01/2017 MG tabletIndications: (7.5 mg) by mouth Mental health disorder At Bedtime Ergocalciferol (VITAMIN D) Take 50,000 Units 8 capsule 0 02/03/2019 92640 UNITS by mouth every 7 CAPSIndications: Vitamin D days deficiency guanFACINE (INTUNIV) 1 MG TAKE 1 TABLET BY 2 09/201503/30/2016 TB24 MOUTH EVERY EVENING GUANFACINE HCL PO Take 1 mg by mouth 0 07/30/2016 At Bedtime documented as of this encounter Progress Notes Marlyn Meza RN - 03/21/2016 1:31 PM CDT Pt denies suicidal ideation or homicidal ideation. Has received all belongings. Discharge medications and followup instructions reviewed with caregiver.Eat at least 6 servings of fruit and vegetables each day. Exercise regularly each day. Drink 8 8oz glasses of water every day. Received patient experience survey. Usha Gomez - 03/20/2016 10:25 PM CDT 03/20/16 2220 Behavioral Health Hallucinations denies / not responding to hallucinations Thinking intact Orientation person: oriented;place: oriented;date: oriented;time: oriented Memory baseline memory Insight insight appropriate to situation Judgement intact Affect full range affect Mood mood is calm;other (see comments) (happy) Physical Appearance/Attire attire appropriate to age and situation;neat Hygiene well groomed Suicidality other (see comments) (none noted) Self Injury other (see comment) (none noted) Activity other (see comment) (active in milieu) Speech clear;coherent Psychomotor / Gait balanced;steady Sleep/Rest/Relaxation Day/Evening Time Hours up all shift Activities of Daily Living Hygiene/Grooming shower;independent Oral Hygiene independent Dress street clothes;independent Laundry with supervision Room Organization independent Significant Event Significant Event Other (see comments) (shift summary) Behavioral Health Interventions Depression maintain safety precautions;maintain safe secure environment;encourage nutrition and hydration;provide emotional support;establish therapeutic relationship Social and Therapeutic Interventions (Depression) encourage socialization with peers;encourage effective boundaries with peers;encourage participation in therapeutic groups and milieu activities Patient had an active engaged shift. Patient did not require seclusion/restraints to manage behavior. Mahi Faye did participate in groups and was visible in the milieu. Notable mental health symptoms during this shift:None Patient is working on these coping/social skills: Sharing feelings Positive social behaviors Avoiding engaging in negative behavior of others Visitors during this shift included None. Other information about this shift: Mahi is very excited to go home, as her birthday is next Wednesday. She indicates that she has some better coping skills. Hilda Mann LPCC - 03/20/2016 1:55 PM CDT Certified Wellness Program Manager left voicemail for Patricia Carson, patient's contracted correctional counselor/case manager through [place]. Confirmed plan for discharge tomorrow (Wednesday). Confirmed aftercare plan and follow-up recommendations. Certified Wellness Program Manager will fax discharge summary to contracted correctional counselor/case manager for coordination of care. Jorge Luis Roy OT - 03/20/2016 1:29 PM CDT Interdisciplinary Assessment Music Therapy Occupational Therapy Recreation Therapy SUMMARY: Pt attended and participated in a structured occupational therapy group session. During a week in review task, pt answered these questions in the following ways: Who was a support person for you this week? Staff, my mom, my cousin, my dog What are your goals for the weekend? Birthday presents on Wednesday, Wednesday something fun because it'smy birthday. Pt participated in a group game of [employer] and interacted appropriately with staff and peers.Appropriately excited when winning [employer] and getting a prize. Did well. Pt filled out occupational therapy assessment. She identified as her greatest obstacle to daily lifeis home. She stated that being in the hospital makes her feel happy. She identified her mom as social support and when overwhelmed/stressed, she deep breathes to calm down. Patient selected goals: To deal with frustrations effectively; To be able to set and accomplish goals; To increase motivation By the time I leave the hospital I will be happy. CLINICAL OBSERVATIONS: 03/20/16 1300 General Information Date Initially Attended OT 03/18/16 Clinical Impression Affect Appropriate to situation Orientation Oriented to person, place and time Appearance and ADLs General cleanliness observed in most areas Attention to Internal Stimuli No observed signs Interaction Skills Interacts appropriately with staff;Initiates appropriately with staff;Interacts appropriately with peers;Initiates appropriately with peers Ability to Communicate Needs Independent Verbal Content Articulate;Clear;Appropriate to topic;[place] Ability to Maintain Boundaries Maintains appropriate physical boundaries;Maintains appropriate verbal boundaries Participation Initiates participation;Independently participates Concentration Concentrates 30+ minutes Ability to Concentrate With structure Follows and Comprehends Directions Independently follows 2 step verbal directions Memory Delayed and immediate recall intact Organization Independently organizes simple tasks Decision Making Needs choices limited to 2 choices Planning and Problem Solving Occasionally needs assist/feedback Ability to Apply and Learn Concepts Comprehends concepts, but needs assist to apply Frustrations / Stress Tolerance Independently identifies sources of frustration/stress;Independentlyidentifies skills Level of Insight Some insight Self Esteem Can identify positives;Takes risks with support and encouragement;Accepts positive feedback Social Supports Has knowledge of support systems RECOMMENDATIONS: . During individual or group occupational therapy, music therapy or recreational therapy, pt will explore and apply interventions to focus on helping patient to regulate impulse control, learn methods ofdealing with stressors and feelings, learn to control negative impulses and acting out behaviors, and increase ability to express/manage anger in appropriate and non-violent ways. Assist patient with exploring satisfying alternatives to aggressive behaviors such as physical outlets for redirection of angry feelings, hobbies, or other individual pursuits. . Therapists contributing to assessment: RADHA Turner, OTR/L Jermaine Mirza DO - 03/20/2016 12:42 PM CDT [facility] Progress Note Impression: This patient is a 15 year old female with a past psychiatric history of ASD, DMDD, and borderline intellectual functioning who presents with SI, out of control behaviors and aggression. We are adjusting medications to target mood, impulsivity and aggression. We are also working with the patient on therapeutic skill building. Diagnoses and Plan: Principal Diagnosis:?? ASD, DMDD Unit: 7AE Attending: Yuki Medications: risks/benefits discussed with mother - Continue Abilify 7.5 mg qHS (increased 03/18) to target lability/aggression associated with ASD.?? Further titration as indicated. - Continue Tenex 1 mg qHS; no need for further titration as ADHD appear well managed at this time. Laboratory/Imaging: - Upreg neg and UDS neg Consults: - none Patient will be treated in therapeutic milieu with appropriate individual and group therapies as described. 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 Chromosomal abnormality Relevant psychosocial stressors: family dynamics and school Legal Status: Voluntary Safety Assessment: ?? Checks: Status 15 Precautions: Assault Pt has not required locked seclusion or restraints in the past 24 hours to maintain safety, please refer to application systems engineer for further details. The risks, benefits, alternatives and side effects have been discussed and are understood by the patient and other caregivers. Anticipated Disposition/Discharge Date: 03/21/2016 Target symptoms to stabilize: SI, aggression, mood lability and impulsive Target disposition: home, psychiatrist, therapy; recommend in home services, including possible CISO services in home. Attestation: Patient has been seen and evaluated by me, Jermaine Mirza DO Interim History: The patient's care was discussed with the treatment team and chart notes were reviewed. Side effects to medication: denies Sleep: slept through the night Intake: eating/drinking without difficulty Groups: attending groups and participating Peer interactions: gets along well with peers Patient continues to deny SI or HI. Doing well on unit; stable mood and behavior noted. Looking forward to going home tomorrow. Talked about how she is sad about her father who is dying from ALS. The 10 point Review of Systems is negative other than noted in the HPI Medications: ??? guanFACINE (TENEX) tablet 1 mg 1 mg Oral At Bedtime ??? vitamin D 50,000 Units Oral Q7 Days ??? ARIPiprazole 7.5 mg Oral At Bedtime Allergies: Allergies Allergen Reactions ??? Nkda [No Known Drug Allergies] ??? Seasonal Allergies Psychiatric Examination: BP 110/67 mmHg Temp(Src) 98 ??F (36.7 ??C) (Oral) Resp 16 Ht 1.702 m (5' 7) Wt 61.689 kg (136 lb) BMI 21.30 kg/m2 SpO2 100% LMP 02/26/2016 (Approximate) ? No Weight is 136 lbs 0 oz Body mass index is 21.3 kg/(m^2). Appearance: awake, alert, adequately groomed and appeared as age stated Attitude: cooperative Eye Contact: good Mood: great Affect: appropriate and in normal range Speech: clear, coherent Psychomotor Behavior: no evidence of tardive dyskinesia, dystonia, or tics and intact station, gait and muscle tone Thought Process: logical and goal oriented Associations: no loose associations Thought Content: no evidence of suicidal ideation or homicidal ideation and no evidence of psychoticthought Insight: limited Judgment: fair Oriented to: time, person, and place Attention Span and Concentration: fair Recent and Remote Memory: fair Language: Able to name objects Fund of Knowledge: delayed Muscle Strength and Tone: normal Gait and Station: Normal Labs: No results found for this or any previous visit (from the past 24 hour(s)). Hilda Mann LPCC - 03/20/2016 11:23 AM CDT Certified Wellness Program Manager spoke with patient's mother. Provided update on patient's status and disposition planning. Discussed treatment team's assessment and reviewed aftercare plan and recommendations. Mother reported that she was currently meeting with patient's correctional counselor/case manager, Patricia and they were completing paperwork to coordinate initiation of a DD waiver for patient to assist with establishing in- home support services, including skills, CISO and respite care. Confirmed plan for discharge tomorrow (Wednesday). Mother in agreement with discharge/aftercare plan. Mother will be on the unit at 1:00 pm for discharge Wednesday. NUELT Denia Dove RN - 03/19/2016 10:21 PM CDT 03/19/16 2200 Significant Event Significant Event Other (see comments) Mahi described her mood as awesome. She attended all group activities. Denied thoughts about hurting herself or others. Was taken to the sensory room at and enjoyed the zipline and swing. NUELT Jermaine Mirza DO - 03/19/2016 9:39 PM CDT [facility] Progress Note Impression: This patient is a 15 year old female with a past psychiatric history of ASD, DMDD, and borderline intellectual functioning who presents with SI, out of control behaviors and aggression. We are adjusting medications to target mood, impulsivity and aggression. We are also working with the patient on therapeutic skill building. Diagnoses and Plan: Principal Diagnosis:?? ASD, DMDD Unit: 7AE Attending: Yuki Medications: risks/benefits discussed with mother - Continue Abilify 7.5 mg qHS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 Depressive Symptoms Signs and symptoms of listed problems will be absent or manageable. Interventions to focus on decreasing symptoms of depression, decreasing self- injurious behaviors, elimination of suicidal ideation and elevation of mood. Additional interventions to focus on identifying and managing feelings, stress management, exercise, and healthy coping skills. Outcome: Therapy, progress towards functional goals is fair Late Entry Note Pt seen on 03/19/16 at 10:00 AM for Occupational Therapy Note is as follows: Pt attended and participated in a structured occupational therapy group session with a focus on coping skills identification. During check-in, pt reported feeling happy and her goal was to leave tomorrow Pt identified using the following coping skills: deep breathing, exercise, going somewhere in public, and searching for funny things on the internet. Pt completed a positive affirmation magnet project with good focus and attention to task. Polite, respectful, did well. Plan of Care - Bailey Villa RN - 03/18/2016 10:14 PM CDT Problem: Depressive Symptoms Goal: Depressive Symptoms Signs and symptoms of listed problems will be absent or manageable. Interventions to focus on decreasing symptoms of depression, decreasing self- injurious behaviors, elimination of suicidal ideation and elevation of mood. Additional interventions to focus on identifying and managing feelings, stress management, exercise, and healthy coping skills. 48 hour nursing assessment: Pt evaluation continues. Assessed mood, anxiety, thoughts, and behavior.Is progressing towards goals. Encourage participation in groups and developing healthy coping skills. Pt denies auditory or visual hallucinations. Refer to daily team meeting notes for individualized plan of care. Will continue to assess. Pt has been in all groups tonight. Appears with a full range affect, calm and co-operative in the unit. Pt is social with her peers although at times was socially inappropriate this evening. Pt has been asking staff to tell her doctor to give her off-units, pt stated I want to get off-ground so that I can go swimming. Pt was advised to talk to her doctor tomorrow. Will continue to assess pt as ordered. Plan of Care - Petra Whitney - 03/18/2016 7:39 PM CDT Problem: Depressive Symptoms Goal: Depressive Symptoms Signs and symptoms of listed problems will be absent or manageable. Interventions to focus on decreasing symptoms of depression, decreasing self- injurious behaviors, elimination of suicidal ideation and elevation of mood. Additional interventions to focus on identifying and managing feelings, stress management, exercise, and healthy coping skills. Outcome: Therapy, unable to show any progress toward functional goals Mahi attended a scheduled Therapeutic Recreation group this morning. She completed a [id number] at the beginning of group. She stated she is not emotionally hurting today. On a scale of 0-10, she stated, she is a 0. My mood is happy today. I am really happy. I am just happy right now. Duringgroup she was social with same aged peers. She worked on making fuse bead letters. Plan of Care - Jorge Luis Roy OT - 03/18/2016 3:25 PM CDT Problem: Depressive Symptoms Goal: Depressive Symptoms Signs and symptoms of listed problems will be absent or manageable. Interventions to focus on decreasing symptoms of depression, decreasing self- injurious behaviors, elimination of suicidal ideation and elevation of mood. Additional interventions to focus on identifying and managing feelings, stress management, exercise, and healthy coping skills. Outcome: Therapy, progress towards functional goals is fair Pt. Attended and actively participated in 2 of 2 scheduled OT sessions today. During morning check-in, pt reported feeling tired and her goal was to get off units. Pt stated if she could describe herself in one word it would be beautiful. Pt completed a positive affirmation collage of magazine pictures and watercolors with the quote I know without a doubt written on it. Pt attended OT clinic group, was able to initiate task and ask for help as needed. Pt demonstrated good planning, task focus, and problem solving. Appeared comfortable interacting with staff and peers.Pt completed 2 window cling projects and a second magazine collage. Did well. Pt was also interestedin completing origami projects in her room during quiet time. OT provided unit staff with origami book to make copies for pt as needed. Care Conference - Hilda Mann LPCC - 03/18/2016 11:15 AM CDT Update Family Assessment: Refer to family assessment completed 12/18/2015 from patient's recent hospitalization for full historyand background information. Certified Wellness Program Manager and attending psychiatrist met with patient's mother on the unit. Treatment: Mother reports primary concerns are patient's impulsivity and aggressive behaviors. Mother reports these behaviors primarily occur in the home. Patient has had one previous hospitalization in December 2015. Mother reports following this patient started with the [facility] day [facility] program. Mother reports she has since pulled patient from this program, as mother felt the program was not helping and there was no communication with the program therapist. Mother is concerned with patient's behaviors in the home and patient's safety. Mother has been working with patient's correctional counselor/case manager through [facility], mother reports that patient is on the wait list for in-home services and that residentialtreatment center (RTC) has been pursued additionally as mother reports all in-home services have several month long wait lists, patient is on the wait list for [facility] and [facility] has been explored per mother's report. Current providers: Psychiatrist: Eleanor Antoine - [facility] Therapist: Currently in process of being assigned through [facility] Director Of Field Sales: Patricia Carson - Contracted correctional counselor/case manager through [facility] - [phone] Family: Patient lives with mother and brother. Patient's father is diagnosed with ALS and is currently residing in a mcc. Family recently moved into a new home in February. Patient's parents divorce finalized in December. Patient recently stopped attending [facility] day treatment and will be transitioninginto school again in the fall. Mother reports that patient's behaviors are worse in the home setting. Crisis and the police have been called to the home numerous times - mother reports patient is obsessed with the police. School: Patient will be in 8th grade at [employer]. Patient is in a DCD (cognitive delay classroom setting). Patient is in some mainstream classes at school, and generally mother reports patient does well in school due to the structure. Patient is at about a 2nd grade level in school. Patient does have an IEP. The plan is to assess the patient for mental health and medication needs. The patient will be prescribed medications to treat the identified symptoms. Patient will participate in therapeutic skill building groups on the unit. CTC to coordinate discharge/aftercare planning. Plan of Care - Hilda Mann LPCC - 03/18/2016 10:44 AM CDT Problem: General Plan of Care (Inpatient Behavioral) Goal: Team Discussion Team Plan: BEHAVIORAL TEAM DISCUSSION Continued Stay Criteria/Rationale: Assessment and evaluation, stabilization Plan: The patient was admitted for suicidal ideation. Patient presents with a history of ASD, aggression and behavioral outbursts. Plan is to assess patient for mental health service needs and medication needs. Aftercare planning and referrals to be made based on assessment of need. Family meeting reviewed from patient's recent hospitalization, will complete update today during treatment team's meeting with mother. Anticipate discharge: disposition plan pending stabilization. Participants: Psychiatrist: Dr. Mirza, Hilda Mann-[facility], Gregory Simpson-JA[facility]NE Summary/Recommendation: See plan Medical/Physical: See medical consult notes Progress: Continuing to assess documented in this encounter Plan of Treatment Not on filedocumented as of this encounter Procedures Procedure Name Priority Date/Time Associated Comments Diagnosis HCG QUALITATIVE URINE STAT 03/18/2016 3:07 AM Suicidal idea tion Results for this CDT procedure are i n the results section. DRUG ABUSE SCREEN 6 STAT 03/18/2016 3:07 AM Suicidal ideati on Results for this CHEM DEP URINE ([facility]) CDT proced ure are in the results section. documented in this encounter Results HCG qualitative urine (03/18/2016 3:07 AM CDT) Analysis Performed At Patho logist Time Signature HCG Qual Urine Negative NEG [facility] Specimen Anatomical Collection Method Collection Time Receive d Time (Source) Location / / Volume Laterality Urine specimen URINE SPECIMEN 03/18/2016 3:07 AM 03/18 3:24 (specimen) OBTAINED BY CLEAN CDT AM CDT CATCH PROCEDURE / Unknown Gutierrez Crystal MD LAB - URINE ORDERABLES Performing Organization Address City/State/ZIP Code Phon e Number [facility] [address] [place] [address] [facility] Drug abuse screen 6 urine (tox) (03/18/2016 3:07 AM CDT) Component Value Ref Test Analysis Performed At Patholo gist Range Method Time Signature Amphetamine Qual Negative [facility] [place] Urine Cutoff for a negative amphetamine is 500 ng/mL or less. OF [facility] Barbiturates Qual Negative [facility] Urine Cutoff for a negative barbiturate is 200 ng/mL or less. OF [facility] Benzodiazepine Negative [facility] [place] Qual Urine Cutoff for a negative benzodiazepine is 200 ng/mL or less. OF [facility] Cannabinoids Qual Negative [facility] Urine Cutoff for a negative cannabinoid is 50 ng/mL or less. OF [facility] Cocaine Qual Negative [facility] Urine Cutoff for a negative cocaine is 300 ng/mL or less. OF [facility] Ethanol Qual Negative [facility] Urine Cutoff for a negative urine ethanol is 0.05 g/dL or less OF [facility] Opiates Negative [facility] Qualitative Urine Cutoff for a negative opiate is 300 ng/mL or less. OF [facility] Specimen Anatomical Collection Method Collection Time Receive d Time (Source) Location / / Volume Laterality Urine specimen URINE SPECIMEN 03/18/2016 3:07 AM 03/18 3:24 (specimen) OBTAINED BY CLEAN CDT AM CDT CATCH PROCEDURE / Unknown Gutierrez Crystal MD LAB - URINE ORDERABLES Performing Organization Address City/State/ZIP Code Phon e Number [facility] [address] [place] [address] [facility] documented in this encounter Visit Diagnoses Diagnosis Mental health disorder - Primary Unspecified nonpsychotic mental disorder Suicidal ideation documented in this encounter Administered Medications Inactive Administered Medications - up to 3 most recent administrations Medication Order MAR Action Action Date Dose Rate Site ARIPiprazole (ABILIFY) tablet 2 mg Given 03/18/2016 8:43 AM CDT 2 mg 2 mg, Oral, DAILY, First dose on Wed03/18/16 at 0815 ARIPiprazole (ABILIFY) tablet 5 mg Given 03/18/2016 8:02 PM CDT 5 mg 5 mg, Oral, AT BEDTIME, First dose on Wed03/18/16 at 2000, For 1 dose ARIPiprazole (ABILIFY) tablet 7.5 mg Given 03/20/2016 7:53 PM CDT 7.5 mg 7.5 mg, Oral, AT BEDTIME, First dose on Adri 03/19/16 at 2000 Given 03/19/2016 8:05 PM CDT 7.5 mg guanFACINE (TENEX) tablet 1 mg Given 03/20/2016 7:53 PM CDT 1 mg 1 mg, Oral, AT BEDTIME, First dose on Wed03/18/16 at 2000 Given 03/19/2016 8:05 PM CDT 1 mg Given 03/18/2016 8:02 PM CDT 1 mg vitamin D (ERGOCALCIFEROL) capsule Given 03/18/2016 8:43 AM CDT 50,000 Units 50,000 Units 50,000 Units, Oral, EVERY 7 DAYS, First dose on Wed03/18/16 at 0815 documented in this encounter Active and Recently Administered Medications Times are shown in CDT. Scheduled Medication Order 03/19/2016 03/20/2016 03/21/2016 ARIPiprazole (ABILIFY) tablet 7.5 mg 2004 (Given - Provider: Denia Dove RN) 1952 (Given - Provider: Librado Weaver RN) 7.5 mg, Oral, AT BEDTIME, First dose on Adri 03/19/16 at 2000 guanFACINE (TENEX) tablet 1 mg (CANCELED) 2004 (Given - Provider: Denia Dove RN) 1952 (Given - Provider: Librado Weaver RN) 1 mg, Oral, AT BEDTIME, First dose on Wed03/18/16 at 2000 documented in this encounter Care Teams Treatment Supervisor Relationship Specialty Start Date End Date Queta Fritz MD PCP - General Pediatrics 12/19/15 05/27/20 [address] [id number] Queta Fritz MD PCP - Assigned PCP 03/04/14 09/20/18 [address] [place] [id number] Queta Fritz MD Assigned PCP 03/04/14 04/12/21 [address] [place] [id number] documented as of this encounter
--- OUTSIDE RECORDS SUMMARY | 2022-04-23 23:48 | XMS_ITS | Encounter Summary ---
:2000 Author Organization [facility] Address [address] [place] [address] Care Team Providers Name Role Phone Queta Fritz MD Primary Care Provider [phone] Queta Fritz MD Unavailable [phone] Queta Fritz MD Unavailable [phone] Reason for Visit Reason Comments Erroneous encounter-disregard Encounter Details Date Type Department Care Team Description 02/07/2016 Care Coordination [facility] Queta Fritz Erroneous Care Coordination MD Liza encounter-disregard [address] [place] [id number] Social History Tobacco Use Types [...] do you attend congregation or Never 2018 mormonism services? 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
--- OUTSIDE RECORDS SUMMARY | 2022-04-23 23:48 | XMS_ITS | Encounter Summary ---
:2000 Author Organization [facility] Address [address] [place] [address] Care Team Providers Name Role Phone Queta Fritz MD Primary Care Provider [phone] Queta Fritz MD Unavailable [phone] Queta Fritz MD Unavailable [phone] Reason for Visit Reason Onset Date Comments ER F/U 12/24/2015 Dr Fritz pt Encounter Details Date Type Department Care Team Description 12/24/[address] [facility] Queta Fritz ER F/ U (Dr Fritz pt Clinic Krystle De Jesus MD ) [address] [place], [place] [phone] [place] [address] (Wo rk) Social History Tobacco [...] do you attend yazidism or Never 2018 jewish services? Do you belong to any clubs [...] slept in a nursing home (including now)? 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 I am calling to follow up and see how things are going after Mahi Faye's recent emergency visit/hospital stay. Tell me how he/she is doing now that they are home? Left the hospital on Wednesday, December 23, 2015. She took off running in from the store that same day. Mom had to call the food trades assistants to get Mahi to agree toget in the car, which she did. She ran off again later that night, she only goes to one place which is the local [employer], and she came back home. Mom is nearly at her wits end - Trying to get inpatient services, school is ending December and she is unsure what she is going to do with Mahi. She is set up to see a psychiatrist in [place]. Mom is working on getting a FMLA from work. Discharge Instructions Let's review the discharge instructions. What is/are the follow-up recommendations? Response: there is so many people involved in the case, I'm not sure if Fouzia needs to be involved. Has an appointment with the primary care provider been scheduled? No and not sure if needed When your child sees the provider, I would recommend that you bring the medications with you. Medications Tell me what changed about his/her medicines when he/she discharged? Changes to chronic meds? 0-1 What questions do you have about the medications? None Medication reconciliation completed? Yes Was MTM referral placed (*Make sure to put transitions as reason for referral)? No Call Summary What questions or concerns do you have about your child's recent visit and the follow-up care? none Mother ask that I let Fouzia know that her daughter is back home If you have questions or things don't [...] time and take care! Telephone Encounter - Leti Holder - 12/24/2015 2:50 PM CDT IP F/U Date: 12/23/2015 Diagnosis: Vitamin D Deficiency, Agrression Is patient active in care coordination? No Was patient in TCU? No documented in this encounter Plan of Treatment Not on filedocumented as of this encounter Visit Diagnoses Not on filedocumented in this encounter Care Teams Printing Equipment Mechanic Relationship Specialty Start Date End Date Queta Fritz MD PCP - General Pediatrics 12/19/15 05/27/20 [address] [place] [id number] Queta Fritz MD PCP - Assigned PCP 03/04/14 09/20/18 [address] [place] [id number] Queta Fritz MD Assigned PCP 03/04/14 04/12/21 [address] [place] [address] [id number] documented as of this encounter
--- OUTSIDE RECORDS SUMMARY | 2022-04-23 23:48 | XMS_ITS | Encounter Summary ---
:2000 Author Organization [place] Address [address] [facility] [place] [address] Care Team Providers Name Role Phone Queta Fritz MD Primary Care Provider [phone] Queta Fritz MD Unavailable [phone] Queta Fritz MD Unavailable [phone] Reason for Visit Reason Comments Aggressive Behavior Police called due to pt walk ing up to stranger and asking what would you do if I put you in a headlock, stranger went in to own house and pt began throwing rocks at house, became aggressive with police, calmed down in route with EMS. Encounter Details Date Type Department Care Team Description 04/18/2016 Emergency [facility] Luis Hallman, Learning disability; Emergency Department Episodic mood disorder (H) [address] [facility] [address] [place] [address] [place], [place] [phone] [facility] [phone] (Wo rk) Social History Tobacco Use Types [...] do you attend hinduism or Never 2018 restorationism services? 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 documented as of this encounter Last Filed Vital Signs Vital Sign Reading Time Taken Comments Blood Pressure 118/54 04/18/2016 10:22 PM CDT Pulse 87 04/18/2016 10:22 PM CDT Temperature 36.6 ??C (97.8 ??F) 04/18/2016 10:22 PM CDT Respiratory Rate 16 04/18/2016 10:22 PM CDT Oxygen Saturation 97% 04/18/2016 10:22 PM CDT Inhaled Oxygen Concentration - - Weight 56.7 kg (125 lb) 04/18/2016 7:31 PM CDT Height - - Body Mass Index - - documented in this encounter Discharge Instructions Discharge InstructionsLuis Hallman MD - 04/18/2016 9:37 PM CDT Follow up with assistant case manager and the [facility] for further assistance and help with lobsterman placement/treatment documented in this encounter Medications at Time of Discharge Medication Sig Dispensed Refills Start Date End Date vitamin D Take 1 capsule 8 capsule 0 03/30/2016 05/19/2016 (ERGOCALCIFEROL) 90138 (50,000 Units) by UNIT capsuleIndications: mouth every [...] Units by 8 capsule 0 02/03/2019 D) 40993 UNITS mouth every 7 days CAPSIndications: Vitamin D deficiency guanFACINE (TENEX) 2 MG Take 1 tablet (2 mg) 30 tablet 1 07/30/2016 tabletIndications: by mouth At Bedtime Oppositional defiant disorder guanFACINE HCl (INTUNIV) Take 1 tablet (3 mg) 30 tablet 0 0 03/30/2016 07/30/2016 3 MG [id number]: by mouth At Bedtime Oppositional defiant disorder GUANFACINE HCL PO Take 1 mg by mouth At 0 07/30/2016 Bedtime documented as of this encounter ED Notes Fang Whitney RN - 04/18/2016 10:23 PM CDT Pt's mom here to bring patient home. Pt's mom given resource folder. Luis Hallman MD - 04/18/2016 8:24 PM CDT History Chief Complaint Patient presents with ??? Aggressive Behavior Police called due to pt walking up to stranger and asking what would you do if I put you in a headlock, stranger went in to own house and pt began throwing rocks at house, became aggressive with police, calmed down in route with EMS. The history is provided by the patient and the mother (medical records). Mahi Faye is a 16 year old female who comes in due to her behaviors. She was discharged from [facility] yesterday. She has a chromosomal abnormality causing some LD. She is immature for her age. She followed a man from the library and he ignored her. He went home despite her trying to bait him into saying or doing something. She started throwing rocks at his house. He called the police andthey brought her to the ER. She is not depressed or anxious. She is not suicidal or homicidal. Theseare baseline behaviors for her. Mom is not sure what to do with her. The police are frustrated as well as they get called frequently to the home or other places due to her behaviors. Mom is trying to get her in a program through [facility] but they are concerned about her low IQ to do it. She is not sure it will happen or not. Please see the disease case manager's assessment for further details. I have reviewed the Medications, Allergies, Past Medical and Surgical History, and [facility] Review of Systems Constitutional: Negative for [...] reviewed and are negative. Physical Exam BP: 90/49 mmHg Pulse: 90 Heart Rate: 90 Temp: 97.2 ??F (36.2 ??C) Resp: 18 Weight: 56.7 kg (125 lb) SpO2: 98 % Physical Exam Constitutional: She is oriented [...] imminent risk to herself or others. She does have chronic behaviors that can put her at risk to get hurt. She likes the hospital and is very comfortable here. Further hospitalizations will only be detrimental to her and trying to curb these behaviors. Getting into the [facility] program may be helpful but ultimately she may need a longterm to handle her chronic behaviors. Mom will continue to work with the assistant case manager and the county to try to get furtherservices in place. [facility] was contacted about these concerns as well. I have reviewed the nursing notes. I have reviewed the findings, diagnosis, plan and need for follow up with the patient. New Prescriptions No medications on file Final diagnoses: Learning disability Episodic mood disorder (H) 04/18/2016 [facility] [place], EMERGENCY DEPARTMENT Luis Hallman MD 04/18/16 2252 Mahi Underwood - 04/18/2016 8:00 PM CDT Patient arrives to [facility]. Psych Associate explains process, gives patient urine cup and questionnaire.Patient told about meeting with Mental Health Multimedia Project Manager and Psychiatrist. Patient told about 2-5 hourtime frame for complete evaluation. documented in this encounter Plan of Treatment Not on filedocumented as of this encounter Visit Diagnoses Diagnosis Learning disability Other specific developmental learning di fficulties Episodic mood disorder (H) Unspecified episodic mood disorder documented in this encounter Care Teams Traffic Maintenance Supervisor Relationship Specialty Start Date End Date Queta Fritz MD PCP - General Pediatrics 12/19/15 05/27/[address] [place] [address] [id number] Queta Fritz MD PCP - Assigned PCP 03/04/14 09/20/[address] [place] [address] [id number] Queta Fritz MD Assigned PCP 03/04/14 04/12/[address] [place] [id number] documented as of this encounter
--- OUTSIDE RECORDS SUMMARY | 2022-04-23 23:48 | XMS_ITS | Encounter Summary ---
:2002 Author Organization [place] Address [facility] [place] [address] Care Team Providers Name Role Phone Queta Fritz MD Primary Care Provider Queta Fritz MD Unavailable [phone] Queta Fritz MD Unavailable [phone] Reason for Visit Reason Comments Clinic Care Coordination - Follow-up Care Team Encounter Details Date Type Department Care Team Description 04/06/[address] [facility] Queta Fritz [facility] Care Care Coordination MD Liza Coordination - [address] [place] [address] [address] Follow-up ( ); [place] [address] [place] [address] [id number] Social History Tobacco Use Types Packs/Day Years [...] do you attend adventism or Never 2018 roman catholic services? 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 Transportation: Pt receives transportation from her mother (Eleanor). Medication Management Not assessed. Conditions and Plan Current Behavioral Health Concerns: Pt is currently at [facility] in [place] for inpatient adolescent placement after waiting at the [facility] ED until a bed was made available. Intervention for Referral: Spoke to pt's mother (Eleanor) who stated that Castillo from [facility] was not of much help. Eleanor stated that she called EMS on Wednesday who took pt to [facility] for psychiatry placement. Pt was placed at [facility] in [place]. Barriers to goals: Motivation Strength to goals: Supportive mother and care team Advanced Care Plans/Directives on file: No Patient/Caregiver Understanding: Eleanor will updated care team as appropriate. SW sent PCP a message with the name and location of pt's placement. MARGUERITE Falcon, PAYROLL OFFICER Social Work - Services Tech [facility] documented in this encounter Plan of Treatment Not on filedocumented as of this encounter Visit Diagnoses Not on filedocumented in this encounter Care Teams Cartography Technician Relationship Specialty Start Date End Date Queta Fritz MD PCP - General Pediatrics 12/19/15 05/27/20 [address] [place] [id number] Queta Fritz MD PCP - Assigned PCP 03/04/14 09/20/18 [address] [place] [address] [phone] Queta Fritz MD Assigned PCP 03/04/14 04/12/21 [address] [facility] [address] [place], [place] [phone] documented as of this encounter
--- OUTSIDE RECORDS SUMMARY | 2022-04-23 23:48 | XMS_ITS | Encounter Summary ---
:2000 Author Organization [place] Address [address] [place] [address] Care Team Providers Name Role Phone Queta Fritz MD Primary Care Provider [phone] Queta Fritz MD Unavailable [phone] Queta Fritz MD Unavailable [phone] Reason for Visit Reason Onset Date Comments Hospital F/U 03/24/2016 Encounter Details Date Type Department Care Team Description 03/24/2016 Telephone [facility] F[facility] () Krystle De Jesus MD [address] [place], [place] [address] [place], [place] [phone] (Wo rk) Social History Tobacco Use Types [...] do you attend gnosticism or Never 2018 pentecostalism services? 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 Verbalized understanding. Discussed that Depo is a shot that is given every 3 months. Mom states pt has been getting higher dose of Vit D >8 weeks. Discuss waiting for appt on Wed to discuss whether maintenance dosing will be prescribed vs continued high dose. Telephone Encounter - Queta Fritz MD - 03/24/2016 7:43 PM CDT You can let mother know ahead of the visit next week that: 1. she can be placed on hormone treatment to stop her cycles. Since she is non compliant I can offerthe depo shot here in the office otherwise the OBGYN doctors have a couple of other options that we can discuss. 2. Mahi will always need vit D supplementation as she lives in [place]. I can check her to see if the number moved up with 8 weeks of therapy to the point of maintenance dosing. Her Hemoglobin was a little low as well. If we do blood I will check this as well as her iron stores. Telephone Encounter - Johnny Tobias RN - 03/24/2016 7:[address] Fritz mom is asking about the below. Mom states that she has noticed that 2-3 days prior to pt's period she become rage full. Mom is wondering if there is a medication that could be stated to help with this Appt with you made on Mar 30 at 7 pm. Mom thought the hospital had restarted the Vit D, they gave her doses in the hospital. But she is done with the 8 weeks of Vit D and is at the point of retesting. Please test Vit D at appt to see if she still needs to be on it. Johnny Melendez RN Telephone Encounter - Johnny Tobias RN - 03/24/2016 6:57 PM CDT ED for acute condition Discharge Protocol Hi, my name is Johnny Tobias, a registered nurse, and I am calling from [facility]. I am calling to follow up and see how things are going after Mahi Faye's recent emergency visit. Tell me how he/she is doing now that you are home? I spoke to Mahi's mom and she states shes Hanging in there Discharge Instructions Let's review your discharge instructions. What is/are the follow-up recommendations? Pt. Response: Made an appt to see her NPH for mental health meds Has an appointment with the primary care provider been scheduled? Appt for well child is due, appt for that made. Medications Tell me what changed about his/her medicines when he/she discharged? Make sure that she is to be on Vit D at 50,000 units, 12/19/15 vit D 20 It was ordered on 12/20/15 What questions do you have about the medications? None Call Summary What questions or concerns do you have about your child's recent visit and your follow-up care? see below. Advice given: see below Mom states that she has noticed that 2-3 days prior to pt's period she become rage full. Mom is wondering if there is a medication that could be stated to help with this. If you have questions or things don't [...] you for your time and take care! Jonhny Melendez RN Telephone Encounter - Leti Holder - 03/24/2016 9:11 AM CDT IP F/U Date: 03/21/2016 Diagnosis: Suicidal ideation, mental health disorder Is patient active in care coordination? Yes - Route to Care Coordination (P [id number]) Was patient in TCU? No documented in this encounter Plan of Treatment Not on filedocumented as of this encounter Visit Diagnoses Not on filedocumented in this encounter Care Teams Mainframe Applications Developer Relationship Specialty Start Date End Date Queta Fritz MD PCP - General Pediatrics 12/19/15 05/27/20 [address] [phone] Queta Fritz MD PCP - Assigned PCP 03/04/14 09/20/18 [address] [id number] Queta Fritz MD Assigned PCP 03/04/14 04/12/21 [address] [phone] documented as of this encounter
--- OUTSIDE RECORDS SUMMARY | 2022-04-23 23:48 | XMS_ITS | Encounter Summary ---
:2002 Author Organization [place] Address [facility] [place] [address] Care Team Providers Name Role Phone Queta Fritz MD Primary Care Provider Queta Fritz MD Unavailable [phone] Queta Fritz MD Unavailable [phone] Reason for Visit Reason Comments Clinic Care Coordination - Follow-up Encounter Details Date Type Department Care Team Description 03/04/2016 Care Coordination [facility] Queta Fritz [facility] Care Care Coordination MD Liza Coordination - [address] [place] [address] [address] Follow-up ( ) [address] [id number] Social History Tobacco Use Types Packs/Day [...] do you attend sikhism or Never 2018 baptist services? 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 Outreach attempted x 1. Left message on [employer] for pt's mother (Eleanor) with call back information and requested return call. Plan: Will attempt to contact in 3-5 business days and await response to message. Joseline Connors, GUEST ASSOCIATE, LOGGING ENGINEER Social Work - Acupressure Therapist [facility] TowerJessica keller documented in this encounter Plan of Treatment Not on filedocumented as of this encounter Visit Diagnoses Not on filedocumented in this encounter Care Teams Body Shop Technician Relationship Specialty Start Date End Date Queta Fritz MD PCP - General Pediatrics 12/19/15 05/27/20 [address] [place] [address] [id number] Queta Fritz MD PCP - Assigned PCP 03/04/14 09/20/18 [address] [place] [address] [phone] Queta Fritz MD Assigned PCP 03/04/14 04/12/21 [address] [place] [address] documented as of this encounter
--- OUTSIDE RECORDS SUMMARY | 2022-04-23 23:48 | XMS_ITS | Encounter Summary ---
:2002 Author Organization [place] Address [address] [place] [address] Care Team Providers Name Role Phone Queta Fritz MD Primary Care Provider [phone] Queta Fritz MD Unavailable [phone] Queta Fritz MD Unavailable [phone] Reason for Visit Reason Comments RECHECK discuss hormone treatment RECHECK Vitamin D Encounter Details Date Type Department Care Team Description 03/30/2016 Office Visit [facility] Queta Fritz for immunization (Primary Dx); Clinic Krystle De Jesus MD PMS (premenstrual syndrome); [address] Acne vulgaris ; [address] Oppositional defiant disorder; [place], [place] Vitamin D i nsufficiency [id number] [phone] Social History Tobacco Use Types Packs/Day Years [...] do you attend tenriism or Never 2018 episcopalian services? 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 documented as of this encounter Last Filed Vital Signs Vital Sign Reading Time Taken Comments Blood Pressure 131/82 03/30/2016 7:17 PM CDT Pulse 104 03/30/2016 7:17 PM CDT Temperature 36.3 ??C (97.3 ??F) 03/30/2016 7:17 PM CDT Respiratory Rate - - Oxygen Saturation 99% 03/30/2016 7:17 PM CDT Inhaled Oxygen Concentration - - Weight 61.2 kg (135 lb) 03/30/2016 7:17 PM CDT Height 169.5 cm (5' 6.75) 03/30/2016 7:17 PM CDT Body Mass Index 21.3 03/30/2016 7:17 PM CDT Body Mass Index Percentile 71.94 % 03/30/2016 7:17 PM CD T Growth Chart: [facility] (Girls, 2-20 Years) documented in this encounter Patient Instructions Patient InstructionsFoQueta roque MD - 03/30/2016 8:12 PM CDT Remember you need 4 servings of calcium a day one form veggies and three from milk or supplement like tums one extra strength tums 2-3 x a day Perhaps this can be at meals or brushing teeth time. Take the hormone medication every night and throw away the placebo pills ( 4 of a different color) Return in 3-4 weeks for a follow up. documented in this encounter Progress Notes Queta Fritz MD - 03/30/2016 7:20 PM CDT SUBJECTIVE: Mahi Faye is a 16 year old female with developmental delay, a chromosomal abnormality and ODD who presents to clinic today with mother and sibling. Mother and sibling are in the lobby because of: Chief Complaint Patient presents with ??? RECHECK discuss hormone treatment ??? RECHECK Vitamin D Mahi has a long history of escalating oppositional and aggressive outbursts often leading to interventions by police. She has been hospitalized. There have been long periods of time in which she wasnon compliant with taking medication. Jordy is seening a retail and restaurant associate who is managing her medication and she has been compliant. Mother has not seen any effect from the medication ( Tenex and newly started on Abilify). Mother feels Erasmoould not have to wait weeks between medication adjustments. She is having meltdowns and is not sleeping. Mother brought her in today to get her started on control. Mahi has sig PMS that is becoming more clear over the past few months. She Is more likely to have a violent outburst right before herotherwise normal menses. She also has acne and is not able to control picking the pimples. At this time, Mahi is very willing to take a medication for this problem. She states today that she does not like getting so angry. Mahi Is not sexually active. She is a vulnerable child. Mentrual History: Periods are regular q 28-30 days, lasting 5-7 days. Dysmenorrhea: moderate, occurring premenstrually and first 1-2 days of flow. Cyclic symptoms include: marked irritability and moodiness. Additional symptoms DO NOT include intermenstrual bleeding, spotting, or discharge STD exposure: none known History of previous Pap smear: no ROS negative for recurrent headache, intermentrual bleeding or discharge. EXAM: General: Well nourished, well developed without apparent distress Skin: pos for moderate acne with evidence of sacroiliac picking :deferred ASSESSMENT: Encounter Diagnoses Name Primary? PMS (premenstrual syndrome) ??? Acne vulgaris ??? Oppositional defiant disorder ??? Encounter for immunization Yes ??? Vitamin D insufficiency PLAN: The use of the oral contraceptive has been discussed with the patient as hormone treatment taht willhelp with PMS and acne. This includes the need for regular compliance to ensure adequate effect. I did warn her about anticipated minor side effects such as breakthrough spotting, nausea, breast tenderness, headaches, etc. The parent has been told of the more serious potential side effects such as DE, stroke, and deep vein thrombosis, all of which are very unlikely. Mahi has been asked to report any signs of pain or other problems immediately. RTC during the placebo section of the first packet. I also ordered an increase in the Tenex to see if this would help with sleep/mood. Encouraged motherto call the PNP and alert her to the severity of her signs/symptoms. Perhaps she can adjust medication or give a new PRN medication in . documented in this encounter Nursing Notes Yolie De La Torre MA - 03/31/2016 8:12 AM CDT Injectable Influenza Immunization Documentation 1. Has the patient received the information for the injectable influenza vaccine? YES 2. Is the patient 6 months of age or older? YES 3. Does the patient have any of the following contraindications? Severe allergy to eggs? No Severe allergic reaction to previous influenza vaccines? No Allergy to contact lens solution/thimerosol? No History of Guillain-Canutillo syndrome? No Undergoing chemotherapy or radiation therapy? (vaccine should be given at least 2 weeks prior or 3 weeks after) No Currently have moderate or severe illness? No Vaccination given by ORLANDO Roblero Patient tolerated well Yolie De La Torre MA - 03/30/2016 7:20 PM CDT Chief Complaint Patient presents with ??? RECHECK discuss hormone treatment ??? RECHECK Vitamin D Initial BP 131/82 mmHg Pulse 104 Temp(Src) 97.3 ??F (36.3 ??C) (Oral) Ht 5' 6.75 (1.695 m) Wt 135 lb (61.236 kg) BMI 21.31 kg/m2 SpO2 99% LMP 03/19/2016 Estimated body mass index is 21.31 kg/(m^2) as calculated from the following: Height as of this encounter: 5' 6.75 (1.695 m). Weight as of this encounter: 135 lb (61.236 kg). BP completed using cuff size: regular ORLANDO Roblero documented in this encounter Plan of Treatment Not on filedocumented as of this encounter Visit Diagnoses Diagnosis Encounter for immunization - Primary Need for other specified prophylactic va ccination against single bacterial disease PMS (premenstrual syndrome) Premenstrual tension syndromes Acne vulgaris Other acne Oppositional defiant disorder Oppositional defiant disorder of childho od or adolescence Vitamin D insufficiency Unspecified vitamin D deficiency documented in this encounter Care Teams Automation Operator Relationship Specialty Start Date End Date Queta Fritz MD PCP - General Pediatrics 12/19/15 05/27/20 [address] [place] [address] [id number] Queta Fritz MD PCP - Assigned PCP 03/04/14 09/20/18 [address] [place] [address] [phone] Queta Fritz MD Assigned PCP 03/04/14 04/12/21 [address] [place] [address] [phone] documented as of this encounter
--- OUTSIDE RECORDS SUMMARY | 2022-04-23 23:48 | XMS_ITS | Encounter Summary ---
:2002 Author Organization [place] Address [facility] [place] [address] Care Team Providers Name Role Phone Queta Fritz MD Primary Care Provider [phone] Queta Fritz MD Unavailable [phone] Queta Fritz MD Unavailable [phone] Reason for Visit Reason Comments Clinic Care Coordination - Follow-up Encounter Details Date Type Department Care Team Description 03/24/2016 Care Coordination [facility] Queta Fritz [facility] Care Care Coordination MD Liza Coordination - [address] [place] [address] [address] Follow-up ( ) [address] [address] Social History Tobacco Use Types Packs/Day Years [...] do you attend muslim or Never 2018 sabianism services? 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 Eleanor has attempted to find a psychiatrist for pt without luck. Per Eleanor, pt's [facility] [place] [facility] is Eleanor and SW suggested that she ask her for recommendations for a psychiatrist. Eleanor stated that she would follow-up with NOTCH MACHINE OPERATOR (Eleanor). Plan: Will attempt to contact in 5-7 business days and await response to message. Joseline Connors, HOME VISITOR HOME BASE HEAD START, TEST FIXTURE ASSEMBLER Social Work - Inserter Promotional Item [facility] k[facility] documented in this encounter Plan of Treatment Not on filedocumented as of this encounter Visit Diagnoses Not on filedocumented in this encounter Care Teams Internet Marketing Consultant Relationship Specialty Start Date End Date Queta Fritz MD PCP - General Pediatrics 12/19/15 05/27/20 [address] [place] [address] Queta Fritz MD PCP - Assigned PCP 03/04/14 09/20/18 [address] [place] [address] Queta Fritz MD Assigned PCP 03/04/14 04/12/21 [address] [place] [address] documented as of this encounter
--- OUTSIDE RECORDS SUMMARY | 2022-04-23 23:48 | XMS_ITS | Encounter Summary ---
:2002 Author Organization [place] Address [address] [place] [address] Care Team Providers Name Role Phone Queta Fritz MD Primary Care Provider [phone] Queta Fritz MD Unavailable [phone] Queta Fritz MD Unavailable [phone] Reason for Visit Reason Comments Care Team SW Encounter Details Date Type Department Care Team Description 02/07/2016 Care Coordination [facility] Care Silvino Fritz Care Team (SW) Coordination MD Liza [facility] [place], [place] [address] [place], [place] [phone] (Wo rk) Social History Tobacco Use Types [...] you attend oriental orthodox or Never 2018 anglican services? 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 Eleanor stated that they would prefer to see a psychiatrist at [place] and were told that there was an Radha. mentioned that Mei works at [employer] [facility] and previous was calling Eleanor to follow-up. Eleanor stated that she would appreciate Mei helping to determine options for pt. Plan: Will attempt to contact in 3-5 business days. Eleanor has contact information. Notified Mei that Eleanor would like follow-up Joseline Connors, MARGUERITE, [facility] Social Work - Assembly Hand [facility], and [place] documented in this encounter Plan of Treatment Not on filedocumented as of this encounter Visit Diagnoses Not on filedocumented in this encounter Care Teams Trace Clerk Relationship Specialty Start Date End Date Queta Fritz MD PCP - General Pediatrics 12/19/15 05/27/20 [address] [place] [address] Queta Fritz MD PCP - Assigned PCP 03/04/14 09/20/18 [address] [place] [address] Queta Fritz MD Assigned PCP 03/04/14 04/12/21 [address] [place] [address] documented as of this encounter
--- OUTSIDE RECORDS SUMMARY | 2022-04-23 23:48 | XMS_ITS | Encounter Summary ---
:2002 Author Organization [place] Address [facility] [place] [address] Care Team Providers Name Role Phone Queta Fritz MD Primary Care Provider [phone] Queta Fritz MD Unavailable [phone] Queta Fritz MD Unavailable [phone] Reason for Visit Reason Comments Clinic Care Coordination - Follow-up Care Team Encounter Details Date Type Department Care Team Description 04/01/2016 Care Coordination [facility] Queta Fritz [facility] Care Care Coordination MD Liza Coordination - [address] [place] [address] [address] Follow-up ( ); [place] [address] [place] [address] [id number] Social History Tobacco Use Types Packs/Day Years [...] at Date Recorded 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 Pt resides with her mother and 12 y.o brother. Psychosocial Pt attends school during the day. Financial/Insurance: Pt has [employer] insurance. Transportation: Pt gets transportation through family. Medication Management Spoke to pt's mother (Eleanor) who stated that pt's PCP prescribed medications for pt. Eleanor stated that pt has not started the medication due to her two recent ED visits ([facility] on Wednesday and [facility] on Wednesday). Eleanor is asking to speak to clinic staff to discuss when to start pt on her medications. Conditions and Plan Pt has had two ED visits in the past 48 hours. Current Behavioral Health Concerns: Pt has ongoing mental health concerns. Pt has a therapist at [facility] (Eleanor) and CM at [facility] (Patricia). Pt's mother (Eleanor) indicated that she has been in contact with [facility] to help determine options for pt. Eleanor stated that pt was in day treatment for 2 month without much change. Eleanor indicated that she has been told that pt would not benefit from residential treatment due to her cognitive level. Eleanor is working with Castillo at [facility] to determine options. Intervention for Referral: SAVANNA is following to help determine options for pt needing treatment. Pt will be evaluated for LAY OUT INSPECTOR services through [facility] (would likely only get 3.5 hours/week per conversation with Eleanor). Barriers to goals: Patient agreeability. Strength to goals: Support of mother Patient/Caregiver Understanding: SW will look into options for pt. Potential options could be: [facility], [facility], or [facility].SW transferred pt to clinic staff to help address her concerns. SAVANNA sent message to PCP. Joseline Connors, MARGUERITE, WEIGHMASTER LEAD Social Work - [place] [facility] and [place] documented in this encounter Plan of Treatment Not on filedocumented as of this encounter Visit Diagnoses Not on filedocumented in this encounter Care Teams Senior Account Manager Relationship Specialty Start Date End Date Queta Fritz MD PCP - General Pediatrics 12/19/15 05/27/20 [address] [place] [address] [id number] Queta Fritz MD PCP - Assigned PCP 03/04/14 09/20/18 [address] [place] [address] [phone] Queta Fritz MD Assigned PCP 03/04/14 04/12/21 [address] [place] [address] [phone] documented as of this encounter
--- OUTSIDE RECORDS SUMMARY | 2022-04-23 23:48 | XMS_ITS | Encounter Summary ---
:2002 Author Organization [place] Address [address] [place] [address] Care Team Providers Name Role Phone Queta Fritz MD Primary Care Provider Queta Fritz MD Unavailable [phone] Queta Fritz MD Unavailable [phone] Reason for Visit Reason Onset Date Comments [facility] Handoff 12/31/2015 Encounter Details Date Type Department Care Team Description 12/31/2015 Telephone [facility] Mei Wooten, FREIGHT RATE CLERK [facility] Handoff Health & Addiction [facility] [address] [facility] [address] [facility] [address] [place] [address] [place] [address] [phone] Social History Tobacco Use Types Packs/Day Years [...] do you attend pentecostalism or Never 2018 mormon services? 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 Mom could not talk at this moment. Gave her my direct numberto call me later today. Eleanor agreed. MINA Cisse documented in this encounter Plan of Treatment Not on filedocumented as of this encounter Visit Diagnoses Not on filedocumented in this encounter Care Teams Rock Room Worker Relationship Specialty Start Date End Date Queta Fritz MD PCP - General Pediatrics 12/19/15 05/27/20 [address] [place] [address] [phone] Queta Fritz MD PCP - Assigned PCP 03/04/14 09/20/18 [address] [place] [address] 478137 Queta Fritz MD Assigned PCP 03/04/14 04/12/21 [address] [place] [address] documented as of this encounter
--- OUTSIDE RECORDS SUMMARY | 2022-04-23 23:48 | XMS_ITS | Encounter Summary ---
:2002 Author Organization [place] Address [address] [place] [address] Care Team Providers Name Role Phone Queta Fritz MD Primary Care Provider [phone] Queta Fritz MD Unavailable [phone] Queta Fritz MD Unavailable [phone] Reason for Visit Reason Onset Date Comments [facility] Handoff 01/01/2016 Encounter Details Date Type Department Care Team Description 01/01/2016 Telephone [facility] Mei Wooten, HARDWOOD FLOOR INSTALLER [facility] Handoff Health & Addiction [facility] [address] [facility] [address] [facility] [address] [place] [address] [place] [address] [phone] Social History Tobacco Use Types Packs/Day Years [...] do you attend advent or Never 2018 lutheran services? 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 Gave her my direct line and asked her to call back. documented in this encounter Plan of Treatment Not on filedocumented as of this encounter Visit Diagnoses Not on filedocumented in this encounter Care Teams Can Inspector Relationship Specialty Start Date End Date Queta Fritz MD PCP - General Pediatrics 12/19/15 05/27/20 [address] [place] [address] Queta Fritz MD PCP - Assigned PCP 03/04/14 09/20/18 [address] [place] [address]76 Queta Fritz MD Assigned PCP 03/04/14 04/12/21 [address] [place] [address] [phone] documented as of this encounter
--- OUTSIDE RECORDS SUMMARY | 2022-04-23 23:48 | XMS_ITS | Encounter Summary ---
:2002 Author Organization [place] Address [address] [place] [address] Care Team Providers Name Role Phone Queta Fritz MD Primary Care Provider [phone] Queta Fritz MD Unavailable [phone] Queta Fritz MD Unavailable [phone] Reason for Visit Reason Onset Date Comments Counseling 02/07/2016 Encounter Details Date Type Department Care Team Description 02/07/2016 Telephone [facility] Mei Wooten, BAKE ROOM WORKER Counseling Health & Addiction CLINIC - B [facility] [address] [facility] [address] [facility] [address] [place] [address] [place] [address] [phone] Social History Tobacco Use Types Packs/Day Years [...] do you attend moravian or Never 2018 alevism services? 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 Returned call from [facility] that Eleanor had questions about seeing a psychiatrist. Talked to Eleanor she asked about seeing Radha since Mahi's INSTRUMENT WORKER recommenced she she a psychiatrist long term care administrator. Explained the role of Radha and that she is a INSTRUMENT WORKER and her role is a consultation Eleanor wanted to know if it was normal for Mahi to have to see a therapist to also see a psychiatrist in a practice. I told her it was a normal practice. She would like to find a psychiatrist. She was going to call her insurance company to find one. She states that Mahi is at a [facility] at [facility]. She is still not doing well and they are starting to talk about long term care administrator residential care. documented in this encounter Plan of Treatment Not on filedocumented as of this encounter Visit Diagnoses Not on filedocumented in this encounter Care Teams Ophthalmic Technician Apprentice Relationship Specialty Start Date End Date Queta Fritz MD PCP - General Pediatrics 12/19/15 05/27/20 [address] [place] [address] [phone] Queta Fritz MD PCP - Assigned PCP 03/04/14 09/20/18 [address] [place] [address] Queta Fritz MD Assigned PCP 03/04/14 04/12/21 [address] [place] [address] documented as of this encounter
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
--- OUTSIDE RECORDS SUMMARY | 2022-04-23 23:48 | XMS_ITS | Encounter Summary ---
:2002 Author Organization [place] Address [facility] [place] [address] Care Team Providers Name Role Phone Queta Fritz MD Primary Care Provider [phone] Queta Fritz MD Unavailable [phone] Queta Fritz MD Unavailable [phone] Reason for Visit Reason Comments Clinic Care Coordination - Follow-up Encounter Details Date Type Department Care Team Description 02/12/2016 Care Coordination [facility] Queta Fritz [facility] Care Care Coordination MD Liza Coordination - [address] [place] [address] [address] Follow-up ( ) [address] [address] Social History Tobacco Use Types Packs/Day Years [...] do you attend mandaen or Never 2018 hoahaoism services? 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 Spoke to pt's mother (Eleanor) who stated that pt sees a [facility] already and that they want pt to see an actually psychiatrist. Eleanor will contact her insurance to determine options for psychiatry locations. Eleanor will contact as needed to update on scheduling a psychiatry. Plan: Will chart review in 3-4 weeks unless contacted prior. Joseline Connors, MARGUERITE, CARBON CLEANER Social Work - Refining Machine Operator [facility] MinongJessica keller documented in this encounter Plan of Treatment Not on filedocumented as of this encounter Visit Diagnoses Not on filedocumented in this encounter Care Teams Light Technician Relationship Specialty Start Date End Date Queta Fritz MD PCP - General Pediatrics 12/19/15 05/27/[address] [phone] Queta Fritz MD PCP - Assigned PCP 03/04/14 09/20/18 [address] [address] Queta Fritz MD Assigned PCP 03/04/14 04/12/21 [address] [address] documented as of this encounter
--- OUTSIDE RECORDS SUMMARY | 2022-04-23 23:48 | XMS_ITS | Encounter Summary ---
:2002 Author Organization [place] Address [address] [place] [address] Care Team Providers Name Role Phone Queta Fritz MD Primary Care Provider [phone] Queta Fritz MD Unavailable [phone] Queta Fritz MD Unavailable [phone] Reason for Visit Reason Onset Date Comments Forms 01/15/2016 FMLA Encounter Details Date Type Department Care Team Description 01/15/2016 Telephone [facility] Christopher Fritz, Forms ([place]) Krystle CORLEY [address] [place] [address] [place], [place] [phone] (Wo rk) Social History Tobacco Use Types [...] do you attend jainism or Never 2018 anglican services? 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 Call to Mom to update. Requested copy be mailed to her. Done. Telephone Encounter - Leti Holder - 01/15/2016 11:46 AM CDT Form received from: [facility] Form requesting following info/need: FMLA Form MIKE needed?: No Location of form: Dr Fritz's basket When completed the route for return: Fax to [phone]. Call mom Martínez) at [phone] documented in this encounter Plan of Treatment Not on filedocumented as of this encounter Visit Diagnoses Not on filedocumented in this encounter Care Teams Furniture Delivery Driver Relationship Specialty Start Date End Date Queta Fritz MD PCP - General Pediatrics 12/19/15 05/27/20 [address] [place] [address] [phone] Queta Fritz MD PCP - Assigned PCP 03/04/14 09/20/18 [address] [place] [address] [phone] Queta Fritz MD Assigned PCP 03/04/14 04/12/21 [address] [place] [address] 190887 documented as of this encounter
--- OUTSIDE RECORDS SUMMARY | 2022-04-23 23:48 | XMS_ITS | Encounter Summary ---
:2002 Author Organization [facility] Address [address] [place] [address]. [place] [address] Care Team Providers Name Role Phone Queta Fritz MD Primary Care Provider [phone] Queta Fritz MD Unavailable [phone] Queta Fritz MD Unavailable [phone] Reason for Visit Reason Onset Date Comments Eval/Assessment 12/26/2015 PC with Janet BOSWELL on 7A as pt was just under her care with no referral. Marbella toro believes she would be a poor fit for day treatment an d does not recommend day treatment, recommends CADI serv ices and DD worker, based on functioning not a go od fit. She advised freelance copywriter to call [facility] referring therapist and wait to call until tomorrow. Encounter Details Date Type Department Care Team Description 12/26/2015 Telephone [facility] Francisca Loredo/Dawit mcbride (PC with Mental Health & JAZMYNE Laird on 7A as pt Addiction Services was just under her care [id number] with no referral. [employer], [place] Janet corral [place] [phone] would be a poor fit for [phone] day treatment a nd does not recommend d ay treatment, waqas mmends CADI services a nd DD worker, based o n functioning not a good fit. She advise d freelance copywriter to call [facility] ref erring therapist and w ait to call until josias rrow. ) Social History Tobacco Use Types Packs/Day [...] do you attend samaritan or Never 2018 adventism services? Do you [...] at Date Recorded Female 09/04/2021 9:00 PM TRANSCRIPTER documented as of this encounter Plan of Treatment Not on filedocumented as of this encounter Visit Diagnoses Not on filedocumented in this encounter Care Teams Band Scroll Saw Operator Relationship Specialty Start Date End Date Queta Fritz MD PCP - General Pediatrics 12/19/15 05/27/20 [address] [place] [address] [id number] Queta Fritz MD PCP - Assigned PCP 03/04/14 09/20/18 [address] [place] [address] [phone] Queta Fritz MD Assigned PCP 03/04/14 04/12/21 [address] [place] [phone] documented as of this encounter
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
--- OUTSIDE RECORDS SUMMARY | 2022-04-23 23:49 | XMS_ITS | Encounter Summary ---
:2002 Author Organization [facility] Address [address] [place] [address] Care Team Providers Name Role Phone Queta Fritz MD Primary Care Provider [phone] Queta Fritz MD Primary Care Provider [phone] Queta Fritz MD Unavailable [phone] Queta Fritz MD Unavailable [phone] Reason for Visit Reason Onset Date Comments Other 12/17/2015 [facility] Encounter Details Date Type Department Care Team Description 12/17/2015 Telephone [facility] Queta Fritz [facility] Krystle De Jesus MD [address] [place], [place] [phone] [place], [place] [phone] (Wo rk) Social History Tobacco Use Types [...] or slept in a prison (including now)? 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 Mahi is an inpatient at [facility] through the weekend. I spoke to Mei who will work with this patient on placement as well. Telephone Encounter - Celine Stewart, RN - 12/17/2015 8:15 AM CDT Mom calling--she continues to have problems with patient's behavior and is trying to get her enrolled in [facility] as recommended by PCP. PCP has called [facility] in the past and mom had a good response from them, however at that time there were some problems with insurance and mom was not able to enroll pt there. Insurance issues have been resolved and mom has tried to contact [facility], but has been told that they are full. She is wondering if PCP can try to call [facility] again since they were very receptive to taking pt after PCP had called last time. Mom is aware that PCP is not available today. Please advise. Celine Stewart RN documented in this encounter Plan of Treatment Not on filedocumented as of this encounter Visit Diagnoses Not on filedocumented in this encounter Care Teams Main Line Station Engineer Relationship Specialty Start Date End Date Queta Fritz MD PCP - General Pediatrics 11/15/14 12/18/15 [address] [place] [address] Queta Fritz MD PCP - General Pediatrics 12/19/15 05/27/20 [address] [place] [address] Queta Fritz MD PCP - Assigned PCP 03/04/14 09/20/18 [address] [place] [address] [phone] Qeuta Fritz MD Assigned PCP 03/04/14 04/12/21 [address] [place] [address] [phone] documented as of this encounter
--- OUTSIDE RECORDS SUMMARY | 2022-04-23 23:49 | XMS_ITS | Encounter Summary ---
:2002 Author Organization [facility] Address [address] [place] [address] Care Team Providers Name Role Phone Queta Fritz MD Primary Care Provider [phone] Queta Fritz MD Unavailable [phone] Queta Fritz MD Unavailable [phone] Reason for Visit Reason Onset Date Comments [facility] Handoff 12/19/2015 Encounter Details Date Type Department Care Team Description 12/19/2015 Telephone [facility] Mei Wooten, FROZEN PIE MAKER [facility] Handoff Health & [facility] [address] [facility] [facility] [address] [facility] [address] [place] [address] [place] [address] [phone] Social History Tobacco Use Types Packs/Day Years [...] do you attend restorationism or Never 2018 lutheran services? 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 Gave mom her name and number to schedule whenpatient gets out of the hospital to talk about options for treatment. [place] Intervention: Outreach to mom for more support Safety Concerns: Risk status (Self / Other harm or suicidal ideation) Client denies current fears or concerns for personal safety. Client reports the following current or recent suicidal ideation or behaviors: inpatient for her SI.. Client denies current or recent homicidal ideation or behaviors. Client denies current or recent self injurious behavior or ideation. Client denies other safety concerns. Disposition: A safety and risk management plan has not been developed at this time, however client was given the after-hours number / 911 should there be a change in any of these risk factors. MARGUERITE Cisse documented in this encounter Plan of Treatment Not on filedocumented as of this encounter Visit Diagnoses Not on filedocumented in this encounter Care Teams Rubber Curer Relationship Specialty Start Date End Date Queta Fritz MD PCP - General Pediatrics 12/19/15 05/27/20 [address] [place] [address] Queta Fritz MD PCP - Assigned PCP 03/04/14 09/20/18 [address] [place] [address] Queta Fritz MD Assigned PCP 03/04/14 04/12/21 [address] [place] [address] documented as of this encounter
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
--- OUTSIDE RECORDS SUMMARY | 2022-04-23 23:49 | XMS_ITS | Encounter Summary ---
:2000 Author Organization [facility] Address [address] [place] [address] Care Team Providers Name Role Phone Queta Fritz MD Primary Care Provider Queta Fritz MD Primary Care Provider [phone] Queta Fritz MD Unavailable [phone] Queta Fritz MD Unavailable [phone] Reason for Visit Reason Onset Date Comments Nurse Advice Line 11/16/2015 returned call Encounter Details Date Type Department Care Team Description 11/16/2015 Telephone [facility] Rochelle Ivey, Nurse Advice Line Clinic [facility] (returned call) [address] [place] COUNSELING [place], [place] [address] [address] [place] [address] [phone] (Wo rk) Social History Tobacco Use Types [...] do you attend rastafari or Never 2018 cheondoism services? 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 Eleanor said Mahi is refusing to take the medication. In oneof her fits or rage she threw out the medication. Please call Eleanor back on her cell phone. Elvie Fish RN [facility] documented in this encounter Plan of Treatment Not on filedocumented as of this encounter Visit Diagnoses Not on filedocumented in this encounter Care Teams Roof Cement And Paint Maker Helper Relationship Specialty Start Date End Date Queta Fritz MD PCP - General Pediatrics 11/15/14 12/18/[address] [place] [address] [phone] Queta Fritz MD PCP - General Pediatrics 12/19/15 05/27/[address] [place] [address] [phone] Queta Fritz MD PCP - Assigned PCP 03/04/14 09/20/[address] [place] [address] Queta Fritz MD Assigned PCP 03/04/14 04/12/[address] [place] [address] [phone] documented as of this encounter
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
--- OUTSIDE RECORDS SUMMARY | 2022-04-23 23:49 | XMS_ITS | Encounter Summary ---
:2002 Author Organization [place] Address [address] [place] [address] Care Team Providers Name Role Phone Queta Fritz MD Primary Care Provider [phone] Queta Fritz MD Unavailable [phone] Queta Fritz MD Unavailable Encounter Details Date Type Department Care Team Description 08/07/2015 Office Visit [facility] Rochelle Ivey, Adjustm ent disorder Services [facility] with mixed [facility] COUNSELING disturbance of [address] emotions and conduct [place], [place] [address] (Primary Dx) [phone] [place] [address] (Wo rk) Social History Tobacco [...] do you attend restoration or Never 2018 yarsanism services? 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 documented as of this encounter Progress Notes Rochelle Ivey, SLEEVER - 08/21/2015 9:45 AM CST Progress Note Client Name: Mahi Faye Date: 08/07/2015 Service Type: Individual Session Start Time: 4:00 pm Session End Time: 5:00 pm Session Length: 60 minutes Session #: 18 Attendees: Client attended alone Treatment Plan Last Reviewed: review at next session DATA Progress Since Last Session (Related to Symptoms / Goals / Homework): Symptoms: Symptoms and associated behaviors reported included aggression, irritable, anger, difficulty redirecting, impulsive, low frustration tolerance and argumentative. Homework: Achieved / completed to satisfaction Episode of Care Goals: Minimal progress - ACTION (Actively working towards change); Intervened by reinforcing change plan / affirming steps taken Current / Ongoing Stressors and Concerns: Met with client for a return visit. Current concerns reported included the followin. Family issues: Client's parents are in the process of a divorce. Client's father has MS. Father lives in a nursing home. Conflict with younger brother and mother. 2. Academic issues: aggression exhibited at school, client receives special education resources, relationship issues with authority figures. 3. 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 Treatment Objective(s) Addressed in This Session: identify at least three deescalation techniques for intervening on the escalation track and record at least ten pleasant exchanges with client's mother and brother each Client reportedly continued to be aggressive towards her mother. Client also having trouble ignoring comments by her younger brother. More conflict between the two reported, as well as some conflicts with adults at school. Client has not been consistent with her personal hygiene despite the incentives and plan developed at the last meeting to improve client's hygiene. Intervention: Motivational Interviewing: Discussed client's aggression towards her mother. Identified how client's aggression affects her relationship with her mother. Revisited conversations about acceptable and unacceptable behavior to have with people and had client rate her self on whether her behavior was acceptable or not. Explored what client could do to attempt to repair the relationship with her mother. Also discussed the concerns about the client's use of her anger management and whether she has been actively using her strategies. Client not using all the time. Client encouraged to actively use strategies to mange her anger and to reduce aggression towards others. ASSESSMENT: Current Emotional / Mental Status (status of significant symptoms): Risk status (Self / Other harm or suicidal ideation) Client denies current fears or concerns for personal safety. Client denies current or recent suicidal ideation or behaviors. Client denies current or recent homicidal ideation or behaviors. Client denies current or recent self injurious behavior or ideation. Client denies other safety concerns. A safety and risk management plan has not been developed at this time, however client was given theafter-hours number should there be a change in any of these risk factors. Appearance: Appropriate Eye Contact: Poor Psychomotor Behavior: Restless Attitude: Easily distractable Orientation: All Speech Rate / Production: Normal Volume: Normal Mood: Angry Irritable Affect: Appropriate Thought Content: Clear Thought Form: Coherent Logical Insight: Fair Medication Review: No current psychiatric medications prescribed Medication Compliance: NA Changes in Health Issues: None reported Chemical Use Review: Substance Use: Chemical use reviewed, no active concerns identified Tobacco Use: No current tobacco use. Collateral Reports Completed: Not Applicable PLAN: (Client Tasks / Therapist Tasks / Other) - Client will take a shower each day. - Client will brush teeth twice a day. - Client will practice using her calming and anger management strategies three times a day to manageher reaction to provocations. - Client will complete a anger log for each time she become angry to promote better understanding of client's reaction to times when she gets and the outcome. Rochelle Ivey LICSW L CAMPAIGN SPECIALIST documented in this encounter Plan of Treatment Not on filedocumented as of this encounter Visit Diagnoses Diagnosis 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 - Primary documented in this encounter Care Teams Advertising Editor Relationship Specialty Start Date End Date Queta Fritz MD PCP - General Pediatrics 11/15/14 12/18/15 [address] [place] [address] [id number] Queta Fritz MD PCP - Assigned PCP 03/04/14 09/20/18 [address] [place] [address] Queta Fritz MD Assigned PCP 03/04/14 04/12/21 [address] [address] documented as of this encounter
--- OUTSIDE RECORDS SUMMARY | 2022-04-23 23:49 | XMS_ITS | Encounter Summary ---
:2002 Author Organization [place] Address [address] [place] [address] Care Team Providers Name Role Phone Queta Fritz MD Primary Care Provider [phone] Queta Fritz MD Unavailable [phone] Queta Fritz MD Unavailable [phone] Reason for Visit Reason Comments Suture Removal Encounter Details Date Type Department Care Team Description 10/30/2015 Office Visit [facility] Vis it for suture removal [place] (Primary Dx) [facility], [address] [place] [address] Social History Tobacco Use Types Packs/Day Years [...] do you attend christianity or Never 2018 pentecostalism services? 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 The patient has had the sutures in place for 13 days. There has been no history of infection or drainage. O: 3 sutures are seen located on the left inner thigh. The wound is healing well with no signs of infection. Tetanus status is up to date. A: Suture removal. P: All sutures were easily removed today. Routine wound care discussed. The patient will follow up as needed. Antonia Yang RN documented in this encounter Plan of Treatment Not on filedocumented as of this encounter Visit Diagnoses Diagnosis Visit for suture removal - Primary Encounter for removal of sutures documented in this encounter Care Teams Material Processor Relationship Specialty Start Date End Date Queta Fritz MD PCP - General Pediatrics 11/15/14 12/18/15 [address] [id number] Queta Fritz MD PCP - Assigned PCP 03/04/14 09/20/[address] [id number] Queta Fritz MD Assigned PCP 03/04/14 04/12/[address] [address] documented as of this encounter
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
--- OUTSIDE RECORDS SUMMARY | 2022-04-23 23:49 | XMS_ITS | Encounter Summary ---
:2002 Author Organization [place] Address [address] [place] [address] Care Team Providers Name Role Phone Queta Fritz MD Primary Care Provider [phone] Queta Fritz MD Unavailable [phone] Queta Fritz MD Unavailable [phone] Encounter Details Date Type Department Care Team Description 10/03/2015 Office Visit [facility] Priya Ivey, Adjustm ent disorder with mixed disturbance of emotions and conduct (Primary Dx); Services [facility] Autism spectrum disorder [facility] COUNSELING [address] [place], [place] [address] [facility] [phone] [place], [place] [id number] (Wo rk) Social History Tobacco Use Types [...] do you attend christian or Never 2018 rastafarian services? 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 Father lives in a usp. Conflict with younger brother and mother. 2. Academic issues: aggression exhibited at school, client receives special education resources, relationship issues with authority figures. 3. Medical/Health: Client recently diagnosed with Autism. Treatment Objective(s) Addressed in This Session: identify at least three deescalation techniques for intervening on the escalation track and record at least ten pleasant exchanges with client's mother and brother each Initially planned to meet and check in with client's mother briefly and meet with client for the majority of the session. However, mother's concerns and discussion on how to address the concerns took longer than planned. Client was not able to be seen but journalists and other writers scheduled a follow up appointment for client to be seen. Client's mother reported that there was continued conflict between client and younger brother. Client's mother feeling at a loss for what to do. Client's mother also expressed concernabout client's personal hygiene. Client is reportedly not taking a shower each day. Mother mentionedthat it has been a few days since client took a bath. Client's mother has tried to encourage the client to showered, even talking with her about the possible outcomes of not keeping up with her hygiene. However, client has not followed through. Client's mother reported that she is apprehensive about pushing client to shower for fear of how the client will react. Intervention: Discussed the need for additional support for client and client's family. Client had reportedly been assessed and was diagnosed with Autism Spectrum. Spoke with mother about client working with a professional with experience and competency with work with client's with autism. Melter Supervisor Oxygen Furnace recommended that client be referred to [facility] or [facility] for services. Mother in agreement and began the referral process by reaching out to each agency to schedule an intake. Melter Supervisor Oxygen Furnace had to leave a message for the [facility] but was able to get information about openings at [facility]. Mother decided to call after the appointment to set up the appointment. Also discussed the option of medication management. Client's mother provided with the name of Celine Oro at [facility] ([phone]). Melter Supervisor Oxygen Furnace will also check to see if Dr. Perez at [facility] ([phone]) is taking new clients. Also discussed client's personal hygiene and what mother could do to encourage client to follow through with talking showers each day. ASSESSMENT: Current Emotional / Mental Status (status [...] day to manage her reaction to provocations. Priya Ivey LICSW documented in this encounter Miscellaneous Notes Addendum Note - Priya Ivey LICSW - 10/23/2015 3:49 PM CDT Addended by: PRIYA IVEY on: 10/23/2015 03:49 PM Modules accepted: Level of Service documented in this encounter Plan of Treatment Not on filedocumented as of this encounter Visit Diagnoses Diagnosis 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 - Primary Autism spectrum disorder Autistic disorder, current or active sta te documented in this encounter Care Teams Golf Course Mechanic Relationship Specialty Start Date End Date Queta Fritz MD PCP - General Pediatrics 11/15/14 12/18/15 [address] [place] [address] Queta Fritz MD PCP - Assigned PCP 03/04/14 09/20/18 [address] [place] [address] Queta Fritz MD Assigned PCP 03/04/14 04/12/21 [address] [place] [address] documented as of this encounter
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
--- OUTSIDE RECORDS SUMMARY | 2022-04-23 23:49 | XMS_ITS | Encounter Summary ---
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 Father lives in a prison. Conflict with younger brother and mother. 2. Academic issues: aggression exhibited at school, client receives special education resources, relationship issues with authority figures. 3. Medical/Health: Client recently diagnosed with Autism. Treatment Objective(s) Addressed in This Session: identify at least three deescalation techniques for intervening on the escalation track and record at least ten pleasant exchanges with client's mother and brother each Continued conflict between client and younger brother. Client's mother reported that client is easily provoked by brother. Client not able to disengaged or ignore provocation from brother. Mother's expressed concern about client's personal hygiene. Client is reportedly not taking a showereach day. Mother mentioned that it has been a few days since client took a bath. Client's mother hastried to encourage the client to showered, even talking with her about the possible outcomes of not keeping up with her hygiene. However, client has not followed through. Client's mother reported that she is apprehensive about pushing client to shower for fear of how the client will react. Intervention: Discussed client's recent behaviors. Focused attention on client's personal hygiene. Discussed client's reasons for not taking a shower each day. Client did not feel it was necessary each day and preferred to shower when she was ready. Discussed client's understanding of some of the consequences of not keeping up with her hygiene. Client stated that she did not care about hose consequences. Attempted to create an incentives reward chart for following through with her personal hygiene. Client was encouraged to take a shower every other day and that she would be given a reward from the bid writer for following through with this plan. Client agreed to the plan and choose to shower on days that she wouldbe swimming or her gym unit in school. ASSESSMENT: Current Emotional / Mental Status (status [...] to manage her reaction to provocations. - Client will take a shower every other each day between 10/06/2014 and 10/13 (client's next appointment). - Antique Finisher will continue working on referring client for services through [facility] and catrachita Zhang. Rochelle Ivey LICSW documented in this encounter Plan of Treatment Not on filedocumented as of this encounter Visit Diagnoses Diagnosis 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 - Primary Autism spectrum disorder Autistic disorder, current or active sta te documented in this encounter Care Teams Buffing Wheel Operator Relationship Specialty Start Date End Date Queta Fritz MD PCP - General Pediatrics 11/15/14 12/18/15 [address] [place] [address] [id number] Queta Fritz MD PCP - Assigned PCP 03/04/14 09/20/18 [address] [place] [address] [id number] Queta Fritz MD Assigned PCP 03/04/14 04/12/21 [address] [place] [address] [phone] documented as of this encounter
--- OUTSIDE RECORDS SUMMARY | 2022-04-23 23:49 | XMS_ITS | Encounter Summary ---
:2002 Author Organization [facility] Address [address] [place] [address] Care Team Providers Name Role Phone Queta Fritz MD Primary Care Provider [phone] Queta Fritz MD Unavailable [phone] Queta Fritz MD Unavailable [phone] Encounter Details Date Type Department Care Team Description 08/07/2015 Medical Correspondence [facility] Scan, COMMUNICATION TO Clinic [place] Non-Provider PHYSICIAN OF [address] SERVICES- [address] [place] [address] Social History Tobacco Use Types Packs/Day [...] do you attend yarsani or Never 2018 worship services? 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
--- OUTSIDE RECORDS SUMMARY | 2022-04-23 23:49 | XMS_ITS | Encounter Summary ---
:2000 Author Organization [facility] [facility] Address [address] [place] [address] Care Team Providers Name Role Phone Queta Fritz MD Primary Care Provider [phone] Queta Fritz MD Unavailable [phone] Qeuta Fritz MD Unavailable [phone] Reason for Visit Reason Onset Date Comments Forms 08/30/2015 [facility] Encounter Details Date Type Department Care Team Description 08/30/2015 Telephone [facility] Queta Fritz Forms ([facility]) Clinic Krystle De Jesus MD [address] [place], [place] [address] [place] [address] [phone] (Wo rk) Social History Tobacco Use Types [...] or relatives? How often do you attend hindu or Never 2018 confucianist services? 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 Copy sent to abstraction. Copy mailed to parent OMIC ANALYST Telephone Encounter - Queta Fritz MD - 09/05/2015 7:22 PM ECONOMIC ANALYST done OMIC ANALYST Telephone Encounter - Leti Holder - 08/30/2015 10:16 AM CST Form received from: [facility] Form requesting following info/need: medical examination MIKE needed?: No Location of form: Dr Fritz's basket When completed the route for return: Fax to [phone] and mail to parent OMIC ANALYST documented in this encounter Plan of Treatment Not on filedocumented as of this encounter Visit Diagnoses Not on filedocumented in this encounter Care Teams Research Archaeologist Relationship Specialty Start Date End Date Queta Fritz MD PCP - General Pediatrics 11/15/14 12/18/15 [address] [address] Queta Fritz MD PCP - Assigned PCP 03/04/14 09/20/18 [address] [place] [address] Queta Fritz MD Assigned PCP 03/04/14 04/12/21 [address] [place] [id number] documented as of this encounter
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
--- OUTSIDE RECORDS SUMMARY | 2022-04-23 23:49 | XMS_ITS | Encounter Summary ---
:2002 Author Organization [employer] Address [address] [place] [address] Care Team Providers Name Role Phone Queta Fritz MD Primary Care Provider [phone] Queta Fritz MD Unavailable [phone] Queta Fritz MD Unavailable [phone] Encounter Details Date Type Department Care Team Description 10/14/2015 Telephone [facility] Services Rochelle Ivey, [facility] [address] [facility] [address] [facility] [place] [phone] [place], [place] [phone] (Wo rk) Social History Tobacco Use Types [...] do you attend hoahaoism or Never 2018 jain services? 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 Bond Underwriter spokewith mother about today's appointment. Mother thought the appointment was for the after seeing a calendar made by investment underwriter and client during client's last appointment that mistakenly had the appointment down for the . Mother was offered an appointment for the at 3 pm to make up for the confusion. MARGUERITE Barbosa, [place] documented in this encounter Plan of Treatment Not on filedocumented as of this encounter Visit Diagnoses Not on filedocumented in this encounter Care Teams Deli Cook Relationship Specialty Start Date End Date Queta Fritz MD PCP - General Pediatrics 11/15/14 12/18/15 [address] [place] [id number] Queta Fritz MD PCP - Assigned PCP 03/04/14 09/20/18 [address] [place] [phone] Queta Fritz MD Assigned PCP 03/04/14 04/12/21 [address] [place] [phone] documented as of this encounter
--- OUTSIDE RECORDS SUMMARY | 2022-04-23 23:49 | XMS_ITS | Encounter Summary ---
:2000 Author Organization [facility] Address [address] [place] [address] Care Team Providers Name Role Phone Queta Fritz MD Primary Care Provider [phone] Queta Fritz MD Primary Care Provider [phone] Joseline Connors ENVIRONMENTAL AIDE Unavailable Queta Fritz MD Unavailable [phone] Queta Fritz MD Unavailable [phone] Tc Jama MD Unavailable Tc Jama MD Unavailable Khalida Beyer MD Primary Care Provider Rosario Noe APRN CNM Unavailable [phone] Eda Duarte MD Unavailable Mike Sherwood MD Unavailable [phone] Navid Paige MD Unavailable Norma Ruggiero APRN RUBBER SPLICER Unavailable [phone] Queta Fritz MD Unavailable [phone] Norma Ruggiero APRN RUBBER SPLICER Unavailable [phone] No Ref-Primary, Physician Primary Care Provider [phone] Alber Estrada PA-C Unavailable Reason for Visit Reason Onset Date Comments MH/CD Inpatient 12/17/2015 Encounter Details Date Type Department Care Team Description 12/17/2015 Telephone Health Angie Generic, Behavioral MH/ CD Inpatient Behavioral Health In eloisa Carbone MD [address] [place] [phone] Social History Tobacco Use Types Packs/Day Years [...] do you attend bahai or Never 2018 orthodox services? 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 B: pt being brought to er by mom. Pt worsening aggression, outbursts past several days/week. Pt inc aggression at home, mainly towards mom. Incident last evening, mom broke a toe and pt ran away, came Back on own. Today, while on Phone w/mom, therapist states pt screaming, throwing objects and thretening mom. Therapist able to calm pt down to enable mom to transport to er. Pt recently had fromal dx of autismand referred to [facility]. A: dx autism. Pt no longer has services with [facility] therapist but wa helping today. 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 Rule Out COVID-19 04/21/2022 04/21/2022 04/21/2022 8:5 7 PM CDT documented as of this encounter Care Teams Material Preparation Worker Relationship Specialty Start Date End Date Queta Fritz PCP - General Pediatrics 11/15/14 12/18/15 MD L[address] [employer] [address] [place] [address] Queta Fritz PCP - General Pediatrics 12/19/15 05/27/20 MD Liza [address] [employer] [employer] [place] [address] Queta Fritz PCP - Assigned PCP 03/04/14 MD Liza [address] [employer] [address] [place] [address] Khalida Beyer MD PCP - General Psychiatry 05/28/20 08/22/21 No Ref-Primary, PCP - General 08/23/21 Physician Joseline Connors MSW [facility] 11/05/16 11/23/16 Queta Fritz Assigned PCP 03/04/14 04/12/21 MD Liza [address] [employer] [address] [place] [address] Tc Jama MD Pediatric Surgery 02/14/[address] [place] [address] Tc Jama Assigned Pediatric 05/10/20 Specialist Provider [address] [place], [place] [id number] [address] [id number] Rosario Noe, Assigned OBGYN Provider 07/21/20 01/16/22 CT TECHNOLOGIST CNM [address] [place] [address] Eda Duarte Assigned Surgical Provider 10/02/20 MD Alex [address] [facility] [address] [place], [place] [address] Mike Sherwood Assigned Sleep Provider 01/31/21 MD Navid [address] [place] [address] [id number] Navid Paige MD Assigned Musculoskeletal 03/16/21 [address] [facility] Provider [place], [place] [address] Norma Ruggiero, Assigned PCP 04/13/21 05/24/21 CT TECHNOLOGIST RUBBER SPLICER [address] [place], [place] [address] Queta Fritz Assigned PCP 05/25/21 07/26/21 MD Liza [address] [facility] [address] [place], [place] [id number] Norma Ruggiero, Assigned PCP 07/27/21 09/06/21 CT TECHNOLOGIST RUBBER SPLICER [address] [place], [place] [address] Alber Estrada Assigned PCP 09/07/21 KARIN Lagunas [address] [place], [place] [id number] documented as of this encounter
--- OUTSIDE RECORDS SUMMARY | 2022-04-23 23:49 | XMS_ITS | Encounter Summary ---
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 expressive communication;encourage clear communication of needs;redirection of intrusive behaviors;provide emotional support;establish therapeutic relationship;assist with developing & utilizing healthy copingstrategies;provide positive feedback for use of effective coping skills;build upon strengths Social and Therapeutic Interventions (Behavioral Disturbance) encourage socialization with peers;encourage effective boundaries with peers;encourage participation in therapeutic groups and milieu activities Patient had a cooperative and pleasant shift. Patient did not require seclusion/restraints to manage behavior. Beth Morales did participate in groups and was visible in the milieu. Notable mental health symptoms during this shift:distractable highly active Full range affect Patient is working on these coping/social skills: Distraction Swimming, riding her bike Visitors during this shift included none. Overall, the visit was n/a. Significant events during the visit included n/a. Other information about this shift: Pt's goal was to go swimming, which she enjoyed doing. She said she was feeling happy and excited, and her affect reflected this. Pt was pleasant and cooperative. Luis Sanders MD - 12/20/2015 1:32 PM CDT [facility], [facility] Progress Note Impression: This is a 15-year-old female with developmental delay, borderline intellectual functioning, carryingdiagnosis of autism spectrum disorder who was brought in by family for worsening behavioral outbursts in the last several months, culminating in aggression to self and others, primarily in the home andstated suicidal ideation.?? Significant psychosocial stressors of recent divorce, father's terminal illness and recent moves and likely bullying.?? No obvious contributions of substances.?? The patient's unspecified chromosomal abnormality, developmental delays and cognition likely contributing to the patient's ability to tolerate distress, frustration tolerance and use positive coping skills.?? Diagnoses & Plan PRINCIPAL DIAGNOSIS:?? Autism spectrum disorder; Disruptive mood dysregulation disorder.?? Unit ITC.?? Attending Dr. Sanders. ? MEDICATIONS:?? continue Abilify 1 mg b.i.d. targeting irritability, agitation, aggression in ASD andmood. Consider titration to 2.5mg BID. ? LABORATORY IMAGING:?? Routine metabolic labs reviewed.?? Consults:?? None.?? The patient will be treated in therapeutic milieu with appropriate and group therapies as described.?? Family assessment completed. ? SECONDARY DIAGNOSIS OF CONCERN THIS ADMISSION:?? Borderline intellectual functioning.?? Plan:?? Monitor for needs. ? MEDICAL DIAGNOSIS TO BE ADDRESSED THIS ADMISSION:?? None.?? Plan:?? Continue to evaluate.?? Routine metabolic labs. ? RELEVANT PSYCHOSOCIAL STRESSORS:?? Father's illness, recent move, recent divorce, possible bullying at school, social. ? LEGAL STATUS:?? Voluntary. ? SAFETY ASSESSMENT:?? Q.15 minute checks.?? Precautions:?? Suicide.?? The patient has not required locks, seclusion or restraints in the past 24 hours to maintain safety.?? Risks, benefits, alternativesand side effects have been discussed and understood by patient and caregivers. ? ANTICIPATED DISPOSITION:?? Discharge date: Wednesday to home.?? We will make referrals for outpatient followup.?? Target symptoms to stabilize behavioral outbursts, mood, SI. ? ATTESTATION:?? The patient has been seen and evaluated by me, Dr. Sanders. ? LUIS SANDERS MD? Interim History: The patient's care was discussed with the treatment team and chart notes were reviewed. Today during the interview with the treatment team calm cooperative no agitation aggression or impulsivity. Hyper at times On interview, calm cooperative. Continue to feel meds are helping irritability and mood. Denies si/sib or hi. Says sleeping good. Regarding possible side effects, notes mild SHARPE and N, yesterday but none today yet. The 10 point Review of Systems is negative other than noted in the HPI Medications: Current Facility-Administered Medications Medication ??? lidocaine (LMX4) 4% topical cream ??? OLANZapine zydis (zyPREXA) disintegrating tablet 5 mg Or ??? OLANZapine (zyPREXA) injection 5 mg ??? diphenhydrAMINE (BENADRYL) capsule 25 mg Or ??? diphenhydrAMINE (BENADRYL) injection 25 mg ??? hydrOXYzine (ATARAX) tablet 10 mg ??? ARIPiprazole (ABILIFY) tablet 1 mg Allergies: Allergies Allergen Reactions ??? Nkda [No Known Drug Allergies] ??? Seasonal Allergies Psychiatric Examination: BP 138/78 mmHg Pulse 83 Temp(Src) 98.4 ??F (36.9 ??C) (Temporal) Resp 16 Ht 1.651 m (5' 5) Wt 56.246 kg (124 lb) BMI 20.63 kg/m2 SpO2 98% LMP 12/09/2015 Weight is 124 lbs 0 oz Body mass index is 20.63 kg/(m^2). Appearance: awake, alert and adequately groomed Attitude: cooperative Eye Contact: good Mood: good Affect: appropriate and in normal range and mood congruent Speech: clear, coherent Psychomotor Behavior: no evidence of tardive dyskinesia, dystonia, or tics and intact station, gait and muscle tone Thought Process: goal oriented Associations: no loose associations Thought Content: no evidence of suicidal ideation or homicidal ideation, no avh. Insight: fair Judgment: fair Oriented to: time, person, and place Attention Span and Concentration: limited Recent and Remote Memory: intact Language: Able to name objects Fund of Knowledge: delayed Muscle Strength and Tone: normal Gait and Station: Normal Labs: No results found for this or any previous visit (from the past 24 hour(s)). Hilda Mann LPCC - 12/20/2015 12:19 PM CDT Digital Archivist spoke with patient's mother. Provided update on patient's status and disposition planning. Reviewed aftercare planning, follow-up appointments, additional resources and recommendations. Answeredquestions mother had. Discussed plan to continue monitoring over the weekend, with likely plan for di scharge early next week pending stabilization. Treatment team will contact mother on Wednesday to confirm and discuss discharge plan. Yareli Grant - 12/19/2015 9:41 PM CDT 12/19/152138 Behavioral Health Hallucinations denies / not responding to hallucinations Thinking distractable;intact Orientation person: oriented;place: oriented;date: oriented;time: oriented Memory baseline memory Insight poor Judgement impaired Eye Contact at examiner Affect full range affect Mood grandiose;mood is calm Physical Appearance/Attire attire appropriate to age and situation Hygiene neglected grooming - unclean body, hair, teeth;other (see comment) (hasnt been washing hair) Suicidality other (see comments) (none) Self Injury other (see comment) (denies) Activity restless;other (see comment) (attended groups) Speech coherent Psychomotor / Gait balanced Activities of Daily Living Hygiene/Grooming prompts Oral Hygiene independent Dress independent Room Organization independent Patient had a good shift. Patient did not require seclusion/restraints to manage behavior. Beth Morales did participate in groups and was visible in the milieu. Notable mental health symptoms during this shift:highly active Patient is working on these coping/social skills: Avoiding engaging in negative behavior of others Reaching out to family Visitors during this shift included none. Other information about this shift: pt had a good shift. Attended groups. Was a little hyper active during transition times. Was redirected pretty easily. Pt had good boundaries with other pts. Trista Singh - 12/19/2015 6:47 PM CDT Beth participated enthusiastically in group today. Did exhibit social awkwardness, when she appeared to feel she was being humorous. One peer left group due to frustration with interactions with Beth. (They were sharing an MP3 player). Gloria Salinas - 12/19/2015 3:09 PM CDT Patient had a calm, social shift. Patient did not require seclusion/restraints to manage behavior. Beth Morales did participate in groups and was visible in the milieu. Notable mental health symptoms during this shift:distractable Patient is working on these coping/social skills: Sharing feelings Positive social behaviors Asking for help Other information about this shift: Pt was polite and sociable with a calm, bright affect throughoutthe shift. She attended groups and participated appropriately. Pt socialized with peers and staff. Pt reported feeling happy, excited, and really hyper when asked how her day had been. Pt denied any urges to hurt herself or others. Luis Sanders MD - 12/19/2015 3:03 PM CDT [facility] Progress Note Impression: This is a 15-year-old female with developmental delay, borderline intellectual functioning, carryingdiagnosis of autism spectrum disorder who was brought in by family for worsening behavioral outbursts in the last several months, culminating in aggression to self and others, primarily in the home andstated suicidal ideation.?? Significant psychosocial stressors of recent divorce, father's terminal illness and recent moves and likely bullying.?? No obvious contributions of substances.?? The patient's unspecified chromosomal abnormality, developmental delays and cognition likely contributing to the patient's ability to tolerate distress, frustration tolerance and use positive coping skills.?? Diagnoses & Plan PRINCIPAL DIAGNOSIS:?? Autism spectrum disorder; Disruptive mood dysregulation disorder.?? Unit ITC.?? Attending Dr. Sanders. ? MEDICATIONS:?? continue Abilify 1 mg b.i.d. targeting irritability, agitation, aggression in ASD andmood. ? LABORATORY IMAGING:?? Routine metabolic labs reviewed.?? Consults:?? None.?? The patient will be treated in therapeutic milieu with appropriate and group therapies as described.?? Family assessment completed. ? SECONDARY DIAGNOSIS OF CONCERN THIS ADMISSION:?? Borderline intellectual functioning.?? Plan:?? Monitor for needs. ? MEDICAL DIAGNOSIS TO BE ADDRESSED THIS ADMISSION:?? None.?? Plan:?? Continue to evaluate.?? Routine metabolic labs. ? RELEVANT PSYCHOSOCIAL STRESSORS:?? Father's illness, recent move, recent divorce, possible bullying at school, social. ? LEGAL STATUS:?? Voluntary. ? SAFETY ASSESSMENT:?? Q.15 minute checks.?? Precautions:?? Suicide.?? The patient has not required locks, seclusion or restraints in the past 24 hours to maintain safety.?? Risks, benefits, alternativesand side effects have been discussed and understood by patient and caregivers. ? ANTICIPATED DISPOSITION:?? Discharge date 3-5 days to home.?? We will make referrals for outpatient followup.?? Target symptoms to stabilize behavioral outbursts, mood, SI. ? ATTESTATION:?? The patient has been seen and evaluated by me, Dr. Sanders. ? LUIS SANDERS MD? Interim History: The patient's care was discussed with the treatment team and chart notes were reviewed. Today during the interview with the treatment team calm cooperative no agitation aggression or impulsivity. On interview, calm cooperative smiling often. Feels meds are helping keep me calm. Denies si/sib or hi. Says sleeping good with no side effects of meds. The 10 point Review of Systems is negative other than noted in the HPI Medications: Current Facility-Administered Medications Medication ??? lidocaine (LMX4) 4% topical cream ??? OLANZapine zydis (zyPREXA) disintegrating tablet 5 mg Or ??? OLANZapine (zyPREXA) injection 5 mg ??? diphenhydrAMINE (BENADRYL) capsule 25 mg Or ??? diphenhydrAMINE (BENADRYL) injection 25 mg ??? hydrOXYzine (ATARAX) tablet 10 mg ??? ARIPiprazole (ABILIFY) tablet 1 mg Allergies: Allergies Allergen Reactions ??? Nkda [No Known Drug Allergies] ??? Seasonal Allergies Psychiatric Examination: BP 119/75 mmHg Pulse 89 Temp(Src) 97 ??F (36.1 ??C) (Oral) Resp 16 Ht 1.651 m (5' 5) Wt 56.246 kg (124 lb) BMI 20.63 kg/m2 SpO2 98% LMP 12/09/2015 Weight is 124 lbs 0 oz Body mass index is 20.63 kg/(m^2). Appearance: awake, alert and adequately groomed Attitude: cooperative Eye Contact: good Mood: good Affect: appropriate and in normal range and mood congruent Speech: clear, coherent Psychomotor Behavior: no evidence of tardive dyskinesia, dystonia, or tics and intact station, gait and muscle tone Thought Process: goal oriented Associations: no loose associations Thought Content: no evidence of suicidal ideation or homicidal ideation, no avh. Insight: limited Judgment: limited Oriented to: time, person, and place Attention Span and Concentration: limited Recent and Remote Memory: intact Language: Able to name objects Fund of Knowledge: delayed Muscle Strength and Tone: normal Gait and Station: Normal Labs: Recent Results (from the past 24 hour(s)) Comprehensive metabolic panel Collection Time: 12/19/15 7:47 AM Result Value Ref Range Sodium 139 133 - 143 mmol/L Potassium 3.8 3.4 - 5.3 mmol/L Chloride 108 96 - 110 mmol/L Carbon Dioxide 25 20 - 32 mmol/L Anion Gap 6 3 - 14 mmol/L Glucose 88 70 - 99 mg/dL Urea Nitrogen 11 7 - 19 mg/dL Creatinine 0.71 0.39 - 0.73 mg/dL GFR Estimate mL/min/1.7m2 GFR not calculated, patient <16 years old. Non GFR Calc GFR Estimate If Black mL/min/1.7m2 GFR not calculated, patient <16 years old. GFR Calc Calcium 8.8 (L) 9.1 - 10.3 mg/dL Bilirubin Total 0.6 0.2 - 1.3 mg/dL Albumin 3.9 3.4 - 5.0 g/dL Protein Total 7.2 6.8 - 8.8 g/dL Alkaline Phosphatase 181 105 - 420 U/L ALT 17 0 - 50 U/L AST 13 0 - 35 U/L CBC with platelets Collection Time: 12/19/15 7:47 AM Result Value Ref Range WBC 5.7 4.0 - 11.0 10e9/L RBC Count 4.26 3.7 - 5.3 10e12/L Hemoglobin 11.3 (L) 11.7 - 15.7 g/dL Hematocrit 35.0 35.0 - 47.0 % MCV 82 77 - 100 fl MCH 26.5 26.5 - 33.0 pg MCHC 32.3 31.5 - 36.5 g/dL RDW 14.0 10.0 - 15.0 % Platelet Count 275 150 - 450 10e9/L TSH with free T4 reflex Collection Time: 12/19/15 7:47 AM Result Value Ref Range TSH 1.18 0.40 - 4.00 mU/L Lipid profile Collection Time: 12/19/15 7:47 AM Result Value Ref Range Cholesterol 160 <170 mg/dL Triglycerides 66 <90 mg/dL HDL Cholesterol 58 >45 mg/dL LDL Cholesterol Calculated 89 <110 mg/dL Non HDL Cholesterol 102 <120 mg/dL Aleks Spears - 12/18/2015 10:22 PM CDT 12/18/15 1250 Behavioral Health Hallucinations denies / not responding to hallucinations Thinking distractable;poor concentration Orientation person: oriented;place: oriented Memory baseline memory Insight poor Judgement impaired Eye Contact at examiner Affect full range affect Mood mood is calm Physical Appearance/Attire attire appropriate to age and situation Hygiene well groomed Suicidality other (see comments) (denies) Self Injury thoughts only Activity other (see comment) (active in milieu) Speech clear;coherent Medication Sensitivity no stated side effects Psychomotor / Gait balanced;steady Activities of Daily Living Hygiene/Grooming independent Oral Hygiene independent Dress scrubs (behavioral health);independent Room Organization independent Significant Event Significant Event Other (see comments) (shift summary) Patient had a calm shift. Patient did not require seclusion/restraints to manage behavior. Beth Morales did participate in groups and was visible in the milieu. Notable mental health symptoms during this shift:distractable disorganized thinking Patient is working on these coping/social skills: Sharing feelings Distraction Positive social behaviors Visitors during this shift included family. Overall, the visit was positive. Significant events during the visit included talking in pt's room. Other information about this shift: pt had a calm shift. Pt has a made a friend with another pt thatis her age and they seem to get along. Sometimes had to be redirected for poor use of boundaries butother than that had a good shift. Trista Singh TH - 12/18/2015 6:49 PM CDT Beth listening to music with female peer in group today. Appeared to be enjoying herself and was silly at times. Patricia Greenfield - 12/18/2015 5:47 PM CDT 12/18/15 9932 Visit Information Visit Made By Staff [employer] Type of Visit Spirituality Group Spiritual Health Services Behavioral Health [employer] Hope and Healing Group Note Unit:[address] [place] [address] Name: Beth Moarles Date of : 2000 Age: [age] year old Patient attended Auto [employer] Builder-led group that focused on the topic of HOPE and HEALING through conversations and activities that supported pt's self worth, resiliency and hope as each travels through their healing journey. Pt attended for 1hr and participated. Beth talked with a lot of of energy. She needed redirection when she went off topic and started sharing personal information. Patricia Greenfield M.Div. Staff [employer] Pager [phone] Damaris Myles - 12/18/2015 3:07 PM CDT Patient had a calm shift. Patient did not require seclusion/restraints to manage behavior. Beth Morales did participate in groups and was visible in the milieu. Notable mental health symptoms during this shift:distractable Patient is working on these coping/social skills: Sharing feelings Distraction Visitors during this shift included mom. Overall, the visit was good. Significant events during the visit included nothing. Other information about this shift: Pt needs prompts to come out of room to attend groups and activites. Pt did attend groups when asked with no concerns. Pt said that she feels like biting herself buthas not today. Pt stated that after breakfast her stomach hurt her and that she didn't eat much morning snack or lunch. Pt was encouraged to drink liquids and try afternoon snack, she did have some saltine crackers and said that she started to feel better. Aleks Spears - 12/18/2015 2:38 AM CDT 12/18/15 0235 Patient Belongings Did you bring any home meds/supplements to the hospital? No Patient Belongings backpack;shoes;clothing Disposition of Belongings Pt. Room, Locker Belongings Search Yes Clothing Search Yes Second Staff Beth Nunez & Maxine Pt. Room: Black tank top Underwear x4 [place] Hooded Sweatshirt t-Shirts x4 (pink/red/black/teal) Locker: [place] Backpack Hairbrush Deodorant Sandals Linoleum Layer Helper shoes Sweatshirt (strings) 3 shorts (strings) t-Shirt CLOTHES on 12/18/15 8:06pm 3 bags of chips 4 powerades 4 tshirts (3 black, 1 pink) One pink and black shorts 3 pairs of pants (one black, one black and pink, and one taylor) One blanket (black, purple, blue, pink) One dog stuff animal ADMISSION: I am responsible for any personal items that are not sent to the safe or pharmacy. [facility] is not responsible for loss, theft or damage of any property in my possession. Patient Signature Date/Time Staff Signature Date/Time 2nd Staff person, if patient is unable/unwilling to sign Date/Time DISCHARGE: My personal items have been returned to me. Patient Signature Date/Time documented in this encounter H&P Notes Luis Sanders MD - 12/18/2015 1:38 PM CDT DATE OF ADMISSION: 12/17/2015 IDENTIFICATION: Beth Morales is a 15-year-old female with chromosomal abnormality presents for first psychiatric hospitalization for increased aggression and behavioral outbursts, suicidal ideation. CHIEF COMPLAINT: I have just been having more outbursts. History obtained from patient, chart, staff and patient's uncle. HISTORY OF PRESENT ILLNESS: The patient over the last several months has been more irritable, which results in aggression towards self, mother and brother in the home primarily. It is starting to happen at school, but this is more verbally. The patient tends to get upset at her brother, her mother alissa lash out and have outbursts, lasting up to several hours where she will throw rocks, knives, hit, punch, kick, bite both others and herself. There are periods of prolonged irritability between outbursts per mother and the patient. Uncle notes that when he has taken kid for a respite to his house he does not see these significant outbursts like she is almost on vacation. Significant family strife as the patient's father moved out in July and is in a long-term for his ALS and he is in the late stages of this. There was significant conflict per the patient between mother and father. In addition, they moved recently. New schools and now brother who is younger is starting to act out according to mother and uncle. The patientjust recently got a DD worker and is awaiting services in-home and essentially sees a therapist at [facility] once a week. The patient and mother deny prolonged periods of depression. The patient and mother note that patient can be anxious where she worries about multiple things like her father, school. The patient states that another stressor is recent in the last 2 weeks, there has been some bullying at school where 8th graders are picking on her. She is in 7th grade. PSYCHIATRIC REVIEW OF SYSTEMS: In addition to above the patient notes she will threaten suicide whenshe is upset but she says she never would really mean it. Mother is concerned as the patient has been saying this more. She does not note problems with sleeping. Denies depressed mood or significant anhedonia. Denies changes in appetite, although mother notes the patient is eating not good now in terms of her choices of food. Regarding DMDD there are recurrent outbursts and irritability between outbursts. No manic, hypomanic or psychotic symptoms or signs. The patient denies panic attacks or OCD butshe does state her worrying will affect her concentration, irritability. Denies significant PTSD or trauma. The patient can be hyperactive, distractive and impulsive. She has been diagnosed with oppositional defiant disorder and loses temper, argues, defiance, blames others, she will be aggressive to self and others. Regarding ASD she does have restricted interests, per mother hard times with transition. She is rigid. SOCIAL HISTORY: She prefers younger peers. The patient denies eating disorder symptoms or signs or personality traits. MEDICAL REVIEW OF SYSTEMS: I have done a 10-point medical review of symptoms negative except for theHPI. PSYCHIATRIC HISTORY: This is her first psychiatric hospitalization, recently started clonidine for impulsivity, agitation, but has been taking very inconsistently. Sees her PCP for medication management, therapist as above, recently got a DD worker. No suicide attempts or homicidal ideation or attempts although there is significant aggression and self-injurious behavior by biting, hitting self. ASD through the school and learning disorder. She had IQ testing which showed IQ around 75. SUBSTANCE USE HISTORY: The patient denies. PAST MEDICAL HISTORY: Unspecified chromosomal abnormality, no specific syndrome attached to it, no resultant medical sequelae that mom is able to identify at this time. PCP is Queta Fritz. PAST SURGICAL HISTORY: I have reviewed past surgical history. AND DEVELOPMENTAL HISTORY: Mother noted no significant abnormalities. Developmentally she was slow to walk, but otherwise seemed to meet developmental milestones on time. She is in school. She is on an IEP for autism. ALLERGIES: Seasonal allergies. MEDICATIONS PRIOR TO ADMISSION: Clonidine 0.1 mg b.i.d., adapalene apply topically at bedtime. SOCIAL HISTORY: The patient lives currently with mother and 12-year-old brother in [place]. Father is in a long-term for ALS, late stages. The patient is in 7th grade and feels she does well in school. The patient stated the last 2 weeks she has been having bullying starting. Denies abuse, neglector access to guns. FAMILY HISTORY: Anxiety in biological father. LABORATORY DATA ON ADMISSION: None. VITAL SIGNS: Blood pressure 141/86, pulse 90, temperature 97.1, respirations 16, BMI 21. PSYCHIATRIC EXAMINATION: This is a medium height, taller 15-year-old female, mildly diskempt, calm, cooperative with exam, smiling inappropriately at times and often. Eye contact is limited. Mood is listed as good. Affect is euthymic, bright, almost silly at times. Speech mildly dysarthric with specific words. Otherwise fluent, normal tone. Psychomotor behavior is restless. Thought process is concrete, simple. Associations: None. Thought content: Denies SI, HI, no SI, HI or psychotic symptoms or signs. Insight and judgment are limited. Alert and oriented x3. Attention span and concentration limited. Recent and remote memory intact. Language intact. Fund of knowledge is delayed. Muscle strength and tone intact. Gait and station tandem. PHYSICAL EXAMINATION: I reviewed the physical exam done by Dr. Cantu on 12/18/2015 and I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 [facility] Carbon Dioxide 25 20 - 32 [facility] mmol/L [facility] Anion Gap 6 3 - 14 [facility] mmol/L [facility] Glucose 88 70 - 99 [facility] mg/dL [facility] Urea Nitrogen 11 7 - 19 [facility] mg/dL [facility] Creatinine 0.71 0.39 - U OF M 0.73 [facility] mg/dL [facility] GFR Estimate GFR not calculated, patient <16 years old. mL/min/1. [facility] M Non GFR Calc 7m2 [facility] GFR Estimate If GFR not calculated, patient <16 years old. mL/min/1. [facility] Black [facility] 7[facility]2 [facility] Calcium 8.8 (L) 9.1 - U OF M 10.3 [facility] mg/dL [facility] Bilirubin Total 0.6 0.2 - 1.3 U OF M mg/dL [facility] Albumin 3.9 3.4 - 5.0 U OF M g/dL [facility] Protein Total 7.2 6.8 - 8.8 [facility] M g/dL [facility] Alkaline 181 105 - 420 [facility] M Phosphatase U/L [facility] ALT 17 0 - 50 [facility] M U/L [facility] AST 13 0 - 35 [facility] M U/L [facility] Specimen Anatomical Collection Method Collection Time Receive d Time (Source) Location / / Volume Laterality Blood specimen 12/19/2015 7:47 AM 016 7:49 (specimen) CDT AM CDT Luis Sanders MD LAB - BLOOD ORDERABLES Performing Organization Address City/State/ZIP Code Phon e Number [facility] U OF M [facility] documented in this encounter Visit Diagnoses Diagnosis Vitamin D deficiency - Primary Unspecified vitamin D deficiency Aggression with talk of suicide/homicide Explosive personality disorder Autism Autistic disorder, current or active sta te Suicidal ideation documented in this encounter Administered Medications Inactive Administered Medications - up to 3 most recent administrations Medication Order MAR Action Action Date Dose Rate Site acetaminophen (TYLENOL) tablet Given 12/20/2015 10:11 PM CDT 325 mg 325 mg 325 mg, Oral, EVERY 4 HOURS PRN, mild pain, fever, Starting on Wed12/20/15 at 2202, Maximum acetaminophen dose from all sources = 75 mg/kg/day not to exceed 4 grams/day. ARIPiprazole (ABILIFY) tablet 1 mg Given 12/23/2015 9:19 AM CDT 1 mg 1 mg, Oral, 2 TIMES DAILY, First dose on Wed12/18/15 at 2000 Given 12/22/2015 7:49 PM CDT 1 mg Given 12/22/2015 8:07 AM CDT 1 mg vitamin D (ERGOCALCIFEROL) capsule Given 12/20/2015 3:54 PM CDT 50,000 Units 50,000 Units 50,000 Units, Oral, EVERY 7 DAYS, First dose on Wed12/20/15 at 1445, Please obtain consent. documented in this encounter Active and Recently Administered Medications Times are shown in CDT. Scheduled Medication Order 12/21/2015 12/22/2015 12/23/2015 ARIPiprazole (ABILIFY) tablet 1 mg 0844 (Given - Provi shanna: Usha Cazares RN)4 (Given - Provider: Librado Weaver RN) 0807 (Given - Provider: Usha Cazares, RN)1949 (Given - Provider: Librado Weaver, RN) 0919 (Given - Provider: Usha Cazares, JAZMYNE) 1 mg, Oral, 2 TIMES DAILY, First dose on Wed12/18/15 at 2000 vitamin D (ERGOCALCIFEROL) capsule 50,000 Units 50,000 Units, Oral, EVERY 7 DAYS, First dose on Wed12/20/15 at 1445, Please obtain consent. documented in this encounter Care Teams Product Safety Head Relationship Specialty Start Date End Date Queta Fritz MD PCP - General Pediatrics 11/15/14 12/18/15 [address] [place] [address] [phone] Queta Fritz MD PCP - General Pediatrics 12/19/15 05/27/20 [address] [place] [address] Queta Fritz MD PCP - Assigned PCP 03/04/14 09/20/[address] [place] [address] Queta Fritz MD Assigned PCP 03/04/14 04/12/21 [address] [place] [address] documented as of this encounter
--- OUTSIDE RECORDS SUMMARY | 2022-04-23 23:49 | XMS_ITS | Encounter Summary ---
:2000 Author Organization [place] Address [address] [place] [address] Care Team Providers Name Role Phone Queta Fritz MD Primary Care Provider [phone] Queta Fritz MD Unavailable [phone] Queta Fritz MD Unavailable [phone] Encounter Details Date Type Department Care Team Description 07/31/2015 Office Visit [facility] Rochelle Ivey, Adjustm ent disorder Services [facility] with mixed [facility] COUNSELING disturbance of [address] emotions and conduct [place], [place] [address] (Primary Dx) [phone] [place] [address] (Wo rk) Social History Tobacco [...] do you attend synagogue or Never 2018 muslim services? 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 Progress Notes Rochelle Ivey, COPY AND PRINT ASSOCIATE - 08/02/2015 9:01 PM CST Progress Note Client Name: Mahi Faye Date: 07/31/2015 Service Type: Family with client present Session Start Time: 12:00 pm Session End Time: 1:00 pm Session Length: 60 minutes Session #: 17 Attendees: Client and Mother for the last ten minutes of the session Treatment Plan Last Reviewed: 04/29/2015 DATA Progress Since Last Session (Related to Symptoms / Goals / Homework): Symptoms: Symptoms and associated behaviors reported included aggression directed at mother, irritable, anger, difficulty redirecting, impulsive, low frustration tolerance and argumentative. Homework: Achieved / completed to satisfaction Episode of Care Goals: Minimal progress - PREPARATION (Decided to change - considering how); Intervened by negotiating a change plan and determining options / strategies for behavior change, identifying triggers, exploring social supports, and working towards setting a date to begin behavior change Current / Ongoing Stressors and Concerns: Met with client for a return visit. Client's mother was also present for today's visit. Current concerns reported included the followin. Family issues: Client's parents are in the process of a divorce. Client's father has MS. Father lives in a half-way. Conflict with younger brother and mother. 2. Academic issues: aggression exhibited at school, client receives special education resources, relationship issues with peers 3. 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 However, client continued to be aggressive towards her mother. Client reported that she gives into client often in order to keep the peace. Mother also concerned about client's personal hygiene. Client is not showering or brushing her teeth each day. Client promises to do it but does not follow through when the time comes. Intervention: Motivational Interviewing: Discussed the reports of client's aggression towards her mother. Discussed how client's behavior has affected her relationship with her mother. Revisited conversations aboutacceptable and unacceptable behavior. Also discussed the concerns about the client's personal hygiene. Discussed what things she and her family could do to effectively motivate client to improve her personal hygiene. Agreed to use and reward chart to encourage client to complete her goal each day. ASSESSMENT: Current Emotional / Mental [...] / Production: Normal Volume: Normal Mood: Angry Anxious Irritable Affect: Appropriate Thought Content: Clear Thought [...] and the outcome. 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
--- OUTSIDE RECORDS SUMMARY | 2022-04-23 23:49 | XMS_ITS | Encounter Summary ---
:2000 Author Organization [place] Address [address] [place] [address] Care Team Providers Name Role Phone Queta Fritz MD Primary Care Provider [phone] Queta Fritz MD Unavailable [phone] Queta Fritz MD Unavailable [phone] Reason for Visit Reason Onset Date Comments Prior Auth - Medication 10/24/2015 Clonidine Encounter Details Date Type Department Care Team Description 10/24/2015 Telephone [facility] Queta Fritz Prior Auth - Clinic Krystle De Jesus MD Medication (Clonidine) [address] [place], [place] [id number] [place], [place] [id number] (Wo rk) Social History Tobacco Use Types [...] do you attend advent or Never 2018 jainism services? 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 Left message for parent to call back. Telephone Encounter - Iris Hargrove RN - 10/31/2015 6:08 PM CDT Case has called them. They mostly deal with pts with straight MA. Also mostly see pt's with anxiety and depression. [facility] counselors did give them a referral to a psychiatrist, but Mom hasn't called yet. [facility] in [place]. Mom is willing to try the option you mentioned and see if she can get Mahi to take it. Requested Mom call to update in a week or two toupdate how it is going. Rx would need to be updated to include current administration instructions prior to any refills. Telephone Encounter - Queta Fritz MD - 10/31/2015 2:53 PM CDT Please call mother and see if she is aware of the refusal to cover the long acting medication. HOpefully Mahi has been or will be willing to take the regular Clonidine. THe dose is 1 at night and ifwilling I would give her 1/2 to 1 in the am. Please ask if psychiatry nurse has been in contact with the family. Telephone Encounter - Iris Hargrove RN - 10/25/2015 1:59 PM CDT Faxed letter received from [facility] stating that the PA for Clonidine HCL ER 0.1mg was denied based on the fact that pt's dx does not meet criteria. Pt must also have a history of 1 prior therapy of clonidine IR at three times daily dosing. Please advise. Letter attatched to original PA form in Peds triagebasket. Copy sent to abstraction. Telephone Encounter - Johnny Tobias RN - 10/24/2015 5:50 PM CDT Called mom and reached VM, left detail message about the Prior Authorization on Clonidine. We would call her once it has been approved or denied. Left our number to call if any questions. Johnny Melendez RN Telephone Encounter - Johnny Tobias RN - 10/24/2015 5:43 PM CDT I completed formed Pt has not been on any other medication. Printed note below for further information Faxed to [facility] RX Drug PA Review Agent Fax At [phone]. Phone number [phone]. Form is in the Peds well drill operator In-basket Johnny Melendez RN Copy sent to abstraction. Iris Nunez RN Telephone Encounter - Johnny Tobias RN - 10/24/2015 4:34 PM CDT Received a faxed Drug Prior Auth Form in relation to this pt's Clonidine HCL ER 0.1mg, take 1 tabletBID, Quantity 60, Refills 0. Pt was in clinic on 10/21/[address] Fritz for her complex mental health history. Per Office note by Dr. Fritz She presents to clinic today with mother because of escalating behavior issues that almost exclusively occur at home. About 15 months ago she started having more intense behaviors including a paresthesia of skin crawling and of suicidal and homicidal talk often in response to being teased by sibling.There was some of this at school for a while but not this school year. Her father has ALS and his health deteriorated to the point of being placed in a long-term recently. He and mother are .Mahi and her younger brother are both struggling with behavior more since dad out of the home. Brother can't [...] 1 year ago and this is helping tara roselia. She is seen every 2 weeks or so. Plan Begin Clonidine 0.1 mg QHS. I made the mistake of pointing out that she may be sleepy in the am. This triggered a stream of verbal concern about the consequences of being late to school. On the Oct I spoke with ped psychiatry from [facility] who recommended the clonidine ER BID and forthe mother to consider an outpatient (PARTIAL HOSPITALIZATION) program in [place].A SW will contact the family. documented in this encounter Plan of Treatment Not on filedocumented as of this encounter Visit Diagnoses Not on filedocumented in this encounter Care Teams Director Teen Post Relationship Specialty Start Date End Date Queta Fritz MD PCP - General Pediatrics 11/15/14 12/18/15 [address] [place] [address] Queta Fritz MD PCP - Assigned PCP 03/04/14 09/20/18 [address] [place] [address] Queta Fritz MD Assigned PCP 03/04/14 04/12/21 [address] [address] documented as of this encounter
--- OUTSIDE RECORDS SUMMARY | 2022-04-23 23:50 | XMS_ITS | Encounter Summary ---
:2000 Author Organization [place] Address [address] [place] [address] Care Team Providers Name Role Phone Queta Fritz MD Primary Care Provider [phone] Queta Fritz MD Unavailable [phone] Queta Fritz MD Unavailable [phone] Encounter Details Date Type Department Care Team Description 03/11/2015 Office Visit [facility] Rochelle Ivey, Adjustm ent disorder Services [facility] with mixed [facility] COUNSELING disturbance of [address] emotions and conduct [place], [place] [address] (Primary Dx) [phone] [place] [address] (Wo rk) Social History Tobacco [...] do you attend buddhism or Never 2018 caodaism services? 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 It is reported that client has been less reactive, fewer episodes of aggressive behaviors. Less argumentative as well. Mood reported as upbeat. Homework: Achieved / completed to satisfaction Episode of Care Goals: Satisfactory progress - ACTION (Actively working towards change); Intervenedby reinforcing change plan / affirming steps taken Current / Ongoing Stressors and Concerns: Met with client for a return visit. Client's mother was present for day's session. Checked in abouthow client did on her trip to [place]. Overall, client reportedly did well on the trip. However, client had a hard time on the way back. Client reportedly has a meltdown at the airport as she waited for the plane. Mother reported that client had been up and traveling since the coupon clerk and the flight to [place] had been delayed. Client attributed client's behaviors to client being tired and there being a change to the expected routine. Client will be starting school the day after Labor Day. Client's mother expressed some concern abouttransportation issues. Mother reported that client will have to ride the bus from school but the client refuses to ride the bus. Client's younger brother will be going to a different school and will ride his bike. Client wants to have the opportunitity of riding her bike but mother is concern about client's level of responsibility, especially with having to cross a [facility] [address] on her way home. Client's mother has talked with client about the plan to get her to and from school but client is not in agreement. Discussed with the client the need for the client to demonstrate more responsibility so t hat her mother feels more confident and trusting of the client. Client was encouraged to take the bus home but client did not want to consider that option because of her experience with the bus the previous school year. Livestock Broker suggested that the client to do a dry run of the route home from school to see if client would be able to handle a mile bike ride including crossing a busy [facility] [address]. Discussthe outcome of the dry run at client's next visit (march 19) to hear if client has changed her mind. Treatment Objective(s) Addressed in This Session: identify patterns of escalation (i.e. tightness in chest, flushed face, increased heart rate, clenched hands, etc.) identify at least six techniques for intervening on the escalation Intervention: Was not able to work with client on addressing her therapy goals because of the discussion about riding the school bus took most of the time. Was able to check in with client towards the end of the session about how she has been managing her anger at home. Client has been doing a better job of ignoring negative attention. She has also been using her distraction and calming tools like squeezing her swishy ball, taking deep breaths, talking to someone she trust, doing something nice for self. Client commended for her use of her coping strategies. Client encouraged to continue using her coping strategies. Client also informed that next session would focus on working on improving her ability to deal with her frustration appropriately. ASSESSMENT: Current Emotional / Mental Status (status [...] these risk factors. Appearance: Appropriate Eye Contact: Fair Psychomotor Behavior: Restless Attitude: Cooperative at first but client became defensive and argumentative when discussing the bus riding situation. Orientation: All Speech Rate / Production: Normal Volume: Loud Mood: Normal Affect: Appropriate Bright but became tearful when discussing having to ride the bus. Thought Content: Rumination Thought Form: Circumstantial Insight: Poor Medication Review: No current psychiatric medications prescribed Medication Compliance: NA Changes in Health Issues: None reported Chemical Use Review: Substance Use: Chemical use reviewed, no active concerns identified Tobacco Use: No current tobacco use. Collateral Reports Completed: Not Applicable PLAN: (Client Tasks / Therapist Tasks / Other) - Client will complete a dry run on a bike of the route back home from school to determine if she wants to ride a bike or take the bus home. - Client will continue to use her calming and coping strategies to manage her reaction to provocations. 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
--- OUTSIDE RECORDS SUMMARY | 2022-04-23 23:50 | XMS_ITS | Encounter Summary ---
:2002 Author Organization [facility] Address [address] [place] [address] Care Team Providers Name Role Phone Queta Fritz MD Primary Care Provider [phone] Queta Fritz MD Unavailable [phone] Queta Fritz MD Unavailable [phone] Encounter Details Date Type Department Care Team Description 04/03/2015 Office Visit [facility] Rochelle Ivey, Adjustm ent disorder Services [facility] with mixed [facility] COUNSELING disturbance of [address] emotions and conduct [place], [place] [address] (Primary Dx) [phone] [place] [address] (Wo rk) Social History Tobacco [...] do you attend temple or Never 2018 oriental orthodox services? 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 encounter Progress Notes Rochelle Ivey, ELECTRIC METER REPAIRER APPRENTICE - 04/17/2015 7:42 AM CDT Progress Note Client Name: Mahi Faye Date: 04/03/2015 Service Type: Individual Session Start Time: 4:00 pm Session End Time: 4:56 pm Session Length: 56 minutes Session #: 9 Attendees: Client attended alone Treatment Plan Last Reviewed: Not due until 03/22/2015 PHQ-9 / JANETH-7 : Not completed because of client's age DATA Progress Since Last Session (Related to Symptoms / Goals / Homework): Symptoms: Anger and property destruction Homework: Partially completed Episode of Care Goals: Minimal progress - ACTION (Actively working towards change); Intervened by reinforcing change plan / affirming steps taken Current / Ongoing Stressors and Concerns: Met with client for a return visit. Client reported that she recently celebrated her birthday. She spent some time discussing what she did for her birthday. Client also reported that she had an angry outburst over the weekend. Client explained that she was told by her mother that she could have a friend spend the night but her father said no. Client reportedly got upset, went into her room and destroyed personal items and furniture. Incident reportedly lasted for about a half an hour before client calmed down. Treatment Objective(s) Addressed in This Session: identify patterns of escalation (i.e. tightness in chest, flushed face, increased heart rate, clenched hands, etc.) identify at least six techniques for intervening on the escalation Incident over the weekend in which client got upset and trashed her room by destroying her personal items and furniture. Intervention: Talked with client about the incident over the weekend. Discussed what triggered the client and what she chose to do to express her anger. Discussed the pros and cons of client's choice of expressing her anger. Also identified other options client may have had to express her anger. Also explored strategies (square breathing, counting to 20, telling self to chill out, or using a punching bag) for client to use to better manager corporate responsibility her anger. ASSESSMENT: Current Emotional / Mental Status (status [...] Contact: Fair Psychomotor Behavior: Restless Attitude: Cooperative Orientation: All Speech Rate / Production: Normal Volume: Loud Mood: Irritable Affect: Appropriate Thought Content: Clear Thought Form: Coherent Logical Insight: Fair Medication Review: No current psychiatric medications prescribed Medication Compliance: NA Changes in Health Issues: None reported Chemical Use Review: Substance Use: Chemical use reviewed, no active concerns identified Tobacco Use: No current tobacco use. Collateral Reports Completed: Not Applicable PLAN: (Client Tasks / Therapist Tasks / Other) - Client will continue to use her calming and coping strategies to manage her reaction to provocations. - Continue to work with client on increasing her knowledge and understanding of the anger cycle. 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
--- OUTSIDE RECORDS SUMMARY | 2022-04-23 23:50 | XMS_ITS | Encounter Summary ---
:2002 Author Organization [facility] Address [facility] [place] [address] Care Team Providers Name Role Phone Queta Fritz MD Primary Care Provider [phone] Queta Fritz MD Unavailable [phone] Queta Fritz MD Unavailable [phone] Reason for Visit [facility] (Routine) - Closed Specialty Diagnoses / Procedures Referred By Contact Refer red To Contact Queta Fritz [facility] - [address] [place] [address] [address] [place] [address] Phone: Fax: Referral ID Status Reason Start Date Expiration Date Visits V isits Requested Authorized [id number] Closed 12/19/2014 02/16/2015 6 6 Encounter Details Date Type Department Care Team Description 01/02/2015 Therapy Visit [facility] Diane Mccormack Cervi calgia (Primary Dx); Rehabilitation Services PT Ji Covarrubias [address] [address] Radha Villalobos [address] [place] [address] [place], [place] [phone] Social History Tobacco Use Types Packs/Day Years [...] do you attend jain or Never 2018 hinduism services? 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 Diane Mccormack PT - 01/02/2015 5:36 PM CDT Subjective: HPI Objective: System Physical Exam General ROS Assessment/Plan: PROGRESS REPORT Progress reporting period is from 12/19/2014 to 01/02/2015. SUBJECTIVE Subjective changes noted by patient: Pt reports that she tried the exercises, but her back pain increased a lot afterwards and she had a hard time sleeping. Changes in function: None Adverse reaction to treatment or activity: activity - prolonged walking, sitting, and sleeping. OBJECTIVE Changes noted in objective findings: None Objective: Able to sit tall when prompted, however she has pain with that. Does not tolerate any exercise very well except she felt that bicep curls would be helpful since she saw that online as an exercise. ASSESSMENT/PLAN Updated problem list and treatment plan: Diagnosis 1: Lumbar/thoracic pain Pain - hot/cold therapy Decreased strength - therapeutic exercise, therapeutic activities and home program Impaired muscle performance - neuro re-education and home program Decreased function - therapeutic activities and home program STG/LTGs have been met or progress has been made towards goals: None Assessment of Progress: Pt is not progressing with exercises due to pain. Self Management Plans: Patient has been instructed in self management of symptoms. I have re-evaluated this patient and find that the nature, scope, duration and intensity of the therapy is appropriate for the medical condition of the patient. Mahi continues to require the following intervention to meet STG and LTG's: I would recommend pool therapy for this patient. Recommendations: Recommend pool therapy for this patient since she likes the pool and reports not having any pain when she is in a pool. Please refer to the daily flowsheet for treatment today, total treatment time and time spent performing 1:1 timed codes. documented in this encounter Plan of Treatment Not on filedocumented as of this encounter Procedures Procedure Name Priority Date/Time Associated Diagnosis Comme nts [facility] THERAPEUTIC Routine 01/02/2015 5:40 PM Cervicalgia ACTIVITIES CDT Lumbago [facility] NEUROMUSCULAR Routine 01/02/2015 5:40 PM Cervicalgia RE-EDUCATION CDT Lumbago documented in this encounter Visit Diagnoses Diagnosis Cervicalgia - Primary Lumbago documented in this encounter Care Teams Utilities Equipment Repairer Relationship Specialty Start Date End Date Queta Fritz MD PCP - General Pediatrics 11/15/14 12/18/[address] [id number] Queta Fritz MD PCP - Assigned PCP 03/04/14 09/20/[address] [id number] Queta Fritz MD Assigned PCP 03/04/14 04/12/[address] [address] documented as of this encounter
--- OUTSIDE RECORDS SUMMARY | 2022-04-23 23:50 | XMS_ITS | Encounter Summary ---
:2002 Author Organization [facility] Address [address] [place] [address] Care Team Providers Name Role Phone Queta Fritz MD Primary Care Provider [phone] Queta Fritz MD Primary Care Provider [phone] Joseline Connors SHIPYARD PAINTING SUPERVISOR Unavailable Queta Fritz MD Unavailable [phone] Queta Fritz MD Unavailable [phone] Tc Jama MD Unavailable Tc Jama MD Unavailable Khalida Beyer MD Primary Care Provider Rosario Noe APRN CNM Unavailable [phone] Eda Duarte MD Unavailable Mike Sherwood MD Unavailable [phone] Navid Paige MD Unavailable Norma Ruggiero APRN GAS MAKER HELPER Unavailable [phone] Queta Fritz MD Unavailable [phone] Norma Ruggiero APRN GAS MAKER HELPER Unavailable [phone] Ref-Primary, Physician Primary Care Provider [phone] Alber Estrada PA-C Unavailable [phone] Encounter Details Date Type Department Care Team Description 06/18/2015 [facility] Rochelle Ivey, Documentation Services [facility] [address] [place], [place] [address] [address] [place] [address] [phone] (Wo rk) Social History Tobacco Use Types [...] do you attend quaker or Never 2018 taoist services? 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 documented as of this encounter Plan of Treatment Not on filedocumented as of this encounter Visit Diagnoses Not on filedocumented in this encounter Additional Health Concerns Infection Onset Date Last Indicated Resolved Time Rule Out COVID-19 06/07/2020 06/07/2020 06/08/2020 7:3 4 PM BUSINESS TEAM LEADER Rule Out COVID-19 08/23/2021 08/23/2021 08/23/2021 9:1 7 PM BUSINESS TEAM LEADER Rule Out COVID-19 04/21/2022 04/21/2022 04/21/2022 8:5 7 PM CDT documented as of this encounter Care Teams Straddle Carrier Operator Relationship Specialty Start Date End Date Queta Fritz PCP - General Pediatrics 11/15/14 12/18/15 MD Liza [address] [place] [phone] Queta Fritz PCP - General Pediatrics 12/19/15 05/27/20 MD Kita De Jesus [address] [place] [address] [phone] Queta Fritz PCP - Assigned PCP 03/04/14 MD Liza [address] [address] Khalida Beyer MD PCP - General Psychiatry 05/28/20 08/22/21 No Ref-Primary, PCP - General 08/23/21 Physician Joseline Connors, MARGUERITE [employer] Games Dual Rate Supervisor 11/05/16 11/23/16 Queta Fritz Assigned PCP 03/04/14 04/12/21 MD Liza [address] [phone] Tc Jama MD Pediatric Surgery 02/14/[address] [place] [address] Tc Jama, Assigned Pediatric 05/10/20 MD Specialist Provider [address] [place] [address] Rosario Noe, Assigned OBGYN Provider 07/21/20 01/16/22 FELT HANGER CNM [address] [place] [address] Eda Duarte Assigned Surgical Provider 10/02/20 MD Alex [address] [facility] [address] [place] [address] Mike Sherwood Assigned Sleep Provider 01/31/21 MD Navid [address] [place] [address] Navid Paige MD Assigned Musculoskeletal 03/16/21 [address] [place], [place] [phone] Norma Ruggiero, Assigned PCP 04/13/21 05/24/21 FELT HANGER GAS MAKER HELPER [address] [place], [place] [address] Queta Fritz Assigned PCP 05/25/21 07/26/21 MD Liza [address] [facility] [address] [place], [place] [phone] Norma Ruggiero, Assigned PCP 07/27/21 09/06/21 FELT HANGER GAS MAKER HELPER [address] [place], [place] 838[address] Alber Estrada Assigned PCP 09/07/21 KARIN Lagunas [address] [address] [facility] [place] [phone] documented as of this encounter
--- OUTSIDE RECORDS SUMMARY | 2022-04-23 23:50 | XMS_ITS | Encounter Summary ---
:2000 Author Organization [place] Address [address] [place] [address] Care Team Providers Name Role Phone Queta Fritz MD Primary Care Provider [phone] Queta Fritz MD Unavailable [phone] Queta Fritz MD Unavailable [phone] Reason for Visit Reason Comments Well Child 14 years old Encounter Details Date Type Department Care Team Description 03/11/2015 Office Visit [facility] Queta Fritz or child health check (Primary Dx); Clinic Krystle De Jesus MD Acne vulgaris; [address] Anxiety; [place] [address] [place] [phone] (Wo rk) Social History Tobacco Use Types [...] do you attend baptism or Never 2018 moravian services? 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 documented as of this encounter Last Filed Vital Signs Vital Sign Reading Time Taken Comments Blood Pressure 110/60 03/11/2015 7:07 PM CDT Pulse 88 03/11/2015 7:07 PM CDT Temperature 36.5 ??C (97.7 ??F) 03/11/2015 7:07 PM CDT Respiratory Rate 20 03/11/2015 7:07 PM CDT Oxygen Saturation 100% 03/11/2015 7:07 PM CDT Inhaled Oxygen Concentration - - Weight 49.9 kg (110 lb) 03/11/2015 7:07 PM CDT Height 165.1 cm (5' 5) 03/11/2015 7:07 PM CDT Body Mass Index 18.3 03/11/2015 7:07 PM CDT Body Mass Index Percentile 44.33 % 03/11/2015 7:07 PM CD T Growth Chart: CDC (Girls, 2-20 Years) documented in this encounter Patient Instructions Patient InstructionsYolie De La Torre MA - 03/11/2015 7:02 PM CDT Acetaminophen (Tylenol) Doses: For a child who weighs over 96 pounds, the dose would be (640mg): 20mL of the Children's Acetaminophen (160mg/5mL) every 4 hours as needed OR 2 tablets of the Regular Strength Tylenol (325mg each) every 4 hours as needed Ibuprofen (Motrin, Advil) Doses: For a child who weighs Over 96 pounds, the dose would be (400mg): 20mL of the Children's Ibuprofen (100mg/5mL) every 6 hours as needed OR 4 tablets of the Children's Ibuprofen (100mg per tablet) every 6 hours as needed OR 2 caplets or tablets of Adult Ibuprofen (200mg per tablet) every 6 hours as needed Preventive Care at the 12 - 14 Year Visit Growth Percentiles & Measurements Weight: 110 lbs 0 oz / 49.9 kg / 67%ile based on CDC 2-20 Years coiene-nna-mct data using vitals from 03/11/2015. Length: 5' 5 / 165.1 cm 88%ile based on CDC 2-20 Years fwyfkxm-oux-ods data using vitals from 03/11/2015. BMI: Body mass index is 18.31 kg/(m^2). 44%ile based on [facility] 2-20 Years BMI-for-age data using [employer] 03/11/2015. Blood Pressure: Blood pressure percentiles are 50% systolic and 32% diastolic based on 2000 NHANES data. For the acne: OTC treatments are real. Salicylic Acid and Benzoyl Peroxide have various strengths and are seen in washes and creams. Use acne wash twice a day (not moisturizing soap for sure). When in the shower use this after you have rinsed your hair of any soap/conditioner. Apply acne cream with the other OTC active ingredient in the am to thoroughly dried skin. Apply everywhere that you get acne not just where it is today. This is preventative. Use the lower strength of the cream first. If not having side effects from this ( redness dryness) then increase the strength. Apply the Adapalene the same way in the evening. Also avoid oil containing moisturizers and sunscreens on the areas with acne. Discussed importance of calcium, vit D supplementation, and exercise in growth and maintenance of healthy bones and teeth. I recommend Mahi take 1-2 Calcium with vit D 500/400 twice a day. Humans need four servings of calcium containing food or supplement a day (300- 500 mg per serving). Up to three of these can be milk/ milk products. A calcium supplement can also be taken up to three servings a day. Leafy greens and broccoli are good sources of calcium. Vit D is found in small amount in milk products and is present in significant amounts along with calcium in small fishes eaten whole like sardines. Most people who live in [facility] need Vit D supplement. Vit D can be supplemented on a daily or weekly basis. Total supplement 400-1000 IU a day. In order to develop the habit, place the supplement at the dinner table and next to the tooth brush and encourage regular use. If Vit D is given on a weekly basis I encourage the entire family to partake and to use a regularly scheduled event such as baptism or pizza night as a trigger to take the supplement. Next Visit ??? Continue to see your [...] never get in a car if the funeral driver has beendrinking or using drugs. ??? [...] encounter Progress Notes Queta Fritz MD - 03/11/2015 7:02 PM CDT SUBJECTIVE: Mahi Faye is a 14 year old female, here for a routine health maintenance visit, accompanied by her mother. Patient was roomed by: ORLANDO Roblero QUESTIONS/CONCERNS: would like to discuss acne HOME Family members in house: mother, father and brother Language(s) spoken at home: Barbadian Recent family changes/social stressors: none noted HEALTH / RISKS TB exposure: No Cardiac risk assessment: none Do you monitor your child's screen use? Yes VISION: Testing not done--no concerns patient just had eye exam with a doctor 03/08/2015 HEARING: Testing not done: No concerns DENTAL Dental health HIGH risk factors: none Water source: city water No sports physical needed. SAFETY Car seat belt always worn: Yes Helmet worn for bicycle/roller blades/skateboard? Yes Guns/firearms in the home: No ELECTRONIC MEDIA TV in bedroom: No < 2 hours/ day EDUCATION School: Middle School Grade: 7 School performance / Academic skills: learning disability in special ed Days of school missed: 5 or fewer Concerns: yes-struggles with the fact that she is different ACTIVITIES Do you get at least 60 minutes per day of physical activity, including time in and out of school: Yes Extra-curricular activities: Organized / team sports: DIET Do you get at least 4 helpings of a fruit or vegetable every day: Yes Do you eat breakfast every day: Yes How many servings of juice, non-diet soda, punch or sports drinks per day: rare Does your family eat out (take out, delivery, fast food, restaurant) more than one day per week: No SLEEP No concerns, sleeps well through night most nights in the summer. School year has some trouble due to anxiety Allergies Allergen Reactions ??? Nkda [No Known Drug Allergies] Immunization History Administered Date(s) Administered ??? Comvax (HIB/HepB) 2002, 2002, 03/26/2003 ? ? DTAP (<7y) 2002, 2002, 2002, 09/24/2003, 03/29/2007 ??? Hepatitis A 03/30/2006, 09/27/2006 ??? Human Papilloma Virus 03/11/2015 ??? IPV 2002, 2002, 2002, 03/29/2007 ??? Influenza (H1N1) 07/03/2009 ??? Influenza (IIV3) 05/22/2008, 06/10/2009, 04/11/2010, 05/04/2011 ??? Influenza Intranasal Vaccine 05/03/2012 ??? Influenza Intranasal Vaccine 4 valent 05/05/2013, 05/10/2014 ??? MMR 03/26/2003, 03/29/2007 ??? Meningococcal (Menactra) 01/18/2014 ??? Pneumococcal (PCV 13) 06/02/2011 ??? Pneumococcal (PCV 7) 2002, 2002, 2002 ??? TDAP (ADACEL AGES 11-64) 01/18/2014 ??? Varicella 03/26/2003, 03/29/2007 Patient Active Problem List Diagnosis ??? Chromosomal Abnormality ??? Learning Disability ??? Loss of weight ??? Tonsillar abscess, S/P drainage ??? Anxiety ??? Insomnia ??? Disturbance of skin sensation/ crawling skin ??? Aggression with talk of suicide/homicide HEALTH HISTORY SINCE LAST VISIT No surgery, major illness or injury since last physical exam DRUGS Smoking: no Passive smoke exposure: no Alcohol: no Drugs: no SEXUALITY Sexual attraction: opposite sex Sexual activity: No PSYCHO-SOCIAL/DEPRESSION General screening: No screening tool used Has Anxiety and developmental delay. She is in counselling and this is going very well Patient Active Problem List Diagnosis ??? Chromosomal Abnormality ??? Learning Disability ??? Loss of weight ??? Tonsillar abscess, S/P drainage ??? Anxiety ??? Insomnia ??? Disturbance of skin sensation/ crawling skin ??? Aggression with talk of suicide/homicide Allergies Allergen Reactions ??? Nkda [No Known Drug Allergies] Immunization History Administered Date(s) Administered ??? Comvax (HIB/HepB) 2002, 2002, 03/26/2003 ? ? DTAP (<7y) 2002, 2002, 2002, 09/24/2003, 03/29/2007 ??? Hepatitis A 03/30/2006, 09/27/2006 ??? Human Papilloma Virus 03/11/2015 ??? IPV 2002, 2002, 2002, 03/29/2007 ??? Influenza (H1N1) 07/03/2009 ??? Influenza (IIV3) 05/22/2008, 06/10/2009, 04/11/2010, 05/04/2011 ??? Influenza Intranasal Vaccine 05/03/2012 ??? Influenza Intranasal Vaccine 4 valent 05/05/2013, 05/10/2014 ??? MMR 03/26/2003, 03/29/2007 ??? Meningococcal (Menactra) 01/18/2014 ??? Pneumococcal (PCV 13) 06/02/2011 ??? Pneumococcal (PCV 7) 2002, 2002, 2002 ??? TDAP (ADACEL AGES 11-64) 01/18/2014 ??? Varicella 03/26/2003, 03/29/2007 ROS GENERAL: See health history, nutrition and daily activities SKIN: except for acne No rash, hives or significant lesions HEENT: Hearing/vision: see above. No eye, nasal, ear symptoms. RESP: No cough or other concerns CV: No concerns GI: See nutrition and elimination. No concerns. : See elimination. No concerns NEURO: No headaches or concerns. OBJECTIVE: EXAM BP 110/60 mmHg Pulse 88 Temp(Src) 97.7 ??F (36.5 ??C) (Oral) Resp 20 Ht 5' 5 (1.651 m) Wt110 lb (49.896 kg) BMI 18.31 kg/m2 SpO2 100% 88%ile based on CDC 2-20 Years cnegvma-reu-rvo data using vitals from 03/11/2015. 67%ile based on CDC 2-20 Years doxcwr-ddl-zyo data using vitals from 03/11/2015. 44%ile based on CDC 2-20 Years BMI-for-age data using vitals from 03/11/2015. Blood pressure percentiles are 50% systolic and 32% diastolic based on 2000 NHANES data. GENERAL: Active, alert, in no acute distress. SKIN: acne with pustules and open and closed comedones on the face radha the forehead and to a lesser extent on the back HEAD: Normocephalic EYES: Sharp optic discs. Pupils equal, round, reactive, Extraocular muscles intact. [...] -F: Normal female external genitalia, Amadeo stage III. BREASTS: Amadeo stage III. No abnormalities. ASSESSMENT/PLAN: Encounter Diagnoses Name Primary? Routine infant or child health check Yes ??? Acne vulgaris ??? Anxiety ??? Learning disability Anticipatory Guidance Reviewed Anticipatory Guidance in patient instructions Preventive Care Plan Immunizations ?? I provided face to face vaccine counseling, answered questions, and explained the benefits and risks of the vaccine components ordered today including: HPV - Human Papilloma Virus. Referrals/Ongoing Specialty care: Ongoing Specialty care by clinical social work program coordinator See other orders in [facility]. Dental visit recommended: Yes Cleared for sports: Not addressed BMI at 44%ile based on CDC 2-20 Years BMI-for-age data using vitals from 03/11/2015. No weight concerns. FOLLOW-UP: in 1 year for a Preventive Care visit For the acne: OTC treatments are real. Salicylic Acid and Benzoyl Peroxide have various strengths and are seen in washes and creams. Use acne wash twice a day (not moisturizing soap for sure). When in the shower use this after you have rinsed your hair of any soap/conditioner. Apply acne cream with the other OTC active ingredient in the am to thoroughly dried skin. Apply everywhere that you get acne not just where it is today. This is preventative. Use the lower strength of the cream first. If not having side effects from this ( redness dryness) then increase the strength. Apply the Adapalene the same way in the evening. Also avoid oil containing moisturizers and sunscreens on the areas with acne. Discussed importance of calcium, vit D supplementation, and exercise in growth and maintenance of healthy bones and teeth. I recommend Mahi take 1-2 Calcium with vit D 500/400 twice a day. Humans need four servings of calcium containing food or supplement a day (300- 500 mg per serving). Up to three of these can be milk/ milk products. A calcium supplement can also be taken up to three servings a day. Leafy greens and broccoli are good sources of calcium. Vit D is found in small amount in milk products and is present in significant amounts along with calcium in small fishes eaten whole like sardines. Most people who live in [facility] need Vit D supplement. Vit D can be supplemented on a daily or weekly basis. Total supplement 400-1000 IU a day. In order to develop the habit, place the supplement at the dinner table and next to the tooth brush and encourage regular use. If Vit D is given on a weekly basis I encourage the entire family to partake and to use a regularly scheduled event such as baptism or pizza night as a trigger to take the supplement. I spent an extra 15 min on noted acute/chronic problems for which at least half of this was spent indirect counselling of the patient. Queta Fritz MD, MD [facility] documented in this encounter Nursing Notes Yolie De La Torre MA - 03/11/2015 7:11 PM CDT Chief Complaint Patient presents with ??? Well Child 14 years old Initial BP 110/60 mmHg Pulse 88 Temp(Src) 97.7 ??F (36.5 ??C) (Oral) Resp 20 Ht 5' 5 (1.651m) Wt 110 lb (49.896 kg) BMI 18.31 kg/m2 SpO2 100% Estimated body mass index is 18.31 kg/(m^2)as calculated from the following: Height as of this encounter: 5' 5 (1.651 m). Weight as of this encounter: 110 lb (49.896 kg). BP completed using cuff size: small regular ORLANDO Roblero documented in this encounter Plan of Treatment Not on filedocumented as of this encounter Visit Diagnoses Diagnosis Routine infant or child health check - P rimary Acne vulgaris Other acne Anxiety Anxiety state, unspecified Learning disability Other specific developmental learning di fficulties documented in this encounter Care Teams Nurse Reviewer Relationship Specialty Start Date End Date Queta Fritz MD PCP - General Pediatrics 11/15/14 12/18/15 [address] [place] [address] [phone] Queta Fritz MD PCP - Assigned PCP 03/04/14 09/20/18 [address] [place] [address] [phone] Queta Fritz MD Assigned PCP 03/04/14 04/12/21 [address] [place] [address] [phone] documented as of this encounter
--- OUTSIDE RECORDS SUMMARY | 2022-04-23 23:50 | XMS_ITS | Encounter Summary ---
:2002 Author Organization [facility] Address [facility] [place] [address] Care Team Providers Name Role Phone Queta Fritz MD Primary Care Provider [phone] Queta Fritz MD Unavailable [phone] Queta Fritz MD Unavailable [phone] Reason for Visit [facility] (Routine) - Closed Specialty Diagnoses / Procedures Referred By Contact Refer red To Contact Queta Fritz [facility] - [address] [place] [address] [address] [phone] Phone: Fax: Referral ID Status Reason Start Date Expiration Date Visits V isits Requested Authorized [id number] Closed 12/19/2014 02/16/2015 6 6 Encounter Details Date Type Department Care Team Description 12/28/2014 Therapy Visit [facility] Hermelinda Urbano, RAQUEL Cervicalgia (Primary Dx); Rehabilitation Services [facility] Lumbago [place] [address] [place] [address] [place] [address] Social History Tobacco Use Types Packs/Day [...] do you attend confucianism or Never 2018 zoroastrianism services? 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 documented as of this encounter Plan of Treatment Not on filedocumented as of this encounter Procedures Procedure Name Priority Date/Time Associated Diagnosis Comme nts ZC NEUROMUSCULAR Routine 12/28/2014 5:41 PM Cervicalgia RE-EDUCATION CDT Lumbago Z THERAPEUTIC EXERCISES Routine 12/28/2014 5:41 PM Cer vicalgia CDT Lumbago documented in this encounter Visit Diagnoses Diagnosis Cervicalgia - Primary Lumbago documented in this encounter Care Teams Market Researcher Relationship Specialty Start Date End Date Queta Fritz MD PCP - General Pediatrics 11/15/14 12/18/15 [address] [place] [address] [phone] Queta Fritz MD PCP - Assigned PCP 03/04/14 09/20/18 [address] [place] [address] [phone] Queta Fritz MD Assigned PCP 03/04/14 04/12/21 [address] [place] [address] [phone] documented as of this encounter
--- OUTSIDE RECORDS SUMMARY | 2022-04-23 23:50 | XMS_ITS | Encounter Summary ---
:2000 Author Organization [place] Address [address] [place] [address] Care Team Providers Name Role Phone Queta Fritz MD Primary Care Provider [phone] Queta Fritz MD Unavailable [phone] Queta Fritz MD Unavailable [phone] Encounter Details Date Type Department Care Team Description 07/08/2015 Office Visit [facility] Rochelle Ivey, Adjustm ent disorder Services [facility] with mixed [facility] COUNSELING disturbance of [address] emotions and conduct [place], [place] [address] (Primary Dx) [phone] [place] [address] (Wo rk) Social History Tobacco [...] do you attend latter-day or Never 2018 nondenominational services? 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 encounter Progress Notes Rochelle Ivey, CONTROL EQUIPMENT ELECTRICIAN - 07/20/2015 7:26 PM CST Progress Note Client Name: Mahi Faye Date: 07/08/2015 Service Type: Family with client present Session Start Time: 5:00 pm Session End Time: 6:00 pm Session Length: 60 minutes Session #: 16 Attendees: Client and Mother Treatment Plan Last Reviewed: 04/29/2015 DATA Progress Since Last Session (Related to Symptoms / Goals / Homework): Symptoms: Symptoms and associated behaviors reported included aggression towards mother, fighting with sibling, anger, difficulty redirecting, impulsive, low frustration tolerance and argumentative. Homework: Partially completed Episode of Care Goals: Minimal progress - PREPARATION (Decided to change - considering how); Intervened by negotiating a change plan and determining options / strategies for behavior change, identifying triggers, exploring social supports, and working towards setting a date to begin behavior change Current / Ongoing Stressors and Concerns: Typewriter Ribbon Winder was able to meet with client and her mother after signwriter's next client failed to arrive. Current concerns reported included the following: Client's parents are in the process of a divorce. Client's father has MS. Client adjusting to several recent changes including [facility]. There is also more conflict between client and her brother. Treatment Objective(s) Addressed in This Session: identify at least three deescalation techniques for intervening on the escalation track and record at least ten pleasant exchanges with client's mother and brother each Met with client and her mother to discuss the impact of the two incidents in which th client becameaggressive has had on the family. Client's mother expressed frustration about client's behaviors. She does not know what else to do. Intervention: Motivational Interviewing: Discussed the incident with client. Discussed what it was about the situation that triggered client's reaction, identifying client's feelings at the time, and discussed the consequences of how client chose to deal with the situation. Explored what client could have done different to get a better outcome and to reduce conflict. Also discussed and encouraged client to practice her calming techniques at least twice each day to become better familiar with using them when needed. Also stressed to client the importance of using her calming techniques before she physically reacts to a situation. Discussed connecting client with other community supports like children's mental health case management or developmental disability services. Client's mother scheduled an appointment for some testing through [facility]. Also discussed what things client would need to do to repair relationship with her family in light of the increase in aggression lately. ASSESSMENT: Current Emotional / Mental Status (status [...] Normal Mood: Angry Anxious Irritable Affect: Appropriate Expansive Thought Content: Clear Thought Form: Coherent Logical Insight: Fair Medication Review: No current psychiatric medications prescribed Medication Compliance: NA Changes in Health Issues: None reported Chemical Use Review: Substance Use: Chemical use reviewed, no active concerns identified Tobacco Use: No current tobacco use. Collateral Reports Completed: Not Applicable PLAN: (Client Tasks / Therapist Tasks / Other) - Client will spent ten minutes each day talking about her feelings/day to another adult to facilitate appropriate expressions of her feelings. - Client will practice using her calming and anger management strategies three times a day to manageher reaction to provocations. - Client will complete a anger log for each time she become angry to promote better understanding of client's reaction to times when she gets and the outcome. 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
--- OUTSIDE RECORDS SUMMARY | 2022-04-23 23:50 | XMS_ITS | Encounter Summary ---
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 Progress Note - Initial Session Client Name: Mahi Faye Date: 12/18/2014 Service Type: Diagnostic Evaluation Session Start Time: 11:00 am Session End Time: 12:00 pm Session Length: 53 - 60 Session #: 1 Attendees: Client and Mother Diagnostic Assessment in progress. Unable to complete documentation at the conclusion of the first session due to paperwork not completed by the time of the appointment. Mental Status Assessment: Appearance: Appropriate Eye Contact: Poor Psychomotor Behavior: Restless Attitude: Cooperative Orientation: All Speech Rate / Production: Normal Volume: Normal Mood: Irritable Affect: Appropriate Thought Content: Clear Thought Form: Coherent Logical Insight: Fair Safety Issues and Plan for Safety and Risk Management: Client denies current fears or concerns for personal safety. Client denies current or recent suicidal ideation or behaviors. Client denies current or recent homicidal ideation or behaviors. Client denies current or recent self injurious behavior or ideation. Client denies other safety concerns. A safety and risk management plan has not been developed at this time, however client was given the after-hours number should there be a change in any of these risk factors. Client reports there are no firearms in the house. Diagnostic Criteria: Disruptive Behavior Disorder - Criteria met includes: aggressive behaviors, argues frequently, does not follow directions well. 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 Collateral Reports Completed: Not Applicable PLAN: (Homework, other): Client stated that she may follow up for ongoing services with [facility]. Complete diagnostic evaluation at the follow visit on December 26. Rochelle Ivey LICSW documented in this encounter Plan of Treatment Not on filedocumented as of this encounter Visit Diagnoses Diagnosis Disruptive Behavior Disorder, NOS - prov isional Unspecified disturbance of conduct documented in this encounter Care Teams Shank Sander Relationship Specialty Start Date End Date Queta Fritz MD PCP - General Pediatrics 11/15/14 12/18/15 [address] [place] [address] [id number] Queta Fritz MD PCP - Assigned PCP 03/04/14 09/20/18 [address] [place] [address] [phone] Queta Fritz MD Assigned PCP 03/04/14 04/12/21 [address] [place] [id number] documented as of this encounter
--- OUTSIDE RECORDS SUMMARY | 2022-04-23 23:50 | XMS_ITS | Encounter Summary ---
:2002 Author Organization [facility] Address [address] [place] [address] Care Team Providers Name Role Phone Queta Fritz MD Primary Care Provider [phone] Queta Fritz MD Unavailable [phone] Queta Fritz MD Unavailable [phone] Reason for Visit Reason Comments Allied Health Visit Flu shot, 2nd HPV Encounter Details Date Type Department Care Team Description 05/28/2015 Allied Health/Nurse Health [facility] Visit Visit Clinic [place] (Flu shot, 2nd HPV) [id number] [facility], [address] [place] [address] Social History Tobacco Use Types Packs/Day Years [...] do you attend methodist or Never 2018 congregation services? 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 Is the person to be vaccinated sick today? No 2. Does the person to be vaccinated have an allergy to eggs or to a component of the influenza vaccine? No 3. Has the person to be vaccinated ever had a serious reaction to influenza vaccine (FluMist) in thepast? No 4. Is the person to be vaccinated younger than age 2 years or older than age 49 years? No 5. Does the person to be vaccinated have a long-term health problem with heart disease, lung disease(including asthma), kidney disease, neurologic disease, liver disease, disease (e.g., diabetes), or anemia or another blood disorder? No 6. If the person to be vaccinated is a child age 2 through 4 years, in the past 12 months, has a health care provider told you the child had wheezing or asthma? No 7. Does the person to be vaccinated have cancer, leukemia, HIV/AIDS, or any other immune system problem; or, in the past 3 months, have they taken medications that affect the immune system, such as prednisone, other steroids, drugs for the treatment of rheumatoid arthritis, Crohn???s disease, or psoriasis or anticancer drugs; or have they had radiation treatments? No 8. Is the person to be vaccinated receiving influenza antiviral medications? No 9. Is the person to be vaccinated a child or teen age 2 through 17 years and receiving aspirin therapy or aspirin-containing therapy? No 10. Is the person to be vaccinated or could she become within the next month? No 11. Has the person to be vaccinated ever had Guillain-Chong?? syndrome? No 12. Does the person to be vaccinated live with or expect to have close contact with a person whose immune system is severely compromised and who must be in protective isolation (e.g., an isolation roomof a bone marrow transplant unit)? No 13. Has the person to be vaccinated received any other vaccinations in the past 4 weeks? No Form completed by: Eleanor(mother) N DRIVER SALESPERSON documented in this encounter Plan of Treatment Not on filedocumented as of this encounter Visit Diagnoses Diagnosis Need for prophylactic vaccination and in oculation against influenza - Primary Need for HPV vaccination Need for prophylactic vaccination and in oculation against other viral diseases documented in this encounter Care Teams Furnace Room Supervisor Relationship Specialty Start Date End Date Queta Fritz MD PCP - General Pediatrics 11/15/14 12/18/15 [address] [place] [address] [phone] Queta Fritz MD PCP - Assigned PCP 03/04/14 09/20/18 [address] [place] [address] [phone] Queta Fritz MD Assigned PCP 03/04/14 04/12/21 [address] [place] [address] [phone] documented as of this encounter
--- OUTSIDE RECORDS SUMMARY | 2022-04-23 23:50 | XMS_ITS | Encounter Summary ---
:2002 Author Organization [facility] Address [address] [place] [address] Care Team Providers Name Role Phone Queta Fritz MD Primary Care Provider Queta Fritz MD Unavailable [phone] Queta Fritz MD Unavailable [phone] Reason for Referral [facility] Therapy - Closed Specialty Diagnoses / Procedures Referred By Contact Refer red To Contact Diagnoses LBP (low back pain) Pain in thoracic spine Queta Fritz [facility] [address] [place] [address] [place] [address] Phone: [phone] Referral ID Status Reason Start Date Expiration Date Visits Requ ested Visits Authorized [id number] Closed 01/10/2015 07/09/2015 1 1 Reason for Visit Reason Onset Date Comments PT Initial Visit 01/04/2015 Encounter Details Date Type Department Care Team Description 01/04/2015 Telephone [facility] Tiffanie Fritz PT Initial Visit Krystle De Jesus MD [address] [address] [place], [place] [address] (Wo rk) Social History Tobacco Use Types [...] do you attend rastafari or Never 2018 catholic services? 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 I'll fax one out this morning. Thanks! Diane Mccormack DPT ----- Message ----- From: Queta Fritz MD Sent: 01/04/2015 10:41 PM To: Diane Mccormack PT Subject: RE: add order for patient I certainly would.Can you help me do that? ----- Message ----- From: Diane Mccormack PT Sent: 01/04/2015 9:00 AM To: Queta Fritz MD Subject: add order for patient Lluvia Dr. Fritz, I am one of the physical therapists that has seen Mahi and I just wanted to give you a quick update. We have tried many different variations of exercises and stretches to try to address her low back pain and she reports increases in pain with everything. So it doesn't seem like traditional PT willhelp her. I wanted to see if you would approve pool therapy for her - she says that she likes to swim and I think that may be more beneficial to her. Thanks so much, Diane Mccormack DPT Telephone Encounter - Leti Holder - 01/07/2015 2:[address] in [address] Fritz's basket Telephone Encounter - Queta Fritz MD - 01/04/2015 10:40 PM CDT ----- Message from Diane Mccormack PT sent at 01/04/2015 9:00 AM CDT ----- Regarding: add order for patient Lluvia Dr. Fritz, I am one of the physical therapists that has seen Mahi and I just wanted to give you a quick update. We have tried many different variations of exercises and stretches to try to address her low back pain and she reports increases in pain with everything. So it doesn't seem like traditional PT willhelp her. I wanted to see if you would approve pool therapy for her - she says that she likes to swim and I think that may be more beneficial to her. Thanks so much, Diane Mccormack DPT documented in this encounter Plan of Treatment Scheduled Referrals Name Type Priority Associated Diagnoses Order S howard [facility] PT, HAND, AND Referral Routine LBP (low back pain) Ordered: 01/10/2015 CHIROPRACTIC REFERRAL Pain in thoracic sp ine documented as of this encounter Visit Diagnoses Diagnosis LBP (low back pain) - Primary Lumbago Pain in thoracic spine Learning disability Other specific developmental learning di fficulties documented in this encounter Care Teams Endocrinology Teacher Relationship Specialty Start Date End Date Queta Fritz MD PCP - General Pediatrics 11/15/14 12/18/15 [address] [address] Queta Frtiz MD PCP - Assigned PCP 03/04/14 09/20/18 [address] [address] Queta Fritz MD Assigned PCP 03/04/14 04/12/21 [address] [phone] documented as of this encounter
--- OUTSIDE RECORDS SUMMARY | 2022-04-23 23:50 | XMS_ITS | Encounter Summary ---
:2002 Author Organization [facility] Address [facility] [place] [address] Care Team Providers Name Role Phone Queta Fritz MD Primary Care Provider [phone] Queta Fritz MD Unavailable [phone] Queta Fritz MD Unavailable [phone] Reason for Visit [facility] Therapy (Routine) - Closed Specialty Diagnoses / Procedures Referred By Contact Refer red To Contact Queta Fritz [facility] - [address] [place] [address] [address] [place] [address] Phone: Fax: Referral ID Status Reason Start Date Expiration Date Visits V isits Requested Authorized [id number] Closed 12/19/2014 02/16/2015 6 6 Encounter Details Date Type Department Care Team Description 12/19/2014 Therapy Visit [facility] Diane Mccormack Cervi calgia (Primary Dx); Rehabilitation Services PT Ji Covarrubias [address] [address] [address] [place] [address] [place], [place] [phone] Social History Tobacco Use Types Packs/Day Years [...] do you attend sikh or Never 2018 mandaen services? 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 Condition occurred with:Insidious onset. Condition occurred: for unknown reasons. This is a new condition 11/16/2014. Patient reports pain: Cervical right side and cervical left side. Radiates to: Shoulder right, shoulder left, upper arm right, upper arm left, lower arm right, lower arm left, hand right and hand left.Associated symptoms: Numbness and tingling (R middle fingers). Symptoms are exacerbated by sitting and lying down (typing on computer) and relieved by activity/movement. Since onset symptoms are gradually worsening. General health as reported by patient is excellent. Mahi Faye is a 14 year old female with a lumbar condition. Condition occurred with: Insidious onset. Condition occurred: for unknown reasons. This is a new condition 11/16/2014. Patient reports pain: Lumbar spine right and lumbar spine left. Radiates to: Gluteals right, gluteals left, thigh right, thigh left, lower leg left, lower leg right, foot left and foot right. Pain is described as aching and is intermittent and reported as 7/10. Symptoms are exacerbated by standing, lying down and sitting (running) and relieved by activity/movement. Since onset symptoms are gradually worsening. General health as reported by patient is excellent. Objective: System Physical Exam Nba Cervical Evaluation Posture: Sitting: poor Protruding Head: yes Wry Neck: no Correction of Posture: no effect Movement Loss: Flexion (Flex): pain and nil Retraction (RET): major and pain Extension (EXT): nil and pain Lateral Flexion Right (LF R): min Lateral Flexion Left (LF L): min Rotation Right (ROT R): nil and pain Rotation Left (ROT L): nil and pain Test Movements: RET: During: produces After: worse Mechanical Response: no effect Repeat RET: During: peripheralizing After: worse Mechanical Response: no effect RET (Lying): During: peripheralizing After: peripheralizing Mechanical Response: no effect Repeat RET (Lying): During: peripheralizing After: peripheralizing Mechanical Response: no effect Conclusion: other Principle of Treatment: Posture Correction: focus initially on posture Nba Lumbar Evaluation Posture: Sitting: poor Standing: fair Lordosis: Accentuated Lateral Shift: no Correction of Posture: better Movement Loss: Flexion (Flex): min Extension (EXT): major Side Bude R (SG R): min Side Bude L (SG L): min Static Tests: Lying Prone in Extension: sx worse in neck and low back Conclusion: other Principle of Treatment: Posture Correction: slouch/overcorrect and use of towel roll at back when sitting ROS Assessment/Plan: Patient is a 14 year old female with cervical and lumbar complaints. Patient has the following significant findings with corresponding treatment plan. Diagnosis 1: Neck pain Pain - directional preference exercise and home program Decreased function - therapeutic activities and home program Impaired posture - neuro re-education and home program Diagnosis 2: LBP Pain - directional preference exercise and home program Decreased ROM/flexibility - manual therapy, therapeutic exercise and home program Decreased function - therapeutic activities and home program Impaired posture - neuro re-education and home program Previous and current functional limitations: (See Goal Flow Sheet for this information) Short term and termite exterminator goals: (See Goal Flow Sheet for this information) Communication ability: Patient appears to be able to clearly communicate and understand verbal and written communication and follow directions correctly. Treatment Explanation - The following has been discussed with the patient: RX ordered/plan of care Anticipated outcomes Possible risks and side effects This patient would benefit from PT intervention to resume normal activities. Rehab potential is good. Frequency: 1 X week, once daily Duration: for 4-6 weeks Discharge Plan: Achieve all LTG. Independent in home treatment program. Reach maximal therapeutic benefit. Please refer to the daily flowsheet for treatment today, total treatment time and time spent performing 1:1 timed codes. documented in this encounter Plan of Treatment Not on filedocumented as of this encounter Procedures Procedure Name Priority Date/Time Associated Diagnosis Comme nts ZC NEUROMUSCULAR Routine 12/19/2014 6:25 PM Cervicalgia RE-EDUCATION CDT Lumbago documented in this encounter Visit Diagnoses Diagnosis Cervicalgia - Primary Lumbago documented in this encounter Care Teams Roller Helper Relationship Specialty Start Date End Date Queta Fritz MD PCP - General Pediatrics 11/15/14 12/18/15 [address] [place] [address] [phone] Queta Fritz MD PCP - Assigned PCP 03/04/14 09/20/18 [address] [place] [address] [phone] Queta Fritz MD Assigned PCP 03/04/14 04/12/21 [address] [place] [address] [phone] documented as of this encounter
--- OUTSIDE RECORDS SUMMARY | 2022-04-23 23:50 | XMS_ITS | Encounter Summary ---
:2002 Author Organization [facility] Address [address] [place] [address] Care Team Providers Name Role Phone Queta Fritz MD Primary Care Provider [phone] Queta Fritz MD Unavailable [phone] Queta Fritz MD Unavailable [phone] Encounter Details Date Type Department Care Team Description 04/29/2015 Office Visit [facility] Rochelle Ivey, Adjustm ent disorder Services [facility] with mixed [facility] COUNSELING disturbance of [address] emotions and [place], [place] [address] conduct, mild [address] [place] [address] (Primary Dx) [phone] (Wo rk) Social History Tobacco Use Types [...] do you attend islam or Never 2018 alevism services? Do you [...] at Date Recorded Female 09/04/2021 9:00 PM BIOINFORMATICS SOFTWARE ENGINEER documented as of this encounter Progress Notes Rochelle Ivey, SHIP PROPELLER FINISHER - 06/04/2015 8:19 PM CST Progress Note Client Name: Mahi Faye Date: 04/29/2015 Service Type: Individual Session Start Time: 4:00 pm Session End Time: 5:00 pm Session Length: 60 minutes Session #: 10 Attendees: Client and Mother for the last ten minutes Treatment Plan Last Reviewed: 04/29/2015 DATA Progress Since Last Session (Related to Symptoms / Goals / Homework): Symptoms: Symptoms and associated behaviors reported included defiance, anger, low frustration tolerance, argumentative and impulsivity. Homework: Partially completed Episode of Care Goals: Minimal progress - ACTION (Actively working towards change); Intervened by reinforcing change plan / affirming steps taken Current / Ongoing Stressors and Concerns: Met with client for a return visit. Client's mother was also present for the last ten minutes of the session. Client reportedly has been doing well at school. Client's mother reported that there have been fewer issues at school. Client's mother reported that client continued to have relationship issues with her father. Client's mother reported privately that she and client's father plan to tell client about getting a divorce. Talked with client's mother about engineering technical writer's availability to provide clientwith support after learning that her parents will be . Treatment Objective(s) Addressed in This Session: identify patterns of escalation (i.e. tightness in chest, flushed face, increased heart rate, clenched hands, etc.) identify at least six techniques for intervening on the escalation Fewer incidents of aggression or anger reported by client. Intervention: Motivational Interviewing: Commended client for being able to manage her feelings, especially feelings of anger. Spent some time talking with clinet about how she expresses her feelings. Talked about appropriate ways of expressing certain feelings like journaling or talking to a close adult or friend. ASSESSMENT: Current Emotional / Mental Status (status [...] Rate / Production: Normal Volume: Normal Mood: Normal Affect: Appropriate Thought Content: Clear Thought Form: [...] Client will spent ten minutes each day checking in with a friend or close adult about her feelingsand day. - Client will continue to use her calming and coping strategies to manage her reaction to provocations. - Continue working with client on increasing her knowledge and understanding of the anger cycle. 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
--- OUTSIDE RECORDS SUMMARY | 2022-04-23 23:50 | XMS_ITS | Encounter Summary ---
:2002 Author Organization [place] Address [facility] [place] [address] Care Team Providers Name Role Phone Darby Harp MD Primary Care Provider Queta Fritz MD Unavailable [phone] Queta Fritz MD Unavailable [phone] Reason for Visit Reason Comments RECHECK is here for a follow up, was seen at [facility] a week ago and had a peritoneal abcess drained, a lso feels like something is crawling under scalp and neck. Encounter Details Date Type Department Care Team Description 07/23/2014 Office Visit [facility] Queta Fritz ty (Primary Dx); Clinic Krystle De Jesus MD Tonsillar abscess, S/P drainage; [address] [place] [address] Insomnia ; [place] [address] [place] [address] [id number] (Wo rk) Social History Tobacco Use Types [...] do you attend presybeterian or Never 2018 mormonism services? 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 (Girls, 2-20 Years) documented in this encounter Patient Instructions Patient InstructionsFoQueta roque MD - 07/23/2014 8:35 PM TECHNOLOGY OFFICER Treatment for insomnia. 2-10 mg of melatonin (sublingual is the best) take every night for 2 weeks Can also try benadryl 25-50 mg before bed Green Tea. This can be drank as a tea or brewed and added to any number of foods or drinks (even a smoothie!) 2-3 bags a day. During an anxious time use lavender or chamomile essential oil look for SonicPollen Books: Be the Boss of your body series by Heladio Mccarty. Be the boss of you worries. Be the boss of your sleep. [facility] Local resources: Dr Munguia in [facility] clinic for [facility] [phone] [facility] in [place] [phone] Full service clinic with a wide variety of Complementary and Alternative Medicine (CAM) options as well as conventional treatment by a well known behavioral health care coordinator. Licensed Clinic Call Center Specialist: This level of training make up the bulk of counselling providers. This is all they do and many do itvery well. Angie has some very good WOODS SUPERINTENDENT at the [facility] [phone] NOLOGY OFFICER documented in this encounter Progress Notes Queta Fritz MD - 09/04/2014 10:48 PM CST SUBJECTIVE: Mahi is a 14 year old female who presents for two problems. The first is a follow up of a Peritonsillar abscess that was drained under general anesthesia 1 weekago. She continues on antibiotic and ia feeling completely tricia. In the neck and throat. Mahi has not had a history of this problem in the past. The second problem has been going on for a month or so. Recall Mahi is developmentally delayed and suffers from some anxiety. She complains of the sensation of crawling skin that occurs on the scalpover the left side of the head. This is quite disturbing to her. In the past week or two it is also noted in the upper back and the entire back of the neck. She notes it the most when it is time to go to bed. She is finding it very difficult to fall asleep as she cannot calm down about this. There is no h/o injury, ingestion, new medication. She complains that her father makes fun of her about this. She does not talk about it in school. No h/o hallucinations. Objective: GENERAL: Alert, vigorous, is in no acute distress. SKIN: skin is well purfused, of normal turgor, no rash. Mucous membranes are moist. EYES: The eyes are normal.without conjunctivael injection or lid edema. EARS: The external auditory canals are clear and the tympanic membranes are normal; presley and translucent. NOSE: Clear, no discharge or congestion THROAT: The throat is clear. NECK: The neck is supple. LYMPH NODES: No adenopathy LUNGS: The lung perdomo are clear to auscultation,no rales, rhonchi, wheezing or retractions HEART: The precordium is quiet. Rhythm is regular, no murmur. ABDOMEN: The bowel sounds are normal. Abdomen soft, non tender, non distended, no masses or hepatosplenomegaly. Assessment: Encounter Diagnoses Name Primary? Tonsillar abscess, S/P drainage ??? Anxiety Yes ??? Insomnia ??? Disturbance of skin sensation PLAN: Discussed cause and natural history of paresthesias This is a real sensation. The distribution is not consistant with a neurologic issue. This is an anxiety based sensation. Mahi needs to sleep. The lack of sleep is worsening the anxiety. Treatment for insomnia. 2-10 mg of melatonin (sublingual is the best) take every night for 2 weeks Can also try benadryl 25-50 mg before bed Green Tea. This can be drank as a tea or brewed and added to any number of foods or drinks (even a smoothie!) 2-3 bags a day. During an anxious time use lavender or chamomile essential oil look for SonicPollen Books: Be the Boss of your body series by Heladio Mccarty. Be the boss of you worries. Be the boss of your sleep. [facility] Local resources: Dr Munguia in [facility] clinic [facility] [phone] [facility] in [place] [phone] Full service clinic with a wide variety of Complementary and Alternative Medicine (CAM) options as well as conventional treatment by a well known behavioral health care coordinator. Licensed Clinic Call Center Specialist: This level of training make up the bulk of counselling providers. This is all they do and many do itvery well. [facility] has some very good WOODS SUPERINTENDENT at the [facility] [phone] Visit length 35 min with 50 % being direct counselling NOLOGY OFFICER documented in this encounter Nursing Notes Henrietta Noyola, SCHOOL CROSSING GUARD - 07/23/2014 7:59 PM CST Chief Complaint Patient presents with ??? RECHECK is here for a follow up[facility]cess [facility], also feels like something is crawling under scalp and neck. Initial BP 100/64 Temp(Src) 98.2 ??F (36.8 ??C) (Oral) Ht 5' 3.25 (1.607 m) Wt 95 lb 3.2 oz (43.182 kg) BMI 16.72 kg/m2 Estimated body mass index is 16.72 kg/(m^2) as calculated from the following: Height as of this encounter: 5' 3.25 (1.607 m). Weight as of this encounter: 95 lb 3.2 oz (43.182 kg). BP completed using cuff size: regular Henrietta Noyola CMA NOLOGY OFFICER documented in this encounter Plan of Treatment Not on filedocumented as of this encounter Visit Diagnoses Diagnosis Anxiety - Primary Anxiety state, unspecified Tonsillar abscess, S/P drainage Peritonsillar abscess Insomnia Insomnia, unspecified Disturbance of skin sensation documented in this encounter Care Teams Type Mapper Relationship Specialty Start Date End Date Darby Harp MD PCP - General 03/25/05 11/14/[address] [place] [id number] Queta Fritz MD PCP - Assigned PCP 03/04/14 09/20/18 [address] [place] [address] [id number] Queta Fritz MD Assigned PCP 03/04/14 04/12/21 [address] [place] [address] [id number] documented as of this encounter
--- OUTSIDE RECORDS SUMMARY | 2022-04-23 23:50 | XMS_ITS | Encounter Summary ---
:2002 Author Organization [place] Address [address] [place] [address] Care Team Providers Name Role Phone Darby Harp MD Primary Care Provider [phone] Queta Fritz MD Unavailable [phone] Queta Fritz MD Unavailable [phone] Encounter Details Date Type Department Care Team Description 09/07/2014 Radiant Appointment [facility] Bella Fritz in finger, [facility] Queta De Jesus, right [address] [place] [address] [facility] 100 [address] [place], [place] [phone] [address] Social History Tobacco Use Types Packs/Day [...] you attend roman catholic or Never 2018 confucianist services? Do you [...] at Date Recorded Female 09/04/2021 9:00 PM STAFF ELECTRONIC WARFARE OFFICER documented as of this encounter Plan of Treatment Not on filedocumented as of this encounter Procedures Procedure Name Priority Date/Time Associated Diagnosis Comme nts XR FINGER RIGHT G/E Routine 09/07/2014 10:33 AM Pain in finger , Results for this 2 VIEWS STAFF ELECTRONIC WARFARE OFFICER right procedure are i n the results section. documented in this encounter Results (ABNORMAL) XR Finger Right G/E 2 Views (09/07/2014 10:33 AM STAFF ELECTRONIC WARFARE OFFICER) [facility] gist Method Time Signature Radiologist See report RADIOLOGY flags (Urgent) RESULTS Anatomical Region Laterality Modality Right Hand Right Computed Radiography Specimen (Source) Anatomical Location Collection Method / Collectio n Time Received Time / Laterality Volume Impressions 09/07/2014 11:25 AM STAFF ELECTRONIC WARFARE OFFICER IMPRESSION: ??3 views of the little finger. There is an oblique nondisplaced fracture through the shaft of the little finger proximal phalanx with out evidence for extension to the epiphyseal plate.. [Urgent result: See report] CAMMY ROJAS MD Narrative 09/07/2014 11:25 AM STAFF ELECTRONIC WARFARE OFFICER XR FINGER RT G/E 2 VW ??09/07/2014 10:33 AM HISTORY: ??Pain. COMPARISON: ??None. Procedure Note Cammy Rojas MD - 5 XR FINGER RT G/E 2 VW 09/07/2014 10:33 AM HISTORY: Pain. COMPARISON: None. IMPRESSION IMPRESSION: 3 views of the little finger . There is an oblique nondisplaced fracture through the shaft of the little finger proximal phalanx with out evidence for extension to the epiphyseal plate.. [Urgent result: See report] CAMMY ROJAS MD Queta Fritz MD IMG DIAGNOSTIC IMAGING ORDER LINDSAY documented in this encounter Visit Diagnoses Diagnosis Pain in finger, right documented in this encounter Care Teams Inventory Audit Clerk Relationship Specialty Start Date End Date Darby Harp MD PCP - General 03/25/05 11/14/14 [address] [facility] [address] [phone] Queta Fritz MD PCP - Assigned PCP 03/04/14 09/20/18 [address] [phone] Queta Fritz MD Assigned PCP 03/04/14 04/12/21 [address] [id number] documented as of this encounter
--- OUTSIDE RECORDS SUMMARY | 2022-04-23 23:50 | XMS_ITS | Encounter Summary ---
:2002 Author Organization [place] Address [address] [place] [address] Care Team Providers Name Role Phone Darby Harp MD Primary Care Provider [phone] Queta Fritz MD Unavailable [phone] Queta Fritz MD Unavailable [phone] Reason for Visit Reason Comments Musculoskeletal Problem Right hand pinky finger wasj ammed in basket ball approximately 2 weeks ago. S till experiencing pain when trying to use the hand. Nurs e at school had buddied wrapped it for 2 weeks Encounter Details Date Type Department Care Team Description 09/07/2014 Office Visit [facility] Queta Fritz Pain in finger, right (Primary Dx); Clinic Krystle De Jesus MD Aggression with talk of suicide/homicide ; [address] [place] [address] Anxiety; [place] 100 Chromosomal abnormality; [place], [place] Learning di sability [id number] [phone] (Wo rk) Social History Tobacco Use Types [...] do you attend jainism or Never 2018 yazidi services? Do you [...] Date Recorded Female 09/04/2021 9:00 PM METAL CEILING BUILDER documented as of this encounter Last Filed Vital Signs Vital Sign Reading Time Taken Comments Blood Pressure 98/68 09/07/2014 9:34 AM METAL CEILING BUILDER Pulse 60 09/07/2014 9:34 AM METAL CEILING BUILDER Temperature 36.9 ??C (98.4 ??F) 09/07/2014 9:34 AM METAL CEILING BUILDER Respiratory Rate - - Oxygen Saturation - - Inhaled Oxygen Concentration - - Weight 44.8 kg (98 lb 12.8 oz) 09/07/2014 9:34 AM METAL CEILING BUILDER Height 162.6 cm (5' 4) 09/07/2014 9:34 AM METAL CEILING BUILDER Body Mass Index 16.96 09/07/2014 9:34 AM METAL CEILING BUILDER Body Mass Index Percentile 28.19 % 09/07/2014 9:34 AM CS T Growth Chart: [facility] (Girls, 2-20 Years) documented in this encounter Patient Instructions Patient InstructionsFoQueta roque MD - 09/07/2014 10:19 AM METAL CEILING BUILDER Your family needs family counselling. Mahi needs individual counselling and full psychological evaluation. Consider music for the bus. Ask about self regulation help at the school L CEILING BUILDER documented in this encounter Progress Notes Queta Fritz MD - 09/07/2014 10:10 AM CST DCD classes 6th grade lots of homicidal/ suicidal talk Throwing things, no resiliance Sib 10 years brother. Very poor relationship with brother. Queta Fritz MD - 09/07/2014 9:38 AM CST SUBJECTIVE: Mahi Faye is a 14 year old female who sustained a right 5th finger injury (jam) two weeks ago in [facility]. It has been rema taped and still hurts. No break in the skin. Prior history of related problems: no prior problems with this area in the past. OBJECTIVE: Vital signs as noted above. Appearance: in no apparent distress. Hand exam: except for tenderness of the distal fifth finger on the right with minimal edema, her exam is normal, no swelling, tenderness, instability; ligaments intact, FROM all hand, wrist, finger joints. X-ray: fracture of distal phalynx. Non displaced. ASSESSMENT: Finger fracture PLAN: activity modification splint See orders in EpicCare. Also, she has additional complaints of worsening anxiety and acting out. See previous note. 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 Her behavior at home and at school is escalating and she is talking a lot about suicide and homicide. She is not presently in counselling nor is the family. After a discussion that revealed she was likely to respond to reinforcement of rules I advised Mahi that it is not OK to talk about killing. It is against the rules Patient Instructions Your family needs family counselling. Mahi needs individual counselling and full psychological evaluation. Consider music for the bus. Ask about self regulation help at the school Visit length 25 min with 50 % being direct counselling . documented in this encounter Nursing Notes Petra Denson - 09/07/2014 9:38 AM CST Chief Complaint Patient presents with ??? Musculoskeletal Problem Right hand pinky finger wasjammed in basket ball approximately 2 weeks ago. Still experiencing painwhen trying to use the hand. Initial BP 98/68 Pulse 60 Temp(Src) 98.4 ??F (36.9 ??C) (Oral) Ht 5' 4 (1.626 m) Wt 98 lb 12.8 oz (44.815 kg) BMI 16.95 kg/m2 Estimated body mass index is 16.95 kg/(m^2) as calculated from the following: Height as of this encounter: 5' 4 (1.626 m). Weight as of this encounter: 98 lb 12.8 oz (44.815 kg). BP completed using cuff size: small regular L CEILING BUILDER documented in this encounter Plan of Treatment Not on filedocumented as of this encounter Results (ABNORMAL) XR Finger Right G/E 2 Views (09/07/2014 10:33 AM METAL CEILING BUILDER) [facility] Method Time Signature Radiologist See report RADIOLOGY flags (Urgent) RESULTS Anatomical Region Laterality Modality Right Hand Right Computed Radiography Specimen (Source) Anatomical Location Collection Method / Collectio n Time Received Time / Laterality Volume Impressions 09/07/2014 11:25 AM METAL CEILING BUILDER IMPRESSION: ??3 views of the little finger. There is an oblique nondisplaced fracture through the shaft of the little finger proximal phalanx with out evidence for extension to the epiphyseal plate.. 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
--- OUTSIDE RECORDS SUMMARY | 2022-04-23 23:50 | XMS_ITS | Encounter Summary ---
:2002 Author Organization [place] Address [address] [place] [address] Care Team Providers Name Role Phone Darby Harp MD Primary Care Provider [phone] Queta Fritz MD Unavailable [phone] Queta Fritz MD Unavailable [phone] Encounter Details Date Type Department Care Team Description 07/16/2014 Telephone [facility] Nurse Khalida Ocampo, RN [facility] [address] [place] [address] Social History Tobacco Use Types Packs/Day Years [...] do you attend shinto or Never 2018 faith services? 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 She says that her throat seems to be hurting worse tonight and she keeps waking up with the pain. She has tried advil Triage Note: Guideline Title: Sore Throat (Pediatric) Recommended Disposition: See Provider within 24 hours Original Inclination: Wanted to speak with a nurse Override Disposition: Intended Action: Follow advice given Physician Contacted: No [1] SEVERE throat pain (interferes with function) AND [2] not improved after 2 hours of ibuprofen AND [3] drinking adequately ? YES [1] Drinking very little AND [2] signs of dehydration (no urine > 12 hours, very dry mouth, no tears, etc.) ? NO Child sounds very sick or weak to the triager ? NO [1] Refuses to drink anything AND [2] for > 12 hours ? NO Difficulty breathing (per caller) but not severe ? NO [1] Diagnosed strep throat AND [2] taking antibiotic AND [3] symptoms continue ? NO Unable to open mouth completely ? NO [1] Drooling or spitting out saliva (because can't swallow) AND [2] any difficulty breathing ? NO Sounds like a life-threatening emergency to the triager ? NO Slow, shallow, weak breathing ? NO [1] Fever AND [2] > 105 F (40.6 C) by any route OR axillary > 104 F (40 C) ? NO [1] Stiff neck (can't touch chin to chest) AND [2] fever ? NO Throat culture results, calls about ? NO Age < 2 years old ? NO [1] Stiff neck or head tilt AND [2] no fever ? NO Sores present on the skin ? NO [1] Age < 2 years AND [2] swallowing difficulty ? NO [1] Age < 2 years AND [2] fluid intake is decreased ? NO [1] Difficulty breathing AND [2] severe (struggling for each breath, unable to cry or speak, stridor, severe retractions, etc) ? NO [1] Drooling or spitting out saliva (because can't swallow) AND [2] normal breathing ? NO Mononucleosis recently diagnosed ? NO [1] Throat surgery within last week AND [2] minor bleeding ? NO Cough is main symptom ? NO Croup is main symptom ? NO Hoarseness is main symptom ? NO Runny nose is the main symptom ? NO [1] Fever AND [2] weak immune system (sickle cell disease, HIV, splenectomy, chemotherapy, organ transplant, chronic oral steroids, etc) ? NO [1] Neck pain AND [2] can't move neck normally AND [3] fever ? NO [1] Rash AND [2] widespread (especially chest and abdomen)(Exception: if purpura or petechiae, see now) ? NO Physician Instructions: Care Advice: CARE ADVICE given per Sore Throat (Pediatric) guideline. SOFT DIET: Offer a soft diet. Cold drinks and milk shakes are especially helpful. Avoid citrus fruits. CALL BACK IF: * Your child becomes worse PAIN OR FEVER MEDICINE: For pain relief or fever above 102 F (39 C), give acetaminophen (e.g., Tylenol) every 4 hours OR ibuprofen (e.g., Advil) every 6 hours as needed. (See Dosage table.) Ibuprofen may be more effective in treating sore throat pain. SEE PHYSICIAN WITHIN 24 HOURS: * IF OFFICE WILL BE OPEN: Your child needs to be examined within the next 24 hours. Call your child's doctor when the office opens, and make an appointment. * IF OFFICE WILL BE CLOSED: Your child needs to be examined within the next 24 hours. Go to at your convenience. E AGENT documented in this encounter Plan of Treatment Not on filedocumented as of this encounter Visit Diagnoses Not on filedocumented in this encounter Care Teams Asphalt Paving Supervisor Relationship Specialty Start Date End Date Darby Harp MD PCP - General 03/25/05 11/14/14 [address] [facility] [address] [id number] Queta Fritz MD PCP - Assigned PCP 03/04/14 09/20/18 [address] [place] [id number] Queta Fritz MD Assigned PCP 03/04/14 04/12/21 [address] [place] [address] documented as of this encounter
--- OUTSIDE RECORDS SUMMARY | 2022-04-23 23:50 | XMS_ITS | Encounter Summary ---
:2002 Author Organization [facility] Address [address] [place] [address] Care Team Providers Name Role Phone Queta Fritz MD Primary Care Provider [phone] Queta Fritz MD Unavailable [phone] Queta Fritz MD Unavailable [phone] Encounter Details Date Type Department Care Team Description 05/18/2015 Office Visit [facility] Rochelle Ivey, Adjustm ent disorder Services [facility] with mixed [facility] COUNSELING disturbance of [address] emotions and conduct [place], [place] [address] (Primary Dx) [id number] [place] [address] (Wo rk) Social History Tobacco [...] do you attend nondenominational or Never 2018 scientology services? 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 Homework: Partially completed Episode of Care Goals: Minimal progress - ACTION (Actively working towards change); Intervened by reinforcing change plan / affirming steps taken Current / Ongoing Stressors and Concerns: Met with client for a return visit. Client's mother was also present for the last ten minutes of the session. Client reportedly has been doing well at school. Client continued to have relationship issues with her father. Client's mother reported that client is aware of her parents' divorce. Client stated that she did not care and was not bothered by learning that her parents would be getting a divorce. Offered client support and offered time for client to talk about her feelings regarding the changes she will be experiencing as a result of her parents divorce. Treatment Objective(s) Addressed in This Session: identify [...] talking to a close adult or friend. Spent some time also encouraging client to voice and talk about her feelings regarding her parents divorce. Provided client with information about appropriate ways of expressing different feelings. ASSESSMENT: Current Emotional / Mental Status (status [...] expressions of her feelings. - Client will continue to use her calming and coping strategies to manage her reaction to provocations. - Continue working with client on increasing her knowledge and understanding of the anger cycle. Rochelle Ivey LICSW RR OPERATOR documented in this encounter Plan of Treatment Not on filedocumented as of this encounter Visit Diagnoses Diagnosis 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 - Primary documented in this encounter Care Teams Batchmaker Relationship Specialty Start Date End Date Queta Fritz MD PCP - General Pediatrics 11/15/14 12/18/15 [address] [place] [address] Queta Fritz MD PCP - Assigned PCP 03/04/14 09/20/[address] [place] [address] Queta Fritz MD Assigned PCP 03/04/14 04/12/21 [address] [place] [address] documented as of this encounter
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
--- OUTSIDE RECORDS SUMMARY | 2022-04-23 23:50 | XMS_ITS | Encounter Summary ---
:2002 Author Organization [facility] Address [address] [place] [address] Care Team Providers Name Role Phone Queta Fritz MD Primary Care Provider [phone] Queta Fritz MD Unavailable [phone] Queta Fritz MD Unavailable [phone] Encounter Details Date Type Department Care Team Description 01/09/2015 Office Visit [facility] Rochelle Ivey, Adjustm ent disorder with mixed disturbance of emotions and conduct (Primary Dx); Services [facility] Anxiety state, unspecified [facility] COUNSELING [address] [place] [place], [place] [address] [place] [phone] [place], [place] [address] (Wo rk) Social History Tobacco Use Types [...] do you attend restorationism or Never 2018 sabianism services? 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 However, noincidents of aggressive behaviors since client's previous visit. Homework: Achieved / completed to satisfaction Episode of Care Goals: Satisfactory progress - ACTION (Actively working towards change); Intervenedby reinforcing change plan / affirming steps taken Current / Ongoing Stressors and Concerns: Met with client for a return visit. Client's mother was also present for today's visit. Checked in with client and client's mother about behaviors since her previous visit. Client has reportedly been doing okay. Client's mother mentioned that client is now sitting up in the passenger seat of their vehicle as a way of reducing conflict between client and brother during car rides. Talked with client about appropriate boundaries for riding in the front seat including keeping her hands to herself and not interrupting the milk driver. Client also took time during today's appointment to voice frustration about not being able to do things that her friends are doing because current family challenges. Discussed client's perception of not getting to do certain things. Also challenged client's all or nothing thinking which was evident in today's session. Client also became upset (crying, voicing suicidal thoughts) when discussing how her family supports her wants and needs. Client appeared fixated on what was not going well in her life and generalized it to it always happening. Client made statements about wanting to kill herself like saving up her money to buy a gun to kill herself. Explained to client what rfp writer would have to do to help keep herself if she was planning to harm herself including having her parent take her to the hospital for an evaluation. Client was able to say that she did not want to go to the hospital. Conversation then focused on helping the client identify things that she could do this afternoon for fun. Identified watching a movie, getting a treat, calling a friend or hanging out with a friend. Also suggested client spend some time playing with her new Shopkins purchases, which seemed to redirect client's thoughts of harming herself. Client was able to agree to playing with her Shopkins as well as her Beados toy to keep mind off of self harm. Client also agreed to bring her Shopkins in for her next visit to share with rfp writer. Treatment Objective(s) Addressed in This Session: identify patterns of escalation (i.e. tightness in chest, flushed face, increased heart rate, clenched hands, etc.) identify at least six techniques for intervening on the escalation Intervention: CBT: Discussed by identifying the ways in which the client's needs and wants are being met by family despite client's perception that she does not get to do what her other friends get to do ASSESSMENT: Current Emotional / Mental Status (status [...] Production: Normal Volume: Loud Mood: Normal Affect: Worrisome Tearful Thought Content: Rumination Thought Form: Tangential Insight: Poor Medication Review: No changes to current psychiatric medication(s) Medication Compliance: Yes Changes in Health Issues: None reported Chemical Use Review: Substance Use: Chemical use reviewed, no active concerns identified Tobacco Use: No current tobacco use. Collateral Reports Completed: Not Applicable Interactive Complexity: Yes, visit entailed Interactive Complexity evidenced by: -The need to manage maladaptive communication (related to, e.g., high anxiety, high reactivity, repeated questions, or disagreement) among participants that complicates delivery of care PLAN: (Client Tasks / Therapist Tasks / Other) Work with client on learning more self-regulating strategies to use when emotionally upset. Rochelle Ivey LICSW documented in this encounter Plan of Treatment Not on filedocumented as of this encounter Visit Diagnoses Diagnosis 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 - Primary Anxiety state, unspecified documented in this encounter Care Teams Inspector And Clerk Relationship Specialty Start Date End Date Queta Fritz MD PCP - General Pediatrics 11/15/14 12/18/15 [address] [phone] Queta Fritz MD PCP - Assigned PCP 03/04/14 09/20/18 [address] [phone] Queta Fritz MD Assigned PCP 03/04/14 04/12/21 [address] [phone] documented as of this encounter
--- OUTSIDE RECORDS SUMMARY | 2022-04-23 23:50 | XMS_ITS | Encounter Summary ---
:2002 Author Organization [facility] Address [address] [place] [address] Care Team Providers Name Role Phone Queta Fritz MD Primary Care Provider [phone] Queta Fritz MD Unavailable [phone] Queta Fritz MD Unavailable [phone] Reason for Visit Reason Onset Date Comments ER F/U 11/16/2014 Encounter Details Date Type Department Care Team Description 11/16/2014 Telephone [facility] Christopher Fritz, ER F/U Krystle CORLEY [address] [place] [phone] [place], [place] [phone] (Wo rk) Social History Tobacco Use Types [...] do you attend episcopalian or Never 2018 worship services? 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 She is doing fine. They went to Ortho today. Ortho advised to f/u in 12 days with them. No questions/concerns. Telephone Encounter - Leti Holder - 11/16/2014 9:41 AM CDT ED follow up for laceration of wrist, right, with tendon involvement ER & IP documented in this encounter Plan of Treatment Not on filedocumented as of this encounter Visit Diagnoses Not on filedocumented in this encounter Care Teams Corporate Account Executive Relationship Specialty Start Date End Date Queta Fritz MD PCP - General Pediatrics 11/15/14 12/18/15 [address] [phone] Queta Fritz MD PCP - Assigned PCP 03/04/14 09/20/18 [address] [id number] Queta Fritz MD Assigned PCP 03/04/14 04/12/[address] [place] [address] documented as of this encounter
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
--- OUTSIDE RECORDS SUMMARY | 2022-04-23 23:50 | XMS_ITS | Encounter Summary ---
:2002 Author Organization [place] Address [address] [place] [address] Care Team Providers Name Role Phone Queta Fritz MD Primary Care Provider [phone] Queta Fritz MD Unavailable Queta Fritz MD Unavailable [phone] Encounter Details Date Type Department Care Team Description 02/11/2015 Office Visit [facility] Rochelle Ivey, Adjustm ent disorder Services [facility] [place] with mixed [facility] COUNSELING disturbance of [address] emotions and conduct [place], [place] [address] (Primary Dx) [id number] [place] [address] (Wo rk) Social History Tobacco [...] do you attend zoroastrian or Never 2018 presybeterian services? 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 Less reactive, fewer episodes of aggressive behaviors. Less argumentative as well. Mood reported as upbeat. Homework: Achieved / completed to satisfaction Episode of Care Goals: Satisfactory progress - ACTION (Actively working towards change); Intervenedby reinforcing change plan / affirming steps taken Current / Ongoing Stressors and Concerns: Met with client for a return visit. Client reported that she has been doing well. She reported thatshe has been ignoring her brother's provocation. Client mentioned one incident in which it was difficult for her to ignore her brother but she mentioned that she tried. Discussed what could have helpedclient during the situation but client reported that she did not have the option of leaving or removing herself from the situation. Commended client for attempting to manage the conflict appropriately.Also reminded client to consider using her calming down techniques to keep her anger at bay when being provoked. Met with client's mother who shared that she filed the paperwork for divorce. Client 's sought help with telling client about the divorce. Recommended that client's parents tell the client about the divorce together. Screwdown Operator advised that process description writer could be available to help client with talking about her reaction to the news of the divorce within a day or so of being told. Talked with client's mother about keeping the news free from pointing blame at one another. It was also recommended that client's parents keep the conversation age appropriate and not go into specific details about the reason for the divorce. Lastly, client's mother was encouraged to keep the focus of the conversation on helping the c lient cope with the knowledge of the divorce. Treatment Objective(s) Addressed in This Session: identify patterns of escalation (i.e. tightness in chest, flushed face, increased heart rate, clenched hands, etc.) identify at least six techniques for intervening on the escalation Intervention: CBT: Discussed how client reacts to her brother's provocation. Discussed coping strategies and deescalation approaches to use when getting upset and not be able to remove self from the conflict. ASSESSMENT: Current Emotional / Mental Status [...] Appearance: Appropriate Eye Contact: Fair Psychomotor Behavior: Normal Attitude: Cooperative Sociable Orientation: All Speech Rate / Production: Normal Volume: Normal Mood: Normal Affect: Appropriate Bright Tearful Thought Content: Clear Thought Form: Coherent Logical Insight: Poor Medication Review: No changes to current psychiatric medication(s) Medication Compliance: Yes Changes in Health Issues: None reported Chemical Use Review: Substance Use: Chemical use reviewed, no active concerns identified Tobacco Use: No current tobacco use. Collateral Reports Completed: Not Applicable PLAN: (Client Tasks / Therapist Tasks / Other) Client will implement using self calming strategies discussed in today's session to deal with conflict. 

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
--- OUTSIDE RECORDS SUMMARY | 2022-04-23 23:50 | XMS_ITS | Encounter Summary ---
:2002 Author Organization [facility] Address [address] [place] [address] Care Team Providers Name Role Phone Queta Fritz MD Primary Care Provider [phone] Queta Fritz MD Unavailable [phone] Queta Fritz MD Unavailable [phone] Encounter Details Date Type Department Care Team Description 03/19/[address] [facility] Rochelle Ivey, Adjustm ent disorder Services [facility] with mixed [facility] COUNSELING disturbance of [address] emotions and conduct [place], [place] [address] (Primary Dx) [phone] [place] [address] (Wo rk) Social History Tobacco [...] do you attend alevism or Never 2018 adventism services? 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 Homework: Achieved / completed to satisfaction - Client completed a dry run on a bike of the route back home from school but has not determined if she still wants to ride her bike or take the bus. Episode of Care Goals: Satisfactory progress - ACTION (Actively working towards change); Intervenedby reinforcing change plan / affirming steps taken Current / Ongoing Stressors and Concerns: Met with client for a return visit. Client reported that she has been doing well over the past two weeks. Client was focused on her upcoming birthday and spent some time discussing what she planned todo for her birthday. Client starts school next week and there is still some concern about client's willingness to take the bus home from school. Client still opposed to the bus if a certain classmate rides the same bus. Discussed options like headphones, talking to a friend to help with distraction. Treatment Objective(s) Addressed in This Session: identify patterns of escalation (i.e. tightness in chest, flushed face, increased heart rate, clenched hands, etc.) identify at least six techniques for intervening on the escalation Intervention: Presented client with information about the anger cycle. Discussed options for managing her anger and identified fied which of the options client would be willing to use. ASSESSMENT: Current Emotional / Mental Status (status [...] Normal Volume: Loud Mood: Normal Affect: Appropriate Thought Content: Rumination Thought Form: Coherent Logical Insight: Fair Medication [...] documented in this encounter Care Teams Dry House Attendant Relationship Specialty Start Date End Date Queta Fritz MD PCP - General Pediatrics 11/15/14 12/18/[address] [place] [id number] Queta Fritz MD PCP - Assigned PCP 03/04/14 09/20/[address] [place] [address] Queta Fritz MD Assigned PCP 03/04/14 04/12/[address] [place] [address] documented as of this encounter
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
--- OUTSIDE RECORDS SUMMARY | 2022-04-23 23:50 | XMS_ITS | Encounter Summary ---
:2002 Author Organization [facility] Address [address] [place] [address] Care Team Providers Name Role Phone Queta Fritz MD Primary Care Provider [phone] Queta Fritz MD Unavailable Queta Fritz MD Unavailable [phone] Encounter Details Date Type Department Care Team Description 05/29/[address] [facility] Rochelle Ivey, Adjustm ent disorder Services [facility] with mixed [facility] COUNSELING disturbance of [address] emotions and conduct [place], [place] [address] (Primary Dx) [phone] [place] [address] (Wo rk) Social History Tobacco [...] do you attend episcopal or Never 2018 jehovah's witness services? 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 documented as of this encounter Progress Notes Rochelle Ivey, CHILDREN'S LITERATURE PROFESSOR - 06/09/2015 7:12 PM CST Progress Note Client Name: Mahi Faye Date: 05/29/2015 Service Type: Individual Session Start Time: 4:00 pm Session End Time: 5:00 pm Session Length: 60 minutes Session #: 12 Attendees: Client and Mother for the last three minutes of session Treatment Plan Last Reviewed: 04/29/2015 DATA Progress Since Last Session (Related to Symptoms / Goals / Homework): Symptoms: Symptoms and associated behaviors reported included bickering, splitting of parents, relationship difficulties, low frustration tolerance and argumentative. Homework: Partially completed Episode of Care Goals: Satisfactory progress - PREPARATION (Decided to change - [...] the last ten minutes of the session. Interpreter And Translator informed that client's father will be moving into a residential and may move out this Wednesday. Client is aware that father will be moving out but does not know how soon. Talked with client individually about how she felt about her father moving out. Client stated that it did not bother her that her father was moving out. She added that she and her mother and brother would be moving to a smaller place. She expressed some sadness about having to move herself but seemed positive about it. Treatment Objective(s) Addressed in This Session: identify patterns of escalation (i.e. tightness in chest, flushed face, increased heart rate, clenched hands, etc.) identify at least six techniques for intervening on the escalation Fewer incidents of aggression or anger reported by client. Intervention: Motivational Interviewing: Spent some time providing client with support and encouragement to voiceand talk about client's feelings regarding her parents divorce. Provided client [...] her feelings. - Client will continue to practice using her calming and coping strategies twice a day to manage herreaction to provocations. 

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
[2022-04-23 23:51] LABS: Albumin* 4.5 g/dL (3.3-5.0); Chloride* 105 mmol/L (96-114); Potassium* 3.8 mmol/L (3.6-5.1); Sodium* 139 mmol/L (135-149)
--- OUTSIDE RECORDS SUMMARY | 2022-04-23 23:51 | XMS_ITS | Encounter Summary ---
:2000 Author Organization [facility] Address [address] [place] [address] Care Team Providers Name Role Phone Darby Harp MD Primary Care Provider [phone] Reason for Visit Reason Comments Well Child 13 year Encounter Details Date Type Department Care Team Description 01/18/2014 Office Visit [facility] Queta Fritz or child health check (Primary Dx); Clinic Krystle De Jesus MD Esophageal reflux; [address] Loss of weight; [place] [address] Nausea; [place], [place] Learning di sability; [id number] Chromosomal abnormality [phone] (Wo rk) Social History Tobacco Use Types [...] do you attend buddhist or Never 2018 yazdanism services? 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 Last Filed Vital Signs Vital Sign Reading Time Taken Comments Blood Pressure 92/60 01/18/2014 4:17 PM CDT Pulse - - Temperature 37.1 ??C (98.7 ??F) 01/18/2014 4:17 PM CDT Respiratory Rate - - Oxygen Saturation - - Inhaled Oxygen Concentration - - Weight 37.6 kg (83 lb) 01/18/2014 4:17 PM CDT Height 157.5 cm (5' 2) 01/18/2014 4:17 PM CDT Body Mass Index 15.18 01/18/2014 4:17 PM CDT Body Mass Index Percentile 8.77 % 01/18/2014 4:17 PM CD T Growth Chart: CDC (Girls, 2-20 Years) documented in this encounter Patient Instructions Patient InstructionsNeema Sutherland LPN - 01/18/2014 4:09 PM CDT Preventive Care at the 9-11 Year Visit Growth Percentiles & Measurements Weight: 83 lbs 0 oz / 37.65 kg / 34%ile based on CDC 2-20 Years [id number]-[id number] data using vitals from 01/18/2014. Length: 5' 2 / 157.5 cm 85%ile based on CDC 2-20 Years [id number] data using vitals from 01/18/2014. BMI: Body mass index is 15.18 kg/(m^2). 9%ile based on CDC 2-20 Years BMI-for-age data using vitals from 01/18/2014. Blood Pressure: 6.8% systolic and 36.8% diastolic of BP percentile by age, sex, and height. Pediasure 16 oz a day on top of the calories she has been able to eat. Take the omeprazole every day. Try kathy for the nausea/ anxiety about eating. [employer] can give advice on dosing. Books: Be the Boss of your worries by Heladio Mccarty. Local resources: [facility] in [place] [phone] Full service clinic with a wide variety of Complementary and Alternative Medicine (CAM) options as well as conventional treatment by a well known behavioral health director. Return in 1 month. Development ?? Friendships will become more important. Peer pressure may begin. ?? Set up a routine for talking about school and doing homework. ?? Limit your child to 1 to 2 hours of quality screen time each day. Screen time includes television, video game and computer use. Watch TV with your child and supervise Internet use. ?? Spend at least 15 minutes a day reading to or reading with your child. ?? Teach your child respect for property and other people. ?? Give your child opportunities for independence within set boundaries. Diet ?? Children ages 9 to 11 need 2,000 calories each day. ?? Between ages 9 to 11 years, your child???s bones are growing their fastest. To help build strong and healthy bones, your child needs 1,300 milligrams (mg) of calcium each day. she can get this requirement by drinking 3 cups of low-fat or fat-free milk, plus servings of other foods high in calcium (such as yogurt, cheese, orange juice with added calcium, broccoli and almonds). ?? Until age 8 your child needs 10 mg of iron each day. Between ages 9 and 13, your child needs 8 mgof iron a day. Lean beef, iron-fortified cereal, oatmeal, soybeans, spinach and tofu are good sources of iron. ?? Your child needs 600 IU/day vitamin D which is most easily obtained in a multivitamin or Vitamin D supplement. ?? Help your child choose fiber-rich fruits, vegetables and whole grains. Choose and prepare foods and beverages with little added sugars or sweeteners. ?? Offer your child nutritious snacks like fruits or vegetables. Remember, snacks are not an essential part of the daily diet and do add to the total calories consumed each day. A single piece of fruitshould be an adequate snack for when your child returns home from school. Be careful. Do not over feed your child. Avoid foods high in sugar or fat. ?? Let your child help select good choices at the grocery store, help plan and prepare meals, and help clean up. Always supervise any kitchen activity. ?? Limit soft drinks and sweetened beverages (including juice) to no more than one a day. ?? Limit sweets, treats and snack foods (such as chips), fast foods and fried foods. Exercise ?? The [place] [employer] recommends children get 60 minutes of moderate to vigorous physical activity each day. This time can be divided into chunks: 30 minutes physical education in school, 10 minutes playing catch, and a 20-minute family walk. ?? In addition to helping build strong bones and muscles, regular exercise can reduce risks of certain diseases, reduce stress levels, increase self-esteem, help maintain a healthy weight, improve concentration, and help maintain good cholesterol levels. ?? Be sure your child wears the right safety gear for his or her activities, such as a helmet, mouthguard, knee pads, eye protection or life vest. ?? Check bicycles and other sports equipment regularly for needed repairs. Sleep ?? Children ages 9 to 11 need at least 9 hours of sleep each night on a regular basis. ?? Help your child get into a sleep routine: washing@ face, brushing teeth, etc. ?? Set a regular time to go to bed and wake up at the same time each day. Teach your child to get upwhen called or when the alarm goes off. ?? Avoid regular exercise, heavy meals and caffeine right before bed. ?? Avoid noise and bright rooms. ?? Your child should not have a television in her bedroom. It leads to poor sleep habits and increased obesity. Safety ?? When riding in a car, your child needs to be buckled in the back seat. Children should not sit inthe front seat until 13 years of age or older. (she may still need a booster seat). Be sure all other adults and children are buckled as well. ?? Do not let anyone smoke in your home or around your child. ?? Practice home fire drills and fire safety. ?? Supervise your child when she plays outside. Teach your child what to do if a stranger comes up to her. Warn your child never to go with a stranger or accept anything from a stranger. Teach your child to say ???NO?? and tell an adult she trusts. ?? Enroll your child in swimming lessons, if appropriate. Teach your child water safety. Make sure your child is always supervised whenever around a pool, recio, or river. ?? Teach your child animal safety. ?? Teach your child how to dial and use 911. ?? Keep all guns out of your child???s reach. Keep guns and ammunition locked up in different parts of the house. Self-esteem ?? Provide support, attention and enthusiasm for your child???s abilities, achievements and friends. ?? Support your child???s school activities. ?? Let your child try new skills (such as school or community activities). ?? Have a reward system with consistent expectations. Do not use food as a reward. Discipline ?? Teach your child consequences for unacceptable or inappropriate behavior. Talk about your family???s values and morals and what is right and wrong. ?? Use discipline to teach, not punish. Be fair and consistent with discipline. Dental Care ?? The second set of molars comes in between ages 11 and 14. Ask the dentist about sealants (plasticcoatings applied on the chewing surfaces of the back molars). ?? Make regular dental appointments for cleanings and checkups. Eye Care ?? If you or your pediatric provider has concerns, make eye checkups at least every 2 years. An eye test will be part of the regular well checkups. documented in this encounter Progress Notes Queta Fritz MD - 01/18/2014 4:09 PM CDT SUBJECTIVE: Mahi Faye is a 13 year old female, here for a routine health maintenance visit, accompanied by her mother. Patient was roomed by: .NEEMA SUTHERLAND LPN QUESTIONS/CONCERNS: stomach issues not eating well onset x 6 months. She has a developmental delay. She is worried about vomiting and is unable to eat secondary to this. There is a lot of stress in thefamily as father's health is deterioating. He has ALS. The family moved to this area to be closer tofamily and in a home that is handicap Accessible. FAMILY/SOCIAL HISTORY Child lives with: mother, father and brother Who takes care of your child: school Language(s) spoken at home: Norwegian Recent family changes/social stressors: parent has ALS and is in a wheelchair, SAFETY Is your child around anyone who smokes: No TB exposure: No Does your child always wear a seat belt? Yes Helmet worn for bicycle/roller blades/skateboard? Yes Home Safety Survey: ?? Guns/firearms in the home:yes Is your child ever at home alone: No Do you monitor your child's screen use? Yes VISION No concerns HEARING check ears for wax DENTAL Dental health HIGH risk factors: none Water source: city water No sports physical needed. DAILY ACTIVITIES DIET AND EXERCISE Does your child get at least 4 helpings of a fruit or vegetable every day: NO Does your child eat breakfast every day: NO What does your child drink besides milk and water (and how much?): Does your family sit down and eat at least 3 meals together per week: Yes Does your family eat out (take out, delivery, fast food, restaurant) more than one day per week: YES Does your child get at least 60 minutes per day of active play, including time in and out of school:Yes Dairy/ calcium: 2 servings daily SLEEP: No concerns, sleeps well through night ELIMINATION Normal bowel movements and Normal urination ACTIVITIES: Age appropriate activities EDUCATION Concerns: yes-dev delay and entering a new school in the fall due to the move. Patient Active Problem List Diagnosis ??? Chromosomal Abnormality ??? Learning Disability Allergies Allergen Reactions ??? Nkda (No Known Drug Allergies) Immunization History Administered Date(s) Administered ??? Comvax (HIB/HepB) 2002, 2002, 03/26/2003 ? ? DTAP (<7y) 2002, 2002, 2002, 09/24/2003, 03/29/2007 ??? Hepatitis A 03/30/2006, 09/27/2006 ??? IPV 2002, 2002, 2002, 03/29/2007 ??? Influenza (H1N1) 07/03/2009 ??? Influenza (IIV3) 05/22/2008, 06/10/2009, 04/11/2010, 05/04/2011 ??? Influenza Intranasal Vaccine 05/03/2012 ??? Influenza Intranasal Vaccine 4 valent 05/05/2013 ??? MMR 03/26/2003, 03/29/2007 ??? Pneumococcal (PCV 13) 06/02/2011 ??? Pneumococcal (PCV 7) 2002, 2002, 2002 ??? Varicella 03/26/2003, 03/29/2007 HEALTH HISTORY SINCE LAST VISIT New patient with prior care at [facility] Screening: No screening tool used Concerned about the nausea and anxiety surrounding food and the potential cause of this. ROS GENERAL: See health history, nutrition and daily activities SKIN: No rash, hives or significant lesions HEENT: Hearing/vision: see above. No eye, nasal, ear symptoms. RESP: No cough or other concerns CV: No concerns GI: See nutrition and elimination. No concerns. : See elimination. No concerns NEURO: No headaches or concerns. OBJECTIVE: EXAM BP 92/60 Temp(Src) 98.7 ??F (37.1 ??C) (Oral) Ht 5' 2 (1.575 m) Wt 83 lb (37.649 kg) BMI 15.18 kg/m2 85%ile based on CDC 2-20 Years nsjfzgk-[id number] data using vitals from 01/18/2014. 34%ile based on CDC 2-20 Years helcyf-jrj-rkh data using vitals from 01/18/2014. 9%ile based on CDC 2-20 Years BMI-for-age data using vitals from 01/18/2014. 6.8% systolic and 36.8% diastolic of BP percentile by age, sex, and height. GENERAL: Active, alert, in no acute distress. SKIN: Clear. No significant rash, abnormal pigmentation or lesions HEAD: Normocephalic EYES: Sharp optic discs. Pupils [...] motion, no deformities -F: Normal female external genitalia. BREASTS: No abnormalities. ASSESSMENT/PLAN: Encounter Diagnoses Name Primary? Routine or child health check Yes ??? Esophageal reflux ??? Loss of weight Anticipatory Guidance The following topics were discussed: SOCIAL/ FAMILY: Praise for positive activities Friends NUTRITION: HEALTH/ SAFETY: Physical activity Booster seat/ Seat belts Preventive Care Plan Immunizations ?? See orders in EpicCare. Counseling provided regarding the benefits and risks related to the vaccines ordered today. I reviewed the signs and symptoms of adverse effects and when to seek medical careif they should arise. Referrals/Ongoing Specialty care: No See other orders in EpicCare. Dental visit recommended: Yes BMI at 9%ile based on CDC 2-20 Years BMI-for-age data using vitals from 01/18/2014. Recent significantloss of weight. Discussed the differential diagnosis of her weight loss. The nausea and the refusal to eat are both likely due to anxiety. It is reasonable to treat with a PPI for the increase in stress as well as thepossibility that GERD is playing a role in her symptoms. Pediasure 16 oz a day on top of the calories she has been able to eat. Take the omeprazole every day. Try kathy for the nausea/ anxiety about eating. [employer] can give advice on dosing. Books: Be the Boss of your worries by Heladio Mccarty. Consider appointment with [facility] in [place] [phone] Full service clinic with a wide variety of Complementary and Alternative Medicine (CAM) options as well as conventional treatment by a well known behavioral health director. Return in 1 month for a follow up on the weight loss. I spent an extra 15 min on noted acute/chronic problems for which at least half of this was spent indirect counselling of the patient. FOLLOW-UP: in 1 year for a Preventive Care visit Queta Fritz MD, MD [facility] documented in this encounter Nursing Notes Neema Sutherland LPN - 01/18/2014 4:19 PM CDT . Chief Complaint Patient presents with ??? Well Child 13 year initial BP 92/60 Temp(Src) 98.7 ??F (37.1 ??C) (Oral) Ht 5' 2 (1.575 m) Wt 83 lb (37.649 kg) BMI 15.18 kg/m2 Estimated body mass index is 15.18 kg/(m^2) as calculated from the following: Height as of this encounter: 5' 2 (1.575 m). Weight as of this encounter: 83 lb (37.649 kg).. 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
--- OUTSIDE RECORDS SUMMARY | 2022-04-23 23:51 | XMS_ITS | Encounter Summary ---
:2002 Author Organization [facility] Address [address] [place] [address] Care Team Providers Name Role Phone Darby Harp MD Primary Care Provider Queta Fritz MD Unavailable [phone] Queta Fritz MD Unavailable [phone] Encounter Details Date Type Department Care Team Description 05/04/2014 Telephone [facility] Nurse Erica Simmons, RN [facility]visors [address] [place] [address] Social History Tobacco Use Types Packs/Day [...] do you attend restoration or Never 2018 latter-day services? 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 Mom had looked at area with a magnifying glass and sees nothing. Does not think it was a tick bite. Denies fever, stiff neck ,joint pain, redness or any other sx at this time. Triaged per Insect bite/peds. Gave home care advice and sx to watch for. Call back if needed Triage Note: Guideline Title: Insect Bite (Pediatric) Recommended Disposition: Provide Home/Self Care Original Inclination: Wanted to speak with a nurse Override Disposition: Intended Action: Follow advice given Physician Contacted: No Painful insect bite (all triage questions negative) ? YES Child sounds very sick or weak to the triager ? NO Difficulty breathing or wheezing ? NO Sounds like a life-threatening emergency to the triager ? NO Mosquito bite ? NO Itchy insect bite (all triage questions negative) ? NO Unresponsive, passed out or very weak ? NO [1] Scab is present AND [2] it drains pus or increases in size ? NO [1] SEVERE local itching (interferes with normal activities) AND [2] not improved after 24 hours of hydrocortisone cream ? NO Doesn't sound like an insect bite ? NO [1] Difficulty swallowing, drooling or slurred speech AND [2] sudden onset following bite ? NO [1] Fever AND [2] spreading red area or streak ? NO [1] Hoarseness or cough AND [2] sudden onset following bite ? NO [1] Life-threatening reaction (anaphylaxis) in the past to same insect bite AND [2] < 2 hours since bite ? NO [1] Over 48 hours since the bite AND [2] redness now becoming larger ? NO [1] Painful bite AND [2] not improved after 24 hours of pain medicine ? NO [1] Painful spreading redness AND [2] started over 24 hours after the bite AND [3] NO fever ? NO [1] Widespread hives, widespread itching or facial swelling AND [2] no other serious symptoms AND [3] no serious allergic reaction in the past ? NO Bed bug bite(s) ? NO Confused thinking or talking ? NO Fire ant sting ? NO [1] Scab is present AND [2] it drains pus or increases in size AND [3] not improved after applying antibiotic ointment for 2 days ? NO Bee sting ? NO Spider bite ? NO Tick bite ? NO Physician Instructions: Care Advice: HOME CARE: You should be able to treat this at home. CARE ADVICE given per Insect Bite (Pediatric) guideline. PAIN MEDICINE: Give acetaminophen or ibuprofen for pain relief (See Dosage table). Antihistamines don't help. CALL BACK IF: * Pain persists over 24 hours of pain medicine * Bite looks infected (painful spreading redness starting after 24 hours) * Redness increases in size after 48 hours * Your child becomes worse PAINFUL INSECT BITES: * Rub the bite for 15 to 20 minutes with a cotton ball soaked in baking soda solution. This will usually reduce the pain. (Caution: don't use near the eye.) * You can also apply an ice cube in a wet washcloth for 20 minutes. REASSURANCE: * It sounds like a normal reaction to an insect bite. * While most insect bites are a small red bump, some are larger (like a hive) and some have a small water blister in the center. * A large hive does not mean your child has an allergy. * The redness does not mean the bite is infected. documented in this encounter Plan of Treatment Not on filedocumented as of this encounter Visit Diagnoses Not on filedocumented in this encounter Care Teams Framework Developer Relationship Specialty Start Date End Date Darby Harp MD PCP - General 03/25/05 11/14/14 [address] [facility] [address] [place] [id number] Queta Fritz MD PCP - Assigned PCP 03/04/14 09/20/18 [address] [place] [id number] Queta Fritz MD Assigned PCP 03/04/14 04/12/21 [address] [place] [id number] documented as of this encounter
--- OUTSIDE RECORDS SUMMARY | 2022-04-23 23:51 | XMS_ITS | Encounter Summary ---
:2000 Author Organization [facility] Address [address] [place] [address] Care Team Providers Name Role Phone Darby Harp MD Primary Care Provider [phone] Reason for Visit Reason Comments Flu Shot Flu Mist Encounter Details Date Type Department Care Team Description 05/05/2013 Allied Health/[facility] Flu Shot (Flu Mist) Visit [address], [address] [place] [address] Social History Tobacco Use Types [...] do you attend orthodox or Never 2018 zoroastrianism services? 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 Is the person to be vaccinated sick today? No 2. Does the person to be vaccinated have an allergy to eggs or to a component of the influenza vaccine? No 3. Has the person to be vaccinated ever had a serious reaction to the intranasal influenza vaccine (FluMist) in the past? No 4. Does the person to be vaccinated have a long-term health problem with heart, disease, lung disease, asthma, kidney disease, neurologic of neuromuscular disease, liver disease, metabolic disease (e.g., diabetes), or anemia or another blood disorder? No 5. If the person to be vaccinated is a child age 2 through 4 years, in the past 12 months, has a healthcare provider ever told you that he or she had wheezing or asthma? No 6. Does the person to be vaccinated have cancer, leukemia, HIV/AIDS, or any other immune system problem; or, in the past 3 months, have they taken medications that weaken the immune system, such as cortisone, prednisone, other steroids, or anticancer drugs; or have they had radiation treatments? No 7. Is the person to be vaccinated receiving antiviral medications? No 8. Is the child or teen to be vaccinated receiving aspirin therapy or aspirin- containing therapy? No 9. Is the person to be vaccinated or could she become within the next month? No 10. Has the person to be vaccinated ever had Guillain-Atwood syndrome? No 11. Does the person to be vaccinated live with or expect to have close contact with a person whose immune system is severely compromised and who must be in protective isolation (e.g., an isolation roomof a bone marrow transplant unit)? No 12. Has the person to be vaccinated received any other vaccinations in the past 4 weeks? No 13. Is the person to be vaccinated between the ages of 2 - 49 years old? Yes Form completed by: Patient's father Form reviewed by: Asia Gomez CMA documented in this encounter Nursing Notes 05/05/2013 1:45 PM CDT >> ASIA GOMEZ Fri May 05, 2013 2:57 PM Flu Mist given. See Immunization section for details. Asia Gomez CMA documented in this encounter Plan of Treatment Not on filedocumented as of this encounter Visit Diagnoses Diagnosis Need for prophylactic vaccination and in oculation against influenza - Primary documented in this encounter Care Teams Material Scheduler Relationship Specialty Start Date End Date Darby Harp MD PCP - General 03/25/05 11/14/[address] [facility] [facility] [place] [id number] documented as of this encounter
--- OUTSIDE RECORDS SUMMARY | 2022-04-23 23:51 | XMS_ITS | Encounter Summary ---
:2000 Author Organization [facility] Address [address] [place] [address] Care Team Providers Name Role Phone Darby Harp MD Primary Care Provider [phone] Reason for Visit Reason Comments Imm/Inj Nasal Flu H1N1 Encounter Details Date Type Department Care Team Description 07/03/2009 Allied Health/Nurse [facility] m/Inj (Nasal Flu Visit [facility] H1N1) [address] [place], [place] [address] Social History Tobacco Use Types Packs/Day Years Used Date Never Smoker Alcohol Use Standard Drinks/Week Comments Not Asked 0 (1 standard drink = 0.6 oz [...] do you attend taoism or Never 2018 yarsanism services? 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 Has the patient received the information for the intranasal influenza vaccine? YES 2. Does the patient have any of the following contraindications: Severe allergy to eggs? No Severe allergic reaction to a previous intranasal influenza vaccine? No Severe allergic reaction to components of intranasal flu vaccine: MSG, arginine, gentamycin or gelatin? No Have a long-term health problem of chronic heart or lung disease, asthma, kidney or liver disease, metabolic disease (e.g. Diabetes), anemia or other blood disorders? No Have a weakened immune system because of HIV/AIDS or another disease that affects the immune system, long-term treatment with drugs such as steroids, or cancer treatment with radiation or drugs? No Live with or expect to have close contact with a person whose immune system is severely compromisedor work with bone marrow transplant or chemotherapy patients? No Have a muscle or nerve disorder, such as a seizure disorders or cerebral palsy, that can lead to breathing or swallowing problems? No A nasal condition serious enough to make breathing difficult, such as a very stuffy nose. No A child between the ages of 2 and 5 years with asthma or one or more episodes of wheezing within the past year? No A child or adolescent on long-term aspirin treatment? No Currently have moderate or severe illness? No Have received a live vaccine (MMR, MMRV, varicella, or yellow fever) within the last 4 weeks? No Have you been on any anti-viral medication within the last 48 hours (for example, Tamiflu)? No 3. Is the patient or planning on becoming within the next month? No 4. Is the patient between the ages of 2 years and 49 years of age? YES 5. The vaccine has been administered and the patient was instructed to wait 15 minutes before leaving the building in the event of an allergic reaction: YES Vaccine given by: /Mimi Chisholm/ARACELY(AAPETRA) ULUS TEACHER documented in this encounter Nursing Notes 07/03/2009 3:00 PM CST >> MIMI CHISHOLM WedJul 03, 2009 2:58 PM Prior to nasal administration verified patient identity using patient's name and date of . Pt./ parent instructed to wait 15 minutes in waiting room after receiving injection and if feeling fine may leave/Serenity/aracely(AACO) documented in this encounter Plan of Treatment Not on filedocumented as of this encounter Visit Diagnoses Diagnosis Need for prophylactic vaccination and in oculation against influenza - Primary documented in this encounter Care Teams Tank Driver Relationship Specialty Start Date End Date Darby Harp MD PCP - General 03/25/05 11/14/14 [address] [place], [place] [address] documented as of this encounter
--- OUTSIDE RECORDS SUMMARY | 2022-04-23 23:51 | XMS_ITS | Encounter Summary ---
:2000 Author Organization [place] Address [address] [place] [address] Care Team Providers Name Role Phone Darby Harp MD Primary Care Provider [phone] Queta Fritz MD Unavailable [phone] Queta Fritz MD Unavailable [phone] Reason for Visit Reason Comments Flu Shot Mist Encounter Details Date Type Department Care Team Description 05/10/2014 Allied Health/Nurse [facility] Flu Shot (Mist) Visit [address], [address] [place] [address] Social History Tobacco Use [...] do you attend presybeterian or Never 2018 voodoo services? 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 [...] he or she had wheezing or asthma? N/A 6. Does the person to be vaccinated [...] the person to be vaccinated ever had Guillain-[place] syndrome? No 11. Does the person to [...] 51 years old? Yes Form completed by: Parent Form reviewed by: May Live RN documented in this encounter Plan of Treatment Not on filedocumented as of this encounter Visit Diagnoses Diagnosis Need for prophylactic vaccination and in oculation against influenza - Primary documented in this encounter Care Teams Meteorologist In Charge Relationship Specialty Start Date End Date Darby Harp MD PCP - General 03/25/05 11/14/[address] [facility] [address] [place], [place] [address] Queta Fritz MD PCP - Assigned PCP 03/04/14 09/20/18 [address] [place] [id number] Queta Fritz MD Assigned PCP 03/04/14 04/12/21 [address] [place] [id number] documented as of this encounter
--- OUTSIDE RECORDS SUMMARY | 2022-04-23 23:51 | XMS_ITS | Encounter Summary ---
:2000 Author Organization [facility] Address [address] [place] [address] Care Team Providers Name Role Phone Darby Harp MD Primary Care Provider [phone] Reason for Visit Reason Comments Fever has been going on for 1 week Nose Problem runny nose Encounter Details Date Type Department Care Team Description 08/27/2010 Office Visit [facility] [place] Fever, uns pecified Clinic [place] Darby Edmonds, (Primary Dx) [address] [facility] [place], [place] [address] [facility] [id number] [place] [address] (Wo rk) Social History Tobacco Use Types Packs/Day Years Used Date Never Smoker Alcohol Use Standard Drinks/Week Comments No 0 [...] do you attend gnosticist or Never 2018 christianity services? 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 encounter Last Filed Vital Signs Vital Sign Reading Time Taken Comments Blood Pressure 98/48 08/27/2010 9:21 AM MIXED CROP AND LIVESTOCK FARMER Pulse 76 08/27/2010 9:21 AM MIXED CROP AND LIVESTOCK FARMER Temperature 36.4 ??C (97.5 ??F) 08/27/2010 9:21 AM MIXED CROP AND LIVESTOCK FARMER Respiratory Rate 18 08/27/2010 9:21 AM MIXED CROP AND LIVESTOCK FARMER Oxygen Saturation - - Inhaled Oxygen Concentration - - Weight 32 kg (70 lb 8 oz) 08/27/2010 9:21 AM MIXED CROP AND LIVESTOCK FARMER Height 137.2 cm (4' 6) 08/27/2010 9:21 AM MIXED CROP AND LIVESTOCK FARMER Body Mass Index 17 08/27/2010 9:21 AM MIXED CROP AND LIVESTOCK FARMER Body Mass Index Percentile 67.79 % 08/27/2010 9:21 AM CS T Growth Chart: CDC (Girls, 2-20 Years) documented in this encounter Progress Notes Darby Harp D - 08/27/2010 10:04 AM CST S: Mahi Faye is a 10 year old female brought in by father who complains of fever and exposure to strep. Her fever is off and on for about 10 days, and she gets the shakes and has a runny nose. She hasn't had a sore throat, but dad does. She is eating less than usual. Denies pain with eating, she did vomit once at school. May have been related to school activity. Temp has been up to 100.5. Ibuprofen brings it down. No abdominal pain, change in stools or urine, pain with urination, or blood. O: Vitals noted. Patient alert, oriented, and in no acute distress. She is smiley and comfortable, cooperative. Ears: Canals clear, TM's nl bilaterally. No erythema or fluid. Oral: Oropharynx nl without erythema, exudate, mass or other lesions. Nares congested without inflammation but significant clear mucous bilaterally. Neck: Supple without lymphadenopathy, JVD or masses. CV: RRR without murmur. Respiratory: Lungs clear to auscultation bilaterally. Abdomen: Soft, nontender, nondistended with good bowel sounds and no masses or hepatosplenomegaly. Extremities warm and dry without cyanosis, clubbing or edema. Skin normal without rashes or lesions. Good color and turgor. Rapid strep negative, culture pending. Ua all clear. A: FEVER, UNSPECIFIED P: We discussed likely nonspecific viral infection, will treat conservatively, push fluids, treat fever, rest. Will notify if positive strep culture. Will f/u if any worsening symptoms or if not improved over the next 3-5 days. Darby Harp MD D CROP AND LIVESTOCK FARMER documented in this encounter Nursing Notes 08/27/2010 9:15 AM CST >> CAESAR CRYSTAL Wed Aug 27, 2010 9:29 AM Estimated Body mass index is 17.00 kg/(m^2) as calculated from the following: Height as of this encounter: 4' 6(1.372 m). Weight as of this encounter: 70 lb 8 oz(31.979 kg). BP Readings from Last 1 Encounters: 08/27/2010 : 98/48] BP cuff size: pediatric Do you feel safe in your environment? Not asked Does the patient need any medication refills today? No Patient presents with: Fever - has been going on for 1 week Nose Problem - runny nose documented in this encounter Plan of Treatment Not on filedocumented as of this encounter Procedures Procedure Name Priority Date/Time Associated Diagnosis Comme nts UA MACROSCOPIC WITH Routine 08/27/2010 10:15 Fever, unspecifie d Results for this REFLEX TO MICRO AM MIXED CROP AND LIVESTOCK FARMER procedure ar e in the results section. RAPID STREP SCREEN Routine 08/27/2010 9:30 AM Fever, unspecifi ed Results for this THROAT SWAB MIXED CROP AND LIVESTOCK FARMER procedure are i n the results section. BETA HEMOLYTIC STREP Routine 08/27/2010 9:30 AM R esults for this GROUP A CULTURE MIXED CROP AND LIVESTOCK FARMER procedure ar e in the results section. documented in this encounter Results UA macroscopic with reflex to micro (08/27/2010 10:15 AM MIXED CROP AND LIVESTOCK FARMER) [facility] Method Time Signature Color Urine Yellow [facility] Appearance Urine Clear [facility] Glucose Urine Negative NEG mg/dL [facility] Bilirubin Urine Negative NEG [facility] Ketones Urine Negative NEG mg/dL [facility] Specific [place] <=1.005 1.003 - [place] Urine 1.035 [facility] Blood Urine Negative NEG [facility] pH Urine 7.0 5.0 - 7.0 [place] pH [facility] Protein Albumin Negative NEG mg/dL [facility] Urobilinogen 0.2 0.2 - 1.0 [place] Urine EU/dL [facility] Nitrite Urine Negative NEG [facility] Leukocyte Negative NEG [place] Esterase Urine [facility] Source Midstream [place] Urine [facility] Specimen Anatomical Collection Method Collection Time Receive d Time (Source) Location / / Volume Laterality Urine specimen 08/27/2010 10:15 1 (specimen) AM MIXED CROP AND LIVESTOCK FARMER 10:16 AM MIXED CROP AND LIVESTOCK FARMER Darby Harp MD LAB - URINE ORDERABLES Performing Organization Address City/State/ZIP Code Phon e Number [address] [place], [place] [address] [facility] Beta strep group A culture (08/27/2010 9:30 AM MIXED CROP AND LIVESTOCK FARMER) Component Value Ref Test Analysis Performed At Patholo gist Range Method Time Signature Specimen Throat [facility] Culture Micro No beta [place] hemolytic [facility] Group A isolated Micro Report FINAL 08/29/2010 [facility] Specimen Anatomical Collection Method Collection Time Receive d Time (Source) Location / / Volume Laterality 08/27/2010 9:30 AM 1 9:46 MIXED CROP AND LIVESTOCK FARMER AM MIXED CROP AND LIVESTOCK FARMER Darby Harp MD LAB - MICRO GENERAL ORD ERABLES Performing Organization Address City/[facility]/ZIP Code Phon e Number [address] [place] [address] [facility] STREP GROUP A ANTIGEN (RAPID) (08/27/2010 9:30 AM MIXED CROP AND LIVESTOCK FARMER) Component Value Ref Test Analysis Performed At Patholo gist Range Method Time Signature Specimen Throat [facility] Rapid Strep A NEGATIVE: No Group A strepto coccal antigen detected by immunoassay, await [place] Screen culture report. [facility] Micro Report FINAL 08/27/2010 [facility] Specimen Anatomical Collection Method Collection Time Receive d Time (Source) Location / / Volume Laterality Specimen from 08/27/2010 9:30 AM 08/27/19 11 9:33 throat MIXED CROP AND LIVESTOCK FARMER AM MIXED CROP AND LIVESTOCK FARMER (specimen) Darby Harp MD LAB - MICRO GENERAL ORD ERABLES Performing Organization Address City/State/ZIP Code Phon e Number [place] [address] [facility] [place] [address] [facility] documented in this encounter Visit Diagnoses Diagnosis Fever, unspecified - Primary documented in this encounter Care Teams Photo Colorer Relationship Specialty Start Date End Date Darby Harp MD PCP - General 03/25/05 11/14/14 [address] [facility] [place] [id number] documented as of this encounter
--- OUTSIDE RECORDS SUMMARY | 2022-04-23 23:51 | XMS_ITS | Encounter Summary ---
:2002 Author Organization [place] Address [address] [place] [address] Care Team Providers Name Role Phone Darby Harp MD Primary Care Provider [phone] Reason for Visit Reason Onset Date Comments Call To Schedule Appointment 02/26/2014 Encounter Details Date Type Department Care Team Description 02/26/2014 Telephone [facility] Queta Fritz Call To Schedule Clinic Krystle De Jesus MD Appointment [address] [place], [place] [address] [place], [place] [address] (Wo rk) Social History Tobacco Use Types [...] do you attend jewish or Never 2018 temple services? 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 Dixie Arriola RN Telephone Encounter - Sarai Hanna RN - 02/26/2014 3:29 PM CDT Left message for parent to call back. Telephone Encounter - Queta Fritz MD - 02/26/2014 7:06 AM CDT pls call. Mahi is due for follow up of her significant weight loss. documented in this encounter Plan of Treatment Not on filedocumented as of this encounter Visit Diagnoses Not on filedocumented in this encounter Care Teams Water Sander Relationship Specialty Start Date End Date Darby Harp MD PCP - General 03/25/05 11/14/14 [address] [facility] [place] [id number] documented as of this encounter
--- OUTSIDE RECORDS SUMMARY | 2022-04-23 23:51 | XMS_ITS | Encounter Summary ---
:2000 Author Organization [place] Address [address] [place] [address] Care Team Providers Name Role Phone Darby Harp MD Primary Care Provider [phone] Reason for Visit Reason Onset Date Comments Cold Symptoms 09/03/2010 call, symptoms Nurse Advice Line 09/03/2010 cold symptoms Encounter Details Date Type Department Care Team Description 09/03/2010 Telephone [facility] Darby Harp Co ld Symptoms (call, Clinic Pollo Edmonds MD symptoms); Nurse [address] Advice Line (cold [place], [place] [address] symptoms) [address] [phone] Social History Tobacco Use Types Packs/Day Years [...] do you attend taoism or Never 2018 uatsdin services? 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 States he is unsure of which ear is hurting her. States ear pain started yesterday, states school nurse says the ears look red. Patient was seen 08/27/10 for strep test, fevers, and runny nose. Strep was negative, fevers are gone, but runny nose remains. Denies cough. Patient has had no medications today for ear pain. Parent states patient has wax build-up in both ears. NURSING ASSESSMENT Description: Ear pain and runny nose Onset/duration: Ear pain started yesterday Precip. factors: Has been ill recently with sore throat and fevers Assoc. Sx: See above Improves/worsens Sx: Onset yesterday; patient going home ill from school today for ear pain Pain scale (1-10) Patient not present to rate pain I & O/eating: Unsure due to patient still being at school Activity: Unsure due to patient still being at school Temp.: No fevers anymore. Weight: Not asked Allergies: Allergies Allergen Reactions ??? Nkda (No Known Drug Allergies) Sx specific meds: none Last exam/Tx: Was seen 08/27/[address] Harp Contact Phone Number: Home number on file RECOMMENDED DISPOSITION: Home care advice for earache, drainage. Per Dr. Harp, patient should have ears looked at by a provider; she is happy to work patient into schedule. Parent aware and willbe there in five minutes. Will comply with recommendation: YES, states understanding and agrees with plan If further questions/concerns or if Sx do not improve, worsen or new Sx develop, call your PCP or [facility] as soon as possible. NOTES: Disposition was determined by the first positive assessment question, therefore all previous assessment questions were negative. Informed to check provider manual or call insurance company to assure coverage. Guideline used: earache, drainage Telephone Triage Protocols for Nurses, Third Edition, Jeimy Sadler RN DRAFTER Telephone Encounter - Delaney Ro - 09/03/2010 2:18 PM CST This is from Dr. Harp note: P: We discussed likely nonspecific viral infection, will treat conservatively, push fluids, treat fever, rest. Will notify if positive strep culture. Will f/u if any worsening symptoms or if not improved over the next 3-5 days. Darby Harp MD DRAFTER Telephone Encounter - Eram Mcfarland - 09/03/2010 2:12 PM CST [facility] phone call message- patient reporting a symptom: Symptom or request: ear ache & redness, runny nose Additional comments: father was not sure which ear hurts. Child is at school. Father asked if they could get on a medication. They use the [facility] pharmacy in [place]. Please advise Call taken on 09/03/2010 at 2:11 PM by Erma Mcfarland DRAFTER documented in this encounter Plan of Treatment Not on filedocumented as of this encounter Visit Diagnoses Not on filedocumented in this encounter Care Teams Preparation Operator Relationship Specialty Start Date End Date Darby Harp MD PCP - General 03/25/05 11/14/[address] [place] [address] [place] [id number] documented as of this encounter
--- OUTSIDE RECORDS SUMMARY | 2022-04-23 23:51 | XMS_ITS | Encounter Summary ---
:2000 Author Organization [place] Address [address] [place] [address] Care Team Providers Name Role Phone Darby Harp MD Primary Care Provider [phone] Reason for Visit Reason Comments Flu Shot Encounter Details Date Type Department Care Team Description 04/11/2010 Allied Health/Nurse [facility] Flu Shot Visit Clinic [address] [place], [place] [id number] Social History Tobacco Use Types Packs/Day Years [...] or relatives? How often do you attend catholic or Never 2018 restoration services? 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 Symptoms of weakness, SOB, respiratory changes, rash, chest pain report to medical person right away. Information sheet given. documented in this encounter Progress Notes Tamika Agrawal - 04/11/2010 3:24 PM CDT Injectable Influenza Immunization Documentation 1. Has the patient received the information for the injectable influenza vaccine? YES 2. Is the patient 6 months of age or older? YES 3. Does the patient have any of the following contraindications? Severe allergy to eggs? No Severe allergic reaction to previous influenza vaccines? No Allergy to contact lens solution/thimerosol? No History of Guillain-[place] syndrome? No Currently have moderate or severe illness? No 4. The vaccine has been administered and the patient was instructed to wait 15 minutes before leaving the building in the event of an allergic reaction: YES Vaccination given by Patricia Agrawal SAMPLE FINISHER HPI ROS Physical Exam documented in this encounter Nursing Notes 04/11/2010 3:30 PM CDT >> TAMIKA AGRAWAL Fri Apr 11, 2010 3:25 PM Prior to injection verified patient identity using patient's name and date of . documented in this encounter Plan of Treatment Not on filedocumented as of this encounter Visit Diagnoses Diagnosis Need for prophylactic vaccination and in oculation against influenza - Primary documented in this encounter Care Teams Retail Special Event Associate Relationship Specialty Start Date End Date Draby Harp MD PCP - General 03/25/05 11/14/[address] [facility] [address] [place], [place] [address] documented as of this encounter
--- OUTSIDE RECORDS SUMMARY | 2022-04-23 23:51 | XMS_ITS | Encounter Summary ---
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
--- OUTSIDE RECORDS SUMMARY | 2022-04-23 23:51 | XMS_ITS | Encounter Summary ---
:2002 Author Organization [facility] Address [address] [place] [address] Care Team Providers Name Role Phone Darby Harp MD Primary Care Provider [phone] Reason for Visit Reason Comments Otalgia Right ear pain Encounter Details Date Type Department Care Team Description 09/03/2010 Office Visit [facility] [place], Marielos otit is media [facility] [place] Darby Edmonds, (Primary Dx) [address] [facility] [place], [place] [address] [facility] [id number] [place], [place] [id number] (Wo rk) Social History Tobacco Use Types [...] do you attend jew or Never 2018 gnosticist services? 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 documented as of this encounter Last Filed Vital Signs Vital Sign Reading Time Taken Comments Blood Pressure 90/72 09/03/2010 3:32 PM HOOP CUTTER Pulse 88 09/03/2010 3:32 PM HOOP CUTTER Temperature 37.2 ??C (99 ??F) 09/03/2010 3:32 PM HOOP CUTTER Respiratory Rate 16 09/03/2010 3:32 PM HOOP CUTTER Oxygen Saturation - - Inhaled Oxygen Concentration - - Weight 31.8 kg (70 lb) 09/03/2010 3:32 PM HOOP CUTTER Height - - Body Mass Index - - documented in this encounter Progress Notes Darby Harp - 09/04/2010 5:48 PM CST S: Mahi Faye is a 10 year old female brought in by father who complains of right ear pain today. She was recently in with fever and exposure to strep, but had negative strep test. Her fever hasresolved, but today she complained of ear pain. Apparently started yesterday, school nurse thought ear looked red today but was blocked by wax, they stopped and picked up some wax removal drops. Still has runny nose. O: Vitals noted. Patient alert, content, and in no acute distress. Right canal had small amount of flaky wax, easily removed with curette but it hurt her. Right TM is red and bulging. Left canal clear and TM normal. Oral: Oropharynx nl without erythema, exudate, mass or other lesions. Neck: Supple without lymphadenopathy, JVD or masses. CV: RRR without murmur. Respiratory: Lungs clear to auscultationbilaterally. No facial pain to palpation. Abdomen: Soft, nontender, nondistended with good bowel sounds and no masses or hepatosplenomegaly. A: Right otitis media. P: See orders for amoxicillin. Dad requested bid dosing if possible to avoid school dose. Discussed supportive cares at length. Push fluids, rest. Treat pain, fever with ibuprofen and/or tylenol prn. F/u if not improved after treatment or sooner with any worsening. Darby Harp MD CUTTER documented in this encounter Nursing Notes 09/03/2010 3:00 PM CST >> XIANG CARRILLO Wed Sep 03, 2010 3:33 PM Estimated Body mass index is 16.88 kg/(m^2) as calculated from the following: Height as of 08/27/10: 4' 6(1.372 m). Weight as of this encounter: 70 lb(31.752 kg). BP Readings from Last 1 Encounters: 08/27/2010 : 98/48] BP cuff size: NA (Not Taken) Do you feel safe in your environment? Not asked Does the patient need any medication refills today? no Patient here with parent for right ear pain. Onset yesterday. documented in this encounter Plan of Treatment Not on filedocumented as of this encounter Visit Diagnoses Diagnosis Acute otitis media - Primary Unspecified otitis media documented in this encounter Care Teams Ict Support And Test Engineers Relationship Specialty Start Date End Date Darby Harp MD PCP - General 03/25/05 11/14/14 [address] [facility] [place] [address] documented as of this encounter
--- OUTSIDE RECORDS SUMMARY | 2022-04-23 23:51 | XMS_ITS | Encounter Summary ---
:2002 Author Organization [facility] Address [address] [place] [address] Care Team Providers Name Role Phone Darby Harp MD Primary Care Provider [phone] Reason for Visit Reason Comments Well Child 10 year well child exam Encounter Details Date Type Department Care Team Description 06/13/2010 Office Visit [facility] Routine in katty or child health check (Primary Dx); [facility] [place] Darby Edmonds, Scoliosis of thoracic spine; [address] [facility]; [address] Strep throat; [id number] [place] [address] Chromosomal abnormality [phone] (Wo rk) Social History Tobacco Use Types [...] or relatives? How often do you attend congregational or Never 2018 protestant services? 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 documented as of this encounter Last Filed Vital Signs Vital Sign Reading Time Taken Comments Blood Pressure 106/64 06/13/2010 8:35 AM TRACK REPAIR LABORER Pulse 78 06/13/2010 8:35 AM TRACK REPAIR LABORER Temperature - - Respiratory Rate 18 06/13/2010 8:35 AM TRACK REPAIR LABORER Oxygen Saturation - - Inhaled Oxygen Concentration - - Weight 31.1 kg (68 lb 8 oz) 06/13/2010 8:35 AM TRACK REPAIR LABORER Height 136.4 cm (4' 5.7) 06/13/2010 8:35 AM TRACK REPAIR LABORER Body Mass Index 16.7 06/13/2010 8:35 AM TRACK REPAIR LABORER Body Mass Index Percentile 64.92 % 06/13/2010 8:35 AM CS T Growth Chart: CDC (Girls, 2-20 Years) documented in this encounter Progress Notes Darby Harp - 06/13/2010 8:36 AM CST Mahi Faye is a 10 year old female here for a routine health maintenance visit, accompanied by her mother. QUESTIONS/CONCERNS: Wednesday she stayed home from school because her stomach was bothering her, shedry heaved a little, no real vomiting, then yesterday was better, playing all day with cousins, but then last night started to complain that her mouth hurt again, and was hacking gagging. Then statedher feet hurt, so mom worried about hand foot and mouth disease, but no lesions seen. She ate again last night, did ok. No fever. No bowel changes. 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 NO Booster seat/ seat belt? YES Bike/sport helmet? YES TB exposure? NO Pets in the home? NO Guns/firearms in the home? YES, Trigger locks present? NO (Recommended) Water source: well water and filtered water, has fluoride. DEVELOPMENTAL/Behavioral Screening form: Form not used. Overall her behavior is getting better. She has an IEP at school and it is helpful. She still drools. VISION Glasses worn for testing: NO Right eye: not charted by nurse Left eye: not charted by nurse Both eyes: not charted by nurse HEARING No concerns REQUIRED VITAL SIGNS COMPLETED: yes BP 106/64 Pulse 78 Resp 18 Ht 4' 5.7 (1.364 m) Wt 68 lb 8 oz (31.071 kg) 89.15% of growth percentile based on ffdwpsp-[id number]. 80.68% of growth percentile based on ohdlvi-ygh-vou. No unique date with height and weight on file. 11.22 Staff signature: Krysten Mcnulty MA HEALTH HISTORY SINCE LAST VISIT No surgery, major illness or injury since last physical exam Past Medical History Diagnosis Date ??? 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 Comvax (HIB/HepB) 2002, 2002, 03/26/2003 ? ? DTAP (<7y) 2002, 2002, 2002, 09/24/2003, 03/29/2007 ??? Hepatitis A 03/30/2006, 09/27/2006 ??? IPV 2002, 2002, 2002, 03/29/2007 ??? Influenza 05/22/2008, 06/10/2009, 04/11/2010 ??? Influenza (H1N1) 07/03/2009 ??? MMR 03/26/2003, 03/29/2007 ??? Pneumococcal (PCV 7) 2002, 2002, 2002 ??? Varicella 03/26/2003, 03/29/2007 Allergies Allergen Reactions ??? Nkda (No Known Drug Allergies) DAILY ACTIVITIES NUTRITION: good appetite, eats variety of foods, dairy/ calcium: skim milk, yogurt and cheese, juice, water well water and filtered water, meat, fruits, vegetables and junk food SLEEP No concerns, sleeps well through night, bedtime: 7:30-8:00 pm and hours/night: 10-12 ELIMINATION Normal bowel movements and Normal urination EXERCISE/ RECREATION: Age appropriate activities, Playground and Rides bike (helmet advised) ACTIVITIES: none TV/ MEDIA: 2 hours/ day, parental monitored programs and internet EDUCATION Concerns: no School: [employer] Grade: 2nd School performance / Academic skills: doing well in school with IEP Behavior: no current behavioral concerns in school no current behavioral concerns with adults or other children MENTAL HEALTH No concerns VISION: For details see above, tested but not recorded HEARING: For details see above, normal ROS GENERAL: See health history, nutrition and daily activities SKIN: No rash, hives or significant lesions HEENT: Hearing/vision: see above. No eye redness/discharge, nasal congestion, sneezing, snoring RESP: No cough, wheezing, SOB CV: No cyanosis, palpitations, syncope GI: See nutrition and elimination : See elimination MS: No swelling, arthralgia, weakness, gait problem NEURO: No headaches PSYCH: See development and behavior, or mental health EXAM GENERAL: Alert, well appearing, no distress SKIN: Clear. No significant rash, abnormal pigmentation or lesions HEAD: Normocephalic. EYES: Symmetric light reflex and no eye movement on cover/uncover test. Normal conjunctivae. EARS: Normal canals. Tympanic membranes are normal; presley and translucent. NOSE: Normal without discharge. MOUTH/THROAT: Clear. No oral lesions. Teeth without obvious abnormalities. Her bite is asymmetric, chronic. Whitening of the front teeth NECK: Supple, no masses. No thyromegaly. LYMPH NODES: No adenopathy LUNGS: Clear. No rales, rhonchi, wheezing or retractions HEART: Regular rhythm. Normal S1/S2. No murmurs. Normal pulses. ABDOMEN: Soft, non-tender, not distended, no masses or hepatosplenomegaly. Bowel sounds normal. GENITALIA: Normal female external genitalia. Amadeo stage I, No inguinal herniae are present. EXTREMITIES: Full range of motion, no deformities NEUROLOGIC: No focal findings. Cranial nerves grossly intact: DTR's normal. Normal gait, strength and tone BACK: Her back appears fairly straight. On scoliosis testing her left lumbar paraspinal muscles are slightly more prominent than the right and her left hip is slightly higher than her right, very minimal. Rapid strep positive. ANTICIPATORY GUIDANCE The following topics were discussed: SOCIAL/ FAMILY: Praise for positive activities Encourage reading Limit / supervise TV/ media Friends NUTRITION: Healthy snacks Family meals Balanced diet HEALTH/ SAFETY: Physical activity Regular dental care Booster seat/ Seat belts ASSESSMENT 1. Well child with normal growth and development 2. Strep throat 3. Mild scoliosis 4. Developmental disorder, chromosomal abnormality PLAN Immunizations ?? Reviewed, up to date See other orders in [facility] Referrals/Ongoing Specialty care: Ongoing Specialty care by pediatrics/genetics at the prn. Dental visit recommended: Yes and Continue care every 6 months RTC: 11 yr RHM visit Strep treated with penicillin injection as chosen by mother. If symptoms persist beyond 3-5 more days will need f/u, sooner with any worsening. Discussed supportive cares at length. Discussed the mom the importance of yearly f/u for scoliosis screening. Will f/u sooner if obvious symptoms present such as visible curvature or pain symptoms or gait abnormality. Discussed risk of worsening as she approaches pre-puberty growth period. Darby Harp MD K REPAIR LABORER documented in this encounter Nursing Notes 06/13/2010 8:45 AM CST >> KRYSTEN Vanegas Jun 13, 2010 10:18 AM Screening Questionnaire for Pediatric Immunization Is the child sick today? No Does the child have allergies to medications, food or any vaccine? No Has the child ever had a serious reaction to a vaccination in the past? No Has the child had a health problem with asthma, heart disease, lung disease, kidney disease, diabetes, a metabolic or blood disorder? No If the child to be vaccinated is between the ages of 2 and 4 years, has a healthcare provider told you that the child had wheezing or asthma in the past 12 months? No Has the child had a seizure, brain, or other nervous system problem? No Does the child have cancer, leukemia, AIDS, or any immune system problem? No Has the child taken cortisone, prednisone, other steroids, or anticancer drugs, or had any x-ray (radiation) treatments in the past 3 months? No Has the child received a transfusion of blood or blood products, or been given a medicine called immune (gamma) globulin in the past year? No Is the child/teen or is there a chance that she could become during the next month? No Has the child received any vaccinations in the past 4 weeks? No Immunization questionnaire answers were all negative. Patient instructed to remain in clinic for 20 minutes afterwards, and to report any adverse reactionto me immediately. Prior to injection verified patient identity using patient's name and date of . >> KRYSTEN MCNULTY WedJun 13, 2010 8:46 AM Patient presents with: Well Child - 10 year well child exam Estimated Body mass index is 16.70 kg/(m^2) as calculated from the following: Height as of this encounter: 4' 5.7(1.364 m). Weight as of this encounter: 68 lb 8 oz(31.071 kg). BP Readings from Last 1 Encounters: 08/13/2009 : 120/70] BP cuff size: pediatric Do you feel safe in your environment? Yes Does the patient need any medication refills today? Yes documented in this encounter Plan of Treatment Not on filedocumented as of this encounter Procedures Procedure Name Priority Date/Time Associated Diagnosis Comme nts RAPID STREP SCREEN Routine 06/13/2010 9:34 AM Pharyngitis Res ults for this THROAT SWAB TRACK REPAIR LABORER procedure are i n the results section. documented in this encounter Results (ABNORMAL) STREP GROUP A ANTIGEN (RAPID) (06/13/2010 9:34 AM TRACK REPAIR LABORER) Component Value Ref Test Analysis Performed At [facility] Range Method Time Signature Specimen Throat [place] Description [facility] Rapid Strep A POSITIVE: Group [place] Screen A Streptococcal [facility] antigen detected [facility] by immunoassay. (A) Micro Report FINAL 06/13/2010 [place] Status [facility] Specimen Anatomical Collection Method Collection Time Receive d Time (Source) Location / / Volume Laterality Specimen from 06/13/2010 9:34 AM 06/13/20 10 9:35 throat TRACK REPAIR LABORER AM TRACK REPAIR LABORER (specimen) Darby Harp MD LAB - MICRO GENERAL ORD ERABLES Performing Organization Address City/State/ZIP Code Phon e Number M [facility] [address] [facility] [place] [address] [facility] documented in this encounter Visit Diagnoses Diagnosis Routine infant or child health check - P rimary Scoliosis of thoracic spine Scoliosis (and kyphoscoliosis), idiopath ic Pharyngitis Acute pharyngitis Strep throat Streptococcal sore throat 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 documented in this encounter Care Teams Spikemaking Supervisor Relationship Specialty Start Date End Date Darby Harp MD PCP - General 03/25/05 11/14/14 [address], [place] [address] documented as of this encounter
--- OUTSIDE RECORDS SUMMARY | 2022-04-23 23:51 | XMS_ITS | Encounter Summary ---
:2002 Author Organization [facility] Address [address] [place] [address] Care Team Providers Name Role Phone Darby Harp MD Primary Care Provider [phone] Encounter Details Date Type Department Care Team Description 03/26/2008 Orders Only [facility] Abstract, Provider JOSE MANUEL GNOSIS FOR ++++ [facility] SCANNING ONLY ++++ [address] [facility] (Primary Dx) [place] [address] Social History Tobacco Use Types Packs/Day Years [...] do you attend episcopal or Never 2018 catholic services? 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 documented in this encounter Results SONO RETROPERITONEAL (03/01/2008) Anatomical Region Laterality Modality Other Narrative This result has an attachment that is no t available. Provider Abstract SPECIAL IMAGING STUDIES documented in this encounter Visit Diagnoses Diagnosis DIAGNOSIS FOR ++++ SCANNING ONLY ++++ - Primary documented in this encounter Care Teams Home Hospice Rn Relationship Specialty Start Date End Date Darby Harp MD PCP - General 03/25/05 11/14/[address] [facility] [place] [address] documented as of this encounter
--- OUTSIDE RECORDS SUMMARY | 2022-04-23 23:51 | XMS_ITS | Encounter Summary ---
:2002 Author Organization [facility] Address [address] [place] [address] Care Team Providers Name Role Phone Darby Harp MD Primary Care Provider [phone] Reason for Visit Reason Comments Well Child 8yr Encounter Details Date Type Department Care Team Description [facility] I nfant or Child Health Check (Primary Dx); [facility] Darby Edmonds, Chromosomal Abnormality; [address] [place] [address] [facility] [phone] [place], [place] [address] (Wo rk) Social History Tobacco Use Types [...] do you attend catholic or Never 2018 jain services? 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 Last Filed Vital Signs Vital Sign Reading Time Taken Comments Blood Pressure 90/60 2008 12:45 PM CDT Pulse 80 2008 12:45 PM CDT Temperature 36.5 ??C (97.7 ??F) 2008 12:45 PM CDT Respiratory Rate 16 2008 12:45 PM CDT Oxygen Saturation - - Inhaled Oxygen Concentration - - Weight 25.9 kg (57 lb) 2008 12:45 PM CDT Height 122.6 cm (4' 0.25) 2008 12:45 PM CDT Body Mass Index 17.21 2008 12:45 PM CDT Body Mass Index Percentile 86.22 % 2008 12:45 PM C DT Growth Chart: CDC (Girls, 2-20 Years) documented in this encounter Progress Notes Darby Harp D - 2008 9:31 AM CDT Mahi Faye is an 8 year old female here for a routine health maintenance visit, accompanied by her mother. 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 NO Booster seat/ seat belt? YES Bike/sport helmet? YES TB exposure? NO Pets in the home? NO Guns/firearms in the home? YES, Trigger locks present? no Water source: well water and filtered water CHICKEN POX HISTORY: Previously vaccinated DEVELOPMENTAL/Behavioral Screening form: Form not used VISION did good HEARING na REQUIRED VITAL SIGNS COMPLETED: yes BP 90/60 Pulse 80 Temp (Src) 97.7 ??F (36.5 ??C) (Tympanic) Resp 16 Ht 4' 0.25 (1.226 m) Wt 57 lb (25.855 kg) 92.80% of growth percentile based on [id number]-pjv-xqg. 91.95% of growth percentile based on byndhp-wrq-zkj. No unique date with height and weight on file. Staff signature: Reji HEALTH HISTORY SINCE LAST VISIT No surgery, major illness or injury since last physical exam Immunization History Name Date(s) Administered ??? Comvax (HIB/HepB) 2002, 2002, 03/26/2003 ? ? DTAP (<7y) 2002, 2002, 2002, 09/24/2003, 03/29/2007 ??? Hepatitis A 03/30/2006, 09/27/2006 ??? IPV 2002, 2002, 2002, 03/29/2007 ??? MMR 03/26/2003, 03/29/2007 ??? Prevnar (Ped. Pneumococcal) 2002, 2002, 2002 ??? Varicella 03/26/2003, 03/29/2007 No Known Allergies. DAILY ACTIVITIES NUTRITION: good appetite, eats variety of foods, dairy/ calcium: skim milk, yogurt and cheese, meat,fruits and vegetables SLEEP: No concerns, sleeps well through night, bedtime: 7:30pm and hours/night: 11 ELIMINATION: Normal bowel movements and Normal urination EXERCISE/ RECREATION: Age appropriate activities, Playground and Rides bike (helmet advised) ACTIVITIES: none TV/ MEDIA: < 2 hours/ day and parental monitored programs EDUCATION Concerns: yes-some questions related to her learning and behavioral problems. She has a Para at school. School: [employer] Grade: K MENTAL HEALTH Concerns: no VISION: For details see above, normal HEARING: For details see above, unable to test ROS GENERAL: See health history, nutrition and [...] health EXAM GENERAL: Alert, well appearing, no distress.. Slightly hyperactive in the room, fidgety with brotherRyan. SKIN: Clear. No significant rash, abnormal pigmentation [...] intact: DTR's normal. Normal gait, strength and tone. PLeasant and cooperates with exam. ANTICIPATORY GUIDANCE The following topics were discussed: SOCIAL/ FAMILY: Praise for positive activities Limit / supervise TV/ media Issues around her behavior disorder, still expecting good behavior but patience due to her disability. At this point mom may not know how much is voluntary or involuntary misbehavior, but will come to learn that with time and establishing behavior guidelines. NUTRITION: Healthy snacks Balanced diet HEALTH/ SAFETY: Physical activity Regular dental care Sleep issues Bike/sport helmets Personal safety/good touch-bad touch ASSESSMENT 1. Well child with normal growth and development 2. Chromosomal disorder PLAN Immunizations: Reviewed, up to date See other orders in [facility] Referrals/Ongoing Specialty care: Ongoing Specialty care by Childrens Dental visit recommended: Yes and Continue care every 6 months RTC: 7-8 yr RHM visit, other f/u prn. Darby Harp MD documented in this encounter Nursing Notes 2008 12:45 PM CDT >> CAESAR CRYSTAL WedMar 23, 2008 12:49 PM Body mass index is 17.21 kg/(m^2). BP cuff size: pediatric Last 1 Encounter BP Readings: Date: BP: 2008 90/60] Do you feel safe in your environment? Unable to answer Does the patient need any medication refills today? 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
--- OUTSIDE RECORDS SUMMARY | 2022-04-23 23:51 | XMS_ITS | Encounter Summary ---
:2000 Author Organization [facility] Address [address] [place] [address] Care Team Providers Name Role Phone Darby Harp MD Primary Care Provider [phone] Reason for Visit Reason Comments Well Child 12 year Encounter Details Date Type Department Care Team Description 12/28/2012 Office Visit [facility], Routine in katty or child health check (Primary Dx); Clinic [place] Darby Edmonds, Chromosomal abnormality; [address] [place] [address] ALVIN CORLEY Learning disability [place] [address] [facility] [id number] [place] [address] (Wo rk) Social History Tobacco [...] do you attend adventist or Never 2018 mormon services? 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 Last Filed Vital Signs Vital Sign Reading Time Taken Comments Blood Pressure 96/60 12/28/2012 2:44 PM CDT Pulse 120 12/28/2012 2:44 PM CDT Temperature 36.7 ??C (98 ??F) 12/28/2012 2:44 PM CDT Respiratory Rate 18 12/28/2012 2:44 PM CDT Oxygen Saturation 99% 12/28/2012 2:44 PM CDT Inhaled Oxygen Concentration - - Weight 41.3 kg (91 lb) 12/28/2012 2:44 PM CDT Height 151.1 cm (4' 11.5) 12/28/2012 2:44 PM CDT Body Mass Index 18.07 12/28/2012 2:44 PM CDT Body Mass Index Percentile 61.52 % 12/28/2012 2:44 PM CD T Growth Chart: CDC (Girls, 2-20 Years) documented in this encounter Progress Notes Darby Harp MD - 12/28/2012 2:43 PM CDT Mahi Faye is a 12 year old female here for a routine health maintenance visit, accompanied by her mother. QUESTIONS/CONCERNS: None FAMILY/ SOCIAL HISTORY Child lives with: mother, father and brother Recent family changes/social stressors: moving soon to the [facility] due to father's illness, he has ALS and they are moving to be near family and be in an accessible home. Family History: No changes since last physical Language(s) spoken at home: Thai ENVIRONMENTAL RISK ASSESSMENT Is your child around anyone who smokes? NO Booster seat/ seat belt? YES Bike/ sport helmet? YES TB exposure? NO Pets in the home? YES 1 dog Guns/firearms in the home? YES, Trigger locks present? NO (Recommended), Ammunition separate from firearm: Water source: WELL WATER CHICKEN POX HISTORY: Previously vaccinated with 2 doses of Varivax DEVELOPMENTAL/BEHAVIORAL SCREENING FORM: Form not used VISION Previous normal screenings HEARING Previous normal screenings REQUIRED VITAL SIGNS COMPLETED: yes BP 96/60 Pulse 120 Temp 98 ??F (36.7 ??C) (Tympanic) Resp 18 Ht 4' 11.5 (1.511 m) Wt 91 lb (41.277 kg) BMI 18.07 kg/m2 SpO2 99% ? No 88.37%ile based on CDC 2-20 Years tuwvzke-rjm-ruj data. 73.31%ile based on CDC 2-20 Years domonm-zna-ffq data. 61.65%ile based on CDC 2-20 Years BMI-for-age data. 17.1% systolic and 39.9% diastolic of BP percentile by age, sex, and height. Staff signature: Jaquelin Kent CMA HEALTH HISTORY SINCE LAST VISIT No surgery, major illness or injury since last physical exam Immunization History Administered Date(s) Administered ??? Comvax (HIB/HepB) 2002, 2002, 03/26/2003 ? ? DTAP (<7y) 2002, 2002, 2002, 09/24/2003, 03/29/2007 ??? Hepatitis A 03/30/2006, 09/27/2006 ??? IPV 2002, 2002, 2002, 03/29/2007 ??? Influenza 05/22/2008, 06/10/2009, 04/11/2010, 05/04/2011 ??? Influenza (H1N1) 07/03/2009 ??? Influenza Intranasal Vaccine 05/03/2012 ??? MMR 03/26/2003, 03/29/2007 ??? Pneumococcal (PCV 13) 06/02/2011 ??? Pneumococcal (PCV 7) 2002, 2002, 2002 ??? Varicella 03/26/2003, 03/29/2007 Allergies Allergen Reactions ??? Nkda (No Known Drug Allergies) DAILY ACTIVITIES NUTRITION: good appetite, eats variety of foods and dairy/ calcium: skim milk, yogurt and cheese SLEEP No concerns, sleeps well through night ELIMINATION Normal bowel movements and Normal urination EXERCISE/ RECREATION: Age appropriate activities, Playground, Rides bike (helmet advised) and Organized / team sports: none ACTIVITIES: none TV/ MEDIA: >2 hours/ day and parental monitored programs EDUCATION Concerns: yes-she has a learning disability, but is working with school, now will be moving to new school. School: Unknown - [employer] district is a possiblity Grade: 5 School performance / Academic skills: learning disability as above Behavior: no current behavioral concerns in school MENTAL HEALTH Concerns: No concerns VISION: For details see above, normal HEARING: For details see above, normal ROS [...] and behavior, or mental health EXAM GENERAL: Active, alert, in no acute distress. [...] and tone BACK: Spine is straight, no scoliosis but on forward bending test her left scapula is slightly higher than her right. No obvious curvature. EXTREMITIES: Full range of motion, no deformities -F: Normal female external genitalia, Amadeo stage 1. ANTICIPATORY GUIDANCE The following topics were discussed: SOCIAL/ FAMILY: Praise for positive activities Encourage reading Limit / supervise TV/ media Limits and consequences Conflict resolution NUTRITION: Healthy snacks Family meals Calcium and iron sources Balanced diet HEALTH/ SAFETY: Physical activity Regular dental care Booster seat/ Seat belts Swim/ water safety Bike/sport helmets Firearms ASSESSMENT 1. Well child with normal growth and development 2. Learning disability 3. Chromosomal abnormality PLAN 61.65%ile based on CDC 2-20 Years BMI-for-age data. Patient not obese . Immunizations Reviewed, up to date See other orders in EpicCare Referrals/Ongoing Specialty care: No Dental visit recommended: Yes and Continue care every 6 months RTC: 13 year RHM visit with her new provider. Will be happy to see her back here as needed. Darby Harp MD documented in this encounter Nursing Notes 12/28/2012 2:45 PM CDT >> JAQUELIN KENT Wed Dec 28, 2012 2:58 PM Patient presents with: Well Child - 12 year Initial BP 96/60 Pulse 120 Temp 98 ??F (36.7 ??C) (Tympanic) Resp 18 Ht 4' 11.5 (1.511 m) Wt 91 lb (41.277 kg) BMI 18.07 kg/m2 SpO2 99% ? No Estimated Body mass index is 18.07 kg/(m^2) as calculated from the following: Height as of this encounter: 4' 11.5(1.511 m). Weight as of this encounter: 91 lb(41.277 kg).. 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
--- OUTSIDE RECORDS SUMMARY | 2022-04-23 23:51 | XMS_ITS | Encounter Summary ---
:2000 Author Organization [facility] Address [address] [place] [address] Care Team Providers Name Role Phone Darby Harp MD Primary Care Provider [phone] Queta Fritz MD Unavailable [phone] Queta Fritz MD Unavailable [phone] Reason for Visit Reason Comments Follow Up Urgent care visit Encounter Details Date Type Department Care Team Description 07/16/2014 Office Visit [facility] Christiano Holloway Peritonea l abscess Clinic Jian Lagunas MD (H) (Primary Dx) [address] [address] [address] [address], [address] [place], [place] [address] [place] [address] (Wo rk) [address] [phone] Social History Tobacco Use Types Packs/Day Years [...] or relatives? How often do you attend yazdanism or Never 2018 jain services? 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 Last Filed Vital Signs Vital Sign Reading Time Taken Comments Blood Pressure 108/72 07/16/2014 8:14 AM FRET SAW OPERATOR Pulse 90 07/16/2014 8:14 AM FRET SAW OPERATOR Temperature 36.7 ??C (98.1 ??F) 07/16/2014 8:14 AM FRET SAW OPERATOR Respiratory Rate - - Oxygen Saturation 98% 07/16/2014 8:14 AM FRET SAW OPERATOR Inhaled Oxygen Concentration - - Weight 43.5 kg (96 lb) 07/16/2014 8:14 AM FRET SAW OPERATOR Height - - Body Mass Index - - documented in this encounter Progress Notes Christiano Holloway MD - 07/16/2014 6:51 AM CST HPI SUBJECTIVE: Mahi Faye is a 14 year old female who presents to clinic today for the following health issues: ED/UC Followup: Facility: [facility] Date of visit: 07/13/14 Reason for visit: Sore Throat Current Status: worsened since urgent care visit, also complaints of left ear pain Worsening sore throat over the last few nights - voice has been more affected in the last 24 hours. No marlene fevers. No congestion or cough. C/o some vomiting, not seen by mother. Has been using ibuprofen, cough drops. Patient lives with parents, borther There are no smokers living in the home. Patient is up-to-date with well child check-up and immunizations. Did have flu shot this year. Review of Systems Constitutional: Positive for fever and weight loss. HENT: Positive for sore throat. Negative for congestion. Respiratory: Negative. Gastrointestinal: Negative. Neurological: Negative for headaches. Physical Exam Constitutional: She is oriented to person, place, and time and well-developed, well-nourished, and in no distress. HENT: Mouth/Throat: Mucous membranes are normal. Posterior oropharyngeal edema and tonsillar abscesses present. No oropharyngeal exudate or posterior oropharyngeal erythema. L peritonsillar abscess Eyes: Conjunctivae and EOM are normal. Cardiovascular: Normal rate, regular rhythm and normal heart sounds. Pulmonary/Chest: Effort normal and breath sounds normal. Musculoskeletal: She exhibits no edema. Lymphadenopathy: She has no cervical adenopathy. Neurological: She is alert and oriented to person, place, and time. Skin: Skin is warm and dry. Vitals reviewed. (567.22) Peritoneal abscess (primary encounter diagnosis) Comment: large L peritonsillar abscess Plan: [facility] to [facility] Chrsitiano Holloway MD SAW OPERATOR documented in this encounter Nursing Notes Selma James CMA - 07/16/2014 8:18 AM CST Chief Complaint Patient presents with ??? Follow Up For Urgent care visit Initial BP 108/72 Pulse 90 Temp(Src) 98.1 ??F (36.7 ??C) (Oral) Wt 96 lb (43.545 kg) SpO2 98% Estimated body mass index is 17.42 kg/(m^2) as calculated from the following: Height as of 03/08/14: 5' 2.25 (1.581 m). Weight as of this encounter: 96 lb (43.545 kg). BP completed using cuff size: natalie James CMA SAW OPERATOR documented in this encounter Plan of Treatment Not on filedocumented as of this encounter Visit Diagnoses Diagnosis Peritoneal abscess (H) - Primary Peritoneal abscess documented in this encounter Care Teams Mangle Feeder Relationship Specialty Start Date End Date Darby Harp MD PCP - General 03/25/05 11/14/14 [address] [facility] [place] [id number] Queta Fritz MD PCP - Assigned PCP 03/04/14 09/20/[address] [place] [address] [id number] Queta Fritz MD Assigned PCP 03/04/14 04/12/21 [address] [place] [id number] documented as of this encounter
--- OUTSIDE RECORDS SUMMARY | 2022-04-23 23:51 | XMS_ITS | Encounter Summary ---
:2000 Author Organization [facility] Address [address] [place] [address] Care Team Providers Name Role Phone Darby Hammer MD Primary Care Provider [phone] Reason for Visit Reason Onset Date Comments Patient Request 10/11/2007 Encounter Details Date Type Department Care Team Description 10/11/2007 Telephone [facility] Darby Hammer atient Request [facility] MD Kendal [address] [place] [address] [place], [place] [id number] (Wo rk) Social History Tobacco Use Types [...] you attend latter day or Never 2018 hinduism services? 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 We discussed the potential for doing any other testing. Will review withpeds about any other helpful tests and review with mom at her pre-op appt whether we should proceed. Darby Hammer MD Telephone Encounter - Darby Hammer - 11/25/2007 4:16 PM CDT [employer] message copied by DARBY HAMMER on 11/25/2007 at 4:16 PM ------ Message from: CHARLEEN HARVEY Created: 11/25/2007 at 4:00 PM Regarding: KA- return call Contact: Eleanor Felix is returning your call regarding Mahi. Please call her at [phone]. Thank you KD/CIS Telephone Encounter - Darby Hammer - 11/25/2007 3:50 PM CDT I did review her records and it looks like the neuro clinic was going to order some things. I don't know if they did or not, I don't have any reports of labs from them. She had a normal metabolic screen at , then a normal TSH 11/21 and a normal lead level 11/21. I left mom a message to call to discuss exactly what tests she is concerned about and I will be happy to order what we need. I may have to talk with neuro about this, to see if they had recommended anything specific. Darby Hammer MD Telephone Encounter - Darby Hammer - 11/23/2007 4:57 PM CDT Please let Eleanor know I will get this done by Wednesday and I will call her either tomorrow or Wednesday. I apologize for the delay. Telephone Encounter - Caesar Ro - 11/07/2007 4:02 PM CDT Pt notified via phone. Telephone Encounter - Darby Hammer - 11/07/2007 4:00 PM CDT Tell her that I have her stuff, just have not gotten through it. I will do that today or tomorrow and get back to her. Telephone Encounter - Caesar Ro - 11/04/2007 2:56 PM CDT [employer] message copied by CAESAR RO on 11/04/2007 at 2:56 PM ------ Message from: TAE MANNING Created: 11/04/2007 at 2:17 PM Regarding: KA-LAB ORDERS Contact: Rosario (mom) is calling because she said she is still waiting to here about some lab orders/work for Mahi. Please call her to discuss. Thank you, corey/fifi Telephone Encounter - Caesar Ro - 10/28/2007 9:04 AM CDT [employer] message copied by CAESAR RO on 10/28/2007 at 9:04 AM ------ Message from: SOBIA NGUYEN Created: 10/28/2007 at 8:56 AM Regarding: KA: CALL BACK REQUEST Contact: Mom, Eleanor, would like call back to discuss orders for some lab work that you were discussing Telephone Encounter - Darby Hammer - 10/18/2007 5:06 PM CDT I talked to Eleanor today. She went to get records made but it was over lunch break. She will try again tomorrow. I told her that I would do these orders, but if she could get me those reports I will review them and order appropriate tests. If she doesn't hear from me by Wednesday to call back. Telephone Encounter - Caesar Ro - 10/11/2007 12:48 PM CDT I talked to Eleanor, she would like to talk to Dr. Hammer about Mahi's development. She had a physchological test done. Eleanor is going to get us a copy of the records. Will you order this test without seeing Mahi. Telephone Encounter - Caesar Ro - 10/11/2007 12:17 PM CDT [employer] message copied by CAESAR RO on 10/11/2007 at 12:17 PM ------ Message from: HERB HUNT Created: 10/11/2007 at 12:15 PM Regarding: questions KA Contact: Liza renae would like a call in regards to Metabolic disorder testing ... Is requesting a call . Thanks SB documented in this encounter Plan of Treatment Not on filedocumented as of this encounter Visit Diagnoses Diagnosis Other behavioral problems - Primary documented in this encounter Care Teams Benzene Washer Relationship Specialty Start Date End Date Darby Hammer MD PCP - General 03/25/05 11/14/14 [address] [facility] AN[place]EL [place] [id number] documented as of this encounter
--- OUTSIDE RECORDS SUMMARY | 2022-04-23 23:51 | XMS_ITS | Encounter Summary ---
:2002 Author Organization [facility] Address [address] [place] [address] Care Team Providers Name Role Phone Darby Harp MD Primary Care Provider [phone] Reason for Visit Reason Comments Well Child 9 yr Flu Shot Encounter Details Date Type Department Care Team Description 06/10/2009 Office Visit [facility] Loyd, Routine I nfant or Child Health Check (Primary Dx); [facility] Darby Edmonds, Need for Prophylactic Vaccin ation and Inoculation Against Influenza; [facility] [facility] William CORLEY Chromosomal Abnormality; [place] [address] [place] [address] Learning Disability [phone] [place], [place] [address] (Wo rk) Social History [...] do you attend anglican or Never 2018 samaritan services? 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 documented as of this encounter Last Filed Vital Signs Vital Sign Reading Time Taken Comments Blood Pressure 100/60 06/10/2009 7:49 AM HOUSEMAID Pulse 70 06/10/2009 7:49 AM HOUSEMAID Temperature 36.7 ??C (98.1 ??F) 06/10/2009 7:49 AM HOUSEMAID Respiratory Rate 18 06/10/2009 7:49 AM HOUSEMAID Oxygen Saturation - - Inhaled Oxygen Concentration - - Weight 29 kg (64 lb) 06/10/2009 7:49 AM HOUSEMAID Height 130.8 cm (4' 3.5) 06/10/2009 7:49 AM HOUSEMAID Body Mass Index 16.97 06/10/2009 7:49 AM HOUSEMAID Body Mass Index Percentile 76.98 % 06/10/2009 7:49 AM CS T Growth Chart: [facility] (Girls, 2-20 Years) documented in this encounter Progress Notes Caesar Ro - 06/10/2009 8:46 AM CST Injectable Influenza Immunization Documentation 1. Has the patient received the information for the injectable influenza vaccine? YES 2. Is the patient 6 months of age or older? YES 3. Does the patient have any of the following contraindications? Severe allergy to eggs? No Severe allergic reaction to previous influenza vaccines? No Allergy to contact lens solution/thimerosol? No History of Guillain-[place] syndrome? No Currently have moderate or severe illness? No 3. The vaccine has been administered and the patient was instructed to wait 15 minutes before leaving the building in the event of an allergic reaction: YES Vaccination given by Kaylie/[place] EMAID Darby Harp - 06/10/2009 7:56 AM CST Mahi Faye is a 9 year old female here for a routine health maintenance visit, accompanied by her mother. QUESTIONS/CONCERNS: Body odor: A year ago, mom first noticed her arm pit body odor. Not every day, but when it is present it is very noticeable. Nobody else has mentioned it, mom just notices it under the arms. She bathes every 1-2 days, even the day after a bath she still can smell it. She doesn't seem to sweat any more than usual. FAMILY/ SOCIAL HISTORY Child lives with: mother, father and brother health care specialist: School Recent family changes/social stressors: none noted Family History: No changes since last physical Language(s) spoken at home: [place] ENVIRONMENTAL RISK ASSESSMENT Is your child around anyone who smokes? NO Booster seat/ seat belt? YES Bike/sport helmet? YES TB exposure? NO Pets in the home? NO Guns/firearms in the home? YES, Trigger locks present? NO (Recommended) Water source: well water and filtered water, has fluoride. DEVELOPMENTAL/Behavioral Screening form: Form not used VISION Wears glasses? NO Right eye: 20/40 Left eye: 20/40 Both eyes: 20/25 HEARING no concerns REQUIRED VITAL SIGNS COMPLETED: yes BP 100/60 Pulse 70 Temp (Src) 98.1 ??F (36.7 ??C) (Tympanic) Resp 18 Ht 4' 3.5 (1.308 m) Wt 64 lb (29.03 kg) 91.40% of growth percentile based on [id number]. 88.12% of growth percentile based on [id number]. 76.92% of growth percentile based on BMI-for-age. Staff signature: Kaylie/[place] HEALTH HISTORY SINCE LAST VISIT No surgery, major illness or injury since last physical exam Immunization History Administered Date(s) Administered ??? Comvax (HIB/HepB) 2002, 2002, 03/26/2003 ? ? DTAP (<7y) 2002, 2002, 2002, 09/24/2003, 03/29/2007 ??? Hepatitis A 03/30/2006, 09/27/2006 ??? IPV 2002, 2002, 2002, 03/29/2007 ??? Influenza 05/22/2008 ??? MMR 03/26/2003, 03/29/2007 ??? Prevnar (Ped. Pneumococcal) 2002, 2002, 2002 ??? Varicella 03/26/2003, 03/29/2007 H1N1 at [facility] last week No Known Allergies. DAILY ACTIVITIES NUTRITION: good [...] day and parental monitored programs EDUCATION Concerns: no School: [employer] Grade: 1st MENTAL HEALTH Concerns: yes-she is actually doing better in regards to her behavior. She is doing better at school. She still fights with her brother but mom thinks much of that is just normal sibling rivalry. VISION: For details see above, abnormal, mildly - recommended formal eye exam HEARING: For details see above, normal, subjectively ROS GENERAL: See health history, nutrition and [...] health EXAM GENERAL: Alert, well appearing, no distress. She was nervous at first, but warmed up and was cooperative and curious. SKIN: Clear. No significant rash, abnormal pigmentation or lesions HEAD: Normocephalic, atraumatic EYES: Symmetric light reflex and no eye movement on cover/uncover test. Normal conjunctivae. EOMs intact EARS: Normal canals. Tympanic membranes are normal; presley and translucent. Cerumen bilaterally but did not obscur canals. NOSE: Normal without discharge. MOUTH/THROAT: Clear. No oral lesions. Teeth without obvious abnormalities. She is not drooling much today. NECK: Supple, no masses. No thyromegaly. LYMPH NODES: No adenopathy LUNGS: Clear. No rales, rhonchi, wheezing or retractions HEART: Regular rhythm. Normal S1/S2. No murmurs. Normal pulses. ABDOMEN: Soft, non-tender, not distended, no masses or hepatosplenomegaly. Bowel sounds normal. GENITALIA: Normal female external genitalia. Amadeo stage I, No inguinal herniae are present. Femoral pulses equal and normal. EXTREMITIES: Full range of motion, no deformities NEUROLOGIC: No focal findings. Cranial nerves grossly intact: DTR's normal. Normal gait, strength and tone. SPINE: straight, no evidence of scoliosis ANTICIPATORY GUIDANCE The following topics were discussed: SOCIAL/ FAMILY: Praise for positive activities Encourage reading Friends NUTRITION: Healthy snacks Family meals Balanced diet HEALTH/ SAFETY: Physical activity Regular dental care Bike/sport helmets ASSESSMENT 1. Well child with normal growth and development Encounter Diagnoses Code Name Primary? Qualifier ??? V20.2 Routine or Child Health Check Yes ??? V04.81 Need for Prophylactic Vaccination and Inoculation Against Influenza Plan: FLU VACCINE, 3 YRS +, IM, IMMUNIZATION ADMIN, FIRST PLAN Immunizations: See orders in EpicCare. Counseling provided regarding the benefits and risks related to the vaccines ordered today. I reviewed the signs and symptoms of adverse effects and when to seek medical care if they should arise. See other orders in EpicCare Referrals/Ongoing Specialty care: No Dental visit recommended: Continue care every 6 months RTC: 10 yr RHM visit, sooner if there are questions or concerns. Recommended the use of a deodorant for the body odor. Also asked mom to watch for signs of early puberty. I don't suspect this is the case, and that it is normal body odor from playing outside and running around. She does not seem to sweat more than normal kids. Mom is the only one that has noticed itas far as she knows. If there are further concerns or if she appears to be going through early puberty then she should be seen sooner. Patient seen and examined with Dr. Harp and scribed by; Rosario Matute, MS3 and edited by Darby Harp MD Pt was personally seen, interviewed and examined by me and I agree with assessment as documented above. Darby Harp MD . EMAID documented in this encounter Nursing Notes 06/10/2009 7:45 AM CST >> CAESAR CRYSTAL Mon Jun 10, 2009 8:46 AM Pt instructed to wait 20 min after giving injection. Kaylie/RMA >> CAESAR KLUGE Mon Jun 10, 2009 7:56 AM Body mass index is 16.97 kg/(m^2). BP cuff size: pediatric Last 1 Encounter BP Readings: Date: BP: 06/10/2009 100/60] Do you feel safe in your environment? Not asked Does the patient need any medication refills today? 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
--- OUTSIDE RECORDS SUMMARY | 2022-04-23 23:51 | XMS_ITS | Encounter Summary ---
:2002 Author Organization [facility] Address On license of [facility] [place] [address] Care Team Providers Name Role Phone Darby Harp MD Primary Care Provider [phone] Reason for Visit Reason Comments Flu Shot Encounter Details Date Type Department Care Team Description 05/21/2008 Allied Health/Nurse [facility] Flu Shot Visit [facility] [address] [place], [place] [id number] Social History Tobacco Use Types Packs/Day Years [...] do you attend caodaism or Never 2018 hinduism services? Do you [...] slept in a senior care (including now)? 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 Has the patient received the information for the injectable influenza vaccine? YES 2. Is the patient 6 months of age or older? YES 3. Does the patient have any of the following contraindications? Severe allergy to eggs? No Severe allergic reaction to previous influenza vaccines? No Allergy to contact lens solution/thimerosol? No History of Guillain-[place] syndrome? No Currently have moderate or severe illness? No 3. The vaccine has been administered and the patient was instructed to wait 15 minutes before leaving the building in the event of an allergic reaction: YES Vaccination given by Maribeth Darby RN ATING SYSTEM DESIGNER documented in this encounter Nursing Notes 05/21/2008 3:20 PM CST >> ZEE Merida May 22, 2008 11:52 AM Verified patient name and date of prior to giving injection. Instructed patient to wait for 20mins after injection. documented in this encounter Plan of Treatment Not on filedocumented as of this encounter Visit Diagnoses Diagnosis Need for prophylactic vaccination and in oculation against influenza documented in this encounter Care Teams Housekeeping Laundry Worker Relationship Specialty Start Date End Date Darby Harp MD PCP - General 03/25/05 11/14/14 [address] [facility] [place] [id number] documented as of this encounter
--- OUTSIDE RECORDS SUMMARY | 2022-04-23 23:51 | XMS_ITS | Encounter Summary ---
:2000 Author Organization [facility] Address [address] [place] [address] Care Team Providers Name Role Phone Darby Harp MD Primary Care Provider [phone] Queta Fritz MD Unavailable [phone] Queta Fritz MD Unavailable [phone] Reason for Visit Reason Comments Pharyngitis x 3 days or more Urgent Care Encounter Details Date Type Department Care Team Description 07/13/2014 Office Visit [facility] Julio Edwards MD Acute pharyngitis Care 2019 (Primary Dx) [address] [address] [place], [place] [phone] Social History Tobacco Use Types Packs/Day Years [...] do you attend gnosticist or Never 2018 protestant services? 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 documented as of this encounter Last Filed Vital Signs Vital Sign Reading Time Taken Comments Blood Pressure - - Pulse 110 07/13/2014 7:25 PM TANK BOTTOM ASSEMBLER Temperature 38 ??C (100.4 ??F) 07/13/2014 7:25 PM TANK BOTTOM ASSEMBLER Respiratory Rate - - Oxygen Saturation 100% 07/13/2014 7:25 PM TANK BOTTOM ASSEMBLER Inhaled Oxygen Concentration - - Weight 44.3 kg (97 lb 9.6 oz) 07/13/2014 7:25 PM TANK BOTTOM ASSEMBLER Height - - Body Mass Index - - documented in this encounter Patient Instructions Patient InstructionsHoSage perrin MD - 07/13/2014 8:01 PM CST Tylenol, Ibuprofen Warm salt water gargles Follow up with your primary care provider if not better in 7 days. BOTTOM ASSEMBLER documented in this encounter Progress Notes Sage Edwards MD - 07/13/2014 7:29 PM CST SUBJECTIVE: Mahi Faye is a 14 year old female with a chief complaint of sore throat. Onset of symptoms was more than 3 days ago. No nose/ear problems. No coughing. Course of illness: worsening.. Severity severe. Current and Associated symptoms: as listed above. Treatment measures tried include Ibuprofen without relief. No relief with OC cough drops. . Predisposing factors include none. . Past Medical History Diagnosis Date ??? 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 CONGEN URETHRAL STENOSIS 12/16/2005 Current Outpatient Prescriptions Medication Sig Dispense Refill ??? NO ACTIVE MEDICATIONS History Substance Use Topics ??? Smoking status: Never Smoker ??? Smokeless tobacco: Never Used Comment: no smokers in household ??? Alcohol Use: No ROS: Review of systems negative except as stated above. OBJECTIVE: Pulse 110 Temp(Src) 100.4 ??F (38 ??C) (Tympanic) Wt 97 lb 9.6 oz (44.271 kg) SpO2 100% ? No GENERAL APPEARANCE: healthy, alert and no distress HENT: ears have cerumen impaction. Pharynx erythematous with no exudate noted. NECK: supple, non-tender to palpation, no adenopathy noted RESP: lungs clear to auscultation - no rales, rhonchi or wheezes CV: regular rates and rhythm, normal S1 S2, no murmur noted SKIN: no suspicious lesions or rashes Rapid Strep test is negative; await throat culture results. ASSESSMENT: Acute pharyngitis PLAN: Symptomatic treat with gargles, lozenges, and OTC analgesic as needed. Follow-up with primary clinic if not improving in 7 days. Throat CX pending. Sage Edwards MD BOTTOM ASSEMBLER documented in this encounter Nursing Notes Erica Hogan MA - 07/13/2014 7:25 PM CST Chief Complaint Patient presents with ??? Pharyngitis x 3 days or more ??? Urgent Care Initial Pulse 110 Temp(Src) 100.4 ??F (38 ??C) (Tympanic) Wt 97 lb 9.6 oz (44.271 kg) SpO2 100% ? No Estimated body mass index is 17.71 kg/(m^2) as calculated from the following: Height as of 03/08/14: 5' 2.25 (1.581 m). Weight as of this encounter: 97 lb 9.6 oz (44.271 kg). BP completed using cuff size: NA (Not Taken) BOTTOM ASSEMBLER documented in this encounter Plan of Treatment Not on filedocumented as of this encounter Procedures Procedure Name Priority Date/Time Associated Diagnosis Comme nts RAPID STREP SCREEN Routine 07/13/2014 7:34 PM Acute Pharyngiti s Results for this THROAT SWAB TANK BOTTOM ASSEMBLER procedure are i n the results section. BETA HEMOLYTIC Routine 07/13/2014 7:34 PM Acute Pharyngitis Re sults for this STREP GROUP A TANK BOTTOM ASSEMBLER procedure are in CULTURE the results section. documented in this encounter Results Beta strep group A culture (07/13/2014 7:34 PM TANK BOTTOM ASSEMBLER) Component Value Ref Test Analysis Performed At [facility] Range Method Time Signature Specimen Throat [facility] Description CLINICS STEVEN Culture Micro No Beta [facility] Streptococcus CLINICS isolated STEVEN Micro Report FINAL 07/15/2014 [facility] Status CLINICS STEVEN Specimen Anatomical Collection Method Collection Time Receive d Time (Source) Location / / Volume Laterality 07/13/2014 7:34 PM 4 7:39 TANK BOTTOM ASSEMBLER PM TANK BOTTOM ASSEMBLER Sage Edwards MD LAB - MICRO GENERAL ORDERABL ES Performing Organization Address City/[facility]/ZIP Code Phon e Number [facility] [address] [place] [address] Strep, Rapid Screen (07/13/2014 7:34 PM TANK BOTTOM ASSEMBLER) Component Value Ref Test Analysis Performed At [facility] Range Method Time Signature Specimen [facility]roat [facility] Description [facility] Rapid Strep A NEGATIVE: No Group A strepto coccal antigen detected by immunoassay, await [facility] Screen culture report. [facility] Micro Report FINAL 07/13/2014 [facility] Status [facility] Specimen Anatomical Collection Method Collection Time Receive d Time (Source) Location / / Volume Laterality Specimen from 07/13/2014 7:34 PM 07/13/20 14 7:39 throat TANK BOTTOM ASSEMBLER PM TANK BOTTOM ASSEMBLER (specimen) Sage Edwards MD LAB - MICRO GENERAL ORDERABL ES Performing Organization Address City/[facility]/ZIP Code Phon e Number [address] [id number] documented in this encounter Visit Diagnoses Diagnosis Acute pharyngitis - Primary documented in this encounter Care Teams Manager Ed Relationship Specialty Start Date End Date Darby Harp MD PCP - General 03/25/05 11/14/14 9 [facility] [place] [id number] Queta Fritz MD PCP - Assigned PCP 03/04/14 09/20/18 [address] [place] [id number] Queta Fritz MD Assigned PCP 03/04/14 04/12/21 [address] [place] [id number] documented as of this encounter
--- OUTSIDE RECORDS SUMMARY | 2022-04-23 23:51 | XMS_ITS | Encounter Summary ---
:2002 Author Organization [facility] Address [address] [place] [address] Care Team Providers Name Role Phone Darby Harp MD Primary Care Provider [phone] Reason for Visit Reason Comments Flu Shot 2011-06 Encounter Details Date Type Department Care Team Description 05/04/2011 Allied Health/Nurse Health [facility] Flu Shot (2011-06 Visit [facility] [place] ) [address] [place] [address] Social History Tobacco Use Types Packs/Day Years [...] do you attend samaritan or Never 2018 buddhist services? 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 Has the patient received the information for the injectable influenza vaccine? YES 2. Is the patient 6 months of age or older? YES 3. Does the patient have any of the following contraindications? Severe allergy to latex? No Severe allergy to eggs? No Severe allergic reaction to previous influenza vaccines? No Allergy to contact lens solution/thimerosol? No History of Guillain-[place] syndrome? No Undergoing chemotherapy or radiation therapy? (vaccine should be given at least 2 weeks prior or 3 weeks after) No Currently have moderate or severe illness? No 4. The vaccine has been administered and the patient was instructed to wait 15 minutes before leaving the building in the event of an allergic reaction: YES Vaccination given by Margarito Lewis documented in this encounter Nursing Notes 05/04/2011 3:30 PM CDT >> MARGARITO ARCHER Mon May 04, 2011 3:37 PM Estimated Body mass index is 16.88 kg/(m^2) as calculated from the following: Height as of 08/27/10: 4' 6(1.372 m). Weight as of 09/03/10: 70 lb(31.752 kg). BP Readings from Last 1 Encounters: 09/03/10 : 90/72] BP cuff size: NA (Not Taken)No concerns Do you feel safe in your environment? Yes Does the patient need any medication refills today? No Patient presents with: Flu Shot - 2011-06 Season Margarito WHITE documented in this encounter Plan of Treatment Not on filedocumented as of this encounter Visit Diagnoses Diagnosis Need for prophylactic vaccination and in oculation against influenza - Primary documented in this encounter Care Teams Emergency Medicine Medical Director Relationship Specialty Start Date End Date Darby Harp MD PCP - General 03/25/05 11/14/14 [address] [facility] [place] [id number] documented as of this encounter
--- OUTSIDE RECORDS SUMMARY | 2022-04-23 23:51 | XMS_ITS | Encounter Summary ---
:2000 Author Organization [facility] Address [address] [place] [address] Care Team Providers Name Role Phone Darby Harp MD Primary Care Provider [phone] Reason for Visit Reason Comments Well Child 7 year well Encounter Details Date Type Department Care Team Description 12/16/2007 [facility] Darby Edmonds, Preop General Physical Exam; 9[facility] William CORLEY [place] [address] [facility] [phone] [place], [place] [address] (Wo rk) Social History [...] do you attend jew or Never 2018 sabianist services? Do you [...] at Date Recorded Female 09/04/2021 9:00 PM SCAFFOLDER documented as of this encounter Last Filed Vital Signs Vital Sign Reading Time Taken Comments Blood Pressure 94/58 12/16/2007 9:00 AM CDT Pulse 80 12/16/2007 9:00 AM CDT Temperature 37.3 ??C (99.1 ??F) 12/16/2007 9:00 AM CDT Respiratory Rate 20 12/16/2007 9:00 AM CDT Oxygen Saturation - - Inhaled Oxygen Concentration - - Weight 24.7 kg (54 lb 8 oz) 12/16/2007 9:00 AM CDT Height 121.9 cm (4') 12/16/2007 9:00 AM CDT Body Mass Index 16.63 12/16/2007 9:00 AM CDT Body Mass Index Percentile 80.83 % 12/16/2007 9:00 AM CD T Growth Chart: CDC (Girls, 2-20 Years) documented in this encounter Progress Notes Tu Conway - 12/16/2007 9:11 AM CDT Mahi Faye is an 7 year old female here for a routine health maintenance visit, accompanied by her mother. She needs clearance for sedation for MRI as part of eval for neuropsychiatric/developmental disorder. Date of MRI: 12/21/07 TIME: 8:30am Place: [facility] QUESTIONS/CONCERNS: None. Currently healthy, although mom has a cold. FAMILY/ SOCIAL HISTORY Child lives with: mother, father and brother respite care provider: Preschool Recent family changes/social stressors: none noted Family History: No changes since last physical Language(s) spoken at home: Irish Family History Problem Relation ??? Cancer Paternal Grandfather lung ??? Anesthesia Negative ENVIRONMENTAL RISK ASSESSMENT Is your child around anyone who smokes? NO Car seat/ Booster seat? YES Bike/sport helmet? YES TB exposure? NO Pets in the home? NO Guns/firearms in the home? YES, Trigger locks present? NO (Recommended) Water source: well water, on fluoride. CHICKEN POX HISTORY: Previously vaccinated DEVELOPMENTAL/Behavioral Screening form: Form not used VISION Right eye: 20/40 Left eye: 20/40 Both eyes: 20/40 HEARING No Concerns REQUIRED VITAL SIGNS COMPLETED: yes BP 94/58 Pulse 80 Temp (Src) 99.1 ??F (37.3 ??C) (Oral) Resp 20 Ht 4' (1.219 m) Wt 54 lb 8oz (24.721 kg) 95.67% of growth percentile based on [id number]. 91.27% of growth percentile based on [id number]-dff-[id number]. 80.84% of growth percentile based on BMI-for-age. Staff signature: Tu ARACELY Conway HEALTH HISTORY SINCE LAST VISIT No surgery, major illness or injury since last physical exam. No past medical history on file. Past Surgical History Procedure Date ??? Cystourethroscopy 05/04/2005 Cysto and urethral dilation. Immunization History Name Date(s) Administered ??? Comvax (HIB/HepB) 2002, 2002, 03/26/2003 ? ? DTAP (<7y) 2002, 2002, 2002, 09/24/2003, 03/29/2007 ??? Hepatitis A 03/30/2006, 09/27/2006 ??? IPV 2002, 2002, 2002, 03/29/2007 ??? MMR 03/26/2003, 03/29/2007 ??? Prevnar (Ped. Pneumococcal) 2002, 2002, 2002 ??? Varicella 03/26/2003, 03/29/2007 No Known Allergies. VISION: For details see above, mildly abnormal, 20/40 each eye and both HEARING: For details see above, unable to test DAILY ACTIVITIES NUTRITION: good appetite, eats variety of foods SLEEP: No concerns, sleeps well through night ELIMINATION: Normal bowel movements, Normal urination and Toilet trained - day and night EXERCISE/ RECREATION: Age appropriate activities, Playground and Rides bike (helmet advised) ACTIVITIES: none TV/ MEDIA: >2 hours/ day DEVELOPMENT Milestones (by observation/ exam/ report. 75-90% ile): PERSONAL/ SOCIAL/COGNITIVE: Dresses without help Plays board games Plays cooperatively with others, some difficulty with personal space Some aggressiveness, usually not intentional, will shove kids out of the way to get somewhere, etc. LANGUAGE: Knows 4 colors / counts to 10 Recognizes some letters Speech all understandable GROSS MOTOR: Balances 3 sec each foot Hops on one foot Skips Difficulty with ball handling skills Copy of IEP in chart. FINE MOTOR/ ADAPTIVE: Copies sycuan, + , square Draws person 3-6 parts Prints first name ROS GENERAL: See health history, nutrition and daily activities SKIN: No rash, hives or significant lesions HEENT: Hearing/vision: see above. No eye redness/discharge, nasal congestion, sneezing, snoring RESP: No cough, wheezing, SOB CV: No cyanosis, palpitations, syncope GI: See nutrition and elimination : See elimination MS: No swelling, arthralgia, weakness, gait problem NEURO: No headaches PSYCH: See development and behavior, or mental health. Lots of concerns with her immaturity, some abnormal behaviors such as sniffing. Still with some impulsiveness, aggressive, hitting. She was bitingbut that's becoming less. She sucks on her fingers. Is fidgety, restless. Poor visuo-spatial skills. EXAM GENERAL: Alert, well appearing, no distress SKIN: Clear. No significant rash, abnormal pigmentation or lesions HEAD: Normocephalic. EYES: Symmetric light reflex and no eye movement on cover/uncover test. Normal conjunctivae. Couldn't test fundi because she couldn't stare at the wall well. EARS: Normal canals. Tympanic membranes are normal; presley and translucent. NOSE: Normal without discharge. MOUTH/THROAT: Clear. No oral lesions. Teeth without obvious abnormalities. NECK: Supple, no masses. No thyromegaly. LYMPH NODES: No adenopathy LUNGS: Clear. No rales, rhonchi, wheezing or retractions HEART: Regular rhythm. Normal S1/S2. No murmurs. Normal pulses. ABDOMEN: Soft, non-tender, not distended, no masses or hepatosplenomegaly. Bowel sounds normal. GENITALIA: Not reexamined today. EXTREMITIES: Full range of motion, no deformities NEUROLOGIC: No focal findings. Cranial nerves grossly intact. She appears immature in her facial expressions and behavior. She is very fidgety. Sucks on her left 2nd and 3rd fingers. She can cooperate with exam, smiles continously. She pretends she is a cat, meows. She picks on her younger brother, starting fights with him. ASSESSMENT 1. Well child with concern for developmental delay PLAN Immunizations: Reviewed, up to date See other orders in [facility] Referrals/Ongoing Specialty care: Continue with neurology clinic and complete assessment for genetic/metabolic disorder. Dental visit recommended: Yes Urine for organic acids sent today. Will get high resolution chromosomes and fragile X testing at the time of her MRI under sedation. OK to proceed with MRI with sedation as planned. COpy of this report given to mom today. Will request copy of results and she should have f/u with neuro for discussion of results. Darby Harp MD [facility] ROS Physical Exam documented in this encounter Nursing Notes 12/16/2007 9:00 AM CDT >> TU CONWAY Fri December 16, 2007 9:11 AM Body mass index is 16.63 kg/(m^2). BP cuff size: NA (Not Taken) Last 1 Encounter BP Readings: Date: BP: 12/16/2007 94/58] Do you feel safe in your environment? Not asked Does the patient need any medication refills today? no documented in this encounter Plan of Treatment Not on filedocumented as of this encounter Procedures Procedure Name Priority Date/Time Associated Diagnosis Comme nts CREATININE, URINE Routine 12/16/2007 10:19 AM Res ults for this CDT procedure are i n the results section. CL AFF ORGANIC Routine 12/16/2007 10:19 AM Other Behavioral Re sults for this ACIDS, URINE CDT Problems procedure are i n the results section. documented in this encounter Results CREATININE, URINE (12/16/2007 10:19 AM CDT) athologist Signature Creatinine 28 mg/dL [facility] Urine [facility] Specimen Anatomical Collection Method Collection Time Receive d Time (Source) Location / / Volume Laterality 12/16/2007 10:19 12/16/2007 AM CDT 10:24 AM CDT Darby Harp MD LABORATORY Performing Organization Address City/State/ZIP Code Phon e Number [facility] [address] [place] [address] [facility] ORGANIC ACIDS, QT,UR, FULL (12/16/2007 10:19 AM CDT) Component Value Ref Test Analysis Performed At [facility] gist Range Method Time Signature 2-Keto Glutaric Negative 0 - 476 [facility] Urine ug/mg [facility] 2-Keto Isocaproic Negative 0 - 2 [facility] Urine ug/mg [facility] 2-OH Butyric Urine Negative 0 - 4 [facility] ug/mg [facility] 2-OH Glutaric Urine Negative 0 - 72 [facility] ug/mg [facility] 2-OH Isocaproic Negative 0 ug/mg [facility] Urine Cr [facility] 3ME Crotonylglyc Negative 0 ug/mg [facility] Urine Cr [facility] 3-OH 3ME Glutaric Negative 0 - 101 [facility] Urine ug/mg [facility] 3-OH Butyric Urine Negative 0 - 15 [facility] ug/mg [facility] 3-OH Glutaric Urine Negative 0 - 17 [facility] ug/mg [facility] 3-OH Isovaleric Negative 0 - 90 [facility] Urine ug/mg [facility] 3-OH Propionic Negative 0 - 45 [facility] Urine ug/mg [facility] 4-OH Butyric Urine Negative ug/mg [facility] Cr [facility] 5-OH Hexanoic Urine Negative ug/mg [facility] Cr [facility] 7-OH Octanoic Urine Negative ug/mg [facility] Cr [facility] Acetoacetic Urine Negative 0 - 6 [facility] ug/mg [facility] Adipic Urine Negative 0 - 29 [facility] ug/mg [facility] Citric Urine Negative 0 - [facility] 2477 [facility] Cr Ethylmalonic Urine Negative 0 - 21 [facility] ug/mg [facility] Fumaric Urine Negative 0 - 10 [facility] ug/mg [facility] Glutaric Urine Negative 0 - 11 [facility] ug/mg [facility] Glyceric Urine Negative ug/mg [facility] Cr [facility] Glyoxylic Urine Negative 0 - 59 [facility] ug/mg [facility] Hexanoylglycine Negative 0 ug/mg [facility] Urine Cr [facility] Isovalerylglyc Negative 0 - 16 [facility] Urine ug/mg [facility] Isocitric Urine Negative 0 - 285 [facility] ug/mg [facility] Lactic Urine Negative 0 - 132 [facility] ug/mg [facility] Methyl Citric Urine Negative 0 - 41 [facility] ug/mg [facility] Methyl Malonic Negative 0 - 14 [facility] Urine ug/mg [facility] N-Acetylaspartic Negative 0 - 80 [facility] Urine ug/mg [facility] Oxalic Urine Negative ug/mg [facility] Cr [facility] Phenylacetic Urine Negative 0 - 6 [facility] ug/mg [facility] Phenyllactic Urine Negative 0 ug/mg [facility] Cr [facility] Phenylpropglyc Negative 0 ug/mg [facility] Urine Cr [facility] Phenylpyruvic Urine Negative 0 ug/mg [facility] Cr [facility] Pyroglutamic Urine Negative 0 - 139 [facility] ug/mg [facility] P-OH Phenylacetic Negative 0 - 182 [facility] Urine ug/mg [facility] P-OH Phenyllactic Negative 0 - 15 [facility] Urine ug/mg [facility] P-OH Phenylpyruvic Negative 0 - 28 [facility] Urine ug/mg [facility] Propionylglycine Negative 0 ug/mg [facility] Urine Cr [facility] Pyruvic Urine Negative 0 - 40 [facility] ug/mg [facility] Sebacic Urine Negative 0 ug/mg [facility] Cr [facility] Suberic Urine Negative 0 - 19 [facility] ug/mg [facility] Suberylglycine Negative ug/mg [facility] Urine Cr [facility] Succinic Urine Negative 0 - 120 [facility] ug/mg [facility] Tiglyglycine Urine Negative ug/mg [facility] Cr [facility] Organic Acids Urine Interpretation [facility] Interpretation not requested by [facility] Specimen Anatomical Collection Method Collection Time Receive d Time (Source) Location / / Volume Laterality 12/16/2007 10:19 12/16/2007 AM CDT 10:24 AM CDT Darby Harp MD LABORATORY Performing Organization Address City/State/ZIP Code Phon e Number [facility] [address] [place] [address] [facility] documented in this encounter Visit Diagnoses Diagnosis Behavior disorder Unspecified disturbance of conduct Preop general physical exam Other specified pre-operative examinatio n Other behavioral problems documented in this encounter Care Teams Sign Shop Supervisor Relationship Specialty Start Date End Date Darby Harp MD PCP - General 03/25/05 11/14/14 [address] [facility] [place] [id number] documented as of this encounter
--- OUTSIDE RECORDS SUMMARY | 2022-04-23 23:51 | XMS_ITS | Encounter Summary ---
:2002 Author Organization [facility] Address [address] [place] [address] Care Team Providers Name Role Phone Darby Harp MD Primary Care Provider [phone] Encounter Details Date Type Department Care Team Description 06/13/2010 Hospital Encounter [facility] Trey Harp colleen [facility] MD Kendal [address] [place], [place] [phone] Social History Tobacco Use Types Packs/Day Years [...] do you attend protestant or Never 2018 mosque services? 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 1.2 Bicillin LA, one time only 1 mL 0 06/13/2010 08/27/2010 (BICILLIN L-A) 230737 UNIT/ML injection sodium fluoride Take 1 tablet by 100 tablet 3 06/13/2010 (FLUORIDE) 2.2 (1 F) MG mouth daily. per chewable tabletIndications: Routine or child health check documented as of this encounter Plan of Treatment Not on filedocumented as of this encounter Visit Diagnoses Not on filedocumented in this encounter Care Teams Graphite Grinder Relationship Specialty Start Date End Date Darby Harp MD PCP - General 03/25/05 11/14/14 9 [facility] [place] [id number] documented as of this encounter
--- OUTSIDE RECORDS SUMMARY | 2022-04-23 23:51 | XMS_ITS | Encounter Summary ---
:2002 Author Organization [facility] Address [address] [place] [address]. [place] [address] Care Team Providers Name Role Phone Darby Harp MD Primary Care Provider [phone] Encounter Details Date Type Department Care Team Description 01/23/2008 Medical Correspondence [facility] Amandeep, CONSULTATION - [facility] [address] [facility] & [id number] [place] [address] [id number] [place] [address] Social History Tobacco Use Types Packs/Day Years [...] do you attend shinto or Never 2018 presybeterian services? 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
--- OUTSIDE RECORDS SUMMARY | 2022-04-23 23:51 | XMS_ITS | Encounter Summary ---
:2002 Author Organization [facility] Address [address] [place] [address] Care Team Providers Name Role Phone Darby Harp MD Primary Care Provider [phone] Reason for Visit Reason Comments Flu Shot parent requested flu mist, d ad answered all questions. Encounter Details Date Type Department Care Team Description 05/03/2012 Allied Health/Nurse [facility] Flu Shot (parent Visit Clinic [place] requested flu mist, dad 919 [facility] [place]... [place] [address] Social History Tobacco Use Types [...] do you attend hindu or Never 2018 yazidi services? 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 Has the [...] a very stuffy nose. No A child with asthma or one or more episodes [...] an allergic reaction: YES Vaccine given by: Marcella Brown LPN. documented in this encounter Nursing Notes 05/03/2012 3:30 PM CDT >> MARCELLA Merida May 03, 2012 3:52 PM Prior to giving the flu mist, verified patient identity using patient's name and date of .Mellisa Brown LPN. documented in this encounter Plan of Treatment Not on filedocumented as of this encounter Visit Diagnoses Diagnosis Need for prophylactic vaccination and in oculation against influenza - Primary documented in this encounter Care Teams Photogrammetric Surveyor Relationship Specialty Start Date End Date Darby Harp MD PCP - General 03/25/05 11/14/14 [address] [place], [place] [address] documented as of this encounter
--- OUTSIDE RECORDS SUMMARY | 2022-04-23 23:51 | XMS_ITS | Encounter Summary ---
:2000 Author Organization [place] Address [address] [place] [address] Care Team Providers Name Role Phone Darby Harp MD Primary Care Provider Reason for Visit Reason Comments Well Child 11yr Encounter Details Date Type Department Care Team Description 06/02/2011 Office Visit [facility] Loyd, Routine in katty or child health check (Primary Dx); [facility] [place] Darby Edmonds, Chromosomal abnormality; [facility] ALVIN CORLEY Learning disability [place] [address] [address] [id number] [place] [address] (Wo rk) Social History Tobacco [...] do you attend mandaeism or Never 2018 muslim services? 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 documented as of this encounter Last Filed Vital Signs Vital Sign Reading Time Taken Comments Blood Pressure 90/60 06/02/2011 1:57 PM CASING MATERIAL WEIGHER Pulse 70 06/02/2011 1:57 PM CASING MATERIAL WEIGHER Temperature 36.9 ??C (98.4 ??F) 06/02/2011 1:57 PM CASING MATERIAL WEIGHER Respiratory Rate 14 06/02/2011 1:57 PM CASING MATERIAL WEIGHER Oxygen Saturation - - Inhaled Oxygen Concentration - - Weight 35.7 kg (78 lb 12 oz) 06/02/2011 1:57 PM CASING MATERIAL WEIGHER Height 142 cm (4' 7.9) 06/02/2011 1:57 PM CASING MATERIAL WEIGHER Body Mass Index 17.72 06/02/2011 1:57 PM CASING MATERIAL WEIGHER Body Mass Index Percentile 70.96 % 06/02/2011 1:57 PM CS T Growth Chart: CDC (Girls, 2-20 Years) documented in this encounter Progress Notes Caesar Ro - 06/02/2011 3:09 PM CST Screening Questionnaire for Pediatric Immunization Is the [...] No Immunization questionnaire answers were all negative. MNVFC doesn't apply on this patient Screening performed by Caesar Ro on 06/02/2011 at 3:09 PM. NG MATERIAL WEIGHER Caesar Ro - 06/02/2011 2:03 PM CST Mahi Faye is a 11 year old female here for a routine health maintenance visit, accompanied by her mother, father and brother. QUESTIONS/CONCERNS: wants ears checked, they frequently get plugged with wax and she can't hear verywell. She has the TV up very loud. She has had her hearing tested at school and they have never beennotified that she didn't pass. She is not having pain. FAMILY/ SOCIAL HISTORY Child lives with: mother, father and brother Recent family changes/social stressors: none noted Family History: No changes since last physical Language(s) spoken at home: Latvian ENVIRONMENTAL RISK ASSESSMENT Is your child around anyone who smokes? NO Booster seat/ seat belt? YES Bike/ sport helmet? YES TB exposure? NO Pets in the home? NO Guns/firearms in the home? YES, Trigger locks present? NO (Recommended) Water source: well water and filtered water CHICKEN POX HISTORY: Previously vaccinated with 2 doses of Varivax DEVELOPMENTAL/BEHAVIORAL SCREENING FORM: Form not used VISION Wears glasses? NO Right eye: 20/25 Left eye: 20/25 Both eyes: 20/25 HEARING Right Ear: 500 Hz: RESPONSE- on Level: 25 db 1000 Hz: RESPONSE- on Level: 20 db 2000 Hz: RESPONSE- on Level: 20 db 4000 Hz: RESPONSE- on Level: 20 db 6000 Hz: RESPONSE- on Level: 20 db 8000 Hz: RESPONSE- on Level: 25 db Left Ear: 500 Hz: RESPONSE- on Level: 25 db 1000 Hz: RESPONSE- on Level: 20 db 2000 Hz: RESPONSE- on Level: 20 db 4000 Hz: RESPONSE- on Level: 20 db 6000 Hz: RESPONSE- on Level: 20 db 8000 Hz: RESPONSE- on Level: 20 db REQUIRED VITAL SIGNS COMPLETED: yes BP 90/60 Pulse 70 Temp(Src) 98.4 ??F (36.9 ??C) (Tympanic) Resp 14 Ht 4' 7.9 (1.42 m) Wt 78 lb 12 oz (35.721 kg) BMI 17.72 kg/m2 89.47% of growth percentile based on ckinjxl-shx-onz. 81.70% of growth percentile based on [id number]-kov-mlf. 70.96% of growth percentile based on BMI-for-age. 10.8% systolic and 45.4% diastolic of BP percentile by age, sex, and height. Staff signature: Kaylie/[facility] HISTORY SINCE LAST VISIT No surgery, major illness or injury since last physical exam Immunization History Administered Date(s) Administered ??? Comvax (HIB/HepB) 2002, 2002, 03/26/2003 ? ? DTAP (<7y) 2002, 2002, 2002, 09/24/2003, 03/29/2007 ??? Hepatitis A 03/30/2006, 09/27/2006 ??? IPV 2002, 2002, 2002, 03/29/2007 ??? Influenza 05/22/2008, 06/10/2009, 04/11/2010, 05/04/2011 ??? Influenza (H1N1) 07/03/2009 ??? MMR 03/26/2003, 03/29/2007 ??? Pneumococcal (PCV 7) 2002, 2002, 2002 ??? Varicella 03/26/2003, 03/29/2007 Allergies Allergen Reactions ??? Nkda (No Known Drug Allergies) DAILY ACTIVITIES NUTRITION: good appetite, eats variety of foods, dairy/ calcium: skim milk, and cheese, meat, fruitsand vegetables SLEEP No concerns, sleeps well through night, bedtime: 8 and hours/night: 10-11 ELIMINATION Normal bowel movements and Normal urination EXERCISE/ RECREATION: Age appropriate activities, Playground and Rides bike (helmet advised) ACTIVITIES: none TV/ MEDIA: < 2 hours/ day and parental monitored programs EDUCATION Concerns: no School: [employer] Grade: 3rd MENTAL HEALTH Concerns: no, she is doing very well. VISION: For details see above, normal HEARING: For details see above, normal ROS GENERAL: See health history, nutrition and daily activities SKIN: No rash, hives or significant lesions HEENT: Hearing/vision: see above. No eye redness/discharge, some recent nasal congestion, no sneezing, snoring RESP: No cough, wheezing, SOB [...] muscles intact. Normal conjunctivae. EARS: Normal canals. I removed a small amount of wax from each ear canal, not completely plugged. Tympanic membranes are normal; presley and translucent. NOSE: Normal without discharge, but sounds congested. MOUTH/THROAT: Clear. No oral lesions. Teeth without [...] normal. Normal gait, strength and tone BACK: her back appears straight. On forward bending her right lateral curve at the waist is slightlyless than her left side of her waist, but there is no height difference in the lumbar or thoracic musculature or scapulae. No obvious scoliosis. EXTREMITIES: Full range of motion, no deformities : Exam deferred. ANTICIPATORY GUIDANCE The following topics were discussed: SOCIAL/ FAMILY: Praise for positive activities Encourage reading Limit / supervise TV/ media NUTRITION: Healthy snacks Family meals Calcium and iron sources Balanced diet HEALTH/ SAFETY: Physical activity Regular dental care Booster seat/ Seat belts Bike/sport helmets ASSESSMENT 1. Well child with normal growth and development 2. Immunizations PLAN Body mass index is 17.72 kg/(m^2). Immunizations See orders in EpicCare. Counseling provided regarding the benefits and risks related to the vaccinesordered today. I reviewed the signs and symptoms of adverse effects and when to seek medical care ifthey should arise. See other orders in EpicCare Referrals/Ongoing Specialty care: I don't think she has been back to the genetics clinic at [facility], but can f/u there prn. She is doing well with IEP in school. Dental visit recommended: Yes and Continue care every 6 months RTC: 12 year RHM visit, Will follow her scoliosis screening yearly at this stage. F/u sooner with any concerns. We discussed turning the TV down and getting used to a lower volume, see how she does. Can also try Zyrtec or benadryl prn for congestion. Darby Harp MD NG MATERIAL WEIGHER documented in this encounter Nursing Notes 06/02/2011 1:45 PM CST >> CAESAR DIEGOUGE Fuad Jun 02, 2011 3:09 PM Pt instructed to wait 20 min after giving injection. Pt was verified by using first and last name and before giving injection. K.Diegouge/RMA >> CAESAR DIEGOUGE Jakee Jun 02, 2011 2:04 PM Estimated Body mass index is 17.72 kg/(m^2) as calculated from the following: Height as of this encounter: 4' 7.9(1.42 m). Weight as of this encounter: 78 lb 12 oz(35.721 kg). BP Readings from Last 1 Encounters: 06/02/11 : 90/60] BP cuff size: regular Do you feel safe in your environment? Unable to answer Does the patient need any medication refills today? 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
--- OUTSIDE RECORDS SUMMARY | 2022-04-23 23:51 | XMS_ITS | Encounter Summary ---
:2002 Author Organization [place] Address [facility] [place] [address] Care Team Providers Name Role Phone Darby Harp MD Primary Care Provider Reason for Visit Reason Comments Ear Problem biltat ear pain x 1 day Encounter Details Date Type Department Care Team Description 10/18/2012 Office Visit [facility] Jeferson Peña [place] (Primary Dx); [facility] andreas Santana, WINDING RACK OPERATOR LEGAL ARBITRATOR Acute otitis media, bilateral [address] [place] [id number] Social History Tobacco Use Types Packs/Day Years [...] do you attend alevism or Never 2018 mosque services? 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 An ear infection is a bacterial infection of the middle ear (the space behind the eardrum). It usually is a complication of a cold. A cold blocks off the the tube that connects the middle ear to the back of the throat (the eustachian tube). Your child's ear is painful because trapped, infected fluid puts pressure on the eardrum, causing it to bulge. Other symptoms are irritability and poor sleep. Some children have trouble hearing. A few have dizziness. Most children will have at least one ear infection, and over one fourth of these children will have repeated ear infections. Children are most likely to have ear infections between the ages of 6 monthsand 2 years, but they continue to be a common childhood illness until the age of 8 years. In 5% to 10% of children, the pressure in the middle ear causes the eardrum to rupture and drain a yellow or cloudy fluid. This small hole usually heals over the next week. If the following treatment is carried out your child should be fine. Permanent damage to the ear or to the hearing is very rare. How can I take care of my child? Antibiotics (For mild ear infections, antibiotics may not be needed.) Your child's antibiotic is . Your child's dose is given ____ timesa day during waking hours for days. This medicine will kill the bacteria that are causing theear infection. Try not to forget any of the doses. If your child goes to school or a rn surgical, arrange for someone to give the afternoon dose. If the medicine is a liquid, store the antibiotic in the refrigerator and use a measuring spoon to be sure that you give the right amount. Give the medicine until the bottle is empty or all the pills are gone. (Do not save the antibiotic for the next illness because it loses its strength.) Even though your child will feel better in a few days, give the antibiotic until it is completely gone. Finishing the medicine will keep the ear infection from flaring up again. Pain relief Acetaminophen or ibuprofen can be used to help with the earache or fever over 102??F (39??C) for a few days until the antibiotic takes effect. These medicines usually control the pain within 1 to 2 hours. Earaches tend to hurt more at bedtime. To help ease the pain, you can put an ice bag or ice wrapped in a wet washcloth over the ear. This may decrease the swelling and pressure inside. Some providers recommend a heating pad instead. Remove the cold or heat in 20 minutes to prevent frostbite or a burn. Restrictions Your child can go outside and does not need to cover the ears. Swimming is okay as long as there is no perforation (tear) in the eardrum or drainage from the ear. Children with ear infections can travel safely by aircraft if they are taking antibiotics. Also give them a dose of ibuprofen 1 hour beforetake-off for any discomfort they might have. Most will not have an increase in their ear pain while flying. While coming down in elevation during a airline flight or a trip from the mountains, have your child swallow fluids, suck on a pacifier, or chew gum. Your child can return to school or day care when he or she is feeling better and the fever is gone. Ear infections are not contagious. Ear recheck Your child should be seen by the health care provider in 2 to 3 weeks. At that visit, the eardrum will be checked to make sure that the infection is cleared up and no more treatment is needed. Your health care provider may also want to test your child's hearing. Follow-up exams are very important, particularly if the infection has caused a hole in the eardrum. How can I help prevent ear infections? If your child has a lot of ear infections, it's time to look at how you can prevent some of them. The following list includes ways you can help your child prevent another ear infection. If some of the following items apply to your child, try to use them or talk to your health care provider about them. Protect your child from second-hand tobacco smoke. Passive smoking increases the frequency and severity of infections. Be sure no one smokes in your home or at day care. Reduce your child's exposure to colds during the first year of life. Most ear infections start with a cold. Try to delay the use of large day care centers during the first year by using a sitter in your home or a small home-based day care. Breast-feed your baby during the first 6 to 12 months of life. Antibodies in breast milk reduce the rate of ear infections. If you're breast-feeding, continue. If you're not, consider it with your nextchild. Avoid bottle propping. If you bottle-feed, hold your baby at a 45?? angle. Feeding in the horizontalposition can cause formula and other fluids to flow back into the eustachian tube. Allowing an infant to hold his own bottle also can cause milk to drain into the middle ear. Weaning your baby from a bottle between 9 and 12 months of age will help stop this problem. Control allergies. If your always has a runny nose, a milk allergy may be the problem. This is more likely if your child has other allergies such as eczema. Check the adenoids. If your toddler constantly snores or breaths through his mouth, he may have large adenoids. Large adenoids can lead to ear infections. Talk to your health care provider about this. When should I call my child's health care provider? Call IMMEDIATELY if: Your child develops a stiff neck. Your child acts very sick. Call during office hours if: The fever or pain is not gone after your child has taken the antibiotic for 48 hours. You have other questions or concerns. Copyright ?? 2006 [employer] and/or one of its subsidiaries. All Rights Reserved. documented in this encounter Progress Notes Jeferson Peña NP - 10/18/2012 3:04 PM CDT SUBJECTIVE: Maih Faye is a 12 year old female who presents with bilateral ear pain for 1 day(s). Severity: severe Timing:sudden onset Additional symptoms include cough, ear pain and rhinorrhea. History of recurrent otitis: no Past Medical History Diagnosis Date ??? 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 CONGEN URETHRAL STENOSIS 12/16/2005 Current Outpatient Prescriptions Medication Sig ??? NO ACTIVE MEDICATIONS ??? amoxicillin (AMOXIL) 400 MG/5ML suspension Take 12.5 mLs by mouth 2 times daily for 10 days. ??? antipyrine-benzocaine (AURODEX) 54-14 MG/ML SOLN Place 3 drops in ear(s) every 2 hours as needed. History Smoking status ??? Never Smoker Smokeless tobacco ??? Not on file ROS: Review of systems negative except as stated above. OBJECTIVE: Pulse 111 Temp(Src) 97.6 ??F (36.4 ??C) (Oral) Wt 87 lb 12.8 oz (39.826 kg) SpO2 100% The right TM is air/fluid interface, distorted light reflex and erythematous The right auditory canal is normal and without drainage, edema or erythema The left TM is air/fluid interface, distorted light reflex and erythematous The left auditory canal is normal and without drainage, edema or erythema Oropharynx exam is normal: no lesions, erythema, adenopathy or exudate. GENERAL: alert and moderate distress EYES: EOMI, PERRL, conjunctiva clear NECK: bilateral anterior cervical adenopathy RESP: lungs clear to auscultation - no rales, rhonchi or wheezes CV: regular rates and rhythm, normal S1 S2, no murmur noted ABDOMEN: soft, normal bowel sounds SKIN: no suspicious lesions or rashes ASSESSMENT: Acute otitis media, bilateral and Otalgia PLAN: amoxicillin (AMOXIL) 400 MG/5ML suspension, if not work will consider change to Augmentin ES. antipyrine-benzocaine (AURODEX) 54-14 MG/ML SOLN Acetaminophen or ibuprofen can be used to help with the earache or fever. Place warm moist hear or a heating pad on ear for comfort or in some cases cold may help with swelling or pressure. Remove the heat or cold in 10 to 20 minutes to prevent burn or frostbite. May return to school/daycare when feeling better and the fever is gone. Ear infections are not contagious. Swimming is okay as long as there is no perforation. Children should be seen by the health care provider in 2 to 3 weeks to assess resolution. Should also be seen if no improvement or worsening with in 48 hours. Jeferson Peña RN, MSN, PRESCHOOL DIRECTOR [facility] documented in this encounter Plan of Treatment Not on filedocumented as of this encounter Visit Diagnoses Diagnosis EAR PAIN - Primary Otalgia, unspecified Acute otitis media, bilateral Unspecified otitis media documented in this encounter Care Teams Selling Specialist Relationship Specialty Start Date End Date Darby Harp MD PCP - General 03/25/05 11/14/14 [address] [facility] [place] [id number] documented as of this encounter
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
--- OUTSIDE RECORDS SUMMARY | 2022-04-23 23:51 | XMS_ITS | Encounter Summary ---
:2002 Author Organization [place] Address [address] [place] [address] Care Team Providers Name Role Phone Darby Harp MD Primary Care Provider [phone] Reason for Visit Reason Comments Ear Problem R ear, jaw pain Nausea Encounter Details Date Type Department Care Team Description 08/13/2009 Office Visit [facility] Jeferson Peña EA R PAIN (Primary Dx); LEESA Santana APRN WHITE LEAD GRINDER Acute Otitis Media [address] [place] [address] [place], [place] [phone] [facility] Social History Tobacco Use Types Packs/Day [...] do you attend baptist or Never 2018 orthodox services? 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 documented as of this encounter Last Filed Vital Signs Vital Sign Reading Time Taken Comments Blood Pressure 120/70 08/13/2009 9:07 AM SPECIAL FORCES SPECIALIST Pulse 95 08/13/2009 9:07 AM SPECIAL FORCES SPECIALIST Temperature 37 ??C (98.6 ??F) 08/13/2009 9:07 AM SPECIAL FORCES SPECIALIST Respiratory Rate - - Oxygen Saturation 100% 08/13/2009 9:07 AM SPECIAL FORCES SPECIALIST Inhaled Oxygen Concentration - - Weight 28.9 kg (63 lb 12.8 oz) 08/13/2009 9:07 AM SPECIAL FORCES SPECIALIST Height - - Body Mass Index - - documented in this encounter Progress Notes Casey Jeferson - 08/13/2009 9:18 AM CST SUBJECTIVE: Mahi Faye is a 9 year old female who presents with right ear pain for 7 hours(s). Severity: severe Timing:sudden onset Additional symptoms include congestion, cough, rhinorrhea and cold symptoms over the past 9 days. History of recurrent otitis: no Past Medical History Diagnosis Date ??? 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 AMOXICILLIN 400 MG/5ML OR SUSR Take 13 ml by mouth 2 times a day for 10 days. ??? FLUORIDE 2.2 (1 F) MG OR CHEW 1 po daily History Tobacco Use Never ROS: Review of systems negative except as stated above. OBJECTIVE: BP 120/70 Pulse 95 Temp (Src) 98.6 ??F (37 ??C) (Tympanic) Wt 63 lb 12.8 oz (28.939 kg) [id number]% The right TM is distorted light reflex and erythematous The right auditory canal is normal and without drainage, edema or erythema The left TM is normal: no effusions, no erythema, and normal landmarks The left auditory canal is normal and without drainage, edema or erythema Oropharynx exam is normal: no lesions, erythema, adenopathy or exudate. GENERAL: alert and mild distress EYES: EOMI, PERRL, conjunctiva clear NECK: bilateral anterior cervical adenopathy RESP: lungs clear to auscultation - no rales, rhonchi or wheezes CV: regular rates and rhythm, normal S1 S2, no murmur noted ABDOMEN: soft, normal bowel sounds SKIN: no suspicious lesions or rashes ASSESSMENT: Acute otitis media, right and Otalgia PLAN: AMOXICILLIN 400 MG/5ML OR SUSR Acetaminophen or ibuprofen can be used to [...] in 48 hours. Jeferson Peña RN, MSN, HAND [facility] IAL FORCES SPECIALIST documented in this encounter Plan of Treatment Not on filedocumented as of this encounter Visit Diagnoses Diagnosis EAR PAIN - Primary Otalgia, unspecified Acute otitis media Unspecified otitis media documented in this encounter Care Teams Mobile Product Manager Relationship Specialty Start Date End Date Darby Harp MD PCP - General 03/25/05 11/14/[address] [facility] [place] [id number] documented as of this encounter
--- OUTSIDE RECORDS SUMMARY | 2022-04-23 23:51 | XMS_ITS | Encounter Summary ---
:2002 Author Organization [place] Address [address] [place] [address] Care Team Providers Name Role Phone Darby Harp MD Primary Care Provider [phone] Encounter Details Date Type Department Care Team Description 08/27/[address] [facility] Trey Harp colleen [facility] MD Kendal [address] [place], [place] [phone] Social History Tobacco Use Types Packs/Day Years [...] do you attend zoroastrianism or Never 2018 bahai services? 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 per chewable tabletIndications: Routine or child health check documented as of this encounter Plan of Treatment Not on filedocumented as of this encounter Visit Diagnoses Not on filedocumented in this encounter Care Teams Weight Loss Consultant Relationship Specialty Start Date End Date Darby Harp MD PCP - General 03/25/05 11/14/14 [address] [facility] [place] [id number] documented as of this encounter
--- OUTSIDE RECORDS SUMMARY | 2022-04-23 23:51 | XMS_ITS | Encounter Summary ---
:2002 Author Organization [place] Address [address] [place] [address] Care Team Providers Name Role Phone Darby Harp MD Primary Care Provider [phone] Encounter Details Date Type Department Care Team Description 01/23/2008 Medical Correspondence [facility] Abstract, CONSULTATION--[facility] Provider [facility] [address] [place], [place] [id number] Social History Tobacco Use Types Packs/Day Years [...] do you attend methodist or Never 2018 latter day services? 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
--- OUTSIDE RECORDS SUMMARY | 2022-04-23 23:52 | XMS_ITS | Encounter Summary ---
:2002 Author Organization [place] Address [address] [place] [address] Care Team Providers Name Role Phone Darby Harp MD Primary Care Provider [phone] Encounter Details Date Type Department Care Team Description 12/18/2005 Office Visit [facility] MOLINA Harp PROBLEMS NEC; [facility] Darby Edmonds, NONINFEC GASTROENTERIT NEC [address] [place] [address] [address] [facility] [phone] [place], [place] [address] (Wo rk) Social History [...] do you attend gnosticist or Never 2018 yazdanism services? 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 documented as of this encounter Last Filed Vital Signs Vital Sign Reading Time Taken Comments Blood Pressure 96/32 12/18/2005 8:00 AM CDT Pulse 116 12/18/2005 8:00 AM CDT Temperature 36.5 ??C (97.7 ??F) 12/18/2005 8:00 AM CDT Respiratory Rate 18 12/18/2005 8:00 AM CDT Oxygen Saturation - - Inhaled Oxygen Concentration - - Weight 19.7 kg (43 lb 8 oz) 12/18/2005 8:00 AM CDT Height 111.8 cm (3' 8) 12/18/2005 8:00 AM CDT Rvctcv-jqp-Jskyvu Percentile 62.15 % 12/18/2005 8:00 AM CDT Growth Chart: [facility] (Girls, 2-20 Years) Body Mass Index 15.8 12/18/2005 8:00 AM CDT Body Mass Index Percentile 62.70 % 12/18/2005 8:00 AM CD T Growth Chart: [facility] (Girls, 2-20 Years) documented in this encounter Progress Notes Darby Harp - 12/18/2005 9:00 AM CDT S: Mahi Faye is a 5 year old female brought in by mom who complains of her eating and licking strange things. She was recently seen by Dr. Maurice who recommended medical eval and ordered some stool samples and blood work. She is in to everything, she licks things and puts everything in her mouth. Mom states that she will lick the grocery cart at the store, or toys or people. She thinks it's funny. She hasn't been eating dirt or anything specific. She has had some loose stools. Mom was concerned that she might have caught an infection from putting things in her mouth. No blood, she otherwise seems healthy. This oral behavior has been going on for several months. Mom states that she does eat a healthy diet. Seems to be developing normally. She also drools, especially if she is concentrating on doing something, and sucks on her fingers a lot, instead of her thumb. O: Vitals noted. Patient alert, oriented, and in no acute distress. Ears: Canals clear, TM's nl bilaterally. No erythema or fluid. Eyes: PERRLA, EOMI. Conjunctivae white. Oral: Orophaynx nl without erythema, exudate, mass or other lesions. Her two top front teeth are developing outward as in an early overbite. She has some mildly crusty scabs on the face, nothing significant. Neck: Supple without lymphadenopathy, JVD or masses. CV: RRR without murmur. Respiratory: Lungs clear to auscultation bilaterally. Skin normal with exception of above. She does suck on her two fingers on left hand. Extremitieswarm and dry, moves all normally. Normal gait. Recent CBC, TSH are normal, lead pending. Stool cultures, Giardia and O&P are negative. A: Oral fixation Diarrhea, noninfectious P: I discussed with mom that this could be a normal stage for her, but does seem a little exaggerated and perhaps prolonged. I did discuss things like autism and other developmental and behavioral issues, but she doesn't appear to have anything else going on, and I think to say she has a developmentaldisorder at this point is going overboard. I tried to reassure mom that this should pass, and discussed ways to encourage changing her behavior, such as positive reinforcement for not licking things, and redirection. Will await the lead test, but concern is low. I don't think this is really PICA and she is not anemic, and mom is not concerned about nutritional deficiency as she is a good eater. We agr eed to just work on this and watch for the next couple weeks and see if she can make some headway onbehavior change. Will f/u sooner if anything else changes or other concerns arise. documented in this encounter Nursing Notes 12/18/2005 8:00 AM CDT >> ANUPAM NUÑEZ 12/18/2005 8:17 am Pt here today for recheck on pica. Body mass index is 15.79 kg/(m^2). BP cuff size: pediatric Do you feel safe in your environment? Unable to answer documented in this encounter Plan of Treatment Not on filedocumented as of this encounter Visit Diagnoses Diagnosis Other behavioral problems Other and unspecified noninfectious epifanio roenteritis and colitis(558.9) Other and unspecified noninfectious epifanio roenteritis and colitis documented in this encounter Care Teams Unit Aid Relationship Specialty Start Date End Date Darby Harp MD PCP - General 03/25/05 11/14/14 [address] [facility] [place] [id number] documented as of this encounter
--- OUTSIDE RECORDS SUMMARY | 2022-04-23 23:52 | XMS_ITS | Encounter Summary ---
:2002 Author Organization [place] Address [address] [place] [address] Care Team Providers Name Role Phone Darby Harp MD Primary Care Provider [phone] Reason for Visit Reason Comments Well Child 7yr Encounter Details Date Type Department Care Team Description [facility] Darby Edmonds, VACCINE DIS COMBINATIONS NEC ; [address] [facility] VACCINE FOR POLIOMYELITIS; [place] [address] [place] [address] VACCINE [id number]; [phone] [place], [place] [address] VACCINE FOR VARICELLA [phone] (Wo rk) Social History Tobacco Use Types [...] do you attend caodaism or Never 2018 alevism services? 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 documented as of this encounter Last Filed Vital Signs Vital Sign Reading Time Taken Comments Blood Pressure 96/50 03/29/2007 12:30 PM CDT Pulse 88 03/29/2007 12:30 PM CDT Temperature 36.7 ??C (98.1 ??F) 03/29/2007 12:30 PM CDT Respiratory Rate 18 03/29/2007 12:30 PM CDT Oxygen Saturation - - Inhaled Oxygen Concentration - - Weight 23.2 kg (51 lb 1.3 oz) 03/29/2007 12:30 PM CDT Height 116.8 cm (3' 10) 03/29/2007 12:30 PM CDT Afqtph-fxf-Rkcagh Percentile 80.70 % 03/29/2007 12:30 PM CDT Growth Chart: [facility] [place]s, 2-20 [place]) Body Mass Index 16.97 03/29/2007 12:30 PM CDT Body Mass Index Percentile 86.88 % 03/29/2007 12:30 PM C DT Growth Chart: [facility] [place]Girls, 2-20 Years) documented in this encounter Progress Notes Darby Harp - 03/29/2007 9:07 AM CDT Mahi Faye is an 7 year old female here for a routine health maintenance visit, accompanied by her mother. QUESTIONS/CONCERNS: yes- concerns for development. Her teacher has commented that there are some delays and some impulsive behaviors. She bites, pinches, kicks, spits. She also drools a lot. More noticeable when she is focusing on something, as if she forgets to swallow. She spits at times with her speech especially when she is excited about something. Mom also states she has sensory issues. She wants to touch everything, fidgety. Her eating habits are horrible, she is very messy. She licks her fooda lot, will mix a lot of foods together. Hasn't seemed to outgrow some more immature behaviors. Mom is very frustrated with this, feels like she can't parent her as easily, wants to know if there is anything she can do to help make things easier. She is working with social work therapist through the school district and will be undergoing psychiatric evaluation with testing for a diagnosis. Mom doesn't see any signs of autism, has done a lot of reading but still is concerned because she doesn't seem to be outgrowing this. Mom is working with the [employer] program. 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 Language(s) spoken at home: Samoan ENVIRONMENTAL RISK ASSESSMENT Is your child around anyone who smokes? NO Car seat/ Booster seat? YES Bike/sport helmet? YES TB exposure? NO Pets in the home? NO Guns/firearms in the home? YES, Trigger locks present? NO (Recommended) Water source: well water and filtered water CHICKEN POX HISTORY: Previously vaccinated DEVELOPMENTAL/Behavioral Screening form: Form not used VISION Wears glasses? NO Right eye: 20/20 Left eye: 20/20 Both eyes: 20/20 HEARING na REQUIRED VITAL SIGNS COMPLETED: yes BP 96/50 Pulse 88 Temp (Src) 98.1 (Tympanic) Resp 18 Ht 3' 10 (1.17m) Wt 51 lbs 1.3 oz (23.2kg) 96.56% of growth percentile based on mtcdpvr-wfq-dqk. 93.80% of growth percentile based on kfsbyd-waz-sco. 86.90% of growth percentile based on BMI-for-age. Staff signature: Reji HEALTH HISTORY SINCE LAST VISIT No surgery, major illness or injury since last physical exam Immunization History Name Date(s) Administered ??? Comvax (HIB/HepB) 2002, 2002, 03/26/2003 ? ? DTAP (<7y) 2002, 2002, 2002, 09/24/2003 ??? Hepatitis A 03/30/2006, 09/27/2006 ??? IPV 2002, 2002, 2002 ??? MMR 03/26/2003 ??? Prevnar (Ped. Pneumococcal) 2002, 2002, 2002 ??? Varicella 03/26/2003 No Known Allergies. VISION: For details see above, normal HEARING: For details see above, normal DAILY ACTIVITIES NUTRITION: good appetite, eats variety of foods, dairy/ calcium: skim milk, yogurt and cheese, meat,fruits and vegetables SLEEP: No concerns, sleeps well through night, bedtime: 8:30pm and hours/night: 10-12 ELIMINATION: Normal bowel movements, Normal urination and Toilet trained - day and night EXERCISE/ RECREATION: Age appropriate activities and Rides bike (helmet advised) ACTIVITIES: none TV/ MEDIA: >2 hours/ day and parental monitored programs DEVELOPMENT Milestones (by observation/ exam/ report. 75-90% ile): PERSONAL/ SOCIAL/COGNITIVE: Dresses without help Plays cooperatively with others LANGUAGE: Knows 4 colors / counts to 10 Recognizes some letters Most of her speech is understanable GROSS MOTOR: Balances 3 sec each foot Hops on one foot Skips FINE MOTOR/ ADAPTIVE: Copies [place], + , square ROS GENERAL: See health history, nutrition and daily activities SKIN: No rash, hives or significant lesions HEENT: Hearing/vision: see above. No eye redness/discharge, nasal congestion, sneezing, snoring RESP: No cough, wheezing, SOB CV: No cyanosis, palpitations, syncope GI: See nutrition and elimination : See elimination MS: No swelling, arthralgia, weakness, gait problem NEURO: No headaches PSYCH: See development and behavior, or mental health and see above re: developmental concerns. EXAM GENERAL: Alert, well appearing, no distress. She is very hyper and energetic. Seems a little immature in her speech tone and her behavior. For example, she turns the lights on and off several times despite being told not to by myself and her mother, and smiles all the while like she doesn't realize itis wrong. She keeps repeating 5 shots! In an excited voice, despite being told that she is getting only 4 shots. Asks why there aren't 3 doctors in here. Fusses when her 3 year old brother gets to color before she does. She doesn't seem to do these things intentionally to act out, just doesn't seem toget it when I talk to her. SKIN: Clear. No significant rash, abnormal pigmentation [...] DTR's normal. Normal gait, strength and tone ANTICIPATORY GUIDANCE The following topics were discussed: SOCIAL/ FAMILY: Positive discipline Dealing with anger/ acknowledge feelings Reading Kindergarten readiness Outdoor activity/ physical play NUTRITION: Avoid power struggles Family mealtime HEALTH/ SAFETY: Dental care Sexuality education Bike/ sport helmet Proceeding with developmental assessment, see below. ASSESSMENT 1. Well child with normal growth and development 2. Immunizations 3. Developmental delay PLAN Immunizations: See orders in EpicCare. Counseling provided regarding the benefits and risks related to the vaccines ordered today. I reviewed the signs and symptoms of adverse effects and when to seek medical care if they should arise. See other orders in EpicCare Referrals/Ongoing Specialty care: Mom has the numbers to proceed with developmental testing. She will keep me posted on what she has done and anything she needs from me in terms of referrals and such. I am suspicious that she has a pervasive developmental delay or mild form of autism. Dental visit recommended: Yes RTC: 6-7 year [facility] visit Darby Harp MD documented in this encounter Nursing Notes 03/29/2007 12:30 PM CDT >> CAESAR ROJAS 03/29/2007 1:37 pm Pt instructed to wait 20 min. >> CAESAR ROJAS 03/29/2007 12:41 pm Current outpatient prescriptions: FLUORIDE 1.1 (0.5 F) MG OR CHEW, 1 chewed daily, Disp: 100, Rfl: 1year Pt is established to our clinic. Body mass index is 16.98 kg/(m^2). BP cuff size: pediatric Last 1 BP Readings: Date: BP: 03/29/2007 96/50] Do you feel safe in your environment? Not asked Does the patient need any medication refills today? No SX: 7yr wcc documented in this encounter Plan of Treatment Not on filedocumented as of this encounter Visit Diagnoses Diagnosis Routine or child health check - P rimary Need for prophylactic vaccination and in oculation against other combinations of diseases Need for prophylactic vaccination and in oculation against poliomyelitis Need for prophylactic vaccination with m fxcrxt-gadde-egsepmz (MMR) vaccine Need for prophylactic vaccination and in oculation against varicella documented in this encounter Care Teams Business Lawyer Relationship Specialty Start Date End Date Darby Harp MD PCP - General 03/25/05 11/14/14 [address] [facility] [place] [id number] documented as of this encounter
--- OUTSIDE RECORDS SUMMARY | 2022-04-23 23:52 | XMS_ITS | Encounter Summary ---
:2000 Author Organization [facility] Address [address] [place] [address] Care Team Providers Name Role Phone Unavailable Primary Care Provider Unavailable Reason for Visit Reason Comments Derm Problem Encounter Details Date Type Department Care Team Description 01/29/2005 Office Visit [facility] Valerie Baker SKIN DISORDERS NEC (Primary Dx); [facility] S, PA-C VIRAL EXANTHEMATA NOS [address] [facility] [place] [address] [place] [address] [address] [place] [address] Social History Tobacco Use Types Packs/Day Years [...] do you attend uatsdin or Never 2018 temple services? 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 Last Filed Vital Signs Vital Sign Reading Time Taken Comments Blood Pressure - - Pulse 112 01/29/2005 10:50 AM CDT Temperature 36.4 ??C (97.5 ??F) 01/29/2005 10:50 AM CDT Respiratory Rate 18 01/29/2005 10:50 AM CDT Oxygen Saturation - - Inhaled Oxygen Concentration - - Weight 16.7 kg (36 lb 12.8 oz) 01/29/2005 10:50 AM CDT Height 98.4 cm (3' 2.75) 01/29/2005 10:50 AM CDT Bgarnt-cjb-Vtnlxn Percentile 86.94 % 01/29/2005 10:50 AM CDT Growth Chart: [facility] (Girls, 2-20 Years) Body Mass Index 17.23 01/29/2005 10:50 AM CDT Body Mass Index Percentile 84.25 % 01/29/2005 10:50 AM C DT Growth Chart: [facility] (Girls, 2-20 Years) documented in this encounter Progress Notes MisaValerie dixon S - 01/29/2005 3:48 PM CDT SUBJECTIVE: Mahi is a 4 year old female who presents to the clinic today for a rash. Onset of rash was this morning. Location of the rash: generalized. Associated symptoms include: no itching, scaling, pain or wheezing. Child did have vomiting without fever 4 days ago, but has been playful last 3 days with normal appetite, BM's, UA, and sleep. No fevers noted although mom states may have been warm. Symptoms appear to be stable. Therapies tried to improve the rash: none. Recent new medication? no Previous history of a similar rash? no Recent exposure history: none known Previous Medical History: None on file No Known Allergies. Current outpatient prescriptions: POLYVITAMIN FLUORIDE 0.25 MG/ML OR SOLN, 1 dropperful (.25 mg) by mouth daily, Disp: 1 month supply, Rfl: 1 year OBJECTIVE: Pulse 112 Temp (Src) 97.5 (Tympanic) Resp 18 Ht 3' 2.75 (0.98m) Wt 36 lbs 12.8 oz (16.7kg) EXAM: This patient appears in alert,no apparent distress distress. Rash description: Location: generalized Distribution: generalized Lesion grouping: circular Lesion type: macular - does pau with pressure. Color: pink HEENT: NORMAL - no erythema, no adenopathy, no exudates. NECK: no adenopathy RESP: Normal - CTA without rales, rhonchi, or wheezing. CARDIAC: NORMAL - regular rate and rhythm without murmur. ABD: soft, non-tender. Normal bowel sounds all four quadrants. No organomegaly. No rebound or guarding noted on exam. Assessment: SKIN DISORDERS NEC VIRAL EXANTHEMATA NOS Plan: Watch for signs of fever or worsening of the rash. Discussed etiology. Mother will let me know if worsening. documented in this encounter Nursing Notes 01/29/2005 10:50 AM CDT >> BIRGTI LANGFORD 01/29/2005 11:06 am Rash since this am all over. Body Mass Index is 17.24 kg/(m^2). BP cuff size: NA (Not Taken) Desired level of pain: 0 Do you feel safe in your environment? Not asked Tobacco use verified/completed today in Social History? Yes documented in this encounter Plan of Treatment Not on filedocumented as of this encounter Procedures Procedure Name Priority Date/Time Associated Comments Diagnosis HCL BETA STREP Routine 01/29/2005 12:00 PM Skin Disorders Nec Results for this CONFIRM CDT procedure are i n the results section. HCL STREP GROUP A AG Routine 01/29/2005 12:00 PM Skin Disorder s Nec Results for this (RAPID) CDT procedure are i n the results section. HC VENOUS COLLECTION Routine 01/29/2005 11:40 AM Skin Disorder s Nec CDT CL AFF CBC WITH Routine 01/29/2005 11:36 AM Skin Disorders Nec Results for this PLATELETS, DIFF CDT procedure ar e in the results section. documented in this encounter Results BETA STREP CONFIRM (01/29/2005 12:00 PM CDT) Component Value Ref Test Analysis Performed At [facility] Range Method Time Signature Specimen Throat [place] Description [facility] Culture Micro No growth Beta [place] hemolytic [facility] Streptococcus [facility] group A Report status FINAL [id number] [facility] Specimen Anatomical Collection Method Collection Time Receive d Time (Source) Location / / Volume Laterality 01/29/2005 12:00 01/29/2005 PM CDT 12:16 PM CDT Valerie Baker PA-C LABORATORY Performing Organization Address City/State/ZIP Code Phon e Number M [facility] [address] [place], [place] [address] [facility] STREP GROUP A AG (RAPID) (01/29/2005 12:00 PM CDT) Component Value Ref Test Analysis Performed At [facility] [place] Link Range Method Time Signature Specimen Throat [facility] Rapid Strep A NEGATIVE: No Group A strepto coccal antigen detected by immunoassay, await [place] Screen culture report. [facility] Report status FINAL [id number] [facility] Specimen Anatomical Collection Method Collection Time Receive d Time (Source) Location / / Volume Laterality 01/29/2005 12:00 01/29/2005 PM CDT 12:16 PM CDT Valerie Baker PA-C LABORATORY Performing Organization Address City/State/ZIP Code Phon e Number M [facility] [address] [place] [address] [facility] (ABNORMAL) CBC WITH [place]ATE[place], DIFF (01/29/2005 11:36 AM CDT) [facility] Method Time Signature WBC 7.9 5.0 - [place] 17.5 [facility] 10e9/L [facility] RBC Count 4.69 3.7 - 5.3 [place] 10e12/L [facility] Hemoglobin 11.5 10.5 - [place] 14.0 g/dL [facility] Hematocrit 35.7 31.5 - [place] 43.0 % [facility] MCV 76 70 - 100 [facility] MCH 24.4 (L) 26.5 - [place] 33.0 pg [facility] MCHC 32.1 32.0 - [place] 36.0 g/dL [facility] RDW 11.1 10.0 - [place] 15.0 % [facility] Platelet Count 286 150 - 450 [place] 10e9/L [facility] Diff Method Automated [facility] % Neutrophils 63 (H) 15 - 44 % [facility] % Lymphocytes 26 (L) 45 - 76 % [facility] % Monocytes 5 0 - 10 % [facility] % Eosinophils 5 0 - 6 % [facility] % Basophils 1 0 - 1 % [facility] Absolute 5.0 0.8 - 7.7 [place] Neutrophil 10e9/L [facility] Absolute 2.0 (L) 2.3 - [place] Lymphocytes 13.3 [facility] 10e9/L [facility] Absolute 0.4 0.0 - 1.1 [place] Monocytes 10e9/L [facility] Absolute 0.4 0.0 - 0.7 [place] Eosinophils 10e9/L [facility] Absolute 0.1 0.0 - 0.2 [place] Basophils 10e9/L [facility] Specimen Anatomical Collection Method Collection Time Receive d Time (Source) Location / / Volume Laterality 01/29/2005 11:36 01/29/2005 AM CDT 11:41 AM CDT Valerie Baker PA-C LABORATORY Performing Organization Address City/State/ZIP Code Phon e Number M [facility] [address] [place], [place] [address] [facility]ENTER [facility] documented in this encounter Visit Diagnoses Diagnosis Other specified disorder of skin - Prima ry Viral exanthem, unspecified documented in this encounter
--- OUTSIDE RECORDS SUMMARY | 2022-04-23 23:52 | XMS_ITS | Encounter Summary ---
:2000 Author Organization [place] Address [address] [place] [address] Care Team Providers Name Role Phone Unavailable Primary Care Provider Unavailable Reason for Visit Reason Comments Abstract TRANSFERRED RECORDS FROM [facility] Encounter Details Date Type Department Care Team Description 02/02/2005 Abstract [facility] Talat Galindo TRANSFERRED RECORDS Clinic [address] [place] [address] Social History Tobacco Use Types Packs/Day Years [...] do you attend christian or Never 2018 gnosticism services? 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 2 week [facility] 2002 ....... 2 month [facility] 2002 ....... 4 month [facility] 2002 ....... 6 month [facility] 2002 ....... OM 2002 ....... OM, Mild contact rash 2002 ....... Resolved OM 2002 ....... Flattened head 2002 ....... 9 month [facility] 03/26/2003 ....... 12 month [facility] 04/05/2003 ....... Pharyngitis 05/10/2003 ....... Febrile illness 06/25/2003 ....... 15 month [facility] 09/24/2003 ....... 18 month [facility] 10/22/2003 ....... Conjunctivitis 10/23/2003 ....... Conjunctivitis 03/25/2004 ....... 4 year [facility] documented in this encounter Plan of Treatment Not on filedocumented as of this encounter Visit Diagnoses Not on filedocumented in this encounter
--- OUTSIDE RECORDS SUMMARY | 2022-04-23 23:52 | XMS_ITS | Encounter Summary ---
:2000 Author Organization [facility] Address [address] [place] [address] Care Team Providers Name Role Phone Darby Harp MD Primary Care Provider [phone] Reason for Visit Reason Comments Well Child 6yr Encounter Details Date Type Department Care Team Description [facility] HILD HEALTH EXAM (Primary Dx); [facility] Darby Edmonds, VACCINE FOR VIRAL HEPATITIS [address] [place] [address] [address] [facility] [phone] [place], [place] [address] (Wo rk) Social History [...] do you attend catholic or Never 2018 taoism services? 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 Last Filed Vital Signs Vital Sign Reading Time Taken Comments Blood Pressure 90/58 03/30/2006 10:00 AM CDT Pulse 90 03/30/2006 10:00 AM CDT Temperature 36.3 ??C (97.4 ??F) 03/30/2006 10:00 AM CDT Respiratory Rate 16 03/30/2006 10:00 AM CDT Oxygen Saturation - - Inhaled Oxygen Concentration - - Weight 20 kg (44 lb 1.3 oz) 03/30/2006 10:00 AM CDT Height 109.9 cm (3' 7.25) 03/30/2006 10:00 AM CDT Tmwqxt-mcf-Xmreaa Percentile 77.39 % 03/30/2006 10:00 AM CDT Growth Chart: [facility] (Girls, 2-20 Years) Body Mass Index 16.57 03/30/2006 10:00 AM CDT Body Mass Index Percentile 81.55 % 03/30/2006 10:00 AM C DT Growth Chart: [facility] (Girls, 2-20 Years) documented in this encounter Progress Notes Caesar Ro - 03/29/2006 11:48 AM CDT Mahi Faye is an 6 year old female here for a routine health maintenance visit, accompanied by her father. QUESTIONS/CONCERNS: fluroide-how long to be on it and needs it refilled. 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 NO Car seat/ booster seat? YES Bike/sport helmet? YES TB exposure? NO Pets in the home? YES dog Guns/firearms in the home? YES, Trigger locks present? YES Water source: well water CHICKEN POX HISTORY: Previously vaccinated DEVELOPMENTAL/Behavioral Screening form: Form not used VISION Child unable to perform vision test HEARING na REQUIRED VITAL SIGNS COMPLETED: yes BP 90/58 Pulse 90 Temp (Src) 97.4 (Tympanic) Resp 16 Ht 3' 7.25 (1.10m) Wt 44 lbs 1.3 oz (20.0kg) 97.67% of growth percentile based on dccqzhj-vfc-rce. 93.97% of growth percentile based on gvyndp-hvo-hmy. 81.52% of growth percentile based on BMI-for-age. Staff signature: Kaylie/[facility] HISTORY SINCE LAST VISIT No surgery, major illness or injury since last physical exam Immunization History Name Date(s) Administered ??? Comvax (HIB/HepB) 2002, 2002, 03/26/2003 ??? DTaP 2002, 2002, 2002, 09/24/2003 ??? IPV 2002, 2002, 2002 ??? MMR 03/26/2003 ??? Prevnar (Ped. Pneumococcal) 2002, 2002, 2002 ??? Varicella 03/26/2003 No Known Allergies. DAILY ACTIVITIES NUTRITION: good appetite, eats variety of foods, dairy/ calcium: skim milk, yogurt and cheese, meat,fruits and vegetables SLEEP: No concerns, sleeps well through night, bedtime: 9 and hours/night: 10-12 ELIMINATION: Normal bowel movements, Normal urination and Toilet trained - day and night EXERCISE/ RECREATION: Age appropriate activities TV/ MEDIA: < 2 hours/ day and parental monitored programs DEVELOPMENT Milestones (by observation/ exam/ report. 75-90% ile): PERSONAL/ SOCIAL/COGNITIVE: Plays with other children Says name and age Mom helps with dressing LANGUAGE: Counts 5 or more objects Knows 4 colors Speech all understandable GROSS MOTOR: Balances 2 sec each foot Hops on one foot Runs/ climbs well FINE MOTOR/ ADAPTIVE: Copies tangirnaq, + Cuts paper with small scissors VISION: For details see above, normal HEARING: [...] The following topics were discussed: SOCIAL/ FAMILY: Kindergarten readiness Outdoor activity/ physical play Sibling interaction NUTRITION: Healthy food choices HEALTH/ SAFETY: Dental care Bike/ sport helmet [facility] [address] crossing Know name and address ASSESSMENT 1. Well child with normal growth and development 2. Immunizations PLAN Immunizations: See orders in EpicCare. Counseling provided regarding the benefits and risks related to the vaccines ordered today. I reviewed the signs and symptoms of adverse effects and when to seek medical care if they should arise. [facility] Referrals/Ongoing Specialty care: No Dental visit recommended: YES RTC: 5 y [facility]HM visit REfilled fluoride. REturn for Hep A #2 in 6 months. documented in this encounter Nursing Notes 03/30/2006 10:00 AM CDT >> CAESAR RO 03/30/2006 10:15 am Current outpatient prescriptions: POLYVITAMIN FLUORIDE 0.25 MG/ML OR SOLN, 1 dropperful (.25 mg) by mouth daily, Disp: 1 month supply, Rfl: 1 year Pt is established to our clinic. Body mass index is 16.55 kg/(m^2). BP cuff size: pediatric Do you feel safe in your environment? Not asked Check if medication refills are needed SX: 6yr wcc documented in this encounter Plan of Treatment Not on filedocumented as of this encounter Visit Diagnoses Diagnosis Routine infant or child health check - P rimary Need for prophylactic vaccination and in oculation against viral hepatitis documented in this encounter Care Teams Director Corporate Security Relationship Specialty Start Date End Date Darby Harp MD PCP - General 03/25/05 11/14/[address] [place] [place] [address] documented as of this encounter
--- OUTSIDE RECORDS SUMMARY | 2022-04-23 23:52 | XMS_ITS | Encounter Summary ---
:2000 Author Organization [facility] Address [address] [place] [address] Care Team Providers Name Role Phone Darby Harp MD Primary Care Provider [phone] Reason for Visit Reason Comments Pre-Op Exam Encounter Details Date Type Department Care Team Description 05/01/2005 Office Visit [facility] Valerie Baker PREOP EXAM OTHER [facility] SCAESAR-C SPECIFIED (Primary Dx) [address] [facility] [place] [address] [place] [address] [place] [id number] Social History Tobacco Use Types Packs/Day Years [...] do you attend anabaptism or Never 2018 christianity services? 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 Last Filed Vital Signs Vital Sign Reading Time Taken Comments Blood Pressure 94/58 05/01/2005 8:45 AM CDT Pulse 114 05/01/2005 8:45 AM CDT Temperature 36.4 ??C (97.5 ??F) 05/01/2005 8:45 AM CDT Respiratory Rate 18 05/01/2005 8:45 AM CDT Oxygen Saturation - - Inhaled Oxygen Concentration - - Weight 17.7 kg (39 lb 1.3 oz) 05/01/2005 8:45 AM CDT Height 102.9 cm (3' 4.5) 05/01/2005 8:45 AM CDT Soxhfi-vva-Jqmabd Percentile 81.14 % 05/01/2005 8:45 AM CDT Growth Chart: [facility] (Girls, 2-20 Years) Body Mass Index 16.75 05/01/2005 8:45 AM CDT Body Mass Index Percentile 78.67 % 05/01/2005 8:45 AM CD T Growth Chart: [facility] (Girls, 2-20 Years) documented in this encounter Progress Notes Birgit Davis - 05/01/2005 9:09 AM CDT PREOPERATIVE [place] [address] PATIENT HEALTH QUESTIONNAIRE NAME: Mahi Squires Neyda; : 2000 Date of Surgery: 05-04-05 Procedure: urethral repair for malformation Place of Surgery: [facility]; Surgeon: Dr. Pino Primary Provider: Dr. Harp Phone number to reach patient on day of surgery: [phone] HISTORY Pt. or any family member with prolonged bleeding, abnormal bleeding after surgery or dental extractions, bruise easily: no Any problems with blood pressure or heart: no Any trouble with breathing or taking medication for breathing: no Any loose teeth, false teeth, dentures, bridges, or capped teeth: no Any seizures, convulsions, blackout spells or headaches: no Any jaundice, hepatitis or blood transfusion reactions: no ANESTHESIA Patient or any blood relatives with a reaction to local or general anesthetic: no MEDICATIONS Any Aspirin compounds in last 2 weeks: yes - Motrin Within last year any cortisone, steroids or ACTH: no Any Medications for: Heart: no Lungs: no Diabetes: no Kidney: no Blood Pressure: no Any tranquilizers or nerve pills in last two weeks: no Any Herbal supplements: no HEALTH CARE DIRECTIVE Do you have a Health Care Directive or Living Will: no List the name of someone that can speak on patient's behalf if patient unable to do so: Eleanor- mother Questions answered by: Eleanor; Relationship: mother Answers documented by RLZ/TRAVEL JOURNALIST PRE-OP EXAM: May 01, 2005 BP 94/58 Pulse 114 Temp (Src) 97.5 (Tympanic) Resp 18 Ht 3' 4.5 (1.03m) Wt 39 lbs 1.3 oz (17.7kg) PRESENT HISTORY: Reason for admission: urinary stream abnormal Onset of Illness: few months Type of Surgery Anticipated: urethral repair of malformation Type of Anesthesia Anticipated: General MEDICATIONS Active Medications as of 05/01/2005: POLYVITAMIN FLUORIDE 0.25 MG/ML OR SOLN^ 1 dropperful (.25 mg) by mouth daily^ Disp: 1 month supply^Rfl: 1 year PROBLEM LIST - There is no problem list on file for this patient. FAMILY HISTORY: No family history on file No family history of malignant hyperthermia. No family history of bleeding disorder. No history of Sleep Apnea SOCIAL HISTORY Tobacco Use: Never Drug Use: Not on file PAST MEDICAL HISTORY: Previous Medical History: None on file PAST SURGICAL HISTORY: There is no previous surgical history on file. ALLERGIES: No Known Allergies. IMMUNIZATIONS: Immunization History: Comvax (HIB/HepB) 2002 2002 03/26/2003 DTaP 2002 2002 2002 09/24/2003 IPV 2002 2002 2002 MMR 03/26/2003 Prevnar (Ped. Pneumococcal) 2002 2002 2002 Varicella 03/26/2003 Transfusion reactions: No prior transfusions Bleeding tendencies:No bleeding problems noted Does patient wear dentures? no REVIEW OF SYSTEMS Constitutional: NEGATIVE for fever, chills, change in weight ENT/Mouth: NEGATIVE for ear, mouth and throat problems- recent OM no symptoms now Cardiovascular: NEGATIVE for chest pain, palpitations or peripheral edema Respiratory: NEGATIVE for significant cough or SOB Gastrointestinal: NEGATIVE for nausea, abdominal pain, heartburn, or change in bowel habits Genitourinary: unusual urinary stream Musculoskeletal: NEGATIVE for significant arthralgias or myalgia Integumentary: NEGATIVE for worrisome rashes, moles or lesions Endocrine: NEGATIVE for temperature intolerance, skin/hair changes Hematologic/Lymphatic: NEGATIVE for bleeding problems Allergic/Immunologic: NEGATIVE for allergies PHYSICAL EXAM: General Appearance: healthy, alert and no distress Head: Normocephalic. No masses, lesions, tenderness or abnormalities Eyes: normal Ears: External ears normal. Canals clear. TM's normal. Nose: Nares normal Mouth: Lips, mucosa, and tongue normal. Teeth and gums normal. Neck: Neck supple. No adenopathy. Thyroid symmetric, normal size, Lymphatics: Cervical and inguinal nodes normal for age. Chest: Clear to auscultation Breast: Not done. Heart:regular rate and rhythm and no murmurs, clicks, or gallops Lungs: negative, Percussion normal. Good diaphragmatic excursion. Lungs clear Abdomen: Abdomen soft, non-tender. BS normal. No masses, organomegaly Genitals: Deferred Extremities: Extremities normal. No deformities, edema, or skin discoloration. Musculoskeletal: Spine ROM normal. Muscular strength intact. Skin: Skin color, texture, turgor normal. No rashes or lesions. Neurological: Gait normal. Reflexes normal and symmetric. Sensation grossly WNL. Diabetic Instructions Given for Pre-Op Insulin: NOT APPLICABLE COMMENTS: Healthy IMPRESSION: Patient approved for anesthesia and procedure as planned above. Electronically signed by Valerie Baker PA-C on May 01, 2005. documented in this encounter Nursing Notes 05/01/2005 8:45 AM CDT >> BIRGIT DAVIS 05/01/2005 9:09 am Body Mass Index is 16.74 kg/(m^2). BP cuff size: pediatric Do you feel safe in your environment? Unable to answer Tobacco use verified/completed today in Social History? yes documented in this encounter Plan of Treatment Not on filedocumented as of this encounter Visit Diagnoses Diagnosis Other specified pre-operative examinatio n - Primary documented in this encounter Care Teams Bobbin Collector Relationship Specialty Start Date End Date Darby Harp MD PCP - General 03/25/05 11/14/14 [address] [place], [place] [address] documented as of this encounter
--- OUTSIDE RECORDS SUMMARY | 2022-04-23 23:52 | XMS_ITS | Encounter Summary ---
:2002 Author Organization [place] Address [address] [place] [address] Care Team Providers Name Role Phone Darby Harp MD Primary Care Provider [phone] Reason for Referral Consultation (Routine) - Denied Specialty Diagnoses / Procedures Referred By Contact Refer red To Contact Psychology Diagnoses Other behavioral problems Darby Harp MD [address] [place] [address] AN[place] [address] Referral ID Status Reason Start Date Expiration Date Visits Requ ested Visits Authorized [id number] Denied 02/18/2007 07/18/2011 1 0 Reason for Visit Reason Onset Date Comments Referral 02/04/2007 Encounter Details Date Type Department Care Team Description 02/04/2007 Telephone [facility] Darby Harp [facility] MD Kendal [address] [place] [address] [place] [address] [facility] [place] [id number] (Wo rk) Social History Tobacco Use Types [...] do you attend hinduism or Never 2018 hindu services? 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 Pt's parents are suppose to call and schedule appt. Pt's mom given # to [facility] operations logistics analyst, Mahi ([phone]) to schedule. Telephone Encounter - Celine Flores - 02/09/2007 11:28 AM CDT [facility] called back They are booked out 6 months. Spoke w/pt's mom. It isn't just anautism eval she wants done, a behavorial assesement. Lt message with [facility] ([phone]) to see if she can be scheduled there. [facility] called back, they do not see children for this. Given main # to [facility] children ), supposedly they see children for behavioral assesments. Lt message for Maxine to call me back. Telephone Encounter - Celine Flores - 02/09/2007 9:13 AM CDT [facility]. They are not taking any new patients now. Called the [facility] they are booked out a year. Left a message at [facility] ([phone]) they are suppose to call back today or tomorrow. Telephone Encounter - Darby Harp - 02/08/2007 4:52 PM CDT This is fine to refer her to [facility] depending on any insurance restrictions. Will ask CTA to address and assist with referral. Please find out where she can go for eval for autism. Telephone Encounter - Delaney Ro - 02/04/2007 4:08 PM CDT I talked to Eleanor, mom, tested for screening for 3.5yrs old. Did have concerns for her development. She is in pre-school, Maneul Morrow is the specialist with school that has been working with Mahi. Her phone # is [phone] . Psychology came to school and observe her too, he states just keep up with the discipline. She is very mean to her brother, hard time following rules, directions. Mom states she is constantly touching things, spits,hits,kicks, pinching. Mom has tried time outs, spanking, talking to her, yelling. Nothing is helping. Mom needs help. Is coming for her well child Mar 23. Still has a drooling problem, is constantly being told to swallow. [facility] and this would be her 1st choice. Telephone Encounter - Darby Harp - 02/04/2007 3:50 PM CDT Delaney, please get more info from mom about what her specific concerns are so i can know what she needs. Telephone Encounter - Delaney Ro - 02/04/2007 2:33 PM [employer] message copied by DELANEY RO on 02/04/2007 at 2:33 PM ------ Message from: JONATHAN COLE Created: 02/04/2007 at 2:06 PM Regarding: KA=referral Contact: Dr Oscar Ponce would like a referral to have testing done on Mahi for autism. Thanks, CD/CSS documented in this encounter Plan of Treatment Not on filedocumented as of this encounter Visit Diagnoses Diagnosis Other behavioral problems - Primary documented in this encounter Care Teams Hydrotel Operator Relationship Specialty Start Date End Date Darby Harp MD PCP - General 03/25/05 11/14/14 [address] [facility] [place] [address] documented as of this encounter
--- OUTSIDE RECORDS SUMMARY | 2022-04-23 23:52 | XMS_ITS | Encounter Summary ---
:2002 Author Organization [place] Address [address] [place] [address] Care Team Providers Name Role Phone Darby Harp MD Primary Care Provider [phone] Encounter Details Date Type Department Care Team Description 07/06/2005 Office Visit [facility] Yonas Pino S pecialist No Charges [facility] [address] [facility] [address] [place] [address] (Wo rk) Social History Tobacco Use Types [...] do you attend yazidi or Never 2018 restorationist services? 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
--- OUTSIDE RECORDS SUMMARY | 2022-04-23 23:52 | XMS_ITS | Encounter Summary ---
:2002 Author Organization [place] Address [address] [place] [address] Care Team Providers Name Role Phone Unavailable Primary Care Provider Unavailable Encounter Details Date Type Department Care Team Description 09/26/2004 Telephone [facility] Darby Harp [facility] MD Kendal [address] [place] [place] [address] [place], [place] [id number] (Wo rk) Social History Tobacco Use Types [...] do you attend islam or Never 2018 nondenominational services? 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 The level in their water is 0.175. Based on her age of 4 and this level, she needs fluoride supplement of .25 mg/day. this is ordered as above. DOOR REPAIRER documented in this encounter Plan of Treatment Not on filedocumented as of this encounter Visit Diagnoses Not on filedocumented in this encounter
--- OUTSIDE RECORDS SUMMARY | 2022-04-23 23:52 | XMS_ITS | Encounter Summary ---
:2002 Author Organization [place] Address [address] [place] [address] Care Team Providers Name Role Phone Darby Harp MD Primary Care Provider [phone] Reason for Visit Reason Comments Well Child Encounter Details Date Type Department Care Team Description 03/25/2005 Office Visit [facility] Betito Mccurdy [facility] EXAM (Primary Dx) [address] [facility] [address] [facility] [place] [address] [place] [address] [phone] (Wo rk) Social History Tobacco Use Types [...] do you attend voodoo or Never 2018 shinto services? 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 documented as of this encounter Last Filed Vital Signs Vital Sign Reading Time Taken Comments Blood Pressure 94/60 03/25/2005 10:30 AM CDT Pulse 88 03/25/2005 10:30 AM CDT Temperature 35.9 ??C (96.6 ??F) 03/25/2005 10:30 AM CDT Respiratory Rate 20 03/25/2005 10:30 AM CDT Oxygen Saturation - - Inhaled Oxygen Concentration - - Weight 17.1 kg (37 lb 12 oz) 03/25/2005 10:30 AM CDT Height 100.3 cm (3' 3.5) 03/25/2005 10:30 AM CDT Hwkyth-lhj-Rlfgvb Percentile 84.65 % 03/25/2005 10:30 AM CDT Growth Chart: [facility] (Girls, 2-20 Years) Body Mass Index 17.01 03/25/2005 10:30 AM CDT Body Mass Index Percentile 82.27 % 03/25/2005 10:30 AM C DT Growth Chart: [facility] (Girls, 2-20 Years) documented in this encounter Progress Notes Evelia Alvarado - 03/25/2005 10:42 AM CDT Mahi Faye is a 5 year old female here for 5 year well child exam. Name of Informant: Garland. Relationship to child: mother and father Text Transcriber Present: No; Language Salvadorean VISION: (Mandatory at age 5) Vision concerns: No Glasses: NO Results: Right Eye attempted, uncooperative; Left eye attempted, uncooperative; Both eyes attempted,uncooperative; Without corrective lenses. HEARING: (Mandatory if high risk and/or failed screen) Hearing concerns: No Audiometric test: Not done CHILD HEALTH HISTORY Parental concerns: No Recent injury/illness/surgery/hospitalizations: No History of chicken pox: Previously vaccinated No Known Allergies. Current outpatient prescriptions: POLYVITAMIN FLUORIDE 0.25 MG/ML OR SOLN 1 dropperful (.25 mg) by mouth daily Previous Medical History: None on file No family history on file Social History: lives with mother, father and brother DAILY ACTIVITIES Nutrition (variety/misses meals/wt concern): No Concerns Milk: skim, 18-20 ounces per 24 hours Water Source: city water and well water Sleep: bedtime 10 pm; awakens 8 am; naps: Yes, 2 hour(s) per day Dental(brushing): Yes Exercise: Active Recreation: TV - 1-2 hours per day Preschool: is not in preschool. Daycare: does not attend daycare. Active community supports/resources: ECFE Mental Health/Behavior Risks: No Concerns Observation of parent/child interaction: Appropriate Other: DEVELOPMENT: Assessment by observation/exam/parent report. PERSONAL/SOCIAL COGNITIVE *Knows name, age & sex: Yes *Washes and dries hands: Yes *Brushes teeth with help: Yes *Puts on T-shirt: Yes LANGUAGE *Names 4 pictures (demonstrate): Yes *Points to 6 body parts (Point to your nose...): Yes *Speech more than 1/2 understandable: Yes GROSS MOTOR *Throws ball overhand: Yes *Jumps up: Yes *Balances each foot 1 second (Demonstrate): Yes FINE MOTOR/ADAPTIVE: *Stacks 8 or more objects/toys: Yes *Imitates vertical line (Draw a line like this-Demonstrate): Yes Initials: Evelia Alvarado CMA Environmental Risks Assessed: Lead risk, Alcohol use in house/bldg., Smokers in house/bdlg, Guns in house/bldg., Housing inadequate, Drug use in house/bldg, TB exposure, Domestic violence and Violence/rape IDENTIFIED RISKS: None REVIEW OF SYSTEMS HEENT: Normal Skin (rashes): Normal CV (activity level): Normal Resp (wheezing): Normal GI (vomiting/stools): Normal (pain on voiding/urinary stream): Normal Neuromuscular (coordination, gait, balance): Normal Remainder of review of systems (unlisted): Normal PHYSICAL EXAM Payor: PREFERRED ONE Plan: [facility] ADMIN SERV OPEN ACCESS Product Type: PPO CAT Physical: NO; [place] VAC Candidate: NO Visual Screen: Noncompliant Hearing Screen: Not performed BP 94/60 Pulse 88 Temp (Src) 96.6 (Axillary) Resp 20 Ht 3' 3.5 (1.00m) Wt 37 lbs 12.0 oz (17.1kg) GENERAL: Alert, vigorous, well nourished, well developed, no acute distress. SKIN: skin is clear, no rash, abnormal pigmentation or lesions HEAD: The head is normocephalic. The fontanels and sutures are normal EYES: The eyes are normal. The conjunctivae and cornea normal. Light reflex is symmetric and no eye movement on cover/uncover test EARS: The external auditory canals are clear and the tympanic membranes are normal; presley and translucent. NOSE: Clear, no discharge or congestion MOUTH/THROAT: The throat is clear, no oral lesions NECK: The neck is supple and thyroid is normal, no masses LYMPH NODES: No adenopathy LUNGS: The lung perdomo are clear to auscultation,no rales, rhonchi, wheezing or retractions HEART: The precordium is quiet. Rhythm is regular. S1 and S2 are normal. No murmurs. ABDOMEN: The umbilicus is normal. The bowel sounds are normal. Abdomen soft, non tender, non distended, no masses or hepatosplenomegaly. NEUROLOGIC: Normal tone throughout. Has normal and symmetric reflexes for age MS: Symmetric extremities no deformities. Spine is straight, no scoliosis. Normal muscle strength. ASSESSMENT Well Child with normal growth & development: YES PLAN ANTICIPATORY GUIDANCE - Topics Discussed HEALTHY HABITS: Limit TV, safety: matches/poisons/guns, safety: water/playground/stranger, safety: car seat, safety: car seat/seat belt/bike helmet, sucking habits, family meals/healthy meals & snacks, adequate sleep/physical activity, curiosity about sex, use correct terms, infection risk reduction and eliminate lead risks. SOCIAL COMPETENCE: Individual attention, praise, talking, interactive reading, socialization, choices, limits, time out and help with fears. FAMILY RELATIONSHIPS: Affection, sibling relationships, listen, respect, interest in activities, role model healthy habits and preparation for new baby. IMMUNIZATIONS Are immunization on schedule? up to date Immunization History: Comvax (HIB/HepB) 2002 2002 03/26/2003 DTaP 2002 2002 2002 09/24/2003 IPV 2002 2002 2002 MMR 03/26/2003 Prevnar (Ped. Pneumococcal) 2002 2002 2002 Varicella 03/26/2003 Previous reaction? No Immunizations ordered/given: None - No immunizations due. LABORATORY TESTS: (Blood Lead if never tested; UA optional) There were no lab tests ordered today. ADDITIONAL PLAN(S) None Recommended dental visit: Yes Schedule 4 year preventive visit documented in this encounter Plan of Treatment Not on filedocumented as of this encounter Visit Diagnoses Diagnosis Routine or child health check - P rimary documented in this encounter Care Teams Design Manager Relationship Specialty Start Date End Date Darby Harp MD PCP - General 03/25/05 11/14/14 [address] [facility] [address] [place], [place] [address] documented as of this encounter
--- OUTSIDE RECORDS SUMMARY | 2022-04-23 23:52 | XMS_ITS | Encounter Summary ---
:2002 Author Organization [place] Address [address] [place] [address] Care Team Providers Name Role Phone Darby Harp MD Primary Care Provider [phone] Reason for Visit Reason Comments Eye Problem Encounter Details Date Type Department Care Team Description [facility]/17[facility] Darby Edmonds, NOS (Primary Dx) [address] [place] [address] [address] [facility] [phone] [place] [address] Social History Tobacco Use Types [...] do you attend hoahaoism or Never 2018 mormon services? 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 documented as of this encounter Last Filed Vital Signs Vital Sign Reading Time Taken Comments Blood Pressure 90/58 07/17/2005 1:45 PM TOUCH UP PAINTER Pulse 110 07/17/2005 1:45 PM TOUCH UP PAINTER Temperature 37 ??C (98.6 ??F) 07/17/2005 1:45 PM TOUCH UP PAINTER Respiratory Rate 22 07/17/2005 1:45 PM TOUCH UP PAINTER Oxygen Saturation - - Inhaled Oxygen Concentration - - Weight 18.2 kg (40 lb 1.9 oz) 07/17/2005 1:45 PM TOUCH UP PAINTER Height 102.9 cm (3' 4.5) 07/17/2005 1:45 PM TOUCH UP PAINTER Jknpqw-gtq-Encjda Percentile 86.67 % 07/17/2005 1:45 PM TOUCH UP PAINTER Growth Chart: [facility] (Girls, 2-20 Years) Body Mass Index 17.2 07/17/2005 1:45 PM TOUCH UP PAINTER Body Mass Index Percentile 87.31 % 07/17/2005 1:45 PM CS T Growth Chart: [facility] (Girls, 2-20 Years) documented in this encounter Progress Notes Darby Harp - 07/17/2005 4:55 PM CST S: Mahi Faye is a 5 year old female brought in by mother who complains of bilateral red eyes for 3 days. Otherwise well, no fever. No complaints of pain, but small amount mattering. O: Vitals noted. Patient alert, playful, content, and in no acute distress. Ears: Canals clear, TM'snl bilaterally. No erythema or fluid. Eyes: bilateral conjunctival injection without drainage. EOMI.No edema. Oral: Orophaynx nl without erythema, exudate, mass or other lesions. Neck: Supple without l ymphadenopathy, JVD or masses. CV: RRR without murmur. Respiratory: Lungs clear to auscultation bilaterally. A: ACUTE CONJUNCTIVITIS NOS P: Discussed supportive cares at length. Discussed viral nature and course of illness. Use warm water washcloth, avoid touching eyes, use good handwashing to avoid spread. May use saline or artificial tears prn. May attend school/daycare. Discussed signs and symptoms of bacterial infection. I did enter Rx. in case it lasts more than 7-10 days or starts to look more purulent, but will hold off treatment for now. F/U with any other concerns. H UP PAINTER documented in this encounter Nursing Notes 07/17/2005 1:45 PM CST >> CAESAR ROJAS 07/17/2005 1:51 pm Current outpatient prescriptions: POLYVITAMIN FLUORIDE 0.25 MG/ML OR SOLN, 1 dropperful (.25 mg) by mouth daily, Disp: 1 month supply, Rfl: 1 year Pt is established to our clinic. Pt was verified by using first and last name and . Estimated Body Mass Index is 17.19 kg/(m^2) as calculated from: Height of 3' 4.5 (1.029m) as of 05/01/05 Weight of 40 lbs 1.9 oz (18.198 kg) as of this encounter BP cuff size: pediatric Do you feel safe in your environment? Unable to answer Tobacco use verified/completed today in Social History? yes SX: eyes red,junk coming out x 3 days. documented in this encounter Plan of Treatment Not on filedocumented as of this encounter Visit Diagnoses Diagnosis Acute conjunctivitis, unspecified - Prim aaliyah documented in this encounter Care Teams Yard Coupler Relationship Specialty Start Date End Date Darby Harp MD PCP - General 03/25/05 11/14/14 [address] [facility] [place] [id number] documented as of this encounter
--- OUTSIDE RECORDS SUMMARY | 2022-04-23 23:52 | XMS_ITS | Encounter Summary ---
:2002 Author Organization [place] Address [address] [place] [address] Care Team Providers Name Role Phone Darby Harp MD Primary Care Provider [phone] Encounter Details Date Type Department Care Team Description 04/27/2005 Office Visit [facility] Yonas Pino S pecialist No Charges [facility] [address] [facility] [address] [place] [address] (Wo rk) Social History [...] do you attend restoration or Never 2018 baptist services? 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
--- OUTSIDE RECORDS SUMMARY | 2022-04-23 23:52 | XMS_ITS | Encounter Summary ---
:2002 Author Organization [place] Address [address] [place] [address] Care Team Providers Name Role Phone Darby Harp MD Primary Care Provider [phone] Reason for Visit Reason Onset Date Comments Refill Request 10/14/2005 Encounter Details Date Type Department Care Team Description 10/14/2005 Refill [facility] Bowen Mccurdy MD Refill Request [address] [place], [place] [address] [place] [address] [phone] Social History Tobacco Use Types Packs/Day Years [...] do you attend restoration or Never 2018 anabaptist services? 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 AGENT Telephone Encounter - Leisa Whitney - 10/14/2005 3:04 PM CST Last OV: 07/17/05 Last refill: 09/26/04 AGENT documented in this encounter Plan of Treatment Not on filedocumented as of this encounter Visit Diagnoses Not on filedocumented in this encounter Care Teams Physical Design Engineer Relationship Specialty Start Date End Date Darby Harp MD PCP - General 03/25/05 11/14/[address] [facility] [address] [place], [place] [address] documented as of this encounter
--- OUTSIDE RECORDS SUMMARY | 2022-04-23 23:52 | XMS_ITS | Encounter Summary ---
:2002 Author Organization [place] Address [address] [place] [address] Care Team Providers Name Role Phone Darby Harp MD Primary Care Provider Reason for Referral Consultation (Routine) - Closed Specialty Diagnoses / Procedures Referred By Contact Refer red To Contact Urology Diagnoses Urinary sys symptom NEC Valerie Baker PA-C [place] [facility] [address] [facility] [address] [place] [address] Referral ID Status Reason Start Date Expiration Date Visits Requ ested Visits Authorized [id number] Closed 04/16/2005 07/18/2011 1 1 Reason for Visit Reason Comments Fever Nose Problem Encounter Details Date Type Department Care Team Description 04/16/2005 Office Visit [facility] Valerie Baker RY SYS SYMPTOM NEC (Primary Dx); [facility] KARIN Figueroa ACUTE SUPP OTITIS MEDIA NOS; [address] [facility] ONCOLOGY ACUTE [place] [address] [address] [facility] [phone] 100 [place] [address] Social History Tobacco Use Types [...] do you attend orthodox or Never 2018 yarsanism services? 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 documented as of this encounter Last Filed Vital Signs Vital Sign Reading Time Taken Comments Blood Pressure - - Pulse 96 04/16/2005 11:00 AM CDT Temperature 36.4 ??C (97.6 ??F) 04/16/2005 11:00 AM CDT Respiratory Rate 18 04/16/2005 11:00 AM CDT Oxygen Saturation - - Inhaled Oxygen Concentration - - Weight 15.9 kg (35 lb 1.9 oz) 04/16/2005 11:00 AM CDT Height 106 cm (3' 5.75) 04/16/2005 11:00 AM CDT Yjgfgb-qqy-Qqmxsw Percentile 17.67 % 04/16/2005 11:00 AM CDT Growth Chart: CDC (Girls, 2-20 Years) Body Mass Index 14.17 04/16/2005 11:00 AM CDT Body Mass Index Percentile 7.43 % 04/16/2005 11:00 AM C DT Growth Chart: CDC (Girls, 2-20 Years) documented in this encounter Progress Notes Valerie Baker - 04/16/2005 11:24 AM CDT SUBJECTIVE: Mahi is a 5 year old female presenting with decreased appetite, ear pain bilateral, fever, nasal discharge clear and sore throat. Onset of symptoms was 4 days ago. Course of illness is worsening. Treatment measures tried include fluids and OTC meds. Predisposing factors include none. Secondly mother is concerned about Mahi's urinary stream. She is toilet training and mother feelsthat her stream tends to go straight out to the front of the toilet rather than down into the toilet. No dysuria or other problems. Mother has only just noticed this with her toilet training. No previous UTI. No Known Allergies. Previous Medical History: None on file Active Medications as of 04/16/2005: AMOXICILLIN 400 MG/5ML OR SUSR^ 1.5 tsp twice daily for 10 days^ Disp: qs^ Rfl: 0 There is no previous surgical history on file. OBJECTIVE: Pulse 96 Temp (Src) 97.6 (Tympanic) Resp 18 Ht 3' 5.75 (1.06m) Wt 35 lbs 1.9 oz (15.9kg) General appearance: alert and no apparent distress Skin color is pink. No rashes noted. Hydration status appears adequate with normal skin turgor and moist mucous membranes. HEENT: Conjunctiva are not injected without discharge. Left TM is distorted light reflex and erythematous. Right TM is distorted light reflex and erythematous. Nasal mucosa is discharge clear and inflamed. Oropharyngeal exam is normal: no lesions, erythema, adenopathy or exudate. LYMPH: Neck is supple with no adenopathy CARDIAC:NORMAL - regular rate and rhythm without murmur. RESP: Normal - CTA without rales, rhonchi, or wheezing. ABD: soft, non-tender. Normal bowel sounds all four quadrants. No organomegaly. No rebound or guarding noted on exam. Exam of genitalia is normal. Urethral orifice appears normal. ASSESSMENT: URINARY SYS SYMPTOM NEC ACUTE SUPP OTITIS MEDIA NOS ACUTE URI MULT SITES NEC PLAN: OTC decongestant/antihistamine Follow up with senior wind energy consultant as planned. Referral to urology done today. Orders Placed This Encounter: CONSULT NL UROLOGY AMOXICILLIN 400 MG/5ML OR SUSR documented in this encounter Nursing Notes 04/16/2005 11:00 AM CDT >> BIRGIT LANGFORD 04/16/2005 10:59 am Tempature for days and nasal congestion, nasal drainage has been yellow. Body Mass Index is 14.18 kg/(m^2). BP cuff size: NA (Not Taken) Do you feel safe in your environment? Unable to answer Tobacco use verified/completed today in Social History? yes documented in this encounter Plan of Treatment Not on filedocumented as of this encounter Visit Diagnoses Diagnosis Urinary sys symptom NEC - Primary Other symptoms involving urinary system Acute suppurative otitis media without s pontaneous rupture of eardrum Acute upper respiratory infections of ot her multiple sites documented in this encounter Care Teams Professor Of Theology Relationship Specialty Start Date End Date Darby Harp MD PCP - General 03/25/05 11/14/14 [address] [facility] [address] [place], [place] [id number] documented as of this encounter
--- OUTSIDE RECORDS SUMMARY | 2022-04-23 23:52 | XMS_ITS | Encounter Summary ---
:2002 Author Organization [place] Address [address] [place] [address] Care Team Providers Name Role Phone Darby Harp MD Primary Care Provider [phone] Encounter Details Date Type Department Care Team Description 05/04/2005 Operative Report [facility] Yonas Fairbanks, ([employer]) [facility] [address] [facility] 200 [place] [address] (Wo rk) Social History [...] do you attend zoroastrianism or Never 2018 anabaptism services? 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 POST-OPERATIVE DIAGNOSIS:1) Urethral meatal stenosis. 2) Follicular cystitis. OPERATION:Cysto and urethral dilation. OPERATIVE NOTE: Informed consent was obtained from the patient's parents. The patient was brought to the Operating Room and given general anesthesia, placed in the supine position with legs frogleg, and sterile prep and drape were applied. Examination revealed a somewhat small appearing urethral meatus. Pediatric cystoscope was inserted, revealed some mild inflammation of the proximal urethra. The bladder interior showed good capacity; however, she did have follicular cystitis. Position and configuration of the ureteral orifices were normal. Bladder was drained and the instruments were removed. The urethra was dilated up to 16 Thai. 10 cc of Viscous Lidocaine was then injected into the urethra for postoperative analgesia. The patient tolerated the procedure well and there were no complications. Will place her on Nitrofurantoin suspension 25 mg every p.m. for 1 month. She was also given Tylenol 3 P.R.N. for pain. We will see her again in 2 months time for follow-up. YONAS FAIRBANKS MD [place]: mjj Document: [id number] [place], [place] Name: MR#: BETH MORALES -[id number] 05/04/2005 OPERATIVE REPORT Page 2 of 1 LCN: ASHLEY DSC: 05/04/2005 [facility] Name: MR#: BETH MORALES [id number] 05/04/2005 : Procedure Date: 2002 05/04/2005 OPERATIVE REPORT Page 1 of 1 documented in this encounter Plan of Treatment Not on filedocumented as of this encounter Visit Diagnoses Not on filedocumented in this encounter Care Teams Ticket Puller Relationship Specialty Start Date End Date Darby Harp MD PCP - General 03/25/05 11/14/14 [address] [facility] [place] [address] documented as of this encounter
--- OUTSIDE RECORDS SUMMARY | 2022-04-23 23:52 | XMS_ITS | Encounter Summary ---
:2002 Author Organization [place] Address [facility] [place] [address] Care Team Providers Name Role Phone Darby Harp MD Primary Care Provider [phone] Encounter Details Date Type Department Care Team Description 12/17/[address] 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 documented in this encounter Plan of Treatment Not on filedocumented as of this encounter Procedures Procedure Name Priority Date/Time Associated Diagnosis Comme nts OVA AND PARASITES Routine 12/17/2005 12:02 PM Pica Results for this CDT Diarrhea Nos procedure are i n the results section. HCL GIARDIA STOOL Routine 12/17/2005 10:19 AM Pica Results for this ANTIGEN CDT Diarrhea Nos procedure are i n the results section. CULTURE FOR ENTERIC Routine 12/16/2005 12:01 PM Diarrhea Nos R esults for this PATHOGENS CDT procedure are i n the results section. OVA AND PARASITES Routine 12/15/2005 10:27 AM Diarrhea N os Results for this CDT Pica procedure are i n the results section. documented in this encounter Results OVA AND PARASITES (12/17/2005 12:02 PM CDT) Component Value Ref Test Analysis Performed At [facility] [employer] Range Method Time Signature Specimen Feces [facility] LABS Parasite Routine parasitology exam negative [facility] Routine Specimen received in preservative [facility] Report status FINAL [id number] [facility] Specimen Anatomical Collection Method Collection Time Receive d Time (Source) Location / / Volume Laterality 12/17/2005 12:02 12/17/2005 PM CDT 12:22 PM CDT Yaneth Maurice MD LABORATORY Performing Organization Address City/[facility]/ZIP Code Phon e Number [facility] [address] LABS GIARDIA ANTIGEN (12/17/2005 10:19 AM CDT) [facility] Method Time Signature Specimen Feces [facility] LABS Giardia Antigen Negative for [facility] Test Giardia [facility] LABS specific antigen by immunoassay. Report status FINAL [facility] [id number] [facility] Specimen Anatomical Collection Method Collection Time Receive d Time (Source) Location / / Volume Laterality 12/17/2005 10:19 12/17/2005 AM CDT 12:19 PM CDT Yaneth Maurice MD LABORATORY Performing Organization Address City/State/ZIP Code Phon e Number [facility] [address] LABS CULTURE FOR ENTERIC PATHOGENS (12/16/2005 12:01 PM CDT) Component Value Ref Test Analysis Performed At [facility] Method Time Signature Specimen Feces [facility] LABS Culture Micro No Salmonella, [facility] Shigella, [place] Campylobacter or [place] LABS E coli 0:157 isolated. Report status FINAL [id number] [facility] LABS Specimen Anatomical Collection Method Collection Time Receive d Time (Source) Location / / Volume Laterality 12/16/2005 12:01 12/17/2005 PM CDT 12:21 PM CDT Yaneth Maurice MD LABORATORY Performing Organization Address City/State/ZIP Code Phon e Number [facility] [address] [place] [address] [facility] LAB[facility] OVA AND PARASITES (12/15/2005 10:27 AM CDT) Component Value Ref Test Analysis Performed At [facility] Range Method Time Signature Specimen Feces [facility] Description [facility] Parasite Routine parasitology exam negative [facility] Routine Specimen received in preservative [facility] Report status FINAL [id number] [facility] Specimen Anatomical Collection Method Collection Time Receive d Time (Source) Location / / Volume Laterality 12/15/2005 10:27 12/15/2005 AM CDT 12:27 PM CDT Yaneth Maurice MD LABORATORY Performing Organization Address City/State/ZIP Code Phon e Number [facility] [address] [place] [address] [facility] documented in this encounter Visit Diagnoses Diagnosis Pica Diarrhea documented in this encounter Care Teams Streetcar Motorman Relationship Specialty Start Date End Date Darby Harp MD PCP - General 03/25/05 11/14/14 [address] [facility] [place] [address] documented as of this encounter
--- OUTSIDE RECORDS SUMMARY | 2022-04-23 23:52 | XMS_ITS | Encounter Summary ---
:2002 Author Organization [place] Address [address] [place] [address] Care Team Providers Name Role Phone Darby Harp MD Primary Care Provider [phone] Reason for Visit Reason Comments Diarrhea c/o interm. diarrhea for marianela gordon 2 wks Encounter Details Date Type Department Care Team Description 12/16/[address] [facility], Yaneth SHAIKH; [facility] MD Leon DIARRHEA NOS; [address] [facility] ALLMASON SENIOR DIAGNOSIS [place] [address] TRANSITIONS [phone] [facility] HOLLY PETERSON [address] [address] (Wo rk) Social History Tobacco Use Types [...] do you attend yarsanism or Never 2018 tenriism services? 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 Last Filed Vital Signs Vital Sign Reading Time Taken Comments Blood Pressure 98/58 12/16/2005 12:30 PM CDT Pulse 96 12/16/2005 12:30 PM CDT Temperature 36.1 ??C (96.9 ??F) 12/16/2005 12:30 PM CDT Respiratory Rate 16 12/16/2005 12:30 PM CDT Oxygen Saturation - - Inhaled Oxygen Concentration - - Weight 19.3 kg (42 lb 8 oz) 12/16/2005 12:30 PM CDT Height 111.8 cm (3' 8) 12/16/2005 12:30 PM CDT Yrioho-pzy-Spvcvp Percentile 53.27 % 12/16/2005 12:30 PM CDT Growth Chart: CDC (Girls, 2-20 Years) Body Mass Index 15.43 12/16/2005 12:30 PM CDT Body Mass Index Percentile 51.22 % 12/16/2005 12:30 PM C DT Growth Chart: CDC (Girls, 2-20 Years) documented in this encounter Progress Notes Yaneth Fajardo - 12/24/2005 12:56 PM CDT Quick Note: Please inform Mom that her lead level was also normal. See previous note for stool results which were neg. Yaneth Fajardo M.D. Yaneth Fajardo - 12/19/2005 8:22 AM CDT Professor Of History accepted by YANETH FAJARDO on 12/19/2005 at 8:22 AM ------ SUBJECTIVE: Mahi is a 5-year-old brought in today by her mom because of difficulty with soft and fairly frequent stools. It sounds as though this has been going on for at least several weeks or more. Mom states she does not really remember when she did not have soft stools. It does not sound as though there has been any blood in the stools and it is not watery diarrhea, mostly just kind of an un, or loosely formed stool. She has had no fevers and no complaints of abdominal pain, decreased appetite or decreased activity. There have been no dietary changes for Mahi. She does not overly consume milk products or fruit juices. PAST MEDICAL HISTORY: Mahi has had urethral meatal stenosis treated by Dr. Pino. It sounds as though symptoms might still be persisting despite treatment this past April. She also has some interesting, persisting behaviors where she has significant oral fixation. Her momstates that she will lick things including counter tops, objects, etc. She states she has even foundher drinking out of puddles in the yard, etc. This has been going on for quite sometime. She also notices some increased saliva production. She also does suck on her fingers which she has been doing since the age of about 7 months. OBJECTIVE: On exam today, Mahi is very delightful and very active in the room. Vital signs are normal as noted in Epic. HEAD: Normocephalic. EARS: TMs appear normal bilaterally. NECK: At the nape of the neck she has a couple of scabbed areas that appear to have a little bit of secondary infection. They are nonspecific in appearance, could be related to insect bites. EARS: TMs appear normal. OROPHARYNX: Pharynx appears benign. NECK: Supple without adenopathy, no thyromegaly is noted. LUNGS: Clear. HEART: Regular without murmur. ABDOMEN: She has active bowel sounds throughout, no masses, no tenderness, no organomegaly. ASSESSMENT/PLAN: 1. Diarrhea. Given her secondary behavior, I think it is important to rule out parasitic issues, as well as possibility of bacterial infection. Stool culture, ova and parasites, Giardia antigen R currently pending. 2. Pica like behavior. TSH is currently pending. Would like her to return to her primary care provider for further discussion or referral is needed for this behavior. An appointment is set up for them.In the meantime CBC and TSH are currently pending. We will contact mom when stool reports are back. She is aware that it can take up to a week for these results. YANETH FAJARDO MD DICTATED: 12/16/2005 TRANSCRIBED: 12/18/2005[facility] Yaneth Fajardo - 12/17/2005 1:53 PM CDT Addended by: YANETH FAJARDO on: 12/17/2005 1:53:48 PM Modules accepted: Orders Yaneth Fajardo - 12/17/2005 1:51 PM CDT Quick Note: Please inform pt's MOm thyroid test is normal, I added an additional test (lead level) results willbe back next week. Yaneth Fajardo M.D. Yaneth Fajardo - 12/16/2005 1:11 PM CDT See dictation documented in this encounter Nursing Notes 12/16/2005 12:30 PM CDT >> IMELDAMILENA 12/16/2005 12:31 pm Body mass index is 15.42 kg/(m^2). BP cuff size: pediatric Do you feel safe in your environment? Yes documented in this encounter Plan of Treatment Not on filedocumented as of this encounter Procedures Procedure Name Priority Date/Time Associated Comments Diagnosis HC VENOUS COLLECTION Routine 12/16/2005 1:07 PM Pica CDT Diarrhea Nos CL AFF CBC WITH Routine 12/16/2005 1:07 PM Pica Results for this PLATELETS, DIFF CDT Diarrhea Nos procedure ar e in the results section. HCL TSH Routine 12/16/2005 1:07 PM Pica Results for this CDT Diarrhea Nos procedure are i n the results section. ZZCL AFF LEAD, BLOOD Routine 12/16/2005 1:07 PM Pica R esults for this (PB) CDT procedure are i n the results section. documented in this encounter Results LEAD, BLOOD (PB) (12/16/2005 1:07 PM CDT) athologist Signature Lead 1 [facility] Comment: Unit: ug/dl State [place] [facility] Lead Whole blood Specimen VENOUS [facility] (Note) HOSPITAL LAB NORMAL(UNEXPOSED POPULATION): CHILDREN AND ADULTS ? <10 ug/dl EXPOSED: ??CHILDREN (0-6 YEARS) ?>10 ug/d l ADULTS (OCCUPATIONAL EXPOSURE) OSHA ACTION LEVEL ? 40 ug/dl ZAC (BIOLOGICAL EXPOSURE INDEX) ?? 30 ug/dl (SAMPLING TIME NOT CRITICAL) BAT (BIOLOGICAL TOLERANCE VALUE) ??70 ug/dl (SAMPLING TIME NOT CRITICAL) TOXIC: ?CHILDREN (0-6 YEARS) ?>70 ug/ dl ADULTS ?>80 ug/dl Analysis performed by [employer] [place] [address] Specimen Anatomical Collection Method Collection Time Receive d Time (Source) Location / / Volume Laterality 12/16/2005 1:07 PM 200 6 2:07 CDT PM CDT Yaneth Fajardo MD LABORATORY Performing Organization Address City/State/[facility] Code Phon e Number [place] [id number] [facility] [place] [address] CENTER [facility] (ABNORMAL) CBC WITH PLATELETS, DIFF (12/16/2005 1:07 PM CDT) [facility] gist Method Time Signature WBC 6.7 5.5 - [place] 15.5 [facility] 10e9/L [facility] RBC Count 4.77 3.7 - 5.3 [place] 10e12/L [facility] Hemoglobin 11.4 10.5 - [place] 14.0 g/dL [facility] Hematocrit 35.9 31.5 - [place] 43.0 % [facility] MCV 75 70 - 100 [facility] MCH 23.8 (L) 26.5 - [place] 33.0 pg [facility] MCHC 31.7 (L) 32.0 - [place] 36.0 g/dL [facility] RDW 11.5 10.0 - [place] 15.0 % [facility] Platelet Count 383 150 - 450 [place] 10e9/L [facility] Diff Method Automated [facility] % Neutrophils 27 15 - 44 % [facility] % Lymphocytes 61 45 - 76 % [facility] % Monocytes 7 0 - 10 % [facility] % Eosinophils 3 0 - 6 % [facility] % Basophils 2 (H) 0 - 1 % [facility] Absolute 1.8 0.8 - 7.7 [place] Neutrophil 10e9/L [facility] Absolute 4.1 2.3 - [facility] Lymphocytes 13.3 [facility] 10e9/L HOSPITAL LAB Absolute 0.4 0.0 - 1.1 [facility] Monocytes 10e9/L [facility] Absolute 0.2 0.0 - 0.7 [facility] Eosinophils 10e9/L [facility] Absolute 0.1 0.0 - 0.2 [place] Basophils 10e9/L [facility] Specimen Anatomical Collection Method Collection Time Receive d Time (Source) Location / / Volume Laterality 12/16/2005 1:07 PM 6 1:08 CDT PM CDT Yaneth Fajardo MD LABORATORY Performing Organization Address City/State/ZIP Code Phon e Number M [address] [place] [address] [facility] TSH- (12/16/2005 1:07 PM CDT) P athologist Signature TSH 3.57 0.4 - 5.0 [place] mU/L [facility] Specimen Anatomical Collection Method Collection Time Receive d Time (Source) Location / / Volume Laterality 12/16/2005 1:07 PM 6 1:08 CDT PM CDT Yaneth Fajardo MD LABORATORY Performing Organization Address City/State/ZIP Code Phon e Number [address] [place] [address] [facility] documented in this encounter Visit Diagnoses Diagnosis Pica Diarrhea DIAGNOSIS NOT YET DEFINED documented in this encounter Care Teams Senior Java Programmer Relationship Specialty Start Date End Date Darby Harp MD PCP - General 03/25/05 11/14/14 [address] [facility] [place] [address] documented as of this encounter
--- OUTSIDE RECORDS SUMMARY | 2022-04-23 23:52 | XMS_ITS | Encounter Summary ---
:2002 Author Organization [place] Address [address] [place] [address] Care Team Providers Name Role Phone Darby Harp MD Primary Care Provider [phone] Reason for Visit Reason Comments Imm/Inj hepatitis a Encounter Details Date Type Department Care Team Description 09/27/2006 Allied Health/Nurse [facility] Im m/Inj (hepatitis a) Visit [facility] [address] [place] [address] Social History Tobacco Use Types Packs/Day Years [...] do you attend yarsani or Never 2018 mormon services? 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
--- OUTSIDE RECORDS SUMMARY | 2022-04-23 23:52 | XMS_ITS | Encounter Summary ---
:2002 Author Organization [place] Address [address] [place] [address] Care Team Providers Name Role Phone Darby Harp MD Primary Care Provider [phone] Encounter Details Date Type Department Care Team Description 12/08/2006 Telephone [facility] Darby Harp [facility] MD [place] [address] [facility] [address] [place] [address] [place] [address] [place], [place] [address] (Wo rk) Social History Tobacco Use Types [...] do you attend hinduism or Never 2018 congregation services? 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 See orders. documented in this encounter Plan of Treatment Not on filedocumented as of this encounter Visit Diagnoses Diagnosis Routine or child health check - P rimary documented in this encounter Care Teams Impregnator And Drier Helper Relationship Specialty Start Date End Date Darby Harp MD PCP - General 03/25/05 11/14/14 [address] [facility] [place] [address] documented as of this encounter
--- OUTSIDE RECORDS SUMMARY | 2022-04-23 23:52 | XMS_ITS | Encounter Summary ---
:2000 Author Organization [facility] Address [address] [place] [address] Care Team Providers Name Role Phone Darby Harp MD Primary Care Provider [phone] Reason for Visit Reason Onset Date Comments Imm/Inj 08/31/2006 Questions about whwe n next Hep A to be given Encounter Details Date Type Department Care Team Description 08/31/2006 Telephone [facility] Darby Harp I mm/Inj (Questions [facility] MD Kendal about whwen next Hep A [address] to be given) ANGEL Hammond [address] [place] [address] [phone] (Wo rk) Social History Tobacco Use Types [...] do you attend synagogue or Never 2018 hindu services? 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 The first was given 03/30/06 so the next one is due 09/22. JAZMYNE Pereira E RIGGER documented in this encounter Plan of Treatment Not on filedocumented as of this encounter Visit Diagnoses Not on filedocumented in this encounter Care Teams Public Relations Sales Marketing Relationship Specialty Start Date End Date Darby Harp MD PCP - General 03/25/05 11/14/14 [address] [facility] ANGEL DICKENS [id number] documented as of this encounter
[2022-04-23 23:54] LABS: Alkaline Phosphatase* 118 U/L (40-150); Amylase* 56 U/L (18-89); Aspartate Amino Transferase* 17 U/L (12-35); Bilirubin Direct* 0.1 mg/dL (0.0-0.5); Bilirubin Total* 0.5 mg/dL (0.1-1.5); Blood Urea Nitrogen* 9 mg/dL (5-24); Carbon Dioxide* 23 mmol/L (20-32); Creatinine* 0.7 mg/dL (0.5-1.5); Est. Creatinine Clearance* 129.32; Estimated Glomerular Filt Rate 127 ml/min; Glucose* 89 mg/dL (60-115); Slide Review Reflex No; Total Protein* 7.4 g/dL (6.0-8.3)
[2022-04-23 23:55] LABS: Alanine Aminotransferase* 15 U/L (4-35); Calcium* 9.3 mg/dL (8.4-10.6)
[2022-04-24] VITALS: BP 130/72; PULSE 66; RESP 16; O2SAT 99
[2022-04-24] LABS: C Reactive Protein* < 0.5 mg/dL (0.5-1.0)
[2022-04-24 00:30] LABS: HCG Qualitative Serum* Negative (Negative)
== END 2022-04-24 00:37 | disposition home or self-care (01) ==
PROVIDERS: Emergency Provider Family Medicine
DX: R10.84 Generalized abdominal pain (principal)
CPT/HCPCS: 36415; 80048; 80076; 82150; 84703; 85025; 86140; 99283; A9270

== ENCOUNTER 2024-06-13 16:12 | Outpatient (CLI) | payer OTHER, MEDICARE, MEDICAID, SELFPAY ==
--- OUTSIDE RECORDS SUMMARY | 2024-06-14 09:54 | XMS_ITS | Encounter Summary ---
Author Organization [facility] Address [facility] [place] [address] Care Team Providers Care Fishing Vessel Mate Name Role Phone Tc Jama MD Unavailable [phone] Alber Estrdaa PA-C Unavailable + [phone] Navid Regalado MD Unavailable [phone] Willow Mcnulty APRN MACHINE IRONER Unavailable [phone] Lashae Holt SCRAP IRON CUTTER MACHINE IRONER Unavailable + Lamont Marcus MD Unavailable [phone] Esau Monet MD Unavailable [phone] Liv Olson PA-C Unavailable Alber Estrada PA-C Primary Care Provider Karoline Su PORTABLE IRRIGATION OPERATOR Unavailable [phone] Navid Regalado MD Unavailable [phone] Caitlin Tarango [facility] Unavailable [phone] Encounter Details Date Type Department Care Team (Latest Contact Info) Description 06/13/2024 Travel Social History Tobacco Use Types Packs/Day Years Used Date Smoking Tobacco: Never Passive Smoke Exposure: Never Smokeless Tobacco: Never Comments:no smokers in house hold Alcohol Use Standard Drinks/Week Comments Yes 0 (1 standard drink = 0.6 oz pur e alcohol) Rarely Social Connection and Isolation Panel [NHANES] A nswer Date Recorded In a typical week, how many times do you talk on the phone with family, friends, or neighbors? Patient declined 10/26/2023 How often do you get togethe r with friends or relatives? Patient declined 10/26/2023 How often do you attend confucianist or moravian serv ices? Never 10/26/2023 Do you belong to any clubs o r organizations such as confucianist groups, unions, fraternal or athletic groups, or school groups? No 10/26/2023 How often do you attend meet ings of the clubs or organizations you belong to? Never 10/26/2023 Are you , , di vorced, , never , or living with a partner? Patient declined 10/26/2023 AUDIT-C Answer Date Recorded Q1: How often do you have a drink containing alc ohol? Patient declined 08/23/2023 Q2: How many drinks containi ng alcohol do you have on a typical day when you are drinking? Patient declined 08/23/2023 Q3: How often do you have si x or more drinks on one occasion? Patient declined 08/23/2023 PHQ-2 Answer Date Recorded PHQ-2 Score 0 04/27/2024 [facility] Occupational Stress Questionnaire Answer Date Recorded Do you feel stress - tense, restless, nervous, or anxious, or unable to sleep at night because your mind is troubled all the time - these days? Not at all 10/26/2023 Exercise Vital Sign Answer Date Recorde d On average, how many days pe r week do you engage in moderate to strenuous exercise (like a brisk walk)? 0 days On average, how many minutes do you engage in exercise at this level? Patient declined 10/26/2023 Adolescent Education Answer Date Record ed Getting School Help Needed Not on file 04/21 Food Insecurity Answer Date Recorded Within the past 12 months, d id you worry that your food would run out before you got money to buy more? No 10/26/2023 Within the past 12 months, d id the food you bought just not last and you didn t have money to get more? No 10/26/2023 Housing Stability Answer Date Recorded Do you have housing? (Wilder lyles is defined as stable permanent housing and does not include staying ouside in a car, in a tent, in an abandoned building, in an overnight alf, or couch-surfing.) Yes 10/26/2023 Are you worried about losing your housing? No 10/26/2023 Financial Resource Strain Answer Date R ecorded Within the past 12 months, h ave you or your family members you live with been unable to get utilities (heat, electricity) when it was really needed? No 10/26/2023 Transportation Needs Answer Date Record ed Within the past 12 months, h as lack of transportation kept you from medical appointments, getting your medicines, non-medical meetings or appointments, work, or from getting things that you need? No 10/26/2023 Interpersonal Safety Answer Date Record ed Do you feel physically and e motionally safe where you currently live? Yes 04/27/2024 Within the past 12 months, h ave you been hit, slapped, kicked or otherwise physically hurt by someone? No 04/27/2024 Within the past 12 months, h ave you been humiliated or emotionally abused in other ways by your partner or ex-partner? No 04/27/2024 Education Answer Date Recorded What is the highest level of school you have completed or the highest degree you have received? 10th grade 12/07/2018 Comments No Sex and Gender Information Value Date Recorded Sex Assigned at Female 09/04/2021 9:00 PM INSTRUMENT STERILIZER Legal Sex Female 4:25 AM INSTRUMENT STERILIZER Gender Identity Female 09/04/2021 9:00 PM INSTRUMENT STERILIZER Sexual Orientation Straight 09/04/2021 9: 00 PM INSTRUMENT STERILIZER documented as of this encounter Plan of Treatment Upcoming Encounters Date Type Department Care Team (Late st Contact Info) Description 07/04/2024 2:30 PM INSTRUMENT STERILIZER Office Visit [facility] [address] [place] [address] Alber Estrada PA-C [address] [place] [address] 07/05/2024 2:00 PM INSTRUMENT STERILIZER Office Visit [facility] [address] [place] [phone] Caitlin Tarango, CNM [address] [place] [address] documented as of this encounter Goals Goal Patient Goal Type Associated Problems Recent Progress Patient-Stated? Author I would like additional resources and support to manage my health and prevent future avoidable ED visits/hospital admissions Care Plan Increased risk of re-admission 40%( 3 9:21 AM INSTRUMENT STERILIZER) No Irma Isaac LSW Note: Barriers: I have been to the ED frequently recently. Strengths: Good family support. I receive support services from my DD waiver. Patient expressed understanding of goal: Yes Action steps to achieve this goal: 1. I will go to my Primary Care provider or Urgent Care for non life threatening concerns 2. I can contact clinic Triage if I have concerns about symptoms I am having by calling [phone]. 3. I will talk with my PCP about my specific health concerns and when it is appropriate for me to go to urgent care and/or ED. Improve management of mental health symptoms and establish with mental health/psychosocia l supports Care Plan Mental Health Symptoms Need Improvement 10%( 3 9:21 AM INSTRUMENT STERILIZER) Irma Gray LSW Note: Barriers: Therapy has not been helpful to me in the past. Strengths: I am familiar with breathing techniques to help when I feel anxious. I use music to calm me down. Good relationship with my grandma. Patient expressed understanding of goal: Yes Action steps to achieve this goal: 1. I will see a Collaborative Care Psychiatrist for medication management. 2. I will continue to lean on my supports such as my grandma and mom. 3. I will continue to use music to help calm me as needed when I feel anxious. 4. Pipe Bowl Paint Trimmer and I will check to see if I can access mental health support through my DD waiver. documented as of this encounter Visit Diagnoses Not on filedocumented in this encounter Additional Health Concerns Active Problems Noted Date Diagnosed Date Increased risk of re-admission 06/17/2023 Mental Health Symptoms Need Improvement 06/21/20 Assessment Noted Time PHQ-9 Depression Total Score: 12 024 1:52 PM CDT documented as of this encounter Care Teams Fishing Vessel Mate Relationship Specialty Start Date End Date Alber Estrada PA-C [address] [place] [address] PCP - General Family Medicine 11/03/23 Tc Jama MD [address] [address] Pediatric Surgery 02/14/20 Alber Estrada PA-C [address] [address] [place] [address] Assigned PCP 09/07/21 Navid Regalado MD [address] [place], [place] [address] Dermatology 04/30/23 Willow Mcnulty APRN MACHINE IRONER [address] [place] [address] Nurse Practitioner Nurse Practitioner Primary Care 06/02/23 Lashae Holt APRN MACHINE IRONER [address] [facility] [address] [place] [address] Nurse Practitioner Pain Medicine 06/02/23 Lamont Marcus MD [address] [facility] [address] [place] [address] pension administrator 06/25/23 Esau Monet MD [address], [facility] [address] [place] [address] Assigned OBGYN Provider 07/17/23 Liv Olson PA-C [address] [facility] [address] [place] [address] Physician Operator Catalyst Concentration Urology 09/23/23 Karoline Su, [facility] [address] [place] [address] Assigned Behavioral Health Provider 11/09/23 Navid Regalado MD [address] [place] [address] Assigned Surgical Provider 12/09/23 Caitlin Tarango CNM [address] [facility] [address] [place] [address] Finishing Frame Runner pension administrator 05/31/24 documented as of this encounter
--- OUTSIDE RECORDS SUMMARY | 2024-06-14 09:54 | XMS_ITS | Encounter Summary ---
Author Organization [facility] Address [facility] [place] [address] Care Team Providers Care Tool Designer Name Role Phone Tc Jama MD Unavailable [phone] Alber Estrada PA-C Unavailable + [phone] Navid Regalado MD Unavailable [phone] Willow Mcnulty APRN SHIELD INSTALLER Unavailable [phone] Lashae Holt SUPERVISOR SINTERING PLANT SHIELD INSTALLER Unavailable + Lamont Marcus MD Unavailable [phone] Esau Monet MD Unavailable [phone] Liv Olson PA-C Unavailable Alber Estrada PA-C Primary Care Provider Karoline Su NECK SKEWER Unavailable [phone] Navid Regalado MD Unavailable [phone] Encounter Details Date Type Department Care Team (Latest Contact Info) Description 04/27/2024 Travel Social History Tobacco Use Types Packs/Day [...] declined 10/26/2023 How often do you attend gnosticist or rastafarian serv ices? Never 10/26/2023 Do you belong to any clubs o r organizations such as gnosticist groups, unions, fraternal [...] PHQ-2 Score 0 04/27/2024 [facility] - Occupational Stress Questionnaire Answer Date Recorded [...] Answer Date Recorded Do you have housing? (Housin g is defined as stable permanent housing and does not include staying ouside in a car, in a tent, in an abandoned building, in an overnight intermediate, or couch-surfing.) Yes 10/26/2023 Are you worried [...] Sex Assigned at Female 09/04/2021 9:00 PM DATA SOLUTIONS ARCHITECT Legal Sex Female 4:25 AM DATA SOLUTIONS ARCHITECT Gender Identity Female 09/04/2021 9:00 PM DATA SOLUTIONS ARCHITECT Sexual Orientation Straight 09/04/2021 9: 00 PM DATA SOLUTIONS ARCHITECT documented as of this encounter Plan of Treatment Upcoming Encounters Date Type Department Care Team (Late st Contact Info) Description 07/04/2024 2:30 PM DATA SOLUTIONS ARCHITECT Office Visit [facility] [address] [place] [address] Alber Estrada PA-C [address] [place] [address] 07/05/2024 2:00 PM DATA SOLUTIONS ARCHITECT Office Visit [facility] [address] [place] [phone] Caitlin Tarango, CNM [address] [place] [address] documented as of this encounter Goals Goal Patient Goal Type Associated Problems Recent Progress Patient-Stated? Author I would like additional resources and support to manage my health and prevent future avoidable ED visits/hospital admissions Care Plan Increased risk of re-admission 40%( 3 9:21 AM DATA SOLUTIONS ARCHITECT) No Irma Isaac LSW Note: Barriers: I [...] about symptoms I am having by calling [phone]. 3. I will talk with my PCP about my specific health concerns and when it is appropriate for me to go to urgent care and/or ED. Improve management of mental health symptoms and establish with mental health/psychosocia l supports Care Plan Mental Health Symptoms Need Improvement 10%( 3 9:21 AM DATA SOLUTIONS ARCHITECT) No Irma Isaac LSW Note: Barriers: Therapy has not been [...] as needed when I feel anxious. 4. Health Sciences Dean and I will check to see if I can access mental health support through my DD waiver. documented as of this encounter Visit Diagnoses Not on filedocumented in this encounter Additional Health Concerns Active Problems Noted Date Diagnosed Date Increased risk of re-admission 06/17/2023 Mental Health Symptoms Need Improvement 12/04/20 23 Assessment Noted Time PHQ-9 Depression Total Score: 12 024 1:52 PM CDT documented as of this encounter Care Teams Tool Designer Relationship Specialty Start Date End Date Alber Estrada PA-C [address] [facility] [place] [address] PCP - General Family Medicine 11/03/23 Tc Jama MD [address] [place] [address] Pediatric Surgery 02/14/20 Alber Estrada PA-C [address] [facility] [place] [address] Assigned PCP 09/07/21 Navid Regalado MD [address] [place], [place] [address] Dermatology 04/30/23 Willow Mcnulty APRN SHIELD INSTALLER [address] [id number] Nurse Practitioner Nurse Practitioner Primary Care 06/02/23 Lashae Holt APRN SHIELD INSTALLER [address] [address] Nurse Practitioner Pain Medicine 06/02/23 Lamont Marcus MD [address] [id number] litharge supervisor 06/25/23 Esau Monet MD [address] [id number] Assigned OBGYN Provider 07/17/23 Liv Oslon PA-C [address] [address] Physician Upholstery Sewer Urology 09/23/23 Karoline Su, [facility] [address] [place] [address] Assigned Behavioral Health Provider 11/09/23 Navid Regalado MD [address] [place], [place] [address] Assigned Surgical Provider 12/09/23 documented as of this encounter
--- OUTSIDE RECORDS SUMMARY | 2024-06-14 09:54 | XMS_ITS | Encounter Summary ---
Author Organization [facility] Address [address] [place] [address] Care Team Providers Care Paper Machine Backtender Name Role Phone Tc Jama MD Unavailable [phone] Alber Estrada PA-C Unavailable [phone] Navid Regalado MD Unavailable [phone] Willow Mcnulty APRN GEAR LAPPING MACHINE OPERATOR Unavailable [phone] Lashae Holt GARMENT CUTTER GEAR LAPPING MACHINE OPERATOR Unavailable + Lamont Marcus MD Unavailable [phone] Esau Monet MD Unavailable [phone] Liv Olson PA-C Unavailable Alber Estrada PA-C Primary Care Provider Karoline Su CARTON FORMING MACHINE TENDER Unavailable [phone] Navid Regalado MD Unavailable [phone] Caitlin Tarango [facility] Unavailable [phone] Reason for Referral * Consultation (Routine: Next available opening) - Pending Review Specialty Diagnoses / Procedures Referred By Radha t Referred To Contact Diagnoses Chronic bilateral low back pain without sciatica Bilateral neck pain Mari Plascencia MD [facility] [address] [place] [address] Phone: tel: fax: Referral ID Status Reason Start Date Expiration Date V Requested Visits Authorized [id number] Pending Review 06/13/2024 06/13/2025 1 1 Question Answer Referral Type: Per Protocol Has the patient had a CT or MRI of the area of concern within the last 12 months? No Patient Scheduling Instructions: [facility] will call you to coordinate your care as prescribed by your provider. If you don't hear from a sales representative groceries within 2 business days, please call . Comments Please be aware that coverage of these services is subject to the terms and limitations of your health insurance plan. Call member services at your health plan with any benefit or coverage questions. [facility] will call you to coordinate your care as prescribed by your provider. If you don't hear from a sales representative groceries within 2 business days, please call . LITION SPECIALIST * Rehab Therapy Physical Therapy (Routine: Next available opening) - Pending Review Specialty Diagnoses / Procedures Referred By Radha t Referred To Contact Diagnoses Chronic bilateral low back pain without sciatica Bilateral neck pain Urge incontinence Mari Plascencia MD [facility] [address] [place] [address] Phone: tel: fax: Referral ID Status Reason Start Date Expiration Date V Requested Visits Authorized [id number] Pending Review 06/13/2024 06/13/2025 1 1 Question Answer Course of Action: Evaluation and Treatment Specialty Services: Per Associated Diagnosis Patient Scheduling Instructions: [facility] will call you to coordinate your care as prescribed by your provider. If you don't hear from a sales representative groceries within 2 business days, please call . Comments Please be aware that coverage of these services is subject to the terms and limitations of your health insurance plan. Call member services at your health plan with any benefit or coverage questions. [facility] will call you to coordinate your care as prescribed by your provider. If you don't hear from a sales representative groceries within 2 business days, please call . LITION SPECIALIST Reason for Visit * Reason Comments Back Pain Encounter Details Date Type Department Care Team (Late st Contact Info) Description 06/13/2024 5:49 PM DEMOLITION SPECIALIST - 06/13/2024 7:10 PM DEMOLITION SPECIALIST Emergency [facility] Emergency Dept [address] [place] [phone] Mari Plascencia MD [facility] [address] [place] [address] Chronic bilateral low back pain without sciatica; Bilateral neck pain; Urge incontinence; Insomnia, unspecified type Discharge Disposition: Home or Self Care Social History Tobacco Use Types Packs/Day Years [...] declined 10/26/2023 How often do you attend sabianism or methodist serv ices? Never 10/26/2023 Do you belong to any clubs o r organizations such as sabianism groups, unions, fraternal [...] Answer Date Recorded PHQ-2 Score 0 04/27/2024 [facility] [place] of Occupat ional [facility] - Occupational Stress Questionnaire Answer Date Recorded [...] Date Recorded Do you have housing? (Wilder g is defined as stable permanent housing [...] Sex Assigned at Female 09/04/2021 9:00 PM DEMOLITION SPECIALIST Legal Sex Female 4:25 AM DEMOLITION SPECIALIST Gender Identity Female 09/04/2021 9:00 PM DEMOLITION SPECIALIST Sexual Orientation Straight 09/04/2021 9: 00 PM DEMOLITION SPECIALIST documented as of this encounter Last Filed Vital Signs Vital Sign Reading Time Taken Comments Blood Pressure 150/79 06/13/2024 7:09 PM DEMOLITION SPECIALIST Pulse 99 06/13/2024 5:44 PM DEMOLITION SPECIALIST Temperature 36.4 C (97.5 F) 06/13/2024 5:44 PM DEMOLITION SPECIALIST Respiratory Rate 18 06/13/2024 5:44 PM DEMOLITION SPECIALIST Oxygen Saturation 98% 06/13/2024 5:44 PM DEMOLITION SPECIALIST Inhaled Oxygen Concentration - - Weight - - Height - - Body Mass Index - - documented in this encounter Discharge Instructions * Discharge Instructions* Mari Plascencia MD - 06/13/2024 6:59 PM DEMOLITION SPECIALIST [facility] - multiple locations - one option for jaw/neck evaluation LITION SPECIALIST * Attachments The following attachments cannot be sent through Care Everywhere. * Sleep Health: General Info (Lithuanian) * Back Care Basics: General Info (Lithuanian) * Back Pain: Self-Massage With a Tennis Ball: Video (Lithuanian) * Back: Stretches: Exercises (Lithuanian) documented in this encounter Medications at Time of Discharge gabapentin (NEURONTIN) 300 MG capsule Take 1 capsule (300 mg) by mouth at bedtime. 30 capsule 06/13/2024 methocarbamol (ROBAXIN) 750 MG tablet Take 1 tablet (750 mg) by mouth 4 times daily as needed for muscle spasms. 28 tablet 06/13/2024 documented as of this encounter ED Notes * Baljeet Torres RN - 06/13/2024 5:44 PM CST Arrives ambulatory from home. States she has chronic back pain. States that in the last couple of days she developed severe back and neck pain. Denies new numbness and tingling. Difficult triage as patient will be asked questions and starts talking about chronic conditions. Very concerned about having EMS present to her house earlier today, due to the nurse line calling 911. LITION SPECIALIST documented in this encounter Plan of Treatment Upcoming Encounters Date Type Department Care Team (Late st Contact Info) Description 07/04/2024 2:30 PM DEMOLITION SPECIALIST Office Visit [facility] [address] [place] [address] Alber Estrada PA-C [address] [place] [address] 07/05/2024 2:00 PM DEMOLITION SPECIALIST Office Visit [facility] [address] [place] [phone] Caitlin Tarango, CN [address] [facility] [address] [place] [address] Scheduled Referrals Name Type Priority Associated Diagnoses Orde r Schedule Physical Therapy It Specialist Referral Referral Routine: Next available opening Chronic bilateral low back pain without sciatica Bilateral neck pain Urge incontinence Expected: 06/13/2024 (Approximate), Expires: 06/13/2025 Spine It Specialist Referral Referral Routine: Next available opening Chronic bilateral low back pain without sciatica Bilateral neck pain Expected: 06/13/2024 (Approximate), Expires: 06/13/2025 documented as of this encounter Goals Goal Patient Goal Type Associated Problems Recent Progress Patient-Stated? Author I would like additional resources and support to manage my health and prevent future avoidable ED visits/hospital admissions Care Plan Increased risk of re-admission 40%( 9:21 AM DEMOLITION SPECIALIST) No Irma Isaac LSW Note: Barriers: I [...] about symptoms I am having by calling [phone]. 3. I will talk with my PCP about my specific health concerns and when it is appropriate for me to go to urgent care and/or ED. Improve management of mental health symptoms and establish with mental health/psychosocia l supports Care Plan Mental Health Symptoms Need Improvement 10%( 3 9:21 AM DEMOLITION SPECIALIST) Irma Gray LSW Note: Barriers: Therapy has [...] as needed when I feel anxious. 4. Water Registrar and I will check to see if I can access mental health support through my DD waiver. documented as of this encounter Procedures Procedure Name Priority Date/Time Associated Diagnosis Comments HCG QUALITATIVE URINE STAT 06/13/2024 6:35 PM DEMOLITION SPECIALIST ROUTINE UA WITH MICROSCOPIC REFLEX TO CULTURE STAT 06/13/2024 6:35 PM DEMOLITION SPECIALIST documented in this encounter Results * HCG qualitative urine (06/13/2024 6:35 PM DEMOLITION SPECIALIST) hCG Urine Qualitative Negative Negative PADMINI 06/13/2024 6:44 PM DEMOLITION SPECIALIST [facility] Comment:This test is for scr eening purposes. Results should be interpreted along with the clinical picture. Confirmation testing is available if warranted by ordering [id number], HCG Quantitative . Urine URINE SPECIMEN OBTAINED BY CLEAN CATCH PROCEDURE / Unknown Non-blood Collection / Unknown 06/13/2024 6:35 PM DEMOLITION SPECIALIST 06/13/2024 6:39 PM DEMOLITION SPECIALIST us Mari Plascencia MD LAB - URINE ORDERABLES Final Result LABORATORY [facility] [address] [facility] (1st floor, no room number) [place] [address], [facility] * (ABNORMAL) UA with Microscopic reflex to Culture (06/13/2024 6:35 PM DEMOLITION SPECIALIST) Color Urine Yellow Colorless, Straw, Light Yellow, Yellow 06/13/2024 6:45 PM DEMOLITION SPECIALIST LABORATORY Appearance Urine Slightly Cloudy(A) Clear 06/13/2024 6:45 PM DEMOLITION SPECIALIST LABORATORY Glucose Urine Negative Negative mg/dL 06/13/2024 6:45 PM DEMOLITION SPECIALIST LABORATORY Bilirubin Urine Negative Negative 6:45 PM DEMOLITION SPECIALIST LABORATORY Ketones Urine Negative Negative mg/dL 06/13/2024 6:45 PM DEMOLITION SPECIALIST LABORATORY Specific [place] Urine 1.029 1.003 - 1.035 06/13/2024 6:45 PM DEMOLITION SPECIALIST LABORATORY Blood Urine Negative Negative 06/13/2024 6:45 PM DEMOLITION SPECIALIST LABORATORY pH Urine 7.0 5.0 - 7.0 06/13/2024 6:45 PM DEMOLITION SPECIALIST LABORATORY Protein Albumin Urine 10(A) Negative mg/dL 06/13/2024 6:45 PM DEMOLITION SPECIALIST LABORATORY Urobilinogen Urine Normal Normal, 2.0 mg/dL 06/13/2024 6:45 PM DEMOLITION SPECIALIST LABORATORY Nitrite Urine Negative Negative 06/13/2024 6:45 PM DEMOLITION SPECIALIST LABORATORY Leukocyte Esterase Urine Negative Negative 06/13/2024 6:45 PM DEMOLITION SPECIALIST LABORATORY Mucus Urine Present(A) None Seen /LPF 06/13/2024 6:45 PM DEMOLITION SPECIALIST LABORATORY RBC Urine 1 <=2 /HPF 06/13/2024 6:45 PM DEMOLITION SPECIALIST LABORATORY WBC Urine 1 <=5 /HPF 06/13/2024 6:45 PM DEMOLITION SPECIALIST LABORATORY Squamous Epithelials Urine 12(H) <=1 /HPF 06/13/2024 6:45 PM DEMOLITION SPECIALIST LABORATORY Urine URINE SPECIMEN OBTAINED BY CLEAN CATCH PROCEDURE / Unknown Non-blood Collection / Unknown 06/13/2024 6:35 PM DEMOLITION SPECIALIST 06/13/2024 6:39 PM DEMOLITION SPECIALIST Narrative LABORATORY - 06/13/2024 6:45 PM DEMOLITION SPECIALIST Urine Culture not indicated us Mari Plascencia MD LAB - URINE ORDERABLES Final Result LABORATORY [facility] [address] [facility] Lab (1st floor, no room number) [place] [address] documented in this encounter Visit Diagnoses Diagnosis Chronic bilateral low back pain without sciatica Bilateral neck pain Cervicalgia Urge incontinence Insomnia, unspecified type documented in this encounter Administered Medications Inactive Administered Medications - up to 3 most recent administrations Medication Order MAR Action Action Date Dose Rate Site ibuprofen (ADVIL/MOTRIN) tablet 600 mg 600 mg, Oral, ONCE, On 06/13/24 at 1820, For 1 dose, Give with food. $Given 06/13/2024 6:20 PM DEMOLITION SPECIALIST 600 mg methocarbamol (ROBAXIN) tablet 750 mg 750 mg, Oral, ONCE, On Wed06/13/24 at 1820, For 1 dose $Given 06/13/2024 6:20 PM DEMOLITION SPECIALIST 750 mg documented in this encounter Active and Recently Administered Medications Times are shown in DEMOLITION SPECIALIST. Scheduled Medication Order 06/11/2024 06/12/2024 06/13/2024 ibuprofen (ADVIL/MOTRIN) tablet 600 mg (COMPLETED) 600 mg, Oral, ONCE, On 06/13/24 at 1820, For 1 dose, Give with food. 1820 ($Given - Provi shanna: Johanna Elias RN) methocarbamol (ROBAXIN) tablet 750 mg (COMPLETED) 750 mg, Oral, ONCE, On Wed06/13/24 at 1820, For 1 dose 1820 ($Given - Provi shanna: Johanna Elias RN) documented in this encounter Additional Health Concerns Active Problems Noted Date Diagnosed Date Increased risk of re-admission 06/17/2023 Mental Health Symptoms Need Improvement 06/21/20 23 Assessment Noted Time PHQ-9 Depression Total Score: 12 024 1:52 PM CDT documented as of this encounter Care Teams Paper Machine Backtender Relationship Specialty Start Date End Date Alber Estrada PA-C [address] [place] [address] PCP - General Family Medicine 11/03/23 [place] [address] [place] [address] Pediatric Surgery 02/14/20 Alber Estrada PA-C [address] [place] [address] Assigned PCP 09/07/21 Navid Regalado MD [address] [place] [address] Dermatology 04/30/23 Willow Mcnulty APRN GEAR LAPPING MACHINE OPERATOR [address] [address] Nurse Practitioner Nurse Practitioner Primary Care 06/02/23 Lashae Holt APRN GEAR LAPPING MACHINE OPERATOR [address] [address] Nurse Practitioner Pain Medicine 06/02/23 Lamont Marcus MD [address] [address] information assurance officer 06/25/23 Esau Monet MD [address] [address] Assigned OBGYN Provider 07/17/23 Liv Olson PA-C [address] [facility] [address] [place] [address] Physician Binder Layer Urology 09/23/23 Karoline Su, [facility] [address] [place] [address] Assigned Behavioral Health Provider 11/09/23 Navid Regalado MD [address] [place] [address] Assigned Surgical Provider 12/09/23 Caitlin Tarango CNM [address] [facility] [address] [place] [address] Tufter Hand information assurance officer 05/31/24 documented as of this encounter
--- OUTSIDE RECORDS SUMMARY | 2024-06-14 09:54 | XMS_ITS | Encounter Summary ---
Author Organization [place] Address [facility] [place] [address] Care Team Providers Care General Operator Name Role Phone Tc Jama MD Unavailable [phone] Alber Estrada PA-C Unavailable [phone] Navid Regalado MD Unavailable [phone] Willow Mcnulty APRN ADMINISTRATOR [facility] Unavailable [phone] Lashae Holt BILLET SHEARER ADMINISTRATOR [facility] Unavailable + Lamont Marcus MD Unavailable [phone] Esau Monet MD Unavailable [phone] Liv Olson PA-C Unavailable Alber Estrada PA-C Primary Care Provider Karoline Su STATION CASHIER Unavailable [phone] Navid Regalado MD Unavailable [phone] Reason for Referral * Rehab Therapy Physical Therapy (Routine: Next available opening) - Pending Review Specialty Diagnoses / Procedures Referred By Radha anderson Referred To Contact Diagnoses Urgency incontinence Kimberly Darling PA-C [address] [place] [address] Phone: tel: fax: Referral ID Status Reason Start Date Expiration Date V isits Requested Visits Authorized [id number] Pending Review 05/05/2024 05/05/2025 1 1 Question Answer Course of Action: Evaluation and Treatment Specialty Services: Pelvic Health Pelvic Health: Incontinence - Urinary Scheduling Instructions: [facility] will call you to coordinate your care as prescribed by your provider. If you don't hear from a client account representative within 2 business days, please call . Comments Please be aware that coverage of these services is subject to the terms and limitations of your health insurance plan. Call member services at your health plan with any benefit or coverage questions. [facility] will call you to coordinate your care as prescribed by your provider. If you don't hear from a client account representative within 2 business days, please call . Reason for Visit * Reason Comments urinary urgency (H) Encounter Details Date Type Department Care Team (Late st Contact Info) Description 05/05/2024 1:00 PM CDT Office Visit [facility] [address] [place] [address] Kimberly Darling PA-C [address] [place], [place] [address] Urgency incontinence (Primary Dx); Urinary urgency Social History Tobacco Use Types Packs/Day Years Used Date Smoking Tobacco: Never Passive Smoke Exposure: Never Smokeless Tobacco: Never Tobacco Cessation:Counseling Given: Not Answered Comments:no smokers in household Alcohol Use Standard Drinks/Week Comments Yes 0 [...] declined 10/26/2023 How often do you attend spiritism or taoist serv ices? Never 10/26/2023 Do you belong to any clubs o r organizations such as spiritism groups, unions, fraternal [...] Answer Date Recorded PHQ-2 Score 0 04/27/2024 [facility] - Occupational Stress Questionnaire Answer [...] in an abandoned building, in an overnight retirement, or couch-surfing.) Yes 10/26/2023 Are you worried [...] Sex Assigned at Female 09/04/2021 9:00 PM COAL INSPECTOR Legal Sex Female 4:25 AM COAL INSPECTOR Gender Identity Female 09/04/2021 9:00 PM COAL INSPECTOR Sexual Orientation Straight 09/04/2021 9: 00 PM COAL INSPECTOR documented as of this encounter Last Filed Vital Signs Vital Sign Reading Time Taken Comments Blood Pressure 101/61 05/05/2024 12:54 PM CDT Pulse 97 05/05/2024 12:54 PM CDT Temperature - - Respiratory Rate - - Oxygen Saturation 99% 05/05/2024 12:54 PM CDT Inhaled Oxygen Concentration - - Weight 102.5 kg (226 lb) 05/05/2024 12:54 PM CDT per patient Height 174 cm (5' 8.5) 05/05/2024 12:54 PM CDT Body Mass Index 33.86 05/05/2024 12:54 PM CDT documented in this encounter Patient Instructions * Patient Instructions* Kimbrely Darling PA-C - 05/05/2024 1:00 PM CDT You have been referred to Pelvic Floor Physical Therapy. They will call you to schedule this appointment Locations for Pelvic Floor Physical Therapy: [facility] Rehabilitation services [facility] M [facility] [place] M [facility]: [facility] - [facility] Rehabilitation services - [facility] M [facility]) M [facility] M [facility] M [facility] documented in this encounter Progress Notes * Kimberly Darling PA-C - 05/05/2024 1:00 PM CDT Urology Clinic Name: Mahi [facility] Date of : 2000 Accompanied at today's visit by:mother (Eleanor) Chief Complaint: UUI History of Present Illness: May 05, 2024 HISTORY: We have been following 24 year old Mahi Faye for Urinary uregncy, UUI. Hx of urethral dilation in 2004. Hx complicated by adjustment disorder and chromosomal abnormality. Last seen by Dr. Duarte on 11/03/23 and was referred to PFPT. Here today for follow-up. States she never went to PT statingshe doesn't have rides to PT. She does not want to try a medication and is interested in third lineoptions for a cure. Mother reports patient does have the means to afford and get to PT if patient chose to go to PT. Voiding about 10-15x/day and having multiple accidents per day. Reports significant constipation. Was to start miralax and fiber supplement, however patient has not started this regim en. Patient voices no other concerns at this time. Allergies: Allergies Allergen Reactions Dust Mites Itching Medications: No current outpatient medications on file. No current facility-administered medications for this visit. Past Surgical History: Past Surgical History: Procedure Laterality Date ARTHROSCOPY KNEE COLONOSCOPY N/A 02/10/2019 Procedure: COLONOSCOPY with biopsies; Surgeon: Vikas Martin MD; Location: [facility] OR CYSTECTOMY PILONIDAL N/A 01/09/2020 Procedure: EXCISION, PILONIDAL CYST; Surgeon: Tc Jama MD; Location: [facility] OR CYSTOURETHROSCOPY 05/04/2005 Cysto and urethral dilation. ESOPHAGOSCOPY, GASTROSCOPY, DUODENOSCOPY (EGD), COMBINED N/A 02/10/2019 Procedure: ESOPHAGOGASTRODUODENOSCOPY with biopsies; Surgeon: Vikas Martin MD; Location: [facility] OR INCISION AND DRAINAGE SACRAL WOUND, COMBINED N/A 11/28/2019 Procedure: INCISION AND DRAINAGE, pilonidal sinus; Surgeon: Tc Jama MD; Location: [facility] OR INCISION AND DRAINAGE TONSIL, COMBINED 2013 under general anesthesia KNEE SURGERY Right ~2018 Dr. Mahendra Worthington, O LAPAROSCOPIC CHOLECYSTECTOMY N/A 06/26/2023 Procedure: CHOLECYSTECTOMY, LAPAROSCOPIC; Surgeon: Ahmet Almaguer MD; Location: [facility] OR Physical Exam: Vitals: 05/05/24 1254 BP: 101/61 Pulse: 97 SpO2: 99% Weight: 102.5 kg (226 lb) Height: 1.74 m (5' 8.5) PSYCH: NAD EYES: EOMI NEURO: AAO x3 LABS: Creatinine Date Value Ref Range Status 04/08/2024 0.92 0.51 - 0.95 mg/dL Final 06/29/2020 0.67 0.50 - 1.00 mg/dL Final Assessment and Plan: 24 year old is a pleasant female who has Urinary uregncy, UUI, constipation Plan: - patient wants a cure for her bladder sx. Discussed with patient at length that her bladder sx arechronic and there is not a cure but options that can potentially improve her sx. Discussed options such as PFPT, avoiding bladder irritants, medications and third line options. Strongly recommend going to PT and discussed at length how her constipation could be contributing to her bladder sx with recommendation of starting the bowel regimen her PCP had discussed with her, and mother is in agreement with this. Patient not interested in PT at this time. Placed referral to PT incase patient changes her mind. - would avoid antimuscarinics given her hx of constipation. If failed PT could consider beta 3 agonist. Did discuss starting this and patient not interested in medications. Discussed that third line options are typically implemented when has failed conservative therapies. Discussed at length that third line options are not cures. Discussed third line options with patient/mother. Mother is not interested in third line options for patient at this time. Offered for patient to follow-up with Dr. Duarte to discuss third line options if she felt strongly to try one of these options prior to conservative therapies and patient declined. - patient not interested in following up with me or Dr. Duarte at this time. Offered for her to follow-up with other provider and patient not interested in other providers with [facility] urologyat this time. - After discussing the assessment and plan with patient, patient verbalizes understanding and agrees to the above plan. All questions answered. Other orders as below: Orders Placed This Encounter Procedures Physical Therapy Admitting Supervisor Referral 45 minutes spent on the date of the encounter doing chart review, reviewing Dr. Duarte's notes, referral to PFPT, reviewing labs, review of test results, interpretation of tests, patient visit and documentation. Kimberly Darling PA-C Urology May 05, 2024 Patient Care Team: Alber Estrada PA-C as PCP - General (Family Medicine) Tc Jama MD as MD (Pediatric Surgery) Alber Estrada PA-C as Assigned PCP Navid Regalado MD as (Dermatology) Willow Mcnulty APRN CNP as Nurse Practitioner (Nurse Practitioner Primary Care) Lashae Holt APRN CNP as Nurse Practitioner (Pain Medicine) Lamont Marcus MD as (forensic analyst) Esau Moent MD as Assigned OBGYN Provider Liv Olson PA-C as Physician Watch Mechanic (Urology) Karoline Su [facility] as Assigned Behavioral Health Provider Navid Regalado MD as Assigned Surgical Provider documented in this encounter Nursing Notes * Karoline Gallagher LPN - 05/05/2024 1:00 PM CDT Chief Complaint Patient presents with urinary urgency (H) Karoline Gallagher LPN documented in this encounter Plan of Treatment Upcoming Encounters Date Type Department Care Team (Late st Contact Info) Description 07/04/2024 2:30 PM COAL INSPECTOR Office Visit [facility] [address] [place] [phone] Alber Estrada PA-C [address] [place] [address] 07/05/2024 2:00 PM COAL INSPECTOR Office Visit [facility] [address] [facility] [address] [place] [address] Caitlin Tarango, [facility] [address] [address] [place] [address] Scheduled Referrals Name Type Priority Associated Diagnoses Orde r Schedule Physical Therapy Admitting Supervisor Referral Referral Routine: Next available opening Urgency incontinence Expected: 05/05/2024 (Approximate), Expires: 05/05/2025 documented as of this encounter Goals Goal Patient Goal Type Associated Problems Recent Progress Patient-Stated? Author I would like additional resources and support to manage my health and prevent future avoidable ED visits/hospital admissions Care Plan Increased risk of re-admission 40%( 3 9:21 AM COAL INSPECTOR) No Irma Isaac LSW Note: Barriers: I [...] about symptoms I am having by calling [phone]. 3. I will talk with my PCP about my specific health concerns and when it is appropriate for me to go to urgent care and/or ED. Improve management of mental health symptoms and establish with mental health/psychosocia l supports Care Plan Mental Health Symptoms Need Improvement 10%( 3 9:21 AM COAL INSPECTOR) Irma Gray, JAVI Note: Barriers: Therapy has not been helpful [...] as needed when I feel anxious. 4. Convict Guard and I will check to see if I can access mental health support through my DD waiver. documented as of this encounter Visit Diagnoses Diagnosis Urgency incontinence- Primary Urge incontinence Urinary urgency Urgency of urination documented in this encounter Additional Health Concerns Active Problems Noted Date Diagnosed Date Increased risk of re-admission 06/17/2023 Mental Health Symptoms Need Improvement 06/21/20 23 Assessment Noted Time PHQ-9 Depression Total Score: 12 024 1:52 PM CDT documented as of this encounter Care Teams General Operator Relationship Specialty Start Date End Date Alber Estrada PA-C [address] [address] [place] [address] PCP - General Family Medicine 11/03/23 Tc Jama MD [address] [place] [address] [address] Pediatric Surgery 02/14/20 Alber Estrada PA-C [address] [address] [place] [address] Assigned PCP 09/07/21 Navid Regalado MD [address] [place] [address] Dermatology 04/30/23 Willow Mcnulty APRN [facility] [address] [address] Nurse Practitioner Nurse Practitioner Primary Care 06/02/23 Lashae Holt APRN [facility] [address] [place] [address] Nurse Practitioner Pain Medicine 06/02/23 Lamont Marcus MD [address] [employer] [facility] [address] [place] [address] forensic analyst 06/25/23 Esau Monet MD [address] [facility] [address] [place] [address] Assigned OBGYN Provider 07/17/23 Liv Olson PA-C [address] [employer] [facility] [employer] [address] Physician Watch Mechanic Urology 09/23/23 Karoline Su, [facility] [address] [place] [address] Assigned Behavioral Health Provider 11/09/23 Navid Regalado MD [address] [place] [address] Assigned Surgical Provider 12/09/23 documented as of this encounter
--- OUTSIDE RECORDS SUMMARY | 2024-06-14 09:54 | XMS_ITS | Encounter Summary ---
Author Organization [place] Address [facility] [place] [address] Care Team Providers Care Natural Gas Technician Name Role Phone Tc Jama MD Unavailable [phone] Alber Estrada PA-C Unavailable [phone] aNvid Regalado MD Unavailable [phone] Willow Mcnulty APRN MALE IMPERSONATOR Unavailable [phone] Lashae Holt BOWL TOPPER MALE IMPERSONATOR Unavailable + Lamont Marcus MD Unavailable [phone] Esau Monet MD Unavailable [phone] Liv Olson PA-C Unavailable Alber Estrada PA-C Primary Care Provider Karoline Su DIRECTOR NICU Unavailable [phone] Navid Regalado MD Unavailable [phone] Encounter Details Date Type Department Care Team (Latest Contact Info) Description 05/05/2024 Travel Social History Tobacco Use Types Packs/Day [...] declined 10/26/2023 How often do you attend temple or amish serv ices? Never 10/26/2023 Do you belong to any clubs o r organizations such as temple groups, unions, fraternal [...] Answer Date Recorded PHQ-2 Score 0 04/27/2024 [facility] - Occupational Stress Questionnaire Answer Date [...] in an abandoned building, in an overnight jail, or couch-surfing.) Yes 10/26/2023 Are you worried [...] Sex Assigned at Female 09/04/2021 9:00 PM GRAIN INSPECTOR Legal Sex Female 4:25 AM GRAIN INSPECTOR Gender Identity Female 09/04/2021 9:00 PM GRAIN INSPECTOR Sexual Orientation Straight 09/04/2021 9: 00 PM GRAIN INSPECTOR documented as of this encounter Plan of Treatment Upcoming Encounters Date Type Department Care Team (Late st Contact Info) Description 07/04/2024 2:30 PM GRAIN INSPECTOR Office Visit [facility] [address] [place] [address] Alber Estrada PA-C [address] [place] [address] 07/05/2024 2:00 PM GRAIN INSPECTOR Office Visit [facility] [address] [place] [phone] Caitlin Tarango, CNM [address] [place] [address] documented as of this encounter Goals Goal Patient Goal Type Associated Problems Recent Progress Patient-Stated? Author I would like additional resources and support to manage my health and prevent future avoidable ED visits/hospital admissions Care Plan Increased risk of re-admission 40%( 3 9:21 AM GRAIN INSPECTOR) No Irma Isaac LSW Note: Barriers: [...] about symptoms I am having by calling [phone]. 3. I will talk with my PCP about my specific health concerns and when it is appropriate for me to go to urgent care and/or ED. Improve management of mental health symptoms and establish with mental health/psychosocia l supports Care Plan Mental Health Symptoms Need Improvement 10%( 3 9:21 AM GRAIN INSPECTOR) No Irma Isaac LSW Note: Barriers: Therapy [...] as needed when I feel anxious. 4. Preparation Supervisor Freezing and I will check to see if [...] documented as of this encounter Care Teams Natural Gas Technician Relationship Specialty Start Date End Date Alber Estrada PA-C [address] [facility] [place] [address] PCP - General Family Medicine 11/03/23 Tc Jama MD [address] [place] [address] Pediatric Surgery 02/14/20 Alber Estrada PA-C [address] [facility] [place] [address] Assigned PCP 09/07/21 Navid Regalado MD [address] [place], [place] [address] Dermatology 04/30/23 Willow Mcnulty APRN MALE IMPERSONATOR [address] [address] Nurse Practitioner Nurse Practitioner Primary Care 06/02/23 Lashae Holt APRN MALE IMPERSONATOR [address] [address] Nurse Practitioner Pain Medicine 06/02/23 Lamont Marcus MD [address] [address] inspector golf ball 06/25/23 Esau Monet MD [address] [address] Assigned OBGYN Provider 07/17/23 Liv Olson PA-C [address] [address] Physician Transit Clerk Urology 09/23/23 Karoline Su, [facility] [address] [place] [address] Assigned Behavioral Health Provider 11/09/23 Navid Regalado MD [address] [place], [place] [address] Assigned Surgical Provider 12/09/23 documented as of this encounter
--- OUTSIDE RECORDS SUMMARY | 2024-06-14 09:54 | XMS_ITS | Encounter Summary ---
Author Organization [facility] Address [address] [place] [address] Care Team Providers Care Control Equipment Electrician Name Role Phone Tc Jama MD Unavailable [phone] Alber Estrada PA-C Unavailable + [phone] Navid Regalado MD Unavailable [phone] Willow Mcnulty APRN MATERIALS PLANNING MANAGER Unavailable [phone] Lashae Holt RN PROCEDURES MATERIALS PLANNING MANAGER Unavailable + Lamont Marcus MD Unavailable [phone] Esau Monet MD Unavailable [phone] Liv Olson PA-C Unavailable Alber Estrada PA-C Primary Care Provider Karoline Su AQUATIC PERFORMER Unavailable [phone] Navid Regalado MD Unavailable [phone] Reason for Visit * Reason Comments ER F/U Encounter Details Date Type Department Care Team (Late st Contact Info) Description 04/27/2024 2:00 PM CDT Office Visit [facility] [address] [place] [address] Alber Estrada PA-C [address] [place] [address] Slow transit constipation; Elevated blood sugar; Bowel habit changes; Need for vaccination; Need for Tdap vaccination Social History Tobacco Use Types Packs/Day Years [...] declined 10/26/2023 How often do you attend scientology or scientology serv ices? Never 10/26/2023 Do you belong to any clubs o r organizations such as scientology groups, unions, fraternal [...] Answer Date Recorded PHQ-2 Score 0 04/27/2024 [facility] - Occupational Stress [...] in an abandoned building, in an overnight usp, or couch-surfing.) Yes 10/26/2023 Are you worried [...] Sex Assigned at Female 09/04/2021 9:00 PM INSPECTOR AUTOMATIC TYPEWRITER Legal Sex Female 4:25 AM INSPECTOR AUTOMATIC TYPEWRITER Gender Identity Female 09/04/2021 9:00 PM INSPECTOR AUTOMATIC TYPEWRITER Sexual Orientation Straight 09/04/2021 9: 00 PM INSPECTOR AUTOMATIC TYPEWRITER documented as of this encounter Last Filed Vital Signs Vital Sign Reading Time Taken Comments Blood Pressure 121/79 04/27/2024 2:11 PM CDT Pulse 72 04/27/2024 2:11 PM CDT Temperature 36.9 C (98.4 F) 04/27/2024 2:11 PM CDT Respiratory Rate 18 04/27/2024 2:11 PM CDT Oxygen Saturation 98% 04/27/2024 2:11 PM CDT Inhaled Oxygen Concentration - - Weight 105.4 kg (232 lb 6.4 oz) 04/27/2024 2:11 PM CDT Height 174 cm (5' 8.5) 04/27/2024 2:11 PM CDT Body Mass Index 34.82 04/27/2024 2:11 PM CDT documented in this encounter Patient Instructions * Patient Instructions* Alber Estrada PA-C - 04/27/2024 2:00 PM CDT Moving forward the most important thing is to start a stool regimen and stick with it!! I do think there is a chance that sometimes the symptoms may slightly worsen before getting better -- the important part is staying on the medication during this time and sticking with it. It can take a few weeks for the fiber to work! Here is what I recommend: Daily fiber supplement/gummy; everyday; do not stop Miralax -- start this daily (1 capful) and continue until your bowels are regular; then use this only as needed when you feel your bowel movements are bad again You need to get your Tetanus shot at any local pharmacy documented in this encounter Progress Notes * Alber Estrada PA-C - 04/27/2024 2:00 PM CDT Assessment & Plan Slow transit constipation Bowel habit changes Unfortunately Mahi has not taken any medications as recommended by myself or ED and she continues to have bowel concerns. I stressed again at the importance of these and typed another list for her. Im hoping this time she will follow Elevated blood sugar Checking a1c - Hemoglobin A1c; Future Need for vaccination - INFLUENZA VACCINE,SPLIT VIRUS,TRIVALENT,PF(FLUZONE) - COVID-19 12+ (PFIZER) Need for Tdap vaccination Needs to get at pharmacy given insurance MED REC REQUIRED Post Medication Reconciliation Status: Discharge medications reconciled, continue medications without change BMI Estimated body mass index is 34.82 kg/m?? as calculated from the following: Height as of this encounter: 1.74 m (5' 8.5). Weight as of this encounter: 105.4 kg (232 lb 6.4 oz). Subjective Mahi is a 24 year old, presenting for the following health issues: ER F/U 04/27/2024 2:08 PM Additional Questions Roomed by Rosie Cabrera CMA Accompanied by FINN 04/27/2024 2:08 PM Patient Reported Additional Medications Patient reports taking the following new medications None HPI ED/UC Followup: Facility: [facility] Date of visit: 04/08/2024 Reason for visit: Abdominal Pain Current Status: Patient states that she is still experiencing is the abdominal pain. Mahi Faye is a 24 year old female who presents today for follow up after ED visit for abdominal pain, constipation She continues to limit the medication that she will take to help In fact she did NOT take any medications for stool after her ED visit Partly this is because miralax caused diarrhea previously She also mentions that she started to go normally again after she was in the ED In hindsight she did start the fiber gummies for a few days -stopped a few days prior to the ED -also stopped the stool softener as well Now more recently she has developed loose stools again There is not a lot of pain thankfully Patient would also like her tetanus, covid and flu vaccines today. Review of Systems Constitutional, HEENT, cardiovascular, pulmonary, gi and gu systems are negative, except as otherwise noted. Objective BP 121/79 (BP Location: Right arm, Patient Position: Sitting, Cuff Size: Adult Large) Pulse 72 Temp 98.4 ??F (36.9 ??C) (Oral) Resp 18 Ht 1.74 m (5' 8.5) Wt 105.4 kg (232 lb 6.4 oz) [id number]% BMI 34.82 kg/m?? Body mass index is 34.82 kg/m??. Physical Exam GENERAL: alert and no distress RESP: lungs clear to auscultation - no rales, rhonchi or wheezes CV: regular rate and rhythm, normal S1 S2, no S3 or S4, no murmur, click or rub, no peripheral edema ABDOMEN: soft, nontender, no hepatosplenomegaly, no masses and bowel sounds normal Signed Electronically by: Alber Estrada PA-C Answers submitted by the patient for this visit: Patient Health Questionnaire (Submitted on 04/27/2024) If you checked off any problems, how difficult have these problems made it for you to do your work,take care of things at home, or get along with other people?: Somewhat difficult PHQ9 TOTAL SCORE: 12 documented in this encounter Plan of Treatment Upcoming Encounters Date Type Department Care Team (Late st Contact Info) Description 07/04/2024 2:30 PM INSPECTOR AUTOMATIC TYPEWRITER Office Visit [facility] [address] [place] [id number] Alber Estrada PA-C [address] [place], [place] [id number] 07/05/2024 2:00 PM INSPECTOR AUTOMATIC TYPEWRITER Office Visit [facility] [address] [place] [address] Caitlin Tarango, [facility] [address] [address] [place] [address] documented as of this encounter Goals Goal Patient Goal Type Associated Problems Recent Progress Patient-Stated? Author I would like additional resources and support to manage my health and prevent future avoidable ED visits/hospital admissions Care Plan Increased risk of re-admission 40%( 9:21 AM INSPECTOR AUTOMATIC TYPEWRITER) No Irma Isaac LSW Note: Barriers: I [...] about symptoms I am having by calling [phone]. 3. I will talk with my PCP about my specific health concerns and when it is appropriate for me to go to urgent care and/or ED. Improve management of mental health symptoms and establish with mental health/psychosocia l supports Care Plan Mental Health Symptoms Need Improvement 10%( 3 9:21 AM INSPECTOR AUTOMATIC TYPEWRITER) Irma Gray LSW Note: Barriers: Therapy has [...] as needed when I feel anxious. 4. Front End Architect and I will check to see if I can access mental health support through my DD waiver. documented as of this encounter Procedures Procedure Name Priority Date/Time Associated Diagnosis Comments HEMOGLOBIN A1C Routine 04/27/2024 2:45 PM CDT Elevated blood sugar documented in this encounter Results * Hemoglobin A1c (04/27/2024 2:45 PM CDT) Estimated Average Glucose 100 <117 mg/dL 04/27/2024 2:50 PM CDT LABORATORY Hemoglobin A1C 5.1 0.0 - 5.6 % 04/27/2024 2:50 PM CDT LABORATORY Comment: Normal <5.7% Prediabetes 5.7-6.4% Diabetes 6.5% or higher Note: Adopted from ADA consensus guidelines. Blood BLOOD SPECIMEN / Unknown Venipuncture / Unknown 04/27/2024 2:45 PM CDT 04/27/2024 2:45 PM CDT Alber Estrada PA-C LAB - BLOOD ORDERABLES Final Result LABORATORY [facility] [address] [facility] (no room number, 1st floor of clinic) [place] [id number], [facility] documented in this encounter Visit Diagnoses Diagnosis Slow transit constipation Elevated blood sugar Other abnormal glucose Bowel habit changes Other symptoms involving digestive system Need for vaccination Need for prophylactic vaccination and inoculation against unspecified single disease Need for Tdap vaccination Need for prophylactic vaccination with combined [id number] (DTP) vaccine documented in this encounter Additional Health Concerns Active Problems Noted Date Diagnosed Date Increased risk of re-admission 06/17/2023 Mental Health Symptoms Need Improvement 06/21/20 Assessment Noted Time PHQ-9 Depression Total Score: 12 024 1:52 PM CDT documented as of this encounter Care Teams Control Equipment Electrician Relationship Specialty Start Date End Date Alber Estrada PA-C [address] [place] [address] PCP - General Family Medicine 11/03/23 Tc Jama MD [address] [place] [id number] Pediatric Surgery 02/14/20 Alber Estrada PA-C [address] [place] [address] Assigned PCP 09/07/21 Navid Regalado MD [address] [place], [place] [id number] Dermatology 04/30/23 Willow Mcnulty APRN MATERIALS PLANNING MANAGER [address] [id number] Nurse Practitioner Nurse Practitioner Primary Care 06/02/23 Lashae Holt APRN MATERIALS PLANNING MANAGER [address] [facility] [address] [place] [address] Nurse Practitioner Pain Medicine 06/02/23 Lamont Marcus MD [address] [facility] [address] [place] [address] railroad car cleaner 06/25/23 Esau Monet MD [address] [facility] [address] [place] [address] Assigned OBGYN Provider 07/17/23 Lvi Olson PA-C [address] [address] Physician Propulsion Systems Engineer Urology 09/23/23 Karoline Su, [facility] [address] [place] [address] Assigned Behavioral Health Provider 11/09/23 Navid Regalado MD [address] [place] [address] Assigned Surgical Provider 12/09/23 documented as of this encounter
--- OUTSIDE RECORDS SUMMARY | 2024-06-14 09:54 | XMS_ITS | Clinical Summary ---
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 10:33 AM [facility] Clinical Information none 07/15/2023 10:33 AM [facility] Reflex Testing No 07/15/2023 10:33 AM [facility] Previous Abnormal? No 07/15/2023 10:33 AM [facility] Performing Labs The technical component of this testing was completed at [facility] 07/15/2023 10:33 AM [facility] Brushing CERVIX UTERI STRUCTURE / Unknown Non-blood Collection / Unknown 07/09/2023 3:27 PM [facility]ER 07/09/2023 3:49 PM [facility] us Esau Monet MD LAB - BEAKER AP Final Result SPECIAL[facility] Specialty Lab [address] [facility], [address] [place] [address], [place] [phone] * Chlamydia trachomatis PCR (06/17/2023 1:06 PM TOWEL WEAVER) Pathologist [facility] Chlamydia trachomatis Negative Negative 06/18/2023 12:38 PM TOWEL WE[facility] Comment:A negative result by professor of art mediated amplification does not preclude the presence of C. trachomatis infection because results are dependent on proper and adequate collection, absence of inhibitors and sufficient rRNA to be detected. Urine VOIDED URINE SPECIMEN / Unknown Non-blood Collection / Unknown 06/17/2023 1:06 PM [facility] 06/17/2023 1:06 PM [facility] us Scar Umanzor APRN BILL PEDDLER LAB - MICRO GENERAL ORDERAB LES Final Result Performing Organization Address City/[facility]/ZIP Co de Phone Number [facility] Inf. Diseases Diag. Lab [address] [facility], [address] [place] [address], [place] [phone] * HIV Antigen Antibody Combo [place] (06/17/2023 12:56 PM TOWEL WEAVER) HIV Antigen Antibody Combo Nonreactive Nonreactive 06/17/2023 3:37 PM [facility] SPECIALTY CORE/PROT/EN DO Comment:HIV-1 p24 Ag & HIV-1 /HIV-2 Ab Not Detected Blood BLOOD SPECIMEN / Unknown Venipuncture / Unknown 06/17/2023 12:56 PM [employer]OWEL WE[employer]ER 06/17/2023 12:56 PM [employer]OWEL WE[employer]ER Scar Umanzor APRN BILL PEDDLER LAB - BLOOD ORDERABLES Evon l Result [facility]/PROT/ENDO [facility] Core/Prot/Endo [address] [facility] [address], [address] [phone] * Hepatitis C antibody (06/17/2023 12:56 PM TOWEL WEAVER) Hepatitis C Antibody Nonreactive Nonreactive 06/17/2023 4:16 PM TOWEL WE[facility]ER [facility]PROT/EN DO Blood BLOOD SPECIMEN / Unknown Venipuncture / Unknown 06/17/2023 12:56 PM TOWEL WEAVER 06/17/2023 12:56 PM TOWEL WEAVER Narrative [facility]PROT/ENDO - 06/17/2023 4:16 PM TOWEL WEAVER Assay performance characteristics have not been established for newborns, infants, and children. Scar Umanzor APRN BILL PEDDLER LAB - BLOOD ORDERABLES Evon l Result [facility] CORE/PROT/ENDO Specialty Core/Prot/Endo [address] [facility] [address] Building, [address] [place] [address], [facility] [[email or web address]] [phone] from Last 3 Months or Most Recently Relevant to Health Maintenance Additional Health Concerns Active Problems Noted Date Diagnosed Date Increased risk of re-admission 06/17/2023 Mental Health Symptoms Need Improvement 06/21/20 23 Insurance [place]ICAID [place] MEDICARE [facility] [place]ID [place] [facility] SPECIAL [place] [facility] MEDICARE Advance Directives For more information, please contact: [phone] Documents on File Type Date Recorded Patient Reference And Instruction Librarian Expl anation Advance Directives and Living Will 04/09/2020 2:34 PM Josephine Krueger (GUARDIAN) Legal Guardianship 11-16-2019 * Full Code (Latest Code Status on File) Date Activated Date Inactivated Comments 06/27/2023 7:42 AM 06/27/2023 5:03 PM All basic and advanced life-sustaining interventions are performed as appropriate Question Answer Comments Code status determined by: Discussion with roby nt/ legal decision maker * Full Code Date Activated Date Inactivated Comments 06/26/2023 3:08 AM 06/27/2023 7:42 AM All basic a nd advanced life-sustaining interventions are performed as appropriate Question Answer Comments Code status determined by: Unable to det ermine; FULL CODE until documents or legal decision maker available * Full Code Date Activated Date Inactivated Comments 02/23/2021 5:39 AM 02/27/2021 10:10 PM All basic an d advanced life-sustaining interventions are performed as appropriate Question Answer Comments Code status determined by: Unable to dis cuss and no AD/POLST on file; continue PREVIOUSLY ORDERED code status * Full Code Date Activated Date Inactivated Comments 05/28/2020 4:04 AM 06/06/2020 8:19 PM All basic and advanced life-sustaining interventions are performed as appropriate Question Answer Comments Code status determined by: Discussion with roby nt/ legal decision maker * Full Code Date Activated Date Inactivated Comments 03/15/2020 8:06 PM 03/31/2020 6:05 PM All basic an d advanced life-sustaining interventions are performed as appropriate Question Answer Comments Code status determined by: Discussion with roby pineda/ legal decision maker Care Teams Other Sales Support Worker Relationship Specialty Start Date End Date Alber Estrada PA-C [address] [place] [address] PCP - General Family Medicine 11/03/23 Tc Jama MD [facility] [address] [address] Pediatric Surgery 02/14/20 Alber Estrada PA-C [address] [place] [address] Assigned PCP 09/07/21 Navid Regalado MD [address] [place] [id number] Dermatology 04/30/23 Willow Mcnulty APRN BILL PEDDLER [address] [address] Nurse Practitioner Nurse Practitioner Primary Care 06/02/23 Lashae Holt APRN BILL PEDDLER [address] [place] [address] Nurse Practitioner Pain Medicine 06/02/23 Lamont Marcus MD [address] [email or web address] [address] [address] colliery clerk 06/25/23 Esau Monet MD [address] [employer] [facility] [address] [place] [address] Assigned OBGYN Provider 07/17/23 Liv Olson PA-C [address] [employer] [address] Physician Hogshead Mat Assembler Urology 09/23/23 Karoline Su, [facility] [address] [place] [address] Assigned Behavioral Health Provider 11/09/23 Navid Regalado MD [address] [place] [id number] Assigned Surgical Provider 12/09/23 Caitlin Tarango CNM [address] [address] [employer] [place] [employer] Driver colliery clerk 05/31/24
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
--- OUTSIDE RECORDS SUMMARY | 2024-06-14 09:55 | XMS_ITS | Encounter Summary ---
Author Organization [facility] Address Replaced by [facility] [place] [address] Care Team Providers Care Plastic Joint Maker Name Role Phone Tc Jama MD Unavailable [phone] Mike Sherwood MD Unavailable [phone] Navid Paige MD Unavailable [phone] Alber Estrada PA-C Unavailable +[phone] Alber Estrada PA-C Primary Care Provider Maxine Patel CNM Unavailable [phone] No Ref-Primary, Physician Primary Care Provider Navid Regalado MD Unavailable [phone] Willow Mcnulty TRACK LAYER CAREER MANAGER Unavailable [phone] Lashae Holt TRACK LAYER CAREER MANAGER Unavailable + Irma Isaac DIRECTOR CORPORATE COMMUNICATIONS Unavailable [phone] Lamont Marcus MD Unavailable [phone] Irma Isaac DIRECTOR CORPORATE COMMUNICATIONS Unavailable [phone] Alber Estrada PA-C Unavailable [phone] Lamont Marcus MD Unavailable [phone] Esau Monet MD Unavailable Ahmet Almaguer MD Unavailable [phone] Liv Olson PA-C Unavailable Alber EstradaC Primary Care Provider Eda Duarte MD Unavailable [phone] Karoline Su RESIDENTIAL DRIVER Unavailable [phone] Navid Regalado MD Unavailable [phone] Cony Cameron RN Unavailable [phone] Royce Chip DIRECTOR CORPORATE COMMUNICATIONS Unavailable [phone] Serafin Tarangoissa Patricia VASQUEZ Unavailable [phone] Encounter Details Date Type Department Care Team (Late st Contact Info) Description 07/15/2022 [facility] Medical Advice Formerly [facility]'s [address] [place] [id number] Candice Rodriges Social History Tobacco Use Types Packs/Day Years Used Date Smoking Tobacco: Never Smokeless Tobacco: Never Comments:no smokers in house hold Alcohol Use Standard Drinks/Week Comments No 0 (1 standard drink = 0.6 oz pur e alcohol) Social Connection and Isolat ion Panel [NHANES] Answer Date Recorded Frequency of Communication w ith Friends and Family More than three times a week 12/07/2018 Frequency of Social Gatherin gs with Friends and Family Three times a week 12/07/2018 Attends Hindu Services Never 12/07 Active Member of Clubs or Organizations No 12/07/2018 Attends Club or Organization Meetings Never 12/07/2018 Marital Status Patient declined 12/07/2018 AUDIT-C Answer Date Recorded Frequency of Alcohol Consumption Never 12/07/2018 Average Number of Drinks Patient declined 2018 Frequency of Binge Drinking Never 11/17 PHQ-2 Answer Date Recorded PHQ-2 Score 0 09/05/2021 [facility]at [facility] - Occupational Stress Questionnaire Answer Date Recorded Feeling of Stress Not at all 12/07/2018 Exercise Vital Sign Answer Date Recorde d On average, how many days pe r week do you engage in moderate to strenuous exercise (like a brisk walk)? 3 days 09/04/2021 On average, how many minutes do you engage in exercise at this level? 30 min 09/04/2021 Hunger Vital Sign Answer Date Recorded Within the past 12 months, y ou worried that your food would run out before you got the money to buy more. Never true 09/04/19 22 Within the past 12 months, t he food you bought just didn't last and you didn't have money to get more. Never true 09/04/2021 PRAPARE - Transportation Answer Date Re corded In the past 12 months, has l ack of transportation kept you from medical appointments or from getting medications? No 09/04/2021 Lack of Transportation (Non-Medical) Not on file 09/04/2021 Housing Stability Vital Sign Answer Ti e Recorded In the last 12 months, was t here a time when you were not able to pay the mortgage or rent on time? No 09/04/2021 Number of Places Lived in the Last Year Not on f ile 09/04/2021 In the last 12 months, was t here a time when you did not have a steady place to sleep or slept in a fpc (including now)? No 09/04/2021 Education Answer Date Recorded What is the highest level of school you have completed or the highest degree you have received? 10th grade 12/07/2018 Comments No Sex and Gender Information Value Date Recorded Sex Assigned at Female 09/04/2021 9:00 PM LOSS PREVENTION OFFICER Legal Sex Female 4:25 AM LOSS PREVENTION OFFICER Gender Identity Female 09/04/2021 9:00 PM LOSS PREVENTION OFFICER Sexual Orientation Straight 09/04/2021 9: 00 PM LOSS PREVENTION OFFICER COVID-19 Exposure Response Date Recorded In the last 10 days, have yo u been in contact with someone who was confirmed or suspected to have Coronavirus/COVID-19? No / Unsure 07/16/2022 12:48 PM LOSS PREVENTION OFFICER documented as of this encounter Plan of Treatment Upcoming Encounters Date Type Department Care Team (Late st Contact Info) Description 07/04/2024 2:30 PM LOSS PREVENTION OFFICER Office Visit [facility] [address] [place] [address] Alber Estrada PA-C [address] [address] [place] [address] 07/05/2024 2:00 PM LOSS PREVENTION OFFICER Office Visit [facility] [address] [place] [phone] Caitlin Tarango, CNM [address] [place] [address] documented as of this encounter Visit Diagnoses Not on filedocumented in this encounter Additional Health Concerns Infection Onset Date Last Indicated Resolved Time Rule Out COVID-19 03/02/2023 03/02/2023 03/02/2023 7:24 PM CDT Rule Out COVID-19 04/28/2023 04/28/2023 04/28/2023 1:13 AM CDT Rule Out COVID-19 05/04/2023 05/04/2023 05/04/2023 8:26 PM CDT Rule Out COVID-19 05/19/2023 05/19/2023 05/20/2023 12:58 AM CDT Rule Out COVID-19 06/17/2023 06/17/2023 06/17/2023 2:16 AM LOSS PREVENTION OFFICER Rule Out C-difficile 07/21/2023 07/21/2023 8:45 AM LOSS PREVENTION OFFICER Rule Out COVID-19 11/07/2023 11/07/2023 11/07/2023 10:43 PM CDT Assessment Noted Time PHQ-9 Depression Total Score: 6 09/05/19 22 1:00 PM LOSS PREVENTION OFFICER documented as of this encounter Care Teams Plastic Joint Maker Relationship Specialty Start Date End Date Alber Estrada PA-C [address] [address] [place] [address] PCP - General Family Medicine 06/19/22 07/15/22 No Ref-Primary, Physician PCP - General 08/27/22 11/02/23 Alber Estrada PA-C [address] [address] [place] [address] PCP - General Family Medicine 11/03/23 Tc Jama MD [facility] [address] [address] Pediatric Surgery 02/14/20 [place] [address] [place] [address] [id number] Assigned Sleep Provider 01/31/21 3 Navid Paige MD [address] [place] [address] 979245 Assigned Musculoskeletal Provider 03/16/21 09/11/22 Alber Estrada PA-C [address] [address] [place] [address] Assigned PCP 09/07/21 Maxine Patel CNM [address] [place] [address] Assigned OBGYN Provider 07/25/2207/02 Navid Regalado MD [address] [place] [address] Dermatology 04/30/23 Willow Mcnulty APRN CAREER MANAGER [address] [address] Nurse Practitioner Nurse Practitioner Primary Care 06/02/23 Lashae Holt APRN CAREER MANAGER 1600 [facility] [address] [place] [address] Nurse Practitioner Pain Medicine 06/02/23 Irma Isaac, DIRECTOR CORPORATE COMMUNICATIONS Clinic Senior Grants Officer Primary Care - CC 06/08/23 Lamont Marcus MD [address] [facility] 100 [place] [address] processor grain 06/25/23 Irma Isaac, DIRECTOR CORPORATE COMMUNICATIONS Lead Senior Grants Officer Primary Care - CC 06/29/23 07/13/23 Alber Estrada PA-C [address] [facility] [place] [place] [address] Assigned Pain Medication Provider 07/03/23 08/11/23 Lamont Marcus MD [address] [facility] 100 [place] [address] Assigned OBGYN Provider 07/03/2307/16 Esau Monet MD [address], [facility] 100 [place] [address] Assigned OBGYN Provider 07/17/23 Ahmet Almaguer MD [address] [place] [address] Assigned Surgical Provider 08/20/23 11/08/23 Liv Olson PA-C [address] [facility] 377 [place] [address] Physician Tire Bagger Urology 09/23/23 Eda Duarte MD 420 [facility] [address] [place] [address] Assigned Surgical Provider 11/09/23 12/08/23 Karoline Su, [facility] [address] [place], [place] [id number] Assigned Behavioral Health Provider 11/09/23 Navid Regalado MD [address] [place], [place] [address] Assigned Surgical Provider 12/09/23 Cony Cameron RN RN Clinical Product Navigator Primary Care - CC 04/10/24 04/10/24 Chip Crane LSW Clinic Senior Grants Officer Primary Care - CC 04/10/24 4 Caitlin Tarango CNM [address] [address] Rigging Helper processor grain 05/31/24 documented as of this encounter
--- OUTSIDE RECORDS SUMMARY | 2024-06-14 09:55 | XMS_ITS | Encounter Summary ---
Author Organization [facility] Address [facility] [place] [address] Care Team Providers Care [employer] Member Name Role Phone Tc Jama MD Unavailable [phone] Alber Estrada PA-C Unavailable + [phone] Navid Regalado MD Unavailable [phone] Willow Mcnulty APRN BLASTING MACHINE OPERATOR Unavailable [phone] Lashae Holt CIGARETTE STAMPER BLASTING MACHINE OPERATOR Unavailable + Lamont Marcus MD Unavailable [phone] Esau Monet MD Unavailable [phone] Liv Olson PA-C Unavailable Alber Estrada PA-C Primary Care Provider Karoline Su DIRECTOR MEDICAL SCIENCE Unavailable [phone] Navid Regalado MD Unavailable [phone] Encounter Details Date Type Department Care Team (Latest Contact Info) Description 04/08/2024 Travel Social History Tobacco Use Types Packs/Day [...] declined 10/26/2023 How often do you attend zoroastrian or cheondoism serv ices? Never 10/26/2023 Do you belong to any clubs o r organizations such as zoroastrian groups, unions, fraternal [...] 08/23/2023 PHQ-2 Answer Date Recorded PHQ-2 Score 1 03/28/2024 [facility] - Occupational Stress Questionnaire Answer Date [...] in an abandoned building, in an overnight care home, or couch-surfing.) Yes 10/26/2023 Are you worried [...] motionally safe where you currently live? Yes 10/26/2023 Within the past 12 months, h ave you been hit, slapped, kicked or otherwise physically hurt by someone? No 10/26/2023 Within the past 12 months, h ave you been humiliated or emotionally abused in other ways by your partner or ex-partner? No 10/26/2023 Education Answer Date Recorded What is the highest level of school you have completed or the highest degree you have received? 10th grade 12/07/2018 Comments No Sex and Gender Information Value Date Recorded Sex Assigned at Female 09/04/2021 9:00 PM REGULATORY PRODUCT MANAGER Legal Sex Female 4:25 AM REGULATORY PRODUCT MANAGER Gender Identity Female 09/04/2021 9:00 PM REGULATORY PRODUCT MANAGER Sexual Orientation Straight 09/04/2021 9: 00 PM REGULATORY PRODUCT MANAGER documented as of this encounter Plan of Treatment Upcoming Encounters Date Type Department Care Team (Late st Contact Info) Description 07/04/2024 2:30 PM REGULATORY PRODUCT MANAGER Office Visit [facility] [address] [place] [address] Alber Estrada PA-C [address] [place] [address] 07/05/2024 2:00 PM REGULATORY PRODUCT MANAGER Office Visit [facility] [place] [address] [place] [address] Caitlin Tarango, CNM [address] [place] [address] documented as of this encounter Goals Goal Patient Goal Type Associated Problems Recent Progress Patient-Stated? Author I would like additional resources and support to manage my health and prevent future avoidable ED visits/hospital admissions Care Plan Increased risk of re-admission 40%( 3 9:21 AM REGULATORY PRODUCT MANAGER) No Irma Isaac LSW Note: Barriers: I [...] about symptoms I am having by calling [phone]. 3. I will talk with my PCP about my specific health concerns and when it is appropriate for me to go to urgent care and/or ED. Improve management of mental health symptoms and establish with mental health/psychosocia l supports Care Plan Mental Health Symptoms Need Improvement 10%( 3 9:21 AM REGULATORY PRODUCT MANAGER) No Irma Isaac LSW Note: Barriers: Therapy [...] as needed when I feel anxious. 4. Publication Distributor and I will check to see if I can access mental health support through my DD waiver. documented as of this encounter Visit Diagnoses Not on filedocumented in this encounter Additional Health Concerns Active Problems Noted Date Diagnosed Date Increased risk of re-admission 06/17/2023 Mental Health Symptoms Need Improvement 12/04/20 23 Assessment Noted Time PHQ-9 Depression Total Score: 11 024 1:58 PM CDT documented as of this encounter Care Teams National Guard Member Relationship Specialty Start Date End Date Alber Estrada PA-C [address] [facility] [place] [address] PCP - General Family Medicine 11/03/23 Tc Jama MD [address] [place] [address] Pediatric Surgery 02/14/20 Alber Estrada PA-C [address] [facility] [place] [address] Assigned PCP 09/07/21 Navid Regalado MD [address] [place], [place] [address] Dermatology 04/30/23 Willow Mcnulty APRN BLASTING MACHINE OPERATOR [address] 5067[address] Nurse Practitioner Nurse Practitioner Primary Care 06/02/23 Lashae Holt APRN BLASTING MACHINE OPERATOR [address] [address] Nurse Practitioner Pain Medicine 06/02/23 Lamont Marcus MD [address] [address] dumper operator 06/25/23 Esau Monet MD [address] 67[address]67 Assigned OBGYN Provider 07/17/23 Liv Olson PA-C [address] [address] Physician Swimming Pool Attendant Urology 09/23/23 Karoline Su, [facility] [address] [place] [address] Assigned Behavioral Health Provider 11/09/23 Navid Regalado MD [address] [place], [place] [address] Assigned Surgical Provider 12/09/23 documented as of this encounter
--- OUTSIDE RECORDS SUMMARY | 2024-06-14 09:55 | XMS_ITS | Encounter Summary ---
Author Organization [facility] Address [address] [place] [address] Care Team Providers Care Monotype Setter Name Role Phone cT Jama MD Unavailable [phone] Alber Estrada PA-C Unavailable + [phone] Navid Regalado MD Unavailable [phone] Willow Mcnulty APRN CONTENT PUBLISHER Unavailable [phone] Lashae Holt OIL DISTRIBUTOR CONTENT PUBLISHER Unavailable + Lamont Marcus MD Unavailable [phone] Esau Monet MD Unavailable [phone] Liv Olson PA-C Unavailable Alber Estrada PA-C Primary Care Provider Karoline Su VASCULAR RADIOLOGIST Unavailable [phone] Navid Regalado MD Unavailable [phone] Reason for Visit * Reason Comments Diarrhea Follow Up Encounter Details Date Type Department Care Team (Late st Contact Info) Description 03/28/2024 2:30 PM CDT Office Visit [facility] [address] [place] [address] Alber Estrada PA-C [address] [place] [address] Slow transit constipation (Primary Dx); Bowel habit changes; Mood disorder (H) Social History Tobacco Use Types Packs/Day Years [...] declined 10/26/2023 How often do you attend adventist or jewish serv ices? Never 10/26/2023 Do you belong to any clubs o r organizations such as adventist groups, unions, fraternal [...] Answer Date Recorded PHQ-2 Score 1 03/28/2024 [facility] - [...] in an abandoned building, in an overnight mcc, or couch-surfing.) Yes 10/26/2023 Are you worried [...] Sex Assigned at Female 09/04/2021 9:00 PM SUMO WRESTLER Legal Sex Female 4:25 AM SUMO WRESTLER Gender Identity Female 09/04/2021 9:00 PM SUMO WRESTLER Sexual Orientation Straight 09/04/2021 9: 00 PM SUMO WRESTLER documented as of this encounter Last Filed Vital Signs Vital Sign Reading Time Taken Comments Blood Pressure 107/76 03/28/2024 2:18 PM CDT Pulse 81 03/28/2024 2:18 PM CDT Temperature 36.8 C (98.2 F) 03/28/2024 2:18 PM CDT Respiratory Rate 25 03/28/2024 2:18 PM CDT Oxygen Saturation 97% 03/28/2024 2:18 PM CDT Inhaled Oxygen Concentration - - Weight 101.9 kg (224 lb 9.6 oz) 03/28/2024 2:18 PM CDT Height 172.7 cm (5' 7.99) 03/28/2024 2:18 PM CD T Body Mass Index 34.16 03/28/2024 2:18 PM CDT documented in this encounter Patient Instructions * Patient Instructions* Alber Estrada PA-C - 03/28/2024 2:30 PM CDT For the ongoing stomach pains/difficult bowel movements I think it is absolutely the most importantpiece to fix the constipation. I think that you may have to take a step backwards before moving forwards with the bowels ie you may have to take some medications that help in the fpc but create a bit of discomfort initially. I recommend starting on daily FIBER gummies/capsules - follow the directions on the bottle you purchase. I would also recommend starting a daily senna-s tablet (bowel stimulant/softener) for the next week, once daily. You can stop this if bowels are improving. Over the next 2-4 weeks you will start to see an improvement but please be focused on continuing at least one month (ultimately probably for a l avelino time to keep the bowels regular) Get your FLU/COVID shot in early to mid April documented in this encounter Progress Notes * Alber Estrada PA-C - 03/28/2024 2:30 PM CDT Assessment & Plan Slow transit constipation Bowel habit changes Continue to suspect constipation and overload issues. She did not follow my prior recommendations so will restart fiber and try below. Ill send a note in one week for update - SENNA-docusate sodium (SENNA S) 8.6-50 MG tablet; Take 1 tablet by mouth daily. For one week or until bowels are more regular Mood disorder (H24) Follows with specialty BMI Estimated body mass index is 34.16 kg/m?? as calculated from the following: Height as of this encounter: 1.727 m (5' 7.). Weight as of this encounter: 101.9 kg (224 lb 9.6 oz). Leonardo Champagne is a 24 year old, presenting for the following health issues: Diarrhea and Follow Up 03/28/2024 2:16 PM Additional Questions Roomed by PETRA THOMPSON Accompanied by Self 03/28/2024 2:16 PM Patient Reported Additional Medications Patient reports taking the following new medications None History of Present Illness Reason for visit: Health problems/ questions She is taking medications regularly. Mahi Faye is a 24 year old female who presents today for discussion of ongoing GI symptoms She does believe it started soon after her cholecystectomy She mentions pain in the stomach - feels like getting punched in the stomach at times Having intermittent constipation; nausea; easy fullness Diarrhea also intermittent -most days; using some antidiarrhea medicine Did try fiber supplements but seemed to cause nausea and stopped Tried only for a week or less Trying to limit soda; adding more water Review of Systems Constitutional, HEENT, cardiovascular, pulmonary, gi and gu systems are negative, except as otherwise noted. Objective BP 107/76 (BP Location: Right arm, Patient Position: Sitting, Cuff Size: Adult Large) Pulse 81 Temp 98.2 ??F (36.8 ??C) (Oral) Resp 25 Ht 1.727 m (5' 7.99) Wt 101.9 kg (224 lb 9.6 oz) SpO2 97% BMI 34.16 kg/m?? Body mass index is 34.16 kg/m??. Physical Exam GENERAL: alert and no distress RESP: lungs clear to auscultation - no rales, rhonchi or wheezes CV: regular rate and rhythm, normal S1 S2, no S3 or S4, no murmur, click or rub, no peripheral edema ABDOMEN: soft, nontender, bowel sounds normal, and no palpable or pulsatile masses Signed Electronically by: Alber Estrada PA-C documented in this encounter Plan of Treatment Upcoming Encounters Date Type Department Care Team (Late st Contact Info) Description 07/04/2024 2:30 PM SUMO WRESTLER Office Visit [facility] [address] [place] [address] Alber Estrada PA-C [address] [place], [place] [id number] 07/05/2024 2:00 PM SUMO WRESTLER Office Visit [facility] [address] [place] [address] Caitlin Tarango, CNM [address] [facility] 700 [place] [address] documented as of this encounter Goals Goal Patient Goal Type Associated Problems Recent Progress Patient-Stated? Author I would like additional resources and support to manage my health and prevent future avoidable ED visits/hospital admissions Care Plan Increased risk of re-admission 40%( 3 9:21 AM SUMO WRESTLER) No Irma Isaac, JAVI Note: Barriers: I have been to the [...] about symptoms I am having by calling [phone]. 3. I will talk with my PCP about my specific health concerns and when it is appropriate for me to go to urgent care and/or ED. Improve management of mental health symptoms and establish with mental health/psychosocia l supports Care Plan Mental Health Symptoms Need Improvement 10%( 3 9:21 AM SUMO WRESTLER) No Irma Isaac, JAVI Note: Barriers: Therapy has not been [...] as needed when I feel anxious. 4. 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 documented as of this encounter Visit Diagnoses Diagnosis Slow transit constipation- Primary Bowel habit changes Other symptoms involving digestive system Mood disorder (H) Unspecified episodic mood disorder documented in this encounter Additional Health Concerns Active Problems Noted Date Diagnosed Date Increased risk of re-admission 06/17/2023 Mental Health Symptoms Need Improvement 06/21/20 23 Assessment Noted Time PHQ-9 Depression Total Score: 11 024 1:58 PM CDT documented as of this encounter Care Teams Monotype Setter Relationship Specialty Start Date End Date Alber Estrada PA-C [address] [address] [place] [address] PCP - General Family Medicine 11/03/23 Tc Jama MD [address] [place] [address] Pediatric Surgery 02/14/20 Alber Estrada PA-C [address] [address] [facility] [place] [address] Assigned PCP 09/07/21 Navid Regalado MD [address] [place] [address] Dermatology 04/30/23 Willow Mcnulty APRN CONTENT PUBLISHER [address] [place] [address] Nurse Practitioner Nurse Practitioner Primary Care 06/02/23 Lashae Holt APRN CONTENT PUBLISHER 1600 [facility] 101 [place] [address] Nurse Practitioner Pain Medicine 06/02/23 Lamont Marcus MD [address] [facility] 100 [place] [address] physician intensivist 06/25/23 Esau Monet MD [address] [facility], [facility] [address] [place], [place] [address] Assigned OBGYN Provider 07/17/23 Liv Olson PA-C [address] [facility] [address] [place] [address] Physician Bottom Turning Lathe Tender Urology 09/23/23 Karoline Su, [facility] [address] [place], [place] [id number] Assigned Behavioral Health Provider 11/09/23 Navid Regalado MD [address] [place], [place] [address] Assigned Surgical Provider 12/09/23 documented as of this encounter
--- OUTSIDE RECORDS SUMMARY | 2024-06-14 09:55 | XMS_ITS | Encounter Summary ---
Author Organization [place] Address [facility] [place] [address] Care Team Providers Care Translator/Interpreter Name Role Phone Tc Jama MD Unavailable [phone] Alber Estrada PA-C Unavailable [phone] Maxine PatelM Unavailable No Ref-Primary, Physician Primary Care Provider Navid Regalado MD Unavailable [phone] Willow Mcnulty APRN CORE BLOWER Unavailable [phone] Lashae Holt BEAD FILLER CORE BLOWER Unavailable + Irma Isaac RETAIL SERVICE TECHNICIAN Unavailable [phone] Lamont Marcus MD Unavailable [phone] Irma Isaac RETAIL SERVICE TECHNICIAN Unavailable [phone] Alber Estrada PA-C Unavailable +[phone] Lamont Marcus MD Unavailable [phone] Esau Monet MD Unavailable [phone] Ahmet Almaguer MD Unavailable [phone] Liv Olson PA-C Unavailable Estrada, Alber Bebo PA-C Primary Care Provider Eda Duarte MD Unavailable [phone] Karoline Su [facility] Unavailable Navid Regalado MD Unavailable [phone] Cony Cameron RN Unavailable [phone] Chip Crane RETAIL SERVICE TECHNICIAN Unavailable Caitlin Tarango CNM Unavailable [phone] Reason for Visit * Reason Onset Date Comments 911 Called 06/15/2023 Encounter Details Date Type Department Care Team ([facility] Contact Info) Description 06/15/2023 Telephone [facility] Behavioral Health Intake [address] [place] [id number] Generic, Behavioral Intake, 911 Called Social History Tobacco Use Types Packs/Day Years [...] Family Three times a week 12/07/2018 Attends Temple Services Never 12/07 Active Member of Clubs or Organizations No 12/07/2018 Attends Club or Organization Meetings Never 12/07/2018 Marital Status Patient declined 12/07/2018 AUDIT-C Answer Date Recorded Frequency of Alcohol Consumption Never 12/07/2018 Average Number of Drinks Patient declined 2018 Frequency of Binge Drinking Never 11/17 PHQ-2 Answer Date Recorded PHQ-2 Score 1 06/17/2023 [facility]at ional [facility] - Occupational Stress [...] exercise at this level? 30 min 09/04/2021 Adolescent Education Answer Date Record ed Getting School Help Needed Not on file 04/21 Food Insecurity Answer Date Recorded Within the past 12 months, d id you worry that your food would run out before you got money to buy more? Yes 06/17/2023 Within the past 12 months, d id the food you bought just not last and you didn t have money to get more? No 06/17/2023 Housing Stability Answer Date Recorded Do you have housing? (Wilder lyles is defined as stable permanent housing and does not include staying ouside in a car, in a tent, in an abandoned building, in an overnight detention, or couch-surfing.) Yes 06/17/2023 Are you worried about losing your housing? No 06/17/2023 Financial Resource Strain Answer Date R ecorded Within the past 12 months, h ave you or your family members you live with been unable to get utilities (heat, electricity) when it was really needed? No 06/17/2023 Transportation Needs Answer Date Record ed Within the past 12 months, h as lack of transportation kept you from medical appointments, getting your medicines, non-medical meetings or appointments, work, or from getting things that you need? Yes 06/17/2023 Interpersonal Safety Answer Date Record ed Do you feel physically and e motionally safe where you currently live? Yes 06/07/2023 Within the past 12 months, h ave you been hit, slapped, kicked or otherwise physically hurt by someone? No 06/07/2023 Within the past 12 months, h ave you been humiliated or emotionally abused in other ways by your partner or ex-partner? No 06/07/2023 Education Answer Date Recorded What is the highest level of school you have completed or the highest degree you have received? 10th grade 12/07/2018 Comments No Sex and Gender Information Value Date Recorded Sex Assigned at Female 09/04/2021 9:00 PM RESEARCH ENGINEER Legal Sex Female 4:25 AM RESEARCH ENGINEER Gender Identity Female 09/04/2021 9:00 PM RESEARCH ENGINEER Sexual Orientation Straight 09/04/2021 9: 00 PM RESEARCH ENGINEER documented as of this encounter Miscellaneous Notes * Telephone Encounter - Chriss Gardiner - 06/15/2023 9:41 AM CST Pt called [facility] scheduling stating they were expecting someone to reach out to them. Account Auditor saw a referral for [facility] and asked if they were expecting a call for short term psychiatry. Pt stated they were told they were being referred to jail. Account Auditor explained that short term can refer to damage adjuster, but stated they should have gotten a damage adjuster referral from the start. Account Auditor offered to schedule damage adjuster outside of [place], pt stated they needed to go within [place]. Account Auditor explained inthis case they need to go back to the provider that made the referral and request a damage adjuster referral. Pt stated that provider switched it up on her and that they probably won't be able to get in for a long time so they will just go kill themselves then hung up. Account Auditor called 911 for a welfare check. ARCH ENGINEER documented in this encounter Plan of Treatment Upcoming Encounters Date Type Department Care Team (Late st Contact Info) Description 07/04/2024 2:30 PM RESEARCH ENGINEER Office Visit [facility] [address] [place] [phone] Alber Estrada PA-C [address] [place] [address] 07/05/2024 2:00 PM RESEARCH ENGINEER Office Visit [facility] [address] [place] [phone] Caitlin Tarango, [facility] [address] [place] [address] [address] [place] [address] documented as of this encounter Visit Diagnoses Not on filedocumented in this encounter Additional Health Concerns Infection Onset Date Last Indicated Resolved Time Rule Out COVID-19 06/17/2023 06/17/2023 06/17/2023 2:16 AM RESEARCH ENGINEER Rule Out C-difficile 07/21/2023 07/21/2023 024 8:45 AM RESEARCH ENGINEER Rule Out COVID-19 11/07/2023 11/07/202311/0611/07/2023 10:43 PM CDT Assessment Noted Time PHQ-9 Depression Total Score: 20 023 10:26 AM RESEARCH ENGINEER documented as of this encounter Care Teams Translator/Interpreter Relationship Specialty Start Date End Date No Ref-Primary, Physician PCP - General 08/27/22 11/02/23 Alber Estrada PA-C [address] [place], [place] [id number] PCP - General Family Medicine 11/03/23 Tc Jama MD [facility] [phone] Pediatric Surgery 02/14/20 Alber Estrada PA-C [address] [place], [place] [phone] Assigned PCP 09/07/21 Maxine Patel CNM [address] [place], [place] [address] Assigned OBGYN Provider 07/25/2207/02 Navid Regalado MD [address] [place], [place] [phone] Dermatology 04/30/23 Willow Mcnulty APRN CORE BLOWER [address] [place] [id number] Nurse Practitioner Nurse Practitioner Primary Care 06/02/23 Lashae Holt APRN CORE BLOWER [address] [id number] Nurse Practitioner Pain Medicine 06/02/23 Irma Isaac, [facility] Clinic Regional Marketing Director Primary Care - CC 06/08/23 Lamont Marcus MD [address] [place] [address] on line csr 06/25/23 Irma Isaac, [facility] Lead Regional Marketing Director Primary Care - CC 06/29/2306/19 Alber Estrada PA-C [address] [facility] [place] [place] [address] Assigned Pain Medication Provider 07/03/23 08/11/23 Lamont Marcus MD [address] [address] Assigned OBGYN Provider 07/03/2307/16 Esau Monet MD [address], [address] [address] Assigned OBGYN Provider 07/17/23 Ahmet Almaguer MD [address] [place] [address] Assigned Surgical Provider 08/20/23 11/08/23 Liv Olson PA-C [address] [address] Physician [employer] Manager Urology 09/23/23 Eda Duarte MD [address] [place] [address] Assigned Surgical Provider 11/09/23 12/08/23 Karoline Su, [facility] [address] [place] [address] Assigned Behavioral Health Provider 11/09/23 Navid Regalado MD [address] [place], [place] [address] Assigned Surgical Provider 12/09/23 Cony Cameron RN RN Clinical Product Navigator Primary Care - CC 04/10/24 04/10/24 Chip Crane [facility] Clinic Regional Marketing Director Primary Care - CC 04/10/24 Caitlin Tarango CNM [address] [facility] [address] [place] [address] System Administrator on line csr 05/31/24 documented as of this encounter
--- OUTSIDE RECORDS SUMMARY | 2024-06-14 09:55 | XMS_ITS | Encounter Summary ---
Author Organization [facility] Address [address] [place] [address] Care Team Providers Care Ironer Name Role Phone Tc Jama MD Unavailable [phone] Alber Estrada PA-C Unavailable [phone] Navid Regalado MD Unavailable [phone] Willow Mcnulty APRN DIABETES MANAGER Unavailable [phone] Lashae Holt DEBONE PROCESSING SUPERVISOR DIABETES MANAGER Unavailable + Lamont Marcus MD Unavailable [phone] Esau Monet MD Unavailable [phone] Liv Olson PA-C Unavailable Alber Estrada PA-C Primary Care Provider Karoline Su [facility] Unavailable [phone] Navid Regalado MD Unavailable [phone] Reason for Visit * Reason Comments Abdominal Pain Encounter Details Date Type Department Care Team (Late st Contact Info) Description 04/08/2024 2:04 AM CDT - 04/08/2024 3:58 AM CDT [facility] Emergency Dept [address] [place] [phone] Esau Sawant MD EMERGENCY PHYSICIAN [facility] [address] [place] [address] Chronic constipation Discharge Disposition: Home or Self Care Social [...] declined 10/26/2023 How often do you attend cheondoism or mosque serv ices? Never 10/26/2023 Do you belong to any clubs o r organizations such as cheondoism groups, unions, fraternal [...] Answer Date Recorded PHQ-2 Score 1 03/28/2024 [facility] - Occupational Stress [...] in an abandoned building, in an overnight penitentiary, or couch-surfing.) Yes 10/26/2023 Are you worried [...] Sex Assigned at Female 09/04/2021 9:00 PM FELT HAT POUNCING OPERATOR HAND Legal Sex Female 4:25 AM FELT HAT POUNCING OPERATOR HAND Gender Identity Female 09/04/2021 9:00 PM FELT HAT POUNCING OPERATOR HAND Sexual Orientation Straight 09/04/2021 9: 00 PM FELT HAT POUNCING OPERATOR HAND documented as of this encounter Last Filed Vital Signs Vital Sign Reading Time Taken Comments Blood Pressure 128/91 04/08/2024 2:22 AM CDT Pulse 84 04/08/2024 2:22 AM CDT Temperature 37.5 C (99.5 F) 04/08/2024 1:45 AM CDT Respiratory Rate 20 04/08/2024 1:45 AM CDT Oxygen Saturation 97% 04/08/2024 2:27 AM CDT Inhaled Oxygen Concentration - - Weight 105.3 kg (232 lb 2.3 oz) 04/08/2024 1:45 AM CDT Height 172.7 cm (5' 8) 04/08/2024 1:45 AM CDT Body Mass Index 35.3 04/08/2024 1:45 AM CDT documented in this encounter Discharge Instructions * Attachments The following attachments cannot be sent through Care Everywhere. * Constipation (Slovak) documented in this encounter Medications at Time of Discharge polyethylene glycol (MIRALAX) 17 GM/Dose powder Take 17 g (1 Capful) by mouth 2 times daily for 7 days. 238 g 04/08/2024 04/15/2024 SENNA-docusate sodium (SENNA S) 8.6-50 MG tabletIndications :Slow transit constipation,Elisha l habit changes Take 1 tablet by mouth daily. For one week or until bowels are more regular 30 tablet 03/28/2024 04/27/2024 documented as of this encounter ED Notes * Cristin Turner, JAZMYNE - 04/08/2024 3:57 AM CDT Pt discharged, IV removed, AVS given, Health teaching rendered, Wheeled pt out to the lobby. * Esau Sawant MD - 04/08/2024 3:21 AM CDT History Chief Complaint: Abdominal Pain HPI Mahi Faye is a 24 year old female with constipation issues. States has not pooped in days to a week. Told nurses 2 months. But also reports diarrhea yesterday and reviewed PCP notes ongoing care for constipation. No vomiting. No fever no chills. No new abd pain. 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 Mahendra Worthington, [facility] LAPAROSCOPIC CHOLECYSTECTOMY N/A 06/26/2023 Procedure: CHOLECYSTECTOMY, LAPAROSCOPIC; Surgeon: Ahmet Almaguer MD; Location: [facility] OR Physical Exam Patient Vitals for the past 24 hrs: BP Temp Temp src Pulse Resp SpO2 Height Weight 04/08/24 0222 (!) 128/91 -- -- 84 -- 99 % -- -- 04/08/24 0145 (!) 151/93 99.5 ??F (37.5 ??C) Temporal 86 20 100 % 1.727 m (5' 8) 105.3 kg (232 lb 2.3 oz) Physical Exam General: Patient is well appearing. No distress. Head: Atraumatic. Eyes: Conjunctivae and EOM are normal. No scleral icterus. Neck: Normal range of motion. Neck supple. Cardiovascular: Normal rate, regular rhythm, normal heart sounds and intact distal pulses. Pulmonary/Chest: Breath sounds normal. No respiratory distress. Abdominal: Soft. Bowel sounds are normal. No distension. No tenderness. No rebound or guarding. Musculoskeletal: Normal range of motion. Skin: Warm and dry. No rash noted. Not diaphoretic. Emergency Department Course ECG Imaging: Abdomen XR 1 vw Final Result IMPRESSION: Supine views of the abdomen and pelvis were obtained. Moderate amount of stool in the right colon, otherwise nonobstructive bowel gas pattern. No free peritoneal or portal venous gas. Right upper quadrant postcholecystectomy clips. A few pelvic phleboliths. Laboratory: Labs Ordered and Resulted from Time of ED Arrival to Time of ED Departure COMPREHENSIVE METABOLIC PANEL - Abnormal Result Value Sodium 139 Potassium 4.0 Carbon Dioxide (CO2) 23 Anion Gap 11 Urea Nitrogen 8.1 Creatinine 0.92 GFR Estimate 90 Calcium 9.2 Chloride 105 Glucose 111 (*) Alkaline Phosphatase 113 AST 12 ALT 11 Protein Total 7.3 Albumin 4.5 Bilirubin Total 0.2 CBC WITH PLATELETS AND DIFFERENTIAL - Abnormal WBC Count 10.2 RBC Count 4.15 Hemoglobin 11.0 (*) Hematocrit 34.4 (*) MCV 83 MCH 26.5 MCHC 32.0 RDW 13.2 Platelet Count 327 % Neutrophils 65 % Lymphocytes 29 % Monocytes 4 % Eosinophils 1 % Basophils 1 % Immature Granulocytes 0 NRBCs per 100 WBC 0 Absolute Neutrophils 6.6 Absolute Lymphocytes 3.0 Absolute Monocytes 0.5 Absolute Eosinophils 0.1 Absolute Basophils 0.1 Absolute Immature Granulocytes 0.0 Absolute NRBCs 0.0 LIPASE - Normal Lipase 19 ROUTINE UA WITH MICROSCOPIC REFLEX TO CULTURE HCG QUALITATIVE URINE Procedures Emergency Department Course & Assessments: Interventions: Medications ondansetron (ZOFRAN) injection 4 mg (4 mg Intravenous $Given 04/08/24 0144) sodium chloride 0.9% BOLUS 1,000 mL (1,000 mLs Intravenous $New Bag 04/08/24 9193) Assessments: Independent Interpretation (X-rays, CTs, rhythm strip): KUB. No large obstructions abnormal bowel gas or free air patterns. Consultations/Discussion of Management or Tests: Social Determinants of Health affecting care: Disposition: The patient was discharged. Impression & Plan Medical Decision Making: Mahi Faye is a 24 year old female who presents for evaluation for decreased stool output without signs of serious intraabdominal problems. Signs and symptoms are consistent with constipation. There are no signs at this point for a need for rectal disimpaction. There are no signs of obstruction nor other intraabdominal catastrophe. There are no indications for advanced imaging or admission. I am going to send them home with instructions on medication management of this. They will then start daily stool softener as well once they are more completely cleaned out. Patient is agreeable with this and questions are answered. Diagnosis: ICD-10-CM 1. Chronic constipation K59.09 Discharge Medications: New Prescriptions POLYETHYLENE GLYCOL (MIRALAX) 17 GM/DOSE POWDER Take 17 g (1 Capful) by mouth 2 times daily for 7 days. 04/08/2024 Esau Sawant MD Stevens, Andrew C, MD 04/08/24 0325 * Irma Lewis RN - 04/08/2024 1:43 AM CDT Patient arrives with abdominal pain, nausea, and constipation. Per patient hasn't pooped in 2 months. Taking senna s and tried some fiber gummies. documented in this encounter Plan of Treatment Upcoming Encounters Date Type Department Care Team (Late st Contact Info) Description 07/04/2024 2:30 PM FELT HAT POUNCING OPERATOR HAND Office Visit [facility] [address] [place] [address] Alber Estrada PA-C [address] [place] [address] 07/05/2024 2:00 PM FELT HAT POUNCING OPERATOR HAND Office Visit [facility] [address] [place] [phone] Caitlin Tarango, CNM [address] [facility] [address] [place] [address] documented as of this encounter Goals Goal Patient Goal Type Associated Problems Recent Progress Patient-Stated? Author I would like additional resources and support to manage my health and prevent future avoidable ED visits/hospital admissions Care Plan Increased risk of re-admission 40%( 3 9:21 AM FELT HAT POUNCING OPERATOR HAND) No Irma Isaac LSW Note: Barriers: I [...] about symptoms I am having by calling [phone]. 3. I will talk with my PCP about my specific health concerns and when it is appropriate for me to go to urgent care and/or ED. Improve management of mental health symptoms and establish with mental health/psychosocia l supports Care Plan Mental Health Symptoms Need Improvement 10%( 3 9:21 AM FELT HAT POUNCING OPERATOR HAND) No Irma Isaac LSW Note: Barriers: Therapy [...] as needed when I feel anxious. 4. Sales Market Leader and I will check to see if I can access mental health support through my DD waiver. documented as of this encounter Procedures Procedure Name Priority Date/Time Associated Diagnosis Comments XR ABDOMEN 1 VIEW STAT 04/08/2024 2:4 1 AM CDT EXTRA TUBE STAT 04/08/2024 1:47 AM CDT EXTRA RED TOP TUBE STAT 04/08/2024 1: 47 AM CDT EXTRA BLUE TOP TUBE STAT 04/08/2024 1 :47 AM CDT CBC WITH PLATELETS AND DIFFERENTIAL STAT 04/08/2024 1:47 AM CDT CBC WITH PLATELETS & DIFFERENTIAL STAT 04/08/2024 1:47 AM CDT LIPASE STAT 04/08/2024 1:47 AM CDT COMPREHENSIVE METABOLIC PANEL STAT 04/08/2024 1:47 AM CDT documented in this encounter Results * Abdomen XR 1 vw (04/08/2024 2:41 [...] CDT EXAM: XR ABDOMEN 1 VIEW LOCATION: [facility] DATE: 04/08/2024 INDICATION: Constipation. COMPARISON: Abdominal x-ray on 10/22/[address] abdomen and pelvis on 09/27/2023. Procedure Note Blas-Lucrecia Nixon MD - 04/08/2024 EXAM: XR ABDOMEN 1 VIEW LOCATION: [facility] DATE: 04/08/2024 INDICATION: Constipation. COMPARISON: Abdominal x-ray on 10/22/[address] abdomen and pelvis on09/27/2023. IMPRESSION: Supine views of the abdomen and pelvis were obtained. Moderateamount of stool in the right colon, otherwise nonobstructive bowel gaspattern. No free peritoneal or portal venous gas. Right upper quadrantpostcholecystectomy clips. A few pelvic phleboliths. us Esau Sawant MD IMG DIAGNOSTIC IMAGING ORDER LINDSAY Final Result * (ABNORMAL) CBC with platelets and differential [...] LAB - BLOOD ORDERABLES Final Result LABORATORY [facility] [address] Lab (1st floor, no room number) [place] [address] [place] [address] * Extra Red Top Tube (04/08/2024 1:47 AM CDT) Hold Specimen [facility] 04/08/2024 3:01 AM CDT [facility] LABORATORY Blood VENOUS LINE / Unknown Venipuncture / Unknown 04/08/2024 1:47 AM CDT 04/08/2024 1:55 AM CDT Esau Sawant MD LAB - BLOOD ORDERABLES Final Result LABORATORY [facility] [address] Lab (1st floor, no room number) [address] [place] [address] * Extra Blue Top Tube (04/08/2024 1:47 AM CDT) Hold Specimen [facility] 04/08/2024 3:01 AM CDT [facility] LAB[facility]ATORY Blood VENOUS LINE / Unknown Venipuncture / Unknown 04/08/2024 1:47 AM CDT 04/08/2024 1:55 AM CDT Esau Sawant MD LAB - BLOOD ORDERABLES Final Result LABORATORY [facility] [address] Lab (1st floor, no room number) [address] * Lipase (04/08/2024 1:47 AM CDT) Lipase 19 13 - 60 U/L 04/08/2024 2:37 AM CDT LABORATORY Blood VENOUS LINE / Unknown Venipuncture / Unknown 04/08/2024 1:47 AM CDT 04/08/2024 1:55 AM CDT Esau Sawant MD LAB - BLOOD ORDERABLES Final Result Performing Organization Address City/[facility]/ZIP Co de Phone Number LABORATORY [facility] [address] Lab (1st floor, no room number) [address] * (ABNORMAL) Comprehensive metabolic panel (04/08/2024 1:47 AM CDT) Pathologist [facility] Sodium 139 135 - 145 mmol/L 04/08/2024 [...] - 0.95 mg/dL 04/08/2024 2:37 AM CDT LABORATORY GFR Estimate 90 >60 mL/min/1.7 3m2 04/08/2024 2:37 AM CDT LABORATORY Comment:eGFR calculated usin 2020 CKD-EPI equation. [...] 0.2 <=1.2 mg/dL 04/08/2024 2:37 AM CDT LABORATORY Blood VENOUS LINE / Unknown Venipuncture / Unknown 04/08/2024 1:47 AM CDT 04/08/2024 1:55 AM CDT us Esau Sawant MD LAB - BLOOD ORDERABLES Final Result LABORATORY [facility] [address] [facility] Lab (1st floor, no room number) [place] [address], [place] documented in this encounter Visit Diagnoses Diagnosis Chronic constipation Unspecified constipation documented in this encounter Administered Medications Inactive Administered Medications - up to 3 most recent administrations Medication Order MAR Action Action Date Dose Rate Site ondansetron (ZOFRAN) injection 4 mg 4 mg, Intravenous, ONCE, Administer over 2-5 Minutes, On 04/08/24 at 0150, For 1 dose $Given 04/08/2024 1:48 AM CDT 4 mg sodium chloride 0.9% BOLUS 1,000 mL Intravenous, 1,000 mL, ONCE, at 1,000 mL/hr, Administer over 1 Hours, On 04/08/24 at 0150, For 1 dose $New Bag 04/08/2024 2:23 AM CDT 1,000 mLs 1000 mL/hr documented in this encounter Active and Recently Administered Medications Times are shown in CDT. Scheduled Medication Order 04/06/2024 04/07/2024 04/08/2024 ondansetron (ZOFRAN) injection 4 mg (COMPLETED) 4 mg, Intravenous, ONCE, Administer over 2-5 Minutes, On 04/08/24 at 0150, For 1 dose 0148 ($Given - Provi shanna: Irma Lewis RN) sodium chloride 0.9% BOLUS 1,000 mL (COMPLETED) Intravenous, 1,000 mL, ONCE, at 1,000 mL/hr, Administer over 1 Hours, On 04/08/24 at 0150, For 1 dose 0223 ($New Bag - Pro vider: Niya Roberts RN)[id number] (Stopped - Provider: Cristin Turner RN) documented in this encounter Additional Health Concerns Active Problems Noted Date Diagnosed Date Increased risk of re-admission 06/17/2023 Mental Health Symptoms Need Improvement 06/21/20 23 Assessment Noted Time PHQ-9 Depression Total Score: 11 024 1:58 PM CDT documented as of this encounter Care Teams Ironer Relationship Specialty Start Date End Date Alber Estrada PA-C [address] [address] PCP - General Family Medicine 11/03/23 Tc Jama MD [address] [place] [address] Pediatric Surgery 02/14/20 Alber Estrada PA-C [address] [address] [address] Assigned PCP 09/07/21 Navid Regalado MD [address] [place] [address] Dermatology 04/30/23 Willow Mcnulty APRN DIABETES MANAGER [address] [place] [address] Nurse Practitioner Nurse Practitioner Primary Care 06/02/23 Lashae Holt APRN DIABETES MANAGER [address] [facility] 101 [place] [address] Nurse Practitioner Pain Medicine 06/02/23 Lamont Marcus MD [address] [facility] [address] [place] [address] body masker 06/25/23 Esau Monet MD [address], [facility] 100 [place] [address] Assigned OBGYN Provider 07/17/23 Liv Olson PA-C [address] [address] Physician Paralegal Internship Urology 09/23/23 Karoline Su, [facility] [address] [place] [address] Assigned Behavioral Health Provider 11/09/23 Navid Regalado MD [address] [place] [address] Assigned Surgical Provider 12/09/23 documented as of this encounter
--- OUTSIDE RECORDS SUMMARY | 2024-06-14 09:55 | XMS_ITS | Encounter Summary ---
Author Organization [facility] Address [address] [place] [address] Care Team Providers Care Project Production Engineer Name Role Phone Tc Jama MD Unavailable [phone] Alber Estrada PA-C Unavailable Navid Regalado MD Unavailable [phone] Willow Mcnulty APRN WANT AD RECEIVER Unavailable [phone] Lashae Holt CONSTRUCTION EQUIPMENT MECHANIC HELPER WANT AD RECEIVER Unavailable + Lamont Marcus MD Unavailable [phone] Esau Monet MD Unavailable [phone] Liv Olson PA-C Unavailable [phone] Alber Estrada PA-C Primary Care Provider Karoline Su GENERAL ASSIGNMENT REPORTER Unavailable Navid Regalado MD Unavailable [phone] Cony Cameron RN Unavailable [phone] Chip CraneW Unavailable [phone] Caitlin Tarango CN Unavailable [phone] Encounter Details Date Type Department Care Team (Late st Contact Info) Description 01/18/2024 [facility] [address] [address] Navid Regalado MD [address] [place] [address] Social History Tobacco Use Types Packs/Day Years [...] declined 10/26/2023 How often do you attend mandaeism or uatsdin serv ices? Never 10/26/2023 Do you belong to any clubs o r organizations such as mandaeism groups, unions, fraternal [...] PHQ-2 Answer Date Recorded PHQ-2 Score 0 10/26/2023 [facility] Occup[facility] - Occupational Stress [...] in an abandoned building, in an overnight fdc, or couch-surfing.) Yes 10/26/2023 Are you worried [...] Sex Assigned at Female 09/04/2021 9:00 PM ACCOUNTING RECRUITER Legal Sex Female 4:25 AM ACCOUNTING RECRUITER Gender Identity Female 09/04/2021 9:00 PM ACCOUNTING RECRUITER Sexual Orientation Straight 09/04/2021 9: 00 PM ACCOUNTING RECRUITER documented as of this encounter Plan of Treatment Upcoming Encounters Date Type Department Care Team (Late st Contact Info) Description 07/04/2024 2:30 PM ACCOUNTING RECRUITER Office Visit [facility] [address] [place] [address] Alber Estrada PA-C [address] [place] [address] 07/05/2024 2:00 PM ACCOUNTING RECRUITER Office Visit [facility] [address] [place] [address] [place] [address] Sukhdeep Caitlin Gomez, CNM [address] [place], [place] [address] documented as of this encounter Goals Goal Patient Goal Type Associated Problems Recent Progress Patient-Stated? Author I would like additional resources and support to manage my health and prevent future avoidable ED visits/hospital admissions Care Plan Increased risk of re-admission 40%( 3 9:21 AM ACCOUNTING RECRUITER) No Irma Isaac LSW Note: Barriers: I [...] about symptoms I am having by calling [phone]. 3. I will talk with my PCP about my specific health concerns and when it is appropriate for me to go to urgent care and/or ED. Improve management of mental health symptoms and establish with mental health/psychosocia l supports Care Plan Mental Health Symptoms Need Improvement 10%( 9:21 AM ACCOUNTING RECRUITER) No Irma Isaac LSW Note: Barriers: Therapy [...] as needed when I feel anxious. 4. Eradicator and I will check to see if I can access mental health support through my DD waiver. documented as of this encounter Visit Diagnoses Not on filedocumented in this encounter Additional Health Concerns Active Problems Noted Date Diagnosed Date Increased risk of re-admission 06/17/2023 Mental Health Symptoms Need Improvement 06/21/20 Assessment Noted Time PHQ-9 Depression Total Score: 12 024 9:05 AM CDT documented as of this encounter Care Teams Project Production Engineer Relationship Specialty Start Date End Date Alber Estrada PA-C [address] [place] [address] PCP - General Family Medicine 11/03/23 Tc Jama MD [address] [place] [address] Pediatric Surgery 02/14/20 Alber Estrada PA-C [address] [place] [address] Assigned PCP 09/07/21 Navid Regalado MD [address] [place] [address] Dermatology 04/30/23 Willow Mcnulty APRN WANT AD RECEIVER [address] [address] Nurse Practitioner Nurse Practitioner Primary Care 06/02/23 Lashae Holt APRN WANT AD RECEIVER [address] [address] Nurse Practitioner Pain Medicine 06/02/23 Lamont Marcus MD [address] [facility] 100 [place] [address] general superintendent 06/25/23 Esau Monet MD [address], [facility] 100 [place] [address] Assigned OBGYN Provider 07/17/23 Liv Olson PA-C [address] [address] Physician Card Checker Urology 09/23/23 Karoline Su, [facility] [address] [place] [address] Assigned Behavioral Health Provider 11/09/23 Navid Regalado MD 9 [place] [address] Assigned Surgical Provider 12/09/23 Cony Cameron RN RN Clinical Product Navigator Primary Care - CC 04/10/24 04/10/24 Chip Crane LSW Clinic Eradicator Primary Care - CC 04/10/24 Caitlin Tarango CNM [address] [address] Inspector Production Plastic Parts general superintendent 05/31/24 documented as of this encounter
--- OUTSIDE RECORDS SUMMARY | 2024-06-14 09:55 | XMS_ITS | Encounter Summary ---
Author Organization [place] Address [address] [place] [address] Care Team Providers Care Rn Support Services Name Role Phone Tc Jama MD Unavailable [phone] Alber Estrada PA-C Unavailable Navid Regalado MD Unavailable [phone] Willow Mcnulty APRN CHIEF MINISTER Unavailable [phone] Lashae Holt ENGINEERING CLERK CHIEF MINISTER Unavailable + Lamont Marcus MD Unavailable [phone] Esau Monet MD Unavailable Liv Olson PA-C Unavailable Alber Estrada PA-C Primary Care Provider Karoline Su RURAL ROUTE MAIL CARRIER Unavailable [phone] Navid Regalado MD Unavailable Cony Cameron RN Unavailable [phone] Chip CraneW Unavailable [phone] Caitlin Tarango CN Unavailable [phone] Encounter Details Date Type Department Care Team (Late st Contact Info) Description 03/28/2024 [facility] [address] [place] [address] Alber Etsrada PA-C [address] [facility] [place] [place] [id number] Social History Tobacco Use Types Packs/Day Years [...] declined 10/26/2023 How often do you attend anglican or synagogue serv ices? Never 10/26/2023 Do you belong to any clubs o r organizations such as anglican groups, unions, fraternal [...] Answer Date Recorded PHQ-2 Score 1 03/28/2024 [facility] [place] of Occupat ional Health - Occupational Stress [...] in an abandoned building, in an overnight senior living, or couch-surfing.) Yes 10/26/2023 Are you worried [...] Sex Assigned at Female 09/04/2021 9:00 PM PARTY PLAN SALES UNIT ADVISOR Legal Sex Female 4:25 AM PARTY PLAN SALES UNIT ADVISOR Gender Identity Female 09/04/2021 9:00 PM PARTY PLAN SALES UNIT ADVISOR Sexual Orientation Straight 09/04/2021 9: 00 PM PARTY PLAN SALES UNIT ADVISOR documented as of this encounter Plan of Treatment Upcoming Encounters Date Type Department Care Team (Late st Contact Info) Description 07/04/2024 2:30 PM PARTY PLAN SALES UNIT ADVISOR Office Visit [facility] [address] [place] [id number] Alber Estrada PA-C [address] [place] [address] 07/05/2024 2:00 PM PARTY PLAN SALES UNIT ADVISOR Office Visit [facility] [address] [place] [address] Sukhdeep Caitlin Patricia, CNM [address] [place] [address] documented as of this encounter Goals Goal Patient Goal Type Associated Problems Recent Progress Patient-Stated? Author I would like additional resources and support to manage my health and prevent future avoidable ED visits/hospital admissions Care Plan Increased risk of re-admission 40%( 9:21 AM PARTY PLAN SALES UNIT ADVISOR) No Irma Isaac LSW Note: Barriers: I [...] about symptoms I am having by calling [phone]. 3. I will talk with my PCP about my specific health concerns and when it is appropriate for me to go to urgent care and/or ED. Improve management of mental health symptoms and establish with mental health/psychosocia l supports Care Plan Mental Health Symptoms Need Improvement 10%( 9:21 AM PARTY PLAN SALES UNIT ADVISOR) No Irma Isaac LSW Note: Barriers: Therapy [...] as needed when I feel anxious. 4. Merchandising Lead and I will check to see if I can access mental health support through my DD waiver. documented as of this encounter Visit Diagnoses Not on filedocumented in this encounter Additional Health Concerns Active Problems Noted Date Diagnosed Date Increased risk of re-admission 06/17/2023 Mental Health Symptoms Need Improvement 06/21/20 Assessment Noted Time PHQ-9 Depression Total Score: 024 1:58 PM CDT documented as of this encounter Care Teams Rn Support Services Relationship Specialty Start Date End Date Alber Estrada PA-C [address] [place] [address] PCP - General Family Medicine 11/03/23 Tc Jama MD [address] [place] [address] Pediatric Surgery 02/14/20 Alber Estrada PA-C [address] [place] [address] Assigned PCP 09/07/21 Navid Regalado MD [address]09 [place] [address] Dermatology 04/30/23 Willow Mcnulty APRN CHIEF MINISTER [address] [address] Nurse Practitioner Nurse Practitioner Primary Care 06/02/23 Lashae Holt APRN CHIEF MINISTER [address] [address] Nurse Practitioner Pain Medicine 06/02/23 Lamont Marcus MD [address] [facility] 100 [place] [address] glue spreading machine operator 06/25/23 Esau Monet MD [address], [facility] 100 [place] [address] Assigned OBGYN Provider 07/17/23 Liv Olson PA-C [address] [facility] 377 [place] [address] Physician Shipboard Intelligence Analyst Urology 09/23/23 Karoline Su, [facility] [address] [place] [address] Assigned Behavioral Health Provider 11/09/23 Navid Regalado MD [address] [place] [address] Assigned Surgical Provider 12/09/23 Cony Cameron RN RN Clinical Product Navigator Primary Care - CC 04/10/24 04/10/24 Chip Crane LSW Clinic Merchandising Lead Primary Care - CC 04/10/24 Caitlin Tarango CNM [address] [facility] 700 [place] [address] Office Manager glue spreading machine operator 05/31/24 documented as of this encounter
--- OUTSIDE RECORDS SUMMARY | 2024-06-14 09:55 | XMS_ITS | Encounter Summary ---
Author Organization [place] Address [facility] [place] [address] Care Team Providers Care Interventional Pain Physician Name Role Phone Tc Jama MD Unavailable [phone] Alber Estrada PA-C Unavailable [phone] Navid Regalado MD Unavailable [phone] Willow Mcnulty APRN UNDERLAY STITCHER Unavailable [phone] Lashae Holt CROWN ATTACHER UNDERLAY STITCHER Unavailable + Lamont Marcus MD Unavailable [phone] Esau Monet MD Unavailable Liv Olson PA-C Unavailable Alber Estrada PA-C Primary Care Provider Eda Duarte MD Unavailable [phone] Karoline Su URBAN REDEVELOPMENT SPECIALIST Unavailable [phone] Navid Regalado MD Unavailable [phone] Cony Cameron RN Unavailable [phone] Chip Crane Unavailable [phone] Caitlin Tarango CNM Unavailable [phone] Encounter Details Date Type Department Care Team (Late st Contact Info) Description 11/21/2023 MyC Medical Advice [facility] [address] [address] Navid Regalado MD [address] [place] [address] Social History Tobacco Use Types Packs/Day Years [...] declined 10/26/2023 How often do you attend holiness or hoahaoism serv ices? Never 10/26/2023 Do you belong to any clubs o r organizations such as holiness groups, unions, fraternal [...] PHQ-2 Score 0 10/26/2023 [facility] [place] of Occupat ional Health - Occupational Stress [...] in an abandoned building, in an overnight correction, or couch-surfing.) Yes 10/26/2023 Are you worried [...] Sex Assigned at Female 09/04/2021 9:00 PM PICK UP Legal Sex Female 4:25 AM PICK UP Gender Identity Female 09/04/2021 9:00 PM PICK UP Sexual Orientation Straight 09/04/2021 9: 00 PM PICK UP documented as of this encounter Plan of Treatment Upcoming Encounters Date Type Department Care Team (Late st Contact Info) Description 07/04/2024 2:30 PM PICK UP Office Visit [facility] [address] [place] [phone] Alber Estrada PA-C [address] [place], [place] [address] 07/05/2024 2:00 PM PICK UP Office Visit [facility] [address] [place] [address] Caitlin Tarango, CN [address] [place] [address] documented as of this encounter Goals Goal Patient Goal Type Associated Problems Recent Progress Patient-Stated? Author I would like additional resources and support to manage my health and prevent future avoidable ED visits/hospital admissions Care Plan Increased risk of re-admission 40%( 3 9:21 AM PICK UP) No Irma Isaac LSW Note: Barriers: I [...] about symptoms I am having by calling [phone]. 3. I will talk with my PCP about my specific health concerns and when it is appropriate for me to go to urgent care and/or ED. Improve management of mental health symptoms and establish with mental health/psychosocia l supports Care Plan Mental Health Symptoms Need Improvement 10%( 3 9:21 AM PICK UP) No Irma Isaac LSW Note: Barriers: Therapy [...] as needed when I feel anxious. 4. Scientific Photographer and I will check to see if [...] documented as of this encounter Care Teams Interventional Pain Physician Relationship Specialty Start Date End Date Alber Estrada PA-C [address] [place] [address] PCP - General Family Medicine 11/03/23 Tc Jama MD [address] [place] [address] Pediatric Surgery 02/14/20 Alber Estrada PA-C [address] [address] [facility] [address] Assigned PCP 09/07/21 Navid Regalado MD 909 [place] [address] Dermatology 04/30/23 Willow Mcnulty APRN UNDERLAY STITCHER [address] [address] Nurse Practitioner Nurse Practitioner Primary Care 06/02/23 Lashae Holt APRN UNDERLAY STITCHER [address] [facility] [address] [place] [address] Nurse Practitioner Pain Medicine 06/02/23 Lamont Marcus MD [address] [facility] 100 [place] [address] food aide 06/25/23 Esau Monet MD [address], [facility] 100 [place] [address] Assigned OBGYN Provider 07/17/23 Liv Olson PA-C [address] [facility] 377 [place], [place] [address] Physician Specialty Manufacturing Supervisor Urology 09/23/23 Eda Duarte MD 420 [facility] 394 [place], [place] [address] Assigned Surgical Provider 11/09/23 12/08/23 Karoline Su, [facility] [address] [place], [place] [id number] Assigned Behavioral Health Provider 11/09/23 Navid Regalado MD 9 [place], [place] [address] Assigned Surgical Provider 12/09/23 Cony Cameron RN RN Clinical Product Navigator Primary Care - CC 04/10/24 04/10/24 Chip Crane LSW Clinic Scientific Photographer Primary Care - CC 04/10/24 Caitlin Tarango CNM [address] [address] Concentrator Operator food aide 05/31/24 documented as of this encounter
--- OUTSIDE RECORDS SUMMARY | 2024-06-14 09:55 | XMS_ITS | Encounter Summary ---
Author Organization [place] Address [facility] [place] [address] Care Team Providers Care Director [place] Sales Name Role Phone Tc Jama MD Unavailable [phone] Alber Estrada PA-C Unavailable [phone] No Ref-Primary, Physician Primary Care Provider Navid Regalado MD Unavailable [phone] Willow Mcnulty APRN CHICKEN DRESSER Unavailable [phone] Lashae Holt ATHLETIC AGENT CHICKEN DRESSER Unavailable + Irma Isaac BIOINFORMATICIAN Unavailable [phone] Lamont Marcus MD Unavailable [phone] Alber Estrada PA-C Unavailable [phone] Esau Monet MD Unavailable Ahmet Almaguer MD Unavailable [phone] Liv Olson PA-C Unavailable Alber Estrada PA-C Primary Care Provider Eda Duarte MD Unavailable [phone] Karoline Su GAS SYSTEMS WORKER Unavailable [phone] Navid Regalado MD Unavailable [phone] Cony Cameron RN Unavailable [phone] RoyceChip BIOINFORMATICIAN Unavailable [phone] Caitlin Tarango CNM Unavailable [phone] Encounter Details Date Type Department Care Team (Late st Contact Info) Description 08/09/2023 Orders Only [facility] [place] [address] [place] [address] Andres Moreno Dysuria Social History Tobacco Use Types Packs/Day Years Used Date Smoking Tobacco: Never Passive Smoke Exposure: Never Smokeless Tobacco: Never Comments:no smokers in house hold Alcohol Use Standard Drinks/Week Comments Yes 0 (1 standard drink = 0.6 oz pur e alcohol) Rarely Social Connection and Isolat ion Panel [NHANES] Answer Date Recorded Frequency of Communication w ith Friends and Family More than three times a week 12/07/2018 Frequency of Social Gatherin gs with Friends and Family Three times a week 12/07/2018 Attends [facility] Services Never 12/07 Active Member of Clubs or Organizations No 12/07/2018 Attends Club or Organization Meetings Never 12/07/2018 Marital Status Patient declined 12/07/2018 AUDIT-C Answer Date Recorded Frequency of Alcohol Consumption Never 12/07/2018 Average Number of Drinks Patient declined 2018 Frequency of Binge Drinking Never 11/17 PHQ-2 Answer Date Recorded PHQ-2 Score 5 07/13/2023 [facility] of Occupat ional Health - [...] you got money to buy more? Yes 07/13/2023 Within the past 12 months, d id the food you bought just not last and you didn t have money to get more? No 07/13/2023 Housing Stability Answer Date Recorded Do you have housing? (Wilder lyles is defined as stable permanent housing and does not include staying ouside in a car, in a tent, in an abandoned building, in an overnight correction, or couch-surfing.) Yes 07/13/2023 Are you worried about losing your housing? No 07/13/2023 Financial Resource Strain Answer Date R ecorded Within the past 12 months, h ave you or your family members you live with been unable to get utilities (heat, electricity) when it was really needed? No 07/13/2023 Transportation Needs Answer Date Record ed Within the past 12 months, h as lack of transportation kept you from medical appointments, getting your medicines, non-medical meetings or appointments, work, or from getting things that you need? Yes 07/13/2023 Interpersonal Safety Answer Date Record ed Do [...] Sex Assigned at Female 09/04/2021 9:00 PM FOOT ROENTGENOLOGIST Legal Sex Female 4:25 AM FOOT ROENTGENOLOGIST Gender Identity Female 09/04/2021 9:00 PM FOOT ROENTGENOLOGIST Sexual Orientation Straight 09/04/2021 9: 00 PM FOOT ROENTGENOLOGIST documented as of this encounter Plan of Treatment Upcoming Encounters Date Type Department Care Team (Late st Contact Info) Description 07/04/2024 2:30 PM FOOT ROENTGENOLOGIST Office Visit [facility] [address] [place] [address] Alber Estrada PA-C [address] [place] [address] 07/05/2024 2:00 PM FOOT ROENTGENOLOGIST [facility] [address] [place] [address] Caitlin Tarango, CNM [address] [place] [address] documented as of this encounter Goals Goal Patient Goal Type Associated Problems Recent Progress Patient-Stated? Author I would like additional resources and support to manage my health and prevent future avoidable ED visits/hospital admissions Care Plan Increased risk of re-admission 40%( 3 9:21 AM FOOT ROENTGENOLOGIST) No Irma Isaac LSW Note: Barriers: I [...] about symptoms I am having by calling [phone]. 3. I will talk with my PCP about my specific health concerns and when it is appropriate for me to go to urgent care and/or ED. Improve management of mental health symptoms and establish with mental health/psychosocia l supports Care Plan Mental Health Symptoms Need Improvement 10%( 3 9:21 AM FOOT ROENTGENOLOGIST) No Irma Isaac LSW Note: Barriers: Therapy [...] as needed when I feel anxious. 4. Pig Machine Supervisor and I will check to see if I can access mental health support through my DD waiver. documented as of this encounter Procedures Procedure Name Priority Date/Time Associated Diagnosis Comments UA MICROSCOPIC WITH REFLEX TO CULTURE Routine 08/09/2023 5:54 PM FOOT ROENTGENOLOGIST Dysuria UA MACROSCOPIC WITH REFLEX TO MICRO AND CULTURE Routine 08/09/2023 5:54 PM FOOT ROENTGENOLOGIST Dysuria documented in this encounter Results * (ABNORMAL) UA Microscopic with Reflex to Culture (08/09/2023 5:54 PM FOOT ROENTGENOLOGIST) Bacteria Urine Many(A) None Seen /HPF PADMINI 08/09/2023 6:08 PM FOOT ROENTGENOLOGIST [facility] RBC Urine 2-5(A) 0-2 /HPF /HPF PADMINI 08/09/2023 6:08 PM FOOT ROENTGENOLOGIST [facility] WBC Urine 0-5 0-5 /HPF /HPF PADMINI 08/09/2023 6:08 PM FOOT ROENTGENOLOGIST [facility] Squamous Epithelials Urine Many(A) None Seen /LPF PADMINI 08/09/2023 6:08 PM FOOT ROENTGENOLOGIST [facility] Mucus Urine Present(A ) None Seen /LPF PADMINI 08/09/2023 6:08 PM FOOT ROENTGENOLOGIST [facility] Urine URINE SPECIMEN / Unknown Non-blood Collection / Unknown 08/09/2023 5:54 PM FOOT ROENTGENOLOGIST 08/09/2023 5:54 PM FOOT ROENTGENOLOGIST Narrative [facility] - 08/09/2023 6:08 PM FOOT ROENTGENOLOGIST Urine Culture not indicated us Noy Mullen PA-C LAB - URINE ORDERABLES Final R esult LABORATORY [facility] [address] [facility] (no room number, 1st floor of clinic) [place] [address], [facility] [phone] * (ABNORMAL) UA Macroscopic with reflex to Microscopic and Culture - Lab Collect (08/09/2023 5:54 PM FOOT ROENTGENOLOGIST) Color Urine Yellow Colorless, Straw, Light Yellow, Yellow 08/09/2023 5:59 PM FOOT ROENTGENOLOGIST [facility] Appearance Urine Slightly Cloudy(A) Clear 08/09/2023 5:59 PM FOOT ROENTGENOLOGIST [facility] Glucose Urine Negative Negative mg/dL 08/09/2023 5:59 PM FOOT ROENTGENOLOGIST [facility] Bilirubin Urine Negative Negative 5:59 PM FOOT ROENTGENOLOGIST [facility] Ketones Urine Trace(A) Negative mg/dL 08/09/2023 5:59 PM FOOT ROENTGENOLOGIST [facility] Specific [place] Urine 1.020 1.003 - 1.035 08/09/2023 5:59 PM FOOT ROENTGENOLOGIST [facility] Blood Urine Moderate(A) Negative 08/09/2023 5:59 PM FOOT ROENTGENOLOGIST [facility] pH Urine 7.0 5.0 - 7.0 08/09/2023 5:59 PM FOOT ROENTGENOLOGIST [facility] Protein Albumin Urine Trace(A) Negative mg/dL 08/09/2023 5:59 PM FOOT ROENTGENOLOGIST [facility] Urobilinogen Urine 0.2 0.2, 1.0 E.U./dL 08/09/2023 5:59 PM FOOT ROENTGENOLOGIST [facility] Nitrite Urine Negative Negative 08/09/2023 5:59 PM FOOT ROENTGENOLOGIST [facility] Leukocyte Esterase Urine Negative Negative 08/09/2023 5:59 PM FOOT ROENTGENOLOGIST [facility] Urine URINE SPECIMEN / Unknown Non-blood Collection / Unknown 08/09/2023 5:54 PM FOOT ROENTGENOLOGIST 08/09/2023 5:54 PM FOOT ROENTGENOLOGIST Noy Mullen PA-C LAB - URINE ORDERABLES Final R esult LABORATORY [facility] [address] [facility] (no room number, 1st floor of clinic) [place] [address], [facility] [phone] documented in this encounter Visit Diagnoses Diagnosis Dysuria documented in this encounter Additional Health Concerns Active Problems Noted Date Diagnosed Date Increased risk of re-admission 06/17/2023 Mental Health Symptoms Need Improvement 06/21/20 23 Infection Onset Date Last Indicated Resolved Time Rule Out COVID-19 11/07/2023 11/07/2023 11/07/2023 10:43 PM CDT Assessment Noted Time PHQ-9 Depression Total Score: 22 023 12:07 PM FOOT ROENTGENOLOGIST documented as of this encounter Care Teams Director [place] Sales Relationship Specialty Start Date End Date No Ref-Primary, Physician PCP - General 08/27/22 11/02/23 Alber Estrada PA-C [address] [address] [place] [address] PCP - General Family Medicine 11/03/23 Tc Jama MD [address] [address] Pediatric Surgery 02/14/20 Alber Estrada PA-C [address] [address] [facility] [address] Assigned PCP 09/07/21 Navid Regalado MD [address]09 [place] [address] Dermatology 04/30/23 Willow Mcnulty APRN CHICKEN DRESSER [address] [place] [address] Nurse Practitioner Nurse Practitioner Primary Care 06/02/23 Lashae Holt APRN CHICKEN DRESSER [address] [address] Nurse Practitioner Pain Medicine 06/02/23 Irma Isaac, BIOINFORMATICIAN Clinic Pig Machine Supervisor Primary Care - CC 06/08/23 Lamont Marcus MD [address] [facility] 100 [place] [address] drum stenciler 06/25/23 Alber Estrada PA-C [address] [address] [place] [address] Assigned Pain Medication Provider 07/03/23 08/11/23 Esau Monet MD [address], [facility] 100 [place] [address] Assigned OBGYN Provider 07/17/23 Ahmet Almaguer MD [address] [place] [address] Assigned Surgical Provider 08/20/23 11/08/23 Liv Olson PA-C [address] [facility] 377 [place], [place] [address] Physician Director Of Integrated Marketing Urology 09/23/23 Eda Duarte MD [address] [place] [address] 394 [place], [place] [address] Assigned Surgical Provider 11/09/23 12/08/23 Karoline Su, [facility] [address] [place], [place] [id number] Assigned Behavioral Health Provider 11/09/23 Navid Regalado MD [address] [place], [place] [address] Assigned Surgical Provider 12/09/23 Cony Cameron RN JAZMYNE Clinical Product Navigator Primary Care - CC 04/10/24 04/10/24 Chip Crane LSW Clinic Pig Machine Supervisor Primary Care - CC 04/10/24 Caitlin Tarango CNM [address] [place] [address] 700 [place] [address] Grain Merchandiser drum stenciler 05/31/24 documented as of this encounter
--- OUTSIDE RECORDS SUMMARY | 2024-06-14 09:55 | XMS_ITS | Encounter Summary ---
Author Organization [place] Address [facility] [place] [address] Care Team Providers Care Manager Semiconductor Name Role Phone Tc Jama MD Unavailable [phone] Mike Sherwood MD Unavailable [phone] Navid Paige MD Unavailable [phone] No Ref-Primary, Physician Primary Care Provider Alber Estrada PA-C Unavailable +00 Alber Estrada PA-C Primary Care Provider Maxine Patel CN Unavailable [phone] No Ref-Primary, Physician Primary Care Provider Navid Regalado MD Unavailable +[phone] Willow Mcnulty INSURANCE ADJUSTOR CHARTER AND TOUR BUS DRIVER Unavailable [phone] Lashae Holt INSURANCE ADJUSTOR CHARTER AND TOUR BUS DRIVER Unavailable + Irma Isaac RETAIL GREETER Unavailable [phone] Lamont Marcus MD Unavailable +[phone] Irma Isaac RETAIL GREETER Unavailable [phone] Alber Estrada PA-C Unavailable +00 Lamont Marcus MD Unavailable +[phone] Esau Monet MD Unavailable Ahmet Almaguer MD Unavailable [phone] Liv Olson PA-C Unavailable Alber EstradaC Primary Care Provider Eda Duarte MD Unavailable [phone] Karoline Su BORING MACHINE OPERATOR VERTICAL Unavailable [phone] Navid Regalado MD Unavailable [phone] Cony Cameron RN Unavailable [phone] Chip CraneW Unavailable [phone] Sukhdeep Caitlin Patricia CN Unavailable [phone] Encounter Details Date Type Department Care Team (Late st Contact Info) Description 06/17/2022 [facility] Medical Advice [facility] Emergency Dept [address] [place] [id number] Jona Cardona, RN Social History Tobacco Use Types Packs/Day Years [...] Family Three times a week 12/07/2018 Attends Episcopalian Services Never 12/07 Active Member of Clubs or Organizations No 12/07/2018 Attends Club or Organization Meetings Never 12/07/2018 Marital Status Patient declined 12/07/2018 AUDIT-C Answer Date Recorded Frequency of Alcohol Consumption Never 12/07/2018 Average Number of Drinks Patient declined 2018 Frequency of Binge Drinking Never 11/17 PHQ-2 Answer Date Recorded PHQ-2 Score 0 09/05/2021 [facility] of Occupat ional Health - [...] or slept in a custodial (including now)? No 09/04/2021 Education Answer Date Recorded What is the highest level of school you have completed or the highest degree you have received? 10th grade 12/07/2018 Comments No Sex and Gender Information Value Date Recorded Sex Assigned at Female 09/04/2021 9:00 PM SERVICE PARTS COORDINATOR Legal Sex Female 4:25 AM SERVICE PARTS COORDINATOR Gender Identity Female 09/04/2021 9:00 PM SERVICE PARTS COORDINATOR Sexual Orientation Straight 09/04/2021 9: 00 PM SERVICE PARTS COORDINATOR COVID-19 Exposure Response Date Recorded In the last 10 days, have yo u been in contact with someone who was confirmed or suspected to have Coronavirus/COVID-19? No / Unsure 06/19/2022 8:26 AM SERVICE PARTS COORDINATOR documented as of this encounter Plan of Treatment Upcoming Encounters Date Type Department Care Team (Late st Contact Info) Description 07/04/2024 2:30 PM SERVICE PARTS COORDINATOR Office Visit [address] [address] Alber Estrada PA-C [address] [place] [address] 07/05/2024 2:00 PM SERVICE PARTS COORDINATOR Office Visit [facility] [address] [place] [phone] Sukhdeep Caitlin Gomez, [facility] [address] [facility] [address] [place] [address] documented as of this encounter Visit Diagnoses Not on filedocumented in this encounter Additional Health Concerns Infection Onset Date Last Indicated Resolved Time Influenza 06/16/2022 06/16/2022 06/23/2022 11:4 0 PM SERVICE PARTS COORDINATOR Rule Out COVID-19 03/02/2023 03/02/2023 03/02/2023 7:24 PM CDT Rule Out COVID-19 04/28/2023 04/28/2023 04/28/2023 1:13 AM CDT Rule Out COVID-19 05/04/2023 05/04/2023 05/04/2023 8:26 PM CDT Rule Out COVID-19 05/19/2023 05/19/2023 05/20/2023 12:58 AM CDT Rule Out COVID-19 06/17/2023 06/17/2023 06/17/2023 2:16 AM SERVICE PARTS COORDINATOR Rule Out C-difficile 07/21/2023 07/21/2023 024 8:45 AM SERVICE PARTS COORDINATOR Rule Out COVID-19 11/07/2023 11/07/2023 11/07/2023 10:43 PM CDT Assessment Noted Time PHQ-9 Depression Total Score: 6 09/05/19 1:00 PM SERVICE PARTS COORDINATOR documented as of this encounter Care Teams Manager Semiconductor Relationship Specialty Start Date End Date No Ref-Primary, Physician PCP - General 08/23/21 06/18/22 Alber Estrada PA-C [address] [place] [address] PCP - General Family Medicine 06/19/22 07/15/22 No Ref-Primary, Physician PCP - General 08/27/22 11/02/23 Alber Estrada PA-C [address] [address] [place], [place] [address] PCP - General Family Medicine 11/03/23 Tc Jama MD [address] [place] [address] [id number] Pediatric Surgery 02/14/20 Mike Sherwood MD [address] [place] [address] [id number] Assigned Sleep Provider 01/31/21 Navid Posada MD [address] [place] [address] [id number] Assigned Musculoskeletal Provider 03/16/21 09/11/22 Alber Estrada PA-C [address] [address] [place] [address] Assigned PCP 09/07/21 Maxine Patel CNM [address] [place], [place] [address] Assigned OBGYN Provider 07/25/2207/02 Navid Regalado MD [address] [place] [address] [id number] Dermatology 04/30/23 Willow Mcnulty APRN CHARTER AND TOUR BUS DRIVER [address] [place] [address] Nurse Practitioner Nurse Practitioner Primary Care 06/02/23 Lashae Holt APRN CHARTER AND TOUR BUS DRIVER [address] [facility] [address] [place] [address] Nurse Practitioner Pain Medicine 06/02/23 Irma Isaac, [facility] Clinic Reservations Agent Primary Care - CC 06/08/23 4 Lamont Marcus MD [address] [facility] [address] [place] [address] data keyer 06/25/23 Irma Isaac, [facility] Lead Reservations Agent Primary Care - CC 06/29/23 07/13/23 Alber Estrada PA-C [address] [place] [place] [address] Assigned Pain Medication Provider 07/03/23 08/11/23 Lamont Marcus MD [address] [facility] [address] [place] [address] Assigned OBGYN Provider 07/03/2307/16 Esau Monet MD [address] [facility] [address] [place] [address] Assigned OBGYN Provider 07/17/23 Ahmet Almaguer MD [address] [place] [address] Assigned Surgical Provider 2/2/24 4/22/24 Liv Olson PA-C [address] [facility] 377 [place], [place] 15[address] Physician Pants Busheler Urology 09/23/23 Eda Duarte MD 420 [facility] 394 [place], [place] 2358[address] Assigned Surgical Provider 11/09/23 12/08/23 Karoline Su, [facility] [address] [place], [place] [id number] Assigned Behavioral Health Provider 11/09/23 Navid Regalado MD [address] [place] [address] [id number] Assigned Surgical Provider 12/09/23 Cony Cameron, RN RN Clinical Product Navigator Primary Care - CC 04/10/24 04/10/24 Chip Crane LSW Clinic Reservations Agent Primary Care - CC 04/10/24 4 Caitlin Tarango CNM [address] [facility] 700 [place], [place] [address]48[address] Single Spindle Screw Machine Operator data keyer 05/31/24 documented as of this encounter
--- OUTSIDE RECORDS SUMMARY | 2024-06-14 09:55 | XMS_ITS | Encounter Summary ---
Author Organization [place] Address [address] [place] [address] Care Team Providers Care Shopping Investigator Name Role Phone Tc Jama MD Unavailable [phone] Alber Estrada PA-C Unavailable [phone] Navid Regalado MD Unavailable [phone] Willow Mcnulty APRN ICE SKATING TEACHER Unavailable [phone] Lashae Holt RNFA ICE SKATING TEACHER Unavailable + Lamont Marcus MD Unavailable [phone] Esau Monet MD Unavailable Liv Olson PA-C Unavailable Alber Estrada PA-C Primary Care Provider Karoline Su WEIGH MACHINE OPERATOR Unavailable [phone] Navid Regalado MD Unavailable [phone] Caitlin Tarango [facility] Unavailable [phone] Encounter Details Date Type Department Care Team (Late st Contact Info) Description 04/12/2024 [facility] Medical Advice [facility] Care Coordination [address] [place] [address] Chip Crane LSW Social History Tobacco Use Types Packs/Day Years [...] declined 10/26/2023 How often do you attend lutheran or nondenominational serv ices? Never 10/26/2023 Do you belong to any clubs o r organizations such as lutheran groups, unions, fraternal [...] Answer Date Recorded PHQ-2 Score 1 03/28/2024 [facility] of Occupat ional Health - Occupational [...] Sex Assigned at Female 09/04/2021 9:00 PM COIL SPRING ASSEMBLER Legal Sex Female 4:25 AM COIL SPRING ASSEMBLER Gender Identity Female 09/04/2021 9:00 PM COIL SPRING ASSEMBLER Sexual Orientation Straight 09/04/2021 9: 00 PM COIL SPRING ASSEMBLER documented as of this encounter Plan of Treatment Upcoming Encounters Date Type Department Care Team (Late st Contact Info) Description 07/04/2024 2:30 PM COIL SPRING ASSEMBLER Office Visit [facility] [address] [place] [address] Alber Estrada PA-C [address] [place] [address] 07/05/2024 2:00 PM COIL SPRING ASSEMBLER Office Visit [facility] [address] [place] [address] Caitlin Tarango, CNM [address] [place] [address] documented as of this encounter Goals Goal Patient Goal Type Associated Problems Recent Progress Patient-Stated? Author I would like additional resources and support to manage my health and prevent future avoidable ED visits/hospital admissions Care Plan Increased risk of re-admission 40%( 3 9:21 AM COIL SPRING ASSEMBLER) No Irma Isaac LSW Note: Barriers: I [...] about symptoms I am having by calling [phone]. 3. I will talk with my PCP about my specific health concerns and when it is appropriate for me to go to urgent care and/or ED. Improve management of mental health symptoms and establish with mental health/psychosocia l supports Care Plan Mental Health Symptoms Need Improvement 10%( 3 9:21 AM COIL SPRING ASSEMBLER) No Irma Isaac LSW Note: Barriers: Therapy [...] as needed when I feel anxious. 4. Production Roustabout and I will check to see if [...] documented as of this encounter Care Teams Shopping Investigator Relationship Specialty Start Date End Date Alber Estrada PA-C [address] [facility] [place] [address] PCP - General Family Medicine 11/03/23 Tc Jama MD [address] [address] Pediatric Surgery 02/14/20 Alber Estrada PA-C [address] [facility] [place] [address] Assigned PCP 09/07/21 Navid Regalado MD 909 [place] [address] Dermatology 04/30/23 Willow Mcnulty APRN ICE SKATING TEACHER [address] [place] [address] Nurse Practitioner Nurse Practitioner Primary Care 06/02/23 Lashae Holt APRN ICE SKATING TEACHER 1600 [facility] 101 [place] [address] Nurse Practitioner Pain Medicine 06/02/23 Lamont Marcus MD [address] [address] contact center manager 06/25/23 Esau Monet MD [address] [facility] 100 [place] [address] Assigned OBGYN Provider 07/17/23 Liv Olson PA-C [address] [facility] 377 [place] [address] Physician Restaurant Team Member Urology 09/23/23 Karoline Su, [facility] [address] [place] [address] Assigned Behavioral Health Provider 11/09/23 Naivd Regalado MD 9 [place] [address] Assigned Surgical Provider 12/09/23 Caitlin Tarango CNM 606 [facility] 700 [place], [place] [address] Pole Sander Operator contact center manager 05/31/24 documented as of this encounter
--- OUTSIDE RECORDS SUMMARY | 2024-06-14 09:55 | XMS_ITS | Encounter Summary ---
Author Organization [place] Address [facility] [place] [address] Care Team Providers Care Business Transformation Consultant Name Role Phone Tc Jama MD Unavailable [phone] Alber Estrada PA-C Unavailable [phone] Navid Regalado MD Unavailable [phone] Willow Mcnulty APRN HAT FINISHER Unavailable [phone] Lashae Holt ARCHITECTURAL PROJECT CAPTAIN HAT FINISHER Unavailable + Lamont Marcus MD Unavailable [phone] Esau Monet MD Unavailable [phone] Liv Olson PA-C Unavailable Alber Estrada PA-C Primary Care Provider Karoline Su SHIFT SUPERVISOR RN Unavailable [phone] Navid Regalado MD Unavailable [phone] Encounter Details Date Type Department Care Team (Latest Contact Info) Description 03/28/2024 Travel Social History Tobacco Use Types Packs/Day [...] How often do you attend scientology or christianity serv ices? Never 10/26/2023 Do you belong [...] Answer Date Recorded PHQ-2 Score 1 03/28/2024 [facility] - Occupational Stress Questionnaire Answer Date [...] Sex Assigned at Female 09/04/2021 9:00 PM DITCHING MACHINE OPERATING ENGINEER Legal Sex Female 4:25 AM DITCHING MACHINE OPERATING ENGINEER Gender Identity Female 09/04/2021 9:00 PM DITCHING MACHINE OPERATING ENGINEER Sexual Orientation Straight 09/04/2021 9: 00 PM DITCHING MACHINE OPERATING ENGINEER documented as of this encounter Plan of Treatment Upcoming Encounters Date Type Department Care Team (Late st Contact Info) Description 07/04/2024 2:30 PM DITCHING MACHINE OPERATING ENGINEER Office Visit [facility] [address] [place] [address] Alber Estrada PA-C [address] [place] [address] 07/05/2024 2:00 PM DITCHING MACHINE OPERATING ENGINEER Office Visit [facility] [place] [address] [place] [address] Caitlin Tarango, CNM [address] [place] [address] documented as of this encounter Goals Goal Patient Goal Type Associated Problems Recent Progress Patient-Stated? Author I would like additional resources and support to manage my health and prevent future avoidable ED visits/hospital admissions Care Plan Increased risk of re-admission 40%( 3 9:21 AM DITCHING MACHINE OPERATING ENGINEER) No Irma Isaac LSW Note: Barriers: I [...] about symptoms I am having by calling [phone]. 3. I will talk with my PCP about my specific health concerns and when it is appropriate for me to go to urgent care and/or ED. Improve management of mental health symptoms and establish with mental health/psychosocia l supports Care Plan Mental Health Symptoms Need Improvement 10%( 3 9:21 AM DITCHING MACHINE OPERATING ENGINEER) No Irma Iasac LSW Note: Barriers: Therapy has not been [...] as needed when I feel anxious. 4. Mica Spreader and I will check to see if [...] as of this encounter Care Teams Business Transformation Consultant Relationship Specialty Start Date End Date Alber Estrada PA-C [address] [facility] [place] [address] PCP - General Family Medicine 11/03/23 Tc Jama MD [address] [place] [address] Pediatric Surgery 02/14/20 Alber Estrada PA-C [address] [facility] [address] Assigned PCP 09/07/21 Navid Regalado MD 909 [place], [place] [address] Dermatology 04/30/23 Willow Mcnulty APRN HAT FINISHER [address] 845460 Nurse Practitioner Nurse Practitioner Primary Care 06/02/23 Lashae Holt APRN HAT FINISHER [address] [address] Nurse Practitioner Pain Medicine 06/02/23 Lamont Marcus MD [address] [address] ocular care technologist 06/25/23 Esau Monet MD [address] 369787 Assigned OBGYN Provider 07/17/23 Liv Olson PA-C [address] [address] Physician Architectural Project Captain Urology 09/23/23 Karoline Su, [facility] [address] [place] [address] Assigned Behavioral Health Provider 11/09/23 Navid Regalado MD 9 [place], [place] [address] Assigned Surgical Provider 12/09/23 documented as of this encounter
--- OUTSIDE RECORDS SUMMARY | 2024-06-14 09:55 | XMS_ITS | Encounter Summary ---
Author Organization [place] Address [facility] [place] [address] Care Team Providers Care Uplands Division Director Name Role Phone Tc Jama MD Unavailable [phone] Alber Estrada PA-C Unavailable [phone] No Ref-Primary, Physician Primary Care Provider Navid Regalado MD Unavailable [phone] Willow Mcnulty APRN MAILING MACHINE ASSISTANT Unavailable [phone] Lashae Holt PERCUSSION TEACHER MAILING MACHINE ASSISTANT Unavailable + Irma Isaac RN CRITICAL CARE Unavailable [phone] Lamont Marcus MD Unavailable [phone] Alber Estrada PA-C Unavailable [phone] Esau Monet MD Unavailable Ahmet Almaguer MD Unavailable Liv Olson PA-C Unavailable [phone] Alber Estrada PA-C Primary Care Provider Eda Duarte MD Unavailable [phone] Karoline Su TICK SEWER Unavailable [phone] Navid Regalado MD Unavailable [phone] Cony Cameron RN Unavailable [phone] JessicaChip cardenas RN CRITICAL CARE Unavailable [phone] Caitlin Tarango CNM Unavailable [phone] Encounter Details Date Type Department Care Team (Late st Contact Info) Description 08/04/2023 [facility] Medical Advice [address] [address] Joe Sheets Social History Tobacco Use Types Packs/Day Years [...] Family Three times a week 12/07/2018 Attends Hoahaoism Services Never 12/07 Active Member of Clubs or Organizations No 12/07/2018 Attends Club or Organization Meetings Never 12/07/2018 Marital Status Patient declined 12/07/2018 AUDIT-C Answer Date Recorded Frequency of Alcohol Consumption Never 12/07/2018 Average Number of Drinks Patient declined 2018 Frequency of Binge Drinking Never 11/17 PHQ-2 Answer Date Recorded PHQ-2 Score 5 07/13/2023 [facility] of Occupat ional Health - [...] in an overnight penitentiary, or couch-surfing.) Yes 07/13/2023 Are you worried [...] Sex Assigned at Female 09/04/2021 9:00 PM FUNERAL SERVICE APPRENTICE Legal Sex Female 4:25 AM FUNERAL SERVICE APPRENTICE Gender Identity Female 09/04/2021 9:00 PM FUNERAL SERVICE APPRENTICE Sexual Orientation Straight 09/04/2021 9: 00 PM FUNERAL SERVICE APPRENTICE documented as of this encounter Plan of Treatment Upcoming Encounters Date Type Department Care Team (Late st Contact Info) Description 07/04/2024 2:30 PM FUNERAL SERVICE APPRENTICE Office Visit [facility] [address] [place] [phone] Alber Estrada PA-C [address] [place] [address] 07/05/2024 2:00 PM FUNERAL SERVICE APPRENTICE Office Visit [facility] [address] [place] [address] Caitlin Tarango, CNM [address] [place] [address] documented as of this encounter Goals Goal Patient Goal Type Associated Problems Recent Progress Patient-Stated? Author I would like additional resources and support to manage my health and prevent future avoidable ED visits/hospital admissions Care Plan Increased risk of re-admission 40%( 3 9:21 AM FUNERAL SERVICE APPRENTICE) No Irma Isaac LSW Note: Barriers: I [...] about symptoms I am having by calling [phone]. 3. I will talk with my PCP about my specific health concerns and when it is appropriate for me to go to urgent care and/or ED. Improve management of mental health symptoms and establish with mental health/psychosocia l supports Care Plan Mental Health Symptoms Need Improvement 10%( 3 9:21 AM FUNERAL SERVICE APPRENTICE) No Irma Isaac LSW Note: Barriers: Therapy [...] as needed when I feel anxious. 4. Promotion Specialist and I will check to see if I can access mental health support through my DD waiver. documented as of this encounter Visit Diagnoses Not on filedocumented in this encounter Additional Health Concerns Active Problems Noted Date Diagnosed Date Increased risk of re-admission 06/17/2023 Mental Health Symptoms Need Improvement 06/21/20 Infection Onset Date Last Indicated Resolved Time Rule Out COVID-19 11/07/2023 11/07/2023 11/07/2023 10:43 PM CDT Assessment Noted Time PHQ-9 Depression Total Score: 22 023 12:07 PM FUNERAL SERVICE APPRENTICE documented as of this encounter Care Teams Uplands Division Director Relationship Specialty Start Date End Date No Ref-Primary, Physician PCP - General 08/27/22 11/02/23 Alber Estrada PA-C [address] [address] [facility] [id number] PCP - General Family Medicine 11/03/23 Tc Jama MD [address] [address] Pediatric Surgery 02/14/20 Alber Estrada PA-C [address] [address] [place] [id number] Assigned PCP 09/07/21 Navid Regalado MD 909 [place], [place] 4050[address] Dermatology 04/30/23 Willow Mcnulty APRN MAILING MACHINE ASSISTANT [address] [place] [address]6280 Nurse Practitioner Nurse Practitioner Primary Care 06/02/23 Lashae Holt APRN MAILING MACHINE ASSISTANT [address] [address] Nurse Practitioner Pain Medicine 06/02/23 Irma Isaac, [facility] Clinic Promotion Specialist Primary Care - CC 06/08/23 Lamont Marcus MD [address] [facility] 100 [place] [address] pantograph operator 06/25/23 Alber Estrada PA-C [address] [place] [address] Assigned Pain Medication Provider 07/03/23 08/11/23 Esau Monet MD [address], [facility] 100 [place] [address] Assigned OBGYN Provider 07/17/23 Ahmet Almaguer MD [address] [place] [address] Assigned Surgical Provider 08/20/23 11/08/23 Liv Olson PA-C [address] [facility] 377 [place], [place] [address] Physician Assistant Facility Manager Urology 09/23/23 Eda Duarte MD 420 [facility] 394 [place] [address] Assigned Surgical Provider 11/09/23 12/08/23 Karoline Su, [facility] [address] [place] [address] Assigned Behavioral Health Provider 11/09/23 Navid Regalado MD [address] [place] [address] Assigned Surgical Provider 12/09/23 Cony Cameron RN RN Clinical Product Navigator Primary Care - CC 04/10/24 04/10/24 Chip Crane LSW Clinic Promotion Specialist Primary Care - CC 04/10/24 Caitlin Tarango CNM [address] [place], [place] [address] Skip Loader pantograph operator 05/31/24 documented as of this encounter
--- OUTSIDE RECORDS SUMMARY | 2024-06-14 09:55 | XMS_ITS | Encounter Summary ---
Author Organization [place] Address [facility] [place] [address] Care Team Providers Care Machinist Apprentice Wood Name Role Phone Tc Jama MD Unavailable [phone] Alber Estrada PA-C Unavailable [phone] Navid Regalado MD Unavailable [phone] Willow Mcnulty APRN REUSE TECHNICIAN Unavailable [phone] Lashae Holt FAMILY CASEWORKER REUSE TECHNICIAN Unavailable + Lamont Marcus MD Unavailable [phone] Esau Monet MD Unavailable Liv Olson PA-C Unavailable Alber Estrada PA-C Primary Care Provider Eda Duarte MD Unavailable [phone] Karoline Su SAFETY PATROL OFFICER Unavailable +[phone] Navid Regalado MD Unavailable [phone] Cony Cameron RN Unavailable [phone] Chip Crane Unavailable [phone] Caitlin Tarango CNM Unavailable [phone] Encounter Details Date Type Department Care Team (Late st Contact Info) Description 11/21/2023 MyC Medical Advice [facility] [address] [address] Navid Regalado MD [address] [place] [address] 784125 Social History Tobacco Use Types Packs/Day Years [...] declined 10/26/2023 How often do you attend advent or rastafarian serv ices? Never 10/26/2023 Do you belong to any clubs o r organizations such as advent groups, unions, fraternal [...] Answer Date Recorded PHQ-2 Score 0 10/26/2023 [facility] of Occupat ional Health - Occupational Stress [...] in an overnight detention, or couch-surfing.) Yes 10/26/2023 Are you worried [...] Sex Assigned at Female 09/04/2021 9:00 PM CLERICAL ADVISER Legal Sex Female 4:25 AM CLERICAL ADVISER Gender Identity Female 09/04/2021 9:00 PM CLERICAL ADVISER Sexual Orientation Straight 09/04/2021 9: 00 PM CLERICAL ADVISER documented as of this encounter Plan of Treatment Upcoming Encounters Date Type Department Care Team (Late st Contact Info) Description 07/04/2024 2:30 PM CLERICAL ADVISER Office Visit [facility] [address] [place] [phone] Alber Estrada PA-C [address] [place], [place] 5[address] 07/05/2024 2:00 PM CLERICAL ADVISER Office Visit [facility] [address] [place] [address] Caitlin Tarango, CN [address] [place] [address] documented as of this encounter Goals Goal Patient Goal Type Associated Problems Recent Progress Patient-Stated? Author I would like additional resources and support to manage my health and prevent future avoidable ED visits/hospital admissions Care Plan Increased risk of re-admission 40%( 3 9:21 AM CLERICAL ADVISER) No Irma Isaac LSW Note: Barriers: I [...] about symptoms I am having by calling [phone]. 3. I will talk with my PCP about my specific health concerns and when it is appropriate for me to go to urgent care and/or ED. Improve management of mental health symptoms and establish with mental health/psychosocia l supports Care Plan Mental Health Symptoms Need Improvement 10%( 3 9:21 AM CLERICAL ADVISER) No Irma Isaac LSW Note: Barriers: Therapy [...] as needed when I feel anxious. 4. Clinic Director and I will check to see if [...] documented as of this encounter Care Teams Machinist Apprentice Wood Relationship Specialty Start Date End Date Alber Estrada PA-C [address] [place] [address] PCP - General Family Medicine 11/03/23 Tc Jama MD [address] [place] [address] 835494 Pediatric Surgery 02/14/20 Alber Estrada PA-C [address] [place] [address] Assigned PCP 09/07/21 Navid Regalado MD 909 [place] [address] Dermatology 04/30/23 Willow Mcnulty APRN REUSE TECHNICIAN [address] [address] Nurse Practitioner Nurse Practitioner Primary Care 06/02/23 Lashae Holt APRN REUSE TECHNICIAN 1600 [facility] [address] [place] [address] Nurse Practitioner Pain Medicine 06/02/23 Lamont Marcus MD [address] [facility] 100 [place] [address] time study clerk 06/25/23 Esau Monet MD [address], [facility] 100 [place] [address] Assigned OBGYN Provider 07/17/23 Liv Olson PA-C [address] [facility] 377 [place], [place] [address] Physician Forest Management Teacher Urology 09/23/23 Eda Duarte MD 420 [facility] 394 [place], [place] 4[address] Assigned Surgical Provider 11/09/23 12/08/23 Karoline Su, [facility] [address] [place], [place] [id number] Assigned Behavioral Health Provider 11/09/23 Navid Regalado MD 9 [place], [place] 486125 Assigned Surgical Provider 12/09/23 Cony Cameron RN RN Clinical Product Navigator Primary Care - CC 04/10/24 04/10/24 Chip Crane LSW Clinic Clinic Director Primary Care - CC 04/10/24 Caitlin Tarango CNM [address] [address] Assistant Track And Field Coach time study clerk 05/31/24 documented as of this encounter
--- OUTSIDE RECORDS SUMMARY | 2024-06-14 09:55 | XMS_ITS | Encounter Summary ---
Author Organization [place] Address [facility] [place] [address] Care Team Providers Care Brush Sander Name Role Phone Tc Jama MD Unavailable [phone] Alber Estrada PA-C Unavailable [phone] Navid Regalado MD Unavailable [phone] Willow Mcnulty APRN METEOROLOGY PROFESSOR Unavailable [phone] Lashae Holt DEMURRAGE MAN METEOROLOGY PROFESSOR Unavailable + Lamont Marcus MD Unavailable [phone] Esau Monet MD Unavailable [phone] Liv Olson PA-C Unavailable [phone] Alber Estrada PA-C Primary Care Provider Eda Duarte MD Unavailable [phone] Karoline Su POWDER ROOM ATTENDANT Unavailable [phone] Navid Regalado MD Unavailable [phone] Cony Cameron RN Unavailable [phone] Chip Crane Unavailable [phone] Caitlin Tarango CNM Unavailable [phone] Encounter Details Date Type Department Care Team (Late st Contact Info) Description 11/11/[address] [facility] Dermatologic Surgery Clinic [address] 3rd [place] [address] Angie Salazar Social History Tobacco Use Types Packs/Day Years [...] declined 10/26/2023 How often do you attend latter-day or sikh serv ices? Never 10/26/2023 Do you belong to any clubs o r organizations such as latter-day groups, unions, fraternal [...] Answer Date Recorded PHQ-2 Score 0 10/26/2023 [facility] of Occupat ional Health - [...] Sex Assigned at Female 09/04/2021 9:00 PM LIFE MANAGEMENT TEACHER Legal Sex Female 4:25 AM LIFE MANAGEMENT TEACHER Gender Identity Female 09/04/2021 9:00 PM LIFE MANAGEMENT TEACHER Sexual Orientation Straight 09/04/2021 9: 00 PM LIFE MANAGEMENT TEACHER documented as of this encounter Plan of Treatment Upcoming Encounters Date Type Department Care Team (Late st Contact Info) Description 07/04/2024 2:30 PM LIFE MANAGEMENT TEACHER Office Visit [facility] [address] [place] [phone] Alber Estrada PA-C [address] [place] [address] 07/05/2024 2:00 PM LIFE MANAGEMENT TEACHER Office Visit [facility] Women's [facility] [address] [place] [address] Caitlin Tarango, CNM [address] [place], [place] [address] documented as of this encounter Goals Goal Patient Goal Type Associated Problems Recent Progress Patient-Stated? Author I would like additional resources and support to manage my health and prevent future avoidable ED visits/hospital admissions Care Plan Increased risk of re-admission 40%( 3 9:21 AM LIFE MANAGEMENT TEACHER) No Irma Isaac LSW Note: Barriers: I [...] about symptoms I am having by calling [phone]. 3. I will talk with my PCP about my specific health concerns and when it is appropriate for me to go to urgent care and/or ED. Improve management of mental health symptoms and establish with mental health/psychosocia l supports Care Plan Mental Health Symptoms Need Improvement 10%( 3 9:21 AM LIFE MANAGEMENT TEACHER) No Irma Isaac LSW Note: Barriers: Therapy [...] as needed when I feel anxious. 4. Instructional Design Consultant and I will check to see if [...] documented as of this encounter Care Teams Brush Sander Relationship Specialty Start Date End Date Alber Estrada PA-C [address] [place] [address] PCP - General Family Medicine 11/03/23 Tc Jama MD [address] [place] [address] Pediatric Surgery 02/14/20 Alber Estrada PA-C [address] [facility] [place] [address] Assigned PCP 09/07/21 Navid Regalado MD 9 [place], [place] [address] Dermatology 04/30/23 Willow Mcnulty APRN METEOROLOGY PROFESSOR [address] [address] Nurse Practitioner Nurse Practitioner Primary Care 06/02/23 Lashae Holt APRN METEOROLOGY PROFESSOR [address] [id number] Nurse Practitioner Pain Medicine 06/02/23 Lamont Marcus MD [address] [facility] 100 [place] [address] study lead 06/25/23 Esau Monte MD [address], [facility] 100 [place] [address] Assigned OBGYN Provider 07/17/23 Liv Olson PA-C [address] [facility] 377 [place], [place] [address] Physician Care Management Assistant Urology 09/23/23 Eda Duarte MD [address] [place] [address] 394 [place], [place] [address] Assigned Surgical Provider 11/09/23 12/08/23 Karoline Su, [facility] [address] [place] [address] Assigned Behavioral Health Provider 11/09/23 Navid Regalado MD [address] [place] [address] 900865 Assigned Surgical Provider 12/09/23 Cony Cameron RN RN Clinical Product Navigator Primary Care - CC 04/10/24 04/10/24 Chip Crane LSW Clinic Instructional Design Consultant Primary Care - CC 04/10/24 Caitlin Tarango CNM [address] [address] Head Of Loss Prevention study lead 05/31/24 documented as of this encounter
--- OUTSIDE RECORDS SUMMARY | 2024-06-14 09:55 | XMS_ITS | Encounter Summary ---
Author Organization [place] Address [address] [place] [address] Care Team Providers Care Junior Paralegal Name Role Phone Tc Jama MD Unavailable [phone] Alber Estrada PA-C Unavailable Naivd Regalado MD Unavailable [phone] Willow Mcnulty APRN SALES LEADER Unavailable [phone] Lashae Holt METAL TURNER SALES LEADER Unavailable + Lamont Marcus MD Unavailable [phone] Esau Monet MD Unavailable [phone] Liv Olson PA-C Unavailable Alber Estrada PA-C Primary Care Provider Karoline Su COFOUNDER Unavailable [phone] Navid Regalado MD Unavailable [phone] Cony Cameron RN Unavailable [phone] Chip CraneW Unavailable [phone] Caitlin Tarango CN Unavailable [phone] Encounter Details Date Type Department Care Team (Late st Contact Info) Description 02/01/2024 [facility] [address] [address] Denia Alejo RN Social History Tobacco Use Types Packs/Day [...] declined 10/26/2023 How often do you attend protestant or jewish serv ices? Never 10/26/2023 Do you belong to any clubs o r organizations such as protestant groups, unions, fraternal [...] Answer Date Recorded PHQ-2 Score 0 10/26/2023 [facility] of Occupat ional Health - [...] Sex Assigned at Female 09/04/2021 9:00 PM DECK HAND Legal Sex Female 4:25 AM DECK HAND Gender Identity Female 09/04/2021 9:00 PM DECK HAND Sexual Orientation Straight 09/04/2021 9: 00 PM DECK HAND documented as of this encounter Plan of Treatment Upcoming Encounters Date Type Department Care Team (Late st Contact Info) Description 07/04/2024 2:30 PM DECK HAND Office Visit [facility] [address] [place] [address] Alber Estrada, KARIN [address] [place], [place] [address] 07/05/2024 2:00 PM DECK HAND Office Visit [facility] [address] [place] [address] Sukhdeep Caitlin Patricia, CNM [address] [place] [address] documented as of this encounter Goals Goal Patient Goal Type Associated Problems Recent Progress Patient-Stated? Author I would like additional resources and support to manage my health and prevent future avoidable ED visits/hospital admissions Care Plan Increased risk of re-admission 40%( 3 9:21 AM DECK HAND) No Irma Isaac LSW Note: Barriers: [...] about symptoms I am having by calling [phone]. 3. I will talk with my PCP about my specific health concerns and when it is appropriate for me to go to urgent care and/or ED. Improve management of mental health symptoms and establish with mental health/psychosocia l supports Care Plan Mental Health Symptoms Need Improvement 10%( 3 9:21 AM DECK HAND) No Irma Isaac LSW Note: Barriers: [...] as needed when I feel anxious. 4. Rigger Chief and I will check to see if [...] documented as of this encounter Care Teams Junior Paralegal Relationship Specialty Start Date End Date Alber Estrada PA-C [address] [address] [place] [address] PCP - General Family Medicine 11/03/23 Tc Jama MD [address] 069[address] Pediatric Surgery 02/14/20 Alber Estraad PA-C [address] [address] [place] [address] Assigned PCP 09/07/21 Navid Regalado MD 909 [place], [place] [address] Dermatology 04/30/23 Willow Mcnulty APRN SALES LEADER [address] [place] [address] Nurse Practitioner Nurse Practitioner Primary Care 06/02/23 Lashae Holt APRN SALES LEADER [address] [address] Nurse Practitioner Pain Medicine 06/02/23 Lamont Marcus MD [address] [place] [address] regulatory consultant 06/25/23 Esau Monet MD [address], [address] [place] [address] Assigned OBGYN Provider 07/17/23 Liv Olson PA-C [address] [place], [place] [address] Physician Quick Sketch Artist Urology 09/23/23 Karoline Su, [facility] [address] [place], [place] [phone] Assigned Behavioral Health Provider 11/09/23 Navid Regalado MD 909 [place], [place] [address] Assigned Surgical Provider 12/09/23 Cony Cameron RN RN Clinical Product Navigator Primary Care - CC 04/10/24 04/10/24 Chip Crane LSW Clinic Rigger Chief Primary Care - CC 04/10/24 Caitlin Tarango CNM [address] [facility] 700 [place], [place] [address] Corn Chip Maker regulatory consultant 05/31/24 documented as of this encounter
--- OUTSIDE RECORDS SUMMARY | 2024-06-14 09:56 | XMS_ITS | Encounter Summary ---
Author Organization [place] Address [facility] [place] [address] Care Team Providers Care Drivers' Cash Clerk Name Role Phone Queta Fritz MD Primary Care Provider Unavailable Queta Fritz MD Primary Care Provider Unavailable Maryann Connorsnicki PEST LOCATOR Unavailable [phone] Queta Fritz MD Unavailable Unava ilable Queta Fritz MD Unavailable Unava ilable Tc Jama MD Unavailable [phone] Tc Jama MD Unavailable [phone] Khalida Beyer MD Primary Care Provider Rosario Noe APRN Unavailable Eda Duarte MD Unavailable [phone] Mike Sherwood MD Unavailable [phone] Navid Paige MD Unavailable [phone] Norma Ruggiero APRN BROKERAGE PURCHASE AND SALE CLERK Unavailable [phone] Queta Fritz MD Unavailable Unava ilable Norma Ruggiero APRN BROKERAGE PURCHASE AND SALE CLERK Unavailable [phone] No Ref-Primary, Physician Primary Care Provider Alber Estrada PA-C Unavailable + Albre EstradaC Primary Care Provider Maxine Patel CNM Unavailable [phone] No Ref-Primary, Physician Primary Care Provider Navid Regalado MD Unavailable [phone] Willow Mcnulty TERRY BROKERAGE PURCHASE AND SALE CLERK Unavailable [phone] Jonathon Lashae Whittaker TABLE MAKER BROKERAGE PURCHASE AND SALE CLERK Unavailable + Irma Isaac AUTOMOTIVE STARTER REPAIRER Unavailable [phone] Lamont Marcus MD Unavailable [phone] Irma Isaac AUTOMOTIVE STARTER REPAIRER Unavailable [phone] Alber Estrada PA-C Unavailable + Lamont Marcus MD Unavailable [phone] Esau Monet MD Unavailable [phone] Ahmet Almaguer MD Unavailable [phone] Liv OlsonC Unavailable Alber EstradaC Primary Care Provider Eda Duarte MD Unavailable [phone] Karoline Su RELIEF PILOT Unavailable [phone] Navid Regalado MD Unavailable [phone] Cony Cameron RN Unavailable [phone] Chip Crane AUTOMOTIVE STARTER REPAIRER Unavailable [phone] Caitlin Tarango CNM Unavailable [phone] Reason for Visit * Reason Onset Date Comments MH/CD Inpatient 12/18/2015 Encounter Details Date Type Department Care Team ([facility] st Contact Info) Description 12/18/2015 Telephone [facility] Behavioral Health Intake [address] [place] [address] Generic, Behavioral Intake, MH/CD Inpatient Social History Tobacco Use Types Packs/Day Years Used Date Smoking Tobacco: Never Smokeless Tobacco: Never Comments:no smokers in house hold Alcohol Use Standard Drinks/Week Comments No 0 (1 standard drink = 0.6 oz pur e alcohol) Comments No Sex and Gender Information Value Date Recorded Sex Assigned at Female 09/04/2021 9:00 PM MULTICULTURAL SERVICES LIBRARIAN Legal Sex Female 4:25 AM MULTICULTURAL SERVICES LIBRARIAN Gender Identity Female 09/04/2021 9:00 PM MULTICULTURAL SERVICES LIBRARIAN Sexual Orientation Straight 09/04/2021 9: 00 PM MULTICULTURAL SERVICES LIBRARIAN documented as of this encounter Miscellaneous Notes * Telephone Encounter - Jarrett Eleanor Vasquez - 12/18/2015 12:36 AM CDT 12/18/15 S: pt was bib police, followed by mom, to [facility]. Pt is having suicidal ideation, plan to layin the street, and increased aggression at home. B: pt has hx of autism, odd, and a chromosomal abnormality. Stressors for pt include dad having als, parents divorce, and mom trying to sell the [...] er. Mom will sign in. R: admit 7a-jamal/mckeon documented in this encounter Plan of Treatment Upcoming Encounters Date Type Department Care Team (Late st Contact Info) Description 07/04/2024 2:30 PM MULTICULTURAL SERVICES LIBRARIAN Office Visit [facility] [address] [place] [address] Alber Estrada PA-C [address] [place] [address] 07/05/2024 2:00 PM MULTICULTURAL SERVICES LIBRARIAN Office Visit [facility] Women's [address] [place] [address] [place] [address] Caitlin Tarango, CNM [address] [place] [id number] documented as of this encounter Visit Diagnoses Not on filedocumented in this encounter Additional Health Concerns Infection Onset Date Last Indicated Resolved Time Rule Out COVID-19 06/07/2020 06/07/2020 06/08/2020 7:34 PM MULTICULTURAL SERVICES LIBRARIAN Rule Out COVID-19 08/23/2021 08/23/2021 08/23/2021 9:17 PM MULTICULTURAL SERVICES LIBRARIAN Rule Out COVID-19 04/21/2022 04/21/2022 04/21/2022 8:57 PM CDT Rule Out COVID-19 06/16/2022 06/16/2022 06/16/2022 10:51 PM MULTICULTURAL SERVICES LIBRARIAN Influenza 06/16/2022 06/16/2022 06/23/2022 11:4 0 PM MULTICULTURAL SERVICES LIBRARIAN Rule Out COVID-19 03/02/2023 03/02/2023 03/02/2023 7:24 PM CDT Rule Out COVID-19 04/28/2023 04/28/2023 04/28/2023 1:13 AM CDT Rule Out COVID-19 05/04/2023 05/04/2023 05/04/2023 8:26 PM CDT Rule Out COVID-19 05/19/2023 05/19/2023 05/20/2023 12:58 AM CDT Rule Out COVID-19 06/17/2023 06/17/2023 06/17/2023 2:16 AM MULTICULTURAL SERVICES LIBRARIAN Rule Out C-difficile 07/21/2023 07/21/2023 024 8:45 AM MULTICULTURAL SERVICES LIBRARIAN Rule Out COVID-19 11/07/2023 11/07/2023 11/07/2023 10:43 PM CDT documented as of this encounter Care Teams Drivers' Cash Clerk Relationship Specialty Start Date End Date Queta Fritz MD PCP - General Pediatrics 11/15/14 12/18/15 Queta Fritz MD PCP - General Pediatrics 12/19/15 05/27/20 Queta Fritz MD NO LONGER AT [facility]/UNABLE TO LOCATE 07/05/23 PCP - Assigned PCP 03/04/14 09/20/18 Khalida Beyer MD [address] [place] [address] PCP - General Psychiatry 05/28/20 08/22/21 No Ref-Primary, Physician PCP - General 08/23/21 06/18/22 Alber Estrada PA-C [address] [id number] PCP - General Family Medicine 06/19/22 07/15/22 No Ref-Primary, Physician PCP - General 08/27/22 11/02/23 Alber Estrada PA-C [address] [id number] PCP - General Family Medicine 11/03/23 Joseline Connors, PEST LOCATOR Education Diagnostician 11/05/16 11/23/16 Queta Fritz MD NO LONGER AT [facility] [place]/UNABLE TO LOCATE 07/05/23 Assigned PCP 03/04/14 04/12/21 Tc Jama MD [address] [place] [address] [id number] Pediatric Surgery 02/14/20 Tc Jama MD [address] [place] [address] Assigned Pediatric Specialist Provider 05/10/20 09/06/21 Rosario Noe APRN CN [facility] [address] [facility] 160 [place], [place] [id number] Assigned OBGYN Provider 07/21/20 2 Eda Duarte MD [address] [place] [address] 394 [place], [place] 4[address]35 Assigned Surgical Provider 10/02/20 06/05/22 [place] [address] [place] [address] 593006 Assigned Sleep Provider 01/31/21 3 Navid Paige MD 909 [place], [place] 440995 Assigned Musculoskeletal Provider 03/16/21 09/11/22 Norma Ruggiero APRN BROKERAGE PURCHASE AND SALE CLERK [address] [address] Assigned PCP 04/13/21 05/24/21 Queta Fritz MD NO LONGER AT [facility] [place]/UNABLE TO LOCATE 07/05/23 Assigned PCP 05/25/21 07/26/21 Norma Ruggiero APRN BROKERAGE PURCHASE AND SALE CLERK 2450 [facility] [address] [address] Assigned PCP 07/27/21 09/06/21 Alber Estrada PA-C [address] [place] 0477868 Assigned PCP 09/07/21 Maxine Patel CNM [address] [place] [address] Assigned OBGYN Provider 07/25/2207/02 Navid Regalado MD [address] [place] [address] 728245 Dermatology 04/30/23 Willow Mcnulty APRN BROKERAGE PURCHASE AND SALE CLERK [address] 1501[address] Nurse Practitioner Nurse Practitioner Primary Care 06/02/23 Lashae Holt APRN BROKERAGE PURCHASE AND SALE CLERK [address] [place] [address] Nurse Practitioner Pain Medicine 06/02/23 Irma Isaac, [facility] Clinic Membership Counselor Primary Care - CC 06/08/23 Lamont Marcus MD [address] [address] software developer mid level 06/25/23 Irma Isaac, AUTOMOTIVE STARTER REPAIRER Lead Membership Counselor Primary Care - CC 06/29/2306/19 Alber Estrada PA-C [address] [place] [place] [address] Assigned Pain Medication Provider 07/03/23 08/11/23 Lamont Marcus MD [address] [address] Assigned OBGYN Provider 07/03/2307/16 Esau Monet MD [address], [facility] 100 [place] [address] Assigned OBGYN Provider 07/17/23 Ahmet Almaguer MD [address] [place] [address] Assigned Surgical Provider 08/20/23 11/08/23 Liv Olson PA-C [address] [facility] 377 [place] [address] Physician Water Team Leader Urology 09/23/23 Eda Duarte MD 420 [facility] 394 [place], [place] [address] Assigned Surgical Provider 11/09/23 12/08/23 Karoline Su, [facility] [address] [place] [address] Assigned Behavioral Health Provider 11/09/23 Navid Regalado MD 9 [place], [place] [address] Assigned Surgical Provider 12/09/23 Cony Cameron RN RN Clinical Product Navigator Primary Care - CC 04/10/24 04/10/24 Chip Crane LSW Clinic Membership Counselor Primary Care - CC 04/10/[address] CNM [address] [address] Bisque Cleaner software developer mid level 05/31/24 documented as of this encounter
--- OUTSIDE RECORDS SUMMARY | 2024-06-14 09:56 | XMS_ITS | Encounter Summary ---
Author Organization [place] [facility] [place] [address] Care Team Providers Care Meeting Planner Name Role Phone Queta Fritz MD Unavailable Unava ilable Tc Jama MD Unavailable [phone] Tc Jama MD Unavailable [phone] Khalida Beyer MD Primary Care Provider +[phone] Rosario Noe APRN CNM Unavailable [phone] Eda Duarte MD Unavailable [phone] Mike Sherwood MD Unavailable +[phone] Navid Paige MD Unavailable +[phone] Norma Ruggiero APRN BREAST PULLER Unavailable + [phone] Queta Fritz MD Unavailable Unava ilNorma Prince APRN BREAST PULLER Unavailable + [phone] No Ref-Primary, Physician Primary Care Provider Alber Estrada PA-C Unavailable +[phone] Alber Estrada PA-C Primary Care Provider Maxine Patel CNM Unavailable [phone] No Ref-Primary, Physician Primary Care Provider Navid Regalado MD Unavailable +[phone] Willow Mcnulty TERRY BREAST PULLER Unavailable +[phone] EduarLashae pringle CITY JAILER BREAST PULLER Unavailable + Poncho Irma Mora WAGE AND HOUR INVESTIGATOR Unavailable Lamont Marcus MD Unavailable [phone] Poncho Irma Mora WAGE AND HOUR INVESTIGATOR Unavailable +[phone] Alber Estrada PA-C Unavailable [phone] Lamont Marcus MD Unavailable [phone] Esau Monet MD Unavailable [phone] Ahmet Almaguer MD Unavailable +[phone] iLv Olson PA-C Unavailable Alber Estrada-C Primary Care Provider Eda Duarte MD Unavailable +[phone] Karoline Su IBM BPM DEVELOPER Unavailable +[phone] Navid Regalado MD Unavailable +[phone] Cony Cameron RN Unavailable [phone] Chip Crane WAGE AND HOUR INVESTIGATOR Unavailable [phone] Caitlin Tarango [facility] Unavailable +[phone] Encounter Details Date Type Department Care Team (Late st Contact Info) Description 03/27/2021 [facility] Medical Advice [facility] [address] [address] Esteban Cho, [place] Social History Tobacco Use Types Packs/Day Years [...] Family Three times a week 12/07/2018 Attends Zoroastrian Services Never 12/07 Active Member of Clubs or Organizations No 12/07/2018 Attends Club or Organization Meetings Never 12/07/2018 Marital Status Patient declined 12/07/2018 AUDIT-C Answer Date Recorded Frequency of Alcohol Consumption Never 12/07/2018 Average Number of Drinks Patient declined 2018 Frequency of Binge Drinking Never 11/17 PHQ-2 Answer Date Recorded PHQ-2 Score 0 12/03/2020 [facility] Occupat ional Health - Occupational Stress Questionnaire Answer Date Recorded Feeling of Stress Not at all 12/07/2018 Exercise Vital Sign Answer Date Recorde d Days of Exercise per Week 7 days 2018 Minutes of Exercise per Session 20 min 12/07/2018 Hunger Vital Sign Answer Date Recorded Worried About Running Out of Food in the Last Ye ar Never true 12/07/2018 Ran Out of Food in the Last Year Never true 12/07/2018 PRAPARE - Transportation Answer Date Re corded Lack of Transportation (Medical) No 12/07/2018 Lack of Transportation (Non-Medical) No 12/07/2018 Education Answer Date Recorded What is the highest level of school you have completed or the highest degree you have received? 10th grade 12/07/2018 Comments No Sex and Gender Information Value Date Recorded Sex Assigned at Female 09/04/2021 9:00 PM TOBY MAKER Legal Sex Female 4:25 AM TOBY MAKER Gender Identity Female 09/04/2021 9:00 PM TOBY MAKER Sexual Orientation Straight 09/04/2021 9: 00 PM TOBY MAKER COVID-19 Exposure Response Date Recorded In the last month, have you been in contact with someone who was confirmed or suspected to have Coronavirus / COVID-19? No / Unsure 03/17/2021 8:05 PM CDT documented as of this encounter Plan of Treatment Upcoming Encounters Date Type Department Care Team (Late st Contact Info) Description 07/04/2024 2:30 PM TOBY MAKER Office Visit [facility] [address] [place] [address] Alber Estrada PA-C [address] [place] [address] 07/05/2024 2:00 PM TOBY MAKER Office Visit [facility] [address] [place] [address] Caitlin Tarango, CNM [address] [place] [address] documented as of this encounter Visit Diagnoses Not on filedocumented in this encounter Additional Health Concerns Infection Onset Date Last Indicated Resolved Time Rule Out COVID-19 08/23/2021 08/23/2021 08/23/2021 9:17 PM TOBY MAKER Rule Out COVID-19 04/21/2022 04/21/2022 04/21/2022 8:57 PM CDT Rule Out COVID-19 06/16/2022 06/16/2022 06/16/2022 10:51 PM TOBY MAKER Influenza 06/16/2022 06/16/2022 06/23/2022 11:4 0 PM TOBY MAKER Rule Out COVID-19 03/02/2023 03/02/2023 03/02/2023 7:24 PM CDT Rule Out COVID-19 04/28/2023 04/28/2023 04/28/2023 1:13 AM CDT Rule Out COVID-19 05/04/2023 05/04/2023 05/04/2023 8:26 PM CDT Rule Out COVID-19 05/19/2023 05/19/2023 05/20/2023 12:58 AM CDT Rule Out COVID-19 06/17/2023 06/17/2023 06/17/2023 2:16 AM TOBY MAKER Rule Out C-difficile 07/21/2023 07/21/2023 024 8:45 AM TOBY MAKER Rule Out COVID-19 11/07/2023 11/07/2023 11/07/2023 10:43 PM CDT Assessment Noted Time PHQ-9 Depression Total Score: 13 020 10:44 AM TOBY MAKER documented as of this encounter Care Teams Meeting Planner Relationship Specialty Start Date End Date Khalida Beyer MD [address] [facility] [address] [place] [address] PCP - General Psychiatry 05/28/20 08/22/21 No Ref-Primary, Physician PCP - General 08/23/21 06/18/22 Alber Estrada PA-C [address] [place] [address] PCP - General Family Medicine 06/19/22 07/15/22 No Ref-Primary, Physician PCP - General 08/27/22 11/02/23 Alber sEtrada PA-C [address] [address] PCP - General Family Medicine 11/03/23 Queta Fritz MD NO LONGER AT [facility]/UNABLE TO LOCATE 07/05/23 Assigned PCP 03/04/14 04/12/21 Tc Jama MD [address] [address] Pediatric Surgery 02/14/20 Tc Jama MD [address] [place] [address] Assigned Pediatric Specialist Provider 05/10/20 09/06/21 Rosario Noe APRN CNM [facility] 2635 [facility] 160 [place] [address] Assigned OBGYN Provider 07/21/20 2 Eda Duarte MD 420 [facility] 394 [place], [place] [address] Assigned Surgical Provider 10/02/20 06/05/22 [place] [address] [place], [place] [address] Assigned Sleep Provider 01/31/21 3 Navid Paige MD [address] [place] [id number] Assigned Musculoskeletal Provider 03/16/21 09/11/22 Norma Ruggiero APRN BREAST PULLER 2450 [facility] 505 [place], [place] [address] Assigned PCP 04/13/21 05/24/21 Queta Fritz MD NO LONGER AT [facility]/UNABLE TO LOCATE 07/05/23 Assigned PCP 05/25/21 07/26/21 Norma Ruggiero APRN BREAST PULLER 2450 [facility] 505 [place], [place] [address] Assigned PCP 07/27/21 09/06/21 Alber Estrada PA-C [address] [place] [address] Assigned PCP 09/07/21 Maxine Patel CNM [address] [place] [address] Assigned OBGYN Provider 07/25/2207/02 Navid Regalado MD 909 [place] [address] Dermatology 04/30/23 Willow Mcnulty APRN BREAST PULLER [address] [place] [address] Nurse Practitioner Nurse Practitioner Primary Care 06/02/23 Lashae Holt APRN BREAST PULLER 1600 [facility] 101 [place] [address] Nurse Practitioner Pain Medicine 06/02/23 Irma Isaac, [facility] Clinic Text Transcriber Primary Care - CC 06/08/23 Lamont Marcus MD [address] [address] dray driver 06/25/23 Irma Isaac, WAGE AND HOUR INVESTIGATOR Lead Text Transcriber Primary Care - CC 06/29/2306/19 Alber Estrada PA-C [address] [place] [address] Assigned Pain Medication Provider 07/03/23 08/11/23 Lamont Marcus MD [address] [address] Assigned OBGYN Provider 07/03/2307/16 Esau Monet MD [address], [address] [address] Assigned OBGYN Provider 07/17/23 Ahmet Almaguer MD [address] [place], [place] [address] Assigned Surgical Provider 08/20/23 11/08/23 Liv Olson PA-C [address] [facility] [address] [place], [place] [id number] Physician Production Control Manager Urology 09/23/23 Eda Duarte MD 420 [facility] 394 [place], [place] [address] Assigned Surgical Provider 11/09/23 12/08/23 Karoline Su, [facility] [address] [place], [place] [id number] Assigned Behavioral Health Provider 11/09/23 Navid Regalado MD [address] [place], [place] [address] Assigned Surgical Provider 12/09/23 Cony Cameron RN RN Clinical Product Navigator Primary Care - CC 04/10/24 04/10/24 Chip Crane LSW Clinic Text Transcriber Primary Care - CC 04/10/24 Caitlin Tarango CNM 606 24[facility] 700 [place], [place] [address] Housing Case Manager dray driver 05/31/24 documented as of this encounter
--- OUTSIDE RECORDS SUMMARY | 2024-06-14 09:56 | XMS_ITS | Encounter Summary ---
Author Organization [place] [facility] [place] [address] Care Team Providers Care Stabilizing Machine Operator Name Role Phone Tc Jama MD Unavailable [phone] Tc Jama MD Unavailable [phone] Rosario Noe TRAFFIC EXPERT CNM Unavailable Eda Duarte MD Unavailable [phone] Mike Sherwood MD Unavailable [phone] Navid Pagie MD Unavailable [phone] Norma Ruggiero TRAFFIC EXPERT ALLEY TENDER Unavailable [phone] No Ref-Primary, Physician Primary Care Provider Alber Estrada PA-C Unavailable [phone] Alber Estrada PA-C Primary Care Provider Maxine Patel CNM Unavailable [phone] No Ref-Primary, Physician Primary Care Provider Navid Regalado MD Unavailable [phone] Willow Mcnulty APRN ALLEY TENDER Unavailable [phone] Lashae Holt APRN ALLEY TENDER Unavailable + Irma Isaac MEDICAL STAFFING COORDINATOR Unavailable [phone] Lamont Marcus MD Unavailable [phone] Poncho Irma Mora MEDICAL STAFFING COORDINATOR Unavailable [phone] Alber EstradaC Unavailable +[phone] Lamont Marcus MD Unavailable [phone] Esau Monet MD Unavailable [phone] Ahmet Almaguer MD Unavailable [phone] Liv OlsonC Unavailable Alber EstradaC Primary Care Provider Eda Duarte MD Unavailable [phone] Karoline Su ENGINEERING OPERATOR Unavailable +[phone] Navid Regalado MD Unavailable +[phone] Cony Cameron RN Unavailable [phone] Chip CraneW Unavailable [phone] Caitlin Tarango CN Unavailable [phone] Encounter Details Date Type Department Care Team (Late st Contact Info) Description 08/23/2021 Documentation Only INTERFACED REPORT Unknown, [...] Family Three times a week 12/07/2018 Attends Bahai Services Never 12/07 Active Member of Clubs or Organizations No 12/07/2018 Attends Club or Organization Meetings Never 12/07/2018 Marital Status Patient declined 12/07/2018 AUDIT-C Answer Date Recorded Frequency of Alcohol Consumption Never 12/07/2018 Average Number of Drinks Patient declined 2018 Frequency of Binge Drinking Never 11/17 PHQ-2 Answer Date Recorded PHQ-2 Score 0 12/03/2020 [facility] of Occupat ional Health - Occupational Stress [...] Sex Assigned at Female 09/04/2021 9:00 PM FILTER PLANT OPERATOR Legal Sex Female 4:25 AM FILTER PLANT OPERATOR Gender Identity Female 09/04/2021 9:00 PM FILTER PLANT OPERATOR Sexual Orientation Straight 09/04/2021 9: 00 PM FILTER PLANT OPERATOR COVID-19 Exposure Response Date Recorded In the last month, have you been in contact with someone who was confirmed or suspected to have Coronavirus / COVID-19? No / Unsure 08/23/2021 6:55 PM FILTER PLANT OPERATOR documented as of this encounter Plan of Treatment Upcoming Encounters Date Type Department Care Team (Late st Contact Info) Description 07/04/2024 2:30 PM FILTER PLANT OPERATOR Office Visit [facility] [address] [place] [address] Alber Estrada PA-C [address] [place] [address] 07/05/2024 2:00 PM FILTER PLANT OPERATOR Office Visit [facility] [address] [place] [address] Caitlin Tarango, AL[place] [address] [facility] 700 [place] [address] documented as of this encounter Visit Diagnoses Not on filedocumented in this encounter Additional Health Concerns Infection Onset Date Last Indicated Resolved Time Rule Out COVID-19 08/23/2021 08/23/2021 08/23/2021 9:17 PM FILTER PLANT OPERATOR Rule Out COVID-19 04/21/2022 04/21/2022 04/21/2022 8:57 PM CDT Rule Out COVID-19 06/16/2022 06/16/2022 06/16/2022 10:51 PM FILTER PLANT OPERATOR Influenza 06/16/2022 06/16/2022 06/23/2022 11:4 0 PM FILTER PLANT OPERATOR Rule Out COVID-19 03/02/2023 03/02/2023 03/02/2023 7:24 PM CDT Rule Out COVID-19 04/28/2023 04/28/2023 04/28/2023 1:13 AM CDT Rule Out COVID-19 05/04/2023 05/04/2023 05/04/2023 8:26 PM CDT Rule Out COVID-19 05/19/2023 05/19/2023 05/20/2023 12:58 AM CDT Rule Out COVID-19 06/17/2023 06/17/2023 06/17/2023 2:16 AM FILTER PLANT OPERATOR Rule Out C-difficile 07/21/2023 07/21/2023 024 8:45 AM FILTER PLANT OPERATOR Rule Out COVID-19 11/07/2023 11/07/2023 11/07/2023 10:43 PM CDT Assessment Noted Time PHQ-9 Depression Total Score: 13 020 10:44 AM FILTER PLANT OPERATOR documented as of this encounter Care Teams Stabilizing Machine Operator Relationship Specialty Start Date End Date No Ref-Primary, Physician PCP - General 08/23/21 06/18/22 Alber Estrada PA-C [address] [place] [address] PCP - General Family Medicine 06/19/22 07/15/22 No Ref-Primary, Physician PCP - General 08/27/22 11/02/23 Alber Estrada PA-C [address] [place] [address] PCP - General Family Medicine 11/03/23 Tc Jama MD [address] [place] [address] [id number] Pediatric Surgery 02/14/20 Tc Jama MD [facility] [place] [address] [address] Assigned Pediatric Specialist Provider 05/10/20 09/06/21 Rosario Noe APRN CNM [facility] [address] [id number] Assigned OBGYN Provider 07/21/20 2 Eda Duarte MD [address] [place] [address] [address] [place], [place] [address] Assigned Surgical Provider 10/02/20 06/05/22 Mike Sherwood MD [address] [place] [id number] Assigned Sleep Provider 01/31/21 3 Navid Paige MD [address] [place] [address] Assigned Musculoskeletal Provider 03/16/21 09/11/22 Norma Ruggiero APRN ALLEY TENDER [address] [place] [address] Assigned PCP 07/27/21 09/06/21 Alber Estrada PA-C [address] [place] [address] Assigned PCP 09/07/21 Maxine Patel CNM [address] [place] [address] Assigned OBGYN Provider 07/25/2207/02 Navid Regalado MD 909 [place] [address] Dermatology 04/30/23 Willow Mcnulty APRN ALLEY TENDER [address] [address] Nurse Practitioner Nurse Practitioner Primary Care 06/02/23 Lashae Holt APRN ALLEY TENDER [address] [place] [address] Nurse Practitioner Pain Medicine 06/02/23 Irma Isaac, MEDICAL STAFFING COORDINATOR Clinic Respiratory Care Instructor Primary Care - CC 06/08/23 Lamont Marcus MD [address] [address] beater dumper 06/25/23 Irma Isaac, MEDICAL STAFFING COORDINATOR Lead Respiratory Care Instructor Primary Care - CC 06/29/2306/19 Alber Estrada PA-C [address] [place] [address] Assigned Pain Medication Provider 07/03/23 08/11/23 Lamont Marcus MD [address] [facility] 100 [place] [address] Assigned OBGYN Provider 07/03/2307/16 Esau Monet MD [address], [facility] 100 [place] [address] Assigned OBGYN Provider 07/17/23 Ahmet Almaguer MD [address] [place] [address] Assigned Surgical Provider 08/20/23 11/08/23 Liv Olson PA-C [address] [facility] 377 [place] [address] Physician Turbine Mechanic Urology 09/23/23 Eda Duarte MD 420 [facility] [address] [place], [place] [address] Assigned Surgical Provider 11/09/23 12/08/23 Karoline Su, [facility] [address] [place] [address] Assigned Behavioral Health Provider 11/09/23 Navid Regalado MD [address] [place] [address] [id number] Assigned Surgical Provider 12/09/23 Cony Cameron RN RN Clinical Product Navigator Primary Care - CC 04/10/24 04/10/24 Chip Crane LSW Clinic Respiratory Care Instructor Primary Care - CC 04/10/24 Caitlin Tarango CNM [address] [address] Trade Mark Examiner beater dumper 05/31/24 documented as of this encounter
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
--- OUTSIDE RECORDS SUMMARY | 2024-06-14 09:56 | XMS_ITS | Encounter Summary ---
Author Organization [place] Address [facility] [place] [address] Care Team Providers Care Seismology Teacher Name Role Phone Queta Fritz MD Primary Care Provider Unavailable Joseline Connors PERCOLATOR OPERATOR Unavailable [phone] Queta Fritz MD Unavailable Unava ilable Queta Fritz MD Unavailable Unava ilable Tc Jama MD Unavailable [phone] Tc Jama MD Unavailable [phone] Khalida Beyer MD Primary Care Provider [phone] Rosario Noe APRN CN Unavailable [phone] Eda Duarte MD Unavailable [phone] Mike Sherwood MD Unavailable [phone] Navid Paige MD Unavailable [phone] Norma Ruggiero APRN DENTURE FINISHER Unavailable + [phone] Queta Fritz MD Unavailable Unava ilable Norma Ruggiero APRN DENTURE FINISHER Unavailable + [phone] No Ref-Primary, Physician Primary Care Provider Alber Estrada PA-C Unavailable + [phone] Alber Estrada PA-C Primary Care Provider PatelMaxine CNM Unavailable [phone] No Ref-Primary, Physician Primary Care Provider Navid Regalado MD Unavailable [phone] Willow Mcnulty TERRY DENTURE FINISHER Unavailable +[phone] Lashae Holt CARD SETTER DENTURE FINISHER Unavailable + Irma Isaac POT FIREMAN Unavailable +[phone] Lamont Marcus MD Unavailable [phone] Irma Isaac POT FIREMAN Unavailable +[phone] Alber Estrada PA-C Unavailable [phone] Lamont Marcus MD Unavailable Esau Monet MD Unavailable +[phone] Ahmet Almaguer MD Unavailable [phone] Liv OlsonC Unavailable Alber EstradaC Primary Care Provider Eda Duarte MD Unavailable [phone] Karoline Su PURIFICATION OPERATOR HELPER Unavailable +[phone] Navid Regalado MD Unavailable +[phone] Cony Cameron RN Unavailable [phone] Chip Crane POT FIREMAN Unavailable [phone] Sukhdeep Caitlin Patricia CNM Unavailable [phone] Reason for Visit * Reason Onset Date Comments Outpatient 12/26/2015 Encounter Details Date Type Department Care Team (Late st Contact Info) Description 12/26/2015 Telephone [facility] Behavioral Health Intake [address] [place] [address] Generic, Behavioral Intake, Outpatient Social History Tobacco Use Types Packs/Day Years Used Date Smoking Tobacco: Never Smokeless Tobacco: Never Comments:no smokers in house hold Alcohol Use Standard Drinks/Week Comments No 0 (1 standard drink = 0.6 oz pur e alcohol) Comments No Sex and Gender Information Value Date Recorded Sex Assigned at Female 09/04/2021 9:00 PM PEDIATRIC GENETIC COUNSELOR Legal Sex Female 4:25 AM PEDIATRIC GENETIC COUNSELOR Gender Identity Female 09/04/2021 9:00 PM PEDIATRIC GENETIC COUNSELOR Sexual Orientation Straight 09/04/2021 9: 00 PM PEDIATRIC GENETIC COUNSELOR documented as of this encounter Miscellaneous Notes * Telephone Encounter - Satnam Carter - 12/26/2015 12:04 PM CDT S: 12/26/15 Received call from Rochelle Sanz ([facility]/[phone]) referring client for a Diagnostic Assessment for Adolescent Day [place]. B: Reported the client was recent [facility]15 and her behavioral have started to escalate. Reported the client is at high risk, and mom is concerned about the client behavioral when she gets out of school for the summer. A: DA for Adol. Day [place] R: Pool message to the Adolescent MH OP Program. JT documented in this encounter Plan of Treatment Upcoming Encounters Date Type Department Care Team (Late st Contact Info) Description 07/04/2024 2:30 PM PEDIATRIC GENETIC COUNSELOR Office Visit [facility] [address] [place] [address] Alber Estrada PA-C [address] [place] [address] 07/05/2024 2:00 PM PEDIATRIC GENETIC COUNSELOR Office Visit [facility] [address] [place] [address] [place] [address] Caitlin Tarango, [facility] [address] [facility] [address] [place] [address] documented as of this encounter Visit Diagnoses Not on filedocumented in this encounter Additional Health Concerns Infection Onset Date Last Indicated Resolved Time Rule Out COVID-19 06/07/2020 06/07/2020 06/08/2020 7:34 PM PEDIATRIC GENETIC COUNSELOR Rule Out COVID-19 08/23/2021 08/23/2021 08/23/2021 9:17 PM PEDIATRIC GENETIC COUNSELOR Rule Out COVID-19 04/21/2022 04/21/2022 04/21/2022 8:57 PM CDT Rule Out COVID-19 06/16/2022 06/16/2022 06/16/2022 10:51 PM PEDIATRIC GENETIC COUNSELOR Influenza 06/16/2022 06/16/2022 06/23/2022 11:4 0 PM PEDIATRIC GENETIC COUNSELOR Rule Out COVID-19 03/02/2023 03/02/2023 03/02/2023 7:24 PM CDT Rule Out COVID-19 04/28/2023 04/28/2023 04/28/2023 1:13 AM CDT Rule Out COVID-19 05/04/2023 05/04/2023 05/04/2023 8:26 PM CDT Rule Out COVID-19 05/19/2023 05/19/2023 05/20/2023 12:58 AM CDT Rule Out COVID-19 06/17/2023 06/17/2023 06/17/2023 2:16 AM PEDIATRIC GENETIC COUNSELOR Rule Out C-difficile 07/21/2023 07/21/2023 024 8:45 AM PEDIATRIC GENETIC COUNSELOR Rule Out COVID-19 11/07/2023 11/07/2023 11/07/2023 10:43 PM CDT documented as of this encounter Care Teams Seismology Teacher Relationship Specialty Start Date End Date Queta Fritz MD PCP - General Pediatrics 12/19/15 05/27/20 Queta Fritz MD NO LONGER AT [facility]/UNABLE TO LOCATE 07/05/23 PCP - Assigned PCP 03/04/14 09/20/18 Khalida Beyer MD [address] [address] PCP - General Psychiatry 05/28/20 08/22/21 No Ref-Primary, Physician PCP - General 08/23/21 06/18/22 Alber Estrada PA-C [address] [facility] [place] [id number] PCP - General Family Medicine 06/19/22 07/15/22 No Ref-Primary, Physician PCP - General 08/27/22 11/02/23 Alber Estrada PA-C [address] [place] [id number] PCP - General Family Medicine 11/03/23 Joseline Connors, PERCOLATOR OPERATOR Order Puller 11/05/16 11/23/16 Queta Fritz MD NO LONGER AT [facility]/UNABLE TO LOCATE 07/05/23 Assigned PCP 03/04/14 04/12/21 Tc Jama MD [facility] [address] [address] Pediatric Surgery 02/14/20 Tc Jama MD [facility] [address] [place] [address] Assigned Pediatric Specialist Provider 05/10/20 09/06/21 Rosario Noe APRN CNM [facility] [address] [facility] 160 [place] [address] Assigned OBGYN Provider 07/21/20 Eda Nice MD 420 [facility] 394 [place], [place] [address] Assigned Surgical Provider 10/02/20 06/05/22 Mike Sherwood MD [address] [place], [place] 34[address]36 Assigned Sleep Provider 01/31/21 Navid Posada MD 909 [place], [place] [address]245 Assigned Musculoskeletal Provider 03/16/21 09/11/22 Norma Ruggiero APRN DENTURE FINISHER 2450 [facility] [address] [address], [place] [address] Assigned PCP 04/13/21 05/24/21 Queta Fritz MD NO LONGER AT [facility]/UNABLE TO LOCATE 07/05/23 Assigned PCP 05/25/21 07/26/21 Norma Ruggiero APRN DENTURE FINISHER 2450 [facility] [address] [place] [address] Assigned PCP 07/27/21 09/06/21 Alber Estrada PA-C [address] [place] [address] Assigned PCP 09/07/21 Maxine Patel CNM [address] [place] [address] Assigned OBGYN Provider 07/25/2207/02 Navid Regalado MD [address]09 [place] [address] Dermatology 04/30/23 Willow Mcnulty APRN DENTURE FINISHER [address] [address] Nurse Practitioner Nurse Practitioner Primary Care 06/02/23 Lashae Holt APRN DENTURE FINISHER [address] [place] [address] Nurse Practitioner Pain Medicine 06/02/23 Irma Isaac, POT FIREMAN Clinic Lead Game Designer Primary Care - CC 06/08/23 Lamont Marcus MD [address] [address] grading machine feeder 06/25/23 Irma Isaac, POT FIREMAN Lead Lead Game Designer Primary Care - CC 06/29/2306/19 Alber Estrada PA-C [address] [place] [address] Assigned Pain Medication Provider 07/03/23 08/11/23 Lamont Marcus MD [address] [address] Assigned OBGYN Provider 07/03/2307/16 Esau Monet MD [address] [employer], [address] [address] Assigned OBGYN Provider 07/17/23 Ahmet Almaguer MD [address] [place] [address] Assigned Surgical Provider 08/20/23 11/08/23 Liv Olson PA-C [address] [place], [place] [address] Physician Associate Professor Of Pathology Urology 09/23/23 Eda Duarte MD 420 [facility] 394 [place], [place] [address] Assigned Surgical Provider 11/09/23 12/08/23 Karoline Su [facility] [address] [place], [place] [id number] Assigned Behavioral Health Provider 11/09/23 Navid Regalado MD [address] [place], [place] [address] Assigned Surgical Provider 12/09/23 Cony Cameron RN RN Clinical Product Navigator Primary Care - CC 04/10/24 04/10/24 Chip Crane LSW Clinic Lead Game Designer Primary Care - CC 04/10/24 Caitlin Tarango CNM [address] [facility] [address] [address], [place] [address] Addresser grading machine feeder 05/31/24 documented as of this encounter
--- OUTSIDE RECORDS SUMMARY | 2024-06-14 09:56 | XMS_ITS | Encounter Summary ---
Author Organization [place] Address [facility] [place] [address] Care Team Providers Care Logistics Team Leader Name Role Phone Queta Fritz MD Unavailable Unava ilable Tc Jama MD Unavailable [phone] Tc Jama MD Unavailable [phone] Khalida Beyer MD Primary Care Provider [phone] Rosario Noe APRN CNM Unavailable [phone] Eda Duarte MD Unavailable [phone] Mike Sherwood MD Unavailable [phone] Navid Paige MD Unavailable +[phone] Norma Ruggiero APRN IDENTIFICATION AND RECORDS COMMANDER Unavailable + [phone] Queta Fritz MD Unavailable Unava ilNorma Prince APRN IDENTIFICATION AND RECORDS COMMANDER Unavailable + [phone] No Ref-Primary, Physician Primary Care Provider Alber Estrada PA-C Unavailable +[phone] Alber Estrada PA-C Primary Care Provider Maxine Patel CNM Unavailable [phone] No Ref-Primary, Physician Primary Care Provider Navid Regalado MD Unavailable +[phone] Willow Mcnulty TERRY IDENTIFICATION AND RECORDS COMMANDER Unavailable +[phone] dennisLashae pringle SAND TEMPERER IDENTIFICATION AND RECORDS COMMANDER Unavailable + Poncho Irma Mora VARNISH DIPPER Unavailable Lamont Marcus MD Unavailable [phone] Poncho Irma Mora VARNISH DIPPER Unavailable +[phone] Alber Estrada-C Unavailable [phone] Lamont Marcus MD Unavailable [phone] Esau Monet MD Unavailable [phone] Ahmet Almaguer MD Unavailable +[phone] Liv Olson-C Unavailable Alber Estrada-C Primary Care Provider Eda Duarte MD Unavailable +[phone] Karoline Su PLANT MAINTENANCE MANAGER Unavailable +[phone] Navid Regalado MD Unavailable [phone] Cony Cameron RN Unavailable [phone] Chip Crane VARNISH DIPPER Unavailable [phone] Caitlin Tarango [facility] Unavailable [phone] Encounter Details Date Type Department Care Team (Late st Contact Info) Description 01/13/2021 MyC Medical Advice [facility] Sleep [address] [address] Celine Casarez, [facility] [address] Social History Tobacco Use Types Packs/Day Years [...] Family Three times a week 12/07/2018 Attends Baptism Services Never 12/07 Active Member of Clubs or Organizations No 12/07/2018 Attends Club or Organization Meetings Never 12/07/2018 Marital Status Patient declined 12/07/2018 AUDIT-C Answer Date Recorded Frequency of Alcohol Consumption Never 12/07/2018 Average Number of Drinks Patient declined 2018 Frequency of Binge Drinking Never 11/17 PHQ-2 Answer Date Recorded PHQ-2 Score 0 12/03/2020 [facility] - [...] Sex Assigned at Female 09/04/2021 9:00 PM SURVEY ENGINEER Legal Sex Female 4:25 AM SURVEY ENGINEER Gender Identity Female 09/04/2021 9:00 PM SURVEY ENGINEER Sexual Orientation Straight 09/04/2021 9: 00 PM SURVEY ENGINEER documented as of this encounter Plan of Treatment Upcoming Encounters Date Type Department Care Team (Late st Contact Info) Description 07/04/2024 2:30 PM SURVEY ENGINEER Office Visit [facility] [address] [place] [address] Alber Estrada PA-C [address] [place] [address] 07/05/2024 2:00 PM SURVEY ENGINEER Office Visit [facility] Women[facility] [place] [address] [place] [address] Caitlin Tarango, CNM [address] [place] [address] documented as of this encounter Visit Diagnoses Not on filedocumented in this encounter Additional Health Concerns Infection Onset Date Last Indicated Resolved Time Rule Out COVID-19 08/23/2021 08/23/2021 08/23/2021 9:17 PM SURVEY ENGINEER Rule Out COVID-19 04/21/2022 04/21/2022 04/21/2022 8:57 PM CDT Rule Out COVID-19 06/16/2022 06/16/2022 06/16/2022 10:51 PM SURVEY ENGINEER Influenza 06/16/2022 06/16/2022 06/23/2022 11:4 0 PM SURVEY ENGINEER Rule Out COVID-19 03/02/2023 03/02/2023 03/02/2023 7:24 PM CDT Rule Out COVID-19 04/28/2023 04/28/2023 04/28/2023 1:13 AM CDT Rule Out COVID-19 05/04/2023 05/04/2023 05/04/2023 8:26 PM CDT Rule Out COVID-19 05/19/2023 05/19/2023 05/20/2023 12:58 AM CDT Rule Out COVID-19 06/17/2023 06/17/2023 06/17/2023 2:16 AM SURVEY ENGINEER Rule Out C-difficile 07/21/2023 07/21/2023 024 8:45 AM SURVEY ENGINEER Rule Out COVID-19 11/07/2023 11/07/2023 11/07/2023 10:43 PM CDT Assessment Noted Time PHQ-9 Depression Total Score: 13 020 10:44 AM SURVEY ENGINEER documented as of this encounter Care Teams Logistics Team Leader Relationship Specialty Start Date End Date Khalida Beyer MD [address] [place] [address] PCP - General Psychiatry 05/28/20 08/22/21 No Ref-Primary, Physician PCP - General 08/23/21 06/18/22 Alber Estrada PA-C [address] [place] [id number] PCP - General Family Medicine 06/19/22 07/15/22 No Ref-Primary, Physician PCP - General 08/27/22 11/02/23 Alber Estrada PA-C [address] [place] [id number] PCP - General Family Medicine 11/03/23 Queta Fritz MD NO LONGER AT [facility]/UNABLE TO LOCATE 07/05/23 Assigned PCP 03/04/14 04/12/21 Tc Jama MD [facility] 655924 Pediatric Surgery 02/14/20 Tc Jama MD 2450 [facility] 505 [place] [address] Assigned Pediatric Specialist Provider 05/10/20 09/06/21 Rosario Noe APRN CNM [facility] 2635 [facility] 160 [place], [place] [id number] Assigned OBGYN Provider 07/21/20 2 Eda Duarte MD 420 [facility] 394 [place], [place] [id number] Assigned Surgical Provider 10/02/20 06/05/22 Mike Sherwood MD [address] [place] [address] [id number] Assigned Sleep Provider 01/31/21 3 Navid Paige MD [address] [place] [address] [id number] Assigned Musculoskeletal Provider 03/16/21 09/11/22 Norma Ruggiero APRN IDENTIFICATION AND RECORDS COMMANDER [address] [address] Assigned PCP 04/13/21 05/24/21 Queta Fritz MD NO LONGER AT [facility]/UNABLE TO LOCATE 07/05/23 Assigned PCP 05/25/21 07/26/21 Norma Ruggiero APRN IDENTIFICATION AND RECORDS COMMANDER [address] [id number] Assigned PCP 07/27/21 09/06/21 Alber Estrada PA-C [address] [place], [place] [address] Assigned PCP 09/07/21 Maxine Patel CNM [address] [place], [place] [address] Assigned OBGYN Provider 07/25/2207/02 Navid Regalado MD [address] [place] [address] [id number] Dermatology 04/30/23 Willow Mcnulty APRN IDENTIFICATION AND RECORDS COMMANDER [address] [place] [address] Nurse Practitioner Nurse Practitioner Primary Care 06/02/23 Lashae Holt APRN IDENTIFICATION AND RECORDS COMMANDER [address] [facility] 101 [place] [address] Nurse Practitioner Pain Medicine 06/02/23 Irma Isaac, [facility] Clinic Opener Verifier [employer] Primary Care - CC 06/08/23 Lamont Marcus MD [address] [address] slide attendant 06/25/23 Irma Isaac, [facility] Lead Opener Verifier [employer] Primary Care - CC 06/29/2306/19 Alber Estrada PA-C [address] [place] [place] [address] Assigned Pain Medication Provider 07/03/23 08/11/23 Lamont Marcus MD [address] [address] Assigned OBGYN Provider 07/03/2307/16 Esau Monet MD [address], [facility] 100 [place] [address] Assigned OBGYN Provider 07/17/23 Ahmet Almaguer MD [address] [place] [address] Assigned Surgical Provider 08/20/23 11/08/23 Liv Olson PA-C [address] [facility] [address] [place] [address] Physician Pattern Mechanic Urology 09/23/23 Eda Duarte MD 420 [facility] 394 [place] [address] Assigned Surgical Provider 11/09/23 12/08/23 Karoline Su, [facility] [address] [place], [place] [phone] Assigned Behavioral Health Provider 11/09/23 Navid Regalado MD [address] [place] [address] Assigned Surgical Provider 12/09/23 Cony Cameron RN RN Clinical Product Navigator Primary Care - CC 04/10/24 04/10/24 Chip Crane LSW Clinic Opener Verifier [employer] Primary Care - CC 04/10/24 Caitlin Tarango CNM [address] [facility] 700 [place], [place] [address] Digital Strategy Director slide attendant 05/31/24 documented as of this encounter
--- OUTSIDE RECORDS SUMMARY | 2024-06-14 09:56 | XMS_ITS | Encounter Summary ---
Author Organization [place] Address Replaced by [facility] [place] [address] Care Team Providers Care Structural Draftsman Name Role Phone Queta Fritz MD Primary Care Provider Unavailable Queta Fritz MD Primary Care Provider Unavailable Maryann Connorsnicki DOG OR ANIMAL SITTER Unavailable [phone] Queta Fritz MD Unavailable Unava ilable Queta Fritz MD Unavailable Unava ilable Tc Jama MD Unavailable [phone] Tc Jama MD Unavailable [phone] Khalida Beyre MD Primary Care Provider Rosario Noe APRN Unavailable Eda Duarte MD Unavailable [phone] Mike Sherwood MD Unavailable [phone] Navid Paige MD Unavailable [phone] Norma Ruggiero APRN RIPSAW OPERATOR Unavailable [phone] Queta Fritz MD Unavailable Unava ilable Norma Ruggiero APRN RIPSAW OPERATOR Unavailable + [phone] No Ref-Primary, Physician Primary Care Provider Alber Estrada PA-C Unavailable + Alber EstradaC Primary Care Provider Maxine Patel CNM Unavailable [phone] No Ref-Primary, Physician Primary Care Provider Navid Regalado MD Unavailable [phone] Willow Mcnulty TERRY RIPSAW OPERATOR Unavailable [phone] Jonathon Lashae Whittaker EVP SALES RIPSAW OPERATOR Unavailable + Irma Isaac BISQUE PLACER Unavailable [phone] Lamont Marcus MD Unavailable [phone] Irma Isaac BISQUE PLACER Unavailable +[phone] Alber Estrada PA-C Unavailable + Lamont Marcus MD Unavailable [phone] Esau Monet MD Unavailable [phone] Ahmet Almaguer MD Unavailable [phone] Liv OlsonC Unavailable Alber EstradaC Primary Care Provider Eda Duarte MD Unavailable [phone] Karolnie Su GLASSIE Unavailable [phone] Navid Regalado MD Unavailable [phone] Cony Cameron RN Unavailable [phone] Chip Crane BISQUE PLACER Unavailable [phone] Caitlin Tarango CNM Unavailable [phone] Reason for Visit * Reason Onset Date Comments MH/CD Inpatient 12/17/2015 Encounter Details Date Type Department Care Team ([facility] st Contact Info) Description 12/17/[address] [facility] Behavioral Health Intake [address] [place] [address] Generic, Behavioral Intake, MH/CD Inpatient Social History Tobacco Use Types Packs/Day Years Used Date Smoking Tobacco: Never Smokeless Tobacco: Never Comments:no smokers in house hold Alcohol Use Standard Drinks/Week Comments No 0 (1 standard drink = 0.6 oz pur e alcohol) Comments No Sex and Gender Information Value Date Recorded Sex Assigned at Female 09/04/2021 9:00 PM ADJUNCT PHLEBOTOMY INSTRUCTOR Legal Sex Female 4:25 AM ADJUNCT PHLEBOTOMY INSTRUCTOR Gender Identity Female 09/04/2021 9:00 PM ADJUNCT PHLEBOTOMY INSTRUCTOR Sexual Orientation Straight 09/04/2021 9: 00 PM ADJUNCT PHLEBOTOMY INSTRUCTOR documented as of this encounter Miscellaneous Notes * Telephone Encounter - Jeferson Mosqueda - 12/17/2015 3:42 PM CDT Rochelle [facility], gives info. B: pt being brought [...] er. Pt recently had fromal dx of autism and referred to [facility]. A: dx autism. Pt no longer has services with [facility] therapist but wa helping today. R: [facility] to be [facility] documented in this encounter Plan of Treatment Upcoming Encounters Date Type Department Care Team (Late st Contact Info) Description 07/04/2024 2:30 PM ADJUNCT PHLEBOTOMY INSTRUCTOR Office Visit [facility] [address] [place] [address] Alber Estrada PA-C [address] [place] [address] 07/05/2024 2:00 PM ADJUNCT PHLEBOTOMY INSTRUCTOR Office Visit [facility] Women's [address] [place] [address] Caitlin Tarango, [place] [address] [address] documented as of this encounter Visit Diagnoses Not on filedocumented in this encounter Additional Health Concerns Infection Onset Date Last Indicated Resolved Time Rule Out COVID-19 06/07/2020 06/07/2020 06/08/2020 7:34 PM ADJUNCT PHLEBOTOMY INSTRUCTOR Rule Out COVID-19 08/23/2021 08/23/2021 08/23/2021 9:17 PM ADJUNCT PHLEBOTOMY INSTRUCTOR Rule Out COVID-19 04/21/2022 04/21/2022 04/21/2022 8:57 PM CDT Rule Out COVID-19 06/16/2022 06/16/2022 06/16/2022 10:51 PM ADJUNCT PHLEBOTOMY INSTRUCTOR Influenza 06/16/2022 06/16/2022 06/23/2022 11:4 0 PM ADJUNCT PHLEBOTOMY INSTRUCTOR Rule Out COVID-19 03/02/2023 03/02/2023 03/02/2023 7:24 PM CDT Rule Out COVID-19 04/28/2023 04/28/2023 04/28/2023 1:13 AM CDT Rule Out COVID-19 05/04/2023 05/04/2023 05/04/2023 8:26 PM CDT Rule Out COVID-19 05/19/2023 05/19/2023 05/20/2023 12:58 AM CDT Rule Out COVID-19 06/17/2023 06/17/2023 06/17/2023 2:16 AM ADJUNCT PHLEBOTOMY INSTRUCTOR Rule Out C-difficile 07/21/2023 07/21/2023 024 8:45 AM ADJUNCT PHLEBOTOMY INSTRUCTOR Rule Out COVID-19 11/07/2023 11/07/2023 11/07/2023 10:43 PM CDT documented as of this encounter Care Teams Structural Draftsman Relationship Specialty Start Date End Date Queta Fritz MD PCP - General Pediatrics 11/15/14 12/18/15 Queta Fritz MD PCP - General Pediatrics 12/19/15 05/27/20 Queta Fritz MD NO LONGER AT [facility]/UNABLE TO LOCATE 07/05/23 PCP - Assigned PCP 03/04/14 09/20/18 Khalida Beyer MD [address] [place] [address] PCP - General Psychiatry 05/28/20 08/22/21 No Ref-Primary, Physician PCP - General 08/23/21 06/18/22 Alber Estrada PA-C [address] [place] [id number] PCP - General Family Medicine 06/19/22 07/15/22 No Ref-Primary, Physician PCP - General 08/27/22 11/02/23 Alber Estrada PA-C [address] [address] [place] [id number] PCP - General Family Medicine 11/03/23 Joseline Connors, MARGUER[employer] Community Association Manager 11/05/16 11/23/16 Queta Fritz MD NO LONGER AT [facility]/UNABLE TO LOCATE 07/05/23 Assigned PCP 03/04/14 04/12/21 Tc Jama MD [address] [place] [address] Pediatric Surgery 02/14/20 Tc Jama MD [address] [place] [address] Assigned Pediatric Specialist Provider 05/10/20 09/06/21 Rosario Noe, TERRY CN [facility] 2635 [facility] 160 [place], [place] [phone] Assigned OBGYN Provider 07/21/20 2 Eda Duarte MD [address] [facility] [address] [place], [place] 36[address]75 Assigned Surgical Provider 10/02/20 06/05/22 Mike Sherwood MD [address] [place], [place] [id number] Assigned Sleep Provider 01/31/21 3 Navid Paige MD [address] [place], [place] [address]35 Assigned Musculoskeletal Provider 03/16/21 09/11/22 Nroma Ruggiero APRN RIPSAW OPERATOR [facility] [facility] [address] [place], [place] [address] Assigned PCP 04/13/21 05/24/21 Queta Fritz MD NO LONGER AT [facility]/UNABLE TO LOCATE 07/05/23 Assigned PCP 05/25/21 07/26/21 Norma Ruggiero APRN RIPSAW OPERATOR [address] [place] [address] Assigned PCP 07/27/21 09/06/21 Alber Estrada PA-C [address] [place] [place] [address] Assigned PCP 09/07/21 Maxine Patel CNM [address] [place] [address] Assigned OBGYN Provider 07/25/2207/02 Navid Regalado MD [address]09 [place] [address] Dermatology 04/30/23 Willow Mcnulty APRN RIPSAW OPERATOR [address] [address] Nurse Practitioner Nurse Practitioner Primary Care 06/02/23 Lashae Holt APRN RIPSAW OPERATOR [address] [place] [address] Nurse Practitioner Pain Medicine 06/02/23 Irma Isaac, [facility] Clinic Fishing Rod Marker Primary Care - CC 06/08/23 Lamont Marcus MD [address] [address] rn charge 06/25/23 Irma Isaac LSW Lead Fishing Rod Marker Primary Care - CC 06/29/2306/19 Alber Estrada PA-C [address] [place] [place] [address] Assigned Pain Medication Provider 07/03/23 08/11/23 Lamont Marcus MD [address] [address] Assigned OBGYN Provider 07/03/2307/16 Esau Monet MD [address], [facility] 100 [place] [address] Assigned OBGYN Provider 07/17/23 Ahmet Almaguer MD [address] [place] [address] Assigned Surgical Provider 08/20/23 11/08/23 Liv Olson PA-C [address] [facility] 377 [place] [address] Physician Bit Sharpener Urology 09/23/23 Eda Duarte MD [address] [facility] [address] [place], [place] [address] Assigned Surgical Provider 11/09/23 12/08/23 Karoline Su [facility] [address] [place] [address] Assigned Behavioral Health Provider 11/09/23 Navid Regalado MD 9 [place], [place] [address] Assigned Surgical Provider 12/09/23 Cony Cameron RN RN Clinical Product Navigator Primary Care - CC 04/10/24 04/10/24 Chip Crane LSW Clinic Fishing Rod Marker Primary Care - CC 04/10/24 Caitlin Tarango CNM [address] [address] Foot And Ankle Surgeon rn charge 05/31/24 documented as of this encounter
--- OUTSIDE RECORDS SUMMARY | 2024-06-14 09:56 | XMS_ITS | Encounter Summary ---
Author Organization [place] Address [facility] [place] [address] Care Team Providers Care Teller Vault Name Role Phone Queta Fritz MD Primary Care Provider Unavailable Queta Fritz MD Unavailable Unava ilable Tc Jama MD Unavailable [phone] Tc Jama MD Unavailable [phone] Khalida Beyer MD Primary Care Provider [phone] Rosario Noe APRN CNM Unavailable Eda Duarte MD Unavailable [phone] Mike Sherwood MD Unavailable [phone] Navid Paige MD Unavailable [phone] Norma Ruggiero APRN REJECT OPENER Unavailable [phone] Queta Fritz MD Unavailable Unava ilable Norma Ruggiero APRN REJECT OPENER Unavailable [phone] No Ref-Primary, Physician Primary Care Provider Alber Estrada PA-C Unavailable + [phone] Alber Estrada PA-C Primary Care Provider Maxine Patel CNM Unavailable [phone] No Ref-Primary, Physician Primary Care Provider Navid Regalado MD Unavailable Willow Mcnulty TERRY REJECT OPENER Unavailable [phone] Lashae Holt WAREHOUSE ASSEMBLY WORKER REJECT OPENER Unavailable + Irma Isaac INFORMATION TECHNOLOGY AUDIT MANAGER Unavailable Lamont Marcus MD Unavailable +[phone] [phone] Irma Mora INFORMATION TECHNOLOGY AUDIT MANAGER Unavailable [phone] Alber Estrada-C Unavailable [phone] Lamont Marcus MD Unavailable [phone] Esau Monet MD Unavailable [phone] Ahmet Almaguer MD Unavailable [phone] Liv Olson-C Unavailable Alber Estrada-C Primary Care Provider Eda Duarte MD Unavailable [phone] Karoline Su ROLL HAND Unavailable [phone] Navid Regalado MD Unavailable [phone] Cony Cameron RN Unavailable [phone] Chip Crane INFORMATION TECHNOLOGY AUDIT MANAGER Unavailable [phone] Caitlin Tarango CN Unavailable [phone] Reason for Visit * Reason Onset Date Comments MH/CD Inpatient 03/15/2020 Encounter Details Date Type Department Care Team (Late st Contact Info) Description 03/15/2020 Telephone [facility] Intake [address] [place] [address] Generic, Behavioral Intake, MH/CD Inpatient [...] Family Three times a week 12/07/2018 Attends Jehovah'S Witness Services Never 12/07 Active Member of Clubs or Organizations No 12/07/2018 Attends Club or Organization Meetings Never 12/07/2018 Marital Status Patient declined 12/07/2018 AUDIT-C Answer Date Recorded Frequency of Alcohol Consumption Never 12/07/2018 Average Number of Drinks Patient declined 2018 Frequency of Binge Drinking Never 11/17 PHQ-2 Answer Date Recorded PHQ-2 Score 0 11/13/2019 [facility] [place] of Occupat ional Health - Occupational Stress [...] Sex Assigned at Female 09/04/2021 9:00 PM SPA DIRECTOR Legal Sex Female 4:25 AM SPA DIRECTOR Gender Identity Female 09/04/2021 9:00 PM SPA DIRECTOR Sexual Orientation Straight 09/04/2021 9: 00 PM SPA DIRECTOR COVID-19 Exposure Response Date Recorded In the last month, have you been in contact with someone who was confirmed or suspected to have Coronavirus / COVID-19? No / Unsure 03/15/2020 1:19 AM CDT documented as of this encounter Miscellaneous Notes * Telephone Encounter - Mahi Napoles Bakari - 03/15/2020 9:31 AM CDT R: PC can review with pt consent Parents decline review for 6A and [place] care TC area only No appropriate placement available at this time. Pt remains on wait list at this time Paged provider @ 11:26 am Paged provider @ 12:34 pm Paged alternative provider Milena/Fabian Notified unit @ 12:58 pm Disposition @ 1:03 pm documented in this encounter Plan of Treatment Upcoming Encounters Date Type Department Care Team (Late st Contact Info) Description 07/04/2024 2:30 PM SPA DIRECTOR Office Visit [facility] [address] [place] [phone] Alber Estrada PA-C [address] [place] [address] 07/05/2024 2:00 PM SPA DIRECTOR Office Visit [facility] [address] [facility] [address] [place] [phone] Caitlin Tarango, [facility] [address] [facility] [address] [place] [address] documented as of this encounter Visit Diagnoses Not on filedocumented in this encounter Additional Health Concerns Infection Onset Date Last Indicated Resolved Time Rule Out COVID-19 06/07/2020 06/07/2020 06/08/2020 7:34 PM SPA DIRECTOR Rule Out COVID-19 08/23/2021 08/23/2021 08/23/2021 9:17 PM SPA DIRECTOR Rule Out COVID-19 04/21/2022 04/21/2022 04/21/2022 8:57 PM CDT Rule Out COVID-19 06/16/2022 06/16/2022 06/16/2022 10:51 PM SPA DIRECTOR Influenza 06/16/2022 06/16/2022 06/23/2022 11:4 0 PM SPA DIRECTOR Rule Out COVID-19 03/02/2023 03/02/2023 03/02/2023 7:24 PM CDT Rule Out COVID-19 04/28/2023 04/28/2023 04/28/2023 1:13 AM CDT Rule Out COVID-19 05/04/2023 05/04/2023 05/04/2023 8:26 PM CDT Rule Out COVID-19 05/19/2023 05/19/2023 05/20/2023 12:58 AM CDT Rule Out COVID-19 06/17/2023 06/17/2023 06/17/2023 2:16 AM SPA DIRECTOR Rule Out C-difficile 07/21/2023 07/21/2023 024 8:45 AM SPA DIRECTOR Rule Out COVID-19 11/07/2023 11/07/2023 11/07/2023 10:43 PM CDT Assessment Noted Time PHQ-9 Depression Total Score: 7 11/13/19 20 11:26 AM CDT documented as of this encounter Care Teams Teller Vault Relationship Specialty Start Date End Date Queta Fritz MD PCP - General Pediatrics 12/19/15 05/27/20 Khalida Beyer MD [address] [address] PCP - General Psychiatry 05/28/20 08/22/21 No Ref-Primary, Physician PCP - General 08/23/21 06/18/22 Alber Estrada PA-C [address] [address] PCP - General Family Medicine 06/19/22 07/15/22 No Ref-Primary, Physician PCP - General 08/27/22 11/02/23 Alber Estrada PA-C [address] [address] PCP - General Family Medicine 11/03/23 Queta Fritz MD NO LONGER AT [facility]/UNABLE TO LOCATE 07/05/23 Assigned PCP 03/04/14 04/12/21 Tc Jama MD [address] [place] [address] Pediatric Surgery 02/14/20 Tc Jama MD 2450 [facility] 505 [place] [address] Assigned Pediatric Specialist Provider 05/10/20 09/06/21 Rosario Noe APRN [facility] [address] [place] [address] Assigned OBGYN Provider 07/21/20 2 Eda Duarte MD [address] [place] [address] [address] [place], [place] [address] Assigned Surgical Provider 10/02/20 06/05/22 Mike Sherwood MD [address] [place] [id number] Assigned Sleep Provider 01/31/21 3 Navid Paige MD [address] [place] [address] Assigned Musculoskeletal Provider 03/16/21 09/11/22 Norma Ruggiero APRN REJECT OPENER [address] [facility] 505 [place] [address] Assigned PCP 04/13/21 05/24/21 Queta Fritz MD NO LONGER AT [facility]/UNABLE TO LOCATE 07/05/23 Assigned PCP 05/25/21 07/26/21 Norma Ruggiero APRN REJECT OPENER [address] [place] [address] Assigned PCP 07/27/21 09/06/21 Alber Estrada PA-C [address] [facility] [place] [place] [address] Assigned PCP 09/07/21 Maxine Patel CNM [address] [place] [address] Assigned OBGYN Provider 07/25/2207/02 Navid Regalado MD [address] [place] [address] Dermatology 04/30/23 Willow Mcnulty APRN REJECT OPENER [address] [address] Nurse Practitioner Nurse Practitioner Primary Care 06/02/23 Lashae Holt APRN REJECT OPENER [address] [address] Nurse Practitioner Pain Medicine 06/02/23 Irma Isaac, INFORMATION TECHNOLOGY AUDIT MANAGER Clinic Cattle Broker Primary Care - CC 06/08/23 Lamont Marcus MD [address] [address] room worker 06/25/23 Irma Isaac, INFORMATION TECHNOLOGY AUDIT MANAGER Lead Cattle Broker Primary Care - CC 06/29/2306/19 Alber Estrada PA-C [address] [address] [place] [place] [address] Assigned Pain Medication Provider 07/03/23 08/11/23 Lamont Marcus MD [address] [place] [address] Assigned OBGYN Provider 07/03/2307/16 Esau Monet MD [address], [facility] 100 [place], [place] [address] Assigned OBGYN Provider 07/17/23 Ahmet Almaguer MD [address] [place], [place] [address] Assigned Surgical Provider 08/20/23 11/08/23 Liv Olson PA-C [address] [place], [place] [address] Physician Scrap Wheeler Urology 09/23/23 Eda Duarte MD [address] [place] [address] 394 [place] [address] Assigned Surgical Provider 11/09/23 12/08/23 Karoline Su, [facility] [address] [place] [address] Assigned Behavioral Health Provider 11/09/23 Navid Regalado MD 909 [place] [address] Assigned Surgical Provider 12/09/23 Cony Cameron RN RN Clinical Product Navigator Primary Care - CC 04/10/24 04/10/24 Chip Crane LSW Clinic Cattle Broker Primary Care - CC 04/10/24 Caitlin Tarango CNM [address] [place] [address] Software Implementation Project Manager room worker 05/31/24 documented as of this encounter
--- OUTSIDE RECORDS SUMMARY | 2024-06-14 09:56 | XMS_ITS | Encounter Summary ---
Author Organization [place] Address [facility] [place] [address] Care Team Providers Care Advertising Copy Writer Name Role Phone Queta Fritz MD Primary Care Provider Unavailable Queta Fritz MD Unavailable Unava ilable Tc Jama MD Unavailable [phone] Tc Jama MD Unavailable [phone] Khalida Beyer MD Primary Care Provider [phone] Rosario Noe APRN CNM Unavailable Eda Duarte MD Unavailable [phone] Mike Sherwood MD Unavailable [phone] Navid Paige MD Unavailable [phone] Norma Ruggiero APRN CAR WASH ATTENDANT AUTOMATIC Unavailable [phone] Queta Fritz MD Unavailable Unava ilable Norma Ruggiero APRN CAR WASH ATTENDANT AUTOMATIC Unavailable [phone] No Ref-Primary, Physician Primary Care Provider Alber Estrada PA-C Unavailable + [phone] Alber Estrada PA-C Primary Care Provider Maxine Patel CNM Unavailable [phone] No Ref-Primary, Physician Primary Care Provider Navid Regalado MD Unavailable [phone] Willow Mcnulty TERRY CAR WASH ATTENDANT AUTOMATIC Unavailable Lashae Holt NECKTIE STITCHER CAR WASH ATTENDANT AUTOMATIC Unavailable + Irma Isaac STUDENT AMBASSADOR Unavailable Lamont Marcus MD Unavailable [phone] Irma Isaac STUDENT AMBASSADOR Unavailable Alber Estrada-C Unavailable [phone] Lamont Marcus MD Unavailable [phone] Esau Monet MD Unavailable [phone] Ahmet Almaguer MD Unavailable Liv Olson-C Unavailable [phone] Alber Estrada-C Primary Care Provider Eda Duarte MD Unavailable Karoline Su SENIOR GAME DESIGNER Unavailable Navid Regalado MD Unavailable Cony Cameron RN Unavailable [phone] Chip Crane STUDENT AMBASSADOR Unavailable [phone] Caitlin Tarango CN Unavailable Encounter Details Date Type Department Care Team (Late st Contact Info) Description 11/22/2019 Telephone [facility] [address] [place] [address] Tc Jama MD [address] [facility] 505 [place] [address] Social History Tobacco Use Types Packs/Day Years [...] Family Three times a week 12/07/2018 Attends Mosque Services Never 12/07 Active Member of Clubs or Organizations No 12/07/2018 Attends Club or Organization Meetings Never 12/07/2018 Marital Status Patient declined 12/07/2018 AUDIT-C Answer Date Recorded Frequency of Alcohol Consumption Never 12/07/2018 Average Number of Drinks Patient declined 2018 Frequency of Binge Drinking Never 11/17 PHQ-2 Answer Date Recorded PHQ-2 Score 0 11/13/2019 [facility] [place] of Occupat ional Health - Occupational Stress [...] Sex Assigned at Female 09/04/2021 9:00 PM LOAN CLERK Legal Sex Female 4:25 AM LOAN CLERK Gender Identity Female 09/04/2021 9:00 PM LOAN CLERK Sexual Orientation Straight 09/04/2021 9: 00 PM LOAN CLERK COVID-19 Exposure Response Date Recorded In the last month, have you been in contact with someone who was confirmed or suspected to have Coronavirus / COVID-19? Unable to assess 11/25/2019 9:10 AM CDT documented as of this encounter Miscellaneous Notes * Telephone Encounter - Norma Ruggiero APRN CAR WASH ATTENDANT AUTOMATIC - 11/23/2019 9:58 AM CDT I returned call and answered questions of [facility]. * Telephone Encounter - Janet Gillespie - 11/22/2019 4:03 PM CDT [facility] Phone Message May a detailed message be left on voicemail: yes Reason for Call: Other: Patient Health Hydraulic Modeling Engineer from [facility] is calling requesting to have Dr. Jama's nurse call her back to discuss appointment today. Mahi was suggested by PCP to takealternating tylenol and ibuprofen to help with pain and would like to know if they should continue that or what is advised. Action Taken: Other: P PEDS SURGERY Travel Screening: Not Applicable documented in this encounter Plan of Treatment Upcoming Encounters Date Type Department Care Team (Late st Contact Info) Description 07/04/2024 2:30 PM LOAN CLERK Office Visit [facility] [address] [place] [phone] Alber Estrada PA-C [address] [place] [address] 07/05/2024 2:00 PM LOAN CLERK Office Visit [facility]'s [address] [place] [address] Caitlin Tarango, [facility] [address] [place] [address] documented as of this encounter Visit Diagnoses Not on filedocumented in this encounter Additional Health Concerns Infection Onset Date Last Indicated Resolved Time Rule Out COVID-19 06/07/2020 06/07/2020 06/08/2020 7:34 PM LOAN CLERK Rule Out COVID-19 08/23/2021 08/23/2021 08/23/2021 9:17 PM LOAN CLERK Rule Out COVID-19 04/21/2022 04/21/2022 04/21/2022 8:57 PM CDT Rule Out COVID-19 06/16/2022 06/16/2022 06/16/2022 10:51 PM LOAN CLERK Influenza 06/16/2022 06/16/2022 06/23/2022 11:4 0 PM LOAN CLERK Rule Out COVID-19 03/02/2023 03/02/2023 03/02/2023 7:24 PM CDT Rule Out COVID-19 04/28/2023 04/28/2023 04/28/2023 1:13 AM CDT Rule Out COVID-19 05/04/2023 05/04/2023 05/04/2023 8:26 PM CDT Rule Out COVID-19 05/19/2023 05/19/2023 05/20/2023 12:58 AM CDT Rule Out COVID-19 06/17/2023 06/17/2023 06/17/2023 2:16 AM LOAN CLERK Rule Out C-difficile 07/21/2023 07/21/2023 024 8:45 AM LOAN CLERK Rule Out COVID-19 11/07/2023 11/07/2023 11/07/2023 10:43 PM CDT Assessment Noted Time PHQ-9 Depression Total Score: 7 11/13/19 11:26 AM CDT documented as of this encounter Care Teams Advertising Copy Writer Relationship Specialty Start Date End Date Queta Fritz MD PCP - General Pediatrics 12/19/15 05/27/20 Khalida Beyer MD [address] [place] [address] PCP - General Psychiatry 05/28/20 08/22/21 No Ref-Primary, Physician PCP - General 08/23/21 06/18/22 Alber Estrada PA-C [address] [facility] [place] [place] [id number] PCP - General Family Medicine 06/19/22 07/15/22 No Ref-Primary, Physician PCP - General 08/27/22 11/02/23 Alber Estrada PA-C [address] [place] [address] PCP - General Family Medicine 11/03/23 Queta Fritz MD NO LONGER AT [facility]/UNABLE TO LOCATE 07/05/23 Assigned PCP 03/04/14 04/12/21 Tc Jama MD [address] [place] [address] Pediatric Surgery 02/14/20 [place] [address] [place] [address] 505 [place] [address] Assigned Pediatric Specialist Provider 05/10/20 09/06/21 Rosario Noe APRN CN [facility] 2635 [facility] 160 [place], [place] [id number] Assigned OBGYN Provider 07/21/20 2 Eda Duarte MD [address] [place] [address] [address] [place], [place] [address] Assigned Surgical Provider 10/02/20 06/05/22 Mike Sherwood MD [address] [place] [address] Assigned Sleep Provider 01/31/21 Navid Posada MD 909 [place] [address] Assigned Musculoskeletal Provider 03/16/21 09/11/22 Norma Ruggiero APRN CAR WASH ATTENDANT AUTOMATIC [address] [address] Assigned PCP 04/13/21 05/24/21 Queta Fritz MD NO LONGER AT [facility]/UNABLE TO LOCATE 07/05/23 Assigned PCP 05/25/21 07/26/21 Norma Ruggiero APRN CAR WASH ATTENDANT AUTOMATIC [address] [address] Assigned PCP 07/27/21 09/06/21 Alber Estrada PA-C [address] [place] [address] Assigned PCP 09/07/21 Maxine Patel CNM [address] [place] [address] Assigned OBGYN Provider 07/25/2207/02 Navid Regalado MD 9 [place] [address] Dermatology 04/30/23 Willow Mcnulty APRN CAR WASH ATTENDANT AUTOMATIC [address] [place] [address] Nurse Practitioner Nurse Practitioner Primary Care 06/02/23 Lashae Holt APRN CAR WASH ATTENDANT AUTOMATIC [address] [place], [place] [address], [place] [address] Nurse Practitioner Pain Medicine 06/02/23 Irma Isaac, STUDENT AMBASSADOR Clinic Hydraulic Modeling Engineer Primary Care - CC 06/08/23 Lamont Marcus MD [address] [facility] 100 [place] [address] special officer 06/25/23 Irma Isaac, STUDENT AMBASSADOR Lead Hydraulic Modeling Engineer Primary Care - CC 06/29/2306/19 Alber Estrada PA-C [address] [place] [address] Assigned Pain Medication Provider 07/03/23 08/11/23 Lamont Marcus MD [address] [facility] 100 [place] [address] Assigned OBGYN Provider 07/03/2307/16 Esau Monet MD [address] [facility] 100 [place] [address] Assigned OBGYN Provider 07/17/23 Ahmet Almaguer MD [address] [place] [address] Assigned Surgical Provider 08/20/23 11/08/23 Liv Olson PA-C [address] [facility] 377 [place] [address] Physician Undergraduate Intern Urology 09/23/23 Eda Duarte MD [address] [facility] [address] [place], [place] [address] Assigned Surgical Provider 11/09/23 12/08/23 Karoline Su, [facility] [address] [place], [place] [id number] Assigned Behavioral Health Provider 11/09/23 Navid Regalado MD 909 [place], [place] [address] Assigned Surgical Provider 12/09/23 Cony Camerno RN RN Clinical Product Navigator Primary Care - CC 04/10/24 04/10/24 Chip Crane LSW Clinic Hydraulic Modeling Engineer Primary Care - CC 04/10/24 Caitlin Tarango CNM [address] [facility] 700 [place] [address] Instructor Physical special officer 05/31/24 documented as of this encounter
--- OUTSIDE RECORDS SUMMARY | 2024-06-14 09:56 | XMS_ITS | Encounter Summary ---
Author Organization [place] Address [facility] [place] [address] Care Team Providers Care Police Radio Dispatcher Name Role Phone Queta Fritz MD Primary Care Provider Unavailable Queta Fritz MD Primary Care Provider Unavailable Maryann Connorsnciki OUTREACH EDUCATOR Unavailable [phone] Queta Fritz MD Unavailable Unava ilable Queta Fritz MD Unavailable Unava ilable Tc Jama MD Unavailable [phone] Tc Jama MD Unavailable [phone] Khalida Beyer MD Primary Care Provider [phone] Rosario Noe APRN Unavailable Eda Duarte MD Unavailable [phone] Mike Sherwood MD Unavailable [phone] Navid Paige MD Unavailable [phone] Norma Ruggiero APRN PARKING ENFORCER Unavailable [phone] Queta Fritz MD Unavailable Unava ilable Norma Ruggiero APRN PARKING ENFORCER Unavailable + [phone] No Ref-Primary, Physician Primary Care Provider Alber Estrada PA-C Unavailable +[phone]- Alber Estrada PA-C Primary Care Provider Maxine Patel CNM Unavailable [phone] No Ref-Primary, Physician Primary Care Provider Navid Regalado MD Unavailable [phone] Willow Mcnulty TERRY PARKING ENFORCER Unavailable +[phone] EduarLashae pringle CONSULTANT PARKING ENFORCER Unavailable + Irma Isaac HOT BOX OPERATOR Unavailable [phone] Lamont Marcus MD Unavailable [phone] Irma Isaac HOT BOX OPERATOR Unavailable +[phone] Alber Estrada PA-C Unavailable +1- Lamont Marcus MD Unavailable [phone] Esau Monet MD Unavailable [phone] Ahmet Almaguer MD Unavailable +[phone] Liv Olson PA-C Unavailable Alber Estrada PA-C Primary Care Provider Eda Duarte MD Unavailable +[phone] [facility] Unavailable +[phone] Navid Regalado MD Unavailable [phone] Cony Cameron RN Unavailable [phone] Chip Crane HOT BOX OPERATOR Unavailable [phone] Caitlin Tarango CNM Unavailable [phone] Encounter Details Date Type Department Care Team (Late st Contact Info) Description 06/18/2015 [facility] Extended Documentation [facility] [address] [place] [address] Rochelle Ivey, [facility] [address] [place] [address] Social History Tobacco Use Types Packs/Day Years Used Date Smoking Tobacco: Never Smokeless Tobacco: Never Comments:no smokers in house hold Alcohol Use Standard Drinks/Week Comments No 0 (1 standard drink = 0.6 oz pur e alcohol) Comments No Sex and Gender Information Value Date Recorded Sex Assigned at Female 09/04/2021 9:00 PM HOOP COILER Legal Sex Female 4:25 AM HOOP COILER Gender Identity Female 09/04/2021 9:00 PM HOOP COILER Sexual Orientation Straight 09/04/2021 9: 00 PM HOOP COILER documented as of this encounter Plan of Treatment Upcoming Encounters Date Type Department Care Team (Late st Contact Info) Description 07/04/2024 2:30 PM HOOP COILER Office Visit [facility] [address] [place] [address] Alber Estrada PA-C [address] [place] [address] 07/05/2024 2:00 PM HOOP COILER Office Visit [facility] [address] [facility] [address] [place] [address] Caitlin Tarango, [facility] [address] [place] [address] documented as of this encounter Visit Diagnoses Not on filedocumented in this encounter Additional Health Concerns Infection Onset Date Last Indicated Resolved Time Rule Out COVID-19 06/07/2020 06/07/2020 06/08/2020 7:34 PM HOOP COILER Rule Out COVID-19 08/23/2021 08/23/2021 08/23/2021 9:17 PM HOOP COILER Rule Out COVID-19 04/21/2022 04/21/2022 04/21/2022 8:57 PM CDT Rule Out COVID-19 06/16/2022 06/16/2022 06/16/2022 10:51 PM HOOP COILER Influenza 06/16/2022 06/16/2022 06/23/2022 11:4 0 PM HOOP COILER Rule Out COVID-19 03/02/2023 03/02/2023 03/02/2023 7:24 PM CDT Rule Out COVID-19 04/28/2023 04/28/2023 04/28/2023 1:13 AM CDT Rule Out COVID-19 05/04/2023 05/04/2023 05/04/2023 8:26 PM CDT Rule Out COVID-19 05/19/2023 05/19/2023 05/20/2023 12:58 AM CDT Rule Out COVID-19 06/17/2023 06/17/2023 06/17/2023 2:16 AM HOOP COILER Rule Out C-difficile 07/21/2023 07/21/2023 024 8:45 AM HOOP COILER Rule Out COVID-19 11/07/2023 11/07/2023 11/07/2023 10:43 PM CDT documented as of this encounter Care Teams Police Radio Dispatcher Relationship Specialty Start Date End Date Queta Fritz MD PCP - General Pediatrics 11/15/14 12/18/15 Queta Fritz MD PCP - General Pediatrics 12/19/15 05/27/20 Queta Fritz MD NO LONGER AT [facility]/UNABLE TO LOCATE 07/05/23 PCP - Assigned PCP 03/04/14 09/20/18 Khalida Beyer MD [address] [place] [address] PCP - General Psychiatry 05/28/20 08/22/21 No Ref-Primary, Physician PCP - General 08/23/21 06/18/22 Alber Estrada PA-C [address] [facility] [place] [address] PCP - General Family Medicine 06/19/22 07/15/22 No Ref-Primary, Physician PCP - General 08/27/22 11/02/23 Alber Estrada PA-C [address] [place] [address] PCP - General Family Medicine 11/03/23 Joseline Connors, MARGUERITE Rim Fire Charger Operator 11/05/16 11/23/16 Queta Fritz MD NO LONGER AT [facility]/UNABLE TO LOCATE 07/05/23 Assigned PCP 03/04/14 04/12/21 Tc Jama MD [address] [place] [address] [id number] Pediatric Surgery 02/14/20 Tc Jama MD 2450 [facility] [address] [place], [place] 5[address] Assigned Pediatric Specialist Provider 05/10/20 09/06/21 Rosario Noe APRN CNM [facility] 2635 [facility] 160 [place], [place] [id number] Assigned OBGYN Provider 07/21/20 2 Eda Duarte MD [address] [place] [address] [address] [place] [address] Assigned Surgical Provider 10/02/20 06/05/22 [place] [address] [place] [address] [id number] Assigned Sleep Provider 01/31/21 3 Navid Paige MD [address]09 [place], [place] [phone] Assigned Musculoskeletal Provider 03/16/21 09/11/22 Norma Ruggiero APRN PARKING ENFORCER [address] [place] [address] [id number] Assigned PCP 04/13/21 05/24/21 Queta Fritz MD NO LONGER AT [facility]/UNABLE TO LOCATE 07/05/23 Assigned PCP 05/25/21 07/26/21 Norma Ruggiero APRN PARKING ENFORCER [address] 975644 Assigned PCP 07/27/21 09/06/21 Alber Estrada PA-C [address] [place], [place] 30[address] Assigned PCP 09/07/21 Maxine Patel CNM [address] [place] [address] Assigned OBGYN Provider 07/25/2207/02 Navid Regalado MD 909 [place], [place] 2[address] Dermatology 04/30/23 Willow Mcnulty APRN PARKING ENFORCER [address] [place] [address] 320510 Nurse Practitioner Nurse Practitioner Primary Care 06/02/23 Lashae Holt APRN PARKING ENFORCER 1600 [facility] 101 [place] [address] Nurse Practitioner Pain Medicine 06/02/23 Irma Isaac, [facility] Clinic Outpatient Coder Primary Care - CC 06/08/23 Lamont Marcus MD [address] [facility] 100 [place] [address] inspector tester sorter 06/25/23 Irma Isaac, [facility] Lead Outpatient Coder Primary Care - CC 06/29/2306/19 Alber Estrada PA-C [address] [address] [place] [address] Assigned Pain Medication Provider 07/03/23 08/11/23 Lamont Marcus MD [address] [address] Assigned OBGYN Provider 07/03/2307/16 Esau Monet MD [address], [facility] 100 [place] [address] Assigned OBGYN Provider 07/17/23 Ahmet Almaguer MD [address] [place] [address] Assigned Surgical Provider 08/20/23 11/08/23 iLv Olson PA-C [address] [place] [address] Physician Vault Person Urology 09/23/23 Eda Duarte MD 420 [facility] 394 [place] [address] Assigned Surgical Provider 11/09/23 12/08/23 Karoline Su, [facility] [address] [place] [address] Assigned Behavioral Health Provider 11/09/23 Navid Regalado MD [address] [place] [address] Assigned Surgical Provider 12/09/23 Cony Cameron RN RN Clinical Product Navigator Primary Care - CC 04/10/24 04/10/24 Chip Crane LSW Clinic Outpatient Coder Primary Care - CC 04/10/24 Caitlin Tarango CNM [address] [facility] 700 [place], [place] [address] Machine Gun Mechanic inspector tester sorter 05/31/24 documented as of this encounter
--- OUTSIDE RECORDS SUMMARY | 2024-06-14 09:56 | XMS_ITS | Encounter Summary ---
Author Organization [place] Address [facility]0 [place] [address] Care Team Providers Care Frickertron Checker Name Role Phone Queta Fritz MD Unavailable Unava ilable Tc Jama MD Unavailable [phone] Tc Jama MD Unavailable [phone] Khalida Beyer MD Primary Care Provider [phone] Rosario Noe APRN CNM Unavailable [phone] Eda Duarte MD Unavailable [phone] Mike Sherwood MD Unavailable [phone] Navid Paige MD Unavailable [phone] Norma Ruggiero APRN GENERAL PARTNER Unavailable + [phone] Queta Fritz MD Unavailable Unava ilNorma Prince APRN GENERAL PARTNER Unavailable + [phone] No Ref-Primary, Physician Primary Care Provider Alber Estrada PA-C Unavailable +[phone] Alber Estrada PA-C Primary Care Provider Maxine Patel CNM Unavailable [phone] No Ref-Primary, Physician Primary Care Provider Navid Regalado MD Unavailable +[phone] Willow Mcnulty TERRY GENERAL PARTNER Unavailable [phone] Lashae Holt NEPHROLOGY NURSE GENERAL PARTNER Unavailable + [address] Ir[address] OPENINGS INSPECTOR Unavailable Lamont Marcus MD Unavailable [phone] OPENINGS INSPECTOR Unavailable +[phone] Alber Estrada PA-C Unavailable [phone] Lamont Marcus MD Unavailable [phone] Esau Monet MD Unavailable [phone] Ahmet Almaguer MD Unavailable +[phone] Liv Olson PA-C Unavailable Alber Estrada-C Primary Care Provider Eda Duarte MD Unavailable [phone] Karoline Su BUSINESS OBJECTS ARCHITECT Unavailable [phone] Navid Regalado MD Unavailable [phone] Cony Cameron RN Unavailable [phone] OPENINGS INSPECTOR Unavailable [phone] Caitlin Tarango [facility] Unavailable [phone] Reason for Visit * Reason Onset Date Comments Appointment 06/27/2020 Referral to Urol marilyn Encounter Details Date Type Department Care Team (Late st Contact Info) Description 06/27/2020 Telephone [facility] [address] [place] [address] Unknown Appointment (Referral to Urology) Social History Tobacco Use Types Packs/Day Years [...] Family Three times a week 12/07/2018 Attends Christianity Services Never 12/07 Active Member of Clubs or Organizations No 12/07/2018 Attends Club or Organization Meetings Never 12/07/2018 Marital Status Patient declined 12/07/2018 AUDIT-C Answer Date Recorded Frequency of Alcohol Consumption Never 12/07/2018 Average Number of Drinks Patient declined 2018 Frequency of Binge Drinking Never 11/17 PHQ-2 Answer Date Recorded PHQ-2 Score 1 06/26/2020 [facility] - Occupational [...] Sex Assigned at Female 09/04/2021 9:00 PM CLASS B DRIVER Legal Sex Female 4:25 AM CLASS B DRIVER Gender Identity Female 09/04/2021 9:00 PM CLASS B DRIVER Sexual Orientation Straight 09/04/2021 9: 00 PM CLASS B DRIVER COVID-19 Exposure Response Date Recorded In the last month, have you been in contact with someone who was confirmed or suspected to have Coronavirus / COVID-19? No / Unsure 06/29/2020 9:26 PM CLASS B DRIVER documented as of this encounter Miscellaneous Notes * Telephone Encounter - Liv Madison - 06/27/2020 11:30 AM CST [facility] Phone Message May a detailed message be left on voicemail: yes Reason for Call: Appointment Intake Referring Provider Name: Queta Fritz MD in [place] [facility] Diagnosis and/or Symptoms: Nighttime polyuria Spoke with patient and stated Dr. Fritz informed her to have this be in person. Please advise andcontact pt's mother, Eleanor at [phone]. Referral/recs are in system. Thanks! Action Taken: Message routed to: Other: [facility]- [place] Travel Screening: Not Applicable S B DRIVER documented in this encounter Plan of Treatment Upcoming Encounters Date Type Department Care Team (Late st Contact Info) Description 07/04/2024 2:30 PM CLASS B DRIVER Office Visit [facility] [place] [facility] [address] [place] [address] Alber Estrada PA-C [address] [place] [address] 07/05/2024 2:00 PM CLASS B DRIVER [facility] Visit [facility] [address] [facility] [address] [place] [address] Caitlin Tarango, [facility] [address] [facility] 700 [place] [address] documented as of this encounter Visit Diagnoses Not on filedocumented in this encounter Additional Health Concerns Infection Onset Date Last Indicated Resolved Time Rule Out COVID-19 08/23/2021 08/23/2021 08/23/2021 9:17 PM CLASS B DRIVER Rule Out COVID-19 04/21/2022 04/21/2022 04/21/2022 8:57 PM CDT Rule Out COVID-19 06/16/2022 06/16/2022 06/16/2022 10:51 PM CLASS B DRIVER Influenza 06/16/2022 06/16/2022 06/23/2022 11:4 0 PM CLASS B DRIVER Rule Out COVID-19 03/02/2023 03/02/2023 03/02/2023 7:24 PM CDT Rule Out COVID-19 04/28/2023 04/28/2023 04/28/2023 1:13 AM CDT Rule Out COVID-19 05/04/2023 05/04/2023 05/04/2023 8:26 PM CDT Rule Out COVID-19 05/19/2023 05/19/2023 05/20/2023 12:58 AM CDT Rule Out COVID-19 06/17/2023 06/17/2023 06/17/2023 2:16 AM CLASS B DRIVER Rule Out C-difficile 07/21/2023 07/21/2023 024 8:45 AM CLASS B DRIVER Rule Out COVID-19 11/07/2023 11/07/2023 11/07/2023 10:43 PM CDT Assessment Noted Time PHQ-9 Depression Total Score: 13 020 10:44 AM CLASS B DRIVER documented as of this encounter Care Teams Frickertron Checker Relationship Specialty Start Date End Date Khalida Beyer MD [address] [place] [address] PCP - General Psychiatry 05/28/20 08/22/21 No Ref-Primary, Physician PCP - General 08/23/21 06/18/22 Alber Estrada PA-C [address] [address] PCP - General Family Medicine 06/19/22 07/15/22 No Ref-Primary, Physician PCP - General 08/27/22 11/02/23 Alber Estrada PA-C [address] [id number] PCP - General Family Medicine 11/03/23 Queta Fritz MD NO LONGER AT [facility]/UNABLE TO LOCATE 07/05/23 Assigned PCP 03/04/14 04/12/21 Tc Jama MD [address] [place] [address] Pediatric Surgery 02/14/20 Tc Jama MD 2450 [facility] 505 [place] [address] Assigned Pediatric Specialist Provider 05/10/20 09/06/21 Rosario Noe APRN CNM [facility] 2635 [facility] 160 [place], [place] [phone] Assigned OBGYN Provider 07/21/20 2 Eda Duarte MD [address] [place] [address] 394 [place] [address] Assigned Surgical Provider 10/02/20 06/05/22 Mike Sherwood MD [address] [place] [address] 004016 Assigned Sleep Provider 01/31/21 3 Navid Paige MD 9 [place], [place] 6[address] Assigned Musculoskeletal Provider 03/16/21 09/11/22 Norma Ruggiero APRN GENERAL PARTNER [facility] 505 [place] [address] Assigned PCP 04/13/21 05/24/21 Queta Fritz MD NO LONGER AT [facility]/UNABLE TO LOCATE 07/05/23 Assigned PCP 05/25/21 07/26/21 Norma Ruggiero APRN GENERAL PARTNER [address] [place] [address] Assigned PCP 07/27/21 09/06/21 Alber Estrada PA-C [address] [place], [place] 8[address] Assigned PCP 09/07/21 Maxine Patel CNM [address] [place], [place] [address] Assigned OBGYN Provider 07/25/2207/02 Navid Regalado MD 909 [place], [place] [address] Dermatology 04/30/23 Willow Mcnulty APRN GENERAL PARTNER [address] [address] Nurse Practitioner Nurse Practitioner Primary Care 06/02/23 Lashae Holt APRN GENERAL PARTNER [address] [address] Nurse Practitioner Pain Medicine 06/02/23 Irma Isaac, STREET OPENINGS INSPECTOR Clinic Rand Butting Machine Operator Primary Care - CC 06/08/23 Lamont Marcus MD [address] [address] toy assembly supervisor 06/25/23 Irma Isaac LSW Lead Rand Butting Machine Operator Primary Care - CC 06/29/2306/19 Alber Estrada PA-C [address] [address] [place] [address] Assigned Pain Medication Provider 07/03/23 08/11/23 Lamont Marcus MD [address] [facility] 100 [place] [address] Assigned OBGYN Provider 07/03/2307/16 Esau Monet MD [address], [facility] 100 [place] [address] Assigned OBGYN Provider 07/17/23 Ahmet Almaguer MD [address] [place] [address] Assigned Surgical Provider 08/20/23 11/08/23 Liv Olson PA-C [address] [facility] 377 [place] [address] Physician Reimbursement Consultant Urology 09/23/23 Eda Duarte MD 420 [facility] 394 [place], [place] [address] Assigned Surgical Provider 11/09/23 12/08/23 Karoline Su [facility] [address] [place] [address] Assigned Behavioral Health Provider 11/09/23 Navid Regalado MD [address] [place] [address] Assigned Surgical Provider 12/09/23 Cony Cameron RN RN Clinical Product Navigator Primary Care - CC 04/10/24 04/10/24 Chip Crane LSW Clinic Rand Butting Machine Operator Primary Care - CC 04/10/24 Caitlin Tarango CNM [address] [place] [address] Under Ground Miner toy assembly supervisor 05/31/24 documented as of this encounter
--- OUTSIDE RECORDS SUMMARY | 2024-06-14 09:56 | XMS_ITS | Encounter Summary ---
Author Organization [place] Address [facility]0 [place] [address] Care Team Providers Care Account Underwriter Name Role Phone Queta Fritz MD Primary Care Provider Unavailable Queta Fritz MD Unavailable Unava ilable Tc Jama MD Unavailable [phone] Tc Jama MD Unavailable [phone] Khalida Beyer MD Primary Care Provider [phone] Rosario Noe APRN CNM Unavailable Eda Duarte MD Unavailable [phone] Mike Sherwood MD Unavailable +[phone] Navid Paige MD Unavailable +[phone] Norma Ruggiero APRN GAS STATION SERVICE ATTENDANT Unavailable [phone] Queta Fritz MD Unavailable Unava ilable Norma Ruggiero APRN GAS STATION SERVICE ATTENDANT Unavailable [phone] No Ref-Primary, Physician Primary Care Provider Alber Estrada PA-C Unavailable + [phone] Alber Estrada PA-C Primary Care Provider Maxine Patel CNM Unavailable [phone] No Ref-Primary, Physician Primary Care Provider Navid Regalado MD Unavailable +[phone] Willow Mcnulty TERRY GAS STATION SERVICE ATTENDANT Unavailable +[phone] Lashae Holt AUTO OVERHAULER GAS STATION SERVICE ATTENDANT Unavailable + Irma Isaac STICKER ON Unavailable [phone] Lamont Marcus MD Unavailable +[phone] Poncho Irma Mora STICKER ON Unavailable +[phone] Alber Estrada-C Unavailable [phone] Lamont Marcus MD Unavailable [phone] Esau Monet MD Unavailable [phone] Ahmet Almaguer MD Unavailable [phone] Liv Olson-C Unavailable Alber Estrada-C Primary Care Provider Eda Duarte MD Unavailable +[phone] Karoline Su RESIDENTIAL SERVICE TECHNICIAN Unavailable +[phone] Navid Regalado MD Unavailable +[phone] Cony Cameron RN Unavailable [phone] Chip Crane STICKER ON Unavailable [phone] Caitlin Tarango CN Unavailable [phone] Encounter Details Date Type Department Care Team (Late st Contact Info) Description 05/27/2020 Telephone [facility] Behavioral Health Intake [address] [place] [address] Generic, Behavioral Intake, Social History Tobacco Use Types Packs/Day Years [...] Family Three times a week 12/07/2018 Attends Scientologist Services Never 12/07 Active Member of Clubs or Organizations No 12/07/2018 Attends Club or Organization Meetings Never 12/07/2018 Marital Status Patient declined 12/07/2018 AUDIT-C Answer Date Recorded Frequency of Alcohol Consumption Never 12/07/2018 Average Number of Drinks Patient declined 2018 Frequency of Binge Drinking Never 11/17 PHQ-2 Answer Date Recorded PHQ-2 Score 0 11/13/2019 [facility] - Occupational [...] Sex Assigned at Female 09/04/2021 9:00 PM BRIDAL SALES CONSULTANT Legal Sex Female 4:25 AM BRIDAL SALES CONSULTANT Gender Identity Female 09/04/2021 9:00 PM BRIDAL SALES CONSULTANT Sexual Orientation Straight 09/04/2021 9: 00 PM BRIDAL SALES CONSULTANT COVID-19 Exposure Response Date Recorded In the last month, have you been in contact with someone who was confirmed or suspected to have Coronavirus / COVID-19? No / Unsure 05/28/2020 2:31 AM BRIDAL SALES CONSULTANT documented as of this encounter Miscellaneous Notes * Telephone Encounter - Rod Cho - 05/27/2020 4:25 PM CST Update: COVID is negative. Utox is negative. HCG is negative. Per previous discharge note, Pt has dx of Borderline Intellectual Functioning [id number]. She was on 7ain February 2020. 4:18PM- called [facility] to request 72 hour hold. TUBING MILL SETTER will fax to Intake. 6:03PM- Dr. Olivares accepts for 4A/[place]. Unit and ED notified. 72 hr hold received. Faxed to unit. AL SALES CONSULTANT AL SALES CONSULTANT AL SALES CONSULTANT documented in this encounter Plan of Treatment Upcoming Encounters Date Type Department Care Team (Late st Contact Info) Description 07/04/2024 2:30 PM BRIDAL SALES CONSULTANT Office Visit [facility] [address] [place] [address] Alber Estrada PA-C [address] [place] [address] 07/05/2024 2:00 PM BRIDAL SALES CONSULTANT Office Visit [facility] [address] [place] [address] Caitlin Tarango, CNM [address] [place], [place] [address] documented as of this encounter Visit Diagnoses Not on filedocumented in this encounter Additional Health Concerns Infection Onset Date Last Indicated Resolved Time Rule Out COVID-19 06/07/2020 06/07/2020 06/08/2020 7:34 PM BRIDAL SALES CONSULTANT Rule Out COVID-19 08/23/2021 08/23/2021 08/23/2021 9:17 PM BRIDAL SALES CONSULTANT Rule Out COVID-19 04/21/2022 04/21/2022 04/21/2022 8:57 PM CDT Rule Out COVID-19 06/16/2022 06/16/2022 06/16/2022 10:51 PM BRIDAL SALES CONSULTANT Influenza 06/16/2022 06/16/2022 06/23/2022 11:4 0 PM BRIDAL SALES CONSULTANT Rule Out COVID-19 03/02/2023 03/02/2023 03/02/2023 7:24 PM CDT Rule Out COVID-19 04/28/2023 04/28/2023 04/28/2023 1:13 AM CDT Rule Out COVID-19 05/04/2023 05/04/2023 05/04/2023 8:26 PM CDT Rule Out COVID-19 05/19/2023 05/19/2023 05/20/2023 12:58 AM CDT Rule Out COVID-19 06/17/2023 06/17/2023 06/17/2023 2:16 AM BRIDAL SALES CONSULTANT Rule Out C-difficile 07/21/2023 07/21/2023 024 8:45 AM BRIDAL SALES CONSULTANT Rule Out COVID-19 11/07/2023 11/07/2023 11/07/2023 10:43 PM CDT Assessment Noted Time PHQ-9 Depression Total Score: 7 11/13/19 20 11:26 AM CDT documented as of this encounter Care Teams Account Underwriter Relationship Specialty Start Date End Date Queta Fritz MD PCP - General Pediatrics 12/19/15 05/27/20 Khalida Beyer MD [address] [address] PCP - General Psychiatry 05/28/20 08/22/21 No Ref-Primary, Physician PCP - General 08/23/21 06/18/22 Alber Estrada PA-C [address] [address] [address] PCP - General Family Medicine 06/19/22 07/15/22 No Ref-Primary, Physician PCP - General 08/27/22 11/02/23 Alber Estrada PA-C [address] [address] [id number] PCP - General Family Medicine 11/03/23 Queta Fritz MD NO LONGER AT [facility]/UNABLE TO LOCATE 07/05/23 Assigned PCP 03/04/14 04/12/21 Tc Jama MD [address] [place] [address] Pediatric Surgery 02/14/20 Tc Jama MD [address] [place], [place] [address] Assigned Pediatric Specialist Provider 05/10/20 09/06/21 Rosario Noe APRN CNM [facility] [address] [place], [place] [address] Assigned OBGYN Provider 07/21/20 2 Eda Duarte MD 420 [facility] 394 [place] [address] Assigned Surgical Provider 10/02/20 06/05/22 Mike Sherwood MD [address] [place] [address] Assigned Sleep Provider 01/31/21 3 Navid Paige MD [address] [place], [place] [address] Assigned Musculoskeletal Provider 03/16/21 09/11/22 Norma Ruggiero APRN GAS STATION SERVICE ATTENDANT [address] [place], [place] [id number] Assigned PCP 04/13/21 05/24/21 Queta Fritz MD NO LONGER AT [facility]/UNABLE TO LOCATE 07/05/23 Assigned PCP 05/25/21 07/26/21 oNrma Ruggiero APRN GAS STATION SERVICE ATTENDANT [address] [facility] [address] [place], [place] [address] Assigned PCP 07/27/21 09/06/21 Alber Estrada PA-C [address] [place], [place] [address] Assigned PCP 09/07/21 Maxine Patel CNM [address] [place] [address] Assigned OBGYN Provider 07/25/2207/02 Navid Regalado MD [address] [place], [place] [address] Dermatology 04/30/23 Willow Mcnulty APRN GAS STATION SERVICE ATTENDANT [address] [place] [address] 720180 Nurse Practitioner Nurse Practitioner Primary Care 06/02/23 Lashae Holt APRN GAS STATION SERVICE ATTENDANT [address] [address] Nurse Practitioner Pain Medicine 06/02/23 Irma Isaac, STICKER ON Clinic Business Support Associate Primary Care - CC 06/08/23 Lamont Marcus MD [address] [facility] 100 [place] [address] cissp 06/25/23 Irma Isaac, STICKER ON Lead Business Support Associate Primary Care - CC 06/29/2306/19 Alber Estrada PA-C [address] [facility] [place] [address] Assigned Pain Medication Provider 07/03/23 08/11/23 Lamont Marcus MD [address] [facility] 100 [place] [address] Assigned OBGYN Provider 07/03/2307/16 Esau Monet MD [address], [facility] 100 [place] [address] Assigned OBGYN Provider 07/17/23 Ahmet Almaguer MD [address] [place] [address] Assigned Surgical Provider 08/20/23 11/08/23 Liv Olson PA-C [address] [address] Physician Tests Superintendent Urology 09/23/23 Eda Duarte MD [address] [address] Assigned Surgical Provider 11/09/23 12/08/23 Karoline Su, [facility] [address] [place] [address] Assigned Behavioral Health Provider 11/09/23 Navid Regalado MD [address] [place], [place] [address] Assigned Surgical Provider 12/09/23 Cony Cameron RN RN Clinical Product Navigator Primary Care - CC 04/10/24 04/10/24 Chip Crane LSW Clinic Business Support Associate Primary Care - CC 04/10/24 Caitlin Tarango CNM [address] [address] Combo Welder cissp 05/31/24 documented as of this encounter
--- OUTSIDE RECORDS SUMMARY | 2024-06-14 09:56 | XMS_ITS | Encounter Summary ---
Author Organization [place] Address [facility] [place] [address] Care Team Providers Care Sales Planning Analyst Name Role Phone Queta Fritz MD Unavailable Unava ilable Tc Jama MD Unavailable [phone] Tc Jama MD Unavailable [phone] Khalida Beyer MD Primary Care Provider [phone] Rosario Noe APRN CNM Unavailable [phone] Eda Duarte MD Unavailable [phone] Mike Sherwood MD Unavailable [phone] Navid Paige MD Unavailable [phone] Norma Ruggiero APRN MEDICAL DEVICE SALES Unavailable + [phone] Queta Fritz MD Unavailable Unava ilNorma Prince APRN MEDICAL DEVICE SALES Unavailable + [phone] No Ref-Primary, Physician Primary Care Provider Alber Estrada PA-C Unavailable +[phone] Alber Estrada PA-C Primary Care Provider Maxine Patel CNM Unavailable [phone] No Ref-Primary, Physician Primary Care Provider Navid Regalado MD Unavailable [phone] Willow Mcnulty TERRY MEDICAL DEVICE SALES Unavailable [phone] dennisLashae pringle RADIOLOGICAL HEALTH SPECIALIST MEDICAL DEVICE SALES Unavailable + Poncho Irma Mora ECONOMIC DEVELOPER Unavailable Lamont Marcus MD Unavailable [phone] Pon[place] Irma Mora ECONOMIC DEVELOPER Unavailable [phone] Alber Estrada PA-C Unavailable [phone] Lamont Marcus MD Unavailable [phone] Esau Monet MD Unavailable [phone] Ahmet Almaguer MD Unavailable [phone] Liv Olson PA-C Unavailable Alber Estrada PA-C Primary Care Provider Eda Duarte MD Unavailable [phone] Karoline Su LINUX SYSTEM ADMINISTRATOR Unavailable [phone] Navid Regalado MD Unavailable [phone] Cony Cameron RN Unavailable [phone] Chip Crane ECONOMIC DEVELOPER Unavailable [phone] Caitlin Tarango [facility] Unavailable [phone] Reason for Visit * Reason Onset Date Comments MH/CD Inpatient 02/22/2021 Encounter Details Date Type Department Care Team (Late st Contact Info) Description 02/22/2021 Telephone [facility] Behavioral Health Intake [address] [place] [address] Generic, Behavioral Intake, MH/CD Inpatient Social [...] Family Three times a week 12/07/2018 Attends Evangelical Services Never 12/07 Active Member of Clubs or Organizations No 12/07/2018 Attends Club or Organization Meetings Never 12/07/2018 Marital Status Patient declined 12/07/2018 AUDIT-C Answer Date Recorded Frequency of Alcohol Consumption Never 12/07/2018 Average Number of Drinks Patient declined 2018 Frequency of Binge Drinking Never 11/17 PHQ-2 Answer Date Recorded PHQ-2 Score 0 12/03/2020 [facility] - [...] Sex Assigned at Female 09/04/2021 9:00 PM SAP FICO ARCHITECT Legal Sex Female 4:25 AM SAP FICO ARCHITECT Gender Identity Female 09/04/2021 9:00 PM SAP FICO ARCHITECT Sexual Orientation Straight 09/04/2021 9: 00 PM SAP FICO ARCHITECT COVID-19 Exposure Response Date Recorded In the last month, have you been in contact with someone who was confirmed or suspected to have Coronavirus / COVID-19? No / Unsure 02/22/2021 9:33 PM CDT documented as of this encounter Miscellaneous Notes * Telephone Encounter - Evelia Weller - 02/22/2021 11:55 PM CDT Patient cleared and ready for behavioral bed placement: Yes S: 20 y/o female presented to the [facility] with SI and HI. B: Hx borderline intellectual functioning, autism, ADHD, anxiety, SIB. Pt called EMS from her grouphome with complaints of knee pain and both residential and guardian declined consenting to treatmentas she had been seen in an urgent care already. Pt became upset, throwing objects at home and endorsed suicidal ideation to EMS workers. Suicidal threats to grab a knife and stab herself. Drafter Assistant reported pt was throwing things at her residential and made HI threats toward her mother. Drafter Assistant determined she made HI threats while angry and is no longer HI. No reported psychosis or substance abuse. Pt stated she is unable to contract for safety at the residential. A: Voluntary. Mother is guardian. No acute medical concerns. Negative for COVID. Drug screen and HCG negative. R: 0058 ED reporting pt is wearing an immobilizer for comfort and uses it PRN. Pt has a hx of chronic knee pain. ED will check with guardian about placement on a general adult unit. No beds availableon 4A tonight. 0107 ED checked with guardian who has consented to placement on a general adult MH unit. Identifying placement options. 0135 On-Call paged. 0139 Dr. Sung accepts and requesting pt transfer without the knee immobilizer. Dr. Noriega reporting he can transfer pt to [facility] without the knee immobilizer. 5500AB/[place]. Placed in queue at4639. Unit notified at 0148. ED notified at 0152. documented in this encounter Plan of Treatment Upcoming Encounters Date Type Department Care Team (Late st Contact Info) Description 07/04/2024 2:30 PM SAP FICO ARCHITECT Office Visit [facility] [address] [place] [address] Alber Estrada PA-C [address] [place] [address] 07/05/2024 2:00 PM SAP FICO ARCHITECT Office Visit [facility] [address] [place] [address] Caitlin Tarango, [place] [address] [place] [address] documented as of this encounter Visit Diagnoses Not on filedocumented in this encounter Additional Health Concerns Infection Onset Date Last Indicated Resolved Time Rule Out COVID-19 08/23/2021 08/23/2021 08/23/2021 9:17 PM SAP FICO ARCHITECT Rule Out COVID-19 04/21/2022 04/21/2022 04/21/2022 8:57 PM CDT Rule Out COVID-19 06/16/2022 06/16/2022 06/16/2022 10:51 PM SAP FICO ARCHITECT Influenza 06/16/2022 06/16/2022 06/23/2022 11:4 0 PM SAP FICO ARCHITECT Rule Out COVID-19 03/02/2023 03/02/2023 03/02/2023 7:24 PM CDT Rule Out COVID-19 04/28/2023 04/28/2023 04/28/2023 1:13 AM CDT Rule Out COVID-19 05/04/2023 05/04/2023 05/04/2023 8:26 PM CDT Rule Out COVID-19 05/19/2023 05/19/2023 05/20/2023 12:58 AM CDT Rule Out COVID-19 06/17/2023 06/17/2023 06/17/2023 2:16 AM SAP FICO ARCHITECT Rule Out C-difficile 07/21/2023 07/21/2023 024 8:45 AM SAP FICO ARCHITECT Rule Out COVID-19 11/07/2023 11/07/2023 11/07/2023 10:43 PM CDT Assessment Noted Time PHQ-9 Depression Total Score: 13 020 10:44 AM SAP FICO ARCHITECT documented as of this encounter Care Teams Sales Planning Analyst Relationship Specialty Start Date End Date Khalida Beyer MD [address] [facility] [address] [place] [address] PCP - General Psychiatry 05/28/20 08/22/21 No Ref-Primary, Physician PCP - General 08/23/21 06/18/22 Alber Estrada PA-C [address] [place] [address] PCP - General Family Medicine 06/19/22 07/15/22 No Ref-Primary, Physician PCP - General 08/27/22 11/02/23 Alber Estrada PA-C [address] [address] [place] [address] PCP - General Family Medicine 11/03/23 Queta Fritz MD NO LONGER AT [facility]/UNABLE TO LOCATE 07/05/23 Assigned PCP 03/04/14 04/12/21 Tc Jama MD [address] [place] [address] Pediatric Surgery 02/14/20 Tc Jama MD [address] [place] [address] 505 [place] [address] Assigned Pediatric Specialist Provider 05/10/20 09/06/21 Rosario Noe APRN CN [facility] [address] [facility] 160 [place] [address] Assigned OBGYN Provider 07/21/20 2 Eda Duarte MD [address] [place] [address] 394 [place], [place] [address] Assigned Surgical Provider 10/02/20 06/05/22 Mike Sherwood MD [facility] [employer], [place] [address] Assigned Sleep Provider 01/31/21 3 Navid Paige MD 909 [place] [address] Assigned Musculoskeletal Provider 03/16/21 09/11/22 Norma Ruggiero APRN MEDICAL DEVICE SALES 2450 [facility] 505 [place], [place] [address] Assigned PCP 04/13/21 05/24/21 Queta Fritz MD NO LONGER AT [facility]/UNABLE TO LOCATE 07/05/23 Assigned PCP 05/25/21 07/26/21 Norma Ruggiero APRN MEDICAL DEVICE SALES 2450 [facility] 505 [place] [address] Assigned PCP 07/27/21 09/06/21 Alber Estrada PA-C [address] [place] [address] Assigned PCP 09/07/21 Maxine Patel CNM [address] [place] [address] Assigned OBGYN Provider 07/25/2207/02 Navid Regalado MD 9 [place] [address] Dermatology 04/30/23 Willow Mcnulty APRN MEDICAL DEVICE SALES [address] [place] [address] Nurse Practitioner Nurse Practitioner Primary Care 06/02/23 Lashae Holt APRN CNP [address] [place] [address] 101 [place] [address] Nurse Practitioner Pain Medicine 06/02/23 Irma Isaac, [facility] Clinic Behavioral Health Rn Primary Care - CC 06/08/23 Lamont Marcus MD [address] [place] [address] [address] biological science technician fish 06/25/23 Irma Isaac, ECONOMIC DEVELOPER Lead Behavioral Health Rn Primary Care - CC 06/29/2306/19 Alber Estrada PA-C [address] [place] [address] Assigned Pain Medication Provider 07/03/23 08/11/23 Lamont Marcus MD [address] [place] [facility] 100 [place] [address] Assigned OBGYN Provider 07/03/2307/16 Esau Monet MD [address] [facility] 100 [place] [address] Assigned OBGYN Provider 07/17/23 Ahmet Almaguer MD [address] [place] [address] Assigned Surgical Provider 08/20/23 11/08/23 Liv Olson PA-C [address] [facility] 377 [place] [address] Physician Patient Case Manager Urology 09/23/23 Eda Duarte MD 420 [facility] 394 [place], [place] [address] Assigned Surgical Provider 11/09/23 12/08/23 Karoline Su, [facility] [address] [place] [address] Assigned Behavioral Health Provider 11/09/23 Navid Regalado MD [address] [place] [address] Assigned Surgical Provider 12/09/23 Cony Cameron RN RN Clinical Product Navigator Primary Care - CC 04/10/24 04/10/24 Chip Crane LSW Clinic Behavioral Health Rn Primary Care - CC 04/10/24 Caitlin Tarango CNM [address] [facility] 700 [place], [place] [address] Broomcorn Scraper biological science technician fish 05/31/24 documented as of this encounter
--- OUTSIDE RECORDS SUMMARY | 2024-06-14 09:56 | XMS_ITS | Encounter Summary ---
Author Organization [facility] Address [facility] [place] [address] Care Team Providers Care Gambling Dealer Name Role Phone Queta Fritz MD Unavailable Unava ilable Tc Jama MD Unavailable [phone] Tc Jama MD Unavailable [phone] Khalida Beyer MD Primary Care Provider [phone] Rosario Noe APRN CNM Unavailable [phone] Eda Duarte MD Unavailable +[phone] Mike Sherwood MD Unavailable [phone] Navid Paige MD Unavailable +[phone] Norma Ruggiero APRN CUSTOMER ACCOUNT SPECIALIST Unavailable + [phone] Queta Fritz MD Unavailable Unava ilNorma Prince APRN CUSTOMER ACCOUNT SPECIALIST Unavailable + [phone] No Ref-Primary, Physician Primary Care Provider Alber Estrada PA-C Unavailable +[phone] Alber Estrada PA-C Primary Care Provider Maxine Patel CNM Unavailable [phone] No Ref-Primary, Physician Primary Care Provider Navid Regalado MD Unavailable +[phone] Willow Mcnulty TERRY CUSTOMER ACCOUNT SPECIALIST Unavailable +[phone] EduarLashae pringle LAST WAXER CUSTOMER ACCOUNT SPECIALIST Unavailable + Poncho Irma Mora RAKING MACHINE OPERATOR Unavailable Lamont Marcus MD Unavailable [phone] Poncho Irma Mora RAKING MACHINE OPERATOR Unavailable [phone] Alber Estrada PA-C Unavailable [phone] Lamont Marcus MD Unavailable [phone] Esau Monet MD Unavailable [phone] Ahmet Almaguer MD Unavailable +[phone] Liv Olson PA-C Unavailable Alber Estrada-C Primary Care Provider Eda Duarte MD Unavailable +[phone] Karoline Su KNIFE BLADE POLISHER Unavailable +[phone] Navid Regalado MD Unavailable +[phone] Cony Cameron RN Unavailable [phone] Chip Crane RAKING MACHINE OPERATOR Unavailable [phone] Caitlin Tarango [facility] Unavailable +[phone] Encounter Details Date Type Department Care Team (Late st Contact Info) Description 01/21/2021 [facility] Medical Advice [facility] Sleep [address] [address] Esteban Cho, MA Social History [...] Family Three times a week 12/07/2018 Attends Catholic Services Never 12/07 Active Member of Clubs or Organizations No 12/07/2018 Attends Club or Organization Meetings Never 12/07/2018 Marital Status Patient declined 12/07/2018 AUDIT-C Answer Date Recorded Frequency of Alcohol Consumption Never 12/07/2018 Average Number of Drinks Patient declined 2018 Frequency of Binge Drinking Never 11/17 PHQ-2 Answer Date Recorded PHQ-2 Score 0 12/03/2020 [facility] of Occupat ional Health - Occupational Stress [...] Sex Assigned at Female 09/04/2021 9:00 PM PLUMBER Legal Sex Female 4:25 AM PLUMBER Gender Identity Female 09/04/2021 9:00 PM PLUMBER Sexual Orientation Straight 09/04/2021 9: 00 PM PLUMBER documented as of this encounter Plan of Treatment Upcoming Encounters Date Type Department Care Team (Late st Contact Info) Description 07/04/2024 2:30 PM PLUMBER Office Visit [facility] [address] [place] [address] Alber Estrada PA-C [address] [place] [address] 07/05/2024 2:00 PM PLUMBER Office Visit [facility] [place] [address] [place] [address] Caitlin Tarango, CNM [address] [place] [address] documented as of this encounter Visit Diagnoses Not on filedocumented in this encounter Additional Health Concerns Infection Onset Date Last Indicated Resolved Time Rule Out COVID-19 08/23/2021 08/23/2021 08/23/2021 9:17 PM PLUMBER Rule Out COVID-19 04/21/2022 04/21/2022 04/21/2022 8:57 PM CDT Rule Out COVID-19 06/16/2022 06/16/2022 06/16/2022 10:51 PM PLUMBER Influenza 06/16/2022 06/16/2022 06/23/2022 11:4 0 PM PLUMBER Rule Out COVID-19 03/02/2023 03/02/2023 03/02/2023 7:24 PM CDT Rule Out COVID-19 04/28/2023 04/28/2023 04/28/2023 1:13 AM CDT Rule Out COVID-19 05/04/2023 05/04/2023 05/04/2023 8:26 PM CDT Rule Out COVID-19 05/19/2023 05/19/2023 05/20/2023 12:58 AM CDT Rule Out COVID-19 06/17/2023 06/17/2023 06/17/2023 2:16 AM PLUMBER Rule Out C-difficile 07/21/2023 07/21/2023 024 8:45 AM PLUMBER Rule Out COVID-19 11/07/2023 11/07/2023 11/07/2023 10:43 PM CDT Assessment Noted Time PHQ-9 Depression Total Score: 13 020 10:44 AM PLUMBER documented as of this encounter Care Teams Gambling Dealer Relationship Specialty Start Date End Date Khalida Beyer MD [address] [place] [address] PCP - General Psychiatry 05/28/20 08/22/21 No Ref-Primary, Physician PCP - General 08/23/21 06/18/22 Alber Estrada PA-C [address] [place] [id number] PCP - General Family Medicine 06/19/22 07/15/22 No Ref-Primary, Physician PCP - General 08/27/22 11/02/23 Alber Estrada PA-C [address] [place] [id number] PCP - General Family Medicine 11/03/23 Queta Fritz MD NO LONGER AT [facility]/UNABLE TO LOCATE 07/05/23 Assigned PCP 03/04/14 04/12/21 Tc Jama MD [address] [place] [address] [id number] Pediatric Surgery 02/14/20 Tc Jama MD [address] [place] [address] 505 [place] [address] Assigned Pediatric Specialist Provider 05/10/20 09/06/21 Rosario Noe APRN CNM [facility] 2635 [facility] 160 [place], [place] [id number] Assigned OBGYN Provider 07/21/20 2 Eda Duarte MD 420 [facility] 394 [place], [place] [address] Assigned Surgical Provider 10/02/20 06/05/22 Mike Sherwood MD [facility]5 [place], [place] 736436 Assigned Sleep Provider 01/31/21 3 Navid Paige MD [address] [place] [id number] Assigned Musculoskeletal Provider 03/16/21 09/11/22 Norma Ruggiero APRN CUSTOMER ACCOUNT SPECIALIST [address] [place] [address] Assigned PCP 04/13/21 05/24/21 Queta Fritz MD NO LONGER AT [facility]/UNABLE TO LOCATE 07/05/23 Assigned PCP 05/25/21 07/26/21 Norma Ruggiero APRN CUSTOMER ACCOUNT SPECIALIST [address] [place] [address] Assigned PCP 07/27/21 09/06/21 Alber Estrada PA-C [address] [place], [place] [address] Assigned PCP 09/07/21 Maxine Patel CNM [address] [place], [place] [address] Assigned OBGYN Provider 07/25/2207/02 Navid Regalado MD [address] [place] [id number] Dermatology 04/30/23 Willow Mcnulty APRN CUSTOMER ACCOUNT SPECIALIST [address] [place] [address] Nurse Practitioner Nurse Practitioner Primary Care 06/02/23 Lashae Holt APRN CUSTOMER ACCOUNT SPECIALIST 1600 [facility] 101 [place] [address] Nurse Practitioner Pain Medicine 06/02/23 Irma Isaac, [facility] Clinic Terrazzo Mechanic Primary Care - CC 06/08/23 Lamont Marcus MD [address] [address] pharmacy intern 06/25/23 Irma Isaac, [facility] Lead Terrazzo Mechanic Primary Care - CC 06/29/2306/19 Alber Estrada PA-C [address] [facility] [place] [address] Assigned Pain Medication Provider 07/03/23 08/11/23 Lamont Marcus MD [address] [address] Assigned OBGYN Provider 07/03/2307/16 Esau Monet MD [address], [address] [address] Assigned OBGYN Provider 07/17/23 Ahmet Almaguer MD [address] [place] [address] [id number] Assigned Surgical Provider 08/20/23 11/08/23 Liv Olson PA-C [address] [facility] 377 [place] [address] Physician Traveling Passenger Agent Urology 09/23/23 Eda Duarte MD 420 [facility] 394 [place] [address] Assigned Surgical Provider 11/09/23 12/08/23 Karoline Su, [facility] [address] [place] [address] Assigned Behavioral Health Provider 11/09/23 Navid Regalado MD [address] [place] [address] Assigned Surgical Provider 12/09/23 Cony Cameron RN RN Clinical Product Navigator Primary Care - CC 04/10/24 04/10/24 Chip Crane LSW Clinic Terrazzo Mechanic Primary Care - CC 04/10/24 Caitlin Tarango CNM 606 [facility] 700 [place], [place] [address] Semiconductor Wafer Inspector pharmacy intern 05/31/24 documented as of this encounter
--- OUTSIDE RECORDS SUMMARY | 2024-06-14 09:56 | XMS_ITS | Encounter Summary ---
Author Organization [place] Address [facility] [place] [address] Care Team Providers Care Quality Lead Name Role Phone Queta Fritz MD Unavailable Unava ilable Tc Jama MD Unavailable [phone] Tc Jama MD Unavailable [phone] Khalida Beyer MD Primary Care Provider [phone] Rosario Noe APRN CNM Unavailable [phone] Eda Duarte MD Unavailable [phone] Mike Sherwood MD Unavailable [phone] Navid Paige MD Unavailable +[phone] Norma Ruggiero APRN SMELTING ENGINEER Unavailable + [phone] Queta Fritz MD Unavailable Unava ilNorma Prince APRN SMELTING ENGINEER Unavailable + [phone] No Ref-Primary, Physician Primary Care Provider Alber Estrada PA-C Unavailable +[phone] Alber Estrada PA-C Primary Care Provider Maxine Patel CNM Unavailable [phone] No Ref-Primary, Physician Primary Care Provider Navid Regalado MD Unavailable +[phone] Willow Mcnulty TERRY SMELTING ENGINEER Unavailable [phone] Lashae Holt FOILING MACHINE OPERATOR SMELTING ENGINEER Unavailable + Poncho Irma Mora TANK TRUCK ENGINE MECHANIC Unavailable Lamont Marcus MD Unavailable [phone] Poncho Irma Mora TANK TRUCK ENGINE MECHANIC Unavailable [phone] Alber Estrada-C Unavailable [phone] Lamont Marcus MD Unavailable Esau Monet MD Unavailable [phone] Ahmet Almaguer MD Unavailable +[phone] Lvi Olson PA-C Unavailable Alber Estrada-C Primary Care Provider Eda Duarte MD Unavailable [phone] Karoline Su MANAGER GROUP HOME Unavailable +[phone] Navid Regalado MD Unavailable [phone] Cony Cameron RN Unavailable [phone] Chip Crane TANK TRUCK ENGINE MECHANIC Unavailable [phone] Caitlin Tarango [facility] Unavailable [phone] Encounter Details Date Type Department Care Team (Latest Contact Info) Description 06/26/2020 Historic Results Social History Tobacco Use Types Packs/Day Years [...] Family Three times a week 12/07/2018 Attends Baptist Services Never 12/07 Active Member of Clubs or Organizations No 12/07/2018 Attends Club or Organization Meetings Never 12/07/2018 Marital Status Patient declined 12/07/2018 AUDIT-C Answer Date Recorded Frequency of Alcohol Consumption Never 12/07/2018 Average Number of Drinks Patient declined 2018 Frequency of Binge Drinking Never 11/17 PHQ-2 Answer Date Recorded PHQ-2 Score 1 06/26/2020 [facility] of Occupat ional [facility] - Occupational Stress Questionnaire Answer Date [...] Sex Assigned at Female 09/04/2021 9:00 PM LAUNDRY HELPER Legal Sex Female 4:25 AM LAUNDRY HELPER Gender Identity Female 09/04/2021 9:00 PM LAUNDRY HELPER Sexual Orientation Straight 09/04/2021 9: 00 PM LAUNDRY HELPER COVID-19 Exposure Response Date Recorded In the last month, have you been in contact with someone who was confirmed or suspected to have Coronavirus / COVID-19? No / Unsure 06/29/2020 9:26 PM LAUNDRY HELPER documented as of this encounter Plan of Treatment Upcoming Encounters Date Type Department Care Team (Late st Contact Info) Description 07/04/2024 2:30 PM LAUNDRY HELPER Office Visit [facility] [address] [place] [address] Alber Estrada PA-C [address] [place] [address] 07/05/2024 2:00 PM LAUNDRY HELPER Office Visit [facility] [place] [address] [facility] [address] [place] [address] Sukhdeep, Caitlin Gomez, [place] [address] [facility] 700 [place], [place] [address] documented as of this encounter Visit Diagnoses Not on filedocumented in this encounter Additional Health Concerns Infection Onset Date Last Indicated Resolved Time Rule Out COVID-19 08/23/2021 08/23/2021 08/23/2021 9:17 PM LAUNDRY HELPER Rule Out COVID-19 04/21/2022 04/21/2022 04/21/2022 8:57 PM CDT Rule Out COVID-19 06/16/2022 06/16/2022 06/16/2022 10:51 PM LAUNDRY HELPER Influenza 06/16/2022 06/16/2022 06/23/2022 11:4 0 PM LAUNDRY HELPER Rule Out COVID-19 03/02/2023 03/02/2023 03/02/2023 7:24 PM CDT Rule Out COVID-19 04/28/2023 04/28/2023 04/28/2023 1:13 AM CDT Rule Out COVID-19 05/04/2023 05/04/2023 05/04/2023 8:26 PM CDT Rule Out COVID-19 05/19/2023 05/19/2023 05/20/2023 12:58 AM CDT Rule Out COVID-19 06/17/2023 06/17/2023 06/17/2023 2:16 AM LAUNDRY HELPER Rule Out C-difficile 07/21/2023 07/21/2023 024 8:45 AM LAUNDRY HELPER Rule Out COVID-19 11/07/2023 11/07/2023 11/07/2023 10:43 PM CDT Assessment Noted Time PHQ-9 Depression Total Score: 13 020 10:44 AM LAUNDRY HELPER documented as of this encounter Care Teams Quality Lead Relationship Specialty Start Date End Date Khalida Beyer MD [address] [place] [address] PCP - General Psychiatry 05/28/20 08/22/21 No Ref-Primary, Physician PCP - General 08/23/21 06/18/22 Alber Estrada PA-C [address] [place] [id number] PCP - General Family Medicine 06/19/22 07/15/22 No Ref-Primary, Physician PCP - General 08/27/22 11/02/23 Alber Estrada PA-C [address] [id number] PCP - General Family Medicine 11/03/23 Queta Fritz MD NO LONGER AT [facility]/UNABLE TO LOCATE 07/05/23 Assigned PCP 03/04/14 04/12/21 Tc Jama MD [facility] [address] [id number] Pediatric Surgery 02/14/20 cT Jama MD 2450 [facility] 505 [place], [place] [address] Assigned Pediatric Specialist Provider 05/10/20 09/06/21 Rosario Noe APRN CNM [facility] 2635 [facility] 160 [place], [place] [phone] Assigned OBGYN Provider 07/21/20 2 Eda Duarte MD 420 [facility] 394 [place] [address] Assigned Surgical Provider 10/02/20 06/05/22 Mike Sherwood MD [facility]5 [place], [place] [address] Assigned Sleep Provider 01/31/21 3 Navid Paige MD [address] [place] [address] [id number] Assigned Musculoskeletal Provider 03/16/21 09/11/22 Norma Ruggiero APRN SMELTING ENGINEER [facility] [address] [address] Assigned PCP 04/13/21 05/24/21 Queta Fritz MD NO LONGER AT [facility]/UNABLE TO LOCATE 07/05/23 Assigned PCP 05/25/21 07/26/21 Norma Ruggiero APRN SMELTING ENGINEER [facility] [address] [address] Assigned PCP 07/27/21 09/06/21 Alber Estrada PA-C [address] [place] [address] Assigned PCP 09/07/21 Maxine Patel CNM [address] [place], [place] [address] Assigned OBGYN Provider 07/25/2207/02 Navid Regalado MD [address] [place] [address]80945 Dermatology 04/30/23 Willow Mcnulty APRN SMELTING ENGINEER [address] [place] [address] Nurse Practitioner Nurse Practitioner Primary Care 06/02/23 Lashae Holt APRN SMELTING ENGINEER 1600 [facility] 101 [place] [address] Nurse Practitioner Pain Medicine 06/02/23 Irma Isaac, TANK TRUCK ENGINE MECHANIC Clinic Long Term Care Social Worker Primary Care - CC 06/08/23 Lamont Marcus MD [address] [address] lead radiation therapist 06/25/23 Irma Isaac, TANK TRUCK ENGINE MECHANIC Lead Long Term Care Social Worker Primary Care - CC 06/29/2306/19 Alber Estrada PA-C [address] [facility] [place] [address] Assigned Pain Medication Provider 07/03/23 08/11/23 Lamont Marcus MD [address] [address] Assigned OBGYN Provider 07/03/2307/16 Esau Monet MD [address], [address] [address] Assigned OBGYN Provider 07/17/23 Ahmet Almaguer MD [address] [place] [address] Assigned Surgical Provider 08/20/23 11/08/23 Liv Olson PA-C [address] [facility] [address] [place] [address] Physician Gray Tender Urology 09/23/23 Eda Duarte MD 420 [facility] 394 [place] [address] Assigned Surgical Provider 11/09/23 12/08/23 Karoline Su, [facility] [address] [place] [address] Assigned Behavioral Health Provider 11/09/23 Navid Regalado MD 9 [place] [address] Assigned Surgical Provider 12/09/23 Cony Cameron RN RN Clinical Product Navigator Primary Care - CC 04/10/24 04/10/24 Chip Crane LSW Clinic Long Term Care Social Worker Primary Care - CC 04/10/24 Caitlin Tarango CNM [address] [place], [place] [address] Steam Distribution Supervisor lead radiation therapist 05/31/24 documented as of this encounter
--- OUTSIDE RECORDS SUMMARY | 2024-06-14 09:57 | XMS_ITS ---
Author Organization [place] Address [address] [place] [address] Care Team Providers Care Hotel Superintendent Name Role Phone Tc Jama MD Unavailable [phone] Alber Estarda PA-C Unavailable [phone] Navid Regalado MD Unavailable [phone] Willow Mcnulty APRN CODING AND REIMBURSEMENT SPECIALIST Unavailable [phone] Lashae Holt COKE CRUSHER OPERATOR CODING AND REIMBURSEMENT SPECIALIST Unavailable + Lamont Marcus MD Unavailable [phone] Esau Monet MD Unavailable [phone] Liv Olson PA-C Unavailable Alber Estrada PA-C Primary Care Provider Karoline Su HOISTING ENGINEER Unavailable +[phone] Navid Regalado MD Unavailable [phone] Caitlin Tarango [facility] Unavailable [phone] Primary Care Care Coordination Status:Declined (Declined) Start date:04/10/2024 End date:04/11/2024 Decline reason:Not interested Overview Patient identified by their health plan for RN Clinical Product Navigator review. Patient resides in a halfway and has a guardian. Patient has had 16 ED visits in the past year and 1 hospital admission; Risk of Hospital Admission or ED Visit is 87%-High. PMHx adjustment disorder with mixed disturbance of emotions and conduct, chromosomal abnormality, learning disability, anxiety, insomnia, aggression with talk of suicide/homicide, developmental delay, JANETH, fatty liver, organic mood disorder,Lyme's disease, urinary urgency/urgency incontinence, RLS, snoring. Care Team: [facility] PCP, Allergy, Urology, Sleep Medicine Referral to primary care - care coordination due to high ED utilization and risk of admission or EDvisit. Continued Care and Services Coordination
--- OUTSIDE RECORDS SUMMARY | 2024-06-14 09:57 | XMS_ITS ---
Author Organization [place] Address [address] [place] [address] Care Team Providers Care Casting Machine Adjuster Name Role Phone Tc Jama MD Unavailable [phone] Alber Estrada PA-C Unavailable Navid Regalado MD Unavailable [phone] Willow Mcnulty APRN CLINICAL OPERATIONS CONSULTANT Unavailable [phone] Lashae Holt PLANT PROPAGATOR CLINICAL OPERATIONS CONSULTANT Unavailable + Lamont Marcus MD Unavailable [phone] Esau Monet MD Unavailable Liv Olson PA-C Unavailable Alber Estrada PA-C Primary Care Provider Karoline Su DRIER BELT CONVEYOR Unavailable [phone] Navid Regalado MD Unavailable [phone] Caitlin Tarango [facility] Unavailable [phone] Clinical Product Navigator (CPN) Status:Closed (Closed) Start date:04/10/2024 End date:04/10/2024 Close reason:Referred to Care Management Services Overview [facility] ED list Continued Care and Services Coordination
== END 2024-06-13 16:13 | disposition home or self-care (01) ==
LOC: AMB 06-14 09:52
PROVIDERS: Visit Provider Family Medicine
DX: M54.9 Dorsalgia, unspecified (principal)
CPT/HCPCS: A0998